=== PATIENT | female | born 1955 | race Caucasian/White ===

== ENCOUNTER 2023-03-11 07:20 | Outpatient (OUT) | payer MEDICARE, OTHER, SELFPAY ==
--- NOTE | 2023-03-11 | ECG_ITS ---
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
[2023-03-11 07:48] LABS: Estimated Average Glucose 123 mg/dL; Glycohemoglobin A1C 5.9 % (4.5-6.2)
--- NOTE | 2023-03-11 08:06 | CA_ITS ---
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1955 Requested By: DARREN ALDANA Order Number: [id number] Reading MD: DARREN ALDANA Interpretive Statements Predominant rhythm is sinus with average rate of 86 bpm Tachydardia - max rate of 192 bpm - 5,203 episodes of PSVT w/ longest duration of 8 beats - longest episode of 8min 51sec w/ rates of 115-133 bpm Bradycardia - min rate of 45 bpm - longest episode of 25min w/ rates 48-58 bpm Ventricular ectopy - 389 total (<1%) - 335 PVC - 54 couplets Patient triggered events: 5 - associated with rates of 132, 127, 125, 101 and 120 bpm - 2 associated with atrial bigeminy Impression: Predominant rhythm is sinus with average rate of 86 bpm Fastest rate of 192 and slowest rate of 45 bpm 335 PVC, 54 couplets Frequent episodes of PSVT w/ longest duration of 8 beats Electronically Signed On 04-02-2023 7:31:42 EDT by DARREN ALDANA
[2023-03-11 08:07] LABS: Chol HDL Ratio 2.5; Cholesterol 231 mg/dL (<=200); HDL Cholesterol 92 mg/dL (40-60); Triglycerides 119 mg/dL (<=150); VLDL CHOLESTEROL 23.8 mg/dL
--- NOTE | 2023-03-11 08:12 | XR_ITS ---
[address] [address] Patient Name: XAVIER NEGRON MRN: [id number] date: 1955 Sex: F Assigned Patient Location: CARD Current Patient Location: CARD Accession/Order Number: [id number] Exam Date: 03/11/2023 08:08 Report Date: 03/11/2023 08:48 At the request of: DARREN ALDANA Procedure: XR chest 2V EXAMINATION: XR chest 2V HISTORY: DYSPNEA ON EXERTION R06.09 COMPARISON: 08/13/22. TECHNIQUE: pa/lat FINDINGS: LUNGS: No significant pulmonary parenchymal abnormalities. VASCULATURE: No increased pulmonary vasculature. PLEURA: No pneumothorax, effusion, or pleural thickening. CARDIAC: No cardiomegaly or cardiac silhouette abnormality. MEDIASTINUM: No visible mass or adenopathy. Aortic atherosclerosis BONES: No fracture or visible bone lesion. OTHER: Negative. IMPRESSION: No acute cardiopulmonary process Electronically authenticated by: TENZIN GENTILE Date: 03/11/2023 08:48
[2023-03-11 11:11] LABS: Total Protein Urine Random 49.3 mg/dL (<=11.9)
[2023-03-11 11:12] LABS: Creatinine Urine Random 240.58 mg/dL (20.00-300.00)
== END 2023-03-11 07:21 | disposition home or self-care (01) ==
LOC: CARD 07:21
PROVIDERS: PCP Internal Medicine; Visit Provider Internal Medicine
DX: R06.09 Other forms of dyspnea (principal); R00.2 Palpitations; I10 Essential (primary) hypertension; R73.01 Impaired fasting glucose; E78.2 Mixed hyperlipidemia; I49.8 Other specified cardiac arrhythmias
CPT/HCPCS: 36415; 71046; 80061; 82570; 83036; 84156; 84443; 93005; 93242

== ENCOUNTER 2023-03-22 12:56 | Outpatient (OUT) | payer MEDICARE, OTHER, SELFPAY ==
--- NOTE | 2023-03-22 13:35 | CA_ITS ---
Patient Name Site Name XAVIER NEGRON [facility] Account No Medical Record Number Age Sex Date Time [id number] [facility]:[id number] F 03/22/2023 13:06 At the Request Of DARREN ALDANA ECHOCARDIOGRAM REPORT PROCEDURE: CA ECHO DOPPLER COMPLETE INDICATIONS: Palpitations, hypertension COMPARISON: None. DESCRIPTION: COMPLETE ECHOCARDIOGRAM Real-time transthoracic echocardiography with 2D, M-mode, spectral and color flow Doppler performed. QUALITY: Technical quality was good. LEFT VENTRICLE: Normal chamber size. Moderate concentric left ventricular hypertrophy. Normal systolic function. LV EF: Normal left ventricular ejection fraction, (>55%). DIASTOLIC: ATRIAL SEPTUM: Visually appears intact. LEFT ATRIUM: Normal chamber size. RIGHT ATRIUM: Normal chamber size. RIGHT VENTRICLE: Normal chamber size. Normal systolic function. TRICUSPID VALVE: Normal mobility and thickness. No stenosis with no regurgitation. MITRAL VALVE: Moderately thickened with decreased mobility. Mild mitral valve stenosis. Moderate mitral annular calcification. Mild mitral regurgitation. Mean gradient 4 mmHg. AORTIC VALVE: Normal trileaflet appearance. Mildly calcified aortic valve. Mildly diminished mobility. Doppler velocity suggests mild aortic valve stenosis. DVI 0.5, DEENA 1.6 cm2. Normal systolic function. No aortic regurgitation. AORTIC ROOT: Normal diameter and appearance. PULMONIC VALVE: Normal thickness and mobility. No stenosis. Trivial regurgitation. PERICARDIUM: No evidence of pericardial effusion. IVC: Collapses with inspirations. PLEURA: CONCLUSION: 1. Moderate concentric left ventricular hypertrophy. Normal left ventricular systolic function. LVEF is 55 to 60%. 2. Normal right ventricular size and systolic function. 3. Mild mitral valve stenosis and regurgitation. 4. Mild aortic valve stenosis. 5. No pericardial effusion. Adult Echocardiography Procedure Report Left Ventricle LVEDD (3.7 - 5.6 cm): 4.40 cm LVESD (2.2 - 4.0 cm): 2.70 cm LVIVS thickness (0.6 - 1.2 cm): 1.27 cm LVPW thickness (0.5 - 1.0 cm): 1.36 cm e': 0.05 m/s E - e': 26.89 LVOT Max Gradient: 3.78 mm[Hg] LVOT Area (cm2): 0.97 m/s Peak Velocity (LVOT): 0.97 m/s Mean Velocity (LVOT): 0.65 m/s LVOT Diameter 1.85 cm Left Atrium LA Volume Index (2D A2C): 32.17 ml/m2 Left Atrium Systolic Dimension: 4.26 cm Mitral Valve Right Ventricle Aorta AO Root Diam: 3.43 cm Aortic Valve AoV Area ([place]): 1.42 cm2, 1.42 cm2 AoV Area (VTI): 1.55 cm2, 1.55 cm2 Peak Velocity(Antegrade Flow): 1.85 m/s Peak Gradient(Antegrade Flow): 13.65 mm[Hg] Mean Velocity(Antegrade Flow): 1.29 m/s Mean Gradient(Antegrade Flow): 7.25 mm[Hg] Velocity Time Integral: 39.68 cm Tricuspid Valve Pulmonic Valve Peak Velocity: 1.06 m/s Peak Gradient: 5.11 mm[Hg], 3.96 mm[Hg] Right Atrium Right Atrium Systolic Pressure: 36.29 ml, 36.29 ml Dictated by: William Gaytan M.D. on 03/22/2023 at 17:59 Approved by: William Gaytan M.D. on 03/22/2023 at 18:05
== END 2023-03-22 12:57 | disposition home or self-care (01) ==
LOC: CARD 12:56
PROVIDERS: PCP Internal Medicine; Visit Provider Internal Medicine
DX: R00.2 Palpitations (principal); I10 Essential (primary) hypertension; R06.09 Other forms of dyspnea; I08.0 Rheumatic disorders of both mitral and aortic valves
CPT/HCPCS: 93306

== ENCOUNTER 2023-03-31 11:08 | Outpatient (OUT) | payer MEDICARE, OTHER, SELFPAY ==
[2023-03-31 12:06] LABS: Basophils Absolute Auto 0.1 10^3/uL (0.0-0.1); Basophils Percent Auto 0.6 % (0.2-2.0); Eosinophils Absolute Auto 0.2 10^3/uL (0.0-0.7); Eosinophils Percent Auto 2.3 % (0.9-7.0); Hematocrit 40.3 % (36.0-48.0); Hemoglobin 13.2 g/dL (12.0-16.0); Immature Granulocytes Abs Auto 0.02 10^3/uL (0.00-0.03); Immature Granulocytes Pct Auto 0.3 % (0.0-0.5); Lymphocytes Absolute Auto 1.8 10^3/uL (1.2-3.8); Lymphocytes Percent Auto 22.7 % (20.5-60.0); Mean Corpuscular HGB Conc 32.8 g/dL (29.9-35.2); Mean Corpuscular Hemoglobin 29.8 pg (26.7-34.0); Mean Platelet Volume 12.3 fL (9.5-13.5); Monocytes Absolute Auto 0.7 10^3/uL (0.3-0.8); Monocytes Percent Auto 9.3 % (1.7-12.0); Neutrophils Percent Auto 64.8 % (43.0-75.0); Platelet Count 250 10^3/uL (150-450); Red Blood Count 4.43 10^6/uL (4.20-5.40); Red Cell Distribution Width 12.9 % (11.0-15.0); White Blood Count 7.7 10^3/uL (4.0-11.0)
[2023-03-31 12:47] LABS: Erythrocyte Sedimentation Rate 23 mm/hr (<=30)
[2023-03-31 14:35] LABS: Alanine Aminotransferase 31 U/L (14-59); Albumin Globulin Ratio 0.9; Albumin Level 3.4 g/dL (3.4-5.0); Alkaline Phosphatase 72 U/L (46-116); Aspartate Amino Transferase 21 U/L (15-37); Bilirubin Direct 0.1 mg/dL (0.0-0.2); Bilirubin Total 0.4 mg/dL (0.2-1.0); Estimated GFR (African America 54 (>=60); Estimated GFR (Non-African Ame 45 (>=60); Globulin 3.8 g/dL; Total Protein 7.2 g/dL (6.4-8.2)
== END 2023-03-31 11:09 | disposition home or self-care (01) ==
LOC: LAB 11:08
PROVIDERS: PCP Internal Medicine; Visit Provider Internal Medicine Rheumatology
DX: M05.79 Rheumatoid arthritis with rheumatoid factor of multiple sites without organ or systems involvement (principal); Z79.899 Other long term (current) drug therapy
CPT/HCPCS: 36415; 80076; 82565; 85025; 85652

== ENCOUNTER 2023-04-02 14:56 | Outpatient (OUT) | payer MEDICARE, OTHER, SELFPAY ==
[2023-04-02 15:39] LABS: Thyroid Stimulating Hormone 3.396 uIU/mL (0.358-3.740)
== END 2023-04-02 14:57 | disposition home or self-care (01) ==
LOC: LAB 14:56
PROVIDERS: PCP Internal Medicine; Visit Provider Internal Medicine
DX: R00.0 Tachycardia, unspecified (principal); M05.79 Rheumatoid arthritis with rheumatoid factor of multiple sites without organ or systems involvement; Z79.899 Other long term (current) drug therapy
CPT/HCPCS: 36415; 84443

== ENCOUNTER 2023-06-01 06:34 | Outpatient (OUT) | payer MEDICARE, OTHER, SELFPAY ==
[2023-06-01 07:30] LABS: Basophils Percent Auto 0.6 % (0.2-2.0); Eosinophils Absolute Auto 0.2 10^3/uL (0.0-0.7); Eosinophils Percent Auto 3.6 % (0.9-7.0); Hematocrit 41.9 % (36.0-48.0); Hemoglobin 13.6 g/dL (12.0-16.0); Immature Granulocytes Abs Auto 0.02 10^3/uL (0.00-0.03); Immature Granulocytes Pct Auto 0.3 % (0.0-0.5); Lymphocytes Absolute Auto 1.7 10^3/uL (1.2-3.8); Lymphocytes Percent Auto 25.8 % (20.5-60.0); Mean Corpuscular HGB Conc 32.5 g/dL (29.9-35.2); Mean Corpuscular Hemoglobin 30.5 pg (26.7-34.0); Mean Corpuscular Volume 93.9 fL (81.0-99.0); Mean Platelet Volume 12.9 fL (9.5-13.5); Monocytes Absolute Auto 0.8 10^3/uL (0.3-0.8); Monocytes Percent Auto 11.2 % (1.7-12.0); Neutrophils Absolute Auto 3.9 10^3/uL (1.4-6.5); Neutrophils Percent Auto 58.5 % (43.0-75.0); Platelet Count 200 10^3/uL (150-450); Red Blood Count 4.46 10^6/uL (4.20-5.40); Red Cell Distribution Width 13.2 % (11.0-15.0); White Blood Count 6.7 10^3/uL (4.0-11.0)
[2023-06-01 07:40] LABS: Erythrocyte Sedimentation Rate 17 mm/hr (<=30)
[2023-06-01 08:33] LABS: Alanine Aminotransferase 26 U/L (14-59); Albumin Globulin Ratio 1.1; Albumin Level 3.6 g/dL (3.4-5.0); Alkaline Phosphatase 53 U/L (46-116); Aspartate Amino Transferase 18 U/L (15-37); Bilirubin Direct 0.1 mg/dL (0.0-0.2); Bilirubin Total 0.4 mg/dL (0.2-1.0); Estimated GFR (African America 52 (>=60); Estimated GFR (Non-African Ame 43 (>=60); Globulin 3.2 g/dL; Total Protein 6.8 g/dL (6.4-8.2)
== END 2023-06-01 06:35 | disposition home or self-care (01) ==
PROVIDERS: PCP Internal Medicine; Visit Provider Internal Medicine Rheumatology
DX: M05.79 Rheumatoid arthritis with rheumatoid factor of multiple sites without organ or systems involvement (principal); Z79.899 Other long term (current) drug therapy
CPT/HCPCS: 36415; 80076; 82565; 85025; 85652

== ENCOUNTER 2023-07-01 07:54 | Outpatient (OUT) | payer MEDICARE, OTHER, SELFPAY ==
--- NOTE | 2023-07-01 07:56 | CA_ITS ---
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1955 Requested By: DARREN ALDANA Order Number: [id number] Reading MD: DARREN ALDANA Interpretive Statements Predominant rhythm is sinus with average rate of 70 bpm Tachycardia - max rate of 157 bpm - 1166 episodes of PSVT with longest duration of 8 beats - longest episode of 5sec w/ rates between 108-118 bpm Bradycardia - min rate of 46 bpm - longest episode of 17min 8sec with rates between 46-54 bpm Ventricular ectopy - 465 PVC Patient triggered events: none Impression: Predominant rhythm is sinus with average rate of 70 bpm Fastest rate of 157 and slowest rate of 46 bpm 465 PVC Frequent PSVT w/ longest duration of 8 beats Electronically Signed On 07-14-2023 7:11:47 EDT by DARREN ALDANA
[2023-07-01 08:44] LABS: Thyroid Stimulating Hormone 2.321 uIU/mL (0.358-3.740)
== END 2023-07-01 07:55 | disposition home or self-care (01) ==
LOC: CARD 07:55
PROVIDERS: PCP Internal Medicine; Visit Provider Internal Medicine
DX: I47.10 Supraventricular tachycardia, unspecified (principal)
CPT/HCPCS: 36415; 84443; 93242

== ENCOUNTER 2023-07-26 15:16 | Outpatient (OUT) | payer MEDICARE, OTHER, SELFPAY ==
[2023-07-26 15:42] LABS: Basophils Percent Auto 0.5 % (0.2-2.0); Eosinophils Absolute Auto 0.4 10^3/uL (0.0-0.7); Eosinophils Percent Auto 4.5 % (0.9-7.0); Hematocrit 39.8 % (36.0-48.0); Immature Granulocytes Abs Auto 0.02 10^3/uL (0.00-0.03); Immature Granulocytes Pct Auto 0.3 % (0.0-0.5); Lymphocytes Percent Auto 25.1 % (20.5-60.0); Mean Corpuscular HGB Conc 32.7 g/dL (29.9-35.2); Mean Corpuscular Hemoglobin 30.1 pg (26.7-34.0); Mean Corpuscular Volume 92.1 fL (81.0-99.0); Mean Platelet Volume 12.2 fL (9.5-13.5); Neutrophils Absolute Auto 4.6 10^3/uL (1.4-6.5); Neutrophils Percent Auto 57.6 % (43.0-75.0); Platelet Count 223 10^3/uL (150-450); Red Blood Count 4.32 10^6/uL (4.20-5.40); Red Cell Distribution Width 12.8 % (11.0-15.0); White Blood Count 7.9 10^3/uL (4.0-11.0)
[2023-07-26 15:46] LABS: Erythrocyte Sedimentation Rate 19 mm/hr (<=30)
[2023-07-26 16:01] LABS: Alanine Aminotransferase 22 U/L (14-59); Albumin Globulin Ratio 0.9; Albumin Level 3.4 g/dL (3.4-5.0); Alkaline Phosphatase 58 U/L (46-116); Aspartate Amino Transferase 12 U/L (15-37); Bilirubin Direct <0.1 mg/dL (0.0-0.2); Bilirubin Total 0.2 mg/dL (0.2-1.0); Estimated GFR (African America 56 (>=60); Estimated GFR (Non-African Ame 46 (>=60); Globulin 3.6 g/dL
== END 2023-07-26 15:17 | disposition home or self-care (01) ==
LOC: LAB 15:20
PROVIDERS: PCP Internal Medicine; Visit Provider Internal Medicine Rheumatology
DX: M05.79 Rheumatoid arthritis with rheumatoid factor of multiple sites without organ or systems involvement (principal); Z79.899 Other long term (current) drug therapy
CPT/HCPCS: 36415; 80076; 82565; 85025; 85652

== ENCOUNTER 2023-08-17 11:36 | Outpatient (OUT) | payer MEDICARE, OTHER, SELFPAY ==
--- NOTE | 2023-08-17 11:59 | XR_ITS ---
[address] [address] Patient Name: XAVIER NEGRON MRN: [id number] date: 1955 Sex: F Assigned Patient Location: [facility] Current Patient Location: Accession/Order Number: [id number] Exam Date: 08/17/2023 11:54 Report Date: 08/18/2023 01:34 At the request of: DARREN ALDANA Procedure: XR foot RT min 3V PROCEDURE: XR foot RT min 3V HISTORY: Contusion Right Foot S90.31XA ; second and third toe injury COMPARISON: XR foot bilateral 06/18/2021 FINDINGS: BONES:Nondisplaced fractures involving the base of the second proximal phalanx and third proximal phalanx with intra-articular extension. Stable chronic changes and angulation/flexion of the toes. Moderate degenerative changes of the first tarsal-metatarsal joint. Large calcaneal plantar spur. SOFT TISSUES:No visible soft tissue swelling. EFFUSION:None visible. OTHER: Negative. XR/XR foot RT min 3V IMPRESSION: 1. Acute nondisplaced fractures of the second third proximal phalanges with extension into the proximal articular surfaces. 2. Grossly stable chronic degenerative changes. Electronically authenticated by: JERROD DICKSON Date: 08/18/2023 01:34
== END 2023-08-17 11:37 | disposition home or self-care (01) ==
LOC: RAD 11:38
PROVIDERS: PCP Internal Medicine; Visit Provider Internal Medicine
DX: S90.31XA Contusion of right foot, initial encounter (principal); S92.511A Displaced fracture of proximal phalanx of right lesser toe(s), initial encounter for closed fracture
CPT/HCPCS: 73630

== ENCOUNTER 2023-09-21 12:43 | Outpatient (OUT) | payer MEDICARE, OTHER, SELFPAY ==
--- OUTSIDE RECORDS SUMMARY | 2023-09-21 12:48 | XMS_ITS | CCD ---
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 [Hypo-osmolality and hyponatremia] Onset: 2 Episodic Fracture of lower limb (1 source) Nondisplaced fracture of proximal phalanx of right lesser toe(s), initial encounter for closed fracture Episodic Genitourinary symptoms and ill-defined conditions (3 sources) Genuine stress incontinence; Translations: [Stress incontinence (female) (male)] Chronic Hypertension with complications and secondary hypertension (11 sources) Hypertensive chronic kidney disease with stage 1 through stage 4 chronic kidney disease, or unspecified chronic kidney disease; Translations: [Benign hypertensive renal disease] Onset: 8 Chronic Immunizations and screening for infectious disease (7 sources) Raised antibody titer; Translations: [Contact with and (suspected) exposure to other viral communicable diseases] Onset: 3 Resolved: 1 Episodic Intestinal infection (6 sources) Enterocolitis due to Clostridium difficile, not specified as recurrent; Translations: [Clostridial gastroenteritis] Onset: 2 Episodic Joint disorders and dislocations; trauma-related (3 sources) 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; Translations: [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] Onset: 8 Chronic Menopausal disorders (3 sources) Primary ovarian failure; Translations: [Other primary ovarian failure] Onset: 7 Chronic Miscellaneous mental health disorders (3 sources) Primary insomnia; Translations: [Primary insomnia] Chronic Osteoarthritis (20 sources) Arthritis of left knee; Translations: [Unilateral primary osteoarthritis, left knee] Onset: 9 Resolved: 2 Chronic Osteoporosis (20 sources) Osteoporosis; Translations: [Other osteoporosis without current pathological fracture] Onset: 2 Resolved: 2 Chronic Other aftercare (20 sources) Patient encounter status; Translations: [Aftercare following joint replacement surgery] Chronic Other aftercare (10 sources) Aftercare following joint replacement surgery; Translations: [AFTERCARE FOLLOW JNT REPLACE SURG] Onset: 2 Resolved: 2 Chronic Other aftercare (20 sources) Long-term current use of drug therapy; Translations: [Other exterminator termite (current) drug therapy] Episodic Other aftercare (3 sources) Other fpc (current) drug therapy; Translations: [OTH GASTROENTEROLOGY MANAGER CURRENT DRUG THERAPY] Onset: 2 Resolved: 2 Episodic Other aftercare (3 sources) High risk drug monitoring status; Translations: [halfway (current) use of opiate analgesic] Episodic Other and ill-defined heart disease (1 source) Intracardiac thrombosis, not elsewhere classified; Translations: [Intracardiac thrombosis, not elsewhere classified] Onset: 3 Chronic Other bone disease and musculoskeletal deformities (3 sources) Other specified disorders of bone density and structure, left thigh; Translations: [Other specified disorders of bone density and structure, left thigh] Episodic Other circulatory disease (3 sources) Raynaud's disease; Translations: [Raynaud's syndrome without gangrene] Chronic Other circulatory disease (5 sources) Other disorder of circulatory system Episodic Other connective tissue disease (20 sources) Artificial knee joint present; Translations: [Presence of left artificial knee joint] Chronic Other connective tissue disease (20 sources) History of total knee arthroplasty; Translations: [Presence of left artificial knee joint] 03-02-2022 Chronic Other connective tissue disease (14 sources) Presence of left artificial knee joint; Translations: [Knee joint replacement] Onset: 2 Resolved: 2 Chronic Other connective tissue disease (1 source) Presence of unspecified artificial knee joint; Translations: [PRESENCE UNS ARTIFICIAL KNEE JOINT] Onset: 2 Chronic Other connective tissue disease (2 sources) Other specified soft tissue disorders Episodic Other connective tissue disease (1 source) Pain in left arm Episodic Other connective tissue disease (1 source) Personal history of other diseases of the musculoskeletal system and connective tissue Episodic Other connective tissue disease (3 sources) Enthesopathy; Translations: [Other enthesopathies, not elsewhere classified] Episodic Other connective tissue disease (3 sources) Tibialis tendinitis; Translations: [Posterior tibial tendinitis, left leg] Episodic Other connective tissue disease (3 sources) Ganglion cyst of left wrist; Translations: [Ganglion, left wrist] Episodic Other gastrointestinal disorders (3 sources) Irritable bowel syndrome with diarrhea; Translations: [Irritable bowel syndrome with diarrhea] Chronic Other gastrointestinal disorders (20 sources) Dysphagia; Translations: [Dysphagia, unspecified] Episodic Other gastrointestinal disorders (3 sources) Diarrhea; Translations: [Diarrhea, unspecified] Episodic Other hematologic conditions (1 source) Elevated erythrocyte sedimentation rate; Translations: [ELEVATED ERYTHROCYTE SED RATE] Onset: 3 Episodic Other hematologic conditions (3 sources) ESR raised; Translations: [Elevated erythrocyte sedimentation rate] Episodic Other injuries and conditions due to external causes (3 sources) History of fall; Translations: [History of falling] Episodic Other liver diseases (20 sources) Steatosis of liver; Translations: [Fatty (change of) liver, not elsewhere classified] Chronic Other liver diseases (5 sources) Fatty (change of) liver, not elsewhere classified; Translations: [Fatty (change of) liver, not elsewhere classified] Onset: 3 Chronic Other lower respiratory disease (20 sources) Dyspnea on exertion; Translations: [Other forms of dyspnea] Episodic Other lower respiratory disease (2 sources) Other forms of dyspnea Episodic Other nervous system disorders (20 sources) Carpal tunnel syndrome of left wrist; Translations: [Carpal tunnel syndrome, left upper limb] Chronic Other nervous system disorders (1 source) Carpal tunnel syndrome, left upper limb Chronic Other nervous system disorders (3 sources) Carpal tunnel syndrome; Translations: [Carpal tunnel syndrome, bilateral upper limbs] Chronic Other non-epithelial cancer of skin (3 sources) Basal cell carcinoma of nose; Translations: [Basal cell carcinoma of skin of nose] Episodic Other non-traumatic joint disorders (1 source) Pain in left shoulder Episodic Other non-traumatic joint disorders (1 source) Pain in left wrist Episodic Other non-traumatic joint disorders (3 sources) Other specified joint disorders, right ankle and foot; Translations: [Other specified joint disorders, right ankle and foot] Episodic Other nutritional; endocrine; and metabolic disorders (20 sources) Body mass index 30+ - obesity; Translations: [Obesity, unspecified] Onset: 7 Chronic Other nutritional; endocrine; and metabolic disorders (7 sources) Obesity, unspecified; Translations: [Obesity, unspecified classification, unspecified obesity type, unspecified whether serious comorbidity present] Chronic Other nutritional; endocrine; and metabolic disorders (20 sources) Obesity; Translations: [Obesity, unspecified] Chronic Other nutritional; endocrine; and metabolic disorders (20 sources) Obese class II; Translations: [Body mass index 37.0-37.9, adult] Onset: 7 Chronic Other nutritional; endocrine; and metabolic disorders (20 sources) Body mass index 40+ - severely obese; Translations: [Body Mass Index 40.0-44.9, adult] Onset: 6 Chronic Other nutritional; endocrine; and metabolic disorders (20 sources) Morbid obesity; Translations: [Morbid (severe) obesity due to excess calories] Chronic Other nutritional; endocrine; and metabolic disorders (7 sources) Morbid (severe) obesity due to excess calories; Translations: [Obesity, Class II, BMI 35-39.9] Chronic Other nutritional; endocrine; and metabolic disorders (2 sources) Body mass index (BMI) 37.0-37.9, adult Chronic Other nutritional; endocrine; and metabolic disorders (14 sources) Severe obesity; Translations: [Morbid (severe) obesity due to excess calories] Chronic Other nutritional; endocrine; and metabolic disorders (4 sources) Body mass index (BMI) 35.0-35.9, adult Chronic Other nutritional; endocrine; and metabolic disorders (8 sources) Obese class I; Translations: [Body mass index (BMI) 33.0-33.9, adult] Chronic Other nutritional; endocrine; and metabolic disorders (1 source) Body mass index (BMI) 33.0-33.9, adult Chronic Other screening for suspected conditions (not mental disorders or infectious disease) (11 sources) Patient encounter status; Translations: [Encounter for screening for malignant neoplasm of colon] 06-15-2019 Episodic Other skin disorders (4 sources) Disorder of the skin and subcutaneous tissue, unspecified Episodic Other skin disorders (2 sources) Localized swelling, mass and lump, right upper limb Episodic Other skin disorders (3 sources) Generalized hyperhidrosis; Translations: [Generalized hyperhidrosis] Episodic Other skin disorders (3 sources) Vesicular eczema of hands and/or feet; Translations: [Dyshidrosis [pompholyx]] Episodic Other upper respiratory disease (3 sources) Allergic rhinitis due to pollen; Translations: [Allergic rhinitis due to pollen] Chronic Residual codes; unclassified (11 sources) Sleep apnea; Translations: [Sleep apnea, unspecified] 03-02-2022 Chronic Residual codes; unclassified (3 sources) Sleep apnea, unspecified; Translations: [Obstructive sleep apnea (adult)(pediatric)] 03-03-2022 Chronic Residual codes; unclassified (20 sources) Obstructive sleep apnea syndrome; Translations: [Obstructive sleep apnea (adult) (pediatric)] Onset: 8 Chronic Residual codes; unclassified (10 sources) Obstructive sleep apnea (adult) (pediatric); Translations: [Obstructive sleep apnea (adult) (pediatric)] Chronic Residual codes; unclassified (2 sources) Continuous positive airway pressure ventilation treatment; Translations: [Dependence on other enabling machines and devices] Chronic Rheumatoid arthritis and related disease (20 sources) Rheumatoid arthritis of right wrist; Translations: [Rheumatoid arthritis with rheumatoid factor of right wrist without organ or systems involvement] Onset: 0 Chronic Spondylosis; intervertebral disc disorders; other back problems (20 sources) Cervical spondylosis without myelopathy; Translations: [Spondylosis without myelopathy or radiculopathy, cervical region] Chronic Substance-related disorders (6 sources) Tobacco user; Translations: [Nicotine dependence, cigarettes, in remission] Onset: 6 Resolved: 1 Chronic Superficial injury; contusion (2 sources) Contusion of right foot, initial encounter; Translations: [Abrasion, right lesser toe(s), initial encounter] Episodic Unclassified (1 source) CONTACT W/AND (SUSP) EXPOS COVID-19; Translations: [CONTACT W/AND (SUSP) EXPOS COVID-19] Onset: 2 Unclassified (1 source) Morbid (severe) obesity due to excess calories; Translations: [Morbid (severe) obesity due to excess calories] Onset: 4 Unclassified (1 source) Aftercare following joint replacement surgery; Translations: [Aftercare following joint replacement surgery] Onset: 3 Unclassified (1 source) Rheumatoid arthritis with rheumatoid factor of multiple sites without organ or systems involvement; Translations: [Rheumatoid arthritis with rheumatoid factor of multiple sites without organ or systems involvement] Onset: 3 Unclassified (1 source) Contusion of left upper arm, initial encounter; Translations: [Contusion of left upper arm, initial encounter] Onset: 3 Unclassified (1 source) Disorder of the skin and subcutaneous tissue, unspecified; Translations: [Disorder of the skin and subcutaneous tissue, unspecified] Onset: 3 Unclassified (1 source) Occlusion and stenosis of bilateral carotid arteries; Translations: [Occlusion and stenosis of bilateral carotid arteries] Onset: 3 Past or Other Problems Problem Classification Problem Date Documented Da te Episodic/Chronic Abdominal pain (4 sources) Unspecified abdominal pain; Translations: [Right lower quadrant pain] Onset: 05-14-2016 Episodic Acute bronchitis (3 sources) Acute bronchitis; Translations: [Acute bronchitis, unspecified] Onset: 08-20-2014 Episodic Allergic reactions (3 sources) Allergic contact dermatitis due to plants, except food; Translations: [Allergic contact dermatitis due to plants, except food] Onset: 03-25-2018 Episodic Bacterial infection; unspecified site (3 sources) Bacterial infectious disease; Translations: [Bacterial infection, unspecified, in conditions classified elsewhere and of unspecified site] Onset: 07-09-2017 Episodic Chronic kidney disease (8 sources) Chronic kidney disease; Translations: [CHRONIC KIDNEY DISEASE STAGE 3A] Onset: 08-20-2022 Complications of surgical procedures or medical care (9 sources) Infection following a procedure, other surgical site, initial encounter; Translations: [Postoperative infection] Onset: 03-15-2018 Resolved: 09-08-2022 Episodic Esophageal disorders (2 sources) Esophageal disorders Genitourinary symptoms and ill-defined conditions (1 source) Proteinuria, unspecified; Translations: [Proteinuria, unspecified] Onset: 02-03-2023 Episodic Joint disorders and dislocations; trauma-related (6 sources) Current tear of medial cartilage AND/OR meniscus of knee; Translations: [Peripheral tear of medial meniscus, current injury, left knee, initial encounter] Onset: 07-08-2018 Episodic Malaise and fatigue (4 sources) Other fatigue; Translations: [Fatigue] Onset: 08-20-2022 Resolved: 09-08-2022 Episodic Nausea and vomiting (3 sources) Nausea and vomiting; Translations: [Nausea with vomiting, unspecified] Resolved: 09-08-2022 Episodic Nonspecific chest pain (3 sources) Chest pain; Translations: [Other chest pain] Resolved: 11-30-2021 Episodic Other aftercare (3 sources) Encounter for other orthopedic aftercare; Translations: [Encounter for other orthopedic aftercare] Resolved: 11-30-2021 Episodic Other connective tissue disease (3 sources) Bicipital tenosynovitis; Translations: [Bicipital tenosynovitis] Onset: 05-22-2013 Episodic Other connective tissue disease (3 sources) Pain in right foot; Translations: [Pain in right foot] Resolved: 09-08-2022 Episodic Other connective tissue disease (3 sources) Impingement syndrome of left shoulder region; Translations: [Impingement syndrome of left shoulder] Resolved: 11-30-2021 Episodic Other connective tissue disease (3 sources) Nontraumatic rupture of rotator cuff of left shoulder; Translations: [Unspecified rotator cuff tear or rupture of left shoulder, not specified as traumatic] Onset: 05-22-2013 Episodic Other connective tissue disease (3 sources) Synovitis and tenosynovitis; Translations: [Synovitis and tenosynovitis, unspecified] Onset: 05-08-2015 Episodic Other gastrointestinal disorders (1 source) Diarrhea, unspecified; Translations: [DIARRHEA UNSPECIFIED] Onset: 08-20-2022 Episodic Other injuries and conditions due to external causes (3 sources) Other injury of unspecified body region, subsequent encounter; Translations: [Other injury of unspecified body region, subsequent encounter] Onset: 07-09-2017 Episodic Other non-traumatic joint disorders (1 source) Pain in left knee Onset: 11-20-2021 Resolved: 11-20-2021 Episodic Other non-traumatic joint disorders (9 sources) Shoulder joint pain; Translations: [Pain in joint, shoulder region] Onset: 05-22-2013 Resolved: 11-30-2021 Episodic Other non-traumatic joint disorders (3 sources) Arthralgia of the lower leg; Translations: [Pain in joint, lower leg] Onset: 08-12-2018 Episodic Other non-traumatic joint disorders (3 sources) Pain in wrist; Translations: [Pain in left wrist] Resolved: 11-30-2021 Episodic Other non-traumatic joint disorders (3 sources) Arthralgia of the ankle and/or foot; Translations: [Pain in unspecified ankle and joints of unspecified foot] Onset: 01-21-2015 Episodic Other skin disorders (3 sources) Localized swelling, mass and lump, left upper limb; Translations: [Localized swelling, mass and lump, left upper limb] Onset: 06-21-2023 Episodic Other skin disorders (1 source) Generalized hyperhidrosis; Translations: [GENERALIZED HYPERHIDROSIS] Onset: 08-20-2022 Episodic Other upper respiratory infections (3 sources) Acute sinusitis; Translations: [Acute sinusitis, unspecified] Onset: 08-29-2013 Episodic Otitis media and related conditions (3 sources) Otitis media; Translations: [Otitis media, unspecified, right ear] Onset: 08-29-2013 Episodic Residual codes; unclassified (1 source) Acquired absence of both cervix and uterus; Translations: [ACQUIRED ABSENCE BOTH CERVIX AND UTERUS] Onset: 05-26-2022 Episodic Screening and history of mental health and substance abuse codes (4 sources) Personal history of nicotine dependence; Translations: [History of tobacco use] Onset: 06-30-2017 Episodic Skin and subcutaneous tissue infections (6 sources) Cellulitis and abscess of trunk; Translations: [Cellulitis and abscess of trunk] Onset: 07-09-2017 Episodic Spondylosis; intervertebral disc disorders; other back problems (3 sources) Low back pain; Translations: [Low back pain, unspecified] Resolved: 05-21-2020 Episodic Sprains and strains (4 sources) Strain of muscle, fascia and tendon of other parts of biceps, left arm, initial encounter; Translations: [Strain of muscle of right shoulder] Onset: 03-01-2019 Episodic Unclassified (1 source) Paroxysmal sinus tachycardia I47.19 Results Test Name Value Interpretation Reference Range Facility XR wrist LT min 3V*on 2022 XR wrist LT min 3V* [facility] [employer] Other XR wrist LT min 3V* [facility] [employer] Other XR wrist LT min 3V* [address] [place] [address] [employer] Other XR wrist LT min 3V* [place] [address] [facility] [employer] Other XR wrist LT min 3V* XRay Report [facility] [employer] Other XR wrist LT min 3V* Signed [facility] Other XR wrist LT min 3V* Patient: Reba Gregory MR#: [id number] [facility] Other XR wrist LT min 3V* : 1955 Acct:[id number] [facility] Other XR wrist LT min 3V* Age/Sex: 67 / F ADM Date: 03/03/23 [facility] Other XR wrist LT min 3V* Loc: [facility] Room: [facility] Other XR wrist LT min 3V* Attending Dr: Kiana Munson MD [facility] Other XR wrist LT min 3V* Copies to: Kiana Munson MD [facility] Other XR wrist LT min 3V* Ordering Provider: Kiana Munson MD [facility] Other XR wrist LT min 3V* Date of Service: 03/03/23 [facility] Other XR wrist LT min 3V* XR/XR wrist LT min 3V*: Wrist arthritis;Mass of left hand [facility] Other XR wrist LT min 3V* LEFT WRIST - 4 views [facility] Other XR wrist LT min 3V* CLINICAL HISTORY: Left wrist pain for months. Possible cyst ulnar aspect of left hand. [facility] Other XR wrist LT min 3V* COMPARISON: None [facility] Other XR wrist LT min 3V* FINDINGS: [facility] Other XR wrist LT min 3V* No focal soft tissue abnormality is seen. No acute bony process is noted. There is widening of the [facility] Other XR wrist LT min 3V* scapholunate space with SLAC wrist deformity. Cystic changes are noted involving the capitate and [facility] Other XR wrist LT min 3V* hamate bones. No bony erosions. Moderate degenerative changes are noted involving the CMC joint of [facility] Other XR wrist LT min 3V* the thumb. [facility] Other XR wrist LT min 3V* XR/XR wrist LT min 3V* [facility] Other XR wrist LT min 3V* IMPRESSION: [employer] Other XR wrist LT min 3V* WIDENING OF THE SCAPHOLUNATE SPACE WITH SLAC WRIST DEFORMITY. NO ACUTE BONY PROCESS. [facility] Other XR wrist LT min 3V* DEGENERATIVE CHANGES, WORST AT THE CMC JOINT OF THE THUMB. [facility] Other XR wrist LT min 3V* Impression dictated by: Dave Espana Jr., D.OShannon03/03/2023 11:50 AM [facility] Other XR wrist LT min 3V* Dictation Location: [facility]--12 [facility] Other XR wrist LT min 3V* Transcribed By: PWS 03/03/23 1150 [facility] Other XR wrist LT min 3V* Dictated By: Dave Espana Jr, DO 03/03/23 1147 [facility] Other XR wrist LT min 3V* Signed By: [facility] Other XR wrist LT min 3V* 03/03/23 1150 No rt [employer] Other XR wrist LT min 3V* [facility] [place] [address] [place] [address] XRay Report Signed Patient: Reba Gregory MR#: [id number] : 1955 Acct:[id number] Age/Sex: 67 / F ADM Date: 03/03/23 [place] [facility] [place] [facility] Attending Dr: Kiana Munson MD Copies to: Kiana Munson MD Ordering Provider: Kiana Munson MD Date of Service: 03/03/23 XR/XR wrist LT min 3V*: Wrist arthritis;Mass of left hand LEFT WRIST - 4 views CLINICAL HISTORY: Left wrist pain for months. Possible cyst ulnar aspect of left hand. COMPARISON: None FINDINGS: No focal soft tissue abnormality is seen. No acute bony process is noted. There is widening of the scapholunate space with SLAC wrist deformity. Cystic changes are noted involving the capitate and hamate bones. No bony erosions. Moderate degenerative changes are noted involving the CMC joint of the thumb. XR/XR wrist LT min 3V* IMPRESSION: WIDENING OF THE SCAPHOLUNATE SPACE WITH SLAC WRIST DEFORMITY. NO ACUTE BONY PROCESS. DEGENERATIVE CHANGES, WORST AT THE CMC JOINT OF THE THUMB. Impression dictated by: Dave Espana Jr., D.OShannon03/03/2023 11:50 AM Dictation Location: [place] [address] Transcribed By: [facility] 03/03/23 1150 Dictated By: Dave Espana Jr, DO 03/03/23 1147 Signed By: 03/03/23 1150 Normal [facility] XR knee LT 2Von 02-17-2023 XR knee LT 2V [facility] [place] [address] [place] [address] XRay Report Signed Patient: Reba Gregory MR#: [id number] : 1955 Acct:[id number] Age/Sex: 67 / F ADM Date: 02/17/23 [place] [facility] [place]: [facility] Attending Dr: Nabor Nelson II, MD Copies to: Nabor Nelson MD Ordering Provider: Nabor Nelson MD Date of Service: 02/17/23 XR/XR knee LT 2V: Aftercare following joint replacement surgery;Presence of le 2 views left knee plain film COMPARISON: 05/28/2022 HISTORY: Status post left total knee arthroplasty ACUTE FINDINGS: None DEGENERATIVE CHANGE: Unremarkable SOFT TISSUE FINDINGS: Unremarkable JOINT EFFUSION: None POSTOP CHANGES: No hardware failure or loosening. BONE MINERALIZATION: Adequate XR/XR knee LT 2V IMPRESSION: Stable left knee arthroplasty Impression dictated by: Rome Guerra M.D.02/17/2023 1:58 PM Dictation Location: [facility]--03 Transcribed By: [facility] 02/17/23 1358 Dictated By: Rome Guerra DO 02/17/23 1357 Signed By: 02/17/23 1358 [facility] XR knee LT 2V [facility] [employer] Other XR knee LT 2V [facility] [employer] Other XR knee LT 2V [address] [place] [address] [employer] Other XR knee LT 2V [address] [employer] Other XR knee LT 2V XRay Report [facility] [employer] Other XR knee LT 2V Signed [facility] Other XR knee LT 2V Patient: Reba Gregory MR#: [id number] [place] [employer] Other XR knee LT 2V : 1955 Acct:[id number] [facility] Other XR knee LT 2V Age/Sex: 67 / F ADM Date: 02/17/23 [facility] Other XR knee LT 2V [place] [facility] [place]: [facility] Other XR knee LT 2V Attending Dr: Nabor Nelson II, MD [facility] Other XR knee LT 2V Copies to: Nabor Nelson MD [facility] Other XR knee LT 2V Ordering Provider: Nabor Nelson MD [facility] Other XR knee LT 2V Date of Service: 02/17/23 [facility] Other XR knee LT 2V XR/XR knee LT 2V: Aftercare following joint replacement surgery;Presence [facility] Other XR knee LT 2V of le [facility] Other XR knee LT 2V 2 views left knee plain film [facility] Other XR knee LT 2V COMPARISON: 05/28/2022 [facility] Other XR knee LT 2V HISTORY: Status post left total knee arthroplasty [facility] Other XR knee LT 2V ACUTE FINDINGS: None [facility] [employer] Other XR knee LT 2V DEGENERATIVE CHANGE: Unremarkable [facility] Other XR knee LT 2V SOFT TISSUE FINDINGS: Unremarkable [facility] Other XR knee LT 2V JOINT EFFUSION: None N [employer] Other XR knee LT 2V POSTOP CHANGES: No hardware failure or loosening. [facility] Other XR knee LT 2V BONE MINERALIZATION: Adequate [facility] Other XR knee LT 2V XR/XR knee LT 2V [facility] Other XR knee LT 2V IMPRESSION: Stable left knee arthroplasty [facility] Other XR knee LT 2V Impression dictated by: Rome Guerra M.D.02/17/2023 1:58 PM [employer] [facility] Other XR knee LT 2V Dictation Location: [facility] [employer] [facility] Other XR knee LT 2V Transcribed By: PWS 02/17/23 [facility] Other XR knee LT 2V Dictated By: Rome Guerra DO 02/17/23 [facility] Other XR knee LT 2V Signed By: [facility] Other XR knee LT 2V 02/17/23 [facility] [employer] Other Automated epithelial cells c ount in urine sediment (number/area)Ordered By: Nabor Wilson on 02-03-2023 Epithelial cells Auto (Urine sed) [#/Area] 0-1 [HPF] 0-2 [facility] Automated erythrocytes count in urine sediment (number/area)Ordered By: Nabor Wilson on 02-03-2023 RBC Auto (Urine sed) [#/Area] 0-1 [HPF] 0-4 [facility] Automated leukocytes count i n urine sediment (number/area)Ordered By: Nabor Wilson on 02-03-2023 WBC Auto (Urine sed) [#/Area] 0-1 [HPF] 0-4 [facility] Automated urine hyaline cast s count (number/volume)Ordered By: Nabor Wilson on 02-03-2023 Hyaline casts Auto (U) [#/Vol] None seen [LPF] 0-1 [facility] Bilirubin Test strip Ql (U)O rdered By: Nabor Wilson on 02-03-2023 Bilirubin Ql (U) Negative Negative [facility] Calcium [Mass/volume] in 24 hour UrineOrdered By: Nabor Wilson on 02-03-2023 Calcium (24H U) [Mass/Vol] 1.1 mg/dL Not Estab. [facility] Calcium/Creatinine [Mass Rat io] in UrineOrdered By: Nabor Wilson on 02-03-2023 Calcium/Creatinine (U) [Mass ratio] 24 mg/g creat [address] Comment on above: Performed at: [address] Director: Matty Diaz PhD, Phone: [phone] Color Auto (U)Ordered By: Anne Wilson on 02-03-2023 Color (U) Yellow Yellow [facility] Creatinine [Mass/volume] in UrineOrdered By: Nabor Wilson on 02-03-2023 Creatinine (U) [Mass/Vol] 46.2 mg/dL Not Estab. [facility] Dipstick and Microscopicon 0 02-03-2023 Appearance (U) Clear Normal Clear [facility] Comment on above: Order Comment: Name Collection Type:: Clean-Voided Midstream Performed By: #### A DDONUAPLUS ####[place] [id number] [facility]#### UR CA CREAT RAT ####[facility] , Bacteria,Urine None Seen Normal None Seen [facility] Comment on above: Order Comment: Name Collection Type:: Clean-Voided Midstream Performed By: #### A DDONUAPLUS ####[place] [id number] [facility]#### UR CA CREAT RAT ####[facility] , Bilirubin,Urine Negative Normal Negative [facility] Comment on above: Order Comment: Name Collection Type:: Clean-Voided Midstream Performed By: #### A DDONUAPLUS ####[address]#### UR CA CREAT RAT ####[facility] , Color (U) Yellow Normal Yellow [facility] Comment on above: Order Comment: Name Collection Type:: Clean-Voided Midstream Performed By: #### A DDONUAPLUS ####[place] [id number] [facility]#### UR CA CREAT RAT ####[facility] , Glucose Ql (U) Normal Normal Normal [facility] Comment on above: Order Comment: Name Collection Type:: Clean-Voided Midstream Performed By: #### A DDONUAPLUS ####[place] [id number] [facility]#### UR CA CREAT RAT ####[facility] , Hyaline Casts,Urine None Seen Normal 0-1 [facility] Comment on above: Order Comment: Name Collection Type:: Clean-Voided Midstream Result Comment: PERF ORMED BY: [facility] [address] [place] [address] PATHOLOGIST SPORTS MEDICINE COORDINATOR ADAIR MARK M.D. Performed By: #### A DDONUAPLUS ####[address]#### UR CA CREAT RAT ####[facility] , Ketones Ql (U) Negative Normal Negative [facility] Comment on above: Order Comment: Name Collection Type:: Clean-Voided Midstream Performed By: #### A DDONUAPLUS ####[address]#### UR CA CREAT RAT ####[facility] , Leukocyte esterase Test strip Ql (U) Negative Normal Negative [facility] Comment on above: Order Comment: Name Collection Type:: Clean-Voided Midstream Performed By: #### A DDONUAPLUS ####[address]#### UR CA CREAT RAT ####[facility] , Nitrite,Urine Negative Normal Negative [facility] Comment on above: Order Comment: Name Collection Type:: Clean-Voided Midstream Performed By: #### A DDONUAPLUS ####[address]#### UR CA CREAT RAT ####[facility] , Occult Blood,Urine Negative Normal Negative [facility] Comment on above: Order Comment: Name Collection Type:: Clean-Voided Midstream Performed By: #### A DDONUAPLUS ####[address]#### UR CA CREAT RAT ####[facility] , pH (U) 5.5 [pH] Normal 5.0-9.0 [facility] Comment on above: Order Comment: Name Collection Type:: Clean-Voided Midstream Performed By: #### A DDONUAPLUS ####[address]#### UR CA CREAT RAT ####[facility] , Protein,Urine Negative Normal Negative [facility] Comment on above: Order Comment: Name Collection Type:: Clean-Voided Midstream Performed By: #### A DDONUAPLUS ####[address]#### UR CA CREAT RAT ####[facility] , RBC LM.HPF (Urine sed) [#/Area] 0 /[HPF] Normal 0-4 [facility] Comment on above: Order Comment: Name Collection Type:: Clean-Voided Midstream Performed By: #### A DDONUAPLUS ####[address]#### UR CA CREAT RAT ####[facility] , Specificy [place],Urine 1.010 Normal 1.001-1.030 [facility] Comment on above: Order Comment: Name Collection Type:: Clean-Voided Midstream Performed By: #### A DDONUAPLUS ####[address]#### UR CA CREAT RAT ####[facility] , Squamous Epithelial Cell,Urine 0-1 Normal 0-2 [facility] Comment on above: Order Comment: Name Collection Type:: Clean-Voided Midstream Performed By: #### A DDONUAPLUS ####[address]#### UR CA CREAT RAT ####[facility] , Urobilinogen,Urine Normal Normal Normal [facility] Comment on above: Order Comment: Name Collection Type:: Clean-Voided Midstream Performed By: #### A DDONUAPLUS ####[address]#### UR CA CREAT RAT ####[facility] , WBC LM.HPF (Urine sed) [#/Area] 0 /[HPF] Normal 0-4 [facility] Comment on above: Order Comment: Name Collection Type:: Clean-Voided Midstream Performed By: #### A DDONUAPLUS ####[place] [id number] [address]#### UR CA CREAT RAT ####[facility] , Ketones Auto test strip (U) [Mass/Vol]Ordered By: Nabor Wilson on 02-03-2023 Ketones (U) [Mass/Vol] Negative Negative [facility] Nitrite Test strip Ql (U)Ord ered By: Nabor Wilson on 02-03-2023 Nitrite Ql (U) Negative Negative [facility] Protein Auto test strip (U) [Mass/Vol]Ordered By: Nabor Wilson on 02-03-2023 Protein (U) [Mass/Vol] Negative Negative [facility] Specific gravity Auto test s trip (U) [Rel density]Ordered By: Nabor Wilson on 02-03-2023 Specific gravity (U) [Rel density] 1.010 1.001-1.030 [facility] Ur Calcium/Creatinine Ratioo n 02-03-2023 Calcium, Urine 1.1 mg/dL Normal Not Estab. [facility] Comment on above: Performed By: #### A DDONUAPLUS ####[address]#### UR CA CREAT RAT ####[facility] , Creatinine, Urine 46.2 mg/dL Normal Not Estab. [facility] Comment on above: Performed By: #### A DDONUAPLUS ####[place] [address] [place]#### UR CA CREAT RAT ####[facility] , Ur Calcium/Creatinine Ratio 24 Low 29-2 [facility] Comment on above: Result Comment: Perf ormed at: CB - [facility] [address] [id number] Director Social Service: Matty Diaz PhD, Phone: [phone] PERFORMED BY: [facility] [address] [place] [address] PATHOLOGIST SPORTS MEDICINE COORDINATOR ADAIR MARK M.D. Performed By: #### A DDONUAPLUS ####[facility] [id number] [place] [id number] [facility]#### UR CA CREAT RAT ####[facility] , Urine bacteria detection by automated methodOrdered By: Nabor Wilson on 02-03-2023 Bacteria Auto Ql (U) None seen None Seen [facility] Urine clarity by refractomet ry automatedOrdered By: Nabor Wilson on 02-03-2023 Clarity Refractometry automated (U) Clear Clear [facility] Urine glucose measurement by automated test strip (mass/volume)Ordered By: Nabor Wilson on 02-03-2023 Glucose Auto test strip (U) [Mass/Vol] Normal mg/dL Normal [facility] Urine hemoglobin detection b y automated test stripOrdered By: Nabor Wilson on 02-03-2023 Hemoglobin Auto test strip Ql (U) Negative Negative [facility] Urine leukocyte esterase det ection by automated test stripOrdered By: Nabor Wilson on 02-03-2023 Leukocyte esterase Auto test strip Ql (U) Negative Negative [facility] Urobilinogen Auto test strip (U) [Mass/Vol]Ordered By: Nabor Wilson on 02-03-2023 Urobilinogen (U) [Mass/Vol] Normal mg/dL Normal [facility] pH Auto test strip (U)Ordere d By: Nabor Wilson on 02-03-2023 pH (U) 5.5 [pH] 5.0-9.0 [facility] C3 and C4 COMPLEMENTon 01-22 Complement C3, Serum 147 mg/dL Normal 82-167 [facility] Comment on above: Performed By: #### C SUITE #### [facility] [address] [place] [address] [address] Agueda Wiley Complement C4, Serum 29 mg/dL Normal 12-38 [facility] Comment on above: Performed By: #### C SUITE #### [facility] [address] [place] [address] [address] Agueda Wiley CBC AUTO DIFFon 01-21-2023 BASO # 0.1 103/ul Normal 0.0-0.1 [facility] Comment on above: Performed By: #### C MIKKI, LIVER #### [facility] [address] [place] [address] Dr. Agueda Wiley Basophils/100 WBC (Bld) 0.6 % Normal 0.2-2.0 [facility] Comment on above: Performed By: #### C MIKKI, LIVER #### [facility] [address] [place] [address] Dr. Agueda Wiley EO # 0.2 103/ul Normal 0.0-0.7 [facility] Comment on above: Performed By: #### C MIKKI, LIVER #### [facility] [address] [place] [address] Dr. Agueda Wiley Eosinophils/100 WBC (Bld) 1.7 % Normal 0.9-7.0 [facility] Comment on above: Performed By: #### Gila KAYE, LIVER #### [facility] [address] [place] [address] Dr. Agueda Wiley Erythrocyte distribution width (RBC) [Ratio] 12.4 % Normal 11.0-15.0 [facility] Comment on above: Performed By: #### Gila KAYE, LIVER #### [facility] [address] [place] [address] Dr. Agueda Wiley Hematocrit (Bld) [Volume fraction] 44.0 % Normal 36.0-48.0 [facility] Comment on above: Performed By: #### C MIKKI, LIVER #### [facility] [address] [place] [address] Dr. Agueda Wiley Hemoglobin (Bld) [Mass/Vol] 14.2 g/dL Normal 12.0-16.0 [facility] Comment on above: Performed By: #### C MIKKI, LIVER #### [facility] [address] [place] [address] Dr. Agueda Wiley IG # 0.03 10e3/ul Normal 0.00-0.03 [facility] Comment on above: Performed By: #### C MIKKI, LIVER #### [facility] [address] [address] [address] Agueda Wiley IG % 0.3 % Normal 0.0-0.5 [facility] Comment on above: Performed By: #### C MIKKI, LIVER #### [facility] [address] [place] [address] [address] Agueda Wiley LYMPH # 2.2 103/ul Normal 1.2-3.8 [facility] Comment on above: Performed By: #### C MIKKI, LIVER #### [facility] [address] [place] [address] Dr. Agueda Wiley Lymphocytes/100 WBC (Bld) 21.1 % Normal 20.5-60.0 [facility] Comment on above: Performed By: #### C MIKKI, LIVER #### [facility] [address] [place] [address] Dr. Agueda Wiley MANUAL DIFF REQ NO Normal [facility] Comment on above: Performed By: #### C MIKKI, LIVER #### [facility] [address] [place] [address] Dr. Agueda Wiley MCH (RBC) [Entitic mass] 29.8 pg Normal 26.7-34.0 [facility] Comment on above: Performed By: #### C MIKKI, LIVER #### [facility] [address] [place] [address] Dr. Agueda Wiley MCHC (RBC) [Mass/Vol] 32.3 g/dL Normal 29.9-35.2 [facility] Comment on above: Performed By: #### C MIKKI, LIVER #### [facility] [address] [place] [address] Dr. Agueda Wiley MCV (RBC) [Entitic vol] 92.2 fL Normal 81.0-99.0 [facility] Comment on above: Performed By: #### C MIKKI, LIVER #### [facility] [address] [place] [address] Dr. Agueda Wiley MONO # 1.0 103/ul Critically high 0.3-0.8 [facility] Comment on above: Performed By: #### C MIKKI, LIVER #### [facility] [address] [address] [address] Agueda Wiley Monocytes/100 WBC (Bld) 9.2 % Normal 1.7-12.0 [facility] Comment on above: Performed By: #### C MIKKI, LIVER #### [facility] [address] [place] [address] Dr. Agueda Wiley NEUT # 7.0 103/ul Critically high 1.4-6.5 [facility] Comment on above: Performed By: #### C MIKKI, LIVER #### [facility] [address] [place] [address] Dr. Agueda Wiley Neutrophils/100 WBC (Bld) 67.1 % Normal 43.0-75.0 [facility] Comment on above: Performed By: #### C MIKKI, LIVER #### [facility] [address] [place] [address] Dr. Agueda Wiley Platelet mean volume (Bld) [Entitic vol] 11.6 fL Normal 9.5-13.5 [facility] Comment on above: Performed By: #### C MIKKI, LIVER #### [facility] [address] [place] [address] Dr. Agueda Wiley PLT 289 103/ul Normal 150-450 [facility] Comment on above: Performed By: #### C MIKKI, LIVER #### [facility] [address] [place] [address] Dr. Agueda Wiley RBC 4.77 106/ul Normal 4.20-5.40 [facility] Comment on above: Performed By: #### C MIKKI, LIVER #### [facility] [address] [place] [address] Dr. Agueda Wiley WBC 10.5 103/ul Normal 4.0-11.0 [facility] Comment on above: Performed By: #### C MIKKI, LIVER #### [facility] [address] [place] [address] Dr. Agueda Wiley CREATININEon 01-21-2023 Creatinine [Mass/Vol] 1.19 mg/dL Critically high 0.55-1.02 [facility] Comment on above: Performed By: #### C MIKKI, LIVER, CRP #### [facility] [address] [place] [address] Dr. Agueda Wiley EGFR-AF GUAMANIAN 55 mL/min/1.73m2 Critically low >=60 [facility] Comment on above: Performed By: #### C MIKKI, LIVER, CRP #### [facility] [address] [place] [address] Dr. Agueda Wiley EGFR-NON AF GUAMANIAN 45 mL/min/1.73m2 Critically low >=60 [facility] Comment on above: Performed By: #### C MIKKI, LIVER, CRP #### [facility] [address] [place] [address] Dr. Agueda Wiley CRPon 01-21-2023 CRP [Mass/Vol] mg/L Normal <=1.0 [facility] Comment on above: Performed By: #### C MIKKI, LIVER, CRP #### [facility] [address] [place] [address] Dr. Agueda Wiley LIVER PROFILEon 01-21-2023 Albumin [Mass/Vol] 3.5 g/dL Normal 3.4-5.0 [facility] Comment on above: Performed By: #### C MIKKI, LIVER, CRP #### [facility] [address] [place] [address] Dr. Agueda Wiley Albumin/Globulin [Mass ratio] 0.8 {ratio} Normal [facility] Comment on above: Performed By: #### C MIKKI, LIVER, CRP #### [facility] [address] [place] [address] Dr. Agueda Wiley ALP [Catalytic activity/Vol] 87 U/L Normal 46-116 [facility] Comment on above: Performed By: #### C MIKKI, LIVER, CRP #### [facility] [address] [place] [address] Dr. Agueda Wiley ALT [Catalytic activity/Vol] 33 U/L Normal 14-59 [facility] Comment on above: Performed By: #### C MIKKI, LIVER, CRP #### [facility] [address] [address] [address] Agueda Wiley AST [Catalytic activity/Vol] 22 U/L Normal 15-37 [facility] Comment on above: Performed By: #### C MIKKI, LIVER, CRP #### [facility] [address] [address] [address] Agueda Wiley BILI, CONJUGATED 0.1 mg/dL Normal 0.0-0.[address] [facility] Comment on above: Performed By: #### C MIKKI, LIVER, CRP #### [facility] [address] [address] [address] Agueda Wiley Bilirubin [Mass/Vol] 0.4 mg/dL Normal 0.2-1.0 [facility] Comment on above: Performed By: #### C MIKKI, LIVER, CRP #### [facility] [address] [place] [address] Dr. Agueda Wiley Globulin (S) [Mass/Vol] 4.2 g/dL Normal [facility] Comment on above: Performed By: #### C MIKKI, LIVER, CRP #### [facility] [address] [address] [address] Agueda Wiley Protein [Mass/Vol] 7.7 g/dL Normal 6.4-8.2 [facility] Comment on above: Performed By: #### C MIKKI, LIVER, CRP #### [facility] [address] [address] [address] Agueda Wiley [facility] 26 mm/hr Normal <=30 [facility] Comment on above: Performed By: #### A NAIFA #### [facility] [address] [address] [address] Agueda Wiley UA RANDOM W/MICROSCOPICon BACTERIA TRACE Abnormal NONE SEEN [facility] Comment on above: Performed By: #### C MIKKI, LIVER #### [facility] [address] [address] [address] Agueda Wiley Bilirubin Ql (U) Negative Normal NEGATIVE [facility] Comment on above: Performed By: #### C MIKKI, LIVER #### [facility] [address] [address] [address] Agueda Wiley CAST NONE SEEN Normal NONE SEEN [facility] Comment on above: Performed By: #### C MIKKI, LIVER #### [facility] [address] [address] [address] Agueda Wiley Clarity (U) CLEAR Normal CLEAR [facility] Comment on above: Performed By: #### C MIKKI, LIVER #### [facility] [address] [place] [address] Dr. Agueda Wiley Color (U) YELLOW Normal YELLOW [facility] Comment on above: Performed By: #### C MIKKI, LIVER #### [facility] [address] [place] [address] Dr. Agueda Wiley Crystals LM Nom (Urine sed) NONE SEEN Normal NONE SEEN [facility] Comment on above: Performed By: #### C MIKKI, LIVER #### [facility] [address] [place] [address] Dr. Agueda Wiley Epithelial cells LM Ql (Urine sed) FEW Abnormal NONE SEEN /RARE [facility] Comment on above: Performed By: #### C MIKKI, LIVER #### [facility] [address] [place] [address] Dr. Agueda Wiley Glucose Ql (U) Negative Normal NEGATIVE [facility] Comment on above: Performed By: #### C MIKKI, LIVER #### [facility] [address] [place] [address] Dr. Agueda Wiley Hemoglobin Ql (U) Negative Normal NEGATIVE [facility] Comment on above: Performed By: #### C MIKKI, LIVER #### [facility] [address] [place] [address] Dr. Agueda Wiley Ketones Ql (U) Negative Normal NEGATIVE [facility] Comment on above: Performed By: #### C MIKKI, LIVER #### [facility] [address] [place] [address] Dr. Agueda Wiley LEUKOCYTES Negative Normal NEGATIVE [facility] Comment on above: Performed By: #### C MIKKI, LIVER #### [facility] [address] [place] [address] Dr. Agueda Wiley MUCOUS MODERATE Abnormal NONE SEEN [facility] Comment on above: Performed By: #### C MIKKI, LIVER #### [facility] [address] [place] [address] Dr. Agueda Wiley Nitrite Ql (U) Negative Normal NEGATIVE [facility] Comment on above: Performed By: #### C MIKKI, LIVER #### [facility] [address] [place] [address] Dr. Agueda Wiley pH (U) 5.0 [pH] Normal 5-9 [facility] Comment on above: Performed By: #### C MIKKI, LIVER #### [facility] [address] [place] [address] Dr. Agueda Wiley RBC 2-5 Abnormal 0-2 [facility] Comment on above: Performed By: #### Gila KAYE, LIVER #### [facility] [address] [place] [address] Dr. Agueda Wiley SPEC GRAVITY >=1.030 Abnormal 1.005-<=1.025 [facility] Comment on above: Performed By: #### C MIKKI, LIVER #### [facility] [address] [place] [address] Dr. Agueda Wiley UA PROTEIN 100 mg/dl Abnormal NEGATIVE/ TRACE [facility] Comment on above: Performed By: #### C MIKKI, LIVER #### [facility] [address] [place] [address] Dr. Agueda Wiley Urobilinogen Qn (U) 1.0 {[place]'U}/dL Normal 0.2 - 1. 0 [facility] Comment on above: Performed By: #### C MIKKI, LIVER #### [facility] [address] [place] [address] Dr. Agueda Wiley WBC 0-2 Abnormal NONE SEEN [facility] Comment on above: Performed By: #### C MIKKI, LIVER #### [facility] [address] [place] [address] Dr. Agueda Wiley CBC AUTO DIFFon 11-27-2022 BASO # 0.0 103/ul Normal 0.0-0.1 [facility] Comment on above: Performed By: #### Gila KAYE, LIVER #### [facility] [address] [place] [address] Dr. Agueda Wiley Basophils/100 WBC (Bld) 0.3 % Normal 0.2-2.0 [facility] Comment on above: Performed By: #### C MIKKI, LIVER #### [facility] [address] [place] [address] Dr. Agueda Wiley EO # 0.1 103/ul Normal 0.0-0.7 [facility] Comment on above: Performed By: #### Gila KAYE, LIVER #### [facility] [address] [place] [address] Dr. Agueda Wiley Eosinophils/100 WBC (Bld) 0.9 % Normal 0.9-7.0 [facility] Comment on above: Performed By: #### Gila KAYE, LIVER #### [facility] [address] [place] [address] Dr. Agueda Wiley Erythrocyte distribution width (RBC) [Ratio] 15.8 % Critically high 11.0-15.0 [facility] Comment on above: Performed By: #### Gila KAYE, LIVER #### [facility] [address] [place] [address] Dr. Agueda Wiley Hematocrit (Bld) [Volume fraction] 39.6 % Normal 36.0-48.0 [facility] Comment on above: Performed By: #### Gila KAYE, LIVER #### [facility] [address] [place] [address] Dr. Agueda Wiley Hemoglobin (Bld) [Mass/Vol] 12.7 g/dL Normal 12.0-16.0 [facility] Comment on above: Performed By: #### Gila KAYE, LIVER #### [facility] [address] [place] [address] Dr. Agueda Wiley IG # 0.08 10e3/ul Critically high 0.00-0.03 [facility] Comment on above: Performed By: #### Gila KAYE, LIVER #### [facility] [address] [address] [address] Agueda Wiley IG % 0.6 % Critically high 0.0-0.5 [facility] Comment on above: Performed By: #### C MIKKI, LIVER #### [facility] [address] [address] [address] Agueda Wiley LYMPH # 1.2 103/ul Normal 1.2-3.8 [facility] Comment on above: Performed By: #### C MIKKI, LIVER #### [facility] [address] [place] [address] Dr. Agueda Wiley Lymphocytes/100 WBC (Bld) 8.6 % Critically low 20.5-60.0 [facility] Comment on above: Performed By: #### C MIKKI, LIVER #### [facility] [address] [place] [address] Dr. Agueda Wiley MANUAL DIFF REQ NO Normal [facility] Comment on above: Performed By: #### C MIKKI, LIVER #### [facility] [address] [place] [address] Dr. Agueda Wiley MCH (RBC) [Entitic mass] 29.5 pg Normal 26.7-34.0 [facility] Comment on above: Performed By: #### C MIKKI, LIVER #### [facility] [address] [place] [address] Dr. Agueda Wiley MCHC (RBC) [Mass/Vol] 32.1 g/dL Normal 29.9-35.2 [facility] Comment on above: Performed By: #### C MIKKI, LIVER #### [facility] [address] [place] [address] Dr. Agueda Wiley MCV (RBC) [Entitic vol] 92.1 fL Normal 81.0-99.0 [facility] Comment on above: Performed By: #### C MIKKI, LIVER #### [facility] [address] [place] [address] Dr. Agueda Wiley MONO # 0.9 103/ul Critically high 0.3-0.8 [facility] Comment on above: Performed By: #### C MIKKI, LIVER #### [facility] [address] [address] [address] Agueda Wiley Monocytes/100 WBC (Bld) 7.0 % Normal 1.7-12.0 [facility] Comment on above: Performed By: #### C MIKKI, LIVER #### [facility] [address] [place] [address] Dr. Agueda Wiley NEUT # 11.1 103/ul Critically high 1.4-6.[address] [facility] Comment on above: Performed By: #### C MIKKI, LIVER #### [facility] [address] [place] [address] Dr. Agueda Wiley Neutrophils/100 WBC (Bld) 82.6 % Critically high 43.0-75.0 [facility] Comment on above: Performed By: #### C MIKKI, LIVER #### [facility] [address] [place] [address] Dr. Agueda Wiley Platelet mean volume (Bld) [Entitic vol] 11.3 fL Normal 9.5-13.5 [facility] Comment on above: Performed By: #### C MIKKI, LIVER #### [facility] [address] [place] [address] Dr. Agueda Wiley PLT 245 103/ul Normal 150-450 [facility] Comment on above: Performed By: #### C MIKKI, LIVER #### [facility] [address] [place] [address] Dr. Agueda Wiley RBC 4.30 106/ul Normal 4.20-5.40 [facility] Comment on above: Performed By: #### C MIKKI, LIVER #### [facility] [address] [place] [address] Dr. Agueda Wiley WBC 13.5 103/ul Critically high 4.0-11.[address] [facility] Comment on above: Performed By: #### C MIKKI, LIVER #### [facility] [address] [place] [address] Dr. Agueda Wiley CREATININEon 11-27-2022 Creatinine [Mass/Vol] 1.13 mg/dL Critically high 0.55-1.02 [facility] Comment on above: Performed By: #### C MIKKI, LIVER #### [facility] [address] [place] [address] Dr. Agueda Wiley EGFR-AF GUAMANIAN 58 mL/min/1.73m2 Critically low >=60 [facility] Comment on above: Performed By: #### C MIKKI, LIVER #### [facility] [address] [place] [address] Dr. Agueda Wiley EGFR-NON AF GUAMANIAN 48 mL/min/1.73m2 Critically low >=60 [facility] Comment on above: Performed By: #### C MIKKI, LIVER #### [facility] [address] [place] [address] Dr. Agueda Wiley LIVER PROFILEon 11-27-2022 Albumin [Mass/Vol] 3.4 g/dL Normal 3.4-5.0 [facility] Comment on above: Performed By: #### C MIKKI, LIVER #### [facility] [address] [place] [address] Dr. Agueda Wiley Albumin/Globulin [Mass ratio] 1.0 {ratio} Normal [facility] Comment on above: Performed By: #### C MIKKI, LIVER #### [facility] [address] [place] [address] Dr. Agueda Wiley ALP [Catalytic activity/Vol] 67 U/L Normal 46-116 [facility] Comment on above: Performed By: #### Gila KAYE, LIVER #### [facility] [address] [place] [address] Dr. Agueda Wiley ALT [Catalytic activity/Vol] 37 U/L Normal 14-59 [facility] Comment on above: Performed By: #### C MIKKI, LIVER #### [facility] [address] [place] [address] Dr. Agueda Wiley AST [Catalytic activity/Vol] 20 U/L Normal 15-37 [facility] Comment on above: Performed By: #### C MIKKI, LIVER #### [facility] [address] [place] [address] Dr. Agueda Wiley BILI, CONJUGATED 0.1 mg/dL Normal 0.0-0.2 [facility] Comment on above: Performed By: #### C MIKKI, LIVER #### [facility] [address] [place] [address] Dr. Agueda Wiley Bilirubin [Mass/Vol] 0.4 mg/dL Normal 0.2-1.0 [facility] Comment on above: Performed By: #### C MIKKI, LIVER #### [facility] [address] [place] [address] Dr. Agueda Wiley Globulin (S) [Mass/Vol] 3.4 g/dL Normal [facility] Comment on above: Performed By: #### C MIKKI, LIVER #### [facility] [address] [place] [address] Dr. Agueda Wiley Protein [Mass/Vol] 6.8 g/dL Normal 6.4-8.2 [facility] Comment on above: Performed By: #### C MIKKI, LIVER #### [facility] [address] [place] [address] Dr. Agueda Wiley [facility] 17 mm/hr Normal <=30 [facility] Comment on above: Performed By: #### C MIKKI, LIVER #### [facility] [address] [place] [address] Dr. Agueda Wiley Complement C3on 10-08-2022 Complement C3 140 mg/dL Normal 82-167 [facility] Comment on above: Result Comment: Perf ormed at: CB - [facility] [place] [address] [place], [place] [id number] Director Social Service: Matty Diaz PhD, Phone: [phone] Performed By: #### C RYOGLOB, CH50, C3, IGE, C4, CRYOFIBRIN, IMM ROLO #### [facility] , Complement C4on 10-08-2022 Complement C4 31 mg/dL Normal 12-38 [facility] Comment on above: Performed By: #### C RYOGLOB, CH50, C3, IGE, C4, CRYOFIBRIN, IMM ROLO #### [facility] , Complement Total (CH50)on Complement Total (CH50) >60 Normal >41 [facility] Comment on above: Result Comment: Age Male Female 1 - 30 days Not Estab. Not Estab. 31 days - 6 months >32 >20 7 months - 17 years >39 >39 >17 years >41 >41 NOTE: The adult ( >17 years ) reference interval range is used to flag abnormals on this report. If the patient is 17 years old or younger, use the table above to determine out of range values. Performed at: [address] [id number] Director Social Service: Matty Diaz PhD, Phone: [phone] PERFORMED BY: [address] [place] [address] PATHOLOGIST SPORTS MEDICINE COORDINATOR ADAIR MARK M.D. Performed By: #### C RYOGLOB, CH50, C3, IGE, C4, CRYOFIBRIN, IMM ROLO #### [facility] , Cryofibrinogen, Qualitativeo n 10-08-2022 Cryofibrinogen, Qualitative Normal . [facility] Comment on above: Result Comment: None Detected at 72 hours Normal: None Detected This test was developed and its performance characteristics determined by [employer]. It has not been cleared or approved by the Food and Drug Administration. Performed at: [facility] [employer] [id number] Director Social Service: Matty Diaz PhD, Phone: [phone] Performed By: #### C RYOGLOB, CH50, C3, IGE, C4, CRYOFIBRIN, IMM ROLO #### [facility] , Cryoglobulin with Quant Refl exon 10-08-2022 Cryoglobulin, Ql, Serum Normal None detected [facility] Comment on above: Result Comment: None Detected at 72 hours This test was developed and its performance characteristics determined by [employer]. It has not been cleared or approved by the Food and Drug Administration. PERFORMED BY: [place] [address] PATHOLOGIST SPORTS MEDICINE COORDINATOR ADAIR MARK M.D. Performed By: #### C RYOGLOB, CH50, C3, IGE, C4, CRYOFIBRIN, IMM ROLO ####[facility] , Immunoglobulin Guido 3 Immunoglobulin E 12 Normal 6-[address] [facility] Comment on above: Result Comment: Perf ormed at: - [facility] [address] [id number] Director Social Service: Blane Park MD, Phone: [phone] Performed By: #### C RYOGLOB, CH50, C3, IGE, C4, CRYOFIBRIN, IMM ROLO #### [facility] , Immunoglobulins A/G/M, Qn, S priscilla 10-08-2022 Immunoglobulin A, Serum 157 mg/dL Normal 87-352 [facility] Comment on above: Performed By: #### C RYOGLOB, CH50, C3, IGE, C4, CRYOFIBRIN, IMM ROLO #### [facility] , Immunoglobulin G 835 mg/dL Normal 586-[address] [facility] Comment on above: Performed By: #### C RYOGLOB, CH50, C3, IGE, C4, CRYOFIBRIN, IMM ROLO #### [facility] , Immunoglobulin M, Serum 69 mg/dL Normal 26-217 [facility] Comment on above: Performed By: #### C RYOGLOB, CH50, C3, IGE, C4, CRYOFIBRIN, IMM ROLO #### [facility] , CBC AUTO DIFFon 10-05-2022 BASO # 0.0 103/ul Normal 0.0-0.1 [facility] Comment on above: Performed By: #### Gila KAYE LIVER #### [facility] [address] [address] [address] Agueda Wiley Basophils/100 WBC (Bld) 0.3 % Normal 0.2-2.0 [facility] Comment on above: Performed By: #### C MIKKI, LIVER #### [facility] [address] [place] [address] Dr. Agueda Wiley EO # 0.1 103/ul Normal 0.0-0.7 [facility] Comment on above: Performed By: #### C MIKKI, LIVER #### [facility] [address] [place] [address] Dr. Agueda Wiley Eosinophils/100 WBC (Bld) 0.6 % Critically low 0.9-7.0 [facility] Comment on above: Performed By: #### C MIKKI, LIVER #### [facility] [address] [place] [address] Dr. Agueda Wiley Erythrocyte distribution width (RBC) [Ratio] 14.0 % Normal 11.0-15.0 [facility] Comment on above: Performed By: #### C MIKKI, LIVER #### [facility] [address] [place] [address] Dr. Agueda Wiley Hematocrit (Bld) [Volume fraction] 38.5 % Normal 36.0-48.0 [facility] Comment on above: Performed By: #### C MIKKI, LIVER #### [facility] [address] [place] [address] Dr. Agueda Wiley Hemoglobin (Bld) [Mass/Vol] 13.3 g/dL Normal 12.0-16.0 [facility] Comment on above: Performed By: #### C MIKKI, LIVER #### [facility] [address] [place] [address] Dr. Agueda Wiley IG # 0.03 10e3/ul Normal 0.00-0.03 [facility] Comment on above: Performed By: #### C MIKKI, LIVER #### [facility] [address] [place] [address] Dr. Agueda Wiley IG % 0.3 % Normal 0.0-0.5 [facility] Comment on above: Performed By: #### C MIKKI, LIVER #### [facility] [address] [place] [address] Dr. Agueda Wiley LYMPH # 1.2 103/ul Normal 1.2-3.8 [facility] Comment on above: Performed By: #### C MIKKI, LIVER #### [facility] [address] [place] [address] Dr. Agueda Wiley Lymphocytes/100 WBC (Bld) 10.3 % Critically low 20.5-60.0 [facility] Comment on above: Performed By: #### C MIKKI, LIVER #### [facility] [address] [place] [address] Dr. Agueda Wiley MANUAL DIFF REQ NO Normal [facility] Comment on above: Performed By: #### C MIKKI, LIVER #### [facility] [address] [place] [address] Dr. Agueda Wiley MCH (RBC) [Entitic mass] 29.1 pg Normal 26.7-34.0 [facility] Comment on above: Performed By: #### C MIKKI, LIVER #### [facility] [address] [place] [address] Dr. Agueda Wiley MCHC (RBC) [Mass/Vol] 34.5 g/dL Normal 29.9-35.2 [facility] Comment on above: Performed By: #### C MIKKI, LIVER #### [facility] [address] [place] [address] Dr. Agueda Wiley MCV (RBC) [Entitic vol] 84.2 fL Normal 81.0-99.0 [facility] Comment on above: Performed By: #### C MIKKI, LIVER #### [facility] [address] [place] [address] Dr. Agueda Wiley MONO # 0.6 103/ul Normal 0.3-0.8 [facility] Comment on above: Performed By: #### C MIKKI, LIVER #### [facility] [address] [place] [address] Dr. Agueda Wiley Monocytes/100 WBC (Bld) 5.0 % Normal 1.7-12.0 [facility] Comment on above: Performed By: #### C MIKKI, LIVER #### [facility] [address] [place] [address] Dr. Agueda Wiley NEUT # 9.9 103/ul Critically high 1.4-6.5 [facility] Comment on above: Performed By: #### C MIKKI, LIVER #### [facility] [address] [place] [address] Dr. Agueda Wiley Neutrophils/100 WBC (Bld) 83.5 % Critically high 43.0-75.0 [facility] Comment on above: Performed By: #### Gila KAYE, LIVER #### [facility] [address] [place] [address] Dr. Agueda Wiley Platelet mean volume (Bld) [Entitic vol] 10.8 fL Normal 9.5-13.5 [facility] Comment on above: Performed By: #### Gila KAYE, LIVER #### [facility] [address] [place] [address] Dr. Agueda Wiley PLT 265 103/ul Normal 150-450 [facility] Comment on above: Performed By: #### Gila KAYE, LIVER #### [facility] [address] [place] [address] Dr. Agueda Wiley RBC 4.57 106/ul Normal 4.20-5.40 [facility] Comment on above: Performed By: #### Gila KAYE, LIVER #### [facility] [address] [place] [address] Dr. Agueda Wiley WBC 11.9 103/ul Critically high 4.0-11.0 [facility] Comment on above: Performed By: #### Gila KAYE, LIVER #### [facility] [address] [place] [address] Dr. Agueda Wiley CREATININEon 10-05-2022 Creatinine [Mass/Vol] 0.92 mg/dL Normal 0.55-1.02 [facility] Comment on above: Performed By: #### Gila KAYE, LIVER #### [facility] [address] [place] [address] Dr. Agueda Wiley EGFR-AF GUAMANIAN >60 Normal >=[address] [facility] Comment on above: Performed By: #### Gila KAYE, LIVER #### [facility] [address] [place] [address] Dr. Agueda Wiley EGFR-NON AF GUAMANIAN >60 Normal >=60 [facility] Comment on above: Performed By: #### C MIKKI, LIVER #### [facility] [address] [address] [address] chest wo conon 10-05-2022 CT chest wo con [facility] [place] [address] [place] [address] CT Scan Report Signed Patient: Reba Gregory MR#: [id number] : 1955 Acct:[id number] Age/Sex: 66 / F ADM Date: 10/05/22 Loc: CT Room: Type: [facility] CLI Attending Dr: George Ryan MD Copies to: George Ryan MD Ordering Provider: George Ryan MD Date of Service: 10/05/22 CT/CT chest wo con: L ARM HEMATOMA SWELLING CT chest withoutcontrast TECHNIQUE: Axial imaging with 2-D reconstruction. The CT exam was performed using one or more the following dose reduction techniques: Automated exposure control, adjustment of the MA and/or Kv according to patient size, or use of the iterative reconstruction technique. History: LEFT arm bicep swelling and bruising. No injury. COMPARISON: 09/08/22 No thyroid abnormality Central airway is patent. No esophageal abnormality identified. Heart is not enlarged. No pericardial effusion is seen. Atherosclerosis of the thoracic aorta. Nonenlarged mediastinal lymph nodes identified. No hilar mass or adenopathy is seen. No thoracic aortic aneurysm is seen. No lung nodules identified. No infiltrate or congestion identified. No pleural effusion identified. No pneumothorax seen. No chest wall abnormality seen. RIGHT shoulder joint effusion identified. Extensive RIGHT glenohumeral degenerative changes present. Hepatic steatosis identified. CT/CT chest wo con IMPRESSION: RIGHT shoulder degenerative changes. No acute cardiopulmonary disease. Impression dictated by: Rome Guerra M.D.10/05/2022 2:47 PM Dictation Location: [place] [address] Transcribed By: [facility] 10/05/22 1447 Dictated By: Rome Guerra DO 10/05/22 1432 Signed By: 10/05/22 [address] [facility] [address] shoulder LT wo conon 09-14 CT shoulder LT wo con [facility] [place] [address] CT Scan Report Signed Patient: Reba Gregory MR#: [id number] : 1955 Acct:[id number] Age/Sex: 66 / F ADM Date: 10/05/22 Loc: CT Room: Type: [facility] Attending Dr: George Ryan MD Copies to: George Ryan MD Ordering Provider: George Ryan MD Date of Service: 10/05/22 CT/CT shoulder LT wo con: LEFT ARM SWELLING HEMATOMA CT LEFT shoulder without contrast TECHNIQUE: The CT exam was performed using one or more the following dose reduction techniques: Automated exposure control, adjustment of the MA and/or Kv according to patient size, or use of the iterative reconstruction technique. COMPARISON:None HISTORY:Question hematoma. Swelling of the LEFT biceps with bruising. Visualized LEFT humerus intact. The LEFT scapula intact. LEFT clavicle intact. Mild glenohumeral and acromioclavicular degenerative changes of the LEFT present. No fluid collection identified in the LEFT shoulder. No subcutaneous edema or air. CT/CT shoulder LT wo con IMPRESSION: Mild LEFT shoulder degeneration. Impression dictated by: Rome Guerra M.D.10/05/2022 2:49 PM Dictation Location: [place] [address] Transcribed By: [facility] 10/05/22 1449 Dictated By: Rome Guerra DO 10/05/22 1447 Signed By: 10/05/22 1449 Normal [facility] LIVER PROFILEon 10-05-2022 Albumin [Mass/Vol] 3.4 g/dL Normal 3.4-5.0 [facility] Comment on above: Performed By: #### C MIKKI LIVER #### [facility] [address] [place] [address] Dr. Agueda Wiley Albumin/Globulin [Mass ratio] 1.0 {ratio} Normal [facility] Comment on above: Performed By: #### C MIKKI LIVER #### [facility] [address] [address] [address] Agueda Wiley ALP [Catalytic activity/Vol] 90 U/L Normal 46-116 [facility] Comment on above: Performed By: #### C MIKKI, LIVER #### [facility] [address] [place] [address] Dr. Agueda Wiley ALT [Catalytic activity/Vol] 35 U/L Normal 14-59 [facility] Comment on above: Performed By: #### C MIKKI, LIVER #### [facility] [address] [address] [address] Agueda Wiley AST [Catalytic activity/Vol] 21 U/L Normal 15-37 [facility] Comment on above: Performed By: #### C MIKKI, LIVER #### [facility] [address] [place] [address] Dr. Agueda Wiley BILI, CONJUGATED 0.1 mg/dL Normal 0.0-0.2 [facility] Comment on above: Performed By: #### Gila KAYE, LIVER #### [facility] [address] [place] [address] Dr. Agueda Wiley Bilirubin [Mass/Vol] 0.6 mg/dL Normal 0.2-1.0 [facility] Comment on above: Performed By: #### C MIKKI, LIVER #### [facility] [address] [place] [address] Dr. Agueda Wiley Globulin (S) [Mass/Vol] 3.5 g/dL Normal [facility] Comment on above: Performed By: #### Gila KAYE, LIVER #### [facility] [address] [place] [address] Dr. Agueda Wiley Protein [Mass/Vol] 6.9 g/dL Normal 6.4-8.2 [facility] Comment on above: Performed By: #### C MIKKI, LIVER #### [facility] [address] [place] [address] Dr. Agueda Wiley SED RATE [facility] 2022 SED RATE 27 mm/hr Normal <=30 [facility] Comment on above: Performed By: #### C MIKKI, LIVER #### [facility] [address] [address] [address] Agueda Wiley [facility] echo transthoracicon [facility] echo transthoracic [facility] [place] [address] [place] [address] Echocardiogram Signed Patient: Reba Gregory MR#: [id number] : 1955 Acct:[id number] Age/Sex: 66 / F ADM Date: 09/24/22 Loc: Room: Type: [facility] Attending Dr: George Ryan MD Ordering Provider: George Rayn MD Date of Service: 09/24/22[facility] tran[facility]acic: Cardiac Thrombus. Copies to: Danielle De Luna MD, [facility] George Ryan MD Weight: 180 lb Performed By: Trini Kamara CYRIL BSA: 1.8 m2 BP: 145/85 mmHg HR: 67 Reason For Study: Cardiac Thrombus. Cyanosis in fingers. History: HTN. HLD. Former Smoker. COPD. Family history of CAD. COVID-19. Mastectomy. Interpretation Summary Mild concentric left ventricular hypertrophy. Ejection Fraction = 60-65%. A variety of Doppler measurements indicate impaired left ventricular relaxation, which is associated with grade I/IV or mild diastolic dysfunction. Mitral valve annulus tissue Doppler imaging is consistent with elevated left atrial pressure. There is severe mitral annular calcification. There is trace mitral regurgitation. No thrombus, vegetation or mass is seen. There is no prior echocardiogram noted for this patient. Procedure/Quality: A two-dimensional transthoracic echocardiogram with color flow and Doppler was performed. The study was technically good in quality. There is no prior echocardiogram noted for this patient. Left Ventricle: Mild concentric left ventricular hypertrophy. Left ventricular systolic function is normal. Ejection Fraction = 60-65%. A variety of Doppler measurements indicate impaired left ventricular relaxation, which is associated with grade I/IV or mild diastolic dysfunction. Mitral valve annulus tissue Doppler imaging is consistent with elevated left atrial pressure. Left Atrium: The left atrium appears normal in size. Right Atrium: The right atrium appears normal in size. Right Ventricle: The right ventricular size, thickness and function are normal. Aortic Valve: The aortic valve is mildly sclerotic. The aortic valve is trileaflet. No hemodynamically significant valvular aortic stenosis. Mitral Valve: There is severe mitral annular calcification. The mitral valve is moderately sclerotic. There is trace mitral regurgitation. Tricuspid Valve: The tricuspid valve is normal. Pulmonic Valve: The pulmonic valve is not well seen, but is grossly normal. Arteries: The aortic root is normal size. Pericardium/Pleura: No pericardial effusion seen. There is no pleural effusion. IVC/Hepatic Viens: The IVC is normal in size with an inspiratory collapse of greater then 50%, suggesting normal right atrial pressure. Miscellaneous: No thrombus, vegetation or mass is seen. Measurements with Normals IVSd: 1.4 cm (0.7-1.1 cm)LVIDd: 4.6 cm (3.7-5.4 cm) LVPWd: 1.2 cm (0.7-1.1 cm)LVIDs: 3.3 cm (2.3-3.6 cm) LA dimension: 3.4 cm (2.3-4.0 cm)Ao root diam: 3.1 cm(2.0-3.6 cm) asc Aorta Diam: 3.7 cm(2.1-3.4cm) Doppler with Normals LV V1 max: 129.2 cm/sec (0.7-1.7m/s)MV E max addison: 135.0 cm/sec(0.8-1.3m/s) MV A max addison: 187.1 cm/sec(0.0-0.0m/s) MV E/A: 0.72 (<1.5) MMode/2D Measurements Calculations TAPSE: 2.7 cm FS: 28.6 % Ao root area: LVOT diam: 2.0 cm RV S Addison: EDV(Teich): 7.7 cm2 LVOT area: 3.2 cm2 18.4 cm/sec 99.6 ml ESV(Teich): 44.7 ml EF(Teich): 55.1 % __ LVLd ap4: 7.2 cm SV(MOD-sp4): LAV(MOD-sp4): LA A2 area: 19.8 cm2 EDV(MOD-sp4): 51.9 ml 41.2 ml 88.5 ml LAV(MOD-sp2): LA A4 area: 16.4 cm2 LVLs ap4: 6.2 cm 51.5 ml LA length (vol): ESV(MOD-sp4): 5.1 cm 36.6 ml LA vol: 54.4 ml EF(MOD-sp4): 58.6 % LA vol index: 31.0 ml/m2 Doppler Measurements Calculations MV dec time: MV V2 max: E/E' lat: 22.2 MV P1/2t max addison: 0.21 sec 216.9 cm/sec E/E' med: 25.3 152.8 cm/sec MV max PG: MV P1/2t: 65.0 msec 135.0 mmHg MV V2 mean: MVA(P1/2t): 3.4 cm2 126.7 cm/sec MV dec slope: MV mean P.9 cm/sec2 7.4 mmHg MV V2 VTI: 47.4 cm MVA(VTI): 1.9 cm2 __ Ao V2 max: LV V1 max PG: MR max addison: RAP systole: 3.0 mmHg 200.3 cm/sec 6.7 mmHg 582.6 cm/sec Ao max PG: LV V1 mean PG: MR max P.0 mmHg 3.5 mmHg 136.3 mmHg Ao mean PG: LV V1 mean: 8.5 mmHg 90.4 cm/sec Ao V2 mean: LV V1 VTI: 28.4 cm 135.1 cm/sec Ao V2 VTI: 37.8 cm DEENA(I,D): 2.4 cm2 DEENA(V,D): 2.1 cm2 Transcribed By: MIRELLA Performed At: 09/24/22 0747 Signed By: Danielle De Luna MD, FACC 09/24/22 1605 Normal [facility] XR hand RT min 3V*on 023 XR hand RT min 3V* [address] [address] XRay Report Signed Patient: Reba Gregory MR#: [id number] : 1955 Acct:[id number] Age/Sex: 66 / F ADM Date: 09/23/22 [place] [facility] [place] [facility] Attending Dr: Kiana Munson MD Copies to: Kiana Munson MD Ordering Provider: Kiana Munson MD Date of Service: 09/23/22 XR/XR hand RT min 3V*: Lesion of finger RIGHT HAND - 4 views REASON FOR EXAM: Right fourth digit ischemia for one month. Mass on top of right fourth digit. COMPARISON: None FINDINGS: No focal soft tissue abnormality is seen. No radiopaque foreign body. No acute bony process is noted. Mild degenerative changes involving the CMC joint of the thumb. No bony erosions are noted. XR/XR hand RT min 3V* IMPRESSION: MILD DEGENERATIVE CHANGES WITHOUT ACUTE BONY PROCESS. Impression dictated by: Dave Espana Jr., D.O.09/23/2022 4:30 PM Dictation Location: [place] [address] Transcribed By: [facility] 09/23/22 1630 Dictated By: Dave Espana Jr, DO 09/23/22 1629 Signed By: 09/23/22 1630 Normal [facility] XR hand RT min 3V* [facility] [employer] Other XR hand RT min 3V* [facility] [employer] Other XR hand RT min 3V* [address] [place] [address] [employer] Other XR hand RT min 3V* [place] [address] [facility] [employer] Other XR hand RT min 3V* XRay Report [facility] [employer] Other XR hand RT min 3V* Signed [employer] [facility] [employer] Other XR hand RT min 3V* Patient: Reba Gregory MR#: [id number] [facility] [employer] Other XR hand RT min 3V* : 1955 Acct:[id number] [employer] Other XR hand RT min 3V* Age/Sex: 66 / F ADM Date: 09/23/22 [employer] Other XR hand RT min 3V* Loc: [facility] Room: [facility] [employer] Other XR hand RT min 3V* Attending Dr: Kiana Munson MD [employer] Other XR hand RT min 3V* Copies to: Kiana Munson MD [employer] [facility] Other XR hand RT min 3V* Ordering Provider: Kiana Munson MD [employer] Other XR hand RT min 3V* Date of Service: 09/23/22 [employer] Other XR hand RT min 3V* XR/XR hand RT min 3V*: Lesion of finger [employer] Other XR hand RT min 3V* RIGHT HAND - 4 views [employer] Other XR hand RT min 3V* REASON FOR EXAM: Right fourth digit ischemia for one month. Mass on top of right fourth digit. [employer] Other XR hand RT min 3V* COMPARISON: None [employer] Other XR hand RT min 3V* FINDINGS: [employer] Other XR hand RT min 3V* No focal soft tissue abnormality is seen. No radiopaque foreign body. No acute bony process is [employer] Other XR hand RT min 3V* noted. Mild degenerative changes involving the CMC joint of the thumb. No bony erosions are noted. [employer] Other XR hand RT min 3V* XR/XR hand RT min 3V* [employer] Other XR hand RT min 3V* IMPRESSION: [employer] Other XR hand RT min 3V* MILD DEGENERATIVE CHANGES WITHOUT ACUTE BONY PROCESS. [employer] Other XR hand RT min 3V* Impression dictated by: Dave Espnaa Jr., D.OShannon09/23/2022 4:30 PM [employer] Other XR hand RT min 3V* Dictation Location: [place] [address] [employer] Other XR hand RT min 3V* Transcribed By: PWS 09/23/22 1630 [employer] Other XR hand RT min 3V* Dictated By: Dave Espana Jr, DO 09/23/22 1629 [employer] Other XR hand RT min 3V* Signed By: [employer] Other XR hand RT min 3V* 09/23/22 1630 [facility] [employer] Other US carotid doppler BIon -0 US carotid doppler BI [facility] Main [place] [address] [place] [address] Ultrasound Report Signed Patient: Reba Gregory MR#: [id number] : 1955 Acct:[id number] Age/Sex: 66 / F ADM Date: 09/17/22 Loc: [facility] Room: [facility] Attending Dr: George Ryan MD Ordering Provider: George Ryan MD Date of Service: 09/17/22 US/US carotid doppler BI: I65.23 Copies to: George Ryan MD CAROTID DUPLEX INDICATION: Vertigo, dizziness, carotid bruit PROCEDURE: Color-flow duplex scanning is used to interrogate the extracranial carotid arterial system, as well as both vertebral arteries. The proximal right internal carotid artery shows a highest peak systolic velocity of 86.2 cm/s with an end-diastolic velocity of 23.6 cm/s . The mid internal carotid artery measures 143 cm/s peak systolic with an end-diastolic velocity of 37.3 cm/s . The distal segment measures 132 cm/s peak systolic with an end diastolic velocity of 32.1 cm/s . The velocities of the right common carotid artery are 132 cm/s peak systolic and 17.5 cm/s end- diastolic proximally and 84 cm/s peak systolic and 16.2 cm/s end-diastolic distally. The peak systolic velocity ratio of the internal to the common carotid artery is 1.08 . The right external carotid artery measures 145 cm/s peak systolic. The right vertebral artery is patent at 32 cm/s peak systolic and with antegrade flow. The proximal left internal carotid artery shows a highest peak systolic velocity of 101 cm/s with an end-diastolic velocity of 27.3 cm/s . The mid internal carotid artery measures 106 cm/s peak systolic with an end-diastolic velocity of 31.7 cm/s . The distal segment measures 115 cm/s peak systolic with an end diastolic velocity of 36.8 cm/s . The velocities of the left common carotid artery are 125 cm/s peak systolic and 25.1 cm/s end-diastolic proximally and 97.5 cm/s peak systolic and 21.7 cm/s end-diastolic distally. The peak systolic velocity ratio of the internal to the common carotid artery is 0.92 . The left external carotid artery measures 98.2 cm/s peak systolic. The left vertebral artery is patent at 64.3 cm/s peak systolic with antegrade flow. US/US carotid doppler BI IMPRESSION: NO HEMODYNAMICALLY SIGNIFICANT STENOSIS OF EITHER EXTRACRANIAL INTERNAL CAROTID ARTERY. BOTH VERTEBRAL ARTERIES ARE PATENT WITH ANTEGRADE FLOW. Impression dictated by: George Ryan MD09/17/2022 3:40 PM Dictation Location: CT-PACS-01 Tech: Linsey Ascencio Transcribed By: TANYA 09/17/22 1540 Dictated By: George Ryan MD 09/17/22 1539 Signed By: 09/17/22 1540 [facility] Creatinine (Bld) [Mass/Vol]O rdered By: George Ryan on 09-08-2022 Creatinine [Mass/Vol] 0.9 mg/dL 0.6-1.3 [facility] Comment on above: ER/ESD physician is notified/shown all ISTAT results.Critical values may be confirmed by laboratory testing ifdeemed necessary by ER attending doctor. No Panel InformationOrdered By: George Ryan on 09-08-2022 POC Estimated GFR > 60 [facility] Comment on above: GFR estimated refere nce range: According to KDOQI guidelines, <60 ml/min/1.73m2 is sufficient to diagnose a patient with chronic kidney disease. POC Estimated GFR Non- Amer > 60 [facility] LUPUS ANTICOAGULANT PROFILEo n 09-04-2022 Anticardiolipin Ab, IgG <10 Normal [facility] Comment on above: Result Comment: Refe rence Range: Negative: <15 Indeterminate: 15 - 20 Low to medium positive: >20 - 80 High positive: >80 Performed By: #### C MIKKI, LIVER #### [facility] [address] [place] [address] Dr. Agueda Wiley Anticardiolipin Ab, IgM 34 MPL Critically high [facility] Comment on above: Result Comment: Refe rence Range: Negative: <13 Indeterminate: 13 - 20 Low to medium positive: >20 - 80 High positive: >80 Performed By: #### C MIKKI, LIVER #### [facility] [address] [place] [address] [address] Agueda Wiley APTT 1:1 [place] MINER NIY Normal [facility] Comment on above: Result Comment: Test ing Not Indicated This test was developed and its performance characteristics determined by [facility]. It has not been cleared or approved by the [place] Food and Drug Administration. Performed By: #### C MIKKI, LIVER #### [facility] [address] [place] [address] [address] Agueda Wiley APTT 1:1 [place] NIY Normal [facility] Comment on above: Result Comment: Test ing Not Indicated This test was developed and its performance characteristics determined by [facility]. It has not been cleared or approved by the [place] Food and Drug Administration. Performed By: #### C MIKKI, LIVER #### [facility] [address] [place] [address] Dr. Agueda Wiley aPTT Coag (Bld) [Time] 23.9 s Normal [facility] Comment on above: Result Comment: This test has not been validated for monitoring unfractionated heparin therapy. aPTT-based therapeutic ranges for unfractionated heparin therapy have not been established. Consider ordering Heparin anti-Xa (unfractionated). Reference Range: 18 years and older: 22.9 - 30.2 Performed By: #### C MIKKI, LIVER #### [facility] [address] [place] [address] [address] Agueda Wiley Beta-2 Glycoprotein I, IgA <10 Normal [facility] Comment on above: Result Comment: The reference interval reflects a 3SD or 99th percentile interval. Reference Range: Negative: <26 Performed By: #### C MIKKI, LIVER #### [facility] [address] [place] [address] [address] Agueda Wiley Beta-2 Glycoprotein I, IgG <10 Normal [facility] Comment on above: Result Comment: The reference interval reflects a 3SD or 99th percentile interval. Reference Range: Negative: <21 Performed By: #### C MIKKI, LIVER #### [facility] [address] [place] [address] Dr. Agueda Wilye Beta-2 Glycoprotein I, IgM <10 Normal [facility] Comment on above: Result Comment: The reference interval reflects a 3SD or 99th percentile interval. Reference Range: Negative: <33 Performed By: #### C MIKKI, LIVER #### [facility] [address] [place] [address] Dr. Agueda Wiley DRVVT Confirm Seconds NIY Normal [facility] Comment on above: Result Comment: Test ing Not Indicated Performed By: #### C MIKKI, LIVER #### [facility] [address] [place] [address] Dr. Agueda Wiley DRVVT Ratio NIY Normal [facility] Comment on above: Result Comment: Test ing Not Indicated Performed By: #### C MIKKI, LIVER #### [facility] [address] [place] [address] Dr. Agueda Wiley DRVVT Screen Seconds 39.3 sec Normal [facility] Comment on above: Result Comment: Refe rence Range: <= 47.0 Performed By: #### C MIKKI, LIVER #### [facility] [address] [place] [address] Dr. Agueda Wiley Hexagonal Phospholipid Neutral 1 sec Normal [facility] Comment on above: Result Comment: This value is NEGATIVE. This is a qualitative assay and is therefore reported as positive for lupus anticoagulant or negative. The quantitative value is provided as an aid in diagnosis. Reference Range: 0 - 11 Performed By: #### C MIKKI, LIVER #### [facility] [address] [place] [address] [address] Agueda Wiley INR Coag (PPP) [Relative time] 1.0 {INR} Normal [facility] Comment on above: Result Comment: Refe rence Range: >1 month: 0.9 - 1.2 Performed By: #### C MIKKI, LIVER #### [facility] [address] [place] [address] [address] Agueda Wiley LAC Interpretation Comment Normal [facility] Comment on above: Result Comment: A zamzam pus anticoagulant is not detected. Although aCL IgM is elevated, it does not fall into a range that meets laboratory diagnostic criteria for antiphospholipid syndrome. Levels may elevate transiently with certain infections and may increase spuriously in the presence of rheumatoid factor. All other CAMERON-based phospholipid antibodies evaluated are normal. As antibody titers may fluctuate over time, repeat testing may be indicated. Please contact [facility] if further clarification is needed. Performed By: #### C MIKKI LIVER #### [facility] [address] [address] [address] Agueda Wiley Platelet Neutralization 0.0 sec Normal [facility] Comment on above: Result Comment: Refe rence Range: 0.0 - 3.0 This test was developed and its performance characteristics determined by [facility]. It has not been cleared or approved by the Food and Drug Administration. Performed By: #### C MIKKI, LIVER #### [facility] [address] [address] [address] Agueda Wiley PT Coag (PPP) [Time] 10.6 s Normal [facility] Comment on above: Result Comment: Refe rence Range: 18 years and older: 9.1 - 12.0 Performed By: #### C MIKKI LIVER #### [facility] [address] [address] [address] Aguead Wiley Thrombin Time 17.2 sec Normal [facility] Comment on above: Result Comment: Refe rence Range: 0.0 - 23.0 Performed By: #### C MIKKI, LIVER #### [facility] [address] [address] [address] Agueda Wiley VAL by IFAon 09-03-2022 Antinuclear Antibodies, IFA Positive Abnormal [facility] Comment on above: Result Comment: Nega tive <1:80 Borderline 1:80 Positive >1:80 Performed By: #### A NAIFA #### [facility] [address] [place] [address] [address] Agueda Wiley Centriole Pattern Normal [facility] Comment on above: Performed By: #### A NAIFA #### [facility] [address] [place] [address] Dr. Agueda Wiley Centromere Pattern Normal [facility] Comment on above: Performed By: #### A NAIFA #### [facility] [address] [address] [address] Agueda Wiley Homogeneous Pattern 1:320 Critically high [facility] Comment on above: Result Comment: ICAP nomenclature: AC-1 Performed By: #### A NAIFA #### [facility] [address] [place] [address] Dr. Agueda Wiley Midbody Pattern Normal [facility] Comment on above: Performed By: #### A NAIFA #### [facility] [address] [address] [address] Agueda Wiley Note: Comment Normal [facility] Comment on above: Result Comment: For more information about Hep-2 cell patterns use ANApatterns.org, the official website for the International Consensus on Antinuclear Antibody (VAL) Patterns (ICAP). A positive VAL result may occur in healthy individuals (low titer) or be associated with a variety of diseases. See interpretation chart which is not all inclusive: . Pattern Antigen Detected Suggested Disease Association Homogeneous DNA(ds,ss), SLE - High titers Nucleosomes, Histones Drug-induced SLE Speckled Sm, VENEER PRESS OPERATOR, SCL-70, SLE,MCTD,PSS (diffuse form), SS-A/SS-B Sjogrens Nucleolar SCL-70, PM-1/SCL High titers Scleroderma, PM/DM Centromere Centromere PSS (limited form) w/Crest syndrome variable Nuclear Dot [id number] Primary Biliary Cirrhosis Nuclear GP210, Primary Biliary Cirrhosis Membrane hank A,B,C Performed By: #### A NAIFA #### [facility] [address] [place] [address] [address] Agueda Wiley Nuclear Dot Pattern Normal [facility] Comment on above: Performed By: #### A NAIFA #### [facility] [address] [place] [address] [address] Agueda Wiley Nuclear Membrane Pattern Normal [facility] Comment on above: Performed By: #### A NAIFA #### [facility] [address] [place] [address] Dr. Agueda Wiley Nucleolar Pattern Normal [facility] Comment on above: Performed By: #### A NAIFA #### [facility] [address] [place] [address] Dr. Agueda Wiley PCNA Pattern Normal [facility] Comment on above: Performed By: #### A NAIFA #### [facility] [address] [place] [address] Dr. Agueda Wiley Speckled Pattern Normal [facility] Comment on above: Performed By: #### A NAIFA #### [facility] [address] [place] [address] Dr. Agueda Wiley Spindle Apparatus Pattern Normal [facility] Comment on above: Performed By: #### A NAIFA #### [facility] [address] [place] [address] Dr. Agueda Wiley ANTI-DNA DS ABon 09-01-2022 Anti-DNA (DS) Ab Qn 1 IU/mL Normal 0-9 [facility] Comment on above: Result Comment: Nega tive <5 Equivocal 5 - 9 Positive >9 Performed By: #### C MIKKI LIVER #### [facility] [address] [place] [address] Dr. Agueda Wiley ANTICHROMATIN ANTIBODIESon 1 11-02-2021 Antichromatin Antibodies <0.2 Normal 0.0-0.9 [facility] Comment on above: Performed By: #### C MIKKI LIVER #### [facility] [address] [address] [address] Agueda Wiley C3 and C4 COMPLEMENTon 09-01 Complement C3, Serum 79 mg/dL Critically low 82-167 [facility] Comment on above: Performed By: #### C MIKKI, LIVER #### [facility] [address] [address] [address] Agueda Wiley Complement C4, Serum 18 mg/dL Normal 12-38 [facility] Comment on above: Performed By: #### C MIKKI, LIVER #### [facility] [address] [place] [address] [address] Agueda Wiley COMPLEMENT TOTAL (CH50)on Complement, Total (CH50) >60 Normal >41 [facility] Comment on above: Result Comment: Age Male Female 1 - 30 days Not Estab. Not Estab. 31 days - 6 months >32 >20 7 months - 17 years >39 >39 >17 years >41 >41 NOTE: The adult ( >17 years ) reference interval range is used to flag abnormals on this report. If the patient is 17 years old or younger, use the table above to determine out of range values. Performed By: #### C SUITE #### [facility] [address] [place] [address] Dr. Agueda Wiley VENEER PRESS OPERATOR ANTIBODIESon 09-01-2022 VENEER PRESS OPERATOR Antibodies 0.2 AI Normal 0.0-0.9 [facility] Comment on above: Performed By: #### R NPAB #### [facility] [address] [place] [address] Dr. Agueda Wiley SJOGRENS ANTIBODIES (Anti SS A/B)on 09-01-2022 Sjogren's Anti-SS-A <0.2 Normal 0.0-0.9 [facility] Comment on above: Performed By: #### C SUITE #### [facility] [address] [place] [address] Dr. Agueda Wiley Sjogren's Anti-SS-B <0.2 Normal 0.0-0.9 [facility] Comment on above: Performed By: #### C SUITE #### [facility] [address] [address] [address] Agueda Wiley RAMOS ANTIBODIESon Ramos Antibodies 1.0 AI Critically high 0.0-0.9 [facility] Comment on above: Performed By: #### R NPAB #### [facility] [address] [place] [address] Dr. Agueda Wiley CBC AUTO DIFFon 08-31-2022 BASO # 0.1 103/ul Normal 0.0-0.1 [facility] Comment on above: Performed By: #### R NPAB #### [facility] [address] [place] [address] Dr. Agueda Wiley Basophils/100 WBC (Bld) 0.7 % Normal 0.2-2.0 [facility] Comment on above: Performed By: #### R NPAB #### [facility] [address] [place] [address] Dr. Agueda Wiley EO # 0.4 103/ul Normal 0.0-0.7 [facility] Comment on above: Performed By: #### R NPAB #### [facility] [address] [place] [address] Dr. Agueda Wiley Eosinophils/100 WBC (Bld) 6.1 % Normal 0.9-7.0 [facility] Comment on above: Performed By: #### R NPAB #### [facility] [address] [place] [address] Dr. Agueda Wiley Erythrocyte distribution width (RBC) [Ratio] 13.6 % Normal 11.0-15.0 [facility] Comment on above: Performed By: #### R NPAB #### [facility] [address] [place] [address] Dr. Agueda Wiley Hematocrit (Bld) [Volume fraction] 40.4 % Normal 36.0-48.0 [facility] Comment on above: Performed By: #### R NPAB #### [facility] [address] [place] [address] Dr. Agueda Wiley Hemoglobin (Bld) [Mass/Vol] 12.9 g/dL Normal 12.0-16.0 [facility] Comment on above: Performed By: #### R NPAB #### [facility] [address] [address] [address] Agueda Wiley IG # 0.04 10e3/ul Critically high 0.00-0.03 [facility] Comment on above: Performed By: #### R NPAB #### [facility] [address] [address] [address] Agueda Wiley IG % 0.6 % Critically high 0.0-0.5 [facility] Comment on above: Performed By: #### R NPAB #### [facility] [address] [address] [address] Agueda Wiley LYMPH # 1.4 103/ul Normal 1.2-3.8 [facility] Comment on above: Performed By: #### R NPAB #### [facility] [address] [place] [address] Dr. Agueda Wiley Lymphocytes/100 WBC (Bld) 20.6 % Normal 20.5-60.0 [facility] Comment on above: Performed By: #### R NPAB #### [facility] [address] [place] [address] Dr. Agueda Wiley MANUAL DIFF REQ NO Normal [facility] Comment on above: Performed By: #### R NPAB #### [facility] [address] [place] [address] Dr. Agueda Wiley MCH (RBC) [Entitic mass] 29.0 pg Normal 26.7-34.0 [facility] Comment on above: Performed By: #### R NPAB #### [facility] [address] [place] [address] Dr. Agueda Wiley MCHC (RBC) [Mass/Vol] 31.9 g/dL Normal 29.9-35.2 [facility] Comment on above: Performed By: #### R NPAB #### [facility] [address] [place] [address] Dr. Agueda Wiley MCV (RBC) [Entitic vol] 90.8 fL Normal 81.0-99.0 [facility] Comment on above: Performed By: #### R NPAB #### [facility] [address] [address] [address] Agueda iWley MONO # 0.8 103/ul Normal 0.3-0.8 [facility] [facility] Comment on above: Performed By: #### R NPAB #### [facility] [address] [address] [address] Agueda Wiley Monocytes/100 WBC (Bld) 10.9 % Normal 1.7-12.0 [facility] Comment on above: Performed By: #### R NPAB #### [facility] [address] [place] [address] Dr. Agueda Wiley NEUT # 4.2 103/ul Normal 1.4-6.5 [facility] Comment on above: Performed By: #### R NPAB #### [facility] [address] [place] [address] Dr. Agueda Wiley Neutrophils/100 WBC (Bld) 61.1 % Normal 43.0-75.0 [facility] Comment on above: Performed By: #### R NPAB #### [facility] [address] [place] [address] Dr. Agueda Wiley Platelet mean volume (Bld) [Entitic vol] 10.9 fL Normal 9.5-13.5 [facility] Comment on above: Performed By: #### R NPAB #### [facility] [address] [place] [address] Dr. Agueda Wiley PLT 324 103/ul Normal 150-450 [facility] Comment on above: Performed By: #### R NPAB #### [facility] [address] [place] [address] Dr. Agueda Wiley RBC 4.45 106/ul Normal 4.20-5.40 [facility] Comment on above: Performed By: #### R NPAB #### [facility] [address] [place] [address] Dr. Agueda Wiley WBC 6.9 103/ul Normal 4.0-11.0 [facility] Comment on above: Performed By: #### R NPAB #### [facility] [address] [address] [address] Agueda Wiley CREATININEon 08-31-2022 Creatinine [Mass/Vol] 1.00 mg/dL Normal 0.55-1.02 [facility] Comment on above: Performed By: #### A NAIFA #### [facility] [address] [address] [address] Agueda Wiley EGFR-AF GUAMANIAN >60 Normal >=60 [facility] Comment on above: Performed By: #### A NAIFA #### [facility] [address] [address] [address] Agueda Wiley EGFR-NON AF GUAMANIAN 55 mL/min/1.73m2 Critically low >=60 [facility] Comment on above: Performed By: #### A NAIFA #### [facility] [address] [place] [address] Dr. Agueda Wiley CRPon 08-31-2022 CRP 0.8 mg/dL Normal <=1.0 [facility] Comment on above: Performed By: #### C MIKKI, LIVER #### [facility] [address] [place] [address] Dr. Agueda Wiley SED RATE [facility] 2021 SED RATE 85 mm/hr Critically high <=30 [facility] Comment on above: Performed By: #### C MIKKI, LIVER #### [facility] [address] [place] [address] Dr. Agueda Wiley STOOL CULTUREon 08-18-2022 Campylobacter Culture Final report Normal [facility] Comment on above: Performed By: #### C MIKKI, LIVER #### [facility] [address] [place] [address] Dr. Agueda Wiley E coli Shiga Toxin EIA Negative Normal Negative [facility] Comment on above: Performed By: #### C MIKKI, LIVER #### [facility] [address] [place] [address] Dr. Agueda Wiley Result 1 Comment Normal [facility] Comment on above: Result Comment: No S almonella or Shigella recovered. Performed By: #### C MIKKI, LIVER #### [facility] [address] [place] [address] Dr. Agueda Wiley Result Comment: No C ampylobacter species isolated. Salmonella/Shigella Screen Final report Normal [facility] Comment on above: Performed By: #### C MIKKI, LIVER #### [facility] [address] [place] [address] Dr. Agueda Wiley C. DIFF PCRon 08-14-2022 C. DIFFICILE PCR Positive Critically abnormal NEGATIVE [facility] Comment on above: Performed By: #### R NPAB #### [facility] [address] [place] [address] Dr. Agueda Wiley IMMUNOFIXATION(ERIN),PROTEIN ELEC(PE),FREon 08-14-2022 Albumin [Mass/Vol] 3.8 g/dL Normal 2.9-4.4 [facility] Comment on above: Performed By: #### A NAIFA #### [facility] [address] [place] [address] Dr. Agueda Wiley Albumin/Globulin [Mass ratio] 1.3 {ratio} Normal 0.7-1.7 [facility] Comment on above: Performed By: #### A NAIFA #### [facility] [address] [place] [address] Dr. Agueda Wiley Mtimt-9-Vgdflmtm 0.3 g/dL Normal 0.0-0.[address] [facility] Comment on above: Performed By: #### A NAIFA #### [facility] [address] [place] [address] Dr. Agueda Wiley Tjqfy-7-Yehweued 0.9 g/dL Normal 0.4-1.[address] [facility] Comment on above: Performed By: #### A NAIFA #### [facility] [address] [place] [address] Dr. Agueda Wiley Beta Globulin 1.0 g/dL Normal 0.7-1.3 [facility] Comment on above: Performed By: #### A NAIFA #### [facility] [address] [place] [address] Dr. Agueda Wiley Free [place] Lt Chains,S 28.5 mg/L Critically high 3.3-19.4 [facility] Comment on above: Performed By: #### A NAIFA #### [facility] [address] [address] [address] Agueda Wiley Free [place]ambda Lt Chains,S 16.7 mg/L Normal 5.7-26.3 [facility] Comment on above: Performed By: #### A NAIFA #### [facility] [address] [place] [address] Dr. Agueda Wiley Gamma Globulin 0.8 g/dL Normal 0.4-1.8 [facility] Comment on above: Performed By: #### A NAIFA #### [facility] [address] [place] [address] Dr. Agueda Wiley Globulin (S) [Mass/Vol] 3.0 g/dL Normal 2.2-3.9 [facility] Comment on above: Performed By: #### A NAIFA #### [facility] [address] [place] [address] Dr. Agueda Wiley Immunofixation Result, Serum Comment Normal [facility] Comment on above: Result Comment: No m onoclonality detected. Performed By: #### A NAIFA #### [facility] [address] [place] [address] Dr. Agueda Wiley Immunoglobulin A, Qn, Serum 179 mg/dL Normal 87-352 [facility] Comment on above: Performed By: #### A NAIFA #### [facility] [address] [place] [address] Dr. Agueda Wiley Immunoglobulin G, Qn, Serum 902 mg/dL Normal 586-1602 [facility] Comment on above: Performed By: #### A NAIFA #### [facility] [address] [place] [address] Dr. Agueda Wiley Immunoglobulin M, Qn, Serum 81 mg/dL Normal 26-217 [facility] Comment on above: Performed By: #### A NAIFA #### [facility] [address] [address] [address] Agueda Wiley [place]/Lambda Ratio, S 1.71 Critically high 0.26-1.65 [facility] Comment on above: Performed By: #### A NAIFA #### [facility] [address] [place] [address] Dr. Agueda Wiley M-Richard Not Observed Normal Not Observed [facility] Comment on above: Performed By: #### A NAIFA #### [facility] [address] [address] [address] Agueda Wiley PDF . Normal [facility] Comment on above: Performed By: #### A NAIFA #### [facility] [address] [place] [address] Dr. Agueda Wiley Please note: Comment Normal [facility] Comment on above: Result Comment: Prot ein electrophoresis scan will follow via computer, mail, or dynamic etching processor delivery. Performed By: #### A NAIFA #### [facility] [address] [place] [address] Dr. Agueda Wiley Protein [Mass/Vol] 6.8 g/dL Normal 6.0-8.5 [facility] Comment on above: Performed By: #### A NAIFA #### [facility] [address] [place] [address] Dr. Agueda Wiley IMMUNOGLOBULINS IGA/IGM/IGG QUANTITATIVEon 08-14-2022 Immunoglobulin A, Qn, Serum 182 mg/dL Normal 87-352 [facility] Comment on above: Performed By: #### C MIKKI LIVER #### [facility] [address] [place] [address] Dr. Agueda Wiley Immunoglobulin G, Qn, Serum 923 mg/dL Normal 586-1602 [facility] Comment on above: Performed By: #### C MIKKI LIVER #### [facility] [address] [place] [address] Dr. Agueda Wiley Immunoglobulin M, Qn, Serum 82 mg/dL Normal 26-217 [facility] Comment on above: Performed By: #### C MIKKI LIVER #### [facility] [address] [place] [address] Dr. Agueda Wiley CBC AUTO DIFFon 08-13-2022 BASO # 0.0 103/ul Normal 0.0-0.1 [facility] Comment on above: Performed By: #### R NPAB #### [facility] [address] [place] [address] Dr. Agueda Wiley Basophils/100 WBC (Bld) 0.4 % Normal 0.2-2.0 [facility] Comment on above: Performed By: #### R NPAB #### [facility] [address] [place] [address] Dr. Agueda Wiley EO # 0.2 103/ul Normal 0.0-0.7 [facility] Comment on above: Performed By: #### R NPAB #### [facility] [address] [place] [address] Dr. Agueda Wiley Eosinophils/100 WBC (Bld) 1.9 % Normal 0.9-7.0 [facility] Comment on above: Performed By: #### R NPAB #### [facility] [address] [place] [address] Dr. Agueda Wiley Erythrocyte distribution width (RBC) [Ratio] 13.8 % Normal 11.0-15.0 [facility] Comment on above: Performed By: #### R NPAB #### [facility] [address] [place] [address] Dr. Agueda Wiley Hematocrit (Bld) [Volume fraction] 41.4 % Normal 36.0-48.0 [facility] Comment on above: Performed By: #### R NPAB #### [facility] [address] [place] [address] Dr. Agueda Wiley Hemoglobin (Bld) [Mass/Vol] 13.5 g/dL Normal 12.0-16.0 [facility] Comment on above: Performed By: #### R NPAB #### [facility] [address] [place] [address] Dr. Agueda Wiley IG # 0.02 10e3/ul Normal 0.00-0.03 [facility] Comment on above: Performed By: #### R NPAB #### [facility] [address] [place] [address] Dr. Agueda Wiley IG % 0.2 % Normal 0.0-0.5 [facility] Comment on above: Performed By: #### R NPAB #### [facility] [address] [place] [address] Dr. Agueda Wiley LYMPH # 2.0 103/ul Normal 1.2-3.8 [facility] Comment on above: Performed By: #### R NPAB #### [facility] [address] [place] [address] Dr. Agueda Wiley Lymphocytes/100 WBC (Bld) 20.5 % Normal 20.5-60.0 [facility] Comment on above: Performed By: #### R NPAB #### [facility] [address] [place] [address] Dr. Agueda Wiley MANUAL DIFF REQ NO Normal [facility] Comment on above: Performed By: #### R NPAB #### [facility] [address] [place] [address] Dr. Agueda Wiley MCH (RBC) [Entitic mass] 29.1 pg Normal 26.7-34.0 [facility] Comment on above: Performed By: #### R NPAB #### [facility] [address] [place] [address] Dr. Agueda Wiley MCHC (RBC) [Mass/Vol] 32.6 g/dL Normal 29.9-35.2 [facility] Comment on above: Performed By: #### R NPAB #### [facility] [address] [place] [address] Dr. Agueda Wiley MCV (RBC) [Entitic vol] 89.2 fL Normal 81.0-99.0 [facility] Comment on above: Performed By: #### R NPAB #### [facility] [address] [place] [address] Dr. Agueda Wiley MONO # 0.8 103/ul Normal 0.3-0.8 [facility] Comment on above: Performed By: #### R NPAB #### [facility] [address] [address] [address] Agueda Wiley Monocytes/100 WBC (Bld) 8.6 % Normal 1.7-12.0 [facility] Comment on above: Performed By: #### R NPAB #### [facility] [address] [address] [address] Agueda Wiley NEUT # 6.6 103/ul Critically high 1.4-6.5 [facility] Comment on above: Performed By: #### R NPAB #### [facility] [address] [place] [address] Dr. Agueda Wiley Neutrophils/100 WBC (Bld) 68.4 % Normal 43.0-75.0 [facility] Comment on above: Performed By: #### R NPAB #### [facility] [address] [place] [address] Dr. Agueda Wiley Platelet mean volume (Bld) [Entitic vol] 10.0 fL Normal 9.5-13.5 [facility] Comment on above: Performed By: #### R NPAB #### [facility] [address] [place] [address] Dr. Agueda Wiley PLT 379 103/ul Normal 150-450 [facility] Comment on above: Performed By: #### R NPAB #### [facility] [address] [place] [address] Dr. Agueda Wiley RBC 4.64 106/ul Normal 4.20-5.40 [facility] Comment on above: Performed By: #### R NPAB #### [facility] [address] [place] [address] Dr. Agueda Wiley WBC 9.7 103/ul Normal 4.0-11.0 [facility] Comment on above: Performed By: #### R NPAB #### [facility] [address] [place] [address] Dr. Agueda Wiley CRPon 08-13-2022 CRP 0.2 mg/dL Normal <=1.0 [facility] Comment on above: Performed By: #### A NAIFA #### [facility] [address] [address] [address] Agueda Wiley PROF 14(COMP METB)on 022 Albumin [Mass/Vol] 3.4 g/dL Normal 3.4-5.0 [facility] Comment on above: Performed By: #### A NAIFA #### [facility] [address] [address] [address] Agueda Wiley Albumin/Globulin [Mass ratio] 0.8 {ratio} Normal [facility] Comment on above: Performed By: #### A NAIFA #### [facility] [address] [place] [address] Dr. Agueda Wiley ALP [Catalytic activity/Vol] 94 U/L Normal 46-116 [facility] Comment on above: Performed By: #### A NAIFA #### [facility] [address] [place] [address] Dr. Agueda Wiley ALT [Catalytic activity/Vol] 16 U/L Normal 14-59 [facility] Comment on above: Performed By: #### A NAIFA #### [facility] [address] [place] [address] Dr. Agueda Wiley Anion gap [Moles/Vol] 13.0 mmol/L Normal [facility] Comment on above: Performed By: #### A NAIFA #### [facility] [address] [place] [address] Dr. Agueda Wiley AST [Catalytic activity/Vol] 13 U/L Critically low 15-37 [facility] Comment on above: Performed By: #### A NAIFA #### [facility] [address] [place] [address] Dr. Agueda Wiley Bilirubin [Mass/Vol] 0.3 mg/dL Normal 0.2-1.0 [facility] Comment on above: Performed By: #### A NAIFA #### [facility] [address] [place] [address] Dr. Agueda Wiley Calcium [Mass/Vol] 9.1 mg/dL Normal 8.5-10.1 [facility] Comment on above: Performed By: #### A NAIFA #### [facility] [address] [address] [address] Agueda Wiley Chloride [Moles/Vol] 103 mmol/L Normal 98-107 [facility] Comment on above: Performed By: #### A NAIFA #### [facility] [address] [address] [address] Agueda Wiley CO2 [Moles/Vol] 25.8 mmol/L Normal 21.0-32.0 [facility] Comment on above: Performed By: #### A NAIFA #### [facility] [address] [address] [address] Agueda Wiley Creatinine [Mass/Vol] 0.94 mg/dL Normal 0.55-1.02 [facility] Comment on above: Performed By: #### A NAIFA #### [facility] [address] [place] [address] Dr. Agueda Wiley EGFR-AF GUAMANIAN >60 Normal >=60 [facility] Comment on above: Performed By: #### A NAIFA #### [facility] [address] [place] [address] Dr. Agueda Wiley EGFR-NON AF GUAMANIAN 59 mL/min/1.73m2 Critically low >=60 [facility] Comment on above: Performed By: #### A NAIFA #### [facility] [address] [address] [address] Agueda Wiley Globulin (S) [Mass/Vol] 4.1 g/dL Normal [facility] Comment on above: Performed By: #### A NAIFA #### [facility] [address] [address] [address] Agueda Wiley Glucose [Mass/Vol] 110 mg/dL Critically high 74-106 [facility] Comment on above: Performed By: #### A NAIFA #### [facility] [address] [address] [address] Agueda Wiley Potassium [Moles/Vol] 3.8 mmol/L Normal 3.5-5.1 [facility] Comment on above: Performed By: #### A NAIFA #### [facility] [address] [place] [address] Dr. Agueda Wiley Sodium [Moles/Vol] 138 mmol/L Normal 136-145 [facility] Comment on above: Performed By: #### A NAIFA #### [facility] [address] [place] [address] Dr. Agueda Wiley Urea nitrogen [Mass/Vol] 20.0 mg/dL Critically high 7.0-18.0 [facility] Comment on above: Performed By: #### A NAIFA #### [facility] [address] [place] [address] Dr. Agueda Wiley Urea nitrogen/Creatinine [Mass ratio] 21.3 mg/mg Normal [facility] Comment on above: Performed By: #### A NAIFA #### [facility] [address] [place] [address] Dr. Agueda Wiley SED RATE WESTERGRENon 2021 SED RATE 82 mm/hr Critically high <=30 [facility] Comment on above: Performed By: #### R NPAB #### [facility] [address] [place] [address] Dr. Agueda Wiley TOTAL PROTEIN SERUMon 2021 Protein [Mass/Vol] 7.5 g/dL Normal 6.4-8.2 [facility] Comment on above: Performed By: #### A NAIFA #### [facility] [address] [place] [address] Dr. Agueda Wiley XR CHEST 2 Von 08-13-2022 XR CHEST 2 V EXAMINATION: XR CHEST 2 V HISTORY: Mucopurulent chronic bronchitis COMPARISON: 01/16/2020 TECHNIQUE: PA and lateral FINDINGS: LUNGS: Peribronchial thickening. No focal infiltrates VASCULATURE: No increased pulmonary vasculature. PLEURA: No pneumothorax, effusion, or pleural thickening. CARDIAC: No cardiomegaly or cardiac silhouette abnormality. MEDIASTINUM: No visible mass or adenopathy. Aortic atherosclerosis BONES: No fracture or visible bone lesion. OTHER: Negative. IMPRESSION: Peribronchial thickening Electronically authenticated by: TENZIN GENTILE Date: 2022-08-13 18:41 Normal [facility] CBC AUTO DIFFon 08-04-2022 BASO # 0.1 103/ul Normal 0.0-0.1 [facility] Comment on above: Performed By: #### A NAIFA #### [facility] [address] [place] [address] Dr. Agueda Wiley Basophils/100 WBC (Bld) 0.5 % Normal 0.2-2.0 [facility] Comment on above: Performed By: #### A NAIFA #### [facility] [address] [place] [address] Dr. Agueda Wiley EO # 0.1 103/ul Normal 0.0-0.7 [facility] Comment on above: Performed By: #### A NAIFA #### [facility] [address] [place] [address] Dr. Agueda Wiley Eosinophils/100 WBC (Bld) 0.7 % Critically low 0.9-7.0 [facility] Comment on above: Performed By: #### A NAIFA #### [facility] [address] [place] [address] Dr. Agueda Wiley Erythrocyte distribution width (RBC) [Ratio] 14.3 % Normal 11.0-15.0 [facility] Comment on above: Performed By: #### A NAIFA #### [facility] [address] [place] [address] Dr. Agueda Wiley Hematocrit (Bld) [Volume fraction] 37.3 % Normal 36.0-48.0 [facility] Comment on above: Performed By: #### A NAIFA #### [facility] [address] [place] [address] Dr. Agueda Wiley Hemoglobin (Bld) [Mass/Vol] 12.1 g/dL Normal 12.0-16.0 [facility] Comment on above: Performed By: #### A NAIFA #### [facility] [address] [place] [address] Dr. Agueda Wiley IG # 0.03 10e3/ul Normal 0.00-0.03 [facility] Comment on above: Performed By: #### A NAIFA #### [facility] [address] [place] [address] Dr. Agueda Wiley IG % 0.3 % Normal 0.0-0.5 [facility] Comment on above: Performed By: #### A NAIFA #### [facility] [address] [address] [address] Agueda Wiley LYMPH # 1.5 103/ul Normal 1.2-3.8 [facility] Comment on above: Performed By: #### A NAIFA #### [facility] [address] [place] [address] Dr. Agueda Wiley Lymphocytes/100 WBC (Bld) 15.8 % Critically low 20.5-60.0 [facility] Comment on above: Performed By: #### A NAIFA #### [facility] [address] [place] [address] Dr. Agueda Wiley MANUAL DIFF REQ NO Normal [facility] Comment on above: Performed By: #### A NAIFA #### [facility] [address] [place] [address] Dr. Agueda Wiley MCH (RBC) [Entitic mass] 29.6 pg Normal 26.7-34.0 [facility] Comment on above: Performed By: #### A NAIFA #### [facility] [address] [place] [address] Dr. Agueda Wiley MCHC (RBC) [Mass/Vol] 32.4 g/dL Normal 29.9-35.2 [facility] Comment on above: Performed By: #### A NAIFA #### [facility] [address] [place] [address] Dr. Agueda Wiley MCV (RBC) [Entitic vol] 91.2 fL Normal 81.0-99.0 [facility] Comment on above: Performed By: #### A NAIFA #### [facility] [address] [place] [address] Dr. Agueda Wiley MONO # 0.6 103/ul Normal 0.3-0.8 [facility] Comment on above: Performed By: #### A NAIFA #### [facility] [address] [address] [address] Agueda Wiley Monocytes/100 WBC (Bld) 6.2 % Normal 1.7-12.0 [facility] Comment on above: Performed By: #### A NAIFA #### [facility] [address] [place] [address] Dr. Agueda Wiley NEUT # 7.2 103/ul Critically high 1.4-6.5 [facility] Comment on above: Performed By: #### A NAIFA #### [facility] [address] [place] [address] Dr. Agueda Wiley Neutrophils/100 WBC (Bld) 76.5 % Critically high 43.0-75.0 [facility] Comment on above: Performed By: #### A NAIFA #### [facility] [address] [place] [address] Dr. Agueda Wiley Platelet mean volume (Bld) [Entitic vol] 11.0 fL Normal 9.5-13.5 [facility] Comment on above: Performed By: #### A NAIFA #### [facility] [address] [place] [address] Dr. Agueda Wiley PLT 298 103/ul Normal 150-450 [facility] Comment on above: Performed By: #### A NAIFA #### [facility] [address] [place] [address] Dr. Agueda Wiley RBC 4.09 106/ul Critically low 4.20-5.40 [facility] Comment on above: Performed By: #### A NAIFA #### [facility] [address] [place] [address] Dr. Agueda Wiley WBC 9.5 103/ul Normal 4.0-11.0 [facility] Comment on above: Performed By: #### A NAIFA #### [facility] [address] [place] [address] Dr. Agueda Wiley CREATININEon 08-04-2022 Creatinine [Mass/Vol] 0.93 mg/dL Normal 0.55-1.02 [facility] Comment on above: Performed By: #### C MIKKI, LIVER #### [facility] [address] [place] [address] Dr. Agueda Wiley EGFR-AF GUAMANIAN >60 Normal >=60 [facility] Comment on above: Performed By: #### C MIKKI, LIVER #### [facility] [address] [place] [address] Dr. Agueda Wiley EGFR-NON AF GUAMANIAN =60 Normal >=60 [facility] Comment on above: Performed By: #### C MIKKI, LIVER #### [facility] [address] [place] [address] Dr. Agueda Wiley LIVER PROFILEon 08-04-2022 Albumin [Mass/Vol] 3.0 g/dL Critically low 3.4-5.0 [facility] Comment on above: Performed By: #### C MIKKI, LIVER #### [facility] [address] [place] [address] Dr. Agueda Wiley Albumin/Globulin [Mass ratio] 0.7 {ratio} Normal [facility] Comment on above: Performed By: #### C MIKKI, LIVER #### [facility] [address] [place] [address] Dr. Agueda Wiley ALP [Catalytic activity/Vol] 94 U/L Normal 46-116 [facility] Comment on above: Performed By: #### C MIKKI, LIVER #### [facility] [address] [place] [address] Dr. Agueda Wiley ALT [Catalytic activity/Vol] 20 U/L Normal 14-59 [facility] Comment on above: Performed By: #### C MIKKI, LIVER #### [facility] [address] [place] [address] Dr. Agueda Wiley AST [Catalytic activity/Vol] 15 U/L Normal 15-37 [facility] Comment on above: Performed By: #### C MIKKI, LIVER #### [facility] [address] [place] [address] Dr. Agueda Wiley BILI, CONJUGATED 0.1 mg/dL Normal 0.0-0.2 [facility] Comment on above: Performed By: #### C MIKKI, LIVER #### [facility] [address] [place] [address] Dr. Agueda Wiley Bilirubin [Mass/Vol] 0.4 mg/dL Normal 0.2-1.0 [facility] Comment on above: Performed By: #### C MIKKI, LIVER #### [facility] [address] [place] [address] Dr. Agueda Wiley Globulin (S) [Mass/Vol] 4.3 g/dL Normal [facility] Comment on above: Performed By: #### C MIKKI, LIVER #### [facility] [address] [place] [address] Dr. Agueda Wiley Protein [Mass/Vol] 7.3 g/dL Normal 6.4-8.2 [facility] Comment on above: Performed By: #### C MIKKI, LIVER #### [facility] [address] [place] [address] Dr. Agueda Wiley [facility] SED RATE 105 mm/hr Critically high <=30 [facility] Comment on above: Performed By: #### R NPAB #### [facility] [address] [place] [address] Dr. Agueda Wiley CBC AUTO DIFFon 06-09-2022 BASO # 0.1 103/ul Normal 0.0-0.1 [facility] Comment on above: Performed By: #### A NAIFA #### [facility] [address] [place] [address] Dr. Agueda Wiley Basophils/100 WBC (Bld) 0.7 % Normal 0.2-2.0 [facility] Comment on above: Performed By: #### A NAIFA #### [facility] [address] [place] [address] Dr. Agueda Wiley EO # 0.4 103/ul Normal 0.0-0.7 [facility] Comment on above: Performed By: #### A NAIFA #### [facility] [address] [place] [address] Dr. Agueda Wiley Eosinophils/100 WBC (Bld) 3.6 % Normal 0.9-7.0 [facility] Comment on above: Performed By: #### A NAIFA #### [facility] [address] [place] [address] Dr. Agueda Wiley Erythrocyte distribution width (RBC) [Ratio] 13.6 % Normal 11.0-15.0 [facility] Comment on above: Performed By: #### A NAIFA #### [facility] [address] [place] [address] Dr. Agueda Wiley Hematocrit (Bld) [Volume fraction] 38.5 % Normal 36.0-48.0 [facility] Comment on above: Performed By: #### A NAIFA #### [facility] [address] [place] [address] Dr. Agueda Wiley Hemoglobin (Bld) [Mass/Vol] 12.4 g/dL Normal 12.0-16.0 [facility] Comment on above: Performed By: #### A NAIFA #### [facility] [address] [place] [address] Dr. Agueda Wiley IG # 0.07 10e3/ul Critically high 0.00-0.03 [facility] Comment on above: Performed By: #### A NAIFA #### [facility] [address] [place] [address] Dr. Agueda Wiley IG % 0.6 % Critically high 0.0-0.5 [facility] Comment on above: Performed By: #### A NAIFA #### [facility] [address] [place] [address] Dr. Agueda Wiley LYMPH # 2.1 103/ul Normal 1.2-3.8 [facility] Comment on above: Performed By: #### A NAIFA #### [facility] [address] [place] [address] Dr. Agudea Wiley Lymphocytes/100 WBC (Bld) 17.7 % Critically low 20.5-60.0 [facility] Comment on above: Performed By: #### A NAIFA #### [facility] [address] [place] [address] Dr. Agueda Wiley MANUAL DIFF REQ NO Normal [facility] Comment on above: Performed By: #### A NAIFA #### [facility] [address] [place] [address] Dr. Agueda Wiley MCH (RBC) [Entitic mass] 29.4 pg Normal 26.7-34.0 [facility] Comment on above: Performed By: #### A NAIFA #### [facility] [address] [place] [address] Dr. Agueda Wiley MCHC (RBC) [Mass/Vol] 32.2 g/dL Normal 29.9-35.2 [facility] Comment on above: Performed By: #### A NAIFA #### [facility] [address] [place] [address] Dr. Agueda Wiley MCV (RBC) [Entitic vol] 91.2 fL Normal 81.0-99.0 [facility] Comment on above: Performed By: #### A NAIFA #### [facility] [address] [place] [address] Dr. Agueda Wiley MONO # 1.1 103/ul Critically high 0.3-0.8 [facility] Comment on above: Performed By: #### A NAIFA #### [facility] [address] [place] [address] Dr. Agueda Wiley Monocytes/100 WBC (Bld) 9.4 % Normal 1.7-12.0 [facility] Comment on above: Performed By: #### A NAIFA #### [facility] [address] [place] [address] Dr. Agueda Wiley NEUT # 8.0 103/ul Critically high 1.4-6.5 [facility] Comment on above: Performed By: #### A NAIFA #### [facility] [address] [place] [address] Dr. Agueda Wiley Neutrophils/100 WBC (Bld) 68.0 % Normal 43.0-75.0 [facility] Comment on above: Performed By: #### A NAIFA #### [facility] [address] [address] [address] Agueda Wiley Platelet mean volume (Bld) [Entitic vol] 10.7 fL Normal 9.5-13.5 [facility] Comment on above: Performed By: #### A NAIFA #### [facility] [address] [place] [address] Dr. Agueda Wiley PLT 417 103/ul Normal 150-450 [facility] Comment on above: Performed By: #### A NAIFA #### [facility] [address] [address] [address] Agueda Wiley RBC 4.22 106/ul Normal 4.20-5.40 [facility] Comment on above: Performed By: #### A NAIFA #### [facility] [address] [place] [address] Dr. Agueda Wiley WBC 11.8 103/ul Critically high 4.0-11.0 [facility] Comment on above: Performed By: #### A NAIFA #### [facility] [address] [place] [address] Dr. Agueda Wiley PROF CHEM 8 (BAS METB)on Anion gap [Moles/Vol] 15.3 mmol/L Normal [facility] Comment on above: Performed By: #### C MIKKI, LIVER #### [facility] [address] [place] [address] Dr. Agueda Wiley Calcium [Mass/Vol] 8.8 mg/dL Normal 8.5-10.1 [facility] Comment on above: Performed By: #### C MIKKI, LIVER #### [facility] [address] [place] [address] Dr. Agueda Wiley Chloride [Moles/Vol] 106 mmol/L Normal 98-107 [facility] Comment on above: Performed By: #### C MIKKI, LIVER #### [facility] [address] [place] [address] Dr. Agueda Wiley CO2 [Moles/Vol] 23.7 mmol/L Normal 21.0-32.0 [facility] Comment on above: Performed By: #### C MIKKI, LIVER #### [facility] [address] [address] [address] Agueda Wiley Creatinine [Mass/Vol] 1.10 mg/dL Critically high 0.55-1.02 [facility] Comment on above: Performed By: #### C MIKKI, LIVER #### [facility] [address] [place] [address] Dr. Agueda Wiley EGFR-AF GUAMANIAN 60 mL/min/1.73m2 Normal >=60 [facility] Comment on above: Performed By: #### C MIKKI, LIVER #### [facility] [address] [place] [address] Dr. Agueda Wiley EGFR-NON AF GUAMANIAN 50 mL/min/1.73m2 Critically low >=60 [facility] Comment on above: Performed By: #### C MIKKI, LIVER #### [facility] [address] [place] [address] Dr. Agueda Wiley Glucose [Mass/Vol] 126 mg/dL Critically high 74-106 [facility] Comment on above: Performed By: #### C MIKKI, LIVER #### [facility] [address] [place] [address] Dr. Agueda Wiley Potassium [Moles/Vol] 4.0 mmol/L Normal 3.5-5.1 [facility] Comment on above: Performed By: #### C MIKKI, LIVER #### [facility] [address] [place] [address] Dr. Agueda Wiley Sodium [Moles/Vol] 141 mmol/L Normal 136-145 [facility] Comment on above: Performed By: #### C MIKKI, LIVER #### [facility] [address] [place] [address] Dr. Agueda Wiley Urea nitrogen [Mass/Vol] 14.0 mg/dL Normal 7.0-18.0 [facility] Comment on above: Performed By: #### C MIKKI, LIVER #### [facility] [address] [place] [address] Dr. Agueda Wiley Urea nitrogen/Creatinine [Mass ratio] 12.7 mg/mg Normal [facility] Comment on above: Performed By: #### C MIKKI, LIVER #### [facility] [address] [address] [address] Agueda Wiley XR femur LT 2V*on 05-28-2022 XR femur LT 2V* [facility] [employer] Other XR femur LT 2V* [facility] Main [facility] [employer] Other XR femur LT 2V* [address] [place] [address] [employer] Other XR femur LT 2V* [place] [id number] [facility] [employer] Other XR femur LT 2V* XRay Report [facility] [employer] Other XR femur LT 2V* Signed [facility] [employer] Other XR femur LT 2V* Patient: Reba Gregory MR#: [id number] [employer] Other XR femur LT 2V* : 1955 Acct:[id number] [employer] Other XR femur LT 2V* Age/Sex: 66 / F ADM Date: 05/28/22 [employer] Other XR femur LT 2V* [place] [facility] [place] [facility] [employer] Other XR femur LT 2V* Attending Dr: Nabor Nelson II, MD [employer] Other XR femur LT 2V* Copies to: Nabor Nelson MD [employer] Other XR femur LT 2V* Ordering Provider: Nabor Nelson MD [employer] Other XR femur LT 2V* Date of Service: 05/28/22 [employer] Other XR femur LT 2V* XR/XR femur LT 2V*: Aftercare following joint replacement surgery [facility] [employer] Other XR femur LT 2V* ([id number]) XR/XR tibia fibula LT 2V*: Aftercare following joint replacement surgery [facility] [employer] Other XR femur LT 2V* ([id number]) XR/XR knee LT 2V: Aftercare following joint replacement surgery [employer] Other XR femur LT 2V* XR tibia fibula LT 2V*, XR knee LT 2V, XR femur LT 2V* 05/28/2022 8:18 AM [employer] Other XR femur LT 2V* SIGNS AND SYMPTOMS: Aftercare following joint replacement surgery [employer] Other XR femur LT 2V* PROTOCOL: Frontal radiographs of the left femur, left knee, and left tibia and fibula [employer] Other XR femur LT 2V* COMPARISON: 04/16/2022 [employer] Other XR femur LT 2V* FINDINGS: [employer] [facility] [employer] Other XR femur LT 2V* The bones are in anatomic alignment. There is total left knee arthroplasty hardware without [employer] Other XR femur LT 2V* hardware complication or malalignment. No fracture or dislocation. The visualized bony ring of the [employer] Other XR femur LT 2V* pelvis is grossly intact. [employer] Other XR femur LT 2V* XR/XR tibia fibula LT 2V* [employer] Other XR femur LT 2V* IMPRESSION: [employer] [facility] [employer] Other XR femur LT 2V* Status post total left knee arthroplasty hardware placement without hardware complication or [employer] Other XR femur LT 2V* malalignment. [employer] Other XR femur LT 2V* Impression dictated by: Michael Benítez M.D.05/28/2022 11:51 AM [employer] Other XR femur LT 2V* Dictation Location: [place] [address] [employer] Other XR femur LT 2V* Transcribed By: PWS 05/28/22 1151 [employer] Other XR femur LT 2V* Dictated By: Michael Benítez II, MD 05/28/22 1149 [employer] Other XR femur LT 2V* Signed By: [employer] [facility] [employer] Other XR femur LT 2V* 05/28/22 115 [employer] Other CBC W MANUAL DIFFon 05-20-20 ATYPICAL LYMPH # Normal [facility] Comment on above: Performed By: #### A NAIFA #### [facility] [address] [place] [address] Dr. Agueda Wiley ATYPICAL LYMPH % Normal [facility] Comment on above: Performed By: #### A NAIFA #### [facility] [address] [place] [address] Dr. Agueda COOK # Normal 0.0-0.3 [facility] Comment on above: Performed By: #### A NAIFA #### [facility] [address] [place] [address] Dr. Agueda COOK % Normal 0-5 [facility] Comment on above: Performed By: #### A NAIFA #### [facility] [address] [place] [address] Dr. Agueda Wiley BASOM # 0.15 103/ul Critically high 0.00-0.[address] [facility] Comment on above: Performed By: #### A NAIFA #### [facility] [address] [place] [address] Dr. Agueda ORTEGAOM % 1.0 % Normal 0.2-2.0 [facility] Comment on above: Performed By: #### A NAIFA #### [facility] [address] [place] [address] Dr. Agueda Wiley BLAST # Normal [facility] Comment on above: Performed By: #### A NAIFA #### [facility] [address] [place] [address] Dr. Agueda Wiley BLAST % Normal [facility] Comment on above: Performed By: #### A NAIFA #### [facility] [address] [place] [address] Dr. Agueda Wiley CORRECTED WBC Normal 4.0-11.0 [facility] Comment on above: Performed By: #### A NAIFA #### [facility] [address] [place] [address] Dr. Agueda Wiley EOS # 0.00 103/ul Normal 0.00-0.70 [facility] Comment on above: Performed By: #### A NAIFA #### [facility] [address] [place] [address] Dr. Agueda Wiley EOS% 0.0 % Critically low 0.9-7.0 [facility] Comment on above: Performed By: #### A NAIFA #### [facility] [address] [place] [address] Dr. Agueda Wiley HCT 34.4 % Critically low 36.0-48.0 [facility] Comment on above: Performed By: #### A NAIFA #### [facility] [address] [place] [address] Dr. Agueda Wiley HGB 11.1 g/dl Critically low 12.0-16.0 [facility] Comment on above: Performed By: #### A NAIFA #### [facility] [address] [place] [address] Dr. Agueda Wiley LYMPHM # 2.31 103/ul Normal 1.20-3.80 [facility] Comment on above: Performed By: #### A NAIFA #### [facility] [address] [place] [address] Dr. Agueda Wiley LYMPHM% 15.0 % Critically low 20.5-60.0 [facility] Comment on above: Performed By: #### A NAIFA #### [facility] [address] [address] [address] Agueda Wiley MCH 29.1 pg Normal 26.7-34.0 [facility] Comment on above: Performed By: #### A NAIFA #### [facility] [address] [address] [address] Agueda Wiley MCHC 32.3 g/dl Normal 29.9-35.2 [facility] Comment on above: Performed By: #### A NAIFA #### [facility] [address] [place] [address] Dr. Agueda Wiley MCV 90.3 fL Normal 81.0-99.0 [facility] Comment on above: Performed By: #### A NAIFA #### [facility] [address] [place] [address] Dr. Agueda Wiley METAMYELOCYTE # Normal [facility] Comment on above: Performed By: #### A NAIFA #### [facility] [address] [place] [address] Dr. Agueda Wiley METAMYELOCYTE % Normal [facility] Comment on above: Performed By: #### A NAIFA #### [facility] [address] [place] [address] Dr. Agueda Wiley MONOM# 1.39 103/ul Critically high 0.30-0.[address] [facility] Comment on above: Performed By: #### A NAIFA #### [facility] [address] [place] [address] Dr. Agueda Wiley MONOM% 9.0 % Normal 1.7-12.0 [facility] Comment on above: Performed By: #### A NAIFA #### [facility] [address] [place] [address] Dr. Agueda Wiley MPV 11.0 fL Normal 9.5-13.5 [facility] Comment on above: Performed By: #### A NAIFA #### [facility] [address] [place] [address] Dr. Agueda Wiley MYELOCYTE # Normal [facility] Comment on above: Performed By: #### A NAIFA #### [facility] [address] [place] [address] Dr. Agueda Wiley MYELOCYTE % Normal [facility] Comment on above: Performed By: #### A NAIFA #### [facility] [address] [address] [address] Agueda Wiley NRBC Normal [facility] Comment on above: Performed By: #### A NAIFA #### [facility] [address] [place] [address] Dr. Agueda Wiley PLT 333 103/ul Normal 150-450 [facility] Comment on above: Performed By: #### A NAIFA #### [facility] [address] [place] [address] Dr. Agueda Wiley RBC 3.81 106/ul Critically low 4.20-5.40 [facility] Comment on above: Performed By: #### A NAIFA #### [facility] [address] [place] [address] Dr. Agueda Wiley RDW 12.8 % Normal 11.0-15.0 [facility] Comment on above: Performed By: #### A NAIFA #### [facility] [address] [place] [address] Dr. Agueda Wiley SEG # 11.55 103/ul Critically high 1.40-6.50 [facility] Comment on above: Performed By: #### A NAIFA #### [facility] [address] [place] [address] Dr. Agueda Wiley SEG % 75.0 % Normal 43.0-75.0 [facility] Comment on above: Performed By: #### A NAIFA #### [facility] [address] [place] [address] Dr. Agueda Wiley WBC 15.4 103/ul Critically high 4.0-11.0 [facility] Comment on above: Performed By: #### A NAIFA #### [facility] [address] [address] [address] Agueda Wiley PROF 14(COMP METB)on 022 Albumin [Mass/Vol] 1.9 g/dL Critically low 3.4-5.0 [facility] Comment on above: Performed By: #### R NPAB #### [facility] [address] [place] [address] Dr. Agueda Wiley Albumin/Globulin [Mass ratio] 0.7 {ratio} Normal [facility] Comment on above: Performed By: #### R NPAB #### [facility] [address] [place] [address] Dr. Agueda Wiley ALP [Catalytic activity/Vol] 75 U/L Normal 46-116 [facility] Comment on above: Performed By: #### R NPAB #### [facility] [address] [place] [address] Dr. Agueda Wiley ALT [Catalytic activity/Vol] 18 U/L Normal 14-59 [facility] Comment on above: Performed By: #### R NPAB #### [facility] [address] [place] [address] Dr. Agueda Wiley Anion gap [Moles/Vol] 12.4 mmol/L Normal [facility] Comment on above: Performed By: #### R NPAB #### [facility] [address] [place] [address] Dr. Agueda Wiley AST [Catalytic activity/Vol] 20 U/L Normal 15-37 [facility] Comment on above: Performed By: #### R NPAB #### [facility] [address] [place] [address] Dr. Agueda Wiley Bilirubin [Mass/Vol] 0.2 mg/dL Normal 0.2-1.0 [facility] Comment on above: Performed By: #### R NPAB #### [facility] [address] [place] [address] Dr. Agueda Wiley Calcium [Mass/Vol] 7.7 mg/dL Critically low 8.5-10.1 [facility] Comment on above: Performed By: #### R NPAB #### [facility] [address] [address] [address] Agueda Wiley Chloride [Moles/Vol] 108 mmol/L Critically high 98-107 [facility] Comment on above: Performed By: #### R NPAB #### [facility] [address] [place] [address] Dr. Agueda Wiley CO2 [Moles/Vol] 21.9 mmol/L Normal 21.0-32.0 [facility] Comment on above: Performed By: #### R NPAB #### [facility] [address] [address] [address] Agueda Wiley Creatinine [Mass/Vol] 0.81 mg/dL Normal 0.55-1.02 [facility] Comment on above: Performed By: #### R NPAB #### [facility] [address] [place] [address] Dr. Agueda Wiley EGFR-AF GUAMANIAN >60 Normal >=60 [facility] Comment on above: Performed By: #### R NPAB #### [facility] [address] [place] [place] [address] Dr. Agueda Wiley EGFR-NON AF GUAMANIAN >60 Normal >=60 [facility] Comment on above: Performed By: #### R NPAB #### [facility] [address] [address] [address] Agueda Wiley Globulin (S) [Mass/Vol] 2.6 g/dL Normal [facility] Comment on above: Performed By: #### R NPAB #### [facility] [address] [address] [address] Agueda Wiley Glucose [Mass/Vol] 102 mg/dL Normal 74-106 [facility] Comment on above: Performed By: #### R NPAB #### [facility] [address] [address] [address] Agueda Wiley Potassium [Moles/Vol] 3.3 mmol/L Critically low 3.5-5.1 [facility] Comment on above: Performed By: #### R NPAB #### [facility] [address] [place] [address] Dr. Agueda Wiley Protein [Mass/Vol] 4.5 g/dL Critically low 6.4-8.2 [facility] Comment on above: Performed By: #### R NPAB #### [facility] [address] [place] [address] Dr. Agueda Wiley Sodium [Moles/Vol] 139 mmol/L Normal 136-145 [facility] Comment on above: Performed By: #### R NPAB #### [facility] [address] [place] [address] Dr. Agueda Wiley Urea nitrogen [Mass/Vol] 7.0 mg/dL Normal 7.0-18.0 [facility] Comment on above: Performed By: #### R NPAB #### [facility] [address] [place] [address] Dr. Agueda Wiley Urea nitrogen/Creatinine [Mass ratio] 8.6 mg/mg Normal [facility] Comment on above: Performed By: #### R NPAB #### [facility] [address] [place] [address] Dr. Agueda Wiley CBC AUTO DIFFon 05-19-2022 BASO # 0.1 103/ul Normal 0.0-0.1 [facility] Comment on above: Performed By: #### C MIKKI, LIVER #### [facility] [address] [place] [address] Dr. Agueda Wiley Basophils/100 WBC (Bld) 0.4 % Normal 0.2-2.0 [facility] Comment on above: Performed By: #### C MIKKI, LIVER #### [facility] [address] [place] [address] Dr. Agueda Wiley EO # 0.3 103/ul Normal 0.0-0.7 [facility] Comment on above: Performed By: #### C MIKKI, LIVER #### [facility] [address] [place] [address] Dr. Agueda Wiley Eosinophils/100 WBC (Bld) 1.5 % Normal 0.9-7.0 [facility] Comment on above: Performed By: #### C MIKKI, LIVER #### [facility] [address] [place] [address] Dr. Agueda Wiley Erythrocyte distribution width (RBC) [Ratio] 12.5 % Normal 11.0-15.0 [facility] Comment on above: Performed By: #### C MIKKI, LIVER #### [facility] [address] [place] [address] Dr. Agueda Wiley Hematocrit (Bld) [Volume fraction] 37.3 % Normal 36.0-48.0 [facility] Comment on above: Performed By: #### C MIKKI, LIVER #### [facility] [address] [place] [address] Dr. Agueda Wiley Hemoglobin (Bld) [Mass/Vol] 12.0 g/dL Normal 12.0-16.0 [facility] Comment on above: Performed By: #### C MIKKI, LIVER #### [facility] [address] [place] [address] Dr. Agueda Wiley IG # 0.59 10e3/ul Critically high 0.00-0.03 [facility] Comment on above: Performed By: #### C MIKKI, LIVER #### [facility] [address] [place] [address] Dr. Agueda Wiley IG % 3.1 % Critically high 0.0-0.5 [facility] Comment on above: Performed By: #### C MIKKI, LIVER #### [facility] [address] [place] [address] Dr. Agueda Wiley LYMPH # 1.7 103/ul Normal 1.2-3.8 [facility] Comment on above: Performed By: #### C MIKKI, LIVER #### [facility] [address] [place] [address] Dr. Agueda Wiley Lymphocytes/100 WBC (Bld) 8.7 % Critically low 20.5-60.0 [facility] Comment on above: Performed By: #### C MIKKI, LIVER #### [facility] [address] [place] [address] Dr. Agueda Wiley MANUAL DIFF REQ NO Normal [facility] Comment on above: Performed By: #### C MIKKI, LIVER #### [facility] [address] [place] [address] Dr. Agueda Wiley MCH (RBC) [Entitic mass] 28.9 pg Normal 26.7-34.0 [facility] Comment on above: Performed By: #### C MIKKI, LIVER #### [facility] [address] [place] [address] Dr. Agueda Wiley MCHC (RBC) [Mass/Vol] 32.2 g/dL Normal 29.9-35.2 [facility] Comment on above: Performed By: #### C MIKKI, LIVER #### [facility] [address] [place] [address] Dr. Agueda Wiley MCV (RBC) [Entitic vol] 89.9 fL Normal 81.0-99.0 [facility] Comment on above: Performed By: #### C MIKKI, LIVER #### [facility] [address] [place] [address] Dr. Agueda Wiley MONO # 1.3 103/ul Critically high 0.3-0.8 [facility] Comment on above: Performed By: #### C MIKKI, LIVER #### [facility] [address] [place] [address] Dr. Agueda Wiley Monocytes/100 WBC (Bld) 6.8 % Normal 1.7-12.0 [facility] Comment on above: Performed By: #### C MIKKI, LIVER #### [facility] [address] [place] [address] Dr. Agueda Wiley NEUT # 15.2 103/ul Critically high 1.4-6.5 [facility] Comment on above: Performed By: #### C MIKKI, LIVER #### [facility] [address] [place] [address] Dr. Agueda Wiley Neutrophils/100 WBC (Bld) 79.5 % Critically high 43.0-75.0 [facility] Comment on above: Performed By: #### C MIKKI, LIVER #### [facility] [address] [place] [address] Dr. Agueda Wiley Platelet mean volume (Bld) [Entitic vol] 10.3 fL Normal 9.5-13.5 [facility] Comment on above: Performed By: #### C MIKKI, LIVER #### [facility] [address] [place] [address] Dr. Agueda Wiley PLT 328 103/ul Normal 150-450 [facility] Comment on above: Performed By: #### C MIKKI, LIVER #### [facility] [address] [place] [address] Dr. Agueda Wiley RBC 4.15 106/ul Critically low 4.20-5.40 [facility] Comment on above: Performed By: #### C MIKKI, LIVER #### [facility] [address] [place] [address] Dr. Agueda Wiley WBC 19.1 103/ul Critically high 4.0-11.0 [facility] Comment on above: Performed By: #### C MIKKI, LIVER #### [facility] [address] [place] [address] Dr. Agueda Wiley PROF 14(COMP METB)on 022 Albumin [Mass/Vol] 2.0 g/dL Critically low 3.4-5.0 [facility] Comment on above: Performed By: #### R NPAB #### [facility] [address] [place] [address] Dr. Agueda Wiley Albumin/Globulin [Mass ratio] 0.7 {ratio} Normal [facility] Comment on above: Performed By: #### R NPAB #### [facility] [address] [place] [address] Dr. Agueda Wiley ALP [Catalytic activity/Vol] 94 U/L Normal 46-116 [facility] Comment on above: Performed By: #### R NPAB #### [facility] [address] [place] [address] Dr. Agueda Wiley ALT [Catalytic activity/Vol] 16 U/L Normal 14-59 [facility] Comment on above: Performed By: #### R NPAB #### [facility] [address] [place] [address] Dr. Agueda Wiley Anion gap [Moles/Vol] 13.3 mmol/L Normal [facility] Comment on above: Performed By: #### R NPAB #### [facility] [address] [place] [address] Dr. Agueda Wiley AST [Catalytic activity/Vol] 11 U/L Critically low 15-37 [facility] Comment on above: Performed By: #### R NPAB #### [facility] [address] [place] [address] Dr. Agueda Wiley Bilirubin [Mass/Vol] 0.3 mg/dL Normal 0.2-1.0 [facility] Comment on above: Performed By: #### R NPAB #### [facility] [address] [place] [address] Dr. Agueda Wiley Calcium [Mass/Vol] 7.8 mg/dL Critically low 8.5-10.1 [facility] Comment on above: Performed By: #### R NPAB #### [facility] [address] [place] [address] Dr. Agueda Wiley Chloride [Moles/Vol] 107 mmol/L Normal 98-107 [facility] Comment on above: Performed By: #### R NPAB #### [facility] [address] [place] [address] Dr. Agueda Wiley CO2 [Moles/Vol] 20.0 mmol/L Critically low 21.0-32.0 [facility] Comment on above: Performed By: #### R NPAB #### [facility] [address] [place] [address] Dr. Agueda Wiley Creatinine [Mass/Vol] 0.81 mg/dL Normal 0.55-1.02 [facility] Comment on above: Performed By: #### R NPAB #### [facility] [address] [place] [address] Dr. Agueda Wiley EGFR-AF GUAMANIAN >60 Normal >=60 [facility] Comment on above: Performed By: #### R NPAB #### [facility] [address] [place] [address] Dr. Agueda Wiley EGFR-NON AF GUAMANIAN >60 Normal >=60 [facility] Comment on above: Performed By: #### R NPAB #### [facility] [address] [address] [address] Agueda Wiley Globulin (S) [Mass/Vol] 3.0 g/dL Normal [facility] Comment on above: Performed By: #### R NPAB #### [facility] [address] [address] [address] Agueda Wiley Glucose [Mass/Vol] 113 mg/dL Critically high 74-106 [facility] Comment on above: Performed By: #### R NPAB #### [facility] [address] [address] [address] Agueda Wiley Potassium [Moles/Vol] 3.3 mmol/L Critically low 3.5-5.1 [facility] Comment on above: Performed By: #### R NPAB #### [facility] [address] [address] [address] Agueda Wiley Protein [Mass/Vol] 5.0 g/dL Critically low 6.4-8.2 [facility] Comment on above: Performed By: #### R NPAB #### [facility] [address] [place] [address] Dr. Agueda Wiley Sodium [Moles/Vol] 137 mmol/L Normal 136-145 [facility] Comment on above: Performed By: #### R NPAB #### [facility] [address] [address] [address] Agueda Wiley Urea nitrogen [Mass/Vol] 11.0 mg/dL Normal 7.0-18.0 [facility] Comment on above: Performed By: #### R NPAB #### [facility] [address] [address] [address] Agueda Wiley Urea nitrogen/Creatinine [Mass ratio] 13.6 mg/mg Normal [facility] Comment on above: Performed By: #### R NPAB #### [facility] [address] [place] [address] Dr. Agueda Wiley CBC W MANUAL DIFFon 05-18-20 22 ATYPICAL LYMPH # 0.23 103/ul Normal [facility] Comment on above: Performed By: #### C MIKKI, LIVER #### [facility] [address] [place] [address] Dr. Agueda Wiley ATYPICAL LYMPH % 1 % Normal [facility] Comment on above: Performed By: #### C MIKKI, LIVER #### [facility] [address] [place] [address] Dr. Agueda Wiley BAND # 0.0 103/ul Normal 0.0-0.3 [facility] Comment on above: Performed By: #### C MIKKI, LIVER #### [facility] [address] [place] [address] Dr. Agueda Wiley BAND % 0 % Normal 0-5 [facility] Comment on above: Performed By: #### C MIKKI, LIVER #### [facility] [address] [place] [address] Dr. Agueda Wiley BASOM # 0.00 103/ul Normal 0.00-0.10 [facility] Comment on above: Performed By: #### C MIKKI, LIVER #### [facility] [address] [place] [address] Dr. Agueda Wiley BASOM % 0.0 % Critically low 0.2-2.0 [facility] Comment on above: Performed By: #### C MIKKI, LIVER #### [facility] [address] [place] [address] Dr. Agueda Wiley BLAST # Normal [facility] Comment on above: Performed By: #### C MIKKI, LIVER #### [facility] [address] [place] [address] Dr. Agueda Wiley BLAST % Normal [facility] Comment on above: Performed By: #### C MIKKI, LIVER #### [facility] [address] [place] [address] Dr. Agueda Wiley CORRECTED WBC Normal 4.0-11.0 [facility] Comment on above: Performed By: #### C MIKKI, LIVER #### [facility] [address] [place] [address] Dr. Agueda Wiley EOS # 0.23 103/ul Normal 0.00-0.70 [facility] Comment on above: Performed By: #### C MIKKI, LIVER #### [facility] [address] [place] [address] Dr. Agueda Wiley EOS% 1.0 % Normal 0.9-7.0 [facility] Comment on above: Performed By: #### C MIKKI, LIVER #### [facility] [address] [place] [address] Dr. Agueda Wiley HCT 35.7 % Critically low 36.0-48.0 [facility] Comment on above: Performed By: #### C MIKKI, LIVER #### [facility] [address] [place] [address] Dr. Agueda Wiley HGB 11.6 g/dl Critically low 12.0-16.0 [facility] Comment on above: Performed By: #### C MIKKI, LIVER #### [facility] [address] [place] [address] Dr. Agueda Wiley LYMPHM # 1.41 103/ul Normal 1.20-3.80 [facility] Comment on above: Performed By: #### C MIKKI, LIVER #### [facility] [address] [place] [address] Dr. Agueda Wiley LYMPHM% 6.0 % Critically low 20.5-60.0 [facility] Comment on above: Performed By: #### C MIKKI, LIVER #### [facility] [address] [place] [address] Dr. Agueda Wiley MCH 29.4 pg Normal 26.7-34.0 [facility] Comment on above: Performed By: #### C MIKKI, LIVER #### [facility] [address] [place] [address] Dr. Agueda Wiley MCHC 32.5 g/dl Normal 29.9-35.2 [facility] Comment on above: Performed By: #### C MIKKI, LIVER #### [facility] [address] [place] [address] Dr. Agueda Wiley MCV 90.4 fL Normal 81.0-99.0 [facility] Comment on above: Performed By: #### C MIKKI, LIVER #### [facility] [address] [place] [address] Dr. Agueda Wiley METAMYELOCYTE # Normal [facility] Comment on above: Performed By: #### C MIKKI, LIVER #### [facility] [address] [place] [address] Dr. Agueda Wiley METAMYELOCYTE % Normal [facility] Comment on above: Performed By: #### C MIKKI, LIVER #### [facility] [address] [place] [address] Dr. Agueda Wiley MONOM# 0.94 103/ul Critically high 0.30-0.80 [facility] Comment on above: Performed By: #### C MIKKI, LIVER #### [facility] [address] [place] [address] Dr. Agueda Wiley MONOM% 4.0 % Normal 1.7-12.0 [facility] Comment on above: Performed By: #### C MIKKI, LIVER #### [facility] [address] [place] [address] Dr. Agueda Wiley MPV 10.5 fL Normal 9.5-13.5 [facility] Comment on above: Performed By: #### C MIKKI, LIVER #### [facility] [address] [place] [address] Dr. Agueda Wiley MYELOCYTE # Normal [facility] Comment on above: Performed By: #### C MIKKI, LIVER #### [facility] [address] [place] [address] Dr. Agueda Wiley MYELOCYTE % Normal [facility] Comment on above: Performed By: #### C MIKKI, LIVER #### [facility] [address] [place] [address] Dr. Agueda Wiley NRBC Normal [facility] Comment on above: Performed By: #### C MIKKI, LIVER #### [facility] [address] [place] [address] Dr. Agueda Wiley PLT 306 103/ul Normal 150-450 [facility] Comment on above: Performed By: #### C MIKKI, LIVER #### [facility] [address] [address] [address] Agueda Wiley RBC 3.95 106/ul Critically low 4.20-5.40 [facility] Comment on above: Performed By: #### C MIKKI, LIVER #### [facility] [address] [address] [address] Agueda Wiley RDW 12.6 % Normal 11.0-15.0 [facility] Comment on above: Performed By: #### C MIKKI, LIVER #### [facility] [address] [address] [address] Agueda Wiley SEG # 20.68 103/ul Critically high 1.40-6.50 [facility] Comment on above: Performed By: #### C MIKKI, LIVER #### [facility] [address] [address] [address] Agueda Wiley SEG % 88.0 % Critically high 43.0-75.0 [facility] Comment on above: Performed By: #### C MIKKI, LIVER #### [facility] [address] [address] [address] Agueda Wiley WBC 23.5 103/ul Critically high 4.0-11.0 [facility] Comment on above: Performed By: #### C MIKKI, LIVER #### [facility] [address] [address] [address] Agueda Wiley PROF 14(COMP METB)on 022 Albumin [Mass/Vol] 1.8 g/dL Critically low 3.4-5.0 [facility] Comment on above: Performed By: #### C MIKKI, LIVER #### [facility] [address] [address] [address] Agueda Wiley Albumin/Globulin [Mass ratio] 0.6 {ratio} Normal [facility] Comment on above: Performed By: #### C MIKKI, LIVER #### [facility] [address] [address] [address] Agueda Wiley ALP [Catalytic activity/Vol] 107 U/L Normal 46-116 [facility] Comment on above: Performed By: #### C MIKKI, LIVER #### [facility] [address] [place] [address] Dr. Agueda Wiley ALT [Catalytic activity/Vol] 20 U/L Normal 14-59 [facility] Comment on above: Performed By: #### C MIKKI, LIVER #### [facility] [address] [place] [address] Dr. Agueda Wiley Anion gap [Moles/Vol] 14.6 mmol/L Normal [facility] Comment on above: Performed By: #### C MIKKI, LIVER #### [facility] [address] [place] [address] Dr. Agueda Wiley AST [Catalytic activity/Vol] 12 U/L Critically low 15-37 [facility] Comment on above: Performed By: #### C MIKKI, LIVER #### [facility] [address] [place] [address] Dr. Agueda Wiley Bilirubin [Mass/Vol] 0.3 mg/dL Normal 0.2-1.0 [facility] Comment on above: Performed By: #### C MIKKI, LIVER #### [facility] [address] [place] [address] Dr. Agueda Wiley Calcium [Mass/Vol] 7.5 mg/dL Critically low 8.5-10.1 [facility] Comment on above: Performed By: #### C MIKKI, LIVER #### [facility] [address] [place] [address] Dr. Agueda Wiley Chloride [Moles/Vol] 107 mmol/L Normal 98-107 [facility] Comment on above: Performed By: #### C MIKKI, LIVER #### [facility] [address] [place] [address] Dr. Agueda Wiley CO2 [Moles/Vol] 20.4 mmol/L Critically low 21.0-32.0 [facility] Comment on above: Performed By: #### C MIKKI, LIVER #### [facility] [address] [place] [address] Dr. Agueda Wiley Creatinine [Mass/Vol] 0.96 mg/dL Normal 0.55-1.02 [facility] Comment on above: Performed By: #### C MIKKI, LIVER #### [facility] [address] [address] [address] Agueda Wiley EGFR-AF GUAMANIAN >60 Normal >=60 [facility] Comment on above: Performed By: #### C MIKKI, LIVER #### [facility] [address] [address] [address] Agueda Wiley EGFR-NON AF GUAMANIAN 58 mL/min/1.73m2 Critically low >=60 [facility] Comment on above: Performed By: #### C MIKKI, LIVER #### [facility] [address] [address] [address] Agueda Wiley Globulin (S) [Mass/Vol] 2.9 g/dL Normal [facility] Comment on above: Performed By: #### C MIKKI, LIVER #### [facility] [address] [address] [address] Agueda Wiley Glucose [Mass/Vol] 93 mg/dL Normal 74-106 [facility] Comment on above: Performed By: #### C MIKKI, LIVER #### [facility] [address] [address] [address] Agueda Wiley Potassium [Moles/Vol] 3.0 mmol/L Critically low 3.5-5.1 [facility] Comment on above: Performed By: #### C MIKKI, LIVER #### [facility] [address] [place] [address] Dr. Agueda Wiley Protein [Mass/Vol] 4.7 g/dL Critically low 6.4-8.2 [facility] Comment on above: Performed By: #### C MIKKI, LIVER #### [facility] [address] [place] [address] Dr. Agueda Wiley Sodium [Moles/Vol] 138 mmol/L Normal 136-145 [facility] Comment on above: Performed By: #### C MIKKI, LIVER #### [facility] [address] [place] [address] Dr. Agueda Wiley Urea nitrogen [Mass/Vol] 18.0 mg/dL Normal 7.0-18.0 [facility] Comment on above: Performed By: #### C MIKKI, LIVER #### [facility] [address] [place] [address] Dr. Agueda Wiley Urea nitrogen/Creatinine [Mass ratio] 18.8 mg/mg Normal [facility] Comment on above: Performed By: #### C MIKKI, LIVER #### [facility] [address] [place] [address] Dr. Agueda Wiely AMYLASEon 05-17-2022 Amylase [Catalytic activity/Vol] 79 U/L Normal 25-115 [facility] Comment on above: Performed By: #### C SUITE #### [facility] [address] [place] [address] Dr. Agueda Wiley CBC W MANUAL DIFFon 05-17-20 22 ATYPICAL LYMPH # Normal [facility] Comment on above: Performed By: #### C MIKKI, LIVER #### [facility] [address] [place] [address] Dr. Agueda Wiley ATYPICAL LYMPH % Normal [facility] Comment on above: Performed By: #### C MIKKI, LIVER #### [facility] [address] [place] [address] Dr. Agueda Wiley BAND # Normal 0.0-0.3 [facility] Comment on above: Performed By: #### C MIKKI, LIVER #### [facility] [address] [place] [address] Dr. Agueda Wiley BAND % Normal 0-5 [facility] Comment on above: Performed By: #### C MIKKI, LIVER #### [facility] [address] [place] [address] Dr. Agueda Wiley BASOM # 0.00 103/ul Normal 0.00-0.10 [facility] Comment on above: Performed By: #### C MIKKI, LIVER #### [facility] [address] [place] [address] Dr. Agueda Wiley BASOM % 0.0 % Critically low 0.2-2.0 [facility] Comment on above: Performed By: #### C MIKKI, LIVER #### [facility] [address] [place] [address] Dr. Agueda Wiley BLAST # Normal [facility] Comment on above: Performed By: #### C MIKKI, LIVER #### [facility] [address] [place] [address] Dr. Agueda Wiley BLAST % Normal [facility] Comment on above: Performed By: #### C MIKKI, LIVER #### [facility] [address] [place] [address] Dr. Agueda Wiley CORRECTED WBC Normal 4.0-11.0 [facility] Comment on above: Performed By: #### C MIKKI, LIVER #### [facility] [address] [place] [address] Dr. Agueda Wiley EOS # 0.00 103/ul Normal 0.00-0.70 [facility] Comment on above: Performed By: #### C MIKKI, LIVER #### [facility] [address] [place] [address] Dr. Agueda Wiley EOS% 0.0 % Critically low 0.9-7.0 [facility] Comment on above: Performed By: #### C MIKKI, LIVER #### [facility] [address] [place] [address] Dr. Agueda Wiley HCT 43.3 % Normal 36.0-48.0 [facility] Comment on above: Performed By: #### C MIKKI, LIVER #### [facility] [address] [place] [address] Dr. Agueda Wiley HGB 14.4 g/dl Normal 12.0-16.0 [facility] Comment on above: Performed By: #### C MIKKI, LIVER #### [facility] [address] [place] [address] Dr. Agueda Wiley LYMPHM # 2.96 103/ul Normal 1.20-3.80 [facility] Comment on above: Performed By: #### C MIKKI, LIVER #### [facility] [address] [place] [address] Dr. Agueda Wiley LYMPHM% 10.0 % Critically low 20.5-60.0 [facility] Comment on above: Performed By: #### C MIKKI, LIVER #### [facility] [address] [place] [address] Dr. Agueda Wiley MCH 29.4 pg Normal 26.7-34.0 [facility] Comment on above: Performed By: #### C MIKKI, LIVER #### [facility] [address] [place] [address] Dr. Agueda Wiley MCHC 33.3 g/dl Normal 29.9-35.2 [facility] Comment on above: Performed By: #### C MIKKI, LIVER #### [facility] [address] [place] [address] Dr. Agueda Wiley MCV 88.5 fL Normal 81.0-99.0 [facility] Comment on above: Performed By: #### C MIKKI, LIVER #### [facility] [address] [place] [address] Dr. Agueda Wiley METAMYELOCYTE # Normal [facility] Comment on above: Performed By: #### C MIKKI, LIVER #### [facility] [address] [place] [address] Dr. Agueda Wiley METAMYELOCYTE % Normal [facility] Comment on above: Performed By: #### C MIKKI, LIVER #### [facility] [address] [place] [address] Dr. Agueda Wiley MONOM# 1.78 103/ul Critically high 0.30-0.[address] [facility] Comment on above: Performed By: #### C MIKKI, LIVER #### [facility] [address] [place] [address] Dr. Agueda Wiley MONOM% 6.0 % Normal 1.7-12.0 [facility] Comment on above: Performed By: #### C MIKKI, LIVER #### [facility] [address] [place] [address] Dr. Agueda Wiley MPV 10.6 fL Normal 9.5-13.5 [facility] Comment on above: Performed By: #### C MIKKI, LIVER #### [facility] [address] [address] [address] Agueda Wiley MYELOCYTE # Normal [facility] Comment on above: Performed By: #### C MIKKI, LIVER #### [facility] [address] [place] [address] Dr. Agueda Wiley MYELOCYTE % Normal [facility] Comment on above: Performed By: #### C MIKKI, LIVER #### [facility] [address] [place] [address] Dr. Agueda Wiley NRBC Normal [facility] Comment on above: Performed By: #### C MIKKI, LIVER #### [facility] [address] [place] [address] Dr. Agueda Wiley PLT 383 103/ul Normal 150-450 [facility] Comment on above: Performed By: #### C MIKKI, LIVER #### [facility] [address] [place] [address] Dr. Agueda Wiley RBC 4.89 106/ul Normal 4.20-5.40 [facility] Comment on above: Performed By: #### C MIKKI, LIVER #### [facility] [address] [place] [address] Dr. Agueda Wiley RDW 12.7 % Normal 11.0-15.0 [facility] Comment on above: Performed By: #### C MIKKI, LIVER #### [facility] [address] [place] [address] Dr. Agueda Wiley SEG # 24.86 103/ul Critically high 1.40-6.50 [facility] Comment on above: Performed By: #### C MIKKI, LIVER #### [facility] [address] [place] [address] Dr. Agueda Wiley SEG % 84.0 % Critically high 43.0-75.0 [facility] Comment on above: Performed By: #### C MIKKI, LIVER #### [facility] [address] [place] [address] Dr. Agueda Wiley WBC 29.6 103/ul Critically high 4.0-11.0 [facility] Comment on above: Performed By: #### C MIKKI LIVER #### [facility] [address] [address] [address] ABD/PELVIS WO CONon 05-17 CT ABD/PELVIS WO CON EXAM: CT ABD/PELVIS WO CON INDICATION: UNSPECIFIED ABDOMINAL PAIN. COMPARISON: CT abdomen and pelvis 04/12/2018. TECHNIQUE: Multiple contiguous axial CT images of the abdomen and pelvis were obtained without the use of intravenous contrast. Sagittal and coronal reconstructions were performed. Dose reduction techniques were achieved by using: automated exposure control and/or adjustment of mA and /or kV according to patient size and/or use of iterative reconstruction technique. FINDINGS: Evaluation of visceral organs limited by noncontrast technique. LOWER CHEST: Clear lung bases. Extensive mitral annulus calcifications. Small pericardial effusion. ABDOMEN: Diffuse circumferential wall thickening of the colon and rectum with moderate severe pericolonic inflammatory stranding. No evidence of bowel obstruction. No pneumatosis or portal venous gas. No free intra-abdominal air or fluid collection. Trace ascites. Unremarkable liver, gallbladder, pancreas, spleen, adrenal glands, and kidneys. Nonaneurysmal abdominal aorta with moderate to severe atherosclerotic calcifications. No abdominal adenopathy. PELVIS: Hysterectomy. Normal bladder. Small volume free pelvic fluid. No pelvic adenopathy. Bilateral inguinal surgical clips noted. MUSCULOSKELETAL: No acute osseous abnormality or suspicious osseous lesion. Minimal anterolisthesis of L3 on L4 and L4 on L5. Moderate to advanced degenerative changes of the lower number spine. IMPRESSION: Moderate to severe changes of pancolitis, likely infectious/inflammat ory. Electronically authenticated by: FAY BERGERON Date: 2022-05-17 10:55 Normal [facility] CULTURE BLOODon 05-17-2022 Microscopic examination of blood, culture Culture Observations: NO GROWTH AT 5 DAYS. Normal [facility] Comment on above: Performed By: #### C MIKKI LIVER #### [facility] [address] [place], [place] [address] Dr. Agueda Wiley Microscopic examination of blood, culture Culture Observations: NO GROWTH AT 5 DAYS. Normal [facility] Comment on above: Performed By: #### C MIKKI LIVER #### [facility] [address] [place] [address] Dr. Agueda Wiley [facility]on SARS-CoV-2 (COVID-19) RNA JEREMIAH+probe Ql (Unsp spec) Not detected Normal NOT DETECTED [facility] Comment on above: Result Comment: When diagnostic testing is negative, the possibility of a false negative should be considered in the context of a patient's recent exposures and the presence of clinical signs and symptoms consistent with SARS-CoV-2. This test is not yet approved or cleared by the [place] FDA. When there are no FDA-approved or cleared tests available, and other criteria are met, FDA can make tests available under an emergency access mechanism called an Emergency Use Authorization (EUA). The EUA for this test is supported by the [place] of Health and Human Service's declaration that circumstances exist to justify the emergency use of in vitro diagnostics for the detection and/or diagnosis of the virus that causes COVID-19. This EUA will remain in effect for the duration of the COVID-19 declaration justifying emergency of IVDs, unless it is terminated or revoked by the FDA (after which the test may no longer be used). Performed By: #### R NPAB #### [facility] [address] [place] [address] Dr. Agueda Wiley ER URINE PROFILEon 2 Bilirubin Ql (U) Negative Normal NEGATIVE [facility] Comment on above: Performed By: #### R NPAB #### [facility] [address] [place] [address] Dr. Agueda Wiley Clarity (U) CLEAR Normal CLEAR [facility] Comment on above: Performed By: #### R NPAB #### [facility] [address] [place] [address] Dr. Agueda Wiley Color (U) YELLOW Normal YELLOW [facility] Comment on above: Performed By: #### R NPAB #### [facility] [address] [place] [address] Dr. Agueda Wiley ERUAHD A micrscopic examination will be performed if indicated. Normal [facility] Comment on above: Performed By: #### R NPAB #### [facility] [address] [address] [address] Agueda Wiley Glucose Ql (U) Negative Normal NEGATIVE [facility] Comment on above: Performed By: #### R NPAB #### [facility] [address] [place] [address] Dr. Agueda Wiley Hemoglobin Ql (U) Negative Normal NEGATIVE [facility] Comment on above: Performed By: #### R NPAB #### [facility] [address] [address] [address] Agueda Wiley Ketones Ql (U) 15 mg/dl Abnormal NEGATIVE [facility] Comment on above: Performed By: #### R NPAB #### [facility] [address] [place] [address] Dr. Agueda Wiley LEUKOCYTES Negative Normal NEGATIVE [facility] Comment on above: Performed By: #### R NPAB #### [facility] [address] [place] [address] Dr. Agueda Wiley Nitrite Ql (U) Negative Normal NEGATIVE [facility] Comment on above: Performed By: #### R NPAB #### [facility] [address] [place] [address] Dr. Agueda Wiley pH (U) 6.0 [pH] Normal 5-9 [facility] Comment on above: Performed By: #### R NPAB #### [facility] [address] [place] [address] Dr. Agueda Wiley SPEC GRAVITY 1.015 Normal 1.005-<=1.025 [facility] Comment on above: Performed By: #### R NPAB #### [facility] [address] [place] [address] Dr. Agueda Wiley UA PROTEIN Negative Normal NEGATIVE/ TRACE [facility] Comment on above: Performed By: #### R NPAB #### [facility] [address] [place] [address] Dr. Agueda Wiley UR MICRO IND NOT INDICATED Normal [facility] Comment on above: Performed By: #### R NPAB #### [facility] [address] [place] [address] Dr. Agueda Wiley Urobilinogen Qn (U) 0.2 {[place]'U}/dL Normal 0.2 - 1. 0 [facility] Comment on above: Performed By: #### R NPAB #### [facility] [address] [place] [address] Dr. Agueda Wiley GI PANEL (PCR)on 05-17-2022 Adenovirus F 40/41 Not detected Normal NOT DETECTED [facility] Comment on above: Performed By: #### C MIKKI, LIVER #### [facility] [address] [place] [address] Dr. Agueda Wiley Astrovirus Not detected Normal NOT DETECTED [facility] Comment on above: Performed By: #### C MIKKI, LIVER #### [facility] [address] [place] [address] Dr. Agueda Uriostegui. Diff toxin A/B Detected Critically abnormal NOT DETECTED [facility] Comment on above: Performed By: #### C MIKKI, LIVER #### [facility] [address] [place] [address] Dr. Agueda Wiley Campylobacter Not detected Normal NOT DETECTED [facility] Comment on above: Performed By: #### C MIKKI, LIVER #### [facility] [address] [place] [address] Dr. Agueda Wiley Cryptosporidium Not detected Normal NOT DETECTED [facility] Comment on above: Performed By: #### C MIKKI, LIVER #### [facility] [address] [place] [address] Dr. Agueda Wiley Cyclos. Cayetanensis Not detected Normal NOT DETECTED [facility] Comment on above: Performed By: #### C MIKKI, LIVER #### [facility] [address] [place] [address] Dr. Agueda Wiley E. Coli O157 Not Applicable Normal Not Applicable [facility] Comment on above: Performed By: #### C MIKKI, LIVER #### [facility] [address] [place] [address] Dr. Agueda Wiley E. histolytica Not detected Normal NOT DETECTED [facility] Comment on above: Performed By: #### C MIKKI, LIVER #### [facility] [address] [place] [address] Dr. Agueda Wiley EAEC Not detected Normal NOT DETECTED [facility] Comment on above: Performed By: #### C MIKKI, LIVER #### [facility] [address] [address] [address] Agueda Wiley EIEC Not detected Normal NOT DETECTED [facility] Comment on above: Performed By: #### C MIKKI, LIVER #### [facility] [address] [place] [address] Dr. Agueda Wiley EPEC Not detected Normal NOT DETECTED [facility] Comment on above: Performed By: #### C MIKKI, LIVER #### [facility] [address] [place] [address] Dr. Agueda Wiley ETEC Not detected Normal NOT DETECTED [facility] Comment on above: Performed By: #### C MIKKI, LIVER #### [facility] [address] [place] [address] Dr. Agueda Holguin Lamblia Not detected Normal NOT DETECTED [facility] Comment on above: Performed By: #### C MIKKI, LIVER #### [facility] [address] [place] [address] Dr. Agueda LERNER CONTROLS PASSED Normal [facility] Comment on above: Performed By: #### C MIKKI, LIVER #### [facility] [address] [place] [address] Dr. Agueda [facility] GI PANEL BACTERIA Normal [facility] Comment on above: Performed By: #### C MIKKI, LIVER #### [facility] [address] [place] [address] Dr. Agueda ALMEIDA ECOLI GI PANEL DIARRHEAGENIC E.COLI / SHIGELLA Normal [facility] Comment on above: Performed By: #### C MIKKI, LIVER #### [facility] [address] [place] [address] Dr. Agueda ALMEIDA INFO SEE BELOW Normal [facility] Comment on above: Result Comment: EAEC - Enteroaggregative E. Coli EPEC- Enteropathogenic E. Coli ETEC- Enterotoxigenic E. Coli lt/st STEC- Shigella-like toxin-producing E. Coli stx1/stx2 EIEC- Shigella/Enteroinvasive E. Coli Performed By: #### C MIKKI, LIVER #### [facility] [address] [place] [address] Dr. Agueda ALMEIDA PARASITES GI PANEL PARASITES Normal [facility] Comment on above: Performed By: #### C MIKKI, LIVER #### [facility] [address] [place] [address] Dr. Agueda ALMEIDA VIRUS GI PANEL VIRUSES Normal [facility] Comment on above: Performed By: #### C MIKKI, LIVER #### [facility] [address] [place] [address] Dr. Agueda Wiley Norovirus GI/GII Not detected Normal NOT DETECTED [facility] Comment on above: Performed By: #### C MIKKI, LIVER #### [facility] [address] [place] [address] Dr. Agueda Wiley P. Shigelloides Not detected Normal NOT DETECTED [facility] Comment on above: Performed By: #### C MIKKI, LIVER #### [facility] [address] [place] [address] Dr. Agueda Wiley Rotavirus A Not detected Normal NOT DETECTED [facility] Comment on above: Performed By: #### C MIKKI, LIVER #### [facility] [address] [place] [address] Dr. Agueda Wiley Salmonella Not detected Normal NOT DETECTED [facility] Comment on above: Performed By: #### C MIKKI, LIVER #### [facility] [address] [place] [address] Dr. Agueda Wiley Sapovirus Not detected Normal NOT DETECTED [facility] Comment on above: Performed By: #### C MIKKI, LIVER #### [facility] [address] [place] [address] Dr. Agueda Wiley STEC Not detected Normal NOT DETECTED [facility] Comment on above: Performed By: #### C MIKKI, LIVER #### [facility] [address] [place] [address] Dr. Agueda Wiley Vibrio Not detected Normal NOT DETECTED [facility] Comment on above: Performed By: #### C MIKKI, LIVER #### [facility] [address] [place] [address] Dr. Agueda Wiley Vibrio Cholera Not detected Normal NOT DETECTED [facility] Comment on above: Performed By: #### C MIKKI, LIVER #### [facility] [address] [place] [address] Dr. Agueda Wiley Y. Enterocolitica Not detected Normal NOT DETECTED [facility] Comment on above: Performed By: #### C MIKKI, LIVER #### [facility] [address] [place] [address] Dr. Agueda Wiley LACTATE/LACTIC ACIDon 2021 Lactate [Moles/Vol] 1.3 mmol/L Normal 0.4-1.9 [facility] Comment on above: Performed By: #### A NAIFA #### [facility] [address] [place] [address] Dr. Agueda Wiley LIPASEon 05-17-2022 Lipase [Catalytic activity/Vol] 200.0 U/L Normal 73.0-393.0 [facility] Comment on above: Performed By: #### C SUITE #### [facility] [address] [place] [address] Dr. Agueda Wiley PROF 14(COMP METB)on 022 Albumin [Mass/Vol] 2.3 g/dL Critically low 3.4-5.0 [facility] Comment on above: Performed By: #### C SUITE #### [facility] [address] [place] [address] Dr. Agueda Wiley Albumin/Globulin [Mass ratio] 0.6 {ratio} Normal [facility] Comment on above: Performed By: #### C SUITE #### [facility] [address] [place] [address] Dr. Agueda Wiley ALP [Catalytic activity/Vol] 140 U/L Critically high 46-116 [facility] Comment on above: Performed By: #### C SUITE #### [facility] [address] [address] [address] Agueda Wiley ALT [Catalytic activity/Vol] 26 U/L Normal 14-59 [facility] Comment on above: Performed By: #### C SUITE #### [facility] [address] [place] [address] Dr. Agueda Wiley Anion gap [Moles/Vol] 17.5 mmol/L Normal [facility] Comment on above: Performed By: #### C SUITE #### [facility] [address] [address] [address] Agueda Wiley AST [Catalytic activity/Vol] 15 U/L Normal 15-37 [facility] Comment on above: Performed By: #### C SUITE #### [facility] [address] [place] [address] Dr. Agueda Wiley Bilirubin [Mass/Vol] 0.3 mg/dL Normal 0.2-1.0 [facility] Comment on above: Performed By: #### C SUITE #### [facility] [address] [place] [address] Dr. Agueda Wiley Calcium [Mass/Vol] 8.1 mg/dL Critically low 8.5-10.1 [facility] Comment on above: Performed By: #### C SUITE #### [facility] [address] [place] [address] Dr. Agueda Wiley Chloride [Moles/Vol] 98 mmol/L Normal 98-107 [facility] Comment on above: Performed By: #### C SUITE #### [facility] [address] [place] [address] Dr. Agueda Wiley CO2 [Moles/Vol] 21.9 mmol/L Normal 21.0-32.0 [facility] Comment on above: Performed By: #### C SUITE #### [facility] [address] [place] [address] Dr. Agueda Wiley Creatinine [Mass/Vol] 1.00 mg/dL Normal 0.55-1.02 [facility] Comment on above: Performed By: #### C SUITE #### [facility] [address] [address] [address] Agueda Wiley EGFR-AF GUAMANIAN >60 Normal >=60 [facility] Comment on above: Performed By: #### C SUITE #### [facility] [address] [address] [address] Agueda Wiley EGFR-NON AF GUAMANIAN 55 mL/min/1.73m2 Critically low >=60 [facility] Comment on above: Performed By: #### C SUITE #### [facility] [address] [address] [address] Agueda Wiley Globulin (S) [Mass/Vol] 3.8 g/dL Normal [facility] Comment on above: Performed By: #### C SUITE #### [facility] [address] [place] [address] Dr. Agueda Wiley Glucose [Mass/Vol] 119 mg/dL Critically high 74-106 [facility] Comment on above: Performed By: #### C SUITE #### [facility] [address] [address] [address] Agueda Wiley Potassium [Moles/Vol] 3.4 mmol/L Critically low 3.5-5.1 [facility] Comment on above: Performed By: #### C SUITE #### [facility] [address] [place] [address] Dr. Agueda Wiley Protein [Mass/Vol] 6.1 g/dL Critically low 6.4-8.2 [facility] Comment on above: Performed By: #### C SUITE #### [facility] [address] [address] [address] Agueda Wiley Sodium [Moles/Vol] 134 mmol/L Critically low 136-145 [facility] Comment on above: Performed By: #### C SUITE #### [facility] [address] [address] [address] Agueda Wiley Urea nitrogen [Mass/Vol] 19.0 mg/dL Critically high 7.0-18.0 [facility] Comment on above: Performed By: #### C SUITE #### [facility] [address] [address] [address] Agueda Wiley Urea nitrogen/Creatinine [Mass ratio] 19.0 mg/mg Normal [facility] Comment on above: Performed By: #### C SUITE #### [facility] [address] [address] [address] Agueda Wiley PROTIMEon 05-17-2022 INR Coag (PPP) [Relative time] 1.12 {INR} Normal [facility] Comment on above: Performed By: #### C MIKKI, LIVER #### [facility] [address] [place] [address] Dr. Agueda Wiley INR GUIDELINES SEE BELOW Normal [facility] Comment on above: Result Comment: ROSA RED INR: 2.0 - 3.0 CONDITIONS NOT LISTED BELOW 2.5 - 3.5 FOR PROSTHETIC HEART VALVE REPLACEMENT 2.5 - 3.5 RECURRENT THROMBOSIS Performed By: #### C MIKKI, LIVER #### [facility] [address] [address] [address] Agueda Wiley PT Coag (PPP) [Time] 12.0 s Critically high 9.0-11.6 [facility] Comment on above: Performed By: #### C MIKKI, LIVER #### [facility] [id number] Agueda Wiley PTTon 05-17-2022 aPTT Coag (Bld) [Time] 24.8 s Normal 22.3-36.2 [facility] Comment on above: Performed By: #### C MIKKI, LIVER #### [facility] [id number] Agueda Wiley XR knee LT 3Von 04-16-2022 XR knee LT 3V [facility] [employer] Other XR knee LT 3V [facility] [employer] Other XR knee LT 3V [address] [place] [address] [employer] Other XR knee LT 3V [address] [employer] Other XR knee LT 3V XRay Report [employer] Other XR knee LT 3V Signed [facility] Other XR knee LT 3V Patient: Reba Gregory MR#: [id number] [facility] Other XR knee LT 3V : 1955 Acct:[id number] [facility] Other XR knee LT 3V Age/Sex: 66 / F ADM Date: 04/16/22 [facility] Other XR knee LT 3V Loc: [facility] Room: Type: REG CLI [facility] Other XR knee LT 3V Attending Dr: Nabor Nelson II, MD [facility] Other XR knee LT 3V Copies to: Nabor Nelson MD [facility] Other XR knee LT 3V Ordering Provider: Nabor Nelson MD [facility] Other XR knee LT 3V Date of Service: 04/16/22 [facility] Other XR knee LT 3V XR/XR knee LT 3V - NOT FOR ER USE: Aftercare following joint replacement [facility] Other XR knee LT 3V surgery [facility] Other XR knee LT 3V LEFT KNEE - 4 views No rt [employer] Other XR knee LT 3V CLINICAL HISTORY: Follow-up left knee surgery. [facility] Other XR knee LT 3V COMPARISON: Left knee 03/02/2022 [facility] Other XR knee LT 3V FINDINGS: [facility] Other XR knee LT 3V Left knee prosthesis without radiographic complication. No acute bony process. [facility] Other XR knee LT 3V XR/XR knee LT 3V - NOT FOR ER USE [facility] Other XR knee LT 3V IMPRESSION: [employer] Other XR knee LT 3V NO EVIDENCE OF HARDWARE COMPLICATION. [facility] Other XR knee LT 3V Impression dictated by: Dave Espana Jr., DShannonOShannon04/16/2022 10:02 AM [facility] Other XR knee LT 3V Dictation Location: [address] [place] [address] [facility] Other XR knee LT 3V Transcribed By: PWS 04/16/22 1002 [facility] Other XR knee LT 3V Dictated By: Dave Espana Jr, DO 04/16/22 1001 [facility] Other XR knee LT 3V Signed By: [facility] Other XR knee LT 3V 04/16/22 1002 [employer] Other Basophils Auto (Bld) [#/Vol] Ordered By: Nabor Nelson on 03-03-2022 Basophils (Bld) [#/Vol] 0.0 10*3/uL 0.0-0.2 [facility] Basophils/100 WBC Auto (Bld) Ordered By: Nabor Nelson on 03-03-2022 Basophils/100 WBC (Bld) 0.2 % . [facility] Blood hemoglobin measurement (mass/volume)Ordered By: Nabor Nelson on 03-03-2022 Hemoglobin (Bld) [Mass/Vol] 11.4 g/dL 11.8-15.4 [facility] Blood leukocytes automated c ount (number/volume)Ordered By: Nabor Nelson on 03-03-2022 WBC (Bld) [#/Vol] 8.3 10*3/uL 4.5-11.0 [facility] Creatinine and Glomerular fi ltration rate.predicted panel (S/P/Bld)Ordered By: Nabor Nelson on 03-03-2022 Creatinine [Mass/Vol] 0.95 mg/dL 0.44-1.03 [facility] Eosinophils Auto (Bld) [#/Vo l]Ordered By: Nabor Nelson on 03-03-2022 Eosinophils (Bld) [#/Vol] 0.0 10*3/uL 0.0-0.45 [facility] Eosinophils/100 WBC Auto (Bl d)Ordered By: Nabor Nelson on 03-03-2022 Eosinophils/100 WBC (Bld) 0.0 % . [facility] Erythrocyte distribution wid th Auto (RBC) [Ratio]Ordered By: Nabor Nelson on 03-03-2022 Erythrocyte distribution width (RBC) [Ratio] 15.0 % 11.9-15.3 [facility] Estimated glomerular filtrat ion rate (GFR) non- AmericanOrdered By: Nabor Nelson on 03-03-2022 GFR/1.73 sq M.predicted among non-blacks MDRD (S/P/Bld) [Vol rate/Area] 59 mL/Min [facility] Hematocrit Auto (Bld) [Volum e fraction]Ordered By: aNbor Nelson on 03-03-2022 Hematocrit (Bld) [Volume fraction] 33.7 % 34.0-46.4 [facility] - Hematology and Cell countsOrdered By: Nabor Nelson on 03-03-2022 Nucleated RBC/100 WBC (Bld) [Ratio] 0.0 % 0-0.5 [facility] Lymphocytes Auto (Bld) [#/Vo l]Ordered By: Nabor Nelson on 03-03-2022 Lymphocytes (Bld) [#/Vol] 0.8 10*3/uL 1.00-4.8 [facility] Lymphocytes/100 WBC Auto (Bl d)Ordered By: Nabor Nelson on 03-03-2022 Lymphocytes/100 WBC (Bld) 9.6 % . [facility] MCH Auto (RBC) [Entitic mass ]Ordered By: Nabor Nelson on 03-03-2022 MCH (RBC) [Entitic mass] 31.0 pg 24.7-34.3 [facility] MCHC Auto (RBC) [Mass/Vol]Or dered By: Nabor Nelson on 03-03-2022 MCHC (RBC) [Mass/Vol] 33.7 g/dL 32.0-35.0 [facility] MCV Auto (RBC) [Entitic vol] Ordered By: Nabor Nelson on 03-03-2022 MCV (RBC) [Entitic vol] 92.0 fL 80-100 [facility] Monocytes Auto (Bld) [#/Vol] Ordered By: Nabor Nelson on 03-03-2022 Monocytes (Bld) [#/Vol] 1.0 10*3/uL 0.0-0.8 [facility] Monocytes/100 WBC Auto (Bld) Ordered By: Nabor Nelson on 03-03-2022 Monocytes/100 WBC (Bld) 12.6 % . [facility] Neutrophils Auto (Bld) [#/Vo l]Ordered By: Nabor Nelson on 03-03-2022 Neutrophils (Bld) [#/Vol] 6.4 10*3/uL 1.8-7.7 [facility] Neutrophils/100 WBC Auto (Bl d)Ordered By: Nabor Nelson on 03-03-2022 Neutrophils/100 WBC (Bld) 77.6 % . [facility] No Panel InformationOrdered By: Nabor Nelson on 03-03-2022 Estimated GFR () > 60 mL/Min [facility] Comment on above: GFR estimated refere nce range: According to KDOQI guidelines, <60 ml/min/1.73m2 is sufficient to diagnose a patient with chronic kidney disease. Pharmacy Creatinine Clearance (Chem 55.10 [facility] Platelet mean volume Auto (B ld) [Entitic vol]Ordered By: Nabor Nelson on 03-03-2022 Platelet mean volume (Bld) [Entitic vol] 10.5 fL 6.3-10.7 [facility] Platelets Auto (Bld) [#/Vol] Ordered By: Nabor Nelson on 03-03-2022 Platelets (Bld) [#/Vol] 187 10*3/uL 150-450 [facility] RBC Auto (Bld) [#/Vol]Ordere d By: Nabor Nelson on 03-03-2022 RBC (Bld) [#/Vol] 3.66 10*6/uL 3.60-5.00 [facility] Serum or plasma calcium phan urement (mass/volume)Ordered By: Nabor Nelson on 03-03-2022 Calcium [Mass/Vol] 9.2 mg/dL 8.2-10.2 [facility] Serum or plasma chloride wilma surement (moles/volume)Ordered By: Nabor Nelson on 03-03-2022 Chloride [Moles/Vol] 107 mmol/L 95-114 [facility] Serum or plasma glucose phan urement (mass/volume)Ordered By: Nabor Nelson on 03-03-2022 Glucose [Mass/Vol] 157 mg/dL 70-100 [facility] Comment on above: ADA recommended refe rence range Random Glucose Reference Range is dependent on time and content of last meal. Glucose of more than 200 mg/dL in a nonstressed, ambulatory subject supports the diagnosis of Diabetes Mellitus. Serum or plasma potassium me asurement (moles/volume)Ordered By: Nabor Nelson on 03-03-2022 Potassium [Moles/Vol] 4.0 mmol/L 3.5-5.1 [facility] Serum or plasma sodium measu rement (moles/volume)Ordered By: Nabor Nelson on 03-03-2022 Sodium [Moles/Vol] 139 mmol/L 136-146 [facility] Serum or plasma total carbon dioxide measurement (moles/volume)Ordered By: Nabor Nelson on 03-03-2022 CO2 [Moles/Vol] 24.8 mmol/L 22.0-30.[address] [facility] Serum or plasma urea nitroge n measurement (mass/volume)Ordered By: Nabor Nelson on 03-03-2022 Urea nitrogen [Mass/Vol] 12 mg/dL 9-23 [facility] COVID-19 Positive/NegativeOr dered By: Nabor Nelson on 02-26-2022 SARS-CoV-2 (COVID-19) N gene JEREMIAH+probe Ql (Resp) Negative Negative [facility] Comment on above: Testing for SARS-CoV -2 by RT-PCR This test was developed and its performance characteristics determined by [employer] ([employer]) and validated at the [facility]. This test has not been FDA cleared or approved. This test has been authorized by FDA under an Emergency Use Authorization (EUA). This test has been validated in accordance with the FDA's Guidance Document (Policy for Diagnostics Testing in Laboratories Certified to Perform High Complexity Testing under CLIA prior to Emergency Use Authorization for Coronavirus Disease-2019 during the Public Health Emergency) issued on December 14, 2019. This test is only authorized for the duration of time the declaration that circumstances exist justifying the authorization of the emergency use of in vitro diagnostic tests for detection of SARS-CoV-2 virus and/or diagnosis of COVID-19 infection under section 564(b)(1) of the Act, 21 U.S.C. 360bbb-3(b)(1), unless the authorization is terminated or revoked sooner. CBC AUTO DIFFon 01-30-2022 BASO # 0.0 103/ul Normal 0.0-0.1 [facility] Comment on above: Performed By: #### Gila KAYE LIVER #### [facility] [address] [place] [address] Dr. Agueda Wiley Basophils/100 WBC (Bld) 0.6 % Normal 0.2-2.0 [facility] Comment on above: Performed By: #### Gila KAYE LIVER #### [facility] [address] [place] [address] Dr. Agueda Wiley EO # 0.2 103/ul Normal 0.0-0.7 [facility] Comment on above: Performed By: #### Gila KAYE LIVER #### [facility] [address] [place] [address] Dr. Agueda Wiley Eosinophils/100 WBC (Bld) 2.7 % Normal 0.9-7.0 [facility] Comment on above: Performed By: #### Gila KAYE LIVER #### [facility] [address] [place] [address] Dr. Agueda Wiley Erythrocyte distribution width (RBC) [Ratio] 14.0 % Normal 11.0-15.0 [facility] Comment on above: Performed By: #### Gila KAYE LIVER #### [facility] [address] [place] [address] Dr. Agueda Wiley Hematocrit (Bld) [Volume fraction] 42.1 % Normal 36.0-48.0 [facility] Comment on above: Performed By: #### C MIKKI, LIVER #### [facility] [address] [place] [address] Dr. Agueda Wiley Hemoglobin (Bld) [Mass/Vol] 13.8 g/dL Normal 12.0-16.0 [facility] Comment on above: Performed By: #### C MIKKI, LIVER #### [facility] [address] [place] [address] Dr. Agueda Wiley IG # 0.02 10e3/ul Normal 0.00-0.03 [facility] Comment on above: Performed By: #### C MIKKI, LIVER #### [facility] [address] [place] [address] Dr. Agueda Wiley IG % 0.3 % Normal 0.0-0.5 [facility] Comment on above: Performed By: #### C MIKKI, LIVER #### [facility] [address] [place] [address] Dr. Agueda Wiley LYMPH # 1.6 103/ul Normal 1.2-3.8 [facility] Comment on above: Performed By: #### C MIKKI, LIVER #### [facility] [address] [place] [address] Dr. Agueda Wiley Lymphocytes/100 WBC (Bld) 23.3 % Normal 20.5-60.0 [facility] Comment on above: Performed By: #### C MIKKI, LIVER #### [facility] [address] [place] [address] Dr. Agueda Wiley MCH (RBC) [Entitic mass] 29.7 pg Normal 26.7-34.0 [facility] Comment on above: Performed By: #### C MIKKI, LIVER #### [facility] [address] [place] [address] Dr. Agueda Wiley MCHC (RBC) [Mass/Vol] 32.8 g/dL Normal 29.9-35.2 [facility] Comment on above: Performed By: #### C MIKKI, LIVER #### [facility] [address] [place] [address] Dr. Agueda Wiley MCV (RBC) [Entitic vol] 90.7 fL Normal 81.0-99.0 [facility] Comment on above: Performed By: #### C MIKKI, LIVER #### [facility] [address] [place] [address] Dr. Agueda Wiley MONO # 0.8 103/ul Normal 0.3-0.8 [facility] Comment on above: Performed By: #### C MIKKI, LIVER #### [facility] [address] [place] [address] Dr. Agueda Wiley Monocytes/100 WBC (Bld) 10.7 % Normal 1.7-12.0 [facility] Comment on above: Performed By: #### C MIKKI, LIVER #### [facility] [address] [place] [address] Dr. Agueda Wiley NEUT # 4.4 103/ul Normal 1.4-6.5 [facility] Comment on above: Performed By: #### C MIKKI, LIVER #### [facility] [address] [place] [address] Dr. Agueda Wiley Neutrophils/100 WBC (Bld) 62.4 % Normal 43.0-75.0 [facility] Comment on above: Performed By: #### C MIKKI, LIVER #### [facility] [address] [place] [address] Dr. Agueda Wiley Platelet mean volume (Bld) [Entitic vol] 11.0 fL Normal 9.5-13.5 [facility] Comment on above: Performed By: #### C MIKKI, LIVER #### [facility] [address] [place] [address] Dr. Agueda Wiley PLT 270 103/ul Normal 150-450 [facility] Comment on above: Performed By: #### C MIKKI, LIVER #### [facility] [address] [place] [address] Dr. Agueda Wiley RBC 4.64 106/ul Normal 4.20-5.40 [facility] Comment on above: Performed By: #### C MIKKI, LIVER #### [facility] [address] [place] [address] Dr. Agueda Wiley WBC 7.0 103/ul Normal 4.0-11.0 [facility] Comment on above: Performed By: #### C MIKKI, LIVER #### [facility] [address] [place] [address] Dr. Agueda Wiley SAULO- BMP WITH LIPIDon 2021 Anion gap [Moles/Vol] 12.5 mmol/L Normal [facility] Comment on above: Performed By: #### C MIKKI, LIVER #### [facility] [address] [place] [address] Dr. Agueda Wiley Calcium [Mass/Vol] 9.0 mg/dL Normal 8.5-10.1 [facility] Comment on above: Performed By: #### Gila KAYE, LIVER #### [facility] [address] [place] [address] Dr. Agueda Wiley Chloride [Moles/Vol] 105 mmol/L Normal 98-107 [facility] Comment on above: Performed By: #### Gila KAYE, LIVER #### [facility] [address] [place] [address] Dr. Agueda Wiley Cholesterol [Mass/Vol] 246 mg/dL Critically high <=200 [facility] Comment on above: Performed By: #### Gila KAYE, LIVER #### [facility] [address] [place] [address] Dr. Agueda Wiley Cholesterol in HDL [Mass/Vol] 84 mg/dL Critically high 40-60 [facility] Comment on above: Performed By: #### C MIKKI, LIVER #### [facility] [address] [place] [address] Dr. Agueda Wiley Cholesterol in LDL [Mass/Vol] 130.6 mg/dL Normal [facility] Comment on above: Performed By: #### C MIKKI, LIVER #### [facility] [address] [place] [address] Dr. Agueda Wiley CO2 [Moles/Vol] 28.4 mmol/L Normal 21.0-32.0 [facility] Comment on above: Performed By: #### Gila KAYE, LIVER #### [facility] [address] [address] [address] Agueda Wiley Creatinine [Mass/Vol] 0.97 mg/dL Normal 0.55-1.02 [facility] Comment on above: Performed By: #### Gila KAYE, LIVER #### [facility] [address] [address] [address] Agueda Wiley EGFR-AF GUAMANIAN >60 Normal >=[address] [facility] Comment on above: Performed By: #### Gila KAYE LIVER #### [facility] [address] [place] [address] Dr. Agueda Wiley EGFR-NON AF GUAMANIAN 57 mL/min/1.73m2 Critically low >=60 [facility] Comment on above: Performed By: #### Gila KAYE, LIVER #### [facility] [address] [address] [address] Agueda Wiley Glucose [Mass/Vol] 96 mg/dL Normal 74-106 [facility] Comment on above: Performed By: #### Gila KAYE LIVER #### [facility] [address] [place] [address] Dr. Agueda Wiley HDL NORMAL > or = 60 mg/dl - LOW CARDIOVASCULAR RISK <40 mg/dl - HIGH CARDIOVASCULAR RISK Normal [facility] Comment on above: Performed By: #### Gila KAYE, LIVER #### [facility] [address] [place] [address] Dr. Agueda Wiley LDL CALC NORMAL SEE BELOW Normal [facility] Comment on above: Result Comment: <100 mg/dl OPTIMAL 100 - 129 mg/dl NEAR OR ABOVE OPTIMAL 130 - 159 mg/dl BORDERLINE HIGH 160 - 189 mg/dl HIGH >190 mg/dl VERY HIGH Performed By: #### Gila KAYE LIVER #### [facility] [address] [place] [address] Dr. Agueda Wiley Potassium [Moles/Vol] 3.9 mmol/L Normal 3.5-5.1 [facility] Comment on above: Performed By: #### C MIKKI, LIVER #### [facility] [address] [address] [address] Agueda Wiley Sodium [Moles/Vol] 142 mmol/L Normal 136-145 [facility] Comment on above: Performed By: #### C MIKKI, LIVER #### [facility] [address] [address] [address] Agueda Wiley Triglyceride [Mass/Vol] 157 mg/dL Critically high <=150 [facility] Comment on above: Performed By: #### C MIKKI, LIVER #### [facility] [address] [address] [address] Agueda Wiley Urea nitrogen [Mass/Vol] 19.0 mg/dL Critically high 7.0-18.0 [facility] Comment on above: Performed By: #### C MIKKI, LIVER #### [facility] [address] [address] [address] Agueda Wiley Urea nitrogen/Creatinine [Mass ratio] 19.6 mg/mg Normal [facility] Comment on above: Performed By: #### C MIKKI, LIVER #### [facility] [address] [address] [address] Agueda Wiley VLDL CALC 31.4 mg/dL Normal [facility] Comment on above: Performed By: #### C MIKKI, LIVER #### [facility] [address] [address] [address] Agueda Wiley Vital Signs Date Time Vital Sign Value Performing Clinician Facility 09-14-2023 11:15-0500 Body height 151.13 cm Massiel Pereira Other [facility] [employer] Other 09-09-2023 09:30-0500 Body height 151.13 cm Jonathan Smith Other [facility] Other 09-09-2023 09:30-0500 Body mass index (BMI) [Ratio] 33.8 kg/m2 Jonathan Smith Other [facility] Other 09-09-2023 09:30-0500 Body weight 77.2 kg Jonathan Ball Other [facility] Other 09-09-2023 09:30-0500 Diastolic blood pressure 80 mm[Hg] Jonathan Ball Other [facility] Other 09-09-2023 09:30-0500 Respiratory rate 12 /min Jonathan Ball Other [facility] Other 09-09-2023 09:30-0500 Systolic blood pressure 169 mm[Hg] Jonathan Ball Other [facility] Other 08-19-2023 08:30-0500 Body height 151.13 cm [employer] Other [facility] Other 08-19-2023 08:30-0500 Body mass index (BMI) [Ratio] 33.6 kg/m2 [employer] Other [facility] Other 08-19-2023 08:30-0500 Body weight 76.75 kg [employer] Other [facility] Other 08-19-2023 08:30-0500 Diastolic blood pressure 97 mm[Hg] [employer] Other [facility] Other 08-19-2023 08:30-0500 Respiratory rate 18 /min [employer] Other [facility] Other 08-19-2023 08:30-0500 SaO2% (BldA) [Mass fraction] 96 % [employer] Other [facility] Other 08-19-2023 08:30-0500 Systolic blood pressure 128 mm[Hg] [employer] Other [facility] Other 08-17-2023 10:45-0500 Body height 151.13 cm Jonathan Ball Other [facility] Other 08-17-2023 10:45-0500 Body mass index (BMI) [Ratio] 33.8 kg/m2 Jonathan Ball Other [facility] Other 08-17-2023 10:45-0500 Body weight 77.2 kg Jonathan Ball Other [facility] Other 08-17-2023 10:45-0500 Diastolic blood pressure 74 mm[Hg] Jonathan Ball Other [facility] Other 08-17-2023 10:45-0500 Respiratory rate 16 /min Jonathan Ball Other [facility] Other 08-17-2023 10:45-0500 Systolic blood pressure 168 mm[Hg] Jonathan Ball Other [facility] Other 08-03-2023 11:15-0500 Body height 151.13 cm Massiel Pereira Other [facility] Other 06-16-2023 08:45-0400 Body height 151.13 cm [employer] Other [facility] Other 06-16-2023 08:45-0400 Body mass index (BMI) [Ratio] 35.58 kg/m2 [employer] Other [facility] Other 06-16-2023 08:45-0400 Body weight 81.29 kg [employer] Other [facility] Other 06-16-2023 08:45-0400 Diastolic blood pressure 76 mm[Hg] [employer] Ramos Other [facility] Other 06-16-2023 08:45-0400 Respiratory rate 18 /min [employer] Ramos Other [facility] Other 06-16-2023 08:45-0400 SaO2% (BldA) [Mass fraction] 96 % [employer] Other [facility] Other 06-16-2023 08:45-0400 Systolic blood pressure 141 mm[Hg] [employer] Other [facility] Other 06-09-2023 10:00-0400 Body height 151.13 cm Jonathan [employer] Other [facility] Other 06-09-2023 10:00-0400 Body mass index (BMI) [Ratio] 35.78 kg/m2 Jonathan Ball Other [facility] Other 06-09-2023 10:00-0400 Body weight 81.74 kg Jonathan Ball Other [facility] Other 06-09-2023 10:00-0400 Diastolic blood pressure 84 mm[Hg] Jonathan Ball Other [facility] Other 06-09-2023 10:00-0400 Respiratory rate 16 /min Jonathan Ball Other [facility] Other 06-09-2023 10:00-0400 Systolic blood pressure 145 mm[Hg] Jonathan Ball Other [facility] Other 05-12-2023 11:15-0400 Body height 151.13 cm Massiel Pereira Other [facility] Other 05-05-2023 09:15-0400 Body height 151.13 cm [employer] Ramos Other [facility] Other 05-05-2023 09:15-0400 Body mass index (BMI) [Ratio] 37.51 kg/m2 [employer] Other [facility] Other 05-05-2023 09:15-0400 Body weight 85.69 kg [employer]a Ramos Other [facility] Other 05-05-2023 09:15-0400 Diastolic blood pressure 72 mm[Hg] [employer] Ramos Other [facility] Other 05-05-2023 09:15-0400 Respiratory rate 18 /min [employer] Other [facility] Other 05-05-2023 09:15-0400 SaO2% (BldA) [Mass fraction] 97 % [employer] Other [facility] Other 05-05-2023 09:15-0400 Systolic blood pressure 147 mm[Hg] [employer] Ramos Other [facility] Other 04-13-2023 14:00-0400 Body height 151.13 cm Jonathan Ball Other [facility] Other 04-13-2023 14:00-0400 Body mass index (BMI) [Ratio] 39.16 kg/m2 Jonathan Ball Other [facility] Other 04-13-2023 14:00-0400 Body weight 89.45 kg Jonathan Ball Other [facility] Other 04-13-2023 14:00-0400 Diastolic blood pressure 82 mm[Hg] Jonathan Ball Other [facility] Other 04-13-2023 14:00-0400 Respiratory rate 12 /min Jonathan Ball Other [facility] Other 04-13-2023 14:00-0400 Systolic blood pressure 166 mm[Hg] Jonathan Ball Other [facility] Other 04-07-2023 10:00-0400 Body height 151.13 cm [employer] Other [facility] Other 04-07-2023 10:00-0400 Body mass index (BMI) [Ratio] 39.89 kg/m2 [employer] Other [facility] Other 04-07-2023 10:00-0400 Body weight 91.13 kg [employer] Other [facility] Other 04-07-2023 10:00-0400 Diastolic blood pressure 81 mm[Hg] [employer] Other [facility] Other 04-07-2023 10:00-0400 Respiratory rate 18 /min [employer] Other [facility] Other 04-07-2023 10:00-0400 SaO2% (BldA) [Mass fraction] 95 % [employer] Other [facility] Other 04-07-2023 10:00-0400 Systolic blood pressure 171 mm[Hg] [employer] Other [facility] Other 03-04-2023 11:00-0400 Body height 151.13 cm Jonathan Ball Other [facility] Other 03-04-2023 11:00-0400 Body mass index (BMI) [Ratio] 39.48 kg/m2 Jonathan Ball Other [facility] Other 03-04-2023 11:00-0400 Body weight 90.18 kg Jonathan Ball Other [facility] Other 03-04-2023 11:00-0400 Diastolic blood pressure 83 mm[Hg] Jonathan Ball Other [facility] Other 03-04-2023 11:00-0400 Respiratory rate 12 /min Jonathan Ball Other [facility] Other 03-04-2023 11:00-0400 Systolic blood pressure 149 mm[Hg] Jonathan Ball Other [facility] Other 02-17-2023 08:45-0400 Body height 151.13 cm Nabor Millard II Other [facility] Other 02-17-2023 08:45-0400 Body mass index (BMI) [Ratio] 38.92 kg/m2 Nabor Millard II Other [facility] Other 02-17-2023 08:45-0400 Body weight 88.91 kg Nabor Omar II Other [facility] Other 11-25-2022 09:30-0400 Body height 151.13 cm Jonathan Ball Other [facility] Other 11-25-2022 09:30-0400 Body mass index (BMI) [Ratio] 39.04 kg/m2 Jonathan Ball Other [facility] Other 11-25-2022 09:30-0400 Body weight 89.18 kg Jonathan Ball Other [facility] Other 11-25-2022 09:30-0400 Diastolic blood pressure 82 mm[Hg] Jonathan Ball Other [facility] Other 11-25-2022 09:30-0400 Respiratory rate 16 /min Jonathan Ball Other [facility] Other 11-25-2022 09:30-0400 SaO2% (BldA) [Mass fraction] 97 % Jonathan Ball Other [facility] Other 11-25-2022 09:30-0400 Systolic blood pressure 144 mm[Hg] Jonathan Ball Other [facility] Other 10-15-2022 10:15-0500 Body height 151.13 cm George Ryan Other [facility] Other 10-15-2022 10:15-0500 Body mass index (BMI) [Ratio] 36.34 kg/m2 George Ryan Other [facility] Other 10-15-2022 10:15-0500 Body temperature 97.8 [degF] George Ryan Other [facility] Other 10-15-2022 10:15-0500 Body weight 83.01 kg George Ryan Other [facility] Other 10-15-2022 10:15-0500 Diastolic blood pressure 78 mm[Hg] George Ryan Other [facility] Other 10-15-2022 10:15-0500 SaO2% (BldA) [Mass fraction] 97 % George Ryan Other [facility] Other 10-15-2022 10:15-0500 Systolic blood pressure 132 mm[Hg] George Ryan Other [facility] Other 10-02-2022 14:45-0500 Body height 151.13 cm Jonathan Ball Other [facility] Other 10-02-2022 14:45-0500 Body mass index (BMI) [Ratio] 36.34 kg/m2 Jonathan Ball Other [facility] Other 10-02-2022 14:45-0500 Body weight 83.01 kg Jonathan Ball Other [facility] Other 10-02-2022 14:45-0500 Diastolic blood pressure 68 mm[Hg] Jonathan Ball Other [facility] Other 10-02-2022 14:45-0500 Respiratory rate 16 /min Jonathan Ball Other [facility] Other 10-02-2022 14:45-0500 Systolic blood pressure 130 mm[Hg] Jonathan Ball Other [facility] Other 10-01-2022 09:45-0500 Body height 151.13 cm George Ryan Other [facility] Other 10-01-2022 09:45-0500 Body mass index (BMI) [Ratio] 35.74 kg/m2 George Ryan Other [facility] Other 10-01-2022 09:45-0500 Body temperature 97.8 [degF] George Ryan Other [facility] Other 10-01-2022 09:45-0500 Body weight 81.65 kg George Ryan Other [facility] Other 10-01-2022 09:45-0500 Diastolic blood pressure 84 mm[Hg] George Ryan Other [facility] Other 10-01-2022 09:45-0500 SaO2% (BldA) [Mass fraction] 91 % George Ryan Other [facility] Other 10-01-2022 09:45-0500 Systolic blood pressure 148 mm[Hg] George Ryan Other [facility] Other 09-21-2022 10:15-0500 Body height 151.13 cm Jonathan Ball Other [facility] Other 09-21-2022 10:15-0500 Body mass index (BMI) [Ratio] 36.34 kg/m2 Jonathan Ball Other [facility] Other 09-21-2022 10:15-0500 Body weight 83.01 kg Jonathan Ball Other [facility] Other 09-21-2022 10:15-0500 Diastolic blood pressure 90 mm[Hg] Jonathan Ball Other [facility] Other 09-21-2022 10:15-0500 Respiratory rate 16 /min Jonathan Ball Other [facility] Other 09-21-2022 10:15-0500 Systolic blood pressure 148 mm[Hg] Jonathan Ball Other [facility] Other 09-17-2022 13:00-0500 Body height 151.13 cm George Del Realsj Other [facility] Other 09-17-2022 13:00-0500 Body mass index (BMI) [Ratio] 35.35 kg/m2 George Shelby Other [facility] Other 09-17-2022 13:00-0500 Body temperature 97.1 [degF] George Shelby Other [facility] Other 09-17-2022 13:00-0500 Body weight 80.74 kg George Del Realsj Other [facility] Other 09-17-2022 13:00-0500 Diastolic blood pressure 82 mm[Hg] George Shelby Other [facility] Other 09-17-2022 13:00-0500 SaO2% (BldA) [Mass fraction] 97 % George Del Realsj Other [facility] Other 09-17-2022 13:00-0500 Systolic blood pressure 160 mm[Hg] George Ryan Other [facility] Other 05-28-2022 09:15-0400 Body height 151.13 cm Nabor Nelson II Other [facility] Other 05-28-2022 09:15-0400 Body mass index (BMI) [Ratio] 35.35 kg/m2 Nabor Nelson II Other [facility] Other 05-28-2022 09:15-0400 Body weight 80.74 kg Nabor Millard II Other [facility] Other 04-16-2022 09:15-0400 Body height 151.13 cm Nabor Omar II Other [facility] Other 04-16-2022 09:15-0400 Body mass index (BMI) [Ratio] 35.35 kg/m2 Nabor Millard II Other [facility] Other 04-16-2022 09:15-0400 Body weight 80.74 kg Nabor Millard II Other [facility] Other 03-18-2022 11:45-0400 Body height 151.13 cm Nabor Millard II Other [facility] Other 03-18-2022 11:45-0400 Body mass index (BMI) [Ratio] 35.54 kg/m2 Nabor Millard II Other [facility] Other 03-18-2022 11:45-0400 Body weight 81.19 kg Nabor Omar II Other [facility] Other 03-03-2022 11:53-0400 Heart rate 95 /min DO Jonathan Ball Work Phone: [facility] 03-03-2022 11:53-0400 Respiratory rate 20 /min DO Jonathan Ball Work Phone: [facility] 03-03-2022 11:25-0400 Body temperature 99.2 [degF] DO Jonathan Ball Work Phone: [facility] 03-03-2022 11:25-0400 Diastolic blood pressure 81 mm[Hg] DO Jonathan Ball Work Phone: [facility] 03-03-2022 11:25-0400 Inhaled oxygen flow rate 2 L/min DO Jonathan Ball Work Phone: [facility] 03-03-2022 11:25-0400 SaO2% (BldA) [Mass fraction] 95 % DO Jonathan Ball Work Phone: [facility] 03-03-2022 11:25-0400 Systolic blood pressure 149 mm[Hg] DO Jonathan Ball Work Phone: [facility] 03-03-2022 06:00-0400 Body weight 83.8 kg DO Jonathan Ball Work Phone: [facility] 03-02-2022 10:15-0400 Body height 153.67 cm DO Jonathan Ball Work Phone: [facility] 03-02-2022 10:15-0400 Body mass index (BMI) [Ratio] 35.4 kg/m2 DO Jonathan Ball Work Phone: [facility] 02-11-2022 15:00-0400 Body height 151.13 cm Nabor Millard II Other [facility] Other 02-11-2022 15:00-0400 Body mass index (BMI) [Ratio] 35.74 kg/m2 Nabor Omar II Other [facility] Other 02-11-2022 15:00-0400 Body weight 81.65 kg Nabor Omar II Other [facility] Other 11-20-2021 14:00-0500 Body height 151.13 cm Nabor Millard II Other [facility] Other 11-20-2021 14:00-0500 Body mass index (BMI) [Ratio] 36.54 kg/m2 Nabor Millard II Other [facility] Other 11-20-2021 14:00-0500 Body weight 83.46 kg Nabor Millard II Other [facility] Other Encounters Encounter Date Encounter Type Care Provider Facility Start: 09-14-2023 IBT FOR OBESITY GROU P 2-10 30M Massiel Fitt [facility] Start: 09-14-2023 End: 09-14-2023 ambulatory Jonathan Ball Facility:[facility] Start: 09-10-2023 End: 09-10-2023 ambulatory Jonathan Smith Other [facility] Other Start: 09-10-2023 Telephone encounter Jonathan [facility] Start: 09-09-2023 End: 09-09-2023 ambulatory Jonathan Smith Other [facility] Other Start: 09-09-2023 Office outpatient vi sit 25 minutes Jonathan Ball [facility] Start: 08-19-2023 End: 08-19-2023 ambulatory Olayinka Ramos Other [facility] Other Start: 08-19-2023 Follow-up encounter Olayinka Ramos [facility] Start: 08-18-2023 End: 08-18-2023 ambulatory Jonathan Smith Other [facility] Other Start: 08-18-2023 Telephone encounter Jonathan Smith [facility] Start: 08-17-2023 End: 08-17-2023 ambulatory Jonathan Smith Other [facility] Other Start: 08-17-2023 Office outpatient vi sit 15 minutes Jonathan Ball [facility] Start: 08-03-2023 End: 08-03-2023 ambulatory Massiel Fitt Other [facility] Other Start: 08-03-2023 IBT FOR OBESITY GROU P 2-10 30M Massiel Fitt [facility] Start: 07-14-2023 End: 07-14-2023 ambulatory Jonathan Smith Other [facility] Other Start: 07-14-2023 Telephone encounter Jonathan Smith [facility] Start: 07-08-2023 End: 07-08-2023 ambulatory Olayinka Ramos Other [facility] Other Start: 07-08-2023 Telephone encounter Olayinka Keller [facility] Start: 07-06-2023 End: 07-06-2023 ambulatory Massiel Fitt Other [facility] Other Start: 07-06-2023 IBT FOR OBESITY GROU P 2-10 30M [facility] Start: 07-02-2023 End: 07-02-2023 ambulatory Jonathan Smith Other [facility] Other Start: 07-02-2023 Telephone encounter Jonathan [facility] Start: 06-16-2023 End: 06-16-2023 ambulatory Olayinka Ramos Other [facility] Other Start: 06-16-2023 Follow-up encounter Olayinka stewart [facility] Start: 06-09-2023 End: 06-09-2023 ambulatory Jonathan Smith Other [facility] Other Start: 06-09-2023 Office outpatient vi sit 25 minutes Jonathan Smith [facility] Start: 06-09-2023 Telephone encounter Jonathan [facility] Start: 06-01-2023 End: 06-01-2023 ambulatory Massiel Fitt Other [facility] Other Start: 06-01-2023 IBT FOR OBESITY GROU P 2-10 30M [facility] Start: 05-25-2023 End: 05-25-2023 ambulatory Jonathan Smith Other [facility] Other Start: 05-25-2023 Telephone encounter Jonathan Smith [facility] Start: 05-12-2023 End: 05-12-2023 ambulatory Massielcorwin Pereira Other [facility] Other Start: 05-12-2023 IBT FOR OBESITY GROU P 2-10 30M Massielcorwin Pereira [facility] Start: 05-05-2023 End: 05-05-2023 ambulatory Olayinka Ramos Other [facility] Other Start: 05-05-2023 Follow-up encounter Olayinka Richard Keller [facility] Start: 05-05-2023 Telephone encounter Olayinka Ramos Krishna [facility] Start: 04-24-2023 End: 04-24-2023 ambulatory Jonathan Smith Other [facility] Other Start: 04-24-2023 Telephone encounter Jonathan Smith [facility] Start: 04-21-2023 End: 04-21-2023 ambulatory Jonathan Smith Facility:[facility] Start: 04-13-2023 End: 04-13-2023 ambulatory Jonathan Smith Other [facility] Other Start: 04-13-2023 Office outpatient vi sit 25 minutes Jonathan Smith [facility] Start: 04-08-2023 End: 04-08-2023 ambulatory Jonathan Smith Other [facility] Other Start: 04-08-2023 Telephone encounter Jonathan Smith [facility] Start: 04-07-2023 End: 04-07-2023 ambulatory Olayinka Ramos Other [facility] Other Start: 04-07-2023 Nutrition therapy Olayinka [facility] Start: 03-12-2023 End: 03-12-2023 ambulatory Jonathan Smith Other [facility] Other Start: 03-12-2023 Telephone encounter Jonathan Smith [facility] Start: 03-04-2023 End: 03-04-2023 ambulatory Jonathan Smith Other [facility] Other Start: 03-04-2023 Patient encounter procedure Jonathan Smith [facility] Start: 03-03-2023 Office outpatient vi sit 15 minutes Kiana Munson [facility] Start: 03-03-2023 End: 03-03-2023 ambulatory Kiana Munson Facility:[facility] Start: 03-03-2023 End: 03-03-2023 ambulatory DO Jonathan Ball Work Phone: [facility] Work Phone: Start: 03-03-2023 End: 03-03-2023 Patient encounter procedure DO Jonathan Ball Work Phone: [facility] Start: 02-17-2023 End: 02-17-2023 Patient encounter procedure DO Jonathan Ball Work Phone: [facility] Start: 02-17-2023 End: 02-17-2023 ambulatory Jonathan Smith Facility:[facility] Start: 02-17-2023 End: 02-17-2023 ambulatory DO Jonathan Ball Work Phone: [facility] Work Phone: Start: 02-03-2023 End: 02-03-2023 ambulatory Jonathan Smith Facility:[facility] Start: 02-03-2023 End: 02-03-2023 Patient encounter procedure DO Jonathan Ball Work Phone: [facility]-Lab [address] Work Phone: Start: 01-21-2023 End: 01-22-[address] NABOR WILSON Facility: Start: 11-27-2022 Telephone encounter Jonathan Smith [facility] Start: 11-27-2022 End: 11-28-[address] NABOR WILSON [facility] [employer] Other Start: 11-25-2022 End: 11-25-2022 ambulatory Jonathan Smith Other [facility] Other Start: 11-25-2022 Office outpatient vi sit 25 minutes Jonathan Ball [facility] Start: 10-28-2022 End: 10-28-2022 ambulatory Kiana Cairosales Other [facility] Other Start: 10-28-2022 Office outpatient vi sit 15 minutes Kiana Jeimy [facility] Start: 10-15-2022 End: 10-15-2022 ambulatory George Ryan Other [employer] Other Start: 10-15-2022 Office outpatient vi sit 10 minutes George Shelby [facility] V[facility] Surgery Start: 10-08-2022 End: 10-08-2022 ambulatory Jonathan Smith Facility:[facility] Start: 10-08-2022 End: 10-08-2022 ambulatory DO Jonathan Ball Work Phone: [facility] Work Phone: Start: 10-08-2022 End: 10-08-2022 Patient encounter procedure DO Jonathan Ball Work Phone: [facility]-Lab [address] [place] Work Phone: Start: 10-07-2022 End: 10-07-2022 ambulatory Kiana Cairosales Other [facility] [employer] Other Start: 10-07-2022 Office outpatient vi sit 15 minutes Kiana Ayalarosales [facility] Start: 10-05-2022 End: 10-06-[address] NABOR WILSON Facility:[facility] Start: 10-05-2022 End: 10-05-2022 ambulatory DO Jonathan Ball Work Phone: [facility] Work Phone: Start: 10-05-2022 End: 10-05-2022 Patient encounter procedure DO Jonathan Ball Work Phone: [facility]-CT Scan [address] [place] Work Phone: Start: 10-02-2022 End: 10-02-2022 ambulatory Jonathan Smith Other [facility] Other Start: 10-02-2022 Office outpatient vi sit 15 minutes Jonathan Earl [facility] Start: 10-01-2022 End: 10-01-2022 ambulatory George Ryan Other [facility] Other Start: 10-01-2022 Office outpatient vi sit 25 minutes George Ryan [facility] Start: 09-29-[address] Jonathan Smith Facility:[facility] Start: 09-28-2022 End: 09-28-2022 ambulatory Jonathan Smith Other [facility] Other Start: 09-28-2022 Telephone encounter Jonathan Smith [facility] Start: 09-24-2022 End: 09-24-2022 ambulatory George Ryan Facility:[facility] Start: 09-24-2022 End: 09-24-2022 ambulatory DO Jontahan Smith Work Phone: [facility] Work Phone: Start: 09-24-2022 End: 09-24-2022 Patient encounter procedure DO Jonathan Smith Work Phone: [facility]-Electrodiagnostics Work Phone: Start: 09-24-[address] Jonathan Smith Facility:[id number] Start: 09-23-2022 End: 09-23-2022 ambulatory Kiana Munson Facility:[facility] Start: 09-23-2022 End: 09-23-2022 Patient encounter procedure DO Jonathan Earl Work Phone: [facility] Start: 09-23-2022 End: 09-23-2022 ambulatory DO Jonathan Earl Work Phone: [facility] Work Phone: Start: 09-23-2022 Office outpatient ne w 45 minutes Kiana Munson [facility] Start: 09-21-2022 End: 09-21-2022 ambulatory Jonathan Smith Other [facility] Other Start: 09-21-2022 Office outpatient vi sit 25 minutes Jonathan Smith [facility] Start: 09-17-2022 Office outpatient vi sit 25 minutes George Ryan [facility] Vascular Surgery Start: 09-17-2022 End: 09-17-2022 ambulatory George Ryan Facility:[facility] Start: 09-17-2022 End: 09-17-2022 ambulatory DO Jonathan Smith Work Phone: [facility] Work Phone: Start: 09-17-2022 End: 09-17-2022 Patient encounter procedure DO Jonathan Earl Work Phone: [facility]-Ultrasound [facility] Start: 09-08-2022 End: 09-08-2022 ambulatory DO Jonathan Smith Work Phone: [facility] Work Phone: Start: 09-08-2022 End: 09-08-2022 Patient encounter procedure DO Jonathan Smith Work Phone: [facility]-CT Scan [facility] [place] Work Phone: Start: 08-31-2022 End: 09-01-[address] NABOR WILSON Facility:[facility] Start: 08-24-2022 Adult health examination Olayinka Ramos Other [facility] Other Start: 08-24-2022 Pre-procedure evaluation check Olayinka Ramos Other [facility] Other Start: 08-14-2022 End: 08-14-[address] JONATHAN SMITH Facility:[facility] Start: 08-13-2022 End: 08-14-[address] JONATHAN SMITH Facility:[facility] Start: 08-04-2022 End: 08-05-[address] NABOR WILSON Facility:[facility] Start: 06-09-2022 End: 06-10-[address] JONATHAN SMITH Facility:[facility] Start: 05-28-2022 (Post-Op) Post-Op Nabor Omar II [facility] Start: 05-28-2022 End: 05-28-2022 ambulatory Nabor Millard II Other [facility] Other Start: 05-28-2022 End: 05-28-2022 Patient encounter procedure DO Jonathan Smith Work Phone: [facility] Start: 05-17-2022 End: 05-20-2022 Evaluation and management of inpatient DR YOVANA RG Facility:[facility] Start: 04-16-2022 (Post-Op) Post-Op Nabor Millard II [facility] Start: 04-16-2022 End: 04-16-2022 ambulatory Nabor Millard II Other [facility] Other Start: 04-16-2022 End: 04-16-2022 Patient encounter procedure DO Jonathan Smith Work Phone: [facility] Start: 03-26-2022 (Post-Op) Post-Op Nabor Millard II [facility] Start: 03-26-2022 End: 03-26-2022 ambulatory Nabor Millard II Other [facility] Other Start: 03-24-2022 End: 04-15-[address] JONATHAN SMITH Facility:[facility] Start: 03-18-2022 (Post-Op) Post-Op Nabor Millard II [facility] Start: 03-18-2022 End: 03-18-2022 ambulatory Nabor Millard II Other [facility] Other Start: 03-18-2022 Telephone encounter Nabor Millard II [facility] Start: 03-04-2022 End: 03-04-2022 ambulatory Nabor Omar II Other [facility] Other Start: 03-04-2022 Telephone encounter Nabor Millard II [facility] Start: 03-02-2022 End: 03-03-2022 Admission to same day surgery center DO Jonathan Ball Work Phone: [facility] Main [place] Start: 02-27-2022 End: 02-27-2022 ambulatory Nabor Millard II Other [facility] Other Start: 02-27-2022 Telephone encounter Nabor Millard II [facility] Start: 02-26-2022 End: 02-26-2022 Patient encounter procedure DO Jonathan Ball Work Phone: [facility]-Pre-Surgical Testing Start: 02-20-2022 (Prolonged) Prolonge d Services Nabor Millard II [facility] Start: 02-20-2022 End: 02-20-2022 ambulatory Nabor Millard II Other [facility] Other Start: 02-11-2022 End: 02-11-2022 ambulatory Nabor Millard II Other [facility] Other Start: 02-11-2022 Patient encounter procedure Nabor Omar II [facility] Start: 01-30-2022 End: 01-31-[address] NONE LISTED REQUEST Facility: Start: 01-15-2022 End: 01-15-2022 ambulatory Nabor Omar II Other [facility] Other Start: 01-15-2022 Telephone encounter Nabor Omar II [facility] Start: 11-20-2021 End: 11-20-2021 ambulatory Nabor Millard II Other [facility] Other Start: 11-20-2021 Office outpatient ne w 60 minutes Nabor Nelson II [facility] Orth[facility] Procedures Date Procedure Procedure Detail Performing Clinician Start: 03-03-2023 Plain X-ray of left wrist DO Jonathan Ball Work Phone: Start: 02-17-2023 X-ray of left knee DO B enjamin Ball Work Phone: Start: 10-05-2022 CT of left shoulder DO Jonathan Ball Work Phone: Start: 10-05-2022 CT of chest without contrast DO Jonathan Ball Work Phone: Start: 09-23-2022 Plain X-ray of right hand DO Jonathan Ball Work Phone: Start: 09-17-2022 Doppler ultrasonogra phy of bilateral carotid arteries DO Jonathan Ball Work Phone: Start: 09-08-2022 CT of chest DO Benjami n Ball Work Phone: Start: 05-28-2022 Plain X-ray of left femur DO Jonathan Ball Work Phone: Start: 05-28-2022 Plain X-ray of left tibia and left fibula DO Jonathan Ball Work Phone: Start: 05-28-2022 X-ray of left knee DO B enjamin Ball Work Phone: Start: 04-16-2022 X-ray of left knee DO B enjamin Ball Work Phone: Start: 03-02-2022 Total replacement of left knee joint DO Jonathan Ball Work Phone: Start: 03-02-2022 X-ray of left knee DO B enjamin Ball Work Phone: Start: 10-04-2018 Preoperative cardiov ascular examination [employer] Other Start: 10-04-2018 Preoperative pulmona ry examination [employer] Other Start: 06-29-2017 Screening for osteoporosis [employer] Other Start: 07-08-2015 General examination of patient Olayinka Ramos Other Depression screening Olayinka Ramso Other Plan of Treatment Date Care Activity Detail Author Start: 10-08-2022 Hemolytic complement CH50 level [facility] Start: 10-08-2022 [facility] Start: 03-03-2022 [facility] Work Phone: Start: 03-02-2022 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 [facility] Work Phone: Start: 03-02-2022 Hospital admission [facility] Work Phone: Complement C3 [Mass/ volume] in Serum or Plasma [facility] Complement C4 [Mass/ volume] in Serum or Plasma [facility] Cryofibrinogen [Pres ence] in Plasma [facility] Cryoglobulin [Presence] in Serum [facility] IgA [Mass/volume] in Serum or Plasma [facility] IgE [Units/volume] i n Serum or Plasma [facility] IgG [Mass/volume] in Serum or Plasma [facility] IgM [Mass/volume] in Serum or Plasma [facility] Patient referral [facility] Work Phone: Immunizations Immunization Date Immunization Notes Care Provider Rudolph de la o 07-23-2023 influenza, high dose seasonal, preservative-free Massiel Pereira Other [facility] Other 07-09-2021 COVID-19 mRNA-1273 (Moderna) DO [email or web address] Work Phone: [facility] 06-16-2021 influenza virus vaccine, split virus (incl. purified surface antigen) Olayinka Ramos Other [facility] Other 10-16-2020 COVID-19 mRNA-1273 (Moderna) DO [email or web address] Work Phone: [facility] 09-19-2020 COVID-19 mRNA-1273 (Moderna) DO [email or web address] Work Phone: [facility] 05-21-2020 pneumococcal conjuga te vaccine, 13 valent Olayinka Ramos Other [facility] Other 09-16-2015 pneumococcal polysaccharide vaccine, 23 valent Joanthan Earl Other [facility] Other 06-28-2013 tetanus and diphther ia toxoids, adsorbed, preservative free, for adult use (5 Lf of tetanus toxoid and 2 Lf of diphtheria toxoid) Olayinka Ramos Other [facility] Other 06-14-2012 zoster vaccine, live Hanyyovany olivia Earl Other [facility] Other 08-07-2009 pneumococcal conjuga te vaccine, 7 valent Jonathan Smith Other [facility] Other 07-17-2009 pneumococcal polysaccharide vaccine, 23 valent Olayinka Ramos Other [facility] Other Payers Date Payer Category Payer Self-pay [id number] 1960 Medicare [id number] [id number] [id number] 1960 Self-pay [id number] 1960 Unknown [id number]. [id number] 1955 Unknown [id number] 1955 Unknown [id number] 2.16.84 0.1.732305.3.579.2.593 1955 Unknown [id number] 2.16.84 0.1.643235.3.579.2.593 1955 Unknown [id number] 2.16.84 0.1.780025.3.579.2.593 1954 Unknown [id number] 2.16.84 0.1.497128.3.579.2.593 1954 Unknown [id number] 2.16.84 0.1.408330.3.579.2.593 1954 Unknown [id number] .16.84 0.1.134618.3.579.2.593 1954 Unknown [id number] 2.16.84 0.1.451113.3.579.2.593 1954 Unknown [id number] .16.84 0.1.202735.3.579.2.593 1954 Unknown [id number] .16.84 0.1.806136.3.579.2.593 1954 Unknown [id number] .16.84 0.1.904793.3.579.2.593 Unknown [facility] [id number] Unknown Unknown [id number] 2.16.84 0.1.937030.3.579.2.593 Unknown [id number] .16.8 40.1.599462.3.579.2.531 Unknown [id number] .16.8 40.1.591893.3.579.2.531 Unknown [id number] .16.8 40.1.545915.3.579.2.531 Unknown [id number] 2.16.8 40.1.504562.3.579.2.531 Unknown [id number] 2.16.8 40.1.790811.3.579.2.531 Unknown [id number] .16.8 40.1.880532.3.579.2.531 Unknown [id number] .16.8 40.1.593457.3.579.2.531 Unknown [id number] 2.16.8 40.1.107903.3.579.2.531 Unknown [id number] 2.16.8 40.1.898631.3.579.2.531 Unknown [id number] 2.16.8 40.1.048206.3.579.2.531 Social History Date Type Detail Facility Unknown if ever smoked [facility] Other Sex Assigned At Sex Assigned At Bir th [facility] Other Start: 03-02-2022 End: 03-02-2022 Tobacco smoking status IAIS Ex-smoker (finding) [facility] Start: 1955 Sex Assigned At Female F [facility] Medical Equipment Procedure Code Equipment Code Equipment Origin al Text Equipment Identifier Dates Arthroplasty, knee, total, minimally invasive Orthopaedic cement, non-medicated [id number] FDA Start: 03-02-2022 Arthroplasty, knee, total, minimally invasive Orthopaedic cement, non-medicated ()[id number] FDA Start: 03-02-2022 Arthroplasty, knee, total, minimally invasive Uncoated knee femur prosthesis ()[id number] FDA Start: 03-02-2022 Arthroplasty, knee, total, minimally invasive Tibial insert ()[id number] FDA Start: 03-02-2022 Arthroplasty, knee, total, minimally invasive Uncoated knee tibia prosthesis, metallic ()[id number] FDA Start: 03-02-2022 Arthroplasty, knee, total, minimally invasive Polyethylene patella prosthesis ()[id number] FDA Start: 03-02-2022 Arthroplasty, knee, total, minimally invasive Knee stem ()[id number] FDA Start: 03-02-2022 Goals Date Patient Goal Desired Activity /State Functional Status Date Assessment Result Facility 03-03-2022 Functional status Patient at Baseline [facility] Work Phone: Mental Status Date Assessment Result Facility 03-03-2022 Cognitive function Cognitive Sta tus Patient at Baseline [facility] Work Phone: Clinical Notes 11-20-2021 to 09-14-2023 Note Date & Type Note Facility 09-14-2023 Evaluation note Encounter Date Diagnosis Assessment Notes Sep, Obesity, unspecified classification , unspecified obesity type, unspecified whether serious comorbidity present (ICD-10 - E66.9) Sep, BMI 33.0-33.9,adul t (ICD-10 - Z68.33) Sep, Other Summary of Visit: (A) Acute vs Chronic Inflammation (B) Inflammation's connection to chronic disease (C) Food's relationship to inflammation (D) Anti Inflammatory foods [facility] Other 2023 Evaluation note* Encounter Date Diagnosis Assessment Notes Treatment Notes Treatment Clinical Notes Aug, Cervical spondylosis (ICD-10 - M47.812) [facility] Other 12-28-2023 Evaluation note* Encounter Date Diagnosis Assessment Notes Treatment Notes Treatment Clinical Notes Aug, Primary hypertension (ICD-10 - I10) This patient is instructed to consume a healthy, low-fat, low-salt diet. They are also encouraged to continue exercise to achieve/maintain a normal BMI. Patient is instructed on home BP measurements: - rest for 5 minutes w/o talking- positioned w/ feet on floor and arm supported- average best 2/3 readings w/ goal < 135/85 _update office w/ readings Aug, Chronic kidney disease, stage 3a (ICD-10 - N18.31) The patient is instructed on adequate control of hypertension and diabetes, if appropriate. They are also educated on the associated risks of NSAIDs and PPI use with kidney disease. They were instructed on adequate fluid balance and to avoid dehydration. Aug, Type 2 diabetes mellitus with hyperglycemia, without long-term current use of insulin (ICD-10 - E11.65) This patient is following a comprehensive diabetic treatment plan. They are checking their feet daily for calluses and nonhealing ulcers. They are being seen for yearly dilated eye examinations. Goals: SBP less than 130, LDL less than 100, FBS less than 140, A1C less than 7%. They are checking their BS daily, will which are reviewed at the office visit. Continue regular routine monitoring of A1C,] Microalbumin, Dilated eye exam and Foot exam Aug, Paroxysmal sinus tachycardia (ICD-10 - I47.19) Much improved w/ Metoprolol. Avoid stimulants, hydrate daily and exercise. Reviewed Echo and Holter results Aug, Mucopurulent chronic bronchitis (ICD-10 - J41.1) Mucolytics as needed for cough Reviewed PFT, CXR No ER visits for AE Aug, Obstructive sleep apnea (adult) (pediatric) (ICD-10 - G47.33) This patient is aware of the benefits associated with IVONE: With continued use, the patient reduces the risk for IA, CVA, HTN, cardiac dysrhythmias and sudden cardiac deaths.The patient is also aware of the association between IVONE and morning headaches, daytime somnolence, fatigue and obesity, which also has been improved with continued use.The patient is compliant with treatment, wearing the equipment every night for greater than 4 hours.The patient is instructed to continue use of the CPAP for IVONE treatment. Aug, Cervical spondylosis (ICD-10 - M47.812) ROM exercises, heat/ice and Lidocaine. PT or pain management w/ acute exacerbation Aug, Morbid (severe) obesity due to excess calories (ICD-10 - E66.01) This patient has been instructed on a low-fat, high-fiber diet. They are instructed to reduce calories, portion sizes and snacks. It is recommended that they exercise for 30 minutes, 3-5 times weekly. f/u weight loss clinic Holidays have resulted in weight gain Aug, Body mass index [BMI] 35.0-35.9, adult (ICD-10 - Z68.35) [facility] Other 12-07-2023 Evaluation note* Encounter Date Diagnosis Assessment Notes Treatment Notes Treatment Clinical Notes Aug, Obesity, Class II, BMI 35-39.9 (ICD-10 - E66.01) Consultation date 04-07-2023, weight (pounds): 200.9 Follow-up date 06-16-2023, weight (pounds): 179.2 Follow-up date 08-19-2023, weight (pounds): 169.2 Plan is to take a weight centric approach to patient care in the treatment of obesity and patient's weight related comorbidities.-Discussed the impact of obesity and excess adiposity on overall health and increased risk of associated health conditions-Discussed treatment options including lifestyle interventions and use of medications as an adjunct to amplify adherence to healthy behavior change-Discussed benefits, risks and side effects of medication. After informed discussion, patient would like to proceedOrders:-Continue Ozempic 2 mg once weekly. 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 Please excuse errors in buffet server. Aug, Dietary surveillance and counseling (ICD-10 - Z71.3) Discussed in detail high-protein, high-fiber, low-fat nutrition plan favoring calorie deficit and lean tissue mass preservation.-Lean protein sources at each meal supplemented with nutrient rich, low calorie density carbohydrates-Focus on consuming calories earlier in the day versus later; breakfast and lunch should be largest meals-Evening meal should be high in protein and low in carbohydrate to maximize lipolysis overnight-Aim for a minimum of 30 g of protein per meal with breakfast, lunch and dinner with total daily intake reaching at least 100 g-If needed, supplement with whey protein powder or premade protein drink low in carbohydrate and low in fat-If hungry between meals, consider protein snack low in carbohydrate and low in fat -Avoid alcohol and sugary sweetened beverages such as energy drinks -Discussed impact of alcohol and sugary beverage consumption on overall health, including liver function Aug, Exercise counseling (ICD-10 - Z71.89) Absolute HGS at time of consultation (pounds): 41.2 Absolute HGS at time of follow-up (pounds): 43.9 Discussed in detail exercise interventions to promote lean tissue mass preservation during calorie restriction.-In addition to regularly scheduled endurance and resistance exercise, perform bouts of resistance exercise prior to meals using body weight, resistance bands or dumbbells/weights-Follow ing meals, consider aerobic exercise, such as brisk walking, to improve blood sugars and to mitigate hyperinsulinemia Aug, IVONE (obstructive sleep apnea) (ICD-10 - G47.33) Stressed importance of CPAP Aug, Essential hypertension (ICD-10 - I10) Recommend to limit caffeine consumption in the form of energy drinks and soda Will also aid with mitigating palpitations Aug, Osteoarthritis (ICD-10 - M19.90) Aug, Hepatic steatosis (ICD-10 - K76.0) FibroScan performed April 2023-CAP score 203, S0-Fibrosis score 5.9, F0 to F1 Stressed importance of avoiding alcohol and adiposity reduction Aug, Dyslipidemia (ICD-10 - E78.5) Aug, Type 2 diabetes mellitus (ICD-10 - E11.9) Patient reports highest A1c of 6.7% subjectivelyContinue with Ozempic. Denies side effects [facility] Other 12-05-2023 Evaluation note* Encounter Date Diagnosis Assessment Notes Treatment Notes Treatment Clinical Notes Aug, Contusion of right foot, initial encounter (ICD-10 - S90.31XA) Ice, elevate and Tylenol XR to r/o fracture of MT Aug, Closed nondisplaced fracture of proximal phalanx of lesser toe of right foot, initial encounter (ICD-10 - S92.514A) Rest, elevate and ice. Wear compfortable, stiff soled shoes. Refer to Podiatry for evaluation and treatment suggestions. Aug, Abrasion of toe of right foot, initial encounter (ICD-10 - S90.414A) Cleanse w/ soap and water. Use Bacitracin as needed. Notify office w/ any s/s infection [facility] Other 11-21-2023 Evaluation note* Encounter Date Diagnosis Assessment Notes Treatment Notes Treatment Clinical Notes Jul, Obesity, unspecified classification, unspecified obesity type, unspecified whether serious comorbidity present (ICD-10 - E66.9) Jul, BMI 35.0-35.9,adult (ICD-10 - Z68.35) Jul, Other Summary of Visi t: (A) Why variety is important for health (B) Tips for increasing variety (swapping one ingredient at a time, trying new recipes, unitlizing leftovers, keeping frozen veggies on hand, trying different cultures' foods) (C) Discussion/sharing among group of what variety means for them and tip sharing [facility] Other 10-24-2023 Evaluation note* Encounter Date Diagnosis Assessment Notes Treatment Notes Treatment Clinical Notes Jun, Obesity, unspecified classification, unspecified obesity type, unspecified whether serious comorbidity present (ICD-10 - E66.9) Jun, BMI 35.0-35.9,adult (ICD-10 - Z68.35) Jun, Other Summary of Visi t: (A) Small habits and the impact they can have over time (B) Building a system for change vs setting goals (C) Identity based goals vs action based goals (D) Habit stacking/temptati on building Patient set the following goals: - patient set personal goal using given handout. [facility] Other 10-04-2023 Evaluation note* Encounter Date Diagnosis Assessment Notes Treatment Notes Treatment Clinical Notes Jun, Obesity, Class II, BMI 35-39.9 (ICD-10 - E66.01) Consultation date 04-07-2023, weight (pounds): 200.9 Follow-up date 06-16-2023, weight (pounds): 179.2 Plan is to take a weight centric approach to patient care in the treatment of obesity and patient's weight related comorbidities.-Discussed the impact of obesity and excess adiposity on overall health and increased risk of associated health conditions-Discussed treatment options including lifestyle interventions and use of medications as an adjunct to amplify adherence to healthy behavior change-Discussed benefits, risks and side effects of medication. After informed discussion, patient would like to proceedOrders:-Continue Ozempic, currently on 1 mg once weekly without side effect. 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 Please excuse errors in buffet server. Jun, Dietary surveillance and counseling (ICD-10 - Z71.3) Discussed in detail high-protein, high-fiber, low-fat nutrition plan favoring calorie deficit and lean tissue mass preservation.-Lean protein sources at each meal supplemented with nutrient rich, low calorie density carbohydrates-Focus on consuming calories earlier in the day versus later; breakfast and lunch should be largest meals-Evening meal should be high in protein and low in carbohydrate to maximize lipolysis overnight-Aim for a minimum of 30 g of protein per meal with breakfast, lunch and dinner with total daily intake reaching at least 100 g-If needed, supplement with whey protein powder or premade protein drink low in carbohydrate and low in fat-If hungry between meals, consider protein snack low in carbohydrate and low in fat -Avoid alcohol and sugary sweetened beverages such as energy drinks -Discussed impact of alcohol and sugary beverage consumption on overall health, including liver function Jun, Exercise counseling (ICD-10 - Z71.89) Absolute HGS at time of consultation (pounds): 41.2 Absolute HGS at time of follow-up (pounds): 48 Discussed in detail exercise interventions to promote lean tissue mass preservation during calorie restriction.-In addition to regularly scheduled endurance and resistance exercise, perform bouts of resistance exercise prior to meals using body weight, resistance bands or dumbbells/weights-Follow ing meals, consider aerobic exercise, such as brisk walking, to improve blood sugars and to mitigate hyperinsulinemia Jun, IVONE (obstructive sleep apnea) (ICD-10 - G47.33) Jun, Essential hypertension (ICD-10 - I10) Recommend to limit caffeine consumption in the form of energy drinks and soda Will also aid with mitigating palpitations Jun, Osteoarthritis (ICD-10 - M19.90) Jun, Hepatic steatosis (ICD-10 - K76.0) FibroScan performed April 2023-CAP score 203, S0-Fibrosis score 5.9, F0 to F1 Stressed importance of avoiding alcohol and adiposity reduction Jun, Dyslipidemia (ICD-10 - E78.5) Jun, Type 2 diabetes mellitus (ICD-10 - E11.9) Patient reports highest A1c of 6.7% subjectivelyContinue with Ozempic. Denies side effects [facility] Other 09-27-2023 Evaluation note* Encounter Date Diagnosis Assessment Notes Treatment Notes Treatment Clinical Notes May, Primary hypertension (ICD-10 - I10) This patient is instructed to consume a healthy, low-fat, low-salt diet. They are also encouraged to continue exercise to achieve/maintain a normal BMI. Patient is instructed on home BP measurements: - rest for 5 minutes w/o talking- positioned w/ feet on floor and arm supported- average best 2/3 readings w/ goal < 135/85 May, Chronic kidney disease, stage 3a (ICD-10 - N18.31) The patient is instructed on adequate control of hypertension and diabetes, if appropriate. They are also educated on the associated risks of NSAIDs and PPI use with kidney disease. They were instructed on adequate fluid balance and to avoid dehydration. May, Type 2 diabetes mellitus with hyperglycemia, without long-term current use of insulin (ICD-10 - E11.65) This patient is following a comprehensive diabetic treatment plan. They are checking their feet daily for calluses and nonhealing ulcers. They are being seen for yearly dilated eye examinations. Goals: SBP less than 130, LDL less than 100, FBS less than 140, A1C less than 7%. They are checking their BS daily, will which are reviewed at the office visit. Continue regular routine monitoring of A1C,] Microalbumin, Dilated eye exam and Foot exam May, PSVT (paroxysmal supraventricular tachycardia) (ICD-10 - I47.1) Avoid stimulants Increase Metoprolol to 100mg Recheck TSH and Holter in 2 wks May, Mucopurulent chronic bronchitis (ICD-10 - J41.1) No ER visits for AE Continue LABA/LAMA May, Obstructive sleep apnea (adult) (pediatric) (ICD-10 - G47.33) This patient is aware of the benefits associated with IVONE: With continued use, the patient reduces the risk for IA, CVA, HTN, cardiac dysrhythmias and sudden cardiac deaths.The patient is also aware of the association between IVONE and morning headaches, daytime somnolence, fatigue and obesity, which also has been improved with continued use.The patient is compliant with treatment, wearing the equipment every night for greater than 4 hours.The patient is instructed to continue use of the CPAP for IVONE treatment. May, Cervical spondylosis (ICD-10 - M47.812) ROM exercises, heat/ice and Tramadol May, Morbid (severe) obesity due to excess calories (ICD-10 - E66.01) This patient has been instructed on a low-fat, high-fiber diet. They are instructed to reduce calories, portion sizes and snacks. It is recommended that they exercise for 30 minutes, 3-5 times weekly. May, Body mass index [BMI ] 35.0-35.9, adult (ICD-10 - Z68.35) [facility] Other 09-19-2023 Evaluation note* Encounter Date Diagnosis Assessment Notes Treatment Notes Treatment Clinical Notes May, Obesity, unspecified classification, unspecified obesity type, unspecified whether serious comorbidity present (ICD-10 - E66.9) May, BMI 37.0-37.9, adult (ICD-10 - Z68.37) May, Other Summary of Visi t: (A) Difference between serving size and servings per container (B) % Daily Valie (C) Nutrient Content Claims (low sodium, reduced fat, etc.) (D) Identifying whole grain products [facility] Other 09-12-2023 Evaluation note* Encounter Date Diagnosis Assessment Notes Treatment Notes Treatment Clinical Notes May, Mucopurulent chronic bronchitis (ICD-10 - J41.1) [facility] Other 08-30-2023 Evaluation note* Encounter Date Diagnosis Assessment Notes Treatment Notes Treatment Clinical Notes Apr, Obesity, unspecified classification, unspecified obesity type, unspecified whether serious comorbidity present (ICD-10 - E66.9) Apr, BMI 37.0-37.9, adult (ICD-10 - Z68.37) Apr, Other Summary of Visi t: (A) group discussion about breakfast challenges and ideas (B) participants shared idea for breakfast and addressing common challenges Patient set the following goals: NOT REVIEWED [facility] Other 08-23-2023 Evaluation note* Encounter Date Diagnosis Assessment Notes Treatment Notes Treatment Clinical Notes Apr, Obesity, Class II, BMI 35-39.9 (ICD-10 - E66.01) Consultation date 04-07-2023, weight (pounds): 200.9Plan is to take a weight centric approach to patient care in the treatment of obesity and patient's weight related comorbidities.-Discussed the impact of obesity and excess adiposity on overall health and increased risk of associated health conditions-Discussed treatment options including lifestyle interventions and use of medications as an adjunct to amplify adherence to healthy behavior change-Discussed benefits, risks and side effects of medication. After informed discussion, patient would like to proceedOrders:-Continue Ozempic 0.25 mg once weekly and titrate up as tolerated-A1c 5.9% February 2023 -[employer] membership -Follow up in clinic in 6 weeks -Patient reports highest A1c of 6.7% subjectivelyThis note was created with voice recognition software. Please excuse errors in buffet server. Apr, Dietary surveillance and counseling (ICD-10 - Z71.3) Discussed in detail high-protein, high-fiber, low-fat nutrition plan favoring calorie deficit and lean tissue mass preservation.-Lean protein sources at each meal supplemented with nutrient rich, low calorie density carbohydrates-Focus on consuming calories earlier in the day versus later; breakfast and lunch should be largest meals-Evening meal should be high in protein and low in carbohydrate to maximize lipolysis overnight-Aim for a minimum of 30 g of protein per meal with breakfast, lunch and dinner with total daily intake reaching at least 100 g-If needed, supplement with whey protein powder or premade protein drink low in carbohydrate and low in fat-If hungry between meals, consider protein snack low in carbohydrate and low in fat -Avoid alcohol and sugary sweetened beverages such as energy drinks -Discussed impact of alcohol and sugary beverage consumption on overall health, including liver function Apr, Exercise counseling (ICD-10 - Z71.89) Absolute HGS at time of consultation (pounds): 41.2 Absolute HGS at time of follow-up (pounds): 47.6 Discussed in detail exercise interventions to promote lean tissue mass preservation during calorie restriction.-In addition to regularly scheduled endurance and resistance exercise, perform bouts of resistance exercise prior to meals using body weight, resistance bands or dumbbells/weights-Follow ing meals, consider aerobic exercise, such as brisk walking, to improve blood sugars and to mitigate hyperinsulinemia Apr, IVONE (obstructive sleep apnea) (ICD-10 - G47.33) Apr, Essential hypertension (ICD-10 - I10) Recommend to limit caffeine consumption in the form of energy drinks and soda Will also aid with mitigating palpitations Apr, Osteoarthritis (ICD-10 - M19.90) Apr, Hepatic steatosis (ICD-10 - K76.0) FibroScan performed April 2023-CAP score 203, S0-Fibrosis score 5.9, F0 to F1 Stressed importance of avoiding alcohol and adiposity reduction Apr, Dyslipidemia (ICD-10 - E78.5) Apr, Type 2 diabetes mellitus (ICD-10 - E11.9) Patient reports highest A1c of 6.7% subjectivelyContinue with Ozempic. Denies side effects Apr, Other 42 minutes was spent reviewing patient specific healthcare information, interviewing, counseling, and communicating with the patient, and documenting clinical information. [facility] Other 08-12-2023 Evaluation note* Encounter Date Diagnosis Assessment Notes Treatment Notes Treatment Clinical Notes Apr, PSVT (paroxysmal supraventricular tachycardia) (ICD-10 - I47.1) [facility] Other 08-01-2023 Evaluation note* Encounter Date Diagnosis Assessment Notes Treatment Notes Treatment Clinical Notes Apr, Primary hypertension (ICD-10 - I10) This patient is instructed to consume a healthy, low-fat, low-salt diet. They are also encouraged to continue exercise to achieve/maintain a normal BMI. Patient is instructed on home BP measurements: - rest for 5 minutes w/o talking- positioned w/ feet on floor and arm supported- average best 2/3 readings w/ goal < 135-85 Apr, Dyspnea on exertion (ICD-10 - R06.09) Multifactorial Discussed possible etiology Reviewed testing to date: - Echo: normal LVEF w/ LVH, no valvular dis, no pulm HTN but significant for diastolic dysfunction - CXR normal - PFT normal - Holter w/ frequent episodes of PSVT - obesity - IVONE compliant w/ treatment Plan is to continue w/ exercise, weight loss Recently initiated beta becca therapy Discussed Stress Testing, CTA Apr, Chronic kidney disease, stage 3a (ICD-10 - N18.31) The patient is instructed on adequate control of hypertension and diabetes, if appropriate. They are also educated on the associated risks of NSAIDs and PPI use with kidney disease. They were instructed on adequate fluid balance and to avoid dehydration. Apr, Mucopurulent chronic bronchitis (ICD-10 - J41.1) Mucinex as needed. No findings to support MDI benefit Apr, Obstructive sleep apnea (adult) (pediatric) (ICD-10 - G47.33) This patient is aware of the benefits associated with IVONE: With continued use, the patient reduces the risk for IA, CVA, HTN, cardiac dysrhythmias and sudden cardiac deaths.The patient is also aware of the association between IVONE and morning headaches, daytime somnolence, fatigue and obesity, which also has been improved with continued use.The patient is compliant with treatment, wearing the equipment every night for greater than 4 hours.The patient is instructed to continue use of the CPAP for IVONE treatment. Apr, Type 2 diabetes mellitus with hyperglycemia, without long-term current use of insulin (ICD-10 - E11.65) This patient is following a comprehensive diabetic treatment plan. They are checking their feet daily for calluses and nonhealing ulcers. They are being seen for yearly dilated eye examinations. Goals: SBP less than 130, LDL less than 100, FBS less than 140, AC and A1C less than 7%. They are checking their BS daily, will which are reviewed at the office visit. Continue regular routine monitoring of A1C,] Microalbumin, Dilated eye exam and Foot exam Initially prescribed GLP-1 by weight loss clinid Apr, PSVT (paroxysmal supraventricular tachycardia) (ICD-10 - I47.1) [facility] Other 07-26-2023 Evaluation note* Encounter Date Diagnosis Assessment Notes Treatment Notes Treatment Clinical Notes Mar, Obesity, Class II, BMI 35-39.9 (ICD-10 - E66.01) Consultation date 04-07-2023, weight (pounds): 200.9Plan is to take a weight centric approach to patient care in the treatment of obesity and patient's weight related comorbidities.-Discus sed the impact of obesity and excess adiposity on overall health and increased risk of associated health conditions-Discussed treatment options including lifestyle interventions and use of medications as an adjunct to amplify adherence to healthy behavior change-Discussed benefits, risks and side effects of medication. After informed discussion, patient would like to proceedOrders:-Initia te Ozempic 0.25 mg once weekly-Recent A1c 5.9% February 2023 -Follow up in clinic in 4 weeks -Patient is unsure of highest A1c value recorded and there may be potential for type 2 diabetes mellitus diagnosis. She will reach out to PCP to acquire information.This note was created with voice recognition software. Please excuse errors in buffet server. Mar, Dietary surveillance and counseling (ICD-10 - Z71.3) Discussed in detail high-protein, high-fiber, low-fat nutrition plan favoring calorie deficit and lean tissue mass preservation.-Lean protein sources at each meal supplemented with nutrient rich, low calorie density carbohydrates-Focus on consuming calories earlier in the day versus later; breakfast and lunch should be largest meals-Evening meal should be high in protein and low in carbohydrate to maximize lipolysis overnight-Aim for a minimum of 30 g of protein per meal with breakfast, lunch and dinner with total daily intake reaching at least 100 g-If needed, supplement with whey protein powder or premade protein drink low in carbohydrate and low in fat-If hungry between meals, consider protein snack low in carbohydrate and low in fat -Avoid alcohol (patient drinking 2-4 beers daily) and sugary sweetened beverages such as energy drinks (1 energy drink weekly) -Discussed impact of alcohol and sugary beverage consumption on overall health, including liver function Mar, Exercise counseling (ICD-10 - Z71.89) Absolute HGS at time of consultation (pounds): 41.2Discussed in detail exercise interventions to promote lean tissue mass preservation during calorie restriction.-In addition to regularly scheduled endurance and resistance exercise, perform bouts of resistance exercise prior to meals using body weight, resistance bands or dumbbells/weights-Fol lowing meals, consider aerobic exercise, such as brisk walking, to improve blood sugars and to mitigate hyperinsulinemia Mar, Prediabetes (ICD-10 - R73.09) Mar, IVONE (obstructive sleep apnea) (ICD-10 - G47.33) Mar, Essential hypertension (ICD-10 - I10) Recommend to limit caffeine consumption in the form of energy drinks and soda Will also aid with mitigating palpitations Mar, Osteoarthritis (ICD-10 - M19.90) Mar, Hepatic steatosis (ICD-10 - K76.0) Incidental finding on CT Patient with daily beer consumption for many years Also consuming sugar sweetened beverages Further evaluate with FibroScan Mar, Dyslipidemia (ICD-10 - E78.5) Mar, Other 60 minutes was spent reviewing patient specific healthcare information, interviewing, counseling, and communicating with the patient, and documenting clinical information. [facility] Other 06-22-2023 Evaluation note* Encounter Date Diagnosis Assessment Notes Treatment Notes Treatment Clinical Notes Feb, Medicare annual wellness visit, initial (ICD-10 - Z00.00) Personalized health advice was given to the beneficiary including a written plan for screenings discussed and provided. Advanced care planning reviewed and/or information given as requested. Additional counseling was provided here today in regards to, [ ]. The above visit was performed by [ ] under direct supervision of [ ]. Document reviewed and amended by provider signed below. Feb, ESCUDERO (dyspnea on exertion) (ICD-10 - R06.09) Discussed possible etiologies. r/o CHF, pulmonary infiltrates, effusion or mass r/o HFrEF r/o arrhythmia Feb, Primary hypertension (ICD-10 - I10) This patient is instructed to consume a healthy, low-fat, low-salt diet. They are also encouraged to continue exercise to achieve/maintain a normal BMI. Feb, Chronic kidney disease, stage 3a (ICD-10 - N18.31) The patient is instructed on adequate control of hypertension and diabetes, if appropriate. They are also educated on the associated risks of NSAIDs and PPI use with kidney disease. They were instructed on adequate fluid balance and to avoid dehydration. Feb, Impaired fasting glucose (ICD-10 - R73.01) This patient is following a comprehensive diabetic treatment plan. They are checking their feet daily for calluses and nonhealing ulcers. They are being seen for yearly dilated eye examinations. Goals: SBP less than 130, LDL less than 100, FBS less than 140, AC and A1C less than 7%. They are checking their BS daily, will which are reviewed at the office visit. Continue regular routine monitoring of A1C,] Microalbumin, Dilated eye exam and Foot exam Feb, Mucopurulent chronic bronchitis (ICD-10 - J41.1) Continue smoking abstinence. No ER visits for AECOPD in past year. Increased dyspnea w/ minimal activity CXR Feb, Gastro-esophageal reflux disease with esophagitis, without bleeding (ICD-10 - K21.00) Diet instructions: Smaller portions, avoid eating and laying flat, avoid eating or drinking prior to bedtime. Weight loss. Feb, Obstructive sleep apnea (adult) (pediatric) (ICD-10 - G47.33) This patient is aware of the benefits associated with IVONE: With continued use, the patient reduces the risk for IA, CVA, HTN, cardiac dysrhythmias and sudden cardiac deaths.The patient is also aware of the association between IVONE and morning headaches, daytime somnolence, fatigue and obesity, which also has been improved with continued use.The patient is compliant with treatment, wearing the equipment every night for greater than 4 hours.The patient is instructed to continue use of the CPAP for IVONE treatment. Feb, Mixed hyperlipidemia (ICD-10 - E78.2) Instructed on diet and exercise with continued statin therapy.Discussed the beneficial effects of lowering cholesterol in reducing the risk for cerebrovascular and cardiovascular disease. Feb, Palpitation (ICD-10 - R00.2) Healthy diet, exercise, hydrate and avoid stimulants Feb, Hx of breast cancer (ICD-10 - Z85.3) B/L mastectomy. No s/s recurrence [facility] Other 06-21-2023 Evaluation note* Encounter Date Diagnosis Assessment Notes Treatment Notes Treatment Clinical Notes Feb, Lesion of finger (ICD-10 - L98.9) Feb, Mass of finger of right hand (ICD-10 - R22.31) Feb, Ischemia (ICD-10 - I99.8) Feb, Left wrist pain (ICD-10 - M25.532) Feb, Wrist arthritis (ICD-10 - M19.039) Feb, Mass of left hand (ICD-10 - R22.32) Feb, Left carpal tunnel syndrome (ICD-10 - G56.02) We performed a 1/1cc marcaine / kenalog cortisone injection into the left carpal tunnel under sterile technique. Patient tolerated the injection well without adverse reaction. [facility] Other 06-07-2023 Evaluation note* Encounter Date Diagnosis Assessment Notes Treatment Notes Treatment Clinical Notes Feb, Aftercare following joint replacement surgery (ICD-10 - Z47.1) Feb, Presence of left artificial knee joint (ICD-10 - Z96.652) Feb, Other [facility] at [facility] on 03/02/2022 Happy with surgical result Follow up as needed with standing AP and lateral xrays of the left knee Patient instructed to call with any questions or concerns. [facility] Other 03-17-2023 Evaluation note* Encounter Date Diagnosis Assessment Notes Treatment Notes Treatment Clinical Notes Nov, Stage 3a chronic kidney disease (ICD-10 - N18.31) [facility] Other 03-15-2023 Evaluation note* Encounter Date Diagnosis Assessment Notes Treatment Notes Treatment Clinical Notes Nov, Primary hypertension (ICD-10 - I10) This patient is instructed to consume a healthy, low-fat, low-salt diet. They are also encouraged to continue exercise to achieve/maintain a normal BMI. Nov, Chronic kidney disease, stage 3a (ICD-10 - N18.31) The patient is instructed on adequate control of hypertension and diabetes, if appropriate. They are also educated on the associated risks of NSAIDs and PPI use with kidney disease. They were instructed on adequate fluid balance and to avoid dehydration. Nov, Mucopurulent chronic bronchitis (ICD-10 - J41.1) Mucinex as needed, push fluids. Continue LAMA/LABA Restart KELVIN as needed to clear secretions and improve breathlessness. Increase activity and work on weight reduction Nov, Impaired fasting glucose (ICD-10 - R73.01) Healthy diet, increase activity and work on reduction of weight. A1C every 6mo Nov, Obstructive sleep apnea (adult) (pediatric) (ICD-10 - G47.33) This patient is aware of the benefits associated with IVONE: With continued use, the patient reduces the risk for IA, CVA, HTN, cardiac dysrhythmias and sudden cardiac deaths.The patient is also aware of the association between IVONE and morning headaches, daytime somnolence, fatigue and obesity, which also has been improved with continued use.The patient is compliant with treatment, wearing the equipment every night for greater than 4 hours.The patient is instructed to continue use of the PAP for IVONE treatment. Nov, GERD (gastroesophageal reflux disease) (ICD-10 - K21.9) Diet instructions: Smaller portions, avoid eating and laying flat, avoid eating or drinking prior to bedtime. Weight loss. Continue PPI Nov, Obesity (BMI 30-39.9) (ICD-10 - E66.9) This patient has been instructed on a low-fat, high-fiber diet. They are instructed to reduce calories, portion sizes and snacks. It is recommended that they exercise for 30 minutes, 3-5 times weekly. 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 [facility] Other 02-15-2023 Evaluation note* Encounter Date Diagnosis Assessment Notes Treatment Notes Treatment Clinical Notes Oct, Lesion of finger (ICD-10 - L98.9) Oct, Ischemia (ICD-10 - I99.8) Patient is progressing well. Continue plavix as prescribed by her PCP. If PCP opts to discontinue plavix, would have patient take daily asprin for at least 2 years post ischemic incident. Progress activity as tolerated. Call with questions/concerns. Oct, Mass of finger of right hand (ICD-10 - R22.31) We will monitor lump on the dorsal aspect of her right ring finger. [facility] Other 02-02-2023 Evaluation note* Encounter Date Diagnosis Assessment Notes Treatment Notes Treatment Clinical Notes Oct, Chronic thromboembolic disease (ICD-10 - I74.9) Patient is doing better. I did review the CT scan results with her. It just showed some mild arthritis of the left shoulder with no other concerning findings. I will see her as needed in the future. We will discharge her from the office today. She understands agrees the plan. All of her questions were addressed. [facility] Other 01-25-2023 Evaluation note* Encounter Date Diagnosis Assessment Notes Treatment Notes Treatment Clinical Notes Sep, Lesion of finger (ICD-10 - L98.9) Patient is progressing well. Continue local wound care as previously instructed with neosporin. Continue blood thinner as prescribed. Continue to follow up with vascular for blood flow tests and rheumatology. Call with questions/concerns. Sep, Ischemia (ICD-10 - I99.8) [facility] Other 01-20-2023 Evaluation note* Encounter Date Diagnosis Assessment Notes Treatment Notes Treatment Clinical Notes Sep, Rupture of left proximal biceps tendon, initial encounter (ICD-10 - S46.212A) Ice, heat and rest. Monitor for now, call w/ increase pain or swelling. 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 Small ulceration persists, otherwise completely resolved. Etiology remains a mystery [facility] Other 01-19-2023 Evaluation note* Encounter Date Diagnosis Assessment Notes Treatment Notes Treatment Clinical Notes Sep, Acute pain of left shoulder (ICD-10 - M25.512) Sep, Left upper extremity swelling (ICD-10 - M79.89) Sep, Localized swelling of left upper extremity (ICD-10 - R22.32) I did go over the echo results with the patient was particularly pertaining to cardiac thrombus. The report clearly said there was no cardiac thrombus. I am recommending she see a oil recovery unit operator for the severe calcification identified on her valve. We will order a cardiology consult for her to go over the official results of the cardiac echo as I do not read these in my practice. However it does not appear to be a source of thrombus from the heart to her upper extremity and the right hand. With regards to her new complaints of left shoulder swelling and pain I recommend we order a noncontrast CT of the chest and left upper arm. I do not have an explanation for this. However I do not believe it to be of a vascular etiology. I do believe I need to I will be calling Dr. Jonathan smith and Dr. Arpit Soto for further advice and work-up for this patient. I think she needs to follow-up with all these people to get a diagnosis of what is going on with her. I do not believe it to be of a vascular origin. I explained this to her and she understands agrees the plan I will certainly see her back to go over the results of the CAT scan. All of her questions were addressed she understands agrees the plan. I already did put out a call for Dr. Smith and left a message as his office did not answer the phone today. Sep, Pain in left arm (ICD-10 - M79.602) Sep, Other specified soft tissue disorders (ICD-10 - M79.89) [facility] Other 01-16-2023 Evaluation note* Encounter Date Diagnosis Assessment Notes Treatment Notes Treatment Clinical Notes Sep, Essential (primary) hypertension (ICD-10 - I10) [facility] Other 01-11-2023 Evaluation note* Encounter Date Diagnosis Assessment Notes Treatment Notes Treatment Clinical Notes Sep, Lesion of finger (ICD-10 - L98.9) Radiographs reviewed and discussed in detail with patient. There is discoloration present to the pads of the right ring and small fingers. This appears to be ischemia. Discussed condition and typical etiology such as a clot, Raynaud's, or microvascular disease. I believe patient may benefit from having an artirorgram of the hand. Patient may continue with prescribed pain medication and advised to keep the site moisturized. Patient advised to discontinue with Mupirocin topical and use Neosporin or Bacitracin ointment instead. Patient will follow up in 2 weeks after testing is complete. Patient voiced understanding and is agreeable to treatment plan. Sep, Ischemia (ICD-10 - I99.8) [facility] Other 01-09-2023 Evaluation note* Encounter Date Diagnosis Assessment Notes Treatment Notes Treatment Clinical Notes Sep, Ischemic ulcer of finger with fat layer exposed (ICD-10 - L98.492) Continue Plavix. Continued control of HTN, HLD and IFG. Keep hands warm. Cleanse ulceratons w/ warm, soapy water. 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 Keep hands warm and dry. Continue Prednisone and close f/u Rheumatology Sep, Essential (primary) hypertension (ICD-10 - I10) This patient is instructed to consume a healthy, low-fat, low-salt diet. They are also encouraged to continue exercise to achieve/maintain a normal BMI. Monitor BP at home w/ goal < 135/85. _update office w/ results Sep, Chronic kidney disease, stage 3a (ICD-10 - N18.31) The patient is instructed on adequate control of hypertension and diabetes, if appropriate. They are also educated on the associated risks of NSAIDs and PPI use with kidney disease. They were instructed on adequate fluid balance and to avoid dehydration. Sep, Mucopurulent chronic bronchitis (ICD-10 - J41.1) Continue LAMA/LABA therapy w/ KELVIN as needed. Mucinex as needed. Sep, Impaired fasting glucose (ICD-10 - R73.01) Healthy diet, keep active, reduce calories and weight loss. 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 f/u Rheumatology Sep, Gastro-esophageal reflux disease with esophagitis, without bleeding (ICD-10 - K21.00) Diet instructions: Smaller portions, avoid eating and laying flat, avoid eating or drinking prior to bedtime. Weight loss. Continue PPI [facility] Other 01-05-2023 Evaluation note* Encounter Date Diagnosis Assessment Notes Treatment Notes Treatment Clinical Notes Sep, Chronic thromboembolic disease (ICD-10 - I74.9) I reviewed the CT angiogram with the patient today. There is no large vessel disease. Therefore there is no indication for any vascular surgery at this time. I am considering sending this patient for referral to a hand surgeon for possible amputation of the fourth digit. There is a chance this could heal on its own with time. I did give the patient analgesic medications today as she was in some pain. I also recommended continue possible work-up of her systemic disease. I will see her as needed in the future all her questions were addressed. Sep, Ischemia of digits o f hand (ICD-10 - I99.8) [facility] Other 09-15-2022 Evaluation note* Encounter Date Diagnosis Assessment Notes Treatment Notes Treatment Clinical Notes May, Aftercare following joint replacement surgery (ICD-10 - Z47.1) May, Presence of left artificial knee joint (ICD-10 - Z96.652) May, Status post left knee replacement (ICD-10 - Z96.652) May, Other [facility] at [facility] on 03/02/2022 Doing well. As I explained to her I am comfortable with her restarting her rheumatological medications if her and her forensic investigator feel like she needs them. As we discussed today overall it sounds like she is feeling really well and not having any issues elsewhere in her body and she may be okay not taking the biologic considering she has not been on it now for several months even before surgery and after surgery. Discussed post-op dental prophylaxis. Shared decision made to continue prophylactic antibiotics indefinitely. Follow-up at 1 year post-op for repeat examination and 2 view x-rays of the left knee. Patient instructed to call with any questions or concerns. [facility] Other 08-04-2022 Evaluation note* Encounter Date Diagnosis Assessment Notes Treatment Notes Treatment Clinical Notes Apr, Aftercare following joint replacement surgery (ICD-10 - Z47.1) Apr, Presence of left artificial knee joint (ICD-10 - Z96.652) Apr, Status post left knee replacement (ICD-10 - Z96.652) Apr, Other [facility] at [facility] on 03/02/2022 Doing well. No concerns for incision at this time. I did inform the patient that I be comfortable with her restarting her rheumatoid medications at this point in the postoperative period. However, the patient would like to wait until she comes back from [place]. I think that is perfectly appropriate. Patient may continue activities as tolerated. She recently finished PT and is not planning to continue it at this time. Continue taking [id number] anti-inflammatories as needed for assistance with swelling and pain associated with the operative extremity. Follow-up in 6 weeks for repeat examination and long standing x-rays. [facility] Other 07-14-2022 Evaluation note* Encounter Date Diagnosis Assessment Notes Treatment Notes Treatment Clinical Notes Mar, Aftercare following joint replacement surgery (ICD-10 - Z47.1) Mar, Presence of left artificial knee joint (ICD-10 - Z96.652) Mar, Status post left knee replacement (ICD-10 - Z96.652) Mar, Other [facility] at [facility] on 03/02/2022 Doing really well. Zipline removed today. As we had discussed preoperatively and as her forensic investigator had recommended, we will plan for her to restart her Simpani and leflunamide in 1 week. Patient will continue working with outpatient physical therapy. She feels like she is making great progress. Patient instructed to continue weaning off narcotic pain medication. They will continue to take Celebrex and Tylenol as needed for assistance with swelling and pain associated with the operative extremity. Patient to continue their aspirin DVT prophylaxis as previously instructed. This includes wearing their HERNANDEZ hose on the operative extremity for another week. Follow-up in 3 weeks for repeat examination and 3 view x-rays of the left knee. [facility] Other 07-06-2022 Evaluation note* Encounter Date Diagnosis Assessment Notes Treatment Notes Treatment Clinical Notes Mar, Aftercare following joint replacement surgery (ICD-10 - Z47.1) [facility] Other 07-06-2022 Evaluation note* Encounter Date Diagnosis Assessment Notes Treatment Notes Treatment Clinical Notes Mar, Aftercare following joint replacement surgery (ICD-10 - Z47.1) Mar, Presence of left artificial knee joint (ICD-10 - Z96.652) Mar, Status post left knee replacement (ICD-10 - Z96.652) Mar, Other [facility] at [facility] on 03/02/2022 Doing well. Given her history of rheumatoid arthritis and her history of imaging of therapy for her rheumatoid, we will keep the Zipline in place even though the incision looks very good. Patient is in agreement with this because she has had a history of her incisions opening up. Patient may continue activities as tolerated. They are weightbearing as tolerated to the operative extremity and will begin outpatient PT. We refilled the oxycodone today. They will continue to take Celebrex and Tylenol as needed for assistance with swelling and pain associated with the operative extremity. Patient to continue their aspirin DVT prophylaxis as previously instructed. This includes wearing their HERNANDEZ hose on the operative extremity for another two weeks. Follow-up in 1 week for a recheck and likely removal of Zipline and if everything looks good then 3 weeks for repeat examination and 3 view x-rays of the left knee. [facility] Other 06-17-2022 Evaluation note* Encounter Date Diagnosis Assessment Notes Treatment Notes Treatment Clinical Notes Feb, Arthritis of left knee (ICD-10 - M17.12) [facility] Other 06-10-2022 Evaluation note* Encounter Date Diagnosis Assessment Notes Treatment Notes Treatment Clinical Notes Feb, Other Prolonged Servi irina 1. H and P date: 02/11/2022 2. Diagnosis: Left knee rheumatoid arthritis 3. Counseling: Patient received counseling at her history and physical 4. Coordination of care: The patient was discussed at today's total joints meeting with anesthesia, OR staff, and implant reps in an effort to coordinate the patient's care during the perioperative period. The anesthesiologist was involved in discussions regarding the patient's pain management such as regional blocks, anesthesia plans the day of surgery such as general versus spinal, as well as a final review of lab work to ensure the patient could proceed with surgery safely. The grocery manager was vital for surgery timing and scheduling purposes. The implant rep was also available for necessary discussions regarding preoperative templates that were created on preoperative x-rays to ensure the appropriate implants and sizes of implants would be available the day of surgery. The patient's discharge plan was also discussed and the final decision was confirmed. 5. Medication Changes: Due to low vitamin D and her screening labs she was started on 5000 her national units of vitamin D daily 6. Lab Tests: The patient's screening tests including albumin levels, vitamin D levels, hemoglobin, hemoglobin A1c, cotinine serum level, and MRSA nasal cultures were all reviewed to ensure appropriate perioperative care can be performed. This included selection of perioperative antibiotics, surgical dressing, and any contact precautions that may need to be enacted. The patient's presurgical testing lab work was also reviewed. This included a CBC, BMP, UA, fructosamine, and a blood type and screen. This lab work was discussed with anesthesia during today's total joints meeting to ensure the patient could proceed with surgery safely. 7. Review of reports/records: The surgical clearance information provided by the patient's PCP and if deemed necessary, other specialists, was reviewed. Any recommendations made by these care providers were taken into consideration for the patient's perioperative and postoperative treatment plans. Prolonged services time spent: 32 minutes [facility] Other 06-01-2022 Evaluation note* Encounter Date Diagnosis Assessment Notes Treatment Notes Treatment Clinical Notes Feb, Other osteoporosis without current pathological fracture (ICD-10 - M81.8) Feb, Arthritis of left knee (ICD-10 - M17.12) Feb, Other fpc (current) drug therapy (ICD-10 - Z79.899) Feb, Other 1. Left TKA Home Medications - DVT prophylaxis: Aspirin - NSAID: Celebrex versus prednisone 5 mg x 10-day postop. She tells me she has a history of CKD but we will await her creatinine level from [facility] before making a final decision on NSAID usage perioperatively. - Disposition: Inpatient Joints Meeting Checklist - Pharmacy: [facility] to bed - Approach/Technique: VANESSA - Implants: Persona; stem - Anesthesia: General - Blocks: Adductor, iPACK - Preop Antibiotics: Ancef and Vanco - TXA: yes-systemic - Positioning/OR Bed: supine on regular bed - Intraop X-ray: no - Lara: no - Tourniquet: yes - Antibiotic powder: yes-2 grams of vanc - Antibiotic cement: No - Dressing: Zipline and Prevena 14-day The patient has tried and failed all conservative treatment options to include: activity modification, physical therapy, oral anti-inflammatories, and intra-articular steroid injections. We will move forward with the definitive treatment option and schedule the patient for the above mentioned procedure. The risks involved with surgery and postoperative complications were discussed in relation to the patient's non-modifiable risk factors including but not limited to the following: History of rheumatoid arthritis on immunosuppressive medication-she will have been off of her Simpani for over 3 months at the time of surgery and she will not restart it until at least 4 weeks after surgery when her wound is completely healed. We did discuss that I am okay with her getting back on her leflunomide now and throughout surgery if she prefers, but it sounds she wants to stay off of it until she restarts her Simpani after surgery. History of COPD Hypertension History of soft tissue infections All questions were answered after discussing these increased risks. The patient voiced understanding of these increased risks and still wishes to proceed with surgery. The risks involved with surgery and postoperative complications were discussed in relation to the patient's modifiable risk factors including but not limited to the following: BMI 36.5 All questions were answered after discussing these increased risks. The patient voiced understanding of these increased risks and still wishes to proceed with surgery. The risks and benefits of the surgery were reviewed in depth with the patient, and all questions were answered. Informed consent was obtained. The risks and potential complications of the surgery include, but are not limited to: avascular necrosis, nonunion, nerve injury, blood vessel injury, excessive bleeding, blood transfusion, infection, persistent pain, loss of fixation, failure of the implant, deep vein thrombosis, pulmonary embolus, loss of limb, fracture, leg length discrepancy, and . Patient voiced understanding of these risks and has elected to proceed with the above surgery. As we had discussed at her prior appointments the timing of surgery would be important regarding her immunosuppressant medications. Srii has been recommended by [facility]/Rheumatology guidelines to schedule surgery during week 5 or week 9 after the last dose. In her case, she has been off of it for 3 months. Furthermore, these guidelines recommend continued leflunomide use perioperatively. I discussed these recommendations with the patient and we are going to proceed with surgery on 03/02. 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 We discussed the conservative treatment options which can be beneficial in relieving pain, including gentle non-impact motion exercise and non-steroidal anti-inflammatory medication. We discussed the use of occasional cortisone injections that can provide pain relief as well as hyaluronan lubricant injection. Nov, Other 1. Left TKA - DVT prophylaxis: Aspirin - Antibiotics: Ancef and Vanco - NSAID: Prednisone postop secondary to CKD - Implants: Persona - Disposition: Inpatient with possible rehab 2. Preop screening labs will be ordered including: - hemoglobin - serum albumin - 25-OH Vit D - HgbA1c - serum cotinine - MRSA nasal culture 3. Patient will obtain preop clearances including: -PCP 4. Once our office has reviewed the above labs and clearances, we will contact the patient to discuss surgery scheduling. Patient is in agreement with the above plan. 5. The risks involved with surgery and postoperative complications were discussed in relation to the patient's nonmodifiable risk factors including but not limited to the following: History of rheumatoid arthritis on immunosuppressive medication History of COPD Hypertension History of soft tissue infections All questions were answered after discussing these increased risks. The patient voiced understanding of these increased risks and still wishes to proceed with surgery. 6. The risks involved with surgery and postoperative complications were discussed in relation to the patient's modifiable risk factors including but not limited to the following: BMI 36.5 All questions were answered after discussing these increased risks. The patient voiced understanding of these increased risks and still wishes to proceed with surgery. The patient has tried and failed all conservative treatment options to include: oral anti-inflammatories, intra-articular steroid injections, physical therapy, and assistive devices. We will move forward with the definitive treatment option and schedule the patient for the above mentioned procedure after we have reviewed screening labs and clearances. Patient understands abnormal screening labs or absent clearances could delay their surgery. Ruffin points to her surgery will be the timing based on her immunosuppressive medications. This newer medication was not 1 I am asked familiar with benefits given on an 8-week interval that we would need to likely schedule surgery between 8 to 9 weeks after her last dose and then hold back for at least 4 weeks. We may also need to consider doing that with leflunomide as well. [facility] Other Evaluation noteNo [employer] Other Evaluation note* Diagnosis Onset Date Resolution Status COPD (chronic obstructive pulmonary disease) acute High cholesterol acute Hypertension acute Sleep apnea with use of cont inuous positive airway pressure (CPAP) acute Status post left knee replacement acute [facility] Work Phone: Evaluation noteNo assessment information available [facility] Work Phone: Hisjonj general Narrative - Reported* Type Description Date Medical History COPD Medical History RHEUMATOID ARTHRITIS Medical History CERVICAL STENOSIS Medical History HYPERTENSION Medical History HIGH CHOLESTEROL Medical History ACID REFLUX Medical History HX OF INFECTION Medical History high blood pressure Surgical History Tonsilectomy 1967 Surgical History Tubal Ligation 1980 Surgical History Bilateral breast Augmentation 1 981 Surgical History Complete hysterectomy 1995 Surgical History bilateral carpal tunnel Release 2002 Surgical History Bilateral Mastompexy 2005 Surgical History Bilateral Ligation 2006 Surgical History Bilateral TRAM Reconstruction 2 008 Surgical History Bilateral Nipple/Areola Revisio n 2007 Surgical History Abdominal Scar Revision 2009 Surgical History Arthroscopic Meniscus Repair Ri ght Knee 2011 Surgical History Bilateral Myringotomy and Tube Placement 2012 [facility] Other [facility] general Narrative - Reported* Type Description Date Medical History 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 Medical History Gastro-esophageal re flux disease with esophagitis, without bleeding Medical History Raynauds phenomenon Medical History Rheumatoid arthritis flare Medical History Clostridium difficile colitis Medical History Hyperlipidemia type II Medical History History of breast cancer Medical History Primary insomnia Medical History Cervical spondylosis Medical History Partial thickness bu rn of back of right hand, initial encounter Medical History Depression screening Medical History Arthritis of wrist, left Medical History 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 Medical History Ganglion cyst of wrist, left Medical History Osteoarthritis of left knee Medical History Other hammer toe(s) (acquired), right foot Medical History Other hammer toe(s) (acquired), left foot Medical History Encounter for annual wellness ex am in Medicare patient Medical History IFG (impaired fasting glucose) Medical History Obesity (BMI 30-39.9) Medical History Rheumatoid arthritis with rheumatoid factor of right wrist without organ or systems involvement Medical History Rheumatoid arthritis involving left wrist with positive rheumatoid factor Medical History IVONE (obstructive sleep apnea) Medical History Extensor tendinitis of foot Medical History Other specified joint disorders, right ankle and foot Medical History Posterior tibial tendinitis, lef t leg Medical History Diarrhea of presumed infectious origin Medical History Night sweats Medical History Elevated erythrocyte sedimentati on rate Medical History Hypokalemia Medical History 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/unsp chr kdny Medical History Eczema, dyshidrotic Medical History Chronic bronchitis, mucopurulent Medical History Osteopenia of left hip Medical History High risk medication use Medical History Non-seasonal allergic rhinitis d ue to pollen Medical History Hammer toe of left foot Medical History Nonhealing skin ulcer, limited t o breakdown of skin Medical History Leukocytosis, unspecified type Medical History Irritable bowel syndrome with di arrhea Medical History Carpal tunnel syndrome, bilatera l Medical History Stress incontinence, female Medical History Basal cell carcinoma of skin of nose Surgical History Tonsilectomy 1967 Surgical History Tubal Ligation 1980 Surgical History Bilateral breast Augmentation 1 981 Surgical History Complete hysterectomy 1995 Surgical History bilateral carpal tunnel Release 2002 Surgical History Bilateral Mastompexy 2005 Surgical History Bilateral Ligation 2006 Surgical History Bilateral TRAM Reconstruction 2 008 Surgical History Bilateral Nipple/Areola Revisio n 2007 Surgical History Abdominal Scar Revision 2009 Surgical History Arthroscopic Meniscus Repair Ri ght Knee 2010 Surgical History Bilateral Myringotomy and Tube Placement 2012 Surgical History Arthroscopic meniscus repair 20 19 Surgical History Ganglionectomy Left Wrist 2020 Surgical History Left Total Knee Arthroscopy 202 2 Hospitalization History See Above [facility] Other History general Narrative - Reported* Type Description Date Medical History 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 Medical History Gastro-esophageal re flux disease with esophagitis, without bleeding Medical History Raynauds phenomenon Medical History Rheumatoid arthritis flare Medical History Clostridium difficile colitis Medical History Hyperlipidemia type II Medical History History of breast cancer Medical History Primary insomnia Medical History Cervical spondylosis Medical History Partial thickness bu rn of back of right hand, initial encounter Medical History Depression screening Medical History Arthritis of wrist, left Medical History 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 Medical History Ganglion cyst of wrist, left Medical History Osteoarthritis of left knee Medical History Other hammer toe(s) (acquired), right foot Medical History Other hammer toe(s) (acquired), left foot Medical History Encounter for annual wellness ex am in Medicare patient Medical History IFG (impaired fasting glucose) Medical History Obesity (BMI 30-39.9) Medical History Rheumatoid arthritis with rheumatoid factor of right wrist without organ or systems involvement Medical History Rheumatoid arthritis involving left wrist with positive rheumatoid factor Medical History IVONE (obstructive sleep apnea) Medical History Extensor tendinitis of foot Medical History Other specified joint disorders, right ankle and foot Medical History Posterior tibial tendinitis, lef t leg Medical History Diarrhea of presumed infectious origin Medical History Night sweats Medical History Elevated erythrocyte sedimentati on rate Medical History Hypokalemia Medical History 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/unsp chr kdny Medical History Eczema, dyshidrotic Medical History Chronic bronchitis, mucopurulent Medical History Osteopenia of left hip Medical History High risk medication use Medical History Non-seasonal allergic rhinitis d ue to pollen Medical History Hammer toe of left foot Medical History Nonhealing skin ulcer, limited t o breakdown of skin Medical History Leukocytosis, unspecified type Medical History Irritable bowel syndrome with di arrhea Medical History Carpal tunnel syndrome, bilatera l Medical History Stress incontinence, female Medical History Basal cell carcinoma of skin of nose Surgical History Tonsilectomy 1967 Surgical History Tubal Ligation 1980 Surgical History Bilateral breast Augmentation 1 981 Surgical History Complete hysterectomy 1995 Surgical History bilateral carpal tunnel Release 2002 Surgical History Bilateral Mastompexy 2005 Surgical History Bilateral Ligation 2006 Surgical History Bilateral TRAM Reconstruction 2 008 Surgical History Bilateral Nipple/Areola Revisio n 2007 Surgical History Abdominal Scar Revision 2009 Surgical History Arthroscopic Meniscus Repair Ri ght Knee 2011 Surgical History Bilateral Myringotomy and Tube Placement 2012 Surgical History Arthroscopic meniscus repair 20 19 Surgical History Ganglionectomy Left Wrist 2020 Surgical History Left Total Knee Arthroplasty 20 Hospitalization History See Above [facility] Other History general Narrative - Reported* Type Description Date Medical History 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 Medical History Gastro-esophageal re flux disease with esophagitis, without bleeding Medical History Raynauds phenomenon Medical History Rheumatoid arthritis flare Medical History Clostridium difficile colitis Medical History Hyperlipidemia type II Medical History Primary insomnia Medical History Cervical spondylosis Medical History Partial thickness bu rn of back of right hand, initial encounter Medical History Depression screening Medical History Arthritis of wrist, left Medical History 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 Medical History Ganglion cyst of wrist, left Medical History Osteoarthritis of left knee Medical History Other hammer toe(s) (acquired), right foot Medical History Other hammer toe(s) (acquired), left foot Medical History Encounter for annual wellness ex am in Medicare patient Medical History IFG (impaired fasting glucose) Medical History Obesity (BMI 30-39.9) Medical History Rheumatoid arthritis with rheumatoid factor of right wrist without organ or systems involvement Medical History Rheumatoid arthritis involving left wrist with positive rheumatoid factor Medical History IVONE (obstructive sleep apnea) Medical History Extensor tendinitis of foot Medical History Other specified joint disorders, right ankle and foot Medical History Posterior tibial tendinitis, lef t leg Medical History Diarrhea of presumed infectious origin Medical History Night sweats Medical History Elevated erythrocyte sedimentati on rate Medical History Hypokalemia Medical History 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/unsp chr kdny Medical History Eczema, dyshidrotic Medical History Chronic bronchitis, mucopurulent Medical History Osteopenia of left hip Medical History High risk medication use Medical History Non-seasonal allergic rhinitis d ue to pollen Medical History Hammer toe of left foot Medical History Nonhealing skin ulcer, limited t o breakdown of skin Medical History Leukocytosis, unspecified type Medical History Irritable bowel syndrome with di arrhea Medical History Carpal tunnel syndrome, bilatera l Medical History Stress incontinence, female Medical History Basal cell carcinoma of skin of nose Surgical History Tonsilectomy 1967 Surgical History Tubal Ligation 1980 Surgical History Bilateral breast Augmentation 1 981 Surgical History Complete hysterectomy 1995 Surgical History bilateral carpal tunnel Release 2002 Surgical History Bilateral Mastompexy 2005 Surgical History Bilateral Ligation 2006 Surgical History Bilateral TRAM Reconstruction 2 008 Surgical History Bilateral Nipple/Areola Revisio n 2008 Surgical History Abdominal Scar Revision 2009 Surgical History Arthroscopic Meniscus Repair Ri ght Knee 2011 Surgical History Bilateral Myringotomy and Tube Placement 2012 Surgical History Arthroscopic meniscus repair 20 19 Surgical History Ganglionectomy Left Wrist 2020 Surgical History Left Total Knee Arthroplasty 20 22 Hospitalization History See Above [facility] Other Hospital Discharge [facility] Work Phone: Reason for referral (narrative)* Reason Referral for fractur e of proximal phalanx of 2nd and 3rd toe of the right foot. Diagnosis 1 Closed nondisplaced fracture of proximal phalanx of lesser toe of right foot, initial encounter (S92.514A) Referral Organization [facility] Earl granados Referring Provider First Name Jonathan Referring Provider Last Name Earl Referring Provider Specialty Internal Me dicpresley Referred Organization [facility] Referred Provider Donta Elias Referred Address [address], [place],[address] Referred Provider Specialty Podiatry - S urgical Chiropody Referral Priority Routine General Notes Patient being referr ed for evaluation and treatment of an acute nondisplaced fracture of the proximal phalanx of the 2nd and 3rd toe of the right foot. There is mention of extension into the joint space [facility] Other Chief Complaint and Reason for Visit Chief Complaint Knee Pain Knee Pain Z47.1 Reason for Visit COPD (chronic obstru ctive pulmonary disease) High cholesterol Hypertension Sleep apnea with use of continuous positive airway pressure (CPAP) Status post left knee replacement Chief Complaint Knee Pain Z47.1 Reason for Visit COPD (chronic obstru ctive pulmonary disease) High cholesterol Hypertension Sleep apnea with use of continuous positive airway pressure (CPAP) Status post left knee replacement Chief Complaint rt hand ischemia Chief Complaint rt hand ischemia bad order Chief Complaint rt hand ischemia bad order cardiac thrombus Chief Complaint rt hand ischemia bad order L98.9 cardiac thrombus left arm hematoma swelling Chief Complaint rt hand ischemia bad order L98.9 cardiac thrombus left arm hematoma swelling labs Chief Complaint proteinuria Chief Complaint proteinuria z47.1 z96.652 Family History Relationship Condition Age at Onset Recorded Date/T andie Not Specified Pneumonia due to COVID-19 virus Unknown Myocardial infarction Unknown Chronic obstructive pulmonary disease Unk nown Hypertension Unknown father Myocardial infarction Unknown brother End-stage renal disease Unknown Advance Directives Advance Directive Response Recorded Date/ Time Advance Directives No June 17, 2017 2:12pm Advance Directive Response Recorded Date/ Time Advance Directives No June 17, 2017 1:12pm Summary Purpose Additional Source Comments REASON FOR VISIT (unrecogniz ed section and content) informLeft Knee Painpreop ap ptsH & P LEFT TOTAL KNEE [id number] InformationPOST OP MEDSNo InformationPOST OP LTK FOLLOW UP1 WK WOUND CHECK3 WEEK RECHECK6 WK WX2 WK FOLLOW UP; [facility] 09/08/22, CAROTID DUPLEX 11:30Aopen sore on ring fingerRight Ring Finger IschemiaRefillTo go over Echocardiogrambumps on left armRecheck Right Hand2 WK FOLLOW UP; [facility] 10/05/22Reche Right Hand3 MONTH FOLLOW UPNo InformationRecheck LTKAWELLNESSLab/Test Results4 WEEK RECHECKInitial WMNRefillAMS Diabetes diagnosis and A1C informationdiscuss recent testing resultsNo InformationWMNWMN exerciseNo InformationrefillNo InformationNo Information6 week follow upWMNlab resultsAS OzempicNo InformationHolter ResultsNo InformationRight Foot BruisingXR resultsWMN f/u3 month Follow upRefillNo Information Care Teams (unrecognized sec tion and content) Team Status: Inactive Member Role Status Dates Jonathan Smith , DO Primary Care Provider Active Nabor Nelson II, MD Attending Provider Active Deidre Moore , RN Other Provider Active Vaishali Howell , MARKUS Other Provider Active Maria E Regalado , RN Other Provider Active Ebony Omalley , MARKUS Other Provider Active Radha Presley RN Other Provider Active Melvi Gonzalez , MARKUS Other Provider Active Susanne Best RN Other Provider Active Letty Hurtado MD Other Provider Active Javier Nolen MD Other Provider Active Avis Herndon APRN Other Provider Active Nohemy Louis , DO Other Provider Active Vitaly Siddiqi MD Other Provider Active Nicholas Monet , DO Other Provider Active Robert Hernandez MD Other Provider Active Shirley Arias MD Other Provider Active Shelli Miller , ANP-BC Other Provider Active Kumar Newman MD Other Provider Active Hesham Martin MD Other Provider Active Christopher Manjarrez MD Other Provider Active Geraldine Arroyo MD Other Provider Active Ti Wood , DO Other Provider Active Jose Maria Del Real MD Other Provider Active Asif Solis MD Other Provider Active Selina Guillen MD Other Provider Active Andrea Pablo MD Other Provider Active Teagan Fay , [employer] Other Provider Active Chung Mary MD Other Provider Active Garry Anglin MD Other Provider Active Soren Chaudhari MD Other Provider Active Lidya Toledo MD Other Provider Active Pawel Mendoza MD Other Provider Active Yoshi Bhatia MD Other Provider Active Sara Velazquez , DO Other Provider Active Miah Liu MD Other Provider Active Eliot Ortiz , DO Other Provider Active Tristen Anthony , DO Other Provider Active Annamaria Morrison APRN Other Provider Active Leyla Garcia , MARKUS Other Provider Active Team Status: Inactive Member Role Status Dates Jonathan Smith , DO Primary Care Provider Active Nabor Nelson II, MD Attending Provider Active Team Status: Active Member Role Status Dates Jonathan Smith , DO Primary Care Provider Active Team Status: Inactive Member Role Status Dates Jonathan Smith , DO Primary Care Provider Active George Ryan MD Attending Provider Active Team Status: Inactive Member Role Status Dates Jonathan Smith , DO Primary Care Provider Active Kiana Munson MD Attending Provider Active Team Status: Inactive Member Role Status Dates Jonathan Smith , DO Primary Care Provider Active Nabor Wilson MD Attending Provider Active Goals (unrecognized section and content) Goals may be documented in a n alternate section INFORMATION SOURCE (unrecogn ized section and content) DATE CREATED AUTHOR 11/14/2022 [facility] DATE CREATED AUTHOR AUTHOR'S ORGANIZ ATION 01/25/2023 [facility] DATE CREATED AUTHOR AUTHOR'S ORGANIZ ATION 09/14/2023 [facility] FOR RECORDS PERTAINING TO PATIENTS WHO ARE OR HAVE BEEN ENROLLED IN A CHEMICAL DEPENDENCY/SUBSTANCEABUSE PROGRAM, SOME INFORMATION MAY BE OMITTED. This clinical summary was aggregated from multiple sources. Caution should be exercised in using it in the provision of clinical care. This summary normalizes information from multiple sources, and as a consequence, information in this document may materially change the coding, format and clinical context of patient data. In addition, data may be omitted in some cases. CLINICAL DECISIONS SHOULD BE BASED ON THE PRIMARY CLINICAL RECORDS. [employer] provides no warranty or guarantee of the accuracy or completeness of information in this document.
[2023-09-21 13:11] LABS: Basophils Percent Auto 0.6 % (0.2-2.0); Eosinophils Absolute Auto 0.3 10^3/uL (0.0-0.7); Hematocrit 42.8 % (36.0-48.0); Hemoglobin 13.6 g/dL (12.0-16.0); Immature Granulocytes Abs Auto 0.02 10^3/uL (0.00-0.03); Immature Granulocytes Pct Auto 0.3 % (0.0-0.5); Lymphocytes Absolute Auto 1.8 10^3/uL (1.2-3.8); Lymphocytes Percent Auto 25.8 % (20.5-60.0); Mean Corpuscular HGB Conc 31.8 g/dL (29.9-35.2); Mean Corpuscular Hemoglobin 29.6 pg (26.7-34.0); Mean Corpuscular Volume 93.2 fL (81.0-99.0); Mean Platelet Volume 11.9 fL (9.5-13.5); Monocytes Absolute Auto 0.8 10^3/uL (0.3-0.8); Monocytes Percent Auto 11.4 % (1.7-12.0); Neutrophils Absolute Auto 4.1 10^3/uL (1.4-6.5); Neutrophils Percent Auto 57.9 % (43.0-75.0); Platelet Count 232 10^3/uL (150-450); Red Blood Count 4.59 10^6/uL (4.20-5.40); Red Cell Distribution Width 12.7 % (11.0-15.0)
[2023-09-21 13:30] LABS: Erythrocyte Sedimentation Rate 14 mm/hr (<=30)
[2023-09-21 14:22] LABS: Alanine Aminotransferase 25 U/L (14-59); Albumin Globulin Ratio 0.9; Albumin Level 3.4 g/dL (3.4-5.0); Alkaline Phosphatase 72 U/L (46-116); Aspartate Amino Transferase 16 U/L (15-37); Bilirubin Direct 0.1 mg/dL (0.0-0.2); Bilirubin Total 0.4 mg/dL (0.2-1.0); Estimated GFR (African America >60 (>=60); Estimated GFR (Non-African Ame 52 (>=60); Globulin 3.7 g/dL; Total Protein 7.1 g/dL (6.4-8.2)
== END 2023-09-21 12:44 | disposition home or self-care (01) ==
LOC: LAB 12:44
PROVIDERS: PCP Internal Medicine; Visit Provider Internal Medicine Rheumatology
DX: M05.79 Rheumatoid arthritis with rheumatoid factor of multiple sites without organ or systems involvement (principal); Z79.899 Other long term (current) drug therapy
CPT/HCPCS: 36415; 80076; 82565; 85025; 85652

== ENCOUNTER 2023-11-16 10:04 | Outpatient (OUT) | payer MEDICARE, OTHER, SELFPAY ==
--- OUTSIDE RECORDS SUMMARY | 2023-11-16 10:19 | XMS_ITS | CCD ---
Author Name Unknown Address [address] [place] [address] Organization [facility] Care Team Providers Care Pit Clerk Name Role Phone Nabor Nelson II Unavailable [...] Nolen Other Provider KESHAWN Herndon Other Provider [phone] DO Nohemy Louis Other Provider [phone] MD Vitaly Siddiqi Other Provider [phone] DO Nicholas Monet Other Provider MD Robert Hernandez Other Provider MD Shirley Arias Other Provider Paul ANP-BC Shelli Other Provider MD Kumar Newman Other Provider MD Hesham Martin Other Provider MD Christopher Manjarrez Other Provider MD Geraldine Arroyo Other Provider DO Ti Wood Other Provider Unavailable MD Jose Maria Del Real Other Provider MD Asif Solis Other Provider MD Selian Guillen Other Provider MD Andrea Pablo Other Provider Nya BALLISTICIAN-C Teagan Dahl Other Provider MD Chung Mary Other Provider MD Garry Anglin Other Provider MD Soren Chaudhari Other Provider Unavailable MD Lidya Toledo Other Provider MD Pawel Mendoza Other Provider Isra Bhatia MD Yoshi Other Provider DO Sara Velazquez Other Provider MD Miah Ashford Other Provider DO Eliot Ortiz Other Provider DO Tristen Anthony Other Provider KESHAWN Morrison Other Provider MARKUS Garcia Other Provider Unavailable DO Jonathan Smith Primary Care Provider MD Nabor Nelson II Attending Provider DO Jonathan Smith Primary Care Provider MD [...] DR TOMLIN Admitting Unavailable BALL, DR CASTILLO Primary Care Unavailable OMARNABOR ROWE Attending Unavailable OMARNABOR CELAYA Admitting Unavailable Earl, DO Castillo Primary Care Provider [phone] MD Nabor Wilson Attending Provider MD Nabor Nelson II Attending Provider MD Kiana Munson Attending Provider Olayinka Ramos Unavailable Massiel Pereira Unavailable Jonathan Smith Primary Care Unavailable Nabor Nelson II Admitting UnavailNabor Mackenzie II Attending UnavailOlayinka Díaz Admitting Unavailable Olayinka Ramos Attending Unavailable Jonathan Smith Primary Care Unavailable Earl, Jonathan Primary Care Unavailable Kiana Munson Admitting Unavailable Kiana Munson Attending Unavailable Olayinka Ramos Admitting Unavailable Olayinka Ramos Attending Unavailable Jonathan Smith Primary Care Unavailable Jonathan Smith Primary Care Unavailable Nabor Wilson Admitting Unavailable Nabor Wilson Attending Unavailable Allergies Allergy Classification Reported Allergen(s) Allergy Type Date of Onset Reaction(s) Facility (20 sources) Adhesive Tape Drug allergy Unknown [employer] [facility] [employer] Other (20 sources) Hydroxychloroquine Drug Allergy rash [facility] (20 sources) Morphine Drug Allergy Unknown, Unresponsive [facility] (12 sources) Adhesive Tape; Translations: [adhesive tape] Allergy to substance Redness of Skin, skin tears [facility] (1 source) Adhesive agent Drug allergy (disorder) [facility] (1 source) Hydroxychloroquine Drug Allergy [facility] Repository (1 source) Morphine Drug Allergy [facility] (20 sources) Morphine Sulfate (Concentrate) *ANALGESICS - OPIOI Propensity to adverse reactions Unknown [employer] [facility] [employer] Other (3 sources) Allergies Reconciled Propensity to adverse reactions Unknown [employer] [facility] [employer] Other (3 sources) patient allergy list reviewed by nurse or physicia Propensity to adverse reactions Comment:Done [employer] Other (1 source) Hydroxychloroquine Drug Allergy 023 [facility] Repository (1 source) Morphine Drug Allergy 023 [facility] Rep[facility] Medications Current Medications Medication Drug [...] 12:00am Start: 02-11-2022 take 2 tablets by [facility] every eight hours for pain Acetaminophen 500 MG 2 tablets for pain Orally every 8 hrs for 30 days MED TO BED UPON DISCHARGE DOS: 03/02/2022 Feb, Active [id number] 200 actuat albuterol 0.09 mg/actuat metered dose [...] 11:00pm Start: 03-03-2022 take 1 tablet by khurram twice daily Calcium Carbonate-Vitamin D3 (Oyster Shell Calcium-Vit D3) 500 mg-5 mcg (200 unit) Tablet Active 1 TAB PO Twice daily March 03, 2022 12:00am cefadroxil 500 mg oral capsule (15 sources) Cephalosporin Antibacterial Start: 03-03-2022 take 500 mg by mouth twice daily Cefadroxil Active 500 MG PO Twice daily March 03, 2022 12:00am Start: 02-11-2022 take 1 capsule by [facility] every twelve hours Cefadroxil 500 [...] Active docusate sodium 50 mg / sennosides, senior care 8.6 mg oral tablet (18 sources) Start: [...] 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 take 0.5 tablet by m outh every [...] a day for 14 days Sep, Active [place] 7-Fnc-Fom-Fish Oil (Fish Oil) 1,200 (144-216) mg Capsule (11 sources) Start: 02-12-2022 take 1 capsule by mouth once daily [place] 5-Mfj-Leh-Fish Oil (Fish Oil) 1,200 (144-216) mg Capsule Active 1200 CAP PO Daily February 11, 2022 11:00pm Start: 02-12-2022 take 1 capsule by mo [facility] once daily [place] 2-Dil-Ary-Fish Oil (Fish Oil) 1,200 (144-216) mg Capsule [...] Start: 02-11-2022 take 1 tablet by khurram three times daily as needed for nausea Ondansetron HCl 8 MG 1 tablet as needed for nausea Orally Three times a day for 10 days MED TO BED UPON DISCHARGE DOS: 03/02/2022 Feb, Active take 1 tablet by khurram every twenty-four hours Ondansetron 4 MG 1 tablet on the tongue and allow to dissolve Orally Once a day Not-Taking oxyCODONE hydrochloride 5 mg oral tablet (18 sources) Opioid Agonist Start: 02-11-2022 take 5 mg by mouth every four hours Oxycodone Active 5 MG PO Every 4 hours March 03, 2022 ozempic (2 mg/dose) 8 mg/3ml solution pen-injector (4 sources) Ozempic (2 MG/DO SE) 8 MG/3ML 2 mg subcutaneously once weekly Subcutaneous Once weekly Active pantoprazole 40 mg delayed release oral tablet (20 sources) Proton Pump Inhibitor Pantoprazole Sodium 40 MG TAKE 1 TABLET BY MOUTH DAILY ON AN EMPTY STOMACH FOLLOWED IN 30 MIN BY BREAKFAST for 90 Active polyethylene glycol 3350 31191 mg powder for oral solution (15 sources) [...] release oral tablet (15 sources) Blood Viscosity 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 take 1 tablet by mouth twice daily [...] current use of drug therapy; 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] Episodic Other aftercare (3 sources) Other snf (current) drug therapy; Translations: [OTH [facility] CURRENT DRUG THERAPY] Onset: 2 Resolved: 2 Episodic Other aftercare (3 sources) High risk drug monitoring status; Translations: [prison (current) use of opiate analgesic] Episodic Other bone disease and musculoskeletal deformities (3 [...] nutritional; endocrine; and metabolic disorders (8 sources) Obesity, unspecified; Translations: [Obesity, unspecified classification, [...] Chronic Other nutritional; endocrine; and metabolic disorders (15 sources) Severe obesity; Translations: [Morbid (severe) obesity due to excess calories] Chronic Other nutritional; endocrine; and metabolic disorders (4 sources) Body mass index (BMI) 35.0-35.9, adult Chronic Other nutritional; endocrine; and metabolic disorders (10 sources) Obese class I; Translations: [Body mass index (BMI) 33.0-33.9, adult] Chronic Other nutritional; endocrine; and metabolic disorders (2 sources) Body mass index (BMI) 33.0-33.9, adult Chronic [...] apnea (adult) (pediatric)] Chronic Residual codes; unclassified (3 sources) Continuous positive airway pressure ventilation treatment; [...] [Aftercare following joint replacement surgery] Onset: 3 Past or Other Problems Problem [...] mass and lump, left upper limb] Onset: 03-03-2023 Episodic Other skin disorders (1 source) Generalized [...] 3V*on 2022 XR wrist LT min 3V* [facility] [employer] Other XR wrist LT min 3V* [facility] [employer] Other XR wrist LT min 3V* [address] [facility] [employer] Other XR wrist LT min 3V* [place] [address] [place] [employer] Other XR wrist LT min 3V* XRay Report [place] [employer] Other XR wrist LT min 3V* Signed [employer] Other XR wrist LT min 3V* Patient: Reba Gregory MR#: [id number] [employer] Other XR wrist LT min 3V* : 1955 Acct:[id number] [employer] Other XR wrist LT min 3V* Age/Sex: 67 / F ADM Date: 03/03/23 [employer] Other XR wrist LT min 3V* [place] [facility] Room: Type: [facility] [employer] Other XR wrist LT min 3V* Attending Dr: Kiana Munson MD [employer] Other XR wrist LT min 3V* Copies to: Kiana Munson MD [employer] Other XR wrist LT min 3V* Ordering Provider: Kiana Munson MD [employer] Other XR wrist LT min 3V* Date of Service: 03/03/23 [employer] Other XR wrist LT min 3V* XR/XR wrist LT min 3V*: Wrist arthritis;Mass of left hand [employer] Other XR wrist LT min 3V* LEFT WRIST - 4 views [employer] Other XR wrist LT min 3V* CLINICAL HISTORY: Left wrist pain for months. Possible cyst ulnar aspect of left hand. [employer] Other XR wrist LT min 3V* COMPARISON: None [employer] Other XR wrist LT min 3V* FINDINGS: [employer] Other XR wrist LT min 3V* No focal soft tissue abnormality is seen. No acute bony process is noted. There is widening of the [employer] Other XR wrist LT min 3V* scapholunate space with SLAC wrist deformity. Cystic changes are noted involving the capitate and [employer] Other XR wrist LT min 3V* hamate bones. No bony erosions. Moderate degenerative changes are noted involving the CMC joint of [employer] Other XR wrist LT min 3V* the thumb. 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 NO ACUTE BONY PROCESS. [employer] Other XR wrist LT min 3V* DEGENERATIVE CHANGES, WORST AT THE [facility] JOINT OF THE THUMB. [employer] Other XR wrist LT min 3V* Impression dictated by: Dave Espana Jr., D.OShannon03/03/2023 11:50 AM [employer] Other XR wrist LT min 3V* Dictation Location: [facility] [employer] Other XR wrist LT min 3V* Transcribed By: TANYA 03/03/23 1150 [employer] Other XR wrist LT min 3V* Dictated By: Dave Espana Jr, DO 03/03/23 1147 [employer] Other XR wrist LT min 3V* Signed By: Located Within [facility] [employer] Other XR wrist LT min 3V* 03/03/23 1150 [facility] [employer] Other XR wrist LT min 3V* [facility] [address] [place] [address] XRay Report Signed Patient: Reba Gregory MR#: [id number] : 1955 Acct:[id number] Age/Sex: 67 / F ADM Date: 03/03/23 [place] [facility] Room: Type: [facility] Attending Dr: Kiana Munson MD Copies to: [...] Espana Jr., D.OShannon03/03/2023 11:50 AM Dictation Location: [place] [address] Transcribed By: [facility] 03/03/23 1150 Dictated By: Dave Espana Jr, DO 03/03/23 1147 Signed By: 03/03/23 1150 Normal [facility] XR knee LT 2Von 02-17-2023 XR knee LT 2V [facility] [address] [place] [address] XRay Report Signed Patient: Reba Gregory MR#: [id number] : 1955 Acct:[id number] Age/Sex: 67 / F ADM Date: 02/17/23 Loc: [facility] Room: Type: [facility] Attending Dr: Nabor Nelson II, MD Copies [...] Rome Guerra M.D.02/17/2023 1:58 PM Dictation Location: [place] [address] Transcribed By: [facility] 02/17/23 1358 Dictated By: Rome Guerra DO 02/17/23 1357 Signed By: 02/17/23 1358 Normal [facility] XR knee LT 2V [facility] [employer] Other XR knee LT 2V [facility] Main [facility] [employer] Other XR knee LT 2V [address] [place] [address] [employer] Other XR knee LT 2V [address] [employer] Other XR knee LT 2V XRay Report [place] [employer] Other XR knee LT 2V Signed [place] [employer] Other XR knee LT 2V Patient: Reba Gregory MR#: [id number] Located Within [facility] [employer] Other XR knee LT 2V : 1955 Acct:[id number] [place] [employer] Other XR knee LT 2V Age/Sex: 67 / F ADM Date: 02/17/23 Located Within [facility] [employer] Other XR knee LT 2V Loc: [facility] Room: Type: REG CLI [employer] Other XR knee LT 2V Attending Dr: Nabor Nelson II, MD [employer] Other XR knee LT 2V Copies to: Nabor Nelson MD [employer] Other XR knee LT 2V Ordering Provider: Nabor Nelson MD [employer] Other XR knee LT 2V Date of Service: 02/17/23 [employer] Other XR knee LT 2V XR/XR knee LT 2V: Aftercare following joint replacement surgery;Presence [employer] Other XR knee LT 2V of le [employer] Other XR knee LT 2V 2 views left knee plain film [employer] Other XR knee LT 2V COMPARISON: 05/28/2022 [employer] Other XR knee LT 2V HISTORY: Status post left total knee arthroplasty [employer] Other XR knee LT 2V ACUTE FINDINGS: None N [employer] Other XR knee LT 2V DEGENERATIVE CHANGE: Unremarkable [employer] Other XR knee LT 2V SOFT TISSUE FINDINGS: Unremarkable [employer] Other XR knee LT 2V JOINT EFFUSION: None N [employer] Other XR knee LT 2V POSTOP CHANGES: No hardware failure or loosening. [employer] Other XR knee LT 2V BONE MINERALIZATION: Adequate [employer] Other XR knee LT 2V XR/XR knee LT 2V [employer] Other XR knee LT 2V IMPRESSION: Stable left knee arthroplasty [employer] Other XR knee LT 2V Impression dictated by: Rome Guerra M.D.02/17/2023 1:58 PM [employer] Other XR knee LT 2V Dictation Location: [place] [address] [employer] Other XR knee LT 2V Transcribed By: PWS 02/17/23 135 [employer] Other XR knee LT 2V Dictated By: Rome Guerra DO 02/17/23 [facility] [employer] Other XR knee LT 2V Signed By: [employer] Other XR knee LT 2V 02/17/23 [facility] [employer] Other Automated epithelial cells c ount in urine sediment (number/area)Ordered By: Nabor Wilson on 02-03-2023 Epithelial cells Auto (Urine sed) [#/Area] 0-1 [HPF] 0-2 [facility] Automated erythrocytes count in urine sediment (number/area)Ordered By: Nabor Wilson on 02-03-2023 RBC Auto (Urine sed) [#/Area] 0-1 [HPF] 0-4 [facility] Automated leukocytes count i n urine sediment (number/area)Ordered By: Nabor Wilson on 02-03-2023 WBC Auto (Urine sed) [#/Area] 0-1 [HPF] 0-4 [facility] Automated urine hyaline cast s count (number/volume)Ordered By: Nabor Wilson on 02-03-2023 Hyaline casts Auto (U) [#/Vol] None seen [LPF] 0-1 [facility] Bilirubin Test strip Ql (U)O rdered By: Nabor Wilson on 02-03-2023 Bilirubin Ql (U) Negative Negative [facility] Calcium [Mass/volume] in 24 hour UrineOrdered By: Nabor Wilson on 02-03-2023 Calcium (24H U) [Mass/Vol] 1.1 mg/dL Not Estab. [facility] Calcium/Creatinine [Mass Rat io] in UrineOrdered By: Nabor Wilson on 02-03-2023 Calcium/Creatinine (U) [Mass ratio] 24 mg/g creat 29-442 [facility] Comment on above: Performed at: - [place] [id number] Director: Matty Diaz PhD, Phone: [phone] Color Auto (U)Ordered By: Anne Wilson on 02-03-2023 Color (U) Yellow Yellow [facility] Creatinine [Mass/volume] in UrineOrdered By: Nabor Wilson on 02-03-2023 Creatinine (U) [Mass/Vol] 46.2 mg/dL Not Estab. [facility] Dipstick and Microscopicon 0 02-03-2023 Appearance (U) Clear Normal Clear [facility] Comment on above: Order Comment: Name Collection Type:: Clean-Voided Midstream Performed By: #### A DDONUAPLUS #### [facility] [address] [place] [address] #### UR CA CREAT RAT #### [facility] , Bacteria,Urine None Seen Normal None Seen [facility] Comment on above: Order Comment: Name Collection Type:: Clean-Voided Midstream Performed By: #### A DDONUAPLUS #### [facility] [address] [place] [address] [place] #### UR CA CREAT RAT #### [facility] , Bilirubin,Urine Negative Normal Negative [facility] Comment on above: Order Comment: Name Collection Type:: Clean-Voided Midstream Performed By: #### A DDONUAPLUS #### [facility] [address] [place] [address] [place] #### UR CA CREAT RAT #### [facility] , Color (U) Yellow Normal Yellow [facility] Comment on above: Order Comment: Name Collection Type:: Clean-Voided Midstream Performed By: #### A DDONUAPLUS #### [facility] [address] [place] [address] [place] #### UR CA CREAT RAT #### [facility] , Glucose Ql (U) Normal Normal Normal [facility] Comment on above: Order Comment: Name Collection Type:: Clean-Voided Midstream Performed By: #### A DDONUAPLUS #### [facility] [address] [place] [address] #### UR CA CREAT RAT #### [facility] , Hyaline Casts,Urine None Seen Normal 0-1 [facility] Comment on above: Order Comment: Name Collection Type:: Clean-Voided Midstream Result Comment: PERF ORMED BY: [place] [address] PATHOLOGIST TOOL COORDINATOR ADAIR MARK M.D. Performed By: #### A DDONUAPLUS #### [address] #### UR CA CREAT RAT #### [facility] , Ketones Ql (U) Negative Normal Negative [facility] Comment on above: Order Comment: Name Collection Type:: Clean-Voided Midstream Performed By: #### A DDONUAPLUS #### [facility] [address] [place] [address] #### UR CA CREAT RAT #### [facility] , Leukocyte esterase Test strip Ql (U) Negative Normal Negative [facility] Comment on above: Order Comment: Name Collection Type:: Clean-Voided Midstream Performed By: #### A DDONUAPLUS #### [facility] [address] [place] [address] #### UR CA CREAT RAT #### [facility] , Nitrite,Urine Negative Normal Negative [facility] Comment on above: Order Comment: Name Collection Type:: Clean-Voided Midstream Performed By: #### A DDONUAPLUS #### [address] #### UR CA CREAT RAT #### [facility] , Occult Blood,Urine Negative Normal Negative [facility] Comment on above: Order Comment: Name Collection Type:: Clean-Voided Midstream Performed By: #### A DDONUAPLUS #### [address] #### UR CA CREAT RAT #### [facility] , pH (U) 5.5 [pH] Normal 5.0-9.0 [facility] Comment on above: Order Comment: Name Collection Type:: Clean-Voided Midstream Performed By: #### A DDONUAPLUS #### [address] #### UR CA CREAT RAT #### [facility] , Protein,Urine Negative Normal Negative [facility] Comment on above: Order Comment: Name Collection Type:: Clean-Voided Midstream Performed By: #### A DDONUAPLUS #### [address] #### UR CA CREAT RAT #### [facility] , RBC LM.HPF (Urine sed) [#/Area] 0 /[HPF] Normal 0-4 [facility] Comment on above: Order Comment: Name Collection Type:: Clean-Voided Midstream Performed By: #### A DDONUAPLUS #### [address] #### UR CA CREAT RAT #### [facility] , Specificy [place],Urine 1.010 Normal 1.001-1.030 [facility] Comment on above: Order Comment: Name Collection Type:: Clean-Voided Midstream Performed By: #### A DDONUAPLUS #### [address] #### UR CA CREAT RAT #### [facility] , Squamous Epithelial Cell,Urine 0-1 Normal 0-2 [facility] Comment on above: Order Comment: Name Collection Type:: Clean-Voided Midstream Performed By: #### A DDONUAPLUS #### [address] [place] [address] [place] #### UR CA CREAT RAT #### [facility] , Urobilinogen,Urine Normal Normal Normal [facility] Comment on above: Order Comment: Name Collection Type:: Clean-Voided Midstream Performed By: #### A DDONUAPLUS #### [facility] [address] [place] [address] #### UR CA CREAT RAT #### [facility] , WBC LM.HPF (Urine sed) [#/Area] 0 /[HPF] Normal 0-4 [facility] Comment on above: Order Comment: Name Collection Type:: Clean-Voided Midstream Performed By: #### A DDONUAPLUS #### [address] #### UR CA CREAT RAT #### [facility] , Ketones Auto test strip (U) [Mass/Vol]Ordered By: Nabor Wilson on 02-03-2023 Ketones (U) [Mass/Vol] Negative Negative [facility] Nitrite Test strip Ql (U)Ord ered By: Nabor Wilson on 02-03-2023 Nitrite Ql (U) Negative Negative [facility] Protein Auto test strip (U) [Mass/Vol]Ordered By: Nabor Wilson on 02-03-2023 Protein (U) [Mass/Vol] Negative Negative [facility] Specific gravity Auto test s trip (U) [Rel density]Ordered By: Nabor Wilson on 02-03-2023 Specific gravity (U) [Rel density] 1.010 1.001-1.030 [facility] Ur Calcium/Creatinine Ratioo n 02-03-2023 Calcium, Urine 1.1 mg/dL Normal Not Estab. [facility] Comment on above: Performed By: #### A DDONUAPLUS #### [place] [address] [place] #### UR CA CREAT RAT #### [facility] , Creatinine, Urine 46.2 mg/dL Normal Not Estab. [facility] Comment on above: Performed By: #### A DDONUAPLUS #### [facility] [address] [place] [address] [place] #### UR CA CREAT RAT #### [facility] , Ur Calcium/Creatinine Ratio 24 [facility] [address] Comment on above: Result Comment: Perf ormed at: CB - [facility] [place] [id number] Quality Control Supervisor: Matty Diaz PhD, Phone: [phone] PERFORMED BY: [place] [address] PATHOLOGIST TOOL COORDINATOR ADAIR MARK M.D. Performed By: #### A DDONUAPLUS #### [facility] [address] [place] [address] #### UR CA CREAT RAT #### [facility] , Urine bacteria detection by automated methodOrdered By: Nabor Wilson on 02-03-2023 Bacteria Auto Ql (U) None seen None Seen [facility] Urine clarity by refractomet ry automatedOrdered By: Nabor Wilson on 02-03-2023 Clarity Refractometry automated (U) Clear Clear [facility] Urine glucose measurement by automated test strip (mass/volume)Ordered By: Nabor Wilson on 02-03-2023 Glucose Auto test strip (U) [Mass/Vol] Normal mg/dL Normal [facility] Urine hemoglobin detection b y automated test stripOrdered By: Nabor Wilson on 02-03-2023 Hemoglobin Auto test strip Ql (U) Negative Negative [facility] Urine leukocyte esterase det ection by automated test stripOrdered By: Nabor Wilson on 02-03-2023 Leukocyte esterase Auto test strip Ql (U) Negative Negative [facility] Urobilinogen Auto test strip (U) [Mass/Vol]Ordered By: Nabor Wilson on 02-03-2023 Urobilinogen (U) [Mass/Vol] Normal mg/dL Normal [facility] pH Auto test strip (U)Ordere d By: Nabor Wilson on 02-03-2023 pH (U) 5.5 [pH] 5.0-9.0 [facility] C3 and C4 COMPLEMENTon 01-22 Complement C3, Serum 147 mg/dL Normal 82-167 [facility] Comment on above: Performed By: #### C SUITE #### [facility] [address] [place] [address] Dr. Agueda Wiley Complement C4, Serum 29 mg/dL Normal 12-38 [facility] Comment on above: Performed By: #### C SUITE #### [facility] [address] [place] [address] Dr. Agueda Wiley CBC AUTO DIFFon 01-21-2023 BASO # 0.1 103/ul Normal 0.0-0.1 [facility] Comment on above: Performed By: #### C MIKKI, LIVER #### [facility] [address] [place] [address] Dr. Agueda Wiley Basophils/100 WBC (Bld) 0.6 % Normal 0.2-2.0 [facility] Comment on above: Performed By: #### C MIKKI, LIVER #### [facility] [address] [place] [address] Dr. Agueda Wiley EO # 0.2 103/ul Normal 0.0-0.7 [facility] Comment on above: Performed By: #### C MIKKI, LIVER #### [facility] [address] [place] [address] Dr. Agueda Wiley Eosinophils/100 WBC (Bld) 1.7 % Normal 0.9-7.0 [facility] Comment on above: Performed By: #### C MIKKI, LIVER #### [facility] [address] [place] [address] Dr. Agueda Wiley Erythrocyte distribution width (RBC) [Ratio] 12.4 % Normal 11.0-15.0 [facility] Comment on above: Performed By: #### C MIKKI, LIVER #### [facility] [address] [place] [address] Dr. Agueda Wiley Hematocrit (Bld) [Volume fraction] 44.0 % Normal 36.0-48.0 [facility] Comment on above: Performed By: #### C MIKKI, LIVER #### [facility] [address] [place] [address] Dr. Agueda Wiley Hemoglobin (Bld) [Mass/Vol] 14.2 g/dL Normal 12.0-16.0 [facility] Comment on above: Performed By: #### C MIKKI, LIVER #### [facility] [address] [place] [address] Dr. Agueda Wiley IG # 0.03 10e3/ul Normal 0.00-0.03 [facility] Comment on above: Performed By: #### C MIKKI, LIVER #### [facility] [address] [place] [address] Dr. Agueda Wiley IG % 0.3 % Normal 0.0-0.5 [facility] Comment on above: Performed By: #### C MIKKI, LIVER #### [facility] [address] [place] [address] Dr. Agueda Wiley LYMPH # 2.2 103/ul Normal 1.2-3.8 [facility] Comment on above: Performed By: #### C MIKKI, LIVER #### [facility] [address] [place] [address] Dr. Agueda Wiley Lymphocytes/100 WBC (Bld) 21.1 % Normal 20.5-60.0 [facility] Comment on above: Performed By: #### C MIKKI, LIVER #### [facility] [address] [place] [address] Dr. Agueda Wiley MANUAL DIFF REQ NO Normal [facility] Comment on above: Performed By: #### C MIKKI, LIVER #### [facility] [address] [place] [address] Dr. Agueda Wiley MCH (RBC) [Entitic mass] 29.8 pg Normal 26.7-34.0 [facility] Comment on above: Performed By: #### C MIKKI, LIVER #### [facility] [address] [place] [address] Dr. Agueda Wiley MCHC (RBC) [Mass/Vol] 32.3 g/dL Normal 29.9-35.2 [facility] Comment on above: Performed By: #### C MIKKI, LIVER #### [facility] [address] [place] [address] Dr. Agueda Wiley MCV (RBC) [Entitic vol] 92.2 fL Normal 81.0-99.0 [facility] Comment on above: Performed By: #### C MIKKI, LIVER #### [facility] [address] [place] [address] Dr. Agueda Wiley MONO # 1.0 103/ul Critically high 0.3-0.[address] [facility] Comment on above: Performed By: #### C MIKKI, LIVER #### [facility] [address] [place] [address] Dr. Agueda Wiley Monocytes/100 WBC (Bld) 9.2 % Normal 1.7-12.0 [facility] Comment on above: Performed By: #### C MIKKI, LIVER #### [facility] [address] [place] [address] Dr. Agueda Wiley NEUT # 7.0 103/ul Critically high 1.4-6.[address] [facility] Comment on above: Performed By: #### C MIKKI, LIVER #### [facility] [address] [place] [address] Dr. Agueda Wiley Neutrophils/100 WBC (Bld) 67.1 % Normal 43.0-75.0 [facility] Comment on above: Performed By: #### C MIKKI, LIVER #### [facility] [address] [place] [address] Dr. Agueda Wiley Platelet mean volume (Bld) [Entitic vol] 11.6 fL Normal 9.5-13.5 [facility] Comment on above: Performed By: #### C MIKKI, LIVER #### [facility] [address] [place] [address] Dr. Agueda Wiley PLT 289 103/ul Normal 150-450 [facility] Comment on above: Performed By: #### C MIKKI, LIVER #### [facility] [address] [place] [address] Dr. Agueda Wiley RBC 4.77 106/ul Normal 4.20-5.40 [facility] Comment on above: Performed By: #### C MIKKI, LIVER #### [facility] [address] [address] [address] Agueda Wiley WBC 10.5 103/ul Normal 4.0-11.0 [facility] Comment on above: Performed By: #### C MIKKI, LIVER #### [facility] [address] [address] [address] Agueda Wiley CREATININEon 01-21-2023 Creatinine [Mass/Vol] 1.19 mg/dL Critically high 0.55-1.02 [facility] Comment on above: Performed By: #### C MIKKI, LIVER, CRP #### [facility] [address] [address] [address] Agueda Wiley EGFR-AF PANAMANIAN 55 mL/min/1.73m2 Critically low >=60 [facility] Comment on above: Performed By: #### C MIKKI, LIVER, CRP #### [facility] [address] [address] [address] Agueda Wiley EGFR-NON AF PANAMANIAN 45 mL/min/1.73m2 Critically low >=60 [facility] Comment on above: Performed By: #### C MIKKI, LIVER, CRP #### [facility] [address] [address] [address] Agueda Wiley CRPon 01-21-2023 CRP [Mass/Vol] mg/L Normal <=1.0 [facility] Comment on above: Performed By: #### C MIKKI, LIVER, CRP #### [facility] [address] [address] [address] Agueda Wiley LIVER PROFILEon 01-21-2023 Albumin [Mass/Vol] 3.5 g/dL Normal 3.4-5.0 [facility] Comment on above: Performed By: #### C MIKKI, LIVER, CRP #### [facility] [address] [address] [address] Agueda Wiley Albumin/Globulin [Mass ratio] 0.8 {ratio} Normal [facility] Comment on above: Performed By: #### C MIKKI, LIVER, CRP #### [facility] [address] [place] [address] Dr. Agueda Wiley ALP [Catalytic activity/Vol] 87 U/L Normal 46-116 [facility] Comment on above: Performed By: #### C MIKKI, LIVER, CRP #### [facility] [address] [place] [address] Dr. Agueda Wiley ALT [Catalytic activity/Vol] 33 U/L Normal 14-59 [facility] Comment on above: Performed By: #### C MIKKI, LIVER, CRP #### [facility] [address] [place] [address] Dr. Agueda Wiley AST [Catalytic activity/Vol] 22 U/L Normal 15-37 [facility] Comment on above: Performed By: #### C MIKKI, LIVER, CRP #### [facility] [address] [place] [address] Dr. Agueda Wiley BILI, CONJUGATED 0.1 mg/dL Normal 0.0-0.2 [facility] Comment on above: Performed By: #### C MIKKI, LIVER, CRP #### [facility] [address] [place] [address] Dr. Agueda Wiley Bilirubin [Mass/Vol] 0.4 mg/dL Normal 0.2-1.0 [facility] Comment on above: Performed By: #### C MIKKI, LIVER, CRP #### [facility] [address] [place] [address] Dr. Agueda Wiley Globulin (S) [Mass/Vol] 4.2 g/dL Normal [facility] Comment on above: Performed By: #### C MIKKI, LIVER, CRP #### [facility] [address] [place] [address] Dr. Agueda Wiley Protein [Mass/Vol] 7.7 g/dL Normal 6.4-8.2 [facility] Comment on above: Performed By: #### C MIKKI, LIVER, CRP #### [facility] [address] [place] [address] Dr. Agueda Wiley [facility] 26 mm/hr Normal <=30 [facility] Comment on above: Performed By: #### A NAIFA #### [facility] [address] [place] [address] Dr. Agueda Wiley UA RANDOM W/MICROSCOPICon BACTERIA TRACE Abnormal NONE SEEN [facility] Comment on above: Performed By: #### C MIKKI, LIVER #### [facility] [address] [place] [address] Dr. Agueda Wiley Bilirubin Ql (U) Negative Normal NEGATIVE [facility] Comment on above: Performed By: #### C MIKKI, LIVER #### [facility] [address] [place] [address] Dr. Agueda Wiley CAST NONE SEEN Normal NONE SEEN [facility] Comment on above: Performed By: #### C MIKKI, LIVER #### [facility] [address] [place] [address] Dr. Agueda Wiley Clarity (U) CLEAR Normal CLEAR [facility] Comment on above: Performed By: #### C MIKKI, LIVER #### [facility] [address] [place] [address] Dr. Agueda Wiley Color (U) YELLOW Normal YELLOW [facility] Comment on above: Performed By: #### C MIKKI, LIVER #### [facility] [address] [place] [address] Dr. Agueda Wiley Crystals LM Nom (Urine sed) NONE SEEN Normal NONE SEEN [facility] Comment on above: Performed By: #### C MIKKI, LIVER #### [facility] [address] [place] [address] Dr. Agueda Wiley Epithelial cells LM Ql (Urine sed) FEW Abnormal NONE SEEN /RARE [facility] Comment on above: Performed By: #### C MIKKI, LIVER #### [facility] [address] [place] [address] Dr. Agueda Wiley Glucose Ql (U) Negative Normal NEGATIVE [facility] Comment on above: Performed By: #### C MIKKI, LIVER #### [facility] [address] [address] [address] Agueda Wiley Hemoglobin Ql (U) Negative Normal NEGATIVE [facility] Comment on above: Performed By: #### C MIKKI, LIVER #### [facility] [address] [place] [address] Dr. Agueda Wiley Ketones Ql (U) Negative Normal NEGATIVE [facility] Comment on above: Performed By: #### C MIKKI, LIVER #### [facility] [address] [address] [address] Agueda Wiley LEUKOCYTES Negative Normal NEGATIVE [facility] Comment on above: Performed By: #### C MIKKI, LIVER #### [facility] [address] [place] [address] Dr. Agueda Wiley MUCOUS MODERATE Abnormal NONE SEEN [facility] Comment on above: Performed By: #### C MIKKI, LIVER #### [facility] [address] [place] [address] Dr. Agueda Wiley Nitrite Ql (U) Negative Normal NEGATIVE [facility] Comment on above: Performed By: #### C MIKKI, LIVER #### [facility] [address] [place] [address] Dr. Agueda Wiley pH (U) 5.0 [pH] Normal 5-9 [facility] Comment on above: Performed By: #### C MIKKI, LIVER #### [facility] [address] [place] [address] Dr. Agueda Wiley RBC 2-5 Abnormal 0-2 [facility] Comment on above: Performed By: #### C MIKKI, LIVER #### [facility] [address] [place] [address] Dr. Agueda Wiley SPEC GRAVITY >=1.030 Abnormal 1.005-<=1.[address] [facility] Comment on above: Performed By: #### C MIKKI, LIVER #### [facility] [address] [place] [address] Dr. Agueda Wiley UA PROTEIN 100 mg/dl Abnormal NEGATIVE/ TRACE [facility] Comment on above: Performed By: #### C MIKKI, LIVER #### [facility] [address] [place] [address] Dr. Agueda Wiley Urobilinogen Qn (U) 1.0 {Charlotte'U}/dL Normal 0.2 - 1. 0 [facility] Comment on above: Performed By: #### C MIKKI, LIVER #### [facility] [address] [place] [address] Dr. Agueda Wiley WBC 0-2 Abnormal NONE SEEN [facility] Comment on above: Performed By: #### C MIKKI, LIVER #### [facility] [address] [place] [address] Dr. Agueda Wiley CBC AUTO DIFFon 11-27-2022 BASO # 0.0 103/ul Normal 0.0-0.1 [facility] Comment on above: Performed By: #### C IMKKI, LIVER #### [facility] [address] [place] [address] Dr. Agueda Wiley Basophils/100 WBC (Bld) 0.3 % Normal 0.2-2.0 [facility] Comment on above: Performed By: #### C MIKKI, LIVER #### [facility] [address] [place] [address] Dr. Agueda Wiley EO # 0.1 103/ul Normal 0.0-0.7 [facility] Comment on above: Performed By: #### C MIKKI, LIVER #### [facility] [address] [place] [address] Dr. Agueda Wiley Eosinophils/100 WBC (Bld) 0.9 % Normal 0.9-7.0 [facility] Comment on above: Performed By: #### C MIKKI, LIVER #### [facility] [address] [place] [address] Dr. Agueda Wiley Erythrocyte distribution width (RBC) [Ratio] 15.8 % Critically high 11.0-15.0 [facility] Comment on above: Performed By: #### C MIKKI, LIVER #### [facility] [address] [place] [address] Dr. Agueda Wiley Hematocrit (Bld) [Volume fraction] 39.6 % Normal 36.0-48.0 [facility] Comment on above: Performed By: #### C MIKKI, LIVER #### [facility] [address] [place] [address] Dr. Agueda Wiley Hemoglobin (Bld) [Mass/Vol] 12.7 g/dL Normal 12.0-16.0 [facility] Comment on above: Performed By: #### C MIKKI, LIVER #### [facility] [address] [place] [address] Dr. Agueda Wiley IG # 0.08 10e3/ul Critically high 0.00-0.03 [facility] Comment on above: Performed By: #### C MIKKI, LIVER #### [facility] [address] [place] [address] Dr. Agueda Wiley IG % 0.6 % Critically high 0.0-0.[address] [facility] Comment on above: Performed By: #### C MIKKI, LIVER #### [facility] [address] [place] [address] Dr. Agueda Wiley LYMPH # 1.2 103/ul Normal 1.2-3.8 [facility] Comment on above: Performed By: #### C MIKKI, LIVER #### [facility] [address] [place] [address] Dr. Agueda Wiley Lymphocytes/100 WBC (Bld) 8.6 % Critically low 20.5-60.0 [facility] Comment on above: Performed By: #### C MIKKI, LIVER #### [facility] [address] [place] [address] Dr. Agueda Wiley MANUAL DIFF REQ NO Normal [facility] Comment on above: Performed By: #### C MIKKI, LIVER #### [facility] [address] [place] [address] Dr. Agueda Wiley MCH (RBC) [Entitic mass] 29.5 pg Normal 26.7-34.0 [facility] Comment on above: Performed By: #### C MIKKI, LIVER #### [facility] [address] [place] [address] Dr. Agueda Wiley MCHC (RBC) [Mass/Vol] 32.1 g/dL Normal 29.9-35.2 [facility] Comment on above: Performed By: #### C MIKKI, LIVER #### [facility] [address] [place] [address] Dr. Agueda Wiley MCV (RBC) [Entitic vol] 92.1 fL Normal 81.0-99.0 [facility] Comment on above: Performed By: #### C MIKKI, LIVER #### [facility] [address] [place] [address] Dr. Agueda Wiley MONO # 0.9 103/ul Critically high 0.3-0.[address] [facility] Comment on above: Performed By: #### C MIKKI, LIVER #### [facility] [address] [place] [address] Dr. Agueda Wiley Monocytes/100 WBC (Bld) 7.0 % Normal 1.7-12.0 [facility] Comment on above: Performed By: #### C MIKKI, LIVER #### [facility] [address] [place] [address] Dr. Agueda Wiley NEUT # 11.1 103/ul Critically high 1.4-6.5 [facility] Comment on above: Performed By: #### Gila KAYE, LIVER #### [facility] [address] [place] [address] Dr. Agueda Wiley Neutrophils/100 WBC (Bld) 82.6 % Critically high 43.0-75.0 [facility] Comment on above: Performed By: #### Gila KAYE, LIVER #### [facility] [address] [place] [address] Dr. Agueda Wiley Platelet mean volume (Bld) [Entitic vol] 11.3 fL Normal 9.5-13.5 [facility] Comment on above: Performed By: #### C MKIKI, LIVER #### [facility] [address] [place] [address] Dr. Agueda Wiley PLT 245 103/ul Normal 150-450 [facility] Comment on above: Performed By: #### Gila KAYE, LIVER #### [facility] [address] [address] [address] Agueda Wiley RBC 4.30 106/ul Normal 4.20-5.40 [facility] Comment on above: Performed By: #### C MIKKI, LIVER #### [facility] [address] [address] [address] Agueda Wiley WBC 13.5 103/ul Critically high 4.0-11.0 [facility] Comment on above: Performed By: #### C MIKKI, LIVER #### [facility] [address] [place] [address] Dr. Agueda Wiley CREATININEon 11-27-2022 Creatinine [Mass/Vol] 1.13 mg/dL Critically high 0.55-1.02 [facility] Comment on above: Performed By: #### C MIKKI, LIVER #### [facility] [address] [place] [address] Dr. Agueda Wiley EGFR-AF PANAMANIAN 58 mL/min/1.73m2 Critically low >=60 [facility] Comment on above: Performed By: #### C MIKKI, LIVER #### [facility] [address] [place] [address] Dr. Agueda Wiley EGFR-NON AF PANAMANIAN 48 mL/min/1.73m2 Critically low >=60 [facility] Comment on above: Performed By: #### C MIKKI, LIVER #### [facility] [address] [place] [address] Dr. Agueda Wiley LIVER PROFILEon 11-27-2022 Albumin [Mass/Vol] 3.4 g/dL Normal 3.4-5.0 [facility] Comment on above: Performed By: #### C MIKKI, LIVER #### [facility] [address] [place] [address] Dr. Agueda Wiley Albumin/Globulin [Mass ratio] 1.0 {ratio} Normal [facility] Comment on above: Performed By: #### C MIKKI, LIVER #### [facility] [address] [address] [address] Agueda Wiley ALP [Catalytic activity/Vol] 67 U/L Normal 46-116 [facility] Comment on above: Performed By: #### C MIKKI, LIVER #### [facility] [address] [address] [address] Agueda Wiley ALT [Catalytic activity/Vol] 37 U/L Normal 14-59 [facility] Comment on above: Performed By: #### C MIKKI, LIVER #### [facility] [address] [address] [address] Agueda Wiley AST [Catalytic activity/Vol] 20 U/L Normal 15-37 [facility] Comment on above: Performed By: #### C MIKKI, LIVER #### [facility] [address] [place] [address] Dr. Agueda Wiley BILI, CONJUGATED 0.1 mg/dL Normal 0.0-0.2 [facility] Comment on above: Performed By: #### C MIKKI, LIVER #### [facility] [address] [place] [address] Dr. Agueda Wiley Bilirubin [Mass/Vol] 0.4 mg/dL Normal 0.2-1.0 [facility] Comment on above: Performed By: #### C MIKKI, LIVER #### [facility] [address] [place] [address] Dr. Agueda Wiley Globulin (S) [Mass/Vol] 3.4 g/dL Normal [facility] Comment on above: Performed By: #### C MIKKI, LIVER #### [facility] [address] [place] [address] Dr. Agueda Wiley Protein [Mass/Vol] 6.8 g/dL Normal 6.4-8.2 [facility] Comment on above: Performed By: #### C MIKKI, LIVER #### [facility] [address] [place] [address] Dr. Agueda Wiley SED RATE WESTERGRENon 2022 SED RATE 17 mm/hr Normal <=30 [facility] Comment on above: Performed By: #### C MIKKI, LIVER #### [facility] [address] [place] [address] Dr. Agueda Wiley CBC AUTO DIFFon 10-05-2022 BASO # 0.0 103/ul Normal 0.0-0.1 [facility] Comment on above: Performed By: #### C MIKKI, LIVER #### [facility] [address] [place] [address] Dr. Agueda Wiley Basophils/100 WBC (Bld) 0.3 % Normal 0.2-2.0 [facility] Comment on above: Performed By: #### C MIKKI, LIVER #### [facility] [address] [place] [address] Dr. Agueda Wiley EO # 0.1 103/ul Normal 0.0-0.7 [facility] Comment on above: Performed By: #### Gila KAYE, LIVER #### [facility] [address] [place] [address] Dr. Agueda Wiley Eosinophils/100 WBC (Bld) 0.6 % Critically low 0.9-7.0 [facility] Comment on above: Performed By: #### Gila KAYE, LIVER #### [facility] [address] [place] [address] Dr. Agueda Wiley Erythrocyte distribution width (RBC) [Ratio] 14.0 % Normal 11.0-15.0 [facility] Comment on above: Performed By: #### Gila KAYE, LIVER #### [facility] [address] [place] [address] Dr. Agueda Wiley Hematocrit (Bld) [Volume fraction] 38.5 % Normal 36.0-48.0 [facility] Comment on above: Performed By: #### Gila KAYE, LIVER #### [facility] [address] [place] [address] Dr. Agueda Wiley Hemoglobin (Bld) [Mass/Vol] 13.3 g/dL Normal 12.0-16.0 [facility] Comment on above: Performed By: #### Gila KAYE, LIVER #### [facility] [address] [place] [address] Dr. Agueda Wiley IG # 0.03 10e3/ul Normal 0.00-0.03 [facility] Comment on above: Performed By: #### C MIKKI, LIVER #### [facility] [address] [address] [address] Agueda Wiley IG % 0.3 % Normal 0.0-0.5 [facility] Comment on above: Performed By: #### C MIKKI, LIVER #### [facility] [address] [address] [address] Agueda Wiley LYMPH # 1.2 103/ul Normal 1.2-3.8 [facility] Comment on above: Performed By: #### C MIKKI, LIVER #### [facility] [address] [place] [address] Dr. Agueda Wiley Lymphocytes/100 WBC (Bld) 10.3 % Critically low 20.5-60.0 [facility] Comment on above: Performed By: #### C MIKKI, LIVER #### [facility] [address] [place] [address] Dr. Agueda Wiley MANUAL DIFF REQ NO Normal [facility] Comment on above: Performed By: #### C MIKKI, LIVER #### [facility] [address] [place] [address] Dr. Agueda Wiley MCH (RBC) [Entitic mass] 29.1 pg Normal 26.7-34.0 [facility] Comment on above: Performed By: #### C MIKKI, LIVER #### [facility] [address] [place] [address] Dr. Agueda Wiley MCHC (RBC) [Mass/Vol] 34.5 g/dL Normal 29.9-35.2 [facility] Comment on above: Performed By: #### C MIKKI, LIVER #### [facility] [address] [place] [address] Dr. Agueda Wiley MCV (RBC) [Entitic vol] 84.2 fL Normal 81.0-99.0 [facility] Comment on above: Performed By: #### C MIKKI, LIVER #### [facility] [address] [place] [address] Dr. Agueda Wiley MONO # 0.6 103/ul Normal 0.3-0.8 [facility] Comment on above: Performed By: #### C MIKKI, LIVER #### [facility] [address] [address] [address] Agueda Wiley Monocytes/100 WBC (Bld) 5.0 % Normal 1.7-12.0 [facility] Comment on above: Performed By: #### C MIKKI, LIVER #### [facility] [address] [place] [address] Dr. Agueda Wiley NEUT # 9.9 103/ul Critically high 1.4-6.5 [facility] Comment on above: Performed By: #### C MIKKI, LIVER #### [facility] [address] [address] [address] Agueda Wiley Neutrophils/100 WBC (Bld) 83.5 % Critically high 43.0-75.0 [facility] Comment on above: Performed By: #### C MIKKI, LIVER #### [facility] [address] [place] [address] Dr. Agueda Wiley Platelet mean volume (Bld) [Entitic vol] 10.8 fL Normal 9.5-13.5 [facility] Comment on above: Performed By: #### C MIKKI, LIVER #### [facility] [address] [place] [address] Dr. Agueda Wiley PLT 265 103/ul Normal 150-450 [facility] Comment on above: Performed By: #### C MIKKI, LIVER #### [facility] [address] [place] [address] Dr. Agueda Wiley RBC 4.57 106/ul Normal 4.20-5.40 [facility] Comment on above: Performed By: #### C MIKKI, LIVER #### [facility] [address] [place] [address] Dr. Agueda Wiley WBC 11.9 103/ul Critically high 4.0-11.0 [facility] Comment on above: Performed By: #### C MIKKI, LIVER #### [facility] [address] [place] [address] Dr. Agueda Wiley CREATININEon 10-05-2022 Creatinine [Mass/Vol] 0.92 mg/dL Normal 0.55-1.02 [facility] Comment on above: Performed By: #### C MIKKI, LIVER #### [facility] [address] [place] [address] Dr. Agueda Wiley EGFR-AF PANAMANIAN >60 Normal >=60 [facility] Comment on above: Performed By: #### C MIKKI, LIVER #### [facility] [address] [place], [place] [id number] Dr. Agueda Wiley EGFR-NON AF PANAMANIAN >60 Normal >=60 [facility] Comment on above: Performed By: #### C MIKKI, LIVER #### [facility] [address] [place] [address] Dr. Agueda Wiley LIVER PROFILEon 10-05-2022 Albumin [Mass/Vol] 3.4 g/dL Normal 3.4-5.0 [facility] Comment on above: Performed By: #### C MIKKI, LIVER #### [facility] [address] [place] [address] Dr. Agueda Wiley Albumin/Globulin [Mass ratio] 1.0 {ratio} Normal [facility] Comment on above: Performed By: #### C MIKKI, LIVER #### [facility] [address] [place] [address] Dr. Agueda Wiley ALP [Catalytic activity/Vol] 90 U/L Normal 46-116 [facility] Comment on above: Performed By: #### C MIKKI, LIVER #### [facility] [address] [place] [address] Dr. Agueda Wiley ALT [Catalytic activity/Vol] 35 U/L Normal 14-59 [facility] Comment on above: Performed By: #### C MIKKI, LIVER #### [facility] [address] [place] [address] Dr. Agueda Wiley AST [Catalytic activity/Vol] 21 U/L Normal 15-37 [facility] Comment on above: Performed By: #### C MIKKI, LIVER #### [facility] [address] [place] [address] Dr. Agueda Wiley BILI, CONJUGATED 0.1 mg/dL Normal 0.0-0.2 [facility] Comment on above: Performed By: #### C MIKKI, LIVER #### [facility] [address] [address] [address] Agueda Wiley Bilirubin [Mass/Vol] 0.6 mg/dL Normal 0.2-1.0 [facility] Comment on above: Performed By: #### C MIKKI, LIVER #### [facility] [address] [place] [address] Dr. Agueda Wiley Globulin (S) [Mass/Vol] 3.5 g/dL Normal [facility] Comment on above: Performed By: #### C MIKKI, LIVER #### [facility] [address] [place] [address] Dr. Agueda Wiley Protein [Mass/Vol] 6.9 g/dL Normal 6.4-8.2 [facility] Comment on above: Performed By: #### C MIKKI, LIVER #### [facility] [address] [place] [address] Dr. Agueda Wiley SED RATE [facility] 2022 SED RATE 27 mm/hr Normal <=30 [facility] Comment on above: Performed By: #### C MIKKI, LIVER #### [facility] [address] [place] [address] Dr. Agueda Wiley XR hand RT min 3V*on 023 XR hand RT min 3V* [facility] [employer] Other XR hand RT min 3V* [facility] [employer] Other XR hand RT min 3V* [address] [place] [address] [employer] Other XR hand RT min 3V* [place] [address] [email or web address] [facility] [employer] Other XR hand RT min 3V* XRay Report [employer] [facility] [employer] Other XR hand RT min 3V* Signed [email or web address] [facility] [employer] Other XR hand RT min 3V* Patient: Reba Gregory MR#: [id number] [employer] Other XR hand RT min 3V* : 1955 Acct:[id number] [employer] Other XR hand RT min 3V* Age/Sex: 66 / F ADM Date: 09/23/22 [employer] Other XR hand RT min 3V* Loc: [facility] Room: Type: [facility] [employer] Other XR hand RT min 3V* Attending Dr: Kiana Munson MD [employer] Other XR hand RT min 3V* Copies to: Kiana Munson MD [employer] Other XR hand RT min 3V* Ordering Provider: Kiana Munson MD [employer] Other XR hand RT min 3V* Date of Service: 09/23/22 [employer] Other XR hand RT min 3V* XR/XR hand RT min 3V*: Lesion of finger [employer] Other XR hand RT min 3V* RIGHT HAND - 4 views [employer] Other XR hand RT min 3V* REASON FOR EXAM: Right fourth digit ischemia for one month. Mass on top of right fourth digit. [employer] Other XR hand RT min 3V* COMPARISON: None [employer] Other XR hand RT min 3V* FINDINGS: [employer] Other XR hand RT min 3V* No focal soft tissue abnormality is seen. No radiopaque foreign body. No acute bony process is [employer] Other XR hand RT min 3V* noted. Mild degenerative changes involving the CMC joint of the thumb. No bony erosions are noted. [employer] Other XR hand RT min 3V* XR/XR hand RT min 3V* [employer] Other XR hand RT min 3V* IMPRESSION: [employer] Other XR hand RT min 3V* MILD DEGENERATIVE CHANGES WITHOUT ACUTE BONY PROCESS. [employer] Other XR hand RT min 3V* Impression dictated by: Dave Espana Jr., D.O.09/23/2022 4:30 PM [facility] [employer] Other XR hand RT min 3V* Dictation Location: [place] [address] [employer] Other XR hand RT min 3V* Transcribed By: PWS 09/23/22 1630 [employer] Other XR hand RT min 3V* Dictated By: Dave Espana Jr DO 09/23/22 1629 [employer] Other XR hand RT min 3V* Signed By: [employer] Other XR hand RT min 3V* 09/23/[address] [facility] [employer] Other Creatinine (Bld) [Mass/Vol]O rdered By: George Ryan on 09-08-2022 Creatinine [Mass/Vol] 0.9 mg/dL 0.6-1.3 [facility] Comment on above: ER/ESD physician is notified/shown all ISTAT results.Critical values may be confirmed by laboratory testing ifdeemed necessary by ER attending doctor. No Panel InformationOrdered By: George Ryan on 09-08-2022 POC Estimated GFR > 60 [facility] Comment on above: GFR estimated refere nce range: According to KDOQI guidelines, <60 ml/min/1.73m2 is sufficient to diagnose a patient with chronic kidney disease. POC Estimated GFR Non- Amer > 60 [facility] LUPUS ANTICOAGULANT PROFILEo n 09-04-2022 Anticardiolipin Ab, IgG <10 Normal [facility] Comment on above: Result Comment: Refe rence Range: Negative: <15 Indeterminate: 15 - 20 Low to medium positive: >20 - 80 High positive: >80 Performed By: #### C MIKKI, LIVER #### [facility] [address] [address] [address] Agueda Wiley Anticardiolipin Ab, IgM 34 MPL Critically high [facility] Comment on above: Result Comment: Refe rence Range: Negative: <13 Indeterminate: 13 - 20 Low to medium positive: >20 - 80 High positive: >80 Performed By: #### C MIKKI, LIVER #### [facility] [address] [address] [address] Agueda Wiley APTT 1:1 BALLISTICIAN NIY [facility] Comment on above: Result Comment: Test ing Not Indicated This test was developed and its performance characteristics determined by [facility]. It has not been cleared or approved by the [place] Food and Drug Administration. Performed By: #### C MIKKI, LIVER #### [facility] [address] [place] [address] Dr. Agueda Wiley APTT 1:1 Saline NIY Normal [facility] Comment on above: Result Comment: Test ing Not Indicated This test was developed and its performance characteristics determined by [facility]. It has not been cleared or approved by the [place] Food and Drug Administration. Performed By: #### C MIKKI, LIVER #### [facility] [address] [place] [address] Dr. Agueda Wiley aPTT Coag (Bld) [Time] 23.9 s Normal [facility] Comment on above: Result Comment: This test has not been validated for monitoring unfractionated heparin therapy. aPTT-based therapeutic ranges for unfractionated heparin therapy have not been established. Consider ordering Heparin anti-Xa (unfractionated). Reference Range: 18 years and older: 22.9 - 30.2 Performed By: #### C MIKKI, LIVER #### [facility] [address] [place] [address] Dr. Agueda Wiley Beta-2 Glycoprotein I, IgA <10 Normal [facility] Comment on above: Result Comment: The reference interval reflects a 3SD or 99th percentile interval. Reference Range: Negative: <26 Performed By: #### C MIKKI, LIVER #### [facility] [address] [place] [address] Dr. Agueda Wiley Beta-2 Glycoprotein I, IgG <10 Normal [facility] Comment on above: Result Comment: The reference interval reflects a 3SD or 99th percentile interval. Reference Range: Negative: <21 Performed By: #### C MIKKI, LIVER #### [facility] [address] [place] [address] Dr. Agueda Wiley Beta-2 Glycoprotein I, IgM <10 Normal [facility] Comment on above: Result Comment: The reference interval reflects a 3SD or 99th percentile interval. Reference Range: Negative: <33 Performed By: #### C MIKKI, LIVER #### [facility] [address] [place] [address] Dr. Agueda Wiley DRVVT Confirm Seconds NIY Normal [facility] Comment on above: Result Comment: Test ing Not Indicated Performed By: #### C MIKKI, LIVER #### [facility] [address] [place] [address] Dr. Agueda Wiley DRVVT Ratio NIY Normal [facility] Comment on above: Result Comment: Test ing Not Indicated Performed By: #### C MIKKI, LIVER #### [facility] [address] [place] [address] Dr. Agueda Wiley DRVVT Screen Seconds 39.3 sec Normal [facility] Comment on above: Result Comment: Refe rence Range: <= 47.0 Performed By: #### C MIKKI, LIVER #### [facility] [address] [place] [address] Dr. Agueda Wiley Hexagonal Phospholipid Neutral 1 sec Normal [facility] Comment on above: Result Comment: This value is NEGATIVE. This is a qualitative assay and is therefore reported as positive for lupus anticoagulant or negative. The quantitative value is provided as an aid in diagnosis. Reference Range: 0 - 11 Performed By: #### C MIKKI, LIVER #### [facility] [address] [place] [address] Dr. Agueda Wiley INR Coag (PPP) [Relative time] 1.0 {INR} Normal [facility] Comment on above: Result Comment: Refe rence Range: >1 month: 0.9 - 1.2 Performed By: #### C MIKKI, LIVER #### [facility] [address] [address] [address] Agueda Wiley LAC Interpretation Comment Normal [facility] Comment on above: Result Comment: A [...] repeat testing may be indicated. Please contact [facility]CM[facility]GL if further clarification is needed. Performed By: #### C MIKKI LIVER #### [facility] [address] [place] [address] Dr. Agueda Wiley Platelet Neutralization 0.0 sec Normal [facility] Comment on above: Result Comment: Refe rence Range: 0.0 - 3.0 This test was developed and its performance characteristics determined by [employer]. It has not been cleared or approved by the Food and Drug Administration. Performed By: #### C MIKKI LIVER #### [facility] [address] [place] [address] Dr. Agueda Wiley PT Coag (PPP) [Time] 10.6 s Normal [facility] Comment on above: Result Comment: Refe rence Range: 18 years and older: 9.1 - 12.0 Performed By: #### C MIKKI LIVER #### [facility] [address] [place] [address] Dr. Agueda Wiley Thrombin Time 17.2 sec Normal [facility] Comment on above: Result Comment: Refe rence Range: 0.0 - 23.0 Performed By: #### C MIKKI LIVER #### [facility] [address] [place] [address] Dr. Agueda Wiley VAL by IFAon 09-03-2022 Antinuclear Antibodies, IFA Positive Abnormal [facility] Comment on above: Result Comment: Nega tive <1:80 Borderline 1:80 Positive >1:80 Performed By: #### A NAIFA #### [facility] [address] [address] [address] Agueda Wiley Centriole Pattern Normal [facility] Comment on above: Performed By: #### A NAIFA #### [facility] [address] [address] [address] Agueda Wiley Centromere Pattern Normal [facility] Comment on above: Performed By: #### A NAIFA #### [facility] [address] [address] [address] Agueda Wiley Homogeneous Pattern 1:320 Critically high [facility] Comment on above: Result Comment: ICAP nomenclature: AC-1 Performed By: #### A NAIFA #### [facility] [address] [address] [address] Agueda Wiley Midbody Pattern Normal The [facility] Comment on above: Performed By: #### A NAIFA #### [facility] [address] [place] [address] Dr. Agueda Wiley Note: Comment Normal [facility] Comment on above: Result Comment: For [...] titers Nucleosomes, Histones Drug-induced SLE Speckled Sm, ASSISTANT PROFESSOR OF EDUCATION, SCL-70, SLE,MCTD,PSS (diffuse form), SS-A/SS-B Sjogrens Nucleolar SCL-70, PM-1/SCL High titers Scleroderma, PM/DM Centromere Centromere PSS (limited form) w/Crest syndrome variable Nuclear Dot [id number] Primary Biliary Cirrhosis Nuclear GP210, Primary Biliary Cirrhosis Membrane hank A,B,C Performed By: #### A NAJOSEA #### [facility] [address] [address] [address] Agueda Wiley Nuclear Dot Pattern Normal [facility] Comment on above: Performed By: #### A NAIFA #### [facility] [address] [address] [address] Agueda Wiley Nuclear Membrane Pattern Normal [facility] Comment on above: Performed By: #### A NAIFA #### [facility] [address] [address] [address] Agueda Wiley Nucleolar Pattern Normal [facility] Comment on above: Performed By: #### A NAIFA #### [facility] [address] [place] [address] Dr. Agueda Wiley PCNA Pattern Normal [facility] Comment on above: Performed By: #### A NAIFA #### [facility] [address] [place] [address] Dr. Agueda Wiley Speckled Pattern Normal [facility] Comment on above: Performed By: #### A NAIFA #### [facility] [address] [place] [address] Dr. Agueda Wiley Spindle Apparatus Pattern Normal [facility] Comment on above: Performed By: #### A NAIFA #### [facility] [address] [place] [address] Dr. Agueda Wiley ANTI-DNA DS ABon 09-01-2022 Anti-DNA (DS) Ab Qn 1 IU/mL Normal 0-9 [facility] Comment on above: Result Comment: Nega tive <5 Equivocal 5 - 9 Positive >9 Performed By: #### C MIKKI, LIVER #### [facility] [address] [place] [address] Dr. Agueda Wiley ANTICHROMATIN ANTIBODIESon 1 11-02-2021 Antichromatin Antibodies <0.2 Normal 0.0-0.9 [facility] Comment on above: Performed By: #### C MIKKI, LIVER #### [facility] [address] [place] [address] Dr. Agueda Wiley C3 and C4 COMPLEMENTon 09-01 Complement C3, Serum 79 mg/dL Critically low 82-167 [facility] Comment on above: Performed By: #### C MIKKI, LIVER #### [facility] [address] [place] [address] Dr. Agueda Wiley Complement C4, Serum 18 mg/dL Normal 12-38 [facility] Comment on above: Performed By: #### C MIKKI, LIVER #### [facility] [address] [place] [address] Dr. Agueda Wiley COMPLEMENT TOTAL (CH50)on Complement, Total (CH50) >60 Normal >41 [facility] Comment on above: Result Comment: Age [...] values. Performed By: #### C SUITE #### [facility] [address] [place] [address] Dr. Agueda Wiley ASSISTANT PROFESSOR OF EDUCATION ANTIBODIESon 09-01-2022 ASSISTANT PROFESSOR OF EDUCATION Antibodies 0.2 AI Normal 0.0-0.9 [facility] Comment on above: Performed By: #### R NPAB #### [facility] [address] [place] [address] Dr. Agueda Wiley SJOGRENS ANTIBODIES (Anti SS A/B)on 09-01-2022 Sjogren's Anti-SS-A <0.2 Normal 0.0-0.9 [facility] Comment on above: Performed By: #### C SUITE #### [facility] [address] [address] [address] Agueda Wiley Sjogren's Anti-SS-B <0.2 Normal 0.0-0.9 [facility] Comment on above: Performed By: #### C SUITE #### [facility] [address] [address] [address] Agueda Wiley RAMOS ANTIBODIESon Ramos Antibodies 1.0 AI Critically high 0.0-0.9 [facility] Comment on above: Performed By: #### R NPAB #### [facility] [address] [place] [address] Dr. Agueda Wiley CBC AUTO DIFFon 08-31-2022 BASO # 0.1 103/ul Normal 0.0-0.1 [facility] Comment on above: Performed By: #### R NPAB #### [facility] [address] [address] [address] Agueda Wiley Basophils/100 WBC (Bld) 0.7 % Normal 0.2-2.0 [facility] Comment on above: Performed By: #### R NPAB #### [facility] [address] [address] [address] Agueda Wiley EO # 0.4 103/ul Normal 0.0-0.7 [facility] Comment on above: Performed By: #### R NPAB #### [facility] [address] [address] [address] Agueda Wiley Eosinophils/100 WBC (Bld) 6.1 % Normal 0.9-7.0 [facility] Comment on above: Performed By: #### R NPAB #### [facility] [address] [place] [address] Dr. Agueda Wiley Erythrocyte distribution width (RBC) [Ratio] 13.6 % Normal 11.0-15.0 [facility] Comment on above: Performed By: #### R NPAB #### [facility] [address] [address] [address] Agueda Wiley Hematocrit (Bld) [Volume fraction] 40.4 % Normal 36.0-48.0 [facility] Comment on above: Performed By: #### R NPAB #### [facility] [address] [place] [address] Dr. Agueda Wiley Hemoglobin (Bld) [Mass/Vol] 12.9 g/dL Normal 12.0-16.0 [facility] Comment on above: Performed By: #### R NPAB #### [facility] [address] [address] [address] Agueda Wiley IG # 0.04 10e3/ul Critically high 0.00-0.03 [facility] Comment on above: Performed By: #### R NPAB #### [facility] [address] [address] [address] Agueda Wiley IG % 0.6 % Critically high 0.0-0.[address] [facility] Comment on above: Performed By: #### R NPAB #### [facility] [address] [address] [address] Agueda Wiley LYMPH # 1.4 103/ul Normal 1.2-3.8 [facility] Comment on above: Performed By: #### R NPAB #### [facility] [address] [address] [address] Agueda Wiley Lymphocytes/100 WBC (Bld) 20.6 % Normal 20.5-60.0 [facility] Comment on above: Performed By: #### R NPAB #### [facility] [address] [address] [address] Agueda Wiley MANUAL DIFF REQ NO Normal [facility] Comment on above: Performed By: #### R NPAB #### [facility] [address] [place] [address] Dr. Agueda Wiley MCH (RBC) [Entitic mass] 29.0 pg Normal 26.7-34.0 [facility] Comment on above: Performed By: #### R NPAB #### [facility] [address] [place] [address] Dr. Agueda Wiley MCHC (RBC) [Mass/Vol] 31.9 g/dL Normal 29.9-35.2 [facility] Comment on above: Performed By: #### R NPAB #### [facility] [address] [place] [address] Dr. Agueda Wiley MCV (RBC) [Entitic vol] 90.8 fL Normal 81.0-99.0 [facility] Comment on above: Performed By: #### R NPAB #### [facility] [address] [place] [address] Dr. Agueda Wiley MONO # 0.8 103/ul Normal 0.3-0.8 [facility] Comment on above: Performed By: #### R NPAB #### [facility] [address] [place] [address] Dr. Agueda Wiley Monocytes/100 WBC (Bld) 10.9 % Normal 1.7-12.0 [facility] Comment on above: Performed By: #### R NPAB #### [facility] [address] [place] [address] Dr. Agueda Wiley NEUT # 4.2 103/ul Normal 1.4-6.5 [facility] Comment on above: Performed By: #### R NPAB #### [facility] [address] [place] [address] Dr. Agueda iWley Neutrophils/100 WBC (Bld) 61.1 % Normal 43.0-75.0 [facility] Comment on above: Performed By: #### R NPAB #### [facility] [address] [place] [address] Dr. Agueda iWley Platelet mean volume (Bld) [Entitic vol] 10.9 fL Normal 9.5-13.5 [facility] Comment on above: Performed By: #### R NPAB #### [facility] [address] [place] [address] Dr. Agueda Wiley PLT 324 103/ul Normal 150-450 [facility] Comment on above: Performed By: #### R NPAB #### [facility] [address] [place] [address] Dr. Agueda Wiley RBC 4.45 106/ul Normal 4.20-5.40 [facility] Comment on above: Performed By: #### R NPAB #### [facility] [address] [place] [address] Dr. Agueda Wiley WBC 6.9 103/ul Normal 4.0-11.0 [facility] Comment on above: Performed By: #### R NPAB #### [facility] [address] [place] [address] Dr. Agueda Wiley CREATININEon 08-31-2022 Creatinine [Mass/Vol] 1.00 mg/dL Normal 0.55-1.02 [facility] Comment on above: Performed By: #### A NAIFA #### [facility] [address] [place] [address] Dr. Agueda Wiley EGFR-AF PANAMANIAN >60 Normal >=60 [facility] Comment on above: Performed By: #### A NAIFA #### [facility] [address] [address] [address] Agueda Wiley EGFR-NON AF PANAMANIAN 55 mL/min/1.73m2 Critically low >=60 [facility] Comment on above: Performed By: #### A NAIFA #### [facility] [address] [place] [address] Dr. Agueda Wiley CRPon 08-31-2022 CRP 0.8 mg/dL Normal <=1.0 [facility] Comment on above: Performed By: #### C MIKKI, LIVER #### [facility] [facility] [address] [address] [address] Agueda Wiley [facility] SED RATE 85 mm/hr Critically high <=[address] [facility] Comment on above: Performed By: #### C MIKKI, LIVER #### [facility] [address] [place] [address] Dr. Agueda Wiley STOOL CULTUREon 08-18-2022 Campylobacter Culture Final report Normal [facility] Comment on above: Performed By: #### C MIKKI, LIVER #### [facility] [address] [place] [address] Dr. Agueda Wiley E coli Shiga Toxin EIA Negative Normal Negative [facility] Comment on above: Performed By: #### C MIKKI, LIVER #### [facility] [address] [place] [address] Dr. Agueda Wiley Result 1 Comment Normal [facility] Comment on above: Result Comment: No S almonella or Shigella recovered. Performed By: #### C MIKKI, LIVER #### [facility] [address] [place] [address] Dr. Agueda Wiley Result Comment: No C ampylobacter species isolated. Salmonella/Shigella Screen Final report Normal [facility] Comment on above: Performed By: #### C MIKKI, LIVER #### [facility] [address] [place] [address] Dr. Agueda Wiley C. DIFF PCRon 08-14-2022 C. DIFFICILE PCR Positive Critically abnormal NEGATIVE [facility] Comment on above: Performed By: #### R NPAB #### [facility] [address] [place] [address] Dr. Agueda Wiley IMMUNOFIXATION(ERIN),PROTEIN ELEC(PE),LONon 08-14-2022 Albumin [Mass/Vol] 3.8 g/dL Normal 2.9-4.4 [facility] Comment on above: Performed By: #### A NAIFA #### [facility] [address] [place] [address] Dr. Agueda Wiley Albumin/Globulin [Mass ratio] 1.3 {ratio} Normal 0.7-1.7 [facility] Comment on above: Performed By: #### A NAIFA #### [facility] [address] [place] [address] Dr. Agueda Wiley Ascfn-5-Ahytdoki 0.3 g/dL Normal 0.0-0.4 [facility] Comment on above: Performed By: #### A NAIFA #### [facility] [address] [place] [address] Dr. Agueda Wiley Qeqyu-8-Wotmqswo 0.9 g/dL Normal 0.4-1.0 [facility] Comment on above: Performed By: #### A NAIFA #### [facility] [address] [place] [address] Dr. Agueda Wiley Beta Globulin 1.0 g/dL Normal 0.7-1.3 [facility] Comment on above: Performed By: #### A NAIFA #### [facility] [address] [place] [address] Dr. Agueda Wiley Free Safford Lt Chains,S 28.5 mg/L Critically high 3.3-19.4 [facility] Comment on above: Performed By: #### A NAIFA #### [facility] [address] [place] [address] Dr. Agueda Wiley Free Lambda Lt Chains,S 16.7 mg/L Normal 5.7-26.3 [facility] Comment on above: Performed By: #### A NAIFA #### [facility] [address] [place] [address] Dr. Agueda Wiley Gamma Globulin 0.8 g/dL Normal 0.4-1.8 [facility] Comment on above: Performed By: #### A NAIFA #### [facility] [address] [place] [address] Dr. Agueda Wiley Globulin (S) [Mass/Vol] 3.0 g/dL Normal 2.2-3.9 [facility] Comment on above: Performed By: #### A NAIFA #### [facility] [address] [place] [address] Dr. Agueda Wiley Immunofixation Result, Serum Comment Normal [facility] Comment on above: Result Comment: No m onoclonality detected. Performed By: #### A NAIFA #### [facility] [address] [place] [address] Dr. Agueda Wiley Immunoglobulin A, Qn, Serum 179 mg/dL Normal 87-352 [facility] Comment on above: Performed By: #### A NAIFA #### [facility] [address] [place] [address] Dr. Agueda Wiley Immunoglobulin G, Qn, Serum 902 mg/dL Normal 586-1602 [facility] Comment on above: Performed By: #### A NAIFA #### [facility] [address] [place] [address] Dr. Agueda Wiley Immunoglobulin M, Qn, Serum 81 mg/dL Normal 26-217 [facility] Comment on above: Performed By: #### A NAIFA #### [facility] [address] [place] [address] Dr. Agueda Wiley Safford/Lambda Ratio, S 1.71 Critically high 0.26-1.65 [facility] Comment on above: Performed By: #### A NAIFA #### [facility] [address] [place] [address] Dr. Agueda Wiley M-Richard Not Observed Normal Not Observed [facility] Comment on above: Performed By: #### A NAIFA #### [facility] [address] [place] [address] Dr. Agueda Wiley PDF . Normal [facility] Comment on above: Performed By: #### A NAIFA #### [facility] [address] [place] [address] Dr. Agueda Wiley Please note: Comment Normal [facility] Comment on above: Result Comment: Prot ein electrophoresis scan will follow via computer, mail, or seed cleaner delivery. Performed By: #### A NAIFA #### [facility] [address] [place] [address] Dr. Agueda Wiley Protein [Mass/Vol] 6.8 g/dL Normal 6.0-8.5 [facility] Comment on above: Performed By: #### A NAIFA #### [facility] [address] [place] [address] Dr. Agueda Wiley IMMUNOGLOBULINS IGA/IGM/IGG QUANTITATIVEon 08-14-2022 Immunoglobulin A, Qn, Serum 182 mg/dL Normal 87-352 [facility] Comment on above: Performed By: #### C MIKKI, LIVER #### [facility] [address] [place] [address] Dr. Agueda Wiley Immunoglobulin G, Qn, Serum 923 mg/dL Normal 586-1602 [facility] Comment on above: Performed By: #### Gila KAYE, LIVER #### [facility] [address] [place] [address] Dr. Agueda Wiley Immunoglobulin M, Qn, Serum 82 mg/dL Normal 26-217 [facility] Comment on above: Performed By: #### Gila KAYE, LIVER #### [facility] [address] [place] [address] Dr. Agueda Wiley CBC AUTO DIFFon 08-13-2022 BASO # 0.0 103/ul Normal 0.0-0.1 [facility] Comment on above: Performed By: #### R NPAB #### [facility] [address] [place] [address] Dr. Agueda Wiley Basophils/100 WBC (Bld) 0.4 % Normal 0.2-2.0 [facility] Comment on above: Performed By: #### R NPAB #### [facility] [address] [place] [address] Dr. Agueda Wiley EO # 0.2 103/ul Normal 0.0-0.7 [facility] Comment on above: Performed By: #### R NPAB #### [facility] [address] [place] [address] Dr. Agueda Wiley Eosinophils/100 WBC (Bld) 1.9 % Normal 0.9-7.0 [facility] Comment on above: Performed By: #### R NPAB #### [facility] [address] [place] [address] Dr. Agueda Wiley Erythrocyte distribution width (RBC) [Ratio] 13.8 % Normal 11.0-15.0 [facility] Comment on above: Performed By: #### R NPAB #### [facility] [address] [place] [address] Dr. Agueda Wiley Hematocrit (Bld) [Volume fraction] 41.4 % Normal 36.0-48.0 [facility] Comment on above: Performed By: #### R NPAB #### [facility] [address] [place] [address] Dr. Agueda Wiley Hemoglobin (Bld) [Mass/Vol] 13.5 g/dL Normal 12.0-16.0 [facility] Comment on above: Performed By: #### R NPAB #### [facility] [address] [place] [address] Dr. Agueda Wiley IG # 0.02 10e3/ul Normal 0.00-0.03 [facility] Comment on above: Performed By: #### R NPAB #### [facility] [address] [place] [address] Dr. Agueda Wiley IG % 0.2 % Normal 0.0-0.5 [facility] Comment on above: Performed By: #### R NPAB #### [facility] [address] [place] [address] Dr. Agueda Wiley LYMPH # 2.0 103/ul Normal 1.2-3.8 [facility] Comment on above: Performed By: #### R NPAB #### [facility] [address] [place], [place] [id number] Dr. Agueda Wiley Lymphocytes/100 WBC (Bld) 20.5 % Normal 20.5-60.0 [facility] Comment on above: Performed By: #### R NPAB #### [facility] [address] [place] [address] Dr. Agueda Wiley MANUAL DIFF REQ NO Normal [facility] Comment on above: Performed By: #### R NPAB #### [facility] [address] [place] [address] Dr. Agueda Wiley MCH (RBC) [Entitic mass] 29.1 pg Normal 26.7-34.0 [facility] Comment on above: Performed By: #### R NPAB #### [facility] [address] [place] [address] Dr. Agueda Wiley MCHC (RBC) [Mass/Vol] 32.6 g/dL Normal 29.9-35.2 [facility] Comment on above: Performed By: #### R NPAB #### [facility] [address] [place] [address] Dr. Agueda Wiley MCV (RBC) [Entitic vol] 89.2 fL Normal 81.0-99.0 [facility] Comment on above: Performed By: #### R NPAB #### [facility] [address] [place] [address] Dr. Agueda Wiley MONO # 0.8 103/ul Normal 0.3-0.8 [facility] Comment on above: Performed By: #### R NPAB #### [facility] [address] [place] [address] Dr. Agueda Wiley Monocytes/100 WBC (Bld) 8.6 % Normal 1.7-12.0 [facility] Comment on above: Performed By: #### R NPAB #### [facility] [address] [place] [address] Dr. Agueda Wiley NEUT # 6.6 103/ul Critically high 1.4-6.[address] [facility] Comment on above: Performed By: #### R NPAB #### [facility] [address] [place] [address] Dr. Agueda Wiley Neutrophils/100 WBC (Bld) 68.4 % Normal 43.0-75.0 [facility] Comment on above: Performed By: #### R NPAB #### [facility] [address] [address] [address] Agueda Wiley Platelet mean volume (Bld) [Entitic vol] 10.0 fL Normal 9.5-13.5 [facility] Comment on above: Performed By: #### R NPAB #### [facility] [address] [address] [address] Agueda Wiley PLT 379 103/ul Normal 150-450 [facility] Comment on above: Performed By: #### R NPAB #### [facility] [address] [address] [address] Agueda Wiley RBC 4.64 106/ul Normal 4.20-5.40 [facility] Comment on above: Performed By: #### R NPAB #### [facility] [address] [address] [address] Agueda Wiley WBC 9.7 103/ul Normal 4.0-11.0 [facility] Comment on above: Performed By: #### R NPAB #### [facility] [address] [address] [address] Agueda Wiley CRPon 08-13-2022 CRP 0.2 mg/dL Normal <=1.0 [facility] Comment on above: Performed By: #### A NAIFA #### [facility] [address] [address] [address] Agueda Wiley PROF 14(COMP METB)on 022 Albumin [Mass/Vol] 3.4 g/dL Normal 3.4-5.0 [facility] Comment on above: Performed By: #### A NAIFA #### [facility] [address] [place] [address] Dr. Agueda Wiley Albumin/Globulin [Mass ratio] 0.8 {ratio} Normal [facility] Comment on above: Performed By: #### A NAIFA #### [facility] [address] [address] [address] Agueda Wiley ALP [Catalytic activity/Vol] 94 U/L Normal 46-116 [facility] Comment on above: Performed By: #### A NAIFA #### [facility] [address] [address] [address] Agueda Wiley ALT [Catalytic activity/Vol] 16 U/L Normal 14-59 [facility] Comment on above: Performed By: #### A NAIFA #### [facility] [address] [address] [address] Agueda Wiley Anion gap [Moles/Vol] 13.0 mmol/L Normal [facility] Comment on above: Performed By: #### A NAIFA #### [facility] [address] [place] [address] Dr. Agueda Wiley AST [Catalytic activity/Vol] 13 U/L Critically low 15-37 [facility] Comment on above: Performed By: #### A NAIFA #### [facility] [address] [place] [address] Dr. Agueda Wiley Bilirubin [Mass/Vol] 0.3 mg/dL Normal 0.2-1.0 [facility] Comment on above: Performed By: #### A NAIFA #### [facility] [address] [place] [address] Dr. Agueda Wiley Calcium [Mass/Vol] 9.1 mg/dL Normal 8.5-10.1 [facility] Comment on above: Performed By: #### A NAIFA #### [facility] [address] [place] [address] Dr. Agueda Wiley Chloride [Moles/Vol] 103 mmol/L Normal 98-107 [facility] Comment on above: Performed By: #### A NAIFA #### [facility] [address] [address] [address] Agueda Wiley CO2 [Moles/Vol] 25.8 mmol/L Normal 21.0-32.0 [facility] Comment on above: Performed By: #### A NAIFA #### [facility] [address] [address] [address] Agueda Wiley Creatinine [Mass/Vol] 0.94 mg/dL Normal 0.55-1.02 [facility] Comment on above: Performed By: #### A NAIFA #### [facility] [address] [address] [address] Agueda Wiley EGFR-AF PANAMANIAN >60 Normal >=60 [facility] Comment on above: Performed By: #### A NAIFA #### [facility] [address] [address] [address] Agueda Wiley EGFR-NON AF PANAMANIAN 59 mL/min/1.73m2 Critically low >=60 [facility] Comment on above: Performed By: #### A NAIFA #### [facility] [address] [address] [address] Agueda Wiley Globulin (S) [Mass/Vol] 4.1 g/dL Normal [facility] Comment on above: Performed By: #### A NAIFA #### [facility] [address] [address] [address] Agueda Wiley Glucose [Mass/Vol] 110 mg/dL Critically high 74-106 [facility] Comment on above: Performed By: #### A NAIFA #### [facility] [address] [address] [address] Agueda Wiley Potassium [Moles/Vol] 3.8 mmol/L Normal 3.5-5.1 [facility] Comment on above: Performed By: #### A NAIFA #### [facility] [address] [address] [address] Agueda Wiley Sodium [Moles/Vol] 138 mmol/L Normal 136-145 [facility] Comment on above: Performed By: #### A NAIFA #### [facility] [address] [address] [address] Agueda Wiley Urea nitrogen [Mass/Vol] 20.0 mg/dL Critically high 7.0-18.0 [facility] Comment on above: Performed By: #### A NAIFA #### [facility] [address] [place] [address] Dr. Agueda Wiley Urea nitrogen/Creatinine [Mass ratio] 21.3 mg/mg Normal [facility] Comment on above: Performed By: #### A NAIFA #### [facility] [address] [place] [address] Dr. Agueda Wiley SED RATE WESTERGRENon 2021 SED RATE 82 mm/hr Critically high <=30 [facility] Comment on above: Performed By: #### R NPAB #### [facility] [address] [place] [address] Dr. Agueda Wiley TOTAL PROTEIN SERUMon 2021 Protein [Mass/Vol] 7.5 g/dL Normal 6.4-8.2 [facility] Comment on above: Performed By: #### A NAIFA #### [facility] [address] [place] [address] Dr. Agueda Wiley XR CHEST 2 Von [...] by: TENZIN GENTILE Date: 2022-08-13 18:41 Normal [facility] CBC AUTO DIFFon 08-04-2022 BASO # 0.1 103/ul Normal 0.0-0.1 [facility] Comment on above: Performed By: #### A NAIFA #### [facility] [address] [place] [address] Dr. Agueda Wiley Basophils/100 WBC (Bld) 0.5 % Normal 0.2-2.0 [facility] Comment on above: Performed By: #### A NAIFA #### [facility] [address] [place] [address] Dr. Agueda Wiley EO # 0.1 103/ul Normal 0.0-0.7 [facility] Comment on above: Performed By: #### A NAIFA #### [facility] [address] [place] [address] Dr. Agueda Wiley Eosinophils/100 WBC (Bld) 0.7 % Critically low 0.9-7.0 [facility] Comment on above: Performed By: #### A NAIFA #### [facility] [address] [place] [address] Dr. Agueda Wiley Erythrocyte distribution width (RBC) [Ratio] 14.3 % Normal 11.0-15.0 [facility] Comment on above: Performed By: #### A NAIFA #### [facility] [address] [place] [address] Dr. Agueda Wiley Hematocrit (Bld) [Volume fraction] 37.3 % Normal 36.0-48.0 [facility] Comment on above: Performed By: #### A NAIFA #### [facility] [address] [place] [address] Dr. Agueda Wiley Hemoglobin (Bld) [Mass/Vol] 12.1 g/dL Normal 12.0-16.0 [facility] Comment on above: Performed By: #### A NAIFA #### [facility] [address] [place] [address] Dr. Agueda Wiley IG # 0.03 10e3/ul Normal 0.00-0.03 [facility] Comment on above: Performed By: #### A NAIFA #### [facility] [address] [place] [address] Dr. Agueda Wiley IG % 0.3 % Normal 0.0-0.5 [facility] Comment on above: Performed By: #### A NAIFA #### [facility] [address] [place] [address] Dr. Agueda Wiley LYMPH # 1.5 103/ul Normal 1.2-3.8 [facility] Comment on above: Performed By: #### A NAIFA #### [facility] [address] [place] [address] Dr. Agueda Wiley Lymphocytes/100 WBC (Bld) 15.8 % Critically low 20.5-60.0 [facility] Comment on above: Performed By: #### A NAIFA #### [facility] [address] [place] [address] Dr. Agueda Wiley MANUAL DIFF REQ NO Normal [facility] Comment on above: Performed By: #### A NAIFA #### [facility] [address] [place] [address] Dr. Agueda Wiley MCH (RBC) [Entitic mass] 29.6 pg Normal 26.7-34.0 [facility] Comment on above: Performed By: #### A NAIFA #### [facility] [address] [place] [address] Dr. Agueda Wiley MCHC (RBC) [Mass/Vol] 32.4 g/dL Normal 29.9-35.2 [facility] Comment on above: Performed By: #### A NAIFA #### [facility] [address] [place] [address] Dr. Agueda Wiley MCV (RBC) [Entitic vol] 91.2 fL Normal 81.0-99.0 [facility] Comment on above: Performed By: #### A NAIFA #### [facility] [address] [place] [address] Dr. Agueda Wiley MONO # 0.6 103/ul Normal 0.3-0.8 [facility] Comment on above: Performed By: #### A NAIFA #### [facility] [address] [place] [address] Dr. Agueda Wiley Monocytes/100 WBC (Bld) 6.2 % Normal 1.7-12.0 [facility] Comment on above: Performed By: #### A NAIFA #### [facility] [address] [place] [address] Dr. Agueda Wiley NEUT # 7.2 103/ul Critically high 1.4-6.[address] [facility] Comment on above: Performed By: #### A NAIFA #### [facility] [address] [address] [address] Agueda Wiley Neutrophils/100 WBC (Bld) 76.5 % Critically high 43.0-75.0 [facility] Comment on above: Performed By: #### A NAJOSEA #### [facility] [address] [address] [address] Agueda Wiley Platelet mean volume (Bld) [Entitic vol] 11.0 fL Normal 9.5-13.5 [facility] Comment on above: Performed By: #### A NAIFA #### [facility] [address] [address] [address] Agueda Wiley PLT 298 103/ul Normal 150-450 [facility] Comment on above: Performed By: #### A NAJOSEA #### [facility] [address] [place] [address] Dr. Agueda Wiley RBC 4.09 106/ul Critically low 4.20-5.[address] [facility] Comment on above: Performed By: #### A NAJOSEA #### [facility] [address] [place] [address] Dr. Agueda Wiley WBC 9.5 103/ul Normal 4.0-11.0 [facility] Comment on above: Performed By: #### A NAJOSEA #### [facility] [address] [place] [address] Dr. Agueda Wiley CREATININEon 08-04-2022 Creatinine [Mass/Vol] 0.93 mg/dL Normal 0.55-1.02 [facility] Comment on above: Performed By: #### C MIKKI, LIVER #### [facility] [address] [place] [address] Dr. Agueda Wiley EGFR-AF PANAMANIAN >60 Normal >=60 [facility] Comment on above: Performed By: #### C MIKKI, LIVER #### [facility] [address] [place] [address] Dr. Agueda Wiley EGFR-NON AF PANAMANIAN =60 Normal >=60 [facility] Comment on above: Performed By: #### C MIKKI, LIVER #### [facility] [address] [place] [address] Dr. Agueda Wiley LIVER PROFILEon 08-04-2022 Albumin [Mass/Vol] 3.0 g/dL Critically low 3.4-5.0 [facility] Comment on above: Performed By: #### C MIKKI, LIVER #### [facility] [address] [place] [address] Dr. Agueda Wiley Albumin/Globulin [Mass ratio] 0.7 {ratio} Normal [facility] Comment on above: Performed By: #### C MIKKI, LIVER #### [facility] [address] [place] [address] Dr. Agueda Wiley ALP [Catalytic activity/Vol] 94 U/L Normal 46-116 [facility] Comment on above: Performed By: #### C MIKKI, LIVER #### [facility] [address] [place] [address] Dr. Agueda Wiley ALT [Catalytic activity/Vol] 20 U/L Normal 14-59 [facility] Comment on above: Performed By: #### C MIKKI, LIVER #### [facility] [address] [place] [address] Dr. Agueda Wiley AST [Catalytic activity/Vol] 15 U/L Normal 15-37 [facility] Comment on above: Performed By: #### C MIKKI, LIVER #### [facility] [address] [place] [address] Dr. Agueda Wiley BILI, CONJUGATED 0.1 mg/dL Normal 0.0-0.2 [facility] Comment on above: Performed By: #### C MIKKI, LIVER #### [facility] [address] [place] [address] Dr. Agueda Wiley Bilirubin [Mass/Vol] 0.4 mg/dL Normal 0.2-1.0 [facility] Comment on above: Performed By: #### C MIKKI, LIVER #### [facility] [address] [place] [address] Dr. Agueda Wiley Globulin (S) [Mass/Vol] 4.3 g/dL Normal [facility] Comment on above: Performed By: #### C MIKKI, LIVER #### [facility] [address] [place] [address] Dr. Agueda Wiley Protein [Mass/Vol] 7.3 g/dL Normal 6.4-8.2 [facility] Comment on above: Performed By: #### C MIKKI, LIVER #### [facility] Laboratory [address] [place] [address] Dr. Agueda Wiley SED RATE WESTERGRENon 2021 SED RATE 105 mm/hr Critically high <=30 [facility] Comment on above: Performed By: #### R NPAB #### [facility] [address] [place] [address] Dr. Agueda Wiley CBC AUTO DIFFon 06-09-2022 BASO # 0.1 103/ul Normal 0.0-0.1 [facility] Comment on above: Performed By: #### A NAIFA #### [facility] [address] [place] [address] Dr. Agueda Wiley Basophils/100 WBC (Bld) 0.7 % Normal 0.2-2.0 [facility] Comment on above: Performed By: #### A NAIFA #### [facility] [address] [place] [address] Dr. Agueda Wiley EO # 0.4 103/ul Normal 0.0-0.7 [facility] Comment on above: Performed By: #### A NAIFA #### [facility] [address] [place] [address] Dr. Agueda Wiley Eosinophils/100 WBC (Bld) 3.6 % Normal 0.9-7.0 [facility] Comment on above: Performed By: #### A NAIFA #### [facility] [address] [place] [address] Dr. Agueda Wiley Erythrocyte distribution width (RBC) [Ratio] 13.6 % Normal 11.0-15.0 [facility] Comment on above: Performed By: #### A NAIFA #### [facility] [address] [place] [address] Dr. Agueda Wiley Hematocrit (Bld) [Volume fraction] 38.5 % Normal 36.0-48.0 [facility] Comment on above: Performed By: #### A NAIFA #### [facility] [address] [place] [address] Dr. Agueda Wiley Hemoglobin (Bld) [Mass/Vol] 12.4 g/dL Normal 12.0-16.0 [facility] Comment on above: Performed By: #### A NAIFA #### [facility] [address] [place] [address] Dr. Agueda Wiley IG # 0.07 10e3/ul Critically high 0.00-0.03 [facility] Comment on above: Performed By: #### A NAIFA #### [facility] [address] [place] [address] Dr. Agueda Wiley IG % 0.6 % Critically high 0.0-0.5 [facility] Comment on above: Performed By: #### A NAIFA #### [facility] [address] [place] [address] Dr. Agueda Wiley LYMPH # 2.1 103/ul Normal 1.2-3.8 [facility] Comment on above: Performed By: #### A NAIFA #### [facility] [address] [place] [address] Dr. Agueda Wiley Lymphocytes/100 WBC (Bld) 17.7 % Critically low 20.5-60.0 [facility] Comment on above: Performed By: #### A NAIFA #### [facility] [address] [place] [address] Dr. Agueda Wiley MANUAL DIFF REQ NO Normal [facility] Comment on above: Performed By: #### A NAIFA #### [facility] [address] [place] [address] Dr. Agueda Wiley MCH (RBC) [Entitic mass] 29.4 pg Normal 26.7-34.0 [facility] Comment on above: Performed By: #### A NAIFA #### [facility] [address] [place] [address] Dr. Agueda Wiley MCHC (RBC) [Mass/Vol] 32.2 g/dL Normal 29.9-35.2 [facility] Comment on above: Performed By: #### A NAIFA #### [facility] [address] [place] [address] Dr. Agueda Wiley MCV (RBC) [Entitic vol] 91.2 fL Normal 81.0-99.0 [facility] Comment on above: Performed By: #### A NAIFA #### [facility] [address] [place] [address] Dr. Agueda Wiley MONO # 1.1 103/ul Critically high 0.3-0.[address] [facility] Comment on above: Performed By: #### A NAIFA #### [facility] [address] [place] [address] Dr. Agueda Wiley Monocytes/100 WBC (Bld) 9.4 % Normal 1.7-12.0 [facility] Comment on above: Performed By: #### A NAIFA #### [facility] [address] [place] [address] Dr. Agueda Wiley NEUT # 8.0 103/ul Critically high 1.4-6.[address] [facility] Comment on above: Performed By: #### A NAIFA #### [facility] [address] [place] [address] Dr. Agueda Wiley Neutrophils/100 WBC (Bld) 68.0 % Normal 43.0-75.0 [facility] Comment on above: Performed By: #### A NAIFA #### [facility] [address] [place] [address] Dr. Agueda Wiley Platelet mean volume (Bld) [Entitic vol] 10.7 fL Normal 9.5-13.5 [facility] Comment on above: Performed By: #### A NAIFA #### [facility] [address] [place] [address] Dr. Agueda Wiley PLT 417 103/ul Normal 150-450 [facility] Comment on above: Performed By: #### A NAIFA #### [facility] [address] [place] [address] Dr. Agueda Wiley RBC 4.22 106/ul Normal 4.20-5.40 [facility] Comment on above: Performed By: #### A DUANE #### [facility] [address] [address] [address] Agueda Wiley WBC 11.8 103/ul Critically high 4.0-11.0 [facility] Comment on above: Performed By: #### A DUANE #### [facility] [address] [place] [address] Dr. Agueda Wiley PROF CHEM 8 (BAS METB)on Anion gap [Moles/Vol] 15.3 mmol/L Normal [facility] Comment on above: Performed By: #### C MIKKI, LIVER #### [facility] [address] [place] [address] Dr. Agueda Wiley Calcium [Mass/Vol] 8.8 mg/dL Normal 8.5-10.1 [facility] Comment on above: Performed By: #### C MIKKI, LIVER #### [facility] [address] [place] [address] Dr. Agueda Wiley Chloride [Moles/Vol] 106 mmol/L Normal 98-107 [facility] Comment on above: Performed By: #### C MIKKI, LIVER #### [facility] [address] [place] [address] Dr. Agueda Wiley CO2 [Moles/Vol] 23.7 mmol/L Normal 21.0-32.0 [facility] Comment on above: Performed By: #### C MIKKI, LIVER #### [facility] [address] [place] [address] Dr. Agueda Wiley Creatinine [Mass/Vol] 1.10 mg/dL Critically high 0.55-1.02 [facility] Comment on above: Performed By: #### C MIKKI, LIVER #### [facility] [address] [place] [address] Dr. Agueda Wiley EGFR-AF PANAMANIAN 60 mL/min/1.73m2 Normal >=60 [facility] Comment on above: Performed By: #### C MIKKI, LIVER #### [facility] [address] [address] [address] Agueda Wiley EGFR-NON AF PANAMANIAN 50 mL/min/1.73m2 Critically low >=60 [facility] Comment on above: Performed By: #### C MIKKI, LIVER #### [facility] [address] [address] [address] Agueda Wiley Glucose [Mass/Vol] 126 mg/dL Critically high 74-106 [facility] Comment on above: Performed By: #### C MIKKI, LIVER #### [facility] [address] [address] [address] Agueda Wiley Potassium [Moles/Vol] 4.0 mmol/L Normal 3.5-5.1 [facility] Comment on above: Performed By: #### C MIKKI, LIVER #### [facility] [address] [address] [address] Agueda Wiley Sodium [Moles/Vol] 141 mmol/L Normal 136-145 [facility] Comment on above: Performed By: #### C MIKKI, LIVER #### [facility] [address] [address] [address] Agueda Wiley Urea nitrogen [Mass/Vol] 14.0 mg/dL Normal 7.0-18.0 [facility] Comment on above: Performed By: #### C MIKKI, LIVER #### [facility] [address] [address] [address] Agueda Wiley Urea nitrogen/Creatinine [Mass ratio] 12.7 mg/mg Normal [facility] Comment on above: Performed By: #### C MIKKI, LIVER #### [facility] [address] [address] [address] Agueda Wiley XR femur LT 2V*on 05-28-2022 XR femur LT 2V* [facility] [employer] Other XR femur LT 2V* [facility] [employer] Other XR femur LT 2V* [address] [place] [address] [employer] Other XR femur LT 2V* [place] [address] [address] [facility] [employer] Other XR femur LT 2V* XRay Report [facility] [employer] Other XR femur LT 2V* Signed [facility] [employer] Other XR femur LT 2V* Patient: Reba Gregory MR#: [id number] Located Within [facility] [employer] Other XR femur LT 2V* : 1955 Acct:[id number] Wisner [employer] Other XR femur LT 2V* Age/Sex: 66 / F ADM Date: 05/28/22 [employer] Other XR femur LT 2V* [place]: [facility] [place]: Type: [facility] [employer] Other XR femur LT 2V* Attending Dr: Nabor Nelson II, MD [employer] Other XR femur LT 2V* Copies to: Nabor Nelson MD [employer] Other XR femur LT 2V* Ordering Provider: Nabor Nelson MD [employer] Other XR femur LT 2V* Date of Service: 05/28/22 [employer] Other XR femur LT 2V* XR/XR femur LT 2V*: Aftercare following joint replacement surgery [employer] Other XR femur LT 2V* ([id number]) XR/XR tibia fibula LT 2V*: Aftercare following joint replacement surgery [employer] Other XR femur LT 2V* ([id number]) XR/XR knee LT 2V: Aftercare following joint replacement surgery [employer] Other XR femur LT 2V* XR tibia fibula LT 2V*, XR knee LT 2V, XR femur LT 2V* 05/28/2022 8:18 AM [employer] Other XR femur LT 2V* SIGNS AND SYMPTOMS: Aftercare following joint replacement surgery [employer] Other XR femur LT 2V* PROTOCOL: Frontal radiographs of the left femur, left knee, and left tibia and fibula [employer] Other XR femur LT 2V* COMPARISON: 04/16/2022 [employer] Other XR femur LT 2V* FINDINGS: BTR Other XR femur LT 2V* The bones are in anatomic alignment. There is total left knee arthroplasty hardware without [employer] Other XR femur LT 2V* hardware complication or malalignment. No fracture or dislocation. The visualized bony ring of the [employer] Other XR femur LT 2V* pelvis is grossly intact. [employer] Other XR femur LT 2V* XR/XR tibia fibula LT 2V* [employer] Other XR femur LT 2V* IMPRESSION: [employer] Other XR femur LT 2V* Status post total left knee arthroplasty hardware placement without hardware complication or [employer] Other XR femur LT 2V* malalignment. [employer] Other XR femur LT 2V* Impression dictated by: Michael Benítez M.D.05/28/2022 11:51 AM [employer] Other XR femur LT 2V* Dictation Location: [place] [address] [employer] Other XR femur LT 2V* Transcribed By: TANYA 05/28/22 1151 [employer] Other XR femur LT 2V* Dictated By: Michael Benítez II, MD 05/28/22 1149 [employer] Other XR femur LT 2V* Signed By: [facility] [employer] Other XR femur LT 2V* 05/28/22 1151 [email or web address] [facility] [employer] Other CBC W MANUAL DIFFon 05-20-20 ATYPICAL LYMPH # Normal [facility] Comment on above: Performed By: #### A NAIFA #### [facility] [address] [place] [address] Dr. Agueda Wiley ATYPICAL LYMPH % Normal [facility] Comment on above: Performed By: #### A NAIFA #### [facility] [address] [place] [address] Dr. Agueda Wiley BAND # Normal 0.0-0.3 [facility] Comment on above: Performed By: #### A NAIFA #### [facility] [address] [place] [address] Dr. Agueda Wiley BAND % Normal 0-5 [facility] Comment on above: Performed By: #### A NAIFA #### [facility] [address] [place] [address] Dr. Agueda Wiley BASOM # 0.15 103/ul Critically high 0.00-0.10 [facility] Comment on above: Performed By: #### A NAIFA #### [facility] [address] [place] [address] Dr. Agueda Wiley BASOM % 1.0 % Normal 0.2-2.0 [facility] Comment on above: Performed By: #### A NAIFA #### [facility] [address] [place] [address] Dr. Agueda Wiley BLAST # Normal [facility] Comment on above: Performed By: #### A NAIFA #### [facility] [address] [place] [address] Dr. Agueda Wiley BLAST % Normal [facility] Comment on above: Performed By: #### A NAIFA #### [facility] [address] [place] [address] Dr. Agueda Wiley CORRECTED WBC Normal 4.0-11.0 [facility] Comment on above: Performed By: #### A NAIFA #### [facility] [address] [address] [address] Agueda Wiley EOS # 0.00 103/ul Normal 0.00-0.70 [facility] Comment on above: Performed By: #### A NAIFA #### [facility] [address] [address] [address] Agueda Wiley EOS% 0.0 % Critically low 0.9-7.0 [facility] Comment on above: Performed By: #### A NAIFA #### [facility] [address] [address] [address] Agueda Wiley HCT 34.4 % Critically low 36.0-48.0 [facility] Comment on above: Performed By: #### A NAIFA #### [facility] [address] [place] [address] Dr. Agueda Wiley HGB 11.1 g/dl Critically low 12.0-16.0 [facility] Comment on above: Performed By: #### A NAIFA #### [facility] [address] [place] [address] Dr. Agueda Wiley LYMPHM # 2.31 103/ul Normal 1.20-3.80 [facility] Comment on above: Performed By: #### A NAIFA #### [facility] [address] [place] [address] Dr. Agueda Wiley LYMPHM% 15.0 % Critically low 20.5-60.0 [facility] Comment on above: Performed By: #### A NAIFA #### [facility] [address] [place] [address] Dr. Agueda Wiley MCH 29.1 pg Normal 26.7-34.0 [facility] Comment on above: Performed By: #### A NAIFA #### [facility] [address] [place] [address] Dr. Agueda Wiley MCHC 32.3 g/dl Normal 29.9-35.2 [facility] Comment on above: Performed By: #### A NAIFA #### [facility] [address] [place] [address] Dr. Agueda Wiley MCV 90.3 fL Normal 81.0-99.0 [facility] Comment on above: Performed By: #### A NAIFA #### [facility] [address] [place] [address] Dr. Agueda Wiley METAMYELOCYTE # Normal [facility] Comment on above: Performed By: #### A NAIFA #### [facility] [address] [place] [address] Dr. Agueda Wiley METAMYELOCYTE % Normal [facility] Comment on above: Performed By: #### A NAIFA #### [facility] [address] [place] [address] Dr. Agueda Wiley MONOM# 1.39 103/ul Critically high 0.30-0.80 [facility] Comment on above: Performed By: #### A NAIFA #### [facility] [address] [place] [address] Dr. Agueda Wiley MONOM% 9.0 % Normal 1.7-12.0 [facility] Comment on above: Performed By: #### A NAIFA #### [facility] [address] [place] [address] Dr. Agueda Wiley MPV 11.0 fL Normal 9.5-13.5 [facility] Comment on above: Performed By: #### A NAIFA #### [facility] [address] [place] [address] Dr. Agueda Wiley MYELOCYTE # Normal [facility] Comment on above: Performed By: #### A NAIFA #### [facility] [address] [place] [address] Dr. Agueda Wiley MYELOCYTE % Normal [facility] Comment on above: Performed By: #### A NAIFA #### [facility] [address] [place] [address] Dr. Agueda Wiley NRBC Normal [facility] Comment on above: Performed By: #### A NAIFA #### [facility] [address] [place], [place] [id number] Dr. Agueda Wiley PLT 333 103/ul Normal 150-450 [facility] Comment on above: Performed By: #### A NAIFA #### [facility] [address] [place] [address] Dr. Agueda Wiley RBC 3.81 106/ul Critically low 4.20-5.40 [facility] Comment on above: Performed By: #### A NAIFA #### [facility] [address] [place] [address] Dr. Agueda Wiley RDW 12.8 % Normal 11.0-15.0 [facility] Comment on above: Performed By: #### A NAIFA #### [facility] [address] [place] [address] Dr. Agueda Wiley SEG # 11.55 103/ul Critically high 1.40-6.50 [facility] Comment on above: Performed By: #### A NAIFA #### [facility] [address] [place] [address] Dr. Agueda Wiley SEG % 75.0 % Normal 43.0-75.0 [facility] Comment on above: Performed By: #### A NAIFA #### [facility] [address] [place] [address] Dr. Agueda Wiley WBC 15.4 103/ul Critically high 4.0-11.0 [facility] Comment on above: Performed By: #### A NAIFA #### [facility] [address] [place] [address] Dr. Agueda Wiley PROF 14(COMP METB)on 022 Albumin [Mass/Vol] 1.9 g/dL Critically low 3.4-5.0 [facility] Comment on above: Performed By: #### R NPAB #### [facility] [address] [place] [address] Dr. Agueda Wiley Albumin/Globulin [Mass ratio] 0.7 {ratio} Normal [facility] Comment on above: Performed By: #### R NPAB #### [facility] [address] [place] [address] Dr. Augeda Wiley ALP [Catalytic activity/Vol] 75 U/L Normal 46-116 [facility] Comment on above: Performed By: #### R NPAB #### [facility] [address] [place] [address] Dr. Agueda Wiley ALT [Catalytic activity/Vol] 18 U/L Normal 14-59 [facility] Comment on above: Performed By: #### R NPAB #### [facility] [address] [place] [address] Dr. Agueda Wiley Anion gap [Moles/Vol] 12.4 mmol/L Normal [facility] Comment on above: Performed By: #### R NPAB #### [facility] [address] [place] [address] Dr. Agueda Wiley AST [Catalytic activity/Vol] 20 U/L Normal 15-37 [facility] Comment on above: Performed By: #### R NPAB #### [facility] [address] [place] [address] Dr. Agueda Wiley Bilirubin [Mass/Vol] 0.2 mg/dL Normal 0.2-1.0 [facility] Comment on above: Performed By: #### R NPAB #### [facility] [address] [place] [address] Dr. Agueda Wiley Calcium [Mass/Vol] 7.7 mg/dL Critically low 8.5-10.1 [facility] Comment on above: Performed By: #### R NPAB #### [facility] [address] [place] [address] Dr. Agueda Wiley Chloride [Moles/Vol] 108 mmol/L Critically high 98-107 [facility] Comment on above: Performed By: #### R NPAB #### [facility] [address] [place] [address] Dr. Agueda Wliey CO2 [Moles/Vol] 21.9 mmol/L Normal 21.0-32.0 [facility] Comment on above: Performed By: #### R NPAB #### [facility] [address] [place] [address] Dr. Agueda Wiley Creatinine [Mass/Vol] 0.81 mg/dL Normal 0.55-1.02 [facility] Comment on above: Performed By: #### R NPAB #### [facility] [address] [address] [address] Agueda Wiley EGFR-AF PANAMANIAN >60 Normal >=60 [facility] Comment on above: Performed By: #### R NPAB #### [facility] [address] [address] [address] Agueda Wiley EGFR-NON AF PANAMANIAN >60 Normal >=60 [facility] Comment on above: Performed By: #### R NPAB #### [facility] [address] [address] [address] Agueda Wiley Globulin (S) [Mass/Vol] 2.6 g/dL Normal [facility] Comment on above: Performed By: #### R NPAB #### [facility] [address] [place] [address] Dr. Agueda Wiley Glucose [Mass/Vol] 102 mg/dL Normal 74-106 [facility] Comment on above: Performed By: #### R NPAB #### [facility] [address] [address] [address] Agueda Wiley Potassium [Moles/Vol] 3.3 mmol/L Critically low 3.5-5.1 [facility] Comment on above: Performed By: #### R NPAB #### [facility] [address] [address] [address] Agueda Wiley Protein [Mass/Vol] 4.5 g/dL Critically low 6.4-8.2 [facility] Comment on above: Performed By: #### R NPAB #### [facility] [address] [address] [address] Agueda Wiley Sodium [Moles/Vol] 139 mmol/L Normal 136-145 [facility] Comment on above: Performed By: #### R NPAB #### [facility] [address] [address] [address] Agueda Wiley Urea nitrogen [Mass/Vol] 7.0 mg/dL Normal 7.0-18.0 [facility] Comment on above: Performed By: #### R NPAB #### [facility] [address] [place] [address] Dr. Agueda Wiley Urea nitrogen/Creatinine [Mass ratio] 8.6 mg/mg Normal [facility] Comment on above: Performed By: #### R NPAB #### [facility] [address] [place] [address] Dr. Agueda Wiley CBC AUTO DIFFon 05-19-2022 BASO # 0.1 103/ul Normal 0.0-0.1 [facility] Comment on above: Performed By: #### C MIKKI, LIVER #### [facility] [address] [place] [address] Dr. Agueda Wiley Basophils/100 WBC (Bld) 0.4 % Normal 0.2-2.0 [facility] Comment on above: Performed By: #### C MIKKI, LIVER #### [facility] [address] [place] [address] Dr. Agueda Wiley EO # 0.3 103/ul Normal 0.0-0.7 [facility] Comment on above: Performed By: #### C MIKKI, LIVER #### [facility] [address] [place] [address] Dr. Agueda Wiley Eosinophils/100 WBC (Bld) 1.5 % Normal 0.9-7.0 [facility] Comment on above: Performed By: #### C MIKKI, LIVER #### [facility] [address] [place] [address] Dr. Agueda Wiley Erythrocyte distribution width (RBC) [Ratio] 12.5 % Normal 11.0-15.0 [facility] Comment on above: Performed By: #### C MIKKI, LIVER #### [facility] [address] [place] [address] Dr. Agueda Wiley Hematocrit (Bld) [Volume fraction] 37.3 % Normal 36.0-48.0 [facility] Comment on above: Performed By: #### C MIKKI, LIVER #### [facility] [address] [place] [address] Dr. Agueda Wiley Hemoglobin (Bld) [Mass/Vol] 12.0 g/dL Normal 12.0-16.0 [facility] Comment on above: Performed By: #### C MIKKI, LIVER #### [facility] [address] [address] [address] Agueda Wiley IG # 0.59 10e3/ul Critically high 0.00-0.03 [facility] Comment on above: Performed By: #### C MIKKI, LIVER #### [facility] [address] [place] [address] Dr. Agueda Wiley IG % 3.1 % Critically high 0.0-0.[address] [facility] [address] [facility] Comment on above: Performed By: #### C MIKKI, LIVER #### [facility] [address] [place] [address] Dr. Agueda Wiley LYMPH # 1.7 103/ul Normal 1.2-3.8 [facility] Comment on above: Performed By: #### C MIKKI, LIVER #### [facility] [address] [place] [address] Dr. Agueda Wiley Lymphocytes/100 WBC (Bld) 8.7 % Critically low 20.5-60.0 [facility] Comment on above: Performed By: #### C MIKKI, LIVER #### [facility] [address] [place] [address] Dr. Agueda Wiley MANUAL DIFF REQ NO Normal [facility] Comment on above: Performed By: #### C MIKKI, LIVER #### [facility] [address] [place] [address] Dr. Agueda Wiley MCH (RBC) [Entitic mass] 28.9 pg Normal 26.7-34.0 [facility] Comment on above: Performed By: #### C MIKKI, LIVER #### [facility] [address] [place] [address] Dr. Agueda Wiley MCHC (RBC) [Mass/Vol] 32.2 g/dL Normal 29.9-35.2 [facility] Comment on above: Performed By: #### C MIKKI, LIVER #### [facility] [address] [address] [address] Agueda Wiley MCV (RBC) [Entitic vol] 89.9 fL Normal 81.0-99.0 [facility] Comment on above: Performed By: #### C MIKKI, LIVER #### [facility] [address] [address] [address] Agueda Wiley MONO # 1.3 103/ul Critically high 0.3-0.[address] [facility] Comment on above: Performed By: #### C MIKKI, LIVER #### [facility] [address] [place] [address] Dr. Agueda Wiley Monocytes/100 WBC (Bld) 6.8 % Normal 1.7-12.0 [facility] Comment on above: Performed By: #### C MIKKI, LIVER #### [facility] [address] [place] [address] Dr. Agueda Wiley NEUT # 15.2 103/ul Critically high 1.4-6.5 The [facility] Comment on above: Performed By: #### C MIKKI, LIVER #### [facility] [address] [place] [address] Dr. Agueda Wiley Neutrophils/100 WBC (Bld) 79.5 % Critically high 43.0-75.0 [facility] Comment on above: Performed By: #### C MIKKI, LIVER #### [facility] [address] [place] [address] Dr. Agueda Wiley Platelet mean volume (Bld) [Entitic vol] 10.3 fL Normal 9.5-13.5 [facility] Comment on above: Performed By: #### C MIKKI, LIVER #### [facility] [address] [place] [address] Dr. Agueda Wiley PLT 328 103/ul Normal 150-450 [facility] Comment on above: Performed By: #### C MIKKI, LIVER #### [facility] [address] [place] [address] Dr. Agueda Wiley RBC 4.15 106/ul Critically low 4.20-5.[address] [facility] Comment on above: Performed By: #### C MIKKI, LIVER #### [facility] [address] [address] [address] Agueda Wiley WBC 19.1 103/ul Critically high 4.0-11.0 [facility] Comment on above: Performed By: #### C MIKKI, LIVER #### [facility] [address] [place] [address] Dr. Agueda Wiley PROF 14(COMP METB)on 022 Albumin [Mass/Vol] 2.0 g/dL Critically low 3.4-5.0 [facility] Comment on above: Performed By: #### R NPAB #### [facility] [address] [place] [address] Dr. Agueda Wiley Albumin/Globulin [Mass ratio] 0.7 {ratio} Normal [facility] Comment on above: Performed By: #### R NPAB #### [facility] [address] [place] [address] Dr. Agueda Wiley ALP [Catalytic activity/Vol] 94 U/L Normal 46-116 [facility] Comment on above: Performed By: #### R NPAB #### [facility] [address] [place] [address] Dr. Agueda Wiley ALT [Catalytic activity/Vol] 16 U/L Normal 14-59 [facility] Comment on above: Performed By: #### R NPAB #### [facility] [address] [place] [address] Dr. Agueda Wiley Anion gap [Moles/Vol] 13.3 mmol/L Normal [facility] Comment on above: Performed By: #### R NPAB #### [facility] [address] [place] [address] Dr. Agueda Wiley AST [Catalytic activity/Vol] 11 U/L Critically low 15-37 [facility] Comment on above: Performed By: #### R NPAB #### [facility] [address] [place] [address] Dr. Agueda Wiley Bilirubin [Mass/Vol] 0.3 mg/dL Normal 0.2-1.0 [facility] Comment on above: Performed By: #### R NPAB #### [facility] [address] [address] [address] Agueda Wiley Calcium [Mass/Vol] 7.8 mg/dL Critically low 8.5-10.1 Th [facility] Comment on above: Performed By: #### R NPAB #### [facility] [address] [address] [address] Agueda Wiley Chloride [Moles/Vol] 107 mmol/L Normal 98-107 [facility] Comment on above: Performed By: #### R NPAB #### [facility] [address] [address] [address] Agueda Wiley CO2 [Moles/Vol] 20.0 mmol/L Critically low 21.0-32.0 [facility] Comment on above: Performed By: #### R NPAB #### [facility] [address] [address] [address] Agueda Wiley Creatinine [Mass/Vol] 0.81 mg/dL Normal 0.55-1.02 [facility] Comment on above: Performed By: #### R NPAB #### [facility] [address] [address] [address] Agueda Wiley EGFR-AF PANAMANIAN >60 Normal >=60 [facility] Comment on above: Performed By: #### R NPAB #### [facility] [address] [address] [address] Agueda Wiley EGFR-NON AF PANAMANIAN >60 Normal >=60 [facility] Comment on above: Performed By: #### R NPAB #### [facility] [address] [address] [address] Agueda Wiley Globulin (S) [Mass/Vol] 3.0 g/dL Normal [facility] Comment on above: Performed By: #### R NPAB #### [facility] [address] [address] [address] Agueda Wiley Glucose [Mass/Vol] 113 mg/dL Critically high 74-106 [facility] Comment on above: Performed By: #### R NPAB #### [facility] [address] [address] [address] Agueda Wiley Potassium [Moles/Vol] 3.3 mmol/L Critically low 3.5-5.1 [facility] Comment on above: Performed By: #### R NPAB #### [facility] [address] [address] [address] Agueda Wiley Protein [Mass/Vol] 5.0 g/dL Critically low 6.4-8.2 Th [facility] Comment on above: Performed By: #### R NPAB #### [facility] [address] [address] [address] Agueda Wiley Sodium [Moles/Vol] 137 mmol/L Normal 136-145 [facility] Comment on above: Performed By: #### R NPAB #### [facility] [address] [place] [address] Dr. Agueda Wiley Urea nitrogen [Mass/Vol] 11.0 mg/dL Normal 7.0-18.0 [facility] Comment on above: Performed By: #### R NPAB #### [facility] [address] [address] [address] Agueda Wiley Urea nitrogen/Creatinine [Mass ratio] 13.6 mg/mg Normal [facility] Comment on above: Performed By: #### R NPAB #### [facility] [address] [place] [address] Dr. Agueda Wiley CBC W MANUAL DIFFon 05-18-20 22 ATYPICAL LYMPH # 0.23 103/ul Normal [facility] Comment on above: Performed By: #### C MIKKI, LIVER #### [facility] [address] [place] [address] Dr. Agueda Wiley ATYPICAL LYMPH % 1 % Normal [facility] Comment on above: Performed By: #### C MIKKI, LIVER #### [facility] [address] [address] [address] Agueda Wiley BAND # 0.0 103/ul Normal 0.0-0.3 [facility] Comment on above: Performed By: #### C MIKKI, LIVER #### [facility] [address] [place] [address] Dr. Agueda Wiley BAND % 0 % Normal 0-5 [facility] Comment on above: Performed By: #### C MIKKI, LIVER #### [facility] [address] [place] [address] Dr. Agueda Wiley BASOM # 0.00 103/ul Normal 0.00-0.10 [facility] Comment on above: Performed By: #### C MIKKI, LIVER #### [facility] [address] [place] [address] Dr. Agueda Wiley BASOM % 0.0 % Critically low 0.2-2.0 [facility] Comment on above: Performed By: #### C MIKKI, LIVER #### [facility] [address] [place] [address] Dr. Agueda Wiley BLAST # Normal [facility] Comment on above: Performed By: #### C MIKKI, LIVER #### [facility] [address] [place] [address] Dr. Agueda Wiley BLAST % Normal [facility] Comment on above: Performed By: #### C MIKKI, LIVER #### [facility] [address] [place] [address] Dr. Agueda Wiley CORRECTED WBC Normal 4.0-11.0 [facility] Comment on above: Performed By: #### C MIKKI, LIVER #### [facility] [address] [place] [address] Dr. Agueda Wiley EOS # 0.23 103/ul Normal 0.00-0.70 [facility] Comment on above: Performed By: #### C MIKKI, LIVER #### [facility] [address] [place] [address] Dr. Agueda Wiley EOS% 1.0 % Normal 0.9-7.0 [facility] Comment on above: Performed By: #### C MIKKI, LIVER #### [facility] [address] [place] [address] Dr. Agueda Wiley HCT 35.7 % Critically low 36.0-48.0 [facility] Comment on above: Performed By: #### C MIKKI, LIVER #### [facility] [address] [address] [address] Agueda Wiley HGB 11.6 g/dl Critically low 12.0-16.0 [facility] Comment on above: Performed By: #### C MIKKI, LIVER #### [facility] [address] [address] [address] Agueda Wiley LYMPHM # 1.41 103/ul Normal 1.20-3.80 [facility] Comment on above: Performed By: #### C MIKKI, LIVER #### [facility] [address] [address] [address] Agueda Wiley LYMPHM% 6.0 % Critically low 20.5-60.0 [facility] Comment on above: Performed By: #### C MIKKI, LIVER #### [facility] [address] [address] [address] Agueda Wiley MCH 29.4 pg Normal 26.7-34.0 [facility] Comment on above: Performed By: #### C MIKKI, LIVER #### [facility] [address] [address] [address] Agueda Wiley MCHC 32.5 g/dl Normal 29.9-35.2 [facility] Comment on above: Performed By: #### C MIKKI, LIVER #### [facility] [address] [address] [address] Agueda Wiley MCV 90.4 fL Normal 81.0-99.0 [facility] Comment on above: Performed By: #### C MIKKI, LIVER #### [facility] [address] [address] [address] Agueda Wiley METAMYELOCYTE # Normal [facility] Comment on above: Performed By: #### C MIKKI, LIVER #### [facility] [address] [address] [address] Agueda Wiley METAMYELOCYTE % Normal [facility] Comment on above: Performed By: #### C MIKKI, LIVER #### [facility] [address] [address] [address] Agueda Wiley MONOM# 0.94 103/ul Critically high 0.30-0.80 [facility] Comment on above: Performed By: #### C MIKKI, LIVER #### [facility] [address] [place] [address] Dr. Agueda Wiley MONOM% 4.0 % Normal 1.7-12.0 [facility] Comment on above: Performed By: #### C MIKKI, LIVER #### [facility] [address] [place] [address] Dr. Agueda Wiley MPV 10.5 fL Normal 9.5-13.5 [facility] Comment on above: Performed By: #### C MIKKI, LIVER #### [facility] [address] [place] [address] Dr. Agueda Wiley MYELOCYTE # Normal [facility] Comment on above: Performed By: #### C MIKKI, LIVER #### [facility] [address] [place] [address] Dr. Agueda Wiley MYELOCYTE % Normal [facility] Comment on above: Performed By: #### C MIKKI, LIVER #### [facility] [address] [place] [address] Dr. Agueda Wiley NRBC Normal [facility] Comment on above: Performed By: #### C MIKKI, LIVER #### [facility] [address] [place] [address] Dr. Agueda Wiley PLT 306 103/ul Normal 150-450 [facility] Comment on above: Performed By: #### C MIKKI, LIVER #### [facility] [address] [place] [address] Dr. Agueda Wiley RBC 3.95 106/ul Critically low 4.20-5.[address] [facility] Comment on above: Performed By: #### C MIKKI, LIVER #### [facility] [address] [place] [address] Dr. Agueda Wiley RDW 12.6 % Normal 11.0-15.0 [facility] Comment on above: Performed By: #### C MIKKI, LIVER #### [facility] [address] [address] [address] Agueda Wiley SEG # 20.68 103/ul Critically high 1.40-6.50 [facility] Comment on above: Performed By: #### C MIKKI, LIVER #### [facility] [address] [address] [address] Agueda Wiley SEG % 88.0 % Critically high 43.0-75.0 [facility] Comment on above: Performed By: #### C MIKKI, LIVER #### [facility] [address] [address] [address] Agueda Wiley WBC 23.5 103/ul Critically high 4.0-11.0 [facility] Comment on above: Performed By: #### C MIKKI, LIVER #### [facility] [address] [place] [address] Dr. Agueda Wiley PROF 14(COMP METB)on 022 Albumin [Mass/Vol] 1.8 g/dL Critically low 3.4-5.0 [facility] Comment on above: Performed By: #### C MIKKI, LIVER #### [facility] [address] [address] [address] Agueda Wiley Albumin/Globulin [Mass ratio] 0.6 {ratio} Normal [facility] Comment on above: Performed By: #### C MIKKI, LIVER #### [facility] [address] [address] [address] Agueda Wiley ALP [Catalytic activity/Vol] 107 U/L Normal 46-116 [facility] Comment on above: Performed By: #### C MIKKI, LIVER #### [facility] [address] [address] [address] Agueda Wiley ALT [Catalytic activity/Vol] 20 U/L Normal 14-59 [facility] Comment on above: Performed By: #### C MIKKI, LIVER #### [facility] [address] [place] [address] Dr. Agueda Wiley Anion gap [Moles/Vol] 14.6 mmol/L Normal [facility] Comment on above: Performed By: #### C MIKKI, LIVER #### [facility] [address] [address] [address] Agueda Wiley AST [Catalytic activity/Vol] 12 U/L Critically low 15-37 [facility] Comment on above: Performed By: #### C MIKKI, LIVER #### [facility] [address] [place] [address] Dr. Agueda Wiley Bilirubin [Mass/Vol] 0.3 mg/dL Normal 0.2-1.0 [facility] Comment on above: Performed By: #### C MIKKI, LIVER #### [facility] [address] [place] [address] Dr. Agueda Wiley Calcium [Mass/Vol] 7.5 mg/dL Critically low 8.5-10.1 Th [facility] Comment on above: Performed By: #### C MIKKI, LIVER #### [facility] [address] [place] [address] Dr. Agueda Wiley Chloride [Moles/Vol] 107 mmol/L Normal 98-107 [facility] Comment on above: Performed By: #### C MIKKI, LIVER #### [facility] [address] [place] [address] Dr. Agueda Wiley CO2 [Moles/Vol] 20.4 mmol/L Critically low 21.0-32.0 [facility] Comment on above: Performed By: #### C MIKKI, LIVER #### [facility] [address] [place] [address] Dr. Agueda Wiley Creatinine [Mass/Vol] 0.96 mg/dL Normal 0.55-1.02 [facility] Comment on above: Performed By: #### C MIKKI, LIVER #### [facility] [address] [place] [address] Dr. Agueda Wiley EGFR-AF PANAMANIAN >60 Normal >=60 [facility] Comment on above: Performed By: #### C MIKKI, LIVER #### [facility] [address] [place] [address] Dr. Agueda Wiley EGFR-NON AF PANAMANIAN 58 mL/min/1.73m2 Critically low >=60 [facility] Comment on above: Performed By: #### C MIKKI, LIVER #### [facility] [address] [place] [address] Dr. Agueda Wiley Globulin (S) [Mass/Vol] 2.9 g/dL Normal [facility] Comment on above: Performed By: #### C MIKKI, LIVER #### [facility] [address] [place] [address] Dr. Agueda Wiley Glucose [Mass/Vol] 93 mg/dL Normal 74-106 [facility] Comment on above: Performed By: #### C MIKKI, LIVER #### [facility] [address] [place] [address] Dr. Agueda Wiley Potassium [Moles/Vol] 3.0 mmol/L Critically low 3.5-5.1 [facility] Comment on above: Performed By: #### C MIKKI, LIVER #### [facility] [address] [place] [address] Dr. Agueda Wiley Protein [Mass/Vol] 4.7 g/dL Critically low 6.4-8.2 Th [facility] Comment on above: Performed By: #### C MIKKI, LIVER #### [facility] [address] [place] [address] Dr. Agueda Wiley Sodium [Moles/Vol] 138 mmol/L Normal 136-145 [facility] Comment on above: Performed By: #### C MIKKI, LIVER #### [facility] [address] [place] [address] Dr. Agueda Wiley Urea nitrogen [Mass/Vol] 18.0 mg/dL Normal 7.0-18.0 [facility] Comment on above: Performed By: #### C MIKKI, LIVER #### [facility] [address] [place] [address] Dr. Agueda Wiley Urea nitrogen/Creatinine [Mass ratio] 18.8 mg/mg Normal [facility] Comment on above: Performed By: #### C MIKKI, LIVER #### [facility] [address] [place] [address] Dr. Agueda Wiley AMYLASEon 05-17-2022 Amylase [Catalytic activity/Vol] 79 U/L Normal 25-115 [facility] Comment on above: Performed By: #### C SUITE #### [facility] [address] [place] [address] Dr. Agueda Wiley CBC W MANUAL DIFFon 05-17-20 22 ATYPICAL LYMPH # Normal [facility] Comment on above: Performed By: #### C MIKKI, LIVER #### [facility] [address] [place] [address] Dr. Agueda Wiley ATYPICAL LYMPH % Normal [facility] Comment on above: Performed By: #### C MIKKI, LIVER #### [facility] [address] [place] [address] Dr. Agueda Wiley BAND # Normal 0.0-0.3 [facility] Comment on above: Performed By: #### C MIKKI, LIVER #### [facility] [address] [place] [address] Dr. Agueda Wiley BAND % Normal 0-5 [facility] Comment on above: Performed By: #### C MIKKI, LIVER #### [facility] [address] [place] [address] Dr. Agueda Wiley BASOM # 0.00 103/ul Normal 0.00-0.10 [facility] Comment on above: Performed By: #### C MIKKI, LIVER #### [facility] [address] [place] [address] Dr. Agueda Wiley BASOM % 0.0 % Critically low 0.2-2.0 [facility] Comment on above: Performed By: #### C MIKKI, LIVER #### [facility] [address] [place] [address] Dr. Agueda Wiley BLAST # Normal [facility] Comment on above: Performed By: #### C MIKKI, LIVER #### [facility] [address] [place] [address] Dr. Agueda Wiley BLAST % Normal [facility] Comment on above: Performed By: #### C MIKKI, LIVER #### [facility] [address] [place] [address] Dr. Agueda Wiley CORRECTED WBC Normal 4.0-11.0 [facility] Comment on above: Performed By: #### C MIKKI, LIVER #### [facility] [address] [address] [address] Agueda Wiley EOS # 0.00 103/ul Normal 0.00-0.70 [facility] Comment on above: Performed By: #### C MIKKI, LIVER #### [facility] [address] [address] [address] Agueda Wiley EOS% 0.0 % Critically low 0.9-7.0 [facility] Comment on above: Performed By: #### C MIKKI, LIVER #### [facility] [address] [address] [address] Agueda Wiley HCT 43.3 % Normal 36.0-48.0 [facility] Comment on above: Performed By: #### C MIKKI, LIVER #### [facility] [address] [address] [address] Agueda Wiley HGB 14.4 g/dl Normal 12.0-16.0 [facility] Comment on above: Performed By: #### C MIKKI, LIVER #### [facility] [address] [address] [address] Agueda Wiley LYMPHM # 2.96 103/ul Normal 1.20-3.80 [facility] Comment on above: Performed By: #### C MIKKI, LIVER #### [facility] [address] [address] [address] Agueda Wiley LYMPHM% 10.0 % Critically low 20.5-60.0 [facility] Comment on above: Performed By: #### C MIKKI, LIVER #### [facility] [address] [place] [address] Dr. Agueda Wiley MCH 29.4 pg Normal 26.7-34.0 [facility] Comment on above: Performed By: #### C MIKKI, LIVER #### [facility] [address] [address] [address] Agueda Wiley MCHC 33.3 g/dl Normal 29.9-35.2 [facility] Comment on above: Performed By: #### C MIKKI, LIVER #### [facility] [address] [place] [address] Dr. Agueda Wiley MCV 88.5 fL Normal 81.0-99.0 [facility] Comment on above: Performed By: #### C MIKKI, LIVER #### [facility] [address] [place] [address] Dr. Agueda Wiley METAMYELOCYTE # Normal [facility] Comment on above: Performed By: #### C MIKKI, LIVER #### [facility] [address] [place] [address] Dr. Agueda Wiley METAMYELOCYTE % Normal [facility] Comment on above: Performed By: #### C MIKKI, LIVER #### [facility] [address] [place] [address] Dr. Agueda Wiley MONOM# 1.78 103/ul Critically high 0.30-0.80 [facility] Comment on above: Performed By: #### C MIKKI, LIVER #### [facility] [address] [place] [address] Dr. Agueda Wiley MONOM% 6.0 % Normal 1.7-12.0 [facility] Comment on above: Performed By: #### C MIKKI, LIVER #### [facility] [address] [place] [address] Dr. Agueda Wiley MPV 10.6 fL Normal 9.5-13.5 [facility] Comment on above: Performed By: #### C MIKKI, LIVER #### [facility] [address] [place] [address] Dr. Agueda Wiley MYELOCYTE # Normal [facility] Comment on above: Performed By: #### C MIKKI, LIVER #### [facility] [address] [place] [address] Dr. Agueda Wiley MYELOCYTE % Normal [facility] Comment on above: Performed By: #### C MIKKI, LIVER #### [facility] [address] [place] [address] Dr. Agueda Wiley NRBC Normal [facility] Comment on above: Performed By: #### C MIKKI, LIVER #### [facility] [address] [address] [address] Agueda Wiley PLT 383 103/ul Normal 150-450 [facility] Comment on above: Performed By: #### C MIKKI, LIVER #### [facility] [address] [address] [address] Agueda Wiley RBC 4.89 106/ul Normal 4.20-5.40 [facility] Comment on above: Performed By: #### C MIKKI, LIVER #### [facility] [address] [address] [address] Agueda Wiley RDW 12.7 % Normal 11.0-15.0 [facility] Comment on above: Performed By: #### C MIKKI, LIVER #### [facility] [address] [address] [address] Agueda Wiley SEG # 24.86 103/ul Critically high 1.40-6.50 [facility] Comment on above: Performed By: #### C MIKKI, LIVER #### [facility] [address] [address] [address] Agueda Wiley SEG % 84.0 % Critically high 43.0-75.0 [facility] Comment on above: Performed By: #### C MIKKI, LIVER #### [facility] [address] [address] [address] Agueda Wiley WBC 29.6 103/ul Critically high 4.0-11.0 [facility] Comment on above: Performed By: #### C MIKKI, LIVER #### [facility] [address] ABD/PELVIS WO CONon [...] FAY BERGERON Date: 2022-05-17 10:55 Normal [facility] CULTURE BLOODon 05-17-2022 Microscopic examination of blood, culture Culture Observations: NO GROWTH AT 5 DAYS. Normal [facility] Comment on above: Performed By: #### KARINA VIVEROS #### [facility] [address] [address] [address] Agueda Wiley Microscopic examination of blood, culture Culture Observations: NO GROWTH AT 5 DAYS. Normal [facility] Comment on above: Performed By: #### Gila KAYE LIVER #### [facility] [address] [address] [address] Agueda Wiley [facility]on SARS-CoV-2 (COVID-19) RNA JEREMIAH+probe Ql (Unsp spec) Not detected Normal NOT DETECTED [facility] Comment on above: Result Comment: When [...] for this test is supported by the [place] of Health and Human Service's declaration that [...] used). Performed By: #### R NPAB #### [facility] [address] [place] [address] Dr. Agueda Wiley ER URINE PROFILEon 2 Bilirubin Ql (U) Negative Normal NEGATIVE [facility] Comment on above: Performed By: #### R NPAB #### [facility] [address] [place] [address] Dr. Agueda Wiley Clarity (U) CLEAR Normal CLEAR [facility] Comment on above: Performed By: #### R NPAB #### [facility] [address] [place] [address] Dr. Agueda Wiley Color (U) YELLOW Normal YELLOW [facility] Comment on above: Performed By: #### R NPAB #### [facility] [address] [place] [address] Dr. Agueda LINDO A micrscopic examination will be performed if indicated. Normal [facility] Comment on above: Performed By: #### R NPAB #### [facility] [address] [place] [address] Dr. Agueda Wiley Glucose Ql (U) Negative Normal NEGATIVE [facility] Comment on above: Performed By: #### R NPAB #### [facility] [address] [place] [address] Dr. Agueda Wiley Hemoglobin Ql (U) Negative Normal NEGATIVE [facility] Comment on above: Performed By: #### R NPAB #### [facility] [address] [place] [address] Dr. Agueda Wiley Ketones Ql (U) 15 mg/dl Abnormal NEGATIVE [facility] Comment on above: Performed By: #### R NPAB #### [facility] [address] [place] [address] Dr. Agueda Wiley LEUKOCYTES Negative Normal NEGATIVE [facility] Comment on above: Performed By: #### R NPAB #### [facility] [address] [place] [address] Dr. Agueda Wiley Nitrite Ql (U) Negative Normal NEGATIVE [facility] Comment on above: Performed By: #### R NPAB #### [facility] [address] [place] [address] Dr. Agueda Wiley pH (U) 6.0 [pH] Normal 5-9 [facility] Comment on above: Performed By: #### R NPAB #### [facility] [address] [place] [address] Dr. Agueda Wiley SPEC GRAVITY 1.015 Normal 1.005-<=1.025 [facility] Comment on above: Performed By: #### R NPAB #### [facility] [address] [place] [address] Dr. Agueda Wiley UA PROTEIN Negative Normal NEGATIVE/ TRACE [facility] Comment on above: Performed By: #### R NPAB #### [facility] [address] [place] [address] Dr. Agueda Wiley UR MICRO IND NOT INDICATED Normal [facility] Comment on above: Performed By: #### R NPAB #### [facility] [address] [place] [address] Dr. Agueda Wiley Urobilinogen Qn (U) 0.2 {Charlotte'U}/dL Normal 0.2 - 1. 0 [facility] Comment on above: Performed By: #### R NPAB #### [facility] [address] [place] [address] Dr. Agueda Wiley GI PANEL (PCR)on 05-17-2022 Adenovirus F 40/41 Not detected Normal NOT DETECTED [facility] Comment on above: Performed By: #### C MIKKI, LIVER #### [facility] [address] [place] [address] Dr. Agueda Wiley Astrovirus Not detected Normal NOT DETECTED [facility] Comment on above: Performed By: #### C MIKKI, LIVER #### [facility] [address] [place] [address] Dr. Agueda Uriostegui. Diff toxin A/B Detected Critically abnormal NOT DETECTED [facility] Comment on above: Performed By: #### C MIKKI, LIVER #### [facility] [address] [place] [address] Dr. Agueda Wiley Campylobacter Not detected Normal NOT DETECTED [facility] Comment on above: Performed By: #### C MIKKI, LIVER #### [facility] [address] [place] [address] Dr. Agueda Wiley Cryptosporidium Not detected Normal NOT DETECTED [facility] Comment on above: Performed By: #### C MIKKI, LIVER #### [facility] [address] [place] [address] Dr. Agueda Wiley Cyclos. Cayetanensis Not detected Normal NOT DETECTED [facility] Comment on above: Performed By: #### C MIKKI, LIVER #### [facility] [address] [place] [address] Dr. Agueda Wiley E. Coli O157 Not Applicable Normal Not Applicable [facility] Comment on above: Performed By: #### C MIKKI, LIVER #### [facility] [address] [place] [address] Dr. Agueda Wiley E. histolytica Not detected Normal NOT DETECTED [facility] Comment on above: Performed By: #### C MIKKI, LIVER #### [facility] [address] [place] [address] Dr. Agueda Wiley EAEC Not detected Normal NOT DETECTED [facility] Comment on above: Performed By: #### C MIKKI, LIVER #### [facility] [address] [place] [address] Dr. Agueda Wiley EIEC Not detected Normal NOT DETECTED [facility] Comment on above: Performed By: #### C MIKKI, LIVER #### [facility] [address] [place] [address] Dr. Agueda Wiley EPEC Not detected Normal NOT DETECTED [facility] Comment on above: Performed By: #### C MIKKI, LIVER #### [facility] [address] [address] [address] Agueda Wiley ETEC Not detected Normal NOT DETECTED [facility] Comment on above: Performed By: #### C MIKKI, LIVER #### [facility] [address] [address] [address] Agueda Holguin Lamblia Not detected Normal NOT DETECTED [facility] Comment on above: Performed By: #### C MIKKI, LIVER #### [facility] [address] [address] [address] Agueda LERNER CONTROLS PASSED Normal [facility] Comment on above: Performed By: #### C MIKKI, LIVER #### [facility] [address] [place] [address] Dr. Agueda BRITO HEADER GI PANEL BACTERIA Normal [facility] Comment on above: Performed By: #### C MIKKI, LIVER #### [facility] [address] [place] [address] Dr. Agueda ALMEIDA ECOLI GI PANEL DIARRHEAGENIC E.COLI / SHIGELLA Normal [facility] Comment on above: Performed By: #### C MIKKI, LIVER #### [facility] [address] [place] [address] Dr. Agueda ALMEIDA INFO SEE BELOW Normal [facility] Comment on above: Result Comment: EAEC - Enteroaggregative E. Coli EPEC- Enteropathogenic E. Coli ETEC- Enterotoxigenic E. Coli lt/st STEC- Shigella-like toxin-producing E. Coli stx1/stx2 EIEC- Shigella/Enteroinvasive E. Coli Performed By: #### C MIKKI, LIVER #### [facility] [address] [place] [address] Dr. Agueda ALMEIDA PARASITES GI PANEL PARASITES Normal [facility] Comment on above: Performed By: #### C MIKKI, LIVER #### [facility] [address] [place] [address] Dr. Agueda ALMEIDA VIRUS GI PANEL VIRUSES Normal [facility] Comment on above: Performed By: #### C MIKKI, LIVER #### [facility] [address] [place] [address] Dr. Agueda Wiley Norovirus GI/GII Not detected Normal NOT DETECTED [facility] Comment on above: Performed By: #### C MIKKI, LIVER #### [facility] [address] [address] [address] Agueda Wiley P. Shigelloides Not detected Normal NOT DETECTED [facility] Comment on above: Performed By: #### C MIKKI, LIVER #### [facility] [address] [address] [address] Agueda Wiley Rotavirus A Not detected Normal NOT DETECTED [facility] Comment on above: Performed By: #### C MIKKI, LIVER #### [facility] [address] [place] [address] Dr. Agueda Wiley Salmonella Not detected Normal NOT DETECTED [facility] Comment on above: Performed By: #### C MIKKI, LIVER #### [facility] [address] [place] [address] Dr. Agueda Wiley Sapovirus Not detected Normal NOT DETECTED [facility] Comment on above: Performed By: #### C MIKKI, LIVER #### [facility] [address] [address] [address] Agueda Wiley STEC Not detected Normal NOT DETECTED [facility] Comment on above: Performed By: #### C MIKKI, LIVER #### [facility] [address] [place] [address] Dr. Agueda Wiley Vibrio Not detected Normal NOT DETECTED [facility] Comment on above: Performed By: #### C MIKKI, LIVER #### [facility] [address] [place] [address] Dr. Agueda Wiley Vibrio Cholera Not detected Normal NOT DETECTED [facility] Comment on above: Performed By: #### C MIKKI, LIVER #### [facility] [address] [address] [address] Agueda Wiley Y. Enterocolitica Not detected Normal NOT DETECTED [facility] Comment on above: Performed By: #### C MIKKI, LIVER #### [facility] [address] [place] [address] Dr. Agueda Wiley LACTATE/LACTIC ACIDon 2021 Lactate [Moles/Vol] 1.3 mmol/L Normal 0.4-1.9 [facility] Comment on above: Performed By: #### A NAIFA #### [facility] [address] [place] [address] Dr. Agueda Wiley LIPASEon 05-17-2022 Lipase [Catalytic activity/Vol] 200.0 U/L Normal 73.0-393.0 [facility] Comment on above: Performed By: #### C SUITE #### [facility] [address] [place] [address] Dr. Agueda Wiley PROF 14(COMP METB)on 022 Albumin [Mass/Vol] 2.3 g/dL Critically low 3.4-5.0 [facility] Comment on above: Performed By: #### C SUITE #### [facility] [address] [place] [address] Dr. Agueda Wiley Albumin/Globulin [Mass ratio] 0.6 {ratio} Normal [facility] Comment on above: Performed By: #### C SUITE #### [facility] [address] [place] [address] Dr. Agueda Wiley ALP [Catalytic activity/Vol] 140 U/L Critically high 46-116 [facility] Comment on above: Performed By: #### C SUITE #### [facility] [address] [place] [address] Dr. Agueda Wiley ALT [Catalytic activity/Vol] 26 U/L Normal 14-59 [facility] Comment on above: Performed By: #### C SUITE #### [facility] [address] [place] [address] Dr. Agueda Wiley Anion gap [Moles/Vol] 17.5 mmol/L Normal [facility] Comment on above: Performed By: #### C SUITE #### [facility] [address] [place] [address] Dr. Agueda Wiley AST [Catalytic activity/Vol] 15 U/L Normal 15-37 [facility] Comment on above: Performed By: #### C SUITE #### [facility] [address] [address] [address] Agueda Wiley Bilirubin [Mass/Vol] 0.3 mg/dL Normal 0.2-1.0 [facility] Comment on above: Performed By: #### C SUITE #### [facility] [address] [place] [address] Dr. Agueda Wiley Calcium [Mass/Vol] 8.1 mg/dL Critically low 8.5-10.1 [facility] Comment on above: Performed By: #### C SUITE #### [facility] [address] [place] [address] Dr. Agueda Wiley Chloride [Moles/Vol] 98 mmol/L Normal 98-107 [facility] Comment on above: Performed By: #### C SUITE #### [facility] [address] [place] [address] Dr. Agueda Wiley CO2 [Moles/Vol] 21.9 mmol/L Normal 21.0-32.0 [facility] Comment on above: Performed By: #### C SUITE #### [facility] [address] [place] [address] Dr. Agueda Wiley Creatinine [Mass/Vol] 1.00 mg/dL Normal 0.55-1.02 [facility] Comment on above: Performed By: #### C SUITE #### [facility] [address] [place] [address] Dr. Agueda Wiley EGFR-AF PANAMANIAN >60 Normal >=60 [facility] Comment on above: Performed By: #### C SUITE #### [facility] [address] [place] [address] Dr. Agueda Wiley EGFR-NON AF PANAMANIAN 55 mL/min/1.73m2 Critically low >=60 [facility] Comment on above: Performed By: #### C SUITE #### [facility] [address] [place] [address] Dr. Agueda Wiley Globulin (S) [Mass/Vol] 3.8 g/dL Normal [facility] Comment on above: Performed By: #### C SUITE #### [facility] [address] [place] [address] Dr. Agueda Wiley Glucose [Mass/Vol] 119 mg/dL Critically high 74-106 [facility] Comment on above: Performed By: #### C SUITE #### [facility] [address] [place] [address] Dr. Agueda Wiley Potassium [Moles/Vol] 3.4 mmol/L Critically low 3.5-5.1 [facility] Comment on above: Performed By: #### C SUITE #### [facility] [address] [place] [address] Dr. Agueda Wiley Protein [Mass/Vol] 6.1 g/dL Critically low 6.4-8.2 Th [facility] Comment on above: Performed By: #### C SUITE #### [facility] [address] [place] [address] Dr. Agueda Wiley Sodium [Moles/Vol] 134 mmol/L Critically low 136-145 [facility] Comment on above: Performed By: #### C SUITE #### [facility] [address] [place] [address] Dr. Agueda Wiley Urea nitrogen [Mass/Vol] 19.0 mg/dL Critically high 7.0-18.0 [facility] Comment on above: Performed By: #### C SUITE #### [facility] [address] [place] [address] Dr. Agueda Wiley Urea nitrogen/Creatinine [Mass ratio] 19.0 mg/mg Normal [facility] Comment on above: Performed By: #### C SUITE #### [facility] [address] [place] [address] Dr. Agueda Wiley PROTIMEon 05-17-2022 INR Coag (PPP) [Relative time] 1.12 {INR} Normal [facility] Comment on above: Performed By: #### C MIKKI, LIVER #### [facility] [address] [place] [address] Dr. Agueda Wiley INR GUIDELINES SEE BELOW Normal [facility] Comment on above: Result Comment: ROSA RED INR: 2.0 - 3.0 CONDITIONS NOT LISTED BELOW 2.5 - 3.5 FOR PROSTHETIC HEART VALVE REPLACEMENT 2.5 - 3.5 RECURRENT THROMBOSIS Performed By: #### C MIKKI, LIVER #### [facility] [address] [place], [place] [address] Dr. Agueda Wiley PT Coag (PPP) [Time] 12.0 s Critically high 9.0-11.6 [facility] Comment on above: Performed By: #### C MIKKI, LIVER #### [facility] [address] [place], [place] [address] Dr. Augeda Wiley PTTon 05-17-2022 aPTT Coag (Bld) [Time] 24.8 s Normal 22.3-36.2 [facility] Comment on above: Performed By: #### C MIKKI, LIVER #### [facility] [address] [place], [place] [address] Dr. Agueda Wiley XR knee LT 3Von 04-16-2022 XR knee LT 3V [facility] [employer] Other XR knee LT 3V [facility] [employer] Other XR knee LT 3V [address] [place] [address] [employer] Other XR knee LT 3V [address] [employer] Other XR knee LT 3V XRay Report [facility] [employer] Other XR knee LT 3V Signed [employer] Other XR knee LT 3V Patient: Reba Gregory MR#: [id number] Located [facility] [employer] Other XR knee LT 3V : 1955 Acct:[id number] Located [facility] [employer] Other XR knee LT 3V Age/Sex: 66 / F ADM Date: 04/16/22 Located [facility] [employer] Other XR knee LT 3V Loc: [facility] Room: Type: REG CLI [employer] Other XR knee LT 3V Attending Dr: Nabor Nelson II, MD [employer] Other XR knee LT 3V Copies to: Nabor Nelson MD [employer] Other XR knee LT 3V Ordering Provider: Nabor Nelson MD [employer] Other XR knee LT 3V Date of Service: 04/16/22 [employer] Other XR knee LT 3V XR/XR knee LT 3V - NOT FOR ER USE: Aftercare following joint replacement [employer] Other XR knee LT 3V surgery [employer] Other XR knee LT 3V LEFT KNEE - 4 views No rt [employer] Other XR knee LT 3V CLINICAL HISTORY: Follow-up left knee surgery. [employer] Other XR knee LT 3V COMPARISON: Left knee 03/02/2022 [employer] Other XR knee LT 3V FINDINGS: [employer] Other XR knee LT 3V Left knee prosthesis without radiographic complication. No acute bony process. [employer] Other XR knee LT 3V XR/XR knee LT 3V - NOT FOR ER USE [employer] Other XR knee LT 3V IMPRESSION: [employer] Other XR knee LT 3V NO EVIDENCE OF HARDWARE COMPLICATION. [employer] Other XR knee LT 3V Impression dictated by: Dave Espana Jr., D.O.04/16/2022 10:02 AM [employer] Other XR knee LT 3V Dictation Location: [place] [address] [employer] Other XR knee LT 3V Transcribed By: PWS 04/16/22 1002 [employer] Other XR knee LT 3V Dictated By: Dave Espana Jr, DO 04/16/22 1001 [employer] Other XR knee LT 3V Signed By: [employer] Other XR knee LT 3V 04/16/22 1002 [facility] [employer] Other Basophils Auto (Bld) [#/Vol] Ordered By: Nabor Nelson on 03-03-2022 Basophils (Bld) [#/Vol] 0.0 10*3/uL 0.0-0.2 [facility] Basophils/100 WBC Auto (Bld) Ordered By: Nabor Nelson on 03-03-2022 Basophils/100 WBC (Bld) 0.2 % . [facility] Blood hemoglobin measurement (mass/volume)Ordered By: Nabor Nelson on 03-03-2022 Hemoglobin (Bld) [Mass/Vol] 11.4 g/dL 11.8-15.4 [facility] Blood leukocytes automated c ount (number/volume)Ordered By: Nabor Nelson on 03-03-2022 WBC (Bld) [#/Vol] 8.3 10*3/uL 4.5-11.0 [facility] Creatinine and Glomerular fi ltration rate.predicted panel (S/P/Bld)Ordered By: Nabor Nelson on 03-03-2022 Creatinine [Mass/Vol] 0.95 mg/dL 0.44-1.03 [facility] Eosinophils Auto (Bld) [#/Vo l]Ordered By: Nabor Nelson on 03-03-2022 Eosinophils (Bld) [#/Vol] 0.0 10*3/uL 0.0-0.45 [facility] Eosinophils/100 WBC Auto (Bl d)Ordered By: Nabor Nelson on 03-03-2022 Eosinophils/100 WBC (Bld) 0.0 % . [facility] Erythrocyte distribution wid th Auto (RBC) [Ratio]Ordered By: Nabor Nelson on 03-03-2022 Erythrocyte distribution width (RBC) [Ratio] 15.0 % 11.9-15.3 [facility] Estimated glomerular filtrat ion rate (GFR) non- AmericanOrdered By: Nabor Nelson on 03-03-2022 GFR/1.73 sq M.predicted among non-blacks MDRD (S/P/Bld) [Vol rate/Area] 59 mL/Min [facility] Hematocrit Auto (Bld) [Volum e fraction]Ordered By: Nabor Nelson on 03-03-2022 Hematocrit (Bld) [Volume fraction] 33.7 % 34.0-46.4 [facility] - Hematology and Cell countsOrdered By: Nabor Nelson on 03-03-2022 Nucleated RBC/100 WBC (Bld) [Ratio] 0.0 % 0-0.5 [facility] Lymphocytes Auto (Bld) [#/Vo l]Ordered By: Nabor Nelson on 03-03-2022 Lymphocytes (Bld) [#/Vol] 0.8 10*3/uL 1.00-4.8 [facility] Lymphocytes/100 WBC Auto (Bl d)Ordered By: Nabor Nelson on 03-03-2022 Lymphocytes/100 WBC (Bld) 9.6 % . [facility] MCH Auto (RBC) [Entitic mass ]Ordered By: Nabor Nelson on 03-03-2022 MCH (RBC) [Entitic mass] 31.0 pg 24.7-34.3 [facility] MCHC Auto (RBC) [Mass/Vol]Or dered By: Nabor Nelson on 03-03-2022 MCHC (RBC) [Mass/Vol] 33.7 g/dL 32.0-35.0 [facility] MCV Auto (RBC) [Entitic vol] Ordered By: Nabor Nelson on 03-03-2022 MCV (RBC) [Entitic vol] 92.0 fL 80-100 [facility] Monocytes Auto (Bld) [#/Vol] Ordered By: Nabor Nelson on 03-03-2022 Monocytes (Bld) [#/Vol] 1.0 10*3/uL 0.0-0.8 [facility] Monocytes/100 WBC Auto (Bld) Ordered By: Nabor Nelson on 03-03-2022 Monocytes/100 WBC (Bld) 12.6 % . [facility] Neutrophils Auto (Bld) [#/Vo l]Ordered By: Nabor Nelson on 03-03-2022 Neutrophils (Bld) [#/Vol] 6.4 10*3/uL 1.8-7.7 [facility] Neutrophils/100 WBC Auto (Bl d)Ordered By: Nabor Nelson on 03-03-2022 Neutrophils/100 WBC (Bld) 77.6 % . [facility] No Panel InformationOrdered By: Nabor Nelson on 03-03-2022 Estimated GFR () > 60 mL/Min [facility] Comment on above: GFR estimated refere nce range: According to KDOQI guidelines, <60 ml/min/1.73m2 is sufficient to diagnose a patient with chronic kidney disease. Pharmacy Creatinine Clearance (Chem 55.10 [facility] Platelet mean volume Auto (B ld) [Entitic vol]Ordered By: Nabor Nelson on 03-03-2022 Platelet mean volume (Bld) [Entitic vol] 10.5 fL 6.3-10.7 [facility] Platelets Auto (Bld) [#/Vol] Ordered By: Nabor Nelson on 03-03-2022 Platelets (Bld) [#/Vol] 187 10*3/uL 150-450 [facility] RBC Auto (Bld) [#/Vol]Ordere d By: Nabor Nelson on 03-03-2022 RBC (Bld) [#/Vol] 3.66 10*6/uL 3.60-5.00 [facility] Serum or plasma calcium phan urement (mass/volume)Ordered By: Nabor Nelson on 03-03-2022 Calcium [Mass/Vol] 9.2 mg/dL 8.2-10.2 [facility] Serum or plasma chloride wilma surement (moles/volume)Ordered By: Nabor Nelson on 03-03-2022 Chloride [Moles/Vol] 107 mmol/L 95-114 [facility] Serum or plasma glucose phan urement (mass/volume)Ordered By: Nabor Nelson on 03-03-2022 Glucose [Mass/Vol] 157 mg/dL 70-100 [facility] Comment on above: ADA recommended refe rence range Random Glucose Reference Range is dependent on time and content of last meal. Glucose of more than 200 mg/dL in a nonstressed, ambulatory subject supports the diagnosis of Diabetes Mellitus. Serum or plasma potassium me asurement (moles/volume)Ordered By: Nabor Nelson on 03-03-2022 Potassium [Moles/Vol] 4.0 mmol/L 3.5-5.1 [facility] Serum or plasma sodium measu rement (moles/volume)Ordered By: Nabor Nelson on 03-03-2022 Sodium [Moles/Vol] 139 mmol/L 136-146 [facility] Serum or plasma total carbon dioxide measurement (moles/volume)Ordered By: Nabor Nelson on 03-03-2022 CO2 [Moles/Vol] 24.8 mmol/L 22.0-30.0 [facility] Serum or plasma urea nitroge n measurement (mass/volume)Ordered By: Nabor Nelson on 03-03-2022 Urea nitrogen [Mass/Vol] 12 mg/dL 9-23 [facility] COVID-19 Positive/NegativeOr dered By: Nabor Nelson on 02-26-2022 SARS-CoV-2 (COVID-19) N gene JEREMIAH+probe Ql (Resp) Negative Negative [facility] Comment on above: Testing for SARS-CoV -2 by RT-PCR This test was developed and its performance characteristics determined by [employer] and validated at the [facility]. This test has not been FDA [...] 01-30-2022 BASO # 0.0 103/ul Normal 0.0-0.1 [facility] Comment on above: Performed By: #### C MIKKI, LIVER #### [facility] [address] [place] [address] Dr. Agueda Wiley Basophils/100 WBC (Bld) 0.6 % Normal 0.2-2.0 [facility] Comment on above: Performed By: #### C MIKKI, LIVER #### [facility] [address] [place] [address] Dr. Agueda Wiley EO # 0.2 103/ul Normal 0.0-0.7 [facility] Comment on above: Performed By: #### Gila KAYE, LIVER #### [facility] [address] [place] [address] Dr. Agueda Wiley Eosinophils/100 WBC (Bld) 2.7 % Normal 0.9-7.0 [facility] Comment on above: Performed By: #### Gila KAYE, LIVER #### [facility] [address] [place] [address] Dr. Agueda Wiley Erythrocyte distribution width (RBC) [Ratio] 14.0 % Normal 11.0-15.0 [facility] Comment on above: Performed By: #### Gila KAYE, LIVER #### [facility] [address] [place] [address] Dr. Agueda Wiley Hematocrit (Bld) [Volume fraction] 42.1 % Normal 36.0-48.0 [facility] Comment on above: Performed By: #### C MIKKI, LIVER #### [facility] [address] [place] [address] Dr. Agueda Wiley Hemoglobin (Bld) [Mass/Vol] 13.8 g/dL Normal 12.0-16.0 [facility] Comment on above: Performed By: #### C MIKKI, LIVER #### [facility] [address] [place] [address] Dr. Agueda Wiley IG # 0.02 10e3/ul Normal 0.00-0.03 [facility] Comment on above: Performed By: #### C MIKKI, LIVER #### [facility] [address] [place] [address] Dr. Agueda Wiley IG % 0.3 % Normal 0.0-0.5 [facility] Comment on above: Performed By: #### C MIKKI, LIVER #### [facility] [address] [place] [address] Dr. Agueda Wiley LYMPH # 1.6 103/ul Normal 1.2-3.8 [facility] Comment on above: Performed By: #### C MIKKI, LIVER #### [facility] [address] [place] [address] Dr. Agueda Wiley Lymphocytes/100 WBC (Bld) 23.3 % Normal 20.5-60.0 [facility] Comment on above: Performed By: #### C MIKKI, LIVER #### [facility] [address] [place] [address] Dr. Agueda Wiley MCH (RBC) [Entitic mass] 29.7 pg Normal 26.7-34.0 [facility] Comment on above: Performed By: #### C MIKKI, LIVER #### [facility] [address] [place] [address] Dr. Agueda Wiley MCHC (RBC) [Mass/Vol] 32.8 g/dL Normal 29.9-35.2 [facility] Comment on above: Performed By: #### C MIKKI, LIVER #### [facility] [address] [place] [address] Dr. Agueda Wiley MCV (RBC) [Entitic vol] 90.7 fL Normal 81.0-99.0 [facility] Comment on above: Performed By: #### C MIKKI, LIVER #### [facility] [address] [place] [address] Dr. Agueda Wiley MONO # 0.8 103/ul Normal 0.3-0.8 [facility] Comment on above: Performed By: #### C MIKKI, LIVER #### [facility] [address] [place] [address] Dr. Agueda Wiley Monocytes/100 WBC (Bld) 10.7 % Normal 1.7-12.0 [facility] Comment on above: Performed By: #### C MIKKI, LIVER #### [facility] [address] [place] [address] Dr. Agueda Wiley NEUT # 4.4 103/ul Normal 1.4-6.5 [facility] Comment on above: Performed By: #### C MIKKI, LIVER #### [facility] [address] [place] [address] Dr. Agueda Wiley Neutrophils/100 WBC (Bld) 62.4 % Normal 43.0-75.0 [facility] Comment on above: Performed By: #### C MIKKI, LIVER #### [facility] [address] [place] [address] Dr. Agueda Wiley Platelet mean volume (Bld) [Entitic vol] 11.0 fL Normal 9.5-13.5 [facility] Comment on above: Performed By: #### C MIKKI, LIVER #### [facility] [address] [place] [address] Dr. Agueda Wiley PLT 270 103/ul Normal 150-450 [facility] Comment on above: Performed By: #### C MIKKI, LIVER #### [facility] [address] [place] [address] Dr. Agueda Wiley RBC 4.64 106/ul Normal 4.20-5.40 [facility] Comment on above: Performed By: #### C MIKKI, LIVER #### [facility] [address] [place] [address] Dr. Agueda Wiley WBC 7.0 103/ul Normal 4.0-11.0 [facility] Comment on above: Performed By: #### C MIKKI, LIVER #### [facility] [address] [place] [address] Dr. Agueda Wiley SAULO- BMP WITH LIPIDon 2021 Anion gap [Moles/Vol] 12.5 mmol/L Normal [facility] Comment on above: Performed By: #### C MIKKI, LIVER #### [facility] [address] [address] [address] Agueda Wiley Calcium [Mass/Vol] 9.0 mg/dL Normal 8.5-10.1 [facility] Comment on above: Performed By: #### C MIKKI, LIVER #### [facility] [address] [address] [address] Agueda Wiley Chloride [Moles/Vol] 105 mmol/L Normal 98-107 [facility] Comment on above: Performed By: #### C MIKKI, LIVER #### [facility] [address] [address] [address] Agueda Wiley Cholesterol [Mass/Vol] 246 mg/dL Critically high <=200 [facility] Comment on above: Performed By: #### C MIKKI, LIVER #### [facility] [address] [address] [address] Agueda Wiley Cholesterol in HDL [Mass/Vol] 84 mg/dL Critically high 40-60 [facility] Comment on above: Performed By: #### C MIKKI, LIVER #### [facility] [address] [address] [address] Agueda Wiley Cholesterol in LDL [Mass/Vol] 130.6 mg/dL Normal [facility] Comment on above: Performed By: #### C MIKKI, LIVER #### [facility] [address] [address] [address] Agueda Wiley CO2 [Moles/Vol] 28.4 mmol/L Normal 21.0-32.0 [facility] Comment on above: Performed By: #### C MIKKI, LIVER #### [facility] [address] [address] [address] Agueda Wiley Creatinine [Mass/Vol] 0.97 mg/dL Normal 0.55-1.02 [facility] Comment on above: Performed By: #### C MIKKI, LIVER #### [facility] [address] [address] [address] Agueda Wiley EGFR-AF PANAMANIAN >60 Normal >=60 [facility] Comment on above: Performed By: #### C MIKKI, LIVER #### [facility] [address] [address] [address] Agueda Wiley EGFR-NON AF PANAMANIAN 57 mL/min/1.73m2 Critically low >=60 [facility] Comment on above: Performed By: #### C MIKKI, LIVER #### [facility] [address] [address] [address] Agueda Wiley Glucose [Mass/Vol] 96 mg/dL Normal 74-106 [facility] Comment on above: Performed By: #### C MIKKI, LIVER #### [facility] [address] [address] [address] Agueda Wiley HDL NORMAL > or = 60 mg/dl - LOW CARDIOVASCULAR RISK <40 mg/dl - HIGH CARDIOVASCULAR RISK Normal [facility] Comment on above: Performed By: #### C MIKKI, LIVER #### [facility] [address] [address] [address] Agueda Wiley LDL CALC NORMAL SEE BELOW Normal [facility] Comment on above: Result Comment: <100 mg/dl OPTIMAL 100 - 129 mg/dl NEAR OR ABOVE OPTIMAL 130 - 159 mg/dl BORDERLINE HIGH 160 - 189 mg/dl HIGH >190 mg/dl VERY HIGH Performed By: #### C MIKKI, LIVER #### [facility] [address] [address] [address] Agueda Wiley Potassium [Moles/Vol] 3.9 mmol/L Normal 3.5-5.1 [facility] Comment on above: Performed By: #### C MIKKI, LIVER #### [facility] [address] [address] [address] Agueda Wiley Sodium [Moles/Vol] 142 mmol/L Normal 136-145 [facility] Comment on above: Performed By: #### C MIKKI, LIVER #### [facility] [address] [address] [address] Agueda Wiley Triglyceride [Mass/Vol] 157 mg/dL Critically high <=150 [facility] Comment on above: Performed By: #### C MIKKI, LIVER #### [facility] [address] [place], [place] [address] Dr. Agueda Wiley Urea nitrogen [Mass/Vol] 19.0 mg/dL Critically high 7.0-18.0 [facility] Comment on above: Performed By: #### C MIKKI, LIVER #### [facility] [address] [place], [place] [address] Dr. Agueda Wiley Urea nitrogen/Creatinine [Mass ratio] 19.6 mg/mg Normal [facility] Comment on above: Performed By: #### C MIKKI, LIVER #### [facility] [address] [place], [place] [address] Dr. Agueda Wiley VLDL CALC 31.4 mg/dL Normal [facility] Comment on above: Performed By: #### C MIKKI, LIVER #### [facility] [address] [place], [place] [address] Dr. Agueda Wiley Vital Signs Date Time Vital Sign Value Performing Clinician Facility 09-21-2023 11:15-0500 Body height 151.13 cm Massiel Fitt Other [facility] Other 09-14-2023 11:15-0500 Body height 151.13 cm Massiel Fitt Other [facility] Other 09-09-2023 09:30-0500 Body height 151.13 cm Jonathan Ball Other [facility] Other 09-09-2023 09:30-0500 Body mass index (BMI) [Ratio] 33.8 kg/m2 Jonathan Ball Other [facility] Other 09-09-2023 09:30-0500 Body weight 77.2 kg Jonathan Ball Other [facility] Other 09-09-2023 09:30-0500 Diastolic blood pressure 80 mm[Hg] Jonathan Ball Other [facility] Other 09-09-2023 09:30-0500 Respiratory rate 12 /min Jonathan Ball Other [facility] Other 09-09-2023 09:30-0500 Systolic blood pressure 169 mm[Hg] Jonathan Ball Other [facility] Other 08-19-2023 08:30-0500 Body height 151.13 cm [employer] Other [facility] Other 08-19-2023 08:30-0500 Body mass index (BMI) [Ratio] 33.6 kg/m2 [facility] Other [facility] Other 08-19-2023 08:30-0500 Body weight 76.75 kg [employer] Other [facility] Other 08-19-2023 08:30-0500 Diastolic blood pressure 97 mm[Hg] [employer] Other [facility] Other 08-19-2023 08:30-0500 Respiratory rate 18 /min [employer] Other [facility] Other 08-19-2023 08:30-0500 SaO2% (BldA) [Mass fraction] 96 % [employer] Other [facility] Other 08-19-2023 08:30-0500 Systolic blood pressure 128 mm[Hg] [employer] Other [facility] Other 08-17-2023 10:45-0500 Body height 151.13 cm Jonathan Ball Other [facility] Other 08-17-2023 10:45-0500 Body mass index (BMI) [Ratio] 33.8 kg/m2 Jonathan Ball Other [facility] Other 08-17-2023 10:45-0500 Body weight 77.2 kg Jonathan Ball Other [facility] Other 08-17-2023 10:45-0500 Diastolic blood pressure 74 mm[Hg] Jonathan Ball Other [facility] Other 08-17-2023 10:45-0500 Respiratory rate 16 /min Jonathan Ball Other [facility] Other 08-17-2023 10:45-0500 Systolic blood pressure 168 mm[Hg] Jonathan Ball Other [facility] Other 08-03-2023 11:15-0500 Body height 151.13 cm Massiel Pereira Other [facility] Other 06-16-2023 08:45-0400 Body height 151.13 cm [employer] Other [facility] Other 06-16-2023 08:45-0400 Body mass index (BMI) [Ratio] 35.58 kg/m2 [facility] Other [facility] Other 06-16-2023 08:45-0400 Body weight 81.29 kg [facility] Other [facility] Other 06-16-2023 08:45-0400 Diastolic blood pressure 76 mm[Hg] [facility] Other [facility] Other 06-16-2023 08:45-0400 Respiratory rate 18 /min [employer] Other [facility] Other 06-16-2023 08:45-0400 SaO2% (BldA) [Mass fraction] 96 % Olayinka Ramos Other [facility] Other 06-16-2023 08:45-0400 Systolic blood pressure 141 mm[Hg] Olayinka Ramos Other [facility] Other 06-09-2023 10:00-0400 Body height 151.13 cm Jonathan Ball Other [facility] Other 06-09-2023 10:00-0400 Body mass index (BMI) [Ratio] 35.78 kg/m2 Jonathan Ball Other [facility] Other 06-09-2023 10:00-0400 Body weight 81.74 kg Jonathan Ball Other [facility] Other 06-09-2023 10:00-0400 Diastolic blood pressure 84 mm[Hg] Jonathan Ball Other [facility] Other 06-09-2023 10:00-0400 Respiratory rate 16 /min Jonathan Ball Other [facility] Other 06-09-2023 10:00-0400 Systolic blood pressure 145 mm[Hg] Jonathan Ball Other [facility] Other 05-12-2023 11:15-0400 Body height 151.13 cm Massiel Pereira Other [facility] Other 05-05-2023 09:15-0400 Body height 151.13 cm Olayinka Ramos Other [facility] Other 05-05-2023 09:15-0400 Body mass index (BMI) [Ratio] 37.51 kg/m2 [employer] [email or web address] Other [facility] Other 05-05-2023 09:15-0400 Body weight 85.69 kg [facility] [email or web address] Other [facility] Other 05-05-2023 09:15-0400 Diastolic blood pressure 72 mm[Hg] [email or web address] Other [facility] Other 05-05-2023 09:15-0400 Respiratory rate 18 /min [employer] Other [facility] Other 05-05-2023 09:15-0400 SaO2% (BldA) [Mass fraction] 97 % [facility] Other [facility] Other 05-05-2023 09:15-0400 Systolic blood pressure 147 mm[Hg] [email or web address] Other [facility] Other 04-13-2023 14:00-0400 Body height 151.13 cm Jonathan Ball Other [facility] Other 04-13-2023 14:00-0400 Body mass index (BMI) [Ratio] 39.16 kg/m2 Jonathan Ball Other [facility] Other 04-13-2023 14:00-0400 Body weight 89.45 kg Jonathan Ball Other [facility] Other 04-13-2023 14:00-0400 Diastolic blood pressure 82 mm[Hg] Jonathan Ball Other [facility] Other 04-13-2023 14:00-0400 Respiratory rate 12 /min Jonathan Ball Other [facility] Other 04-13-2023 14:00-0400 Systolic blood pressure 166 mm[Hg] Jonathan Pecabu Other [facility] Other 04-07-2023 10:00-0400 Body height 151.13 cm [employer] Other [facility] Other 04-07-2023 10:00-0400 Body mass index (BMI) [Ratio] 39.89 kg/m2 [employer] Other [facility] Other 04-07-2023 10:00-0400 Body weight 91.13 kg [employer] Other [facility] Other 04-07-2023 10:00-0400 Diastolic blood pressure 81 mm[Hg] [employer] Other [facility] Other 04-07-2023 10:00-0400 Respiratory rate 18 /min [employer] Other [facility] Other 04-07-2023 10:00-0400 SaO2% (BldA) [Mass fraction] 95 % [employer] Other [facility] Other 04-07-2023 10:00-0400 Systolic blood pressure 171 mm[Hg] [employer] Other [facility] Other 03-04-2023 11:00-0400 Body height 151.13 cm Jonathan Pecabu Other [facility] Other 03-04-2023 11:00-0400 Body mass index (BMI) [Ratio] 39.48 kg/m2 Jonathan Pecabu Other [facility] Other 03-04-2023 11:00-0400 Body weight 90.18 kg Jonathan Ball Other [facility] Other 03-04-2023 11:00-0400 Diastolic blood pressure 83 mm[Hg] Jonathan Ball Other [facility] Other 03-04-2023 11:00-0400 Respiratory rate 12 /min Jonathan Ball Other [facility] Other 03-04-2023 11:00-0400 Systolic blood pressure 149 mm[Hg] Jonathan Ball Other [facility] Other 02-17-2023 08:45-0400 Body height 151.13 cm Nabor Stollisle II Other [facility] Other 02-17-2023 08:45-0400 Body mass index (BMI) [Ratio] 38.92 kg/m2 Nabor Converse II Other [facility] Other 02-17-2023 08:45-0400 Body weight 88.91 kg Nabor Converse II Other [facility] Other 11-25-2022 09:30-0400 Body height 151.13 cm Jonathan Ball Other [facility] Other 11-25-2022 09:30-0400 Body mass index (BMI) [Ratio] 39.04 kg/m2 Jonathan Ball Other [facility] Other 11-25-2022 09:30-0400 Body weight 89.18 kg Jonathan Ball Other [facility] Other 11-25-2022 09:30-0400 Diastolic blood pressure 82 mm[Hg] Jonathan Ball Other [facility] Other 11-25-2022 09:30-0400 Respiratory rate 16 /min Jonathan Ball Other [facility] Other 11-25-2022 09:30-0400 SaO2% (BldA) [Mass fraction] 97 % Jonathan Ball Other [facility] Other 11-25-2022 09:30-0400 Systolic blood pressure 144 mm[Hg] Jonathan Ball Other [facility] Other 10-15-2022 10:15-0500 Body height 151.13 cm George Ryan Other [facility] Other 10-15-2022 10:15-0500 Body mass index (BMI) [Ratio] 36.34 kg/m2 George Ryan Other [facility] Other 10-15-2022 10:15-0500 Body temperature 97.8 [degF] George Ryan Other [facility] Other 10-15-2022 10:15-0500 Body weight 83.01 kg George Ryan Other [facility] Other 10-15-2022 10:15-0500 Diastolic blood pressure 78 mm[Hg] George Ryan Other [facility] Other 10-15-2022 10:15-0500 SaO2% (BldA) [Mass fraction] 97 % George Ryan Other [facility] Other 10-15-2022 10:15-0500 Systolic blood pressure 132 mm[Hg] George Ryan Other [facility] Other 10-02-2022 14:45-0500 Body height 151.13 cm Jonathan Ball Other [facility] Other 10-02-2022 14:45-0500 Body mass index (BMI) [Ratio] 36.34 kg/m2 Jonathan Ball Other [facility] Other 10-02-2022 14:45-0500 Body weight 83.01 kg Jonathan Ball Other [facility] Other 10-02-2022 14:45-0500 Diastolic blood pressure 68 mm[Hg] Jonathan Ball Other [facility] Other 10-02-2022 14:45-0500 Respiratory rate 16 /min Jonathan Ball Other [facility] Other 10-02-2022 14:45-0500 Systolic blood pressure 130 mm[Hg] Jonathan Ball Other [facility] Other 10-01-2022 09:45-0500 Body height 151.13 cm George Ryan Other [facility] Other 10-01-2022 09:45-0500 Body mass index (BMI) [Ratio] 35.74 kg/m2 George Ryan Other [facility] Other 10-01-2022 09:45-0500 Body temperature 97.8 [degF] George Ryan Other [facility] Other 10-01-2022 09:45-0500 Body weight 81.65 kg George Ryan Other [facility] Other 10-01-2022 09:45-0500 Diastolic blood pressure 84 mm[Hg] George Del Realsj Other [facility] Other 10-01-2022 09:45-0500 SaO2% (BldA) [Mass fraction] 91 % George Del Realsj Other [facility] Other 10-01-2022 09:45-0500 Systolic blood pressure 148 mm[Hg] George Del Realsj Other [facility] Other 09-21-2022 10:15-0500 Body height 151.13 cm Jonathan Ball Other [facility] Other 09-21-2022 10:15-0500 Body mass index (BMI) [Ratio] 36.34 kg/m2 Jonathan Ball Other [facility] Other 09-21-2022 10:15-0500 Body weight 83.01 kg Jonathan Ball Other [facility] Other 09-21-2022 10:15-0500 Diastolic blood pressure 90 mm[Hg] Jonathan Ball Other [facility] Other 09-21-2022 10:15-0500 Respiratory rate 16 /min Jonathan Ball Other [facility] Other 09-21-2022 10:15-0500 Systolic blood pressure 148 mm[Hg] Jonathan Ball Other [facility] Other 09-17-2022 13:00-0500 Body height 151.13 cm George Shelby Other [facility] Other 09-17-2022 13:00-0500 Body mass index (BMI) [Ratio] 35.35 kg/m2 George Ryan Other [facility] Other 09-17-2022 13:00-0500 Body temperature 97.1 [degF] George Ryan Other [facility] Other 09-17-2022 13:00-0500 Body weight 80.74 kg George Del Realsj Other [facility] Other 09-17-2022 13:00-0500 Diastolic blood pressure 82 mm[Hg] George Del Realsj Other [facility] Other 09-17-2022 13:00-0500 SaO2% (BldA) [Mass fraction] 97 % George Del Realsj Other [facility] Other 09-17-2022 13:00-0500 Systolic blood pressure 160 mm[Hg] George Ryan Other [facility] Other 05-28-2022 09:15-0400 Body height 151.13 cm Nabor Converse II Other [facility] Other 05-28-2022 09:15-0400 Body mass index (BMI) [Ratio] 35.35 kg/m2 Nabor Converse II Other [facility] Other 05-28-2022 09:15-0400 Body weight 80.74 kg Nabor Converse II Other [facility] Other 04-16-2022 09:15-0400 Body height 151.13 cm Nabor Converse II Other [facility] Other 04-16-2022 09:15-0400 Body mass index (BMI) [Ratio] 35.35 kg/m2 Nabor Stollisle II Other [facility] Other 04-16-2022 09:15-0400 Body weight 80.74 kg Nabor Stollisle II Other [facility] Other 03-18-2022 11:45-0400 Body height 151.13 cm Nabor Rodríguezle II Other [facility] Other 03-18-2022 11:45-0400 Body mass index (BMI) [Ratio] 35.54 kg/m2 Nabor Rodríguezle II Other [facility] Other 03-18-2022 11:45-0400 Body weight 81.19 kg Nabor Nelson II Other [facility] Other 03-03-2022 11:53-0400 Heart rate 95 /min DO Jonathan Ball Work Phone: [facility] 03-03-2022 11:53-0400 Respiratory rate 20 /min DO Jonathan Ball Work Phone: [facility] 03-03-2022 11:25-0400 Body temperature 99.2 [degF] DO Jonathan Ball Work Phone: [facility] 03-03-2022 11:25-0400 Diastolic blood pressure 81 mm[Hg] DO Jonathan Ball Work Phone: [facility] 03-03-2022 11:25-0400 Inhaled oxygen flow rate 2 L/min DO Jonathan Ball Work Phone: [facility] 03-03-2022 11:25-0400 SaO2% (BldA) [Mass fraction] 95 % DO Jonathan Ball Work Phone: [facility] 03-03-2022 11:25-0400 Systolic blood pressure 149 mm[Hg] DO Jonathan Ball Work Phone: [facility] 03-03-2022 06:00-0400 Body weight 83.8 kg DO Jonathan Ball Work Phone: [facility] 03-02-2022 10:15-0400 Body height 153.67 cm DO Jonathan Ball Work Phone: [facility] 03-02-2022 10:15-0400 Body mass index (BMI) [Ratio] 35.4 kg/m2 DO Jonathan Ball Work Phone: [facility] 02-11-2022 15:00-0400 Body height 151.13 cm Nabor Converse II Other [facility] Other 02-11-2022 15:00-0400 Body mass index (BMI) [Ratio] 35.74 kg/m2 Nabor Converse II Other [facility] Other 02-11-2022 15:00-0400 Body weight 81.65 kg Nabor Omar II Other [facility] Other 11-20-2021 14:00-0500 Body height 151.13 cm Nabor Converse II Other [facility] Other 11-20-2021 14:00-0500 Body mass index (BMI) [Ratio] 36.54 kg/m2 Nabor Omar II Other [facility] Other 11-20-2021 14:00-0500 Body weight 83.46 kg Nabor Converse II Other [facility] Other Encounters Encounter Date Encounter Type Care Provider Facility Start: 09-21-2023 IBT FOR OBESITY GROU P 2-10 30M Massiel Pereira [facility] Start: 09-21-2023 End: 09-21-2023 ambulatory Olayinka Ramos [employer] Other Start: 09-14-2023 End: 09-14-2023 ambulatory Massiel Fitt Other [employer] Other Start: 09-14-2023 IBT FOR OBESITY GROU P 2-10 30M Massiel Fitt [facility] Start: 09-10-2023 End: 09-10-2023 ambulatory Jonathan Smith Other [employer] Other Start: 09-10-2023 Telephone encounter Jonathan Smith FP [facility] Start: 09-09-2023 End: 09-09-2023 ambulatory Jonathan Earl Other [employer] Other Start: 09-09-2023 Office outpatient vi sit 25 minutes Jonathan Ball [facility] Start: 08-19-2023 End: 08-19-2023 ambulatory Olayinka Ramos Other [employer] Other Start: 08-19-2023 Follow-up encounter Olayinkawalt Ramos [facility] Start: 08-18-2023 End: 08-18-2023 ambulatory Jonathan Smith Other [employer] Other Start: 08-18-2023 Telephone encounter Jonathan Smith FP [facility] Start: 08-17-2023 End: 08-17-2023 ambulatory Jonathan Smith Other [employer] Other Start: 08-17-2023 Office outpatient vi sit 15 minutes Jonathan Ball [facility] Start: 08-03-2023 End: 08-03-2023 ambulatory Massiel Fitt Other [employer] Other Start: 08-03-2023 IBT FOR OBESITY GROU P 2-10 30M Massiel [facility] Start: 07-14-2023 End: 07-14-2023 ambulatory Jonathan Earl Other [employer] Other Start: 07-14-2023 Telephone encounter Jonathan [facility]LL [facility] Start: 07-08-2023 End: 07-08-2023 ambulatory Olayinka Ramos Other [employer] Other Start: 07-08-2023 Telephone encounter Olayinka Keller [facility] Start: 07-06-2023 End: 07-06-2023 ambulatory Massiel Fitt Other [employer] Other Start: 07-06-2023 IBT FOR OBESITY GROU P 2-10 30M [facility] Start: 07-02-2023 End: 07-02-2023 ambulatory Jonathan Smith Other [employer] Other Start: 07-02-2023 Telephone encounter Jonathan CONNELL G [facility] Start: 06-16-2023 End: 06-16-2023 ambulatory Olayinka Ramos Other [employer] Other Start: 06-16-2023 Follow-up encounter Olayinka Keller [facility] Start: 06-09-2023 End: 06-09-2023 ambulatory Jonathan Smith Other [employer] Other Start: 06-09-2023 Office outpatient vi sit 25 minutes Jonathan Smith [facility] Start: 06-09-2023 Telephone encounter Jonathan CONNELL [facility] Start: 06-01-2023 End: 06-01-2023 ambulatory Massiel Fitt Other [employer] Other Start: 06-01-2023 IBT FOR OBESITY GROU P 2-10 30M [facility] Start: 05-25-2023 End: 05-25-2023 ambulatory Jonathan Smith Other [employer] Other Start: 05-25-2023 Telephone encounter Jonathan Smith FP [facility] Start: 05-12-2023 End: 05-12-2023 ambulatory Massiel Pereira Other [employer] Other Start: 05-12-2023 IBT FOR OBESITY GROU P 2-10 30M Massiel [facility] Start: 05-05-2023 End: 05-05-2023 ambulatory Olayinka Ramos Other [employer] Other Start: 05-05-2023 Follow-up encounter Olayinka Keller [facility] Start: 05-05-2023 Telephone encounter Olayinka Keller [facility] Start: 04-24-2023 End: 04-24-2023 ambulatory Jonathan Smith Other [employer] Other Start: 04-24-2023 Telephone encounter Jonathan CONNELL [facility] Start: 04-21-2023 End: 04-21-2023 ambulatory Olayinka Lucille Ramos Facility:[facility] Start: 04-13-2023 End: 04-13-2023 ambulatory Jonathan Smith Other [employer] Other Start: 04-13-2023 Office outpatient vi sit 25 minutes Jonathan Smith [facility] Start: 04-08-2023 End: 04-08-2023 ambulatory Jonathan Earl Other [employer] Other Start: 04-08-2023 Telephone encounter Jonathan CONNELL [facility] Start: 04-07-2023 End: 04-07-2023 ambulatory Olayinka Ramos Other [employer] Other Start: 04-07-2023 Nutrition therapy Olayinka Ramos [facility] Start: 03-12-2023 End: 03-12-2023 ambulatory Jonathan Earl Other [employer] Other Start: 03-12-2023 Telephone encounter Jonathan Smith [facility] Start: 03-04-2023 End: 03-04-2023 ambulatory Jonathan Smith Other [employer] Other Start: 03-04-2023 Patient encounter procedure Jonathan Smith [facility] Start: 03-03-2023 Office outpatient vi sit 15 minutes [facility] Start: 03-03-2023 End: 03-03-2023 ambulatory Jonathan Smith Facility:[facility] Start: 03-03-2023 End: 03-03-2023 ambulatory DO Jonathan Ball Work Phone: [facility] Work Phone: Start: 03-03-2023 End: 03-03-2023 Patient encounter procedure DO Jonathan Ball Work Phone: [facility] Start: 02-17-2023 End: 02-17-2023 Patient encounter procedure DO Jonathan Ball Work Phone: [facility] Start: 02-17-2023 End: 02-17-2023 ambulatory Jonathan Smith Facility:[facility] Start: 02-17-2023 End: 02-17-2023 ambulatory DO Jonathan Ball Work Phone: [facility] Work Phone: Start: 02-03-2023 End: 02-03-2023 ambulatory Jonathan Smith Facility:[facility] Start: 02-03-2023 End: 02-03-2023 Patient encounter procedure DO Jonathan Ball Work Phone: [facility]-Lab [address] Work Phone: Start: 01-21-2023 End: 01-22-[address] NABOR WILSON Facility: Start: 11-27-2022 Telephone encounter Jonathan CONNELL [facility] Start: 11-27-2022 End: 11-28-[address] NABOR WILSON Located Within [facility] [employer] Other Start: 11-25-2022 End: 11-25-2022 ambulatory Jonathan Smith Other [employer] Other Start: 11-25-2022 Office outpatient vi sit 25 minutes Jonathan Ball [facility] Start: 10-28-2022 End: 10-28-2022 ambulatory Kiana Cairosales Other [employer] Other Start: 10-28-2022 Office outpatient vi sit 15 minutes Kiana Ayalaroslaes [facility] Start: 10-15-2022 End: 10-15-2022 ambulatory George Ryan Other [employer] Other Start: 10-15-2022 Office outpatient vi sit 10 minutes George Langsj [facility] V[facility] Surgery Start: 10-08-2022 End: 10-08-2022 ambulatory DO Jonathan Ball Work Phone: [facility] Work Phone: Start: 10-08-2022 End: 10-08-2022 Patient encounter procedure DO Jonathan Ball Work Phone: [facility]-Lab [address] Work Phone: Start: 10-07-2022 End: 10-07-2022 ambulatory Kiana Jeimy Other [employer] Other Start: 10-07-2022 Office outpatient vi sit 15 minutes Kiana Jeimy [facility] Start: 10-05-2022 End: 10-06-[address] NABOR WILSON Facility:[facility] Start: 10-05-2022 End: 10-05-2022 ambulatory DO Jonathan Ball Work Phone: [facility] Work Phone: Start: 10-05-2022 End: 10-05-2022 Patient encounter procedure DO Jonathan Ball Work Phone: [facility]-CT Scan [address] [place] Work Phone: Start: 10-02-2022 End: 10-02-2022 ambulatory Jonathan Smith Other [employer] Other Start: 10-02-2022 Office outpatient vi sit 15 minutes Jonathan Smith [facility] Start: 10-01-2022 End: 10-01-2022 ambulatory George Ryan Other [employer] Other Start: 10-01-2022 Office outpatient vi sit 25 minutes George Ryan [facility] Vascular Surgery Start: 09-29-[address] Jonathan Smith Facility:[facility] Start: 09-28-2022 End: 09-28-2022 ambulatory Jonathan Earl Other [employer] Other Start: 09-28-2022 Telephone encounter Jonathan Smith [facility] Start: 09-24-2022 End: 09-24-2022 ambulatory DO Jonathan Smith Work Phone: [facility] Work Phone: Start: 09-24-2022 End: 09-24-2022 Patient encounter procedure DO Jonathan Smith Work Phone: [facility]-Electrodiagnostics Work Phone: Start: 09-24-[address] Jonathan Smith Facility:[facility] Start: 09-23-2022 End: 09-23-2022 Patient encounter procedure DO Jonathan Smith Work Phone: [facility] Start: 09-23-2022 End: 09-23-2022 ambulatory DO Jonathan Smith Work Phone: [facility] Work Phone: Start: 09-23-2022 Office outpatient ne w 45 minutes Kiana Munson [facility] Start: 09-21-2022 End: 09-21-2022 ambulatory Jonathan Smith Other [employer] Other Start: 09-21-2022 Office outpatient vi sit 25 minutes Jonathan Smith [facility] Start: 09-17-2022 Office outpatient vi sit 25 minutes George Ryan [facility] Vascular Surgery Start: 09-17-2022 End: 09-17-2022 ambulatory DO Jonathan Smith Work Phone: [facility] Work Phone: Start: 09-17-2022 End: 09-17-2022 Patient encounter procedure DO Jonathan Smith Work Phone: [facility]-Ultrasound [facility] Start: 09-08-2022 End: 09-08-2022 ambulatory DO Jonathan Smith Work Phone: [facility] Work Phone: Start: 09-08-2022 End: 09-08-2022 Patient encounter procedure DO Jonathan Smith Work Phone: [facility]CT [facility] [place] Work Phone: Start: 08-31-2022 End: 09-01-[address] NABOR WILSON Facility:[facility] Start: 08-24-2022 Adult health examination Olayinka Ramos Other [employer] Other Start: 08-24-2022 Pre-procedure evaluation check Olayinka Ramos Other [employer] Other Start: 08-14-2022 End: 08-14-[address] JONATHAN SMITH Facility:[facility] Start: 08-13-2022 End: 08-14-[address] JONATHAN SMITH Facility:[facility] Start: 08-04-2022 End: 08-05-[address] NABOR WILSON Facility:[facility] Start: 06-09-2022 End: 06-10-[address] JONATHAN SMITH Facility:[facility] Start: 05-28-2022 (Post-Op) Post-Op Nabor Nelson II [facility] Start: 05-28-2022 End: 05-28-2022 ambulatory Nabor Nelson II Other [employer] Other Start: 05-28-2022 End: 05-28-2022 Patient encounter procedure DO Jonathan Earl Work Phone: [facility] Start: 05-17-2022 End: 05-20-2022 Evaluation and management of inpatient DR YOVANA RG Facility:[facility] Start: 04-16-2022 (Post-Op) Post-Op Nabor Converse II [facility] Start: 04-16-2022 End: 04-16-2022 ambulatory Nabor Rodríguezle II Other [employer] Other Start: 04-16-2022 End: 04-16-2022 Patient encounter procedure DO Jonathan Smith Work Phone: [facility] Start: 03-26-2022 (Post-Op) Post-Op Nabor Converse II [facility] Start: 03-26-2022 End: 03-26-2022 ambulatory Nabor Converse II Other [employer] Other Start: 03-24-2022 End: 04-15-[address] JONATHAN SMITH Facility:[facility] Start: 03-18-2022 (Post-Op) Post-Op Nabor Converse II [facility] Start: 03-18-2022 End: 03-18-2022 ambulatory Nabor Omar II Other [employer] Other Start: 03-18-2022 Telephone encounter Nabor Converse II [facility] Start: 03-04-2022 End: 03-04-2022 ambulatory Nabor Converse II Other [employer] Other Start: 03-04-2022 Telephone encounter Nabor Converse II [facility] Start: 03-02-2022 End: 03-03-2022 Admission to same day surgery center DO Jonathan Earl Work Phone: [facility] [address] [place] Start: 02-27-2022 End: 02-27-2022 ambulatory Nabor Converse II Other [employer] Other Start: 02-27-2022 Telephone encounter Nabor Converse II [facility] Start: 02-26-2022 End: 02-26-2022 Patient encounter procedure DO Jonathan Ball Work Phone: [facility]-Pre-Surgical Testing Start: 02-20-2022 (Prolonged) Prolonge d Services Nabor Converse II [facility] Start: 02-20-2022 End: 02-20-2022 ambulatory Nabor Converse II Other [employer] Other Start: 02-11-2022 End: 02-11-2022 ambulatory Nabor Omar II Other [employer] Other Start: 02-11-2022 Patient encounter procedure Nabor Rodríguezle II [facility] Start: 01-30-2022 End: 01-31-[address] NONE LISTED REQUEST Facility: Start: 01-15-2022 End: 01-15-2022 ambulatory Nabor Omar II Other [employer] Other Start: 01-15-2022 Telephone encounter Nabor Omar II [facility] Start: 11-20-2021 End: 11-20-2021 ambulatory Nabor Omar II Other [employer] Other Start: 11-20-2021 Office outpatient ne w 60 minutes Nabor Converse II [facility] Procedures Date Procedure Procedure Detail Performing [...] X-ray of left knee DO B enjamin Pecabu Work Phone: Start: 04-16-2022 X-ray of left knee DO B enjamin Pecabu Work Phone: Start: 03-02-2022 Total replacement of left knee joint DO Jonathan Pecabu Work Phone: Start: 03-02-2022 X-ray of left knee DO B enjamin Pecabu Work Phone: Start: 10-04-2018 Preoperative cardiov ascular examination [employer] Other Start: 10-04-2018 Preoperative pulmona ry examination [employer] Other Start: 06-29-2017 Screening for osteoporosis [employer] Other Start: 07-08-2015 General examination of patient [email or web address] Other Depression screening [facility] [email or web address] Other Plan of Treatment Date Care Activity Detail Author Start: 10-08-2022 Hemolytic complement CH50 level [facility] Start: 10-08-2022 [facility] Start: 03-03-[address] [facility] Work Phone: Start: 03-02-2022 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 [facility] Work Phone: Start: 03-02-2022 Hospital admission [facility] Work Phone: Complement C3 [Mass/ volume] in Serum or Plasma [facility] Complement C4 [Mass/ volume] in Serum or Plasma [facility] Cryofibrinogen [Pres ence] in Plasma [facility] Cryoglobulin [Presence] in Serum [facility] IgA [Mass/volume] in Serum or Plasma [facility] IgE [Units/volume] i n Serum or Plasma [facility] IgG [Mass/volume] in Serum or Plasma [facility] IgM [Mass/volume] in Serum or Plasma [facility] Patient referral [facility] Work Phone: Immunizations Immunization Date Immunization Notes Care Provider Rudolph de la o 07-23-2023 influenza, high dose seasonal, preservative-free Massiel Sunnyosiel Other Located Within [facility] [employer] Other 07-09-2021 COVID-19 mRNA-1273 (Moderna) DO [employer] Work Phone: [facility] 06-16-2021 influenza virus vaccine, split virus (incl. purified surface antigen) Olayinka Ramos Other [email or web address] [facility] [employer] Other 10-16-2020 COVID-19 mRNA-1273 (Moderna) DO [employer] Work Phone: [facility] 09-19-2020 COVID-19 mRNA-1273 (Moderna) DO [employer] Work Phone: [facility] 05-21-2020 pneumococcal conjuga te vaccine, 13 valent Olayinka Ramos Other [email or web address] [facility] [employer] Other 09-16-2015 pneumococcal polysaccharide vaccine, 23 valent Jonathan Smith Other [email or web address] [facility] [employer] Other 06-28-2013 tetanus and diphther ia toxoids, adsorbed, preservative free, for adult use (5 Lf of tetanus toxoid and 2 Lf of diphtheria toxoid) Olayinka Ramos Other [employer] Other 06-14-2012 zoster vaccine, live Benjami corwin Smith Other [employer] Other 08-07-2009 pneumococcal conjuga te vaccine, 7 valent Jonathan Smith Other [employer] Other 07-17-2009 pneumococcal polysaccharide vaccine, 23 valent Olayinka Ramos Other [employer] Other Payers Date Payer Category Payer Self-pay [id number] 1960 Medicare [id number] 2.1 [id number] 1960 Self-pay [id number] 1960 Unknown [id number] 2. [id number] 1954 Unknown [id number] 2.16. 840.1.805766.3.579.2.356 1954 Unknown [id number] 2.16.84 0.1.764846.3.579.2.593 1954 Unknown [id number] 2.16.84 0.1.765891.3.579.2.593 1954 Unknown [id number] 2.16.84 0.1.985871.3.579.2.593 1954 Unknown [id number] 2.16.84 0.1.819759.3.579.2.593 1954 Unknown [id number] 2.16.84 0.1.518657.3.579.2.593 1954 Unknown [id number] 2.16.84 0.1.189442.3.579.2.593 1954 Unknown [id number] 2.16.84 0.1.402960.3.579.2.593 1954 Unknown [id number] 2.16.84 0.1.626096.3.579.2.593 1954 Unknown [id number] 2.16.84 0.1.918357.3.579.2.593 1954 Unknown [id number] 2.16.84 0.1.912522.3.579.2.593 Unknown [facility] [id number] Unknown Unknown [id number] 2.16.84 0.1.496497.3.579.2.593 Unknown [id number] 2.16.8 40.1.766419.3.579.2.531 Unknown [id number] 2.16.8 40.1.851064.3.579.2.531 Unknown [id number] 2.16.8 40.1.394831.3.579.2.531 Unknown [id number] 2.16.8 40.1.176585.3.579.2.531 Unknown [id number] 2.16.8 40.1.250528.3.579.2.531 Social History Date Type Detail Facility Unknown if ever smoked [employer] Other Sex Assigned At Sex Assigned At Bir th [employer] Other Start: 03-02-2022 End: 03-02-2022 Tobacco smoking status OKIS Ex-smoker (finding) [facility] Start: 1955 Sex Assigned At Female F [facility] Medical Equipment Procedure Code Equipment Code Equipment Origin al Text Equipment Identifier Dates Arthroplasty, knee, total, minimally invasive Orthopaedic cement, non-medicated [id number] FDA Start: 03-02-2022 Arthroplasty, knee, total, minimally invasive Orthopaedic cement, non-medicated ()[id number] FDA Start: 03-02-2022 Arthroplasty, knee, total, minimally invasive Uncoated knee femur prosthesis ()[id number] FDA Start: 03-02-2022 Arthroplasty, knee, total, minimally invasive Tibial insert ()[id number] FDA Start: 03-02-2022 Arthroplasty, knee, total, minimally invasive Uncoated knee tibia prosthesis, metallic ()[id number] FDA Start: 03-02-2022 Arthroplasty, knee, total, minimally invasive Polyethylene patella prosthesis ()[id number] FDA Start: 03-02-2022 Arthroplasty, knee, total, minimally invasive Knee stem ()[id number] FDA Start: 03-02-2022 Goals Date Patient Goal Desired Activity /State Functional Status Date Assessment Result Facility 03-03-2022 Functional status Patient at Baseline [facility] Work Phone: Mental Status Date Assessment Result Facility 03-03-2022 Cognitive function Cognitive Sta tus Patient at Baseline [facility] Work Phone: Clinical Notes 11-20-2021 to 09-21-2023 Note Date & Type Note Facility 09-21-2023 Evaluation note Encounter Date Diagnosis Assessment Notes Sep, Obesity, unspecified classification, unspecified obesity type, unspecified whether serious comorbidity present (ICD-10 - E66.9) Sep, BMI 33.0-33.9,adult (ICD-10 - Z68.33) Sep, Other Summary of Visit: (A) Overview of what the gut consists of (stomach, intestines) (B) Gut microbiome (C) How nutrition, exercise, sleep, and stress impact gut health (D) Probiotics and Prebiotics [employer] Other 01-02-2024 Evaluation note* Encounter Date Diagnosis Assessment Notes Treatment Notes Treatment Clinical Notes Sep, Obesity, unspecified classification, unspecified obesity type, unspecified whether serious comorbidity present (ICD-10 - E66.9) Sep, BMI 33.0-33.9,adult (ICD-10 - Z68.33) Sep, Other Summary of Visi t: (A) Acute vs Chronic Inflammation (B) Inflammation's connection to chronic disease (C) Food's relationship to inflammation (D) Anti Inflammatory foods [employer] Other 2023 Evaluation note* Encounter Date Diagnosis Assessment Notes Treatment Notes Treatment Clinical Notes Aug, Cervical spondylosis (ICD-10 - M47.812) [employer] Other 12-28-2023 Evaluation note* Encounter Date Diagnosis [...] use, the patient reduces the risk for AL, CVA, HTN, cardiac dysrhythmias and sudden cardiac [...] index [BMI] 35.0-35.9, adult (ICD-10 - Z68.35) [employer] Other 12-07-2023 Evaluation note* Encounter Date Diagnosis [...] Patient without side effect-A1c 5.9% February 2023 -[employer] membership, working with physical fitness trainer -Follow up in clinic in 12 weeks -Patient reports highest A1c of 6.7% subjectivelyThis note was created with voice recognition software. Please excuse errors in border guard. Aug, Dietary surveillance and counseling (ICD-10 - [...] 6.7% subjectivelyContinue with Ozempic. Denies side effects [employer] Other 12-05-2023 Evaluation note* Encounter Date Diagnosis [...] needed. Notify office w/ any s/s infection [employer] Other 11-21-2023 Evaluation note* Encounter Date Diagnosis [...] variety means for them and tip sharing [employer] Other 10-24-2023 Evaluation note* Encounter Date Diagnosis [...] patient set personal goal using given handout. [employer] Other 10-04-2023 Evaluation note* Encounter Date Diagnosis [...] 2 mg once weekly.-A1c 5.9% February 2023 -[employer] membership, working with physical fitness trainer -Follow up in clinic in 8 weeks -Patient reports highest A1c of 6.7% subjectivelyThis note was created with voice recognition software. Please excuse errors in border guard. Jun, Dietary surveillance and counseling (ICD-10 - [...] 6.7% subjectivelyContinue with Ozempic. Denies side effects [employer] Other 09-27-2023 Evaluation note* Encounter Date Diagnosis [...] use, the patient reduces the risk for AL, CVA, HTN, cardiac dysrhythmias and sudden cardiac [...] [BMI ] 35.0-35.9, adult (ICD-10 - Z68.35) [employer] Other 09-19-2023 Evaluation note* Encounter Date Diagnosis [...] fat, etc.) (D) Identifying whole grain products [employer] Other 09-12-2023 Evaluation note* Encounter Date Diagnosis Assessment Notes Treatment Notes Treatment Clinical Notes May, Mucopurulent chronic bronchitis (ICD-10 - J41.1) [employer] Other 08-30-2023 Evaluation note* Encounter Date Diagnosis [...] Patient set the following goals: NOT REVIEWED [employer] Other 08-23-2023 Evaluation note* Encounter Date Diagnosis [...] titrate up as tolerated-A1c 5.9% February 2023 -[employer] membership -Follow up in clinic in 6 weeks -Patient reports highest A1c of 6.7% subjectivelyThis note was created with voice recognition software. Please excuse errors in border guard. Apr, Dietary surveillance and counseling (ICD-10 - [...] with the patient, and documenting clinical information. [employer] Other 08-12-2023 Evaluation note* Encounter Date Diagnosis Assessment Notes Treatment Notes Treatment Clinical Notes Apr, PSVT (paroxysmal supraventricular tachycardia) (ICD-10 - I47.1) [employer] Other 08-01-2023 Evaluation note* Encounter Date Diagnosis [...] use, the patient reduces the risk for AL, CVA, HTN, cardiac dysrhythmias and sudden cardiac [...] PSVT (paroxysmal supraventricular tachycardia) (ICD-10 - I47.1) [employer] Other 07-26-2023 Evaluation note* Encounter Date Diagnosis [...] voice recognition software. Please excuse errors in border guard. Mar, Dietary surveillance and counseling (ICD-10 - [...] with the patient, and documenting clinical information. [employer] Other 06-22-2023 Evaluation note* Encounter Date Diagnosis [...] use, the patient reduces the risk for AL, CVA, HTN, cardiac dysrhythmias and sudden cardiac [...] - Z85.3) B/L mastectomy. No s/s recurrence [employer] Other 06-21-2023 Evaluation note* Encounter Date Diagnosis [...] tolerated the injection well without adverse reaction. [employer] Other 06-07-2023 Evaluation note* Encounter Date Diagnosis Assessment Notes Treatment Notes Treatment Clinical Notes Feb, Aftercare following joint replacement surgery (ICD-10 - Z47.1) Feb, Presence of left artificial knee joint (ICD-10 - Z96.652) Feb, Other [facility] [facility] at [facility] on 03/02/2022 Happy with surgical result Follow up as needed with standing AP and lateral xrays of the left knee Patient instructed to call with any questions or concerns. [employer] Other 03-17-2023 Evaluation note* Encounter Date Diagnosis Assessment Notes Treatment Notes Treatment Clinical Notes Nov, Stage 3a chronic kidney disease (ICD-10 - N18.31) [employer] Other 03-15-2023 Evaluation note* Encounter Date Diagnosis [...] use, the patient reduces the risk for AL, CVA, HTN, cardiac dysrhythmias and sudden cardiac [...] appears to be in remission Restarting biologics. [employer] Other 02-15-2023 Evaluation note* Encounter Date Diagnosis [...] dorsal aspect of her right ring finger. [employer] Other 02-02-2023 Evaluation note* Encounter Date Diagnosis [...] plan. All of her questions were addressed. [employer] Other 01-25-2023 Evaluation note* Encounter Date Diagnosis Assessment Notes Treatment Notes Treatment Clinical Notes Sep, Lesion of finger (ICD-10 - L98.9) Patient is progressing well. Continue local wound care as previously instructed with neosporin. Continue blood thinner as prescribed. Continue to follow up with vascular for blood flow tests and rheumatology. Call with questions/concerns. Sep, Ischemia (ICD-10 - I99.8) [employer] Other 01-20-2023 Evaluation note* Encounter Date Diagnosis [...] otherwise completely resolved. Etiology remains a mystery [employer] Other 01-19-2023 Evaluation note* Encounter Date Diagnosis [...] thrombus. I am recommending she see a body joiner for the severe calcification identified on her [...] specified soft tissue disorders (ICD-10 - M79.89) [employer] Other 01-16-2023 Evaluation note* Encounter Date Diagnosis Assessment Notes Treatment Notes Treatment Clinical Notes Sep, Essential (primary) hypertension (ICD-10 - I10) [employer] Other 01-11-2023 Evaluation note* Encounter Date Diagnosis [...] treatment plan. Sep, Ischemia (ICD-10 - I99.8) [employer] Other 01-09-2023 Evaluation note* Encounter Date Diagnosis [...] prior to bedtime. Weight loss. Continue PPI [employer] Other 01-05-2023 Evaluation note* Encounter Date Diagnosis [...] digits o f hand (ICD-10 - I99.8) [employer] Other 09-15-2022 Evaluation note* Encounter Date Diagnosis Assessment Notes Treatment Notes Treatment Clinical Notes May, Aftercare following joint replacement surgery (ICD-10 - Z47.1) May, Presence of left artificial knee joint (ICD-10 - Z96.652) May, Status post left knee replacement (ICD-10 - Z96.652) May, Other [facility] at [facility] on 03/02/2022 Doing well. As I explained to her I am comfortable with her restarting her rheumatological medications if her and her dental claims processor feel like she needs them. As we [...] to call with any questions or concerns. [employer] Other 08-04-2022 Evaluation note* Encounter Date Diagnosis Assessment Notes Treatment Notes Treatment Clinical Notes Apr, Aftercare following joint replacement surgery (ICD-10 - Z47.1) Apr, Presence of left artificial knee joint (ICD-10 - Z96.652) Apr, Status post left knee replacement (ICD-10 - Z96.652) Apr, Other [facility] at [facility] on 03/02/2022 Doing well. No concerns for incision at this time. I did inform the patient that I be comfortable with her restarting her rheumatoid medications at this point in the postoperative period. However, the patient would like to wait until she comes back from [place]. I think that is perfectly appropriate. Patient may continue activities as tolerated. She recently finished PT and is not planning to continue it at this time. Continue taking [id number] anti-inflammatories as needed for assistance with swelling and pain associated with the operative extremity. Follow-up in 6 weeks for repeat examination and long standing x-rays. [employer] Other 07-14-2022 Evaluation note* Encounter Date Diagnosis Assessment Notes Treatment Notes Treatment Clinical Notes Mar, Aftercare following joint replacement surgery (ICD-10 - Z47.1) Mar, Presence of left artificial knee joint (ICD-10 - Z96.652) Mar, Status post left knee replacement (ICD-10 - Z96.652) Mar, Other [facility] at [facility] on 03/02/2022 Doing really well. Zipline removed today. As we had discussed preoperatively and as her dental claims processor had recommended, we will plan for her [...] 3 view x-rays of the left knee. [employer] Other 07-06-2022 Evaluation note* Encounter Date Diagnosis Assessment Notes Treatment Notes Treatment Clinical Notes Mar, Aftercare following joint replacement surgery (ICD-10 - Z47.1) [employer] Other 07-06-2022 Evaluation note* Encounter Date Diagnosis Assessment Notes Treatment Notes Treatment Clinical Notes Mar, Aftercare following joint replacement surgery (ICD-10 - Z47.1) Mar, Presence of left artificial knee joint (ICD-10 - Z96.652) Mar, Status post left knee replacement (ICD-10 - Z96.652) Mar, Other [facility] at [facility] on 03/02/2022 Doing well. Given her history [...] 3 view x-rays of the left knee. [employer] Other 06-17-2022 Evaluation note* Encounter Date Diagnosis Assessment Notes Treatment Notes Treatment Clinical Notes Feb, Arthritis of left knee (ICD-10 - M17.12) [employer] Other 06-10-2022 Evaluation note* Encounter Date Diagnosis [...] patient could proceed with surgery safely. The financial manager was vital for surgery timing and [...] plans. Prolonged services time spent: 32 minutes [employer] Other 06-01-2022 Evaluation note* Encounter Date Diagnosis Assessment Notes Treatment Notes Treatment Clinical Notes Feb, Other osteoporosis without current pathological fracture (ICD-10 - M81.8) Feb, Arthritis of left knee (ICD-10 - M17.12) Feb, Other snf (current) drug therapy (ICD-10 - Z79.899) Feb, Other 1. Left TKA Home Medications - DVT prophylaxis: Aspirin - NSAID: Celebrex versus prednisone 5 mg x 10-day postop. She tells me she has a history of CKD but we will await her creatinine level from [facility] before making a final decision on NSAID usage perioperatively. - Disposition: Inpatient Joints Meeting Checklist - Pharmacy: [facility] bed - Approach/Technique: VANESSA - Implants: [...] would be important regarding her immunosuppressant medications. Bonifaciokat has been recommended by [facility]/Rheumatology guidelines to schedule surgery during week 5 or week 9 after the last dose. In her case, she has been off of it for 3 months. Furthermore, these guidelines recommend continued leflunomide use perioperatively. I discussed these recommendations with the patient and we are going to proceed with surgery on 03/02. [employer] Other 03-10-2022 Evaluation note* Encounter Date Diagnosis Assessment Notes Treatment Notes Treatment Clinical Notes Nov, Acute pain of left knee (ICD-10 - M25.562) Nov, Other osteoporosis without current pathological fracture (ICD-10 - M81.8) Nov, Other snf (current) drug therapy (ICD-10 - Z79.899) Nov, [...] consider doing that with leflunomide as well. [facility] [employer] Other Evaluation noteNo InformationNort [employer] Other Evaluation note* Diagnosis Onset Date Resolution Status COPD (chronic obstructive pulmonary disease) acute High cholesterol acute Hypertension acute Sleep apnea with use of cont inuous positive airway pressure (CPAP) acute Status post left knee replacement acute [facility] [employer] Work Phone: Evaluation noteNo assessment information available [facility] Work Phone: History general Narrative - Reported* Type Description [...] tunnel Release 2002 Surgical History Bilateral Mastompexy 2006 Surgical History Bilateral Ligation 2007 Surgical History Bilateral TRAM Reconstruction 2 008 Surgical History Bilateral Nipple/Areola Revisio n 2007 Surgical History Abdominal Scar Revision 2009 Surgical History Arthroscopic Meniscus Repair Ri ght Knee 2010 Surgical History Bilateral Myringotomy and Tube Placement 2012 [employer] Other History general Narrative - Reported* Type [...] of skin of nose Surgical History Tonsilectomy 1968 Surgical History Tubal Ligation 1980 Surgical History [...] Arthroscopy 202 2 Hospitalization History See Above [employer] Other History general Narrative - Reported* Type [...] Placement 2012 Surgical History Arthroscopic meniscus repair Surgical History Ganglionectomy Left Wrist 2020 Surgical History Left Total Knee Arthroplasty Hospitalization History See Above [employer] Other History general Narrative - Reported* Type [...] of skin of nose Surgical History Tonsilectomy 1968 Surgical History Tubal Ligation 1980 Surgical History [...] Arthroplasty 20 22 Hospitalization History See Above [employer] Other Hospital Discharge [facility] Work Phone: Reason for referral (narrative)* Reason Referral for fractur e of proximal phalanx of 2nd and 3rd toe of the right foot. Diagnosis 1 Closed nondisplaced fracture of proximal phalanx of lesser toe of right foot, initial encounter (S92.514A) Referral Organization [facility] Referring Provider First Name Jonathan Referring Provider Last Name Earl Referring Provider Specialty Internal Dc jasen Referred Organization [facility] Referred Provider Donta Elias Referred Address [address], [place],[address] Referred Provider Specialty Podiatry - S urgical Chiropody Referral Priority Routine General Notes Patient being referr ed for evaluation and treatment of an acute nondisplaced fracture of the proximal phalanx of the 2nd and 3rd toe of the right foot. There is mention of extension into the joint space [employer] Other Chief Complaint and Reason for Visit [...] Chief Complaint proteinuria z47.1 z96.652 Family History No Family History Records Found Relationship Condition Age at Onset Recorded Date/T andie Not Specified Pneumonia due to COVID-19 virus Unknown Myocardial infarction Unknown Chronic obstructive pulmonary disease Unk nown Hypertension Unknown father Myocardial infarction Unknown brother End-stage renal disease Unknown Advance Directives No Advanced Directives Records Found Advance Directive Response Recorded Date/ Time Advance Directives No June 17, 2017 2:12pm Advance Directive Response Recorded Date/ Time Advance Directives No June 17, 2017 1:12pm Summary Purpose Additional Source Comments REASON FOR VISIT (unrecogniz ed section and content) informLeft Knee Painpreop ap ptsH & P LEFT TOTAL KNEE [id number] InformationPOST OP MEDSNo InformationPOST OP LTK FOLLOW UP1 WK WOUND CHECK3 WEEK RECHECK6 WK WX2 WK FOLLOW UP; [facility] 09/08/22, CAROTID DUPLEX 11:30Aopen sore on ring fingerRight Ring Finger IschemiaRefillTo go over Echocardiogrambumps on left armRecheck Right Hand2 WK FOLLOW UP; CT SCAN [facility] 10/05/22Recheck Right Hand3 MONTH FOLLOW UPNo InformationRecheck LTKAWELLNESSLab/Test Results4 WEEK RECHECKInitial WMNRefillAMS Diabetes diagnosis and A1C informationdiscuss recent testing resultsNo InformationWMNWMN exerciseNo InformationrefillNo InformationNo Information6 week follow upWMNlab resultsAS OzempicNo InformationHolter ResultsNo InformationRight Foot BruisingXR resultsWMN f/u3 month Follow upRefillNo InformationNo Information Care Teams (unrecognized sec tion and content) Team Status: Inactive Member Role Status Annetta Smith DO Primary Care Provider Active Nabor Nelson II, MD Attending Provider Active Deidre Moore RN Other Provider Active Vaishali Howell RN Other Provider Active Maria E Regalado RN Other Provider Active Ebony Omalley RN Other Provider Active Radha Presley RN Other Provider Active Melvi Gonzalez , MARKUS Other Provider Active Susanne Best , MARKUS Other Provider Active Letty Hurtado MD Other Provider Active Javier Nolen MD Other Provider Active Avis Herndon E COMMERCE STRATEGIST Other Provider Active Nohemy Louis , DO [...] MD Other Provider Active Teagan Fay , BALLISTICIAN-C Other Provider Active Chung Mary MD Other [...] Team Status: Inactive Member Role Status Dates Jontahan Smith , DO Primary Care Provider Active [...] section and content) DATE CREATED AUTHOR 11/14/2022 [facility] DATE CREATED AUTHOR AUTHOR'S ORGANIZ ATION 01/25/2023 [facility] DATE CREATED AUTHOR AUTHOR'S ORGANIZ ATION 10/22/2023 [facility] FOR RECORDS PERTAINING TO PATIENTS WHO ARE [...] BE BASED ON THE PRIMARY CLINICAL RECORDS. [employer] provides no warranty or guarantee of the accuracy or completeness of information in this document.
[2023-11-16 10:52] LABS: Basophils Absolute Auto 0.1 10^3/uL (0.0-0.1); Basophils Percent Auto 0.9 % (0.2-2.0); Eosinophils Absolute Auto 0.2 10^3/uL (0.0-0.7); Eosinophils Percent Auto 3.7 % (0.9-7.0); Hematocrit 39.1 % (36.0-48.0); Hemoglobin 12.7 g/dL (12.0-16.0); Lymphocytes Absolute Auto 1.7 10^3/uL (1.2-3.8); Lymphocytes Percent Auto 29.6 % (20.5-60.0); Mean Corpuscular HGB Conc 32.5 g/dL (29.9-35.2); Mean Corpuscular Hemoglobin 29.9 pg (26.7-34.0); Mean Platelet Volume 11.7 fL (9.5-13.5); Monocytes Absolute Auto 0.5 10^3/uL (0.3-0.8); Monocytes Percent Auto 8.5 % (1.7-12.0); Neutrophils Absolute Auto 3.3 10^3/uL (1.4-6.5); Neutrophils Percent Auto 57.3 % (43.0-75.0); Platelet Count 228 10^3/uL (150-450); Red Blood Count 4.25 10^6/uL (4.20-5.40); Red Cell Distribution Width 13.1 % (11.0-15.0); White Blood Count 5.7 10^3/uL (4.0-11.0)
[2023-11-16 11:15] LABS: Alanine Aminotransferase 27 U/L (14-59); Albumin Globulin Ratio 0.9; Albumin Level 3.2 g/dL (3.4-5.0); Alkaline Phosphatase 61 U/L (46-116); Aspartate Amino Transferase 22 U/L (15-37); Bilirubin Direct 0.1 mg/dL (0.0-0.2); Bilirubin Total 0.4 mg/dL (0.2-1.0); Erythrocyte Sedimentation Rate 6 mm/hr (<=30); Estimated GFR (African America 57 (>=60); Estimated GFR (Non-African Ame 47 (>=60); Globulin 3.4 g/dL; Total Protein 6.6 g/dL (6.4-8.2)
== END 2023-11-16 10:05 | disposition home or self-care (01) ==
LOC: LAB 10:05
PROVIDERS: PCP Internal Medicine; Visit Provider Internal Medicine Rheumatology
DX: M05.79 Rheumatoid arthritis with rheumatoid factor of multiple sites without organ or systems involvement (principal); Z79.899 Other long term (current) drug therapy
CPT/HCPCS: 36415; 80076; 82565; 85025; 85652

== ENCOUNTER 2024-01-11 09:01 | Outpatient (OUT) | payer MEDICARE, OTHER, SELFPAY ==
[2024-01-11 09:51] LABS: Basophils Percent Auto 0.5 % (0.2-2.0); Eosinophils Absolute Auto 0.4 10^3/uL (0.0-0.7); Eosinophils Percent Auto 4.6 % (0.9-7.0); Hematocrit 39.2 % (36.0-48.0); Hemoglobin 12.8 g/dL (12.0-16.0); Immature Granulocytes Abs Auto 0.04 10^3/uL (0.00-0.03); Immature Granulocytes Pct Auto 0.5 % (0.0-0.5); Lymphocytes Absolute Auto 3.2 10^3/uL (1.2-3.8); Mean Corpuscular HGB Conc 32.7 g/dL (29.9-35.2); Mean Corpuscular Hemoglobin 30.3 pg (26.7-34.0); Mean Corpuscular Volume 92.7 fL (81.0-99.0); Mean Platelet Volume 11.7 fL (9.5-13.5); Monocytes Percent Auto 12.3 % (1.7-12.0); Neutrophils Absolute Auto 3.7 10^3/uL (1.4-6.5); Neutrophils Percent Auto 44.1 % (43.0-75.0); Platelet Count 269 10^3/uL (150-450); Red Blood Count 4.23 10^6/uL (4.20-5.40); Red Cell Distribution Width 13.2 % (11.0-15.0); White Blood Count 8.3 10^3/uL (4.0-11.0)
[2024-01-11 10:07] LABS: Alanine Aminotransferase 26 U/L (14-59); Albumin Globulin Ratio 0.9; Alkaline Phosphatase 67 U/L (46-116); Aspartate Amino Transferase 18 U/L (15-37); Bilirubin Direct 0.1 mg/dL (0.0-0.2); Bilirubin Total 0.4 mg/dL (0.2-1.0); Estimated GFR (African America >60 (>=60); Estimated GFR (Non-African Ame 52 (>=60); Globulin 3.2 g/dL; Total Protein 6.2 g/dL (6.4-8.2)
[2024-01-11 10:09] LABS: C Reactive Protein <0.50 mg/dL (<=0.50)
[2024-01-11 10:27] LABS: Bilirubin Urine SMALL (NEGATIVE); Blood Urine NEGATIVE (NEGATIVE); Clarity Urine CLEAR (CLEAR); Color Urine DK. YELLOW (YELLOW); Glucose Urine UA NEGATIVE (NEGATIVE); Ketones Urine TRACE mg/dL (NEGATIVE); Leukocyte Esterase Urine NEGATIVE (NEGATIVE); Nitrite Urine NEGATIVE (NEGATIVE); Protein Urine TRACE mg/dL (NEG/TRACE); Specific Gravity Urine >=1.030 (1.005-1.025)
[2024-01-11 10:52] LABS: Erythrocyte Sedimentation Rate 6 mm/hr (<=30)
[2024-01-11 11:57] LABS: Bacteria Urine NONE SEEN #/HPF (NONE SEEN); Calcium Oxalate Crystals Urine FEW; Cast Seen? NONE SEEN #/LPF (NONE SEEN); Crystals Seen? Seen #/HPF (None Seen); Mucus Urine NONE SEEN (NONE SEEN); RBC Urine NONE SEEN #/HPF (0-2); Squamous Epithelial Cell Urine FEW #/LPF (NONE/RARE); WBC Urine 0-2 #/HPF (NONE SEEN)
[2024-01-12 05:09] LABS: Complement C3, Serum 99 mg/dL (82-167); Complement C4, Serum 19 mg/dL (12-38)
[2024-01-12 12:13] LABS: Anti-dsDNA Antibodies 1 IU/mL (0-9)
[2024-01-12 13:08] LABS: Anti-CCP Ab, IgG/IgA >250 units (0-19)
[2024-01-12 15:08] LABS: Complement, Total (CH50) >60 U/mL (>41)
[2024-01-13 17:12] LABS: Antinuclear Antibodies, IFA Positive (.)
[2024-01-14 19:07] LABS: APTT 22.4 sec (.); Prothrombin Time 10.9 sec (.); Thrombin Time 21.2 sec (.)
== END 2024-01-11 09:02 | disposition home or self-care (01) ==
LOC: LAB 09:02
PROVIDERS: PCP Internal Medicine; Visit Provider Internal Medicine Rheumatology
DX: M05.79 Rheumatoid arthritis with rheumatoid factor of multiple sites without organ or systems involvement (principal); Z79.899 Other long term (current) drug therapy; R76.0 Raised antibody titer; M06.4 Inflammatory polyarthropathy
CPT/HCPCS: 36415; 80076; 81001; 82565; 85025; 85597; 85598; 85610; 85613; 85652; 85670; 85730; 85732; 86038; 86140; 86146; 86147; 86160; 86162; 86200; 86225; 86235; 86431

== ENCOUNTER 2024-02-18 08:37 | Outpatient (OUT) | payer MEDICARE, OTHER, SELFPAY ==
--- NOTE | 2024-02-18 08:40 | XR_ITS ---
[address] [address] Patient Name: XAVIER NEGRON MRN: [id number] date: 1955 Sex: F Assigned Patient Location: [facility] Current Patient Location: RAD Accession/Order Number: [id number] Exam Date: 02/18/2024 08:55 Report Date: 02/18/2024 09:41 At the request of: NABOR PEOPLES Procedure: XR DEXA axial skeleton EXAMINATION: XR DEXA axial skeleton HISTORY: Age related osteoporosis M81.0 COMPARISON: DEXA bone densitometry 12/25/2020 TECHNIQUE: Dual-energy X-ray absorptiometry (DXA) was performed. FINDINGS: SPINE ANALYSIS: Average bone mineral density is 1.377 g/cm2. T-score (standard deviation relative to young adult mean): 1.6 . (Not previously evaluated) HIP ANALYSIS: Lowest bone mineral density is within the left femoral neck, 0.699 g/cm2. T-score (standard deviation relative to young adult mean): -2.4 . -3.5% change since prior study. XR/XR DEXA axial skeleton IMPRESSION: [employer] Classification: Osteopenia - Moderate Fracture Risk FRAX: Electronically authenticated by: JERROD DICKSON Date: 02/18/2024 09:41
== END 2024-02-18 08:38 | disposition home or self-care (01) ==
LOC: RAD 08:37
PROVIDERS: Visit Provider Internal Medicine Rheumatology
DX: M81.0 Age-related osteoporosis without current pathological fracture (principal); M85.80 Other specified disorders of bone density and structure, unspecified site
CPT/HCPCS: 77080

== ENCOUNTER 2024-03-09 09:54 | Outpatient (OUT) | payer MEDICARE, OTHER, SELFPAY ==
--- OUTSIDE RECORDS SUMMARY | 2024-03-09 10:14 | XMS_ITS | CCD ---
Author Organization 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 Name Role Phone Nabor Nelson II Unavailable [phone] DO Jonathan Smith Primary Care Provider MD [...] Other Provider MD Vitaly Siddiqi Other Provider [phone] DO Nicholas Monet Other Provider MD [...] Other Provider MD Andrea Pablo Other Provider PAM Fay Other Provider [phone] MD Chung Mary Other Provider MD Garry Anglin Other Provider MD Soren Chaudhari Other Provider Unavailable MD Lidya Toledo Other Provider MD Pawel Mendoza Other Provider Isra Bhatia MD Yoshi Other Provider DO Sara Velazquez Other Provider Al Sherry Liu MD Hanhayley Other Provider DO Eliot Ortiz Other Provider MiniDO Tristen wolfe Other Provider KESHAWN Morrison Other Provider MARKUS Garcia Other Provider Unavailable DO Jonathan Smith Primary Care Provider MD Nabor Nelson II Attending Provider DO Jonathan Smith Primary Care Provider MD George Ryan Attending Provider MD Kiaan Munson R Attending Provider [phone] MD Nabor Wilson Attending Provider George Ryan Unavailable Jonathan Smith Unavailable Kiana Munson Unavailable Dr. Jonathan Smith Primary Care Lam Smith, Dr. Jonathan Aponte Primary Care Lam CORONA, NONE LISTED Consulting Unavaila helen SMITH, DR CASTILLO Primary Care Silas CORONA, NONE LISTED Attending Unavaila ble CHLOE, NONE LISTED Admitting Unavaila ble NADERER, DR YOVANA [...] BALL, DR CASTILLO Primary Care Unavailable OMARNABOR CELAYA Attending Unavailable OMARNABOR ROWE Admitting Unavailable Ball, DO Castillo Primary Care Provider [phone] MD Nabor Wilson Attending Provider MD Nabor Nelson II Attending Provider MD Kiana Munson Attending Provider Olayinka Ramos Unavailable Massiel Pereira Unavailable DO Jonathan Smith Primary Care Provider [phone] DO Olayinka Ramos Attending Provider RAYMOND SAUCEDA Attending Unavailable Jonathan Smith Primary Care Unavailable Olayinka Ramos Attending Unavailable Olayinka Ramos Admitting Unavailable Jonathan Smith Primary Care Unavailable Kiana Munson Attending Unavailable Kiana Munson Admitting Unavailable Nabor Nelson II Attending UnavailNabor Mackenzie II Admitting UnavailJonathan Mccormick Primary Care Unavailable Jonathan Smith Primary Care Unavailable Olayinka Ramos Attending Unavailable Olayinka Ramos Admitting Unavailable Allergies Allergy Classification Reported Allergen(s) Allergy Type Date of Onset Reaction(s) Facility Adhesive Tape (1 source) Adhesive Tape Substance Allergy [facility] Repository Hydroxychloroquine (1 source) Hydroxychloroquine Drug Allergy [facility] Repository Opioid Agonists (1 source) Morphine Drug Allergy [facility] Repository (20 sources) Adhesive Tape Drug allergy Unknown [facility] Other (20 sources) Hydroxychloroquine Drug Allergy rash [facility] (20 sources) Morphine Drug Allergy Unknown, Unresponsive [facility] (18 sources) Adhesive Tape Allergy to substance Redness of Skin, skin tears [facility] (1 source) Adhesive agent Drug allergy (disorder) [facility] Repository (1 source) Hydroxychloroquine Drug Allergy [facility] (1 source) Morphine Drug Allergy [facility] Repository (20 sources) Morphine Sulfate (Concentrate) *ANALGESICS - OPIOI Propensity to adverse reactions Unknown [facility] Other (3 sources) Allergies Reconciled Propensity to adverse reactions Unknown [facility] Other (3 sources) patient allergy list reviewed by nurse or physicia Propensity to adverse reactions Comment:Done [facility] Other Medications Current Medications Medication Drug Class(es) Dates [...] Subcutaneous Once weekly for 28 days Active [id number] 200 actuat albuterol 0.09 mg/actuat metered dose inhaler (20 sources) beta2-Adrenergic Agonist Start: 12-21-2023 take 2 puff(s) by mouth every four hours as needed for cough Albuterol Sulfate Active 0 .ROUTE .COMPLEX 54 December 21, 2023 4:30pm INHALE 2 PUFFS BY MOUTH EVERY 4 HOURS NEEDED FOR COUGH/SHORTNESS OF BREATH Start: 12-21-2023 End: 12-21-2023 take 1 puff(s) by inhalation every four hours Albuterol Sulfate Discontinued 2 PUFF INHALATION Every 4 hours December 21, 2023 12:00am December 21, 2023 4:30pm Start: 11-25-2022 take 2 puff(s) by in halation every four hours as needed for cough Albuterol Sulfate HFA 108 (90 Base) MCG/ACT 2 puffs Inhalation every 4 hrs as needed for cough and SOB Nov, Active Start: 02-12-2022 End: 12-08-2023 Albuterol Sulfate Discontinu ed 1 - 2 PUFF INHALATION As Directed February 12, 2022 12:00am December 08, 2023 2:36pm Anoro Ellipta 62.5-25 MCG/INH (20 sources) take 1 puff(s) by in halation once daily Anoro Ellipta 62.5-25 MCG/INH 1 puff Inhalation Once a day for 30 days Active take 1 puff(s) by inhalation onc e daily Anoro Ellipta 62.5-25 MCG/INH 1 puff Inhalation Once a day Active Aspir-81 81 MG (20 sources) take 1 tablet by khurram th once daily Aspir-81 81 MG 1 tablet [...] tablet (20 sources) HMG-CoA Reductase Inhibitor Start: 01-31-2024 take 1 tablet by mouth once daily in the evening Atorvastatin Active 0 .ROUTE .COMPLEX 90 January 31, 2024 12:42pm TAKE 1 TABLET BY MOUTH EVERY DAY IN THE EVENING Start: 02-12-2022 End: 01-31-2024 take 40 mg by mouth once daily at bedtime Atorvastatin Discontinued 40 MG PO Daily at bedtime February 12, 2022 12:00am January 31, 2024 12:42pm Calcium Carbonate-Vitamin D3 (Oyster Shell Calcium-Vit D3) 500 mg-5 mcg (200 unit) Tablet (18 sources) Start: 03-03-2022 take 1 tablet by mouth twice daily Calcium Carbonate-Vitamin D3 (Oyster Shell Calcium-Vit D3) 500 mg-5 mcg (200 unit) Tablet Active 1 TAB PO Twice daily March 02, 2022 11:00pm Start: 03-03-2022 take 1 tablet by khurram th twice daily Calcium Carbonate-Vitamin D3 (Oyster Shell Calcium-Vit D3) 500 mg-5 mcg (200 unit) Tablet Active 1 TAB PO Twice daily March 03, 2022 12:00am clopidogrel 75 mg oral tablet (20 sources) P2Y12 Platelet Inhibitor Start: 11-19-2023 take 1 tablet by mouth once daily Clopidogrel Active 0 .ROUTE .COMPLEX 90 November 19, 2023 2:40pm TAKE 1 TABLET BY MOUTH EVERY DAY FOR 90 DAYS Start: 09-03-2022 End: 11-19-2023 take 75 mg by mouth once daily Clopidogrel Discontinue d 75 MG PO Daily November 16, 2023 1:00am November 19, 2023 2:40pm empagliflozin 10 mg oral tablet (1 source) Sodium-Glucose Cotransporter 2 Inhibitor Start: 03-09-2024 take 1 tablet by mouth once daily in the morning Empagliflozin (Jardiance) 10 mg tablet Active 10 MG PO Every morning March 09, 2024 12:00am Fish Oils (20 sources) take 1 [...] each nostril Nasally Once a day Active 0.5 ml golimumab 100 mg/ml prefilled syringe (20 sources) Tumor Necrosis Factor Becca Start: 12-08-2023 End: 02-29-2024 Golimumab (Simponi) 50 mg/0.5 mL syringe Active 50 MG SUBCUT .q 8wks February 29, 2024 9:22am 12.5 mg Start: 02-12-2022 End: 02-29-2024 take 12.5 mg intravenously every two months Golimumab (Simponi Aria) 12.5 mg/mL Solution Discontinued 166 MG IV EVERY 2 MONTHS February 12, 2022 12:00am February 29, 2024 9:24am Simponi 50 MG/0. 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 take 0.5 tablet by m outh every other day Leflunomide 10 MG 1/2 tablet Orally ever y other day Active take 1 tablet by mouth every oth er day Leflunomide 20 MG 1 tablet Orally every other day Active lisinopril 20 mg oral tablet (20 sources) Angiotensin Converting Enzyme Inhibitor Start: 12-09-2023 take 20 mg by mouth twice daily Lisinopril Active 20 MG PO Twice daily December 09, 2023 3:32pm Start: 06-15-2019 End: 12-09-2023 take 20 mg by mouth once daily Lisinopril Discontinued 20 MG PO Daily June 15, 2019 12:00am December 09, 2023 3:32pm metoprolol tartrate 100 mg oral tablet (20 sources) beta-Adrenergic Becca Start: 11-16-2023 take 100 mg by mouth once daily Metoprolol Succinate Active 100 MG PO Daily November 16, 2023 1:00am Start: 04-02-2023 take 1 capsule by mo uth once daily Metoprolol Succinate 50 MG 1 capsule Orally Once a day Mar, Active take 1 tablet by khurram th once daily Metoprolol Succinate ER 100 MG TAKE 1 TABLET BY MOUTH EVERY DAY FOR 30 DAYS Active Metoprolol Succi florencia ER 50 MG TAKE 1 TABLET BY MOUTH EVERY DAY FOR 30 DAYS for 30 Active mupirocin 0.02 mg/mg topical ointment (11 sources) RNA Synthetase Inhibitor Antibacterial Start: 09-21-2022 Mupirocin 2 % 1 application Externally Twice a day for 14 days Sep, Active [place] 3-Gxt-Upy-Fish Oil (Fish Oil) 1,200 (144-216) mg Capsule (18 sources) Start: 02-12-2022 take 1 capsule by mouth once daily [place] 9-Ubp-Liy-Fish Oil (Fish Oil) 1,200 (144-216) mg Capsule Active 1200 CAP PO Daily February 11, 2022 11:00pm Start: 02-12-2022 take 1 capsule by mo [facility] once daily [place] 7-Eqk-Dwo-Fish Oil (Fish Oil) 1,200 (144-216) mg Capsule Active 1200 CAP PO Daily February 12, 2022 12:00am omeprazole 40 mg delayed release oral capsule (20 sources) Proton Pump Inhibitor Start: 07-02-2020 take 1 capsule by mouth every twelve hours Omeprazole 40 MG 1 CAPSULE Orally TWICE A DAY for 30 days Jun, Active Start: 06-15-2019 End: 11-17-2023 take 40 mg by mouth once daily Omeprazole Discontinued 40 MG PO Daily June 15, 2019 12:00am November 17, 2023 9:39am ozempic (2 mg/dose) 8 mg/3ml solution pen-injector (5 sources) Ozempic (2 MG/DO SE) 8 MG/3ML 2 mg subcutaneously once weekly Subcutaneous Once weekly Active pantoprazole 40 mg delayed release oral tablet (20 sources) Proton Pump Inhibitor Start: 01-07-20 take 1 tablet by mouth once daily at breakfast Pantoprazole Active 0 .ROUTE .COMPLEX 90 January 07, 2024 4:55pm TAKE 1 TABLET BY MOUTH DAILY ON AN EMPTY STOMACH FOLLOWED IN 30 MIN BY BREAKFAST Start: 11-16-2023 End: 01-07-2024 take 40 mg by mouth once daily Pantoprazole Discontinu ed 40 MG PO Daily November 16, 2023 1:00am January 07, 2024 4:55pm predniSONE 5 mg oral tablet (20 sources) Start: 02-11-2022 take 1 tablet by mouth once daily Prednisone 5mg 1 Tablet orally once a day for 14 days MED TO BED UPON DISCHARGE DOS: 03/02/2022 Feb, Active predniSONE Activ e probiotic (20 sources) probiotic as dir ected Active Semaglutide (Ozempic) 2 mg/dose (8 mg/3 mL) pen injector (15 sources) Start: 02-29-2024 inject 2 mg by subcutaneous injection every week Semaglutide (Ozempic) 2 mg/dose (8 mg/3 mL) pen injector Active 2 MG SUBCUT every week February 29, 2024 10:08am Start: 11-17-2023 End: 02-29-2024 inject 2 mg by subcutaneous injection every week Semaglutide (Ozempic) 2 mg/dose (8 mg/3 mL) pen injector Discontinued 2 MG SUBCUT every week 9.75 November 17, 2023 10:19am February 29, 2024 10:09am Start: 11-17-2023 inject 2 mg by subcu taneous injection every week Semaglutide (Ozempic) 2 mg/dose (8 mg/3 mL) pen injector Active 2 MG SUBCUT every week 9.75 November 17, 2023 10:19am Start: 11-16-2023 End: 11-17-2023 Semaglutide (Ozempic) 2 mg/d ose (8 mg/3 mL) pen injector Discontinued MG SUBCUT November 16, 2023 1:00am November 17, 2023 10:20am traZODone hydrochloride 50 mg oral tablet (20 sources) Serotonin Reuptake Inhibitor Start: 01-03-2024 take 1 tablet by mouth once daily at bedtime Trazodone Active 0 .ROUTE .COMPLEX 90 January 03, 2024 1:30pm TAKE 1 TABLET BY MOUTH EVERYDAY AT BEDTIME Start: 06-15-2019 End: 01-03-2024 take 50 mg by mouth at bedtime Trazodone Discontinued 50 MG PO Bedtime June 15, 2019 12:00am January 03, 2024 1:31pm 7 actuat umeclidinium 0.0625 mg/actuat / vilanterol 0.025 mg/actuat dry powder inhaler (20 sources) Anticholinergic, beta2-Adrenergic Agonist Start: 12-08-2023 Umeclidinium-Vilanterol (Anoro Ellipta) 62.5-25 mcg/actuation blister with device Active 1 INH INHALATION Daily December 08, 2023 12:00am Start: 06-15-2019 End: 12-08-2023 Umeclidinium-Vilanterol (Ano ro Ellipta) 62.5-25 mcg/actuation Blister With Device Discontinued 1 INH INHALATION Q24H June 15, 2019 12:00am December 08, 2023 2:35pm take 1 puff(s) by inhalation once daily [...] Drug Class(es) Dates Sig (Normalized) Sig (Original) acetaminophen 500 mg oral tablet (20 sources) Start: 03-03-2022 End: 12-08-2023 take 1000 mg by mouth every eight hours Acetaminophen Discontinued 1000 MG PO Q8H March 03, 2022 12:00am December 08, 2023 2:36pm Start: 02-11-2022 take 2 tablets by mo uth every eight hours for pain Acetaminophen 500 MG 2 tablets for pain Orally every 8 hrs for 30 days MED TO BED UPON DISCHARGE DOS: 03/02/2022 Feb, Active 0.8 ml adalimumab 50 mg/ml prefilled syringe [...] as needed Inhalation every 4 hrs Active amLODIPine 5 mg oral tablet (20 sources) Dihydropyridine Calcium Channel Becca Start: 12-09-2023 End: 01-13-2024 take 5 mg by mouth twice daily Amlodipine Discontinued 5 MG PO Twice daily 180 90 December 09, 2023 3:50pm January 13, 2024 4:22pm Start: 06-15-2019 End: 12-09-2023 take 5 mg by mouth once daily Amlodipine Discontinued 5 MG PO Daily June 15, 2019 12:00am December 09, 2023 3:48pm ascorbic acid 500 mg oral tablet (18 sources) Vitamin C Start: 03-03-2022 End: 11-17-2023 take 1 tablet by mouth twice daily at mealtime Ascorbic Acid (Vitamin C) (Vitamin C) 500 mg Tablet Discontinued 500 MG PO Twice daily with meals March 03, 2022 12:00am November 17, 2023 9:35am calcium carbonate 1250 mg oral tablet (20 sources) Start: 02-12-2022 End: 11-17-2023 take 1000 mg by mouth once daily Calcium Carbonate Discontinued 1000 MG PO Daily February 12, 2022 12:00am November 17, 2023 9:36am take 1 tablet by mouth every twe lve hours Calcium 500 MG 1 tablet with meals Orally Twice a day Active take 1 tablet by mouth every twe lve hours Calcium 500 MG 1 tablet with meals Orally Twice a day Active cefadroxil 500 mg oral capsule (20 sources) Cephalosporin Antibacterial Start: 03-03-2022 End: 11-17-2023 take 500 mg by mouth twice daily Cefadroxil Discontinued 500 MG PO Twice daily March 03, 2022 12:00am November 17, 2023 9:37am Start: 02-11-2022 take 1 capsule by [facility] every twelve hours Cefadroxil 500 MG 1 tablet Orally every 12 hrs for 7 days MED TO BED UPON DISCHARGE DOS: 03/02/2022 Feb, Active celecoxib 200 mg oral capsule (20 sources) Nonsteroidal Anti-inflammatory Drug Start: 02-11-2022 End: 11-17-2023 take 200 mg by mouth twice daily Celecoxib Discontinued 200 MG PO Twice daily March 03, 2022 12:00am November 17, 2023 9:36am docusate sodium 50 mg / sennosides, [facility] 8.6 mg oral tablet (20 sources) Start: 02-11-2022 End: 11-17-2023 take 2 tablets by mouth once daily Sennosides-Docusate Sodium (Stool Softener-Stimulant Laxat) 8.6-50 mg Tablet Discontinued 2 TAB PO Daily March 03, 2022 12:00am November 17, 2023 9:39am famotidine 20 mg oral tablet (20 sources) [...] as needed Orally every 4 hrs Not-Taking methylPREDNISolone 4 mg oral tablet (6 sources) Corticosteroid Start: 01-05-2024 End: 02-29-2024 take 1 tablet by mouth once Methylprednisolone (Medrol (Abad)) 4 mg tablets,dose pack Discontinued 0 PO per package directions 03 03January 05, 2024 12:00am February 29, 2024 9:25am PO PER PKG DIR morphine sulfate 15 mg extended release oral tablet (18 sources) Opioid Agonist Start: 03-03-2022 End: 11-17-2023 take 15 mg by mouth every twelve hours Morphine Discontinued 15 MG PO Q12H March 03, 2022 November 17, 2023 9:38am ondansetron 4 mg disintegrating oral tablet (20 sources) Serotonin-3 Receptor Antagonist Start: 03-03-2022 End: 11-17-2023 take 8 mg by mouth three times daily Ondansetron Discontinued 8 MG PO Three times daily March 03, 2022 12:00am November 17, 2023 9:39am Start: 02-11-2022 take 1 tablet by khurram [...] Not-Taking oxyCODONE hydrochloride 5 mg oral tablet (20 sources) Opioid Agonist Start: 02-11-2022 End: 11-17-2023 take 5 mg by mouth every four hours Oxycodone Discontinued 5 MG PO Every 4 hours March 03, 2022 November 17, 2023 9:39am pentoxifylline 400 mg extended release oral tablet (15 sources) 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 take 1 tablet by mouth twice daily at mealtime Pentoxifylline 400 MG 1 tablet with meals Orally Twice a day Not-Taking polyethylene glycol 3350 59959 mg powder for oral solution (20 sources) Osmotic Laxative Start: 02-11-2022 End: 11-17-2023 Polyethylene Glycol 3350 (Miralax) 17 gram Powder In Packet Discontinued 17 GM PO Daily March 03, 2022 12:00am November 17, 2023 9:39am pravastatin sodium 80 mg oral tablet (18 sources) HMG-CoA Reductase Inhibitor Start: 06-15-2019 End: 02-12-2022 take 80 mg by mouth once daily Pravastatin Discontinued 80 MG PO Daily June 15, 2019 12:00am February 12, 2022 11:41am prochlorperazine 5 mg oral tablet (18 sources) Phenothiazine Start: 03-03-2022 End: 11-17-2023 take 10 mg by mouth every six hours Prochlorperazine Maleate Discontinued 10 MG PO Q6H March 03, 2022 12:00am November 17, 2023 9:39am spironolactone 25 mg oral tablet (1 source) Aldosterone Antagonist Start: 03-09-2024 End: 03-09-2024 take 25 mg by mouth once daily Spironolactone Discontinued 25 MG PO Daily March 09, 2024 12:00am March 09, 2024 9:31am tiZANidine 2 mg oral capsule (6 sources) Central alpha-2 Adrenergic Agonist Start: 01-05-2024 End: 02-29-2024 take 2 mg by mouth three times daily Tizanidine Discontinued 2 MG PO Three times daily 12 07January 05, 2024 12:00am February 29, 2024 9:26am traMADol hydrochloride 50 mg oral tablet (20 sources) Opioid Agonist Start: 11-17-2023 End: 06-03-2024 take 50 mg by mouth three times daily Tramadol Discontinued 50 MG PO Three times daily 70 30 January 10, 2024 10:12pm February 14, 2024 4:48pm start 01/09 Start: 06-09-2023 take 1 tablet by khurram th every eight hours as needed for pain traMADol HCl 50 MG 1 tablet as needed Orally every 8 hours PRN pain Aug, Active Start: 01-27-2023 take 1 tablet by khurram th every twelve hours traMADol HCl 50 MG 1 tablet as needed Orally Twice a day for 30 days Start 04/08May, Active Start: 03-03-2022 End: 11-17-2023 take 50 mg by mouth every four hours Tramadol Discontinued 50 MG PO Q4H March 03, 2022 12:00am November 17, 2023 9:40am Start: 02-11-2022 take 1 tablet by khurram [...] 15, 2019 12:00am March 03, 2022 1:51pm triamcinolone acetonide 40 mg/ml injectable suspension (20 [...] toe(s) (acquired), right foot] Chronic Administrative/social admission (20 sources) Dietary counseling and surveillance; Translations: [Other [...] [Chronic kidney disease, stage 3a] Onset: 8 11-16-2023 Chronic Chronic obstructive pulmonary disease and bronchiectasis [...] glucose] Episodic Diseases of white blood cells (5 sources) Elevated white blood cell count, unspecified; Translations: [Leukocytosis] Onset: 2 12-08-2023 Chronic Disorders of lipid metabolism (20 sources) Hypercholesterolemia; Translations: [Pure hypercholesterolemia, unspecified] 03-02-2022 Chronic Esophageal disorders (20 sources) Gastroesophageal reflux disease; Translations: [Gastro-esophageal reflux disease without esophagitis] Onset: 2 Chronic Essential hypertension (20 sources) Hypertensive disorder; Translations: [Essential (primary) hypertension] Onset: 4 03-02-2022 Chronic Fluid and electrolyte disorders (11 sources) Hypokalemia; Translations: [Hypo-osmolality and hyponatremia] Onset: 2 Episodic Fracture of lower limb (1 source) Nondisplaced fracture of proximal phalanx of right lesser toe(s), initial encounter for closed fracture Episodic Genitourinary symptoms and ill-defined conditions (10 sources) Genuine stress incontinence; Translations: [Stress incontinence (female) (male)] 12-08-2023 Chronic Hypertension with complications and secondary hypertension (12 sources) Hypertensive chronic kidney disease with stage 1 through stage 4 chronic kidney disease, or unspecified chronic kidney disease; Translations: [Benign hypertensive renal disease] Onset: 8 Chronic Immunizations and screening for infectious disease (7 sources) Raised antibody titer; Translations: [Contact with and (suspected) exposure to other viral communicable diseases] Onset: 3 Resolved: 1 Episodic Intestinal infection (13 sources) Enterocolitis due to Clostridium difficile, not specified as recurrent; Translations: [Clostridial gastroenteritis] Onset: 2 Episodic Joint disorders and dislocations; trauma-related (3 sources) 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; Translations: [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] Onset: 8 Chronic Menopausal disorders (3 sources) Primary ovarian failure; Translations: [Other primary ovarian failure] Onset: 7 Chronic Miscellaneous mental health disorders (10 sources) Primary insomnia; Translations: [Primary insomnia] 12-08-2023 Chronic Osteoarthritis (20 sources) Arthritis of left [...] current use of drug therapy; Translations: [Other residential (current) drug therapy] 12-08-2023 Episodic Other aftercare (3 sources) Other residential (current) drug therapy; Translations: [OTH CAN DRYER CURRENT DRUG THERAPY] Onset: 2 Resolved: 2 Episodic Other aftercare (3 sources) High risk drug monitoring status; Translations: [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] Episodic Other bone disease and musculoskeletal deformities (3 sources) Other specified disorders of bone density and structure, left thigh; Translations: [Other specified disorders of bone density and structure, left thigh] Episodic Other bone disease and musculoskeletal deformities (7 sources) Osteopenia; Translations: [Other specified disorders of bone density and structure, left thigh] 12-08-2023 Episodic Other circulatory disease (3 sources) Raynaud's disease; Translations: [Raynaud's syndrome without gangrene] Chronic Other circulatory disease (7 sources) Raynaud's phenomenon; Translations: [Raynaud's syndrome without gangrene] 12-08-2023 Chronic Other circulatory disease (5 sources) Other disorder of circulatory system Episodic Other connective tissue disease (20 sources) Artificial knee joint present; Translations: [Presence of left artificial knee joint] 12-08-2023 Chronic Other connective tissue disease (20 sources) [...] wrist; Translations: [Ganglion, left wrist] Episodic Other connective tissue disease (1 source) Tendinitis of foot; Translations: [Other enthesopathies, not elsewhere classified] 12-08-2023 Episodic Other connective tissue disease (1 source) Tendinitis of left posterior tibial tendon; Translations: [Posterior tibial tendinitis, left leg] 12-08-2023 Episodic Other connective tissue disease (6 sources) Muscle spasm of cervical muscle of neck; Translations: [Other muscle spasm] 01-05-2024 Episodic Other connective tissue disease (6 sources) Other muscle spasm; Translations: [Spasm of muscle] 01-05-2024 Episodic Other gastrointestinal disorders (10 sources) Irritable bowel syndrome with diarrhea; Translations: [Irritable bowel syndrome with diarrhea] 12-08-2023 Chronic Other gastrointestinal disorders (20 sources) Dysphagia; Translations: [Dysphagia, unspecified] 12-08-2023 Episodic Other gastrointestinal disorders (3 sources) Diarrhea; Translations: [Diarrhea, unspecified] Episodic Other hematologic conditions (1 source) Elevated erythrocyte sedimentation rate; Translations: [ELEVATED ERYTHROCYTE SED RATE] Onset: Episodic Other hematologic conditions (10 sources) ESR raised; Translations: [Elevated erythrocyte sedimentation rate] 12-08-2023 Episodic Other injuries and conditions due to external causes (3 sources) History of fall; Translations: [History of falling] Episodic Other liver diseases (20 sources) Steatosis of liver; Translations: [Fatty (change of) liver, not elsewhere classified] 11-16-2023 Chronic Other liver diseases (5 sources) Fatty (change of) liver, not elsewhere classified; Translations: [Fatty (change of) liver, not elsewhere classified] Onset: Chronic Other lower respiratory disease (20 sources) Dyspnea on exertion; Translations: [Other forms of dyspnea] 12-08-2023 Episodic Other lower respiratory disease (2 sources) Other forms of dyspnea Episodic Other nervous system disorders (20 sources) Carpal tunnel syndrome of left wrist; Translations: [Carpal tunnel syndrome, left upper limb] 12-08-2023 Chronic Other nervous system disorders (1 source) Carpal tunnel syndrome, left upper limb Chronic Other nervous system disorders (10 sources) Carpal tunnel syndrome; Translations: [Carpal tunnel syndrome, bilateral upper limbs] 12-08-2023 Chronic Other non-epithelial cancer of skin (10 sources) Basal cell carcinoma of nose; Translations: [Basal cell carcinoma of skin of nose] 12-08-2023 Episodic Other non-traumatic joint disorders (1 source) Pain in left shoulder Episodic Other non-traumatic joint disorders (1 source) Pain in left wrist Episodic Other non-traumatic joint disorders (3 sources) Other specified joint disorders, right ankle and foot; Translations: [Other specified joint disorders, right ankle and foot] Episodic Other non-traumatic joint disorders (1 source) Disorder of joint of ankle and/or foot; Translations: [Other specified joint disorders, right ankle and foot] 12-08-2023 Episodic Other nutritional; endocrine; and metabolic disorders (20 sources) Body mass index 30+ - obesity; Translations: [Obesity, unspecified] Onset: 7 Chronic Other nutritional; endocrine; and metabolic disorders (15 sources) Obesity, unspecified; Translations: [Obesity, unspecified] Chronic Other nutritional; endocrine; and metabolic disorders (20 sources) Obesity; Translations: [Obesity, unspecified] 12-09-2023 Chronic Other nutritional; endocrine; and metabolic disorders (20 sources) Obese class II; Translations: [Body mass index 37.0-37.9, adult] Onset: 7 11-16-2023 Chronic Other nutritional; endocrine; and metabolic disorders (20 sources) Body mass index 40+ - severely obese; Translations: [Body Mass Index 40.0-44.9, adult] Onset: 6 Chronic Other nutritional; endocrine; and metabolic disorders (20 sources) Morbid obesity; Translations: [Morbid (severe) obesity due to excess calories] Chronic Other nutritional; endocrine; and metabolic disorders (8 sources) Morbid (severe) obesity due to excess calories; Translations: [Obesity, Class II, BMI 35-39.9] Onset: 4 Chronic Other nutritional; endocrine; and metabolic disorders (2 sources) Body mass index (BMI) 37.0-37.9, adult Chronic Other nutritional; endocrine; and metabolic disorders (16 sources) Severe obesity; Translations: [Morbid (severe) obesity due to excess calories] Chronic Other nutritional; endocrine; and metabolic disorders (4 sources) Body mass index (BMI) 35.0-35.9, adult Chronic Other nutritional; endocrine; and metabolic disorders (12 sources) Obese class I; Translations: [Body mass index (BMI) 33.0-33.9, adult] Chronic Other nutritional; endocrine; and metabolic disorders (2 sources) Body mass index (BMI) 33.0-33.9, adult Chronic Other screening for suspected conditions (not mental disorders or infectious disease) (20 sources) Patient encounter status; Translations: [Encounter for [...] and/or feet; Translations: [Dyshidrosis [pompholyx]] Episodic Other skin disorders (7 sources) Night sweats; Translations: [Generalized hyperhidrosis] 12-08-2023 Episodic Other skin disorders (1 source) Vesicular eczema; Translations: [Dyshidrosis [pompholyx]] 12-08-2023 Episodic Other upper respiratory disease (10 sources) Allergic rhinitis due to pollen; Translations: [Allergic rhinitis due to pollen] 12-08-2023 Chronic Residual codes; unclassified (18 sources) Sleep apnea; Translations: [Sleep apnea, unspecified] 03-02-2022 Chronic Residual codes; unclassified (3 sources) Sleep apnea, unspecified; Translations: [Obstructive sleep apnea (adult)(pediatric)] 03-03-2022 Chronic Residual codes; unclassified (20 sources) Obstructive sleep apnea syndrome; Translations: [Obstructive sleep apnea (adult) (pediatric)] Onset: 11-16-2023 Chronic Residual codes; unclassified (10 sources) Obstructive sleep apnea (adult) (pediatric); Translations: [Obstructive sleep apnea (adult) (pediatric)] Chronic Residual codes; unclassified (4 sources) Continuous positive airway pressure ventilation treatment; Translations: [Dependence on other enabling machines and devices] Chronic Residual codes; unclassified (7 sources) Dependence on continuous positive airway pressure ventilation; Translations: [Dependence on other enabling machines and devices] 12-08-2023 Chronic Rheumatoid arthritis and related disease (20 sources) Rheumatoid arthritis of right wrist; Translations: [Rheumatoid arthritis with rheumatoid factor of right wrist without organ or systems involvement] Onset: 0 Chronic Spondylosis; intervertebral disc disorders; other back problems (20 sources) Cervical spondylosis without myelopathy; Translations: [Spondylosis without myelopathy or radiculopathy, cervical region] Chronic Spondylosis; intervertebral disc disorders; other back problems (15 sources) Low back pain; Translations: [Low back pain, unspecified] Resolved: 0 01-05-2024 Episodic Substance-related disorders (6 sources) Tobacco user; Translations: [Nicotine dependence, cigarettes, in remission] Onset: 6 Resolved: 1 Chronic Superficial injury; contusion (2 sources) Contusion of right foot, initial encounter; Translations: [Abrasion, right lesser toe(s), initial encounter] Episodic Unclassified (1 source) CONTACT W/AND (SUSP) EXPOS COVID-19; Translations: [CONTACT W/AND (SUSP) EXPOS COVID-19] Onset: 2 Unclassified (1 source) Aftercare following joint replacement [...] Episodic Esophageal disorders (2 sources) Esophageal disorders Joint disorders and dislocations; trauma-related (6 sources) [...] and abscess of trunk] Onset: 07-09-2017 Episodic Sprains and strains (4 sources) Strain of muscle, fascia and tendon of other parts of biceps, left arm, initial encounter; Translations: [Strain of muscle of right shoulder] Onset: 03-01-2019 Episodic Unclassified (1 source) Paroxysmal sinus tachycardia I47.19 Results Test Name Value Interpretation Reference Range Facility Activated partial thrombopla stin time (APTT).factor substitution in platelet poor plaon 01-11-2024 aPTT.factor substitution immediately after 1:4 addition of normal plasma Coag (PPP) [Time] TNP sec . [facility] Comment on above: Testing Not Indicate dThis test was developed and its performance characteristicsdetermined by [facility]. It has not been cleared or approvedby the [place] Food and Drug Administration. Activated partial thrombopla stin time (aPTT) in platelet poor plasma by coagulation aon 01-11-2024 aPTT Coag (PPP) [Time] 22.4 s Abnormal . [facility] Comment on above: This test has not be en validated for monitoringunfractionated heparin therapy. aPTT-based therapeuticranges for unfractionated heparin therapy have not beenestablished. Consider ordering Heparin anti-Xa(unfractionated).Reference Range:18 years and older: 22.9 - 30.2 Activated partial thrombopla stin time (aPTT) using hexagonal phase phospholipid in plon 01-11-2024 aPTT W excess hexagonal phase phospholipid Coag (PPP) [Time] 2 sec . [facility] Comment on above: This value is NEGATI VE.This is a qualitative assay and is therefore reported aspositive for lupus anticoagulant or negative. Thequantitative value is provided as an aid in diagnosis.Reference Range:0 - 11 Automated epithelial cells c ount in urine sediment (number/area)on 01-11-2024 Epithelial cells Auto (Urine sed) [#/Area] FEW #/LPF Abnormal NONE/RARE [facility] Automated urine sediment micki cium oxalate crystal count by microscopy (number/high powon 01-11-2024 Calcium oxalate crystals LM.HPF (Urine sed) [#/Area] FEW [facility] Automated urine specific gra vity by refractometryon 01-11-2024 Specific gravity Refractometry automated (U) [Rel density] >=1.030 Abnormal 1.005-1.025 [facility] Bacteria [Presence] in Urine by Automatedon 01-11-2024 Bacteria Auto Ql (U) NONE SEEN #/HPF NONE SEEN [facility] Basophils Auto (Bld) [#/Vol] on 01-11-2024 Basophils (Bld) [#/Vol] 0.0 10 3/uL 0.0-0.1 [facility] Basophils/100 WBC Auto (Bld) on 01-11-2024 Basophils/100 WBC (Bld) 0.5 % 0.2-2.0 [facility] Beta 2 glycoprotein 1 IgA Ab [Units/volume] in Serumon 01-11-2024 Beta 2 glycoprotein 1 IgA Qn (S) <10 MICHELA . [facility] Comment on above: The reference interv al reflects a 3SD or 99th percentileinterval.Reference Range:Negative: <26 Beta 2 glycoprotein 1 IgG Ab [Units/volume] in Serumon 01-11-2024 Beta 2 glycoprotein 1 IgG Qn (S) <10 SGU . [facility] Comment on above: The reference interv al reflects a 3SD or 99th percentileinterval.Reference Range:Negative: <21 Beta 2 glycoprotein 1 IgM Ab [Units/volume] in Serumon 01-11-2024 Beta 2 glycoprotein 1 IgM Qn (S) <10 [facility]U . [facility] Comment on above: The reference interv al reflects a 3SD or 99th percentileinterval.Reference Range:Negative: <33 Bilirubin Auto test strip (U ) [Mass/Vol]on 01-11-2024 Bilirubin (U) [Mass/Vol] SMALL Abnormal NEGATIVE [facility] Cardiolipin IgG Ab [Units/vo lume] in Serum by Immunoassayon 01-11-2024 Cardiolipin IgG IA Qn (S) <10 GPL . [facility] Comment on above: Reference Range:Nega tive: <15Indeterminate: 15 - 20Low to medium positive: >20 - 80High positive: >80 Cardiolipin IgM Ab [Units/vo lume] in Serum by Immunoassayon 01-11-2024 Cardiolipin IgM IA Qn (S) <10 MPL . [facility] Comment on above: Reference Range:Nega tive: <13Indeterminate: 13 - 20Low to medium positive: >20 - 80High positive: >80 Casts typing in urine sedime nt by light microscopyon 01-11-2024 Casts LM Nom (Urine sed) NONE SEEN #/LPF NONE SEEN [facility] Centriole Ab [Titer] in Seru m by Immunofluorescenceon 01-11-2024 Centriole Ab IF (S) [Titer] TNP . [facility] Centromere Ab [Titer] in Ser um by Immunofluorescenceon 01-11-2024 Centromere Ab IF (S) [Titer] TNP . [facility] Color Auto (U)on 01-11-2024 Color (U) DK. YELLOW YELLOW [facility] Dilute Naveen's viper venom time (DRVVT) confirmatory teston 01-11-2024 dRVVT actual/normal Coag (PPP) [Relative time] TNP sec . [facility] Comment on above: Testing Not Indicate d Eosinophils/100 WBC Auto (Bl d)on 01-11-2024 Eosinophils/100 WBC (Bld) 4.6 % 0.9-7.0 [facility] Erythrocyte distribution wid th Auto (RBC) [Ratio]on 01-11-2024 Erythrocyte distribution width (RBC) [Ratio] 13.2 % 11.0-15.0 [facility] Estimated glomerular filtrat ion rate (GFR) non- Americanon 01-11-2024 GFR/1.73 sq M.predicted among non-blacks MDRD (S/P/Bld) [Vol rate/Area] 52 mL/min/{1.73_m2} Low >=60 [facility] Globulin Calc (S) [Mass/Vol] on 01-11-2024 Globulin (S) [Mass/Vol] 3.2 g/dL [facility] Glucose [Mass/volume] in Uri ne by Test stripon 01-11-2024 Glucose Test strip (U) [Mass/Vol] Negative NEGATIVE [facility] Glucose mean value [Mass/vol ume] in Blood Estimated from glycated hemoglobinon 01-11-2024 Average glucose Estimated from glycated hemoglobin (Bld) [Mass/Vol] 117 mg/dL [facility] Hematocrit Auto (Bld) [Volum e fraction]on 01-11-2024 Hematocrit (Bld) [Volume fraction] 39.2 % 36.0-48.0 [facility] Hemoglobin [Mass/volume] in Bloodon 01-11-2024 Hemoglobin (Bld) [Mass/Vol] 12.8 g/dL 12.0-16.0 [facility] INR in Platelet poor plasma by Coagulation assayon 01-11-2024 INR Coag (PPP) [Relative time] 1.0 {INR} . [facility] Comment on above: Reference Range:>1 m onth: 0.9 - 1.2 Interpretation of screening lupus anticoagulant assayon 01-11-2024 Lupus anticoagulant three screening tests W Reflex Coag (PPP) [Interp] Comment . [facility] Comment on above: A lupus anticoagulan t is not detected. All antiphospholipidantibodies evaluated are normal. As antibody titers mayfluctuate with time, repeat testing may be indicated.Please contact [facility] if furtherclarification is needed.Performed at: [employer] [id number] [employer] [address] [id number] Director: Simon Izquierdo MD, Phone: [phone] Ketones Auto test strip (U) [Mass/Vol]on 01-11-2024 Ketones (U) [Mass/Vol] TRACE mg/dL Abnormal NEGATIVE [facility] - Chemistry and C hemistry - challengeon 01-11-2024 Albumin [Mass/Vol] 3.0 g/dL Low 3.4-5.0 [facility] ALP [Catalytic activity/Vol] 67 U/L 46-116 [facility] ALT [Catalytic activity/Vol] 26 U/L 14-59 [facility] AST [Catalytic activity/Vol] 18 U/L 15-37 [facility] Bilirubin [Mass/Vol] 0.4 mg/dL 0.2-1.0 [facility] Bilirubin.direct [Mass/Vol] 0.1 mg/dL 0.0-0.2 [facility] Creatinine [Mass/Vol] 1.05 mg/dL High 0.55-1.02 [facility] GFR/1.73 sq M.predicted MDRD (S/P/Bld) [Vol rate/Area] mL/min/{1.73_m2} >=60 [facility] Protein [Mass/Vol] 6.2 g/dL Low 6.4-8.2 [facility] - Hematology and Cell countson 01-11-2024 ESR (Bld) [Velocity] 6 mm/h <=30 [facility] HbA1c (Bld) [Mass fraction] 5.7 % 4.5-6.2 [facility] Comment on above: ADA RECOMMENDED LIMI T 4.0 - 6.0ADA THERAPEUTIC TARGET < 7.0ACTION SUGGESTED> 7.0 Immature granulocytes/100 WBC (Bld) 0.5 % 0.0-0.5 [facility] Leukocytes [#/area] in Urine sediment by Automated counton 01-11-2024 WBC Auto (Urine sed) [#/Area] NONE SEEN #/HPF 0-2 [facility] Leukocytes [#/area] in Urine sediment by Microscopy high power fieldon 01-11-2024 WBC LM.HPF (Urine sed) [#/Area] 0-2 #/HPF Abnormal NONE SEEN [facility] Leukocytes [#/volume] correc manju for nucleated erythrocytes in Blood by Automated counon 01-11-2024 WBC corrected for nucl RBC Auto (Bld) [#/Vol] 8.3 10 3/uL 4.0-11.0 [facility] Lymphocytes Auto (Bld) [#/Vo l]on 01-11-2024 Lymphocytes (Bld) [#/Vol] 3.2 10 3/uL 1.2-3.8 [facility] Lymphocytes/100 WBC Auto (Bl d)on 01-11-2024 Lymphocytes/100 WBC (Bld) 38.0 % 20.5-60.0 [facility] MCH Auto (RBC) [Entitic mass ]on 01-11-2024 MCH (RBC) [Entitic mass] 30.3 pg 26.7-34.0 [facility] MCHC Auto (RBC) [Mass/Vol]on 01-11-2024 MCHC (RBC) [Mass/Vol] 32.7 g/dL 29.9-35.2 [facility] MCV Auto (RBC) [Entitic vol] on 01-11-2024 MCV (RBC) [Entitic vol] 92.7 fL 81.0-99.0 [facility] Midbody Ab [Titer] in Serum by Immunofluorescenceon 01-11-2024 Midbody Ab IF (S) [Titer] TN . [facility] Mitotic spindle apparatus Ab [Titer] in Serum or Plasma by Immunofluorescenceon 01-11-2024 Mitotic spindle apparatus Ab IF [Titer] TNP . [facility] Monocytes Auto (Bld) [#/Vol] on 01-11-2024 Monocytes (Bld) [#/Vol] 1.0 10 3/uL High 0.3-0.8 [facility] Monocytes/100 WBC Auto (Bld) on 01-11-2024 Monocytes/100 WBC (Bld) 12.3 % High 1.7-12.0 [facility] Mucus LM Ql (Urine sed)on Mucus Ql (Urine sed) NONE SEEN NONE SEEN [facility] Neutrophils Auto (Bld) [#/Vo l]on 01-11-2024 Neutrophils (Bld) [#/Vol] 3.7 10 3/uL 1.4-6.5 [facility] Neutrophils/100 WBC Auto (Bl d)on 01-11-2024 Neutrophils/100 WBC (Bld) 44.1 % 43.0-75.0 [facility] No Panel Informationon 01-10 Anti-Double Strand DNA Antibody 1 [IU]/mL 0-9 [facility] Comment on above: Negative <5 Equivoca l 5 - 9 Positive >9Performed at: [employer] [id number] Director: Matty Diaz PhD, Phone: [phone] Anti-Nuclear Antibody Comment 2 Comment . [facility] Comment on above: Pattern Potential Di sease Association Homogeneous Systemic Lupus Erythematosus, Drug Induced Systemic Lupus Erythematosus, Chronic Autoimmune hepatitis, Juvenile Idiopathic Arthritis Speckled Sjogren Syndrome, Systemic Lupus Erythematosus, Subacute Cutaneous Lupus, Lupus, Congenital Heart Block, Mixed Connective Tissue Disease, Scleroderma-diffuse, Scleroderma-Autoimmune Myositis Overlap Syndrome, Systemic Lupus Svydjwgqmnwjx-Gpsjovnzmky-Iplgqnqjma Myositis Overlap Syndrome, Systemic Autoimmune Rheumatic Disease, Undifferentiated Connective Tissue Disease Nucleolar Systemic Sclerosis, Scleroderma-Autoimmune Myositis Overlap Syndrome, Sjogren Syndrome, Raynaud phenomenon, Pulmonary Arterial Hypertension, Systemic Autoimmune Rheumatic Disease, Cancer Centromere Scleroderma-CREST, Limited Cutaneous SSc, Raynaud's Phenomenon, Primary Biliary Cholangitis Nuclear Dot Primary Biliary Cholangitis Nuclear Primary Biliary Cholangitis, AutoimmuneMembrane Hepatitis/Liver disease, Systemic Autoimmune Rheumatic Disease, Autoimmune Cytopenias, Linear Scleroderma, Antiphospholipid Syndrome Performed at: [facility] [id number] [place], [place] [id number] Director: Matty Diaz PhD, Phone: [phone] C-Reactive Protein, Quantitative <0.50 mg/dL <=0.50 [facility] Dilute Naveen Viper Venom Screen 32.2 sec . [facility] Comment on above: Reference Range:<= 4 7.0 Eosinophils # (Auto) 0.4 10 3/uL 0.0-0.7 [facility] Immature Granulocyte # (Auto) 0.04 10 3/uL High 0.00-0.03 [facility] Lupus Anticoag DRVVT Screen Ratio TNP ratio . [facility] Comment on above: Testing Not Indicate d Miscellaneous Test COMMENT . [facility] Comment on above: Test Ordered: [id number] Ramos AntibodiesSmith Antibodies 1.5 [H ] AI Reference Range: 0.0-0.9Performed at: [address] [id number] Director: Matty Diaz PhD, Phone: [phone] Platelet Neutralization 0.5 sec . [facility] Comment on above: Reference Range:0.0 - 3.0This test was developed and its performance characteristicsdetermined by [employer]. It has not been cleared or approvedby the Food and Drug Administration. Total Complement (CH50) >60 U/mL >41 [facility] Comment on above: Age Male Female 1 - 30 days [...] table above to determine out of range values.Performed at: [facility] [employer] [id number] Director: Matty Diaz PhD, Phone: [phone] Nuclear dots nuclear Ab farzad maurice [Titer] in Serum by Immunofluorescenceon 01-11-2024 Nuclear dots nuclear Ab pattern IF (S) [Titer] TNP . [facility] Nuclear membrane pores nucle ar Ab pattern [Titer] in Serum by Immunofluorescenceon 01-11-2024 Nuclear membrane pores nuclear Ab pattern IF (S) [Titer] TNP . [facility] PCNA extractable nuclear Ab [Titer] in Serum by Immunofluorescenceon 01-11-2024 PCNA extractable nuclear Ab IF (S) [Titer] TNP . [facility] Platelet mean volume Auto (B ld) [Entitic vol]on 01-11-2024 Platelet mean volume (Bld) [Entitic vol] 11.7 fL 9.5-13.5 [facility] Platelet poor plasma factor substitution activated partial thromboplastin time (aPTT)on 01-11-2024 aPTT.factor substitution 1 Hr post incubation with normal plasma Coag (PPP) [Time] TNP sec . [facility] Comment on above: Testing Not Indicate dThis test was developed and its performance characteristicsdetermined by [facility]. It has not been cleared or approvedby the [place] Food and Drug Administration. Platelets Auto (Bld) [#/Vol] on 01-11-2024 Platelets (Bld) [#/Vol] 269 10 3/uL 150-450 [facility] Protein Auto test strip (U) [Mass/Vol]on 01-11-2024 Protein (U) [Mass/Vol] TRACE mg/dL NEG/TRACE [facility] Prothrombin time (PT)on 12-14 PT Coag (PPP) [Time] 10.9 s . [facility] Comment on above: Reference Range:18 y ears and older: 9.1 - 12.0 RBC Auto (Bld) [#/Vol]on RBC (Bld) [#/Vol] 4.23 10 6/uL 4.20-5.40 [facility] Serum homogeneous pattern an tinuclear antibody (VAL) titeron 01-11-2024 Homogenous nuclear Ab pattern (S) [Titer] 1:160 Abnormal . [facility] Comment on above: ICAP nomenclature: A C-1 Serum nuclear antibody titer on 01-11-2024 Nuclear Ab (S) [Titer] Positive Abnormal . [facility] Comment on above: Negative <1:80 Bernabe retana 1:80 Positive >1:80 Serum nucleolar pattern anti nuclear antibody (VAL) titeron 01-11-2024 Nucleolar nuclear Ab pattern (S) [Titer] TNP . [facility] Serum or plasma albumin/glob ulin mass ratioon 01-11-2024 Albumin/Globulin [Mass ratio] 0.9 {ratio} [facility] Serum or plasma complement C 3 measurement (mass/volume)on 01-11-2024 Complement C3 [Mass/Vol] 99 mg/dL 82-167 [facility] Serum or plasma complement C 4 measurement (mass/volume)on 01-11-2024 Complement C4 [Mass/Vol] 19 mg/dL 12-38 [facility] Comment on above: Performed at: [employer] [address] [place], [place] [id number] Director: Matty Diaz PhD, Phone: [phone] Serum or plasma cyclic adeno sine monophosphate measurement (moles/volume)on 01-11-2024 Adenosine monophosphate.cyclic [Moles/Vol] >250 units Abnormal 0-19 [facility] Comment on above: Negative <20 Weak po sitive 20 - 39 Moderate positive 40 - 59 Strong positive >59Performed at: [employer] [id number] [place], [place] [id number] Director: Matty Diaz PhD, Phone: [phone] Serum or plasma rheumatoid f actor measurement (units/volume)on 01-11-2024 Rheumatoid factor Qn 31.0 [IU]/mL Abnormal <14.0 [facility] Comment on above: Performed at: [employer] [place], [place] [id number] Director: Matty Diaz PhD, Phone: [phone] Serum speckled pattern antin uclear antibody (VAL) titeron 01-11-2024 Speckled nuclear Ab pattern (S) [Titer] TNP . [facility] Specific gravity Auto test s trip (U) [Rel density]on 01-11-2024 Specific gravity (U) [Rel density] CLEAR CLEAR [facility] TT plason 01-11-2024 Thrombin time Coag (PPP) [Time] 21.2 sec . [facility] Comment on above: Reference Range:0.0 - 23.0 Urine hemoglobin detection b y automated test stripon 01-11-2024 Hemoglobin Auto test strip Ql (U) Negative NEGATIVE [facility] Urine nitrite detection by a utomated test stripon 01-11-2024 Nitrite Auto test strip Ql (U) Negative NEGATIVE [facility] Urine sediment crystal ident ification by light microscopyon 01-11-2024 Crystals LM Nom (Urine sed) Seen #/HPF Abnormal None Seen [facility] Urobilinogen Auto test strip (U) [Mass/Vol]on 01-11-2024 Urobilinogen Qn (U) 1.0 {Charlotte'U}/dL 0.2-1.0 [facility] pH Auto test strip (U)on pH (U) 6.0 [pH] 5.0-9.0 [facility] Basophils Auto (Bld) [#/Vol] on 11-16-2023 Basophils (Bld) [#/Vol] 0.1 10 3/uL 0.0-0.1 [facility] Basophils/100 WBC Auto (Bld) on 11-16-2023 Basophils/100 WBC (Bld) 0.9 % 0.2-2.0 [facility] Eosinophils/100 WBC Auto (Bl d)on 11-16-2023 Eosinophils/100 WBC (Bld) 3.7 % 0.9-7.0 [facility] Erythrocyte distribution wid th Auto (RBC) [Ratio]on 11-16-2023 Erythrocyte distribution width (RBC) [Ratio] 13.1 % 11.0-15.0 [facility] Estimated glomerular filtrat ion rate (GFR) non- Americanon 11-16-2023 GFR/1.73 sq M.predicted among non-blacks MDRD (S/P/Bld) [Vol rate/Area] 47 mL/min/{1.73_m2} >=60 [facility] Globulin Calc (S) [Mass/Vol] on 11-16-2023 Globulin (S) [Mass/Vol] 3.4 g/dL [facility] Hematocrit Auto (Bld) [Volum e fraction]on 11-16-2023 Hematocrit (Bld) [Volume fraction] 39.1 % 36.0-48.0 [facility] Hemoglobin [Mass/volume] in Bloodon 11-16-2023 Hemoglobin (Bld) [Mass/Vol] 12.7 g/dL 12.0-16.0 [facility] - Chemistry and C hemistry - challengeon 11-16-2023 Albumin [Mass/Vol] 3.2 g/dL 3.4-5.0 [facility] ALP [Catalytic activity/Vol] 61 U/L 46-116 [facility] ALT [Catalytic activity/Vol] 27 U/L 14-59 [facility] AST [Catalytic activity/Vol] 22 U/L 15-37 [facility] Bilirubin [Mass/Vol] 0.4 mg/dL 0.2-1.0 [facility] Bilirubin.direct [Mass/Vol] 0.1 mg/dL 0.0-0.2 [facility] Creatinine [Mass/Vol] 1.14 mg/dL 0.55-1.02 [facility] GFR/1.73 sq M.predicted MDRD (S/P/Bld) [Vol rate/Area] 57 mL/min/{1.73_m2} >=60 [facility] Protein [Mass/Vol] 6.6 g/dL 6.4-8.2 [facility] - Hematology and Cell countson 11-16-2023 ESR (Bld) [Velocity] 6 mm/h <=30 [facility] Immature granulocytes/100 WBC (Bld) 0.0 % 0.0-0.5 [facility] Leukocytes [#/volume] correc manju for nucleated erythrocytes in Blood by Automated counon 11-16-2023 WBC corrected for nucl RBC Auto (Bld) [#/Vol] 5.7 10 3/uL 4.0-11.0 [facility] Lymphocytes Auto (Bld) [#/Vo l]on 11-16-2023 Lymphocytes (Bld) [#/Vol] 1.7 10 3/uL 1.2-3.8 [facility] Lymphocytes/100 WBC Auto (Bl d)on 11-16-2023 Lymphocytes/100 WBC (Bld) 29.6 % 20.5-60.0 [facility] MCH Auto (RBC) [Entitic mass ]on 11-16-2023 MCH (RBC) [Entitic mass] 29.9 pg 26.7-34.0 [facility] MCHC Auto (RBC) [Mass/Vol]on 11-16-2023 MCHC (RBC) [Mass/Vol] 32.5 g/dL 29.9-35.2 [facility] MCV Auto (RBC) [Entitic vol] on 11-16-2023 MCV (RBC) [Entitic vol] 92.0 fL 81.0-99.0 [facility] Monocytes Auto (Bld) [#/Vol] on 11-16-2023 Monocytes (Bld) [#/Vol] 0.5 10 3/uL 0.3-0.8 [facility] Monocytes/100 WBC Auto (Bld) on 11-16-2023 Monocytes/100 WBC (Bld) 8.5 % 1.7-12.0 [facility] Neutrophils Auto (Bld) [#/Vo l]on 11-16-2023 Neutrophils (Bld) [#/Vol] 3.3 10 3/uL 1.4-6.5 [facility] Neutrophils/100 WBC Auto (Bl d)on 11-16-2023 Neutrophils/100 WBC (Bld) 57.3 % 43.0-75.0 [facility] No Panel Informationon 11-15 Eosinophils # (Auto) 0.2 10 3/uL 0.0-0.7 [facility] Immature Granulocyte # (Auto) 0.00 10 3/uL 0.00-0.03 [facility] Platelet mean volume Auto (B ld) [Entitic vol]on 11-16-2023 Platelet mean volume (Bld) [Entitic vol] 11.7 fL 9.5-13.5 [facility] Platelets Auto (Bld) [#/Vol] on 11-16-2023 Platelets (Bld) [#/Vol] 228 10 3/uL 150-450 [facility] RBC Auto (Bld) [#/Vol]on RBC (Bld) [#/Vol] 4.25 10 6/uL 4.20-5.40 [facility] Serum or plasma albumin/glob ulin mass ratioon 11-16-2023 Albumin/Globulin [Mass ratio] 0.9 {ratio} [facility] XR wrist LT min 3V*on 2022 XR wrist LT min 3V* [facility] [employer] Other XR wrist LT min 3V* [facility] [employer] Other XR wrist LT min 3V* [address] [place] [address] [employer] Other XR wrist LT min 3V* [place] [address] [employer] Other XR wrist LT min 3V* XRay Report [facility] [employer] Other XR wrist LT min 3V* Signed [employer] Other XR wrist LT min 3V* Patient: Reba Gregory MR#: [id number] [employer] Other XR wrist LT min 3V* : 1955 Acct:[id number] [employer] Other XR wrist LT min 3V* Age/Sex: 67 / F ADM Date: 03/03/23 [employer] Other XR wrist LT min 3V* Loc: [facility] [place] [facility] Room: Type : [facility] [employer] Other XR wrist LT min 3V* Attending Dr: Kim Munson MD [employer] Other XR wrist LT min 3V* Copies to: Kiana Munson MD [employer] Other XR wrist LT min 3V* Ordering Provider: Kiana Munson MD [employer] Other XR wrist LT min 3V* Date of Service: 03/03/23 [employer] Other XR wrist LT min 3V* XR/XR wrist LT min 3V*: Wrist arthritis;Mass of left hand [employer] Other XR wrist LT min 3V* LEFT WRIST - 4 views [employer] Other XR wrist LT min 3V* CLINICAL HISTORY: Le ft wrist pain for months. Possible cyst ulnar aspect of left hand. [employer] Other XR wrist LT min 3V* COMPARISON: None [employer] Other XR wrist LT min 3V* FINDINGS: [employer] Other XR wrist LT min 3V* No focal soft tissue abnormality is seen. No acute bony process is noted. 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 Cystic changes are noted involving the capitate and [employer] Other XR wrist LT min 3V* hamate bones. No bon y erosions. Moderate degenerative changes are noted involving the CMC joint of [employer] Other XR wrist LT min 3V* the thumb. 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 NO ACUTE BONY PROCESS. [employer] Other XR wrist LT min 3V* DEGENERATIVE CHANGES , WORST AT THE CMC JOINT OF THE THUMB. [employer] Other XR wrist LT min 3V* Impression dictated by: Dave Espana Jr., D.O.03/03/2023 11:50 AM [employer] Other XR wrist LT min 3V* Dictation Location: [place] [address] [employer] Other XR wrist LT min 3V* Transcribed By: PWS 03/03/23 1150 [employer] Other XR wrist LT min 3V* Dictated By: Dave Espana Jr, DO 03/03/23 1147 [employer] Other XR wrist LT min 3V* Signed By: [employer] Other XR wrist LT min 3V* 03/03/23 1150 No rt [employer] Other XR wrist LT min 3V* [facility] [place] [address] [place] [id number] XRay Report Signed Patient: Reba Gregory MR#: [id number] : 1955 Acct:[id number] Age/Sex: 67 / F ADM Date: 03/03/23 Loc: [facility] Room: Type: [facility] Attending Dr: Kiana Munson MD Copies to: [...] Espana Jr., D.OShannon03/03/2023 11:50 AM Dictation Location: [place] [address] Transcribed By: [facility] 03/03/23 1150 Dictated By: Dave Espana Jr, DO 03/03/23 1147 Signed By: 03/03/23 1150 Normal [facility] XR knee LT 2Von 02-17-2023 XR knee LT 2V [facility] [employer] Other XR knee LT 2V [facility] [employer] Other XR knee LT 2V [address] [place] [address] [employer] Other XR knee LT 2[place] [address] [facility] [employer] Other XR knee LT 2V [facility] Other XR knee LT 2V Signed [place] [employer] Other XR knee LT 2V Patient: Reba Gregory MR#: [id number] [employer] Other XR knee LT 2V : 1955 Acct:[id number] [employer] Other XR knee LT 2V Age/Sex: 67 / F ADM Date: 02/17/23 [employer] Other XR knee LT 2V Loc: [facility] Room: Type : REG I [employer] Other XR knee LT 2V Attending Dr: Nabor Nelson II, MD [employer] Other XR knee LT 2V Copies to: Nabor Nelson MD [employer] Other XR knee LT 2V Ordering Provider: Ragini Nelson MD [employer] Other XR knee LT 2V Date of Service: 02/17/23 [employer] Other XR knee LT 2V XR/XR knee LT 2V: Aftercare following joint replacement surgery;Presence [employer] Other XR knee LT 2V of le [employer] Other XR knee LT 2V [address] ain film [employer] Other XR knee LT 2V COMPARISON: 05/28/2022 [employer] Other XR knee LT 2V HISTORY: Status post left total knee arthroplasty [employer] Other XR knee LT 2V ACUTE FINDINGS: None N [employer] Other XR knee LT 2V DEGENERATIVE CHANGE: Unremarkable [employer] Other XR knee LT 2V SOFT TISSUE FINDINGS : Unremarkable [employer] Other XR knee LT 2V JOINT EFFUSION: None N [employer] Other XR knee LT 2V POSTOP CHANGES: No hardware failure or loosening. [employer] Other XR knee LT 2V BONE MINERALIZATION: Adequate [employer] Other XR knee LT 2V X R/XR knee LT 2V [employer] Other XR knee LT 2V IMPRESSION: Stable l eft knee arthroplasty [employer] Other XR knee LT 2V Impression dictated by: Rome Guerra M.D.02/17/2023 1:58 PM [employer] Other XR knee LT 2V Dictation Location: [place] [address] [employer] Other XR knee LT 2V Transcribed By: PWS 02/17/23 [facility] [employer] Other XR knee LT 2V Dictated By: Phuc Guerra DO 02/17/23 [facility] [employer] Other XR knee LT 2V Signed By: [employer] Other XR knee LT 2V 02/17/23 [facility] [employer] Other XR knee LT 2V [facility] [place] [address] [place] [address] XRay Report Signed Patient: Reba Gregory MR#: [id number] : 1955 Acct:[id number] Age/Sex: 67 / F ADM Date: 02/17/23 Loc: [facility] [facility] Room: Type: [facility] Attending Dr: Nabor Nelson II, MD Copies [...] Rome Guerra M.D.02/17/2023 1:58 PM Dictation Location: [place] [address] Transcribed By: [facility] 02/17/23 135 Dictated By: Rome Guerra DO 02/17/23 4657 Signed By: 02/17/23 1358 Normal [facility] Automated epithelial cells c ount in urine [...] on 02-03-2023 Bilirubin Ql (U) Negative Negative [facility] Calcium [Mass/volume] in 24 hour UrineOrdered By: Nabor Wilson on 02-03-2023 Calcium (24H U) [Mass/Vol] 1.1 mg/dL Not Estab. [facility] Calcium/Creatinine [Mass Rat io] in UrineOrdered By: Nabor Wilson on 02-03-2023 Calcium/Creatinine (U) [Mass ratio] 24 mg/g creat 56-406 [facility] Comment on above: Performed at: [address] [id number] Director: Matty Diaz PhD, Phone: [phone] Color Auto (U)Ordered By: Anne Wilson on 02-03-2023 Color (U) Yellow Yellow [facility] Creatinine [Mass/volume] in UrineOrdered By: Nabor Wilson on 02-03-2023 Creatinine (U) [Mass/Vol] 46.2 mg/dL Not Estab. [facility] Ketones Auto test strip (U) [Mass/Vol]Ordered By: [...] (U) [Rel density] 1.010 1.001-1.030 [facility] Urine bacteria detection by automated methodOrdered By: Nabor Wilson on 02-03-2023 Bacteria Auto Ql (U) None seen None Seen [facility] Urine clarity by refractomet ry automatedOrdered By: [...] Complement C3, Serum 147 mg/dL Normal 82-167 [facility] Comment on above: Performed By: #### C SUITE #### [facility] [address] [place] [address] Dr. Agueda Wiley Complement C4, Serum 29 mg/dL Normal 12-38 [facility] Comment on above: Performed By: #### C SUITE #### [facility] [address] [place] [address] Dr. Agueda Wiley CBC AUTO DIFFon 01-21-2023 BASO # 0.1 103/ul Normal 0.0-0.1 [facility] Comment on above: Performed By: #### C [place]KK[place], LIVER #### [facility] [address] [place] [address] Dr. Agueda Wiley Basophils/100 WBC (Bld) 0.6 % Normal 0.2-2.0 [facility] Comment on above: Performed By: #### C [place]KK[place], LIVER #### [facility] [address] [place] [address] Dr. Agueda Wiley EO # 0.2 103/ul Normal 0.0-0.7 [facility] Comment on above: Performed By: #### C [place]KK[place], LIVER #### [facility] [address] [place] [address] Dr. Agueda Wiley Eosinophils/100 WBC (Bld) 1.7 % Normal 0.9-7.0 [facility] Comment on above: Performed By: #### C [place]KK[place], LIVER #### [facility] [address] [place] [address] Dr. Agueda Wiley Erythrocyte distribution width (RBC) [Ratio] 12.4 % Normal 11.0-15.0 [facility] Comment on above: Performed By: #### C [place]KK[place], LIVER #### [facility] [address] [place] [address] Dr. Agueda Wiley Hematocrit (Bld) [Volume fraction] 44.0 % Normal 36.0-48.0 [facility] Comment on above: Performed By: #### C [place]KK[place], LIVER #### [facility] [address] [place] [address] Dr. Agueda Wiley Hemoglobin (Bld) [Mass/Vol] 14.2 g/dL Normal 12.0-16.0 [facility] Comment on above: Performed By: #### C [place]KKI, LIVER #### [facility] [address] [place] [address] Dr. Agueda Wiley IG # 0.03 10e3/ul Normal 0.00-0.03 [facility] Comment on above: Performed By: #### C [place]KKI, LIVER #### [facility] [address] [place] [address] Dr. Agueda Wiley IG % 0.3 % Normal 0.0-0.5 [facility] Comment on above: Performed By: #### C [place], LIVER #### [facility] [address] [place] [address] Dr. Agueda Wiley LYMPH # 2.2 103/ul Normal 1.2-3.8 [facility] Comment on above: Performed By: #### C [place]KK[place], LIVER #### [facility] [address] [place] [address] Dr. Agueda Wiley Lymphocytes/100 WBC (Bld) 21.1 % Normal 20.5-60.0 [facility] Comment on above: Performed By: #### C [place], LIVER #### [facility] [address] [place] [address] Dr. Agueda Wiley MANUAL DIFF REQ NO Normal [facility] Comment on above: Performed By: #### C [place], LIVER #### [facility] [address] [place] [address] Dr. Agueda Wiley MCH (RBC) [Entitic mass] 29.8 pg Normal 26.7-34.0 [facility] Comment on above: Performed By: #### C [place]KK[place], LIVER #### [facility] [address] [place] [address] Dr. Agueda Wiley MCHC (RBC) [Mass/Vol] 32.3 g/dL Normal 29.9-35.2 [facility] Comment on above: Performed By: #### C [place], LIVER #### [facility] [address] [place] [address] Dr. Agueda Wiley MCV (RBC) [Entitic vol] 92.2 fL Normal 81.0-99.0 [facility] Comment on above: Performed By: #### C [place], LIVER #### [facility] [address] [place] [address] Dr. Agueda Wiley MONO # 1.0 103/ul Critically high 0.3-0.8 [facility] Comment on above: Performed By: #### C [place], LIVER #### [facility] [address] [place] [address] Dr. Agueda Wiley Monocytes/100 WBC (Bld) 9.2 % Normal 1.7-12.0 [facility] Comment on above: Performed By: #### C [place], LIVER #### [facility] [address] [place] [address] Dr. Agueda Wiley NEUT # 7.0 103/ul Critically high 1.4-6.5 [facility] Comment on above: Performed By: #### Gila KAYE, LIVER #### [facility] [address] [place] [address] Dr. Agueda Wiley Neutrophils/100 WBC (Bld) 67.1 % Normal 43.0-75.0 [facility] Comment on above: Performed By: #### Gila KAYE, LIVER #### [facility] [address] [place] [address] Dr. Agueda Wiley Platelet mean volume (Bld) [Entitic vol] 11.6 fL Normal 9.5-13.5 [facility] Comment on above: Performed By: #### C [place], LIVER #### [facility] [address] [place] [address] Dr. Agueda Wiley PLT 289 103/ul Normal 150-450 [facility] Comment on above: Performed By: #### Gila KAYE, LIVER #### [facility] [address] [place] [address] [address] Agueda Wiley RBC 4.77 106/ul Normal 4.20-5.40 [facility] Comment on above: Performed By: #### C [place], LIVER #### [facility] [address] [place] [address] [address] Agueda Wiley WBC 10.5 103/ul Normal 4.0-11.0 [facility] Comment on above: Performed By: #### C [place], LIVER #### [facility] [address] [place] [address] [address] Agueda Wiley CREATININEon 01-21-2023 Creatinine [Mass/Vol] 1.19 mg/dL Critically high 0.55-1.02 [facility] Comment on above: Performed By: #### C [place]KK[place], LIVER, CRP #### [facility] [address] [place] [address] Dr. Agueda Wiley EGFR-AF [place] 55 mL/min/1.73m2 Critically low >=60 [facility] Comment on above: Performed By: #### C [place]KK[place], LIVER, CRP #### [facility] [address] [place] [address] [address] Agueda Wiley EGFR-NON AF [place] 45 mL/min/1.73m2 Critically low >=60 [facility] Comment on above: Performed By: #### C [place]KK[place], LIVER, CRP #### [facility] [address] [place] [address] [address] Agueda Wiley CRPon 01-21-2023 CRP [Mass/Vol] mg/L Normal <=1.0 [facility] Comment on above: Performed By: #### C [place]KKI, LIVER, CRP #### [facility] [address] [place] [address] [address] Agueda Wiley LIVER PROFILEon 01-21-2023 Albumin [Mass/Vol] 3.5 g/dL Normal 3.4-5.0 [facility] Comment on above: Performed By: #### C [place]KK[place], LIVER, CRP #### [facility] [address] [place] [address] Dr. Agueda Wiley Albumin/Globulin [Mass ratio] 0.8 {ratio} Normal [facility] Comment on above: Performed By: #### C [place]KK[place], LIVER, CRP #### [facility] [address] [place] [address] [address] Agueda Wiley ALP [Catalytic activity/Vol] 87 U/L Normal 46-116 [facility] Comment on above: Performed By: #### C [place]KK[place], LIVER, CRP #### [facility] [address] [place] [address] [address] Agueda Wiley ALT [Catalytic activity/Vol] 33 U/L Normal 14-59 [facility] Comment on above: Performed By: #### C [place], LIVER, CRP #### [facility] [address] [place] [address] [address] Agueda Wiley AST [Catalytic activity/Vol] 22 U/L Normal 15-37 [facility] Comment on above: Performed By: #### C [place], LIVER, CRP #### [facility] [address] [place] [address] [address] Agueda Wiley BILI, CONJUGATED 0.1 mg/dL Normal 0.0-0.2 [facility] Comment on above: Performed By: #### C [place]KK[place], LIVER, CRP #### [facility] [address] [place] [address] Dr. Agueda Wiley Bilirubin [Mass/Vol] 0.4 mg/dL Normal 0.2-1.0 [facility] Comment on above: Performed By: #### C [place]KK[place], LIVER, CRP #### [facility] [address] [place] [address] Dr. Agueda Wiley Globulin (S) [Mass/Vol] 4.2 g/dL Normal [facility] Comment on above: Performed By: #### C [place]KK[place], LIVER, CRP #### [facility] [address] [place] [address] Dr. Agueda Wiley Protein [Mass/Vol] 7.7 g/dL Normal 6.4-8.2 [facility] Comment on above: Performed By: #### C [place]KK[place], LIVER, CRP #### [facility] [address] [place] [address] [address] Agueda Wiley SED RATE WESTERGRENon 2022 SED RATE 26 mm/hr Normal <=30 [facility] Comment on above: Performed By: #### A NAJOSEA #### [facility] [address] [place] [address] Dr. Agueda Wiley UA RANDOM W/MICROSCOPICon BACTERIA TRACE Abnormal NONE SEEN [facility] Comment on above: Performed By: #### C [place], LIVER #### [facility] [address] [place] [address] Dr. Agueda Wiley Bilirubin Ql (U) Negative Normal NEGATIVE [facility] Comment on above: Performed By: #### C [place], LIVER #### [facility] [address] [place] [address] Dr. Agueda Wiley CAST NONE SEEN Normal NONE SEEN [facility] Comment on above: Performed By: #### C [place], LIVER #### [facility] [address] [place] [address] Dr. Agueda Wiley Clarity (U) CLEAR Normal CLEAR [facility] Comment on above: Performed By: #### C [place], LIVER #### [facility] [address] [place] [address] Dr. Agueda Wiley Color (U) YELLOW Normal YELLOW [facility] Comment on above: Performed By: #### C [place], LIVER #### [facility] [address] [place] [address] Dr. Agueda Wiley Crystals LM Nom (Urine sed) NONE SEEN Normal NONE SEEN [facility] Comment on above: Performed By: #### C [place], LIVER #### [facility] [address] [place] [address] Dr. Agueda Wiley Epithelial cells LM Ql (Urine sed) FEW Abnormal NONE SEEN /RARE [facility] Comment on above: Performed By: #### C [place], LIVER #### [facility] [address] [place] [address] Dr. Agueda Wiley Glucose Ql (U) Negative Normal NEGATIVE [facility] Comment on above: Performed By: #### C [place], LIVER #### [facility] [address] [place] [address] Dr. Agueda Wiley Hemoglobin Ql (U) Negative Normal NEGATIVE [facility] Comment on above: Performed By: #### C [place], LIVER #### [facility] [address] [place] [address] [address] Agueda Wiley Ketones Ql (U) Negative Normal NEGATIVE [facility] Comment on above: Performed By: #### C [place], LIVER #### [facility] [address] [place] [address] Dr. Agueda Wiley LEUKOCYTES Negative Normal NEGATIVE [facility] Comment on above: Performed By: #### C [place], LIVER #### [facility] [address] [place] [address] Dr. Agueda Wiley MUCOUS MODERATE Abnormal NONE SEEN [facility] Comment on above: Performed By: #### C [place], LIVER #### [facility] [address] [place] [address] Dr. Agueda Wiley Nitrite Ql (U) Negative Normal NEGATIVE [facility] Comment on above: Performed By: #### C [place], LIVER #### [facility] [address] [place] [address] Dr. Agueda Wiley pH (U) 5.0 [pH] Normal 5-9 [facility] Comment on above: Performed By: #### C [place], LIVER #### [facility] [address] [place] [address] Dr. Agueda Wiley RBC 2-5 Abnormal 0-2 [facility] Comment on above: Performed By: #### C [place], LIVER #### [facility] [address] [place] [address] Dr. Agueda Wiley SPEC GRAVITY >=1.030 Abnormal 1.005-<=1.0 25 [facility] Comment on above: Performed By: #### C [place], LIVER #### [facility] [address] [place] [address] Dr. Agueda Wiley UA PROTEIN 100 mg/dl Abnormal NEGATIVE/ TRACE [facility] Comment on above: Performed By: #### C [place], LIVER #### [facility] [address] [place] [address] Dr. Agueda Wiley Urobilinogen Qn (U) 1.0 {[place]'U}/dL Normal 0.2 - 1. 0 [facility] Comment on above: Performed By: #### C [place], LIVER #### [facility] [address] [place] [address] Dr. Agueda Wiley WBC 0-2 Abnormal NONE SEEN [facility] Comment on above: Performed By: #### C [place], LIVER #### [facility] [address] [place] [address] Dr. Agueda Wiley CBC AUTO DIFFon 11-27-2022 BASO # 0.0 103/ul Normal 0.0-0.1 [facility] Comment on above: Performed By: #### C [place], LIVER #### [facility] [address] [place] [address] Dr. Agueda Wiley Basophils/100 WBC (Bld) 0.3 % Normal 0.2-2.0 [facility] Comment on above: Performed By: #### C [place], LIVER #### [facility] [address] [place] [address] Dr. Agueda Wiley EO # 0.1 103/ul Normal 0.0-0.7 [facility] Comment on above: Performed By: #### C [place], LIVER #### [facility] [address] [place] [address] Dr. Agueda Wiley Eosinophils/100 WBC (Bld) 0.9 % Normal 0.9-7.0 [facility] Comment on above: Performed By: #### C [place], LIVER #### [facility] [address] [place] [address] Dr. Agueda Wiley Erythrocyte distribution width (RBC) [Ratio] 15.8 % Critically high 11.0-15.0 [facility] Comment on above: Performed By: #### C [place], LIVER #### [facility] [address] [place] [address] Dr. Agueda Wiley Hematocrit (Bld) [Volume fraction] 39.6 % Normal 36.0-48.0 [facility] Comment on above: Performed By: #### C [place], LIVER #### [facility] [address] [place] [address] Dr. Agueda Wiley Hemoglobin (Bld) [Mass/Vol] 12.7 g/dL Normal 12.0-16.0 [facility] Comment on above: Performed By: #### C [place], LIVER #### [facility] [address] [place] [address] Dr. Agueda Wiley IG # 0.08 10e3/ul Critically high 0.00-0.03 [facility] Comment on above: Performed By: #### C MIKKI, LIVER #### [facility] [address] [place] [address] Dr. Agueda Wiley IG % 0.6 % Critically high 0.0-0.5 [facility] Comment on above: Performed By: #### C MIKKI, LIVER #### [facility] [address] [place] [address] Dr. Agueda Wiley LYMPH # 1.2 103/ul Normal 1.2-3.8 [facility] Comment on above: Performed By: #### C MIKKI, LIVER #### [facility] [address] [place] [address] Dr. Agueda iWley Lymphocytes/100 WBC (Bld) 8.6 % Critically low 20.5-60.0 [facility] Comment on above: Performed By: #### C MIKKI, LIVER #### [facility] [address] [place] [address] Dr. Agueda Wiley MANUAL DIFF REQ NO Normal [facility] Comment on above: Performed By: #### C MIKKI, LIVER #### [facility] [address] [place] [address] Dr. Agueda Wiley MCH (RBC) [Entitic mass] 29.5 pg Normal 26.7-34.0 [facility] Comment on above: Performed By: #### C MIKKI, LIVER #### [facility] [address] [place] [address] Dr. Agueda Wiley MCHC (RBC) [Mass/Vol] 32.1 g/dL Normal 29.9-35.2 [facility] Comment on above: Performed By: #### C MIKKI, LIVER #### [facility] [address] [place] [address] Dr. Agueda Wiley MCV (RBC) [Entitic vol] 92.1 fL Normal 81.0-99.0 [facility] Comment on above: Performed By: #### C MIKKI, LIVER #### [facility] [address] [place] [address] Dr. Agueda Wiley MONO # 0.9 103/ul Critically high 0.3-0.8 [facility] Comment on above: Performed By: #### C MIKKI, LIVER #### [facility] [address] [place] [address] Dr. Agueda Wiley Monocytes/100 WBC (Bld) 7.0 % Normal 1.7-12.0 [facility] Comment on above: Performed By: #### C MIKKI, LIVER #### [facility] [address] [place] [address] Dr. Agueda Wiley NEUT # 11.1 103/ul Critically high 1.4-6.5 [facility] Comment on above: Performed By: #### C MIKKI, LIVER #### [facility] [address] [place] [address] Dr. Agueda Wiley Neutrophils/100 WBC (Bld) 82.6 % Critically high 43.0-75.0 [facility] Comment on above: Performed By: #### C MIKKI, LIVER #### [facility] [address] [place] [address] Dr. Agueda Wiley Platelet mean volume (Bld) [Entitic vol] 11.3 fL Normal 9.5-13.5 [facility] Comment on above: Performed By: #### C MIKKI, LIVER #### [facility] [address] [place] [address] Dr. Agueda Wiley PLT 245 103/ul Normal 150-450 [facility] Comment on above: Performed By: #### C MIKKI, LIVER #### [facility] [address] [place] [address] Dr. Agueda Wiley RBC 4.30 106/ul Normal 4.20-5.40 [facility] Comment on above: Performed By: #### C MIKKI, LIVER #### [facility] [address] [place] [address] Dr. Agueda Wiley WBC 13.5 103/ul Critically high 4.0-11.0 [facility] Comment on above: Performed By: #### C MIKKI, LIVER #### [facility] [address] [place] [address] Dr. Agueda Wiley CREATININEon 11-27-2022 Creatinine [Mass/Vol] 1.13 mg/dL Critically high 0.55-1.02 [facility] Comment on above: Performed By: #### C MIKKI, LIVER #### [facility] [address] [place] [address] Dr. Agueda Wiley EGFR-AF [place] 58 mL/min/1.73m2 Critically low >=60 [facility] Comment on above: Performed By: #### C MIKKI, LIVER #### [facility] [address] [place] [address] Dr. Agueda Wiley EGFR-NON AF [place] 48 mL/min/1.73m2 Critically low >=60 [facility] Comment on above: Performed By: #### C MIKKI, LIVER #### [facility] [address] [place] [address] Dr. Agueda Wiley LIVER PROFILEon 11-27-2022 Albumin [Mass/Vol] 3.4 g/dL Normal 3.4-5.0 [facility] Comment on above: Performed By: #### C MIKKI, LIVER #### [facility] [address] [place] [address] Dr. Agueda Wiley Albumin/Globulin [Mass ratio] 1.0 {ratio} Normal [facility] Comment on above: Performed By: #### C MIKKI, LIVER #### [facility] [address] [place] [address] Dr. Agueda Wiley ALP [Catalytic activity/Vol] 67 U/L Normal 46-116 [facility] Comment on above: Performed By: #### C MIKKI, LIVER #### [facility] [address] [place] [address] Dr. gAueda Wiley ALT [Catalytic activity/Vol] 37 U/L Normal 14-59 [facility] Comment on above: Performed By: #### C MIKKI, LIVER #### [facility] [address] [place] [address] Dr. Agueda Wiley AST [Catalytic activity/Vol] 20 U/L Normal 15-37 [facility] Comment on above: Performed By: #### C MIKKI, LIVER #### [facility] [address] [place] [address] Dr. Agueda Wiley BILI, CONJUGATED 0.1 mg/dL Normal 0.0-0.2 [facility] Comment on above: Performed By: #### C MIKKI, LIVER #### [facility] [address] [place] [address] Dr. Agueda Wiley Bilirubin [Mass/Vol] 0.4 mg/dL Normal 0.2-1.0 [facility] Comment on above: Performed By: #### C MIKKI, LIVER #### [facility] [address] [place] [address] Dr. Agueda Wiley Globulin (S) [Mass/Vol] 3.4 g/dL Normal [facility] Comment on above: Performed By: #### C MIKKI, LIVER #### [facility] [address] [place] [address] Dr. Agueda Wiley Protein [Mass/Vol] 6.8 g/dL Normal 6.4-8.2 [facility] Comment on above: Performed By: #### C MIKKI, LIVER #### [facility] [address] [place] [address] Dr. Agueda Wiley SED RATE Merged with [facility] 2022 SED RATE 17 mm/hr Normal <=30 [facility] Comment on above: Performed By: #### C MIKKI, LIVER #### [facility] [address] [place] [address] Dr. Agueda Wiley CBC AUTO DIFFon 10-05-2022 BASO # 0.0 103/ul Normal 0.0-0.1 [facility] Comment on above: Performed By: #### C MIKKI, LIVER #### [facility] [address] [place] [address] Dr. Agueda Wiley Basophils/100 WBC (Bld) 0.3 % Normal 0.2-2.0 [facility] Comment on above: Performed By: #### C MIKKI, LIVER #### [facility] [address] [place] [address] Dr. Agueda Wiley EO # 0.1 103/ul Normal 0.0-0.7 [facility] Comment on above: Performed By: #### C MIKKI, LIVER #### [facility] [address] [place] [address] Dr. Agueda Wiley Eosinophils/100 WBC (Bld) 0.6 % Critically low 0.9-7.0 [facility] Comment on above: Performed By: #### C MIKKI, LIVER #### [facility] [address] [place] [address] Dr. Agueda Wiley Erythrocyte distribution width (RBC) [Ratio] 14.0 % Normal 11.0-15.0 [facility] Comment on above: Performed By: #### C MIKKI, LIVER #### [facility] [address] [place] [address] Dr. Agueda Wiley Hematocrit (Bld) [Volume fraction] 38.5 % Normal 36.0-48.0 [facility] Comment on above: Performed By: #### C MIKKI, LIVER #### [facility] [address] [place] [address] Dr. Agueda Wiley Hemoglobin (Bld) [Mass/Vol] 13.3 g/dL Normal 12.0-16.0 [facility] Comment on above: Performed By: #### C MIKKI, LIVER #### [facility] [address] [place] [address] Dr. Agueda Wiley IG # 0.03 10e3/ul Normal 0.00-0.03 [facility] Comment on above: Performed By: #### C MIKKI, LIVER #### [facility] [address] [address] [address] Agueda Wiley IG % 0.3 % Normal 0.0-0.5 [facility] Comment on above: Performed By: #### C MIKKI, LIVER #### [facility] [address] [address] [address] Agueda Wiley LYMPH # 1.2 103/ul Normal 1.2-3.8 [facility] Comment on above: Performed By: #### C MIKKI, LIVER #### [facility] [address] [address] [address] Agueda Wiley Lymphocytes/100 WBC (Bld) 10.3 % Critically low 20.5-60.0 [facility] Comment on above: Performed By: #### C MIKKI, LIVER #### [facility] [address] [address] [address] Agueda Wiley MANUAL DIFF REQ NO Normal [facility] Comment on above: Performed By: #### C MIKKI, LIVER #### [facility] [address] [address] [address] Agueda Wiley MCH (RBC) [Entitic mass] 29.1 pg Normal 26.7-34.0 [facility] Comment on above: Performed By: #### C MIKKI, LIVER #### [facility] [address] [address] [address] Agueda Wiley MCHC (RBC) [Mass/Vol] 34.5 g/dL Normal 29.9-35.2 [facility] Comment on above: Performed By: #### C MIKKI, LIVER #### [facility] [address] [address] [address] Agueda Wiley MCV (RBC) [Entitic vol] 84.2 fL Normal 81.0-99.0 [facility] Comment on above: Performed By: #### C MIKKI, LIVER #### [facility] [address] [address] [address] Agueda Wiley MONO # 0.6 103/ul Normal 0.3-0.8 [facility] Comment on above: Performed By: #### C MIKKI, LIVER #### [facility] [address] [place] [address] Dr. Agueda Wiley Monocytes/100 WBC (Bld) 5.0 % Normal 1.7-12.0 [facility] Comment on above: Performed By: #### C MIKKI, LIVER #### [facility] [address] [place] [address] Dr. Agueda Wiley NEUT # 9.9 103/ul Critically high 1.4-6.5 [facility] Comment on above: Performed By: #### C MIKKI, LIVER #### [facility] [address] [place] [address] Dr. Agueda Wiley Neutrophils/100 WBC (Bld) 83.5 % Critically high 43.0-75.0 [facility] Comment on above: Performed By: #### C MIKKI, LIVER #### [facility] [address] [place] [address] Dr. Agueda Wiley Platelet mean volume (Bld) [Entitic vol] 10.8 fL Normal 9.5-13.5 [facility] Comment on above: Performed By: #### C MIKKI, LIVER #### [facility] [address] [place] [address] Dr. Agueda Wiley PLT 265 103/ul Normal 150-450 [facility] Comment on above: Performed By: #### C MIKKI, LIVER #### [facility] [address] [place] [address] Dr. Agueda Wiley RBC 4.57 106/ul Normal 4.20-5.40 [facility] Comment on above: Performed By: #### C MIKKI, LIVER #### [facility] [address] [place] [address] Dr. Agueda Wiley WBC 11.9 103/ul Critically high 4.0-11.0 [facility] Comment on above: Performed By: #### C MIKKI, LIVER #### [facility] [address] [place] [address] Dr. Agueda Wilye CREATININEon 10-05-2022 Creatinine [Mass/Vol] 0.92 mg/dL Normal 0.55-1.02 [facility] Comment on above: Performed By: #### C MIKKI, LIVER #### [facility] [address] [place] [address] Dr. Agueda Wiley EGFR-AF [place] >60 Normal >=60 [facility] Comment on above: Performed By: #### C MIKKI, LIVER #### [facility] [address] [place], [place] [address] Dr. Agueda Wiley EGFR-NON AF [place] >60 Normal >=60 [facility] Comment on above: Performed By: #### C MIKKI, LIVER #### [facility] [address] [place] [address] Dr. Agueda Wiley LIVER PROFILEon 10-05-2022 Albumin [Mass/Vol] 3.4 g/dL Normal 3.4-5.0 [facility] Comment on above: Performed By: #### Gila KAYE, LIVER #### [facility] [address] [place] [address] Dr. Agueda Wiley Albumin/Globulin [Mass ratio] 1.0 {ratio} Normal [facility] Comment on above: Performed By: #### Gila KAYE, LIVER #### [facility] [address] [place] [address] Dr. Agueda Wiley ALP [Catalytic activity/Vol] 90 U/L Normal 46-116 [facility] Comment on above: Performed By: #### C MIKKI, LIVER #### [facility] [address] [place] [address] Dr. Agueda Wiley ALT [Catalytic activity/Vol] 35 U/L Normal 14-59 [facility] Comment on above: Performed By: #### C MIKKI, LIVER #### [facility] [address] [place] [address] Dr. Agueda Wiley AST [Catalytic activity/Vol] 21 U/L Normal 15-37 [facility] Comment on above: Performed By: #### C MIKKI, LIVER #### [facility] [address] [place] [address] Dr. Agueda Wiley BILI, CONJUGATED 0.1 mg/dL Normal 0.0-0.2 [facility] Comment on above: Performed By: #### C MIKKI, LIVER #### [facility] [address] [place] [address] Dr. Agueda Wiley Bilirubin [Mass/Vol] 0.6 mg/dL Normal 0.2-1.0 [facility] Comment on above: Performed By: #### C MIKKI, LIVER #### [facility] [address] [address] [address] Agueda Wiley Globulin (S) [Mass/Vol] 3.5 g/dL Normal [facility] Comment on above: Performed By: #### C MIKKI, LIVER #### [facility] [address] [place] [address] Dr. Agueda Wiley Protein [Mass/Vol] 6.9 g/dL Normal 6.4-8.2 [facility] Comment on above: Performed By: #### C MIKKI, LIVER #### [facility] [address] [place] [address] Dr. Agueda Wiley SED RATE Merged with [facility] 2022 SED RATE 27 mm/hr Normal <=30 [facility] Comment on above: Performed By: #### C MIKKI, LIVER #### [facility] [address] [place] [address] Dr. Agueda Wiley XR hand RT min 3V*on 023 XR hand RT min 3V* [facility] [employer] Other XR hand RT min 3V* [facility] [employer] Other XR hand RT min 3V* [address] [place] [address] [employer] Other XR hand RT min 3V* [facility] [employer] [facility] [employer] Other XR hand RT min 3V* XRay Report [employer] [facility] [employer] Other XR hand RT min 3V* Signed [employer] [facility] [employer] Other XR hand RT min 3V* Patient: Reba Gregory MR#: [id number] [employer] Other XR hand RT min 3V* : 1955 Acct:[id number] [employer] Other XR hand RT min 3V* Age/Sex: 66 / F ADM Date: 09/23/22 [employer] Other XR hand RT min 3V* Loc: [facility] Room: Type : [facility] [employer] Other XR hand RT min 3V* Attending Dr: Kim Munson MD [employer] Other XR hand RT min 3V* Copies to: Kiana Munson MD [employer] Other XR hand RT min 3V* Ordering Provider: Kiana Munson MD [employer] Other XR hand RT min 3V* Date of Service: 09/23/22 [employer] Other XR hand RT min 3V* XR/XR hand RT min 3V*: Lesion of finger [employer] Other XR hand RT min 3V* RIGHT HAND - 4 views [employer] Other XR hand RT min 3V* REASON FOR EXAM: Rig ht fourth digit ischemia for one month. Mass on top of right fourth digit. [employer] Other XR hand RT min 3V* COMPARISON: None [facility] Other XR hand RT min 3V* FINDINGS: [employer] Other XR hand RT min 3V* No focal soft tissue abnormality is seen. No radiopaque foreign body. No acute bony process is [employer] Other XR hand RT min 3V* noted. Mild degenera tive changes involving the CMC joint of the thumb. No bony erosions are noted. [employer] Other XR hand RT min 3V* X R/XR hand RT min 3V* [employer] Other XR hand RT min 3V* IMPRESSION: [employer] Other XR hand RT min 3V* MILD DEGENERATIVE CH ANGES WITHOUT ACUTE BONY PROCESS. [employer] Other XR hand RT min 3V* Impression dictated by: Dave Espana Jr., D.O.09/23/2022 4:30 PM [facility] Other XR hand RT min 3V* Dictation Location: [place] [address] [employer] Other XR hand RT min 3V* Transcribed By: PWS 09/23/22 1630 [facility] Other XR hand RT min 3V* Dictated By: Dave Espana Jr DO 09/23/22 1629 [facility] Other XR hand RT min 3V* Signed By: [employer] Other XR hand RT min 3V* 09/23/22 1630 [facility] Other Creatinine (Bld) [Mass/Vol]O rdered By: George Ryan on 09-08-2022 Creatinine [Mass/Vol] 0.9 mg/dL 0.6-1.3 [facility] Comment on above: ER/ESD physician [...] n 09-04-2022 Anticardiolipin Ab, IgG <10 Normal [facility] Comment on above: Result Comment: Refe rence Range: Negative: <15 Indeterminate: 15 - 20 Low to medium positive: >20 - 80 High positive: >80 Performed By: #### C MIKKI, LIVER #### [facility] [address] [place] [address] Dr. Agueda Wiley Anticardiolipin Ab, IgM 34 MPL Critically high [facility] Comment on above: Result Comment: Refe rence Range: Negative: <13 Indeterminate: 13 - 20 Low to medium positive: >20 - 80 High positive: >80 Performed By: #### C MIKKI, LIVER #### [facility] [address] [address] [address] Agueda Wiley APTT 1:1 911 OPERATOR NIY [facility] Comment on above: Result Comment: Test ing Not Indicated This test was developed and its performance characteristics determined by [facility]. It has not been cleared or approved by the [place] Food and Drug Administration. Performed By: #### C MIKKI, LIVER #### [facility] [address] [place] [address] Dr. Agueda Wiley APTT 1:1 Saline NIY Normal [facility] Comment on above: Result Comment: Test ing Not Indicated This test was developed and its performance characteristics determined by [facility]. It has not been cleared or approved by the [place] Food and Drug Administration. Performed By: #### C MIKKI, LIVER #### [facility] [address] [place] [address] Dr. Agueda Wiley aPTT Coag (Bld) [Time] 23.9 s [facility] Comment on above: Result Comment: This test has not been validated for monitoring unfractionated heparin therapy. aPTT-based therapeutic ranges for unfractionated heparin therapy have not been established. Consider ordering Heparin anti-Xa (unfractionated). Reference Range: 18 years and older: 22.9 - 30.2 Performed By: #### C MIKKI, LIVER #### [facility] [address] [place] [address] Dr. Agueda Wiley Beta-2 Glycoprotein I, IgA <10 Normal [facility] Comment on above: Result Comment: The reference interval reflects a 3SD or 99th percentile interval. Reference Range: Negative: <26 Performed By: #### C MIKKI, LIVER #### [facility] [address] [address] [address] Agueda Wiley Beta-2 Glycoprotein I, IgG <10 Normal [facility] Comment on above: Result Comment: The reference interval reflects a 3SD or 99th percentile interval. Reference Range: Negative: <21 Performed By: #### C MIKKI, LIVER #### [facility] [address] [address] [address] Agueda Wiley Beta-2 Glycoprotein I, IgM <10 Normal [facility] Comment on above: Result Comment: The reference interval reflects a 3SD or 99th percentile interval. Reference Range: Negative: <33 Performed By: #### C MIKKI, LIVER #### [facility] [address] [place] [address] Dr. Agueda Wiley DRVVT Confirm Seconds NIY Normal [facility] Comment on above: Result Comment: Test ing Not Indicated Performed By: #### C MIKKI, LIVER #### [facility] [address] [place] [address] Dr. Agueda Wiley DRVVT Ratio NIY Normal [facility] Comment on above: Result Comment: Test ing Not Indicated Performed By: #### C [place]KKI, LIVER #### [facility] [address] [place] [address] Dr. Agueda Wiley DRVVT Screen Seconds 39.3 sec Normal [facility] Comment on above: Result Comment: Refe rence Range: <= 47.0 Performed By: #### C MIKKI, LIVER #### [facility] [address] [place] [address] Dr. Agueda Wiley Hexagonal Phospholipid Neutral 1 sec Normal [facility] Comment on above: Result Comment: This value is NEGATIVE. This is a qualitative assay and is therefore reported as positive for lupus anticoagulant or negative. The quantitative value is provided as an aid in diagnosis. Reference Range: 0 - 11 Performed By: #### C [place]KKI, LIVER #### [facility] [address] [place] [address] Dr. Agueda Wiley INR Coag (PPP) [Relative time] 1.0 {INR} Normal [facility] Comment on above: Result Comment: Refe rence Range: >1 month: 0.9 - 1.2 Performed By: #### C MIKKI LIVER #### [facility] [address] [address] [address] Agueda Wiley LAC Interpretation Comment Normal [facility] Comment on above: Result Comment: A [...] repeat testing may be indicated. Please contact [facility] if further clarification is needed. Performed By: #### C [place]KKI LIVER #### [facility] [address] [place] [address] Dr. Agueda Wiley Platelet Neutralization 0.0 sec Normal [facility] Comment on above: Result Comment: Refe rence Range: 0.0 - 3.0 This test was developed and its performance characteristics determined by [employer]. It has not been cleared or approved by the Food and Drug Administration. Performed By: #### C [place]KKI LIVER #### [facility] [address] [place] [address] Dr. Agueda Wiley PT Coag (PPP) [Time] 10.6 s Normal [facility] Comment on above: Result Comment: Refe rence Range: 18 years and older: 9.1 - 12.0 Performed By: #### C [place]KKI LIVER #### [facility] [address] [place] [address] Dr. Agueda Wiley Thrombin Time 17.2 sec Normal [facility] Comment on above: Result Comment: Refe rence Range: 0.0 - 23.0 Performed By: #### C [place]KKI LIVER #### [facility] [address] [place] [address] Dr. Agueda Wiley VAL by IFAon 09-03-2022 Antinuclear Antibodies, IFA Positive Abnormal [facility] Comment on above: Result Comment: Nega tive <1:80 Borderline 1:80 Positive >1:80 Performed By: #### A NAIFA #### [facility] [facility] [address] [address] [address] Agueda Wiley Centriole Pattern Normal The [facility] Comment on above: Performed By: #### A NAIFA #### [facility] [address] [address] [address] Agueda Wiley Centromere Pattern Normal The [facility] Comment on above: Performed By: #### A NAIFA #### [facility] [address] [address] [address] Agueda Wiley Homogeneous Pattern 1:320 Critically high [facility] Comment on above: Result Comment: ICAP nomenclature: AC-1 Performed By: #### A NAIFA #### [facility] [address] [address] [address] Agueda Wiley Midbody Pattern Normal [facility] Comment on above: Performed By: #### A NAIFA #### [facility] [address] [address] [address] Agueda Wiley Note: Comment Normal [facility] Comment on above: Result Comment: For [...] titers Nucleosomes, Histones Drug-induced SLE Speckled Sm, AUTO HEADLIGHT MECHANIC, SCL-70, SLE,MCTD,PSS (diffuse form), SS-A/SS-B Sjogrens Nucleolar SCL-70, PM-1/SCL High titers Scleroderma, PM/DM Centromere Centromere PSS (limited form) w/Crest syndrome variable Nuclear Dot [id number] Primary Biliary Cirrhosis Nuclear GP210, Primary Biliary Cirrhosis Membrane hank A,B,C Performed By: #### A DUANE #### [facility] [address] [place] [address] Dr. Agueda Wiley Nuclear Dot Pattern Normal The [facility] Comment on above: Performed By: #### A DUANE #### [facility] [address] [address] [address] Agueda Wiley Nuclear Membrane Pattern Normal [facility] Comment on above: Performed By: #### A UDAYIFA #### [facility] [address] [address] [address] Agueda Wiley Nucleolar Pattern Normal [facility] Comment on above: Performed By: #### A NAIFA #### [facility] [address] [address] [address] Agueda Wiley PCNA Pattern Normal [facility] Comment on above: Performed By: #### A NAIFA #### [facility] [address] [address] [address] Agueda Wiley Speckled Pattern Normal [facility] Comment on above: Performed By: #### A NAIFA #### [facility] [address] [address] [address] Agueda Wiley Spindle Apparatus Pattern Normal [facility] Comment on above: Performed By: #### A NAIFA #### [facility] [address] [address] [address] Agueda Wilye ANTI-DNA DS ABon 09-01-2022 Anti-DNA (DS) Ab Qn 1 IU/mL Normal 0-9 [facility] Comment on above: Result Comment: Nega tive <5 Equivocal 5 - 9 Positive >9 Performed By: #### C MIKKI LIVER #### [facility] [address] [place] [address] Dr. Agueda Wiley ANTICHROMATIN ANTIBODIESon 1 11-02-2021 Antichromatin Antibodies <0.2 Normal 0.0-0.9 [facility] Comment on above: Performed By: #### C MIKKI LIVER #### [facility] [address] [address] [address] Agueda Wiley C3 and C4 COMPLEMENTon 09-01 Complement C3, Serum 79 mg/dL Critically low 82-167 [facility] Comment on above: Performed By: #### C MIKKI LIVER #### [facility] [address] [address] [address] Agueda Wiley Complement C4, Serum 18 mg/dL Normal 12-38 [facility] Comment on above: Performed By: #### C MIKKI, LIVER #### [facility] [address] [address] [address] Agueda Wiley COMPLEMENT TOTAL (CH50)on Complement, Total (CH50) >60 Normal >41 [facility] Comment on above: Result Comment: Age [...] values. Performed By: #### C SUITE #### [facility] [address] [place] [address] Dr. Agueda Wiley AUTO HEADLIGHT MECHANIC ANTIBODIESon 09-01-2022 AUTO HEADLIGHT MECHANIC Antibodies 0.2 AI Normal 0.0-0.9 [facility] Comment on above: Performed By: #### R NPAB #### [facility] [address] [address] [address] Agueda Wiley SJOGRENS ANTIBODIES (Anti SS A/B)on 09-01-2022 Sjogren's Anti-SS-A <0.2 Normal 0.0-0.9 [facility] Comment on above: Performed By: #### C SUITE #### [facility] [address] [place] [address] Dr. Agueda Wiley Sjogren's Anti-SS-B <0.2 Normal 0.0-0.9 The [facility] Comment on above: Performed By: #### C SUITE #### [facility] [address] [place] [address] Dr. Agueda Wiley RAMOS ANTIBODIESon Ramos Antibodies 1.0 AI Critically high 0.0-0.9 [facility] Comment on above: Performed By: #### R NPAB #### [facility] [address] [place] [address] Dr. Agueda Wiley CBC AUTO DIFFon 08-31-2022 BASO # 0.1 103/ul Normal 0.0-0.1 [facility] Comment on above: Performed By: #### R NPAB #### [facility] [address] [address] [address] Agueda Wiley Basophils/100 WBC (Bld) 0.7 % Normal 0.2-2.0 [facility] Comment on above: Performed By: #### R NPAB #### [facility] [address] [address] [address] Agueda Wiley EO # 0.4 103/ul Normal 0.0-0.7 [facility] Comment on above: Performed By: #### R NPAB #### [facility] [address] [address] [address] Agueda Wiley Eosinophils/100 WBC (Bld) 6.1 % Normal 0.9-7.0 [facility] Comment on above: Performed By: #### R NPAB #### [facility] [address] [place] [address] Dr. Agueda Wiley Erythrocyte distribution width (RBC) [Ratio] 13.6 % Normal 11.0-15.0 [facility] Comment on above: Performed By: #### R NPAB #### [facility] [address] [address] [address] Agueda Wiley Hematocrit (Bld) [Volume fraction] 40.4 % Normal 36.0-48.0 [facility] Comment on above: Performed By: #### R NPAB #### [facility] [address] [address] [address] Agueda Wiley Hemoglobin (Bld) [Mass/Vol] 12.9 g/dL Normal 12.0-16.0 [facility] Comment on above: Performed By: #### R NPAB #### [facility] [address] [address] [address] Agueda Wiley IG # 0.04 10e3/ul Critically high 0.00-0.03 [facility] Comment on above: Performed By: #### R NPAB #### [facility] [address] [address] [address] Agueda Wiley IG % 0.6 % Critically high 0.0-0.5 [facility] Comment on above: Performed By: #### R NPAB #### [facility] [address] [address] [address] Agueda Wiley LYMPH # 1.4 103/ul Normal 1.2-3.8 [facility] Comment on above: Performed By: #### R NPAB #### [facility] [address] [address] [address] Agueda Wiley Lymphocytes/100 WBC (Bld) 20.6 % Normal 20.5-60.0 [facility] Comment on above: Performed By: #### R NPAB #### [facility] [address] [address] [address] Agueda Wiley MANUAL DIFF REQ NO Normal [facility] Comment on above: Performed By: #### R NPAB #### [facility] [address] [place] [address] Dr. Agueda Wiley MCH (RBC) [Entitic mass] 29.0 pg Normal 26.7-34.0 [facility] Comment on above: Performed By: #### R NPAB #### [facility] [address] [place] [address] Dr. Agueda Wiley MCHC (RBC) [Mass/Vol] 31.9 g/dL Normal 29.9-35.2 [facility] Comment on above: Performed By: #### R NPAB #### [facility] [address] [place] [address] Dr. Agueda Wiley MCV (RBC) [Entitic vol] 90.8 fL Normal 81.0-99.0 [facility] Comment on above: Performed By: #### R NPAB #### [facility] [address] [address] [address] Agueda Wiley MONO # 0.8 103/ul Normal 0.3-0.8 [facility] Comment on above: Performed By: #### R NPAB #### [facility] [address] [place] [address] Dr. Agueda Wiley Monocytes/100 WBC (Bld) 10.9 % Normal 1.7-12.0 [facility] Comment on above: Performed By: #### R NPAB #### [facility] [address] [address] [address] Agueda Wiley NEUT # 4.2 103/ul Normal 1.4-6.5 [facility] Comment on above: Performed By: #### R NPAB #### [facility] [address] [place] [address] Dr. Agueda Wiley Neutrophils/100 WBC (Bld) 61.1 % Normal 43.0-75.0 [facility] Comment on above: Performed By: #### R NPAB #### [facility] [address] [place] [address] Dr. Agueda Wiley Platelet mean volume (Bld) [Entitic vol] 10.9 fL Normal 9.5-13.5 [facility] Comment on above: Performed By: #### R NPAB #### [facility] [address] [place] [address] Dr. Agueda Wiley PLT 324 103/ul Normal 150-450 [facility] Comment on above: Performed By: #### R NPAB #### [facility] [address] [place] [address] Dr. Agueda Wiley RBC 4.45 106/ul Normal 4.20-5.40 [facility] Comment on above: Performed By: #### R NPAB #### [facility] [address] [place] [address] Dr. Agueda Wiley WBC 6.9 103/ul Normal 4.0-11.0 [facility] Comment on above: Performed By: #### R NPAB #### [facility] [address] [place] [address] Dr. Agueda Wiley CREATININEon 08-31-2022 Creatinine [Mass/Vol] 1.00 mg/dL Normal 0.55-1.02 [facility] Comment on above: Performed By: #### A NAIFA #### [facility] [address] [place] [address] Dr. Agueda Wiley EGFR-AF [place] >60 Normal >=60 [facility] Comment on above: Performed By: #### A NAIFA #### [facility] [address] [address] [address] Agueda Wiley EGFR-NON AF [place] 55 mL/min/1.73m2 Critically low >=60 [facility] Comment on above: Performed By: #### A NAIFA #### [facility] [address] [address] [address] Agueda Wiley CRPon 08-31-2022 CRP 0.8 mg/dL Normal <=1.0 [facility] Comment on above: Performed By: #### C MIKKI, LIVER #### [facility] [address] [address] [address] Agueda Wiley [facility] SED [facility]ATE 85 mm/hr Critically high <=30 [facility] Comment on above: Performed By: #### C MIKKI, LIVER #### [facility] [address] [address] [address] Agueda Wiley STOOL CULTUREon 08-18-2022 Campylobacter Culture Final report Normal [facility] Comment on above: Performed By: #### C MIKKI, LIVER #### [facility] [address] [address] [address] Agueda Wiley E coli Shiga Toxin EIA Negative Normal Negative [facility] Comment on above: Performed By: #### C MIKKI, LIVER #### [facility] [address] [address] [address] Agueda Wiley Result 1 Comment Normal [facility] Comment on above: Result Comment: No S almonella or Shigella recovered. Performed By: #### C MIKKI, LIVER #### [facility] [address] [address] [address] Agueda Wiley Result Comment: No C ampylobacter species isolated. Salmonella/Shigella Screen Final report Normal [facility] Comment on above: Performed By: #### C MIKKI, LIVER #### [facility] [address] [address] [address] Agueda Wiley C. DIFF PCRon 08-14-2022 C. DIFFICILE PCR Positive Critically abnormal NEGATIVE [facility] Comment on above: Performed By: #### R NPAB #### [facility] [address] [place] [address] Dr. Agueda Wiley IMMUNOFIXATION(ERIN),PROTEIN ELEC(PE),[facility] Albumin [Mass/Vol] 3.8 g/dL Normal 2.9-4.4 [facility] Comment on above: Performed By: #### A NAIFA #### [facility] [address] [place] [address] Dr. Agueda Wiley Albumin/Globulin [Mass ratio] 1.3 {ratio} Normal 0.7-1.7 [facility] Comment on above: Performed By: #### A NAIFA #### [facility] [address] [place] [address] Dr. Agueda Wiley Tphei-6-Ugbtcjql 0.3 g/dL Normal 0.0-0.4 [facility] Comment on above: Performed By: #### A NAIFA #### [facility] [address] [place] [address] Dr. Agueda Wiley Uwvbo-7-Ieyvhhxt 0.9 g/dL Normal 0.4-1.0 [facility] Comment on above: Performed By: #### A NAIFA #### [facility] [address] [place] [address] Dr. Agueda Wiley Beta Globulin 1.0 g/dL Normal 0.7-1.3 [facility] Comment on above: Performed By: #### A NAIFA #### [facility] [address] [place] [address] Dr. Agueda Wiley Free Trenton Lt Chains,S 28.5 mg/L Critically high 3.3-19.4 [facility] Comment on above: Performed By: #### A NAIFA #### [facility] [address] [place] [address] Dr. Agueda Wiley Free Lambda Lt Chains,S 16.7 mg/L Normal 5.7-26.3 [facility] Comment on above: Performed By: #### A NAIFA #### [facility] [address] [address] [address] Agueda Wiley Gamma Globulin 0.8 g/dL Normal 0.4-1.8 [facility] Comment on above: Performed By: #### A NAIFA #### [facility] [address] [place] [address] Dr. Agueda Wiley Globulin (S) [Mass/Vol] 3.0 g/dL Normal 2.2-3.9 [facility] Comment on above: Performed By: #### A NAIFA #### [facility] [address] [place] [address] Dr. Agueda Wiley Immunofixation Result, Serum Comment Normal [facility] Comment on above: Result Comment: No m onoclonality detected. Performed By: #### A NAIFA #### [facility] [address] [place] [address] Dr. Agueda Wiley Immunoglobulin A, Qn, Serum 179 mg/dL Normal 87-352 [facility] Comment on above: Performed By: #### A NAIFA #### [facility] [address] [place] [address] Dr. Agueda Wiley Immunoglobulin G, Qn, Serum 902 mg/dL Normal 586-1602 [facility] Comment on above: Performed By: #### A NAIFA #### [facility] [address] [place] [address] Dr. Agueda Wiley Immunoglobulin M, Qn, Serum 81 mg/dL Normal 26-217 [facility] Comment on above: Performed By: #### A NAIFA #### [facility] [address] [place] [address] Dr. Agueda Wiley Trenton/Lambda Ratio, S 1.71 Critically high 0.26-1.65 [facility] Comment on above: Performed By: #### A NAIFA #### [facility] [address] [place] [address] Dr. Agueda Wiley M-Richard Not Observed Normal Not Observed [facility] Comment on above: Performed By: #### A NAIFA #### [facility] [address] [place] [address] Dr. Agueda Wiley PDF . Normal [facility] Comment on above: Performed By: #### A NAIFA #### [facility] [address] [place] [address] Dr. Agueda Wiley Please note: Comment Normal [facility] Comment on above: Result Comment: Prot ein electrophoresis scan will follow via computer, mail, or trustee of estate delivery. Performed By: #### A NAIFA #### [facility] [address] [place] [address] Dr. Agueda Wiley Protein [Mass/Vol] 6.8 g/dL Normal 6.0-8.5 [facility] Comment on above: Performed By: #### A NAIFA #### [facility] [address] [place] [address] Dr. Agueda Wiley IMMUNOGLOBULINS IGA/IGM/IGG QUANTITATIVEon 08-14-2022 Immunoglobulin A, Qn, Serum 182 mg/dL Normal 87-352 [facility] Comment on above: Performed By: #### C MIKKI, LIVER #### [facility] [address] [place] [address] Dr. Agueda Wiley Immunoglobulin G, Qn, Serum 923 mg/dL Normal 586-1602 [facility] Comment on above: Performed By: #### Gila KAYE, LIVER #### [facility] [address] [place] [address] Dr. Agueda Wiley Immunoglobulin M, Qn, Serum 82 mg/dL Normal 26-217 [facility] Comment on above: Performed By: #### C MIKKI, LIVER #### [facility] [address] [place] [address] Dr. Agueda Wiley CBC AUTO DIFFon 08-13-2022 BASO # 0.0 103/ul Normal 0.0-0.1 [facility] Comment on above: Performed By: #### R NPAB #### [facility] [address] [place] [address] Dr. Agueda Wiley Basophils/100 WBC (Bld) 0.4 % Normal 0.2-2.0 [facility] Comment on above: Performed By: #### R NPAB #### [facility] [address] [place] [address] Dr. Agueda Wiley EO # 0.2 103/ul Normal 0.0-0.7 [facility] Comment on above: Performed By: #### R NPAB #### [facility] [address] [place] [address] Dr. Agueda Wiley Eosinophils/100 WBC (Bld) 1.9 % Normal 0.9-7.0 [facility] Comment on above: Performed By: #### R NPAB #### [facility] [address] [place] [address] Dr. Agueda Wiley Erythrocyte distribution width (RBC) [Ratio] 13.8 % Normal 11.0-15.0 [facility] Comment on above: Performed By: #### R NPAB #### [facility] [address] [place] [address] Dr. Agueda Wiley Hematocrit (Bld) [Volume fraction] 41.4 % Normal 36.0-48.0 [facility] Comment on above: Performed By: #### R NPAB #### [facility] [address] [place] [address] Dr. Agueda Wiley Hemoglobin (Bld) [Mass/Vol] 13.5 g/dL Normal 12.0-16.0 [facility] Comment on above: Performed By: #### R NPAB #### [facility] [address] [place] [address] Dr. Agueda Wiley IG # 0.02 10e3/ul Normal 0.00-0.03 [facility] Comment on above: Performed By: #### R NPAB #### [facility] [address] [place] [address] Dr. Agueda Wiley IG % 0.2 % Normal 0.0-0.5 [facility] Comment on above: Performed By: #### R NPAB #### [facility] [address] [place] [address] Dr. Agueda Wiley LYMPH # 2.0 103/ul Normal 1.2-3.8 [facility] Comment on above: Performed By: #### R NPAB #### [facility] [address] [address] [address] Agueda Wiley Lymphocytes/100 WBC (Bld) 20.5 % Normal 20.5-60.0 [facility] Comment on above: Performed By: #### R NPAB #### [facility] [address] [place] [address] Dr. Agueda Wiley MANUAL DIFF REQ NO Normal [facility] Comment on above: Performed By: #### R NPAB #### [facility] [address] [place] [address] Dr. Agueda Wiley MCH (RBC) [Entitic mass] 29.1 pg Normal 26.7-34.0 [facility] Comment on above: Performed By: #### R NPAB #### [facility] [address] [place] [address] Dr. Agueda Wiley MCHC (RBC) [Mass/Vol] 32.6 g/dL Normal 29.9-35.2 [facility] Comment on above: Performed By: #### R NPAB #### [facility] [address] [place] [address] Dr. Agueda Wiley MCV (RBC) [Entitic vol] 89.2 fL Normal 81.0-99.0 [facility] Comment on above: Performed By: #### R NPAB #### [facility] [address] [place] [address] Dr. Agueda Wiley MONO # 0.8 103/ul Normal 0.3-0.8 [facility] Comment on above: Performed By: #### R NPAB #### [facility] [address] [place] [address] Dr. Agueda Wiley Monocytes/100 WBC (Bld) 8.6 % Normal 1.7-12.0 [facility] Comment on above: Performed By: #### R NPAB #### [facility] [address] [place] [address] Dr. Agueda Wiley NEUT # 6.6 103/ul Critically high 1.4-6.5 [facility] Comment on above: Performed By: #### R NPAB #### [facility] [address] [address] [address] Agueda Wiley Neutrophils/100 WBC (Bld) 68.4 % Normal 43.0-75.0 [facility] Comment on above: Performed By: #### R NPAB #### [facility] [address] [address] [address] Agueda Wiley Platelet mean volume (Bld) [Entitic vol] 10.0 fL Normal 9.5-13.5 [facility] Comment on above: Performed By: #### R NPAB #### [facility] [address] [place] [address] Dr. Agueda Wiley PLT 379 103/ul Normal 150-450 [facility] Comment on above: Performed By: #### R NPAB #### [facility] [address] [place] [address] Dr. Agueda Wiley RBC 4.64 106/ul Normal 4.20-5.40 [facility] Comment on above: Performed By: #### R NPAB #### [facility] [address] [place] [address] Dr. Agueda Wiley WBC 9.7 103/ul Normal 4.0-11.0 [facility] Comment on above: Performed By: #### R NPAB #### [facility] [address] [place] [address] Dr. Agueda Wiley CRPon 08-13-2022 CRP 0.2 mg/dL Normal <=1.0 [facility] Comment on above: Performed By: #### A NAIFA #### [facility] [address] [place] [address] Dr. Agueda Wiley PROF 14(COMP METB)on 022 Albumin [Mass/Vol] 3.4 g/dL Normal 3.4-5.0 [facility] Comment on above: Performed By: #### A NAIFA #### [facility] [address] [place] [address] Dr. Agueda Wiley Albumin/Globulin [Mass ratio] 0.8 {ratio} Normal [facility] Comment on above: Performed By: #### A NAIFA #### [facility] [address] [address] [address] Agueda Wiley ALP [Catalytic activity/Vol] 94 U/L Normal 46-116 [facility] Comment on above: Performed By: #### A NAIFA #### [facility] [address] [place] [address] Dr. Agueda Wiley ALT [Catalytic activity/Vol] 16 U/L Normal 14-59 [facility] Comment on above: Performed By: #### A NAIFA #### [facility] [address] [address] [address] Agueda Wiley Anion gap [Moles/Vol] 13.0 mmol/L Normal [facility] Comment on above: Performed By: #### A NAIFA #### [facility] [address] [place] [address] Dr. Agueda Wiley AST [Catalytic activity/Vol] 13 U/L Critically low 15-37 [facility] Comment on above: Performed By: #### A NAIFA #### [facility] [address] [place] [address] Dr. Agueda Wiley Bilirubin [Mass/Vol] 0.3 mg/dL Normal 0.2-1.0 [facility] Comment on above: Performed By: #### A NAIFA #### [facility] [address] [place] [address] Dr. Agueda Wiley Calcium [Mass/Vol] 9.1 mg/dL Normal 8.5-10.1 [facility] Comment on above: Performed By: #### A NAIFA #### [facility] [address] [place] [address] Dr. Agueda Wiley Chloride [Moles/Vol] 103 mmol/L Normal 98-107 [facility] Comment on above: Performed By: #### A NAIFA #### [facility] [address] [place] [address] Dr. Agueda Wiley CO2 [Moles/Vol] 25.8 mmol/L Normal 21.0-32.0 [facility] Comment on above: Performed By: #### A NAIFA #### [facility] [address] [address] [address] Agueda Wiley Creatinine [Mass/Vol] 0.94 mg/dL Normal 0.55-1.02 [facility] Comment on above: Performed By: #### A NAIFA #### [facility] [address] [address] [address] Agueda Wiley EGFR-AF [place] >60 Normal >=60 [facility] Comment on above: Performed By: #### A NAIFA #### [facility] [address] [address] [address] Agueda Wiley EGFR-NON AF [place] 59 mL/min/1.73m2 Critically low >=60 [facility] Comment on above: Performed By: #### A NAIFA #### [facility] [address] [place] [address] Dr. Agueda Wiley Globulin (S) [Mass/Vol] 4.1 g/dL Normal [facility] Comment on above: Performed By: #### A NAIFA #### [facility] [address] [address] [address] Agueda Wiley Glucose [Mass/Vol] 110 mg/dL Critically high 74-106 [facility] Comment on above: Performed By: #### A NAIFA #### [facility] [address] [address] [address] Agueda Wiley Potassium [Moles/Vol] 3.8 mmol/L Normal 3.5-5.1 [facility] Comment on above: Performed By: #### A NAIFA #### [facility] [address] [address] [address] Agudea Wiley Sodium [Moles/Vol] 138 mmol/L Normal 136-145 [facility] Comment on above: Performed By: #### A NAIFA #### [facility] [address] [address] [address] Agueda Wiley Urea nitrogen [Mass/Vol] 20.0 mg/dL Critically high 7.0-18.0 [facility] Comment on above: Performed By: #### A NAIFA #### [facility] [address] [place] [address] Dr. Agueda Wiley Urea nitrogen/Creatinine [Mass ratio] 21.3 mg/mg Normal [facility] Comment on above: Performed By: #### A NAIFA #### [facility] [address] [place] [address] Dr. Agueda Wiley SED RATE WESTERGRENon 2021 SED RATE 82 mm/hr Critically high <=30 [facility] Comment on above: Performed By: #### R NPAB #### [facility] [address] [place] [address] Dr. Agueda Wiley TOTAL PROTEIN SERUMon 2021 Protein [Mass/Vol] 7.5 g/dL Normal 6.4-8.2 [facility] Comment on above: Performed By: #### A NAIFA #### [facility] [address] [place] [address] Dr. Agueda Wiley XR CHEST 2 Von 08-13-2022 XR CHEST 2 V EXAMINATION: XR CHES T 2 V HISTORY: Mucopurulent chronic bronchitis COMPARISON: [...] TENZIN GENTILE Date: 2022-08-13 18:41 Normal [facility] CBC AUTO DIFFon 08-04-2022 BASO # 0.1 103/ul Normal 0.0-0.1 [facility] Comment on above: Performed By: #### A NAIFA #### [facility] [address] [place] [address] Dr. Agueda Wiley Basophils/100 WBC (Bld) 0.5 % Normal 0.2-2.0 [facility] Comment on above: Performed By: #### A NAIFA #### [facility] [address] [place] [address] Dr. Agueda Wiley EO # 0.1 103/ul Normal 0.0-0.7 [facility] Comment on above: Performed By: #### A NAIFA #### [facility] [address] [place] [address] Dr. Agueda Wiley Eosinophils/100 WBC (Bld) 0.7 % Critically low 0.9-7.0 [facility] Comment on above: Performed By: #### A NAIFA #### [facility] [address] [place] [address] Dr. Agueda Wiley Erythrocyte distribution width (RBC) [Ratio] 14.3 % Normal 11.0-15.0 [facility] Comment on above: Performed By: #### A NAIFA #### [facility] [address] [place] [address] Dr. Agueda Wiley Hematocrit (Bld) [Volume fraction] 37.3 % Normal 36.0-48.0 [facility] Comment on above: Performed By: #### A NAIFA #### [facility] [address] [place] [address] Dr. Agueda Wiley Hemoglobin (Bld) [Mass/Vol] 12.1 g/dL Normal 12.0-16.0 [facility] Comment on above: Performed By: #### A NAIFA #### [facility] [address] [place] [address] Dr. Agueda Wiley IG # 0.03 10e3/ul Normal 0.00-0.03 [facility] Comment on above: Performed By: #### A NAIFA #### [facility] [address] [place] [address] Dr. Agueda Wiley IG % 0.3 % Normal 0.0-0.5 [facility] Comment on above: Performed By: #### A NAIFA #### [facility] [address] [place] [address] Dr. Agueda Wiley LYMPH # 1.5 103/ul Normal 1.2-3.8 [facility] Comment on above: Performed By: #### A NAIFA #### [facility] [address] [place] [address] Dr. Agueda Wiley Lymphocytes/100 WBC (Bld) 15.8 % Critically low 20.5-60.0 [facility] Comment on above: Performed By: #### A NAIFA #### [facility] [address] [place] [address] Dr. Agueda Wiley MANUAL DIFF REQ NO Normal [facility] Comment on above: Performed By: #### A NAIFA #### [facility] [address] [place] [address] Dr. Agueda Wiley MCH (RBC) [Entitic mass] 29.6 pg Normal 26.7-34.0 [facility] Comment on above: Performed By: #### A NAIFA #### [facility] [address] [place] [address] Dr. Agueda Wiley MCHC (RBC) [Mass/Vol] 32.4 g/dL Normal 29.9-35.2 [facility] Comment on above: Performed By: #### A NAIFA #### [facility] [address] [place] [address] Dr. Agueda Wiley MCV (RBC) [Entitic vol] 91.2 fL Normal 81.0-99.0 [facility] Comment on above: Performed By: #### A NAIFA #### [facility] [address] [place] [address] Dr. Agueda Wiley MONO # 0.6 103/ul Normal 0.3-0.8 [facility] Comment on above: Performed By: #### A NAIFA #### [facility] [address] [place] [address] Dr. Agueda Wiley Monocytes/100 WBC (Bld) 6.2 % Normal 1.7-12.0 [facility] Comment on above: Performed By: #### A NAIFA #### [facility] [address] [place] [address] Dr. Agueda Wiley NEUT # 7.2 103/ul Critically high 1.4-6.5 [facility] Comment on above: Performed By: #### A NAIFA #### [facility] [address] [address] [address] Agueda Wiley Neutrophils/100 WBC (Bld) 76.5 % Critically high 43.0-75.0 [facility] Comment on above: Performed By: #### A NAIFA #### [facility] [address] [address] [address] Agueda Wiley Platelet mean volume (Bld) [Entitic vol] 11.0 fL Normal 9.5-13.5 [facility] Comment on above: Performed By: #### A NAIFA #### [facility] [address] [address] [address] Agueda Wiley PLT 298 103/ul Normal 150-450 [facility] Comment on above: Performed By: #### A NAIFA #### [facility] [address] [place] [address] Dr. Agueda Wiley RBC 4.09 106/ul Critically low 4.20-5.40 [facility] Comment on above: Performed By: #### A NAIFA #### [facility] [address] [address] [address] Agueda Wiley WBC 9.5 103/ul Normal 4.0-11.0 [facility] Comment on above: Performed By: #### A NAIFA #### [facility] [address] [address] [address] Agueda Wiley CREATININEon 08-04-2022 Creatinine [Mass/Vol] 0.93 mg/dL Normal 0.55-1.02 [facility] Comment on above: Performed By: #### C MIKKI, LIVER #### [facility] [address] [address] [address] Agueda Wiley EGFR-AF [place] >60 Normal >=60 [facility] Comment on above: Performed By: #### C [place]KKI, LIVER #### [facility] [address] [address] [address] Agueda Wiley EGFR-NON AF [place]IZ[place] =60 Normal >=60 [facility] Comment on above: Performed By: #### C [place]KKI, LIVER #### [facility] [address] [address] [address] Agueda Wiley LIVER PROFILEon 08-04-2022 Albumin [Mass/Vol] 3.0 g/dL Critically low 3.4-5.0 [facility] Comment on above: Performed By: #### C [place]KKI, LIVER #### [facility] [address] [address] [address] Agueda Wiley Albumin/Globulin [Mass ratio] 0.7 {ratio} Normal [facility] Comment on above: Performed By: #### C [place]KKI, LIVER #### [facility] [address] [place] [address] Dr. Agueda Wiley ALP [Catalytic activity/Vol] 94 U/L Normal 46-116 [facility] Comment on above: Performed By: #### C [place]KKI, LIVER #### [facility] [address] [place] [address] Dr. Agueda Wiley ALT [Catalytic activity/Vol] 20 U/L Normal 14-59 [facility] Comment on above: Performed By: #### C [place]KKI, LIVER #### [facility] [address] [place] [address] Dr. Agueda Wiley AST [Catalytic activity/Vol] 15 U/L Normal 15-37 [facility] Comment on above: Performed By: #### C [place]KKI, LIVER #### [facility] [address] [address] [address] Agueda Wiley BILI, CONJUGATED 0.1 mg/dL Normal 0.0-0.2 [facility] Comment on above: Performed By: #### C [place]KKI, LIVER #### [facility] [address] [place] [address] Dr. Agueda Wiley Bilirubin [Mass/Vol] 0.4 mg/dL Normal 0.2-1.0 [facility] Comment on above: Performed By: #### C [place]KKI, LIVER #### [facility] [address] [place] [address] Dr. Agueda Wiley Globulin (S) [Mass/Vol] 4.3 g/dL Normal [facility] Comment on above: Performed By: #### C [place]KKI, LIVER #### [facility] [address] [place] [address] Dr. Agueda Wiley Protein [Mass/Vol] 7.3 g/dL Normal 6.4-8.2 [facility] Comment on above: Performed By: #### C [place]KKI, LIVER #### [facility] [address] [place] [address] Dr. Agueda Wiley SED RATE WESTERGRENon 2021 SED RATE 105 mm/hr Critically high <=30 [facility] Comment on above: Performed By: #### R NPAB #### [facility] [address] [place] [address] Dr. Agueda Wiley CBC AUTO DIFFon 06-09-2022 BASO # 0.1 103/ul Normal 0.0-0.1 [facility] Comment on above: Performed By: #### A NAIFA #### [facility] [address] [place] [address] Dr. Agueda Wiley Basophils/100 WBC (Bld) 0.7 % Normal 0.2-2.0 [facility] Comment on above: Performed By: #### A NAIFA #### [facility] [address] [place] [address] Dr. Agueda Wiley EO # 0.4 103/ul Normal 0.0-0.7 [facility] Comment on above: Performed By: #### A NAIFA #### [facility] [address] [place] [address] Dr. Agueda Wiley Eosinophils/100 WBC (Bld) 3.6 % Normal 0.9-7.0 [facility] Comment on above: Performed By: #### A NAIFA #### [facility] [address] [place] [address] Dr. Agueda Wiley Erythrocyte distribution width (RBC) [Ratio] 13.6 % Normal 11.0-15.0 [facility] Comment on above: Performed By: #### A NAIFA #### [facility] [address] [place] [address] Dr. Agueda Wiley Hematocrit (Bld) [Volume fraction] 38.5 % Normal 36.0-48.0 [facility] Comment on above: Performed By: #### A NAIFA #### [facility] [address] [place] [address] Dr. Agueda Wiley Hemoglobin (Bld) [Mass/Vol] 12.4 g/dL Normal 12.0-16.0 [facility] Comment on above: Performed By: #### A NAIFA #### [facility] [address] [address] [address] Agueda Wiley IG # 0.07 10e3/ul Critically high 0.00-0.03 [facility] Comment on above: Performed By: #### A NAIFA #### [facility] [address] [place] [address] Dr. Agueda Wiley IG % 0.6 % Critically high 0.0-0.5 [facility] Comment on above: Performed By: #### A NAIFA #### [facility] [address] [place] [address] Dr. Agueda iWley LYMPH # 2.1 103/ul Normal 1.2-3.8 [facility] Comment on above: Performed By: #### A NAIFA #### [facility] [address] [place] [address] Dr. Agueda Wiley Lymphocytes/100 WBC (Bld) 17.7 % Critically low 20.5-60.0 [facility] Comment on above: Performed By: #### A NAIFA #### [facility] [address] [place] [address] Dr. Agueda Wiley MANUAL DIFF REQ NO Normal [facility] Comment on above: Performed By: #### A NAIFA #### [facility] [address] [place] [address] Dr. Agueda Wiley MCH (RBC) [Entitic mass] 29.4 pg Normal 26.7-34.0 [facility] Comment on above: Performed By: #### A NAIFA #### [facility] [address] [place] [address] Dr. Agueda Wiley MCHC (RBC) [Mass/Vol] 32.2 g/dL Normal 29.9-35.2 [facility] Comment on above: Performed By: #### A NAIFA #### [facility] [address] [place] [address] Dr. Agueda Wiley MCV (RBC) [Entitic vol] 91.2 fL Normal 81.0-99.0 [facility] Comment on above: Performed By: #### A NAIFA #### [facility] [address] [place] [address] Dr. Agueda Wiley MONO # 1.1 103/ul Critically high 0.3-0.8 [facility] Comment on above: Performed By: #### A NAIFA #### [facility] [address] [place] [address] Dr. Agueda Wiley Monocytes/100 WBC (Bld) 9.4 % Normal 1.7-12.0 [facility] Comment on above: Performed By: #### A NAIFA #### [facility] [address] [place] [address] Dr. Agueda Wiley NEUT # 8.0 103/ul Critically high 1.4-6.5 [facility] Comment on above: Performed By: #### A NAIFA #### [facility] [address] [place] [address] Dr. Agueda Wiley Neutrophils/100 WBC (Bld) 68.0 % Normal 43.0-75.0 [facility] Comment on above: Performed By: #### A NAIFA #### [facility] [address] [place] [address] Dr. Agueda Wiley Platelet mean volume (Bld) [Entitic vol] 10.7 fL Normal 9.5-13.5 [facility] Comment on above: Performed By: #### A NAIFA #### [facility] [address] [place] [address] Dr. Agueda Wiley PLT 417 103/ul Normal 150-450 [facility] Comment on above: Performed By: #### A NAIFA #### [facility] [address] [address] [address] Agueda Wiley RBC 4.22 106/ul Normal 4.20-5.40 [facility] Comment on above: Performed By: #### A NAIFA #### [facility] [address] [address] [address] Agueda Wiley WBC 11.8 103/ul Critically high 4.0-11.0 [facility] Comment on above: Performed By: #### A NAIFA #### [facility] [address] [address] [address] Agueda Wiley PROF CHEM 8 (BAS METB)on Anion gap [Moles/Vol] 15.3 mmol/L Normal [facility] Comment on above: Performed By: #### C [place]KKI, LIVER #### [facility] [address] [place] [address] Dr. Agueda Wiley Calcium [Mass/Vol] 8.8 mg/dL Normal 8.5-10.1 [facility] Comment on above: Performed By: #### C [place]KKI, LIVER #### [facility] [address] [address] [address] Agueda Wiley Chloride [Moles/Vol] 106 mmol/L Normal 98-107 [facility] Comment on above: Performed By: #### C [place]KKI, LIVER #### [facility] [address] [address] [address] Agueda Wiley CO2 [Moles/Vol] 23.7 mmol/L Normal 21.0-32.0 [facility] Comment on above: Performed By: #### C [place]KKI, LIVER #### [facility] [address] [address] [address] Agueda Wiley Creatinine [Mass/Vol] 1.10 mg/dL Critically high 0.55-1.02 [facility] Comment on above: Performed By: #### C [place]KKI, LIVER #### [facility] [address] [address] [address] Agueda Wiley EGFR-AF [place] 60 mL/min/1.73m2 Normal >=60 [facility] Comment on above: Performed By: #### C [place]KKI, LIVER #### [facility] [address] [address] [address] Agueda Wiley EGFR-NON AF [place] 50 mL/min/1.73m2 Critically low >=60 [facility] Comment on above: Performed By: #### C [place]KKI, LIVER #### [facility] [address] [place] [address] Dr. Agueda Wiley Glucose [Mass/Vol] 126 mg/dL Critically high 74-106 [facility] Comment on above: Performed By: #### C [place]KKI, LIVER #### [facility] [address] [place] [address] Dr. Agueda Wiley Potassium [Moles/Vol] 4.0 mmol/L Normal 3.5-5.1 [facility] Comment on above: Performed By: #### C [place]KKI, LIVER #### [facility] [address] [place] [address] Dr. Agueda Wiley Sodium [Moles/Vol] 141 mmol/L Normal 136-145 [facility] Comment on above: Performed By: #### C [place]KKI, LIVER #### [facility] [address] [place] [address] Dr. Agueda Wiley Urea nitrogen [Mass/Vol] 14.0 mg/dL Normal 7.0-18.0 [facility] Comment on above: Performed By: #### C [place]KKI, LIVER #### [facility] [address] [place] [address] Dr. Agueda Wiley Urea nitrogen/Creatinine [Mass ratio] 12.7 mg/mg Normal [facility] Comment on above: Performed By: #### C [place]KKI, LIVER #### [facility] [address] [place] [address] Dr. Agueda Wiley XR femur LT 2V*on 05-28-2022 XR femur LT 2V* [facility] [employer] Other XR femur LT 2V* [facility] [employer] Other XR femur LT 2V* [facility] Other XR femur LT 2V* [place] [address] [facility] Other XR femur LT 2V* XRay Report [facility] [employer] Other XR femur LT 2V* Signed [facility] [employer] Other XR femur LT 2V* Patient: Reba Gregory MR#: [id number] [facility] [employer] Other XR femur LT 2V* : 1955 Acct:[id number] [facility] [employer] Other XR femur LT 2V* Age/Sex: 66 / F ADM Date: 05/28/22 [facility] [employer] Other XR femur LT 2V* Loc: [facility] Room: Type : [facility] [employer] Other XR femur LT 2V* Attending Dr: Nabor Nelson II, MD [employer] Other XR femur LT 2V* Copies to: Nabor Nelson MD [facility] Other XR femur LT 2V* Ordering Provider: Ragini Nelson MD [facility] Other XR femur LT 2V* Date of Service: 05/28/22 [facility] [employer] Other XR femur LT 2V* XR/XR femur LT 2V*: Aftercare following joint replacement surgery [facility] [employer] Other XR femur LT 2V* ([id number]) XR/XR tibia fibula LT 2V*: Aftercare following joint replacement surgery [facility] [employer] Other XR femur LT 2V* ([id number]) XR/XR knee LT 2V: Aftercare following joint replacement surgery [facility] [employer] Other XR femur LT 2V* XR tibia fibula LT 2 V*, XR knee LT 2V, XR femur LT 2V* 05/28/2022 8:18 AM [employer] Other XR femur LT 2V* SIGNS AND SYMPTOMS: Aftercare following joint replacement surgery [facility] Other XR femur LT 2V* PROTOCOL: Frontal radiographs of the left femur, left knee, and left tibia and fibula [employer] Other XR femur LT 2V* COMPARISON: 04/16/2022 [employer] Other XR femur LT 2V* FINDINGS: [employer] [facility] [employer] Other XR femur LT 2V* The bones are in val tomic alignment. There is total left knee arthroplasty hardware without [employer] Other XR femur LT 2V* hardware complicatio n or malalignment. No fracture or dislocation. The visualized bony ring of the [employer] Other XR femur LT 2V* pelvis is grossly intact. [employer] Other XR femur LT 2V* X R/XR tibia fibula LT 2V* [employer] Other XR femur LT 2V* IMPRESSION: [employer] Other XR femur LT 2V* Status post total le ft knee arthroplasty hardware placement without hardware complication or [employer] Other XR femur LT 2V* malalignment. [employer] Other XR femur LT 2V* Impression dictated by: Michael Benítez M.D.05/28/2022 11:51 AM [employer] Other XR femur LT 2V* Dictation Location: [place] [address] [employer] Other XR femur LT 2V* Transcribed By: TANYA 05/28/22 1151 [employer] Other XR femur LT 2V* Dictated By: Michael Benítez II, MD 05/28/22 1149 [employer] [facility] [employer] Other XR femur LT 2V* Signed By: [facility] [employer] Other XR femur LT 2V* 05/28/22 1151 [employer] Other CBC W MANUAL DIFFon 05-20-20 ATYPICAL LYMPH # Normal [facility] Comment on above: Performed By: #### A NAIFA #### [facility] [address] [place] [address] Dr. Agueda Wiley ATYPICAL LYMPH % Normal [facility] Comment on above: Performed By: #### A NAIFA #### [facility] [address] [place] [address] Dr. Agueda Wiley BAND # Normal 0.0-0.3 [facility] [facility] Comment on above: Performed By: #### A NAIFA #### [facility] [address] [place] [address] Dr. Agueda Wiley BAND % Normal 0-5 [facility] Comment on above: Performed By: #### A NAIFA #### [facility] [address] [place] [address] Dr. Agueda Wiley BASOM # 0.15 103/ul Critically high 0.00-0.10 [facility] Comment on above: Performed By: #### A NAIFA #### [facility] [address] [place] [address] Dr. Agueda Wiley BASOM % 1.0 % Normal 0.2-2.0 [facility] Comment on above: Performed By: #### A NAIFA #### [facility] [address] [place] [address] Dr. Agueda Wiley BLAST # Normal [facility] Comment on above: Performed By: #### A NAIFA #### [facility] [address] [place] [address] Dr. Agueda Wiley BLAST % Normal [facility] Comment on above: Performed By: #### A NAIFA #### [facility] [address] [place] [address] Dr. Agueda Wiley CORRECTED WBC Normal 4.0-11.0 [facility] Comment on above: Performed By: #### A NAIFA #### [facility] [address] [address] [address] Agueda Wiley EOS # 0.00 103/ul Normal 0.00-0.70 [facility] Comment on above: Performed By: #### A NAIFA #### [facility] [address] [address] [address] Agueda Wiley EOS% 0.0 % Critically low 0.9-7.0 [facility] Comment on above: Performed By: #### A NAIFA #### [facility] [address] [address] [address] Agueda Wiley HCT 34.4 % Critically low 36.0-48.0 [facility] Comment on above: Performed By: #### A NAIFA #### [facility] [address] [address] [address] Agueda Wiley HGB 11.1 g/dl Critically low 12.0-16.0 [facility] Comment on above: Performed By: #### A NAIFA #### [facility] [address] [address] [address] Agueda Wiley LYMPHM # 2.31 103/ul Normal 1.20-3.80 [facility] Comment on above: Performed By: #### A NAIFA #### [facility] [address] [address] [address] Agueda Wiley LYMPHM% 15.0 % Critically low 20.5-60.0 [facility] Comment on above: Performed By: #### A NAIFA #### [facility] [address] [address] [address] Agueda Wiley MCH 29.1 pg Normal 26.7-34.0 [facility] Comment on above: Performed By: #### A NAIFA #### [facility] [address] [address] [address] Agueda Wiley MCHC 32.3 g/dl Normal 29.9-35.2 [facility] Comment on above: Performed By: #### A NAIFA #### [facility] [address] [place] [address] Dr. Agueda Wiley MCV 90.3 fL Normal 81.0-99.0 [facility] Comment on above: Performed By: #### A NAIFA #### [facility] [address] [place] [address] Dr. Agueda Wiley METAMYELOCYTE # Normal [facility] Comment on above: Performed By: #### A NAIFA #### [facility] [address] [place] [address] Dr. Agueda Wiley METAMYELOCYTE % Normal [facility] Comment on above: Performed By: #### A NAIFA #### [facility] [address] [place] [address] Dr. Agueda Wiley MONOM# 1.39 103/ul Critically high 0.30-0.80 [facility] Comment on above: Performed By: #### A NAIFA #### [facility] [address] [place] [address] Dr. Agueda Wiley MONOM% 9.0 % Normal 1.7-12.0 [facility] Comment on above: Performed By: #### A NAIFA #### [facility] [address] [place] [address] Dr. Agueda Wiley MPV 11.0 fL Normal 9.5-13.5 [facility] Comment on above: Performed By: #### A NAIFA #### [facility] [address] [place] [address] Dr. Agueda Wiley MYELOCYTE # Normal [facility] Comment on above: Performed By: #### A NAIFA #### [facility] [address] [place] [address] Dr. Agueda Wiley MYELOCYTE % Normal [facility] Comment on above: Performed By: #### A NAIFA #### [facility] [address] [place] [address] Dr. Agueda Wiley NRBC Normal [facility] Comment on above: Performed By: #### A NAIFA #### [facility] [id number] Agueda Wiley PLT 333 103/ul Normal 150-450 [facility] Comment on above: Performed By: #### A NAIFA #### [facility] [address] [address] [address] Agueda Wiley RBC 3.81 106/ul Critically low 4.20-5.40 [facility] Comment on above: Performed By: #### A NAIFA #### [facility] [address] [address] [address] Agueda Wiley RDW 12.8 % Normal 11.0-15.0 [facility] Comment on above: Performed By: #### A NAIFA #### [facility] [address] [address] [address] Agueda Wiley SEG # 11.55 103/ul Critically high 1.40-6.50 [facility] Comment on above: Performed By: #### A NAIFA #### [facility] [address] [address] [address] Agueda Wiley SEG % 75.0 % Normal 43.0-75.0 [facility] Comment on above: Performed By: #### A NAIFA #### [facility] [address] [address] [address] Agueda Wiley WBC 15.4 103/ul Critically high 4.0-11.0 [facility] Comment on above: Performed By: #### A NAIFA #### [facility] [address] [address] [address] Agueda Wiley PROF 14(COMP METB)on 022 Albumin [Mass/Vol] 1.9 g/dL Critically low 3.4-5.0 [facility] Comment on above: Performed By: #### R NPAB #### [facility] [address] [place] [address] Dr. Agueda Wiley Albumin/Globulin [Mass ratio] 0.7 {ratio} Normal [facility] Comment on above: Performed By: #### R NPAB #### [facility] [address] [address] [address] Agueda Wiley ALP [Catalytic activity/Vol] 75 U/L Normal 46-116 [facility] Comment on above: Performed By: #### R NPAB #### [facility] [address] [address] [address] Agueda Wiley ALT [Catalytic activity/Vol] 18 U/L Normal 14-59 [facility] Comment on above: Performed By: #### R NPAB #### [facility] [address] [address] [address] Agueda Wiley Anion gap [Moles/Vol] 12.4 mmol/L Normal [facility] Comment on above: Performed By: #### R NPAB #### [facility] [address] [place] [address] Dr. Agueda Wiley AST [Catalytic activity/Vol] 20 U/L Normal 15-37 [facility] Comment on above: Performed By: #### R NPAB #### [facility] [address] [place] [address] Dr. Agueda Wiley Bilirubin [Mass/Vol] 0.2 mg/dL Normal 0.2-1.0 [facility] Comment on above: Performed By: #### R NPAB #### [facility] [address] [place] [address] Dr. Agueda Wiley Calcium [Mass/Vol] 7.7 mg/dL Critically low 8.5-10.1 [facility] Comment on above: Performed By: #### R NPAB #### [facility] [address] [place] [address] Dr. Agueda Wiley Chloride [Moles/Vol] 108 mmol/L Critically high 98-107 [facility] Comment on above: Performed By: #### R NPAB #### [facility] [address] [place] [address] Dr. Agueda Wiley CO2 [Moles/Vol] 21.9 mmol/L Normal 21.0-32.0 [facility] Comment on above: Performed By: #### R NPAB #### [facility] [address] [address] [address] Agueda Wiley Creatinine [Mass/Vol] 0.81 mg/dL Normal 0.55-1.02 [facility] Comment on above: Performed By: #### R NPAB #### [facility] [address] [address] [address] Agueda Wiley EGFR-AF [place] >60 Normal >=60 [facility] Comment on above: Performed By: #### R NPAB #### [facility] [address] [address] [address] Agueda Wiley EGFR-NON AF [place] >60 Normal >=60 [facility] Comment on above: Performed By: #### R NPAB #### [facility] [address] [place] [address] Dr. Agueda Wiley Globulin (S) [Mass/Vol] 2.6 g/dL Normal [facility] Comment on above: Performed By: #### R NPAB #### [facility] [address] [place] [address] Dr. Agueda Wiley Glucose [Mass/Vol] 102 mg/dL Normal 74-106 [facility] Comment on above: Performed By: #### R NPAB #### [facility] [address] [place] [address] Dr. Agueda Wiley Potassium [Moles/Vol] 3.3 mmol/L Critically low 3.5-5.1 [facility] Comment on above: Performed By: #### R NPAB #### [facility] [address] [place] [address] Dr. Agueda Wiley Protein [Mass/Vol] 4.5 g/dL Critically low 6.4-8.2 [facility] Comment on above: Performed By: #### R NPAB #### [facility] [address] [place] [address] Dr. Agueda Wiley Sodium [Moles/Vol] 139 mmol/L Normal 136-145 [facility] Comment on above: Performed By: #### R NPAB #### [facility] [address] [address] [address] Agueda Wiley Urea nitrogen [Mass/Vol] 7.0 mg/dL Normal 7.0-18.0 [facility] Comment on above: Performed By: #### R NPAB #### [facility] [address] [place] [address] Dr. Agueda Wiley Urea nitrogen/Creatinine [Mass ratio] 8.6 mg/mg Normal [facility] Comment on above: Performed By: #### R NPAB #### [facility] [address] [place] [address] Dr. Agueda Wiley CBC AUTO DIFFon 05-19-2022 BASO # 0.1 103/ul Normal 0.0-0.1 [facility] Comment on above: Performed By: #### C MIKKI, LIVER #### [facility] [address] [place] [address] Dr. Agueda Wiley Basophils/100 WBC (Bld) 0.4 % Normal 0.2-2.0 [facility] Comment on above: Performed By: #### C [place]KKI, LIVER #### [facility] [address] [place] [address] Dr. Agueda Wiley EO # 0.3 103/ul Normal 0.0-0.7 [facility] Comment on above: Performed By: #### C [place]KKI, LIVER #### [facility] [address] [place] [address] Dr. Agueda Wiley Eosinophils/100 WBC (Bld) 1.5 % Normal 0.9-7.0 [facility] Comment on above: Performed By: #### C [place]KKI, LIVER #### [facility] [address] [place] [address] Dr. Agueda Wiley Erythrocyte distribution width (RBC) [Ratio] 12.5 % Normal 11.0-15.0 [facility] Comment on above: Performed By: #### C [place]KKI, LIVER #### [facility] [address] [place] [address] Dr. Agueda Wiley Hematocrit (Bld) [Volume fraction] 37.3 % Normal 36.0-48.0 [facility] Comment on above: Performed By: #### C [place]KKI, LIVER #### [facility] [address] [address] [address] Agueda Wiley Hemoglobin (Bld) [Mass/Vol] 12.0 g/dL Normal 12.0-16.0 [facility] Comment on above: Performed By: #### C [place]KKI, LIVER #### [facility] [address] [address] [address] Agueda Wiley IG # 0.59 10e3/ul Critically high 0.00-0.03 [facility] Comment on above: Performed By: #### C [place]KKI, LIVER #### [facility] [address] [place] [address] Dr. Agueda Wiley IG % 3.1 % Critically high 0.0-0.5 [facility] Comment on above: Performed By: #### C [place]KKI, LIVER #### [facility] [address] [place] [address] Dr. Agueda Wiley LYMPH # 1.7 103/ul Normal 1.2-3.8 [facility] Comment on above: Performed By: #### C [place]KKI, LIVER #### [facility] [address] [place] [address] Dr. Agueda Wiley Lymphocytes/100 WBC (Bld) 8.7 % Critically low 20.5-60.0 [facility] Comment on above: Performed By: #### C [place]KKI, LIVER #### [facility] [address] [place] [address] Dr. Agueda Wiley MANUAL DIFF REQ NO Normal [facility] Comment on above: Performed By: #### C [place]KKI, LIVER #### [facility] [address] [place] [address] Dr. Agueda Wiley MCH (RBC) [Entitic mass] 28.9 pg Normal 26.7-34.0 [facility] Comment on above: Performed By: #### C [place]KKI, LIVER #### [facility] [address] [place] [address] Dr. Agueda Wiley MCHC (RBC) [Mass/Vol] 32.2 g/dL Normal 29.9-35.2 [facility] Comment on above: Performed By: #### C [place]KKI, LIVER #### [facility] [address] [place] [address] Dr. Agueda Wiley MCV (RBC) [Entitic vol] 89.9 fL Normal 81.0-99.0 [facility] Comment on above: Performed By: #### C [place]KKI, LIVER #### [facility] [address] [place] [address] Dr. Agueda Wiley MONO # 1.3 103/ul Critically high 0.3-0.8 [facility] Comment on above: Performed By: #### C [place]KKI, LIVER #### [facility] [address] [place] [address] Dr. Agueda Wiley Monocytes/100 WBC (Bld) 6.8 % Normal 1.7-12.0 [facility] Comment on above: Performed By: #### C [place]KKI, LIVER #### [facility] [address] [place] [address] Dr. Agueda Wiley NEUT # 15.2 103/ul Critically high 1.4-6.5 [facility] Comment on above: Performed By: #### C [place]KKI, LIVER #### [facility] [address] [place] [address] Dr. Agueda Wiley Neutrophils/100 WBC (Bld) 79.5 % Critically high 43.0-75.0 [facility] Comment on above: Performed By: #### C [place]KKI, LIVER #### [facility] [address] [place] [address] Dr. Agueda Wiley Platelet mean volume (Bld) [Entitic vol] 10.3 fL Normal 9.5-13.5 [facility] Comment on above: Performed By: #### C [place]KKI, LIVER #### [facility] [address] [place] [address] Dr. Agueda Wiley PLT 328 103/ul Normal 150-450 [facility] Comment on above: Performed By: #### C [place]KKI, LIVER #### [facility] [address] [place] [address] Dr. Agueda Wiley RBC 4.15 106/ul Critically low 4.20-5.40 [facility] Comment on above: Performed By: #### C [place]KKI, LIVER #### [facility] [address] [place] [address] Dr. Agueda Wiley WBC 19.1 103/ul Critically high 4.0-11.0 [facility] Comment on above: Performed By: #### C [place]KKI, LIVER #### [facility] [address] [place] [address] Dr. Agueda Wiley PROF 14(COMP METB)on 022 Albumin [Mass/Vol] 2.0 g/dL Critically low 3.4-5.0 [facility] Comment on above: Performed By: #### R NPAB #### [facility] [address] [place] [address] Dr. Agueda Wiley Albumin/Globulin [Mass ratio] 0.7 {ratio} Normal [facility] Comment on above: Performed By: #### R NPAB #### [facility] [address] [place] [address] Dr. Agueda Wiley ALP [Catalytic activity/Vol] 94 U/L Normal 46-116 [facility] Comment on above: Performed By: #### R NPAB #### [facility] [address] [place] [address] Dr. Agueda Wiley ALT [Catalytic activity/Vol] 16 U/L Normal 14-59 [facility] Comment on above: Performed By: #### R NPAB #### [facility] [address] [place] [address] Dr. Agueda Wiley Anion gap [Moles/Vol] 13.3 mmol/L Normal [facility] Comment on above: Performed By: #### R NPAB #### [facility] [address] [place] [address] Dr. Agueda Wiley AST [Catalytic activity/Vol] 11 U/L Critically low 15-37 [facility] Comment on above: Performed By: #### R NPAB #### [facility] [address] [place] [address] Dr. Agueda Wiley Bilirubin [Mass/Vol] 0.3 mg/dL Normal 0.2-1.0 [facility] Comment on above: Performed By: #### R NPAB #### [facility] [address] [place] [address] Dr. Agueda Wiley Calcium [Mass/Vol] 7.8 mg/dL Critically low 8.5-10.1 Th [facility] Comment on above: Performed By: #### R NPAB #### [facility] [address] [address] [address] Agueda Wiley Chloride [Moles/Vol] 107 mmol/L Normal 98-107 [facility] Comment on above: Performed By: #### R NPAB #### [facility] [address] [place] [address] Dr. Agueda Wiley CO2 [Moles/Vol] 20.0 mmol/L Critically low 21.0-32.0 [facility] Comment on above: Performed By: #### R NPAB #### [facility] [address] [place] [address] Dr. Agueda Wiley Creatinine [Mass/Vol] 0.81 mg/dL Normal 0.55-1.02 [facility] Comment on above: Performed By: #### R NPAB #### [facility] [address] [place] [address] Dr. Agueda Wiley EGFR-AF [place] >60 Normal >=60 [facility] Comment on above: Performed By: #### R NPAB #### [facility] [address] [place] [address] Dr. Agueda Wiley EGFR-NON AF [place] >60 Normal >=60 [facility] Comment on above: Performed By: #### R NPAB #### [facility] [address] [place] [address] Dr. Agueda Wiley Globulin (S) [Mass/Vol] 3.0 g/dL Normal [facility] Comment on above: Performed By: #### R NPAB #### [facility] [address] [place] [address] Dr. Agueda Wiley Glucose [Mass/Vol] 113 mg/dL Critically high 74-106 [facility] Comment on above: Performed By: #### R NPAB #### [facility] [address] [address] [address] Agueda Wiley Potassium [Moles/Vol] 3.3 mmol/L Critically low 3.5-5.1 [facility] Comment on above: Performed By: #### R NPAB #### [facility] [address] [place] [address] Dr. Agueda Wiley Protein [Mass/Vol] 5.0 g/dL Critically low 6.4-8.2 [facility] Comment on above: Performed By: #### R NPAB #### [facility] [address] [place] [address] Dr. Agueda Wiley Sodium [Moles/Vol] 137 mmol/L Normal 136-145 [facility] Comment on above: Performed By: #### R NPAB #### [facility] [address] [place] [address] Dr. Agueda Wiley Urea nitrogen [Mass/Vol] 11.0 mg/dL Normal 7.0-18.0 [facility] Comment on above: Performed By: #### R NPAB #### [facility] [address] [place] [address] Dr. Agueda Wiley Urea nitrogen/Creatinine [Mass ratio] 13.6 mg/mg Normal [facility] Comment on above: Performed By: #### R NPAB #### [facility] [address] [place] [address] Dr. Agueda Wiley CBC W MANUAL DIFFon 05-18-20 22 ATYPICAL LYMPH # 0.23 103/ul Normal [facility] Comment on above: Performed By: #### C [place]KKI LIVER #### [facility] [address] [place] [address] Dr. Agueda Wiley ATYPICAL LYMPH % 1 % Normal [facility] Comment on above: Performed By: #### C [place]KKI LIVER #### [facility] [address] [place] [address] Dr. Agueda Wiley BAND # 0.0 103/ul Normal 0.0-0.3 [facility] Comment on above: Performed By: #### C [place]KKI, LIVER #### [facility] [address] [place] [address] Dr. Agueda Wiley BAND % 0 % Normal 0-5 [facility] Comment on above: Performed By: #### C [place]KKI, LIVER #### [facility] [address] [place] [address] Dr. Agueda Wiley BASOM # 0.00 103/ul Normal 0.00-0.10 [facility] Comment on above: Performed By: #### C [place]KKI, LIVER #### [facility] [address] [place] [address] Dr. Agueda Wiley BASOM % 0.0 % Critically low 0.2-2.0 [facility] Comment on above: Performed By: #### C [place]KKI, LIVER #### [facility] [address] [place] [address] Dr. Agueda Wiley BLAST # Normal [facility] Comment on above: Performed By: #### C [place]KKI, LIVER #### [facility] [address] [place] [address] Dr. Agueda Wiley BLAST % Normal [facility] Comment on above: Performed By: #### C [place]KKI, LIVER #### [facility] [address] [place] [address] Dr. Agueda Wiley CORRECTED WBC Normal 4.0-11.0 [facility] Comment on above: Performed By: #### C [place]KKI, LIVER #### [facility] [address] [place] [address] Dr. Agueda Wiley EOS # 0.23 103/ul Normal 0.00-0.70 [facility] Comment on above: Performed By: #### C [place]KKI, LIVER #### [facility] [address] [place] [address] Dr. Agueda Wiley EOS% 1.0 % Normal 0.9-7.0 [facility] Comment on above: Performed By: #### C [place]KKI, LIVER #### [facility] [address] [place] [address] Dr. Agueda Wiley HCT 35.7 % Critically low 36.0-48.0 [facility] Comment on above: Performed By: #### C [place]KKI, LIVER #### [facility] [address] [place] [address] Dr. Agueda Wiley HGB 11.6 g/dl Critically low 12.0-16.0 [facility] Comment on above: Performed By: #### C [place]KKI, LIVER #### [facility] [address] [address] [address] Agueda Wiley LYMPHM # 1.41 103/ul Normal 1.20-3.80 [facility] Comment on above: Performed By: #### C [place]KKI, LIVER #### [facility] [address] [place] [address] Dr. Agueda Wiley LYMPHM% 6.0 % Critically low 20.5-60.0 [facility] Comment on above: Performed By: #### C [place]KK[place], LIVER #### [facility] [facility] [address] [place] [address] Dr. Agueda Wiley MCH 29.4 pg Normal 26.7-34.0 [facility] Comment on above: Performed By: #### C MIKKI, LIVER #### [facility] [address] [place] [address] Dr. Agueda Wiley MCHC 32.5 g/dl Normal 29.9-35.2 [facility] Comment on above: Performed By: #### C MIKKI, LIVER #### [facility] [address] [place] [address] Dr. Agueda Wiley MCV 90.4 fL Normal 81.0-99.0 [facility] Comment on above: Performed By: #### C MIKKI, LIVER #### [facility] [address] [place] [address] Dr. Agueda Wiley METAMYELOCYTE # Normal [facility] Comment on above: Performed By: #### C MIKKI, LIVER #### [facility] [address] [place] [address] Dr. Agueda Wiley METAMYELOCYTE % Normal [facility] Comment on above: Performed By: #### C MIKKI, LIVER #### [facility] [address] [address] [address] Agueda Wiley MONOM# 0.94 103/ul Critically high 0.30-0.80 [facility] Comment on above: Performed By: #### C MIKKI, LIVER #### [facility] [address] [address] [address] Agueda Wiley MONOM% 4.0 % Normal 1.7-12.0 [facility] Comment on above: Performed By: #### C MIKKI, LIVER #### [facility] [address] [address] [address] Agueda Wiley MPV 10.5 fL Normal 9.5-13.5 [facility] Comment on above: Performed By: #### C MIKKI, LIVER #### [facility] [address] [address] [address] Agueda Wiley MYELOCYTE # Normal [facility] Comment on above: Performed By: #### C MIKKI, LIVER #### [facility] [address] [address] [address] Agueda Wiley MYELOCYTE % Normal [facility] Comment on above: Performed By: #### C MIKKI, LIVER #### [facility] [address] [address] [address] Agueda Wiley NRBC Normal [facility] Comment on above: Performed By: #### C MIKKI, LIVER #### [facility] [address] [address] [address] Agueda Wiley PLT 306 103/ul Normal 150-450 [facility] Comment on above: Performed By: #### C MIKKI, LIVER #### [facility] [address] [address] [address] Agueda Wiley RBC 3.95 106/ul Critically low 4.20-5.40 [facility] Comment on above: Performed By: #### C MIKKI, LIVER #### [facility] [address] [address] [address] Agueda Wiley RDW 12.6 % Normal 11.0-15.0 [facility] Comment on above: Performed By: #### C MIKKI, LIVER #### [facility] [address] [place] [address] Dr. Agueda Wiley SEG # 20.68 103/ul Critically high 1.40-6.50 [facility] Comment on above: Performed By: #### C MIKKI, LIVER #### [facility] [address] [place], [place] [address] Dr. Agueda Wiley SEG % 88.0 % Critically high 43.0-75.0 [facility] Comment on above: Performed By: #### C MIKKI, LIVER #### [facility] [address] [place] [address] Dr. Agueda Wiley WBC 23.5 103/ul Critically high 4.0-11.0 [facility] Comment on above: Performed By: #### C MIKKI, LIVER #### [facility] [address] [place] [address] Dr. Agueda Wiley PROF 14(COMP METB)on 022 Albumin [Mass/Vol] 1.8 g/dL Critically low 3.4-5.0 [facility] Comment on above: Performed By: #### C MIKKI, LIVER #### [facility] [address] [place] [address] Dr. Agueda Wiley Albumin/Globulin [Mass ratio] 0.6 {ratio} Normal [facility] Comment on above: Performed By: #### C MIKKI, LIVER #### [facility] [address] [place] [address] Dr. Agueda Wiley ALP [Catalytic activity/Vol] 107 U/L Normal 46-116 [facility] Comment on above: Performed By: #### C MIKKI, LIVER #### [facility] [address] [place] [address] Dr. Agueda Wiley ALT [Catalytic activity/Vol] 20 U/L Normal 14-59 [facility] Comment on above: Performed By: #### C MIKKI, LIVER #### [facility] [address] [place] [address] Dr. Agueda Wiley Anion gap [Moles/Vol] 14.6 mmol/L Normal [facility] Comment on above: Performed By: #### C MIKKI, LIVER #### [facility] [address] [place] [address] Dr. Agueda Wiley AST [Catalytic activity/Vol] 12 U/L Critically low 15-37 [facility] Comment on above: Performed By: #### C MIKKI, LIVER #### [facility] [address] [place] [address] Dr. Agueda Wiley Bilirubin [Mass/Vol] 0.3 mg/dL Normal 0.2-1.0 [facility] Comment on above: Performed By: #### C MIKKI, LIVER #### [facility] [address] [place] [address] Dr. Agueda Wiley Calcium [Mass/Vol] 7.5 mg/dL Critically low 8.5-10.1 [facility] Comment on above: Performed By: #### C MIKKI, LIVER #### [facility] [address] [place] [address] Dr. Agueda Wiley Chloride [Moles/Vol] 107 mmol/L Normal 98-107 [facility] Comment on above: Performed By: #### C MIKKI, LIVER #### [facility] [address] [place] [address] Dr. Agueda Wiley CO2 [Moles/Vol] 20.4 mmol/L Critically low 21.0-32.0 [facility] Comment on above: Performed By: #### C MIKKI, LIVER #### [facility] [address] [place] [address] Dr. Agueda Wiley Creatinine [Mass/Vol] 0.96 mg/dL Normal 0.55-1.02 [facility] Comment on above: Performed By: #### C MIKKI, LIVER #### [facility] [address] [place] [address] Dr. Agueda Wiley EGFR-AF [place] >60 Normal >=60 [facility] Comment on above: Performed By: #### C MIKKI, LIVER #### [facility] [address] [place] [address] Dr. Agueda Wiley EGFR-NON AF [place] 58 mL/min/1.73m2 Critically low >=60 [facility] Comment on above: Performed By: #### C MIKKI, LIVER #### [facility] [address] [place] [address] Dr. Agueda Wiley Globulin (S) [Mass/Vol] 2.9 g/dL Normal [facility] Comment on above: Performed By: #### C MIKKI, LIVER #### [facility] [address] [place] [address] Dr. Agueda Wiley Glucose [Mass/Vol] 93 mg/dL Normal 74-106 [facility] Comment on above: Performed By: #### C MIKKI, LIVER #### [facility] [address] [place] [address] Dr. Agueda Wiley Potassium [Moles/Vol] 3.0 mmol/L Critically low 3.5-5.1 [facility] Comment on above: Performed By: #### C MIKKI, LIVER #### [facility] [address] [place] [address] Dr. Agueda Wiley Protein [Mass/Vol] 4.7 g/dL Critically low 6.4-8.2 [facility] Comment on above: Performed By: #### C MIKKI, LIVER #### [facility] [address] [place] [address] Dr. Agueda Wiley Sodium [Moles/Vol] 138 mmol/L Normal 136-145 [facility] Comment on above: Performed By: #### C MIKKI, LIVER #### [facility] [address] [place] [address] Dr. Agueda Wiley Urea nitrogen [Mass/Vol] 18.0 mg/dL Normal 7.0-18.0 [facility] Comment on above: Performed By: #### C MIKKI, LIVER #### [facility] [address] [place] [address] Dr. Agueda Wiley Urea nitrogen/Creatinine [Mass ratio] 18.8 mg/mg Normal [facility] Comment on above: Performed By: #### C MIKKI, LIVER #### [facility] [address] [place] [address] Dr. Agueda Wiley AMYLASEon 05-17-2022 Amylase [Catalytic activity/Vol] 79 U/L Normal 25-115 [facility] Comment on above: Performed By: #### C SUITE #### [facility] [address] [place] [address] Dr. Agueda Wiley CBC W MANUAL DIFFon 05-17-20 22 ATYPICAL LYMPH # Normal [facility] Comment on above: Performed By: #### C MIKKI, LIVER #### [facility] [address] [place] [address] Dr. Agueda Wiley ATYPICAL LYMPH % Normal [facility] Comment on above: Performed By: #### C MIKKI, LIVER #### [facility] [address] [place] [address] Dr. Agueda Wiley BAND # Normal 0.0-0.3 [facility] Comment on above: Performed By: #### C MIKKI, LIVER #### [facility] [address] [place] [address] Dr. Agueda Wiley BAND % Normal 0-5 [facility] Comment on above: Performed By: #### C MIKKI, LIVER #### [facility] [address] [place] [address] Dr. Agueda Wiley BASOM # 0.00 103/ul Normal 0.00-0.10 [facility] Comment on above: Performed By: #### C MIKKI, LIVER #### [facility] [address] [place] [address] Dr. Agueda Wiley BASOM % 0.0 % Critically low 0.2-2.0 [facility] Comment on above: Performed By: #### C MIKKI, LIVER #### [facility] [address] [place] [address] Dr. Agueda Wiley BLAST # Normal [facility] Comment on above: Performed By: #### C MIKKI, LIVER #### [facility] [address] [place] [address] Dr. Agueda Wiley BLAST % Normal [facility] Comment on above: Performed By: #### C MIKKI, LIVER #### [facility] [address] [address] [address] Agueda Wiley CORRECTED WBC Normal 4.0-11.0 [facility] Comment on above: Performed By: #### C MIKKI, LIVER #### [facility] [address] [address] [address] Agueda Wiley EOS # 0.00 103/ul Normal 0.00-0.70 [facility] Comment on above: Performed By: #### C MIKKI, LIVER #### [facility] [address] [address] [address] Agueda Wiley EOS% 0.0 % Critically low 0.9-7.0 [facility] Comment on above: Performed By: #### C MIKKI, LIVER #### [facility] [address] [place] [address] Dr. Agueda Wiley HCT 43.3 % Normal 36.0-48.0 [facility] Comment on above: Performed By: #### C MIKKI, LIVER #### [facility] [address] [place] [address] Dr. Agueda Wiley HGB 14.4 g/dl Normal 12.0-16.0 [facility] Comment on above: Performed By: #### C MIKKI, LIVER #### [facility] [address] [place] [address] Dr. Agueda Wiley LYMPHM # 2.96 103/ul Normal 1.20-3.80 [facility] Comment on above: Performed By: #### C MIKKI, LIVER #### [facility] [address] [place] [address] Dr. Agueda Wiley LYMPHM% 10.0 % Critically low 20.5-60.0 [facility] Comment on above: Performed By: #### C MIKKI, LIVER #### [facility] [address] [place] [address] Dr. Agueda Wiley MCH 29.4 pg Normal 26.7-34.0 [facility] Comment on above: Performed By: #### C MIKKI, LIVER #### [facility] [address] [place] [address] Dr. Agueda Wiley MCHC 33.3 g/dl Normal 29.9-35.2 [facility] Comment on above: Performed By: #### C MIKKI, LIVER #### [facility] [address] [place] [address] Dr. Agueda Wiley MCV 88.5 fL Normal 81.0-99.0 [facility] Comment on above: Performed By: #### C MIKKI, LIVER #### [facility] [address] [place] [address] Dr. Agueda Wiley METAMYELOCYTE # Normal [facility] Comment on above: Performed By: #### C MIKKI, LIVER #### [facility] [address] [place] [address] Dr. Agueda Wiley METAMYELOCYTE % Normal [facility] Comment on above: Performed By: #### C MIKKI, LIVER #### [facility] [address] [place] [address] Dr. Agueda Wiley MONOM# 1.78 103/ul Critically high 0.30-0.80 [facility] Comment on above: Performed By: #### C MIKKI, LIVER #### [facility] [address] [place] [address] Dr. Agueda Wiley MONOM% 6.0 % Normal 1.7-12.0 [facility] Comment on above: Performed By: #### C MIKKI, LIVER #### [facility] [address] [place] [address] Dr. Agueda Wiley MPV 10.6 fL Normal 9.5-13.5 [facility] Comment on above: Performed By: #### C MIKKI, LIVER #### [facility] [address] [place] [address] Dr. Agueda Wiley MYELOCYTE # Normal [facility] Comment on above: Performed By: #### C MIKKI, LIVER #### [facility] [address] [place] [address] Dr. Agueda Wiley MYELOCYTE % Normal [facility] Comment on above: Performed By: #### C MIKKI, LIVER #### [facility] [address] [address] [address] Agueda Wiley NRBC Normal [facility] Comment on above: Performed By: #### C MIKKI, LIVER #### [facility] [address] [address] [address] Agueda Wiley PLT 383 103/ul Normal 150-450 [facility] Comment on above: Performed By: #### C MIKKI, LIVER #### [facility] [address] [address] [address] Agueda Wiley RBC 4.89 106/ul Normal 4.20-5.40 [facility] Comment on above: Performed By: #### C MIKKI, LIVER #### [facility] [address] [place] [address] Dr. Agueda Wiley RDW 12.7 % Normal 11.0-15.0 [facility] Comment on above: Performed By: #### C MIKKI, LIVER #### [facility] [address] [address] [address] Agueda Wiley SEG # 24.86 103/ul Critically high 1.40-6.50 [facility] Comment on above: Performed By: #### C MIKKI, LIVER #### [facility] [address] [place] [address] Dr. Agueda Wiley SEG % 84.0 % Critically high 43.0-75.0 [facility] Comment on above: Performed By: #### C MIKKI, LIVER #### [facility] [address] [place] [address] Dr. Agueda Wiley WBC 29.6 103/ul Critically high 4.0-11.0 [facility] Comment on above: Performed By: #### C MIKKI, LIVER #### [facility] [address] [place] [address] ABD/PELVIS WO CONon [...] Moderate to severe changes of pancolitis, likely infectious/inflammatory. Electronically authenticated by: FAY BERGERON Date: 2022-05-17 10:55 Normal [facility] CULTURE BLOODon 05-17-2022 Microscopic examination of blood, culture Culture Observations: NO GROWTH AT 5 DAYS. Normal [facility] Comment on above: Performed By: #### Gila KAYE LIVER #### [facility] [address], [place] [address] Dr. Agueda Wiley Microscopic examination of blood, culture Culture Observations: NO GROWTH AT 5 DAYS. Normal [facility] Comment on above: Performed By: #### Gila KAYE LIVER #### [facility] [address], [place] [address] Dr. Agueda Wiley Covid-19 PCR ([facility])on SARS-CoV-2 (COVID-19) RNA JEREMIAH+probe Ql (Unsp spec) Not detected Normal NOT DETECTED [facility] Comment on above: Result Comment: When [...] for this test is supported by the [place] of [employer] and Human Service's declaration that [...] used). Performed By: #### R NPAB #### [facility] [address] [place] [address] Dr. Agueda Wiley ER URINE PROFILEon 2 Bilirubin Ql (U) Negative Normal NEGATIVE [facility] Comment on above: Performed By: #### R NPAB #### [facility] [address] [place] [address] Dr. Agueda Wiley Clarity (U) CLEAR Normal CLEAR [facility] Comment on above: Performed By: #### R NPAB #### [facility] [address] [place] [address] Dr. Agueda Wiley Color (U) YELLOW Normal YELLOW [facility] Comment on above: Performed By: #### R NPAB #### [facility] [address] [place] [address] Dr. Agueda Wiley ERUAHD A micrscopic examina tion will be performed if indicated. Normal [facility] Comment on above: Performed By: #### R NPAB #### [facility] [address] [place] [address] Dr. Agueda Wiley Glucose Ql (U) Negative Normal NEGATIVE [facility] Comment on above: Performed By: #### R NPAB #### [facility] [address] [place] [address] Dr. Agueda Wiley Hemoglobin Ql (U) Negative Normal NEGATIVE [facility] Comment on above: Performed By: #### R NPAB #### [facility] [address] [address] [address] Agueda Wiley Ketones Ql (U) 15 mg/dl Abnormal NEGATIVE [facility] Comment on above: Performed By: #### R NPAB #### [facility] [address] [place] [address] Dr. Agueda Wiley LEUKOCYTES Negative Normal NEGATIVE [facility] Comment on above: Performed By: #### R NPAB #### [facility] [address] [place] [address] Dr. Agueda Wiley Nitrite Ql (U) Negative Normal NEGATIVE [facility] Comment on above: Performed By: #### R NPAB #### [facility] [address] [place] [address] Dr. Agueda Wiley pH (U) 6.0 [pH] Normal 5-9 [facility] Comment on above: Performed By: #### R NPAB #### [facility] [address] [place] [address] Dr. Agueda Wiley SPEC GRAVITY 1.015 Normal 1.005-<=1.[address] [place] [address] Comment on above: Performed By: #### R NPAB #### [facility] [address] [place] [address] Dr. Agueda Wiley UA PROTEIN Negative Normal NEGATIVE/ TRACE [facility] Comment on above: Performed By: #### R NPAB #### [facility] [address] [place] [address] Dr. Agueda Wiley UR MICRO IND NOT INDICATED Normal [facility] Comment on above: Performed By: #### R NPAB #### [facility] [address] [place] [address] Dr. Agueda Wiley Urobilinogen Qn (U) 0.2 {[place]'U}/dL Normal 0.2 - 1. 0 [facility] Comment on above: Performed By: #### R NPAB #### [facility] [address] [place] [address] Dr. Agueda Wiley GI PANEL (PCR)on 05-17-2022 Adenovirus F 40/41 Not detected Normal NOT DETECTED [facility] Comment on above: Performed By: #### C MIKKI, LIVER #### [facility] [address] [place] [address] Dr. Agueda Wiley Astrovirus Not detected Normal NOT DETECTED [facility] Comment on above: Performed By: #### C MIKKI, LIVER #### [facility] [address] [place] [address] Dr. Agueda Uriostegui. Diff toxin A/B Detected Critically abnormal NOT DETECTED [facility] Comment on above: Performed By: #### C MIKKI, LIVER #### [facility] [address] [place] [address] Dr. Agueda Wiley Campylobacter Not detected Normal NOT DETECTED [facility] Comment on above: Performed By: #### C MIKKI, LIVER #### [facility] [address] [place] [address] Dr. Agueda Wiley Cryptosporidium Not detected Normal NOT DETECTED [facility] Comment on above: Performed By: #### C [place]KKI, LIVER #### [facility] [address] [place] [address] Dr. Agueda Wiley Cyclos. Cayetanensis Not detected Normal NOT DETECTED [facility] Comment on above: Performed By: #### C [place]KKI, LIVER #### [facility] [address] [place] [address] Dr. Agueda Wiley E. Coli O157 Not Applicable Normal Not Applicable [facility] Comment on above: Performed By: #### C [place]KKI, LIVER #### [facility] [address] [place] [address] Dr. Agueda Wiley E. histolytica Not detected Normal NOT DETECTED [facility] Comment on above: Performed By: #### C [place]KKI, LIVER #### [facility] [address] [place] [address] Dr. Agueda Wiley EAEC Not detected Normal NOT DETECTED [facility] Comment on above: Performed By: #### C [place]KKI, LIVER #### [facility] [address] [place] [address] Dr. Agueda Wiley EIEC Not detected Normal NOT DETECTED [facility] Comment on above: Performed By: #### C [place]KKI, LIVER #### [facility] [address] [address] [address] Agueda Wiley EPEC Not detected Normal NOT DETECTED [facility] Comment on above: Performed By: #### C [place]KKI, LIVER #### [facility] [address] [address] [address] Agueda Wiley ETEC Not detected Normal NOT DETECTED [facility] Comment on above: Performed By: #### C [place]KKI, LIVER #### [facility] [address] [address] [address] Agueda Holguin Lamblibassem Not detected Normal NOT DETECTED [facility] Comment on above: Performed By: #### C MIKKI, LIVER #### [facility] [address] [address] [address] Agueda LERNER CONTROLS PASSED Normal [facility] Comment on above: Performed By: #### C MIKKI, LIVER #### [facility] [address] [place] [address] Dr. Agueda BRITO HEADER GI PANEL BACTERIA Normal [facility] Comment on above: Performed By: #### C MIKKI, LIVER #### [facility] [address] [address] [address] Agueda ALMEIDA ECOLI GI PANEL DIARRHEAGEN IC E.COLI / SHIGELLA Normal [facility] Comment on above: Performed By: #### C MIKKI, LIVER #### [facility] [address] [place] [address] Dr. Agueda ALMEIDA INFO SEE BELOW Normal [facility] Comment on above: Result Comment: EAEC - Enteroaggregative E. Coli EPEC- Enteropathogenic E. Coli ETEC- Enterotoxigenic E. Coli lt/st STEC- Shigella-like toxin-producing E. Coli stx1/stx2 EIEC- Shigella/Enteroinvasive E. Coli Performed By: #### C MIKKI, LIVER #### [facility] [address] [address] [address] Agueda ALMEIDA PARASITES GI PANEL PARASITES Normal [facility] Comment on above: Performed By: #### C MIKKI, LIVER #### [facility] [address] [place] [address] Dr. Agueda Wiley [facility] VIRUS GI PANEL VIRUSES Normal The [facility] Comment on above: Performed By: #### C MIKKI, LIVER #### [facility] [address] [place] [address] Dr. Agueda Wiley Norovirus GI/GII Not detected Normal NOT DETECTED [facility] Comment on above: Performed By: #### C MIKKI, LIVER #### [facility] [address] [place] [address] Dr. Agueda Wiley P. Shigelloides Not detected Normal NOT DETECTED [facility] Comment on above: Performed By: #### C MIKKI, LIVER #### [facility] [address] [place] [address] Dr. Agueda Wiley Rotavirus A Not detected Normal NOT DETECTED [facility] Comment on above: Performed By: #### C MIKKI, LIVER #### [facility] [address] [place] [address] Dr. Agueda Wiley Salmonella Not detected Normal NOT DETECTED [facility] Comment on above: Performed By: #### C MIKKI, LIVER #### [facility] [address] [place] [address] Dr. Agueda Wiley Sapovirus Not detected Normal NOT DETECTED [facility] Comment on above: Performed By: #### C MIKKI, LIVER #### [facility] [address] [place] [address] Dr. Agueda Wiley STEC Not detected Normal NOT DETECTED [facility] Comment on above: Performed By: #### C MIKKI, LIVER #### [facility] [address] [place] [address] Dr. Agueda Wiley Vibrio Not detected Normal NOT DETECTED [facility] Comment on above: Performed By: #### C MIKKI, LIVER #### [facility] [address] [place] [address] Dr. Agueda Wiley Vibrio Cholera Not detected Normal NOT DETECTED [facility] Comment on above: Performed By: #### C MIKKI, LIVER #### [facility] [address] [place] [address] Dr. Yilan Wiley Y. Enterocolitica Not detected Normal NOT DETECTED [facility] Comment on above: Performed By: #### C MIKKI, LIVER #### [facility] [address] [place] [address] Dr. Agueda Wiley LACTATE/LACTIC ACIDon 2021 Lactate [Moles/Vol] 1.3 mmol/L Normal 0.4-1.9 [facility] Comment on above: Performed By: #### A NAIFA #### [facility] [address] [place] [address] Dr. Agueda Wiley LIPASEon 05-17-2022 Lipase [Catalytic activity/Vol] 200.0 U/L Normal 73.0-393.0 [facility] Comment on above: Performed By: #### C SUITE #### [facility] [address] [place] [address] Dr. Agueda Wiley PROF 14(COMP METB)on 022 Albumin [Mass/Vol] 2.3 g/dL Critically low 3.4-5.0 [facility] Comment on above: Performed By: #### C SUITE #### [facility] [address] [place] [address] Dr. Agueda Wiley Albumin/Globulin [Mass ratio] 0.6 {ratio} Normal [facility] Comment on above: Performed By: #### C SUITE #### [facility] [address] [place] [address] Dr. Agueda Wiley ALP [Catalytic activity/Vol] 140 U/L Critically high 46-116 [facility] Comment on above: Performed By: #### C SUITE #### [facility] [address] [place] [address] Dr. Agueda Wiley ALT [Catalytic activity/Vol] 26 U/L Normal 14-59 [facility] Comment on above: Performed By: #### C SUITE #### [facility] [address] [place] [address] Dr. Agueda Wiley Anion gap [Moles/Vol] 17.5 mmol/L Normal [facility] Comment on above: Performed By: #### C SUITE #### [facility] [address] [address] [address] Agueda Wiley AST [Catalytic activity/Vol] 15 U/L Normal 15-37 [facility] Comment on above: Performed By: #### C SUITE #### [facility] [address] [address] [address] Agueda Wiley Bilirubin [Mass/Vol] 0.3 mg/dL Normal 0.2-1.0 [facility] Comment on above: Performed By: #### C SUITE #### [facility] [address] [address] [address] Agueda Wiley Calcium [Mass/Vol] 8.1 mg/dL Critically low 8.5-10.1 [facility] Comment on above: Performed By: #### C SUITE #### [facility] [address] [place] [address] Dr. Agueda Wiley Chloride [Moles/Vol] 98 mmol/L Normal 98-107 [facility] Comment on above: Performed By: #### C SUITE #### [facility] [address] [address] [address] Agueda Wiley CO2 [Moles/Vol] 21.9 mmol/L Normal 21.0-32.0 [facility] Comment on above: Performed By: #### C SUITE #### [facility] [address] [place] [address] Dr. Agueda Wiley Creatinine [Mass/Vol] 1.00 mg/dL Normal 0.55-1.02 [facility] Comment on above: Performed By: #### C SUITE #### [facility] [address] [place] [address] Dr. Agueda Wiley EGFR-AF [place] >60 Normal >=60 [facility] Comment on above: Performed By: #### C SUITE #### [facility] [address] [place] [address] Dr. Agueda Wiley EGFR-NON AF [place] 55 mL/min/1.73m2 Critically low >=60 [facility] Comment on above: Performed By: #### C SUITE #### [facility] [address] [place] [address] Dr. Agueda Wiley Globulin (S) [Mass/Vol] 3.8 g/dL Normal [facility] Comment on above: Performed By: #### C SUITE #### [facility] [address] [place] [address] Dr. Agueda Wiley Glucose [Mass/Vol] 119 mg/dL Critically high 74-106 [facility] Comment on above: Performed By: #### C SUITE #### [facility] [address] [place] [address] Dr. Agueda Wiley Potassium [Moles/Vol] 3.4 mmol/L Critically low 3.5-5.1 [facility] Comment on above: Performed By: #### C SUITE #### [facility] [address] [place] [address] Dr. Agueda Wiley Protein [Mass/Vol] 6.1 g/dL Critically low 6.4-8.2 [facility] Comment on above: Performed By: #### C SUITE #### [facility] [address] [place] [address] Dr. Agueda Wiley Sodium [Moles/Vol] 134 mmol/L Critically low 136-145 [facility] Comment on above: Performed By: #### C SUITE #### [facility] [address] [place] [address] Dr. Agueda Wiley Urea nitrogen [Mass/Vol] 19.0 mg/dL Critically high 7.0-18.0 [facility] Comment on above: Performed By: #### C SUITE #### [facility] [address] [place] [address] Dr. Agueda Wiley Urea nitrogen/Creatinine [Mass ratio] 19.0 mg/mg Normal [facility] Comment on above: Performed By: #### C SUITE #### [facility] [address] [place] [address] Dr. Agueda Wiley PROTIMEon 05-17-2022 INR Coag (PPP) [Relative time] 1.12 {INR} Normal [facility] Comment on above: Performed By: #### C MIKKI, LIVER #### [facility] [address] [address] [address] Agueda Wiley INR GUIDELINES SEE BELOW Normal [facility] Comment on above: Result Comment: ROSA RED INR: 2.0 - 3.0 CONDITIONS NOT LISTED BELOW 2.5 - 3.5 FOR PROSTHETIC HEART VALVE REPLACEMENT 2.5 - 3.5 RECURRENT THROMBOSIS Performed By: #### C MIKKI, LIVER #### [facility] [address], [place] [address] Dr. Agueda Wiley PT Coag (PPP) [Time] 12.0 s Critically high 9.0-11.6 [facility] Comment on above: Performed By: #### C MIKKI, LIVER #### [facility] [address], [place] [address] Dr. Agueda Wiley PTTon 05-17-2022 aPTT Coag (Bld) [Time] 24.8 s Normal 22.3-36.2 [facility] Comment on above: Performed By: #### C MIKKI, LIVER #### [facility] [address] [address] [address] Agueda Wiley XR knee LT 3Von 04-16-2022 XR knee LT 3V [facility] [employer] Other XR knee LT 3V [facility] [employer] Other XR knee LT 3V [address] [place] [address] [employer] Other XR knee LT 3V [address] [employer] Other XR knee LT 3V XRay Report [employer] Other XR knee LT 3V Signed [employer] Other XR knee LT 3V Patient: Reba Gregory MR#: [id number] [place] [employer] Other XR knee LT 3V : 1955 Acct:[id number] [employer] Other XR knee LT 3V Age/Sex: 66 / F ADM Date: 04/16/22 [employer] Other XR knee LT 3V Loc: [facility]XD Room: Type : REG CLI [employer] Other XR knee LT 3V Attending Dr: Nabor Nelson II, MD [employer] Other XR knee LT 3V Copies to: Nabor Nelson MD [employer] Other XR knee LT 3V Ordering Provider: Ragini Nelson MD [employer] Other XR knee LT 3V Date of Service: 04/16/22 [employer] Other XR knee LT 3V XR/XR knee LT 3V - NOT FOR ER USE: Aftercare following joint replacement [employer] Other XR knee LT 3V surgery [employer] Other XR knee LT 3V LEFT KNEE - 4 views No rt [employer] Other XR knee LT 3V CLINICAL HISTORY: Follow-up left knee surgery. [employer] Other XR knee LT 3V COMPARISON: Left kne e 03/02/2022 [employer] Other XR knee LT 3V FINDINGS: [employer] Other XR knee LT 3V Left knee prosthesis without radiographic complication. No acute bony process. [employer] Other XR knee LT 3V X R/XR knee LT 3V - NOT FOR ER USE [employer] Other XR knee LT 3V IMPRESSION: [employer] Other XR knee LT 3V NO EVIDENCE OF HARDW ARE COMPLICATION. [employer] Other XR knee LT 3V Impression dictated by: Dave Espana Jr., D.O.04/16/2022 10:02 AM [employer] Other XR knee LT 3V Dictation Location: RADIO--11 [employer] Other XR knee LT 3V Transcribed By: PWS 04/16/22 1002 [employer] Other XR knee LT 3V Dictated By: Dave Espana Jr, DO 04/16/22 1001 [employer] Other XR knee LT 3V Signed By: [employer] Other XR knee LT 3V 04/16/22 1002 [employer] Other Basophils Auto (Bld) [#/Vol] Ordered By: [...] 03-03-2022 WBC (Bld) [#/Vol] 8.3 10*3/uL 4.5-11.0 [facility] Creatinine and Glomerular fi ltration rate.predicted panel (S/P/Bld)Ordered By: Nabor Nelson on 03-03-2022 Creatinine [Mass/Vol] 0.95 mg/dL 0.44-1.03 [facility] Eosinophils Auto (Bld) [#/Vo l]Ordered [...] 03-03-2022 MCHC (RBC) [Mass/Vol] 33.7 g/dL 32.0-35.0 [facility] MCV Auto (RBC) [Entitic vol] [...] 03-03-2022 RBC (Bld) [#/Vol] 3.66 10*6/uL 3.60-5.00 [facility] Serum or plasma calcium phan urement (mass/volume)Ordered By: Nabor Nelson on 03-03-2022 Calcium [Mass/Vol] 9.2 mg/dL 8.2-10.2 [facility] Serum or plasma chloride wilma surement (moles/volume)Ordered By: Nabor Nelson on 03-03-2022 Chloride [Moles/Vol] 107 mmol/L 95-114 [facility] Serum or plasma glucose phan urement (mass/volume)Ordered By: Nabor Nelson on 03-03-2022 Glucose [Mass/Vol] 157 mg/dL 70-100 [facility] Comment on above: ADA recommended refe rence range Random Glucose Reference Range is dependent on time and content of last meal. Glucose of more than 200 mg/dL in a nonstressed, ambulatory subject supports the diagnosis of Diabetes Mellitus. Serum or plasma potassium me asurement (moles/volume)Ordered By: Nabor Nelson on 03-03-2022 Potassium [Moles/Vol] 4.0 mmol/L 3.5-5.1 [facility] Serum or plasma sodium measu rement (moles/volume)Ordered By: Nabor Nelson on 03-03-2022 Sodium [Moles/Vol] 139 mmol/L 136-146 [facility] Serum or plasma total carbon dioxide measurement (moles/volume)Ordered By: Nabor Nelson on 03-03-2022 CO2 [Moles/Vol] 24.8 mmol/L 22.0-30.0 [facility] Serum or plasma urea nitroge n measurement (mass/volume)Ordered By: Nabor Nelson on 03-03-2022 Urea nitrogen [Mass/Vol] 12 mg/dL 9-23 [facility] COVID-19 Positive/NegativeOr dered By: Nabor Nelson on 02-26-2022 SARS-CoV-2 (COVID-19) N gene JEREMIAH+probe Ql (Resp) Negative Negative [facility] Comment on above: Testing for SARS-CoV -2 by RT-PCR This test was developed and its performance characteristics determined by [employer] ([employer]) and validated at the [facility]. This [...] 01-30-2022 BASO # 0.0 103/ul Normal 0.0-0.1 [facility] Comment on above: Performed By: #### Gial KAYE, LIVER #### [facility] [address] [place] [address] Dr. Agueda Wiley Basophils/100 WBC (Bld) 0.6 % Normal 0.2-2.0 [facility] Comment on above: Performed By: #### Gila KAYE, LIVER #### [facility] [address] [place] [address] Dr. Agueda Wiley EO # 0.2 103/ul Normal 0.0-0.7 [facility] Comment on above: Performed By: #### Gila KAYE, LIVER #### [facility] [address] [place] [address] Dr. Agueda Wiley Eosinophils/100 WBC (Bld) 2.7 % Normal 0.9-7.0 [facility] Comment on above: Performed By: #### Gila KAYE, LIVER #### [facility] [address] [place] [address] Dr. Agueda Wiley Erythrocyte distribution width (RBC) [Ratio] 14.0 % Normal 11.0-15.0 [facility] Comment on above: Performed By: #### Gila KAYE, LIVER #### [facility] [address] [place] [address] Dr. Agueda Wiley Hematocrit (Bld) [Volume fraction] 42.1 % Normal 36.0-48.0 [facility] Comment on above: Performed By: #### Gila KAYE, LIVER #### [facility] [address] [place] [address] Dr. Agueda Wiley Hemoglobin (Bld) [Mass/Vol] 13.8 g/dL Normal 12.0-16.0 [facility] Comment on above: Performed By: #### Gila KAYE, LIVER #### [facility] [address] [place] [address] Dr. Agueda Wiley IG # 0.02 10e3/ul Normal 0.00-0.03 [facility] Comment on above: Performed By: #### C MIKKI, LIVER #### [facility] [address] [place] [address] Dr. Agueda Wiley IG % 0.3 % Normal 0.0-0.5 [facility] Comment on above: Performed By: #### C MIKKI, LIVER #### [facility] [address] [place] [address] Dr. Agueda Wiley LYMPH # 1.6 103/ul Normal 1.2-3.8 [facility] Comment on above: Performed By: #### C MIKKI, LIVER #### [facility] [address] [place] [address] Dr. Agueda Wiley Lymphocytes/100 WBC (Bld) 23.3 % Normal 20.5-60.0 [facility] Comment on above: Performed By: #### C MIKKI, LIVER #### [facility] [address] [place] [address] Dr. Agueda Wiley MCH (RBC) [Entitic mass] 29.7 pg Normal 26.7-34.0 [facility] Comment on above: Performed By: #### C MIKKI, LIVER #### [facility] [address] [place] [address] Dr. Agueda Wiley MCHC (RBC) [Mass/Vol] 32.8 g/dL Normal 29.9-35.2 [facility] Comment on above: Performed By: #### C MIKKI, LIVER #### [facility] [address] [place] [address] Dr. Agueda Wiley MCV (RBC) [Entitic vol] 90.7 fL Normal 81.0-99.0 [facility] Comment on above: Performed By: #### C MIKKI, LIVER #### [facility] [address] [place] [address] Dr. Agueda Wiley MONO # 0.8 103/ul Normal 0.3-0.8 [facility] Comment on above: Performed By: #### C MIKKI, LIVER #### [facility] [address] [place] [address] Dr. Agueda Wiley Monocytes/100 WBC (Bld) 10.7 % Normal 1.7-12.0 [facility] Comment on above: Performed By: #### C MIKKI, LIVER #### [facility] [address] [place] [address] Dr. Agueda Wiley NEUT # 4.4 103/ul Normal 1.4-6.5 [facility] Comment on above: Performed By: #### C MIKKI, LIVER #### [facility] [address] [place] [address] Dr. Agueda Wiley Neutrophils/100 WBC (Bld) 62.4 % Normal 43.0-75.0 [facility] Comment on above: Performed By: #### C MIKKI, LIVER #### [facility] [address] [place] [address] Dr. Agueda Wiley Platelet mean volume (Bld) [Entitic vol] 11.0 fL Normal 9.5-13.5 [facility] Comment on above: Performed By: #### C MIKKI, LIVER #### [facility] [address] [place] [address] Dr. Agueda Wiley PLT 270 103/ul Normal 150-450 [facility] Comment on above: Performed By: #### C MIKKI, LIVER #### [facility] [address] [place] [address] Dr. Agueda Wiley RBC 4.64 106/ul Normal 4.20-5.40 [facility] Comment on above: Performed By: #### C MIKKI, LIVER #### [facility] [address] [place] [address] Dr. Agueda Wiley WBC 7.0 103/ul Normal 4.0-11.0 [facility] Comment on above: Performed By: #### C MIKKI, LIVER #### [facility] [address] [place] [address] Dr. Agueda Wiley SAULO- BMP WITH LIPIDon 2021 Anion gap [Moles/Vol] 12.5 mmol/L Normal [facility] Comment on above: Performed By: #### C MIKKI, LIVER #### [facility] [address] [address] [address] Agueda Wiley Calcium [Mass/Vol] 9.0 mg/dL Normal 8.5-10.1 [facility] Comment on above: Performed By: #### C MIKKI, LIVER #### [facility] [address] [address] [address] Agueda Wiley Chloride [Moles/Vol] 105 mmol/L Normal 98-107 [facility] Comment on above: Performed By: #### C MIKKI, LIVER #### [facility] [address] [address] [address] Agueda Wiley Cholesterol [Mass/Vol] 246 mg/dL Critically high <=200 [facility] Comment on above: Performed By: #### Gila KAYE, LIVER #### [facility] [address] [address] [address] Agueda Wiley Cholesterol in HDL [Mass/Vol] 84 mg/dL Critically high 40-60 [facility] Comment on above: Performed By: #### Gila KAYE, LIVER #### [facility] [address] [address] [address] Agueda Wiley Cholesterol in LDL [Mass/Vol] 130.6 mg/dL Normal [facility] Comment on above: Performed By: #### Gila KAYE, LIVER #### [facility] [address] [address] [address] Agueda Wiley CO2 [Moles/Vol] 28.4 mmol/L Normal 21.0-32.0 [facility] Comment on above: Performed By: #### C MIKKI, LIVER #### [facility] [address] [address] [address] Agueda Wiley Creatinine [Mass/Vol] 0.97 mg/dL Normal 0.55-1.02 [facility] Comment on above: Performed By: #### Gila KAYE, LIVER #### [facility] [address] [address] [address] Agueda Wiley EGFR-AF [place] >60 Normal >=60 [facility] Comment on above: Performed By: #### C MIKKI, LIVER #### [facility] [address] [address] [address] Agueda Wiley EGFR-NON AF [place] 57 mL/min/1.73m2 Critically low >=60 [facility] Comment on above: Performed By: #### C MIKKI, LIVER #### [facility] [address] [address] [address] Agueda Wiley Glucose [Mass/Vol] 96 mg/dL Normal 74-106 [facility] Comment on above: Performed By: #### C MIKKI, LIVER #### [facility] [address] [address] [address] Agueda Wiley HDL NORMAL > or = 60 mg/dl - LO W CARDIOVASCULAR RISK <40 mg/dl - HIGH CARDIOVASCULAR RISK Normal [facility] Comment on above: Performed By: #### C MIKKI, LIVER #### [facility] [address] [address] [address] Agueda Wiley LDL CALC NORMAL SEE BELOW Normal [facility] Comment on above: Result Comment: <100 mg/dl OPTIMAL 100 - 129 mg/dl NEAR OR ABOVE OPTIMAL 130 - 159 mg/dl BORDERLINE HIGH 160 - 189 mg/dl HIGH >190 mg/dl VERY HIGH Performed By: #### Gila KAYE, LIVER #### [facility] [address] [address] [address] Agueda Wiley Potassium [Moles/Vol] 3.9 mmol/L Normal 3.5-5.1 [facility] Comment on above: Performed By: #### C MIKKI, LIVER #### [facility] [address] [address] [address] Agueda Wiley Sodium [Moles/Vol] 142 mmol/L Normal 136-145 [facility] Comment on above: Performed By: #### C MIKKI, LIVER #### [facility] [address] [address] [address] Agueda Wiley Triglyceride [Mass/Vol] 157 mg/dL Critically high <=150 [facility] Comment on above: Performed By: #### C MIKKI, LIVER #### [facility] [address] [address] [address] Agueda Wiley Urea nitrogen [Mass/Vol] 19.0 mg/dL Critically high 7.0-18.0 [facility] Comment on above: Performed By: #### C MIKKI, LIVER #### [facility] [address] [address] [address] Agueda Wiley Urea nitrogen/Creatinine [Mass ratio] 19.6 mg/mg Normal [facility] Comment on above: Performed By: #### C MIKKI, LIVER #### [facility] [address] [address] [address] Agueda Wiley VLDL CALC 31.4 mg/dL Normal [facility] Comment on above: Performed By: #### C MIKKI, LIVER #### [facility] [address] [address] [address] Agueda Wiley Vital Signs Date Time Vital Sign Value Performing Clinician Facility 03-09-2024 09:[id number] Body height 143.51 cm [facility] 03-09-2024 09:05-0400 Body mass index (BMI) [Ratio] 36.1 kg/m2 [facility] 03-09-2024 [id number] Body weight 74.44 kg [facility] 03-09-2024 09:05-0400 Diastolic blood pressure 77 mm[Hg] [facility] 03-09-2024 09:05-0400 Heart rate 66 /min [facility] 03-09-2024 09:05-0400 Respiratory rate 12 /min [facility] 03-09-2024 09:05-0400 Systolic blood pressure 184 mm[Hg] [facility] 02-29-2024 09:270400 Body height 151.13 cm [facility] 02-29-2024 09:270400 Body mass index (BMI) [Ratio] 32.2 kg/m2 [facility] 02-29-2024 09:270400 Body weight 73.68 kg [facility] 02-29-2024 09:27-0400 Diastolic blood pressure 87 mm[Hg] [facility] 02-29-2024 09:27-0400 Heart rate 64 /min [facility] 02-29-2024 09:27-0400 Respiratory rate 18 /min [facility] 02-29-2024 09:27-0400 SaO2% (BldA) [Mass fraction] 97 % [facility] 02-29-2024 09:27-0400 Systolic blood pressure 151 mm[Hg] [facility] 01-05-2024 10:32-0400 Body height 151.13 cm [facility] 01-05-2024 10:32-0400 Body mass index (BMI) [Ratio] 32.1 kg/m2 [facility] 01-05-2024 10:32-0400 Body weight 73.48 kg [facility] 01-05-2024 10:32-0400 Diastolic blood pressure 80 mm[Hg] [facility] 01-05-2024 10:32-0400 Heart rate 64 /min [facility] 01-05-2024 10:32-0400 SaO2% (BldA) [Mass fraction] 97 % [facility] 01-05-2024 10:32-0400 Systolic blood pressure 150 mm[Hg] [facility] 12-09-2023 15:06-0400 Body height 151.13 cm DO Jonathan Ball Work Phone: [facility] 12-09-2023 15:06-0400 Body mass index (BMI) [Ratio] 32.3 kg/m2 DO Jonathan Ball Work Phone: [facility] 12-09-2023 15:06-0400 Body weight 73.99 kg DO Jonathan Ball Work Phone: [facility] 12-09-2023 15:06-0400 Diastolic blood pressure 95 mm[Hg] DO Jonathan Ball Work Phone: [facility] 12-09-2023 15:06-0400 Diastolic blood pressure 85 mm[Hg] [facility] 12-09-2023 15:06-0400 Heart rate 65 /min DO Jonathan Ball Work Phone: [facility] 12-09-2023 15:06-0400 Respiratory rate 12 /min DO Jonathan Ball Work Phone: [facility] 12-09-2023 15:06-0400 Systolic blood pressure 171 mm[Hg] DO Jonathan Ball Work Phone: [facility] 12-09-2023 15:06-0400 Systolic blood pressure 155 mm[Hg] [facility] 11-17-2023 08:43-0500 Body height 151.13 cm DO Jonathan Ball Work Phone: [facility] 11-17-2023 08:43-0500 Body mass index (BMI) [Ratio] 32.4 kg/m2 DO Jonathan Ball Work Phone: [facility] 11-17-2023 08:43-0500 Body weight 74.07 kg DO Jonathan Ball Work Phone: [facility] 11-17-2023 08:43-0500 Diastolic blood pressure 78 mm[Hg] DO Jonathan Ball Work Phone: [facility] 11-17-2023 08:43-0500 Heart rate 58 /min DO Jonathan Ball Work Phone: [facility] 11-17-2023 08:43-0500 Respiratory rate 20 /min DO Jonathan Ball Work Phone: [facility] 11-17-2023 08:43-0500 SaO2% (BldA) [Mass fraction] 96 % DO Jonathan Ball Work Phone: [facility] 11-17-2023 08:43-0500 Systolic blood pressure 158 mm[Hg] DO Jonathan Ball Work Phone: [facility] 09-21-2023 11:15-0500 Body height 151.13 cm Massiel Fitt Other [facility] 09-14-2023 11:15-0500 Body height 151.13 cm Massiel Fitt Other [facility] 09-09-2023 09:30-0500 Body height 151.13 cm Jonathan Ball Other [facility] Other 09-09-2023 09:30-0500 Body mass index (BMI) [Ratio] 33.8 kg/m2 Jonathan Ball Other [facility] Other 09-09-2023 09:30-0500 Body weight 77.2 kg Jonathan Ball Other [facility] Other 09-09-2023 09:30-0500 Diastolic blood pressure 80 mm[Hg] Jonathan Ball Other [facility] Other 09-09-2023 09:30-0500 Respiratory rate 12 /min Jonathan Ball Other [facility] Other 09-09-2023 09:30-0500 Systolic blood pressure 169 mm[Hg] Jonathan Ball Other [facility] Other 08-19-2023 08:30-0500 Body height 151.13 cm [facility] Other [facility] Other 08-19-2023 08:30-0500 Body mass index (BMI) [Ratio] 33.6 kg/m2 [facility] Other [facility] Other 08-19-2023 08:30-0500 Body weight 76.75 kg [facility] Other [facility] Other 08-19-2023 08:30-0500 Diastolic blood pressure 97 mm[Hg] [facility] Other [facility] Other 08-19-2023 08:30-0500 Respiratory rate 18 /min Olayinka Ramos Other [facility] Other 08-19-2023 08:30-0500 SaO2% (BldA) [Mass fraction] 96 % Olayinka Ramos Other [facility] Other 08-19-2023 08:30-0500 Systolic blood pressure 128 mm[Hg] Olayinka Ramos Other [facility] Other 08-17-2023 10:45-0500 Body height 151.13 cm Jonathan Ball Other [facility] Other 08-17-2023 10:45-0500 Body mass index (BMI) [Ratio] 33.8 kg/m2 Jonathan Ball Other [facility] Other 08-17-2023 10:45-0500 Body weight 77.2 kg Jonathan Ball Other [facility] Other 08-17-2023 10:45-0500 Diastolic blood pressure 74 mm[Hg] Jonathan Ball Other [facility] Other 08-17-2023 10:45-0500 Respiratory rate 16 /min Jonathan Ball Other [facility] Other 08-17-2023 10:45-0500 Systolic blood pressure 168 mm[Hg] Jonathan Ball Other [facility] Other 08-03-2023 11:15-0500 Body height 151.13 cm Massiel Pereira Other [facility] Other 06-16-2023 08:45-0400 Body height 151.13 cm Olayinka Ramos Other [facility] Other 06-16-2023 08:45-0400 Body mass index (BMI) [Ratio] 35.58 kg/m2 Olayinka Ramos Other [facility] Other 06-16-2023 08:45-0400 Body weight 81.29 kg Olayinka [employer] Other [facility] Other 06-16-2023 08:45-0400 Diastolic blood pressure 76 mm[Hg] Olayinka [employer] Other [facility] Other 06-16-2023 08:45-0400 Respiratory rate 18 /min Olayinka [employer] Other [facility] Other 06-16-2023 08:45-0400 SaO2% (BldA) [Mass fraction] 96 % Olayinka [employer] Other [facility] Other 06-16-2023 08:45-0400 Systolic blood pressure 141 mm[Hg] Olayinka [employer] Other [facility] Other 06-09-2023 10:00-0400 Body height 151.13 cm Jonathan Ball Other [facility] Other 06-09-2023 10:00-0400 Body mass index (BMI) [Ratio] 35.78 kg/m2 Jonathan Ball Other [facility] Other 06-09-2023 10:00-0400 Body weight 81.74 kg Jonathan Ball Other [facility] Other 06-09-2023 10:00-0400 Diastolic blood pressure 84 mm[Hg] Jonathan Ball Other [facility] Other 06-09-2023 10:00-0400 Respiratory rate 16 /min Jonathan Ball Other [facility] Other 06-09-2023 10:00-0400 Systolic blood pressure 145 mm[Hg] Jonathan Ball Other [facility] Other 05-12-2023 11:15-0400 Body height 151.13 cm Massiel Sunnyosiel Other [facility] Other 05-05-2023 09:15-0400 Body height 151.13 cm [email or web address] Other [facility] Other 05-05-2023 09:15-0400 Body mass index (BMI) [Ratio] 37.51 kg/m2 [email or web address] Other [facility] Other 05-05-2023 09:15-0400 Body weight 85.69 kg [email or web address] Other [facility] Other 05-05-2023 09:15-0400 Diastolic blood pressure 72 mm[Hg] [email or web address] Other [facility] Other 05-05-2023 09:15-0400 Respiratory rate 18 /min [email or web address] Other [facility] Other 05-05-2023 09:15-0400 SaO2% (BldA) [Mass fraction] 97 % [email or web address] Other [facility] Other 05-05-2023 09:15-0400 Systolic blood pressure 147 mm[Hg] [email or web address] Other [facility] Other 04-13-2023 14:00-0400 Body height 151.13 cm Jonathan Ball Other [facility] Other 04-13-2023 14:00-0400 Body mass index (BMI) [Ratio] 39.16 kg/m2 Jonathan Ball Other [facility] Other 04-13-2023 14:00-0400 Body weight 89.45 kg Jonathan Ball Other [facility] Other 04-13-2023 14:00-0400 Diastolic blood pressure 82 mm[Hg] Jonathan Ball Other [facility] Other 04-13-2023 14:00-0400 Respiratory rate 12 /min Jonathan Ball Other [facility] Other 04-13-2023 14:00-0400 Systolic blood pressure 166 mm[Hg] Jonathan Ball Other [facility] Other 04-07-2023 10:00-0400 Body height 151.13 cm [email or web address] Other [facility] Other 04-07-2023 10:00-0400 Body mass index (BMI) [Ratio] 39.89 kg/m2 [email or web address] Other [facility] Other 04-07-2023 10:00-0400 Body weight 91.13 kg [email or web address] Other [facility] Other 04-07-2023 10:00-0400 Diastolic blood pressure 81 mm[Hg] [email or web address] Other [facility] Other 04-07-2023 10:00-0400 Respiratory rate 18 /min [email or web address] Other [facility] Other 04-07-2023 10:00-0400 SaO2% (BldA) [Mass fraction] 95 % Olayinka Ramos Other [facility] Other 04-07-2023 10:00-0400 Systolic blood pressure 171 mm[Hg] Olayinka Ramos Other [facility] Other 03-04-2023 11:00-0400 Body height 151.13 cm Jonathan Ball Other [facility] Other 03-04-2023 11:00-0400 Body mass index (BMI) [Ratio] 39.48 kg/m2 Jonathan Ball Other [facility] Other 03-04-2023 11:00-0400 Body weight 90.18 kg Jonathan Ball Other [facility] Other 03-04-2023 11:00-0400 Diastolic blood pressure 83 mm[Hg] Jonathan Ball Other [facility] Other 03-04-2023 11:00-0400 Respiratory rate 12 /min Jonathan Ball Other [facility] Other 03-04-2023 11:00-0400 Systolic blood pressure 149 mm[Hg] Jonathan Ball Other [facility] Other 02-17-2023 08:45-0400 Body height 151.13 cm Nabor Rodríguezle II Other [facility] Other 02-17-2023 08:45-0400 Body mass index (BMI) [Ratio] 38.92 kg/m2 Nabor Oscoda II Other [facility] Other 02-17-2023 08:45-0400 Body weight 88.91 kg Nabor Nelson II Other [facility] Other 11-25-2022 09:30-0400 Body height 151.13 cm Jonathan Ball Other [facility] Other 11-25-2022 09:30-0400 Body mass index (BMI) [Ratio] 39.04 kg/m2 Jonathan Ball Other [facility] Other 11-25-2022 09:30-0400 Body weight 89.18 kg Jonathan Ball Other [facility] Other 11-25-2022 09:30-0400 Diastolic blood pressure 82 mm[Hg] Jonathan Ball Other [facility] Other 11-25-2022 09:30-0400 Respiratory rate 16 /min Jonathan Ball Other [facility] Other 11-25-2022 09:30-0400 SaO2% (BldA) [Mass fraction] 97 % Jonathan Ball Other [facility] Other 11-25-2022 09:30-0400 Systolic blood pressure 144 mm[Hg] Jontahan Ball Other [facility] Other 10-15-2022 10:15-0500 Body height 151.13 cm George Ryan Other [facility] Other 10-15-2022 10:15-0500 Body mass index (BMI) [Ratio] 36.34 kg/m2 George Ryan Other [facility] Other 10-15-2022 10:15-0500 Body temperature 97.8 [degF] George Ryan Other [facility] Other 10-15-2022 10:15-0500 Body weight 83.01 kg George Ryan Other [facility] Other 10-15-2022 10:15-0500 Diastolic blood pressure 78 mm[Hg] George Ryan Other [facility] Other 10-15-2022 10:15-0500 SaO2% (BldA) [Mass fraction] 97 % George Ryan Other [facility] Other 10-15-2022 10:15-0500 Systolic blood pressure 132 mm[Hg] George Ryan Other [facility] Other 10-02-2022 14:45-0500 Body height 151.13 cm Jonathan Ball Other [facility] Other 10-02-2022 14:45-0500 Body mass index (BMI) [Ratio] 36.34 kg/m2 Jonathan Ball Other [facility] Other 10-02-2022 14:45-0500 Body weight 83.01 kg Jonathan Ball Other [facility] Other 10-02-2022 14:45-0500 Diastolic blood pressure 68 mm[Hg] Jonathan Ball Other [facility] Other 10-02-2022 14:45-0500 Respiratory rate 16 /min Jonathan Ball Other [facility] Other 10-02-2022 14:45-0500 Systolic blood pressure 130 mm[Hg] Jonathan Ball Other [facility] Other 10-01-2022 09:45-0500 Body height 151.13 cm George Del Realsj Other [facility] Other 10-01-2022 09:45-0500 Body mass index (BMI) [Ratio] 35.74 kg/m2 George Del Realsj Other [facility] Other 10-01-2022 09:45-0500 Body temperature 97.8 [degF] George Del Realsj Other [facility] Other 10-01-2022 09:45-0500 Body weight 81.65 kg George Del Realsj Other [facility] Other 10-01-2022 09:45-0500 Diastolic blood pressure 84 mm[Hg] George Shelby Other [facility] Other 10-01-2022 09:45-0500 SaO2% (BldA) [Mass fraction] 91 % George Del Realsj Other [facility] Other 10-01-2022 09:45-0500 Systolic blood pressure 148 mm[Hg] George Del Realsj Other [facility] Other 09-21-2022 10:15-0500 Body height 151.13 cm Jonathan Ball Other [facility] Other 09-21-2022 10:15-0500 Body mass index (BMI) [Ratio] 36.34 kg/m2 Jonathan Ball Other [facility] Other 09-21-2022 10:15-0500 Body weight 83.01 kg Jonathan Ball Other [facility] Other 09-21-2022 10:15-0500 Diastolic blood pressure 90 mm[Hg] Jonathan Ball Other [facility] Other 09-21-2022 10:15-0500 Respiratory rate 16 /min Jonathan Ball Other [facility] Other 09-21-2022 10:15-0500 Systolic blood pressure 148 mm[Hg] Jonathan Smith Other [facility] Other 09-17-2022 13:00-0500 Body height 151.13 cm George Ryan Other [facility] Other 09-17-2022 13:00-0500 Body mass index (BMI) [Ratio] 35.35 kg/m2 George Ryan Other [facility] Other 09-17-2022 13:00-0500 Body temperature 97.1 [degF] George Ryan Other [facility] Other 09-17-2022 13:00-0500 Body weight 80.74 kg George Ryan Other [facility] Other 09-17-2022 13:00-0500 Diastolic blood pressure 82 mm[Hg] George Ryan Other [facility] Other 09-17-2022 13:00-0500 SaO2% (BldA) [Mass fraction] 97 % George Ryan Other [facility] Other 09-17-2022 13:00-0500 Systolic blood pressure 160 mm[Hg] George Ryan Other [facility] Other 05-28-2022 09:15-0400 Body height 151.13 cm Nabor Oscoda II Other [facility] Other 05-28-2022 09:15-0400 Body mass index (BMI) [Ratio] 35.35 kg/m2 Nabor Oscoda II Other [facility] Other 05-28-2022 09:15-0400 Body weight 80.74 kg Nabor Oscoda II Other [facility] Other 04-16-2022 09:15-0400 Body height 151.13 cm Nabor Omar II Other [facility] Other 04-16-2022 09:15-0400 Body mass index (BMI) [Ratio] 35.35 kg/m2 Nabor Oscoda II Other [facility] Other 04-16-2022 09:15-0400 Body weight 80.74 kg Nabor Oscoda II Other [facility] Other 03-18-2022 11:45-0400 Body height 151.13 cm Nabor Oscoda II Other [facility] Other 03-18-2022 11:45-0400 Body mass index (BMI) [Ratio] 35.54 kg/m2 Nabor Oscoda II Other [facility] Other 03-18-2022 11:45-0400 Body weight 81.19 kg Nabor Oscoda II Other [facility] Other 03-03-2022 11:53-0400 Heart rate 95 /min [...] 02-11-2022 15:00-0400 Body height 151.13 cm Nabor Nelson II Other [facility] Other 02-11-2022 15:00-0400 Body mass index (BMI) [Ratio] 35.74 kg/m2 Nabor Oscoda II Other [facility] Other 02-11-2022 15:00-0400 Body weight 81.65 kg Nabor Oscoda II Other [facility] Other 11-20-2021 14:00-0500 Body height 151.13 cm Nabor Nelson II Other [facility] Other 11-20-2021 14:00-0500 Body mass index (BMI) [Ratio] 36.54 kg/m2 Nabor eNlson II Other [facility] Other 11-20-2021 14:00-0500 Body weight 83.46 kg Nabor Nelson II Other [facility] Other Encounters Encounter Date Encounter Type Care Provider Facility Start: 03-09-2024 End: 03-09-2024 ambulatory [facility] Work Phone: Start: 03-09-2024 End: 03-09-2024 Patient encounter procedure [facility]ician [facility] Work Phone: Start: 02-29-2024 End: 02-29-2024 ambulatory [facility] Work Phone: Start: 02-29-2024 End: 02-29-2024 Patient encounter procedure [facility]ician [facility] Work Phone: Start: 02-16-2024 End: 02-16-2024 ambulatory [facility] Work Phone: Start: 02-16-2024 End: 02-16-2024 Patient encounter procedure [facility] Work Phone: Start: 01-26-2024 End: 01-26-2024 ambulatory RAYMOND SAUCEDA Not Available Start: 01-11-2024 Non-patient / Non-visit [facility] Physician [facility] Work Phone: Start: 01-06-2024 End: 01-06-2024 ambulatory [facility] Work Phone: Start: 01-06-2024 End: 01-06-2024 Patient encounter procedure [facility] Work Phone: Start: 01-05-2024 End: 01-05-2024 ambulatory [facility] Work Phone: Start: 01-05-2024 End: 01-05-2024 Patient encounter procedure [facility] Work Phone: Start: 12-21-2023 Non-patient / Non-visit [facility] Work Phone: Start: 12-09-2023 End: 12-09-2023 ambulatory DO Jonathan Smith Work Phone: [facility] Work Phone: Start: 12-09-2023 End: 12-09-2023 Patient encounter procedure DO Jonathan Smith Work Phone: [facility] Work Phone: Start: 12-06-2023 End: 12-06-2023 ambulatory Jonathan Smith Other [facility] Other Start: 12-06-2023 Telephone encounter Jonathan Smith [facility] Start: 11-23-2023 End: 11-23-2023 Patient encounter procedure DO Jonathan Smith Work Phone: [facility] Work Phone: Start: 11-17-2023 End: 11-17-2023 Patient encounter procedure DO Jonathan Smith Work Phone: [facility] Work Phone: Start: 11-16-2023 Non-patient / Non-visit DO Colton Smith Work Phone: [facility] Work Phone: Start: 09-21-2023 IBT FOR OBESITY GROU P 2-10 30M Massiel Pereira [facility] Start: 09-21-2023 End: 09-21-2023 ambulatory Jonathan Smith [facility] Other Start: 09-21-2023 Registered Recurring DO Olu in Ball Work Phone: [facility] Work Phone: Start: 09-21-2023 End: 09-21-2023 Patient encounter procedure DO Jonathan Smith Work Phone: [facility] Work Phone: Start: 09-14-2023 End: 09-14-2023 ambulatory Massiel Pereira Other [facility] Other Start: 09-14-2023 IBT FOR OBESITY GROU P 2-10 30M Massiel Pereira [facility] Start: 09-14-2023 End: 09-14-2023 Patient encounter procedure DO Jonathan Smith Work Phone: [facility] Work Phone: Start: 09-10-2023 End: 09-10-2023 ambulatory Jonathan Smith Other [facility] Other Start: 09-10-2023 Telephone encounter [facility] Smith [facility] Start: 09-09-2023 End: 09-09-2023 ambulatory Jonathan Smith Other [facility] Other Start: 09-09-2023 Office outpatient vi sit 25 minutes Jonathan Smith [facility] Start: 08-19-2023 End: 08-19-2023 ambulatory Olayinka Ramos Other [facility] Other Start: 08-19-2023 Follow-up encounter Olayinka Keller [facility] Start: 08-18-2023 End: 08-18-2023 ambulatory Jonathan Smith Other [facility] Other Start: 08-18-2023 Telephone encounter Jonathan Smith [facility] Start: 08-17-2023 End: 08-17-2023 ambulatory Jonathan Smith Other [facility] Other Start: 08-17-2023 Office outpatient vi sit 15 minutes Jonathan Smith [facility] Start: 08-03-2023 End: 08-03-2023 ambulatory Massiel Fitt Other [facility] Other Start: 08-03-2023 IBT FOR OBESITY GROU P 2-10 30M [facility] Start: 07-14-2023 End: 07-14-2023 ambulatory Jonathan Smith Other [facility] Other Start: 07-14-2023 Telephone encounter Jonathan CONNELL [facility] Start: 07-08-2023 End: 07-08-2023 ambulatory Olayinka Ramos Other [facility] Other Start: 07-08-2023 Telephone encounter Olayinka Ramos [facility] Start: 07-06-2023 End: 07-06-2023 ambulatory Massiel Fitt Other [facility] Other Start: 07-06-2023 IBT FOR OBESITY GROU P 2-10 30M [facility] Start: 07-02-2023 End: 07-02-2023 ambulatory Jonathan Smith Other [facility] Other Start: 07-02-2023 Telephone encounter Jonathan CONNELL [facility] Start: 06-16-2023 End: 06-16-2023 ambulatory Olayinka Richard Other [facility] Other Start: 06-16-2023 Follow-up encounter Olayinka Keller [facility] Start: 06-09-2023 End: 06-09-2023 ambulatory Jonathan Smith Other [facility] Other Start: 06-09-2023 Office outpatient vi sit 25 minutes Jonathan Smith [facility] Start: 06-09-2023 Telephone encounter Jonathan Ball [facility] Start: 06-01-2023 End: 06-01-2023 ambulatory Massiel Fitt Other [facility] Other Start: 06-01-2023 IBT FOR OBESITY GROU P 2-10 30M [facility] Start: 05-25-2023 End: 05-25-2023 ambulatory Jonathan Smith Other [facility] Other Start: 05-25-2023 Telephone encounter Jonathan Smith [facility] Start: 05-12-2023 End: 05-12-2023 ambulatory Massiel Fitt Other [facility] Other Start: 05-12-2023 IBT FOR OBESITY GROU P 2-10 30M [facility] Start: 05-05-2023 End: 05-05-2023 ambulatory Olayinka Ramos Other [facility] Other Start: 05-05-2023 Follow-up encounter Olayinka Keller [facility] Start: 05-05-2023 Telephone encounter Olayinka Keller [facility] Start: 04-24-2023 End: 04-24-2023 ambulatory Jonathan Smith Other [facility] Other Start: 04-24-2023 Telephone encounter Jonathan Smith [facility] Start: 04-21-2023 End: 04-21-2023 ambulatory Jonathan Smith Facility:[facility] Start: 04-13-2023 End: 04-13-2023 ambulatory Jonathan Smith Other [facility] Other Start: 04-13-2023 Office outpatient vi sit 25 minutes Jonathan Smith [facility] Start: 04-08-2023 End: 04-08-2023 ambulatory Jonathan Ball Other [facility] Other Start: 04-08-2023 Telephone encounter [facility] Start: 04-07-2023 End: 04-07-2023 ambulatory Olayinka Ramos Other [facility] Other Start: 04-07-2023 Nutrition therapy Olayinka Ramos [facility] Start: 03-12-2023 End: 03-12-2023 ambulatory Jonathan Smith Other [facility] Other Start: 03-12-2023 Telephone encounter [facility] Start: 03-04-2023 End: 03-04-2023 ambulatory Jonathan Smith Other [facility] Other Start: 03-04-2023 Patient encounter procedure Jonathan Smith [facility] Start: 03-03-2023 Office outpatient vi sit 15 minutes [facility] Start: 03-03-2023 End: 03-03-2023 Patient encounter procedure DO Jonathan Smith Work Phone: [facility] Start: 03-03-2023 End: 03-03-2023 ambulatory DO Jonathan Smith Work Phone: [facility] Work Phone: Start: 02-17-2023 End: 02-17-2023 Patient encounter procedure DO Jonathan Smith Work Phone: [facility] [facility] Start: 02-17-2023 End: 02-17-2023 ambulatory DO Jonathan Smith Work Phone: [facility] Work Phone: Start: 02-03-2023 End: 02-03-2023 Patient encounter procedure DO Jonathan Smith Work Phone: [facility] [address] Work Phone: Start: 01-21-2023 End: 01-22-[address] NABOR WILSON Facility: Start: 11-27-2022 Telephone encounter Jonathan [facility] Start: 11-27-2022 End: 11-28-[address] NABOR WILSON [facility] Other Start: 11-25-2022 End: 11-25-2022 ambulatory Jonathan Smith Other [employer] Other Start: 11-25-2022 Office outpatient vi sit 25 minutes Jonathan Smith [facility] Start: 10-28-2022 End: 10-28-2022 ambulatory Kiana Munson Other [facility] Other Start: 10-28-2022 Office outpatient vi sit 15 minutes Kianavaibhav Munson [facility] Start: 10-15-2022 End: 10-15-2022 ambulatory George Ryan Other [employer] Other Start: 10-15-2022 Office outpatient vi sit 10 minutes George Ryan [facility] Start: 10-08-2022 End: 10-08-2022 ambulatory DO Jonathan Smith Work Phone: [facility] Work Phone: Start: 10-08-2022 End: 10-08-2022 Patient encounter procedure DO Jonathan Smith Work Phone: [facility] [address] [place] Work Phone: Start: 10-07-2022 End: 10-07-2022 ambulatory Kiana Munson Other [facility] Other Start: 10-07-2022 Office outpatient vi sit 15 minutes Kianavaibhav Munson [facility] Start: 10-05-2022 End: 10-06-[address] NABOR WILSON Facility: Start: 10-05-2022 End: 10-05-2022 ambulatory DO Jonathan Smith Work Phone: [facility] Work Phone: Start: 10-05-2022 End: 10-05-2022 Patient encounter procedure DO Jonathan Smith Work Phone: [facility] [address] [place] Work Phone: Start: 10-02-2022 End: 10-02-2022 ambulatory Jonathan Smith Other [facility] Other Start: 10-02-2022 Office outpatient vi sit 15 minutes Jonathan Smith [facility] Start: 10-01-2022 End: 10-01-2022 ambulatory George Shelby Other [facility] Other Start: 10-01-2022 Office outpatient vi sit 25 minutes George Ryan [facility] Start: 09-29-[address] Jonathan Smith Facility:[facility] Start: 09-28-2022 End: 09-28-2022 ambulatory Jonathan Smith Other [facility] Other Start: 09-28-2022 Telephone encounter Jonathan Smith [facility] Start: 09-24-2022 End: 09-24-2022 ambulatory DO Jonathan Smith Work Phone: [facility] Work Phone: Start: 09-24-2022 End: 09-24-2022 Patient encounter procedure DO Jonathan Smith Work Phone: [facility]Electro[facility] Work Phone: Start: 09-24-[address] Jonathan Smith Facility:[id number] Start: 09-23-2022 End: 09-23-2022 Patient encounter procedure DO Jonathan Smith Work Phone: [facility] Start: 09-23-2022 End: 09-23-2022 ambulatory DO Jonathan Smith Work Phone: [facility] Work Phone: Start: 09-23-2022 Office outpatient ne w 45 minutes Kiana Munson [facility] Start: 09-21-2022 End: 09-21-2022 ambulatory Jonathan Smith Other [facility] Other Start: 09-21-2022 Office outpatient vi sit 25 minutes Jonathan Smith [facility] Start: 09-17-2022 Office outpatient vi sit 25 minutes George Ryan [facility] Start: 09-17-2022 End: 09-17-2022 ambulatory DO Jonathan Smith Work Phone: [facility] Work Phone: Start: 09-17-2022 End: 09-17-2022 Patient encounter procedure DO Jonathan Smith Work Phone: [facility] Start: 09-08-2022 End: 09-08-2022 ambulatory DO Jonathan Smith Work Phone: [facility] Work Phone: Start: 09-08-2022 End: 09-08-2022 Patient encounter procedure DO Jonathan Smith Work Phone: [facility] [place] Work Phone: Start: 08-31-2022 End: 09-01-[address] NABOR WILSON Facility:[facility]1 Start: 08-24-2022 Adult health examination Olayinka Ramos Other [facility] Other Start: 08-24-2022 Pre-procedure evaluation check Olayinka Richard Other [facility] Other Start: 08-14-2022 End: 08-14-[address] JONATHAN SMITH Facility:[facility]1 Start: 08-13-2022 End: 08-14-[address] JONATHAN SMITH Facility:[facility] Start: 08-04-2022 End: 08-05-[address] NABOR WILSON Facility:[facility] Start: 06-09-2022 End: 06-10-[address] JONATHAN SMITH Facility:[facility] Start: 05-28-2022 (Post-Op) Post-Op Nabor Nelson II [facility] Start: 05-28-2022 End: 05-28-2022 ambulatory Nabor Omar II Other [facility] Other Start: 05-28-2022 End: 05-28-2022 Patient encounter procedure DO Jonathan Smith Work Phone: [facility] Start: 05-17-2022 End: 05-20-2022 Evaluation and management of inpatient DR YOVANA RG Facility:[facility]1 Start: 04-16-2022 (Post-Op) Post-Op Nabor Oscoda II [facility] Start: 04-16-2022 End: 04-16-2022 ambulatory Nabor Oscoda II Other [facility] Other Start: 04-16-2022 End: 04-16-2022 Patient encounter procedure DO Jonathan Ordr.in Work Phone: [facility] Start: 03-26-2022 (Post-Op) Post-Op Nabor Omar II [facility] Start: 03-26-2022 End: 03-26-2022 ambulatory Nabor Omar II Other [facility] Other Start: 03-24-2022 End: 04-15-[address] JONATHAN SMITH Facility:[facility]1 Start: 03-18-2022 (Post-Op) Post-Op Nabor Oscoda II [facility] Start: 03-18-2022 End: 03-18-2022 ambulatory Nabor Omar II Other [facility] Other Start: 03-18-2022 Telephone encounter Nabor Oscoda II [facility] Start: 03-04-2022 End: 03-04-2022 ambulatory Nabor Oscoda II Other [facility] Other Start: 03-04-2022 Telephone encounter Nabor Oscoda II [facility] Start: 03-02-2022 End: 03-03-2022 Admission to same day surgery center DO Jonathan Ball Work Phone: [facility] [place] Start: 02-27-2022 End: 02-27-2022 ambulatory Nabor Omar II Other [facility] Other Start: 02-27-2022 Telephone encounter Nabor Oscoda II [facility] Start: 02-26-2022 End: 02-26-2022 Patient encounter procedure DO Jonathan Ball Work Phone: [facility]Pre-Surgical Testing Start: 02-20-2022 (Prolonged) Prolonge d Services Nabor Omar II [facility] Start: 02-20-2022 End: 02-20-2022 ambulatory Nabor Omar II Other [facility] Other Start: 02-11-2022 End: 02-11-2022 ambulatory Nabor Oscoda II Other [facility] Other Start: 02-11-2022 Patient encounter procedure Nabor Oscoda II [facility] Start: 01-30-2022 End: 01-31-[address] NONE LISTED REQUEST Facility: Start: 01-15-2022 End: 01-15-2022 ambulatory Nabor Oscoda II Other [facility] Other Start: 01-15-2022 Telephone encounter Nabor Oscoda II [facility] Start: 11-20-2021 End: 11-20-2021 ambulatory Nabor Oscoda II Other [facility] Other Start: 11-20-2021 Office outpatient ne w 60 minutes Nabor Omar II [facility] Procedures Date Procedure Procedure Detail Performing [...] Phone: Start: 10-04-2018 Preoperative cardiov ascular examination [email or web address] Other Start: 10-04-2018 Preoperative pulmona ry examination [email or web address] Other Start: 06-29-2017 Screening for osteoporosis [facility] Start: 07-08-2015 General examination of patient [email or web address] Other Depression screening [facility] Plan of Treatment Date Care Activity Detail Author Start: 10-08-2022 Hemolytic complement CH50 level [facility] Start: 10-08-2022 [facility] Start: 03-03-2022 [facility] Work Phone: Start: 03-02-2022 Referral to clinical research archaeologist [facility] Work Phone: Start: 03-02-2022 Hospital admission [facility] Work Phone: Complement C3 [Mass/ volume] [...] Serum or Plasma [facility] Patient referral [facility] Work Phone: [facility] Immunizations Immunization Date Immunization Notes Care Provider Rudolph de la o 07-23-2023 influenza virus vaccine, unspecified formulation DO Jonathan Smith Work Phone: [facility] 07-23-2023 influenza, high dose seasonal, preservative-free Massiel Pereira Other [employer] [facility] Other 07-09-2021 COVID-19 mRNA-1273 (Moderna) DO Jonathan Smith Work Phone: [facility] 06-16-2021 influenza virus vaccine, split virus (incl. purified surface antigen) Olayinka Raoms Other [facility] Other 06-16-2021 influenza virus vaccine, unspecified formulation DO Jonathan Smith Work Phone: [facility] 10-16-2020 COVID-19 mRNA-1273 (Moderna) DO Jonathan Ball Work Phone: [facility] 09-19-2020 COVID-19 mRNA-1273 (Moderna) DO Jonathan Ball Work Phone: [facility] 05-21-2020 pneumococcal conjuga te vaccine, 13 valent Olayinka Ramos Other [facility] 06-26-2019 influenza, seasonal, injectable [facility] 06-06-2018 influenza, injectabl e, quadrivalent, preservative free [facility] 09-16-2015 pneumococcal polysaccharide vaccine, 23 valent Jonathan Smith Other [facility] 06-28-2013 tetanus and diphther ia toxoids, adsorbed, preservative free, for adult use (5 Lf of tetanus toxoid and 2 Lf of diphtheria toxoid) Olayinka Ramos Other [facility] 06-14-2012 zoster vaccine, live Whitney corwin Earl Other [facility] 08-07-2009 pneumococcal conjuga te vaccine, 7 valent Jonathan Earl Other [facility] 08-07-2009 pneumococcal Conjuga te, unspecified formulation DO Jonathan Smith Work Phone: [facility] 08-02-2009 novel [id number], preservative-free, injectable [facility] 07-17-2009 pneumococcal polysaccharide vaccine, 23 valent Olayinka Ramos Other [facility] Payers Date Payer Category Payer Self-pay [id number] 1960 Medicare [id number] 2.1 [id number] 1960 Self-pay [id number] 1960 Unknown [id number] 2. [id number] 1954 Unknown [id number] 2.16. [id number] 1954 Unknown [id number] 2.16.84 0.1.935643.3.579.2.593 1954 Unknown [id number] 2.16.84 0.1.115612.3.579.2.593 1954 Unknown [id number] 2.16.84 0.1.293928.3.579.2.593 1954 Unknown [id number] 2.16.84 0.1.606466.3.579.2.593 1954 Unknown [id number] 2.16.84 0.1.650340.3.579.2.593 1954 Unknown [id number] 2.16.84 0.1.597529.3.579.2.593 1954 Unknown [id number] 2.16.84 0.1.869744.3.579.2.593 1954 Unknown [id number] 2.16.84 0.1.970551.3.579.2.593 1954 Unknown [id number] 2.16.84 0.1.133016.3.579.2.593 1954 Unknown [id number] 2.16.84 0.1.207899.3.579.2.593 1954 Unknown [id number] 2.16.84 0.1.687844.3.579.2.1259 Unknown [facility] [id number] Unknown Unknown [id number] 2.16.84 0.1.106899.3.579.2.593 Unknown [id number] 2.16.8 40.1.382415.3.579.2.531 Unknown [id number] 2.16.8 40.1.162500.3.579.2.531 Unknown [id number] 2.16.8 40.1.990281.3.579.2.531 Unknown [id number] 2.16.8 40.1.799071.3.579.2.531 Social History Date Type Detail Facility Unknown if ever smoked [facility] Other Sex Assigned At Sex Assigned At Bir th [facility] Other Start: 03-02-2022 End: 03-02-2022 Tobacco smoking status NHIS Ex-smoker (finding) [facility] Start: 1955 Sex Assigned At Female F [facility] Start: 11-17-2023 Tobacco smoking status PAIS Never smoked tobacco (finding) [facility] Medical Equipment Procedure Code Equipment Code Equipment Origin al Text Equipment Identifier Dates Arthroplasty, knee, total, minimally invasive Orthopaedic cement, non-medicated [id number] FDA Start: 03-02-2022 Arthroplasty, knee, total, minimally invasive Orthopaedic cement, non-medicated ()[id number] FDA Start: 03-02-2022 Arthroplasty, knee, total, minimally invasive Uncoated knee femur prosthesis ()[id number] FDA Start: 03-02-2022 Arthroplasty, knee, total, minimally invasive Tibial insert ()[id number] FDA Start: 03-02-2022 Arthroplasty, knee, total, minimally invasive Uncoated knee tibia prosthesis, metallic ()[id number] FDA Start: 03-02-2022 Arthroplasty, knee, total, minimally invasive Polyethylene patella prosthesis ()[id number] FDA Start: 03-02-2022 Arthroplasty, knee, total, minimally invasive Knee stem ()[id number] FDA Start: 03-02-2022 Goals Date Patient Goal Desired Activity /State Functional Status Date Assessment Result Facility 03-03-2022 Functional status Patient at Baseline [facility] Work Phone: Mental Status Date Assessment Result Facility 03-03-2022 Cognitive function Cognitive Sta tus Patient at Baseline [facility] Work Phone: Clinical Notes 11-20-2021 to [...] impact gut health (D) Probiotics and Prebiotics [facility] Other 01-02-2024 Evaluation note* Encounter Date Diagnosis Assessment Notes Treatment Notes Treatment Clinical Notes Sep, Obesity, unspecified classification, unspecified obesity type, unspecified whether serious comorbidity present (ICD-10 - E66.9) Sep, BMI 33.0-33.9,adult (ICD-10 - Z68.33) Sep, Other Summary of Visi t: (A) Acute vs Chronic Inflammation (B) Inflammation's connection to chronic disease (C) Food's relationship to inflammation (D) Anti Inflammatory foods [facility] Other 2023 Evaluation note* Encounter Date Diagnosis Assessment Notes Treatment Notes Treatment Clinical Notes Aug, Cervical spondylosis (ICD-10 - M47.812) [facility] Other 12-28-2023 Evaluation note* Encounter Date Diagnosis [...] use, the patient reduces the risk for NM, CVA, HTN, cardiac dysrhythmias and sudden cardiac [...] index [BMI] 35.0-35.9, adult (ICD-10 - Z68.35) [facility] Other 12-07-2023 Evaluation note* Encounter Date Diagnosis [...] Patient without side effect-A1c 5.9% February 2023 -[employer] membership, 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 Please excuse errors in desolderer. Aug, Dietary surveillance and counseling (ICD-10 - [...] 6.7% subjectivelyContinue with Ozempic. Denies side effects [facility] Other 12-05-2023 Evaluation note* Encounter Date Diagnosis [...] needed. Notify office w/ any s/s infection [facility] Other 11-21-2023 Evaluation note* Encounter Date Diagnosis [...] variety means for them and tip sharing [facility] Other 10-24-2023 Evaluation note* Encounter Date Diagnosis [...] patient set personal goal using given handout. 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 Please excuse errors in desolderer. Jun, Dietary surveillance and counseling (ICD-10 - [...] 6.7% subjectivelyContinue with Ozempic. Denies side effects [facility] Other 09-27-2023 Evaluation note* Encounter Date Diagnosis [...] use, the patient reduces the risk for NM, CVA, HTN, cardiac dysrhythmias and sudden cardiac [...] [BMI ] 35.0-35.9, adult (ICD-10 - Z68.35) [facility] Other 09-19-2023 Evaluation note* Encounter Date Diagnosis [...] fat, etc.) (D) Identifying whole grain products [facility] Other 09-12-2023 Evaluation note* Encounter Date Diagnosis Assessment Notes Treatment Notes Treatment Clinical Notes May, Mucopurulent chronic bronchitis (ICD-10 - J41.1) [facility] Other 08-30-2023 Evaluation note* Encounter Date Diagnosis [...] Patient set the following goals: NOT REVIEWED [facility] Other 08-23-2023 Evaluation note* Encounter Date Diagnosis [...] titrate up as tolerated-A1c 5.9% February 2023 -[employer] membership -Follow up in clinic in 6 weeks -Patient reports highest A1c of 6.7% subjectivelyThis note was created with voice recognition software. Please excuse errors in desolderer. Apr, Dietary surveillance and counseling (ICD-10 - [...] with the patient, and documenting clinical information. [facility] Other 08-12-2023 Evaluation note* Encounter Date Diagnosis Assessment Notes Treatment Notes Treatment Clinical Notes Apr, PSVT (paroxysmal supraventricular tachycardia) (ICD-10 - I47.1) [facility] Other 08-01-2023 Evaluation note* Encounter Date Diagnosis [...] use, the patient reduces the risk for NM, CVA, HTN, cardiac dysrhythmias and sudden cardiac [...] PSVT (paroxysmal supraventricular tachycardia) (ICD-10 - I47.1) [facility] Other 07-26-2023 Evaluation note* Encounter Date Diagnosis [...] voice recognition software. Please excuse errors in desolderer. Mar, Dietary surveillance and counseling (ICD-10 - [...] with the patient, and documenting clinical information. [facility] Other 06-22-2023 Evaluation note* Encounter Date Diagnosis [...] use, the patient reduces the risk for NM, CVA, HTN, cardiac dysrhythmias and sudden cardiac [...] - Z85.3) B/L mastectomy. No s/s recurrence [facility] Other 06-21-2023 Evaluation note* Encounter Date Diagnosis [...] tolerated the injection well without adverse reaction. [facility] Other 06-07-2023 Evaluation note* Encounter Date Diagnosis Assessment Notes Treatment Notes Treatment Clinical Notes Feb, Aftercare following joint replacement surgery (ICD-10 - Z47.1) Feb, Presence of left artificial knee joint (ICD-10 - Z96.652) Feb, Other [facility] on 03/02/2022 Happy with surgical result Follow up as needed with standing AP and lateral xrays of the left knee Patient instructed to call with any questions or concerns. [facility] Other 03-17-2023 Evaluation note* Encounter Date Diagnosis Assessment Notes Treatment Notes Treatment Clinical Notes Nov, Stage 3a chronic kidney disease (ICD-10 - N18.31) [facility] Other 03-15-2023 Evaluation note* Encounter Date Diagnosis [...] on reduction of weight. A1C every 6mo 15 Mar, 2023 Obstructive sleep apnea (adult) (pediatric) (ICD-10 - G47.33) This patient is aware of the benefits associated with IVONE: With continued use, the patient reduces the risk for NM, CVA, HTN, cardiac dysrhythmias and sudden cardiac [...] appears to be in remission Restarting biologics. [facility] Other 02-15-2023 Evaluation note* Encounter Date Diagnosis [...] dorsal aspect of her right ring finger. [facility] Other 02-02-2023 Evaluation note* Encounter Date Diagnosis [...] plan. All of her questions were addressed. [facility] Other 01-25-2023 Evaluation note* Encounter Date Diagnosis Assessment Notes Treatment Notes Treatment Clinical Notes Sep, Lesion of finger (ICD-10 - L98.9) Patient is progressing well. Continue local wound care as previously instructed with neosporin. Continue blood thinner as prescribed. Continue to follow up with vascular for blood flow tests and rheumatology. Call with questions/concerns. Sep, Ischemia (ICD-10 - I99.8) [facility] Other 01-20-2023 Evaluation note* Encounter Date Diagnosis [...] otherwise completely resolved. Etiology remains a mystery [facility] Other 01-19-2023 Evaluation note* Encounter Date Diagnosis [...] thrombus. I am recommending she see a box toe cutter for the severe calcification identified on her [...] be calling Dr. Jonathan smith and Dr. Micki oSto for further advice and work-up for this [...] specified soft tissue disorders (ICD-10 - M79.89) [facility] Other 01-16-2023 Evaluation note* Encounter Date Diagnosis Assessment Notes Treatment Notes Treatment Clinical Notes Sep, Essential (primary) hypertension (ICD-10 - I10) [facility] Other 01-11-2023 Evaluation note* Encounter Date Diagnosis [...] treatment plan. Sep, Ischemia (ICD-10 - I99.8) [facility] Other 01-09-2023 Evaluation note* Encounter Date Diagnosis [...] prior to bedtime. Weight loss. Continue PPI [facility] Other 01-05-2023 Evaluation note* Encounter Date Diagnosis [...] digits o f hand (ICD-10 - I99.8) [facility] Other 09-15-2022 Evaluation note* Encounter Date Diagnosis Assessment Notes Treatment Notes Treatment Clinical Notes May, Aftercare following joint replacement surgery (ICD-10 - Z47.1) May, Presence of left artificial knee joint (ICD-10 - Z96.652) May, Status post left knee replacement (ICD-10 - Z96.652) May, Other [facility] at [facility] on 03/02/2022 Doing well. As I explained to her I am comfortable with her restarting her rheumatological medications if her and her barrel loader and cleaner feel like she needs them. As we [...] to call with any questions or concerns. [facility] Other 08-04-2022 Evaluation note* Encounter Date Diagnosis Assessment Notes Treatment Notes Treatment Clinical Notes Apr, Aftercare following joint replacement surgery (ICD-10 - Z47.1) Apr, Presence of left artificial knee joint (ICD-10 - Z96.652) Apr, Status post left knee replacement (ICD-10 - Z96.652) Apr, Other [facility] at [facility] on 03/02/2022 Doing well. No concerns for incision at this time. I did inform the patient that I be comfortable with her restarting her rheumatoid medications at this point in the postoperative period. However, the patient would like to wait until she comes back from [place]. I think that is perfectly appropriate. Patient may continue activities as tolerated. She recently finished PT and is not planning to continue it at this time. Continue taking omnt-tug-ybuyihp anti-inflammatories as needed for assistance with swelling and pain associated with the operative extremity. Follow-up in 6 weeks for repeat examination and long standing x-rays. [facility] Other 07-14-2022 Evaluation note* Encounter Date Diagnosis Assessment Notes Treatment Notes Treatment Clinical Notes Mar, Aftercare following joint replacement surgery (ICD-10 - Z47.1) Mar, Presence of left artificial knee joint (ICD-10 - Z96.652) Mar, Status post left knee replacement (ICD-10 - Z96.652) Mar, Other [facility] on 03/02/2022 Doing really well. Zipline removed today. As we had discussed preoperatively and as her barrel loader and cleaner had recommended, we will plan for her [...] as previously instructed. This includes wearing their MANJU hose on the operative extremity for another week. Follow-up in 3 weeks for repeat examination and 3 view x-rays of the left knee. [facility] Other 07-06-2022 Evaluation note* Encounter Date Diagnosis Assessment Notes Treatment Notes Treatment Clinical Notes Mar, Aftercare following joint replacement surgery (ICD-10 - Z47.1) [facility] Other 07-06-2022 Evaluation note* Encounter Date Diagnosis Assessment Notes Treatment Notes Treatment Clinical Notes Mar, Aftercare following joint replacement surgery (ICD-10 - Z47.1) Mar, Presence of left artificial knee joint (ICD-10 - Z96.652) Mar, Status post left knee replacement (ICD-10 - Z96.652) Mar, Other [facility] at [facility] on 03/02/2022 Doing well. Given her history [...] as previously instructed. This includes wearing their MANJU hose on the operative extremity for another two weeks. Follow-up in 1 week for a recheck and likely removal of Zipline and if everything looks good then 3 weeks for repeat examination and 3 view x-rays of the left knee. [facility] Other 06-17-2022 Evaluation note* Encounter Date Diagnosis Assessment Notes Treatment Notes Treatment Clinical Notes Feb, Arthritis of left knee (ICD-10 - M17.12) [facility] Other 06-10-2022 Evaluation note* Encounter Date Diagnosis [...] patient could proceed with surgery safely. The merchandise presentation manager was vital for surgery timing and [...] plans. Prolonged services time spent: 32 minutes [facility] Other 06-01-2022 Evaluation note* Encounter Date Diagnosis Assessment Notes Treatment Notes Treatment Clinical Notes Feb, Other osteoporosis without current pathological fracture (ICD-10 - M81.8) Feb, Arthritis of left knee (ICD-10 - M17.12) Feb, Other supervisor press room (current) drug therapy (ICD-10 - Z79.899) Feb, Other 1. Left TKA Home Medications - DVT prophylaxis: Aspirin - NSAID: Celebrex versus prednisone 5 mg x 10-day postop. She tells me she has a history of CKD but we will await her creatinine level from [facility] before making a final decision on NSAID usage perioperatively. - Disposition: Inpatient Joints Meeting Checklist - Pharmacy: [facility] to bed - Approach/Technique: VANESSA - [...] would be important regarding her immunosuppressant medications. Simpani has been recommended by [facility]/Rheumatology guidelines to schedule surgery during week 5 or week 9 after the last dose. In her case, she has been off of it for 3 months. Furthermore, these guidelines recommend continued leflunomide use perioperatively. I discussed these recommendations with the patient and we are going to proceed with surgery on 03/02. [facility] Other 03-10-2022 Evaluation note* Encounter Date Diagnosis Assessment Notes Treatment Notes Treatment Clinical Notes Nov, Acute pain of left knee (ICD-10 - M25.562) Nov, Other osteoporosis without current pathological fracture (ICD-10 - M81.8) Nov, Other residential (current) drug therapy (ICD-10 - Z79.899) Nov, [...] consider doing that with leflunomide as well. [facility] Other [facility] Other Evaluation note* Diagnosis Onset Date Resolution Status COPD (chronic obstructive pulmonary disease) acute High cholesterol acute Hypertension acute Sleep apnea with use of cont inuous positive airway pressure (CPAP) acute Status post left knee replacement acute [facility] Work Phone: Evaluation noteNo assessment information available [facility] Work Phone: evaluation note* Diagnosis Onset Date Resolution Status Dietary surveillance and counseling acute Exercise counseling acute Obesity, Class II, BMI 35-39.9 acute Type 2 diabetes mellitus acu te [facility] Work Phone: evaluation note* Diagnosis Onset Date Resolution Status Dietary surveillance and counseling acute Exercise counseling acute Chronic bronchitis, mucopurulent acute Lumbar spondylosis acute Mixed hyperlipidemia acute Obesity acute Primary hypertension acute PSVT (paroxysmal supraventricular tachycardia) acute Type 2 diabetes mellitus with hyperglycemia acute Neck muscle spasm acute Neck pain acute [facility] Work Phone: evaluation note* Diagnosis Onset Date Resolution Status Chronic bronchitis, mucopurulent acute Lumbar spondylosis acute Mixed hyperlipidemia acute Obesity acute Primary hypertension acute PSVT (paroxysmal supraventricular tachycardia) acute Type 2 diabetes mellitus with hyperglycemia acute Neck muscle spasm acute Neck pain acute [facility] Work Phone: Evaluation note* Diagnosis Onset Date Resolution Status Chronic bronchitis, mucopurulent acute Lumbar spondylosis acute Mixed hyperlipidemia acute Obesity acute Primary hypertension acute PSVT (paroxysmal supraventricular tachycardia) acute Type 2 diabetes mellitus with hyperglycemia acute Neck muscle spasm acute Neck pain acute Dietary surveillance and counseling acute Exercise counseling acute [facility] Work Phone: evaluation note* Diagnosis Onset Date Resolution Status Neck muscle spasm acute Neck pain acute Dietary surveillance and counseling acute Exercise counseling acute Chronic bronchitis, mucopurulent acute Lumbar spondylosis acute Mixed hyperlipidemia acute Obesity acute Primary hypertension acute PSVT (paroxysmal supraventricular tachycardia) acute Type 2 diabetes mellitus with hyperglycemia acute [facility] Work Phone: History general Narrative - Reported* Type Description Date Medical History COPD Medical History RHEUMATOID ARTHRITIS Medical History CERVICAL STENOSIS Medical History HYPERTENSION Medical History HIGH CHOLESTEROL Medical History ACID REFLUX Medical History HX OF INFECTION Medical History high blood pressure Surgical History Tonsilectomy 1968 Surgical History Tubal [...] History Bilateral Myringotomy and Tube Placement 2012 [facility] Other History general Narrative - Reported* Type [...] History Tonsilectomy 1968 Surgical History Tubal Ligation 1981 Surgical History Bilateral breast Augmentation 1 981 [...] Arthroscopy 202 2 Hospitalization History See Above [facility] Other History general Narrative - Reported* Type [...] Total Knee Arthroplasty Hospitalization History See Above [facility] Other History general Narrative - Reported* Type [...] Arthroplasty 20 22 Hospitalization History See Above [facility] Other Hospital Discharge [facility] Work Phone: Reason for referral (narrative)* Reason Referral for fractur e of proximal phalanx of 2nd and 3rd toe of the right foot. Diagnosis 1 Closed nondisplaced fracture of proximal phalanx of lesser toe of right foot, initial encounter (S92.514A) Referral Organization [facility] Dali granados Referring Provider First Name Jonathan Referring Provider Last Name Earl Referring Provider Specialty Internal Me dicine Referred Organization [facility] Referred Provider Donta Elias Referred Address [address], [place],[address] Referred Provider Specialty Podiatry - S urgical Chiropody Referral Priority Routine General Notes Patient being referr ed for evaluation and treatment of an acute nondisplaced fracture of the proximal phalanx of the 2nd and 3rd toe of the right foot. There is mention of extension into the joint space [facility] Other Chief Complaint and Reason for Visit [...] Complaint proteinuria Chief Complaint proteinuria z47.1 z96.652 Chief Complaint Obesity Healthy Fats 3 month follow up Reason for Visit Dietary surveillance and counseling Exercise counseling Obesity, Class II, BMI 35-39.9 Type 2 diabetes mellitus Chief Complaint Healthy Fats 3 month follow up Amb Documentation neck pain Reason for Visit Dietary surveillance and counseling Exercise counseling Chronic bronchitis, mucopurulent Lumbar spondylosis Mixed hyperlipidemia Obesity Primary hypertension PSVT (paroxysmal supraventricular tachycardia) Type 2 diabetes mellitus with hyperglycemia Neck muscle spasm Neck pain Chief Complaint Healthy Fats 3 month follow up Amb Documentation neck pain breakfast Reason for Visit Dietary surveillance and counseling Exercise counseling Chronic bronchitis, mucopurulent Lumbar spondylosis Mixed hyperlipidemia Obesity Primary hypertension PSVT (paroxysmal supraventricular tachycardia) Type 2 diabetes mellitus with hyperglycemia Neck muscle spasm Neck pain Chief Complaint Healthy Fats 3 month follow up Amb Documentation neck pain breakfast anti inflammatory eating Reason for Visit Chronic bronchitis, mucopurulent Lumbar spondylosis Mixed hyperlipidemia Obesity Primary hypertension PSVT (paroxysmal supraventricular tachycardia) Type 2 diabetes mellitus with hyperglycemia Neck muscle spasm Neck pain Chief Complaint 3 month follow up Amb Documentation neck pain breakfast anti inflammatory eating Reason for Visit Chronic bronchitis, mucopurulent Lumbar spondylosis Mixed hyperlipidemia Obesity Primary hypertension PSVT (paroxysmal supraventricular tachycardia) Type 2 diabetes mellitus with hyperglycemia Neck muscle spasm Neck pain Dietary surveillance and counseling Exercise counseling Chief Complaint Amb Documentation neck pain breakfast anti inflammatory eating 3 month follow up Reason for Visit Neck muscle spasm Neck pain Dietary surveillance and counseling Exercise counseling Chronic bronchitis, mucopurulent Lumbar spondylosis Mixed hyperlipidemia Obesity Primary hypertension PSVT (paroxysmal supraventricular tachycardia) Type 2 diabetes mellitus with hyperglycemia Family History Relationship Condition Age at Onset Recorded Date/T andie Not Specified Pneumonia due to COVID-19 virus Unknown Myocardial infarction Unknown Chronic obstructive pulmonary disease Unk nown Hypertension Unknown father Myocardial infarction Unknown brother End-stage renal disease Unknown Relationship Condition Age at Onset Recorded Date/T andie Not Specified Pneumonia due to COVID-19 virus Unknown Myocardial infarction Unknown Chronic obstructive pulmonary disease Unk nown Hypertension Unknown Unknown father Myocardial infarction Unknown brother End-stage renal disease Unknown daughter Obesity Unknown Relationship Condition Age at Onset Recorded Date/T andie mother Pneumonia due to COVID-19 virus Unknown Myocardial infarction Unknown Chronic obstructive pulmonary disease Unk nown Hypertension Unknown Unknown father Myocardial infarction Unknown brother End-stage renal disease Unknown daughter Obesity Unknown Advance Directives Advance Directive Response Recorded Date/ Time Advance Directives No June 17, 2017 2:12pm Advance Directive Response Recorded Date/ Time Advance Directives No June 17, 2017 1:12pm Summary Purpose Additional Source Comments REASON FOR VISIT (unrecogniz ed section and content) informLeft Knee Painpreop ap ptsH & P LEFT TOTAL KNEE [id number] InformationPOST OP MEDSNo InformationPOST OP LTK FOLLOW UP1 WK WOUND CHECK3 WEEK RECHECK6 WK WX2 WK FOLLOW UP; CTA [facility] 09/08/22, CAROTID DUPLEX 11:30Aopen sore on ring fingerRight Ring Finger IschemiaRefillTo go over Echocardiogrambumps on left armRecheck Right Hand2 WK FOLLOW UP; CT SCAN [facility] 10/05/22Reche Right Hand3 MONTH FOLLOW UPNo InformationRecheck LTKAWELLNESSLab/Test Results4 WEEK RECHECKInitial WMNRefillAMS Diabetes diagnosis and A1C informationdiscuss recent testing resultsNo InformationWMNWMN exerciseNo InformationrefillNo InformationNo Information6 week follow upWMNlab resultsAS OzempicNo InformationHolter ResultsNo InformationRight Foot BruisingXR resultsWMN f/u3 month Follow upRefillNo InformationNo InformationNo Information Care Teams (unrecognized sec tion and content) Team Status: Active Member Role Status Dates Jonathan Smith DO Primary Care Provider Active Team Status: Active Member Role Status Dates Jonathan Smith DO Primary Care Provider Active Start: December 21, 2023 JOANNE Da Silva Attending Provider Active Start : December 21, 2023 Team Status: Inactive Member Role Status Dates Jonathan Smith DO Primary Care Provider Active Start: January 05, 2024 End: January 05, 2024 Carolyn Lees APRN [employer] Attending Provider Act toñito Start: January 05, 2024 End: January 05, 2024 Team Status: Inactive Member Role Status Dates Jonathan Smith DO Primary Care Provider Active Start: January 06, 2024 End: January 06, 2024 CAROL ANN Hayes Attending Provider Active Start: January 06, 2024 End: January 06, 2024 Team Status: Active Member Role Status Dates Jonathan Smith DO Primary Care Provider Active Start: January 11, 2024 Nabor Wilson MD Attending Provider Active St art: January 11, 2024 Team Status: Inactive Member Role Status Dates Jonathan Smith DO Primary Care Provider Active Start: February 16, 2024 End: February 16, 2024 CAROL ANN Hayes Attending Provider Active Start: February 16, 2024 End: February 16, 2024 Team Status: Inactive Member Role Status Dates Jonathan Smith DO Primary Care Provider Active Start: February 29, 2024 End: February 29, 2024 Olayinka Ramos DO Attending Provider Active St art: February 29, 2024 End: February 29, 2024 Team Status: Inactive Member Role Status Annetta Smith DO Primary Care Provide r, Attending Provider Active Start: March 09, 2024 End: March 09, 2024 Team Status: Active Member Role Status Annetta Smith DO Primary Care Provider Active Team Status: Inactive Member Role Status Annetta Smith DO Primary Care Provider Active Start: November 23, 2023 End: November 23, 2023 CAROL ANN Carmona Attending Provider Active Start: November 23, 2023 End: November 23, 2023 Team Status: Inactive Member Role Status Annetta Smith DO Primary Care Provide r, Attending Provider Active Start: December 09, 2023 End: December 09, 2023 Team Status: Active Member Role Status Dates Jonathan Smith DO Primary Care Provider Active Start: December 21, 2023 JOANNE Da Silva Attending Provider Active Start : December 21, 2023 Team Status: Inactive Member Role Status Dates Jonathan Smith DO Primary Care Provider Active Start: January 05, 2024 End: January 05, 2024 Carolyn eLes APRN [employer]C Attending Provider Act toñito Start: January 05, 2024 End: January 05, 2024 Team Status: Inactive Member Role Status Dates Jonathan Smith DO Primary Care Provider Active Start: January 06, 2024 End: January 06, 2024 Flavia Annetta , RD LD Attending Provider Active Start: January 06, 2024 End: January 06, 2024 Team Status: Active Member Role Status Dates Jonathan Smith DO Primary Care Provider Active Start: January 11, 2024 Nabor Wilson MD Attending Provider Active St art: January 11, 2024 Team Status: Inactive Member Role Status Dates Jonathan Smith DO Primary Care Provider Active Start: February 16, 2024 End: February 16, 2024 CAROL ANN Hayes Attending Provider Active Start: February 16, 2024 End: February 16, 2024 Team Status: Active Member Role Status Dates Jonathan Smith DO Primary Care Provide r, Attending Provider Active Start: November 16, 2023 Team Status: Inactive Member Role Status Dates Jonathan Smith DO Primary Care Provider Active Start: November 17, 2023 End: November 17, 2023 Olayinka Ramos DO Attending Provider Active St art: November 17, 2023 End: November 17, 2023 Team Status: Inactive Member Role Status Dates Jonathan Smith DO Primary Care Provider Active Nabor Nelson II, MD Attending Provider Active Deidre Moore , MARKUS Other Provider Active Vaishali Howell , MARKUS Other Provider Active Maria E Regalado , RN Other Provider Active Ebony Omalley , RN Other Provider Active Radha Presley , MARKUS Other Provider Active Melvi Gonzalez , RN Other Provider Active Susanne Best , RN Other Provider Active Letty Hurtado MD [...] MD Other Provider Active Teagan Fay , [employer]C Other Provider Active Chung Mary MD Other [...] Morrison APRN Other Provider Active Leyla Garcia RN Other Provider Active Team Status: Inactive Member Role Status Dates Jonathan Smith , DO Primary Care Provider Active Nabor Nelson II, MD Attending Provider Active Team Status: Inactive [...] Active Nabor Wilson MD Attending Provider Active Team Status: Inactive Member Role Status Dates Massiel Fitt - Refer , [facility] Attending Provider Active Start: September 14, 2023 End: September 14, 2023 Team Status: Inactive Member Role Status Dates Massiel Fitt - Refer , [facility] Attending Provider Active Start: September 21, 2023 End: September 21, 2023 Team Status: Active Member Role Status Dates Jonathan Smith , Primary Care Provider Active Start: September 21, 2023 Olayinka Ramos DO Attending Provider Active St art: September 21, 2023 Team Status: Inactive Member Role Status Dates Jonathan Smith , Primary Care Provider Active Start: February 29, 2024 End: February 29, 2024 Olayinka Ramos DO Attending Provider Active St art: February 29, 2024 End: February 29, 2024 Team Status: Inactive Member Role Status Dates Jonathan Smith , DO Primary Care Provide r, Attending Provider Active Start: March 09, 2024 End: March 09, 2024 Goals (unrecognized section and content) Goals may be documented in a n alternate section INFORMATION SOURCE (unrecogn ized section and content) DATE CREATED AUTHOR 11/14/2022 [facility] DATE CREATED AUTHOR AUTHOR'S ORGANIZ ATION 01/25/2023 [facility] DATE CREATED AUTHOR AUTHOR'S ORGANIZ ATION 01/28/2024 [facility] EPIC DATE CREATED AUTHOR AUTHOR'S ORGANJIMMY ATION 02/14/[address] [facility] FOR RECORDS PERTAINING TO PATIENTS WHO ARE [...] BE BASED ON THE PRIMARY CLINICAL RECORDS. [facility]. provides no warranty or guarantee of the accuracy or completeness of information in this document.
[2024-03-09 10:27] LABS: Basophils Absolute Auto 0.1 10^3/uL (0.0-0.1); Basophils Percent Auto 0.7 % (0.2-2.0); Eosinophils Absolute Auto 0.2 10^3/uL (0.0-0.7); Eosinophils Percent Auto 3.6 % (0.9-7.0); Hematocrit 38.6 % (36.0-48.0); Hemoglobin 12.8 g/dL (12.0-16.0); Immature Granulocytes Abs Auto 0.02 10^3/uL (0.00-0.03); Immature Granulocytes Pct Auto 0.3 % (0.0-0.5); Lymphocytes Absolute Auto 1.7 10^3/uL (1.2-3.8); Lymphocytes Percent Auto 24.9 % (20.5-60.0); Mean Corpuscular HGB Conc 33.2 g/dL (29.9-35.2); Mean Corpuscular Hemoglobin 30.4 pg (26.7-34.0); Mean Corpuscular Volume 91.7 fL (81.0-99.0); Mean Platelet Volume 11.8 fL (9.5-13.5); Monocytes Absolute Auto 0.8 10^3/uL (0.3-0.8); Monocytes Percent Auto 11.5 % (1.7-12.0); Neutrophils Absolute Auto 3.9 10^3/uL (1.4-6.5); Platelet Count 241 10^3/uL (150-450); Red Blood Count 4.21 10^6/uL (4.20-5.40); Red Cell Distribution Width 12.7 % (11.0-15.0); White Blood Count 6.7 10^3/uL (4.0-11.0)
[2024-03-09 10:47] LABS: Erythrocyte Sedimentation Rate 48 mm/hr (<=30)
[2024-03-09 11:22] LABS: Alanine Aminotransferase 27 U/L (14-59); Albumin Globulin Ratio 1.1; Albumin Level 3.7 g/dL (3.4-5.0); Alkaline Phosphatase 63 U/L (46-116); Aspartate Amino Transferase 22 U/L (15-37); Bilirubin Direct 0.2 mg/dL (0.0-0.2); Bilirubin Total 0.6 mg/dL (0.2-1.0); Estimated GFR (African America 59 (>=60); Estimated GFR (Non-African Ame 49 (>=60); Globulin 3.3 g/dL
== END 2024-03-09 09:55 | disposition home or self-care (01) ==
LOC: LAB 09:56
PROVIDERS: PCP Internal Medicine; Visit Provider Internal Medicine Rheumatology
DX: M05.79 Rheumatoid arthritis with rheumatoid factor of multiple sites without organ or systems involvement (principal); Z79.899 Other long term (current) drug therapy
CPT/HCPCS: 36415; 80076; 82565; 85025; 85652

== ENCOUNTER 2024-05-10 10:35 | Outpatient (OUT) | payer MEDICARE, OTHER, SELFPAY ==
[2024-05-10 10:51] LABS: Basophils Absolute Auto 0.1 10^3/uL (0.0-0.1); Basophils Percent Auto 0.7 % (0.2-2.0); Eosinophils Absolute Auto 0.3 10^3/uL (0.0-0.7); Eosinophils Percent Auto 3.8 % (0.9-7.0); Hematocrit 40.7 % (36.0-48.0); Hemoglobin 13.5 g/dL (12.0-16.0); Immature Granulocytes Abs Auto 0.01 10^3/uL (0.00-0.03); Immature Granulocytes Pct Auto 0.1 % (0.0-0.5); Lymphocytes Absolute Auto 1.9 10^3/uL (1.2-3.8); Lymphocytes Percent Auto 26.9 % (20.5-60.0); Mean Corpuscular HGB Conc 33.2 g/dL (29.9-35.2); Mean Corpuscular Hemoglobin 30.6 pg (26.7-34.0); Mean Corpuscular Volume 92.3 fL (81.0-99.0); Mean Platelet Volume 11.4 fL (9.5-13.5); Monocytes Absolute Auto 0.8 10^3/uL (0.3-0.8); Monocytes Percent Auto 11.3 % (1.7-12.0); Neutrophils Percent Auto 57.2 % (43.0-75.0); Platelet Count 252 10^3/uL (150-450); Red Blood Count 4.41 10^6/uL (4.20-5.40); Red Cell Distribution Width 12.6 % (11.0-15.0); White Blood Count 6.9 10^3/uL (4.0-11.0)
--- OUTSIDE RECORDS SUMMARY | 2024-05-10 10:59 | XMS_ITS | CCD ---
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 Name Role Phone Nabor Nelson II Unavailable DO Jonathan Smith Primary Care Provider [phone] MD Nabor Nelson II Attending Provider [phone] MARKUS Moore Other Provider Unavailable MARKUS Howell [...] Pablo Other Provider PAM Fay Other Provider MD Chung Mary Other Provider MD Garry Anglin Other Provider MD Soren Chaudhari Other Provider Unavailable MD Lidya Toledo Other Provider MD Pawel Mendoza Other Provider Isra Bhatia MD Yoshi Other Provider DO Sara Velazquez Other Provider Al Sherry Liu MD Hanhayley Other Provider DO Eliot Ortiz Other Provider [phone] MiniDO Tristen wolfe Other Provider KESHAWN Morrison Other Provider MARKUS Garcia Other Provider Unavailable DO Jonathan Smith Primary Care Provider MD Nabor Nelson II Attending Provider [phone] DO Jonathan Smith Primary Care Provider MD [...] Primary Care Unavailable OMARNABOR CELAYA Attending Unavailable MOARNABOR ROWE Admitting Unavailable Ball, DO Castillo Primary Care Provider MD Nabor Wilson Attending Provider [phone] MD Nabor Nelson II Attending Provider MD Kiana Munson Attending Provider Olayinka Ramos Unavailable Massiel Pereira Unavailable DO Jonathan Smith Primary Care Provider [phone] DO Olayinka Ramos Attending Provider RAYMOND SAUCEDA [...] Tape (1 source) Adhesive Tape Substance Allergy [facility] Repository Hydroxychloroquine (1 source) Hydroxychloroquine Drug Allergy [facility] Repository Opioid Agonists (1 source) Morphine Drug Allergy [facility] Repository (20 sources) Adhesive Tape Drug allergy Unknown [facility] Other (20 sources) Hydroxychloroquine Drug Allergy rash [facility] (20 sources) Morphine Drug Allergy Unknown, Unresponsive [facility] (19 sources) Adhesive Tape Allergy to substance Redness of Skin, skin tears [facility] (1 source) Adhesive agent Drug allergy (disorder) [facility] Repository (1 source) Hydroxychloroquine Drug Allergy [facility] Repository (1 source) Morphine Drug Allergy [facility] Repository (20 sources) Morphine Sulfate (Concentrate) *ANALGESICS - OPIOI Propensity to adverse reactions Unknown [facility] Other (3 sources) Allergies Reconciled Propensity to adverse reactions Unknown 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 take 0.5 tablet by m outh every other day Leflunomide 10 MG 1/2 tablet Orally ever y other day Active take 1 tablet by mouth every oth er day Leflunomide 20 MG 1 tablet Orally every other day Active lisinopril 20 mg oral tablet (20 sources) Angiotensin Converting Enzyme Inhibitor Start: 04-17-2024 take 1 tablet by mouth twice daily Lisinopril Active 0 .ROUTE .COMPLEX 180 April 17, 2024 11:05am TAKE 1 TABLET BY MOUTH TWICE A DAY FOR 90 DAYS Start: 12-09-2023 End: 04-17-2024 take 20 mg by mouth twice daily Lisinopril Discontinued 20 MG PO Twice daily December 09, 2023 3:32pm April 17, 2024 11:05am Start: 06-15-2019 End: 12-09-2023 take 20 mg by mouth once daily Lisinopril Discontinued 20 MG PO Daily June 15, 2019 12:00am December 09, 2023 3:32pm metoprolol tartrate 100 mg oral tablet (20 sources) beta-Adrenergic Becca Start: 11-16-2023 take 100 mg by mouth once daily Metoprolol Succinate Active 100 MG PO Daily November 16, 2023 1:00am Start: 04-02-2023 take 1 capsule by mo nch once daily Metoprolol Succinate 50 MG 1 capsule Orally Once a day Mar, Active take 1 tablet by khurram once daily Metoprolol Succinate ER 100 MG [...] a day for 14 days Sep, Active [place] 2-Vts-Lhf-Fish Oil (Fish Oil) 1,200 (144-216) mg Capsule (19 sources) Start: 02-12-2022 take 1 capsule by mouth once daily [place] 2-Cgx-Xbl-Fish Oil (Fish Oil) 1,200 (144-216) mg Capsule Active 1200 CAP PO Daily February 11, 2022 11:00pm Start: 02-12-2022 take 1 capsule by mo [facility] once daily [place] 4-Dag-Vfy-Fish Oil (Fish Oil) 1,200 (144-216) mg Capsule [...] 2 mg/dose (8 mg/3 mL) pen injector (18 sources) Start: 02-29-2024 inject 2 mg by subcutaneous injection every week Semaglutide (Ozempic) 2 mg/dose (8 mg/3 mL) pen injector Active 2 MG SUBCUT every week 9 February 29, 2024 10:08am Start: 11-17-2023 End: 02-29-2024 inject 2 mg by subcutaneous injection every week Semaglutide (Ozempic) 2 mg/dose (8 mg/3 mL) pen injector Discontinued 2 MG SUBCUT every week 9.75 90 November 17, 2023 10:19am February 29, 2024 10:09am Start: 11-17-2023 inject 2 mg by subcu taneous injection every week Semaglutide (Ozempic) 2 mg/dose (8 mg/3 mL) pen injector Active 2 MG SUBCUT every week 9.75 90 November 17, 2023 10:19am Start: 11-16-2023 End: 11-17-2023 Semaglutide (Ozempic) 2 mg/d ose (8 mg/3 mL) pen injector Discontinued MG SUBCUT November 16, 2023 1:00am November 17, 2023 10:20am traMADol hydrochloride 50 mg oral tablet (20 sources) Opioid Agonist Start: 11-17-2023 End: 04-14-2024 take 50 mg by mouth three times daily Tramadol Active 50 MG PO Three times daily 70 April 14, 2024 1:55pm start 04/14 Start: 06-09-2023 take 1 tablet by khurram [...] of vitamin d daily x 6 months. 18 Nov, 2021 Active take 1 tablet by mouth once [...] 3:48pm ascorbic acid 500 mg oral tablet (19 sources) Vitamin C Start: 03-03-2022 End: 11-17-2023 [...] 9:37am Start: 02-11-2022 take 1 capsule by [facility] every twelve hours Cefadroxil 500 MG [...] 9:36am docusate sodium 50 mg / sennosides, group home 8.6 mg oral tablet (20 sources) Start: [...] hrs Not-Taking methylPREDNISolone 4 mg oral tablet (7 sources) Corticosteroid Start: 01-05-2024 End: 02-29-2024 take 1 tablet by mouth once Methylprednisolone (Medrol (Abad)) 4 mg tablets,dose pack Discontinued 0 PO per package directions 03 03January 05, 2024 12:00am February 29, 2024 9:25am PO PER PKG DIR morphine sulfate 15 mg extended release oral tablet (19 sources) Opioid Agonist Start: 03-03-2022 End: 11-17-2023 [...] release oral tablet (15 sources) 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 take 1 tablet by mouth twice daily at mealtime Pentoxifylline 400 MG 1 tablet with meals Orally Twice a day Not-Taking polyethylene glycol 3350 25678 mg powder for oral solution (20 sources) Osmotic Laxative Start: 02-11-2022 End: 11-17-2023 Polyethylene Glycol 3350 (Miralax) 17 gram Powder In Packet Discontinued 17 GM PO Daily March 03, 2022 12:00am November 17, 2023 9:39am pravastatin sodium 80 mg oral tablet (19 sources) HMG-CoA Reductase Inhibitor Start: 06-15-2019 End: 02-12-2022 take 80 mg by mouth once daily Pravastatin Discontinued 80 MG PO Daily June 15, 2019 12:00am February 12, 2022 11:41am prochlorperazine 5 mg oral tablet (19 sources) Phenothiazine Start: 03-03-2022 End: 11-17-2023 take 10 mg by mouth every six hours Prochlorperazine Maleate Discontinued 10 MG PO Q6H March 03, 2022 12:00am November 17, 2023 9:39am spironolactone 25 mg oral tablet (2 sources) Aldosterone Antagonist Start: 03-09-2024 End: 03-09-2024 take 25 mg by mouth once daily Spironolactone Discontinued 25 MG PO Daily March 09, 2024 12:00am March 09, 2024 9:31am tiZANidine 2 mg oral capsule (7 sources) Central alpha-2 Adrenergic Agonist Start: 01-05-2024 End: 02-29-2024 take 2 mg by mouth three times daily Tizanidine Discontinued 2 MG PO Three times daily 12 07January 05, 2024 12:00am February 29, 2024 9:26am triamcinolone acetonide 40 mg/ml injectable suspension (20 [...] fracture Episodic Genitourinary symptoms and ill-defined conditions (11 sources) Genuine stress incontinence; Translations: [Stress incontinence [...] Onset: 3 Resolved: 1 Episodic Intestinal infection (14 sources) Enterocolitis due to Clostridium difficile, not specified as recurrent; Translations: [Clostridial gastroenteritis] Onset: 2 Episodic Joint disorders and dislocations; trauma-related (3 sources) 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; Translations: [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] Onset: 8 Chronic Menopausal disorders (3 sources) Primary ovarian failure; Translations: [Other primary ovarian failure] Onset: 7 Chronic Miscellaneous mental health disorders (11 sources) Primary insomnia; Translations: [Primary insomnia] 12-08-2023 [...] current use of drug therapy; Translations: [Other assisted (current) drug therapy] 12-08-2023 Episodic Other aftercare (3 sources) 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; Translations: [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] Onset: 2 Resolved: 2 Episodic Other aftercare (3 sources) High risk drug monitoring status; Translations: [buttermaker (current) use of opiate analgesic] Episodic Other aftercare (1 source) Drug therapy finding; Translations: [penitentiary (current) use of opiate analgesic] 03-09-2024 Episodic Other aftercare (1 source) penitentiary (current) use of opiate analgesic; Translations: [Long-term (current) use of other medications] 03-09-2024 Episodic Other bone disease and musculoskeletal deformities (3 sources) Other specified disorders of bone density and structure, left thigh; Translations: [Other specified disorders of bone density and structure, left thigh] Episodic Other bone disease and musculoskeletal deformities (8 sources) Osteopenia; Translations: [Other specified disorders of bone density and structure, left thigh] 12-08-2023 Episodic Other circulatory disease (3 sources) Raynaud's disease; Translations: [Raynaud's syndrome without gangrene] Chronic Other circulatory disease (8 sources) Raynaud's phenomenon; Translations: [Raynaud's syndrome without [...] leg] 12-08-2023 Episodic Other connective tissue disease (7 sources) Muscle spasm of cervical muscle of neck; Translations: [Other muscle spasm] 01-05-2024 Episodic Other connective tissue disease (6 sources) Other muscle spasm; Translations: [Spasm of muscle] 01-05-2024 Episodic Other gastrointestinal disorders (11 sources) Irritable bowel syndrome with diarrhea; Translations: [Irritable bowel syndrome with diarrhea] 12-08-2023 Chronic Other gastrointestinal disorders (20 sources) Dysphagia; Translations: [Dysphagia, unspecified] 12-08-2023 Episodic Other gastrointestinal disorders (3 sources) Diarrhea; Translations: [Diarrhea, unspecified] Episodic Other hematologic conditions (1 source) Elevated erythrocyte sedimentation rate; Translations: [ELEVATED ERYTHROCYTE SED RATE] Onset: Episodic Other hematologic conditions (11 sources) ESR raised; Translations: [Elevated erythrocyte sedimentation [...] upper limb Chronic Other nervous system disorders (11 sources) Carpal tunnel syndrome; Translations: [Carpal tunnel syndrome, bilateral upper limbs] 12-08-2023 Chronic Other non-epithelial cancer of skin (11 sources) Basal cell carcinoma of nose; Translations: [...] nutritional; endocrine; and metabolic disorders (16 sources) Obesity, unspecified; Translations: [Obesity, unspecified] Chronic [...] Translations: [Obesity, Class II, BMI 35-39.9] Onset: 01-09-202 4 Chronic Other nutritional; endocrine; and metabolic [...] Translations: [Dyshidrosis [pompholyx]] Episodic Other skin disorders (8 sources) Night sweats; Translations: [Generalized hyperhidrosis] 12-08-2023 Episodic Other skin disorders (1 source) Vesicular eczema; Translations: [Dyshidrosis [pompholyx]] 12-08-2023 Episodic Other upper respiratory disease (11 sources) Allergic rhinitis due to pollen; Translations: [Allergic rhinitis due to pollen] 12-08-2023 Chronic Residual codes; unclassified (19 sources) Sleep apnea; Translations: [Sleep apnea, unspecified] [...] machines and devices] Chronic Residual codes; unclassified (8 sources) Dependence on continuous positive airway pressure [...] Spondylosis; intervertebral disc disorders; other back problems (16 sources) Low back pain; Translations: [Low back [...] Test Name Value Interpretation Reference Range Facility Glucose mean value [Mass/vol ume] in Blood Estimated from glycated hemoglobinon 03-15-2024 Average glucose Estimated from glycated hemoglobin (Bld) [Mass/Vol] 103 mg/dL [facility] - Hematology and Cell countson 03-15-2024 HbA1c (Bld) [Mass fraction] 5.2 % 4.5-6.2 [facility] Comment on above: ADA RECOMMENDED LIMI T 4.0 - 6.0ADA THERAPEUTIC TARGET < 7.0ACTION SUGGESTED> 7.0 Basophils Auto (Bld) [#/Vol] on 03-09-2024 Basophils (Bld) [#/Vol] 0.1 10 3/uL 0.0-0.1 [facility] Basophils/100 WBC Auto (Bld) on 03-09-2024 Basophils/100 WBC (Bld) 0.7 % 0.2-2.0 [facility] Eosinophils/100 WBC Auto (Bl d)on 03-09-2024 Eosinophils/100 WBC (Bld) 3.6 % 0.9-7.0 [facility] Erythrocyte distribution wid th Auto (RBC) [Ratio]on 03-09-2024 Erythrocyte distribution width (RBC) [Ratio] 12.7 % 11.0-15.0 [facility] Estimated glomerular filtrat ion rate (GFR) non- Americanon 03-09-2024 GFR/1.73 sq M.predicted among non-blacks MDRD (S/P/Bld) [Vol rate/Area] 49 mL/min/{1.73_m2} Low >=60 [facility] Globulin Calc (S) [Mass/Vol] on 03-09-2024 Globulin (S) [Mass/Vol] 3.3 g/dL [facility] Hematocrit Auto (Bld) [Volum e fraction]on 03-09-2024 Hematocrit (Bld) [Volume fraction] 38.6 % 36.0-48.0 [facility] Hemoglobin [Mass/volume] in Bloodon 03-09-2024 Hemoglobin (Bld) [Mass/Vol] 12.8 g/dL 12.0-16.0 [facility] Laboratory - Chemistry and C hemistry - challengeon 03-09-2024 Albumin [Mass/Vol] 3.7 g/dL 3.4-5.0 [facility] ALP [Catalytic activity/Vol] 63 U/L 46-116 [facility] ALT [Catalytic activity/Vol] 27 U/L 14-59 [facility] AST [Catalytic activity/Vol] 22 U/L 15-37 [facility] Bilirubin [Mass/Vol] 0.6 mg/dL 0.2-1.0 [facility] Bilirubin.direct [Mass/Vol] 0.2 mg/dL 0.0-0.2 [facility] Creatinine [Mass/Vol] 1.11 mg/dL High 0.55-1.02 [facility] GFR/1.73 sq M.predicted MDRD (S/P/Bld) [Vol rate/Area] 59 mL/min/{1.73_m2} Low >=60 [facility] Protein [Mass/Vol] 7.0 g/dL 6.4-8.2 [facility] - Hematology and Cell countson 03-09-2024 ESR (Bld) [Velocity] 48 mm/h High <=30 [facility] Immature granulocytes/100 WBC (Bld) 0.3 % 0.0-0.5 [facility] Leukocytes [#/volume] correc manju for nucleated erythrocytes in Blood by Automated counon 03-09-2024 WBC corrected for nucl RBC Auto (Bld) [#/Vol] 6.7 10 3/uL 4.0-11.0 [facility] Lymphocytes Auto (Bld) [#/Vo l]on 03-09-2024 Lymphocytes (Bld) [#/Vol] 1.7 10 3/uL 1.2-3.8 [facility] Lymphocytes/100 WBC Auto (Bl d)on 03-09-2024 Lymphocytes/100 WBC (Bld) 24.9 % 20.5-60.0 [facility] MCH Auto (RBC) [Entitic mass ]on 03-09-2024 MCH (RBC) [Entitic mass] 30.4 pg 26.7-34.0 [facility] MCHC Auto (RBC) [Mass/Vol]on 03-09-2024 MCHC (RBC) [Mass/Vol] 33.2 g/dL 29.9-35.2 [facility] MCV Auto (RBC) [Entitic vol] on 03-09-2024 MCV (RBC) [Entitic vol] 91.7 fL 81.0-99.0 [facility] Monocytes Auto (Bld) [#/Vol] on 03-09-2024 Monocytes (Bld) [#/Vol] 0.8 10 3/uL 0.3-0.8 [facility] Monocytes/100 WBC Auto (Bld) on 03-09-2024 Monocytes/100 WBC (Bld) 11.5 % 1.7-12.0 [facility] Neutrophils Auto (Bld) [#/Vo l]on 03-09-2024 Neutrophils (Bld) [#/Vol] 3.9 10 3/uL 1.4-6.5 [facility] Neutrophils/100 WBC Auto (Bl d)on 03-09-2024 Neutrophils/100 WBC (Bld) 59.0 % 43.0-75.0 [facility] No Panel Informationon 03-09 Eosinophils # (Auto) 0.2 10 3/uL 0.0-0.7 [facility] Immature Granulocyte # (Auto) 0.02 10 3/uL 0.00-0.03 [facility] Platelet mean volume Auto (B ld) [Entitic vol]on 03-09-2024 Platelet mean volume (Bld) [Entitic vol] 11.8 fL 9.5-13.5 [facility] Platelets Auto (Bld) [#/Vol] on 03-09-2024 Platelets (Bld) [#/Vol] 241 10 3/uL 150-450 [facility] RBC Auto (Bld) [#/Vol]on RBC (Bld) [#/Vol] 4.21 10 6/uL 4.20-5.40 [facility] Serum or plasma albumin/glob ulin mass ratioon 03-09-2024 Albumin/Globulin [Mass ratio] 1.1 {ratio} [facility] Activated partial thrombopla stin time (APTT).factor substitution in platelet poor plaon 01-11-2024 aPTT.factor substitution immediately after 1:4 addition of normal plasma Coag (PPP) [Time] TNP sec . [facility] Comment on above: Testing Not Indicate dThis test was developed and its performance characteristicsdetermined by [facility]. It has not been cleared or approvedby the [place] Food and Drug Administration. Activated partial thrombopla stin time (aPTT) in platelet poor plasma by coagulation aon 01-11-2024 aPTT Coag (PPP) [Time] 22.4 s Abnormal . [facility] Comment on above: This test has not be en validated for monitoringunfractionated heparin therapy. aPTT-based therapeuticranges for unfractionated heparin therapy have not beenestablished. Consider ordering Heparin anti-Xa(unfractionated).Reference Range:18 years and older: 22.9 - 30.2 Activated partial thrombopla stin time (aPTT) using hexagonal phase phospholipid in plon 01-11-2024 aPTT W excess hexagonal phase phospholipid Coag (PPP) [Time] 2 sec . [facility] Comment on above: This value is NEGATI VE.This is a qualitative assay and is therefore reported aspositive for lupus anticoagulant or negative. Thequantitative value is provided as an aid in diagnosis.Reference Range:0 - 11 Automated epithelial cells c ount in urine sediment (number/area)on 01-11-2024 Epithelial cells Auto (Urine sed) [#/Area] FEW #/LPF Abnormal NONE/RARE [facility] Automated urine sediment micki cium oxalate crystal count by microscopy (number/high powon 01-11-2024 Calcium oxalate crystals LM.HPF (Urine sed) [#/Area] FEW [facility] Automated urine specific gra vity by refractometryon 01-11-2024 Specific gravity Refractometry automated (U) [Rel density] >=1.030 Abnormal 1.005-1.025 [facility] Bacteria [Presence] in Urine by Automatedon 01-11-2024 Bacteria Auto Ql (U) NONE SEEN #/HPF NONE SEEN [facility] Basophils Auto (Bld) [#/Vol] on 01-11-2024 Basophils (Bld) [#/Vol] 0.0 10 3/uL 0.0-0.1 [facility] Basophils/100 WBC Auto (Bld) on 01-11-2024 Basophils/100 WBC (Bld) 0.5 % 0.2-2.0 [facility] Beta 2 glycoprotein 1 IgA Ab [Units/volume] in Serumon 01-11-2024 Beta 2 glycoprotein 1 IgA Qn (S) <10 MICHEAL . [facility] Comment on above: The reference interv al reflects a 3SD or 99th percentileinterval.Reference Range:Negative: <26 Beta 2 glycoprotein 1 IgG Ab [Units/volume] in Serumon 01-11-2024 Beta 2 glycoprotein 1 IgG Qn (S) <10 SGU . [facility] Comment on above: The reference interv al reflects a 3SD or 99th percentileinterval.Reference Range:Negative: <21 Beta 2 glycoprotein 1 IgM Ab [Units/volume] in Serumon 01-11-2024 Beta 2 glycoprotein 1 IgM Qn (S) <10 SMU . [facility] Comment on above: The reference interv al reflects a 3SD or 99th percentileinterval.Reference Range:Negative: <33 Bilirubin Auto test strip (U ) [Mass/Vol]on 01-11-2024 Bilirubin (U) [Mass/Vol] SMALL Abnormal NEGATIVE [facility] Cardiolipin IgG Ab [Units/vo lume] in Serum by Immunoassayon 01-11-2024 Cardiolipin IgG IA Qn (S) <10 GPL . [facility] Comment on above: Reference Range:Nega tive: <15Indeterminate: 15 - 20Low to medium positive: >20 - 80High positive: >80 Cardiolipin IgM Ab [Units/vo lume] in Serum by Immunoassayon 01-11-2024 Cardiolipin IgM IA Qn (S) <10 MPL . [facility] Comment on above: Reference Range:Nega tive: <13Indeterminate: 13 - 20Low to medium positive: >20 - 80High positive: >80 Casts typing in urine sedime nt by light microscopyon 01-11-2024 Casts LM Nom (Urine sed) NONE SEEN #/LPF NONE SEEN [facility] Centriole Ab [Titer] in Seru m by Immunofluorescenceon 01-11-2024 Centriole Ab IF (S) [Titer] TNP . [facility] Centromere Ab [Titer] in Ser um by Immunofluorescenceon 01-11-2024 Centromere Ab IF (S) [Titer] TNP . [facility] Color Auto (U)on 01-11-2024 Color (U) DK. YELLOW YELLOW [facility] Dilute Naveen's viper venom time (DRVVT) confirmatory teston 01-11-2024 dRVVT actual/normal Coag (PPP) [Relative time] TNP sec . [facility] Comment on above: Testing Not Indicate d Eosinophils/100 WBC Auto (Bl d)on 01-11-2024 Eosinophils/100 WBC (Bld) 4.6 % 0.9-7.0 [facility] Erythrocyte distribution wid th Auto (RBC) [Ratio]on 01-11-2024 Erythrocyte distribution width (RBC) [Ratio] 13.2 % 11.0-15.0 [facility] Estimated glomerular filtrat ion rate (GFR) non- Americanon 01-11-2024 GFR/1.73 sq M.predicted among non-blacks MDRD (S/P/Bld) [Vol rate/Area] 52 mL/min/{1.73_m2} Low >=60 [facility] Globulin Calc (S) [Mass/Vol] on 01-11-2024 Globulin (S) [Mass/Vol] 3.2 g/dL [facility] Glucose [Mass/volume] in Uri ne by Test stripon 01-11-2024 Glucose Test strip (U) [Mass/Vol] Negative NEGATIVE [facility] Glucose mean value [Mass/vol ume] in Blood Estimated from glycated hemoglobinon 01-11-2024 Average glucose Estimated from glycated hemoglobin (Bld) [Mass/Vol] 117 mg/dL [facility] Hematocrit Auto (Bld) [Volum e fraction]on 01-11-2024 Hematocrit (Bld) [Volume fraction] 39.2 % 36.0-48.0 [facility] Hemoglobin [Mass/volume] in Bloodon 01-11-2024 Hemoglobin (Bld) [Mass/Vol] 12.8 g/dL 12.0-16.0 [facility] INR in Platelet poor plasma by Coagulation assayon 01-11-2024 INR Coag (PPP) [Relative time] 1.0 {INR} . [facility] Comment on above: Reference Range:>1 m onth: 0.9 - 1.2 Interpretation of screening lupus anticoagulant assayon 01-11-2024 Lupus anticoagulant three screening tests W Reflex Coag (PPP) [Interp] Comment . [facility] Comment on above: A lupus anticoagulan t is not detected. All antiphospholipidantibodies evaluated are normal. As antibody titers mayfluctuate with time, repeat testing may be indicated.Please contact [facility] if furtherclarification is needed.Performed at: [facility] [place] [address] [id number] Director: Simon Izquierdo MD, Phone: [phone] Ketones Auto test strip (U) [Mass/Vol]on 01-11-2024 Ketones (U) [Mass/Vol] TRACE mg/dL Abnormal NEGATIVE [facility] Laboratory - Chemistry and C hemistry - challengeon 01-11-2024 Albumin [Mass/Vol] 3.0 g/dL Low 3.4-5.0 [facility] ALP [Catalytic activity/Vol] 67 U/L 46-116 [facility] ALT [Catalytic activity/Vol] 26 U/L 14-59 [facility] AST [Catalytic activity/Vol] 18 U/L 15-37 [facility] Bilirubin [Mass/Vol] 0.4 mg/dL 0.2-1.0 [facility] Bilirubin.direct [Mass/Vol] 0.1 mg/dL 0.0-0.2 [facility] Creatinine [Mass/Vol] 1.05 mg/dL High 0.55-1.02 [facility] GFR/1.73 sq M.predicted MDRD (S/P/Bld) [Vol rate/Area] mL/min/{1.73_m2} >=60 [facility] Protein [Mass/Vol] 6.2 g/dL Low 6.4-8.2 [facility] [facility] - Hematology and Cell countson 01-11-2024 ESR (Bld) [Velocity] 6 mm/h <=30 [facility] HbA1c (Bld) [Mass fraction] 5.7 % 4.5-6.2 [facility] Comment on above: ADA RECOMMENDED LIMI T 4.0 - 6.0ADA THERAPEUTIC TARGET < 7.0ACTION SUGGESTED> 7.0 Immature granulocytes/100 WBC (Bld) 0.5 % 0.0-0.5 [facility] Leukocytes [#/area] in Urine sediment by Automated counton 01-11-2024 WBC Auto (Urine sed) [#/Area] NONE SEEN #/HPF 0-2 [facility] Leukocytes [#/area] in Urine sediment by Microscopy high power fieldon 01-11-2024 WBC LM.HPF (Urine sed) [#/Area] 0-2 #/HPF Abnormal NONE SEEN [facility] Leukocytes [#/volume] correc manju for nucleated erythrocytes in Blood by Automated counon 01-11-2024 WBC corrected for nucl RBC Auto (Bld) [#/Vol] 8.3 10 3/uL 4.0-11.0 [facility] Lymphocytes Auto (Bld) [#/Vo l]on 01-11-2024 Lymphocytes (Bld) [#/Vol] 3.2 10 3/uL 1.2-3.8 [facility] Lymphocytes/100 WBC Auto (Bl d)on 01-11-2024 Lymphocytes/100 WBC (Bld) 38.0 % 20.5-60.0 [facility] MCH Auto (RBC) [Entitic mass ]on 01-11-2024 MCH (RBC) [Entitic mass] 30.3 pg 26.7-34.0 [facility] MCHC Auto (RBC) [Mass/Vol]on 01-11-2024 MCHC (RBC) [Mass/Vol] 32.7 g/dL 29.9-35.2 [facility] MCV Auto (RBC) [Entitic vol] on 01-11-2024 MCV (RBC) [Entitic vol] 92.7 fL 81.0-99.0 [facility] Midbody Ab [Titer] in Serum by Immunofluorescenceon 01-11-2024 Midbody Ab IF (S) [Titer] TNP . [facility] Mitotic spindle apparatus Ab [Titer] in Serum or Plasma by Immunofluorescenceon 01-11-2024 Mitotic spindle apparatus Ab IF [Titer] TNP . [facility] Monocytes Auto (Bld) [#/Vol] on 01-11-2024 Monocytes (Bld) [#/Vol] 1.0 10 3/uL High 0.3-0.8 [facility] Monocytes/100 WBC Auto (Bld) on 01-11-2024 Monocytes/100 WBC (Bld) 12.3 % High 1.7-12.0 [facility] Mucus LM Ql (Urine sed)on Mucus Ql (Urine sed) NONE SEEN NONE SEEN [facility] Neutrophils Auto (Bld) [#/Vo l]on 01-11-2024 Neutrophils (Bld) [#/Vol] 3.7 10 3/uL 1.4-6.5 [facility] Neutrophils/100 WBC Auto (Bl d)on 01-11-2024 Neutrophils/100 WBC (Bld) 44.1 % 43.0-75.0 [facility] No Panel Informationon 01-10 Anti-Double Strand DNA Antibody 1 [IU]/mL 0-9 [facility] Comment on above: Negative <5 Equivoca l 5 - 9 Positive >9Performed at: - Lab[address] [id number] Director: Matty Diaz PhD, Phone: [phone] Anti-Nuclear Antibody Comment 2 Comment . [facility] Comment on above: Pattern Potential Di sease Association Homogeneous Systemic Lupus Erythematosus, Drug Induced Systemic Lupus Erythematosus, Chronic Autoimmune hepatitis, Juvenile Idiopathic Arthritis Speckled Sjogren Syndrome, Systemic Lupus Erythematosus, Subacute Cutaneous Lupus, Lupus, Congenital Heart Block, Mixed Connective Tissue Disease, Scleroderma-diffuse, Scleroderma-Autoimmune Myositis Overlap Syndrome, Systemic Lupus Zcqnbnefplvwa-Uyhtvbdrucu-Zusulpbifu Myositis Overlap Syndrome, Systemic Autoimmune Rheumatic Disease, [...] Cytopenias, Linear Scleroderma, Antiphospholipid Syndrome Performed at: [email or web address] [place], [place] [id number] Director: Matty Diaz PhD, Phone: [phone] C-Reactive Protein, Quantitative <0.50 mg/dL <=0.50 [facility] Dilute Naveen Viper Venom Screen 32.2 sec . [facility] Comment on above: Reference Range:<= 4 7.0 Eosinophils # (Auto) 0.4 10 3/uL 0.0-0.7 [facility] Immature Granulocyte # (Auto) 0.04 10 3/uL High 0.00-0.03 [facility] Lupus Anticoag DRVVT Screen Ratio TNP ratio . [facility] Comment on above: Testing Not Indicate d Miscellaneous Test COMMENT . [facility] Comment on above: Test Ordered: [id number] Ramos AntibodiesSmith Antibodies 1.5 [H ] AI CB Reference Range: 0.0-0.9Performed at: [facility] [employer] [id number] Director: Matty Diaz PhD, Phone: [phone] Platelet Neutralization 0.5 sec . [facility] Comment on above: Reference Range:0.0 - 3.0This test was developed and its performance characteristicsdetermined by [employer]. It has not been cleared or approvedby the Food and Drug Administration. Total Complement (CH50) >60 U/mL >41 [facility] Comment on above: Age Male Female [...] to determine out of range values.Performed at: [facility] [employer] [id number] Director: Matty Diaz PhD, Phone: [phone] Nuclear dots nuclear Ab farzad maurice [Titer] in Serum by Immunofluorescenceon 01-11-2024 Nuclear dots nuclear Ab pattern IF (S) [Titer] TN . [facility] Nuclear membrane pores nucle ar Ab pattern [Titer] in Serum by Immunofluorescenceon 01-11-2024 Nuclear membrane pores nuclear Ab pattern IF (S) [Titer] TN . [facility] PCNA extractable nuclear Ab [Titer] in Serum by Immunofluorescenceon 01-11-2024 PCNA extractable nuclear Ab IF (S) [Titer] TNP . [facility] Platelet mean volume Auto (B ld) [Entitic vol]on 01-11-2024 Platelet mean volume (Bld) [Entitic vol] 11.7 fL 9.5-13.5 [facility] Platelet poor plasma factor substitution activated partial thromboplastin time (aPTT)on 01-11-2024 aPTT.factor substitution 1 Hr post incubation with normal plasma Coag (PPP) [Time] TNP sec . [facility] Comment on above: Testing Not Indicate dThis test was developed and its performance characteristicsdetermined by [employer]. It has not been cleared or approvedby the [place] Food and Drug Administration. Platelets Auto (Bld) [#/Vol] on 01-11-2024 Platelets (Bld) [#/Vol] 269 10 3/uL 150-450 [facility] Protein Auto test strip (U) [Mass/Vol]on 01-11-2024 Protein (U) [Mass/Vol] TRACE mg/dL NEG/TRACE [facility] Prothrombin time (PT)on 12-14 PT Coag (PPP) [Time] 10.9 s . [facility] Comment on above: Reference Range:18 y ears and older: 9.1 - 12.0 RBC Auto (Bld) [#/Vol]on RBC (Bld) [#/Vol] 4.23 10 6/uL 4.20-5.40 [facility] Serum homogeneous pattern an tinuclear antibody (VAL) titeron 01-11-2024 Homogenous nuclear Ab pattern (S) [Titer] 1:160 Abnormal . [facility] Comment on above: ICAP nomenclature: A C-1 Serum nuclear antibody titer on 01-11-2024 Nuclear Ab (S) [Titer] Positive Abnormal . [facility] Comment on above: Negative <1:80 Borde rline 1:80 Positive >1:80 Serum nucleolar pattern anti nuclear antibody (VAL) titeron 01-11-2024 Nucleolar nuclear Ab pattern (S) [Titer] TNP . [facility] Serum or plasma albumin/glob ulin mass ratioon 01-11-2024 Albumin/Globulin [Mass ratio] 0.9 {ratio} [facility] Serum or plasma complement C 3 measurement (mass/volume)on 01-11-2024 Complement C3 [Mass/Vol] 99 mg/dL 82-167 [facility] Serum or plasma complement C 4 measurement (mass/volume)on 01-11-2024 Complement C4 [Mass/Vol] 19 mg/dL 12-38 [facility] Comment on above: Performed at: [facility] [place], [place] [id number] Director: Matty Diaz PhD, Phone: [phone] Serum or plasma cyclic adeno sine monophosphate measurement (moles/volume)on 01-11-2024 Adenosine monophosphate.cyclic [Moles/Vol] >250 units Abnormal 0-19 [facility] Comment on above: Negative <20 Weak po sitive 20 - 39 Moderate positive 40 - 59 Strong positive >59Performed at: [employer] [id number] [place] [id number] Director: Matty Diaz PhD, Phone: [phone] Serum or plasma rheumatoid f actor measurement (units/volume)on 01-11-2024 Rheumatoid factor Qn 31.0 [IU]/mL Abnormal <14.0 [facility] Comment on above: Performed at: [facility] [place], [place] [id number] Director: Matty Diaz PhD, Phone: [phone] Serum speckled pattern antin uclear antibody (VAL) titeron 01-11-2024 Speckled nuclear Ab pattern (S) [Titer] TNP . [facility] Specific gravity Auto test s trip (U) [Rel density]on 01-11-2024 Specific gravity (U) [Rel density] CLEAR CLEAR [facility] TT plason 01-11-2024 Thrombin time Coag (PPP) [Time] 21.2 sec . [facility] Comment on above: Reference Range:0.0 - 23.0 Urine hemoglobin detection b y automated test stripon 01-11-2024 Hemoglobin Auto test strip Ql (U) Negative NEGATIVE [facility] Urine nitrite detection by a utomated test stripon 01-11-2024 Nitrite Auto test strip Ql (U) Negative NEGATIVE [facility] Urine sediment crystal ident ification by light microscopyon 01-11-2024 Crystals LM Nom (Urine sed) Seen #/HPF Abnormal None Seen [facility] Urobilinogen Auto test strip (U) [Mass/Vol]on 01-11-2024 Urobilinogen Qn (U) 1.0 {Charlotte'U}/dL 0.2-1.0 [facility] pH Auto test strip (U)on pH (U) 6.0 [pH] 5.0-9.0 [facility] Basophils Auto (Bld) [#/Vol] on 11-16-2023 Basophils (Bld) [#/Vol] 0.1 10 3/uL 0.0-0.1 [facility] Basophils/100 WBC Auto (Bld) on 11-16-2023 Basophils/100 WBC (Bld) 0.9 % 0.2-2.0 [facility] Eosinophils/100 WBC Auto (Bl d)on 11-16-2023 Eosinophils/100 WBC (Bld) 3.7 % 0.9-7.0 [facility] Erythrocyte distribution wid th Auto (RBC) [Ratio]on 11-16-2023 Erythrocyte distribution width (RBC) [Ratio] 13.1 % 11.0-15.0 [facility] Estimated glomerular filtrat ion rate (GFR) non- Americanon 11-16-2023 GFR/1.73 sq M.predicted among non-blacks MDRD (S/P/Bld) [Vol rate/Area] 47 mL/min/{1.73_m2} >=60 [facility] Globulin Calc (S) [Mass/Vol] on 11-16-2023 Globulin (S) [Mass/Vol] 3.4 g/dL [facility] Hematocrit Auto (Bld) [Volum e fraction]on 11-16-2023 Hematocrit (Bld) [Volume fraction] 39.1 % 36.0-48.0 [facility] Hemoglobin [Mass/volume] in Bloodon 11-16-2023 Hemoglobin (Bld) [Mass/Vol] 12.7 g/dL 12.0-16.0 [facility] Laboratory - Chemistry and C hemistry - challengeon 11-16-2023 Albumin [Mass/Vol] 3.2 g/dL 3.4-5.0 [facility] ALP [Catalytic activity/Vol] 61 U/L 46-116 [facility] ALT [Catalytic activity/Vol] 27 U/L 14-59 [facility] AST [Catalytic activity/Vol] 22 U/L 15-37 [facility] Bilirubin [Mass/Vol] 0.4 mg/dL 0.2-1.0 [facility] Bilirubin.direct [Mass/Vol] 0.1 mg/dL 0.0-0.2 [facility] Creatinine [Mass/Vol] 1.14 mg/dL 0.55-1.02 [facility] GFR/1.73 sq M.predicted MDRD (S/P/Bld) [Vol rate/Area] 57 mL/min/{1.73_m2} >=60 [facility] Protein [Mass/Vol] 6.6 g/dL 6.4-8.2 [facility] Laboratory - Hematology and Cell countson 11-16-2023 ESR (Bld) [Velocity] 6 mm/h <=30 [facility] Immature granulocytes/100 WBC (Bld) 0.0 % 0.0-0.5 [facility] Leukocytes [#/volume] correc manju for nucleated erythrocytes in Blood by Automated counon 11-16-2023 WBC corrected for nucl RBC Auto (Bld) [#/Vol] 5.7 10 3/uL 4.0-11.0 [facility] Lymphocytes Auto (Bld) [#/Vo l]on 11-16-2023 Lymphocytes (Bld) [#/Vol] 1.7 10 3/uL 1.2-3.8 [facility] Lymphocytes/100 WBC Auto (Bl d)on 11-16-2023 Lymphocytes/100 WBC (Bld) 29.6 % 20.5-60.0 [facility] MCH Auto (RBC) [Entitic mass ]on 11-16-2023 MCH (RBC) [Entitic mass] 29.9 pg 26.7-34.0 [facility] MCHC Auto (RBC) [Mass/Vol]on 11-16-2023 MCHC (RBC) [Mass/Vol] 32.5 g/dL 29.9-35.2 [facility] MCV Auto (RBC) [Entitic vol] on 11-16-2023 MCV (RBC) [Entitic vol] 92.0 fL 81.0-99.0 [facility] Monocytes Auto (Bld) [#/Vol] on 11-16-2023 Monocytes (Bld) [#/Vol] 0.5 10 3/uL 0.3-0.8 [facility] Monocytes/100 WBC Auto (Bld) on 11-16-2023 Monocytes/100 WBC (Bld) 8.5 % 1.7-12.0 [facility] Neutrophils Auto (Bld) [#/Vo l]on 11-16-2023 Neutrophils (Bld) [#/Vol] 3.3 10 3/uL 1.4-6.5 [facility] Neutrophils/100 WBC Auto (Bl d)on 11-16-2023 Neutrophils/100 WBC (Bld) 57.3 % 43.0-75.0 [facility] No Panel Informationon 11-15 Eosinophils # (Auto) 0.2 10 3/uL 0.0-0.7 [facility] Immature Granulocyte # (Auto) 0.00 10 3/uL 0.00-0.03 [facility] Platelet mean volume Auto (B ld) [Entitic vol]on 11-16-2023 Platelet mean volume (Bld) [Entitic vol] 11.7 fL 9.5-13.5 [facility] Platelets Auto (Bld) [#/Vol] on 11-16-2023 Platelets (Bld) [#/Vol] 228 10 3/uL 150-450 [facility] RBC Auto (Bld) [#/Vol]on RBC (Bld) [#/Vol] 4.25 10 6/uL 4.20-5.40 [facility] Serum or plasma albumin/glob ulin mass ratioon 11-16-2023 Albumin/Globulin [Mass ratio] 0.9 {ratio} [facility] XR wrist LT min 3V*on 2022 XR wrist LT min 3V* [facility] [employer] Other XR wrist LT min 3V* [facility] [employer] Other XR wrist LT min 3V* [address] [employer] Other XR wrist LT min 3V* [place] [address] [employer] Other XR wrist LT min 3V* XRay Report [place] [employer] Other XR wrist LT min 3V* Signed [employer] Other XR wrist LT min 3V* Patient: Reba Gregory MR#: [id number] [employer] Other XR wrist LT min 3V* : 1955 Acct:[id number] [employer] Other XR wrist LT min 3V* Age/Sex: 67 / F ADM Date: 03/03/23 [employer] Other XR wrist LT min 3V* Loc: [facility] Room: Type : [facility] [employer] Other XR wrist LT min 3V* Attending Dr: Kim Munson MD [employer] Other XR wrist LT min 3V* Copies to: Kiana Munson MD [employer] Other XR wrist LT min 3V* Ordering Provider: Kiana Munson MD [employer] Other XR wrist LT min 3V* Date of Service: 03/03/23 [employer] Other XR wrist LT min 3V* XR/XR wrist LT min 3V*: Wrist arthritis;Mass of left hand [employer] Other XR wrist LT min 3V* LEFT WRIST - 4 views [employer] Other XR wrist LT min 3V* CLINICAL HISTORY: Le ft wrist pain for months. Possible cyst ulnar aspect of left hand. [employer] Other XR wrist LT min 3V* COMPARISON: None [employer] Other XR wrist LT min 3V* FINDINGS: [employer] Other XR wrist LT min 3V* No focal soft tissue abnormality is seen. No acute bony process is noted. There is widening of the [employer] Other XR wrist LT min 3V* scapholunate space w ith SLAC wrist deformity. Cystic changes are noted involving the capitate and [employer] Other XR wrist LT min 3V* hamate bones. No bon y erosions. Moderate degenerative changes are noted involving the CMC joint of [employer] Other XR wrist LT min 3V* the thumb. [employer] Other XR wrist LT min 3V* X R/XR wrist LT min 3V* [employer] Other XR wrist LT min 3V* IMPRESSION: [employer] 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 NO ACUTE BONY PROCESS. [employer] Other XR wrist LT min 3V* DEGENERATIVE CHANGES , WORST AT THE CMC JOINT OF THE THUMB. [employer] Other XR wrist LT min 3V* Impression dictated by: Dave Espana Jr., D.OShannon03/03/2023 11:50 AM [employer] Other XR wrist LT min 3V* Dictation Location: [place] [address] [employer] Other XR wrist LT min 3V* Transcribed By: TANYA 03/03/23 1150 [employer] Other XR wrist LT min 3V* Dictated By: Dave Espana Jr, DO 03/03/23 1147 [facility] [employer] Other XR wrist LT min 3V* Signed By: [facility] [employer] Other XR wrist LT min 3V* 03/03/23 1150 [facility] [employer] Other XR wrist LT min 3V* [place] [address] XRay Report Signed Patient: Reba Gregory MR#: [id number] : 1955 Acct:[id number] Age/Sex: 67 / F ADM Date: 03/03/23 Loc: [facility] Room: Type: [facility] Attending Dr: Kiana Munson MD Copies to: [...] THUMB. Impression dictated by: Dave Espana Jr., D.O.03/03/2023 11:50 AM Dictation Location: [facility]12 Transcribed By: [facility] 03/03/23 1150 Dictated By: Dave Espana Jr, 03/03/23 1147 Signed By: 03/03/23 1150 Normal [facility] XR knee LT 2Von 02-17-2023 XR knee LT 2V [facility] [employer] Other XR knee LT 2V [facility] [employer] Other XR knee LT 2V 1111 [facility] [employer] Other XR knee LT 2V [address] [employer] Other XR knee LT 2V XRay Report [facility] [employer] Other XR knee LT 2V Signed [employer] Other XR knee LT 2V Patient: Reba Gregory MR#: [id number] [employer] Other XR knee LT 2V : 1955 Acct:[id number] [employer] Other XR knee LT 2V Age/Sex: 67 / F ADM Date: 02/17/23 [employer] Other XR knee LT 2V Loc: [facility] Room: Type : [facility] [employer] Other XR knee LT 2V Attending Dr: Nabor Nelson II, MD [employer] Other XR knee LT 2V Copies to: Nabor Nelson MD [employer] Other XR knee LT 2V Ordering Provider: Ragini Nelson MD [employer] Other XR knee LT 2V Date of Service: 02/17/23 [employer] Other XR knee LT 2V XR/XR knee LT 2V: Aftercare following joint replacement surgery;[facility] [employer] Other XR knee LT 2V of le [employer] Other XR knee LT 2V [address] ain film [employer] Other XR knee LT 2V COMPARISON: 05/28/2022 [employer] Other XR knee LT 2V HISTORY: Status post left total knee arthroplasty [employer] Other XR knee LT 2V ACUTE FINDINGS: None [employer] Other XR knee LT 2V DEGENERATIVE CHANGE: Unremarkable [employer] Other XR knee LT 2V SOFT TISSUE FINDINGS : Unremarkable [employer] Other XR knee LT 2V JOINT EFFUSION: None [employer] Other XR knee LT 2V POSTOP CHANGES: No hardware failure or loosening. [employer] Other XR knee LT 2V BONE MINERALIZATION: Adequate [employer] Other XR knee LT 2V X R/XR knee LT 2V [employer] Other XR knee LT 2V IMPRESSION: Stable l eft knee arthroplasty [employer] Other XR knee LT 2V Impression dictated by: Rome Guerra M.D.02/17/2023 1:58 PM [employer] Other XR knee LT 2V Dictation Location: [place] [address] [employer] Other XR knee LT 2V Transcribed By: PWS 02/17/23 [facility] [employer] Other XR knee LT 2V Dictated By: Phuc Guerra DO 02/17/23 [facility] [employer] Other XR knee LT 2V Signed By: [employer] Other XR knee LT 2V 02/17/23 [facility] [employer] Other XR knee LT 2V [facility] [place] [address] [place] [address] XRay Report Signed Patient: Reba Gregory MR#: [id number] : 1955 Acct:[id number] Age/Sex: 67 / F ADM Date: 02/17/23 Loc: [facility] Room: Type: [facility] Attending Dr: Nabor Nelson II, MD Copies [...] Rome Guerra M.D.02/17/2023 1:58 PM Dictation Location: [place] [address] Transcribed By: [facility] 02/17/23 1358 Dictated By: Rome Guerra DO 02/17/23 1357 Signed By: 02/17/23 1358 Normal [facility] Automated epithelial cells c ount in urine sediment (number/area)Ordered By: Nabor Wilson on 02-03-2023 Epithelial cells Auto (Urine sed) [#/Area] 0-1 [HPF] 0-2 [facility] Automated erythrocytes count in urine sediment (number/area)Ordered By: Nabor Wlison on 02-03-2023 RBC Auto (Urine sed) [#/Area] 0-1 [HPF] 0-4 [facility] Automated leukocytes count i n urine sediment (number/area)Ordered By: Nabor Wilson on 02-03-2023 WBC Auto (Urine sed) [#/Area] 0-1 [HPF] 0-4 [facility] Automated urine hyaline cast s count (number/volume)Ordered By: Nabor Wilson on 02-03-2023 Hyaline casts Auto (U) [#/Vol] None seen [LPF] 0-1 [facility] Bilirubin Test strip Ql (U)O rdered By: Nabor Wilson on 02-03-2023 Bilirubin Ql (U) Negative Negative [facility] Calcium [Mass/volume] in 24 hour UrineOrdered By: Nabor Wilson on 02-03-2023 Calcium (24H U) [Mass/Vol] 1.1 mg/dL Not Estab. [facility] Calcium/Creatinine [Mass Rat io] in UrineOrdered By: Nabor Wilson on 02-03-2023 Calcium/Creatinine (U) [Mass ratio] 24 mg/g creat [address] [place] [address] Comment on above: Performed at: [facility] [employer] [id number] Director: Matty Diaz PhD, Phone: [phone] Color Auto (U)Ordered By: Anne Wilson on 02-03-2023 Color (U) Yellow Yellow [facility] Creatinine [Mass/volume] in UrineOrdered By: Nabor Wilson on 02-03-2023 Creatinine (U) [Mass/Vol] 46.2 mg/dL Not Estab. [facility] Ketones Auto test strip (U) [Mass/Vol]Ordered By: Nabor Wilson on 02-03-2023 Ketones (U) [Mass/Vol] Negative Negative [facility] Nitrite Test strip Ql (U)Ord ered By: Nabor Wilson on 02-03-2023 Nitrite Ql (U) Negative Negative [facility] Protein Auto test strip (U) [Mass/Vol]Ordered By: Nabor Wilson on 02-03-2023 Protein (U) [Mass/Vol] Negative Negative [facility] Specific gravity Auto test s trip (U) [Rel density]Ordered By: Nabor Wilson on 02-03-2023 Specific gravity (U) [Rel density] 1.010 1.001-1.030 [facility] Urine bacteria detection by automated methodOrdered By: Nabor Wilson on 02-03-2023 Bacteria Auto Ql (U) None seen None Seen [facility] Urine clarity by refractomet ry automatedOrdered By: Nabor Wilson on 02-03-2023 Clarity Refractometry automated (U) Clear Clear [facility] Urine glucose measurement by automated test strip (mass/volume)Ordered By: Nabor Wilson on 02-03-2023 Glucose Auto test strip (U) [Mass/Vol] Normal mg/dL Normal [facility] Urine hemoglobin detection b y automated test stripOrdered By: Nabor Wilson on 02-03-2023 Hemoglobin Auto test strip Ql (U) Negative Negative [facility] Urine leukocyte esterase det ection by automated test stripOrdered By: Nabor Wilson on 02-03-2023 Leukocyte esterase Auto test strip Ql (U) Negative Negative [facility] Urobilinogen Auto test strip (U) [Mass/Vol]Ordered By: Nabor Wilson on 02-03-2023 Urobilinogen (U) [Mass/Vol] Normal mg/dL Normal [facility] pH Auto test strip (U)Ordere d By: Nabor Wilson on 02-03-2023 pH (U) 5.5 [pH] 5.0-9.0 [facility] C3 and C4 COMPLEMENTon 01-22 Complement C3, Serum 147 mg/dL Normal 82-167 [facility] Comment on above: Performed By: #### C SUITE #### [facility] [address] [place] [address] Dr. Agueda Wiley Complement C4, Serum 29 mg/dL Normal 12-38 [facility] Comment on above: Performed By: #### C SUITE #### [facility] [address] [place] [address] Dr. Agueda Wiley CBC AUTO DIFFon 01-21-2023 BASO # 0.1 103/ul Normal 0.0-0.1 [facility] Comment on above: Performed By: #### C MIKKI LIVER #### [facility] [address] [place] [address] Dr. Agueda Wiley Basophils/100 WBC (Bld) 0.6 % Normal 0.2-2.0 [facility] Comment on above: Performed By: #### C MIKKI, LIVER #### [facility] [address] [place] [address] Dr. Agueda Wiley EO # 0.2 103/ul Normal 0.0-0.7 [facility] Comment on above: Performed By: #### C MIKKI, LIVER #### [facility] [address] [place] [address] Dr. Agueda Wiley Eosinophils/100 WBC (Bld) 1.7 % Normal 0.9-7.0 [facility] Comment on above: Performed By: #### C MIKKI, LIVER #### [facility] Laboratory [address] [place] [address] Dr. Agueda Wiley Erythrocyte distribution width (RBC) [Ratio] 12.4 % Normal 11.0-15.0 [facility] Comment on above: Performed By: #### C MIKKI, LIVER #### [facility] Laboratory [address] [place] [address] Dr. Agueda Wiley Hematocrit (Bld) [Volume fraction] 44.0 % Normal 36.0-48.0 [facility] Comment on above: Performed By: #### C MIKKI, LIVER #### [facility] [address] [place] [address] Dr. Agueda Wiley Hemoglobin (Bld) [Mass/Vol] 14.2 g/dL Normal 12.0-16.0 [facility] Comment on above: Performed By: #### C MIKKI, LIVER #### [facility] [address] [place] [address] Dr. Agueda Wiley IG # 0.03 10e3/ul Normal 0.00-0.03 [facility] Comment on above: Performed By: #### C MIKKI, LIVER #### [facility] [address] [place] [address] Dr. Agueda Wiley IG % 0.3 % Normal 0.0-0.5 [facility] Comment on above: Performed By: #### C MIKKI, LIVER #### [facility] [address] [place] [address] Dr. Agueda Wiley LYMPH # 2.2 103/ul Normal 1.2-3.8 [facility] Comment on above: Performed By: #### C MIKKI, LIVER #### [facility] [address] [place] [address] Dr. Agueda Wiley Lymphocytes/100 WBC (Bld) 21.1 % Normal 20.5-60.0 [facility] Comment on above: Performed By: #### C MIKKI, LIVER #### [facility] [address] [place] [address] Dr. Agueda Wiley MANUAL DIFF REQ NO Normal [facility] Comment on above: Performed By: #### C MIKKI, LIVER #### [facility] [address] [address] [address] Agueda Wiley MCH (RBC) [Entitic mass] 29.8 pg Normal 26.7-34.0 [facility] Comment on above: Performed By: #### C MIKKI, LIVER #### [facility] [address] [place] [address] Dr. Agueda Wiley MCHC (RBC) [Mass/Vol] 32.3 g/dL Normal 29.9-35.2 [facility] Comment on above: Performed By: #### C MIKKI, LIVER #### [facility] [address] [place] [address] Dr. Agueda Wiley MCV (RBC) [Entitic vol] 92.2 fL Normal 81.0-99.0 [facility] Comment on above: Performed By: #### C MIKKI, LIVER #### [facility] [address] [place] [address] Dr. Agueda Wiley MONO # 1.0 103/ul Critically high 0.3-0.8 [facility] Comment on above: Performed By: #### C MIKKI, LIVER #### [facility] [address] [place] [address] Dr. Agueda Wiley Monocytes/100 WBC (Bld) 9.2 % Normal 1.7-12.0 [facility] Comment on above: Performed By: #### C MIKKI, LIVER #### [facility] [address] [place] [address] Dr. Agueda Wiley NEUT # 7.0 103/ul Critically high 1.4-6.5 [facility] Comment on above: Performed By: #### C MIKKI, LIVER #### [facility] [address] [place] [address] Dr. Agueda Wiley Neutrophils/100 WBC (Bld) 67.1 % Normal 43.0-75.0 [facility] Comment on above: Performed By: #### C MIKKI, LIVER #### [facility] [address] [place] [address] Dr. Agueda Wiley Platelet mean volume (Bld) [Entitic vol] 11.6 fL Normal 9.5-13.5 [facility] Comment on above: Performed By: #### C MIKKI, LIVER #### [facility] [address] [place] [address] Dr. Agueda Wiley PLT 289 103/ul Normal 150-450 [facility] Comment on above: Performed By: #### C MIKKI, LIVER #### [facility] [address] [place] [address] Dr. Agueda Wiley RBC 4.77 106/ul Normal 4.20-5.40 [facility] Comment on above: Performed By: #### C MIKKI, LIVER #### [facility] [address] [place] [address] Dr. Agueda Wiley WBC 10.5 103/ul Normal 4.0-11.0 [facility] Comment on above: Performed By: #### C MIKKI, LIVER #### [facility] [address] [place] [address] Dr. Agueda Wiley CREATININEon 01-21-2023 Creatinine [Mass/Vol] 1.19 mg/dL Critically high 0.55-1.02 [facility] Comment on above: Performed By: #### C MIKKI, LIVER, CRP #### [facility] [address] [place] [address] Dr. Agueda Wiley EGFR-AF SOMALI 55 mL/min/1.73m2 Critically low >=60 [facility] Comment on above: Performed By: #### C MIKKI, LIVER, CRP #### [facility] [address] [place] [address] Dr. Agueda Wiley EGFR-NON AF SOMALI 45 mL/min/1.73m2 Critically low >=60 [facility] Comment on above: Performed By: #### C MIKKI, LIVER, CRP #### [facility] [address] [place] [address] Dr. Agueda Wiley CRPon 01-21-2023 CRP [Mass/Vol] mg/L Normal <=1.0 [facility] Comment on above: Performed By: #### C MIKKI, LIVER, CRP #### [facility] [address] [address] [address] Agueda Wiley LIVER PROFILEon 01-21-2023 Albumin [Mass/Vol] 3.5 g/dL Normal 3.4-5.0 [facility] Comment on above: Performed By: #### C MIKKI, LIVER, CRP #### [facility] [address] [address] [address] Agueda Wiley Albumin/Globulin [Mass ratio] 0.8 {ratio} Normal [facility] Comment on above: Performed By: #### C MIKKI, LIVER, CRP #### [facility] [address] [address] [address] Agueda Wiley ALP [Catalytic activity/Vol] 87 U/L Normal 46-116 [facility] Comment on above: Performed By: #### C MIKKI, LIVER, CRP #### [facility] [address] [address] [address] Agueda Wiley ALT [Catalytic activity/Vol] 33 U/L Normal 14-59 [facility] Comment on above: Performed By: #### C MIKKI, LIVER, CRP #### [facility] [address] [address] [address] Agueda Wiley AST [Catalytic activity/Vol] 22 U/L Normal 15-37 [facility] Comment on above: Performed By: #### C MIKKI, LIVER, CRP #### [facility] [address] [address] [address] Agueda Wiley BILI, CONJUGATED 0.1 mg/dL Normal 0.0-0.2 [facility] Comment on above: Performed By: #### C MIKKI, LIVER, CRP #### [facility] [address] [address] [address] Agueda Wiley Bilirubin [Mass/Vol] 0.4 mg/dL Normal 0.2-1.0 [facility] Comment on above: Performed By: #### C MIKKI, LIVER, CRP #### [facility] [address] [address] [address] Agueda Wiley Globulin (S) [Mass/Vol] 4.2 g/dL Normal [facility] Comment on above: Performed By: #### C MIKKI, LIVER, CRP #### [facility] [address] [place] [address] Dr. Agueda Wiley Protein [Mass/Vol] 7.7 g/dL Normal 6.4-8.2 [facility] Comment on above: Performed By: #### C MIKKI, LIVER, CRP #### [facility] [address] [place] [address] Dr. Agueda Wiley SED RATE WESTERGRENon 2022 SED RATE 26 mm/hr Normal <=30 [facility] Comment on above: Performed By: #### A NAIFA #### [facility] [address] [place] [address] Dr. Agueda Wiley UA RANDOM W/MICROSCOPICon BACTERIA TRACE Abnormal NONE SEEN [facility] Comment on above: Performed By: #### C MIKKI, LIVER #### [facility] [address] [place] [address] Dr. Agueda Wiley Bilirubin Ql (U) Negative Normal NEGATIVE [facility] Comment on above: Performed By: #### C MIKKI, LIVER #### [facility] [address] [place] [address] Dr. Agueda Wiley CAST NONE SEEN Normal NONE SEEN [facility] Comment on above: Performed By: #### C MIKKI, LIVER #### [facility] [address] [place] [address] Dr. Agueda Wiley Clarity (U) CLEAR Normal CLEAR [facility] Comment on above: Performed By: #### C MIKKI, LIVER #### [facility] [address] [place] [address] Dr. Agueda Wiley Color (U) YELLOW Normal YELLOW [facility] Comment on above: Performed By: #### C MIKKI, LIVER #### [facility] [address] [place] [address] Dr. Agueda iWley Crystals LM Nom (Urine sed) NONE SEEN Normal NONE SEEN [facility] Comment on above: Performed By: #### C MIKKI, LIVER #### [facility] [address] [address] [address] Agueda Wiley Epithelial cells LM Ql (Urine sed) FEW Abnormal NONE SEEN /RARE [facility] Comment on above: Performed By: #### C MIKKI, LIVER #### [facility] [address] [place] [address] Dr. Agueda Wiley Glucose Ql (U) Negative Normal NEGATIVE [facility] Comment on above: Performed By: #### C MIKKI, LIVER #### [facility] [address] [place] [address] Dr. Agueda Wiley Hemoglobin Ql (U) Negative Normal NEGATIVE [facility] Comment on above: Performed By: #### C MKIKI, LIVER #### [facility] [address] [place] [address] Dr. Agueda Wiley Ketones Ql (U) Negative Normal NEGATIVE [facility] Comment on above: Performed By: #### C MIKKI, LIVER #### [facility] [address] [place] [address] Dr. Agueda Wiley LEUKOCYTES Negative Normal NEGATIVE [facility] Comment on above: Performed By: #### C MIKKI, LIVER #### [facility] [address] [place] [address] Dr. Agueda Wiley MUCOUS MODERATE Abnormal NONE SEEN [facility] Comment on above: Performed By: #### C MIKKI, LIVER #### [facility] [address] [place] [address] Dr. Agueda Wiley Nitrite Ql (U) Negative Normal NEGATIVE [facility] Comment on above: Performed By: #### C MIKKI, LIVER #### [facility] [address] [place] [address] Dr. Agueda Wiley pH (U) 5.0 [pH] Normal 5-9 [facility] Comment on above: Performed By: #### C MIKKI, LIVER #### [facility] [address] [place] [address] Dr. Agueda Wiley RBC 2-5 Abnormal 0-2 [facility] Comment on above: Performed By: #### C MIKKI, LIVER #### [facility] [address] [place] [address] Dr. Agueda Wiley SPEC GRAVITY >=1.030 Abnormal 1.005-<=1.0 25 [facility] Comment on above: Performed By: #### C MIKKI, LIVER #### [facility] [address] [place] [address] Dr. Agueda Wiley UA PROTEIN 100 mg/dl Abnormal NEGATIVE/ TRACE [facility] Comment on above: Performed By: #### C MIKKI, LIVER #### [facility] [address] [place] [address] Dr. Agueda Wiley Urobilinogen Qn (U) 1.0 {[place]'U}/dL Normal 0.2 - 1. 0 [facility] Comment on above: Performed By: #### C MIKKI, LIVER #### [facility] [address] [place] [address] Dr. Agueda Wiley WBC 0-2 Abnormal NONE SEEN [facility] Comment on above: Performed By: #### C MIKKI, LIVER #### [facility] [address] [place] [address] Dr. Agueda Wiley CBC AUTO DIFFon 11-27-2022 BASO # 0.0 103/ul Normal 0.0-0.1 [facility] Comment on above: Performed By: #### Gila KAYE, LIVER #### [facility] [address] [place] [address] Dr. Agueda Wiley Basophils/100 WBC (Bld) 0.3 % Normal 0.2-2.0 [facility] Comment on above: Performed By: #### C MIKKI, LIVER #### [facility] [address] [place] [address] Dr. Agueda Wiley EO # 0.1 103/ul Normal 0.0-0.7 [facility] Comment on above: Performed By: #### Gila KAYE, LIVER #### [facility] [address] [place] [address] Dr. Agueda Wiley Eosinophils/100 WBC (Bld) 0.9 % Normal 0.9-7.0 [facility] Comment on above: Performed By: #### C MIKKI, LIVER #### [facility] [address] [address] [address] Agueda Wiley Erythrocyte distribution width (RBC) [Ratio] 15.8 % Critically high 11.0-15.0 [facility] Comment on above: Performed By: #### C MIKKI, LIVER #### [facility] [address] [place] [address] Dr. Agueda Wiley Hematocrit (Bld) [Volume fraction] 39.6 % Normal 36.0-48.0 [facility] Comment on above: Performed By: #### C MIKKI, LIVER #### [facility] [address] [place] [address] Dr. Agueda Wiley Hemoglobin (Bld) [Mass/Vol] 12.7 g/dL Normal 12.0-16.0 [facility] Comment on above: Performed By: #### C MIKKI, LIVER #### [facility] [address] [place] [address] Dr. Agueda Wiley IG # 0.08 10e3/ul Critically high 0.00-0.03 [facility] Comment on above: Performed By: #### C MIKKI, LIVER #### [facility] [address] [place] [address] Dr. Agueda Wiley IG % 0.6 % Critically high 0.0-0.5 [facility] Comment on above: Performed By: #### C MIKKI, LIVER #### [facility] [address] [place] [address] Dr. Agueda Wiley LYMPH # 1.2 103/ul Normal 1.2-3.8 [facility] Comment on above: Performed By: #### C MIKKI, LIVER #### [facility] [address] [place] [address] Dr. Agueda Wiley Lymphocytes/100 WBC (Bld) 8.6 % Critically low 20.5-60.0 [facility] Comment on above: Performed By: #### C MIKKI, LIVER #### [facility] [address] [place] [address] Dr. Agueda Wiley MANUAL DIFF REQ NO Normal [facility] Comment on above: Performed By: #### C MIKKI, LIVER #### [facility] [address] [place] [address] Dr. Agueda Wiley MCH (RBC) [Entitic mass] 29.5 pg Normal 26.7-34.0 [facility] Comment on above: Performed By: #### C MIKKI, LIVER #### [facility] [address] [place] [address] Dr. Agueda Wiley MCHC (RBC) [Mass/Vol] 32.1 g/dL Normal 29.9-35.2 [facility] Comment on above: Performed By: #### C MIKKI, LIVER #### [facility] [address] [place] [address] Dr. Agueda Wiley MCV (RBC) [Entitic vol] 92.1 fL Normal 81.0-99.0 [facility] Comment on above: Performed By: #### C MIKKI, LIVER #### [facility] [address] [place] [address] Dr. Agueda Wiley MONO # 0.9 103/ul Critically high 0.3-0.8 [facility] Comment on above: Performed By: #### C MIKKI, LIVER #### [facility] [address] [place] [address] Dr. Agueda Wiley Monocytes/100 WBC (Bld) 7.0 % Normal 1.7-12.0 [facility] Comment on above: Performed By: #### C MIKKI, LIVER #### [facility] [address] [place] [address] Dr. Agueda Wiley NEUT # 11.1 103/ul Critically high 1.4-6.5 [facility] Comment on above: Performed By: #### C MIKKI, LIVER #### [facility] [address] [place] [address] Dr. Agueda Wiley Neutrophils/100 WBC (Bld) 82.6 % Critically high 43.0-75.0 [facility] Comment on above: Performed By: #### C MIKKI, LIVER #### [facility] [address] [place] [address] Dr. Agueda Wiley Platelet mean volume (Bld) [Entitic vol] 11.3 fL Normal 9.5-13.5 [facility] Comment on above: Performed By: #### C MIKKI, LIVER #### [facility] [address] [place] [address] Dr. Agueda Wiley PLT 245 103/ul Normal 150-450 [facility] Comment on above: Performed By: #### C MIKKI, LIVER #### [facility] [address] [place] [address] Dr. Agueda Wiley RBC 4.30 106/ul Normal 4.20-5.40 [facility] Comment on above: Performed By: #### C MIKKI, LIVER #### [facility] [address] [place] [address] Dr. Agueda Wiley WBC 13.5 103/ul Critically high 4.0-11.0 [facility] Comment on above: Performed By: #### Gila KAYE, LIVER #### [facility] [address] [place] [address] Dr. Agueda Wiley CREATININEon 11-27-2022 Creatinine [Mass/Vol] 1.13 mg/dL Critically high 0.55-1.02 [facility] Comment on above: Performed By: #### Gila KAYE, LIVER #### [facility] [address] [place] [address] Dr. Agueda Wiley EGFR-AF SOMALI 58 mL/min/1.73m2 Critically low >=60 [facility] Comment on above: Performed By: #### Gila KAYE, LIVER #### [facility] [address] [place] [address] Dr. Agueda Wiley EGFR-NON AF SOMALI 48 mL/min/1.73m2 Critically low >=60 [facility] Comment on above: Performed By: #### C MIKKI, LIVER #### [facility] [address] [place] [address] Dr. Agueda Wiley LIVER PROFILEon 11-27-2022 Albumin [Mass/Vol] 3.4 g/dL Normal 3.4-5.0 [facility] Comment on above: Performed By: #### C MIKKI, LIVER #### [facility] [address] [address] [address] Agueda Wiley Albumin/Globulin [Mass ratio] 1.0 {ratio} Normal [facility] Comment on above: Performed By: #### C MIKKI, LIVER #### [facility] [address] [address] [address] Agueda Wiley ALP [Catalytic activity/Vol] 67 U/L Normal 46-116 [facility] Comment on above: Performed By: #### C MIKKI, LIVER #### [facility] [address] [address] [address] Agueda Wiley ALT [Catalytic activity/Vol] 37 U/L Normal 14-59 [facility] Comment on above: Performed By: #### C MIKKI, LIVER #### [facility] [address] [address] [address] Agueda Wiley AST [Catalytic activity/Vol] 20 U/L Normal 15-37 [facility] Comment on above: Performed By: #### C MIKKI, LIVER #### [facility] [address] [address] [address] Agueda Wiley BILI, CONJUGATED 0.1 mg/dL Normal 0.0-0.2 [facility] Comment on above: Performed By: #### C MIKKI, LIVER #### [facility] [address] [address] [address] Agueda Wiley Bilirubin [Mass/Vol] 0.4 mg/dL Normal 0.2-1.0 [facility] Comment on above: Performed By: #### C MIKKI, LIVER #### [facility] [address] [address] [address] Agueda Wiley Globulin (S) [Mass/Vol] 3.4 g/dL Normal [facility] Comment on above: Performed By: #### C MIKKI, LIVER #### [facility] [address] [address] [address] Agueda Wiley Protein [Mass/Vol] 6.8 g/dL Normal 6.4-8.2 [facility] Comment on above: Performed By: #### C MIKKI, LIVER #### [facility] [address] [place] [address] Dr. Agueda Wiley [facility] SED RATE 17 mm/hr Normal <=30 [facility] Comment on above: Performed By: #### C MIKKI, LIVER #### [facility] [address] [place] [address] Dr. Agueda Wiley CBC AUTO DIFFon 10-05-2022 BASO # 0.0 103/ul Normal 0.0-0.1 [facility] Comment on above: Performed By: #### C MIKKI, LIVER #### [facility] [address] [place] [address] Dr. Agueda Wiley Basophils/100 WBC (Bld) 0.3 % Normal 0.2-2.0 [facility] Comment on above: Performed By: #### C MIKKI, LIVER #### [facility] [address] [place] [address] Dr. Agueda Wiley EO # 0.1 103/ul Normal 0.0-0.7 [facility] Comment on above: Performed By: #### C MIKKI, LIVER #### [facility] [address] [place] [address] Dr. Agueda Wiley Eosinophils/100 WBC (Bld) 0.6 % Critically low 0.9-7.0 [facility] Comment on above: Performed By: #### C MIKKI, LIVER #### [facility] [address] [place] [address] Dr. Agueda Wiley Erythrocyte distribution width (RBC) [Ratio] 14.0 % Normal 11.0-15.0 [facility] Comment on above: Performed By: #### C MIKKI, LIVER #### [facility] [address] [place] [address] Dr. Agueda Wiley Hematocrit (Bld) [Volume fraction] 38.5 % Normal 36.0-48.0 [facility] Comment on above: Performed By: #### C MIKKI, LIVER #### [facility] [address] [place] [address] Dr. Agueda Wiley Hemoglobin (Bld) [Mass/Vol] 13.3 g/dL Normal 12.0-16.0 [facility] Comment on above: Performed By: #### C MIKKI, LIVER #### [facility] [address] [place] [address] Dr. Agueda Wiley IG # 0.03 10e3/ul Normal 0.00-0.03 [facility] Comment on above: Performed By: #### C MIKKI, LIVER #### [facility] [address] [place] [address] Dr. Agueda Wiley IG % 0.3 % Normal 0.0-0.5 [facility] Comment on above: Performed By: #### C MIKKI, LIVER #### [facility] [address] [place] [address] Dr. Agueda Wiley LYMPH # 1.2 103/ul Normal 1.2-3.8 [facility] Comment on above: Performed By: #### Gila KAYE, LIVER #### [facility] [address] [place] [address] Dr. Agueda Wiley Lymphocytes/100 WBC (Bld) 10.3 % Critically low 20.5-60.0 [facility] Comment on above: Performed By: #### C MIKKI, LIVER #### [facility] [address] [place] [address] Dr. Agueda Wiley MANUAL DIFF REQ NO Normal [facility] Comment on above: Performed By: #### C MIKKI, LIVER #### [facility] [address] [place] [address] Dr. Agueda Wiley MCH (RBC) [Entitic mass] 29.1 pg Normal 26.7-34.0 [facility] Comment on above: Performed By: #### C MIKKI, LIVER #### [facility] [address] [place] [address] Dr. Agueda Wiley MCHC (RBC) [Mass/Vol] 34.5 g/dL Normal 29.9-35.2 [facility] Comment on above: Performed By: #### C MIKKI, LIVER #### [facility] [address] [place] [address] Dr. Agueda Wiley MCV (RBC) [Entitic vol] 84.2 fL Normal 81.0-99.0 [facility] Comment on above: Performed By: #### C MIKKI, LIVER #### [facility] [address] [place] [address] Dr. Agueda Wiley MONO # 0.6 103/ul Normal 0.3-0.8 [facility] Comment on above: Performed By: #### C MIKKI, LIVER #### [facility] [address] [place] [address] Dr. Agueda Wiley Monocytes/100 WBC (Bld) 5.0 % Normal 1.7-12.0 [facility] Comment on above: Performed By: #### C MIKKI, LIVER #### [facility] [address] [place] [address] Dr. Agueda Wiley NEUT # 9.9 103/ul Critically high 1.4-6.5 [facility] Comment on above: Performed By: #### C MIKKI, LIVER #### [facility] [address] [place] [address] Dr. Agueda Wiley Neutrophils/100 WBC (Bld) 83.5 % Critically high 43.0-75.0 [facility] Comment on above: Performed By: #### Gila KAYE, LIVER #### [facility] [address] [place] [address] Dr. Agueda Wiley Platelet mean volume (Bld) [Entitic vol] 10.8 fL Normal 9.5-13.5 [facility] Comment on above: Performed By: #### C MIKKI, LIVER #### [facility] [address] [place] [address] Dr. Agueda Wiley PLT 265 103/ul Normal 150-450 [facility] Comment on above: Performed By: #### C MIKKI, LIVER #### [facility] [address] [place] [address] Dr. Agueda Wiley RBC 4.57 106/ul Normal 4.20-5.40 [facility] Comment on above: Performed By: #### C MIKKI, LIVER #### [facility] [address] [place] [address] Dr. Agueda Wiley WBC 11.9 103/ul Critically high 4.0-11.0 [facility] Comment on above: Performed By: #### C MIKKI, LIVER #### [facility] [address] [place] [address] Dr. Agueda Wiley CREATININEon 10-05-2022 Creatinine [Mass/Vol] 0.92 mg/dL Normal 0.55-1.02 [facility] Comment on above: Performed By: #### C MIKKI, LIVER #### [facility] [address] [place] [address] Dr. Agueda Wiley EGFR-AF SOMALI >60 Normal >=60 [facility] Comment on above: Performed By: #### C MIKKI, LIVER #### [facility] [address] [place] [address] Dr. Agueda Wiley EGFR-NON AF SOMALI >60 Normal >=60 [facility] Comment on above: Performed By: #### C MIKKI, LIVER #### [facility] [address] [place] [address] Dr. Agueda Wiley LIVER PROFILEon 10-05-2022 Albumin [Mass/Vol] 3.4 g/dL Normal 3.4-5.0 [facility] Comment on above: Performed By: #### C MIKKI, LIVER #### [facility] [address] [place] [address] Dr. Agueda Wiley Albumin/Globulin [Mass ratio] 1.0 {ratio} Normal [facility] Comment on above: Performed By: #### C MIKKI, LIVER #### [facility] [address] [place] [address] Dr. Agueda Wiley ALP [Catalytic activity/Vol] 90 U/L Normal 46-116 [facility] Comment on above: Performed By: #### C MIKKI, LIVER #### [facility] [address] [place] [address] Dr. Agueda Wiley ALT [Catalytic activity/Vol] 35 U/L Normal 14-59 [facility] Comment on above: Performed By: #### C MIKIK, LIVER #### [facility] [address] [address] [address] Agueda Wiley AST [Catalytic activity/Vol] 21 U/L Normal 15-37 [facility] Comment on above: Performed By: #### C MIKKI, LIVER #### [facility] [address] [address] [address] Agueda Wiley BILI, CONJUGATED 0.1 mg/dL Normal 0.0-0.2 [facility] Comment on above: Performed By: #### C MIKKI, LIVER #### [facility] [address] [address] [address] Aguead Wiley Bilirubin [Mass/Vol] 0.6 mg/dL Normal 0.2-1.0 [facility] Comment on above: Performed By: #### C MIKKI, LIVER #### [facility] [address] [place] [address] Dr. Agueda Wiley Globulin (S) [Mass/Vol] 3.5 g/dL Normal [facility] Comment on above: Performed By: #### C MIKKI, LIVER #### [facility] [address] [place] [address] Dr. Agueda Wiley Protein [Mass/Vol] 6.9 g/dL Normal 6.4-8.2 [facility] Comment on above: Performed By: #### C MIKKI, LIVER #### [facility] [address] [place] [address] Dr. Agueda Wiley SED RATE [facility] 2022 SED RATE 27 mm/hr Normal <=30 [facility] Comment on above: Performed By: #### C MIKKI, LIVER #### [facility] [address] [place] [address] Dr. Agueda Wiley XR hand RT min 3V*on 023 XR hand RT min 3V* [facility] [employer] Other XR hand RT min 3V* [facility] [employer] Other XR hand RT min 3V* [address] [employer] Other XR hand RT min 3V* [place] [address] [employer] Other XR hand RT min 3V* XRay Report [employer] Other XR hand RT min 3V* Signed [employer] Other XR hand RT min 3V* Patient: Reba Gregory MR#: [id number] [employer] Other XR hand RT min 3V* : 1955 Acct:[id number] [employer] Other XR hand RT min 3V* Age/Sex: 66 / F ADM Date: 09/23/22 [employer] Other XR hand RT min 3V* Loc: [facility] Room: Type : [facility] Other XR hand RT min 3V* Attending Dr: Kim Munson MD [employer] Other XR hand RT min 3V* Copies to: Kiana Munson MD [employer] Other XR hand RT min 3V* Ordering Provider: Kiana Munson MD [employer] Other XR hand RT min 3V* Date of Service: 09/23/22 [employer] Other XR hand RT min 3V* XR/XR hand RT min 3V*: Lesion of finger [employer] Other XR hand RT min 3V* RIGHT HAND - 4 views [employer] Other XR hand RT min 3V* REASON FOR EXAM: Rig ht fourth digit ischemia for one month. Mass on top of right fourth digit. [employer] Other XR hand RT min 3V* COMPARISON: None [employer] Other XR hand RT min 3V* FINDINGS: [employer] Other XR hand RT min 3V* No focal soft tissue abnormality is seen. No radiopaque foreign body. No acute bony process is [employer] Other XR hand RT min 3V* noted. Mild degenera tive changes involving the CMC joint of the thumb. No bony erosions are noted. [employer] Other XR hand RT min 3V* X R/XR hand RT min 3V* [employer] Other XR hand RT min 3V* IMPRESSION: [employer] Other XR hand RT min 3V* MILD DEGENERATIVE CH ANGES WITHOUT ACUTE BONY PROCESS. [employer] Other XR hand RT min 3V* Impression dictated by: Dave Espana Jr., D.O.09/23/2022 4:30 PM [place] [employer] Other XR hand RT min 3V* Dictation Location: [place] [address] [employer] Other XR hand RT min 3V* Transcribed By: PWS 09/23/22 1630 [employer] Other XR hand RT min 3V* Dictated By: Dave Espana Jr, DO 09/23/22 1629 [employer] Other XR hand RT min 3V* Signed By: [employer] Other XR hand RT min 3V* 09/23/22 1630 [facility] [employer] Other Creatinine (Bld) [Mass/Vol]O rdered By: George Ryan on 09-08-2022 Creatinine [Mass/Vol] 0.9 mg/dL 0.6-1.3 [facility] Comment on above: ER/ESD physician is notified/shown all ISTAT results.Critical values may be confirmed by laboratory testing ifdeemed necessary by ER attending doctor. No Panel InformationOrdered By: George Ryan on 09-08-2022 POC Estimated GFR > 60 [facility] Comment on above: GFR estimated refere nce range: According to KDOQI guidelines, <60 ml/min/1.73m2 is sufficient to diagnose a patient with chronic kidney disease. POC Estimated GFR Non- Amer > 60 [facility] LUPUS ANTICOAGULANT PROFILEo n 09-04-2022 Anticardiolipin Ab, IgG <10 Normal [facility] Comment on above: Result Comment: Refe rence Range: Negative: <15 Indeterminate: 15 - 20 Low to medium positive: >20 - 80 High positive: >80 Performed By: #### C MIKKI, LIVER #### [facility] [address] [address] [address] Agueda Wiley Anticardiolipin Ab, IgM 34 MPL Critically high [facility] Comment on above: Result Comment: Refe rence Range: Negative: <13 Indeterminate: 13 - 20 Low to medium positive: >20 - 80 High positive: >80 Performed By: #### C MIKKI, LIVER #### [facility] [address] [address] [address] Agueda Wiley APTT 1:1 ORTHOPEDICS PEDIATRIC PHYSICIAN NIY Normal [facility] Comment on above: Result Comment: Test ing Not Indicated This test was developed and its performance characteristics determined by [facility]. It has not been cleared or approved by the [place] Food and Drug Administration. Performed By: #### C MIKKI, LIVER #### [facility] [address] [address] [address] Agueda Wiley APTT 1:1 Saline NIY Normal [facility] Comment on above: Result Comment: Test ing Not Indicated This test was developed and its performance characteristics determined by [facility]. It has not been cleared or approved by the [place] Food and Drug Administration. Performed By: #### C MIKKI, LIVER #### [facility] [address] [address] [address] Agueda Wiley aPTT Coag (Bld) [Time] 23.9 s Normal [facility] Comment on above: Result Comment: This test has not been validated for monitoring unfractionated heparin therapy. aPTT-based therapeutic ranges for unfractionated heparin therapy have not been established. Consider ordering Heparin anti-Xa (unfractionated). Reference Range: 18 years and older: 22.9 - 30.2 Performed By: #### C MIKKI, LIVER #### [facility] [address] [address] [address] Agueda Wiley Beta-2 Glycoprotein I, IgA <10 Normal [facility] Comment on above: Result Comment: The reference interval reflects a 3SD or 99th percentile interval. Reference Range: Negative: <26 Performed By: #### C MIKKI, LIVER #### [facility] [address] [address] [address] Agueda Wiley Beta-2 Glycoprotein I, IgG <10 Normal [facility] Comment on above: Result Comment: The reference interval reflects a 3SD or 99th percentile interval. Reference Range: Negative: <21 Performed By: #### C MIKKI, LIVER #### [facility] [address] [place] [address] Dr. Agueda Wiley Beta-2 Glycoprotein I, IgM <10 Normal [facility] Comment on above: Result Comment: The reference interval reflects a 3SD or 99th percentile interval. Reference Range: Negative: <33 Performed By: #### C MIKKI, LIVER #### [facility] [address] [address] [address] Agueda BARRVT Confirm Seconds NIY Normal [facility] Comment on above: Result Comment: Test ing Not Indicated Performed By: #### C MIKKI, LIVER #### [facility] [address] [address] [address] Agueda BARRVT Ratio NIY Normal [facility] Comment on above: Result Comment: Test ing Not Indicated Performed By: #### C MIKKI, LIVER #### [facility] [address] [address] [address] Agueda BARRVT Screen Seconds 39.3 sec [facility] Comment on above: Result Comment: Refe rence Range: <= 47.0 Performed By: #### C MIKKI, LIVER #### [facility] [address] [address] [address] Agueda Wiley Hexagonal Phospholipid Neutral 1 sec Normal [facility] Comment on above: Result Comment: This value is NEGATIVE. This is a qualitative assay and is therefore reported as positive for lupus anticoagulant or negative. The quantitative value is provided as an aid in diagnosis. Reference Range: 0 - 11 Performed By: #### C MIKKI, LIVER #### [facility] [address] [place] [address] Dr. Agueda Wiley INR Coag (PPP) [Relative time] 1.0 {INR} Normal [facility] Comment on above: Result Comment: Refe rence Range: >1 month: 0.9 - 1.2 Performed By: #### C MIKKI, LIVER #### [facility] [address] [place] [address] Dr. Agueda Wiley LAC Interpretation Comment Normal [facility] Comment on above: Result Comment: A [...] repeat testing may be indicated. Please contact [facility] if further clarification is needed. Performed By: #### C MIKKI LIVER #### [facility] [address] [place] [address] Dr. Agueda Wiley Platelet Neutralization 0.0 sec Normal [facility] Comment on above: Result Comment: Refe rence Range: 0.0 - 3.0 This test was developed and its performance characteristics determined by [employer]. It has not been cleared or approved by the Food and Drug Administration. Performed By: #### C MIKKI, LIVER #### [facility] [address] [place] [address] Dr. Agueda Wiley PT Coag (PPP) [Time] 10.6 s Normal [facility] Comment on above: Result Comment: Refe rence Range: 18 years and older: 9.1 - 12.0 Performed By: #### C MIKKI LIVER #### [facility] [address] [place] [address] Dr. Agueda Wiley Thrombin Time 17.2 sec Normal [facility] Comment on above: Result Comment: Refe rence Range: 0.0 - 23.0 Performed By: #### C MIKKI, LIVER #### [facility] [address] [address] [address] Agueda Wiley VAL by IFAon 09-03-2022 Antinuclear Antibodies, IFA Positive Abnormal [facility] Comment on above: Result Comment: Nega tive <1:80 Borderline 1:80 Positive >1:80 Performed By: #### A NAIFA #### [facility] [address] [address] [address] Agueda Wiley Centriole Pattern Normal [facility] Comment on above: Performed By: #### A NAIFA #### [facility] [address] [address] [address] Agueda Wiley Centromere Pattern Normal [facility] Comment on above: Performed By: #### A NAIFA #### [facility] [address] [address] [address] Agueda Wiley Homogeneous Pattern 1:320 Critically high [facility] Comment on above: Result Comment: ICAP nomenclature: AC-1 Performed By: #### A NAIFA #### [facility] [address] [address] [address] Agueda Wiley Midbody Pattern Normal [facility] Comment on above: Performed By: #### A NAIFA #### [facility] [address] [place] [address] Dr. Agueda Wiley Note: Comment Normal [facility] Comment on above: Result Comment: For [...] titers Nucleosomes, Histones Drug-induced SLE Speckled Sm, TECHNICAL ILLUSTRATOR, SCL-70, SLE,MCTD,PSS (diffuse form), SS-A/SS-B Sjogrens Nucleolar SCL-70, PM-1/SCL High titers Scleroderma, PM/DM Centromere Centromere PSS (limited form) w/Crest syndrome variable Nuclear Dot [id number] Primary Biliary Cirrhosis Nuclear GP210, Primary Biliary Cirrhosis Membrane hank A,B,C Performed By: #### A DUANE #### [facility] [address] [address] [address] Agueda Wiley Nuclear Dot Pattern Normal [facility] Comment on above: Performed By: #### A NAIFA #### [facility] [address] [address] [address] Agueda Wiley Nuclear Membrane Pattern Normal [facility] Comment on above: Performed By: #### A NAIFA #### [facility] [address] [address] [address] Agueda Wiley Nucleolar Pattern Normal [facility] Comment on above: Performed By: #### A NAIFA #### [facility] [address] [address] [address] Agueda Wiley PCNA Pattern Normal [facility] Comment on above: Performed By: #### A NAIFA #### [facility] [address] [place] [address] Dr. Agueda Wiley Speckled Pattern Normal [facility] Comment on above: Performed By: #### A NAIFA #### [facility] [address] [address] [address] Agueda Wiley Spindle Apparatus Pattern Normal [facility] Comment on above: Performed By: #### A NAIFA #### [facility] [address] [address] [address] Agueda Wiley ANTI-DNA DS ABon 09-01-2022 Anti-DNA (DS) Ab Qn 1 IU/mL Normal 0-9 [facility] Comment on above: Result Comment: Nega tive <5 Equivocal 5 - 9 Positive >9 Performed By: #### C MIKKI LIVER #### [facility] [address] [address] [address] Agueda Wiley ANTICHROMATIN ANTIBODIESon 1 11-02-2021 Antichromatin Antibodies <0.2 Normal 0.0-0.9 [facility] Comment on above: Performed By: #### C MIKKI LIVER #### [facility] [address] [address] [address] Agueda Wiley C3 and C4 COMPLEMENTon 09-01 Complement C3, Serum 79 mg/dL Critically low 82-167 [facility] Comment on above: Performed By: #### C MIKKI LIVER #### [facility] [address] [address] [address] Agueda Wiley Complement C4, Serum 18 mg/dL Normal 12-38 [facility] Comment on above: Performed By: #### C MIKKI LIVER #### [facility] [address] [address] [address] Agueda Wiley COMPLEMENT TOTAL (CH50)on Complement, Total (CH50) >60 Normal >41 [facility] Comment on above: Result Comment: Age Male [...] values. Performed By: #### C SUITE #### [facility] [address] [place] [address] Dr. Agueda Wiley TECHNICAL ILLUSTRATOR ANTIBODIESon 09-01-2022 TECHNICAL ILLUSTRATOR Antibodies 0.2 AI Normal 0.0-0.9 [facility] Comment on above: Performed By: #### R NPAB #### [facility] [address] [place] [address] Dr. Agueda Wiley SJOGRENS ANTIBODIES (Anti SS A/B)on 09-01-2022 Sjogren's Anti-SS-A <0.2 Normal 0.0-0.9 [facility] Comment on above: Performed By: #### C SUITE #### [facility] [address] [address] [address] Agueda Wiley Sjogren's Anti-SS-B <0.2 Normal 0.0-0.9 [facility] Comment on above: Performed By: #### C SUITE #### [facility] [address] [place] [address] Dr. Agueda Wiley RAMOS ANTIBODIESon Ramos Antibodies 1.0 AI Critically high 0.0-0.9 [facility] Comment on above: Performed By: #### R NPAB #### [facility] [address] [place] [address] Dr. Agueda Wiley CBC AUTO DIFFon 08-31-2022 BASO # 0.1 103/ul Normal 0.0-0.1 [facility] Comment on above: Performed By: #### R NPAB #### [facility] [address] [place] [address] Dr. Agueda Wiley Basophils/100 WBC (Bld) 0.7 % Normal 0.2-2.0 [facility] Comment on above: Performed By: #### R NPAB #### [facility] [address] [place] [address] Dr. Agueda Wiley EO # 0.4 103/ul Normal 0.0-0.7 [facility] Comment on above: Performed By: #### R NPAB #### [facility] [address] [place] [address] Dr. Agueda Wiley Eosinophils/100 WBC (Bld) 6.1 % Normal 0.9-7.0 [facility] Comment on above: Performed By: #### R NPAB #### [facility] Laboratory [address] [place] [address] Dr. Agueda Wiley Erythrocyte distribution width (RBC) [Ratio] 13.6 % Normal 11.0-15.0 [facility] Comment on above: Performed By: #### R NPAB #### [facility] Laboratory [address] [place] [address] Dr. Agueda Wiley Hematocrit (Bld) [Volume fraction] 40.4 % Normal 36.0-48.0 [facility] Comment on above: Performed By: #### R NPAB #### [facility] [address] [place] [address] Dr. Agueda Wiley Hemoglobin (Bld) [Mass/Vol] 12.9 g/dL Normal 12.0-16.0 [facility] Comment on above: Performed By: #### R NPAB #### [facility] [address] [place] [address] Dr. Agueda Wiley IG # 0.04 10e3/ul Critically high 0.00-0.03 The [facility] Comment on above: Performed By: #### R NPAB #### [facility] [address] [place] [address] Dr. Agueda Wiley IG % 0.6 % Critically high 0.0-0.5 The [facility] Comment on above: Performed By: #### R NPAB #### [facility] [address] [place] [address] Dr. Agueda Wiley LYMPH # 1.4 103/ul Normal 1.2-3.8 [facility] Comment on above: Performed By: #### R NPAB #### [facility] [address] [place] [address] Dr. Agueda Wiley Lymphocytes/100 WBC (Bld) 20.6 % Normal 20.5-60.0 [facility] Comment on above: Performed By: #### R NPAB #### [facility] [address] [place] [address] Dr. Agueda Wiley MANUAL DIFF REQ NO Normal [facility] Comment on above: Performed By: #### R NPAB #### [facility] [address] [place] [address] Dr. Agueda Wiley MCH (RBC) [Entitic mass] 29.0 pg Normal 26.7-34.0 [facility] Comment on above: Performed By: #### R NPAB #### [facility] [address] [place] [address] Dr. Agueda Wiley MCHC (RBC) [Mass/Vol] 31.9 g/dL Normal 29.9-35.2 [facility] Comment on above: Performed By: #### R NPAB #### [facility] Laboratory [address] [place] [address] Dr. Agueda Wiley MCV (RBC) [Entitic vol] 90.8 fL Normal 81.0-99.0 [facility] Comment on above: Performed By: #### R NPAB #### [facility] Laboratory [address] [place], [place] [id number] Dr. Agueda Wiley MONO # 0.8 103/ul Normal 0.3-0.8 [facility] Comment on above: Performed By: #### R NPAB #### [facility] [address] [place] [address] Dr. Agueda Wiley Monocytes/100 WBC (Bld) 10.9 % Normal 1.7-12.0 [facility] Comment on above: Performed By: #### R NPAB #### [facility] [address] [place] [address] Dr. Agueda Wiley NEUT # 4.2 103/ul Normal 1.4-6.5 [facility] Comment on above: Performed By: #### R NPAB #### [facility] [address] [place] [address] Dr. Agueda Wiley Neutrophils/100 WBC (Bld) 61.1 % Normal 43.0-75.0 [facility] Comment on above: Performed By: #### R NPAB #### [facility] [address] [place] [address] Dr. Agueda Wiley Platelet mean volume (Bld) [Entitic vol] 10.9 fL Normal 9.5-13.5 [facility] Comment on above: Performed By: #### R NPAB #### [facility] [address] [place] [address] Dr. Agueda Wiley PLT 324 103/ul Normal 150-450 [facility] Comment on above: Performed By: #### R NPAB #### [facility] [address] [place] [address] Dr. Agueda Wiley RBC 4.45 106/ul Normal 4.20-5.40 [facility] Comment on above: Performed By: #### R NPAB #### [facility] [address] [place] [address] Dr. Agueda Wiley WBC 6.9 103/ul Normal 4.0-11.0 [facility] Comment on above: Performed By: #### R NPAB #### [facility] [address] [place] [address] Dr. Agueda Wiley CREATININEon 08-31-2022 Creatinine [Mass/Vol] 1.00 mg/dL Normal 0.55-1.02 [facility] Comment on above: Performed By: #### A NAMILO #### [facility] [address] [address] [address] Agueda Wiley EGFR-AF SOMALI >60 Normal >=60 [facility] Comment on above: Performed By: #### A NAIFTania #### [facility] [address] [address] [address] Agueda Wiley EGFR-NON AF SOMALI 55 mL/min/1.73m2 Critically low >=60 [facility] Comment on above: Performed By: #### A NAIFTania #### [facility] [address] [place] [address] Dr. Agueda Wiley CRPon 08-31-2022 CRP 0.8 mg/dL Normal <=1.0 [facility] Comment on above: Performed By: #### Gila KAYE, LIVER #### [facility] [address] [place] [address] Dr. Agueda Wiley [facility] 85 mm/hr Critically high <=30 [facility] Comment on above: Performed By: #### Gila KAYE LIVER #### [facility] [address] [place] [address] Dr. Agueda Wiley STOOL CULTUREon 08-18-2022 Campylobacter Culture Final report Normal T [facility] Comment on above: Performed By: #### Gila KAYE, LIVER #### [facility] [address] [place] [address] Dr. Agueda Wiley E coli Shiga Toxin EIA Negative Normal Negative [facility] Comment on above: Performed By: #### Gila KAYE, LIVER #### [facility] [address] [place] [address] Dr. Agueda Wiley Result 1 Comment Normal [facility] Comment on above: Result Comment: No S almonella or Shigella recovered. Performed By: #### Gila KAYE, LIVER #### [facility] [address] [place] [address] Dr. Agueda Wiley Result Comment: No C ampylobacter species isolated. Salmonella/Shigella Screen Final report Normal [facility] Comment on above: Performed By: #### C MIKKI, LIVER #### [facility] [address] [address] [address] Agueda Wiley C. DIFF PCRon 08-14-2022 C. DIFFICILE PCR Positive Critically abnormal NEGATIVE [facility] Comment on above: Performed By: #### R NPAB #### [facility] [address] [address] [address] Agueda Wiley IMMUNOFIXATION(ERIN),PROTEIN ELEC(PE),FREon 08-14-2022 Albumin [Mass/Vol] 3.8 g/dL Normal 2.9-4.4 [facility] Comment on above: Performed By: #### A NAIFA #### [facility] [address] [address] [address] Agueda Wiley Albumin/Globulin [Mass ratio] 1.3 {ratio} Normal 0.7-1.7 [facility] Comment on above: Performed By: #### A NAIFA #### [facility] [address] [address] [address] Agueda Wiley Aqysa-6-Ebhvexda 0.3 g/dL Normal 0.0-0.4 [facility] Comment on above: Performed By: #### A NAIFA #### [facility] [address] [address] [address] Agueda Wiley Rgnwn-2-Kqrknkow 0.9 g/dL Normal 0.4-1.0 [facility] Comment on above: Performed By: #### A NAIFA #### [facility] [address] [address] [address] Agueda Wiley Beta Globulin 1.0 g/dL Normal 0.7-1.3 The [facility] Comment on above: Performed By: #### A NAIFA #### [facility] [address] [address] [address] Agueda Wiley Free [place] Lt Chains,S 28.5 mg/L Critically high 3.3-19.4 [facility] Comment on above: Performed By: #### A NAIFA #### [facility] [address] [address] [address] Agueda Wiley Free [place] Lt Chains,S 16.7 mg/L Normal 5.7-26.3 [facility] Comment on above: Performed By: #### A NAIFA #### [facility] [address] [place] [address] Dr. Agueda Wiley Gamma Globulin 0.8 g/dL Normal 0.4-1.8 [facility] Comment on above: Performed By: #### A NAIFA #### [facility] [address] [place] [address] Dr. Agueda Wiley Globulin (S) [Mass/Vol] 3.0 g/dL Normal 2.2-3.9 [facility] Comment on above: Performed By: #### A NAIFA #### [facility] [address] [place] [address] Dr. Agueda Wiley Immunofixation Result, Serum Comment Normal [facility] Comment on above: Result Comment: No m onoclonality detected. Performed By: #### A NAIFA #### [facility] [address] [place] [address] Dr. Agueda Wiley Immunoglobulin A, Qn, Serum 179 mg/dL Normal 87-352 [facility] Comment on above: Performed By: #### A NAIFA #### [facility] [address] [place] [address] Dr. Agueda Wiley Immunoglobulin G, Qn, Serum 902 mg/dL Normal 586-1602 [facility] Comment on above: Performed By: #### A NAIFA #### [facility] [address] [place] [address] Dr. Agueda Wiley Immunoglobulin M, Qn, Serum 81 mg/dL Normal 26-217 [facility] Comment on above: Performed By: #### A NAIFA #### [facility] [address] [place] [address] Dr. Agueda Wiley [place]/Lambda Ratio, S 1.71 Critically high 0.26-1.65 [facility] Comment on above: Performed By: #### A NAIFA #### [facility] [address] [place] [address] Dr. Agueda Wiley M-Richard Not Observed Normal Not Observed [facility] Comment on above: Performed By: #### A NAIFA #### [facility] [address] [place] [address] Dr. Agueda Wiley PDF . Normal [facility] Comment on above: Performed By: #### A NAIFA #### [facility] [address] [place] [address] Dr. Agueda Wiley Please note: Comment Normal [facility] Comment on above: Result Comment: Prot ein electrophoresis scan will follow via computer, mail, or conservation of resources commissioner delivery. Performed By: #### A NAIFA #### [facility] [address] [place] [address] Dr. Agueda Wiely Protein [Mass/Vol] 6.8 g/dL Normal 6.0-8.5 [facility] Comment on above: Performed By: #### A NAIFA #### [facility] [address] [place] [address] Dr. Agueda Wiley IMMUNOGLOBULINS IGA/IGM/IGG QUANTITATIVEon 08-14-2022 Immunoglobulin A, Qn, Serum 182 mg/dL Normal 87-352 [facility] Comment on above: Performed By: #### C MIKKI, LIVER #### [facility] [address] [place] [address] Dr. Agueda Wiley Immunoglobulin G, Qn, Serum 923 mg/dL Normal 586-1602 [facility] Comment on above: Performed By: #### C MIKKI, LIVER #### [facility] [address] [place] [address] Dr. Agueda Wiley Immunoglobulin M, Qn, Serum 82 mg/dL Normal 26-217 [facility] Comment on above: Performed By: #### C MIKKI, LIVER #### [facility] [address] [place] [address] Dr. Agueda Wiley CBC AUTO DIFFon 08-13-2022 BASO # 0.0 103/ul Normal 0.0-0.1 [facility] Comment on above: Performed By: #### R NPAB #### [facility] [address] [place] [address] Dr. Agueda Wiley Basophils/100 WBC (Bld) 0.4 % Normal 0.2-2.0 [facility] Comment on above: Performed By: #### R NPAB #### [facility] [address] [place] [address] Dr. Agueda Wiley EO # 0.2 103/ul Normal 0.0-0.7 [facility] Comment on above: Performed By: #### R NPAB #### [facility] [address] [place] [address] Dr. Agueda Wiley Eosinophils/100 WBC (Bld) 1.9 % Normal 0.9-7.0 [facility] Comment on above: Performed By: #### R NPAB #### [facility] [address] [place] [address] Dr. Agueda Wiley Erythrocyte distribution width (RBC) [Ratio] 13.8 % Normal 11.0-15.0 [facility] Comment on above: Performed By: #### R NPAB #### [facility] [address] [place] [address] Dr. Agueda Wiley Hematocrit (Bld) [Volume fraction] 41.4 % Normal 36.0-48.0 [facility] Comment on above: Performed By: #### R NPAB #### [facility] [address] [place] [address] Dr. Agueda Wiley Hemoglobin (Bld) [Mass/Vol] 13.5 g/dL Normal 12.0-16.0 [facility] Comment on above: Performed By: #### R NPAB #### [facility] [address] [place] [address] Dr. Agueda Wiley IG # 0.02 10e3/ul Normal 0.00-0.03 [facility] Comment on above: Performed By: #### R NPAB #### [facility] [address] [place] [address] Dr. Agueda Wiley IG % 0.2 % Normal 0.0-0.5 [facility] Comment on above: Performed By: #### R NPAB #### [facility] [address] [place] [address] Dr. Agueda Wiley LYMPH # 2.0 103/ul Normal 1.2-3.8 [facility] Comment on above: Performed By: #### R NPAB #### [facility] [address] [place] [address] Dr. Agueda Wiley Lymphocytes/100 WBC (Bld) 20.5 % Normal 20.5-60.0 [facility] Comment on above: Performed By: #### R NPAB #### [facility] [address] [place] [address] Dr. Agueda Wiley MANUAL DIFF REQ NO Normal [facility] Comment on above: Performed By: #### R NPAB #### [facility] [address] [place] [address] Dr. Agueda Wiley MCH (RBC) [Entitic mass] 29.1 pg Normal 26.7-34.0 [facility] Comment on above: Performed By: #### R NPAB #### [facility] [address] [place] [address] Dr. Agueda Wiley MCHC (RBC) [Mass/Vol] 32.6 g/dL Normal 29.9-35.2 [facility] Comment on above: Performed By: #### R NPAB #### [facility] [address] [place] [address] Dr. Agueda Wiley MCV (RBC) [Entitic vol] 89.2 fL Normal 81.0-99.0 [facility] Comment on above: Performed By: #### R NPAB #### [facility] [address] [place] [address] Dr. Agueda Wiley MONO # 0.8 103/ul Normal 0.3-0.8 [facility] Comment on above: Performed By: #### R NPAB #### [facility] [address] [place] [address] Dr. Agueda Wiley Monocytes/100 WBC (Bld) 8.6 % Normal 1.7-12.0 [facility] Comment on above: Performed By: #### R NPAB #### [facility] [address] [place] [address] Dr. Agueda Wiley NEUT # 6.6 103/ul Critically high 1.4-6.5 [facility] Comment on above: Performed By: #### R NPAB #### [facility] [address] [place] [address] Dr. Agueda Wiley Neutrophils/100 WBC (Bld) 68.4 % Normal 43.0-75.0 [facility] Comment on above: Performed By: #### R NPAB #### [facility] [address] [place] [address] Dr. Agueda Wiley Platelet mean volume (Bld) [Entitic vol] 10.0 fL Normal 9.5-13.5 [facility] Comment on above: Performed By: #### R NPAB #### [facility] [address] [place] [address] Dr. Agueda Wiley PLT 379 103/ul Normal 150-450 [facility] Comment on above: Performed By: #### R NPAB #### [facility] [address] [place] [address] Dr. Agueda Wiley RBC 4.64 106/ul Normal 4.20-5.40 [facility] Comment on above: Performed By: #### R NPAB #### [facility] [address] [place] [address] Dr. Agueda Wiley WBC 9.7 103/ul Normal 4.0-11.0 [facility] Comment on above: Performed By: #### R NPAB #### [facility] [address] [place] [address] Dr. Agueda Wiley CRPon 08-13-2022 CRP 0.2 mg/dL Normal <=1.0 [facility] Comment on above: Performed By: #### A NAIFA #### [facility] [address] [place] [address] Dr. Agueda Wiley PROF 14(COMP METB)on 022 Albumin [Mass/Vol] 3.4 g/dL Normal 3.4-5.0 [facility] Comment on above: Performed By: #### A NAJOSEA #### [facility] [address] [place] [address] Dr. Agueda Wiley Albumin/Globulin [Mass ratio] 0.8 {ratio} Normal [facility] Comment on above: Performed By: #### A NAIFA #### [facility] [address] [address] [address] Agueda Wiley ALP [Catalytic activity/Vol] 94 U/L Normal 46-116 [facility] Comment on above: Performed By: #### A NAIFA #### [facility] [address] [place] [address] Dr. Agueda Wiley ALT [Catalytic activity/Vol] 16 U/L Normal 14-59 [facility] Comment on above: Performed By: #### A NAIFA #### [facility] [address] [address] [address] Agueda Wiley Anion gap [Moles/Vol] 13.0 mmol/L Normal [facility] Comment on above: Performed By: #### A NAIFA #### [facility] [address] [place] [address] Dr. Agueda Wiley AST [Catalytic activity/Vol] 13 U/L Critically low 15-37 [facility] Comment on above: Performed By: #### A NAIFA #### [facility] [address] [address] [address] Agueda Wiley Bilirubin [Mass/Vol] 0.3 mg/dL Normal 0.2-1.0 [facility] Comment on above: Performed By: #### A NAIFA #### [facility] [address] [place] [address] Dr. Agueda Wiley Calcium [Mass/Vol] 9.1 mg/dL Normal 8.5-10.1 [facility] Comment on above: Performed By: #### A NAIFA #### [facility] [address] [place] [address] Dr. Agueda Wiley Chloride [Moles/Vol] 103 mmol/L Normal 98-107 [facility] Comment on above: Performed By: #### A NAIFA #### [facility] [address] [place] [address] Dr. Agueda Wiley CO2 [Moles/Vol] 25.8 mmol/L Normal 21.0-32.0 [facility] Comment on above: Performed By: #### A NAIFA #### [facility] [address] [address] [address] Agueda Wiley Creatinine [Mass/Vol] 0.94 mg/dL Normal 0.55-1.02 [facility] Comment on above: Performed By: #### A NAIFA #### [facility] [address] [place] [address] Dr. Agueda Wiley EGFR-AF SOMALI >60 Normal >=60 [facility] Comment on above: Performed By: #### A NAIFA #### [facility] [address] [place] [address] Dr. Agueda Wiley EGFR-NON AF SOMALI 59 mL/min/1.73m2 Critically low >=60 [facility] Comment on above: Performed By: #### A NAIFA #### [facility] [address] [place] [address] Dr. Agueda Wiley Globulin (S) [Mass/Vol] 4.1 g/dL Normal [facility] Comment on above: Performed By: #### A NAIFA #### [facility] [address] [place] [address] Dr. Agueda Wiley Glucose [Mass/Vol] 110 mg/dL Critically high 74-106 T [facility] Comment on above: Performed By: #### A NAIFA #### [facility] [address] [place] [address] Dr. Agueda Wiley Potassium [Moles/Vol] 3.8 mmol/L Normal 3.5-5.1 [facility] Comment on above: Performed By: #### A NAIFA #### [facility] [address] [place] [address] Dr. Agueda Wiley Sodium [Moles/Vol] 138 mmol/L Normal 136-145 [facility] Comment on above: Performed By: #### A NAIFA #### [facility] [address] [place] [address] Dr. Agueda Wiley Urea nitrogen [Mass/Vol] 20.0 mg/dL Critically high 7.0-18.0 [facility] Comment on above: Performed By: #### A NAIFA #### [facility] [address] [place] [address] Dr. Agueda Wiley Urea nitrogen/Creatinine [Mass ratio] 21.3 mg/mg Normal [facility] Comment on above: Performed By: #### A NAIFA #### [facility] [address] [place] [address] Dr. Agueda Wiley SED RATE WESTERGRENon 2021 SED RATE 82 mm/hr Critically high <=30 [facility] Comment on above: Performed By: #### R NPAB #### [facility] [address] [place] [address] Dr. Agueda Wiley TOTAL PROTEIN SERUMon 2021 Protein [Mass/Vol] 7.5 g/dL Normal 6.4-8.2 [facility] Comment on above: Performed By: #### A NAIFA #### [facility] [address] [place] [address] Dr. Agueda Wiley XR CHEST 2 Von [...] TENZIN GENTILE Date: 2022-08-13 18:41 Normal [facility] CBC AUTO DIFFon 08-04-2022 BASO # 0.1 103/ul Normal 0.0-0.1 [facility] Comment on above: Performed By: #### A NAIFA #### [facility] [address] [place] [address] Dr. Agueda Wiley Basophils/100 WBC (Bld) 0.5 % Normal 0.2-2.0 [facility] Comment on above: Performed By: #### A NAIFA #### [facility] [address] [place] [address] Dr. Agueda Wiley EO # 0.1 103/ul Normal 0.0-0.7 [facility] Comment on above: Performed By: #### A NAIFA #### [facility] [address] [place] [address] Dr. Agueda Wiley Eosinophils/100 WBC (Bld) 0.7 % Critically low 0.9-7.0 [facility] Comment on above: Performed By: #### A NAIFA #### [facility] [address] [place] [address] Dr. Agueda Wiley Erythrocyte distribution width (RBC) [Ratio] 14.3 % Normal 11.0-15.0 [facility] Comment on above: Performed By: #### A NAIFA #### [facility] [address] [place] [address] Dr. Agueda Wiley Hematocrit (Bld) [Volume fraction] 37.3 % Normal 36.0-48.0 [facility] Comment on above: Performed By: #### A NAIFA #### [facility] [address] [place] [address] Dr. Agueda Wilye Hemoglobin (Bld) [Mass/Vol] 12.1 g/dL Normal 12.0-16.0 [facility] Comment on above: Performed By: #### A NAIFA #### [facility] [address] [place] [address] Dr. Agueda Wiley IG # 0.03 10e3/ul Normal 0.00-0.03 [facility] Comment on above: Performed By: #### A NAIFA #### [facility] [address] [place] [address] Dr. Agueda Wiley IG % 0.3 % Normal 0.0-0.5 [facility] Comment on above: Performed By: #### A NAIFA #### [facility] [address] [place] [address] Dr. Agueda Wiley LYMPH # 1.5 103/ul Normal 1.2-3.8 [facility] Comment on above: Performed By: #### A NAIFA #### [facility] [address] [place] [address] Dr. Agueda Wiley Lymphocytes/100 WBC (Bld) 15.8 % Critically low 20.5-60.0 [facility] Comment on above: Performed By: #### A NAIFA #### [facility] [address] [place] [address] Dr. Agueda Wiley MANUAL DIFF REQ NO Normal [facility] Comment on above: Performed By: #### A NAIFA #### [facility] [address] [place] [address] Dr. Agueda Wiley MCH (RBC) [Entitic mass] 29.6 pg Normal 26.7-34.0 [facility] Comment on above: Performed By: #### A NAIFA #### [facility] [address] [place] [address] Dr. Agueda Wiley MCHC (RBC) [Mass/Vol] 32.4 g/dL Normal 29.9-35.2 [facility] Comment on above: Performed By: #### A NAIFA #### [facility] [address] [place] [address] Dr. Agueda Wiley MCV (RBC) [Entitic vol] 91.2 fL Normal 81.0-99.0 [facility] Comment on above: Performed By: #### A NAIFA #### [facility] [address] [place] [address] Dr. Agueda Wiley MONO # 0.6 103/ul Normal 0.3-0.8 [facility] Comment on above: Performed By: #### A NAIFA #### [facility] [address] [place] [address] Dr. Agueda Wiley Monocytes/100 WBC (Bld) 6.2 % Normal 1.7-12.0 [facility] Comment on above: Performed By: #### A NAIFA #### [facility] [address] [place] [address] Dr. Agueda Wiley NEUT # 7.2 103/ul Critically high 1.4-6.5 [facility] Comment on above: Performed By: #### A NAIFA #### [facility] [address] [place] [address] Dr. Agueda Wiley Neutrophils/100 WBC (Bld) 76.5 % Critically high 43.0-75.0 [facility] Comment on above: Performed By: #### A NAIFA #### [facility] [address] [place] [address] Dr. Agueda Wiley Platelet mean volume (Bld) [Entitic vol] 11.0 fL Normal 9.5-13.5 [facility] Comment on above: Performed By: #### A NAIFA #### [facility] [address] [place] [address] Dr. Agueda Wiley PLT 298 103/ul Normal 150-450 [facility] Comment on above: Performed By: #### A NAIFA #### [facility] [address] [place] [address] Dr. Agueda Wiley RBC 4.09 106/ul Critically low 4.20-5.40 [facility] Comment on above: Performed By: #### A NAIFA #### [facility] [address] [place] [address] Dr. Agueda Wiley WBC 9.5 103/ul Normal 4.0-11.0 [facility] Comment on above: Performed By: #### A NAIFA #### [facility] [address] [place] [address] Dr. Agueda Wiley CREATININEon 08-04-2022 Creatinine [Mass/Vol] 0.93 mg/dL Normal 0.55-1.02 [facility] Comment on above: Performed By: #### C MIKKI, LIVER #### [facility] [address] [place] [address] Dr. Agueda Wiley EGFR-AF SOMALI >60 Normal >=60 [facility] Comment on above: Performed By: #### C MIKKI, LIVER #### [facility] [address] [place] [address] Dr. Agueda Wiley EGFR-NON AF SOMALI =60 Normal >=60 [facility] Comment on above: Performed By: #### C MIKKI, LIVER #### [facility] [address] [address] [address] Agueda Wiley LIVER PROFILEon 08-04-2022 Albumin [Mass/Vol] 3.0 g/dL Critically low 3.4-5.0 [facility] Comment on above: Performed By: #### C MIKKI, LIVER #### [facility] [address] [place] [address] Dr. Agueda Wiley Albumin/Globulin [Mass ratio] 0.7 {ratio} Normal [facility] Comment on above: Performed By: #### C MIKKI, LIVER #### [facility] [address] [place] [address] Dr. Agueda Wiley ALP [Catalytic activity/Vol] 94 U/L Normal 46-116 [facility] Comment on above: Performed By: #### C MIKKI, LIVER #### [facility] [address] [place] [address] Dr. Agueda Wiley ALT [Catalytic activity/Vol] 20 U/L Normal 14-59 [facility] Comment on above: Performed By: #### C MIKKI, LIVER #### [facility] [address] [place] [address] Dr. Agueda Wiley AST [Catalytic activity/Vol] 15 U/L Normal 15-37 [facility] Comment on above: Performed By: #### C MIKKI, LIVER #### [facility] [address] [place] [address] Dr. Agueda Wiley BILI, CONJUGATED 0.1 mg/dL Normal 0.0-0.2 [facility] Comment on above: Performed By: #### C MIKKI, LIVER #### [facility] [address] [place] [address] Dr. Agueda Wiley Bilirubin [Mass/Vol] 0.4 mg/dL Normal 0.2-1.0 [facility] Comment on above: Performed By: #### C MIKKI, LIVER #### [facility] [address] [place] [address] Dr. Agueda Wiley Globulin (S) [Mass/Vol] 4.3 g/dL Normal [facility] Comment on above: Performed By: #### C MIKKI, LIVER #### [facility] [address] [place] [address] Dr. Agueda Wiley Protein [Mass/Vol] 7.3 g/dL Normal 6.4-8.2 [facility] Comment on above: Performed By: #### C MIKKI, LIVER #### [facility] [address] [place] [address] Dr. Agueda Wiley [facility] SED RATE 105 mm/hr Critically high <=30 [facility] Comment on above: Performed By: #### R NPAB #### [facility] [address] [place] [address] Dr. Agueda Wiley CBC AUTO DIFFon 06-09-2022 BASO # 0.1 103/ul Normal 0.0-0.1 [facility] Comment on above: Performed By: #### A NAIFA #### [facility] [address] [place] [address] Dr. Agueda Wiley Basophils/100 WBC (Bld) 0.7 % Normal 0.2-2.0 [facility] Comment on above: Performed By: #### A NAIFA #### [facility] [address] [place] [address] Dr. Agueda Wiley EO # 0.4 103/ul Normal 0.0-0.7 [facility] Comment on above: Performed By: #### A NAIFA #### [facility] [address] [place] [address] Dr. Agueda Wiley Eosinophils/100 WBC (Bld) 3.6 % Normal 0.9-7.0 [facility] Comment on above: Performed By: #### A NAIFA #### [facility] [address] [place] [address] Dr. Agueda Wiley Erythrocyte distribution width (RBC) [Ratio] 13.6 % Normal 11.0-15.0 [facility] Comment on above: Performed By: #### A NAIFA #### [facility] [address] [place] [address] Dr. Agueda Wiley Hematocrit (Bld) [Volume fraction] 38.5 % Normal 36.0-48.0 [facility] Comment on above: Performed By: #### A NAIFA #### [facility] [address] [place] [address] Dr. Agueda Wiley Hemoglobin (Bld) [Mass/Vol] 12.4 g/dL Normal 12.0-16.0 [facility] Comment on above: Performed By: #### A NAIFA #### [facility] [address] [place] [address] Dr. Agueda Wiley IG # 0.07 10e3/ul Critically high 0.00-0.03 [facility] Comment on above: Performed By: #### A NAIFA #### [facility] [address] [place] [address] Dr. Agueda Wiley IG % 0.6 % Critically high 0.0-0.5 [facility] Comment on above: Performed By: #### A NAIFA #### [facility] [address] [place] [address] Dr. Agueda Wiley LYMPH # 2.1 103/ul Normal 1.2-3.8 [facility] Comment on above: Performed By: #### A NAIFA #### [facility] [address] [place] [address] Dr. Agueda Wiley Lymphocytes/100 WBC (Bld) 17.7 % Critically low 20.5-60.0 [facility] Comment on above: Performed By: #### A NAIFA #### [facility] [address] [place] [address] Dr. Agueda Wiley MANUAL DIFF REQ NO Normal [facility] Comment on above: Performed By: #### A NAIFA #### [facility] [address] [place] [address] Dr. Agueda Wiley MCH (RBC) [Entitic mass] 29.4 pg Normal 26.7-34.0 [facility] Comment on above: Performed By: #### A NAIFA #### [facility] [address] [place] [address] Dr. Agueda Wiley MCHC (RBC) [Mass/Vol] 32.2 g/dL Normal 29.9-35.2 [facility] Comment on above: Performed By: #### A NAIFA #### [facility] [address] [place] [address] Dr. Agueda Wiley MCV (RBC) [Entitic vol] 91.2 fL Normal 81.0-99.0 [facility] Comment on above: Performed By: #### A NAIFA #### [facility] [address] [place] [address] Dr. Agueda Wiley MONO # 1.1 103/ul Critically high 0.3-0.8 [facility] Comment on above: Performed By: #### A NAIFA #### [facility] [address] [place] [address] Dr. Agueda Wiley Monocytes/100 WBC (Bld) 9.4 % Normal 1.7-12.0 [facility] Comment on above: Performed By: #### A NAIFA #### [facility] [address] [place] [address] Dr. Agueda Wiley NEUT # 8.0 103/ul Critically high 1.4-6.5 [facility] Comment on above: Performed By: #### A NAIFA #### [facility] [address] [place] [address] Dr. Agueda Wiley Neutrophils/100 WBC (Bld) 68.0 % Normal 43.0-75.0 [facility] Comment on above: Performed By: #### A NAIFA #### [facility] [address] [place] [address] Dr. Agueda Wiley Platelet mean volume (Bld) [Entitic vol] 10.7 fL Normal 9.5-13.5 [facility] Comment on above: Performed By: #### A DUANE #### [facility] [address] [place] [address] Dr. Agueda Wiley PLT 417 103/ul Normal 150-450 [facility] Comment on above: Performed By: #### A DUANE #### [facility] [address] [place] [address] Dr. Agueda Wiley RBC 4.22 106/ul Normal 4.20-5.40 [facility] Comment on above: Performed By: #### A DUANE #### [facility] [address] [place] [address] Dr. Agueda Wiley WBC 11.8 103/ul Critically high 4.0-11.0 [facility] Comment on above: Performed By: #### A DUANE #### [facility] [address] [place] [address] Dr. Agueda Wiley PROF CHEM 8 (BAS METB)on Anion gap [Moles/Vol] 15.3 mmol/L Normal [facility] Comment on above: Performed By: #### Gila KAYE LIVER #### [facility] [address] [place] [address] Dr. Agueda Wiley Calcium [Mass/Vol] 8.8 mg/dL Normal 8.5-10.1 [facility] Comment on above: Performed By: #### Gila KAYE, LIVER #### [facility] [address] [place] [address] Dr. Agueda Wiley Chloride [Moles/Vol] 106 mmol/L Normal 98-107 [facility] Comment on above: Performed By: #### C MIKKI, LIVER #### [facility] [address] [place] [address] Dr. Agueda Wiley CO2 [Moles/Vol] 23.7 mmol/L Normal 21.0-32.0 [facility] Comment on above: Performed By: #### Gila KAYE, LIVER #### [facility] [address] [address] [address] Agueda Wiley Creatinine [Mass/Vol] 1.10 mg/dL Critically high 0.55-1.02 [facility] Comment on above: Performed By: #### C MIKKI, LIVER #### [facility] [address] [address] [address] Agueda Wiley EGFR-AF SOMALI 60 mL/min/1.73m2 Normal >=60 [facility] Comment on above: Performed By: #### C MIKKI, LIVER #### [facility] [address] [place] [address] Dr. Agueda Wiley EGFR-NON AF SOMALI 50 mL/min/1.73m2 Critically low >=60 [facility] Comment on above: Performed By: #### C MIKKI, LIVER #### [facility] [address] [place] [address] Dr. Agueda Wiley Glucose [Mass/Vol] 126 mg/dL Critically high 74-106 T [facility] Comment on above: Performed By: #### C MIKKI, LIVER #### [facility] [address] [place] [address] Dr. Agueda Wiley Potassium [Moles/Vol] 4.0 mmol/L Normal 3.5-5.1 [facility] Comment on above: Performed By: #### C MIKKI, LIVER #### [facility] [address] [place] [address] Dr. Agueda Wiley Sodium [Moles/Vol] 141 mmol/L Normal 136-145 [facility] Comment on above: Performed By: #### C MIKKI, LIVER #### [facility] [address] [place] [address] Dr. Agueda Wiley Urea nitrogen [Mass/Vol] 14.0 mg/dL Normal 7.0-18.0 [facility] Comment on above: Performed By: #### C MIKKI, LIVER #### [facility] [address] [place] [address] Dr. Agueda Wiley Urea nitrogen/Creatinine [Mass ratio] 12.7 mg/mg Normal [facility] Comment on above: Performed By: #### C MIKKI, LIVER #### [facility] [address] [address] [address] Agueda Wiley XR femur LT 2V*on 05-28-2022 XR femur LT 2V* [facility] [employer] Other XR femur LT 2V* [facility] [employer] Other XR femur LT 2V* [address] [facility] No [facility] [employer] Other XR femur LT 2V* [place] [address] [address] [facility] [employer] Other XR femur LT 2V* XRay Report [facility] [employer] Other XR femur LT 2V* Signed [facility] [employer] Other XR femur LT 2V* Patient: Reba Gregory MR#: [id number] [facility] [employer] Other XR femur LT 2V* : 1955 Acct:[id number] [employer] Other XR femur LT 2V* Age/Sex: 66 / F ADM Date: 05/28/22 [employer] [employer] Other XR femur LT 2V* Loc: SOXD Room: Type : [facility] [employer] Other XR femur LT 2V* Attending Dr: Nabor Nelson II, MD [employer] Other XR femur LT 2V* Copies to: Nabor Nelson MD [employer] Other XR femur LT 2V* Ordering Provider: Ragini Nelson MD [employer] Other XR femur LT 2V* Date of Service: 05/28/22 [employer] Other XR femur LT 2V* XR/XR femur LT 2V*: Aftercare following joint replacement surgery [employer] Other XR femur LT 2V* ([id number]) XR/XR tibia fibula LT 2V*: Aftercare following joint replacement surgery [employer] Other XR femur LT 2V* ([id number]) XR/XR knee LT 2V: Aftercare following joint replacement surgery [employer] Other XR femur LT 2V* XR tibia fibula LT 2 V*, XR knee LT 2V, XR femur LT 2V* 05/28/2022 8:18 AM [employer] Other XR femur LT 2V* SIGNS AND SYMPTOMS: Aftercare following joint replacement surgery [employer] Other XR femur LT 2V* PROTOCOL: Frontal radiographs of the left femur, left knee, and left tibia and fibula [employer] Other XR femur LT 2V* COMPARISON: 04/16/2022 [employer] Other XR femur LT 2V* FINDINGS: [employer] [facility] [employer] Other XR femur LT 2V* The bones are in val tomic alignment. There is total left knee arthroplasty hardware without [employer] Other XR femur LT 2V* hardware complicatio n or malalignment. No fracture or dislocation. The visualized bony ring of the [employer] Other XR femur LT 2V* pelvis is grossly intact. [employer] Other XR femur LT 2V* X R/XR tibia fibula LT 2V* [employer] Other XR femur LT 2V* IMPRESSION: [employer] Other XR femur LT 2V* Status post total le ft knee arthroplasty hardware placement without hardware complication or [employer] Other XR femur LT 2V* malalignment. [employer] Other XR femur LT 2V* Impression dictated by: Michael Benítez M.D.05/28/2022 11:51 AM [employer] Other XR femur LT 2V* Dictation Location: [id number] [employer] Other XR femur LT 2V* Transcribed By: PWS 05/28/22 1151 [employer] Other XR femur LT 2V* Dictated By: Michael Benítez II, MD 05/28/22 1149 [employer] Other XR femur LT 2V* Signed By: [employer] [facility] [employer] Other XR femur LT 2V* 05/28/22 1154 [employer] Other CBC W MANUAL DIFFon 05-20-20 ATYPICAL LYMPH # Normal [facility] Comment on above: Performed By: #### A NAIFA #### [facility] [address] [place] [address] Dr. Agueda Wiley ATYPICAL LYMPH % Normal [facility] Comment on above: Performed By: #### A NAIFA #### [facility] [address] [place] [address] Dr. Agueda Wiley BAND # Normal 0.0-0.3 [facility] Comment on above: Performed By: #### A NAIFA #### [facility] [address] [place] [address] Dr. Agueda Wiley BAND % Normal 0-5 [facility] Comment on above: Performed By: #### A NAIFA #### [facility] [address] [place] [address] Dr. Agueda Wiley BASOM # 0.15 103/ul Critically high 0.00-0.10 [facility] Comment on above: Performed By: #### A NAIFA #### [facility] [address] [place] [address] Dr. Agueda ORTEGAOM % 1.0 % Normal 0.2-2.0 [facility] Comment on above: Performed By: #### A NAIFA #### [facility] [address] [place] [address] Dr. Agueda Wiley BLAST # Normal [facility] Comment on above: Performed By: #### A NAIFA #### [facility] [address] [place] [address] Dr. Agueda Wiley BLAST % Normal [facility] Comment on above: Performed By: #### A NAIFA #### [facility] [address] [place] [address] Dr. Agueda Wiley CORRECTED WBC Normal 4.0-11.0 [facility] Comment on above: Performed By: #### A NAIFA #### [facility] [address] [place] [address] Dr. Aguead Wiley EOS # 0.00 103/ul Normal 0.00-0.70 [facility] Comment on above: Performed By: #### A NAIFA #### [facility] [address] [place] [address] Dr. Agueda Wiley EOS% 0.0 % Critically low 0.9-7.0 [facility] Comment on above: Performed By: #### A NAIFA #### [facility] [facility] [address] [place] [address] Dr. Agueda Wiley HCT 34.4 % Critically low 36.0-48.0 [facility] Comment on above: Performed By: #### A NAIFA #### [facility] [address] [place] [address] Dr. Agueda Wiley HGB 11.1 g/dl Critically low 12.0-16.0 [facility] Comment on above: Performed By: #### A NAIFA #### [facility] [address] [place] [address] Dr. Agueda Wiley LYMPHM # 2.31 103/ul Normal 1.20-3.80 [facility] Comment on above: Performed By: #### A NAIFA #### [facility] [address] [place] [address] Dr. Agueda Wiley LYMPHM% 15.0 % Critically low 20.5-60.0 [facility] Comment on above: Performed By: #### A NAIFA #### [facility] [address] [place] [address] Dr. Agueda Wiley MCH 29.1 pg Normal 26.7-34.0 [facility] Comment on above: Performed By: #### A NAIFA #### [facility] [address] [place] [address] Dr. Agueda Wiley MCHC 32.3 g/dl Normal 29.9-35.2 [facility] Comment on above: Performed By: #### A NAIFA #### [facility] [address] [place] [address] Dr. Agueda Wiley MCV 90.3 fL Normal 81.0-99.0 [facility] Comment on above: Performed By: #### A NAIFA #### [facility] [address] [place] [address] Dr. Agueda Wiley METAMYELOCYTE # Normal [facility] Comment on above: Performed By: #### A NAIFA #### [facility] [address] [place] [address] Dr. Agueda Wiley METAMYELOCYTE % Normal [facility] Comment on above: Performed By: #### A NAIFA #### [facility] [address] [place] [address] Dr. Agueda Wiley MONOM# 1.39 103/ul Critically high 0.30-0.80 [facility] Comment on above: Performed By: #### A NAIFA #### [facility] [address] [place] [address] Dr. Agueda Wiley MONOM% 9.0 % Normal 1.7-12.0 [facility] Comment on above: Performed By: #### A NAIFA #### [facility] [address] [place] [address] Dr. Agueda Wiley MPV 11.0 fL Normal 9.5-13.5 [facility] Comment on above: Performed By: #### A NAIFA #### [facility] [address] [place] [address] Dr. Agueda Wiley MYELOCYTE # Normal [facility] Comment on above: Performed By: #### A NAIFA #### [facility] [address] [address] [address] Agueda Wiley MYELOCYTE % Normal [facility] Comment on above: Performed By: #### A NAIFA #### [facility] [address] [address] [address] Agueda Wiley NRBC Normal [facility] Comment on above: Performed By: #### A NAIFA #### [facility] [address] [address] [address] Agueda Wiley PLT 333 103/ul Normal 150-450 [facility] Comment on above: Performed By: #### A NAIFA #### [facility] [address] [place] [address] Dr. Agueda Wiley RBC 3.81 106/ul Critically low 4.20-5.40 [facility] Comment on above: Performed By: #### A NAIFA #### [facility] [address] [place] [address] Dr. Agueda Wiley RDW 12.8 % Normal 11.0-15.0 [facility] Comment on above: Performed By: #### A NAIFA #### [facility] [address] [place] [address] Dr. Agueda Wiley SEG # 11.55 103/ul Critically high 1.40-6.50 [facility] Comment on above: Performed By: #### A NAIFA #### [facility] [address] [place] [address] Dr. Agueda Wiley SEG % 75.0 % Normal 43.0-75.0 [facility] Comment on above: Performed By: #### A NAIFA #### [facility] [address] [place] [address] Dr. Agueda Wiley WBC 15.4 103/ul Critically high 4.0-11.0 [facility] Comment on above: Performed By: #### A NAIFA #### [facility] [address] [place] [address] Dr. Agueda Wiley PROF 14(COMP METB)on 022 Albumin [Mass/Vol] 1.9 g/dL Critically low 3.4-5.0 [facility] Comment on above: Performed By: #### R NPAB #### [facility] [address] [place] [address] Dr. Agueda Wiley Albumin/Globulin [Mass ratio] 0.7 {ratio} Normal [facility] Comment on above: Performed By: #### R NPAB #### [facility] [address] [place] [address] Dr. Agueda Wiley ALP [Catalytic activity/Vol] 75 U/L Normal 46-116 [facility] Comment on above: Performed By: #### R NPAB #### [facility] [address] [place] [address] Dr. Agueda Wiley ALT [Catalytic activity/Vol] 18 U/L Normal 14-59 [facility] Comment on above: Performed By: #### R NPAB #### [facility] [address] [place] [address] Dr. Agueda Wiley Anion gap [Moles/Vol] 12.4 mmol/L Normal [facility] Comment on above: Performed By: #### R NPAB #### [facility] [address] [place] [address] Dr. Agueda Wiley AST [Catalytic activity/Vol] 20 U/L Normal 15-37 [facility] Comment on above: Performed By: #### R NPAB #### [facility] [address] [place] [address] Dr. Agueda Wiley Bilirubin [Mass/Vol] 0.2 mg/dL Normal 0.2-1.0 [facility] Comment on above: Performed By: #### R NPAB #### [facility] [address] [place] [address] Dr. Agueda Wiley Calcium [Mass/Vol] 7.7 mg/dL Critically low 8.5-10.1 [facility] Comment on above: Performed By: #### R NPAB #### [facility] [address] [place] [address] Dr. Agueda Wiley Chloride [Moles/Vol] 108 mmol/L Critically high 98-107 [facility] Comment on above: Performed By: #### R NPAB #### [facility] [address] [address] [address] Agueda Wiley CO2 [Moles/Vol] 21.9 mmol/L Normal 21.0-32.0 [facility] Comment on above: Performed By: #### R NPAB #### [facility] [address] [address] [address] Agueda Wiley Creatinine [Mass/Vol] 0.81 mg/dL Normal 0.55-1.02 [facility] Comment on above: Performed By: #### R NPAB #### [facility] [address] [place] [address] Dr. Agueda Wiley EGFR-AF SOMALI >60 Normal >=60 [facility] Comment on above: Performed By: #### R NPAB #### [facility] [address] [place] [address] Dr. Agueda Wiley EGFR-NON AF SOMALI >60 Normal >=60 [facility] Comment on above: Performed By: #### R NPAB #### [facility] [address] [address] [address] Agueda Wiley Globulin (S) [Mass/Vol] 2.6 g/dL Normal [facility] Comment on above: Performed By: #### R NPAB #### [facility] [address] [address] [address] Agueda Wiley Glucose [Mass/Vol] 102 mg/dL Normal 74-106 [facility] Comment on above: Performed By: #### R NPAB #### [facility] [address] [address] [address] Agueda Wiley Potassium [Moles/Vol] 3.3 mmol/L Critically low 3.5-5.1 [facility] Comment on above: Performed By: #### R NPAB #### [facility] [address] [place] [address] Dr. Agueda Wiley Protein [Mass/Vol] 4.5 g/dL Critically low 6.4-8.2 [facility] Comment on above: Performed By: #### R NPAB #### [facility] [address] [place] [address] Dr. Agueda Wiley Sodium [Moles/Vol] 139 mmol/L Normal 136-145 [facility] Comment on above: Performed By: #### R NPAB #### [facility] [address] [place] [address] Dr. Agueda Wiley Urea nitrogen [Mass/Vol] 7.0 mg/dL Normal 7.0-18.0 [facility] Comment on above: Performed By: #### R NPAB #### [facility] [address] [place] [address] Dr. Agueda Wiley Urea nitrogen/Creatinine [Mass ratio] 8.6 mg/mg Normal [facility] Comment on above: Performed By: #### R NPAB #### [facility] [address] [place] [address] Dr. Agueda Wiley CBC AUTO DIFFon 05-19-2022 BASO # 0.1 103/ul Normal 0.0-0.1 [facility] Comment on above: Performed By: #### C MIKKI, LIVER #### [facility] [address] [place] [address] Dr. Agueda Wiley Basophils/100 WBC (Bld) 0.4 % Normal 0.2-2.0 [facility] Comment on above: Performed By: #### C MIKKI, LIVER #### [facility] [address] [place] [address] Dr. Agueda Wiley EO # 0.3 103/ul Normal 0.0-0.7 [facility] Comment on above: Performed By: #### C MIKKI, LIVER #### [facility] [address] [place] [address] Dr. Agueda Wiley Eosinophils/100 WBC (Bld) 1.5 % Normal 0.9-7.0 [facility] Comment on above: Performed By: #### C MIKKI, LIVER #### [facility] [address] [place] [address] Dr. Agueda Wiley Erythrocyte distribution width (RBC) [Ratio] 12.5 % Normal 11.0-15.0 [facility] Comment on above: Performed By: #### C MIKKI, LIVER #### [facility] [address] [place] [address] Dr. Agueda Wiley Hematocrit (Bld) [Volume fraction] 37.3 % Normal 36.0-48.0 [facility] Comment on above: Performed By: #### C MIKKI, LIVER #### [facility] [address] [place] [address] Dr. Agueda Wiley Hemoglobin (Bld) [Mass/Vol] 12.0 g/dL Normal 12.0-16.0 [facility] Comment on above: Performed By: #### C MIKKI, LIVER #### [facility] [address] [place] [address] Dr. Agueda Wiley IG # 0.59 10e3/ul Critically high 0.00-0.03 [facility] Comment on above: Performed By: #### C MIKKI, LIVER #### [facility] [address] [place] [address] Dr. Agueda Wiley IG % 3.1 % Critically high 0.0-0.5 [facility] Comment on above: Performed By: #### C MIKKI, LIVER #### [facility] [address] [place] [address] Dr. Agueda Wiley LYMPH # 1.7 103/ul Normal 1.2-3.8 [facility] Comment on above: Performed By: #### C MIKKI, LIVER #### [facility] [address] [place] [address] Dr. Agueda Wiley Lymphocytes/100 WBC (Bld) 8.7 % Critically low 20.5-60.0 [facility] Comment on above: Performed By: #### C MIKKI, LIVER #### [facility] [address] [place] [address] Dr. Agueda Wiley MANUAL DIFF REQ NO Normal [facility] Comment on above: Performed By: #### C MIKKI, LIVER #### [facility] [address] [place] [address] Dr. Agueda Wiley MCH (RBC) [Entitic mass] 28.9 pg Normal 26.7-34.0 [facility] Comment on above: Performed By: #### C MIKKI, LIVER #### [facility] [address] [place] [address] Dr. Agueda Wiley MCHC (RBC) [Mass/Vol] 32.2 g/dL Normal 29.9-35.2 [facility] Comment on above: Performed By: #### C MIKKI, LIVER #### [facility] [address] [place] [address] Dr. Agueda Wiley MCV (RBC) [Entitic vol] 89.9 fL Normal 81.0-99.0 [facility] Comment on above: Performed By: #### C MIKKI, LIVER #### [facility] [address] [place] [address] Dr. Agueda Wiley MONO # 1.3 103/ul Critically high 0.3-0.8 [facility] Comment on above: Performed By: #### C MIKKI, LIVER #### [facility] [address] [place] [address] Dr. Agueda Wiley Monocytes/100 WBC (Bld) 6.8 % Normal 1.7-12.0 [facility] Comment on above: Performed By: #### C MIKKI, LIVER #### [facility] [address] [place] [address] Dr. Agueda Wiley NEUT # 15.2 103/ul Critically high 1.4-6.5 [facility] Comment on above: Performed By: #### C MIKKI, LIVER #### [facility] [address] [place] [address] Dr. Agueda Wiley Neutrophils/100 WBC (Bld) 79.5 % Critically high 43.0-75.0 [facility] Comment on above: Performed By: #### C MIKKI, LIVER #### [facility] [address] [place] [address] Dr. Agueda Wiley Platelet mean volume (Bld) [Entitic vol] 10.3 fL Normal 9.5-13.5 [facility] Comment on above: Performed By: #### C MIKKI, LIVER #### [facility] [address] [address] [address] Agueda Wiley PLT 328 103/ul Normal 150-450 [facility] Comment on above: Performed By: #### C MIKKI, LIVER #### [facility] [address] [address] [address] Agueda Wiley RBC 4.15 106/ul Critically low 4.20-5.40 [facility] Comment on above: Performed By: #### C MIKKI, LIVER #### [facility] [address] [address] [address] Agueda Wiley WBC 19.1 103/ul Critically high 4.0-11.0 [facility] Comment on above: Performed By: #### C MIKKI, LIVER #### [facility] [address] [place] [address] Dr. Agueda Wiley PROF 14(COMP METB)on 022 Albumin [Mass/Vol] 2.0 g/dL Critically low 3.4-5.0 [facility] Comment on above: Performed By: #### R NPAB #### [facility] [address] [place] [address] Dr. Agueda Wiley Albumin/Globulin [Mass ratio] 0.7 {ratio} Normal [facility] Comment on above: Performed By: #### R NPAB #### [facility] [address] [place] [address] Dr. Agueda Wiley ALP [Catalytic activity/Vol] 94 U/L Normal 46-116 [facility] Comment on above: Performed By: #### R NPAB #### [facility] [address] [address] [address] Agueda Wiley ALT [Catalytic activity/Vol] 16 U/L Normal 14-59 [facility] Comment on above: Performed By: #### R NPAB #### [facility] [address] [place] [address] Dr. Agueda Wiley Anion gap [Moles/Vol] 13.3 mmol/L Normal [facility] Comment on above: Performed By: #### R NPAB #### [facility] [address] [address] [address] Agueda Wiley AST [Catalytic activity/Vol] 11 U/L Critically low 15-37 [facility] Comment on above: Performed By: #### R NPAB #### [facility] [address] [address] [address] Agueda Wiley Bilirubin [Mass/Vol] 0.3 mg/dL Normal 0.2-1.0 [facility] Comment on above: Performed By: #### R NPAB #### [facility] [address] [address] [address] Agueda Wiley Calcium [Mass/Vol] 7.8 mg/dL Critically low 8.5-10.1 [facility] Comment on above: Performed By: #### R NPAB #### [facility] [address] [address] [address] Agueda Wiley Chloride [Moles/Vol] 107 mmol/L Normal 98-107 [facility] Comment on above: Performed By: #### R NPAB #### [facility] [address] [address] [address] Agueda Wiley CO2 [Moles/Vol] 20.0 mmol/L Critically low 21.0-32.0 [facility] Comment on above: Performed By: #### R NPAB #### [facility] [address] [address] [address] Agueda Wiley Creatinine [Mass/Vol] 0.81 mg/dL Normal 0.55-1.02 [facility] Comment on above: Performed By: #### R NPAB #### [facility] [address] [address] [address] Agueda Wiley EGFR-AF SOMALI >60 Normal >=60 [facility] Comment on above: Performed By: #### R NPAB #### [facility] [address] [address] [address] Agueda Wiley EGFR-NON AF SOMALI >60 Normal >=60 [facility] Comment on above: Performed By: #### R NPAB #### [facility] [address] [address] [address] Agueda Wiley Globulin (S) [Mass/Vol] 3.0 g/dL Normal [facility] Comment on above: Performed By: #### R NPAB #### [facility] [address] [address] [address] Agueda Wiley Glucose [Mass/Vol] 113 mg/dL Critically high 74-106 [facility] Comment on above: Performed By: #### R NPAB #### [facility] [address] [address] [address] Agueda Wiley Potassium [Moles/Vol] 3.3 mmol/L Critically low 3.5-5.1 [facility] Comment on above: Performed By: #### R NPAB #### [facility] [address] [address] [address] Agueda Wiley Protein [Mass/Vol] 5.0 g/dL Critically low 6.4-8.2 [facility] Comment on above: Performed By: #### R NPAB #### [facility] [address] [address] [address] Agueda Wiley Sodium [Moles/Vol] 137 mmol/L Normal 136-145 [facility] Comment on above: Performed By: #### R NPAB #### [facility] [address] [place] [address] Dr. Agueda Wiley Urea nitrogen [Mass/Vol] 11.0 mg/dL Normal 7.0-18.0 [facility] Comment on above: Performed By: #### R NPAB #### [facility] [address] [address] [address] Agueda Wiley Urea nitrogen/Creatinine [Mass ratio] 13.6 mg/mg Normal [facility] Comment on above: Performed By: #### R NPAB #### [facility] [address] [address] [address] Agueda Wiley CBC W MANUAL DIFFon 05-18-20 22 ATYPICAL LYMPH # 0.23 103/ul Normal [facility] Comment on above: Performed By: #### C MIKKI, LIVER #### [facility] [address] [place] [address] Dr. Agueda Wiley ATYPICAL LYMPH % 1 % Normal [facility] Comment on above: Performed By: #### C MIKKI, LIVER #### [facility] [address] [place] [address] Dr. Agueda Wiley BAND # 0.0 103/ul Normal 0.0-0.3 [facility] Comment on above: Performed By: #### C MIKKI, LIVER #### [facility] [address] [place] [address] Dr. Agueda Wiley BAND % 0 % Normal 0-5 [facility] Comment on above: Performed By: #### C MIKKI, LIVER #### [facility] [address] [place] [address] Dr. Agueda Wiley BASOM # 0.00 103/ul Normal 0.00-0.10 [facility] Comment on above: Performed By: #### C MIKKI, LIVER #### [facility] [address] [place] [address] Dr. Agueda Wiley BASOM % 0.0 % Critically low 0.2-2.0 [facility] Comment on above: Performed By: #### C MIKKI, LIVER #### [facility] [address] [place] [address] Dr. Agueda Wiley BLAST # Normal [facility] Comment on above: Performed By: #### C MIKKI, LIVER #### [facility] [address] [place] [address] Dr. Agueda Wiley BLAST % Normal [facility] Comment on above: Performed By: #### C MIKKI, LIVER #### [facility] [address] [place] [address] Dr. Agueda Wiley CORRECTED WBC Normal 4.0-11.0 [facility] Comment on above: Performed By: #### C MIKKI, LIVER #### [facility] [address] [place] [address] Dr. Agueda Wiley EOS # 0.23 103/ul Normal 0.00-0.70 [facility] Comment on above: Performed By: #### C MIKKI, LIVER #### [facility] [address] [address] [address] Agueda Wiley EOS% 1.0 % Normal 0.9-7.0 [facility] Comment on above: Performed By: #### C MIKKI, LIVER #### [facility] [address] [address] [address] Agueda Wiley HCT 35.7 % Critically low 36.0-48.0 [facility] Comment on above: Performed By: #### C MIKKI, LIVER #### [facility] [address] [address] [address] Agueda Wiley HGB 11.6 g/dl Critically low 12.0-16.0 [facility] Comment on above: Performed By: #### C MIKKI, LIVER #### [facility] [address] [address] [address] Agueda Wiley LYMPHM # 1.41 103/ul Normal 1.20-3.80 [facility] Comment on above: Performed By: #### C MIKKI, LIVER #### [facility] [address] [address] [address] Agueda Wiley LYMPHM% 6.0 % Critically low 20.5-60.0 [facility] Comment on above: Performed By: #### C MIKKI, LIVER #### [facility] [address] [address] [address] Agueda Wiley MCH 29.4 pg Normal 26.7-34.0 [facility] Comment on above: Performed By: #### C MIKKI, LIVER #### [facility] [address] [address] [address] Agueda Wiley MCHC 32.5 g/dl Normal 29.9-35.2 [facility] Comment on above: Performed By: #### C MIKKI, LIVER #### [facility] [address] [address] [address] Agueda Wiley MCV 90.4 fL Normal 81.0-99.0 [facility] Comment on above: Performed By: #### C MIKKI, LIVER #### [facility] [address] [address] [address] Agueda Wiley METAMYELOCYTE # Normal [facility] Comment on above: Performed By: #### C MIKKI, LIVER #### [facility] [address] [address] [address] Agueda Wiley METAMYELOCYTE % Normal [facility] Comment on above: Performed By: #### C MIKKI, LIVER #### [facility] [address] [address] [address] Agueda Wiley MONOM# 0.94 103/ul Critically high 0.30-0.80 [facility] Comment on above: Performed By: #### C MIKKI, LIVER #### [facility] [address] [place] [address] Dr. Agueda Wiley MONOM% 4.0 % Normal 1.7-12.0 [facility] Comment on above: Performed By: #### C MIKKI, LIVER #### [facility] [address] [place] [address] Dr. Agueda Wiley MPV 10.5 fL Normal 9.5-13.5 [facility] Comment on above: Performed By: #### C MIKKI, LIVER #### [facility] [address] [place] [address] Dr. Agueda Wiley MYELOCYTE # Normal [facility] Comment on above: Performed By: #### C MIKKI, LIVER #### [facility] [address] [place] [address] Dr. Agueda Wiley MYELOCYTE % Normal [facility] Comment on above: Performed By: #### C MIKKI, LIVER #### [facility] [address] [place] [address] Dr. Agueda Wiley NRBC Normal [facility] Comment on above: Performed By: #### C MIKKI, LIVER #### [facility] [address] [place] [address] Dr. Agueda Wiley PLT 306 103/ul Normal 150-450 [facility] Comment on above: Performed By: #### C MIKKI, LIVER #### [facility] [address] [address] [address] Agueda Wiley RBC 3.95 106/ul Critically low 4.20-5.40 [facility] Comment on above: Performed By: #### C MIKKI, LIVER #### [facility] [address] [address] [address] Agueda Wiley RDW 12.6 % Normal 11.0-15.0 [facility] Comment on above: Performed By: #### C MIKKI, LIVER #### [facility] [address] [address] [address] Agueda Wiley SEG # 20.68 103/ul Critically high 1.40-6.50 [facility] Comment on above: Performed By: #### C MIKKI, LIVER #### [facility] [address] [address] [address] Agueda Wiley SEG % 88.0 % Critically high 43.0-75.0 [facility] Comment on above: Performed By: #### C MIKKI, LIVER #### [facility] [address] [address] [address] Agueda Wiley WBC 23.5 103/ul Critically high 4.0-11.0 [facility] Comment on above: Performed By: #### C MIKKI, LIVER #### [facility] [address] [address] [address] Agueda Wiley PROF 14(COMP METB)on 022 Albumin [Mass/Vol] 1.8 g/dL Critically low 3.4-5.0 [facility] Comment on above: Performed By: #### C MIKKI, LIVER #### [facility] [address] [address] [address] Agueda Wiley Albumin/Globulin [Mass ratio] 0.6 {ratio} Normal [facility] Comment on above: Performed By: #### C MIKKI, LIVER #### [facility] [address] [address] [address] Agueda Wiley ALP [Catalytic activity/Vol] 107 U/L Normal 46-116 [facility] Comment on above: Performed By: #### C MIKKI, LIVER #### [facility] [address] [address] [address] Agueda Wiley ALT [Catalytic activity/Vol] 20 U/L Normal 14-59 [facility] Comment on above: Performed By: #### C MIKKI, LIVER #### [facility] [address] [address] [address] Agueda Wiley Anion gap [Moles/Vol] 14.6 mmol/L Normal [facility] Comment on above: Performed By: #### C MIKKI, LIVER #### [facility] [address] [address] [address] Agueda Wiley AST [Catalytic activity/Vol] 12 U/L Critically low 15-37 [facility] Comment on above: Performed By: #### C MIKKI, LIVER #### [facility] [address] [address] [address] Agueda Wiley Bilirubin [Mass/Vol] 0.3 mg/dL Normal 0.2-1.0 [facility] Comment on above: Performed By: #### C MIKKI, LIVER #### [facility] [address] [address] [address] Agueda Wiley Calcium [Mass/Vol] 7.5 mg/dL Critically low 8.5-10.1 [facility] Comment on above: Performed By: #### C MIKKI, LIVER #### [facility] [address] [address] [address] Agueda Wiley Chloride [Moles/Vol] 107 mmol/L Normal 98-107 [facility] Comment on above: Performed By: #### C MIKKI, LIVER #### [facility] [address] [address] [address] Agueda Wiley CO2 [Moles/Vol] 20.4 mmol/L Critically low 21.0-32.0 [facility] Comment on above: Performed By: #### C MIKKI, LIVER #### [facility] [address] [address] [address] Agueda Wiley Creatinine [Mass/Vol] 0.96 mg/dL Normal 0.55-1.02 [facility] Comment on above: Performed By: #### C MIKKI, LIVER #### [facility] [address] [address] [address] Agueda Wiley EGFR-AF SOMALI >60 Normal >=60 [facility] Comment on above: Performed By: #### C MIKKI, LIVER #### [facility] [address] [address] [address] Agueda Wiley EGFR-NON AF SOMALI 58 mL/min/1.73m2 Critically low >=60 [facility] Comment on above: Performed By: #### C MIKKI, LIVER #### [facility] [address] [address] [address] Agueda Wiley Globulin (S) [Mass/Vol] 2.9 g/dL Normal [facility] Comment on above: Performed By: #### C MIKKI, LIVER #### [facility] [address] [place] [address] Dr. Agueda Wiley Glucose [Mass/Vol] 93 mg/dL Normal 74-106 [facility] Comment on above: Performed By: #### C MIKKI, LIVER #### [facility] [address] [address] [address] Agueda Wiley Potassium [Moles/Vol] 3.0 mmol/L Critically low 3.5-5.1 [facility] Comment on above: Performed By: #### C MIKKI, LIVER #### [facility] [address] [place] [address] Dr. Agueda Wiley Protein [Mass/Vol] 4.7 g/dL Critically low 6.4-8.2 [facility] Comment on above: Performed By: #### C MIKKI, LIVER #### [facility] [address] [place] [address] Dr. Agueda Wiley Sodium [Moles/Vol] 138 mmol/L Normal 136-145 [facility] Comment on above: Performed By: #### C MIKKI, LIVER #### [facility] [address] [place] [address] Dr. Agueda Wiley Urea nitrogen [Mass/Vol] 18.0 mg/dL Normal 7.0-18.0 [facility] Comment on above: Performed By: #### C MIKKI, LIVER #### [facility] [address] [place] [address] Dr. Agueda Wiley Urea nitrogen/Creatinine [Mass ratio] 18.8 mg/mg Normal [facility] Comment on above: Performed By: #### C MIKKI, LIVER #### [facility] [address] [place] [address] Dr. Agueda Wiley AMYLASEon 05-17-2022 Amylase [Catalytic activity/Vol] 79 U/L Normal 25-115 [facility] Comment on above: Performed By: #### C SUITE #### [facility] [address] [place] [address] Dr. Agueda Wiley CBC W MANUAL DIFFon 05-17-20 ATYPICAL LYMPH # Normal [facility] Comment on above: Performed By: #### C MIKKI, LIVER #### [facility] [address] [place] [address] Dr. Agueda Wiley ATYPICAL LYMPH % Normal [facility] Comment on above: Performed By: #### C MIKKI, LIVER #### [facility] [address] [place] [address] Dr. Agueda Wiley BAND # Normal 0.0-0.3 [facility] Comment on above: Performed By: #### C MIKKI, LIVER #### [facility] [address] [place] [address] Dr. Agueda Wiley BAND % Normal 0-5 [facility] Comment on above: Performed By: #### C MIKKI, LIVER #### [facility] [address] [place] [address] Dr. Agueda Wiley BASOM # 0.00 103/ul Normal 0.00-0.10 [facility] Comment on above: Performed By: #### C MIKKI, LIVER #### [facility] [address] [place] [address] Dr. Agueda Wiley BASOM % 0.0 % Critically low 0.2-2.0 [facility] Comment on above: Performed By: #### C MIKKI, LIVER #### [facility] [address] [place] [address] Dr. Agueda Wiley BLAST # Normal [facility] Comment on above: Performed By: #### C MIKKI, LIVER #### [facility] [address] [place] [address] Dr. Agueda Wiley BLAST % Normal [facility] Comment on above: Performed By: #### C MIKKI, LIVER #### [facility] [address] [place] [address] Dr. Agueda Wiley CORRECTED WBC Normal 4.0-11.0 [facility] Comment on above: Performed By: #### C MIKKI, LIVER #### [facility] [address] [place] [address] Dr. Agueda Wiley EOS # 0.00 103/ul Normal 0.00-0.70 [facility] Comment on above: Performed By: #### C MIKKI, LIVER #### [facility] [address] [place] [address] Dr. Agueda Wiley EOS% 0.0 % Critically low 0.9-7.0 [facility] Comment on above: Performed By: #### C MIKKI, LIVER #### [facility] [address] [place] [address] Dr. Agueda Wiley HCT 43.3 % Normal 36.0-48.0 [facility] Comment on above: Performed By: #### C MIKKI, LIVER #### [facility] [address] [place] [address] Dr. Agueda Wiley HGB 14.4 g/dl Normal 12.0-16.0 [facility] Comment on above: Performed By: #### C MIKKI, LIVER #### [facility] [address] [place] [address] Dr. Agueda Wiley LYMPHM # 2.96 103/ul Normal 1.20-3.80 [facility] Comment on above: Performed By: #### C MIKKI, LIVER #### [facility] [address] [place] [address] Dr. Agueda Wiley LYMPHM% 10.0 % Critically low 20.5-60.0 [facility] Comment on above: Performed By: #### C MIKKI, LIVER #### [facility] [address] [place] [address] Dr. gAueda Wiley MCH 29.4 pg Normal 26.7-34.0 [facility] Comment on above: Performed By: #### C MIKKI, LIVER #### [facility] [address] [place] [address] Dr. Agueda Wiley MCHC 33.3 g/dl Normal 29.9-35.2 [facility] Comment on above: Performed By: #### C MIKKI, LIVER #### [facility] [address] [place] [address] Dr. Agueda Wiley MCV 88.5 fL Normal 81.0-99.0 [facility] Comment on above: Performed By: #### C MIKKI, LIVER #### [facility] [address] [place] [address] Dr. Agueda Wiley METAMYELOCYTE # Normal [facility] Comment on above: Performed By: #### C MIKKI, LIVER #### [facility] [address] [place] [address] Dr. Agueda Wiley METAMYELOCYTE % Normal [facility] Comment on above: Performed By: #### C MIKKI, LIVER #### [facility] [address] [place] [address] Dr. Agueda Wiley MONOM# 1.78 103/ul Critically high 0.30-0.80 [facility] Comment on above: Performed By: #### C MIKKI, LIVER #### [facility] [address] [place] [address] Dr. Agueda Wiley MONOM% 6.0 % Normal 1.7-12.0 [facility] Comment on above: Performed By: #### C MIKKI, LIVER #### [facility] [address] [place] [address] Dr. Agueda Wiley MPV 10.6 fL Normal 9.5-13.5 [facility] Comment on above: Performed By: #### C MIKKI, LIVER #### [facility] [address] [address] [address] Agueda Wiley MYELOCYTE # Normal [facility] Comment on above: Performed By: #### C MIKKI, LIVER #### [facility] [address] [address] [address] Agueda Wiley MYELOCYTE % Normal [facility] Comment on above: Performed By: #### C MIKKI, LIVER #### [facility] [address] [address] [address] Agueda Wiley NRBC Normal [facility] Comment on above: Performed By: #### C MIKKI, LIVER #### [facility] [address] [address] [address] Agueda Wiley PLT 383 103/ul Normal 150-450 [facility] Comment on above: Performed By: #### C MIKKI, LIVER #### [facility] [address] [address] [address] Agueda Wiley RBC 4.89 106/ul Normal 4.20-5.40 [facility] Comment on above: Performed By: #### C MIKKI, LIVER #### [facility] [address] [address] [address] Agueda Wiley RDW 12.7 % Normal 11.0-15.0 [facility] Comment on above: Performed By: #### C MIKKI, LIVER #### [facility] [address] [address] [address] Agueda Wiley SEG # 24.86 103/ul Critically high 1.40-6.50 [facility] Comment on above: Performed By: #### C MIKKI, LIVER #### [facility] [address] [address] [address] Agueda Wiley SEG % 84.0 % Critically high 43.0-75.0 [facility] Comment on above: Performed By: #### C MIKKI, LIVER #### [facility] [address] [address] [address] Agueda Wiley WBC 29.6 103/ul Critically high 4.0-11.0 [facility] Comment on above: Performed By: #### C MIKKI, LIVER #### [facility] [address] [place], [place] [address] ABD/PELVIS WO CONon [...] FAY BERGERON Date: 2022-05-17 10:55 Normal [facility] CULTURE BLOODon 05-17-2022 Microscopic examination of blood, culture Culture Observations: NO GROWTH AT 5 DAYS. Normal [facility] Comment on above: Performed By: #### C MIKKI LIVER #### [facility] [address] [place], [place] [address] Dr. Agueda Wiley Microscopic examination of blood, culture Culture Observations: NO GROWTH AT 5 DAYS. Normal [facility] Comment on above: Performed By: #### C MIKKI LIVER #### [facility] [address] [place], [place] [address] Dr. Agueda Wiley Covid-19 PCR (CVDTB)on SARS-CoV-2 (COVID-19) RNA JEREMIAH+probe Ql (Unsp spec) Not detected Normal NOT DETECTED [facility] Comment on above: Result Comment: When [...] for this test is supported by the Revenue Collector of Health and Human Service's declaration that [...] used). Performed By: #### R NPAB #### [facility] [address] [place] [address] Dr. Agueda Wiley ER URINE PROFILEon 2 Bilirubin Ql (U) Negative Normal NEGATIVE [facility] Comment on above: Performed By: #### R NPAB #### [facility] [address] [place] [address] Dr. Agueda Wiley Clarity (U) CLEAR Normal CLEAR [facility] Comment on above: Performed By: #### R NPAB #### [facility] [address] [place] [address] Dr. Agueda Wiley Color (U) YELLOW Normal YELLOW [facility] Comment on above: Performed By: #### R NPAB #### [facility] [address] [place] [address] Dr. Agueda Wiley ERUAHD A micrscopic examina tion will be performed if indicated. Normal [facility] Comment on above: Performed By: #### R NPAB #### [facility] [address] [place] [address] Dr. Agueda Wiley Glucose Ql (U) Negative Normal NEGATIVE [facility] Comment on above: Performed By: #### R NPAB #### [facility] [address] [place] [address] Dr. Agueda Wiley Hemoglobin Ql (U) Negative Normal NEGATIVE [facility] Comment on above: Performed By: #### R NPAB #### [facility] [address] [address] [address] Agueda Wiley Ketones Ql (U) 15 mg/dl Abnormal NEGATIVE [facility] Comment on above: Performed By: #### R NPAB #### [facility] [address] [place] [address] Dr. Agueda Wiley LEUKOCYTES Negative Normal NEGATIVE [facility] Comment on above: Performed By: #### R NPAB #### [facility] [address] [place] [address] Dr. Agueda Wiley Nitrite Ql (U) Negative Normal NEGATIVE [facility] Comment on above: Performed By: #### R NPAB #### [facility] [address] [place] [address] Dr. Agueda Wiley pH (U) 6.0 [pH] Normal 5-9 [facility] Comment on above: Performed By: #### R NPAB #### [facility] [address] [place] [address] Dr. Agueda Wiley SPEC GRAVITY 1.015 Normal 1.005-<=1.0 25 [facility] Comment on above: Performed By: #### R NPAB #### [facility] [address] [place] [address] Dr. Agueda Wiley UA PROTEIN Negative Normal NEGATIVE/ TRACE [facility] Comment on above: Performed By: #### R NPAB #### [facility] [address] [place] [address] Dr. Agueda Wiley UR MICRO IND NOT INDICATED Normal [facility] Comment on above: Performed By: #### R NPAB #### [facility] [address] [place] [address] Dr. Agueda Wiley Urobilinogen Qn (U) 0.2 {[place]'U}/dL Normal 0.2 - 1. 0 [facility] Comment on above: Performed By: #### R NPAB #### [facility] [address] [place] [address] Dr. Agueda Wiley GI PANEL (PCR)on 05-17-2022 Adenovirus F 40/41 Not detected Normal NOT DETECTED [facility] Comment on above: Performed By: #### C MIKKI, LIVER #### [facility] [address] [place] [address] Dr. Agueda Wiley Astrovirus Not detected Normal NOT DETECTED [facility] Comment on above: Performed By: #### C MIKKI, LIVER #### [facility] [address] [place] [address] Dr. Agueda Uriostegui. Diff toxin A/B Detected Critically abnormal NOT DETECTED [facility] Comment on above: Performed By: #### C MIKKI, LIVER #### [facility] [address] [place] [address] Dr. Agueda Wiley Campylobacter Not detected Normal NOT DETECTED [facility] Comment on above: Performed By: #### C MIKKI, LIVER #### [facility] [address] [place] [address] Dr. Agueda Wiley Cryptosporidium Not detected Normal NOT DETECTED [facility] Comment on above: Performed By: #### C MIKKI, LIVER #### [facility] [address] [place] [address] Dr. Agueda Wiley Cyclos. Cayetanensis Not detected Normal NOT DETECTED [facility] Comment on above: Performed By: #### C MIKKI, LIVER #### [facility] [address] [place] [address] Dr. Agueda Wiley E. Coli O157 Not Applicable Normal Not Applicable [facility] Comment on above: Performed By: #### C MIKKI, LIVER #### [facility] [address] [place] [address] Dr. Agueda Wiley E. histolytica Not detected Normal NOT DETECTED [facility] [facility] Comment on above: Performed By: #### C MIKKI, LIVER #### [facility] [address] [place] [address] Dr. Agueda Wiley EAEC Not detected Normal NOT DETECTED The [facility] Comment on above: Performed By: #### C MIKKI, LIVER #### [facility] [address] [place] [address] Dr. Agueda Wiley EIEC Not detected Normal NOT DETECTED The [facility] Comment on above: Performed By: #### C MIKKI, LIVER #### [facility] [address] [place] [address] Dr. Agueda Wiley EPEC Not detected Normal NOT DETECTED The [facility] Comment on above: Performed By: #### C MIKKI, LIVER #### [facility] [address] [place] [address] Dr. Agueda Wiley ETEC Not detected Normal NOT DETECTED The [facility] Comment on above: Performed By: #### C MIKKI, LIVER #### [facility] [address] [place] [address] Dr. Agueda Holguin Lamblia Not detected Normal NOT DETECTED The [facility] Comment on above: Performed By: #### C MIKKI, LIVER #### [facility] [address] [place] [address] Dr. Agueda LERNER CONTROLS PASSED Normal The [facility] Comment on above: Performed By: #### C MIKKI, LIVER #### [facility] [address] [place] [address] Dr. Agueda [facility] GI PANEL BACTERIA Normal T [facility] Comment on above: Performed By: #### C MIKKI, LIVER #### [facility] [address] [place] [address] Dr. Agueda ALMEIDA ECOLI GI PANEL DIARRHEAGEN IC E.COLI / SHIGELLA Normal The [facility] Comment on above: Performed By: #### C MIKKI, LIVER #### [facility] [address] [place] [address] Dr. Agueda ALMEIDA INFO SEE BELOW Normal [facility] Comment on above: Result Comment: EAEC - Enteroaggregative E. Coli EPEC- Enteropathogenic E. Coli ETEC- Enterotoxigenic E. Coli lt/st STEC- Shigella-like toxin-producing E. Coli stx1/stx2 EIEC- Shigella/Enteroinvasive E. Coli Performed By: #### C MIKKI, LIVER #### [facility] [address] [place] [address] Dr. Agueda ALMEIDA PARASITES GI PANEL PARASITES Normal The [facility] Comment on above: Performed By: #### C MIKKI, LIVER #### [facility] [address] [place] [address] Dr. Agueda ALMEIDA VIRUS GI PANEL VIRUSES Normal The [facility] Comment on above: Performed By: #### C MIKKI, LIVER #### [facility] [address] [place] [address] Dr. Agueda Wiley Norovirus GI/GII Not detected Normal NOT DETECTED The [facility] Comment on above: Performed By: #### C MIKKI, LIVER #### [facility] [address] [place] [address] Dr. Agueda Wiley P. Shigelloides Not detected Normal NOT DETECTED The [facility] Comment on above: Performed By: #### C MIKKI, LIVER #### [facility] [address] [place] [address] Dr. Agueda Wiley Rotavirus A Not detected Normal NOT DETECTED The [facility] Comment on above: Performed By: #### C MIKKI, LIVER #### [facility] [address] [place] [address] Dr. Agueda Wiley Salmonella Not detected Normal NOT DETECTED The [facility] Comment on above: Performed By: #### C MIKKI, LIVER #### [facility] [address] [place] [address] Dr. Agueda Wiley Sapovirus Not detected Normal NOT DETECTED The [facility] Comment on above: Performed By: #### C MIKKI, LIVER #### [facility] [address] [place] [address] Dr. Agueda Wiley STEC Not detected Normal NOT DETECTED The [facility] Comment on above: Performed By: #### C MIKKI, LIVER #### [facility] [address] [place] [address] Dr. Agueda Wiley Vibrio Not detected Normal NOT DETECTED The [facility] Comment on above: Performed By: #### C MIKKI, LIVER #### [facility] [address] [place] [address] Dr. Agueda Wiley Vibrio Cholera Not detected Normal NOT DETECTED [facility] Comment on above: Performed By: #### C MIKKI, LIVER #### [facility] [address] [place] [address] Dr. Agueda Wiley Y. Enterocolitica Not detected Normal NOT DETECTED [facility] Comment on above: Performed By: #### C MIKKI, LIVER #### [facility] [address] [place] [address] Dr. Agueda Wiley LACTATE/LACTIC ACIDon 2021 Lactate [Moles/Vol] 1.3 mmol/L Normal 0.4-1.9 [facility] Comment on above: Performed By: #### A NAIFA #### [facility] [address] [place] [address] Dr. Agueda Wiley LIPASEon 05-17-2022 Lipase [Catalytic activity/Vol] 200.0 U/L Normal 73.0-393.0 [facility] Comment on above: Performed By: #### C SUITE #### [facility] [address] [place] [address] Dr. Agueda Wiley PROF 14(COMP METB)on 022 Albumin [Mass/Vol] 2.3 g/dL Critically low 3.4-5.0 [facility] Comment on above: Performed By: #### C SUITE #### [facility] [address] [place] [address] Dr. Agueda Wiley Albumin/Globulin [Mass ratio] 0.6 {ratio} Normal [facility] Comment on above: Performed By: #### C SUITE #### [facility] [address] [place] [address] Dr. Agueda Wiley ALP [Catalytic activity/Vol] 140 U/L Critically high 46-116 [facility] Comment on above: Performed By: #### C SUITE #### [facility] [address] [place] [address] Dr. Agueda Wiley ALT [Catalytic activity/Vol] 26 U/L Normal 14-59 [facility] Comment on above: Performed By: #### C SUITE #### [facility] [address] [place] [address] Dr. Agueda Wiley Anion gap [Moles/Vol] 17.5 mmol/L Normal [facility] Comment on above: Performed By: #### C SUITE #### [facility] [address] [place] [address] Dr. Agueda Wiley AST [Catalytic activity/Vol] 15 U/L Normal 15-37 [facility] Comment on above: Performed By: #### C SUITE #### [facility] [address] [place] [address] Dr. Agueda Wiley Bilirubin [Mass/Vol] 0.3 mg/dL Normal 0.2-1.0 [facility] Comment on above: Performed By: #### C SUITE #### [facility] [address] [place] [address] Dr. Agueda Wiley Calcium [Mass/Vol] 8.1 mg/dL Critically low 8.5-10.1 [facility] Comment on above: Performed By: #### C SUITE #### [facility] [address] [place] [address] Dr. Agueda Wiley Chloride [Moles/Vol] 98 mmol/L Normal 98-107 [facility] Comment on above: Performed By: #### C SUITE #### [facility] [address] [place] [address] Dr. Agueda Wiley CO2 [Moles/Vol] 21.9 mmol/L Normal 21.0-32.0 [facility] Comment on above: Performed By: #### C SUITE #### [facility] [address] [place] [address] Dr. Agueda Wiley Creatinine [Mass/Vol] 1.00 mg/dL Normal 0.55-1.02 [facility] Comment on above: Performed By: #### C SUITE #### [facility] [address] [place] [address] Dr. Agueda Wiley EGFR-AF SOMALI >60 Normal >=60 [facility] Comment on above: Performed By: #### C SUITE #### [facility] [address] [address] [address] Agueda Wiley EGFR-NON AF SOMALI 55 mL/min/1.73m2 Critically low >=60 [facility] Comment on above: Performed By: #### C SUITE #### [facility] [address] [address] [address] Agueda Wiley Globulin (S) [Mass/Vol] 3.8 g/dL Normal [facility] Comment on above: Performed By: #### C SUITE #### [facility] [address] [address] [address] Agueda Wiley Glucose [Mass/Vol] 119 mg/dL Critically high 74-106 T [facility] Comment on above: Performed By: #### C SUITE #### [facility] [address] [address] [address] Agueda Wiley Potassium [Moles/Vol] 3.4 mmol/L Critically low 3.5-5.1 [facility] Comment on above: Performed By: #### C SUITE #### [facility] [address] [address] [address] Agueda Wiley Protein [Mass/Vol] 6.1 g/dL Critically low 6.4-8.2 Th [facility] Comment on above: Performed By: #### C SUITE #### [facility] [address] [address] [address] Agueda Wiley Sodium [Moles/Vol] 134 mmol/L Critically low 136-145 Th [facility] Comment on above: Performed By: #### C SUITE #### [facility] [address] [address] [address] Agueda Wiley Urea nitrogen [Mass/Vol] 19.0 mg/dL Critically high 7.0-18.0 [facility] Comment on above: Performed By: #### C SUITE #### [facility] [address] [address] [address] Agueda Wiley Urea nitrogen/Creatinine [Mass ratio] 19.0 mg/mg [facility] Comment on above: Performed By: #### C SUITE #### [facility] [address] [place], [place] [address] Dr. Agueda Wiley PROTIMEon 05-17-2022 INR Coag (PPP) [Relative time] 1.12 {INR} Normal [facility] Comment on above: Performed By: #### C MIKKI, LIVER #### [facility] [address] [place], [place] [address] Dr. Agueda Wiley INR GUIDELINES SEE BELOW Normal [facility] Comment on above: Result Comment: ROSA RED INR: 2.0 - 3.0 CONDITIONS NOT LISTED BELOW 2.5 - 3.5 FOR PROSTHETIC HEART VALVE REPLACEMENT 2.5 - 3.5 RECURRENT THROMBOSIS Performed By: #### C MIKKI, LIVER #### [facility] [address] [place], [place] [address] Dr. Agueda Wiley PT Coag (PPP) [Time] 12.0 s Critically high 9.0-11.6 [facility] Comment on above: Performed By: #### C MIKKI, LIVER #### [facility] [address] [place], [place] [address] Dr. Agueda Wiley PTTon 05-17-2022 aPTT Coag (Bld) [Time] 24.8 s Normal 22.3-36.2 [facility] Comment on above: Performed By: #### C MIKKI, LIVER #### [facility] [address] [place], [place] [address] Dr. Agueda Wiley XR knee LT 3Von 04-16-2022 XR knee LT 3V [facility] [employer] Other XR knee LT 3V [facility] [employer] Other XR knee LT 3V [address] [place] [address] [employer] Other XR knee LT 3V [address] [employer] Other XR knee LT 3V XRay Report [employer] Other XR knee LT 3V Signed [place] [employer] Other XR knee LT 3V Patient: Reba Gregory MR#: [id number] [employer] Other XR knee LT 3V : 1955 Acct:[id number] [employer] Other XR knee LT 3V Age/Sex: 66 / F ADM Date: 04/16/22 [employer] Other XR knee LT 3V Loc: [facility] Room: Type : REG CLI [employer] Other XR knee LT 3V Attending Dr: Nabor Nelson II, MD [employer] Other XR knee LT 3V Copies to: Nabor Nelson MD [employer] Other XR knee LT 3V Ordering Provider: Ragini Nelson MD [employer] Other XR knee LT 3V Date of Service: 04/16/22 [employer] Other XR knee LT 3V XR/XR knee LT 3V - NOT FOR ER USE: Aftercare following joint replacement [employer] Other XR knee LT 3V surgery [employer] Other XR knee LT 3V LEFT KNEE - 4 views No rt [employer] Other XR knee LT 3V CLINICAL HISTORY: Follow-up left knee surgery. [employer] Other XR knee LT 3V COMPARISON: Left kne e 03/02/2022 [employer] Other XR knee LT 3V FINDINGS: [employer] Other XR knee LT 3V Left knee prosthesis without radiographic complication. No acute bony process. [employer] Other XR knee LT 3V X R/XR knee LT 3V - NOT FOR ER USE [employer] Other XR knee LT 3V IMPRESSION: [employer] Other XR knee LT 3V NO EVIDENCE OF HARDW ARE COMPLICATION. [employer] Other XR knee LT 3V Impression dictated by: Dave Espana Jr., D.OShannon04/16/2022 10:02 AM [employer] Other XR knee LT 3V Dictation Location: [facility]--11 [employer] Other XR knee LT 3V Transcribed By: PWS 04/16/22 1002 [employer] Other XR knee LT 3V Dictated By: Dave Espana Jr DO 04/16/22 1001 [employer] Other XR knee LT 3V Signed By: [employer] Other XR knee LT 3V 04/16/22 1002 [employer] Other Basophils Auto (Bld) [#/Vol] Ordered By: Nabor Nelson on 03-03-2022 Basophils (Bld) [#/Vol] 0.0 10*3/uL 0.0-0.2 [facility] Basophils/100 WBC Auto (Bld) Ordered By: Nabor Nelson on 03-03-2022 Basophils/100 WBC (Bld) 0.2 % . [facility] Blood hemoglobin measurement (mass/volume)Ordered By: Nabor Nelson on 03-03-2022 Hemoglobin (Bld) [Mass/Vol] 11.4 g/dL 11.8-15.4 [facility] Blood leukocytes automated c ount (number/volume)Ordered By: Nabor Nelson on 03-03-2022 WBC (Bld) [#/Vol] 8.3 10*3/uL 4.5-11.0 [facility] Creatinine and Glomerular fi ltration rate.predicted panel (S/P/Bld)Ordered By: Nabor Nelson on 03-03-2022 Creatinine [Mass/Vol] 0.95 mg/dL 0.44-1.03 [facility] Eosinophils Auto (Bld) [#/Vo l]Ordered By: Nabor Nelson on 03-03-2022 Eosinophils (Bld) [#/Vol] 0.0 10*3/uL 0.0-0.45 [facility] Eosinophils/100 WBC Auto (Bl d)Ordered By: Nabor Nelson on 03-03-2022 Eosinophils/100 WBC (Bld) 0.0 % . [facility] Erythrocyte distribution wid th Auto (RBC) [Ratio]Ordered By: Nabor Nelson on 03-03-2022 Erythrocyte distribution width (RBC) [Ratio] 15.0 % 11.9-15.3 [facility] Estimated glomerular filtrat ion rate (GFR) non- AmericanOrdered By: Nabor Nelson on 03-03-2022 GFR/1.73 sq M.predicted among non-blacks MDRD (S/P/Bld) [Vol rate/Area] 59 mL/Min [facility] Hematocrit Auto (Bld) [Volum e fraction]Ordered By: Nabor Nelson on 03-03-2022 Hematocrit (Bld) [Volume fraction] 33.7 % 34.0-46.4 [facility] - Hematology and Cell countsOrdered By: Nabor Nelson on 03-03-2022 Nucleated RBC/100 WBC (Bld) [Ratio] 0.0 % 0-0.5 [facility] Lymphocytes Auto (Bld) [#/Vo l]Ordered By: Nabor Nelson on 03-03-2022 Lymphocytes (Bld) [#/Vol] 0.8 10*3/uL 1.00-4.8 [facility] Lymphocytes/100 WBC Auto (Bl d)Ordered By: Nabor Nelson on 03-03-2022 Lymphocytes/100 WBC (Bld) 9.6 % . [facility] MCH Auto (RBC) [Entitic mass ]Ordered By: Nabor Nelson on 03-03-2022 MCH (RBC) [Entitic mass] 31.0 pg 24.7-34.3 [facility] MCHC Auto (RBC) [Mass/Vol]Or dered By: Nabor Nelson on 03-03-2022 MCHC (RBC) [Mass/Vol] 33.7 g/dL 32.0-35.0 [facility] MCV Auto (RBC) [Entitic vol] Ordered By: Nabor Nelson on 03-03-2022 MCV (RBC) [Entitic vol] 92.0 fL 80-100 [facility] Monocytes Auto (Bld) [#/Vol] Ordered By: Nabor Nelson on 03-03-2022 Monocytes (Bld) [#/Vol] 1.0 10*3/uL 0.0-0.8 [facility] Monocytes/100 WBC Auto (Bld) Ordered By: Nabor Nelson on 03-03-2022 Monocytes/100 WBC (Bld) 12.6 % . [facility] Neutrophils Auto (Bld) [#/Vo l]Ordered By: Nabor Nelson on 03-03-2022 Neutrophils (Bld) [#/Vol] 6.4 10*3/uL 1.8-7.7 [facility] Neutrophils/100 WBC Auto (Bl d)Ordered By: Nabor Nelson on 03-03-2022 Neutrophils/100 WBC (Bld) 77.6 % . [facility] No Panel InformationOrdered By: Nabor Nelson on 03-03-2022 Estimated GFR () > 60 mL/Min [facility] Comment on above: GFR estimated refere nce range: According to KDOQI guidelines, <60 ml/min/1.73m2 is sufficient to diagnose a patient with chronic kidney disease. Pharmacy Creatinine Clearance (Chem 55.10 [facility] Platelet mean volume Auto (B ld) [Entitic vol]Ordered By: Nabor Nelson on 03-03-2022 Platelet mean volume (Bld) [Entitic vol] 10.5 fL 6.3-10.7 [facility] Platelets Auto (Bld) [#/Vol] Ordered By: Nbaor Nelson on 03-03-2022 Platelets (Bld) [#/Vol] 187 10*3/uL 150-450 [facility] RBC Auto (Bld) [#/Vol]Ordere d By: Nabor Nelson on 03-03-2022 RBC (Bld) [#/Vol] 3.66 10*6/uL 3.60-5.00 [facility] Serum or plasma calcium phan urement (mass/volume)Ordered By: Nabor Nelson on 03-03-2022 Calcium [Mass/Vol] 9.2 mg/dL 8.2-10.2 [facility] Serum or plasma chloride wilma surement (moles/volume)Ordered By: Nabor Nelson on 03-03-2022 Chloride [Moles/Vol] 107 mmol/L 95-114 [facility] Serum or plasma glucose phan urement (mass/volume)Ordered By: Nabor Nelson on 03-03-2022 Glucose [Mass/Vol] 157 mg/dL 70-100 [facility] Comment on above: ADA recommended refe rence range Random Glucose Reference Range is dependent on time and content of last meal. Glucose of more than 200 mg/dL in a nonstressed, ambulatory subject supports the diagnosis of Diabetes Mellitus. Serum or plasma potassium me asurement (moles/volume)Ordered By: Nabor Nelson on 03-03-2022 Potassium [Moles/Vol] 4.0 mmol/L 3.5-5.1 [facility] Serum or plasma sodium measu rement (moles/volume)Ordered By: Nabor Nelson on 03-03-2022 Sodium [Moles/Vol] 139 mmol/L 136-146 [facility] Serum or plasma total carbon dioxide measurement (moles/volume)Ordered By: Nabor Nelson on 03-03-2022 CO2 [Moles/Vol] 24.8 mmol/L 22.0-30.0 [facility] Serum or plasma urea nitroge n measurement (mass/volume)Ordered By: Nabor Nelson on 03-03-2022 Urea nitrogen [Mass/Vol] 12 mg/dL 9-23 [facility] COVID-19 Positive/NegativeOr dered By: Nabor Nelson on 02-26-2022 SARS-CoV-2 (COVID-19) N gene JEREMIAH+probe Ql (Resp) Negative Negative [facility] Comment on above: Testing for SARS-CoV -2 by RT-PCR This test was developed and its performance characteristics determined by [employer] and validated at the [facility]. This test has not been FDA [...] 01-30-2022 BASO # 0.0 103/ul Normal 0.0-0.1 [facility] Comment on above: Performed By: #### C MIKKI, LIVER #### [facility] [address] [place] [address] Dr. Agueda Wiley Basophils/100 WBC (Bld) 0.6 % Normal 0.2-2.0 [facility] Comment on above: Performed By: #### C MIKKI, LIVER #### [facility] [address] [address] [address] Agueda Wiley EO # 0.2 103/ul Normal 0.0-0.7 [facility] Comment on above: Performed By: #### C MIKKI, LIVER #### [facility] [address] [place] [address] Dr. Agueda Wiley Eosinophils/100 WBC (Bld) 2.7 % Normal 0.9-7.0 [facility] Comment on above: Performed By: #### C MIKKI, LIVER #### [facility] [address] [address] [address] Agueda Wiley Erythrocyte distribution width (RBC) [Ratio] 14.0 % Normal 11.0-15.0 [facility] Comment on above: Performed By: #### C MIKKI, LIVER #### [facility] [address] [place] [address] Dr. Agueda Wiley Hematocrit (Bld) [Volume fraction] 42.1 % Normal 36.0-48.0 [facility] Comment on above: Performed By: #### C MIKKI, LIVER #### [facility] [address] [place] [address] Dr. Agueda Wiley Hemoglobin (Bld) [Mass/Vol] 13.8 g/dL Normal 12.0-16.0 [facility] Comment on above: Performed By: #### C MIKKI, LIVER #### [facility] [address] [place] [address] Dr. Agueda Wiley IG # 0.02 10e3/ul Normal 0.00-0.03 [facility] Comment on above: Performed By: #### C MIKKI, LIVER #### [facility] [address] [place] [address] Dr. Agueda Wiley IG % 0.3 % Normal 0.0-0.5 [facility] Comment on above: Performed By: #### Gila KAYE, LIVER #### [facility] [address] [place] [address] Dr. Agueda Wiley LYMPH # 1.6 103/ul Normal 1.2-3.8 [facility] Comment on above: Performed By: #### Gila KAYE, LIVER #### [facility] [address] [place] [address] Dr. Agueda Wiley Lymphocytes/100 WBC (Bld) 23.3 % Normal 20.5-60.0 [facility] Comment on above: Performed By: #### Gila KAYE, LIVER #### [facility] [address] [place] [address] Dr. Agueda Wiley MCH (RBC) [Entitic mass] 29.7 pg Normal 26.7-34.0 [facility] Comment on above: Performed By: #### C MIKKI, LIVER #### [facility] [address] [place] [address] Dr. Agueda Wiley MCHC (RBC) [Mass/Vol] 32.8 g/dL Normal 29.9-35.2 [facility] Comment on above: Performed By: #### Gila KAYE, LIVER #### [facility] [address] [place] [address] Dr. Agueda Wiley MCV (RBC) [Entitic vol] 90.7 fL Normal 81.0-99.0 [facility] Comment on above: Performed By: #### C MIKKI, LIVER #### [facility] [address] [place] [address] Dr. Agueda Wiley MONO # 0.8 103/ul Normal 0.3-0.8 [facility] Comment on above: Performed By: #### C MIKKI, LIVER #### [facility] [address] [place] [address] Dr. Agueda Wiley Monocytes/100 WBC (Bld) 10.7 % Normal 1.7-12.0 [facility] Comment on above: Performed By: #### C MIKKI, LIVER #### [facility] [address] [place] [address] Dr. Agueda Wiley NEUT # 4.4 103/ul Normal 1.4-6.5 [facility] Comment on above: Performed By: #### C MIKKI, LIVER #### [facility] [address] [place] [address] Dr. Agueda Wiley Neutrophils/100 WBC (Bld) 62.4 % Normal 43.0-75.0 [facility] Comment on above: Performed By: #### C MIKKI, LIVER #### [facility] [address] [place] [address] Dr. Agueda Wiley Platelet mean volume (Bld) [Entitic vol] 11.0 fL Normal 9.5-13.5 [facility] Comment on above: Performed By: #### C MIKKI, LIVER #### [facility] [address] [place] [address] Dr. Agueda Wiley PLT 270 103/ul Normal 150-450 [facility] Comment on above: Performed By: #### C MIKKI, LIVER #### [facility] [address] [place] [address] Dr. Agueda Wiley RBC 4.64 106/ul Normal 4.20-5.40 [facility] Comment on above: Performed By: #### C MIKKI, LIVER #### [facility] [address] [address] [address] Agueda Wiley WBC 7.0 103/ul Normal 4.0-11.0 [facility] Comment on above: Performed By: #### C MIKKI, LIVER #### [facility] [address] [address] [address] Agueda Wiley SAULO- BMP WITH LIPIDon 2021 Anion gap [Moles/Vol] 12.5 mmol/L Normal [facility] Comment on above: Performed By: #### C MIKKI, LIVER #### [facility] [address] [address] [address] Agueda Wiley Calcium [Mass/Vol] 9.0 mg/dL Normal 8.5-10.1 [facility] Comment on above: Performed By: #### C MIKKI, LIVER #### [facility] [address] [address] [address] Agueda Wiley Chloride [Moles/Vol] 105 mmol/L Normal 98-107 [facility] Comment on above: Performed By: #### C MIKKI, LIVER #### [facility] [address] [address] [address] Agueda Wiley Cholesterol [Mass/Vol] 246 mg/dL Critically high <=200 [facility] Comment on above: Performed By: #### C MIKKI, LIVER #### [facility] [address] [address] [address] Agueda Wiley Cholesterol in HDL [Mass/Vol] 84 mg/dL Critically high 40-60 [facility] Comment on above: Performed By: #### C MIKKI, LIVER #### [facility] [address] [address] [address] Agueda Wiley Cholesterol in LDL [Mass/Vol] 130.6 mg/dL Normal [facility] Comment on above: Performed By: #### C MIKKI, LIVER #### [facility] [address] [address] [address] Agueda Wiley CO2 [Moles/Vol] 28.4 mmol/L Normal 21.0-32.0 [facility] Comment on above: Performed By: #### C MIKKI, LIVER #### [facility] [address] [address] [address] Agueda Wiley Creatinine [Mass/Vol] 0.97 mg/dL Normal 0.55-1.02 [facility] Comment on above: Performed By: #### C MIKKI, LIVER #### [facility] [address] [address] [address] Agueda Wiley EGFR-AF SOMALI >60 Normal >=60 [facility] Comment on above: Performed By: #### C MIKKI, LIVER #### [facility] [address] [address] [address] Agueda Wiley EGFR-NON AF SOMALI 57 mL/min/1.73m2 Critically low >=60 [facility] Comment on above: Performed By: #### C MIKKI, LIVER #### [facility] [address] [address] [address] Agueda Wiley Glucose [Mass/Vol] 96 mg/dL Normal 74-106 [facility] Comment on above: Performed By: #### C MIKKI, LIVER #### [facility] [address] [address] [address] Agueda Wiley HDL NORMAL > or = 60 mg/dl - LO W CARDIOVASCULAR RISK <40 mg/dl - HIGH CARDIOVASCULAR RISK Normal [facility] Comment on above: Performed By: #### C MIKKI, LIVER #### [facility] [address] [address] [address] Agueda Wiley LDL CALC NORMAL SEE BELOW Normal [facility] Comment on above: Result Comment: <100 mg/dl OPTIMAL 100 - 129 mg/dl NEAR OR ABOVE OPTIMAL 130 - 159 mg/dl BORDERLINE HIGH 160 - 189 mg/dl HIGH >190 mg/dl VERY HIGH Performed By: #### C MIKKI, LIVER #### [facility] [address] [address] [address] Agueda Wiley Potassium [Moles/Vol] 3.9 mmol/L Normal 3.5-5.1 [facility] Comment on above: Performed By: #### C MIKKI, LIVER #### [facility] [address] [address] [address] Agueda Wiley Sodium [Moles/Vol] 142 mmol/L Normal 136-145 [facility] Comment on above: Performed By: #### C MIKKI, LIVER #### [facility] [address] [address] [address] Agueda Wiley Triglyceride [Mass/Vol] 157 mg/dL Critically high <=150 [facility] Comment on above: Performed By: #### C MIKKI, LIVER #### [facility] [address] [address] [address] Agueda Wiley Urea nitrogen [Mass/Vol] 19.0 mg/dL Critically high 7.0-18.0 [facility] Comment on above: Performed By: #### C MIKKI, LIVER #### [facility] [address] [address] [address] Agueda Wiley Urea nitrogen/Creatinine [Mass ratio] 19.6 mg/mg Normal [facility] Comment on above: Performed By: #### C MIKKI, LIVER #### [facility] [address] [address] [address] Agueda Wiley VLDL CALC 31.4 mg/dL Normal [facility] Comment on above: Performed By: #### C MIKKI, LIVER #### [facility] [address] [address] [address] Agueda Wiley Vital Signs Date Time Vital Sign Value Performing Clinician Facility 04-28-2024 [id number] Body height 143.51 cm [facility] 04-28-2024 08:20-0400 Body mass index (BMI) [Ratio] 36.2 kg/m2 [facility] 04-28-2024 08:20-0400 Body weight 74.58 kg [facility] 04-28-2024 08:20-0400 Diastolic blood pressure 78 mm[Hg] [facility] 04-28-2024 08:20-0400 Heart rate 63 /min [facility] 04-28-2024 08:20-0400 Respiratory rate 18 /min [facility] 04-28-2024 08:20-0400 SaO2% (BldA) [Mass fraction] 95 % [facility] 04-28-2024 08:20-0400 Systolic blood pressure 160 mm[Hg] [facility] 03-09-2024 09:05-0400 Body height 143.51 cm [facility] 03-09-2024 09:05-0400 Body mass index (BMI) [Ratio] 36.1 kg/m2 [facility] 03-09-2024 09:05-0400 Body weight 74.44 kg [facility] 03-09-2024 09:05-0400 Diastolic blood pressure 77 mm[Hg] [facility] 03-09-2024 09:05-0400 Heart rate 66 /min [facility] 03-09-2024 09:05-0400 Respiratory rate 12 /min [facility] 03-09-2024 09:05-0400 Systolic blood pressure 184 mm[Hg] [facility] 02-29-2024 09:27-0400 Body height 151.13 cm [facility] 02-29-2024 09:27-0400 Body mass index (BMI) [Ratio] 32.2 kg/m2 [facility] 02-29-2024 09:27-0400 Body weight 73.68 kg [facility] 02-29-2024 09:27-0400 Diastolic blood pressure 87 mm[Hg] [facility] 02-29-2024 09:27-0400 Heart rate 64 /min [facility] 02-29-2024 09:27-0400 Respiratory rate 18 /min [facility] 02-29-2024 09:27-0400 SaO2% (BldA) [Mass fraction] 97 % [facility] 02-29-2024 09:27-0400 Systolic blood pressure 151 mm[Hg] [facility] 01-05-2024 10:32-0400 Body height 151.13 cm [facility] 01-05-2024 10:32-0400 Body mass index (BMI) [Ratio] 32.1 kg/m2 [facility] 01-05-2024 10:32-0400 Body weight 73.48 kg [facility] 01-05-2024 10:32-0400 Diastolic blood pressure 80 mm[Hg] [facility] 01-05-2024 10:32-0400 Heart rate 64 /min [facility] 01-05-2024 10:32-0400 SaO2% (BldA) [Mass fraction] 97 % [facility] 01-05-2024 10:32-0400 Systolic blood pressure 150 mm[Hg] [facility] 12-09-2023 15:06-0400 Body height 151.13 cm DO Jonathan Ball Work Phone: [facility] 12-09-2023 15:06-0400 Body mass index (BMI) [Ratio] 32.3 kg/m2 DO Jonathan Ball Work Phone: [facility] 12-09-2023 15:06-0400 Body weight 73.99 kg DO Jonathan Ball Work Phone: [facility] 12-09-2023 15:06-0400 Diastolic blood pressure 95 mm[Hg] DO Jonathan Ball Work Phone: [facility] 12-09-2023 15:06-0400 Diastolic blood pressure 85 mm[Hg] [facility] 12-09-2023 15:06-0400 Heart rate 65 /min DO Jonathan Ball Work Phone: [facility] 12-09-2023 15:06-0400 Respiratory rate 12 /min DO Jonathan Ball Work Phone: [facility] 12-09-2023 15:06-0400 Systolic blood pressure 171 mm[Hg] DO Jonathan Ball Work Phone: [facility] 12-09-2023 15:06-0400 Systolic blood pressure 155 mm[Hg] [facility] 11-17-2023 08:43-0500 Body height 151.13 cm DO Jonathan Ball Work Phone: [facility] 11-17-2023 08:43-0500 Body mass index (BMI) [Ratio] 32.4 kg/m2 DO Jonathan Ball Work Phone: [facility] 11-17-2023 08:43-0500 Body weight 74.07 kg DO Jonathan Ball Work Phone: [facility] 11-17-2023 08:43-0500 Diastolic blood pressure 78 mm[Hg] DO Jonathan Ball Work Phone: [facility] 11-17-2023 08:43-0500 Heart rate 58 /min DO Jonathan Ball Work Phone: [facility] 11-17-2023 08:43-0500 Respiratory rate 20 /min DO Jonathan Ball Work Phone: [facility] 11-17-2023 08:43-0500 SaO2% (BldA) [Mass fraction] 96 % DO Jonathan Ball Work Phone: [facility] 11-17-2023 08:43-0500 Systolic blood pressure 158 mm[Hg] DO Jonathan Ball Work Phone: [facility] 09-21-2023 11:15-0500 Body height 151.13 cm Massiel Fitt Other [facility] 09-14-2023 11:15-0500 Body height 151.13 cm Massiel Fitt Other [facility] 09-09-2023 09:30-0500 Body height 151.13 cm Jonathan Ball Other [facility] Other 09-09-2023 09:30-0500 Body mass index (BMI) [Ratio] 33.8 kg/m2 Jonathan Ball Other [facility] Other 09-09-2023 09:30-0500 Body weight 77.2 kg Jonathan Ball Other [facility] Other 09-09-2023 09:30-0500 Diastolic blood pressure 80 mm[Hg] Jonathan Ball Other [facility] Other 09-09-2023 09:30-0500 Respiratory rate 12 /min Jonathan Ball Other [facility] Other 09-09-2023 09:30-0500 Systolic blood pressure 169 mm[Hg] Jonathan Ball Other [facility] Other 08-19-2023 08:30-0500 Body height 151.13 cm [employer] Other [facility] Other 08-19-2023 08:30-0500 Body mass index (BMI) [Ratio] 33.6 kg/m2 [employer] Other [facility] Other 08-19-2023 08:30-0500 Body weight 76.75 kg [employer] Other [facility] Other 08-19-2023 08:30-0500 Diastolic blood pressure 97 mm[Hg] [employer] Other [facility] Other 08-19-2023 08:30-0500 Respiratory rate 18 /min [employer] Other [facility] Other 08-19-2023 08:30-0500 SaO2% (BldA) [Mass fraction] 96 % [employer] Other [facility] Other 08-19-2023 08:30-0500 Systolic blood pressure 128 mm[Hg] [employer] Other [facility] Other 08-17-2023 10:45-0500 Body height 151.13 cm Jonathan Ball Other [facility] Other 08-17-2023 10:45-0500 Body mass index (BMI) [Ratio] 33.8 kg/m2 Jonathan Ball Other [facility] Other 08-17-2023 10:45-0500 Body weight 77.2 kg Jonathan Ball Other [facility] Other 08-17-2023 10:45-0500 Diastolic blood pressure 74 mm[Hg] Jonathan Ball Other [facility] Other 08-17-2023 10:45-0500 Respiratory rate 16 /min Jonathan Ball Other [facility] Other 08-17-2023 10:45-0500 Systolic blood pressure 168 mm[Hg] Jonathan Ball Other [facility] Other 08-03-2023 11:15-0500 Body height 151.13 cm Massiel Pereira Other [facility] Other 06-16-2023 08:45-0400 Body height 151.13 cm [employer] Other [facility] Other 06-16-2023 08:45-0400 Body mass index (BMI) [Ratio] 35.58 kg/m2 [employer] Other [facility] Other 06-16-2023 08:45-0400 Body weight 81.29 kg [employer] Other [facility] Other 06-16-2023 08:45-0400 Diastolic blood pressure 76 mm[Hg] [employer] Other [facility] Other 06-16-2023 08:45-0400 Respiratory rate 18 /min [employer] Other [facility] Other 06-16-2023 08:45-0400 SaO2% (BldA) [Mass fraction] 96 % Olay[employer]a Ramos Other [facility] Other 06-16-2023 08:45-0400 Systolic blood pressure 141 mm[Hg] Olay[employer]a Ramos Other [facility] Other 06-09-2023 10:00-0400 Body height 151.13 cm Jonathan Ball Other [facility] Other 06-09-2023 10:00-0400 Body mass index (BMI) [Ratio] 35.78 kg/m2 Jonathan Ball Other [facility] Other 06-09-2023 10:00-0400 Body weight 81.74 kg Jonathan Ball Other [facility] Other 06-09-2023 10:00-0400 Diastolic blood pressure 84 mm[Hg] Joanthan Ball Other [facility] Other 06-09-2023 10:00-0400 Respiratory rate 16 /min Jonathan Ball Other [facility] Other 06-09-2023 10:00-0400 Systolic blood pressure 145 mm[Hg] Jonathan Ball Other [facility] Other 05-12-2023 11:15-0400 Body height 151.13 cm Massiel Pereira Other [facility] Other 05-05-2023 09:15-0400 Body height 151.13 cm Olayinka Ramos Other [facility] Other 05-05-2023 09:15-0400 Body mass index (BMI) [Ratio] 37.51 kg/m2 [employer] Other [facility] Other 05-05-2023 09:15-0400 Body weight 85.69 kg [employer] Other [facility] Other 05-05-2023 09:15-0400 Diastolic blood pressure 72 mm[Hg] [employer] Other [facility] Other 05-05-2023 09:15-0400 Respiratory rate 18 /min [employer] Other [facility] Other 05-05-2023 09:15-0400 SaO2% (BldA) [Mass fraction] 97 % [employer] Other [facility] Other 05-05-2023 09:15-0400 Systolic blood pressure 147 mm[Hg] [employer] Other [facility] Other 04-13-2023 14:00-0400 Body height 151.13 cm Jonathan Ball Other [facility] Other 04-13-2023 14:00-0400 Body mass index (BMI) [Ratio] 39.16 kg/m2 Jonathan Ball Other [facility] Other 04-13-2023 14:00-0400 Body weight 89.45 kg Jonathan Ball Other [facility] Other 04-13-2023 14:00-0400 Diastolic blood pressure 82 mm[Hg] Jonathan Ball Other [facility] Other 04-13-2023 14:00-0400 Respiratory rate 12 /min Jonathan Ball Other [facility] Other 04-13-2023 14:00-0400 Systolic blood pressure 166 mm[Hg] Jonathan Rabixo Other [facility] Other 04-07-2023 10:00-0400 Body height 151.13 cm [employer] Other [facility] Other 04-07-2023 10:00-0400 Body mass index (BMI) [Ratio] 39.89 kg/m2 [employer] Other [facility] Other 04-07-2023 10:00-0400 Body weight 91.13 kg [employer] Other [facility] Other 04-07-2023 10:00-0400 Diastolic blood pressure 81 mm[Hg] [employer] Other [facility] Other 04-07-2023 10:00-0400 Respiratory rate 18 /min [employer] Other [facility] Other 04-07-2023 10:00-0400 SaO2% (BldA) [Mass fraction] 95 % [employer] Other [facility] Other 04-07-2023 10:00-0400 Systolic blood pressure 171 mm[Hg] [employer] Other [facility] Other 03-04-2023 11:00-0400 Body height 151.13 cm Jonathan Rabixo Other [facility] Other 03-04-2023 11:00-0400 Body mass index (BMI) [Ratio] 39.48 kg/m2 Jonathna Rabixo Other [facility] Other 03-04-2023 11:00-0400 Body weight 90.18 kg Jonathan Ball Other [facility] Other 03-04-2023 11:00-0400 Diastolic blood pressure 83 mm[Hg] Jonathan Ball Other [facility] Other 03-04-2023 11:00-0400 Respiratory rate 12 /min Jonathan Ball Other [facility] Other 03-04-2023 11:00-0400 Systolic blood pressure 149 mm[Hg] Jonathan Ball Other [facility] Other 02-17-2023 08:45-0400 Body height 151.13 cm Nabor Mendocino II Other [facility] Other 02-17-2023 08:45-0400 Body mass index (BMI) [Ratio] 38.92 kg/m2 Nabor Mend[employer]ino [employer] Other [facility] Other 02-17-2023 08:45-0400 Body weight 88.91 kg Nabor Mendocino II Other [facility] Other 11-25-2022 09:30-0400 Body height 151.13 cm Jonathan Ball Other [facility] Other 11-25-2022 09:30-0400 Body mass index (BMI) [Ratio] 39.04 kg/m2 Jonathan Ball Other [facility] Other 11-25-2022 09:30-0400 Body weight 89.18 kg Jonathan Ball Other [facility] Other 11-25-2022 09:30-0400 Diastolic blood pressure 82 mm[Hg] Jonathan Ball Other [facility] Other 11-25-2022 09:30-0400 Respiratory rate 16 /min Jonathan Ball Other [facility] Other 11-25-2022 09:30-0400 SaO2% (BldA) [Mass fraction] 97 % Jonathan Ball Other [facility] Other 11-25-2022 09:30-0400 Systolic blood pressure 144 mm[Hg] Jonathan Ball Other [facility] Other 10-15-2022 10:15-0500 Body height 151.13 cm George Ryan Other [facility] Other 10-15-2022 10:15-0500 Body mass index (BMI) [Ratio] 36.34 kg/m2 George Ryan Other [facility] Other 10-15-2022 10:15-0500 Body temperature 97.8 [degF] George Rayn Other [facility] Other 10-15-2022 10:15-0500 Body weight 83.01 kg George Ryan Other [facility] Other 10-15-2022 10:15-0500 Diastolic blood pressure 78 mm[Hg] George Ryan Other [facility] Other 10-15-2022 10:15-0500 SaO2% (BldA) [Mass fraction] 97 % George Ryan Other [facility] Other 10-15-2022 10:15-0500 Systolic blood pressure 132 mm[Hg] George Ryan Other [facility] Other 10-02-2022 14:45-0500 Body height 151.13 cm Jonathan Ball Other [facility] Other 10-02-2022 14:45-0500 Body mass index (BMI) [Ratio] 36.34 kg/m2 Jonathan Ball Other [facility] Other 10-02-2022 14:45-0500 Body weight 83.01 kg Jonathan Ball Other [facility] Other 10-02-2022 14:45-0500 Diastolic blood pressure 68 mm[Hg] Jonathan Ball Other [facility] Other 10-02-2022 14:45-0500 Respiratory rate 16 /min Jonathan Ball Other [facility] Other 10-02-2022 14:45-0500 Systolic blood pressure 130 mm[Hg] Jonathan Ball Other [facility] Other 10-01-2022 09:45-0500 Body height 151.13 cm George Ryan Other [facility] Other 10-01-2022 09:45-0500 Body mass index (BMI) [Ratio] 35.74 kg/m2 George Ryan Other [facility] Other 10-01-2022 09:45-0500 Body temperature 97.8 [degF] George Ryan Other [facility] Other 10-01-2022 09:45-0500 Body weight 81.65 kg George Ryan Other [facility] Other 10-01-2022 09:45-0500 Diastolic blood pressure 84 mm[Hg] George Langsj Other [facility] Other 10-01-2022 09:45-0500 SaO2% (BldA) [Mass fraction] 91 % George Del Realsj Other [facility] Other 10-01-2022 09:45-0500 Systolic blood pressure 148 mm[Hg] George Shelby Other [facility] Other 09-21-2022 10:15-0500 Body height 151.13 cm Jonathan Ball Other [facility] Other 09-21-2022 10:15-0500 Body mass index (BMI) [Ratio] 36.34 kg/m2 Jonathan Ball Other [facility] Other 09-21-2022 10:15-0500 Body weight 83.01 kg Jonathan Ball Other [facility] Other 09-21-2022 10:15-0500 Diastolic blood pressure 90 mm[Hg] Jonathan Ball Other [facility] Other 09-21-2022 10:15-0500 Respiratory rate 16 /min Jonathan Ball Other [facility] Other 09-21-2022 10:15-0500 Systolic blood pressure 148 mm[Hg] Jonathan Ball Other [facility] Other 09-17-2022 13:00-0500 Body height 151.13 cm George Shelby Other [facility] Other 09-17-2022 13:00-0500 Body mass index (BMI) [Ratio] 35.35 kg/m2 Goerge Ryan Other [facility] Other 09-17-2022 13:00-0500 Body temperature 97.1 [degF] George Ryan Other [facility] Other 09-17-2022 13:00-0500 Body weight 80.74 kg George Del Realsj Other [facility] Other 09-17-2022 13:00-0500 Diastolic blood pressure 82 mm[Hg] George Del Realsj Other [facility] Other 09-17-2022 13:00-0500 SaO2% (BldA) [Mass fraction] 97 % George Del Realsj Other [facility] Other 09-17-2022 13:00-0500 Systolic blood pressure 160 mm[Hg] George Ryan Other [facility] Other 05-28-2022 09:15-0400 Body height 151.13 cm Nabor Mendocino II Other [facility] Other 05-28-2022 09:15-0400 Body mass index (BMI) [Ratio] 35.35 kg/m2 Nabor Omar II Other [facility] Other 05-28-2022 09:15-0400 Body weight 80.74 kg Nabor Mendocino II Other [facility] Other 04-16-2022 09:15-0400 Body height 151.13 cm Nabor Mendocino II Other [facility] Other 04-16-2022 09:15-0400 Body mass index (BMI) [Ratio] 35.35 kg/m2 Nabor Rodríguezle II Other [facility] Other 04-16-2022 09:15-0400 Body weight 80.74 kg Nabor Stollisle II Other [facility] Other 03-18-2022 11:45-0400 Body height 151.13 cm Nabor Rodríguezle II Other [facility] Other 03-18-2022 11:45-0400 Body mass index (BMI) [Ratio] 35.54 kg/m2 Nabor Rodríguezle II Other [facility] Other 03-18-2022 11:45-0400 Body weight 81.19 kg Nabor Nelson II Other [facility] Other 03-03-2022 11:53-0400 Heart rate 95 /min DO Jonathan Ball Work Phone: [facility] 03-03-2022 11:53-0400 Respiratory rate 20 /min DO Jonathan Ball Work Phone: [facility] 03-03-2022 11:25-0400 Body temperature 99.2 [degF] DO Jonathan Ball Work Phone: [facility] 03-03-2022 11:25-0400 Diastolic blood pressure 81 mm[Hg] DO Jonathan Ball Work Phone: [facility] 03-03-2022 11:25-0400 Inhaled oxygen flow rate 2 L/min DO Jonathan Ball Work Phone: [facility] 03-03-2022 11:25-0400 SaO2% (BldA) [Mass fraction] 95 % DO Jonathan Ball Work Phone: [facility] 03-03-2022 11:25-0400 Systolic blood pressure 149 mm[Hg] DO Jonathan Ball Work Phone: [facility] 03-03-2022 06:00-0400 Body weight 83.8 kg DO Jonathan Ball Work Phone: [facility] 03-02-2022 10:15-0400 Body height 153.67 cm DO Jonathan Ball Work Phone: [facility] 03-02-2022 10:15-0400 Body mass index (BMI) [Ratio] 35.4 kg/m2 DO Jonathan Ball Work Phone: [facility] 02-11-2022 15:00-0400 Body height 151.13 cm Nabor Mendocino II Other [facility] Other 02-11-2022 15:00-0400 Body mass index (BMI) [Ratio] 35.74 kg/m2 Nabor Mendocino II Other [facility] Other 02-11-2022 15:00-0400 Body weight 81.65 kg Nabor Mendocino II Other [facility] Other 11-20-2021 14:00-0500 Body height 151.13 cm Nabor Omar II Other [facility] Other 11-20-2021 14:00-0500 Body mass index (BMI) [Ratio] 36.54 kg/m2 Nabor Mendocino II Other [facility] Other 11-20-2021 14:00-0500 Body weight 83.46 kg Nabor Omar II Other [facility] Other Encounters Encounter Date Encounter Type Care Provider Facility Start: 04-28-2024 End: 04-28-2024 ambulatory [facility] Work Phone: Start: 04-28-2024 End: 04-28-2024 Patient encounter procedure [facility] Work Phone: Start: 03-15-2024 Non-patient / Non-visit [facility] Work Phone: Start: 03-09-2024 End: 03-09-2024 ambulatory [facility] Work Phone: Start: 03-09-2024 End: 03-09-2024 Patient encounter procedure [facility] Work Phone: Start: 02-29-2024 End: 02-29-2024 ambulatory [facility] Work Phone: Start: 02-29-2024 End: 02-29-2024 Patient encounter procedure [facility] Work Phone: Start: 02-16-2024 End: 02-16-2024 ambulatory [facility] Work Phone: Start: 02-16-2024 End: 02-16-2024 Patient encounter procedure [facility] Work Phone: Start: 01-26-2024 End: 01-26-2024 ambulatory RAYMOND SAUCEDA Not Available Start: 01-11-2024 Non-patient / Non-visit [facility] Work Phone: Start: 01-06-2024 End: 01-06-2024 ambulatory [facility] Work Phone: Start: 01-06-2024 End: 01-06-2024 Patient encounter procedure [facility] Work Phone: Start: 01-05-2024 End: 01-05-2024 ambulatory [facility] Work Phone: Start: 01-05-2024 End: 01-05-2024 Patient encounter procedure [facility] Work Phone: Start: 12-21-2023 Non-patient / Non-visit [facility] [facility] Work Phone: Start: 12-09-2023 End: 12-09-2023 ambulatory DO Jonathan Smith Work Phone: [facility] Work Phone: Start: 12-09-2023 End: 12-09-2023 Patient encounter procedure DO Jonathan Smith Work Phone: [facility] Work Phone: Start: 12-06-2023 End: 12-06-2023 ambulatory Jonathan Smith Other [facility] [employer] Other Start: 12-06-2023 Telephone encounter Jonathan Smith [facility] Start: 11-23-2023 End: 11-23-2023 Patient encounter procedure DO Jonathan Smith Work Phone: [facility] Work Phone: Start: 11-17-2023 End: 11-17-2023 Patient encounter procedure DO Jonathan Smith Work Phone: [facility] Work Phone: Start: 11-16-2023 Non-patient / Non-visit DO Colton Smith Work Phone: [facility] Work Phone: Start: 09-21-2023 IBT FOR OBESITY GROU P 2-10 30M Massiel Pereira [facility] Start: 09-21-2023 End: 09-21-2023 ambulatory Jonathan Smith [facility] [employer] Other Start: 09-21-2023 Registered Recurring DO Olu in Earl Work Phone: [facility] Work Phone: Start: 09-21-2023 End: 09-21-2023 Patient encounter procedure DO Jonathan Smith Work Phone: [facility] Work Phone: Start: 09-14-2023 End: 09-14-2023 ambulatory Massiel Fitt Other [facility] Other Start: 09-14-2023 IBT FOR OBESITY GROU P 2-10 30M Massiel Fitt [facility] Start: 09-14-2023 End: 09-14-2023 Patient encounter procedure DO Jonathan Smith Work Phone: [facility] Work Phone: Start: 09-10-2023 End: 09-10-2023 ambulatory Jonathan Smith Other [facility] Other Start: 09-10-2023 Telephone encounter Jonathan Smith B[facility]KI [facility] Start: 09-09-2023 End: 09-09-2023 ambulatory Jonathan Smith Other [employer] Other Start: 09-09-2023 Office outpatient vi sit 25 minutes Jonathan Ball [facility] Start: 08-19-2023 End: 08-19-2023 ambulatory Olayinka Ramos Other [facility] Other Start: 08-19-2023 Follow-up encounter Olayinka Ramos [facility] Start: 08-18-2023 End: 08-18-2023 ambulatory Jonathan Smith Other [employer] Other Start: 08-18-2023 Telephone encounter Jonathan Smith [facility] Start: 08-17-2023 End: 08-17-2023 ambulatory Jonathan Smith Other [employer] Other Start: 08-17-2023 Office outpatient vi sit 15 minutes Jonathan Ball [facility] Start: 08-03-2023 End: 08-03-2023 ambulatory Massiel Fitt Other [employer] Other Start: 08-03-2023 IBT FOR OBESITY GROU P 2-10 30M Massiel Fitt [facility] Start: 07-14-2023 End: 07-14-2023 ambulatory Jonathan Smith Other [employer] Other Start: 07-14-2023 Telephone encounter Jonathan Smith BECKI [facility] Start: 07-08-2023 End: 07-08-2023 ambulatory Olayinka Ramos Other [employer] Other Start: 07-08-2023 Telephone encounter Olayinka Keller [facility] Start: 07-06-2023 End: 07-06-2023 ambulatory Massiel Fitt Other [employer] Other Start: 07-06-2023 IBT FOR OBESITY GROU P 2-10 30M [facility] Start: 07-02-2023 End: 07-02-2023 ambulatory oJnathan Smith Other [employer] Other Start: 07-02-2023 Telephone encounter Jonathan Smith FP [facility] Start: 06-16-2023 End: 06-16-2023 ambulatory Olayinka Ramos Other [employer] Other Start: 06-16-2023 Follow-up encounter Olayinka Ramos [facility] Start: 06-09-2023 End: 06-09-2023 ambulatory Jonathan Smith Other [employer] Other Start: 06-09-2023 Office outpatient vi sit 25 minutes Jonathan Earl [facility] Start: 06-09-2023 Telephone encounter Jonathan Smith FP [facility] Start: 06-01-2023 End: 06-01-2023 ambulatory Massiel Fitt Other [employer] Other Start: 06-01-2023 IBT FOR OBESITY GROU P 2-10 30M [facility] Start: 05-25-2023 End: 05-25-2023 ambulatory Jonathan Smith Other [employer] Other Start: 05-25-2023 Telephone encounter Jonathan CONNELL [facility] Start: 05-12-2023 End: 05-12-2023 ambulatory Massiel Pereira Other [facility] Other Start: 05-12-2023 IBT FOR OBESITY GROU P 2-10 30M Massiel Randall [facility] Start: 05-05-2023 End: 05-05-2023 ambulatory Olayinka Richard Other [employer] Other Start: 05-05-2023 [facility] Start: 05-05-2023 Telephone encounter Olayinka [facility] Start: 04-24-2023 End: 04-24-2023 ambulatory Jonathan Smith Other [employer] Other Start: 04-24-2023 Telephone encounter Jonathan CONNELL [facility] Start: 04-21-2023 End: 04-21-2023 ambulatory Jonathan Smith Facility:[facility] Start: 04-13-2023 End: 04-13-2023 ambulatory Jonathan Smith Other [employer] Other Start: 04-13-2023 Office outpatient vi sit 25 minutes Jonathan Smith [facility] Start: 04-08-2023 End: 04-08-2023 ambulatory Jonathan Smith Other [employer] Other Start: 04-08-2023 Telephone encounter Jonathan CONNELL [facility] Start: 04-07-2023 End: 04-07-2023 ambulatory Olayinka Ramos Other [employer] Other Start: 04-07-2023 Nutrition therapy Olayinka [facility] Start: 03-12-2023 End: 03-12-2023 ambulatory Jonathan Smith Other [employer] Other Start: 03-12-2023 Telephone encounter Jonathan CONNELL [facility] Start: 03-04-2023 End: 03-04-2023 ambulatory Jonathan Smith Other [employer] Other Start: 03-04-2023 Patient encounter procedure Jonathan Smith [facility] Start: 03-03-2023 Office outpatient vi sit 15 minutes Kiana Munson [facility] Start: 03-03-2023 End: 03-03-2023 Patient encounter procedure DO Jonathan Ball Work Phone: [facility] Start: 03-03-2023 End: 03-03-2023 ambulatory DO Jonathan Ball Work Phone: [facility] Work Phone: Start: 02-17-2023 End: 02-17-2023 Patient encounter procedure DO Jonathan Ball Work Phone: [facility] Start: 02-17-2023 End: 02-17-2023 ambulatory DO Jonathan Ball Work Phone: [facility] Work Phone: Start: 02-03-2023 End: 02-03-2023 Patient encounter procedure DO Jonathan Ball Work Phone: [facility] [address] Work Phone: Start: 01-21-2023 End: 01-22-[address] NABOR WILSON Facility:[facility] Start: 11-27-2022 Telephone encounter Jonathan Smith [facility] Start: 11-27-2022 End: 11-28-[address] NABOR WILSON [facility] Other Start: 11-25-2022 End: 11-25-2022 ambulatory Jonathan Earl Other [facility] Other Start: 11-25-2022 Office outpatient vi sit 25 minutes Jonathan Ball [facility] Start: 10-28-2022 End: 10-28-2022 ambulatory Kiana Munson Other [employer] Other Start: 10-28-2022 Office outpatient vi sit 15 minutes Kiana Calvrosales [facility] Start: 10-15-2022 End: 10-15-2022 ambulatory George Ryan Other [employer] Other Start: 10-15-2022 Office outpatient vi sit 10 minutes George Ryan [facility] Start: 10-08-2022 End: 10-08-2022 ambulatory DO Jonathan Ball Work Phone: [facility] Work Phone: Start: 10-08-2022 End: 10-08-2022 Patient encounter procedure DO Jonathan Ball Work Phone: [facility] [address] [place] Work Phone: Start: 10-07-2022 End: 10-07-2022 ambulatory Kiana Munson Other [employer] Other Start: 10-07-2022 Office outpatient vi sit 15 minutes Kiana Ayalarosales [facility] Start: 10-05-2022 End: 10-06-[address] NABOR WILSON Facility: Start: 10-05-2022 End: 10-05-2022 ambulatory DO Jonathan Ball Work Phone: [facility] Work Phone: Start: 10-05-2022 End: 10-05-2022 Patient encounter procedure DO Jonathan Ball Work Phone: [facility] [place] Work Phone: Start: 10-02-2022 End: 10-02-2022 ambulatory Jonathan Ball Other [facility] Other Start: 10-02-2022 Office outpatient vi sit 15 minutes Jonathan Smith [facility] Start: 10-01-2022 End: 10-01-2022 ambulatory George Ryan Other [employer] Other Start: 10-01-2022 Office outpatient vi sit 25 minutes George Ryan [facility] Vascular Surgery Start: 09-29-[address] Jonathan Smith Facility:[facility] Start: 09-28-2022 End: 09-28-2022 ambulatory Jonathan Smith Other [employer] Other Start: 09-28-2022 Telephone encounter Jonathan Smith [facility] Start: 09-24-2022 End: 09-24-2022 ambulatory DO Jonathan Smith Work Phone: [facility] Work Phone: Start: 09-24-2022 End: 09-24-2022 Patient encounter procedure DO Jonathan Smith Work Phone: [facility]Electro[facility] Work Phone: Start: 09-24-[address] Jonathan Smith Facility:[facility] Start: 09-23-2022 End: 09-23-2022 Patient encounter procedure DO Jonathan Smith Work Phone: [facility] Start: 09-23-2022 End: 09-23-2022 ambulatory DO Jonathan Smith Work Phone: [facility] Work Phone: Start: 09-23-2022 Office outpatient ne w 45 minutes Kiana Munson [facility] Start: 09-21-2022 End: 09-21-2022 ambulatory Jonathan Smith Other [employer] Other Start: 09-21-2022 Office outpatient vi sit 25 minutes Jonathan Smith [facility] Start: 09-17-2022 Office outpatient vi sit 25 minutes George Ryan [facility] Vascular Surgery Start: 09-17-2022 End: 09-17-2022 ambulatory DO Jonathan Smtih Work Phone: [facility] Work Phone: Start: 09-17-2022 End: 09-17-2022 Patient encounter procedure DO Jonathan Smith Work Phone: [facility] [place] [facility] Start: 09-08-2022 End: 09-08-2022 ambulatory DO Jonathan Smith Work Phone: [facility] Work Phone: Start: 09-08-2022 End: 09-08-2022 Patient encounter procedure DO Jonathan Smith Work Phone: [facility] [place] Work Phone: Start: 08-31-2022 End: 09-01-[address] NABOR WILSON Facility:[facility] Start: 08-24-2022 Adult health examination Olayinka Ramos Other [facility] Other Start: 08-24-2022 Pre-procedure evaluation check Olayinka Ramos Other [facility] Other Start: 08-14-2022 End: 08-14-[address] JONATHAN SMITH Facility:[facility] Start: 08-13-2022 End: 08-14-[address] JONATHAN SMITH Facility:[facility] Start: 08-04-2022 End: 08-05-[address] NABOR WILSON Facility:[facility] Start: 06-09-2022 End: 06-10-[address] JONATHAN SMITH Facility:[facility] Start: 05-28-2022 (Post-Op) Post-Op Nabor Nelson II [facility] Start: 05-28-2022 End: 05-28-2022 ambulatory Nabor Nelson II Other [facility] Other Start: 05-28-2022 End: 05-28-2022 Patient encounter procedure DO Jonathan Earl Work Phone: [facility] Start: 05-17-2022 End: 05-20-2022 Evaluation and management of inpatient DR YOVANA RG Facility:[facility] Start: 04-16-2022 (Post-Op) Post-Op Nabor Mendocino II [facility] Start: 04-16-2022 End: 04-16-2022 ambulatory Nabor Mendocino II Other [facility] Other Start: 04-16-2022 End: 04-16-2022 Patient encounter procedure DO Jonathan Earl Work Phone: [facility] Start: 03-26-2022 (Post-Op) Post-Op Nabor Omar II [facility] Start: 03-26-2022 End: 03-26-2022 ambulatory Nabor Omar II Other [facility] Other Start: 03-24-2022 End: 04-15-[address] JONATHAN SMITH Facility:[facility] Start: 03-18-2022 (Post-Op) Post-Op Nabor Mendocino II [facility] Start: 03-18-2022 End: 03-18-2022 ambulatory Nabor Mendocino II Other [facility] Other Start: 03-18-2022 Telephone encounter Nabor Mendocino II [facility] Start: 03-04-2022 End: 03-04-2022 ambulatory Nabor Omar II Other [employer] Other Start: 03-04-2022 Telephone encounter Nabor Omar II [facility] Start: 03-02-2022 End: 03-03-2022 Admission to same day surgery center DO Jonathan Earl Work Phone: [facility] [place] Start: 02-27-2022 End: 02-27-2022 ambulatory Nabor Mendocino II Other [facility] Other Start: 02-27-2022 Telephone encounter Nabor Mendocino II [facility] Start: 02-26-2022 End: 02-26-2022 Patient encounter procedure DO Jonathan Ball Work Phone: [facility]Pre-Surgical [facility] Start: 02-20-2022 (Prolonged) Prolonge d Services Nabor Stollisle II [facility] Start: 02-20-2022 End: 02-20-2022 ambulatory Nabor Omar II Other [facility] Other Start: 02-11-2022 End: 02-11-2022 ambulatory Nabor Mendocino II Other [employer] Other Start: 02-11-2022 Patient encounter procedure Nabor Rodríguezle II [facility] Start: 01-30-2022 End: 01-31-[address] NONE LISTED REQUEST Facility: Start: 01-15-2022 End: 01-15-2022 ambulatory Nabor Mendocino II Other [facility] Other Start: 01-15-2022 Telephone encounter Nabor Omar II [facility] Start: 11-20-2021 End: 11-20-2021 ambulatory Nabor Mendocino II Other [employer] Other Start: 11-20-2021 Office outpatient ne w 60 minutes Nabor Mendocino II [facility] Procedures Date Procedure Procedure Detail [...] replacement of left knee joint DO Jonathan Rabixo Work Phone: Start: 03-02-2022 X-ray of left knee DO B enjamin Ball Work Phone: Start: 10-04-2018 Preoperative cardiov ascular examination [employer] Other Start: 10-04-2018 Preoperative pulmona ry examination [employer] Other Start: 06-29-2017 Screening for osteoporosis [employer] Start: 07-08-2015 General examination of patient [employer] Other Depression screening [employer] Other Plan of Treatment Date Care Activity Detail Author Start: 10-08-2022 Hemolytic complement CH50 level [facility] Start: 10-08-2022 [facility] Start: 03-03-2022 [facility] Work Phone: Start: 03-02-2022 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 [facility] Work Phone: Start: 03-02-2022 Hospital admission [facility] Work Phone: Complement C3 [Mass/ volume] in Serum or Plasma [facility] Complement C4 [Mass/ volume] in Serum or Plasma [facility] Cryofibrinogen [Pres ence] in Plasma [facility] Cryoglobulin [Presence] in Serum [facility] IgA [Mass/volume] in Serum or Plasma [facility] IgE [Units/volume] i n Serum or Plasma [facility] IgG [Mass/volume] in Serum or Plasma [facility] IgM [Mass/volume] in Serum or Plasma [facility] Patient referral [facility] Work Phone: [facility] Immunizations Immunization Date Immunization Notes Care Provider Fa jaylyn 07-23-2023 influenza virus vaccine, unspecified formulation DO [employer] Work Phone: [facility] 07-23-2023 influenza, high dose seasonal, preservative-free Massielcrowin Pereira Other [employer] Other 07-09-2021 COVID-19 mRNA-1273 (Moderna) DO [employer] Work Phone: [facility] 06-16-2021 influenza virus vaccine, split virus (incl. purified surface antigen) Olayinka Ramos Other [employer] Other 06-16-2021 influenza virus vaccine, unspecified formulation DO [employer] Work Phone: [facility] 10-16-2020 COVID-19 mRNA-1273 (Moderna) DO [employer] Work Phone: [facility] 09-19-2020 COVID-19 mRNA-1273 (Moderna) DO [employer] Work Phone: [facility] 05-21-2020 pneumococcal conjuga te vaccine, 13 valent Olayinka Ramos Other [facility] 06-26-2019 influenza, seasonal, injectable [facility] 06-06-2018 influenza, injectabl e, quadrivalent, preservative free [facility] 09-16-2015 pneumococcal polysaccharide vaccine, 23 valent Jonathan Smith Other [facility] 06-28-2013 tetanus and diphther ia toxoids, adsorbed, preservative free, for adult use (5 Lf of tetanus toxoid and 2 Lf of diphtheria toxoid) Olayinka Ramos Other [facility] 06-14-2012 zoster vaccine, live Whitney Smith Other [facility] 08-07-2009 pneumococcal conjuga te vaccine, 7 valent Jonathan Smith Other [facility] 08-07-2009 pneumococcal Conjuga te, unspecified formulation DO Jonathan Smith Work Phone: [facility] 08-02-2009 novel [id number], preservative-free, injectable [facility] 07-17-2009 pneumococcal polysaccharide vaccine, 23 valent Olayinka Ramos Other [facility] Payers Date Payer Category Payer Self-pay [id number] 1960 Medicare [id number] 2.1 [id number] 1960 Self-pay [id number] 1960 Unknown [id number] . [id number] 1954 Unknown [id number] .16. [id number] 1954 Unknown [id number] 2.16.84 0.1.881259.3.579.2.593 1954 Unknown [id number] 2.16.84 0.1.657295.3.579.2.593 1954 Unknown [id number] 2.16.84 0.1.293609.3.579.2.593 1954 Unknown [id number] 2.16.84 0.1.134275.3.579.2.593 1954 Unknown [id number] 2.16.84 0.1.203765.3.579.2.593 1954 Unknown [id number] 2.16.84 0.1.341572.3.579.2.593 1954 Unknown [id number] 2.16.84 0.1.284693.3.579.2.593 1954 Unknown [id number] 2.16.84 0.1.913059.3.579.2.593 1954 Unknown [id number] 2.16.84 0.1.193444.3.579.2.593 1954 Unknown [id number] 2.16.84 0.1.369279.3.579.2.593 1954 Unknown [id number] 2.16.84 0.1.920617.3.579.2.1259 Unknown [facility] [id number] Unknown Unknown [id number] 2.16.84 0.1.160825.3.579.2.593 Unknown [id number] 2.16.8 40.1.129338.3.579.2.531 Unknown [id number] 2.16.8 40.1.855796.3.579.2.531 Unknown [id number] 2.16.8 40.1.926678.3.579.2.531 Unknown [id number] 2.16.8 40.1.220496.3.579.2.531 Social History Date Type Detail Facility Unknown if ever smoked [employer] Other Sex Assigned At Sex Assigned At Bir [facility] Other Start: 03-02-2022 End: 03-02-2022 Tobacco smoking status IDIS Ex-smoker (finding) [facility] Start: 1955 Sex Assigned At Female [facility] Start: 03-06-2024 Tobacco smoking status NHIS Never smoked tobacco (finding) [facility] Medical Equipment Procedure Code Equipment Code Equipment Origin al Text Equipment Identifier Dates Arthroplasty, knee, total, minimally invasive Orthopaedic cement, non-medicated [id number] FDA Start: 03-02-2022 Arthroplasty, knee, total, minimally invasive Orthopaedic cement, non-medicated ()[id number] FDA Start: 03-02-2022 Arthroplasty, knee, total, minimally invasive Uncoated knee femur prosthesis ()[id number] FDA Start: 03-02-2022 Arthroplasty, knee, total, minimally invasive Tibial insert ()[id number] FDA Start: 03-02-2022 Arthroplasty, knee, total, minimally invasive Uncoated knee tibia prosthesis, metallic ()[id number] FDA Start: 03-02-2022 Arthroplasty, knee, total, minimally invasive Polyethylene patella prosthesis ()[id number] FDA Start: 03-02-2022 Arthroplasty, knee, total, minimally invasive Knee stem ()[id number] FDA Start: 03-02-2022 Goals Date Patient Goal Desired Activity /State Functional Status Date Assessment Result Facility 03-03-2022 Functional status Patient at Baseline [facility] Work Phone: Mental Status Date Assessment Result Facility 03-03-2022 Cognitive function Cognitive Sta tus Patient at Baseline [facility] Work Phone: Clinical Notes 11-20-2021 to 02-29-2024 Note Date & Type Note Facility 02-29-2024 Evaluation note Authored April 28, 2024 8:38am Assessment: Start weight: 200.9 lbs. She is down 36.2 lbs. today with a weight of 164.7 lbs. She is up 2.0 lbs.since last visit with on 02/29/2024. Starting Date: 04-07-2023. 1. Abnormal weight gain 2. Obesity-the patient will treat with long-term lifestyle changes of improved nutrition, increased exercise and activity, stress reduction, adequate sleep and behavioral modification versus short-term dieting. [ ] 3. [ ] 4. [ ] 5. [ ] 6. [ ] 7. [ ] 8. [ ] 9. [ ] 10. [ ] 11. [ ] Follow up with me in 6 weeks. New labs needed: [TSH, cholesterol profile, and CMP] The patient was instructed to consider logging all foods and caloric beverages. I highly recommended minimizing or stopping caloric beverages including alcohol. The importance of preplanning, shopping at the edge of the store, decreasing unhealthy food cues and environmental control stressed. I recommend packing snacks and meals when out of the home. Remove trigger/unhealthy foods if possible from the home. No macronutrient is completely restricted. We discussed the addictive nature and unhealthy biological changes that occur with ultra processed food. We discussed the brain and peripheral biological changes with obesity that make it a chronic disease. Importance of cooking most food items from scratch discussed. No skipping any meals. Avoid added sugar, refined starches, and added fats. I highly recommended preference for whole foods/real foods. Foods from the farm, not from the factory. The plate method discussed and handout given. Lean unprocessed protein with each meal and each snack to help control appetite, decrease cravings and lessen muscle loss with weight loss advised. Consider use of a protein shake or protein bar instead of missing a meal. The patient will try to get at least 5 or more servings of low carbohydrate veggies/salads daily. Recommend regular follow-up with our registered dietitian. Benefits of regular exercise including cardio and resistance training discussed and recommended as appropriate for the patient. Slowly increase activity. Our exercise program was recommended with our conditioner tender/obesity exercise group. Handout given. Our free weekly group support/food triggers program was highly recommended to help with long-term behavioral change and support. Handout given. The patient must start healthy behavioral changes. The patient was instructed on good sleep hygiene and on the importance of adequate sleep. Circadian rhythm and the importance of mealtime discussed. I recommended stress reduction. Medication addition and subtraction options discussed. Risks and benefits of prescribed meds discussed. Initial [id number] interview/evaluation. The patient was counseled in detail on the options for weight loss in an individual setting. [ ] minutes was spent caring for the patient, counseling/educating patient on the options for the treatment of obesity and related healthcare issues. The program's treatment goals were reviewed with the patient. Each aspect of the program was discussed with the patient. [facility] Work Phone: [phone]) 906-953501-09-2024 Evaluation note* Encounter Date Diagnosis Assessment Notes Treatment Notes Treatment Clinical Notes Sep, Obesity, unspecified classification, unspecified obesity type, unspecified whether serious comorbidity present (ICD-10 - E66.9) Sep, BMI 33.0-33.9,adult (ICD-10 - Z68.33) Sep, Other Summary of Visi t: (A) Overview of what the gut consists of (stomach, intestines) (B) Gut microbiome (C) How nutrition, exercise, sleep, and stress impact gut health (D) Probiotics and Prebiotics [employer] Other 01-02-2024 Evaluation note* Encounter Date Diagnosis Assessment Notes Treatment Notes Treatment Clinical Notes Sep, Obesity, unspecified classification, unspecified obesity type, unspecified whether serious comorbidity present (ICD-10 - E66.9) Sep, BMI 33.0-33.9,adult (ICD-10 - Z68.33) Sep, Other Summary of Visi t: (A) Acute vs Chronic Inflammation (B) Inflammation's connection to chronic disease (C) Food's relationship to inflammation (D) Anti Inflammatory foods [facility] Other 2023 Evaluation note* Encounter Date Diagnosis Assessment Notes Treatment Notes Treatment Clinical Notes Aug, Cervical spondylosis (ICD-10 - M47.812) [facility] Other 12-28-2023 Evaluation note* Encounter Date Diagnosis [...] use, the patient reduces the risk for CO, CVA, HTN, cardiac dysrhythmias and sudden cardiac [...] index [BMI] 35.0-35.9, adult (ICD-10 - Z68.35) [facility] Other 12-07-2023 Evaluation note* Encounter Date Diagnosis [...] Patient without side effect-A1c 5.9% February 2023 -[employer] membership, working with staff trainer -Follow up in clinic in 12 weeks -Patient reports highest A1c of 6.7% subjectivelyThis note was created with voice recognition software. Please excuse errors in compound filler. Aug, Dietary surveillance and counseling (ICD-10 - [...] 6.7% subjectivelyContinue with Ozempic. Denies side effects [facility] Other 12-05-2023 Evaluation note* Encounter Date Diagnosis [...] needed. Notify office w/ any s/s infection [facility] Other 11-21-2023 Evaluation note* Encounter Date Diagnosis [...] variety means for them and tip sharing [facility] Other 10-24-2023 Evaluation note* Encounter Date Diagnosis [...] patient set personal goal using given handout. [facility] Other 10-04-2023 Evaluation note* Encounter Date Diagnosis [...] 2 mg once weekly.-A1c 5.9% February 2023 -[employer] membership, working with staff trainer -Follow up in clinic in 8 weeks -Patient reports highest A1c of 6.7% subjectivelyThis note was created with voice recognition software. Please excuse errors in compound filler. Jun, Dietary surveillance and counseling (ICD-10 - [...] 6.7% subjectivelyContinue with Ozempic. Denies side effects [facility] Other 09-27-2023 Evaluation note* Encounter Date Diagnosis [...] use, the patient reduces the risk for CO, CVA, HTN, cardiac dysrhythmias and sudden cardiac [...] [BMI ] 35.0-35.9, adult (ICD-10 - Z68.35) [facility] Other 09-19-2023 Evaluation note* Encounter Date Diagnosis [...] fat, etc.) (D) Identifying whole grain products [facility] Other 09-12-2023 Evaluation note* Encounter Date Diagnosis Assessment Notes Treatment Notes Treatment Clinical Notes May, Mucopurulent chronic bronchitis (ICD-10 - J41.1) [facility] Other 08-30-2023 Evaluation note* Encounter Date Diagnosis [...] Patient set the following goals: NOT REVIEWED [facility] Other 08-23-2023 Evaluation note* Encounter Date Diagnosis [...] titrate up as tolerated-A1c 5.9% February 2023 -[employer] membership -Follow up in clinic in 6 weeks -Patient reports highest A1c of 6.7% subjectivelyThis note was created with voice recognition software. Please excuse errors in compound filler. Apr, Dietary surveillance and counseling (ICD-10 - [...] with the patient, and documenting clinical information. [facility] Other 08-12-2023 Evaluation note* Encounter Date Diagnosis Assessment Notes Treatment Notes Treatment Clinical Notes Apr, PSVT (paroxysmal supraventricular tachycardia) (ICD-10 - I47.1) [facility] Other 08-01-2023 Evaluation note* Encounter Date Diagnosis [...] use, the patient reduces the risk for CO, CVA, HTN, cardiac dysrhythmias and sudden cardiac [...] PSVT (paroxysmal supraventricular tachycardia) (ICD-10 - I47.1) [facility] Other 07-26-2023 Evaluation note* Encounter Date Diagnosis [...] voice recognition software. Please excuse errors in compound filler. Mar, Dietary surveillance and counseling (ICD-10 - [...] with the patient, and documenting clinical information. [facility] Other 06-22-2023 Evaluation note* Encounter Date Diagnosis [...] use, the patient reduces the risk for CO, CVA, HTN, cardiac dysrhythmias and sudden cardiac [...] - Z85.3) B/L mastectomy. No s/s recurrence [facility] Other 06-21-2023 Evaluation note* Encounter Date Diagnosis [...] tolerated the injection well without adverse reaction. [facility] Other 06-07-2023 Evaluation note* Encounter Date Diagnosis Assessment Notes Treatment Notes Treatment Clinical Notes Feb, Aftercare following joint replacement surgery (ICD-10 - Z47.1) Feb, Presence of left artificial knee joint (ICD-10 - Z96.652) Feb, [place] [facility] [place] [facility] on 03/02/2022 Happy with surgical result Follow up as needed with standing AP and lateral xrays of the left knee Patient instructed to call with any questions or concerns. [facility] Other 03-17-2023 Evaluation note* Encounter Date Diagnosis Assessment Notes Treatment Notes Treatment Clinical Notes Nov, Stage 3a chronic kidney disease (ICD-10 - N18.31) [facility] Other 03-15-2023 Evaluation note* Encounter Date Diagnosis [...] use, the patient reduces the risk for CO, CVA, HTN, cardiac dysrhythmias and sudden cardiac [...] appears to be in remission Restarting biologics. [facility] Other 02-15-2023 Evaluation note* Encounter Date Diagnosis [...] dorsal aspect of her right ring finger. [facility] Other 02-02-2023 Evaluation note* Encounter Date Diagnosis [...] plan. All of her questions were addressed. [facility] Other 01-25-2023 Evaluation note* Encounter Date Diagnosis Assessment Notes Treatment Notes Treatment Clinical Notes Sep, Lesion of finger (ICD-10 - L98.9) Patient is progressing well. Continue local wound care as previously instructed with neosporin. Continue blood thinner as prescribed. Continue to follow up with vascular for blood flow tests and rheumatology. Call with questions/concerns. Sep, Ischemia (ICD-10 - I99.8) [facility] Other 01-20-2023 Evaluation note* Encounter Date Diagnosis [...] otherwise completely resolved. Etiology remains a mystery [facility] Other 01-19-2023 Evaluation note* Encounter Date Diagnosis [...] thrombus. I am recommending she see a heat regulator for the severe calcification identified on her [...] calling Dr. Jonathan smith and Dr. Micki Soto for further advice and work-up for [...] specified soft tissue disorders (ICD-10 - M79.89) [facility] Other 01-16-2023 Evaluation note* Encounter Date Diagnosis Assessment Notes Treatment Notes Treatment Clinical Notes Sep, Essential (primary) hypertension (ICD-10 - I10) [facility] Other 01-11-2023 Evaluation note* Encounter Date Diagnosis [...] treatment plan. Sep, Ischemia (ICD-10 - I99.8) [facility] Other 01-09-2023 Evaluation note* Encounter Date Diagnosis [...] prior to bedtime. Weight loss. Continue PPI [facility] Other 01-05-2023 Evaluation note* Encounter Date Diagnosis [...] digits o f hand (ICD-10 - I99.8) [facility] Other 09-15-2022 Evaluation note* Encounter Date Diagnosis Assessment Notes Treatment Notes Treatment Clinical Notes May, Aftercare following joint replacement surgery (ICD-10 - Z47.1) May, Presence of left artificial knee joint (ICD-10 - Z96.652) May, Status post left knee replacement (ICD-10 - Z96.652) May, [place] [facility] [place] [facility] on 03/02/2022 Doing well. As I explained to her I am comfortable with her restarting her rheumatological medications if her and her registered sales assistant feel like she needs them. As we [...] to call with any questions or concerns. [facility] Other 08-04-2022 Evaluation note* Encounter Date Diagnosis Assessment Notes Treatment Notes Treatment Clinical Notes Apr, Aftercare following joint replacement surgery (ICD-10 - Z47.1) Apr, Presence of left artificial knee joint (ICD-10 - Z96.652) Apr, Status post left knee replacement (ICD-10 - Z96.652) Apr, Other [facility]KA at [facility] on 03/02/2022 Doing well. No concerns for incision at this time. I did inform the patient that I be comfortable with her restarting her rheumatoid medications at this point in the postoperative period. However, the patient would like to wait until she comes back from [place]. I think that is perfectly appropriate. Patient may continue activities as tolerated. She recently finished PT and is not planning to continue it at this time. Continue taking [id number] anti-inflammatories as needed for assistance with swelling and pain associated with the operative extremity. Follow-up in 6 weeks for repeat examination and long standing x-rays. [facility] Other 07-14-2022 Evaluation note* Encounter Date Diagnosis Assessment Notes Treatment Notes Treatment Clinical Notes Mar, Aftercare following joint replacement surgery (ICD-10 - Z47.1) Mar, Presence of left artificial knee joint (ICD-10 - Z96.652) Mar, Status post left knee replacement (ICD-10 - Z96.652) Mar, Other [facility] at [facility] on 03/02/2022 Doing really well. Zipline removed today. As we had discussed preoperatively and as her registered sales assistant had recommended, we will plan for her [...] 3 view x-rays of the left knee. [facility] Other 07-06-2022 Evaluation note* Encounter Date Diagnosis Assessment Notes Treatment Notes Treatment Clinical Notes Mar, Aftercare following joint replacement surgery (ICD-10 - Z47.1) [facility] Other 07-06-2022 Evaluation note* Encounter Date Diagnosis Assessment Notes Treatment Notes Treatment Clinical Notes Mar, Aftercare following joint replacement surgery (ICD-10 - Z47.1) Mar, Presence of left artificial knee joint (ICD-10 - Z96.652) Mar, Status post left knee replacement (ICD-10 - Z96.652) Mar, Other [facility] at [facility] on 03/02/2022 Doing well. Given her [...] 3 view x-rays of the left knee. [facility] Other 06-17-2022 Evaluation note* Encounter Date Diagnosis Assessment Notes Treatment Notes Treatment Clinical Notes Feb, Arthritis of left knee (ICD-10 - M17.12) [facility] Other 06-10-2022 Evaluation note* Encounter Date Diagnosis [...] patient could proceed with surgery safely. The postal service sectional center manager was vital for surgery timing and [...] plans. Prolonged services time spent: 32 minutes [facility] Other 06-01-2022 Evaluation note* Encounter Date Diagnosis Assessment Notes Treatment Notes Treatment Clinical Notes Feb, Other osteoporosis without current pathological fracture (ICD-10 - M81.8) Feb, Arthritis of left knee (ICD-10 - M17.12) Feb, Other assisted (current) drug therapy (ICD-10 - Z79.899) Feb, Other 1. Left TKA Home Medications - DVT prophylaxis: Aspirin - NSAID: Celebrex versus prednisone 5 mg x 10-day postop. She tells me she has a history of CKD but we will await her creatinine level from [facility] before making a final decision on NSAID usage perioperatively. - Disposition: Inpatient Joints Meeting Checklist - Pharmacy: [facility] to bed - Approach/Technique: VANESSA - [...] going to proceed with surgery on 03/02. [facility] Other 03-10-2022 Evaluation note* Encounter Date Diagnosis Assessment Notes Treatment Notes Treatment Clinical Notes Nov, Acute pain of left knee (ICD-10 - M25.562) Nov, Other osteoporosis without current pathological fracture (ICD-10 - M81.8) Nov, 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 (ICD-10 - Z79.899) Nov, [...] consider doing that with leflunomide as well. [facility] Other Evaluation noteNo InformationNortHaven [facility] Other evaluation note* Diagnosis Onset Date Resolution Status COPD (chronic obstructive pulmonary disease) acute High cholesterol acute Hypertension acute Sleep apnea with use of cont inuous positive airway pressure (CPAP) acute Status post left knee replacement acute [facility] Work Phone: Evaluation noteNo assessment information available [facility] Work Phone: Evaluation note* Diagnosis Onset Date Resolution Status Dietary surveillance and counseling acute Exercise counseling acute Obesity, Class II, BMI 35-39.9 acute Type 2 diabetes mellitus acu te [facility] Work Phone: Evaluation note* Diagnosis Onset Date Resolution Status Dietary surveillance and counseling acute Exercise counseling acute Chronic bronchitis, mucopurulent acute Lumbar spondylosis acute Mixed hyperlipidemia acute Obesity acute Primary hypertension acute PSVT (paroxysmal supraventricular tachycardia) acute Type 2 diabetes mellitus with hyperglycemia acute Neck muscle spasm acute Neck pain acute [facility] Work Phone: Evaluation note* Diagnosis Onset Date Resolution Status Chronic bronchitis, mucopurulent acute Lumbar spondylosis acute Mixed hyperlipidemia acute Obesity acute Primary hypertension acute PSVT (paroxysmal supraventricular tachycardia) acute Type 2 diabetes mellitus with hyperglycemia acute Neck muscle spasm acute Neck pain acute [facility] Work Phone: Evaluation note* Diagnosis Onset Date Resolution Status Chronic bronchitis, mucopurulent acute Lumbar spondylosis acute Mixed hyperlipidemia acute Obesity acute Primary hypertension acute PSVT (paroxysmal supraventricular tachycardia) acute Type 2 diabetes mellitus with hyperglycemia acute Neck muscle spasm acute Neck pain acute Dietary surveillance and counseling acute Exercise counseling acute [facility] Work Phone: Evaluation note* Diagnosis Onset Date Resolution Status Neck muscle spasm acute Neck pain acute Dietary surveillance and counseling acute Exercise counseling acute Chronic bronchitis, mucopurulent acute Lumbar spondylosis acute Mixed hyperlipidemia acute Obesity acute Primary hypertension acute PSVT (paroxysmal supraventricular tachycardia) acute Type 2 diabetes mellitus with hyperglycemia acute [facility] Work Phone: History general Narrative - Reported* [...] History Bilateral Myringotomy and Tube Placement 2012 [facility] Other History general Narrative - Reported* Type [...] Arthroscopy 202 2 Hospitalization History See Above [facility] Other History general Narrative - Reported* Type [...] Arthroplasty 20 22 Hospitalization History See Above [facility] Other History general Narrative - Reported* Type [...] Bilateral Mastompexy 2006 Surgical History Bilateral Ligation 2006 Surgical History [...] Arthroplasty 20 22 Hospitalization History See Above [facility] Other Hospital Discharge [facility] Work Phone: Reason for referral (narrative)* Reason Referral for fractur e of proximal phalanx of 2nd and 3rd toe of the right foot. Diagnosis 1 Closed nondisplaced fracture of proximal phalanx of lesser toe of right foot, initial encounter (S92.514A) Referral Organization [facility] Referring Provider First Name Jonathan Referring Provider Last Name Earl Referring Provider Specialty Internal Me dicine Referred Organization [facility] Referred Provider Donta Elias Referred Address [address], [place],[address] Referred Provider Specialty Podiatry - S urgical Chiropody Referral Priority Routine General Notes Patient being referr ed for evaluation and treatment of an acute nondisplaced fracture of the proximal phalanx of the 2nd and 3rd toe of the right foot. There is mention of extension into the joint space [facility]dit Other Chief Complaint and Reason for Visit [...] tachycardia) Type 2 diabetes mellitus with hyperglycemia Chief Complaint anti inflammatory ea ting 3 month follow up pt. Reason for Visit Dietary surveillance and counseling Exercise counseling Chronic bronchitis, mucopurulent Chronic kidney disease Lumbar spondylosis Obesity Opiate analgesic use agreement exists Primary hypertension PSVT (paroxysmal supraventricular tachycardia) Type [...] ap ptsH & P LEFT TOTAL KNEE [id number] InformationPOST OP MEDSNo InformationPOST OP LTK FOLLOW UP1 WK WOUND CHECK3 WEEK RECHECK6 WK WX2 WK FOLLOW UP; CTA [facility] 09/08/22, CAROTID DUPLEX 11:30Aopen sore on ring fingerRight Ring Finger IschemiaRefillTo go over Echocardiogrambumps on left armRecheck Right Hand2 WK FOLLOW UP; CT SCAN [facility] 10/05/22[facility] Right Hand3 MONTH FOLLOW UPNo InformationRecnorthridge hospital medical center LTKAWELLNESSLab/Test Results4 WEEK RECHECKInitial WMNRefillAMS Diabetes diagnosis [...] Provide r, Attending Provider Active Start: March 15, 2024 Team Status: Inactive Member Role Status Dates Jonathan Smith DO Primary Care Provider Active Start: April 28, 2024 End: April 28, 2024 Aaron Diana MD Attending Provider Active Start: April 28, 2024 End: April 28, 2024 Team Status: Active Member Role Status [...] End: January 05, 2024 Carolyn Lees APRN ORTHOPEDICS PEDIATRIC PHYSICIAN-C Attending Provider Act toñito Start: January 05, [...] 2024 End: March 09, 2024 Team Status: Inactive Member Role Status [...] Moore RN Other Provider Active Vaishali Howell , MARKUS Other Provider Active Maria E Regalado , RN Other Provider Active Ebony Omalley , RN Other Provider Active Radha Prelsey , RN Other Provider Active Melvi Gonzalez , RN Other Provider Active Susanne Best , RN Other Provider Active Letty Hurtado MD Other Provider Active Javier Nolen MD Other Provider Active Avis Herndon APRN Other Provider Active Nohemy Louis , Other Provider Active Vitaly Siddiqi MD Other Provider Active Nicholas Monet , DO Other Provider Active Robert Hernandez MD Other Provider Active Shirley Arias MD Other Provider Active Shelli Miller , ANP- Other Provider Active Kumar Newman MD Other Provider Active Hesham Martin MD Other Provider Active Christopher Manjarrez MD Other Provider Active Geraldine Arroyo MD Other Provider Active Ti Wood , DO Other Provider Active Jose Maria Del Real MD Other Provider Active Asif Solis MD Other Provider Active Selina Guillen MD Other Provider Active Andrea Pablo MD Other Provider Active Teagan Fay , ORTHOPEDICS PEDIATRIC PHYSICIAN-C Other Provider Active Chung Mary MD Other [...] Status: Inactive Member Role Status Annetta Smith , DO Primary Care Provider Active Nabor Nelson II, MD Attending Provider Active Team Status: Inactive Member Role Status Annetta Smith , DO Primary Care Provider Active George Ryan MD Attending Provider Active Team Status: Inactive Member Role Status Annetta Smith DO Primary Care Provider Active Kiana Munson MD Attending Provider Active Team Status: Inactive Member Role Status Annetta Smith DO Primary Care Provider Active Nabor Wilson MD Attending Provider Active Team Status: Inactive Member Role Status Dates Massiel Correat - Refer , [facility] Attending Provider Active Start: September 14, 2023 End: September 14, 2023 Team Status: Inactive Member Role Status Dates Massiel Correat - Refer , [facility] Attending Provider Active Start: September 21, 2023 End: September 21, 2023 Team Status: Active Member Role Status Annetta Smith DO Primary Care Provider Active Start: September 21, 2023 Olayinka Ramos , DO Attending Provider Active St art: September 21, 2023 Team Status: Active Member Role Status Annetta Smith DO Primary Care Provide r, Attending Provider Active Start: March 15, 2024 Team Status: Inactive Member Role Status Annetta Smith DO Primary Care Provider Active Start: April 28, 2024 End: April 28, 2024 Aaron Diana MD Attending Provider Active Start: April 28, 2024 End: April 28, 2024 Goals (unrecognized section and content) Goals may be documented in a n alternate section INFORMATION SOURCE (unrecogn ized section and content) DATE CREATED AUTHOR 11/14/2022 [facility] DATE CREATED AUTHOR AUTHOR'S ORGANIZ ATION 01/25/2023 [facility] DATE CREATED AUTHOR AUTHOR'S ORGANIZ ATION 01/28/2024 [facility] EPIC DATE CREATED AUTHOR AUTHOR'S ORGANIZ ATION 02/14/2024 [facility] FOR RECORDS PERTAINING TO PATIENTS [...] BE BASED ON THE PRIMARY CLINICAL RECORDS. [facility]. provides no warranty or guarantee of the accuracy or completeness of information in this document.
[2024-05-10 11:09] LABS: Erythrocyte Sedimentation Rate 21 mm/hr (<=30)
[2024-05-10 11:41] LABS: Alanine Aminotransferase 26 U/L (14-59); Albumin Globulin Ratio 1.1; Albumin Level 3.5 g/dL (3.4-5.0); Alkaline Phosphatase 69 U/L (46-116); Aspartate Amino Transferase 18 U/L (15-37); Bilirubin Direct 0.1 mg/dL (0.0-0.2); Bilirubin Total 0.4 mg/dL (0.2-1.0); Estimated GFR (African America >60 (>=60); Estimated GFR (Non-African Ame 51 (>=60); Globulin 3.2 g/dL; Total Protein 6.7 g/dL (6.4-8.2)
== END 2024-05-10 10:36 | disposition home or self-care (01) ==
LOC: LAB 10:37
PROVIDERS: PCP Internal Medicine; Visit Provider Internal Medicine Rheumatology
DX: M05.79 Rheumatoid arthritis with rheumatoid factor of multiple sites without organ or systems involvement (principal); Z79.899 Other long term (current) drug therapy
CPT/HCPCS: 36415; 80076; 82565; 85025; 85652

== ENCOUNTER 2024-06-07 18:27 | Emergency (ER) | payer MEDICARE, OTHER, SELFPAY ==
[2024-06-07] VITALS (8 sets, daily range): BP systolic 128–158; BP diastolic 82–93; PULSE 61–78; TEMP 36.4; O2SAT 93–98
--- NOTE | 2024-06-07 18:38 | ED_ITS ---
HPI HPI - General Adult General Chief complaint: Head Injury Stated complaint: Head, Facial Laceration from fall Time Seen by Provider: 06/07/24 18:29 Source: patient History of Present Illness HPI narrative: Patient is a 68-year-old female who presents to the emergency department after a fall with head injury and large scalp laceration. Patient was at her brother's , family states that she was drinking heavily and is intoxicated. She tripped and fell into a doorway and caught her head on the corner of the open doorway. Unknown loss of consciousness. Patient denies any focal medical complaints at this time. She has no neck pain, back pain or extremity pain. Patient states she does take blood thinners but she does not know which one. Unknown last tetanus. Bleeding is fairly controlled at this time. Related Data Home Medications ?Medication ?Instructions ?Recorded ?Confirmed albuterol sulfate 90 mcg/actuation 2 puff inhalation Q4H PRN 06/07/24 06/07/24 aerosol inhaler shortness of breath or wheezing amlodipine 5 mg tablet 5 mg PO BID 06/07/24 06/07/24 atorvastatin 40 mg tablet 40 mg PO QPM 06/07/24 06/07/24 clopidogrel 75 mg tablet 75 mg PO DAILY 06/07/24 06/07/24 empagliflozin 10 mg tablet 10 mg PO QAM 06/07/24 06/07/24 (Jardiance) fluticasone propionate 50 2 spray intranasal DAILY 06/07/24 06/07/24 mcg/actuation nasal spray,suspension leflunomide 20 mg tablet 20 mg PO .every other day 06/07/24 06/07/24 lisinopril 20 mg tablet 20 mg PO BID 06/07/24 06/07/24 metoprolol succinate 100 mg 100 mg PO DAILY 06/07/24 06/07/24 tablet,extended release 24 hr pantoprazole 40 mg tablet,delayed 40 mg PO DAILY 06/07/24 06/07/24 release semaglutide 2 mg/dose (8 mg/3 mL) 2 mg subcut QWEEK 06/07/24 06/07/24 subcutaneous pen injector (Ozempic) tramadol 50 mg tablet 50 mg PO TID PRN pain 06/07/24 06/07/24 trazodone 50 mg tablet 50 mg PO QPM 06/07/24 06/07/24 umeclidinium 62.5 mcg-vilanterol 1 inh inhalation DAILY 06/07/24 06/07/24 25 mcg/actuation powdr for inhalation (Anoro Ellipta) Allergies Allergy/AdvReac Type Severity Reaction Status Date / Time hydroxychloroquine Allergy Severe Unknown Verified 06/07/24 18:40 [From Plaquenil] Opioid HPI Opioid Management Most Recent Opioid Data: No Data to Display Review of Systems ROS Constitutional Denies: fever or chills Ears, nose, mouth, and throat Denies: throat pain, nasal congestion or nose bleeds Cardiovascular Denies: chest pain Respiratory Denies: shortness of breath Gastrointestinal Denies: nausea or vomiting Musculoskeletal Denies: back pain, neck pain or extremity pain Neurological Denies: headache, numbness in extremities, weakness in extremities, dizziness or vertigo Hematologic/Lymphatic Reports: easy bruising and easy bleeding [facility] Medical History (Updated 06/07/24 @ 20:15 by AKIL Simmons) Head injury ?S09.90XA - Unspecified injury of head, initial encounter (ICD-10) Pain ?R52 - Pain, unspecified (ICD-10) High cholesterol ?E78.00 - Pure hypercholesterolemia, unspecified (ICD-10) HTN (hypertension) ?I10 - Essential (primary) hypertension (ICD-10) Exam Narrative Exam Narrative: Gen.: Awake, alert, in no distress Head: Large 12.7cm laceration of the scalp with surrounding hematoma and venous oozing. Laceration gaps approximately 3 cm with hematoma noted in the center of the laceration. no arterial bleeding noted. No Giron sign or raccoon eyes ENT: Moist mucous membranes, no dental injury noted Respiratory: No respiratory distress, lungs clear bilaterally Cardio: Regular rate and rhythm Gastrointestinal: Abdomen is soft, nondistended and nontender to palpation Extremities: Moves extremities equally, no injuries noted Psych: Normal mood and affect Neuro: No focal neuro deficit Skin: Warm, dry, intact Constitutional Vital Signs, click to edit/add: Last Vital Signs Temp 97.6 F 06/07/24 18:31 Pulse 78 06/07/24 18:31 Resp 18 06/07/24 18:31 BP 158/82 H 06/07/24 18:31 Pulse Ox 95 06/07/24 18:31 O2 Del Method Room Air 06/07/24 18:31 Course Vital Signs Vital signs: Vital Signs Temperature 97.6 F 06/07/24 18:31 Pulse Rate 78 06/07/24 18:31 Respiratory Rate 18 06/07/24 18:31 Blood Pressure 158/82 H 06/07/24 18:31 Pulse Oximetry 95 06/07/24 18:31 Oxygen Delivery Method Room Air 06/07/24 18:31 Temperature 97.6 F 06/07/24 18:31 Pulse Rate 78 06/07/24 18:31 Respiratory Rate 18 06/07/24 18:31 Blood Pressure 158/82 H 06/07/24 18:31 Pulse Oximetry 95 06/07/24 18:31 Oxygen Delivery Method Room Air 06/07/24 18:31 Medical Decision Making MDM Narrative Medical decision making narrative: On arrival to the emergency department, patient was immediately sent for CTs of the head, facial bones and cervical spine. Pressure was applied to the large laceration on her scalp. She is anticoagulated with Plavix although she is hemodynamically stable at this time. She was given IV fluids and labs were drawn showing a stable hemoglobin at this time of 13.7 with ethanol 263. Patient was evaluated by myself and Dr. Hess, patient's and daughter at bedside. It was explained to them that as the patient is on Plavix and she has a very large scalp laceration that is continuing to bleed in addition to her alcohol intoxication, she should be transferred to a trauma center and observed for her head injury and for bleeding. They are in agreement with this. They prefer that the patient go to [place] and request trauma transfer to [facility]. Patient was accepted by Dr. Contreras. I did attempt to bring the wound together for hemostasis in the wound, 3-0 ethilon- 2 [id number] sutures were placed with 4 single interrupted sutures with some cessation of bleeding, the area is continuing to ooze and a large dressing was applied. Only 4 cc of lidocaine with epinephrine 1% were applied in the wound, patient had no discomfort with suture approximation. There is a large scalp hematoma that is continuing to bleed and the skin is not able to be fully brought together. Patient was treated with Ancef in the ER, IV fluids and a tetanus update. She is placed in a c-collar for transport with cardiac monitoring. CTs of the head, facial bones and cervical spine are unremarkable at this time. Critical care time 35 minutes. Medical Records Medical records reviewed: Yes I reviewed the patient's medical records Lab Data Lab results reviewed: Yes I reviewed the patient's lab results Labs: Lab Results 06/07/24 Range/Units 18:39 WBC 9.8 (4.0-11.0) 10^3/uL RBC 4.56 (4.20-5.40) 10^6/uL Hgb 13.7 (12.0-16.0) g/dL Hct 41.3 (36.0-48.0) % MCV 90.6 (81.0-99.0) fL MCH 30.0 (26.7-34.0) pg MCHC 33.2 (29.9-35.2) g/dL RDW 12.7 (11.0-15.0) % Plt Count 227 (150-450) 10^3/uL MPV 12.0 (9.5-13.5) fL Neut % (Auto) 50.5 (43.0-75.0) % Lymph % (Auto) 34.6 (20.5-60.0) % [place] % (Auto) 11.4 (1.7-12.0) % Eos % (Auto) 2.7 (0.9-7.0) % Baso % (Auto) 0.6 (0.2-2.0) % Neut # (Auto) 5.0 (1.4-6.5) 10^3/uL Lymph # (Auto) 3.4 (1.2-3.8) 10^3/uL [place] # (Auto) 1.1 H (0.3-0.8) 10^3/uL Eos # (Auto) 0.3 (0.0-0.7) 10^3/uL Baso # (Auto) 0.1 (0.0-0.1) 10^3/uL Abs Immat Gran (auto) 0.02 (0.00-0.03) 10^3/uL Imm/Tot Granulo (auto) 0.2 (0.0-0.5) % PT 10.7 (9.0-11.6) sec INR 1.01 Sodium 136 (136-145) mmol/L Potassium 4.0 (3.5-5.1) mmol/L Chloride 101 (98-107) mmol/L Carbon Dioxide 23.3 (21.0-32.0) mmol/L Anion Gap 15.7 BUN 33.0 H (7.0-18.0) mg/dL Creatinine 1.44 H (0.55-1.02) mg/dL Est GFR ( Amer) 44 L (>=60) Est GFR (Non-Af Amer) 36 L (>=60) BUN/Creatinine Ratio 22.9 Glucose 95 (74-106) mg/dL Calcium 10.7 H (8.5-10.1) mg/dL Total Bilirubin 0.2 (0.2-1.0) mg/dL AST 23 (15-37) U/L ALT 24 (14-59) U/L Alkaline Phosphatase 73 (46-116) U/L Total Protein 7.4 (6.4-8.2) g/dL Albumin 3.9 (3.4-5.0) g/dL Globulin 3.5 g/dL Albumin/Globulin Ratio 1.1 Ethanol Quant 263 mg/dL Imaging Data CT scan - head: Attestation: I have reviewed the pertinent imaging results. Radiologist's impression: ITS Impressions Cervical Spine CT 06/07/24 18:53 IMPRESSION: No acute fracture or posttraumatic malalignment. Reversal of cervical lordosis, likely due to positioning or muscle spasm. Discovertebral degenerative changes in from C4 C7 without central spinal stenosis. Moderate to severe stenosis of the right C4-C5 and C5-C6 neural foramina and moderate stenosis of the left C5-C6 and right C6-C7 neural foramina. 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 Electronically authenticated by: MARTÍNEZ PACHECO Date: 06/07/2024 20:[address] 06/07/24 18:53 IMPRESSION: No acute intracranial process. A very large left frontal scalp hematoma. -- MAXILLOFACIAL CT FINDINGS: No acute maxillofacial fracture is present. Paranasal sinuses are clear. The intraorbital contents appear normal. Visualized subassembly supervisor spaces appear normal. Parapharyngeal spaces appear clear. The visualized neck shows no adenopathy. The craniovertebral junction appears normal. Middle ear cavities are clear. Poor pneumatization of the right mastoid. The left mastoid is clear. IMPRESSION: No acute maxillofacial fracture. Electronically authenticated by: MARTÍNEZ PACHECO Date: 06/07/2024 19:58 ADDENDUM: 06/07/242008 IMPRESSION: No acute intracranial process. A very large left frontal scalp hematoma. -- MAXILLOFACIAL CT FINDINGS: No acute maxillofacial fracture is present. Paranasal sinuses are clear. The intraorbital contents appear normal. Visualized subassembly supervisor spaces appear normal. Parapharyngeal spaces appear clear. The visualized neck shows no adenopathy. The craniovertebral junction appears normal. Middle ear cavities are clear. Poor pneumatization of the right mastoid. The left mastoid is clear. IMPRESSION: No acute maxillofacial fracture. Electronically authenticated by: [employer] PACHECO Date: 06/07/2024 20:[address] 06/07/24 18:53 IMPRESSION: No acute intracranial process. A very large left frontal scalp hematoma. -- MAXILLOFACIAL CT FINDINGS: No acute maxillofacial fracture is present. Paranasal sinuses are clear. The intraorbital contents appear normal. Visualized subassembly supervisor spaces appear normal. Parapharyngeal spaces appear clear. The visualized neck shows no adenopathy. The craniovertebral junction appears normal. Middle ear cavities are clear. Poor pneumatization of the right mastoid. The left mastoid is clear. IMPRESSION: No acute maxillofacial fracture. Electronically authenticated by: [employer] PACHECO Date: 06/07/2024 19:58 ADDENDUM: 06/07/242008 IMPRESSION: No acute intracranial process. A very large left frontal scalp hematoma. -- MAXILLOFACIAL CT FINDINGS: No acute maxillofacial fracture is present. Paranasal sinuses are clear. The intraorbital contents appear normal. Visualized subassembly supervisor spaces appear normal. Parapharyngeal spaces appear clear. The visualized neck shows no adenopathy. The craniovertebral junction appears normal. Middle ear cavities are clear. Poor pneumatization of the right mastoid. The left mastoid is clear. IMPRESSION: No acute maxillofacial fracture. Electronically authenticated by: [email or web address] Date: 06/07/2024 20:07 Critical Care Time Critical Care Time Critical Care Time: Yes Total Critical Care Time: 35 Attestation: 35 minutes of critical care time for limited trauma assessment, transfer to tertiary care facility and closure of a large wound Discharge Plan Discharge Chief Complaint: Head Injury Clinical Impression: Closed head injury, Scalp hematoma, Laceration of scalp, Alcohol intoxication Patient Disposition: Xfer Acute Care Hospital Time of Disposition Decision: 20:13 Discharge Location: [facility] Mode of Transportation: EMS Prescriptions / Home Meds: No Action albuterol sulfate 90 mcg/actuation HFA aerosol inhaler 2 puff INHALATION Q4H PRN (Reason: shortness of breath or wheezing) amlodipine 5 mg tablet 5 mg PO BID atorvastatin 40 mg tablet 40 mg PO QPM clopidogrel 75 mg tablet 75 mg PO DAILY Jardiance 10 mg tablet 10 mg PO QAM fluticasone propionate 50 mcg/actuation spray,suspension 2 spray INTRANASAL DAILY leflunomide 20 mg tablet 20 mg PO .every other day Patient Comments: Must get standing labs!!! lisinopril 20 mg tablet 20 mg PO BID metoprolol succinate 100 mg tablet extended release 24 hr 100 mg PO DAILY pantoprazole 40 mg tablet,delayed release (DR/EC) 40 mg PO DAILY Ozempic 2 mg/dose (8 mg/3 mL) pen injector 2 mg SUBCUT QWEEK tramadol 50 mg tablet 50 mg PO TID PRN (Reason: pain) trazodone 50 mg tablet 50 mg PO QPM Anoro Ellipta 62.5-25 mcg/actuation blister with device 1 inh INHALATION DAILY Print Language: Italian Referrals: Jonathan Elliott DO [Primary Care Provider] - 1 week
--- OUTSIDE RECORDS SUMMARY | 2024-06-07 18:39 | XMS_ITS | CCD ---
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 Name Role Phone Nabor Nelson II Unavailable DO Jonathan Smith Primary Care Provider [phone] MD Nabor Nelson II Attending Provider MARKUS [...] Other Provider DO Nicholas Monet Other Provider [phone] MD Robert Hernandez Other Provider MD Shirley [...] MD Nabor Nelson II Attending Provider [phone] DO Jonathan Smith Primary Care Provider MD [...] Care Provider MD Nabor Wilson Attending Provider MD Nabor Nelson II Attending Provider [phone] MD Kiana Munson Attending Provider Olayinka Ramos Unavailable Massiel Pereira Unavailable DO Jonathan Smith Primary Care Provider DO Olayinka Ramos Attending Provider RAYMOND SAUCEDA [...] Tape (1 source) Adhesive Tape Substance Allergy [facility] Repository Hydroxychloroquine (1 source) Hydroxychloroquine Drug Allergy [facility] Repository Opioid Agonists (1 source) Morphine Drug Allergy [facility] Repository (20 sources) Adhesive Tape Drug allergy Unknown [facility] [employer] Other (20 sources) Hydroxychloroquine Drug Allergy rash [facility] (20 sources) Morphine Drug Allergy Unknown, Unresponsive [facility] (19 sources) Adhesive Tape Allergy to substance Redness of Skin, skin tears [facility] (1 source) Adhesive agent Drug allergy (disorder) [facility] Repository (1 source) Hydroxychloroquine Drug Allergy [facility] Repository (1 source) Morphine Drug Allergy [facility] Repository (20 sources) Morphine Sulfate (Concentrate) *ANALGESICS - OPIOI Propensity to adverse reactions Unknown [employer] Other (3 sources) Allergies Reconciled Propensity to adverse reactions Unknown [facility] [employer] Other (3 sources) patient allergy list reviewed by nurse or physicia Propensity to adverse reactions Comment:Done [employer] Other Medications Current Medications Medication Drug Class(es) [...] Subcutaneous Once weekly for 28 days Active [id number] 200 actuat albuterol 0.09 mg/actuat metered dose [...] 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 take 0.5 tablet by m outh every [...] Start: 04-02-2023 take 1 capsule by mo [facility] once daily Metoprolol Succinate 50 MG 1 [...] a day for 14 days Sep, Active Mancos 8-Ych-Iiq-Fish Oil (Fish Oil) 1,200 (144-216) mg Capsule (19 sources) Start: 02-12-2022 take 1 capsule by mouth once daily Mancos 8-Tyg-Eei-Fish Oil (Fish Oil) 1,200 (144-216) mg Capsule Active 1200 CAP PO Daily February 11, 2022 11:00pm Start: 02-12-2022 take 1 capsule by mo [facility] once daily Mancos 4-Rjy-Tbo-Fish Oil (Fish Oil) 1,200 (144-216) mg Capsule [...] Start: 02-11-2022 take 1 capsule by [facility] every twelve hours Cefadroxil 500 MG [...] 9:36am docusate sodium 50 mg / sennosides, snf 8.6 mg oral tablet (20 sources) Start: [...] release oral tablet (15 sources) 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 1 tablet by mouth twice daily at mealtime Pentoxifylline 400 MG 1 tablet with meals Orally Twice a day Not-Taking polyethylene glycol 3350 54915 mg powder for oral solution (20 sources) [...] current use of drug therapy; Translations: [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] 12-08-2023 Episodic Other aftercare (3 sources) 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; Translations: [OTH [facility] CURRENT DRUG THERAPY] Onset: 2 Resolved: 2 Episodic Other aftercare (3 sources) High risk drug monitoring status; Translations: [[facility] (current) use of opiate analgesic] Episodic Other aftercare (1 source) Drug therapy finding; Translations: [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] 03-09-2024 Episodic Other aftercare (1 source) FPC (current) use of opiate analgesic; Translations: [Long-term [...] from glycated hemoglobin (Bld) [Mass/Vol] 103 mg/dL [facility] Laboratory - Hematology and Cell countson 03-15-2024 HbA1c (Bld) [Mass fraction] 5.2 % 4.5-6.2 [facility] Comment on above: ADA RECOMMENDED LIMI T 4.0 - 6.0ADA THERAPEUTIC TARGET < 7.0ACTION SUGGESTED> 7.0 Basophils Auto (Bld) [#/Vol] on 03-09-2024 Basophils (Bld) [#/Vol] 0.1 10 3/uL 0.0-0.1 [facility] Basophils/100 WBC Auto (Bld) on 03-09-2024 Basophils/100 WBC (Bld) 0.7 % 0.2-2.0 [facility] Eosinophils/100 WBC Auto (Bl d)on 03-09-2024 Eosinophils/100 WBC (Bld) 3.6 % 0.9-7.0 [facility] Erythrocyte distribution wid th Auto (RBC) [Ratio]on 03-09-2024 Erythrocyte distribution width (RBC) [Ratio] 12.7 % 11.0-15.0 [facility] Estimated glomerular filtrat ion rate (GFR) non- Americanon 03-09-2024 GFR/1.73 sq M.predicted among non-blacks MDRD (S/P/Bld) [Vol rate/Area] 49 mL/min/{1.73_m2} Low >=60 [facility] Globulin Calc (S) [Mass/Vol] on 03-09-2024 Globulin (S) [Mass/Vol] 3.3 g/dL [facility] Hematocrit Auto (Bld) [Volum e fraction]on 03-09-2024 Hematocrit (Bld) [Volume fraction] 38.6 % 36.0-48.0 [facility] Hemoglobin [Mass/volume] in Bloodon 03-09-2024 Hemoglobin (Bld) [Mass/Vol] 12.8 g/dL 12.0-16.0 [facility] Laboratory - Chemistry and C hemistry - challengeon 03-09-2024 Albumin [Mass/Vol] 3.7 g/dL 3.4-5.0 [facility] ALP [Catalytic activity/Vol] 63 U/L 46-116 [facility] ALT [Catalytic activity/Vol] 27 U/L 14-59 [facility] AST [Catalytic activity/Vol] 22 U/L 15-37 [facility] Bilirubin [Mass/Vol] 0.6 mg/dL 0.2-1.0 [facility] Bilirubin.direct [Mass/Vol] 0.2 mg/dL 0.0-0.2 [facility] Creatinine [Mass/Vol] 1.11 mg/dL High 0.55-1.02 [facility] GFR/1.73 sq M.predicted MDRD (S/P/Bld) [Vol rate/Area] 59 mL/min/{1.73_m2} Low >=60 [facility] Protein [Mass/Vol] 7.0 g/dL 6.4-8.2 [facility] Laboratory - Hematology and Cell countson 03-09-2024 ESR (Bld) [Velocity] 48 mm/h High <=30 [facility] Immature granulocytes/100 WBC (Bld) 0.3 % 0.0-0.5 [facility] Leukocytes [#/volume] correc manju for nucleated erythrocytes in Blood by Automated counon 03-09-2024 WBC corrected for nucl RBC Auto (Bld) [#/Vol] 6.7 10 3/uL 4.0-11.0 [facility] Lymphocytes Auto (Bld) [#/Vo l]on 03-09-2024 Lymphocytes (Bld) [#/Vol] 1.7 10 3/uL 1.2-3.8 [facility] Lymphocytes/100 WBC Auto (Bl d)on 03-09-2024 Lymphocytes/100 WBC (Bld) 24.9 % 20.5-60.0 [facility] MCH Auto (RBC) [Entitic mass ]on 03-09-2024 MCH (RBC) [Entitic mass] 30.4 pg 26.7-34.0 [facility] MCHC Auto (RBC) [Mass/Vol]on 03-09-2024 MCHC (RBC) [Mass/Vol] 33.2 g/dL 29.9-35.2 [facility] MCV Auto (RBC) [Entitic vol] on 03-09-2024 MCV (RBC) [Entitic vol] 91.7 fL 81.0-99.0 [facility] Monocytes Auto (Bld) [#/Vol] on 03-09-2024 Monocytes (Bld) [#/Vol] 0.8 10 3/uL 0.3-0.8 [facility] Monocytes/100 WBC Auto (Bld) on 03-09-2024 Monocytes/100 WBC (Bld) 11.5 % 1.7-12.0 [facility] Neutrophils Auto (Bld) [#/Vo l]on 03-09-2024 Neutrophils (Bld) [#/Vol] 3.9 10 3/uL 1.4-6.5 [facility] Neutrophils/100 WBC Auto (Bl d)on 03-09-2024 Neutrophils/100 WBC (Bld) 59.0 % 43.0-75.0 [facility] No Panel Informationon 03-09 Eosinophils # (Auto) 0.2 10 3/uL 0.0-0.7 [facility] Immature Granulocyte # (Auto) 0.02 10 3/uL 0.00-0.03 [facility] Platelet mean volume Auto (B ld) [Entitic vol]on 03-09-2024 Platelet mean volume (Bld) [Entitic vol] 11.8 fL 9.5-13.5 [facility] Platelets Auto (Bld) [#/Vol] on 03-09-2024 Platelets (Bld) [#/Vol] 241 10 3/uL 150-450 [facility] RBC Auto (Bld) [#/Vol]on RBC (Bld) [#/Vol] 4.21 10 6/uL 4.20-5.40 [facility] Serum or plasma albumin/glob ulin mass ratioon 03-09-2024 Albumin/Globulin [Mass ratio] 1.1 {ratio} [facility] Activated partial thrombopla stin time (APTT).factor substitution in platelet poor plaon 01-11-2024 aPTT.factor substitution immediately after 1:4 addition of normal plasma Coag (PPP) [Time] TNP sec . [facility] Comment on above: Testing Not Indicate dThis test was developed and its performance characteristicsdetermined by [facility]. It has not been cleared or approvedby the US Food and Drug Administration. Activated partial thrombopla stin time (aPTT) in platelet poor plasma by coagulation aon 01-11-2024 aPTT Coag (PPP) [Time] 22.4 s Abnormal . [facility] Comment on above: This test has not be en validated for monitoringunfractionated heparin therapy. aPTT-based therapeuticranges for unfractionated heparin therapy have not beenestablished. Consider ordering Heparin anti-Xa(unfractionated).Reference Range:18 years and older: 22.9 - 30.2 Activated partial thrombopla stin time (aPTT) using hexagonal phase phospholipid in plon 01-11-2024 aPTT W excess hexagonal phase phospholipid Coag (PPP) [Time] 2 sec . [facility] Comment on above: This value is NEGATI VE.This is a qualitative assay and is therefore reported aspositive for lupus anticoagulant or negative. Thequantitative value is provided as an aid in diagnosis.Reference Range:0 - 11 Automated epithelial cells c ount in urine sediment (number/area)on 01-11-2024 Epithelial cells Auto (Urine sed) [#/Area] FEW #/LPF Abnormal NONE/RARE [facility] Automated urine sediment micki cium oxalate crystal count by microscopy (number/high powon 01-11-2024 Calcium oxalate crystals LM.HPF (Urine sed) [#/Area] FEW [facility] Automated urine specific gra vity by refractometryon 01-11-2024 Specific gravity Refractometry automated (U) [Rel density] >=1.030 Abnormal 1.005-1.025 [facility] Bacteria [Presence] in Urine by Automatedon 01-11-2024 Bacteria Auto Ql (U) NONE SEEN #/HPF NONE SEEN [facility] Basophils Auto (Bld) [#/Vol] on 01-11-2024 Basophils (Bld) [#/Vol] 0.0 10 3/uL 0.0-0.1 [facility] Basophils/100 WBC Auto (Bld) on 01-11-2024 Basophils/100 WBC (Bld) 0.5 % 0.2-2.0 [facility] Beta 2 glycoprotein 1 IgA Ab [Units/volume] in Serumon 01-11-2024 Beta 2 glycoprotein 1 IgA Qn (S) <10 MICHELA . [facility] Comment on above: The reference interv al reflects a 3SD or 99th percentileinterval.Reference Range:Negative: <26 Beta 2 glycoprotein 1 IgG Ab [Units/volume] in Serumon 01-11-2024 Beta 2 glycoprotein 1 IgG Qn (S) <10 SGU . [facility] Comment on above: The reference interv al reflects a 3SD or 99th percentileinterval.Reference Range:Negative: <21 Beta 2 glycoprotein 1 IgM Ab [Units/volume] in Serumon 01-11-2024 Beta 2 glycoprotein 1 IgM Qn (S) <10 SMU . [facility] Comment on above: The reference interv al reflects a 3SD or 99th percentileinterval.Reference Range:Negative: <33 Bilirubin Auto test strip (U ) [Mass/Vol]on 01-11-2024 Bilirubin (U) [Mass/Vol] SMALL Abnormal NEGATIVE [facility] Cardiolipin IgG Ab [Units/vo lume] in Serum by Immunoassayon 01-11-2024 Cardiolipin IgG IA Qn (S) <10 GPL . [facility] Comment on above: Reference Range:Nega tive: <15Indeterminate: 15 - 20Low to medium positive: >20 - 80High positive: >80 Cardiolipin IgM Ab [Units/vo lume] in Serum by Immunoassayon 01-11-2024 Cardiolipin IgM IA Qn (S) <10 MPL . [facility] Comment on above: Reference Range:Nega tive: <13Indeterminate: 13 - 20Low to medium positive: >20 - 80High positive: >80 Casts typing in urine sedime nt by light microscopyon 01-11-2024 Casts LM Nom (Urine sed) NONE SEEN #/LPF NONE SEEN [facility] Centriole Ab [Titer] in Seru m by Immunofluorescenceon 01-11-2024 Centriole Ab IF (S) [Titer] TNP . [facility] Centromere Ab [Titer] in Ser um by Immunofluorescenceon 01-11-2024 Centromere Ab IF (S) [Titer] TNP . [facility] Color Auto (U)on 01-11-2024 Color (U) DK. YELLOW YELLOW [facility] Dilute Naveen's viper venom time (DRVVT) confirmatory teston 01-11-2024 dRVVT actual/normal Coag (PPP) [Relative time] TNP sec . [facility] Comment on above: Testing Not Indicate d Eosinophils/100 WBC Auto (Bl d)on 01-11-2024 Eosinophils/100 WBC (Bld) 4.6 % 0.9-7.0 [facility] Erythrocyte distribution wid th Auto (RBC) [Ratio]on 01-11-2024 Erythrocyte distribution width (RBC) [Ratio] 13.2 % 11.0-15.0 [facility] Estimated glomerular filtrat ion rate (GFR) non- Americanon 01-11-2024 GFR/1.73 sq M.predicted among non-blacks MDRD (S/P/Bld) [Vol rate/Area] 52 mL/min/{1.73_m2} Low >=60 [facility] Globulin Calc (S) [Mass/Vol] on 01-11-2024 Globulin (S) [Mass/Vol] 3.2 g/dL [facility] Glucose [Mass/volume] in Uri ne by Test stripon 01-11-2024 Glucose Test strip (U) [Mass/Vol] Negative NEGATIVE [facility] Glucose mean value [Mass/vol ume] in Blood Estimated from glycated hemoglobinon 01-11-2024 Average glucose Estimated from glycated hemoglobin (Bld) [Mass/Vol] 117 mg/dL [facility] Hematocrit Auto (Bld) [Volum e fraction]on 01-11-2024 Hematocrit (Bld) [Volume fraction] 39.2 % 36.0-48.0 [facility] Hemoglobin [Mass/volume] in Bloodon 01-11-2024 Hemoglobin (Bld) [Mass/Vol] 12.8 g/dL 12.0-16.0 [facility] INR in Platelet poor plasma by Coagulation assayon 01-11-2024 INR Coag (PPP) [Relative time] 1.0 {INR} . [facility] Comment on above: Reference Range:>1 m onth: 0.9 - 1.2 Interpretation of screening lupus anticoagulant assayon 01-11-2024 Lupus anticoagulant three screening tests W Reflex Coag (PPP) [Interp] Comment . [facility] Comment on above: A lupus anticoagulan t is not detected. All antiphospholipidantibodies evaluated are normal. As antibody titers mayfluctuate with time, repeat testing may be indicated.Please contact Magnetic if furtherclarification is needed.Performed at: [facility] [place] [address] [id number] Director: Simon Izquierdo MD, Phone: [phone] Ketones Auto test strip (U) [Mass/Vol]on 01-11-2024 Ketones (U) [Mass/Vol] TRACE mg/dL Abnormal NEGATIVE [facility] Laboratory - Chemistry and C hemistry - challengeon 01-11-2024 Albumin [Mass/Vol] 3.0 g/dL Low 3.4-5.0 [facility] ALP [Catalytic activity/Vol] 67 U/L 46-116 [facility] ALT [Catalytic activity/Vol] 26 U/L 14-59 [facility] AST [Catalytic activity/Vol] 18 U/L 15-37 [facility] Bilirubin [Mass/Vol] 0.4 mg/dL 0.2-1.0 [facility] Bilirubin.direct [Mass/Vol] 0.1 mg/dL 0.0-0.2 [facility] Creatinine [Mass/Vol] 1.05 mg/dL High 0.55-1.02 [facility] GFR/1.73 sq M.predicted MDRD (S/P/Bld) [Vol rate/Area] mL/min/{1.73_m2} >=60 [facility] Protein [Mass/Vol] 6.2 g/dL Low 6.4-8.2 [facility] - Hematology and Cell countson 01-11-2024 ESR (Bld) [Velocity] 6 mm/h <=30 [facility] HbA1c (Bld) [Mass fraction] 5.7 % 4.5-6.2 [facility] Comment on above: ADA RECOMMENDED LIMI T 4.0 - 6.0ADA THERAPEUTIC TARGET < 7.0ACTION SUGGESTED> 7.0 Immature granulocytes/100 WBC (Bld) 0.5 % 0.0-0.5 [facility] Leukocytes [#/area] in Urine sediment by Automated counton 01-11-2024 WBC Auto (Urine sed) [#/Area] NONE SEEN #/HPF 0-2 [facility] Leukocytes [#/area] in Urine sediment by Microscopy high power fieldon 01-11-2024 WBC LM.HPF (Urine sed) [#/Area] 0-2 #/HPF Abnormal NONE SEEN [facility] Leukocytes [#/volume] correc manju for nucleated erythrocytes in Blood by Automated counon 01-11-2024 WBC corrected for nucl RBC Auto (Bld) [#/Vol] 8.3 10 3/uL 4.0-11.0 [facility] Lymphocytes Auto (Bld) [#/Vo l]on 01-11-2024 Lymphocytes (Bld) [#/Vol] 3.2 10 3/uL 1.2-3.8 [facility] Lymphocytes/100 WBC Auto (Bl d)on 01-11-2024 Lymphocytes/100 WBC (Bld) 38.0 % 20.5-60.0 [facility] MCH Auto (RBC) [Entitic mass ]on 01-11-2024 MCH (RBC) [Entitic mass] 30.3 pg 26.7-34.0 [facility] MCHC Auto (RBC) [Mass/Vol]on 01-11-2024 MCHC (RBC) [Mass/Vol] 32.7 g/dL 29.9-35.2 [facility] MCV Auto (RBC) [Entitic vol] on 01-11-2024 MCV (RBC) [Entitic vol] 92.7 fL 81.0-99.0 [facility] Midbody Ab [Titer] in Serum by Immunofluorescenceon 01-11-2024 Midbody Ab IF (S) [Titer] TNP . [facility] Mitotic spindle apparatus Ab [Titer] in Serum or Plasma by Immunofluorescenceon 01-11-2024 Mitotic spindle apparatus Ab IF [Titer] TNP . [facility] Monocytes Auto (Bld) [#/Vol] on 01-11-2024 Monocytes (Bld) [#/Vol] 1.0 10 3/uL High 0.3-0.8 [facility] Monocytes/100 WBC Auto (Bld) on 01-11-2024 Monocytes/100 WBC (Bld) 12.3 % High 1.7-12.0 [facility] Mucus LM Ql (Urine sed)on Mucus Ql (Urine sed) NONE SEEN NONE SEEN [facility] Neutrophils Auto (Bld) [#/Vo l]on 01-11-2024 Neutrophils (Bld) [#/Vol] 3.7 10 3/uL 1.4-6.5 [facility] Neutrophils/100 WBC Auto (Bl d)on 01-11-2024 Neutrophils/100 WBC (Bld) 44.1 % 43.0-75.0 [facility] No Panel Informationon 01-10 Anti-Double Strand DNA Antibody 1 [IU]/mL 0-9 [facility] Comment on above: Negative <5 Equivoca l 5 - 9 Positive >9Performed at: - [facility] [id number] Director: Matty Diaz PhD, Phone: [phone] Anti-Nuclear Antibody Comment 2 Comment . [facility] Comment on above: Pattern Potential Di sease Association Homogeneous Systemic Lupus Erythematosus, Drug Induced Systemic Lupus Erythematosus, Chronic Autoimmune hepatitis, Juvenile Idiopathic Arthritis Speckled Sjogren Syndrome, Systemic Lupus Erythematosus, Subacute Cutaneous Lupus, Lupus, Congenital Heart Block, Mixed Connective Tissue Disease, Scleroderma-diffuse, Scleroderma-Autoimmune Myositis Overlap Syndrome, Systemic Lupus Gvsmabvpyuply-Hqeazlvkyib-Qyxoyjawll Myositis Overlap Syndrome, Systemic Autoimmune Rheumatic Disease, [...] Cytopenias, Linear Scleroderma, Antiphospholipid Syndrome Performed at: [facility] [place], [place] [id number] Director: Matty Diaz PhD, Phone: [phone] C-Reactive Protein, Quantitative <0.50 mg/dL <=0.50 [facility] Dilute Naveen Viper Venom Screen 32.2 sec . [facility] Comment on above: Reference Range:<= 4 7.0 Eosinophils # (Auto) 0.4 10 3/uL 0.0-0.7 [facility] Immature Granulocyte # (Auto) 0.04 10 3/uL High 0.00-0.03 [facility] Lupus Anticoag DRVVT Screen Ratio TNP ratio . [facility] Comment on above: Testing Not Indicate d Miscellaneous Test COMMENT . [facility] Comment on above: Test Ordered: [id number] Ramos AntibodiesSmith Antibodies 1.5 [H ] AI CB Reference Range: 0.0-0.9Performed at: [facility] [id number] Director: Matty Diaz PhD, Phone: [phone] Platelet Neutralization 0.5 sec . [facility] Comment on above: Reference Range:0.0 - 3.0This test was developed and its performance characteristicsdetermined by [employer]. It has not been cleared or approvedby the Food and Drug Administration. Total Complement (CH50) >60 U/mL >41 [facility] Comment on above: Age Male Female 1 [...] to determine out of range values.Performed at: [facility] [address] [id number] Director: Matty Diaz PhD, Phone: [phone] Nuclear dots nuclear Ab farzad maurice [Titer] in Serum by Immunofluorescenceon 01-11-2024 Nuclear dots nuclear Ab pattern IF (S) [Titer] TN . [facility] Nuclear membrane pores nucle ar Ab pattern [Titer] in Serum by Immunofluorescenceon 01-11-2024 Nuclear membrane pores nuclear Ab pattern IF (S) [Titer] TN . [facility] PCNA extractable nuclear Ab [Titer] in Serum by Immunofluorescenceon 01-11-2024 PCNA extractable nuclear Ab IF (S) [Titer] TNP . [facility] Platelet mean volume Auto (B ld) [Entitic vol]on 01-11-2024 Platelet mean volume (Bld) [Entitic vol] 11.7 fL 9.5-13.5 [facility] Platelet poor plasma factor substitution activated partial thromboplastin time (aPTT)on 01-11-2024 aPTT.factor substitution 1 Hr post incubation with normal plasma Coag (PPP) [Time] TNP sec . [facility] Comment on above: Testing Not Indicate dThis test was developed and its performance characteristicsdetermined by [employer]. It has not been cleared or approvedby the [place] Food and Drug Administration. Platelets Auto (Bld) [#/Vol] on 01-11-2024 Platelets (Bld) [#/Vol] 269 10 3/uL 150-450 [facility] Protein Auto test strip (U) [Mass/Vol]on 01-11-2024 Protein (U) [Mass/Vol] TRACE mg/dL NEG/TRACE [facility] Prothrombin time (PT)on 12-14 PT Coag (PPP) [Time] 10.9 s . [facility] Comment on above: Reference Range:18 y ears and older: 9.1 - 12.0 RBC Auto (Bld) [#/Vol]on RBC (Bld) [#/Vol] 4.23 10 6/uL 4.20-5.40 [facility] Serum homogeneous pattern an tinuclear antibody (VAL) titeron 01-11-2024 Homogenous nuclear Ab pattern (S) [Titer] 1:160 Abnormal . [facility] Comment on above: ICAP nomenclature: A C-1 Serum nuclear antibody titer on 01-11-2024 Nuclear Ab (S) [Titer] Positive Abnormal . [facility] Comment on above: Negative <1:80 Borde rline 1:80 Positive >1:80 Serum nucleolar pattern anti nuclear antibody (VAL) titeron 01-11-2024 Nucleolar nuclear Ab pattern (S) [Titer] TNP . [facility] Serum or plasma albumin/glob ulin mass ratioon 01-11-2024 Albumin/Globulin [Mass ratio] 0.9 {ratio} [facility] Serum or plasma complement C 3 measurement (mass/volume)on 01-11-2024 Complement C3 [Mass/Vol] 99 mg/dL 82-167 [facility] Serum or plasma complement C 4 measurement (mass/volume)on 01-11-2024 Complement C4 [Mass/Vol] 19 mg/dL 12-38 [facility] Comment on above: Performed at: [facility] [place], [place] [id number] Director: Matty Diaz PhD, Phone: [phone] Serum or plasma cyclic adeno sine monophosphate measurement (moles/volume)on 01-11-2024 Adenosine monophosphate.cyclic [Moles/Vol] >250 units Abnormal 0-19 [facility] Comment on above: Negative <20 Weak po sitive 20 - 39 Moderate positive 40 - 59 Strong positive >59Performed at: [facility] [place] [id number] Director: Matty Diaz PhD, Phone: [phone] Serum or plasma rheumatoid f actor measurement (units/volume)on 01-11-2024 Rheumatoid factor Qn 31.0 [IU]/mL Abnormal <14.0 [facility] Comment on above: Performed at: [facility] [place], [place] [id number] Director: Matty Diaz PhD, Phone: [phone] Serum speckled pattern antin uclear antibody (VAL) titeron 01-11-2024 Speckled nuclear Ab pattern (S) [Titer] TNP . [facility] Specific gravity Auto test s trip (U) [Rel density]on 01-11-2024 Specific gravity (U) [Rel density] CLEAR CLEAR [facility] TT plason 01-11-2024 Thrombin time Coag (PPP) [Time] 21.2 sec . [facility] Comment on above: Reference Range:0.0 - 23.0 Urine hemoglobin detection b y automated test stripon 01-11-2024 Hemoglobin Auto test strip Ql (U) Negative NEGATIVE [facility] Urine nitrite detection by a utomated test stripon 01-11-2024 Nitrite Auto test strip Ql (U) Negative NEGATIVE [facility] Urine sediment crystal ident ification by light microscopyon 01-11-2024 Crystals LM Nom (Urine sed) Seen #/HPF Abnormal None Seen [facility] Urobilinogen Auto test strip (U) [Mass/Vol]on 01-11-2024 Urobilinogen Qn (U) 1.0 {Charlotte'U}/dL 0.2-1.0 [facility] pH Auto test strip (U)on pH (U) 6.0 [pH] 5.0-9.0 [facility] Basophils Auto (Bld) [#/Vol] on 11-16-2023 Basophils (Bld) [#/Vol] 0.1 10 3/uL 0.0-0.1 [facility] Basophils/100 WBC Auto (Bld) on 11-16-2023 Basophils/100 WBC (Bld) 0.9 % 0.2-2.0 [facility] Eosinophils/100 WBC Auto (Bl d)on 11-16-2023 Eosinophils/100 WBC (Bld) 3.7 % 0.9-7.0 [facility] Erythrocyte distribution wid th Auto (RBC) [Ratio]on 11-16-2023 Erythrocyte distribution width (RBC) [Ratio] 13.1 % 11.0-15.0 [facility] Estimated glomerular filtrat ion rate (GFR) non- Americanon 11-16-2023 GFR/1.73 sq M.predicted among non-blacks MDRD (S/P/Bld) [Vol rate/Area] 47 mL/min/{1.73_m2} >=60 [facility] Globulin Calc (S) [Mass/Vol] on 11-16-2023 Globulin (S) [Mass/Vol] 3.4 g/dL [facility] Hematocrit Auto (Bld) [Volum e fraction]on 11-16-2023 Hematocrit (Bld) [Volume fraction] 39.1 % 36.0-48.0 [facility] Hemoglobin [Mass/volume] in Bloodon 11-16-2023 Hemoglobin (Bld) [Mass/Vol] 12.7 g/dL 12.0-16.0 [facility] Laboratory - Chemistry and C hemistry - challengeon 11-16-2023 Albumin [Mass/Vol] 3.2 g/dL 3.4-5.0 [facility] ALP [Catalytic activity/Vol] 61 U/L 46-116 [facility] ALT [Catalytic activity/Vol] 27 U/L 14-59 [facility] AST [Catalytic activity/Vol] 22 U/L 15-37 [facility] Bilirubin [Mass/Vol] 0.4 mg/dL 0.2-1.0 [facility] Bilirubin.direct [Mass/Vol] 0.1 mg/dL 0.0-0.2 [facility] Creatinine [Mass/Vol] 1.14 mg/dL 0.55-1.02 [facility] GFR/1.73 sq M.predicted MDRD (S/P/Bld) [Vol rate/Area] 57 mL/min/{1.73_m2} >=60 [facility] Protein [Mass/Vol] 6.6 g/dL 6.4-8.2 [facility] Laboratory - Hematology and Cell countson 11-16-2023 ESR (Bld) [Velocity] 6 mm/h <=30 [facility] Immature granulocytes/100 WBC (Bld) 0.0 % 0.0-0.5 [facility] Leukocytes [#/volume] correc manju for nucleated erythrocytes in Blood by Automated counon 11-16-2023 WBC corrected for nucl RBC Auto (Bld) [#/Vol] 5.7 10 3/uL 4.0-11.0 [facility] Lymphocytes Auto (Bld) [#/Vo l]on 11-16-2023 Lymphocytes (Bld) [#/Vol] 1.7 10 3/uL 1.2-3.8 [facility] Lymphocytes/100 WBC Auto (Bl d)on 11-16-2023 Lymphocytes/100 WBC (Bld) 29.6 % 20.5-60.0 [facility] MCH Auto (RBC) [Entitic mass ]on 11-16-2023 MCH (RBC) [Entitic mass] 29.9 pg 26.7-34.0 [facility] MCHC Auto (RBC) [Mass/Vol]on 11-16-2023 MCHC (RBC) [Mass/Vol] 32.5 g/dL 29.9-35.2 [facility] MCV Auto (RBC) [Entitic vol] on 11-16-2023 MCV (RBC) [Entitic vol] 92.0 fL 81.0-99.0 [facility] Monocytes Auto (Bld) [#/Vol] on 11-16-2023 Monocytes (Bld) [#/Vol] 0.5 10 3/uL 0.3-0.8 [facility] Monocytes/100 WBC Auto (Bld) on 11-16-2023 Monocytes/100 WBC (Bld) 8.5 % 1.7-12.0 [facility] Neutrophils Auto (Bld) [#/Vo l]on 11-16-2023 Neutrophils (Bld) [#/Vol] 3.3 10 3/uL 1.4-6.5 [facility] Neutrophils/100 WBC Auto (Bl d)on 11-16-2023 Neutrophils/100 WBC (Bld) 57.3 % 43.0-75.0 [facility] No Panel Informationon 11-15 Eosinophils # (Auto) 0.2 10 3/uL 0.0-0.7 [facility] Immature Granulocyte # (Auto) 0.00 10 3/uL 0.00-0.03 [facility] Platelet mean volume Auto (B ld) [Entitic vol]on 11-16-2023 Platelet mean volume (Bld) [Entitic vol] 11.7 fL 9.5-13.5 [facility] Platelets Auto (Bld) [#/Vol] on 11-16-2023 Platelets (Bld) [#/Vol] 228 10 3/uL 150-450 [facility] RBC Auto (Bld) [#/Vol]on RBC (Bld) [#/Vol] 4.25 10 6/uL 4.20-5.40 [facility] Serum or plasma albumin/glob ulin mass ratioon 11-16-2023 Albumin/Globulin [Mass ratio] 0.9 {ratio} [facility] XR wrist LT min 3V*on 2022 XR wrist LT min 3V* [facility] [employer] Other XR wrist LT min 3V* [facility] [employer] Other XR wrist LT min 3V* [facility] [employer] Other XR wrist LT min 3V* [place] [address] [employer] Other XR wrist LT min 3V* XRay Report [place] [employer] Other XR wrist LT min 3V* Signed [employer] Other XR wrist LT min 3V* Patient: Reba Gregory MR#: [id number] [employer] Other XR wrist LT min 3V* : 1955 Acct:[id number] [employer] Other XR wrist LT min 3V* Age/Sex: 67 / F ADM Date: 03/03/23 [employer] Other XR wrist LT min 3V* Loc: [facility] [place] Room: Type : [facility] [employer] Other XR wrist LT min 3V* Attending Dr: Kim Munson MD [employer] Other XR wrist LT min 3V* Copies to: Kiana Munson MD [employer] Other XR wrist LT min 3V* Ordering Provider: Kiana Munson MD [employer] Other XR wrist LT min 3V* Date of Service: 03/03/23 [employer] Other XR wrist LT min 3V* XR/XR wrist LT min 3V*: Wrist arthritis;Mass of left hand [employer] Other XR wrist LT min 3V* LEFT WRIST - 4 views [employer] Other XR wrist LT min 3V* CLINICAL HISTORY: Le ft wrist pain for months. Possible cyst ulnar aspect of left hand. [employer] Other XR wrist LT min 3V* COMPARISON: None [employer] Other XR wrist LT min 3V* FINDINGS: [employer] Other XR wrist LT min 3V* No focal soft tissue abnormality is seen. No acute bony process is noted. There is widening of the [employer] Other XR wrist LT min 3V* scapholunate space w ith SLAC wrist deformity. Cystic changes are noted involving the capitate and [employer] Other XR wrist LT min 3V* hamate bones. No bon y erosions. Moderate degenerative changes are noted involving the CMC joint of [employer] Other XR wrist LT min 3V* the thumb. 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 NO ACUTE BONY PROCESS. [employer] Other XR wrist LT min 3V* DEGENERATIVE CHANGES , WORST AT THE CMC JOINT OF THE THUMB. [employer] Other XR wrist LT min 3V* Impression dictated by: Dave Espana Jr., D.OShannon03/03/2023 11:50 AM [employer] Other XR wrist LT min 3V* Dictation Location: [place] [address] [employer] Other XR wrist LT min 3V* Transcribed By: TANYA 03/03/23 1150 [employer] Other XR wrist LT min 3V* Dictated By: Dave Espana Jr, DO 03/03/23 1147 [facility] [employer] Other XR wrist LT min 3V* Signed By: [facility] [employer] Other XR wrist LT min 3V* 03/03/23 1150 [facility] [employer] Other XR wrist LT min 3V* [place] [address] XRay Report Signed Patient: Reba Gregory MR#: [id number] : 1955 Acct:[id number] Age/Sex: 67 / F ADM Date: 03/03/23 Loc: [facility] – [place] Room: Type: [facility] Attending Dr: Kiana Munson MD Copies to: [...] Espana Jr., D.O.03/03/2023 11:50 AM Dictation Location: [facility]12 Transcribed By: [facility] 03/03/23 1150 Dictated By: Dave Espana Jr, 03/03/23 1147 Signed By: 03/03/23 1150 Normal [facility] XR knee LT 2Von 02-17-2023 XR knee LT 2V [facility] [employer] Other XR knee LT 2V [facility] [employer] Other XR knee LT 2V 1111 [facility] [employer] Other XR knee LT 2V [address] [employer] Other XR knee LT 2V XRay Report [facility] [employer] Other XR knee LT 2V Signed [employer] Other XR knee LT 2V Patient: Reba Gregory MR#: [id number] [employer] Other XR knee LT 2V : 1955 Acct:[id number] [employer] Other XR knee LT 2V Age/Sex: 67 / F ADM Date: 02/17/23 [employer] Other XR knee LT 2V Loc: [facility] – [place] Room: Type : [facility] [employer] Other XR knee LT 2V Attending Dr: Nabor Nelson II, MD [employer] Other XR knee LT 2V Copies to: Nabor Nelson MD [employer] Other XR knee LT 2V Ordering Provider: Ragini Nelson MD [employer] Other XR knee LT 2V Date of Service: 02/17/23 [employer] Other XR knee LT 2V XR/XR knee LT 2V: Aftercare following joint replacement surgery;[facility] [employer] Other XR knee LT 2V of le [employer] Other XR knee LT 2V [address] ain film [employer] Other XR knee LT 2V COMPARISON: 05/28/2022 [employer] Other XR knee LT 2V HISTORY: Status post left total knee arthroplasty [employer] Other XR knee LT 2V ACUTE FINDINGS: None [employer] Other XR knee LT 2V DEGENERATIVE CHANGE: Unremarkable [employer] Other XR knee LT 2V SOFT TISSUE FINDINGS : Unremarkable [employer] Other XR knee LT 2V JOINT EFFUSION: None [employer] Other XR knee LT 2V POSTOP CHANGES: No hardware failure or loosening. [employer] Other XR knee LT 2V BONE MINERALIZATION: Adequate [employer] Other XR knee LT 2V X R/XR knee LT 2V [employer] Other XR knee LT 2V IMPRESSION: Stable l eft knee arthroplasty [employer] Other XR knee LT 2V Impression dictated by: Rome Guerra M.D.02/17/2023 1:58 PM [employer] Other XR knee LT 2V Dictation Location: [place] [address] [employer] Other XR knee LT 2V Transcribed By: PWS 02/17/23 [facility] [employer] Other XR knee LT 2V Dictated By: Phuc Guerra DO 02/17/23 [facility] [employer] Other XR knee LT 2V Signed By: [employer] Other XR knee LT 2V 02/17/23 [facility] [employer] Other XR knee LT 2V [facility] [employer] [address] [place] [address] XRay Report Signed Patient: Reba Gregory MR#: [id number] : 1955 Acct:[id number] Age/Sex: 67 / F ADM Date: 02/17/23 Loc: [facility] – [place] Room: Type: [facility] Attending Dr: Nabor Nelson II, MD Copies [...] Rome Guerra M.D.02/17/2023 1:58 PM Dictation Location: [place] [address] Transcribed By: [facility] 02/17/23 1358 Dictated By: Rome Guerra DO 02/17/23 1357 Signed By: 02/17/23 1358 Normal [facility] Automated epithelial cells c ount in urine sediment (number/area)Ordered By: Nabor Wilson on 02-03-2023 Epithelial cells Auto (Urine sed) [#/Area] 0-1 [HPF] 0-2 [facility] Automated erythrocytes count in urine sediment (number/area)Ordered By: Nabor Wilson on 02-03-2023 RBC Auto (Urine sed) [#/Area] 0-1 [HPF] 0-4 [facility] Automated leukocytes count i n urine sediment (number/area)Ordered By: Nabor Wilson on 02-03-2023 WBC Auto (Urine sed) [#/Area] 0-1 [HPF] 0-4 [facility] Automated urine hyaline cast s count (number/volume)Ordered By: Nabor Wilson on 02-03-2023 Hyaline casts Auto (U) [#/Vol] None seen [LPF] 0-1 [facility] Bilirubin Test strip Ql (U)O rdered By: Nabor Wilson on 02-03-2023 Bilirubin Ql (U) Negative Negative [facility] Calcium [Mass/volume] in 24 hour UrineOrdered By: Nabor Wilson on 02-03-2023 Calcium (24H U) [Mass/Vol] 1.1 mg/dL Not Estab. [facility] Calcium/Creatinine [Mass Rat io] in UrineOrdered By: Nabor Wilson on 02-03-2023 Calcium/Creatinine (U) [Mass ratio] 24 mg/g creat [address] [place] [address] Comment on above: Performed at: [facility] [address] [id number] Director: Matty Diaz PhD, Phone: [phone] Color Auto (U)Ordered By: Anne Wilson on 02-03-2023 Color (U) Yellow Yellow [facility] Creatinine [Mass/volume] in UrineOrdered By: Nabor Wilson on 02-03-2023 Creatinine (U) [Mass/Vol] 46.2 mg/dL Not Estab. [facility] Ketones Auto test strip (U) [Mass/Vol]Ordered By: Nabor Wilson on 02-03-2023 Ketones (U) [Mass/Vol] Negative Negative [facility] Nitrite Test strip Ql (U)Ord ered By: Nabor Wilson on 02-03-2023 Nitrite Ql (U) Negative Negative [facility] Protein Auto test strip (U) [Mass/Vol]Ordered By: Nabor Wilson on 02-03-2023 Protein (U) [Mass/Vol] Negative Negative [facility] Specific gravity Auto test s trip (U) [Rel density]Ordered By: Nabor Wilson on 02-03-2023 Specific gravity (U) [Rel density] 1.010 1.001-1.030 [facility] Urine bacteria detection by automated methodOrdered By: Nabor Wilson on 02-03-2023 Bacteria Auto Ql (U) None seen None Seen [facility] Urine clarity by refractomet ry automatedOrdered By: Nabor Wilson on 02-03-2023 Clarity Refractometry automated (U) Clear Clear [facility] Urine glucose measurement by automated test strip (mass/volume)Ordered By: Nabor Wilson on 02-03-2023 Glucose Auto test strip (U) [Mass/Vol] Normal mg/dL Normal [facility] Urine hemoglobin detection b y automated test stripOrdered By: Nabor Wilson on 02-03-2023 Hemoglobin Auto test strip Ql (U) Negative Negative [facility] Urine leukocyte esterase det ection by automated test stripOrdered By: Nabor Wilson on 02-03-2023 Leukocyte esterase Auto test strip Ql (U) Negative Negative [facility] Urobilinogen Auto test strip (U) [Mass/Vol]Ordered By: Nabor Wilson on 02-03-2023 Urobilinogen (U) [Mass/Vol] Normal mg/dL Normal [facility] pH Auto test strip (U)Ordere d By: Nabor Wilson on 02-03-2023 pH (U) 5.5 [pH] 5.0-9.0 [facility] C3 and C4 COMPLEMENTon 01-22 Complement C3, Serum 147 mg/dL Normal 82-167 [facility] Comment on above: Performed By: #### C SUITE #### [facility] [address] [place] [address] Dr. Agueda Wiley Complement C4, Serum 29 mg/dL Normal 12-38 [facility] Comment on above: Performed By: #### C SUITE #### [facility] [address] [place] [address] Dr. Agueda Wiley CBC AUTO DIFFon 01-21-2023 BASO # 0.1 103/ul Normal 0.0-0.1 [facility] Comment on above: Performed By: #### C MIKKI LIVER #### [facility] [address] [place] [address] Dr. Agueda Wiley Basophils/100 WBC (Bld) 0.6 % Normal 0.2-2.0 [facility] Comment on above: Performed By: #### C MIKKI, LIVER #### [facility] [address] [place] [address] Dr. Agueda Wiley EO # 0.2 103/ul Normal 0.0-0.7 [facility] Comment on above: Performed By: #### C MIKKI, LIVER #### [facility] [address] [place] [address] Dr. Agueda Wiley Eosinophils/100 WBC (Bld) 1.7 % Normal 0.9-7.0 [facility] Comment on above: Performed By: #### C MIKKI, LIVER #### [facility] [address] [place] [address] Dr. Agueda Wiley Erythrocyte distribution width (RBC) [Ratio] 12.4 % Normal 11.0-15.0 [facility] Comment on above: Performed By: #### C MIKKI, LIVER #### [facility] [address] [place] [address] Dr. Agueda Wiley Hematocrit (Bld) [Volume fraction] 44.0 % Normal 36.0-48.0 [facility] Comment on above: Performed By: #### C MIKKI, LIVER #### [facility] [address] [place] [address] Dr. Agueda Wiley Hemoglobin (Bld) [Mass/Vol] 14.2 g/dL Normal 12.0-16.0 [facility] Comment on above: Performed By: #### C MIKKI, LIVER #### [facility] [address] [place] [address] Dr. Agueda Wiley IG # 0.03 10e3/ul Normal 0.00-0.03 [facility] Comment on above: Performed By: #### C MIKKI, LIVER #### [facility] [address] [place] [address] Dr. Agueda Wiley IG % 0.3 % Normal 0.0-0.5 [facility] Comment on above: Performed By: #### C MIKKI, LIVER #### [facility] [address] [place] [address] Dr. Agueda Wiley LYMPH # 2.2 103/ul Normal 1.2-3.8 [facility] Comment on above: Performed By: #### C MIKKI, LIVER #### [facility] [address] [place] [address] Dr. Agueda Wiley Lymphocytes/100 WBC (Bld) 21.1 % Normal 20.5-60.0 [facility] Comment on above: Performed By: #### C MIKKI, LIVER #### [facility] [address] [place] [address] Dr. Agueda Wiley MANUAL DIFF REQ NO Normal [facility] Comment on above: Performed By: #### C MIKKI, LIVER #### [facility] [address] [place] [address] [address] Agueda Wiley MCH (RBC) [Entitic mass] 29.8 pg Normal 26.7-34.0 [facility] Comment on above: Performed By: #### C MIKKI, LIVER #### [facility] [address] [place] [address] Dr. Agueda Wiley MCHC (RBC) [Mass/Vol] 32.3 g/dL Normal 29.9-35.2 [facility] Comment on above: Performed By: #### C MIKKI, LIVER #### [facility] [address] [place] [address] Dr. Agueda Wiley MCV (RBC) [Entitic vol] 92.2 fL Normal 81.0-99.0 [facility] Comment on above: Performed By: #### C MIKKI, LIVER #### [facility] [address] [place] [address] Dr. Agueda Wiley MONO # 1.0 103/ul Critically high 0.3-0.8 [facility] Comment on above: Performed By: #### C MIKKI, LIVER #### [facility] [address] [place] [address] Dr. Agueda Wiley Monocytes/100 WBC (Bld) 9.2 % Normal 1.7-12.0 [facility] Comment on above: Performed By: #### C MIKKI, LIVER #### [facility] [address] [place] [address] Dr. Agueda Wiley NEUT # 7.0 103/ul Critically high 1.4-6.5 [facility] Comment on above: Performed By: #### C MIKKI, LIVER #### [facility] [address] [place] [address] Dr. Agueda Wiley Neutrophils/100 WBC (Bld) 67.1 % Normal 43.0-75.0 [facility] Comment on above: Performed By: #### C MIKKI, LIVER #### [facility] [address] [place] [address] Dr. Agueda Wiley Platelet mean volume (Bld) [Entitic vol] 11.6 fL Normal 9.5-13.5 [facility] Comment on above: Performed By: #### C MIKKI, LIVER #### [facility] [address] [place] [address] Dr. Agueda Wiley PLT 289 103/ul Normal 150-450 [facility] Comment on above: Performed By: #### C MIKKI, LIVER #### [facility] [address] [place] [address] Dr. Agueda Wiley RBC 4.77 106/ul Normal 4.20-5.40 [facility] Comment on above: Performed By: #### C MIKKI, LIVER #### [facility] [address] [place] [address] Dr. Agueda Wiley WBC 10.5 103/ul Normal 4.0-11.0 [facility] Comment on above: Performed By: #### C MIKKI, LIVER #### [facility] [address] [place] [address] Dr. Agueda Wiley CREATININEon 01-21-2023 Creatinine [Mass/Vol] 1.19 mg/dL Critically high 0.55-1.02 [facility] Comment on above: Performed By: #### C MIKKI, LIVER, CRP #### [facility] [address] [place] [address] Dr. Agueda Wiley EGFR-AF TANZANIAN 55 mL/min/1.73m2 Critically low >=60 [facility] Comment on above: Performed By: #### C MIKKI, LIVER, CRP #### [facility] [address] [place] [address] Dr. Agueda Wiley EGFR-NON AF TANZANIAN 45 mL/min/1.73m2 Critically low >=60 [facility] Comment on above: Performed By: #### C MIKKI, LIVER, CRP #### [facility] [address] [place] [address] Dr. Agueda Wiley CRPon 01-21-2023 CRP [Mass/Vol] mg/L Normal <=1.0 [facility] Comment on above: Performed By: #### C MIKKI, LIVER, CRP #### [facility] [address] [place] [address] [address] Agueda Wiley LIVER PROFILEon 01-21-2023 Albumin [Mass/Vol] 3.5 g/dL Normal 3.4-5.0 [facility] Comment on above: Performed By: #### C MIKKI, LIVER, CRP #### [facility] [address] [place] [address] [address] Agueda Wiley Albumin/Globulin [Mass ratio] 0.8 {ratio} Normal [facility] Comment on above: Performed By: #### C MIKKI, LIVER, CRP #### [facility] [address] [place] [address] [address] Agueda Wiley ALP [Catalytic activity/Vol] 87 U/L Normal 46-116 [facility] Comment on above: Performed By: #### C MIKKI, LIVER, CRP #### [facility] [address] [place] [address] [address] Agueda Wiley ALT [Catalytic activity/Vol] 33 U/L Normal 14-59 [facility] Comment on above: Performed By: #### C MIKKI, LIVER, CRP #### [facility] [address] [place] [address] [address] Agueda Wiley AST [Catalytic activity/Vol] 22 U/L Normal 15-37 [facility] Comment on above: Performed By: #### C MIKKI, LIVER, CRP #### [facility] [address] [place] [address] [address] Agueda Wiley BILI, CONJUGATED 0.1 mg/dL Normal 0.0-0.2 [facility] Comment on above: Performed By: #### C MIKKI, LIVER, CRP #### [facility] [address] [place] [address] [address] Agueda Wiley Bilirubin [Mass/Vol] 0.4 mg/dL Normal 0.2-1.0 [facility] Comment on above: Performed By: #### C MIKKI, LIVER, CRP #### [facility] [address] [place] [address] [address] Agueda Wiley Globulin (S) [Mass/Vol] 4.2 g/dL Normal [facility] Comment on above: Performed By: #### C MIKKI, LIVER, CRP #### [facility] [address] [place] [address] Dr. Agueda Wiley Protein [Mass/Vol] 7.7 g/dL Normal 6.4-8.2 [facility] Comment on above: Performed By: #### C MIKKI, LIVER, CRP #### [facility] [address] [place] [address] Dr. Agueda Wiley SED RATE WESTERGRENon 2022 SED RATE 26 mm/hr Normal <=30 [facility] Comment on above: Performed By: #### A NAIFA #### [facility] [address] [place] [address] Dr. Agueda Wiley UA RANDOM W/MICROSCOPICon BACTERIA TRACE Abnormal NONE SEEN [facility] Comment on above: Performed By: #### C MIKKI, LIVER #### [facility] [address] [place] [address] Dr. Agueda Wiley Bilirubin Ql (U) Negative Normal NEGATIVE The [facility] Comment on above: Performed By: #### C MIKKI, LIVER #### [facility] [address] [place] [address] Dr. Agueda Wiley CAST NONE SEEN Normal NONE SEEN [facility] Comment on above: Performed By: #### C MIKKI, LIVER #### [facility] [address] [place] [address] Dr. Agueda Wiley Clarity (U) CLEAR Normal CLEAR [facility] Comment on above: Performed By: #### C MIKKI, LIVER #### [facility] [address] [place] [address] Dr. Agueda Wiley Color (U) YELLOW Normal YELLOW [facility] Comment on above: Performed By: #### C MIKKI, LIVER #### [facility] [address] [place] [address] Dr. Agueda Wiley Crystals LM Nom (Urine sed) NONE SEEN Normal NONE SEEN [facility] Comment on above: Performed By: #### C MIKKI, LIVER #### [facility] [address] [address] [address] Agueda Wiley Epithelial cells LM Ql (Urine sed) FEW Abnormal NONE SEEN /RARE [facility] Comment on above: Performed By: #### C MIKKI, LIVER #### [facility] [address] [place] [address] Dr. Agueda Wiley Glucose Ql (U) Negative Normal NEGATIVE [facility] Comment on above: Performed By: #### C MIKKI, LIVER #### [facility] [address] [place] [address] Dr. Agueda Wiley Hemoglobin Ql (U) Negative Normal NEGATIVE The [facility] Comment on above: Performed By: #### C MIKKI, LIVER #### [facility] [address] [place] [address] Dr. Agueda Wiley Ketones Ql (U) Negative Normal NEGATIVE [facility] Comment on above: Performed By: #### C MIKKI, LIVER #### [facility] [address] [place] [address] Dr. Agueda Wiley LEUKOCYTES Negative Normal NEGATIVE [facility] Comment on above: Performed By: #### C MIKKI, LIVER #### [facility] [address] [place] [address] Dr. Agueda Wiley MUCOUS MODERATE Abnormal NONE SEEN [facility] Comment on above: Performed By: #### C MIKKI, LIVER #### [facility] [address] [place] [address] Dr. Agueda Wiley Nitrite Ql (U) Negative Normal NEGATIVE [facility] Comment on above: Performed By: #### C MIKKI, LIVER #### [facility] [address] [place] [address] Dr. Agueda Wiley pH (U) 5.0 [pH] Normal 5-9 [facility] Comment on above: Performed By: #### C MIKKI, LIVER #### [facility] [address] [place] [address] Dr. Agueda Wiley RBC 2-5 Abnormal 0-2 [facility] Comment on above: Performed By: #### C MIKKI, LIVER #### [facility] [address] [place] [address] Dr. Agueda Wiley SPEC GRAVITY >=1.030 Abnormal 1.005-<=1.0 25 [facility] Comment on above: Performed By: #### C MIKKI, LIVER #### [facility] [address] [place] [address] Dr. Agueda Wiley UA PROTEIN 100 mg/dl Abnormal NEGATIVE/ TRACE [facility] Comment on above: Performed By: #### C MIKKI, LIVER #### [facility] [address] [place] [address] Dr. Agueda Wiley Urobilinogen Qn (U) 1.0 {Charl[place]'U}/dL Normal 0.2 - 1. 0 [facility] Comment on above: Performed By: #### C MIKKI, LIVER #### [facility] [address] [place] [address] Dr. Agueda Wiley WBC 0-2 Abnormal NONE SEEN [facility] Comment on above: Performed By: #### C MIKKI, LIVER #### [facility] [address] [place] [address] Dr. Agueda Wiley CBC AUTO DIFFon 11-27-2022 BASO # 0.0 103/ul Normal 0.0-0.1 [facility] Comment on above: Performed By: #### Gila KAYE, LIVER #### [facility] [address] [place] [address] Dr. Agueda Wiley Basophils/100 WBC (Bld) 0.3 % Normal 0.2-2.0 [facility] Comment on above: Performed By: #### C MIKKI, LIVER #### [facility] [address] [place] [address] Dr. Agueda Wiley EO # 0.1 103/ul Normal 0.0-0.7 [facility] Comment on above: Performed By: #### Gila KAYE, LIVER #### [facility] [address] [place] [address] Dr. Agueda Wiley Eosinophils/100 WBC (Bld) 0.9 % Normal 0.9-7.0 [facility] Comment on above: Performed By: #### C MIKKI, LIVER #### [facility] [address] [address] [address] Agueda Wiley Erythrocyte distribution width (RBC) [Ratio] 15.8 % Critically high 11.0-15.0 [facility] Comment on above: Performed By: #### C MIKKI, LIVER #### [facility] [address] [place] [address] Dr. Agueda Wiley Hematocrit (Bld) [Volume fraction] 39.6 % Normal 36.0-48.0 [facility] Comment on above: Performed By: #### C MIKKI, LIVER #### [facility] [address] [place] [address] Dr. Agueda Wiley Hemoglobin (Bld) [Mass/Vol] 12.7 g/dL Normal 12.0-16.0 [facility] Comment on above: Performed By: #### C MIKKI, LIVER #### [facility] [address] [place] [address] Dr. Agueda Wiley IG # 0.08 10e3/ul Critically high 0.00-0.03 [facility] Comment on above: Performed By: #### C MIKKI, LIVER #### [facility] [address] [place] [address] Dr. Agueda Wiley IG % 0.6 % Critically high 0.0-0.5 [facility] Comment on above: Performed By: #### C MIKKI, LIVER #### [facility] [address] [place] [address] Dr. Agueda Wiley LYMPH # 1.2 103/ul Normal 1.2-3.8 [facility] Comment on above: Performed By: #### C MIKKI, LIVER #### [facility] [address] [place] [address] Dr. Agueda Wiley Lymphocytes/100 WBC (Bld) 8.6 % Critically low 20.5-60.0 [facility] Comment on above: Performed By: #### C MIKKI, LIVER #### [facility] [address] [place] [address] Dr. Agueda Wiley MANUAL DIFF REQ NO Normal [facility] Comment on above: Performed By: #### C MIKKI, LIVER #### [facility] [address] [place] [address] Dr. Agueda Wiley MCH (RBC) [Entitic mass] 29.5 pg Normal 26.7-34.0 [facility] Comment on above: Performed By: #### C MIKKI, LIVER #### [facility] [address] [place] [address] Dr. Agueda Wiley MCHC (RBC) [Mass/Vol] 32.1 g/dL Normal 29.9-35.2 [facility] Comment on above: Performed By: #### C MIKKI, LIVER #### [facility] [address] [place] [address] Dr. Agueda Wiley MCV (RBC) [Entitic vol] 92.1 fL Normal 81.0-99.0 [facility] Comment on above: Performed By: #### C MIKKI, LIVER #### [facility] [address] [place] [address] Dr. Agueda Wiley MONO # 0.9 103/ul Critically high 0.3-0.8 [facility] Comment on above: Performed By: #### C MIKKI, LIVER #### [facility] [address] [place] [address] Dr. Agueda Wiley Monocytes/100 WBC (Bld) 7.0 % Normal 1.7-12.0 [facility] Comment on above: Performed By: #### C MIKKI, LIVER #### [facility] [address] [place] [address] Dr. Agueda Wiley NEUT # 11.1 103/ul Critically high 1.4-6.5 The [facility] Comment on above: Performed By: #### C MIKKI, LIVER #### [facility] [address] [place] [address] Dr. Agueda Wiley Neutrophils/100 WBC (Bld) 82.6 % Critically high 43.0-75.0 [facility] Comment on above: Performed By: #### C MIKKI, LIVER #### [facility] [address] [place] [address] Dr. Agueda Wiley Platelet mean volume (Bld) [Entitic vol] 11.3 fL Normal 9.5-13.5 [facility] Comment on above: Performed By: #### C MIKKI, LIVER #### [facility] [address] [place] [address] Dr. Agueda Wiley PLT 245 103/ul Normal 150-450 [facility] Comment on above: Performed By: #### C MIKKI, LIVER #### [facility] [address] [place] [address] Dr. Agueda Wiley RBC 4.30 106/ul Normal 4.20-5.40 [facility] Comment on above: Performed By: #### C MIKKI, LIVER #### [facility] [address] [place] [address] Dr. Agueda Wiley WBC 13.5 103/ul Critically high 4.0-11.0 [facility] Comment on above: Performed By: #### Gila KAYE, LIVER #### [facility] [address] [place] [address] Dr. Agueda Wiley CREATININEon 11-27-2022 Creatinine [Mass/Vol] 1.13 mg/dL Critically high 0.55-1.02 [facility] Comment on above: Performed By: #### Gila KAYE, LIVER #### [facility] [address] [place] [address] Dr. Agueda Wiley EGFR-AF TANZANIAN 58 mL/min/1.73m2 Critically low >=60 [facility] Comment on above: Performed By: #### Gila KAYE, LIVER #### [facility] [address] [place] [address] Dr. Agueda Wiley EGFR-NON AF TANZANIAN 48 mL/min/1.73m2 Critically low >=60 [facility] Comment on above: Performed By: #### C MIKKI, LIVER #### [facility] [address] [place] [address] Dr. Agueda Wiley LIVER PROFILEon 11-27-2022 Albumin [Mass/Vol] 3.4 g/dL Normal 3.4-5.0 [facility] Comment on above: Performed By: #### C MIKKI, LIVER #### [facility] [address] [address] [address] Agueda Wiley Albumin/Globulin [Mass ratio] 1.0 {ratio} Normal [facility] Comment on above: Performed By: #### C MIKKI, LIVER #### [facility] [address] [address] [address] Agueda Wiley ALP [Catalytic activity/Vol] 67 U/L Normal 46-116 [facility] Comment on above: Performed By: #### C MIKKI, LIVER #### [facility] [address] [address] [address] Agueda Wiley ALT [Catalytic activity/Vol] 37 U/L Normal 14-59 [facility] Comment on above: Performed By: #### C MIKKI, LIVER #### [facility] [address] [address] [address] Agueda Wiley AST [Catalytic activity/Vol] 20 U/L Normal 15-37 [facility] Comment on above: Performed By: #### C MIKKI, LIVER #### [facility] [address] [address] [address] Agueda Wiley BILI, CONJUGATED 0.1 mg/dL Normal 0.0-0.2 [facility] Comment on above: Performed By: #### C MIKKI, LIVER #### [facility] [address] [address] [address] Agueda Wiley Bilirubin [Mass/Vol] 0.4 mg/dL Normal 0.2-1.0 [facility] Comment on above: Performed By: #### C MIKKI, LIVER #### [facility] [address] [address] [address] Agueda Wiley Globulin (S) [Mass/Vol] 3.4 g/dL Normal [facility] Comment on above: Performed By: #### C MIKKI, LIVER #### [facility] [address] [address] [address] Agueda Wiley Protein [Mass/Vol] 6.8 g/dL Normal 6.4-8.2 [facility] Comment on above: Performed By: #### C MIKKI, LIVER #### [facility] [address] [place] [address] Dr. Agueda Wiley [facility] mm/hr Normal <=30 [facility] Comment on above: Performed By: #### C MIKKI, LIVER #### [facility] [address] [place] [address] Dr. Agueda Wiley CBC AUTO DIFFon 10-05-2022 BASO # 0.0 103/ul Normal 0.0-0.1 [facility] Comment on above: Performed By: #### C MIKKI, LIVER #### [facility] [address] [place] [address] Dr. Agueda Wiley Basophils/100 WBC (Bld) 0.3 % Normal 0.2-2.0 [facility] Comment on above: Performed By: #### C MIKKI, LIVER #### [facility] [address] [place] [address] Dr. Agueda Wiley EO # 0.1 103/ul Normal 0.0-0.7 [facility] Comment on above: Performed By: #### C MIKKI, LIVER #### [facility] [address] [place] [address] Dr. Agueda Wiley Eosinophils/100 WBC (Bld) 0.6 % Critically low 0.9-7.0 [facility] Comment on above: Performed By: #### C MIKKI, LIVER #### [facility] [address] [place] [address] Dr. Agueda Wiley Erythrocyte distribution width (RBC) [Ratio] 14.0 % Normal 11.0-15.0 [facility] Comment on above: Performed By: #### C MIKKI, LIVER #### [facility] [address] [place] [address] Dr. Agueda Wiley Hematocrit (Bld) [Volume fraction] 38.5 % Normal 36.0-48.0 [facility] Comment on above: Performed By: #### C MIKKI, LIVER #### [facility] [address] [place] [address] Dr. Agueda Wiley Hemoglobin (Bld) [Mass/Vol] 13.3 g/dL Normal 12.0-16.0 [facility] Comment on above: Performed By: #### C MIKKI, LIVER #### [facility] [address] [place] [address] Dr. Agueda Wiley IG # 0.03 10e3/ul Normal 0.00-0.03 [facility] Comment on above: Performed By: #### C MIKKI, LIVER #### [facility] [address] [place] [address] Dr. Agueda Wiley IG % 0.3 % Normal 0.0-0.5 [facility] Comment on above: Performed By: #### C MIKKI, LIVER #### [facility] [address] [place] [address] Dr. Agueda Wiley LYMPH # 1.2 103/ul Normal 1.2-3.8 [facility] Comment on above: Performed By: #### Gila KAYE, LIVER #### [facility] [address] [place] [address] Dr. Agueda Wiley Lymphocytes/100 WBC (Bld) 10.3 % Critically low 20.5-60.0 [facility] Comment on above: Performed By: #### C MIKKI, LIVER #### [facility] [address] [place] [address] Dr. Agueda Wiley MANUAL DIFF REQ NO Normal [facility] Comment on above: Performed By: #### C MIKKI, LIVER #### [facility] [address] [place] [address] Dr. Agueda Wiley MCH (RBC) [Entitic mass] 29.1 pg Normal 26.7-34.0 [facility] Comment on above: Performed By: #### C MIKKI, LIVER #### [facility] [address] [place] [address] Dr. Agueda Wiley MCHC (RBC) [Mass/Vol] 34.5 g/dL Normal 29.9-35.2 [facility] Comment on above: Performed By: #### C MIKKI, LIVER #### [facility] [address] [place] [address] Dr. Agueda Wiley MCV (RBC) [Entitic vol] 84.2 fL Normal 81.0-99.0 [facility] Comment on above: Performed By: #### C MIKKI, LIVER #### [facility] [address] [place] [address] Dr. Agueda Wiley MONO # 0.6 103/ul Normal 0.3-0.8 [facility] Comment on above: Performed By: #### C MIKKI, LIVER #### [facility] [address] [place] [address] Dr. Agueda Wiley Monocytes/100 WBC (Bld) 5.0 % Normal 1.7-12.0 [facility] Comment on above: Performed By: #### C MIKKI, LIVER #### [facility] [address] [place] [address] Dr. Agueda Wiley NEUT # 9.9 103/ul Critically high 1.4-6.5 [facility] Comment on above: Performed By: #### C MIKKI, LIVER #### [facility] [address] [place] [address] Dr. Agueda Wiley Neutrophils/100 WBC (Bld) 83.5 % Critically high 43.0-75.0 [facility] Comment on above: Performed By: #### Gila KAYE, LIVER #### [facility] [address] [place] [address] Dr. Agueda Wiley Platelet mean volume (Bld) [Entitic vol] 10.8 fL Normal 9.5-13.5 [facility] Comment on above: Performed By: #### C MIKKI, LIVER #### [facility] [address] [place] [address] Dr. Agueda Wiley PLT 265 103/ul Normal 150-450 [facility] Comment on above: Performed By: #### C MIKKI, LIVER #### [facility] [address] [place] [address] Dr. Agueda Wiley RBC 4.57 106/ul Normal 4.20-5.40 [facility] Comment on above: Performed By: #### C MIKKI, LIVER #### [facility] [address] [place] [address] Dr. Agueda Wiley WBC 11.9 103/ul Critically high 4.0-11.0 [facility] Comment on above: Performed By: #### C MIKKI, LIVER #### [facility] [address] [place] [address] Dr. Agueda Wiley CREATININEon 10-05-2022 Creatinine [Mass/Vol] 0.92 mg/dL Normal 0.55-1.02 [facility] Comment on above: Performed By: #### C MIKKI, LIVER #### [facility] [address] [place] [address] Dr. Agueda Wiley EGFR-AF TANZANIAN >60 Normal >=60 [facility] Comment on above: Performed By: #### C MIKKI, LIVER #### [facility] [address] [place] [address] Dr. Agueda Wiley EGFR-NON AF TANZANIAN >60 Normal >=60 [facility] Comment on above: Performed By: #### C MIKKI, LIVER #### [facility] [address] [place] [address] Dr. Agueda Wiley LIVER PROFILEon 10-05-2022 Albumin [Mass/Vol] 3.4 g/dL Normal 3.4-5.0 [facility] Comment on above: Performed By: #### C MIKKI, LIVER #### [facility] [address] [place] [address] Dr. Agueda Wiley Albumin/Globulin [Mass ratio] 1.0 {ratio} Normal [facility] Comment on above: Performed By: #### C MIKKI, LIVER #### [facility] [address] [place] [address] Dr. Agueda Wiley ALP [Catalytic activity/Vol] 90 U/L Normal 46-116 [facility] Comment on above: Performed By: #### C MIKKI, LIVER #### [facility] [address] [place] [address] Dr. Agueda Wiley ALT [Catalytic activity/Vol] 35 U/L Normal 14-59 [facility] Comment on above: Performed By: #### C MIKKI, LIVER #### [facility] [address] [address] [address] Agueda Wiley AST [Catalytic activity/Vol] 21 U/L Normal 15-37 [facility] Comment on above: Performed By: #### C MIKKI, LIVER #### [facility] [address] [address] [address] Agueda Wiley BILI, CONJUGATED 0.1 mg/dL Normal 0.0-0.2 [facility] Comment on above: Performed By: #### C MIKKI, LIVER #### [facility] [address] [address] [address] Agueda Wiley Bilirubin [Mass/Vol] 0.6 mg/dL Normal 0.2-1.0 [facility] Comment on above: Performed By: #### C MIKKI, LIVER #### [facility] [address] [place] [address] Dr. Agueda Wiley Globulin (S) [Mass/Vol] 3.5 g/dL Normal [facility] Comment on above: Performed By: #### C MIKKI, LIVER #### [facility] [address] [place] [address] Dr. Agueda Wiley Protein [Mass/Vol] 6.9 g/dL Normal 6.4-8.2 [facility] Comment on above: Performed By: #### C MIKKI, LIVER #### [facility] [address] [place] [address] Dr. Agueda Wiley SED RATE [facility] 2022 SED RATE 27 mm/hr Normal <=30 [facility] Comment on above: Performed By: #### C MIKKI, LIVER #### [facility] [address] [place] [address] Dr. Agueda Wiley XR hand RT min 3V*on 023 XR hand RT min 3V* [facility] [employer] Other XR hand RT min 3V* [facility] [employer] Other XR hand RT min 3V* [address] [employer] Other XR hand RT min 3V* [place] [address] [employer] Other XR hand RT min 3V* XRay Report [employer] Other XR hand RT min 3V* Signed [employer] Other XR hand RT min 3V* Patient: Reba Gregory MR#: [id number] [employer] Other XR hand RT min 3V* : 1955 Acct:[id number] [employer] Other XR hand RT min 3V* Age/Sex: 66 / F ADM Date: 09/23/22 [employer] Other XR hand RT min 3V* Loc: [facility] – [place] Room: Type : [facility] [employer] Other XR hand RT min 3V* Attending Dr: Kim Munson MD [employer] Other XR hand RT min 3V* Copies to: Kiana Munson MD [employer] Other XR hand RT min 3V* Ordering Provider: Kiana Munson MD [employer] Other XR hand RT min 3V* Date of Service: 09/23/22 [employer] Other XR hand RT min 3V* XR/XR hand RT min 3V*: Lesion of finger [employer] Other XR hand RT min 3V* RIGHT HAND - 4 views [employer] Other XR hand RT min 3V* REASON FOR EXAM: Rig ht fourth digit ischemia for one month. Mass on top of right fourth digit. [employer] Other XR hand RT min 3V* COMPARISON: None [employer] Other XR hand RT min 3V* FINDINGS: [employer] Other XR hand RT min 3V* No focal soft tissue abnormality is seen. No radiopaque foreign body. No acute bony process is [employer] Other XR hand RT min 3V* noted. Mild degenera tive changes involving the CMC joint of the thumb. No bony erosions are noted. [employer] Other XR hand RT min 3V* X R/XR hand RT min 3V* [employer] Other XR hand RT min 3V* IMPRESSION: [employer] Other XR hand RT min 3V* MILD DEGENERATIVE CH ANGES WITHOUT ACUTE BONY PROCESS. [employer] Other XR hand RT min 3V* Impression dictated by: Dave Espana Jr., D.O.09/23/2022 4:30 PM [employer] Other XR hand RT min 3V* Dictation Location: [place] [address] [employer] Other XR hand RT min 3V* Transcribed By: PWS 09/23/22 1630 [employer] Other XR hand RT min 3V* Dictated By: Dave Espana Jr, DO 09/23/22 1629 [employer] Other XR hand RT min 3V* Signed By: [employer] Other XR hand RT min 3V* 09/23/22 1630 [facility] [employer] Other Creatinine (Bld) [Mass/Vol]O rdered By: George Ryan on 09-08-2022 Creatinine [Mass/Vol] 0.9 mg/dL 0.6-1.3 [facility] Comment on above: ER/ESD physician is notified/shown all ISTAT results.Critical values may be confirmed by laboratory testing ifdeemed necessary by ER attending doctor. No Panel InformationOrdered By: George Ryan on 09-08-2022 POC Estimated GFR > 60 [facility] Comment on above: GFR estimated refere nce range: According to KDOQI guidelines, <60 ml/min/1.73m2 is sufficient to diagnose a patient with chronic kidney disease. POC Estimated GFR Non- Amer > 60 [facility] LUPUS ANTICOAGULANT PROFILEo n 09-04-2022 Anticardiolipin Ab, IgG <10 Normal [facility] Comment on above: Result Comment: Refe rence Range: Negative: <15 Indeterminate: 15 - 20 Low to medium positive: >20 - 80 High positive: >80 Performed By: #### C MIKKI, LIVER #### [facility] [address] [address] [address] Agueda Wiley Anticardiolipin Ab, IgM 34 MPL Critically high [facility] Comment on above: Result Comment: Refe rence Range: Negative: <13 Indeterminate: 13 - 20 Low to medium positive: >20 - 80 High positive: >80 Performed By: #### C MIKKI, LIVER #### [facility] [address] [address] [address] Agueda Wiley APTT 1:1 SHRIMP HEADER NIY Normal [facility] Comment on above: Result Comment: Test ing Not Indicated This test was developed and its performance characteristics determined by [facility]. It has not been cleared or approved by the [place] Food and Drug Administration. Performed By: #### C MIKKI, LIVER #### [facility] [address] [address] [address] Agueda Wiley APTT 1:1 Saline NIY Normal [facility] Comment on above: Result Comment: Test ing Not Indicated This test was developed and its performance characteristics determined by [facility]. It has not been cleared or approved by the [place] Food and Drug Administration. Performed By: #### C MIKKI, LIVER #### [facility] [address] [address] [address] Agueda Wiley aPTT Coag (Bld) [Time] 23.9 s Normal [facility] Comment on above: Result Comment: This test has not been validated for monitoring unfractionated heparin therapy. aPTT-based therapeutic ranges for unfractionated heparin therapy have not been established. Consider ordering Heparin anti-Xa (unfractionated). Reference Range: 18 years and older: 22.9 - 30.2 Performed By: #### C MIKKI, LIVER #### [facility] [address] [address] [address] Agueda Wiley Beta-2 Glycoprotein I, IgA <10 Normal [facility] Comment on above: Result Comment: The reference interval reflects a 3SD or 99th percentile interval. Reference Range: Negative: <26 Performed By: #### C MIKKI, LIVER #### [facility] [address] [address] [address] Agueda Wiley Beta-2 Glycoprotein I, IgG <10 Normal [facility] Comment on above: Result Comment: The reference interval reflects a 3SD or 99th percentile interval. Reference Range: Negative: <21 Performed By: #### C MIKKI, LIVER #### [facility] [address] [place] [address] Dr. Agueda Wiley Beta-2 Glycoprotein I, IgM <10 Normal [facility] Comment on above: Result Comment: The reference interval reflects a 3SD or 99th percentile interval. Reference Range: Negative: <33 Performed By: #### C MIKKI, LIVER #### [facility] [address] [address] [address] Agueda BARRVT Confirm Seconds NIY Normal [facility] Comment on above: Result Comment: Test ing Not Indicated Performed By: #### C MIKKI, LIVER #### [facility] [address] [address] [address] Agueda BARRVT Ratio NIY Normal [facility] Comment on above: Result Comment: Test ing Not Indicated Performed By: #### C MIKKI, LIVER #### [facility] [address] [address] [address] Agueda BARRVT Screen Seconds 39.3 sec [facility] Comment on above: Result Comment: Refe rence Range: <= 47.0 Performed By: #### C MIKKI, LIVER #### [facility] [address] [address] [address] Agueda Wiley Hexagonal Phospholipid Neutral 1 sec Normal [facility] Comment on above: Result Comment: This value is NEGATIVE. This is a qualitative assay and is therefore reported as positive for lupus anticoagulant or negative. The quantitative value is provided as an aid in diagnosis. Reference Range: 0 - 11 Performed By: #### C MIKKI, LIVER #### [facility] [address] [place] [address] Dr. Agueda Wiley INR Coag (PPP) [Relative time] 1.0 {INR} Normal [facility] Comment on above: Result Comment: Refe rence Range: >1 month: 0.9 - 1.2 Performed By: #### C MIKKI, LIVER #### [facility] [address] [place] [address] Dr. Agueda Wiley LAC Interpretation Comment Normal [facility] Comment on above: Result Comment: A [...] repeat testing may be indicated. Please contact [facility] if further clarification is needed. Performed By: #### C MIKKI LIVER #### [facility] [address] [place] [address] Dr. Agueda Wiley Platelet Neutralization 0.0 sec Normal [facility] Comment on above: Result Comment: Refe rence Range: 0.0 - 3.0 This test was developed and its performance characteristics determined by [employer]. It has not been cleared or approved by the Food and Drug Administration. Performed By: #### C MIKKI, LIVER #### [facility] [address] [place] [address] Dr. Agueda Wiley PT Coag (PPP) [Time] 10.6 s Normal [facility] Comment on above: Result Comment: Refe rence Range: 18 years and older: 9.1 - 12.0 Performed By: #### C MIKKI LIVER #### [facility] [address] [place] [address] Dr. Agueda Wiley Thrombin Time 17.2 sec Normal [facility] Comment on above: Result Comment: Refe rence Range: 0.0 - 23.0 Performed By: #### C MIKKI, LIVER #### [facility] [address] [address] [address] Agueda Wiley VAL by IFAon 09-03-2022 Antinuclear Antibodies, IFA Positive Abnormal [facility] Comment on above: Result Comment: Nega tive <1:80 Borderline 1:80 Positive >1:80 Performed By: #### A NAIFA #### [facility] [address] [address] [address] Agueda Wiley Centriole Pattern Normal [facility] Comment on above: Performed By: #### A NAIFA #### [facility] [address] [address] [address] Agudea Wiley Centromere Pattern Normal [facility] Comment on above: Performed By: #### A NAIFA #### [facility] [address] [address] [address] Agueda Wiley Homogeneous Pattern 1:320 Critically high [facility] Comment on above: Result Comment: ICAP nomenclature: AC-1 Performed By: #### A NAIFA #### [facility] [address] [address] [address] Agueda Wiley Midbody Pattern Normal [facility] Comment on above: Performed By: #### A NAIFA #### [facility] [address] [place] [address] Dr. Agueda Wiley Note: Comment Normal [facility] Comment on above: Result Comment: [...] titers Nucleosomes, Histones Drug-induced SLE Speckled Sm, MANUFACTURING ENGINEER AUTOMOTIVE, SCL-70, SLE,MCTD,PSS (diffuse form), SS-A/SS-B Sjogrens Nucleolar SCL-70, PM-1/SCL High titers Scleroderma, PM/DM Centromere Centromere PSS (limited form) w/Crest syndrome variable Nuclear Dot Sp100,[id number] Primary Biliary Cirrhosis Nuclear GP210, Primary Biliary Cirrhosis Membrane hank A,B,C Performed By: #### A DUANE #### [facility] [address] [address] [address] Agueda Wiley Nuclear Dot Pattern Normal [facility] Comment on above: Performed By: #### A NAIFA #### [facility] [address] [address] [address] Agueda Wiley Nuclear Membrane Pattern Normal [facility] Comment on above: Performed By: #### A NAIFA #### [facility] [address] [address] [address] Agueda Wiley Nucleolar Pattern Normal [facility] Comment on above: Performed By: #### A NAIFA #### [facility] [address] [address] [address] Agueda Wiley PCNA Pattern Normal [facility] Comment on above: Performed By: #### A NAIFA #### [facility] [address] [place] [address] Dr. Agueda Wiley Speckled Pattern Normal The [facility] Comment on above: Performed By: #### A NAIFA #### [facility] [address] [address] [address] Agueda Wiley Spindle Apparatus Pattern Normal [facility] Comment on above: Performed By: #### A NAIFA #### [facility] [address] [address] [address] Agueda Wiley ANTI-DNA DS ABon 09-01-2022 Anti-DNA (DS) Ab Qn 1 IU/mL Normal 0-9 [facility] Comment on above: Result Comment: Nega tive <5 Equivocal 5 - 9 Positive >9 Performed By: #### C MIKKI LIVER #### [facility] [address] [address] [address] Agueda Wiley ANTICHROMATIN ANTIBODIESon 1 11-02-2021 Antichromatin Antibodies <0.2 Normal 0.0-0.9 [facility] Comment on above: Performed By: #### C MIKKI LIVER #### [facility] [address] [address] [address] Agueda Wiley C3 and C4 COMPLEMENTon 09-01 Complement C3, Serum 79 mg/dL Critically low 82-167 [facility] Comment on above: Performed By: #### C MIKKI LIVER #### [facility] [address] [address] [address] Agueda Wiley Complement C4, Serum 18 mg/dL Normal 12-38 [facility] Comment on above: Performed By: #### C MIKKI LIVER #### [facility] [address] [address] [address] Agueda Wiley COMPLEMENT TOTAL (CH50)on Complement, Total (CH50) >60 Normal >41 [facility] Comment on above: Result Comment: [...] values. Performed By: #### C SUITE #### [facility] [address] [place] [address] Dr. Agueda Wiley [employer]URING ENGINE[employer] ANTIBODIESon 09-01-2022 MANUFACTURING ENGINEER [employer]OMOTIVE Antibodies 0.2 AI Normal 0.0-0.9 [facility] Comment on above: Performed By: #### R NPAB #### [facility] [address] [place] [address] Dr. Agueda Wiley SJOGRENS ANTIBODIES (Anti SS A/B)on 09-01-2022 Sjogren's Anti-SS-A <0.2 Normal 0.0-0.9 [facility] Comment on above: Performed By: #### C SUITE #### [facility] [address] [address] [address] Agueda Wiley Sjogren's Anti-SS-B <0.2 Normal 0.0-0.9 [facility] Comment on above: Performed By: #### C SUITE #### [facility] [address] [place] [address] Dr. Agueda Wiley RAMOS ANTIBODIESon Ramos Antibodies 1.0 AI Critically high 0.0-0.9 [facility] Comment on above: Performed By: #### R NPAB #### [facility] [address] [place] [address] Dr. Agueda Wiley CBC AUTO DIFFon 08-31-2022 BASO # 0.1 103/ul Normal 0.0-0.1 [facility] Comment on above: Performed By: #### R NPAB #### [facility] [address] [place] [address] Dr. Agueda Wiley Basophils/100 WBC (Bld) 0.7 % Normal 0.2-2.0 [facility] Comment on above: Performed By: #### R NPAB #### [facility] [address] [place] [address] Dr. Agueda Wiley EO # 0.4 103/ul Normal 0.0-0.7 [facility] Comment on above: Performed By: #### R NPAB #### [facility] [address] [place] [address] Dr. Agueda Wiley Eosinophils/100 WBC (Bld) 6.1 % Normal 0.9-7.0 [facility] Comment on above: Performed By: #### R NPAB #### [facility] [address] [place] [address] Dr. Agueda Wiley Erythrocyte distribution width (RBC) [Ratio] 13.6 % Normal 11.0-15.0 [facility] Comment on above: Performed By: #### R NPAB #### [facility] [address] [place] [address] Dr. Agueda Wiley Hematocrit (Bld) [Volume fraction] 40.4 % Normal 36.0-48.0 [facility] Comment on above: Performed By: #### R NPAB #### [facility] [address] [place] [address] Dr. Agueda Wiley Hemoglobin (Bld) [Mass/Vol] 12.9 g/dL Normal 12.0-16.0 [facility] Comment on above: Performed By: #### R NPAB #### [facility] [address] [place] [address] Dr. Agueda Wiley IG # 0.04 10e3/ul Critically high 0.00-0.03 [facility] Comment on above: Performed By: #### R NPAB #### [facility] [address] [place] [address] Dr. Agueda Wiley IG % 0.6 % Critically high 0.0-0.5 [facility] Comment on above: Performed By: #### R NPAB #### [facility] [address] [place] [address] Dr. Agueda Wiley LYMPH # 1.4 103/ul Normal 1.2-3.8 [facility] Comment on above: Performed By: #### R NPAB #### [facility] [address] [place] [address] Dr. Agueda Wiley Lymphocytes/100 WBC (Bld) 20.6 % Normal 20.5-60.0 [facility] Comment on above: Performed By: #### R NPAB #### [facility] [address] [place] [address] Dr. Agueda Wiley MANUAL DIFF REQ NO Normal [facility] Comment on above: Performed By: #### R NPAB #### [facility] [address] [place] [address] Dr. Agueda Wiley MCH (RBC) [Entitic mass] 29.0 pg Normal 26.7-34.0 [facility] Comment on above: Performed By: #### R NPAB #### [facility] [address] [place] [address] Dr. Agueda Wiley MCHC (RBC) [Mass/Vol] 31.9 g/dL Normal 29.9-35.2 [facility] Comment on above: Performed By: #### R NPAB #### [facility] [address] [place] [address] Dr. Agueda Wiley MCV (RBC) [Entitic vol] 90.8 fL Normal 81.0-99.0 [facility] Comment on above: Performed By: #### R NPAB #### [facility] [address] [place], [place] [id number] Dr. Agueda Wiley MONO # 0.8 103/ul Normal 0.3-0.8 [facility] Comment on above: Performed By: #### R NPAB #### [facility] [address] [place] [address] Dr. Agueda Wiley Monocytes/100 WBC (Bld) 10.9 % Normal 1.7-12.0 [facility] Comment on above: Performed By: #### R NPAB #### [facility] [address] [place] [address] Dr. Agueda Wiley NEUT # 4.2 103/ul Normal 1.4-6.5 [facility] Comment on above: Performed By: #### R NPAB #### [facility] [address] [place] [address] Dr. Agueda Wiley Neutrophils/100 WBC (Bld) 61.1 % Normal 43.0-75.0 [facility] Comment on above: Performed By: #### R NPAB #### [facility] [address] [place] [address] Dr. Agueda Wiley Platelet mean volume (Bld) [Entitic vol] 10.9 fL Normal 9.5-13.5 [facility] Comment on above: Performed By: #### R NPAB #### [facility] [address] [place] [address] Dr. Agueda Wiley PLT 324 103/ul Normal 150-450 [facility] Comment on above: Performed By: #### R NPAB #### [facility] [address] [place] [address] Dr. Agueda Wiley RBC 4.45 106/ul Normal 4.20-5.40 [facility] Comment on above: Performed By: #### R NPAB #### [facility] [address] [place] [address] Dr. Agueda Wiley WBC 6.9 103/ul Normal 4.0-11.0 [facility] Comment on above: Performed By: #### R NPAB #### [facility] [address] [place] [address] Dr. Agueda Wiley CREATININEon 08-31-2022 Creatinine [Mass/Vol] 1.00 mg/dL Normal 0.55-1.02 [facility] Comment on above: Performed By: #### A NAMILO #### [facility] [address] [address] [address] Agueda Wiley EGFR-AF TANZANIAN >60 Normal >=60 The [facility] Comment on above: Performed By: #### A NAIFTania #### [facility] [address] [address] [address] Agueda Wiley EGFR-NON AF TANZANIAN 55 mL/min/1.73m2 Critically low >=60 [facility] Comment on above: Performed By: #### A NAIFTania #### [facility] [address] [place] [address] Dr. Agueda Wiley CRPon 08-31-2022 CRP 0.8 mg/dL Normal <=1.0 [facility] Comment on above: Performed By: #### Gila KAYE, LIVER #### [facility] [address] [place] [address] Dr. Agueda Wiley [facility] 85 mm/hr Critically high <=30 [facility] Comment on above: Performed By: #### Gila KAYE LIVER #### [facility] [address] [place] [address] Dr. Agueda Wiley STOOL CULTUREon 08-18-2022 Campylobacter Culture Final report Normal [facility] Comment on above: Performed By: #### Gila KAYE, LIVER #### [facility] [address] [place] [address] Dr. Agueda Wiley E coli Shiga Toxin EIA Negative Normal Negative [facility] Comment on above: Performed By: #### Gila KAYE, LIVER #### [facility] [address] [place] [address] Dr. Agueda Wiley Result 1 Comment Normal [facility] Comment on above: Result Comment: No S almonella or Shigella recovered. Performed By: #### Gila KAYE, LIVER #### [facility] [address] [place] [address] Dr. Agueda Wiley Result Comment: No C ampylobacter species isolated. Salmonella/Shigella Screen Final report Normal [facility] Comment on above: Performed By: #### C MIKKI, LIVER #### [facility] [address] [address] [address] Agueda Wiley C. DIFF PCRon 08-14-2022 C. DIFFICILE PCR Positive Critically abnormal NEGATIVE [facility] Comment on above: Performed By: #### R NPAB #### [facility] [address] [address] [address] Agueda Wiley IMMUNOFIXATION(ERIN),PROTEIN ELEC(PE),FREon 08-14-2022 Albumin [Mass/Vol] 3.8 g/dL Normal 2.9-4.4 [facility] Comment on above: Performed By: #### A NAIFA #### [facility] [address] [address] [address] Agueda Wiley Albumin/Globulin [Mass ratio] 1.3 {ratio} Normal 0.7-1.7 [facility] Comment on above: Performed By: #### A NAIFA #### [facility] [address] [address] [address] Agueda Wiley Mdwmw-5-Qhtelbju 0.3 g/dL Normal 0.0-0.4 [facility] Comment on above: Performed By: #### A NAIFA #### [facility] [address] [address] [address] Agueda Wiley Lwsge-6-Jtyacynz 0.9 g/dL Normal 0.4-1.0 [facility] Comment on above: Performed By: #### A NAIFA #### [facility] [address] [address] [address] Agueda Wiley Beta Globulin 1.0 g/dL Normal 0.7-1.3 [facility] Comment on above: Performed By: #### A NAIFA #### [facility] [address] [address] [address] Agueda Wiley Free Marengo Lt Chains,S 28.5 mg/L Critically high 3.3-19.4 [facility] Comment on above: Performed By: #### A NAIFA #### [facility] [address] [address] [address] Agueda Wiley Free Lambda Lt Chains,S 16.7 mg/L Normal 5.7-26.3 [facility] Comment on above: Performed By: #### A NAIFA #### [facility] [address] [place] [address] Dr. Agueda Wiley Gamma Globulin 0.8 g/dL Normal 0.4-1.8 [facility] Comment on above: Performed By: #### A NAIFA #### [facility] [address] [place] [address] Dr. Agueda Wiley Globulin (S) [Mass/Vol] 3.0 g/dL Normal 2.2-3.9 [facility] Comment on above: Performed By: #### A NAIFA #### [facility] [address] [place] [address] Dr. Agueda Wiley Immunofixation Result, Serum Comment Normal [facility] Comment on above: Result Comment: No m onoclonality detected. Performed By: #### A NAIFA #### [facility] [address] [place] [address] Dr. Agueda Wiley Immunoglobulin A, Qn, Serum 179 mg/dL Normal 87-352 [facility] Comment on above: Performed By: #### A NAIFA #### [facility] [address] [place] [address] Dr. Agueda Wiley Immunoglobulin G, Qn, Serum 902 mg/dL Normal 586-1602 [facility] Comment on above: Performed By: #### A NAIFA #### [facility] [address] [place] [address] Dr. Agueda Wiley Immunoglobulin M, Qn, Serum 81 mg/dL Normal 26-217 [facility] Comment on above: Performed By: #### A NAIFA #### [facility] [address] [place] [address] Dr. Agueda Wiley Marengo/Lambda Ratio, S 1.71 Critically high 0.26-1.65 [facility] Comment on above: Performed By: #### A NAIFA #### [facility] [address] [place] [address] Dr. Agueda Wiley M-Richard Not Observed Normal Not Observed [facility] Comment on above: Performed By: #### A NAIFA #### [facility] [address] [place] [address] Dr. Agueda Wiley PDF . Normal [facility] Comment on above: Performed By: #### A NAIFA #### [facility] [address] [place] [address] Dr. Agueda Wiley Please note: Comment Normal [facility] Comment on above: Result Comment: Prot ein electrophoresis scan will follow via computer, mail, or belt line feeder delivery. Performed By: #### A NAIFA #### [facility] [address] [place] [address] Dr. Agueda Wiley Protein [Mass/Vol] 6.8 g/dL Normal 6.0-8.5 [facility] Comment on above: Performed By: #### A NAIFA #### [facility] [address] [place] [address] Dr. Agueda Wiley IMMUNOGLOBULINS IGA/IGM/IGG QUANTITATIVEon 08-14-2022 Immunoglobulin A, Qn, Serum 182 mg/dL Normal 87-352 [facility] Comment on above: Performed By: #### C MIKKI, LIVER #### [facility] [address] [place] [address] Dr. Agueda Wiley Immunoglobulin G, Qn, Serum 923 mg/dL Normal 586-1602 [facility] Comment on above: Performed By: #### C MIKKI, LIVER #### [facility] [address] [place] [address] Dr. Agueda Wiley Immunoglobulin M, Qn, Serum 82 mg/dL Normal 26-217 [facility] Comment on above: Performed By: #### C MIKKI, LIVER #### [facility] [address] [place] [address] Dr. Agueda Wiley CBC AUTO DIFFon 08-13-2022 BASO # 0.0 103/ul Normal 0.0-0.1 [facility] Comment on above: Performed By: #### R NPAB #### [facility] [address] [place] [address] Dr. Agueda Wiley Basophils/100 WBC (Bld) 0.4 % Normal 0.2-2.0 [facility] Comment on above: Performed By: #### R NPAB #### [facility] [address] [place] [address] Dr. Agueda Wiley EO # 0.2 103/ul Normal 0.0-0.7 [facility] Comment on above: Performed By: #### R NPAB #### [facility] [address] [place] [address] Dr. Agueda Wiley Eosinophils/100 WBC (Bld) 1.9 % Normal 0.9-7.0 [facility] Comment on above: Performed By: #### R NPAB #### [facility] [address] [place] [address] Dr. Agueda Wiley Erythrocyte distribution width (RBC) [Ratio] 13.8 % Normal 11.0-15.0 [facility] [facility] Comment on above: Performed By: #### R NPAB #### [facility] [address] [place] [address] Dr. Agueda Wiley Hematocrit (Bld) [Volume fraction] 41.4 % Normal 36.0-48.0 [facility] Comment on above: Performed By: #### R NPAB #### [facility] [address] [place] [address] Dr. Agueda Wiley Hemoglobin (Bld) [Mass/Vol] 13.5 g/dL Normal 12.0-16.0 [facility] Comment on above: Performed By: #### R NPAB #### [facility] [address] [place] [address] Dr. Agueda Wiley IG # 0.02 10e3/ul Normal 0.00-0.03 [facility] Comment on above: Performed By: #### R NPAB #### [facility] [address] [place] [address] Dr. Agueda Wiley IG % 0.2 % Normal 0.0-0.5 [facility] Comment on above: Performed By: #### R NPAB #### [facility] [address] [place] [address] Dr. Agueda Wiley LYMPH # 2.0 103/ul Normal 1.2-3.8 [facility] Comment on above: Performed By: #### R NPAB #### [facility] [address] [place] [address] Dr. Agueda Wiely Lymphocytes/100 WBC (Bld) 20.5 % Normal 20.5-60.0 [facility] Comment on above: Performed By: #### R NPAB #### [facility] [address] [place] [address] Dr. Agueda Wiley MANUAL DIFF REQ NO Normal [facility] Comment on above: Performed By: #### R NPAB #### [facility] [address] [place] [address] Dr. gAueda Wiley MCH (RBC) [Entitic mass] 29.1 pg Normal 26.7-34.0 [facility] Comment on above: Performed By: #### R NPAB #### [facility] [address] [place] [address] Dr. Agueda Wiley MCHC (RBC) [Mass/Vol] 32.6 g/dL Normal 29.9-35.2 [facility] Comment on above: Performed By: #### R NPAB #### [facility] [address] [place] [address] Dr. Agueda Wiley MCV (RBC) [Entitic vol] 89.2 fL Normal 81.0-99.0 [facility] Comment on above: Performed By: #### R NPAB #### [facility] [address] [place] [address] Dr. Agueda Wiley MONO # 0.8 103/ul Normal 0.3-0.8 [facility] Comment on above: Performed By: #### R NPAB #### [facility] [address] [place] [address] Dr. Agueda Wiley Monocytes/100 WBC (Bld) 8.6 % Normal 1.7-12.0 [facility] Comment on above: Performed By: #### R NPAB #### [facility] [address] [place] [address] Dr. Agueda Wiley NEUT # 6.6 103/ul Critically high 1.4-6.5 [facility] Comment on above: Performed By: #### R NPAB #### [facility] [address] [place] [address] Dr. Agueda Wiley Neutrophils/100 WBC (Bld) 68.4 % Normal 43.0-75.0 [facility] Comment on above: Performed By: #### R NPAB #### [facility] [address] [place] [address] Dr. Agueda Wiley Platelet mean volume (Bld) [Entitic vol] 10.0 fL Normal 9.5-13.5 [facility] Comment on above: Performed By: #### R NPAB #### [facility] [address] [place] [address] Dr. Agueda Wiley PLT 379 103/ul Normal 150-450 [facility] Comment on above: Performed By: #### R NPAB #### [facility] [address] [place] [address] Dr. Agueda Wiley RBC 4.64 106/ul Normal 4.20-5.40 [facility] Comment on above: Performed By: #### R NPAB #### [facility] [address] [place] [address] Dr. Agueda Wiley WBC 9.7 103/ul Normal 4.0-11.0 [facility] Comment on above: Performed By: #### R NPAB #### [facility] [address] [place] [address] Dr. Agueda Wiley CRPon 08-13-2022 CRP 0.2 mg/dL Normal <=1.0 [facility] Comment on above: Performed By: #### A NAIFA #### [facility] [address] [place] [address] Dr. Agueda Wiley PROF 14(COMP METB)on 022 Albumin [Mass/Vol] 3.4 g/dL Normal 3.4-5.0 [facility] Comment on above: Performed By: #### A NAJOSEA #### [facility] [address] [place] [address] Dr. Agueda Wiley Albumin/Globulin [Mass ratio] 0.8 {ratio} Normal [facility] Comment on above: Performed By: #### A NAIFA #### [facility] [address] [address] [address] Agueda Wiley ALP [Catalytic activity/Vol] 94 U/L Normal 46-116 [facility] Comment on above: Performed By: #### A NAIFA #### [facility] [address] [place] [address] Dr. Agueda Wiley ALT [Catalytic activity/Vol] 16 U/L Normal 14-59 [facility] Comment on above: Performed By: #### A NAIFA #### [facility] [address] [address] [address] Agueda Wiley Anion gap [Moles/Vol] 13.0 mmol/L Normal [facility] Comment on above: Performed By: #### A NAIFA #### [facility] [address] [place] [address] Dr. Agueda Wiley AST [Catalytic activity/Vol] 13 U/L Critically low 15-37 [facility] Comment on above: Performed By: #### A NAIFA #### [facility] [address] [address] [address] Agueda Wiley Bilirubin [Mass/Vol] 0.3 mg/dL Normal 0.2-1.0 [facility] Comment on above: Performed By: #### A NAIFA #### [facility] [address] [place] [address] Dr. Agueda Wiley Calcium [Mass/Vol] 9.1 mg/dL Normal 8.5-10.1 [facility] Comment on above: Performed By: #### A NAIFA #### [facility] [address] [place] [address] Dr. Agueda Wiley Chloride [Moles/Vol] 103 mmol/L Normal 98-107 [facility] Comment on above: Performed By: #### A NAIFA #### [facility] [address] [place] [address] Dr. Agueda Wiley CO2 [Moles/Vol] 25.8 mmol/L Normal 21.0-32.0 [facility] Comment on above: Performed By: #### A NAIFA #### [facility] [address] [address] [address] Agueda Wiley Creatinine [Mass/Vol] 0.94 mg/dL Normal 0.55-1.02 [facility] Comment on above: Performed By: #### A NAIFA #### [facility] [address] [place] [address] Dr. Agueda Wiley EGFR-AF TANZANIAN >60 Normal >=60 [facility] Comment on above: Performed By: #### A NAIFA #### [facility] [address] [place] [address] Dr. Agueda Wiley EGFR-NON AF TANZANIAN 59 mL/min/1.73m2 Critically low >=60 [facility] Comment on above: Performed By: #### A NAIFA #### [facility] [address] [place] [address] Dr. Agueda Wiley Globulin (S) [Mass/Vol] 4.1 g/dL Normal [facility] Comment on above: Performed By: #### A NAIFA #### [facility] [address] [place] [address] Dr. Agueda Wiley Glucose [Mass/Vol] 110 mg/dL Critically high 74-106 [facility] Comment on above: Performed By: #### A NAIFA #### [facility] [address] [place] [address] Dr. Agueda Wiley Potassium [Moles/Vol] 3.8 mmol/L Normal 3.5-5.1 [facility] Comment on above: Performed By: #### A NAIFA #### [facility] [address] [place] [address] Dr. Agueda Wiley Sodium [Moles/Vol] 138 mmol/L Normal 136-145 [facility] Comment on above: Performed By: #### A NAIFA #### [facility] [address] [place] [address] Dr. Agueda Wiley Urea nitrogen [Mass/Vol] 20.0 mg/dL Critically high 7.0-18.0 [facility] Comment on above: Performed By: #### A NAIFA #### [facility] [address] [place] [address] Dr. Agueda Wiley Urea nitrogen/Creatinine [Mass ratio] 21.3 mg/mg Normal [facility] Comment on above: Performed By: #### A NAIFA #### [facility] [address] [place] [address] Dr. Agueda Wiley SED RATE WESTERGRENon 2021 SED RATE 82 mm/hr Critically high <=30 [facility] Comment on above: Performed By: #### R NPAB #### [facility] [address] [place] [address] Dr. Agueda Wiley TOTAL PROTEIN SERUMon 2021 Protein [Mass/Vol] 7.5 g/dL Normal 6.4-8.2 [facility] Comment on above: Performed By: #### A NAIFA #### [facility] [address] [place] [address] Dr. Agueda Wiley XR CHEST 2 Von [...] TENZIN GENTILE Date: 2022-08-13 18:41 Normal [facility] CBC AUTO DIFFon 08-04-2022 BASO # 0.1 103/ul Normal 0.0-0.1 [facility] Comment on above: Performed By: #### A NAIFA #### [facility] [address] [place] [address] Dr. Agueda Wiley Basophils/100 WBC (Bld) 0.5 % Normal 0.2-2.0 [facility] Comment on above: Performed By: #### A NAIFA #### [facility] [address] [place] [address] Dr. Agueda Wiley EO # 0.1 103/ul Normal 0.0-0.7 [facility] Comment on above: Performed By: #### A NAIFA #### [facility] [address] [place] [address] Dr. Agueda Wiley Eosinophils/100 WBC (Bld) 0.7 % Critically low 0.9-7.0 [facility] Comment on above: Performed By: #### A NAIFA #### [facility] [address] [place] [address] Dr. Agueda Wiley Erythrocyte distribution width (RBC) [Ratio] 14.3 % Normal 11.0-15.0 [facility] Comment on above: Performed By: #### A NAIFA #### [facility] [address] [place] [address] Dr. Agueda Wiley Hematocrit (Bld) [Volume fraction] 37.3 % Normal 36.0-48.0 [facility] Comment on above: Performed By: #### A NAIFA #### [facility] [address] [place] [address] Dr. Agueda Wiley Hemoglobin (Bld) [Mass/Vol] 12.1 g/dL Normal 12.0-16.0 [facility] Comment on above: Performed By: #### A NAIFA #### [facility] [address] [place] [address] Dr. gAueda Wiley IG # 0.03 10e3/ul Normal 0.00-0.03 [facility] Comment on above: Performed By: #### A NAIFA #### [facility] [address] [place] [address] Dr. Agueda Wiley IG % 0.3 % Normal 0.0-0.5 [facility] Comment on above: Performed By: #### A NAIFA #### [facility] [address] [place] [address] Dr. Agueda Wiley LYMPH # 1.5 103/ul Normal 1.2-3.8 [facility] Comment on above: Performed By: #### A NAIFA #### [facility] [address] [place] [address] Dr. Agueda Wiley Lymphocytes/100 WBC (Bld) 15.8 % Critically low 20.5-60.0 [facility] Comment on above: Performed By: #### A NAIFA #### [facility] [address] [place] [address] Dr. Agueda Wiley MANUAL DIFF REQ NO Normal [facility] Comment on above: Performed By: #### A NAIFA #### [facility] [address] [place] [address] Dr. Agueda Wiley MCH (RBC) [Entitic mass] 29.6 pg Normal 26.7-34.0 [facility] Comment on above: Performed By: #### A NAIFA #### [facility] [address] [place] [address] Dr. Agueda Wiely MCHC (RBC) [Mass/Vol] 32.4 g/dL Normal 29.9-35.2 [facility] Comment on above: Performed By: #### A NAIFA #### [facility] [address] [place] [address] Dr. Agueda Wiley MCV (RBC) [Entitic vol] 91.2 fL Normal 81.0-99.0 [facility] Comment on above: Performed By: #### A NAIFA #### [facility] [address] [place] [address] Dr. Agueda Wiley MONO # 0.6 103/ul Normal 0.3-0.8 [facility] Comment on above: Performed By: #### A NAIFA #### [facility] [address] [place] [address] Dr. Agueda Wiley Monocytes/100 WBC (Bld) 6.2 % Normal 1.7-12.0 [facility] Comment on above: Performed By: #### A NAIFA #### [facility] [address] [place] [address] Dr. Agueda Wiley NEUT # 7.2 103/ul Critically high 1.4-6.5 [facility] Comment on above: Performed By: #### A NAIFA #### [facility] [address] [place] [address] Dr. Agueda Wiley Neutrophils/100 WBC (Bld) 76.5 % Critically high 43.0-75.0 [facility] Comment on above: Performed By: #### A NAIFA #### [facility] [address] [place] [address] Dr. Agueda Wiley Platelet mean volume (Bld) [Entitic vol] 11.0 fL Normal 9.5-13.5 [facility] Comment on above: Performed By: #### A NAIFA #### [facility] [address] [place] [address] Dr. Agueda Wiley PLT 298 103/ul Normal 150-450 [facility] Comment on above: Performed By: #### A NAIFA #### [facility] [address] [place] [address] Dr. Agueda Wiley RBC 4.09 106/ul Critically low 4.20-5.40 [facility] Comment on above: Performed By: #### A NAIFA #### [facility] [address] [place] [address] Dr. Agueda Wiley WBC 9.5 103/ul Normal 4.0-11.0 [facility] Comment on above: Performed By: #### A NAIFA #### [facility] [address] [place] [address] Dr. Agueda Wiley CREATININEon 08-04-2022 Creatinine [Mass/Vol] 0.93 mg/dL Normal 0.55-1.02 [facility] Comment on above: Performed By: #### C MIKKI, LIVER #### [facility] [address] [place] [address] Dr. Agueda Wiley EGFR-AF TANZANIAN >60 Normal >=60 [facility] Comment on above: Performed By: #### C MIKKI, LIVER #### [facility] [address] [place] [address] Dr. Agueda Wiley EGFR-NON AF TANZANIAN =60 Normal >=60 [facility] Comment on above: Performed By: #### C MIKKI, LIVER #### [facility] [address] [address] [address] Agueda Wiley LIVER PROFILEon 08-04-2022 Albumin [Mass/Vol] 3.0 g/dL Critically low 3.4-5.0 [facility] Comment on above: Performed By: #### C MIKKI, LIVER #### [facility] [address] [place] [address] Dr. Agueda Wiley Albumin/Globulin [Mass ratio] 0.7 {ratio} Normal [facility] Comment on above: Performed By: #### C MIKKI, LIVER #### [facility] [address] [place] [address] Dr. Agueda Wiley ALP [Catalytic activity/Vol] 94 U/L Normal 46-116 [facility] Comment on above: Performed By: #### C MIKKI, LIVER #### [facility] [address] [place] [address] Dr. Agueda Wiley ALT [Catalytic activity/Vol] 20 U/L Normal 14-59 [facility] Comment on above: Performed By: #### C MIKKI, LIVER #### [facility] [address] [place] [address] Dr. Agueda Wiley AST [Catalytic activity/Vol] 15 U/L Normal 15-37 [facility] Comment on above: Performed By: #### C MIKKI, LIVER #### [facility] [address] [place] [address] Dr. Agueda Wiley BILI, CONJUGATED 0.1 mg/dL Normal 0.0-0.2 [facility] Comment on above: Performed By: #### C MIKKI, LIVER #### [facility] [address] [place] [address] Dr. Agueda Wiley Bilirubin [Mass/Vol] 0.4 mg/dL Normal 0.2-1.0 [facility] Comment on above: Performed By: #### C MIKKI, LIVER #### [facility] [address] [place] [address] Dr. Agueda Wiley Globulin (S) [Mass/Vol] 4.3 g/dL Normal [facility] Comment on above: Performed By: #### C MIKKI, LIVER #### [facility] [address] [place] [address] Dr. Agueda Wiley Protein [Mass/Vol] 7.3 g/dL Normal 6.4-8.2 [facility] Comment on above: Performed By: #### C MIKKI, LIVER #### [facility] [address] [place] [address] Dr. Agued[facility] Wiley [facility] 105 mm/hr Critically high <=30 [facility] Comment on above: Performed By: #### R NPAB #### [facility] [address] [place] [address] Dr. Agueda Wiley CBC AUTO DIFFon 06-09-2022 BASO # 0.1 103/ul Normal 0.0-0.1 [facility] Comment on above: Performed By: #### A NAIFA #### [facility] [address] [place] [address] Dr. Agueda Wiley Basophils/100 WBC (Bld) 0.7 % Normal 0.2-2.0 [facility] Comment on above: Performed By: #### A NAIFA #### [facility] [address] [place] [address] Dr. Agueda Wiley EO # 0.4 103/ul Normal 0.0-0.7 [facility] Comment on above: Performed By: #### A NAIFA #### [facility] [address] [place] [address] Dr. Agueda Wiley Eosinophils/100 WBC (Bld) 3.6 % Normal 0.9-7.0 [facility] Comment on above: Performed By: #### A NAIFA #### [facility] [address] [place] [address] Dr. Agueda Wiley Erythrocyte distribution width (RBC) [Ratio] 13.6 % Normal 11.0-15.0 [facility] Comment on above: Performed By: #### A NAIFA #### [facility] [address] [place] [address] Dr. Agueda Wiley Hematocrit (Bld) [Volume fraction] 38.5 % Normal 36.0-48.0 [facility] Comment on above: Performed By: #### A NAIFA #### [facility] [address] [place] [address] Dr. Agueda Wiley Hemoglobin (Bld) [Mass/Vol] 12.4 g/dL Normal 12.0-16.0 [facility] Comment on above: Performed By: #### A NAIFA #### [facility] [address] [place] [address] Dr. Agueda Wiley IG # 0.07 10e3/ul Critically high 0.00-0.03 [facility] Comment on above: Performed By: #### A NAIFA #### [facility] [address] [place] [address] Dr. Agueda Wiley IG % 0.6 % Critically high 0.0-0.5 [facility] Comment on above: Performed By: #### A NAIFA #### [facility] [address] [place] [address] Dr. Agueda Wiley LYMPH # 2.1 103/ul Normal 1.2-3.8 [facility] Comment on above: Performed By: #### A NAIFA #### [facility] [address] [place] [address] Dr. Agueda Wiley Lymphocytes/100 WBC (Bld) 17.7 % Critically low 20.5-60.0 [facility] Comment on above: Performed By: #### A NAIFA #### [facility] [address] [place] [address] Dr. Agueda Wiley MANUAL DIFF REQ NO Normal [facility] Comment on above: Performed By: #### A NAIFA #### [facility] [address] [place] [address] Dr. Agueda Wiley MCH (RBC) [Entitic mass] 29.4 pg Normal 26.7-34.0 [facility] Comment on above: Performed By: #### A NAIFA #### [facility] [address] [place] [address] Dr. Agueda Wiley MCHC (RBC) [Mass/Vol] 32.2 g/dL Normal 29.9-35.2 [facility] Comment on above: Performed By: #### A NAIFA #### [facility] [address] [place] [address] Dr. Agueda Wiley MCV (RBC) [Entitic vol] 91.2 fL Normal 81.0-99.0 [facility] Comment on above: Performed By: #### A NAIFA #### [facility] [address] [place] [address] Dr. Agueda Wiley MONO # 1.1 103/ul Critically high 0.3-0.8 [facility] Comment on above: Performed By: #### A NAIFA #### [facility] [address] [place] [address] Dr. Agueda Wiley Monocytes/100 WBC (Bld) 9.4 % Normal 1.7-12.0 [facility] Comment on above: Performed By: #### A NAIFA #### [facility] [address] [place] [address] Dr. Agueda Wiley NEUT # 8.0 103/ul Critically high 1.4-6.5 [facility] Comment on above: Performed By: #### A NAIFA #### [facility] [address] [place] [address] Dr. Agueda Wiley Neutrophils/100 WBC (Bld) 68.0 % Normal 43.0-75.0 [facility] Comment on above: Performed By: #### A NAIFA #### [facility] [address] [place] [address] Dr. Agueda Wiley Platelet mean volume (Bld) [Entitic vol] 10.7 fL Normal 9.5-13.5 [facility] Comment on above: Performed By: #### A DUANE #### [facility] [address] [place] [address] Dr. Agueda Wiley PLT 417 103/ul Normal 150-450 [facility] Comment on above: Performed By: #### A DUANE #### [facility] [address] [place] [address] Dr. Agueda Wiley RBC 4.22 106/ul Normal 4.20-5.40 [facility] Comment on above: Performed By: #### A DUANE #### [facility] [address] [place] [address] Dr. Agueda Wiley WBC 11.8 103/ul Critically high 4.0-11.0 [facility] Comment on above: Performed By: #### A DUANE #### [facility] [address] [place] [address] Dr. Agueda Wiley PROF CHEM 8 (BAS METB)on Anion gap [Moles/Vol] 15.3 mmol/L Normal [facility] Comment on above: Performed By: #### Gila KAYE LIVER #### [facility] [address] [place] [address] Dr. Agueda Wiley Calcium [Mass/Vol] 8.8 mg/dL Normal 8.5-10.1 [facility] Comment on above: Performed By: #### Gila KAYE, LIVER #### [facility] [address] [place] [address] Dr. Agueda Wiley Chloride [Moles/Vol] 106 mmol/L Normal 98-107 [facility] Comment on above: Performed By: #### C MIKKI, LIVER #### [facility] [address] [place] [address] Dr. Agueda Wiley CO2 [Moles/Vol] 23.7 mmol/L Normal 21.0-32.0 [facility] Comment on above: Performed By: #### Gila KAYE, LIVER #### [facility] [address] [address] [address] Agueda Wiley Creatinine [Mass/Vol] 1.10 mg/dL Critically high 0.55-1.02 [facility] Comment on above: Performed By: #### C MIKKI, LIVER #### [facility] [address] [address] [address] Agueda Wiley EGFR-AF TANZANIAN 60 mL/min/1.73m2 Normal >=60 [facility] Comment on above: Performed By: #### C MIKKI, LIVER #### [facility] [address] [place] [address] Dr. Agueda Wiley EGFR-NON AF TANZANIAN 50 mL/min/1.73m2 Critically low >=60 [facility] Comment on above: Performed By: #### C MIKKI, LIVER #### [facility] [address] [place] [address] Dr. Agueda Wiley Glucose [Mass/Vol] 126 mg/dL Critically high 74-106 [facility] Comment on above: Performed By: #### C MIKKI, LIVER #### [facility] [address] [place] [address] Dr. Agueda Wiley Potassium [Moles/Vol] 4.0 mmol/L Normal 3.5-5.1 [facility] Comment on above: Performed By: #### C MIKKI, LIVER #### [facility] [address] [place] [address] Dr. Agueda Wiley Sodium [Moles/Vol] 141 mmol/L Normal 136-145 [facility] Comment on above: Performed By: #### C MIKKI, LIVER #### [facility] [address] [place] [address] Dr. Agueda Wiley Urea nitrogen [Mass/Vol] 14.0 mg/dL Normal 7.0-18.0 [facility] Comment on above: Performed By: #### C MIKKI, LIVER #### [facility] [address] [place] [address] Dr. Agueda Wiley Urea nitrogen/Creatinine [Mass ratio] 12.7 mg/mg Normal [facility] Comment on above: Performed By: #### C MIKKI, LIVER #### [facility] [address] [address] [address] Agueda Wiley XR femur LT 2V*on 05-28-2022 XR femur LT 2V* [facility] [employer] Other XR femur LT 2V* [facility] [place] [facility] [employer] Other XR femur LT 2V* [address] [facility] No [facility] [employer] Other XR femur LT 2V* [place] [address] [facility] [employer] Other XR femur LT 2V* XRay Report [facility] [employer] Other XR femur LT 2V* Signed [facility] [employer] Other XR femur LT 2V* Patient: Reba Gregory MR#: [id number] [facility] [employer] Other XR femur LT 2V* : 1955 Acct:[id number] [employer] Other XR femur LT 2V* Age/Sex: 66 / F ADM Date: 05/28/22 [employer] Other XR femur LT 2V* Loc: SOXD Room: Type : [facility] [employer] Other XR femur LT 2V* Attending Dr: Nabor Nelson II, MD [employer] Other XR femur LT 2V* Copies to: Nabor Nelson MD [employer] Other XR femur LT 2V* Ordering Provider: aRgini Nelson MD [employer] Other XR femur LT 2V* Date of Service: 05/28/22 [employer] Other XR femur LT 2V* XR/XR femur LT 2V*: Aftercare following joint replacement surgery [employer] Other XR femur LT 2V* ([id number]) XR/XR tibia fibula LT 2V*: Aftercare following joint replacement surgery [employer] Other XR femur LT 2V* ([id number]) XR/XR knee LT 2V: Aftercare following joint replacement surgery [employer] Other XR femur LT 2V* XR tibia fibula LT 2 V*, XR knee LT 2V, XR femur LT 2V* 05/28/2022 8:18 AM [employer] Other XR femur LT 2V* SIGNS AND SYMPTOMS: Aftercare following joint replacement surgery [employer] Other XR femur LT 2V* PROTOCOL: Frontal radiographs of the left femur, left knee, and left tibia and fibula [employer] Other XR femur LT 2V* COMPARISON: 04/16/2022 [employer] Other XR femur LT 2V* FINDINGS: Perfect [facility] [employer] Other XR femur LT 2V* The bones are in val tomic alignment. There is total left knee arthroplasty hardware without [employer] Other XR femur LT 2V* hardware complicatio n or malalignment. No fracture or dislocation. The visualized bony ring of the [employer] Other XR femur LT 2V* pelvis is grossly intact. [employer] Other XR femur LT 2V* X R/XR tibia fibula LT 2V* [employer] Other XR femur LT 2V* IMPRESSION: Perfect [employer] Other XR femur LT 2V* Status post total le ft knee arthroplasty hardware placement without hardware complication or [employer] Other XR femur LT 2V* malalignment. [employer] Other XR femur LT 2V* Impression dictated by: Michael Benítez M.D.05/28/2022 11:51 AM [employer] Other XR femur LT 2V* Dictation Location: [id number]-07 [employer] Other XR femur LT 2V* Transcribed By: PWS 05/28/22 1151 [employer] Other XR femur LT 2V* Dictated By: Michael Benítez II, MD 05/28/22 1149 [employer] Other XR femur LT 2V* Signed By: Perfect [facility] [employer] Other XR femur LT 2V* 05/28/22 1152 [employer] Other CBC W MANUAL DIFFon 05-20-20 ATYPICAL LYMPH # Normal The [facility] Comment on above: Performed By: #### A NAIFA #### [facility] [address] [place] [address] Dr. Agueda Wiley ATYPICAL LYMPH % Normal The [facility] Comment on above: Performed By: #### A NAIFA #### [facility] [address] [place] [address] Dr. Agueda Wiley BAND # Normal 0.0-0.3 [facility] Comment on above: Performed By: #### A NAIFA #### [facility] [address] [place] [address] Dr. Agueda Wiley BAND % Normal 0-5 [facility] Comment on above: Performed By: #### A NAIFA #### [facility] [address] [place] [address] Dr. Agueda Wiley BASOM # 0.15 103/ul Critically high 0.00-0.10 The [facility] Comment on above: Performed By: #### A NAIFA #### [facility] [address] [place] [address] Dr. Agueda ORTEGAOM % 1.0 % Normal 0.2-2.0 [facility] Comment on above: Performed By: #### A NAIFA #### [facility] [address] [place] [address] Dr. Agueda Wiley BLAST # Normal [facility] Comment on above: Performed By: #### A NAIFA #### [facility] [address] [place] [address] Dr. Agueda Wiley BLAST % Normal [facility] Comment on above: Performed By: #### A NAIFA #### [facility] [address] [place] [address] Dr. Agueda Wiley CORRECTED WBC Normal 4.0-11.0 [facility] Comment on above: Performed By: #### A NAIFA #### [facility] [address] [place] [address] Dr. Agueda Wiley EOS # 0.00 103/ul Normal 0.00-0.70 [facility] Comment on above: Performed By: #### A NAIFA #### [facility] [address] [place] [address] Dr. Agueda Wiley EOS% 0.0 % Critically low 0.9-7.0 [facility] Comment on above: Performed By: #### A NAIFA #### [facility] [address] [place] [address] Dr. Agueda Wiley HCT 34.4 % Critically low 36.0-48.0 [facility] Comment on above: Performed By: #### A NAIFA #### [facility] [address] [place] [address] Dr. Agueda Wiley HGB 11.1 g/dl Critically low 12.0-16.0 [facility] Comment on above: Performed By: #### A NAIFA #### [facility] [address] [place] [address] Dr. Agueda Wiley LYMPHM # 2.31 103/ul Normal 1.20-3.80 [facility] Comment on above: Performed By: #### A NAIFA #### [facility] [address] [place] [address] Dr. Agueda Wiley LYMPHM% 15.0 % Critically low 20.5-60.0 [facility] Comment on above: Performed By: #### A NAIFA #### [facility] [address] [place] [address] Dr. Agueda Wiley MCH 29.1 pg Normal 26.7-34.0 [facility] Comment on above: Performed By: #### A NAIFA #### [facility] [address] [place] [address] Dr. Agueda Wiley MCHC 32.3 g/dl Normal 29.9-35.2 [facility] Comment on above: Performed By: #### A NAIFA #### [facility] [address] [place] [address] Dr. Agueda Wiley MCV 90.3 fL Normal 81.0-99.0 [facility] Comment on above: Performed By: #### A NAIFA #### [facility] [address] [place] [address] Dr. Agueda Wiley METAMYELOCYTE # Normal [facility] Comment on above: Performed By: #### A NAIFA #### [facility] [address] [place] [address] Dr. Agueda Wiley METAMYELOCYTE % Normal [facility] Comment on above: Performed By: #### A NAIFA #### [facility] [address] [place] [address] Dr. Agueda Wiley MONOM# 1.39 103/ul Critically high 0.30-0.80 [facility] Comment on above: Performed By: #### A NAIFA #### [facility] [address] [place] [address] Dr. Agueda Wiley MONOM% 9.0 % Normal 1.7-12.0 [facility] Comment on above: Performed By: #### A NAIFA #### [facility] [address] [place] [address] Dr. Agueda Wiley MPV 11.0 fL Normal 9.5-13.5 [facility] Comment on above: Performed By: #### A NAIFA #### [facility] [address] [place] [address] Dr. Agueda Wiley MYELOCYTE # Normal [facility] Comment on above: Performed By: #### A NAIFA #### [facility] [address] [address] [address] Agueda Wiley MYELOCYTE % Normal [facility] Comment on above: Performed By: #### A NAIFA #### [facility] [address] [address] [address] Agueda Wiley NRBC Normal [facility] Comment on above: Performed By: #### A NAIFA #### [facility] [address] [address] [address] Agueda Wiley PLT 333 103/ul Normal 150-450 [facility] Comment on above: Performed By: #### A NAIFA #### [facility] [address] [place] [address] Dr. Agueda Wiley RBC 3.81 106/ul Critically low 4.20-5.40 [facility] Comment on above: Performed By: #### A NAIFA #### [facility] [address] [place] [address] Dr. Agueda Wiley RDW 12.8 % Normal 11.0-15.0 [facility] Comment on above: Performed By: #### A NAIFA #### [facility] [address] [place] [address] Dr. Agueda Wiley SEG # 11.55 103/ul Critically high 1.40-6.50 [facility] Comment on above: Performed By: #### A NAIFA #### [facility] [address] [place] [address] Dr. Agueda Wiley SEG % 75.0 % Normal 43.0-75.0 [facility] Comment on above: Performed By: #### A NAIFA #### [facility] [address] [place] [address] Dr. Agueda Wiley WBC 15.4 103/ul Critically high 4.0-11.0 [facility] Comment on above: Performed By: #### A NAIFA #### [facility] [address] [place] [address] Dr. Agueda Wiley PROF 14(COMP METB)on 022 Albumin [Mass/Vol] 1.9 g/dL Critically low 3.4-5.0 [facility] Comment on above: Performed By: #### R NPAB #### [facility] [address] [place] [address] Dr. Agueda Wiley Albumin/Globulin [Mass ratio] 0.7 {ratio} Normal [facility] Comment on above: Performed By: #### R NPAB #### [facility] [address] [place] [address] Dr. Agueda Wiley ALP [Catalytic activity/Vol] 75 U/L Normal 46-116 [facility] Comment on above: Performed By: #### R NPAB #### [facility] [address] [place] [address] Dr. Agueda Wiley ALT [Catalytic activity/Vol] 18 U/L Normal 14-59 [facility] Comment on above: Performed By: #### R NPAB #### [facility] [address] [place] [address] Dr. Agueda Wiley Anion gap [Moles/Vol] 12.4 mmol/L Normal [facility] Comment on above: Performed By: #### R NPAB #### [facility] [address] [place] [address] Dr. Agueda Wiley AST [Catalytic activity/Vol] 20 U/L Normal 15-37 [facility] Comment on above: Performed By: #### R NPAB #### [facility] [address] [place] [address] Dr. Agueda Wiley Bilirubin [Mass/Vol] 0.2 mg/dL Normal 0.2-1.0 [facility] Comment on above: Performed By: #### R NPAB #### [facility] [address] [place] [address] Dr. Agueda Wiley Calcium [Mass/Vol] 7.7 mg/dL Critically low 8.5-10.1 [facility] Comment on above: Performed By: #### R NPAB #### [facility] [address] [place] [address] Dr. Agueda Wiley Chloride [Moles/Vol] 108 mmol/L Critically high 98-107 [facility] Comment on above: Performed By: #### R NPAB #### [facility] [address] [address] [address] Agueda Wiley CO2 [Moles/Vol] 21.9 mmol/L Normal 21.0-32.0 [facility] Comment on above: Performed By: #### R NPAB #### [facility] [address] [address] [address] Agueda Wiley Creatinine [Mass/Vol] 0.81 mg/dL Normal 0.55-1.02 [facility] Comment on above: Performed By: #### R NPAB #### [facility] [address] [place] [address] Dr. Agueda Wiley EGFR-AF TANZANIAN >60 Normal >=60 [facility] Comment on above: Performed By: #### R NPAB #### [facility] [address] [place] [address] Dr. Agueda Wiley EGFR-NON AF TANZANIAN >60 Normal >=60 [facility] Comment on above: Performed By: #### R NPAB #### [facility] [address] [address] [address] Agueda Wiley Globulin (S) [Mass/Vol] 2.6 g/dL Normal [facility] Comment on above: Performed By: #### R NPAB #### [facility] [address] [address] [address] Agueda Wiley Glucose [Mass/Vol] 102 mg/dL Normal 74-106 [facility] Comment on above: Performed By: #### R NPAB #### [facility] [address] [address] [address] Agueda Wiley Potassium [Moles/Vol] 3.3 mmol/L Critically low 3.5-5.1 [facility] Comment on above: Performed By: #### R NPAB #### [facility] [address] [place] [address] Dr. Agueda Wiley Protein [Mass/Vol] 4.5 g/dL Critically low 6.4-8.2 [facility] Comment on above: Performed By: #### R NPAB #### [facility] [address] [place] [address] Dr. Agueda Wiley Sodium [Moles/Vol] 139 mmol/L Normal 136-145 [facility] Comment on above: Performed By: #### R NPAB #### [facility] [address] [place] [address] Dr. Agueda Wiley Urea nitrogen [Mass/Vol] 7.0 mg/dL Normal 7.0-18.0 [facility] Comment on above: Performed By: #### R NPAB #### [facility] [address] [place] [address] Dr. Agueda Wiley Urea nitrogen/Creatinine [Mass ratio] 8.6 mg/mg Normal [facility] Comment on above: Performed By: #### R NPAB #### [facility] [address] [place] [address] Dr. Agueda Wiley CBC AUTO DIFFon 05-19-2022 BASO # 0.1 103/ul Normal 0.0-0.1 [facility] Comment on above: Performed By: #### C MIKKI, LIVER #### [facility] [address] [place] [address] Dr. Agueda Wiley Basophils/100 WBC (Bld) 0.4 % Normal 0.2-2.0 [facility] Comment on above: Performed By: #### C MIKKI, LIVER #### [facility] [address] [place] [address] Dr. Agueda Wiley EO # 0.3 103/ul Normal 0.0-0.7 [facility] Comment on above: Performed By: #### C MIKKI, LIVER #### [facility] [address] [place] [address] Dr. Agueda Wiley Eosinophils/100 WBC (Bld) 1.5 % Normal 0.9-7.0 [facility] Comment on above: Performed By: #### C MIKKI, LIVER #### [facility] [address] [place] [address] Dr. Agueda Wiley Erythrocyte distribution width (RBC) [Ratio] 12.5 % Normal 11.0-15.0 [facility] Comment on above: Performed By: #### C MIKKI, LIVER #### [facility] [address] [place] [address] Dr. Agueda Wiley Hematocrit (Bld) [Volume fraction] 37.3 % Normal 36.0-48.0 [facility] Comment on above: Performed By: #### C MIKKI, LIVER #### [facility] [address] [place] [address] Dr. Agueda Wiley Hemoglobin (Bld) [Mass/Vol] 12.0 g/dL Normal 12.0-16.0 [facility] Comment on above: Performed By: #### C MIKKI, LIVER #### [facility] [address] [place] [address] Dr. Agueda Wiley IG # 0.59 10e3/ul Critically high 0.00-0.03 [facility] Comment on above: Performed By: #### C MIKKI, LIVER #### [facility] [address] [place] [address] Dr. Agueda Wiley IG % 3.1 % Critically high 0.0-0.5 [facility] Comment on above: Performed By: #### C MIKKI, LIVER #### [facility] [address] [place] [address] Dr. Agueda Wiley LYMPH # 1.7 103/ul Normal 1.2-3.8 [facility] Comment on above: Performed By: #### C MIKKI, LIVER #### [facility] [address] [place] [address] Dr. Agueda Wiley Lymphocytes/100 WBC (Bld) 8.7 % Critically low 20.5-60.0 [facility] Comment on above: Performed By: #### C MIKKI, LIVER #### [facility] [address] [place] [address] Dr. Agueda Wiley MANUAL DIFF REQ NO Normal [facility] Comment on above: Performed By: #### C MIKKI, LIVER #### [facility] [address] [place] [address] Dr. Agueda Wiley MCH (RBC) [Entitic mass] 28.9 pg Normal 26.7-34.0 [facility] Comment on above: Performed By: #### C MIKKI, LIVER #### [facility] [address] [place] [address] Dr. Agueda Wiley MCHC (RBC) [Mass/Vol] 32.2 g/dL Normal 29.9-35.2 [facility] Comment on above: Performed By: #### C MIKKI, LIVER #### [facility] [address] [place] [address] Dr. Agueda Wiley MCV (RBC) [Entitic vol] 89.9 fL Normal 81.0-99.0 [facility] Comment on above: Performed By: #### C MIKKI, LIVER #### [facility] [address] [place] [address] Dr. Agueda Wiley MONO # 1.3 103/ul Critically high 0.3-0.8 [facility] Comment on above: Performed By: #### C MIKKI, LIVER #### [facility] [address] [place] [address] Dr. Agueda Wiley Monocytes/100 WBC (Bld) 6.8 % Normal 1.7-12.0 [facility] Comment on above: Performed By: #### C MIKKI, LIVER #### [facility] [address] [place] [address] Dr. Agueda Wiley NEUT # 15.2 103/ul Critically high 1.4-6.5 The [facility] Comment on above: Performed By: #### C MIKKI, LIVER #### [facility] [address] [place] [address] Dr. Agueda Wiley Neutrophils/100 WBC (Bld) 79.5 % Critically high 43.0-75.0 [facility] Comment on above: Performed By: #### C MIKKI, LIVER #### [facility] [address] [place] [address] Dr. Agueda Wiley Platelet mean volume (Bld) [Entitic vol] 10.3 fL Normal 9.5-13.5 [facility] Comment on above: Performed By: #### C MIKKI, LIVER #### [facility] [address] [address] [address] Agueda Wiley PLT 328 103/ul Normal 150-450 [facility] Comment on above: Performed By: #### C MIKKI, LIVER #### [facility] [address] [address] [address] Agueda Wiley RBC 4.15 106/ul Critically low 4.20-5.40 [facility] Comment on above: Performed By: #### C MIKKI, LIVER #### [facility] [address] [address] [address] Agueda Wiley WBC 19.1 103/ul Critically high 4.0-11.0 [facility] Comment on above: Performed By: #### C MIKKI, LIVER #### [facility] [address] [place] [address] Dr. Agueda Wiley PROF 14(COMP METB)on 022 Albumin [Mass/Vol] 2.0 g/dL Critically low 3.4-5.0 [facility] Comment on above: Performed By: #### R NPAB #### [facility] [address] [place] [address] Dr. Agueda Wiley Albumin/Globulin [Mass ratio] 0.7 {ratio} Normal [facility] Comment on above: Performed By: #### R NPAB #### [facility] [address] [place] [address] Dr. Agueda Wiley ALP [Catalytic activity/Vol] 94 U/L Normal 46-116 [facility] Comment on above: Performed By: #### R NPAB #### [facility] [address] [address] [address] Agueda Wiley ALT [Catalytic activity/Vol] 16 U/L Normal 14-59 [facility] Comment on above: Performed By: #### R NPAB #### [facility] [address] [place] [address] Dr. Agueda Wiley Anion gap [Moles/Vol] 13.3 mmol/L Normal [facility] Comment on above: Performed By: #### R NPAB #### [facility] [address] [address] [address] Agueda Wiley AST [Catalytic activity/Vol] 11 U/L Critically low 15-37 [facility] Comment on above: Performed By: #### R NPAB #### [facility] [address] [address] [address] Agueda Wiley Bilirubin [Mass/Vol] 0.3 mg/dL Normal 0.2-1.0 [facility] Comment on above: Performed By: #### R NPAB #### [facility] [address] [address] [address] Agueda Wiley Calcium [Mass/Vol] 7.8 mg/dL Critically low 8.5-10.1 [facility] Comment on above: Performed By: #### R NPAB #### [facility] [address] [address] [address] Agueda Wiley Chloride [Moles/Vol] 107 mmol/L Normal 98-107 [facility] Comment on above: Performed By: #### R NPAB #### [facility] [address] [address] [address] Agueda Wiley CO2 [Moles/Vol] 20.0 mmol/L Critically low 21.0-32.0 [facility] Comment on above: Performed By: #### R NPAB #### [facility] [address] [address] [address] Agueda Wiley Creatinine [Mass/Vol] 0.81 mg/dL Normal 0.55-1.02 [facility] Comment on above: Performed By: #### R NPAB #### [facility] [address] [address] [address] Agueda Wiley EGFR-AF TANZANIAN >60 Normal >=60 [facility] Comment on above: Performed By: #### R NPAB #### [facility] [address] [address] [address] Agueda Wiley EGFR-NON AF TANZANIAN >60 Normal >=60 [facility] Comment on above: Performed By: #### R NPAB #### [facility] [address] [address] [address] Agueda Wiley Globulin (S) [Mass/Vol] 3.0 g/dL Normal [facility] Comment on above: Performed By: #### R NPAB #### [facility] [address] [address] [address] Agueda Wiley Glucose [Mass/Vol] 113 mg/dL Critically high 74-106 [facility] Comment on above: Performed By: #### R NPAB #### [facility] [address] [address] [address] Agueda Wiley Potassium [Moles/Vol] 3.3 mmol/L Critically low 3.5-5.1 [facility] Comment on above: Performed By: #### R NPAB #### [facility] [address] [address] [address] Agueda Wiley Protein [Mass/Vol] 5.0 g/dL Critically low 6.4-8.2 [facility] Comment on above: Performed By: #### R NPAB #### [facility] [address] [address] [address] Agueda Wiley Sodium [Moles/Vol] 137 mmol/L Normal 136-145 [facility] Comment on above: Performed By: #### R NPAB #### [facility] [address] [place] [address] Dr. Agueda Wiley Urea nitrogen [Mass/Vol] 11.0 mg/dL Normal 7.0-18.0 [facility] Comment on above: Performed By: #### R NPAB #### [facility] [address] [address] [address] Agueda Wiley Urea nitrogen/Creatinine [Mass ratio] 13.6 mg/mg Normal [facility] Comment on above: Performed By: #### R NPAB #### [facility] [address] [address] [address] Agueda Wiley CBC W MANUAL DIFFon 05-18-20 22 ATYPICAL LYMPH # 0.23 103/ul Normal [facility] Comment on above: Performed By: #### C MIKKI, LIVER #### [facility] [address] [place] [address] Dr. Agueda Wiley ATYPICAL LYMPH % 1 % Normal The [facility] Comment on above: Performed By: #### C MIKKI, LIVER #### [facility] [address] [place] [address] Dr. Agueda Wiley BAND # 0.0 103/ul Normal 0.0-0.3 [facility] Comment on above: Performed By: #### C MIKKI, LIVER #### [facility] [address] [place] [address] Dr. Agueda Wiley BAND % 0 % Normal 0-5 [facility] Comment on above: Performed By: #### C MIKKI, LIVER #### [facility] [address] [place] [address] Dr. Agueda Wiley BASOM # 0.00 103/ul Normal 0.00-0.10 [facility] Comment on above: Performed By: #### C MIKKI, LIVER #### [facility] [address] [place] [address] Dr. Agueda Wiley BASOM % 0.0 % Critically low 0.2-2.0 [facility] Comment on above: Performed By: #### C MIKKI, LIVER #### [facility] [address] [place] [address] Dr. Agueda Wiley BLAST # Normal [facility] Comment on above: Performed By: #### C MIKKI, LIVER #### [facility] [address] [place] [address] Dr. Agueda Wiley BLAST % Normal [facility] Comment on above: Performed By: #### C MIKKI, LIVER #### [facility] [address] [place] [address] Dr. Agueda Wiley CORRECTED WBC Normal 4.0-11.0 [facility] Comment on above: Performed By: #### C MIKKI, LIVER #### [facility] [address] [place] [address] Dr. Agueda Wiley EOS # 0.23 103/ul Normal 0.00-0.70 [facility] Comment on above: Performed By: #### C MIKKI, LIVER #### [facility] [address] [address] [address] Agueda Wiley EOS% 1.0 % Normal 0.9-7.0 [facility] Comment on above: Performed By: #### C MIKKI, LIVER #### [facility] [address] [address] [address] Agueda Wiley HCT 35.7 % Critically low 36.0-48.0 [facility] Comment on above: Performed By: #### C MIKKI, LIVER #### [facility] [address] [address] [address] Agueda Wiley HGB 11.6 g/dl Critically low 12.0-16.0 [facility] Comment on above: Performed By: #### C MIKKI, LIVER #### [facility] [address] [address] [address] Agueda Wiley LYMPHM # 1.41 103/ul Normal 1.20-3.80 [facility] Comment on above: Performed By: #### C MIKKI, LIVER #### [facility] [address] [address] [address] Agueda Wiley LYMPHM% 6.0 % Critically low 20.5-60.0 [facility] Comment on above: Performed By: #### C MIKKI, LIVER #### [facility] [address] [address] [address] Agueda Wiley MCH 29.4 pg Normal 26.7-34.0 [facility] Comment on above: Performed By: #### C MIKKI, LIVER #### [facility] [address] [address] [address] Agueda Wiley MCHC 32.5 g/dl Normal 29.9-35.2 [facility] Comment on above: Performed By: #### C MIKKI, LIVER #### [facility] [address] [address] [address] Agueda Wiley MCV 90.4 fL Normal 81.0-99.0 [facility] Comment on above: Performed By: #### C MIKKI, LIVER #### [facility] [address] [address] [address] Agueda Wiley METAMYELOCYTE # Normal [facility] Comment on above: Performed By: #### C MIKKI, LIVER #### [facility] [address] [address] [address] Agueda Wiley METAMYELOCYTE % Normal [facility] Comment on above: Performed By: #### C MIKKI, LIVER #### [facility] [address] [address] [address] Agueda Wiley MONOM# 0.94 103/ul Critically high 0.30-0.80 [facility] Comment on above: Performed By: #### C MIKKI, LIVER #### [facility] [address] [place] [address] Dr. Agueda Wiley MONOM% 4.0 % Normal 1.7-12.0 [facility] Comment on above: Performed By: #### C MIKKI, LIVER #### [facility] [address] [place] [address] Dr. Agueda Wiley MPV 10.5 fL Normal 9.5-13.5 [facility] Comment on above: Performed By: #### C MIKKI, LIVER #### [facility] [address] [place] [address] Dr. Agueda Wiley MYELOCYTE # Normal [facility] Comment on above: Performed By: #### C MIKKI, LIVER #### [facility] [address] [place] [address] Dr. Agueda Wiley MYELOCYTE % Normal [facility] Comment on above: Performed By: #### C MIKKI, LIVER #### [facility] [address] [place] [address] Dr. Agueda Wiley NRBC Normal [facility] Comment on above: Performed By: #### C MIKKI, LIVER #### [facility] [address] [place] [address] Dr. Agueda Wiley PLT 306 103/ul Normal 150-450 [facility] Comment on above: Performed By: #### C MIKKI, LIVER #### [facility] [address] [address] [address] Agueda Wiley RBC 3.95 106/ul Critically low 4.20-5.40 [facility] Comment on above: Performed By: #### C MIKKI, LIVER #### [facility] [address] [address] [address] Agueda Wiley RDW 12.6 % Normal 11.0-15.0 [facility] Comment on above: Performed By: #### C MIKKI, LIVER #### [facility] [address] [address] [address] Agueda Wiley SEG # 20.68 103/ul Critically high 1.40-6.50 [facility] Comment on above: Performed By: #### C MIKKI, LIVER #### [facility] [address] [address] [address] Agueda Wiley SEG % 88.0 % Critically high 43.0-75.0 [facility] Comment on above: Performed By: #### C MIKKI, LIVER #### [facility] [address] [address] [address] Agueda Wiley WBC 23.5 103/ul Critically high 4.0-11.0 [facility] Comment on above: Performed By: #### C MIKKI, LIVER #### [facility] [address] [address] [address] Agueda Wiley PROF 14(COMP METB)on 022 Albumin [Mass/Vol] 1.8 g/dL Critically low 3.4-5.0 [facility] Comment on above: Performed By: #### C MIKKI, LIVER #### [facility] [address] [address] [address] Agueda Wiley Albumin/Globulin [Mass ratio] 0.6 {ratio} Normal [facility] Comment on above: Performed By: #### C MIKKI, LIVER #### [facility] [address] [address] [address] Agueda Wiley ALP [Catalytic activity/Vol] 107 U/L Normal 46-116 [facility] Comment on above: Performed By: #### C MIKKI, LIVER #### [facility] [address] [address] [address] Agueda Wiley ALT [Catalytic activity/Vol] 20 U/L Normal 14-59 [facility] Comment on above: Performed By: #### C MIKKI, LIVER #### [facility] [address] [address] [address] Aguead Wiley Anion gap [Moles/Vol] 14.6 mmol/L Normal [facility] Comment on above: Performed By: #### C MIKKI, LIVER #### [facility] [address] [address] [address] Agueda Wiley AST [Catalytic activity/Vol] 12 U/L Critically low 15-37 [facility] Comment on above: Performed By: #### C MIKKI, LIVER #### [facility] [address] [address] [address] Agueda Wiley Bilirubin [Mass/Vol] 0.3 mg/dL Normal 0.2-1.0 [facility] Comment on above: Performed By: #### C MIKKI, LIVER #### [facility] [address] [address] [address] Agueda Wiley Calcium [Mass/Vol] 7.5 mg/dL Critically low 8.5-10.1 [facility] Comment on above: Performed By: #### C MIKKI, LIVER #### [facility] [address] [address] [address] Agueda Wiley Chloride [Moles/Vol] 107 mmol/L Normal 98-107 [facility] Comment on above: Performed By: #### C MIKKI, LIVER #### [facility] [address] [address] [address] Agueda Wiley CO2 [Moles/Vol] 20.4 mmol/L Critically low 21.0-32.0 [facility] Comment on above: Performed By: #### C MIKKI, LIVER #### [facility] [address] [address] [address] Agueda Wiley Creatinine [Mass/Vol] 0.96 mg/dL Normal 0.55-1.02 [facility] Comment on above: Performed By: #### C MIKKI, LIVER #### [facility] [address] [address] [address] Agueda Wiley EGFR-AF TANZANIAN >60 Normal >=60 [facility] Comment on above: Performed By: #### C MIKKI, LIVER #### [facility] [address] [address] [address] Agueda Wiley EGFR-NON AF TANZANIAN 58 mL/min/1.73m2 Critically low >=60 [facility] Comment on above: Performed By: #### C MIKKI, LIVER #### [facility] [address] [address] [address] Agueda Wiley Globulin (S) [Mass/Vol] 2.9 g/dL Normal [facility] Comment on above: Performed By: #### C MIKKI, LIVER #### [facility] [address] [place] [address] Dr. Agueda Wiley Glucose [Mass/Vol] 93 mg/dL Normal 74-106 [facility] Comment on above: Performed By: #### C MIKKI, LIVER #### [facility] [address] [address] [address] Agueda iWley Potassium [Moles/Vol] 3.0 mmol/L Critically low 3.5-5.1 [facility] Comment on above: Performed By: #### C MIKKI, LIVER #### [facility] [address] [place] [address] Dr. Agueda Wiley Protein [Mass/Vol] 4.7 g/dL Critically low 6.4-8.2 [facility] Comment on above: Performed By: #### C MIKKI, LIVER #### [facility] [address] [place] [address] Dr. Agueda Wiley Sodium [Moles/Vol] 138 mmol/L Normal 136-145 [facility] Comment on above: Performed By: #### C MIKKI, LIVER #### [facility] [address] [place] [address] Dr. Agueda Wiley Urea nitrogen [Mass/Vol] 18.0 mg/dL Normal 7.0-18.0 [facility] Comment on above: Performed By: #### C MIKKI, LIVER #### [facility] [address] [place] [address] Dr. Agueda Wiley Urea nitrogen/Creatinine [Mass ratio] 18.8 mg/mg Normal [facility] Comment on above: Performed By: #### C MIKKI, LIVER #### [facility] [address] [place] [address] Dr. Agueda Wiley AMYLASEon 05-17-2022 Amylase [Catalytic activity/Vol] 79 U/L Normal 25-115 [facility] Comment on above: Performed By: #### C SUITE #### [facility] [address] [place] [address] Dr. Agueda Wiley CBC W MANUAL DIFFon 05-17-20 ATYPICAL LYMPH # Normal [facility] Comment on above: Performed By: #### C MIKKI, LIVER #### [facility] [address] [place] [address] Dr. Agueda Wiley ATYPICAL LYMPH % Normal [facility] Comment on above: Performed By: #### C MIKKI, LIVER #### [facility] [address] [place] [address] Dr. Agueda Wiley BAND # Normal 0.0-0.3 [facility] Comment on above: Performed By: #### C MIKKI, LIVER #### [facility] [address] [place] [address] Dr. Agueda Wiley BAND % Normal 0-5 [facility] Comment on above: Performed By: #### C MIKKI, LIVER #### [facility] [address] [place] [address] Dr. Agueda Wiley BASOM # 0.00 103/ul Normal 0.00-0.10 [facility] Comment on above: Performed By: #### C MIKKI, LIVER #### [facility] [address] [place] [address] Dr. Agueda Wiley BASOM % 0.0 % Critically low 0.2-2.0 [facility] Comment on above: Performed By: #### C MIKKI, LIVER #### [facility] [address] [place] [address] Dr. Agueda Wiley BLAST # Normal [facility] Comment on above: Performed By: #### C MIKKI, LIVER #### [facility] [address] [place] [address] Dr. Agueda Wiley BLAST % Normal [facility] Comment on above: Performed By: #### C MIKKI, LIVER #### [facility] [address] [place] [address] Dr. Agueda Wiley CORRECTED WBC Normal 4.0-11.0 [facility] Comment on above: Performed By: #### C MIKKI, LIVER #### [facility] [address] [place] [address] Dr. Agueda Wiley EOS # 0.00 103/ul Normal 0.00-0.70 [facility] Comment on above: Performed By: #### C MIKKI, LIVER #### [facility] [address] [place] [address] Dr. Agueda Wiley EOS% 0.0 % Critically low 0.9-7.0 [facility] Comment on above: Performed By: #### C MIKKI, LIVER #### [facility] [address] [place] [address] Dr. Agueda Wiley HCT 43.3 % Normal 36.0-48.0 [facility] Comment on above: Performed By: #### C MIKKI, LIVER #### [facility] [address] [place] [address] Dr. Agueda Wiley HGB 14.4 g/dl Normal 12.0-16.0 [facility] Comment on above: Performed By: #### C MIKKI, LIVER #### [facility] [address] [place] [address] Dr. Agueda Wiley LYMPHM # 2.96 103/ul Normal 1.20-3.80 [facility] Comment on above: Performed By: #### C MIKKI, LIVER #### [facility] [address] [place] [address] Dr. Agueda Wiley LYMPHM% 10.0 % Critically low 20.5-60.0 [facility] Comment on above: Performed By: #### C MIKKI, LIVER #### [facility] [address] [place] [address] Dr. Agueda Wiley MCH 29.4 pg Normal 26.7-34.0 [facility] Comment on above: Performed By: #### C MIKKI, LIVER #### [facility] [address] [place] [address] Dr. Agueda Wiley MCHC 33.3 g/dl Normal 29.9-35.2 [facility] Comment on above: Performed By: #### C MIKKI, LIVER #### [facility] [address] [place] [address] Dr. Agueda Wiley MCV 88.5 fL Normal 81.0-99.0 [facility] Comment on above: Performed By: #### C MIKKI, LIVER #### [facility] [address] [place] [address] Dr. Agueda Wiley METAMYELOCYTE # Normal [facility] Comment on above: Performed By: #### C MIKKI, LIVER #### [facility] [address] [place] [address] Dr. Agueda Wiley METAMYELOCYTE % Normal [facility] Comment on above: Performed By: #### C MIKKI, LIVER #### [facility] [address] [place] [address] Dr. Agueda Wiley MONOM# 1.78 103/ul Critically high 0.30-0.80 [facility] Comment on above: Performed By: #### C MIKKI, LIVER #### [facility] [address] [place] [address] Dr. Agueda Wiley MONOM% 6.0 % Normal 1.7-12.0 [facility] Comment on above: Performed By: #### C MIKKI, LIVER #### [facility] [address] [place] [address] Dr. Agueda Wiley MPV 10.6 fL Normal 9.5-13.5 [facility] Comment on above: Performed By: #### C MIKKI, LIVER #### [facility] [address] [address] [address] Agueda Wiley MYELOCYTE # Normal [facility] Comment on above: Performed By: #### C MIKKI, LIVER #### [facility] [address] [address] [address] Agueda Wiley MYELOCYTE % Normal [facility] Comment on above: Performed By: #### C MIKKI, LIVER #### [facility] [address] [address] [address] Agueda Wiley NRBC Normal [facility] Comment on above: Performed By: #### C MIKKI, LIVER #### [facility] [address] [address] [address] Agueda Wiley PLT 383 103/ul Normal 150-450 [facility] Comment on above: Performed By: #### C MIKKI, LIVER #### [facility] [address] [address] [address] Agueda Wiley RBC 4.89 106/ul Normal 4.20-5.40 [facility] Comment on above: Performed By: #### C MIKKI, LIVER #### [facility] [address] [address] [address] Agueda Wiley RDW 12.7 % Normal 11.0-15.0 [facility] Comment on above: Performed By: #### C MIKKI, LIVER #### [facility] [address] [address] [address] Agueda Wiley SEG # 24.86 103/ul Critically high 1.40-6.50 [facility] Comment on above: Performed By: #### C MIKKI, LIVER #### [facility] [address] [address] [address] Agueda Wiley SEG % 84.0 % Critically high 43.0-75.0 [facility] Comment on above: Performed By: #### C MIKKI, LIVER #### [facility] [address] [address] [address] Agueda Wiley WBC 29.6 103/ul Critically high 4.0-11.0 [facility] Comment on above: Performed By: #### C MIKKI, LIVER #### [facility] [address], [place] [address] ABD/PELVIS WO CONon [...] FAY BERGERON Date: 2022-05-17 10:55 Normal [facility] CULTURE BLOODon 05-17-2022 Microscopic examination of blood, culture Culture Observations: NO GROWTH AT 5 DAYS. Normal [facility] Comment on above: Performed By: #### C MIKKI LIVER #### [facility] [address], [place] [address] Dr. Agueda Wiley Microscopic examination of blood, culture Culture Observations: NO GROWTH AT 5 DAYS. Normal [facility] Comment on above: Performed By: #### C MIKKI LIVER #### [facility] [address], [place] [address] Dr. Agueda Wiley Covid-19 PCR (CVDTB)on SARS-CoV-2 (COVID-19) RNA JEREMIAH+probe Ql (Unsp spec) Not detected Normal NOT DETECTED [facility] Comment on above: Result Comment: [...] for this test is supported by the [employer] Supervisor of Health and Human Service's declaration that [...] used). Performed By: #### R NPAB #### [facility] [address] [place] [address] Dr. Agueda Wiley ER URINE PROFILEon 2 Bilirubin Ql (U) Negative Normal NEGATIVE [facility] Comment on above: Performed By: #### R NPAB #### [facility] [address] [place] [address] Dr. Agueda Wiley Clarity (U) CLEAR Normal CLEAR [facility] Comment on above: Performed By: #### R NPAB #### [facility] [address] [place] [address] Dr. Agueda Wiley Color (U) YELLOW Normal YELLOW [facility] Comment on above: Performed By: #### R NPAB #### [facility] [address] [place] [address] Dr. Agueda Wiley ERUAHD A micrscopic examina tion will be performed if indicated. Normal [facility] Comment on above: Performed By: #### R NPAB #### [facility] [address] [place] [address] Dr. Agueda Wiley Glucose Ql (U) Negative Normal NEGATIVE [facility] Comment on above: Performed By: #### R NPAB #### [facility] [address] [place] [address] Dr. Agueda Wiley Hemoglobin Ql (U) Negative Normal NEGATIVE [facility] Comment on above: Performed By: #### R NPAB #### [facility] [address] [address] [address] Agueda Wiley Ketones Ql (U) 15 mg/dl Abnormal NEGATIVE [facility] Comment on above: Performed By: #### R NPAB #### [facility] [address] [place] [address] Dr. Agueda Wiley LEUKOCYTES Negative Normal NEGATIVE [facility] Comment on above: Performed By: #### R NPAB #### [facility] [address] [place] [address] Dr. Agueda Wiley Nitrite Ql (U) Negative Normal NEGATIVE [facility] Comment on above: Performed By: #### R NPAB #### [facility] [address] [place] [address] Dr. Agueda Wiley pH (U) 6.0 [pH] Normal 5-9 [facility] Comment on above: Performed By: #### R NPAB #### [facility] [address] [place] [address] Dr. Agueda Wiley SPEC GRAVITY 1.015 Normal 1.005-<=1.0 25 [facility] Comment on above: Performed By: #### R NPAB #### [facility] [address] [place] [address] Dr. Agueda Wiley UA PROTEIN Negative Normal NEGATIVE/ TRACE [facility] Comment on above: Performed By: #### R NPAB #### [facility] [address] [place] [address] Dr. Agueda Wiley UR MICRO IND NOT INDICATED Normal [facility] Comment on above: Performed By: #### R NPAB #### [facility] [address] [place] [address] Dr. Agueda Wiley Urobilinogen Qn (U) 0.2 {[place]'U}/dL Normal 0.2 - 1. 0 [facility] Comment on above: Performed By: #### R NPAB #### [facility] [address] [place] [address] Dr. Agueda Wiley GI PANEL (PCR)on 05-17-2022 Adenovirus F 40/41 Not detected Normal NOT DETECTED [facility] Comment on above: Performed By: #### C MIKKI, LIVER #### [facility] [address] [place] [address] Dr. Agueda Wiley Astrovirus Not detected Normal NOT DETECTED [facility] Comment on above: Performed By: #### C MIKKI, LIVER #### [facility] [address] [place] [address] Dr. Agueda Uriostegui. Diff toxin A/B Detected Critically abnormal NOT DETECTED [facility] Comment on above: Performed By: #### C MIKKI, LIVER #### [facility] [address] [place] [address] Dr. Agueda Wiley Campylobacter Not detected Normal NOT DETECTED [facility] Comment on above: Performed By: #### C MIKKI, LIVER #### [facility] [address] [place] [address] Dr. Agueda Wiley Cryptosporidium Not detected Normal NOT DETECTED [facility] Comment on above: Performed By: #### C MIKKI, LIVER #### [facility] [address] [place] [address] Dr. Agueda Wiley Cyclos. Cayetanensis Not detected Normal NOT DETECTED [facility] Comment on above: Performed By: #### C MIKKI, LIVER #### [facility] [address] [place] [address] Dr. Agueda Wiley E. Coli O157 Not Applicable Normal Not Applicable [facility] Comment on above: Performed By: #### C MIKKI, LIVER #### [facility] [address] [place] [address] Dr. Agueda Wiley E. histolytica Not detected Normal NOT DETECTED [facility] Comment on above: Performed By: #### C MIKKI, LIVER #### [facility] [address] [place] [address] Dr. Agueda Wiley EAEC Not detected Normal NOT DETECTED [facility] Comment on above: Performed By: #### C MIKKI, LIVER #### [facility] [address] [place] [address] Dr. Agueda Wiley EIEC Not detected Normal NOT DETECTED [facility] Comment on above: Performed By: #### C MIKKI, LIVER #### [facility] [address] [place] [address] Dr. Agueda Wiley EPEC Not detected Normal NOT DETECTED [facility] Comment on above: Performed By: #### C MIKKI, LIVER #### [facility] [address] [place] [address] Dr. Agueda Wiley ETEC Not detected Normal NOT DETECTED [facility] Comment on above: Performed By: #### C MIKKI, LIVER #### [facility] [address] [place] [address] Dr. Agueda Holguin Lamblia Not detected Normal NOT DETECTED [facility] Comment on above: Performed By: #### C MIKKI, LIVER #### [facility] [address] [place] [address] Dr. Agueda LERNER CONTROLS PASSED Normal The [facility] Comment on above: Performed By: #### C MIKKI, LIVER #### [facility] [address] [place] [address] Dr. Agueda [facility] HEADER GI PANEL BACTERIA Normal [facility] Comment on above: Performed By: #### C MIKKI, LIVER #### [facility] [address] [place] [address] Dr. Agueda ALMEIDA ECOLI GI PANEL DIARRHEAGEN IC E.COLI / SHIGELLA Normal [facility] Comment on above: Performed By: #### C MIKKI, LIVER #### [facility] [address] [place] [address] Dr. Agueda ALMEIDA INFO SEE BELOW Normal [facility] Comment on above: Result Comment: EAEC - Enteroaggregative E. Coli EPEC- Enteropathogenic E. Coli ETEC- Enterotoxigenic E. Coli lt/st STEC- Shigella-like toxin-producing E. Coli stx1/stx2 EIEC- Shigella/Enteroinvasive E. Coli Performed By: #### C MIKKI, LIVER #### [facility] [address] [place] [address] Dr. Agueda ALMEIDA PARASITES GI PANEL PARASITES Normal [facility] Comment on above: Performed By: #### C MIKKI, LIVER #### [facility] [address] [place] [address] Dr. Agueda ALMEIDA VIRUS GI PANEL VIRUSES Normal The [facility] Comment on above: Performed By: #### C MIKKI, LIVER #### [facility] [address] [place] [address] Dr. Agueda Wiley Norovirus GI/GII Not detected Normal NOT DETECTED [facility] Comment on above: Performed By: #### C MIKKI, LIVER #### [facility] [address] [place] [address] Dr. Agueda Wiley P. Shigelloides Not detected Normal NOT DETECTED [facility] Comment on above: Performed By: #### C MIKKI, LIVER #### [facility] [address] [place] [address] Dr. Agueda Wiley Rotavirus A Not detected Normal NOT DETECTED [facility] Comment on above: Performed By: #### C MIKKI, LIVER #### [facility] [address] [place] [address] Dr. Agueda Wiley Salmonella Not detected Normal NOT DETECTED [facility] Comment on above: Performed By: #### C MIKKI, LIVER #### [facility] [address] [place] [address] Dr. Agueda Wiley Sapovirus Not detected Normal NOT DETECTED [facility] Comment on above: Performed By: #### C MIKKI, LIVER #### [facility] [address] [place] [address] Dr. Agueda Wiley STEC Not detected Normal NOT DETECTED [facility] Comment on above: Performed By: #### C MIKKI, LIVER #### [facility] [address] [place] [address] Dr. Agueda Wiley Vibrio Not detected Normal NOT DETECTED [facility] Comment on above: Performed By: #### C MIKKI, LIVER #### [facility] [address] [place] [address] Dr. Agueda Wiley Vibrio Cholera Not detected Normal NOT DETECTED [facility] Comment on above: Performed By: #### C MIKKI, LIVER #### [facility] [address] [place] [address] Dr. Agueda Wiley Y. Enterocolitica Not detected Normal NOT DETECTED [facility] Comment on above: Performed By: #### C MIKKI, LIVER #### [facility] [address] [place] [address] Dr. Agueda Wiley LACTATE/LACTIC ACIDon 2021 Lactate [Moles/Vol] 1.3 mmol/L Normal 0.4-1.9 [facility] Comment on above: Performed By: #### A NAIFA #### [facility] [address] [place] [address] Dr. Agueda Wiley LIPASEon 05-17-2022 Lipase [Catalytic activity/Vol] 200.0 U/L Normal 73.0-393.0 [facility] Comment on above: Performed By: #### C SUITE #### [facility] [address] [place] [address] Dr. Agueda Wiley PROF 14(COMP METB)on 022 Albumin [Mass/Vol] 2.3 g/dL Critically low 3.4-5.0 [facility] Comment on above: Performed By: #### C SUITE #### [facility] [address] [place] [address] Dr. Agueda Wiley Albumin/Globulin [Mass ratio] 0.6 {ratio} Normal [facility] Comment on above: Performed By: #### C SUITE #### [facility] [address] [place] [address] Dr. Agueda Wiley ALP [Catalytic activity/Vol] 140 U/L Critically high 46-116 [facility] Comment on above: Performed By: #### C SUITE #### [facility] [address] [place] [address] Dr. Ageuda Wiley ALT [Catalytic activity/Vol] 26 U/L Normal 14-59 [facility] Comment on above: Performed By: #### C SUITE #### [facility] [address] [place] [address] Dr. Agueda Wiley Anion gap [Moles/Vol] 17.5 mmol/L Normal [facility] Comment on above: Performed By: #### C SUITE #### [facility] [address] [place] [address] Dr. Agueda Wiley AST [Catalytic activity/Vol] 15 U/L Normal 15-37 [facility] Comment on above: Performed By: #### C SUITE #### [facility] [address] [place] [address] Dr. Agueda Wiley Bilirubin [Mass/Vol] 0.3 mg/dL Normal 0.2-1.0 [facility] Comment on above: Performed By: #### C SUITE #### [facility] [address] [place] [address] Dr. Agueda Wiley Calcium [Mass/Vol] 8.1 mg/dL Critically low 8.5-10.1 [facility] Comment on above: Performed By: #### C SUITE #### [facility] [address] [place] [address] Dr. Agueda Wiley Chloride [Moles/Vol] 98 mmol/L Normal 98-107 [facility] Comment on above: Performed By: #### C SUITE #### [facility] [address] [place] [address] Dr. Agueda Wiley CO2 [Moles/Vol] 21.9 mmol/L Normal 21.0-32.0 [facility] Comment on above: Performed By: #### C SUITE #### [facility] [address] [place] [address] Dr. Agueda Wiley Creatinine [Mass/Vol] 1.00 mg/dL Normal 0.55-1.02 [facility] Comment on above: Performed By: #### C SUITE #### [facility] [address] [place] [address] Dr. Agueda Wiley EGFR-AF TANZANIAN >60 Normal >=60 [facility] Comment on above: Performed By: #### C SUITE #### [facility] [address] [address] [address] Agueda Wiley EGFR-NON AF TANZANIAN 55 mL/min/1.73m2 Critically low >=60 [facility] Comment on above: Performed By: #### C SUITE #### [facility] [address] [address] [address] Agueda Wiley Globulin (S) [Mass/Vol] 3.8 g/dL Normal [facility] Comment on above: Performed By: #### C SUITE #### [facility] [address] [address] [address] Agueda Wiley Glucose [Mass/Vol] 119 mg/dL Critically high 74-106 [facility] Comment on above: Performed By: #### C SUITE #### [facility] [address] [address] [address] Agueda Wiley Potassium [Moles/Vol] 3.4 mmol/L Critically low 3.5-5.1 [facility] Comment on above: Performed By: #### C SUITE #### [facility] [address] [address] [address] Agueda Wiley Protein [Mass/Vol] 6.1 g/dL Critically low 6.4-8.2 [facility] Comment on above: Performed By: #### C SUITE #### [facility] [address] [address] [address] Agueda Wiley Sodium [Moles/Vol] 134 mmol/L Critically low 136-145 [facility] Comment on above: Performed By: #### C SUITE #### [facility] [address] [address] [address] Agueda Wiley Urea nitrogen [Mass/Vol] 19.0 mg/dL Critically high 7.0-18.0 [facility] Comment on above: Performed By: #### C SUITE #### [facility] [address] [address] [address] Agueda Wiley Urea nitrogen/Creatinine [Mass ratio] 19.0 mg/mg [facility] Comment on above: Performed By: #### C SUITE #### [facility] [address] [place], [place] [address] Dr. Agueda Wiley PROTIMEon 05-17-2022 INR Coag (PPP) [Relative time] 1.12 {INR} Normal [facility] Comment on above: Performed By: #### C MIKKI, LIVER #### [facility] [address] [place], [place] [address] Dr. Agueda Wiley INR GUIDELINES SEE BELOW Normal [facility] Comment on above: Result Comment: ROSA RED INR: 2.0 - 3.0 CONDITIONS NOT LISTED BELOW 2.5 - 3.5 FOR PROSTHETIC HEART VALVE REPLACEMENT 2.5 - 3.5 RECURRENT THROMBOSIS Performed By: #### C MIKKI, LIVER #### [facility] [address] [place], [place] [address] Dr. Agueda Wiley PT Coag (PPP) [Time] 12.0 s Critically high 9.0-11.6 [facility] Comment on above: Performed By: #### C MIKKI, LIVER #### [facility] [address] [place], [place] [address] Dr. Agueda Wiley PTTon 05-17-2022 aPTT Coag (Bld) [Time] 24.8 s Normal 22.3-36.2 [facility] Comment on above: Performed By: #### C MIKKI, LIVER #### [facility] [address] [place], [place] [address] Dr. Agueda Wiley XR knee LT 3Von 04-16-2022 XR knee LT 3V [facility] [employer] Other XR knee LT 3V [facility] [employer] Other XR knee LT 3V [address] [place] [address] [employer] Other XR knee LT 3V [address] [employer] Other XR knee LT 3V XRay Report [employer] Other XR knee LT 3V Signed [place] [employer] Other XR knee LT 3V Patient: Reba Gregory MR#: [id number] [employer] Other XR knee LT 3V : 1955 Acct:[id number] [employer] Other XR knee LT 3V Age/Sex: 66 / F ADM Date: 04/16/22 [employer] Other XR knee LT 3V Loc: [facility] Room: Type : REG CLI [employer] Other XR knee LT 3V Attending Dr: Nabor Nelson II, MD [employer] Other XR knee LT 3V Copies to: Nabor Nelson MD [employer] Other XR knee LT 3V Ordering Provider: Ragini Nelson MD [employer] Other XR knee LT 3V Date of Service: 04/16/22 [employer] Other XR knee LT 3V XR/XR knee LT 3V - NOT FOR ER USE: Aftercare following joint replacement [employer] Other XR knee LT 3V surgery [employer] Other XR knee LT 3V LEFT KNEE - 4 views No rt [employer] Other XR knee LT 3V CLINICAL HISTORY: Follow-up left knee surgery. [employer] Other XR knee LT 3V COMPARISON: Left kne e 03/02/2022 [employer] Other XR knee LT 3V FINDINGS: [employer] Other XR knee LT 3V Left knee prosthesis without radiographic complication. No acute bony process. [employer] Other XR knee LT 3V X R/XR knee LT 3V - NOT FOR ER USE [employer] Other XR knee LT 3V IMPRESSION: [employer] Other XR knee LT 3V NO EVIDENCE OF HARDW ARE COMPLICATION. [employer] Other XR knee LT 3V Impression dictated by: Dave Espana Jr., D.OShannon04/16/2022 10:02 AM [employer] Other XR knee LT 3V Dictation Location: [facility]--[facility] [employer] Other XR knee LT 3V Transcribed By: PWS 04/16/22 1002 [employer] Other XR knee LT 3V Dictated By: Dave Espana Jr DO 04/16/22 1001 [employer] Other XR knee LT 3V Signed By: [employer] Other XR knee LT 3V 04/16/22 1002 [employer] Other Basophils Auto (Bld) [#/Vol] Ordered By: Nabor Nelson on 03-03-2022 Basophils (Bld) [#/Vol] 0.0 10*3/uL 0.0-0.2 [facility] Basophils/100 WBC Auto (Bld) Ordered By: Nabor Nelson on 03-03-2022 Basophils/100 WBC (Bld) 0.2 % . [facility] Blood hemoglobin measurement (mass/volume)Ordered By: Nabor Nelson on 03-03-2022 Hemoglobin (Bld) [Mass/Vol] 11.4 g/dL 11.8-15.4 [facility] Blood leukocytes automated c ount (number/volume)Ordered By: Nabor Nelson on 03-03-2022 WBC (Bld) [#/Vol] 8.3 10*3/uL 4.5-11.0 [facility] Creatinine and Glomerular fi ltration rate.predicted panel (S/P/Bld)Ordered By: Nabor Nelson on 03-03-2022 Creatinine [Mass/Vol] 0.95 mg/dL 0.44-1.03 [facility] Eosinophils Auto (Bld) [#/Vo l]Ordered By: Nabor Nelson on 03-03-2022 Eosinophils (Bld) [#/Vol] 0.0 10*3/uL 0.0-0.45 [facility] Eosinophils/100 WBC Auto (Bl d)Ordered By: Nabor Nelson on 03-03-2022 Eosinophils/100 WBC (Bld) 0.0 % . [facility] Erythrocyte distribution wid th Auto (RBC) [Ratio]Ordered By: Nabor Nelson on 03-03-2022 Erythrocyte distribution width (RBC) [Ratio] 15.0 % 11.9-15.3 [facility] Estimated glomerular filtrat ion rate (GFR) non- AmericanOrdered By: Nabor Nelson on 03-03-2022 GFR/1.73 sq M.predicted among non-blacks MDRD (S/P/Bld) [Vol rate/Area] 59 mL/Min [facility] Hematocrit Auto (Bld) [Volum e fraction]Ordered By: Nabor Nelson on 03-03-2022 Hematocrit (Bld) [Volume fraction] 33.7 % 34.0-46.4 [facility] - Hematology and Cell countsOrdered By: Nabor Nelson on 03-03-2022 Nucleated RBC/100 WBC (Bld) [Ratio] 0.0 % 0-0.5 [facility] Lymphocytes Auto (Bld) [#/Vo l]Ordered By: Nabor Nelson on 03-03-2022 Lymphocytes (Bld) [#/Vol] 0.8 10*3/uL 1.00-4.8 [facility] Lymphocytes/100 WBC Auto (Bl d)Ordered By: Nabor Nelson on 03-03-2022 Lymphocytes/100 WBC (Bld) 9.6 % . [facility] MCH Auto (RBC) [Entitic mass ]Ordered By: Nabor Nelson on 03-03-2022 MCH (RBC) [Entitic mass] 31.0 pg 24.7-34.3 [facility] MCHC Auto (RBC) [Mass/Vol]Or dered By: Nabor Nelson on 03-03-2022 MCHC (RBC) [Mass/Vol] 33.7 g/dL 32.0-35.0 [facility] MCV Auto (RBC) [Entitic vol] Ordered By: Nabor Nelson on 03-03-2022 MCV (RBC) [Entitic vol] 92.0 fL 80-100 [facility] Monocytes Auto (Bld) [#/Vol] Ordered By: Nabor Nelson on 03-03-2022 Monocytes (Bld) [#/Vol] 1.0 10*3/uL 0.0-0.8 [facility] Monocytes/100 WBC Auto (Bld) Ordered By: Nabor Nelson on 03-03-2022 Monocytes/100 WBC (Bld) 12.6 % . [facility] Neutrophils Auto (Bld) [#/Vo l]Ordered By: Nabor Nelson on 03-03-2022 Neutrophils (Bld) [#/Vol] 6.4 10*3/uL 1.8-7.7 [facility] Neutrophils/100 WBC Auto (Bl d)Ordered By: Nabor Nelson on 03-03-2022 Neutrophils/100 WBC (Bld) 77.6 % . [facility] No Panel InformationOrdered By: Nabor Nelson on 03-03-2022 Estimated GFR () > 60 mL/Min [facility] Comment on above: GFR estimated refere nce range: According to KDOQI guidelines, <60 ml/min/1.73m2 is sufficient to diagnose a patient with chronic kidney disease. Pharmacy Creatinine Clearance (Chem 55.10 [facility] Platelet mean volume Auto (B ld) [Entitic vol]Ordered By: Nabor Nelson on 03-03-2022 Platelet mean volume (Bld) [Entitic vol] 10.5 fL 6.3-10.7 [facility] Platelets Auto (Bld) [#/Vol] Ordered By: Nabor Nelson on 03-03-2022 Platelets (Bld) [#/Vol] 187 10*3/uL 150-450 [facility] RBC Auto (Bld) [#/Vol]Ordere d By: Nabor Nelson on 03-03-2022 RBC (Bld) [#/Vol] 3.66 10*6/uL 3.60-5.00 [facility] [place] [facility] Serum or plasma calcium phan urement (mass/volume)Ordered By: Nabor Nelson on 03-03-2022 Calcium [Mass/Vol] 9.2 mg/dL 8.2-10.2 [facility] Serum or plasma chloride wilma surement (moles/volume)Ordered By: Nabor Nelson on 03-03-2022 Chloride [Moles/Vol] 107 mmol/L 95-114 [facility] Serum or plasma glucose phan urement (mass/volume)Ordered By: Nabor Nelson on 03-03-2022 Glucose [Mass/Vol] 157 mg/dL 70-100 [facility] Comment on above: ADA recommended refe rence range Random Glucose Reference Range is dependent on time and content of last meal. Glucose of more than 200 mg/dL in a nonstressed, ambulatory subject supports the diagnosis of Diabetes Mellitus. Serum or plasma potassium me asurement (moles/volume)Ordered By: Nabor Nelson on 03-03-2022 Potassium [Moles/Vol] 4.0 mmol/L 3.5-5.1 [facility] Serum or plasma sodium measu rement (moles/volume)Ordered By: Nabor Nelson on 03-03-2022 Sodium [Moles/Vol] 139 mmol/L 136-146 [facility] Serum or plasma total carbon dioxide measurement (moles/volume)Ordered By: Nabor Nelson on 03-03-2022 CO2 [Moles/Vol] 24.8 mmol/L 22.0-30.0 [facility] Serum or plasma urea nitroge n measurement (mass/volume)Ordered By: Nabor Nelson on 03-03-2022 Urea nitrogen [Mass/Vol] 12 mg/dL 9-23 [facility] COVID-19 Positive/NegativeOr dered By: Nabor Nelson on 02-26-2022 SARS-CoV-2 (COVID-19) N gene JEREMIAH+probe Ql (Resp) Negative Negative [facility] Comment on above: Testing for SARS-CoV -2 by RT-PCR This test was developed and its performance characteristics determined by [employer] and validated at the [facility]. This test has not been FDA cleared [...] 01-30-2022 BASO # 0.0 103/ul Normal 0.0-0.1 [facility] Comment on above: Performed By: #### C MIKKI, LIVER #### [facility] [address] [place] [address] Dr. Agueda Wiley Basophils/100 WBC (Bld) 0.6 % Normal 0.2-2.0 [facility] Comment on above: Performed By: #### C MIKKI, LIVER #### [facility] [address] [address] [address] Agueda Wiley EO # 0.2 103/ul Normal 0.0-0.7 [facility] Comment on above: Performed By: #### C MIKKI, LIVER #### [facility] [address] [place] [address] Dr. Agueda Wiley Eosinophils/100 WBC (Bld) 2.7 % Normal 0.9-7.0 [facility] Comment on above: Performed By: #### C MIKKI, LIVER #### [facility] [address] [address] [address] Agueda Wiley Erythrocyte distribution width (RBC) [Ratio] 14.0 % Normal 11.0-15.0 [facility] Comment on above: Performed By: #### C MIKKI, LIVER #### [facility] [address] [place] [address] Dr. Agueda Wiley Hematocrit (Bld) [Volume fraction] 42.1 % Normal 36.0-48.0 [facility] Comment on above: Performed By: #### C MIKKI, LIVER #### [facility] [address] [place] [address] Dr. Agueda Wiley Hemoglobin (Bld) [Mass/Vol] 13.8 g/dL Normal 12.0-16.0 [facility] Comment on above: Performed By: #### C MIKKI, LIVER #### [facility] [address] [place] [address] Dr. Agueda Wiley IG # 0.02 10e3/ul Normal 0.00-0.03 [facility] Comment on above: Performed By: #### C MIKKI, LIVER #### [facility] [address] [place] [address] Dr. Agueda Wiley IG % 0.3 % Normal 0.0-0.5 [facility] Comment on above: Performed By: #### Gila KAYE, LIVER #### [facility] [address] [place] [address] Dr. Agueda Wiley LYMPH # 1.6 103/ul Normal 1.2-3.8 [facility] Comment on above: Performed By: #### Gila KAYE, LIVER #### [facility] [address] [place] [address] Dr. Agueda Wiley Lymphocytes/100 WBC (Bld) 23.3 % Normal 20.5-60.0 [facility] Comment on above: Performed By: #### Gila KAYE, LIVER #### [facility] [address] [place] [address] Dr. Agueda Wiley MCH (RBC) [Entitic mass] 29.7 pg Normal 26.7-34.0 [facility] Comment on above: Performed By: #### C MIKKI, LIVER #### [facility] [address] [place] [address] Dr. Agueda Wiley MCHC (RBC) [Mass/Vol] 32.8 g/dL Normal 29.9-35.2 [facility] Comment on above: Performed By: #### Gila KAYE, LIVER #### [facility] [address] [place] [address] Dr. Agueda Wiley MCV (RBC) [Entitic vol] 90.7 fL Normal 81.0-99.0 [facility] Comment on above: Performed By: #### C MIKKI, LIVER #### [facility] [address] [place] [address] Dr. Agueda Wiley MONO # 0.8 103/ul Normal 0.3-0.8 [facility] Comment on above: Performed By: #### C MIKKI, LIVER #### [facility] [address] [place] [address] Dr. Agueda Wiley Monocytes/100 WBC (Bld) 10.7 % Normal 1.7-12.0 [facility] Comment on above: Performed By: #### C MIKKI, LIVER #### [facility] [address] [place] [address] Dr. Agueda Wiley NEUT # 4.4 103/ul Normal 1.4-6.5 [facility] Comment on above: Performed By: #### C MIKKI, LIVER #### [facility] [address] [place] [address] Dr. Agueda Wiley Neutrophils/100 WBC (Bld) 62.4 % Normal 43.0-75.0 [facility] Comment on above: Performed By: #### C MIKKI, LIVER #### [facility] [address] [place] [address] Dr. Agueda Wiley Platelet mean volume (Bld) [Entitic vol] 11.0 fL Normal 9.5-13.5 [facility] Comment on above: Performed By: #### C MIKKI, LIVER #### [facility] [address] [place] [address] Dr. Agueda Wiley PLT 270 103/ul Normal 150-450 [facility] Comment on above: Performed By: #### C MIKKI, LIVER #### [facility] [address] [place] [address] Dr. Agueda Wiley RBC 4.64 106/ul Normal 4.20-5.40 [facility] Comment on above: Performed By: #### C MIKKI, LIVER #### [facility] [address] [address] [address] Agueda Wiley WBC 7.0 103/ul Normal 4.0-11.0 [facility] Comment on above: Performed By: #### C MIKKI, LIVER #### [facility] [address] [address] [address] Agueda Wiley SAULO- BMP WITH LIPIDon 2021 Anion gap [Moles/Vol] 12.5 mmol/L Normal [facility] Comment on above: Performed By: #### C MIKKI, LIVER #### [facility] [address] [address] [address] Agueda Wiley Calcium [Mass/Vol] 9.0 mg/dL Normal 8.5-10.1 [facility] Comment on above: Performed By: #### C MIKKI, LIVER #### [facility] [address] [address] [address] Agueda Wiley Chloride [Moles/Vol] 105 mmol/L Normal 98-107 [facility] Comment on above: Performed By: #### C MIKKI, LIVER #### [facility] [address] [address] [address] Agueda Wiley Cholesterol [Mass/Vol] 246 mg/dL Critically high <=200 [facility] Comment on above: Performed By: #### C MIKKI, LIVER #### [facility] [address] [address] [address] Agueda Wiley Cholesterol in HDL [Mass/Vol] 84 mg/dL Critically high 40-60 [facility] Comment on above: Performed By: #### C MIKKI, LIVER #### [facility] [address] [address] [address] Agueda Wiley Cholesterol in LDL [Mass/Vol] 130.6 mg/dL Normal [facility] Comment on above: Performed By: #### C MIKKI, LIVER #### [facility] [address] [address] [address] Agueda Wiley CO2 [Moles/Vol] 28.4 mmol/L Normal 21.0-32.0 [facility] Comment on above: Performed By: #### C MIKKI, LIVER #### [facility] [address] [address] [address] Agueda Wiley Creatinine [Mass/Vol] 0.97 mg/dL Normal 0.55-1.02 [facility] Comment on above: Performed By: #### C MIKKI, LIVER #### [facility] [address] [address] [address] Agueda Wiley EGFR-AF TANZANIAN >60 Normal >=60 [facility] Comment on above: Performed By: #### C MIKKI, LIVER #### [facility] [address] [address] [address] Agueda Wiley EGFR-NON AF TANZANIAN 57 mL/min/1.73m2 Critically low >=60 [facility] Comment on above: Performed By: #### C MIKKI, LIVER #### [facility] [address] [address] [address] Agueda Wiley Glucose [Mass/Vol] 96 mg/dL Normal 74-106 [facility] Comment on above: Performed By: #### C MIKKI, LIVER #### [facility] [address] [address] [address] Agueda Wiley HDL NORMAL > or = 60 mg/dl - LO W CARDIOVASCULAR RISK <40 mg/dl - HIGH CARDIOVASCULAR RISK Normal [facility] Comment on above: Performed By: #### C MIKKI, LIVER #### [facility] [address] [address] [address] Agueda Wiley LDL CALC NORMAL SEE BELOW Normal [facility] Comment on above: Result Comment: <100 mg/dl OPTIMAL 100 - 129 mg/dl NEAR OR ABOVE OPTIMAL 130 - 159 mg/dl BORDERLINE HIGH 160 - 189 mg/dl HIGH >190 mg/dl VERY HIGH Performed By: #### C MIKKI, LIVER #### [facility] [address] [address] [address] Agueda Wiley Potassium [Moles/Vol] 3.9 mmol/L Normal 3.5-5.1 [facility] Comment on above: Performed By: #### C MIKKI, LIVER #### [facility] [address] [address] [address] Agueda Wiley Sodium [Moles/Vol] 142 mmol/L Normal 136-145 [facility] Comment on above: Performed By: #### C MIKKI, LIVER #### [facility] [address] [address] [address] Agueda Wiley Triglyceride [Mass/Vol] 157 mg/dL Critically high <=150 [facility] Comment on above: Performed By: #### C MIKKI, LIVER #### [facility] [address] [address] [address] Agueda Wiley Urea nitrogen [Mass/Vol] 19.0 mg/dL Critically high 7.0-18.0 [facility] Comment on above: Performed By: #### C MIKKI, LIVER #### [facility] [address] [address] [address] Agueda Wiley Urea nitrogen/Creatinine [Mass ratio] 19.6 mg/mg Normal [facility] Comment on above: Performed By: #### C MIKKI, LIVER #### [facility] [address] [address] [address] Agueda Wiley VLDL CALC 31.4 mg/dL Normal [facility] Comment on above: Performed By: #### C MIKKI, LIVER #### [facility] [address] [address] [address] Agueda Wiley Vital Signs Date Time Vital Sign Value Performing Clinician Facility 04-28-2024 [id number] Body height 143.51 cm [facility] 04-28-2024 08:20-0400 Body mass index (BMI) [Ratio] 36.2 kg/m2 [facility] 04-28-2024 08:20-0400 Body weight 74.58 kg [facility] 04-28-2024 08:20-0400 Diastolic blood pressure 78 mm[Hg] [facility] 04-28-2024 08:20-0400 Heart rate 63 /min [facility] 04-28-2024 08:20-0400 Respiratory rate 18 /min [facility] 04-28-2024 08:20-0400 SaO2% (BldA) [Mass fraction] 95 % [facility] 04-28-2024 08:20-0400 Systolic blood pressure 160 mm[Hg] [facility] 03-09-2024 09:05-0400 Body height 143.51 cm [facility] 03-09-2024 09:05-0400 Body mass index (BMI) [Ratio] 36.1 kg/m2 [facility] 03-09-2024 09:05-0400 Body weight 74.44 kg [facility] 03-09-2024 09:05-0400 Diastolic blood pressure 77 mm[Hg] [facility] 03-09-2024 09:05-0400 Heart rate 66 /min [facility] 03-09-2024 09:05-0400 Respiratory rate 12 /min [facility] 03-09-2024 09:05-0400 Systolic blood pressure 184 mm[Hg] [facility] 02-29-2024 09:27-0400 Body height 151.13 cm [facility] 02-29-2024 09:27-0400 Body mass index (BMI) [Ratio] 32.2 kg/m2 [facility] 02-29-2024 09:27-0400 Body weight 73.68 kg [facility] 02-29-2024 09:27-0400 Diastolic blood pressure 87 mm[Hg] [facility] 02-29-2024 09:27-0400 Heart rate 64 /min [facility] 02-29-2024 09:27-0400 Respiratory rate 18 /min [facility] 02-29-2024 09:27-0400 SaO2% (BldA) [Mass fraction] 97 % [facility] 02-29-2024 09:27-0400 Systolic blood pressure 151 mm[Hg] [facility] 01-05-2024 10:32-0400 Body height 151.13 cm [facility] 01-05-2024 10:32-0400 Body mass index (BMI) [Ratio] 32.1 kg/m2 [facility] 01-05-2024 10:32-0400 Body weight 73.48 kg [facility] 01-05-2024 10:32-0400 Diastolic blood pressure 80 mm[Hg] [facility] 01-05-2024 10:32-0400 Heart rate 64 /min [facility] 01-05-2024 10:32-0400 SaO2% (BldA) [Mass fraction] 97 % [facility] 01-05-2024 10:32-0400 Systolic blood pressure 150 mm[Hg] [facility] 12-09-2023 15:06-0400 Body height 151.13 cm DO Jonathan Ball Work Phone: [facility] 12-09-2023 15:06-0400 Body mass index (BMI) [Ratio] 32.3 kg/m2 DO Jonathan Ball Work Phone: [facility] 12-09-2023 15:06-0400 Body weight 73.99 kg DO Jonathan Ball Work Phone: [facility] 12-09-2023 15:06-0400 Diastolic blood pressure 95 mm[Hg] DO Jonathan Ball Work Phone: [facility] 12-09-2023 15:06-0400 Diastolic blood pressure 85 mm[Hg] [facility] 12-09-2023 15:06-0400 Heart rate 65 /min DO Jonathan Ball Work Phone: [facility] 12-09-2023 15:06-0400 Respiratory rate 12 /min DO Jonathan Ball Work Phone: [facility] 12-09-2023 15:06-0400 Systolic blood pressure 171 mm[Hg] DO Jonathan Ball Work Phone: [facility] 12-09-2023 15:06-0400 Systolic blood pressure 155 mm[Hg] [facility] 11-17-2023 08:43-0500 Body height 151.13 cm DO Jonathan Ball Work Phone: [facility] 11-17-2023 08:43-0500 Body mass index (BMI) [Ratio] 32.4 kg/m2 DO Jonathan Ball Work Phone: [facility] 11-17-2023 08:43-0500 Body weight 74.07 kg DO Jonathan Ball Work Phone: [facility] 11-17-2023 08:43-0500 Diastolic blood pressure 78 mm[Hg] DO Jonathan Ball Work Phone: [facility] 11-17-2023 08:43-0500 Heart rate 58 /min DO Jonathan Ball Work Phone: [facility] 11-17-2023 08:43-0500 Respiratory rate 20 /min DO Jonathan Ball Work Phone: [facility] 11-17-2023 08:43-0500 SaO2% (BldA) [Mass fraction] 96 % DO Jonathan Ball Work Phone: [facility] 11-17-2023 08:43-0500 Systolic blood pressure 158 mm[Hg] DO Jonathan Ball Work Phone: [facility] 09-21-2023 11:15-0500 Body height 151.13 cm Massiel Fitt Other [facility] 09-14-2023 11:15-0500 Body height 151.13 cm Massiel Fitt Other [facility] 09-09-2023 09:30-0500 Body height 151.13 cm Jonathan Ball Other [employer] Other 09-09-2023 09:30-0500 Body mass index (BMI) [Ratio] 33.8 kg/m2 Jonathan Ball Other [employer] Other 09-09-2023 09:30-0500 Body weight 77.2 kg Jonathan Ball Other [employer] Other 09-09-2023 09:30-0500 Diastolic blood pressure 80 mm[Hg] Jonathan Ball Other [employer] Other 09-09-2023 09:30-0500 Respiratory rate 12 /min Jonathan Ball Other [employer] Other 09-09-2023 09:30-0500 Systolic blood pressure 169 mm[Hg] Jonathan Ball Other [employer] Other 08-19-2023 08:30-0500 Body height 151.13 cm [facility] Other [employer] Other 08-19-2023 08:30-0500 Body mass index (BMI) [Ratio] 33.6 kg/m2 [facility] Other [employer] Other 08-19-2023 08:30-0500 Body weight 76.75 kg [facility] Other [employer] Other 08-19-2023 08:30-0500 Diastolic blood pressure 97 mm[Hg] [facility] Other [employer] Other 08-19-2023 08:30-0500 Respiratory rate 18 /min [facility] Other [employer] Other 08-19-2023 08:30-0500 SaO2% (BldA) [Mass fraction] 96 % [facility] Other [employer] Other 08-19-2023 08:30-0500 Systolic blood pressure 128 mm[Hg] [facility] Other [employer] Other 08-17-2023 10:45-0500 Body height 151.13 cm Jonathan Ball Other [employer] Other 08-17-2023 10:45-0500 Body mass index (BMI) [Ratio] 33.8 kg/m2 Jonathan Ball Other [employer] Other 08-17-2023 10:45-0500 Body weight 77.2 kg Jonathan Ball Other [employer] Other 08-17-2023 10:45-0500 Diastolic blood pressure 74 mm[Hg] Jonathan Ball Other [employer] Other 08-17-2023 10:45-0500 Respiratory rate 16 /min Jonathan Ball Other [employer] Other 08-17-2023 10:45-0500 Systolic blood pressure 168 mm[Hg] Jonathan Ball Other [employer] Other 08-03-2023 11:15-0500 Body height 151.13 cm Massiel Pereira Other [employer] Other 06-16-2023 08:45-0400 Body height 151.13 cm Olayinka [employer] Other [employer] Other 06-16-2023 08:45-0400 Body mass index (BMI) [Ratio] 35.58 kg/m2 [employer] Other [employer] Other 06-16-2023 08:45-0400 Body weight 81.29 kg [employer] Other [employer] Other 06-16-2023 08:45-0400 Diastolic blood pressure 76 mm[Hg] Olayinka [employer] Other [employer] Other 06-16-2023 08:45-0400 Respiratory rate 18 /min [employer] Other [employer] Other 06-16-2023 08:45-0400 SaO2% (BldA) [Mass fraction] 96 % Olayinka Ramos Other [employer] Other 06-16-2023 08:45-0400 Systolic blood pressure 141 mm[Hg] Olayinka Ramos Other [employer] Other 06-09-2023 10:00-0400 Body height 151.13 cm Jonathan Ball Other [employer] Other 06-09-2023 10:00-0400 Body mass index (BMI) [Ratio] 35.78 kg/m2 Jonathan Ball Other [employer] Other 06-09-2023 10:00-0400 Body weight 81.74 kg Jonathan Ball Other [employer] Other 06-09-2023 10:00-0400 Diastolic blood pressure 84 mm[Hg] Jonathan Ball Other [employer] Other 06-09-2023 10:00-0400 Respiratory rate 16 /min Jonathan Ball Other [employer] Other 06-09-2023 10:00-0400 Systolic blood pressure 145 mm[Hg] Jonathan Ball Other [employer] Other 05-12-2023 11:15-0400 Body height 151.13 cm Massiel Pereira Other [employer] Other 05-05-2023 09:15-0400 Body height 151.13 cm Olayinka Ramos Other [employer] Other 05-05-2023 09:15-0400 Body mass index (BMI) [Ratio] 37.51 kg/m2 Olayinka [employer] Other [employer] Other 05-05-2023 09:15-0400 Body weight 85.69 kg Olayinka [employer] Other [employer] Other 05-05-2023 09:15-0400 Diastolic blood pressure 72 mm[Hg] Olayinka [employer] Other [employer] Other 05-05-2023 09:15-0400 Respiratory rate 18 /min Olayinka [employer] Other [employer] Other 05-05-2023 09:15-0400 SaO2% (BldA) [Mass fraction] 97 % [employer] Other [employer] Other 05-05-2023 09:15-0400 Systolic blood pressure 147 mm[Hg] Olayinka [employer] Other [employer] Other 04-13-2023 14:00-0400 Body height 151.13 cm Jonathan Ball Other [employer] Other 04-13-2023 14:00-0400 Body mass index (BMI) [Ratio] 39.16 kg/m2 Jonathan Ball Other [employer] Other 04-13-2023 14:00-0400 Body weight 89.45 kg Jonathan Ball Other [employer] Other 04-13-2023 14:00-0400 Diastolic blood pressure 82 mm[Hg] Jonathan Ball Other [employer] Other 04-13-2023 14:00-0400 Respiratory rate 12 /min Jonathan Ball Other [employer] Other 04-13-2023 14:00-0400 Systolic blood pressure 166 mm[Hg] Jonathan [employer] Other [employer] Other 04-07-2023 10:00-0400 Body height 151.13 cm [facility] Other [employer] Other 04-07-2023 10:00-0400 Body mass index (BMI) [Ratio] 39.89 kg/m2 [facility] Other [employer] Other 04-07-2023 10:00-0400 Body weight 91.13 kg [facility] Other [employer] Other 04-07-2023 10:00-0400 Diastolic blood pressure 81 mm[Hg] [facility] Other [employer] Other 04-07-2023 10:00-0400 Respiratory rate 18 /min [facility] Other [employer] Other 04-07-2023 10:00-0400 SaO2% (BldA) [Mass fraction] 95 % [facility] Other [employer] Other 04-07-2023 10:00-0400 Systolic blood pressure 171 mm[Hg] [facility] Other [employer] Other 03-04-2023 11:00-0400 Body height 151.13 cm Jonathan [employer] Other [employer] Other 03-04-2023 11:00-0400 Body mass index (BMI) [Ratio] 39.48 kg/m2 Jonathan [employer] Other [employer] Other 03-04-2023 11:00-0400 Body weight 90.18 kg Jonathan Ball Other [employer] Other 03-04-2023 11:00-0400 Diastolic blood pressure 83 mm[Hg] Jonahtan Ball Other [employer] Other 03-04-2023 11:00-0400 Respiratory rate 12 /min Jonathan Ball Other [employer] Other 03-04-2023 11:00-0400 Systolic blood pressure 149 mm[Hg] Jonathan Ball Other [employer] Other 02-17-2023 08:45-0400 Body height 151.13 cm Nabor Omar II Other [employer] Other 02-17-2023 08:45-0400 Body mass index (BMI) [Ratio] 38.92 kg/m2 Nabor [place] Other [employer] Other 02-17-2023 08:45-0400 Body weight 88.91 kg Nabor [place] Other [employer] Other 11-25-2022 09:30-0400 Body height 151.13 cm Jonathan Ball Other [employer] Other 11-25-2022 09:30-0400 Body mass index (BMI) [Ratio] 39.04 kg/m2 Jonathan Ball Other [employer] Other 11-25-2022 09:30-0400 Body weight 89.18 kg Jonathan Ball Other [employer] Other 11-25-2022 09:30-0400 Diastolic blood pressure 82 mm[Hg] Jonathan Ball Other [employer] Other 11-25-2022 09:30-0400 Respiratory rate 16 /min Jonathan Ball Other [employer] Other 11-25-2022 09:30-0400 SaO2% (BldA) [Mass fraction] 97 % Jonathan Ball Other [employer] Other 11-25-2022 09:30-0400 Systolic blood pressure 144 mm[Hg] Jonathan Ball Other [employer] Other 10-15-2022 10:15-0500 Body height 151.13 cm George Ryan Other [employer] Other 10-15-2022 10:15-0500 Body mass index (BMI) [Ratio] 36.34 kg/m2 George Ryan Other [employer] Other 10-15-2022 10:15-0500 Body temperature 97.8 [degF] George Ryan Other [employer] Other 10-15-2022 10:15-0500 Body weight 83.01 kg George Ryan Other [employer] Other 10-15-2022 10:15-0500 Diastolic blood pressure 78 mm[Hg] George Ryan Other [employer] Other 10-15-2022 10:15-0500 SaO2% (BldA) [Mass fraction] 97 % George Ryan Other [employer] Other 10-15-2022 10:15-0500 Systolic blood pressure 132 mm[Hg] George Ryan Other [employer] Other 10-02-2022 14:45-0500 Body height 151.13 cm Jonathan Ball Other [employer] Other 10-02-2022 14:45-0500 Body mass index (BMI) [Ratio] 36.34 kg/m2 Jonathan Ball Other [employer] Other 10-02-2022 14:45-0500 Body weight 83.01 kg Jonathan Ball Other [employer] Other 10-02-2022 14:45-0500 Diastolic blood pressure 68 mm[Hg] Jonathan Ball Other [employer] Other 10-02-2022 14:45-0500 Respiratory rate 16 /min Jonathan Ball Other [employer] Other 10-02-2022 14:45-0500 Systolic blood pressure 130 mm[Hg] Jonathan Ball Other [employer] Other 10-01-2022 09:45-0500 Body height 151.13 cm George Ryan Other [employer] Other 10-01-2022 09:45-0500 Body mass index (BMI) [Ratio] 35.74 kg/m2 George Ryan Other [employer] Other 10-01-2022 09:45-0500 Body temperature 97.8 [degF] George Ryan Other [employer] Other 10-01-2022 09:45-0500 Body weight 81.65 kg George Ryan Other [employer] Other 10-01-2022 09:45-0500 Diastolic blood pressure 84 mm[Hg] George Langsj Other [employer] Other 10-01-2022 09:45-0500 SaO2% (BldA) [Mass fraction] 91 % George Del Realsj Other [employer] Other 10-01-2022 09:45-0500 Systolic blood pressure 148 mm[Hg] George Shelby Other [employer] Other 09-21-2022 10:15-0500 Body height 151.13 cm Jonathan Ball Other [employer] Other 09-21-2022 10:15-0500 Body mass index (BMI) [Ratio] 36.34 kg/m2 Jonathan Ball Other [employer] Other 09-21-2022 10:15-0500 Body weight 83.01 kg Jonathan Ball Other [employer] Other 09-21-2022 10:15-0500 Diastolic blood pressure 90 mm[Hg] Jonathan Ball Other [employer] Other 09-21-2022 10:15-0500 Respiratory rate 16 /min Jonathan Ball Other [employer] Other 09-21-2022 10:15-0500 Systolic blood pressure 148 mm[Hg] Jonathan Ball Other [employer] Other 09-17-2022 13:00-0500 Body height 151.13 cm George Shelby Other [employer] Other 09-17-2022 13:00-0500 Body mass index (BMI) [Ratio] 35.35 kg/m2 George Ryan Other [employer] Other 09-17-2022 13:00-0500 Body temperature 97.1 [degF] George Ryan Other [employer] Other 09-17-2022 13:00-0500 Body weight 80.74 kg George Del Realsj Other [employer] Other 09-17-2022 13:00-0500 Diastolic blood pressure 82 mm[Hg] George Del Realsj Other [employer] Other 09-17-2022 13:00-0500 SaO2% (BldA) [Mass fraction] 97 % George Del Realsj Other [employer] Other 09-17-2022 13:00-0500 Systolic blood pressure 160 mm[Hg] George Ryan Other [employer] Other 05-28-2022 09:15-0400 Body height 151.13 cm Nabor [place] Other [employer] Other 05-28-2022 09:15-0400 Body mass index (BMI) [Ratio] 35.35 kg/m2 Nabor Omar II Other [employer] Other 05-28-2022 09:15-0400 Body weight 80.74 kg Nabor Omar II Other [employer] Other 04-16-2022 09:15-0400 Body height 151.13 cm Nabor Omar II Other [employer] Other 04-16-2022 09:15-0400 Body mass index (BMI) [Ratio] 35.35 kg/m2 Nabor Rodríguezle II Other [employer] Other 04-16-2022 09:15-0400 Body weight 80.74 kg Nabor [place] II Other [employer] Other 03-18-2022 11:45-0400 Body height 151.13 cm Nabor Rodríguezle II Other [employer] Other 03-18-2022 11:45-0400 Body mass index (BMI) [Ratio] 35.54 kg/m2 Nabor Rodríguezle II Other [employer] Other 03-18-2022 11:45-0400 Body weight 81.19 kg Nabor Nelson II Other [employer] Other 03-03-2022 11:53-0400 Heart rate 95 /min DO Jonathan Ball Work Phone: [facility] 03-03-2022 11:53-0400 Respiratory rate 20 /min DO Jonathan Ball Work Phone: [facility] 03-03-2022 11:25-0400 Body temperature 99.2 [degF] DO Jonathan Ball Work Phone: [facility] 03-03-2022 11:25-0400 Diastolic blood pressure 81 mm[Hg] DO Jonathan Ball Work Phone: [facility] 03-03-2022 11:25-0400 Inhaled oxygen flow rate 2 L/min DO Jonathan Ball Work Phone: [facility] 03-03-2022 11:25-0400 SaO2% (BldA) [Mass fraction] 95 % DO Jonathan Ball Work Phone: [facility] 03-03-2022 11:25-0400 Systolic blood pressure 149 mm[Hg] DO Jonathan Ball Work Phone: [facility] 03-03-2022 06:00-0400 Body weight 83.8 kg DO Jonathan Ball Work Phone: [facility] 03-02-2022 10:15-0400 Body height 153.67 cm DO Jonathan Ball Work Phone: [facility] 03-02-2022 10:15-0400 Body mass index (BMI) [Ratio] 35.4 kg/m2 DO Jonathan Ball Work Phone: [facility] 02-11-2022 15:00-0400 Body height 151.13 cm Nabor [place] Other [employer] Other 02-11-2022 15:00-0400 Body mass index (BMI) [Ratio] 35.74 kg/m2 Nabor [place] Other [employer] Other 02-11-2022 15:00-0400 Body weight 81.65 kg Nabor [place] Other [employer] Other 11-20-2021 14:00-0500 Body height 151.13 cm Nabor [place] Other [employer] Other 11-20-2021 14:00-0500 Body mass index (BMI) [Ratio] 36.54 kg/m2 Nabor [place] Other [employer] Other 11-20-2021 14:00-0500 Body weight 83.46 kg Nabor [place] Other [employer] Other Encounters Encounter Date Encounter Type Care Provider Facility Start: 04-28-2024 End: 04-28-2024 ambulatory [facility] Work Phone: Start: 04-28-2024 End: 04-28-2024 Patient encounter procedure [facility] Work Phone: Start: 03-15-2024 Non-patient / Non-visit [facility] Work Phone: Start: 03-09-2024 End: 03-09-2024 ambulatory [facility] Work Phone: Start: 03-09-2024 End: 03-09-2024 Patient encounter procedure [facility] Work Phone: Start: 02-29-2024 End: 02-29-2024 ambulatory [facility] Work Phone: Start: 02-29-2024 End: 02-29-2024 Patient encounter procedure [facility] Work Phone: Start: 02-16-2024 End: 02-16-2024 ambulatory [facility] Work Phone: Start: 02-16-2024 End: 02-16-2024 Patient encounter procedure [facility] Work Phone: Start: 01-26-2024 End: 01-26-2024 ambulatory RAYMOND SAUCEDA Not Available Start: 01-11-2024 Non-patient / Non-visit [facility] Work Phone: Start: 01-06-2024 End: 01-06-2024 ambulatory [facility] Work Phone: Start: 01-06-2024 End: 01-06-2024 Patient encounter procedure [facility] Work Phone: Start: 01-05-2024 End: 01-05-2024 ambulatory [facility] Work Phone: Start: 01-05-2024 End: 01-05-2024 Patient encounter procedure [facility] Work Phone: Start: 12-21-2023 Non-patient / Non-visit [facility] Work Phone: Start: 12-09-2023 End: 12-09-2023 ambulatory DO Jonathan Smith Work Phone: [facility] Work Phone: Start: 12-09-2023 End: 12-09-2023 Patient encounter procedure DO Jonathan Smith Work Phone: [facility] Work Phone: Start: 12-06-2023 End: 12-06-2023 ambulatory Jonathan Smith Other [facility] [employer] Other Start: 12-06-2023 Telephone encounter Jonathan Smith [facility] Start: 11-23-2023 End: 11-23-2023 Patient encounter procedure DO Jonathan Smith Work Phone: [facility] Work Phone: Start: 11-17-2023 End: 11-17-2023 Patient encounter procedure DO Jonathan Smith Work Phone: [facility] Work Phone: Start: 11-16-2023 Non-patient / Non-visit DO Colton Smith Work Phone: [facility] Work Phone: Start: 09-21-2023 IBT FOR OBESITY GROU P 2-10 30M Massiel ePreira [facility] Start: 09-21-2023 End: 09-21-2023 ambulatory Jonathan Smith [facility] [employer] Other Start: 09-21-2023 Registered Recurring DO Olu in [place] Work Phone: [facility] Work Phone: Start: 09-21-2023 End: 09-21-2023 Patient encounter procedure DO Jonathan Smith Work Phone: [facility] Work Phone: Start: 09-14-2023 End: 09-14-2023 ambulatory Massiel Fitt Other [employer] Other Start: 09-14-2023 IBT FOR OBESITY GROU P 2-10 30M Massiel Fitt [facility] Start: 09-14-2023 End: 09-14-2023 Patient encounter procedure DO Jonathan Smith Work Phone: [facility] Work Phone: Start: 09-10-2023 End: 09-10-2023 ambulatory Jonathan Smith Other [employer] Other Start: 09-10-2023 Telephone encounter Jonathan Smith [facility] Start: 09-09-2023 End: 09-09-2023 ambulatory Jonathan Smith Other [employer] Other Start: 09-09-2023 Office outpatient vi sit 25 minutes Jonathan Ball [facility] Start: 08-19-2023 End: 08-19-2023 ambulatory Olayinka Ramos Other [employer] Other Start: 08-19-2023 Follow-up encounter Olayinka Ramos [facility] Start: 08-18-2023 End: 08-18-2023 ambulatory Jonathan Smith Other [employer] Other Start: 08-18-2023 Telephone encounter Jonathan Smith [facility] Start: 08-17-2023 End: 08-17-2023 ambulatory Jonathan Smith Other [employer] Other Start: 08-17-2023 Office outpatient vi sit 15 minutes Jonathan Ball [facility] Start: 08-03-2023 End: 08-03-2023 ambulatory Massiel Fitt Other [employer] Other Start: 08-03-2023 IBT FOR OBESITY GROU P 2-10 30M Massiel Fitt [facility] Start: 07-14-2023 End: 07-14-2023 ambulatory Jonathan Smith Other [employer] Other Start: 07-14-2023 Telephone encounter Jonathan Smith BECKI [facility] Start: 07-08-2023 End: 07-08-2023 ambulatory Olayinka Ramos Other [employer] Other Start: 07-08-2023 Telephone encounter Olayinka Keller [facility] Start: 07-06-2023 End: 07-06-2023 ambulatory Massiel Fitt Other [employer] Other Start: 07-06-2023 IBT FOR OBESITY GROU P 2-10 30M [facility] Start: 07-02-2023 End: 07-02-2023 ambulatory Jonathan Smith Other [employer] Other Start: 07-02-2023 Telephone encounter Jonathan Smith FP [facility] Start: 06-16-2023 End: 06-16-2023 ambulatory Olayinka Ramos Other [employer] Other Start: 06-16-2023 Follow-up encounter Olayinka Ramos [facility] Start: 06-09-2023 End: 06-09-2023 ambulatory Jonathan Smith Other [employer] Other Start: 06-09-2023 Office outpatient vi sit 25 minutes Jonathan Earl [facility] Start: 06-09-2023 Telephone encounter Jonathan Smith FP [facility] Start: 06-01-2023 End: 06-01-2023 ambulatory Massiel Fitt Other [employer] Other Start: 06-01-2023 IBT FOR OBESITY GROU P 2-10 30M [facility] Start: 05-25-2023 End: 05-25-2023 ambulatory Jonathan Smith Other [employer] Other Start: 05-25-2023 Telephone encounter Jonathan CONNELL [facility] Start: 05-12-2023 End: 05-12-2023 ambulatory Massiel Pereira Other [employer] Other Start: 05-12-2023 IBT FOR OBESITY GROU P 2-10 30M Massiel Randall [facility] Start: 05-05-2023 End: 05-05-2023 ambulatory Olayinka Richard Other [employer] Other Start: 05-05-2023 [facility] Start: 05-05-2023 Telephone encounter [facility]inka [facility] Start: 04-24-2023 End: 04-24-2023 ambulatory Jonathan Smith Other [employer] Other Start: 04-24-2023 Telephone encounter Jonathan CONNELL [facility] Start: 04-21-2023 End: 04-21-2023 ambulatory Jonathan Smith Facility:[facility] Start: 04-13-2023 End: 04-13-2023 ambulatory Jonathan Smith Other [employer] Other Start: 04-13-2023 Office outpatient vi sit 25 minutes Jonathan Smith [facility] Start: 04-08-2023 End: 04-08-2023 ambulatory Jonathan Smith Other [employer] Other Start: 04-08-2023 Telephone encounter Jonathan CONNELL [facility] Start: 04-07-2023 End: 04-07-2023 ambulatory Olayinka Ramos Other [employer] Other Start: 04-07-2023 Nutrition therapy Olayinka [facility] Start: 03-12-2023 End: 03-12-2023 ambulatory Jonathan Smith Other [employer] Other Start: 03-12-2023 Telephone encounter Jonathan CONNELL [facility] Start: 03-04-2023 End: 03-04-2023 ambulatory Jonathan Smith Other [employer] Other Start: 03-04-2023 Patient encounter procedure Jonathan Smith [facility] Start: 03-03-2023 Office outpatient vi sit 15 minutes Kiana Munson [facility] Start: 03-03-2023 End: 03-03-2023 Patient encounter procedure DO Jonathan Ball Work Phone: [facility] Start: 03-03-2023 End: 03-03-2023 ambulatory DO Jonathan Ball Work Phone: [facility] Work Phone: Start: 02-17-2023 End: 02-17-2023 Patient encounter procedure DO Jonathan Ball Work Phone: [facility] Start: 02-17-2023 End: 02-17-2023 ambulatory DO Jonathan Ball Work Phone: [facility] Work Phone: Start: 02-03-2023 End: 02-03-2023 Patient encounter procedure DO Jonathan Ball Work Phone: [facility]-Lab [address] Work Phone: Start: 01-21-2023 End: 01-22-[address] NABOR WILSON Facility:[facility] Start: 11-27-2022 Telephone encounter Jonathan Smith [facility] Start: 11-27-2022 End: 11-28-[address] NABOR WILSON [employer] Other Start: 11-25-2022 End: 11-25-2022 ambulatory Jonathan Earl Other [employer] Other Start: 11-25-2022 Office outpatient vi sit 25 minutes Jonahtan Ball [facility] Start: 10-28-2022 End: 10-28-2022 ambulatory Kiana Munson Other [employer] Other Start: 10-28-2022 Office outpatient vi sit 15 minutes Kiana Calvrosales [facility] Start: 10-15-2022 End: 10-15-2022 ambulatory George Ryan Other [employer] Other Start: 10-15-2022 Office outpatient vi sit 10 [address] [facility] Start: 10-08-2022 End: 10-08-2022 ambulatory DO Jonathan Ball Work Phone: [facility] Work Phone: Start: 10-08-2022 End: 10-08-2022 Patient encounter procedure DO Jonathan Ball Work Phone: [facility]-Lab [address] Work Phone: Start: 10-07-2022 End: 10-07-2022 ambulatory Kiana Munson Other [employer] Other Start: 10-07-2022 Office outpatient vi sit 15 minutes Kiana Ayalarosales [facility] Start: 10-05-2022 End: 10-06-[address] NABOR WILSON Facility: Start: 10-05-2022 End: 10-05-2022 ambulatory DO Jonathan Ball Work Phone: [facility] Work Phone: Start: 10-05-2022 End: 10-05-2022 Patient encounter procedure DO Jonathan Ball Work Phone: [facility]-CT Scan [address] [place] Work Phone: Start: 10-02-2022 End: 10-02-2022 ambulatory Jonathan Ball Other [employer] Other Start: 10-02-2022 Office outpatient vi sit [address] [facility] Start: 10-01-2022 End: 10-01-2022 ambulatory George Ryan Other [employer] Other Start: 10-01-2022 Office outpatient vi sit [address] [facility] Vascular Surgery Start: 09-29-[address] Jonathan Smith Facility:[facility] Start: 09-28-2022 End: 09-28-2022 ambulatory Jonathan Smith Other [employer] Other Start: 09-28-2022 Telephone encounter Jonathan Smith [facility] Start: 09-24-2022 End: 09-24-2022 ambulatory DO Jonathan Smith Work Phone: [facility] Work Phone: Start: 09-24-2022 End: 09-24-2022 Patient encounter procedure DO Jonathan Smith Work Phone: [facility]-Electrodiagnostics Work Phone: Start: 09-24-[address] Jonathan Smith Facility:[facility] Start: 09-23-2022 End: 09-23-2022 Patient encounter procedure DO Jonathan Smith Work Phone: [facility] Start: 09-23-2022 End: 09-23-2022 ambulatory DO Jonathan Smith Work Phone: [facility] Work Phone: Start: 09-23-2022 Office outpatient ne w 45 minutes Kiana Munson [facility] Start: 09-21-2022 End: 09-21-2022 ambulatory Jonathan Smith Other [employer] Other Start: 09-21-2022 Office outpatient vi sit 25 minutes Jonathan Smith [facility] Start: 09-17-2022 Office outpatient vi sit [address] [facility] V[facility] Surgery Start: 09-17-2022 End: 09-17-2022 ambulatory DO Jonathan Smith Work Phone: [facility] Work Phone: Start: 09-17-2022 End: 09-17-2022 Patient encounter procedure DO Jonathan Smith Work Phone: [facility]Ultrasound [place] [facility] Start: 09-08-2022 End: 09-08-2022 ambulatory DO Jonathan Smith Work Phone: [facility] Work Phone: Start: 09-08-2022 End: 09-08-2022 Patient encounter procedure DO Jonathan Smith Work Phone: [facility]-CT Scan [address] [place] Work Phone: Start: 08-31-2022 End: 09-01-[address] NABOR WILSON Facility:[facility] Start: 08-24-2022 Adult health examination Olayinka Ramos Other [employer] Other Start: 08-24-2022 Pre-procedure evaluation check Olayinka Ramos Other [employer] Other Start: 08-14-2022 End: 08-14-[address] JONATHAN SMITH Facility:[facility] Start: 08-13-2022 End: 08-14-[address] JONATHAN SMITH Facility:[facility] Start: 08-04-2022 End: 08-05-[address] NABOR WILSON Facility:[facility] Start: 06-09-2022 End: 06-10-[address] JONATHAN SMITH Facility:[facility] Start: 05-28-2022 (Post-Op) Post-Op Nabor Nelson II [facility] Start: 05-28-2022 End: 05-28-2022 ambulatory Nabor Nelson II Other [employer] Other Start: 05-28-2022 End: 05-28-2022 Patient encounter procedure DO Jonathan Earl Work Phone: [facility] Start: 05-17-2022 End: 05-20-2022 Evaluation and management of inpatient DR YOVANA RG Facility:[facility] Start: 04-16-2022 (Post-Op) Post-Op Nabor Omar II [facility] Start: 04-16-2022 End: 04-16-2022 ambulatory Nabor [place] II Other [employer] Other Start: 04-16-2022 End: 04-16-2022 Patient encounter procedure DO Jonathan Earl Work Phone: [facility] Start: 03-26-2022 (Post-Op) Post-Op Nabor [place] II [facility] Start: 03-26-2022 End: 03-26-2022 ambulatory Nabor Omar II Other [employer] Other Start: 03-24-2022 End: 04-15-[address] JONATHAN SMITH Facility:[facility] Start: 03-18-2022 (Post-Op) Post-Op Nabor [place] II [facility] Start: 03-18-2022 End: 03-18-2022 ambulatory Nabor [place] II Other [employer] Other Start: 03-18-2022 Telephone encounter Nabor Omar II [facility] Start: 03-04-2022 End: 03-04-2022 ambulatory Nabor Omar II Other [employer] Other Start: 03-04-2022 Telephone encounter Nabor [place] II [facility] Start: 03-02-2022 End: 03-03-2022 Admission to same day surgery center DO Jonathan Earl Work Phone: [facility]-Surgery Center [address] [place] Start: 02-27-2022 End: 02-27-2022 ambulatory Nabor [place] II Other [employer] Other Start: 02-27-2022 Telephone encounter Nabor [place] II [facility] Start: 02-26-2022 End: 02-26-2022 Patient encounter procedure DO Jonathan Ball Work Phone: [facility]-Pre-Surgical Testing Start: 02-20-2022 (Prolonged) Prolonge d Services Nabor Stollisle II [facility] Start: 02-20-2022 End: 02-20-2022 ambulatory Nabor [place] II Other [employer] Other Start: 02-11-2022 End: 02-11-2022 ambulatory Nabor Omar II Other [employer] Other Start: 02-11-2022 Patient encounter procedure Nabor Rodríguezle II [facility] Start: 01-30-2022 End: 01-31-[address] NONE LISTED REQUEST Facility: Start: 01-15-2022 End: 01-15-2022 ambulatory Nabor [place] II Other [employer] Other Start: 01-15-2022 Telephone encounter Nabor [place] II [facility] Start: 11-20-2021 End: 11-20-2021 ambulatory Nabor [place] II Other [employer] Other Start: 11-20-2021 Office outpatient ne w 60 minutes Nabor [place] II [facility] Procedures Date Procedure Procedure Detail Performing [...] replacement of left knee joint DO Jonathan [employer] Work Phone: Start: 03-02-2022 X-ray of left knee DO B enjamin Ball Work Phone: Start: 10-04-2018 Preoperative cardiov ascular examination [facility] Other Start: 10-04-2018 Preoperative pulmona ry examination [facility] Other Start: 06-29-2017 Screening for osteoporosis [employer] Start: 07-08-2015 General examination of patient [facility] Other Depression screening [facility] Other Plan of Treatment Date Care Activity Detail Author Start: 10-08-2022 Hemolytic complement CH50 level [facility] Start: 10-08-2022 [facility] Start: 03-03-[address] [facility] Work Phone: Start: 03-02-2022 Referral to clinical director fraud [facility] Work Phone: Start: 03-02-2022 Hospital admission [facility] Work Phone: Complement C3 [Mass/ volume] in Serum or Plasma [facility] Complement C4 [Mass/ volume] in Serum or Plasma [facility] Cryofibrinogen [Pres ence] in Plasma [facility] Cryoglobulin [Presence] in Serum [facility] IgA [Mass/volume] in Serum or Plasma [facility] IgE [Units/volume] i n Serum or Plasma [facility] IgG [Mass/volume] in Serum or Plasma [facility] IgM [Mass/volume] in Serum or Plasma [facility] Patient referral [facility] Work Phone: [facility] Immunizations Immunization Date Immunization Notes Care Provider Fa jaylyn 07-23-2023 influenza virus vaccine, unspecified formulation DO Josey Ellis [employer] Work Phone: [facility] 07-23-2023 influenza, high dose seasonal, preservative-free Massielcorwin Pereira Other [employer] Other 07-09-2021 COVID-19 mRNA-1273 (Moderna) DO Josey Ellis [employer] Work Phone: [facility] 06-16-2021 influenza virus vaccine, split virus (incl. purified surface antigen) Olayinka Ramos Other [employer] Other 06-16-2021 influenza virus vaccine, unspecified formulation DO Josey Ellis [employer] Work Phone: [facility] 10-16-2020 COVID-19 mRNA-1273 (Moderna) DO Josey Ellis [employer] Work Phone: [facility] 09-19-2020 COVID-19 mRNA-1273 (Moderna) DO Josey Ellis [employer] Work Phone: [facility] 05-21-2020 pneumococcal conjuga te vaccine, 13 valent Olayinka Ramos Other [facility] 06-26-2019 influenza, seasonal, injectable [facility] 06-06-2018 influenza, injectabl e, quadrivalent, preservative free [facility] 09-16-2015 pneumococcal polysaccharide vaccine, 23 valent Jonathan Smith Other [facility] 06-28-2013 tetanus and diphther ia toxoids, adsorbed, preservative free, for adult use (5 Lf of tetanus toxoid and 2 Lf of diphtheria toxoid) Olayinka Ramos Other [facility] 06-14-2012 zoster vaccine, live Whitney Smith Other [facility] 08-07-2009 pneumococcal conjuga te vaccine, 7 valent Jonathan Smith Other [facility] 08-07-2009 pneumococcal Conjuga te, unspecified formulation DO Jonathan Smith Work Phone: [facility] 08-02-2009 novel [id number], preservative-free, injectable [facility] 07-17-2009 pneumococcal polysaccharide vaccine, 23 valent Olayinka Ramos Other [facility] Payers Date Payer Category Payer Self-pay [id number] 1960 Medicare [id number] 2.1 [id number] 1960 Self-pay [id number] 1960 Unknown [id number] . [id number] 1954 Unknown [id number] .16. [id number] 1954 Unknown [id number] 2.16.84 0.1.604271.3.579.2.593 1954 Unknown [id number] 2.16.84 0.1.912830.3.579.2.593 1954 Unknown [id number] 2.16.84 0.1.921639.3.579.2.593 1954 Unknown [id number] 2.16.84 0.1.798674.3.579.2.593 1954 Unknown [id number] 2.16.84 0.1.231514.3.579.2.593 1954 Unknown [id number] 2.16.84 0.1.807637.3.579.2.593 1954 Unknown [id number] 2.16.84 0.1.521253.3.579.2.593 1954 Unknown [id number] 2.16.84 0.1.890134.3.579.2.593 1954 Unknown [id number] 2.16.84 0.1.335707.3.579.2.593 1954 Unknown [id number] 2.16.84 0.1.999299.3.579.2.593 1954 Unknown [id number] 2.16.84 0.1.283444.3.579.2.1259 Unknown [facility] [id number] Unknown Unknown [id number] 2.16.84 0.1.887437.3.579.2.593 Unknown [id number] 2.16.8 40.1.924707.3.579.2.531 Unknown [id number] 2.16.8 40.1.603906.3.579.2.531 Unknown [id number] 2.16.8 40.1.613641.3.579.2.531 Unknown [id number] 2.16.8 40.1.445680.3.579.2.531 Social History Date Type Detail Facility Unknown if ever smoked [employer] Other Sex Assigned At Sex Assigned At Bir [employer] Other Start: 03-02-2022 End: 03-02-2022 Tobacco smoking status WYIS Ex-smoker (finding) [facility] Start: 1955 Sex Assigned At Female [facility] Start: 03-06-2024 Tobacco smoking status NHIS Never smoked tobacco (finding) [facility] Medical Equipment Procedure Code Equipment Code Equipment Origin al Text Equipment Identifier Dates Arthroplasty, knee, total, minimally invasive Orthopaedic cement, non-medicated [id number] FDA Start: 03-02-2022 Arthroplasty, knee, total, minimally invasive Orthopaedic cement, non-medicated ()[id number] FDA Start: 03-02-2022 Arthroplasty, knee, total, minimally invasive Uncoated knee femur prosthesis ()[id number] FDA Start: 03-02-2022 Arthroplasty, knee, total, minimally invasive Tibial insert ()[id number] FDA Start: 03-02-2022 Arthroplasty, knee, total, minimally invasive Uncoated knee tibia prosthesis, metallic ()[id number] FDA Start: 03-02-2022 Arthroplasty, knee, total, minimally invasive Polyethylene patella prosthesis ()[id number] FDA Start: 03-02-2022 Arthroplasty, knee, total, minimally invasive Knee stem ()[id number] FDA Start: 03-02-2022 Goals Date Patient Goal Desired Activity /State Functional Status Date Assessment Result Facility 03-03-2022 Functional status Patient at Baseline [facility] Work Phone: Mental Status Date Assessment Result Facility 03-03-2022 Cognitive function Cognitive Sta tus Patient at Baseline [facility] Work Phone: Clinical Notes 11-20-2021 to [...] Our exercise program was recommended with our director of convention services/obesity exercise group. Handout given. Our free weekly [...] and benefits of prescribed meds discussed. Initial prqo-[id number] interview/evaluation. The patient was counseled in detail on the options for weight loss in an individual setting. [ ] minutes was spent caring for the patient, counseling/educating patient on the options for the treatment of obesity and related healthcare issues. The program's treatment goals were reviewed with the patient. Each aspect of the program was discussed with the patient. [facility] Work Phone: [phone] 396-755901-09-2024 Evaluation note* Encounter Date Diagnosis Assessment Notes [...] impact gut health (D) Probiotics and Prebiotics [employer] Other 01-02-2024 Evaluation note* Encounter Date Diagnosis Assessment Notes Treatment Notes Treatment Clinical Notes Sep, Obesity, unspecified classification, unspecified obesity type, unspecified whether serious comorbidity present (ICD-10 - E66.9) Sep, BMI 33.0-33.9,adult (ICD-10 - Z68.33) Sep, Other Summary of Visi t: (A) Acute vs Chronic Inflammation (B) Inflammation's connection to chronic disease (C) Food's relationship to inflammation (D) Anti Inflammatory foods [employer] Other 2023 Evaluation note* Encounter Date Diagnosis Assessment Notes Treatment Notes Treatment Clinical Notes Aug, Cervical spondylosis (ICD-10 - M47.812) [employer] Other 12-28-2023 Evaluation note* Encounter Date Diagnosis [...] use, the patient reduces the risk for PR, CVA, HTN, cardiac dysrhythmias and sudden cardiac [...] index [BMI] 35.0-35.9, adult (ICD-10 - Z68.35) [employer] Other 12-07-2023 Evaluation note* Encounter Date Diagnosis [...] Patient without side effect-A1c 5.9% February 2023 -[place] [employer] membership, working with physical fitness trainer -Follow up in clinic in 12 weeks -Patient reports highest A1c of 6.7% subjectivelyThis note was created with voice recognition software. Please excuse errors in hearing consultant. Aug, Dietary surveillance and counseling (ICD-10 - [...] 6.7% subjectivelyContinue with Ozempic. Denies side effects [employer] Other 12-05-2023 Evaluation note* Encounter Date Diagnosis [...] needed. Notify office w/ any s/s infection [employer] Other 11-21-2023 Evaluation note* Encounter Date Diagnosis [...] variety means for them and tip sharing [employer] Other 10-24-2023 Evaluation note* Encounter Date Diagnosis [...] patient set personal goal using given handout. [employer] Other 10-04-2023 Evaluation note* Encounter Date Diagnosis [...] 2 mg once weekly.-A1c 5.9% February 2023 -[place] [employer] membership, working with physical fitness trainer -Follow up in clinic in 8 weeks -Patient reports highest A1c of 6.7% subjectivelyThis note was created with voice recognition software. Please excuse errors in hearing consultant. Jun, Dietary surveillance and counseling (ICD-10 - [...] 6.7% subjectivelyContinue with Ozempic. Denies side effects [employer] Other 09-27-2023 Evaluation note* Encounter Date Diagnosis [...] use, the patient reduces the risk for PR, CVA, HTN, cardiac dysrhythmias and sudden cardiac [...] [BMI ] 35.0-35.9, adult (ICD-10 - Z68.35) [employer] Other 09-19-2023 Evaluation note* Encounter Date Diagnosis [...] fat, etc.) (D) Identifying whole grain products [employer] Other 09-12-2023 Evaluation note* Encounter Date Diagnosis Assessment Notes Treatment Notes Treatment Clinical Notes May, Mucopurulent chronic bronchitis (ICD-10 - J41.1) [employer] Other 08-30-2023 Evaluation note* Encounter Date Diagnosis [...] Patient set the following goals: NOT REVIEWED [employer] Other 08-23-2023 Evaluation note* Encounter Date Diagnosis [...] titrate up as tolerated-A1c 5.9% February 2023 -[employer] membership -Follow up in clinic in 6 weeks -Patient reports highest A1c of 6.7% subjectivelyThis note was created with voice recognition software. Please excuse errors in hearing consultant. Apr, Dietary surveillance and counseling (ICD-10 - [...] with the patient, and documenting clinical information. [employer] Other 08-12-2023 Evaluation note* Encounter Date Diagnosis Assessment Notes Treatment Notes Treatment Clinical Notes Apr, PSVT (paroxysmal supraventricular tachycardia) (ICD-10 - I47.1) [employer] Other 08-01-2023 Evaluation note* Encounter Date Diagnosis [...] use, the patient reduces the risk for PR, CVA, HTN, cardiac dysrhythmias and sudden cardiac [...] PSVT (paroxysmal supraventricular tachycardia) (ICD-10 - I47.1) [employer] Other 07-26-2023 Evaluation note* Encounter Date Diagnosis [...] voice recognition software. Please excuse errors in hearing consultant. Mar, Dietary surveillance and counseling (ICD-10 - [...] with the patient, and documenting clinical information. [employer] Other 06-22-2023 Evaluation note* Encounter Date Diagnosis [...] use, the patient reduces the risk for PR, CVA, HTN, cardiac dysrhythmias and sudden cardiac [...] - Z85.3) B/L mastectomy. No s/s recurrence [employer] Other 06-21-2023 Evaluation note* Encounter Date Diagnosis [...] tolerated the injection well without adverse reaction. [employer] Other 06-07-2023 Evaluation note* Encounter Date Diagnosis Assessment Notes Treatment Notes Treatment Clinical Notes Feb, Aftercare following joint replacement surgery (ICD-10 - Z47.1) Feb, Presence of left artificial knee joint (ICD-10 - Z96.652) Feb, Other [facility] L TKA at [facility] on 03/02/2022 Happy with surgical result Follow up as needed with standing AP and lateral xrays of the left knee Patient instructed to call with any questions or concerns. [employer] Other 03-17-2023 Evaluation note* Encounter Date Diagnosis Assessment Notes Treatment Notes Treatment Clinical Notes Nov, Stage 3a chronic kidney disease (ICD-10 - N18.31) [employer] Other 03-15-2023 Evaluation note* Encounter Date Diagnosis [...] as needed, push fluids. Continue LAMA/LABA Restart KELIVN as needed to clear secretions and improve breathlessness. Increase activity and work on weight reduction Nov, Impaired fasting glucose (ICD-10 - R73.01) Healthy diet, increase activity and work on reduction of weight. A1C every 6mo Nov, Obstructive sleep apnea (adult) (pediatric) (ICD-10 - G47.33) This patient is aware of the benefits associated with IVONE: With continued use, the patient reduces the risk for PR, CVA, HTN, cardiac dysrhythmias and sudden cardiac [...] appears to be in remission Restarting biologics. [employer] Other 02-15-2023 Evaluation note* Encounter Date Diagnosis [...] dorsal aspect of her right ring finger. [employer] Other 02-02-2023 Evaluation note* Encounter Date Diagnosis [...] plan. All of her questions were addressed. [employer] Other 01-25-2023 Evaluation note* Encounter Date Diagnosis Assessment Notes Treatment Notes Treatment Clinical Notes Sep, Lesion of finger (ICD-10 - L98.9) Patient is progressing well. Continue local wound care as previously instructed with neosporin. Continue blood thinner as prescribed. Continue to follow up with vascular for blood flow tests and rheumatology. Call with questions/concerns. Sep, Ischemia (ICD-10 - I99.8) [employer] Other 01-20-2023 Evaluation note* Encounter Date Diagnosis [...] otherwise completely resolved. Etiology remains a mystery [employer] Other 01-19-2023 Evaluation note* Encounter Date Diagnosis [...] thrombus. I am recommending she see a predictive maintenance specialist for the severe calcification identified on her [...] specified soft tissue disorders (ICD-10 - M79.89) [employer] Other 01-16-2023 Evaluation note* Encounter Date Diagnosis Assessment Notes Treatment Notes Treatment Clinical Notes Sep, Essential (primary) hypertension (ICD-10 - I10) [employer] Other 01-11-2023 Evaluation note* Encounter Date Diagnosis [...] treatment plan. Sep, Ischemia (ICD-10 - I99.8) [employer] Other 01-09-2023 Evaluation note* Encounter Date Diagnosis [...] prior to bedtime. Weight loss. Continue PPI [employer] Other 01-05-2023 Evaluation note* Encounter Date Diagnosis [...] digits o f hand (ICD-10 - I99.8) [employer] Other 09-15-2022 Evaluation note* Encounter Date Diagnosis Assessment Notes Treatment Notes Treatment Clinical Notes May, Aftercare following joint replacement surgery (ICD-10 - Z47.1) May, Presence of left artificial knee joint (ICD-10 - Z96.652) May, Status post left knee replacement (ICD-10 - Z96.652) May, Other [facility] L TKA at [facility] on 03/02/2022 Doing well. As I explained to her I am comfortable with her restarting her rheumatological medications if her and her cake puller feel like she needs them. As we [...] to call with any questions or concerns. [employer] Other 08-04-2022 Evaluation note* Encounter Date Diagnosis Assessment Notes Treatment Notes Treatment Clinical Notes Apr, Aftercare following joint replacement surgery (ICD-10 - Z47.1) Apr, Presence of left artificial knee joint (ICD-10 - Z96.652) Apr, Status post left knee replacement (ICD-10 - Z96.652) Apr, Other [facility] L TKA at [facility] on 03/02/2022 Doing well. No concerns for [...] continue it at this time. Continue taking [id number] anti-inflammatories as needed for assistance with swelling and pain associated with the operative extremity. Follow-up in 6 weeks for repeat examination and long standing x-rays. [employer] Other 07-14-2022 Evaluation note* Encounter Date Diagnosis Assessment Notes Treatment Notes Treatment Clinical Notes Mar, Aftercare following joint replacement surgery (ICD-10 - Z47.1) Mar, Presence of left artificial knee joint (ICD-10 - Z96.652) Mar, Status post left knee replacement (ICD-10 - Z96.652) Mar, Other [facility] TKA at [facility] on 03/02/2022 Doing really well. Zipline removed today. As we had discussed preoperatively and as her cake puller had recommended, we will plan for her [...] 3 view x-rays of the left knee. [employer] Other 07-06-2022 Evaluation note* Encounter Date Diagnosis Assessment Notes Treatment Notes Treatment Clinical Notes Mar, Aftercare following joint replacement surgery (ICD-10 - Z47.1) [employer] Other 07-06-2022 Evaluation note* Encounter Date Diagnosis Assessment Notes Treatment Notes Treatment Clinical Notes Mar, Aftercare following joint replacement surgery (ICD-10 - Z47.1) Mar, Presence of left artificial knee joint (ICD-10 - Z96.652) Mar, Status post left knee replacement (ICD-10 - Z96.652) Mar, Other [facility] TKA at [facility] on 03/02/2022 Doing well. Given her history [...] 3 view x-rays of the left knee. [employer] Other 06-17-2022 Evaluation note* Encounter Date Diagnosis Assessment Notes Treatment Notes Treatment Clinical Notes Feb, Arthritis of left knee (ICD-10 - M17.12) [employer] Other 06-10-2022 Evaluation note* Encounter Date Diagnosis [...] patient could proceed with surgery safely. The patient manager was vital for surgery timing and [...] plans. Prolonged services time spent: 32 minutes [employer] Other 06-01-2022 Evaluation note* Encounter Date Diagnosis Assessment Notes Treatment Notes Treatment Clinical Notes Feb, Other osteoporosis without current pathological fracture (ICD-10 - M81.8) Feb, Arthritis of left knee (ICD-10 - M17.12) Feb, Other correction (current) drug therapy (ICD-10 - Z79.899) Feb, Other 1. Left TKA Home Medications - DVT prophylaxis: Aspirin - NSAID: Celebrex versus prednisone 5 mg x 10-day postop. She tells me she has a history of CKD but we will await her creatinine level from [facility] before making a final decision on NSAID usage perioperatively. - Disposition: Inpatient Joints Meeting Checklist - Pharmacy: [facility] to bed - Approach/Technique: VANESSA - [...] going to proceed with surgery on 03/02. [employer] Other 03-10-2022 Evaluation note* Encounter Date Diagnosis Assessment Notes Treatment Notes Treatment Clinical Notes Nov, Acute pain of left knee (ICD-10 - M25.562) Nov, Other osteoporosis without current pathological fracture (ICD-10 - M81.8) Nov, Other correction (current) drug therapy (ICD-10 - Z79.899) Nov, [...] consider doing that with leflunomide as well. [employer] Other Evaluation noteNo InformationNortShriners Hospit[facility] [employer] Other evaluation note* Diagnosis Onset Date Resolution Status COPD (chronic obstructive pulmonary disease) acute High cholesterol acute Hypertension acute Sleep apnea with use of cont inuous positive airway pressure (CPAP) acute Status post left knee replacement acute [facility] Work Phone: Evaluation noteNo assessment information available [facility] Work Phone: Evaluation note* Diagnosis Onset Date Resolution Status Dietary surveillance and counseling acute Exercise counseling acute Obesity, Class II, BMI 35-39.9 acute Type 2 diabetes mellitus acu te [facility] Work Phone: Evaluation note* Diagnosis Onset Date Resolution Status Dietary surveillance and counseling acute Exercise counseling acute Chronic bronchitis, mucopurulent acute Lumbar spondylosis acute Mixed hyperlipidemia acute Obesity acute Primary hypertension acute PSVT (paroxysmal supraventricular tachycardia) acute Type 2 diabetes mellitus with hyperglycemia acute Neck muscle spasm acute Neck pain acute [facility] Work Phone: Evaluation note* Diagnosis Onset Date Resolution Status Chronic bronchitis, mucopurulent acute Lumbar spondylosis acute Mixed hyperlipidemia acute Obesity acute Primary hypertension acute PSVT (paroxysmal supraventricular tachycardia) acute Type 2 diabetes mellitus with hyperglycemia acute Neck muscle spasm acute Neck pain acute [facility] Work Phone: Evaluation note* Diagnosis Onset Date Resolution Status Chronic bronchitis, mucopurulent acute Lumbar spondylosis acute Mixed hyperlipidemia acute Obesity acute Primary hypertension acute PSVT (paroxysmal supraventricular tachycardia) acute Type 2 diabetes mellitus with hyperglycemia acute Neck muscle spasm acute Neck pain acute Dietary surveillance and counseling acute Exercise counseling acute [facility] Work Phone: Evaluation note* Diagnosis Onset Date Resolution Status Neck muscle spasm acute Neck pain acute Dietary surveillance and counseling acute Exercise counseling acute Chronic bronchitis, mucopurulent acute Lumbar spondylosis acute Mixed hyperlipidemia acute Obesity acute Primary hypertension acute PSVT (paroxysmal supraventricular tachycardia) acute Type 2 diabetes mellitus with hyperglycemia acute [facility] Work Phone: History general Narrative - Reported* [...] History Bilateral Myringotomy and Tube Placement 2012 [employer] Other History general Narrative - Reported* Type [...] Arthroscopy 202 2 Hospitalization History See Above [employer] Other History general Narrative - Reported* Type [...] Arthroplasty 20 22 Hospitalization History See Above [employer] Other History general Narrative - Reported* Type [...] Arthroplasty 20 22 Hospitalization History See Above [employer] Other Hospital Discharge [facility] Work Phone: Reason for referral (narrative)* Reason Referral for fractur e of proximal phalanx of 2nd and 3rd toe of the right foot. Diagnosis 1 Closed nondisplaced fracture of proximal phalanx of lesser toe of right foot, initial encounter (S92.514A) Referral Organization [facility] Dali granados Referring Provider First Name Jonathan Referring Provider Last Name Earl Referring Provider Specialty Internal Me dicine Referred Organization [facility] Referred Provider Donta Elias Referred Address [address], [place],[address] Referred Provider Specialty Podiatry - S urgical Chiropody Referral Priority Routine General Notes Patient being referr ed for evaluation and treatment of an acute nondisplaced fracture of the proximal phalanx of the 2nd and 3rd toe of the right foot. There is mention of extension into the joint space [employer] Other Chief Complaint and Reason for Visit [...] ap ptsH & P LEFT TOTAL KNEE [id number] InformationPOST OP MEDSNo InformationPOST OP LTK FOLLOW UP1 WK WOUND CHECK3 WEEK RECHECK6 WK WX2 WK FOLLOW UP; CTA [facility] 09/08/22, CAROTID DUPLEX 11:30Aopen sore on ring fingerRight Ring Finger IschemiaRefillTo go over Echocardiogrambumps on left armRecheck Right Hand2 WK FOLLOW UP; CT SCAN [facility] 10/05/22[facility] Right Hand3 MONTH FOLLOW UPNo InformationRecgood sam[facility] hospital LTKAWELLNESSLab/Test Results4 WEEK RECHECKInitial WMNRefillAMS Diabetes diagnosis [...] End: January 05, 2024 Carolyn Lees APRN [employer]-C Attending Provider Act toñito Start: January 05, [...] RN Other Provider Active Radha Presley , RN Other Provider Active Melvi Gonzalez [...] MD Other Provider Active Teagan Fay , [employer]-C Other Provider Active Chung Mary MD Other [...] Status Dates Massiel Correat - Refer , [facility] Attending Provider Active Start: September 14, 2023 End: September 14, 2023 Team Status: Inactive Member Role Status Dates Massiel Correat - Refer , [facility] Attending Provider Active Start: September 21, 2023 [...] section and content) DATE CREATED AUTHOR 11/14/2022 [facility] DATE CREATED AUTHOR AUTHOR'S ORGANIZ ATION 01/25/2023 [facility] DATE CREATED AUTHOR AUTHOR'S ORGANIZ ATION 01/28/2024 [facility] EPIC DATE CREATED AUTHOR AUTHOR'S ORGANIZ ATION 02/14/2024 [facility] FOR RECORDS PERTAINING TO PATIENTS [...] BE BASED ON THE PRIMARY CLINICAL RECORDS. [employer] [facility]. provides no warranty or guarantee of the accuracy or completeness of information in this document.
[2024-06-07 18:47] LABS: Basophils Absolute Auto 0.1 10^3/uL (0.0-0.1); Basophils Percent Auto 0.6 % (0.2-2.0); Eosinophils Absolute Auto 0.3 10^3/uL (0.0-0.7); Eosinophils Percent Auto 2.7 % (0.9-7.0); Hematocrit 41.3 % (36.0-48.0); Hemoglobin 13.7 g/dL (12.0-16.0); Immature Granulocytes Abs Auto 0.02 10^3/uL (0.00-0.03); Immature Granulocytes Pct Auto 0.2 % (0.0-0.5); Lymphocytes Absolute Auto 3.4 10^3/uL (1.2-3.8); Lymphocytes Percent Auto 34.6 % (20.5-60.0); Mean Corpuscular HGB Conc 33.2 g/dL (29.9-35.2); Mean Corpuscular Volume 90.6 fL (81.0-99.0); Monocytes Absolute Auto 1.1 10^3/uL (0.3-0.8); Monocytes Percent Auto 11.4 % (1.7-12.0); Neutrophils Percent Auto 50.5 % (43.0-75.0); Platelet Count 227 10^3/uL (150-450); Red Blood Count 4.56 10^6/uL (4.20-5.40); Red Cell Distribution Width 12.7 % (11.0-15.0); White Blood Count 9.8 10^3/uL (4.0-11.0)
--- NOTE | 2024-06-07 18:53 | CT_ITS ---
[address] [address] Patient Name: XAVIER NEGRON MRN: [id number] date: 1955 Sex: F Assigned Patient Location: ER Current Patient Location: ER Accession/Order Number: [id number] Exam Date: 06/07/2024 18:42 Report Date: 06/07/2024 20:06 At the request of: ERIS HART Procedure: CT cervical spine wo con EXAM: CT cervical spine wo con HISTORY: Fall with head injury. TECHNIQUE: Axial CT scans through the cervical spine were obtained without contrast administration. Sagittal and coronal reconstruction images were obtained. Dose reduction techniques were achieved by using: automated exposure control and/or adjustment of mA and /or kV according to patient size and/or the use of an iterative reconstruction technique. COMPARISON: None. FINDINGS: No acute fracture or posttraumatic malalignment is shown. Reversal of cervical lordosis is present. Decreased disc height and discovertebral complexes is from C4 to C7 without central spinal stenosis. Moderate left C2-C3 facet arthropathy. Mild bilateral C3-C4 facet arthropathy with slight degenerative spondylolisthesis of C3 on C4. Moderate to severe stenosis of the right C4-C5 and C5-C6 neural foramina and moderate stenosis of the left C5-C6 and right C6-C7 neural foramina secondary to decreased disc height and uncovertebral hypertrophy. The prevertebral soft tissue space appears normal. Visualized intracranial contents show an old lacunar infarct in the right cerebellar hemisphere. The visualized neck shows no adenopathy. Visualized lung apices are clear. CT/CT cervical spine wo con IMPRESSION: No acute fracture or posttraumatic malalignment. Reversal of cervical lordosis, likely due to positioning or muscle spasm. Discovertebral degenerative changes in from C4 C7 without central spinal stenosis. Moderate to severe stenosis of the right C4-C5 and C5-C6 neural foramina and moderate stenosis of the left C5-C6 and right C6-C7 neural foramina. 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 Electronically authenticated by: MARTÍNEZ PACHECO Date: 06/07/2024 20:06
--- NOTE | 2024-06-07 18:53 | CT_ITS ---
[address] [address] Patient Name: XAVIER NEGRON MRN: [id number] date: 1955 Sex: F Assigned Patient Location: ER Current Patient Location: [facility] Accession/Order Number: [id number] Exam Date: 06/07/2024 18:42 Report Date: 06/07/2024 19:58 At the request of: ERIS HART Procedure: CT facial bones wo con EXAM: CT head/brain wo con, CT facial bones wo con HISTORY: Fall striking the left side of the head. TECHNIQUE: Axial CT scans through the head and maxillofacial structures were obtained without IV contrast administration. Coronal and sagittal reformations were performed. Dose reduction techniques were achieved by using: automated exposure control and/or adjustment of mA and /or kV according to patient size and/or the use of an iterative reconstruction technique. HEAD CT COMPARISON: None. FINDINGS: The cerebral hemispheres have normal white and adams matter and corticomedullary differentiation. To the limit of CT, the posterior fossa appears unremarkable. The ventricular system and cortical sulci are normal for the patient's age. No area of abnormal mass-effect or edema or intracranial hemorrhage. A very large left frontal scalp hematoma. CT/CT facial bones wo con IMPRESSION: No acute intracranial process. A very large left frontal scalp hematoma. -- MAXILLOFACIAL CT FINDINGS: No acute maxillofacial fracture is present. Paranasal sinuses are clear. The intraorbital contents appear normal. Visualized opinion polls survey worker spaces appear normal. Parapharyngeal spaces appear clear. The visualized neck shows no adenopathy. The craniovertebral junction appears normal. Middle ear cavities are clear. Poor pneumatization of the right mastoid. The left mastoid is clear. IMPRESSION: No acute maxillofacial fracture. Electronically authenticated by: MARTÍNEZ PACHECO Date: 06/07/2024 19:58
--- NOTE | 2024-06-07 18:53 | CT_ITS ---
[address] [address] Patient Name: XAVIER NEGRON MRN: [id number] date: 1955 Sex: F Assigned Patient Location: ER Current Patient Location: [facility] Accession/Order Number: [id number] Exam Date: 06/07/2024 18:42 Report Date: 06/07/2024 19:58 At the request of: ERIS HART Procedure: CT head/brain wo con EXAM: CT head/brain wo con, CT facial bones wo con HISTORY: Fall striking the left side of the head. TECHNIQUE: Axial CT scans through the head and maxillofacial structures were obtained without IV contrast administration. Coronal and sagittal reformations were performed. Dose reduction techniques were achieved by using: automated exposure control and/or adjustment of mA and /or kV according to patient size and/or the use of an iterative reconstruction technique. HEAD CT COMPARISON: None. FINDINGS: The cerebral hemispheres have normal white and adams matter and corticomedullary differentiation. To the limit of CT, the posterior fossa appears unremarkable. The ventricular system and cortical sulci are normal for the patient's age. No area of abnormal mass-effect or edema or intracranial hemorrhage. A very large left frontal scalp hematoma. CT/CT head/brain wo con IMPRESSION: No acute intracranial process. A very large left frontal scalp hematoma. -- MAXILLOFACIAL CT FINDINGS: No acute maxillofacial fracture is present. Paranasal sinuses are clear. The intraorbital contents appear normal. Visualized home health travel pt spaces appear normal. Parapharyngeal spaces appear clear. The visualized neck shows no adenopathy. The craniovertebral junction appears normal. Middle ear cavities are clear. Poor pneumatization of the right mastoid. The left mastoid is clear. IMPRESSION: No acute maxillofacial fracture. Electronically authenticated by: MARTÍNEZ PACHECO Date: 06/07/2024 19:58
[2024-06-07 19:04] LABS: INR 1.01; Prothrombin Time 10.7 sec (9.0-11.6)
[2024-06-07 19:08] LABS: Alanine Aminotransferase 24 U/L (14-59); Albumin Globulin Ratio 1.1; Albumin Level 3.9 g/dL (3.4-5.0); Alkaline Phosphatase 73 U/L (46-116); Anion Gap 15.7; Aspartate Amino Transferase 23 U/L (15-37); BUN Creatinine Ratio 22.9; Bilirubin Total 0.2 mg/dL (0.2-1.0); Calcium 10.7 mg/dL (8.5-10.1); Carbon Dioxide 23.3 mmol/L (21.0-32.0); Chloride 101 mmol/L (98-107); Estimated GFR (African America 44 (>=60); Estimated GFR (Non-African Ame 36 (>=60); Ethanol 263 mg/dL; Globulin 3.5 g/dL; Glucose 95 mg/dL (74-106); Sodium 136 mmol/L (136-145); Total Protein 7.4 g/dL (6.4-8.2)
[2024-06-07] MEDS: SODIUM CHLORIDE 0.9% IRRIG SOLUTION 1,000 ML BOTTLE 1000 ML IRR (19:15)
[2024-06-07] MEDS: ADACEL DIPH,PERTUSS(ACELL),TET VAC/PF 0.5 ML ADULT SYRINGE IM (19:16)
[2024-06-07] MEDS: CEFAZOLIN SODIUM/DEXTROSE,ISO 1 GM/50 ML PREMIX IV (19:20)
[2024-06-07] MEDS: 0.9 % SODIUM CHLORIDE 1,000 ML 1000 ML IV (19:20)
[2024-06-07] MEDS: LIDOCAINE HCL 1%-EPINEPHRINE 1:100,000 20 ML MDV 10 ML INJ (19:58)
--- NOTE | 2024-06-07 20:15 | XR_ITS ---
The [address] [address] Patient Name: XAVIER NEGRON MRN: [id number] date: 1955 Sex: F Assigned Patient Location: ER Current Patient Location: Accession/Order Number: [id number] Exam Date: 06/07/2024 20:22 Report Date: 06/07/2024 21:44 At the request of: ERIS HART Procedure: XR finger LT min 2V XR finger LT min 2V, 06/07/2024 7:22 PM CDT: History: fall. . Comparison: None. Technique: 3 views of the left fifth finger Findings/Impression: There is an acute nondisplaced fracture through the base of the middle phalanx. There is soft tissue swelling throughout the fifth finger. There is degenerative change of the interphalangeal joints. Electronically authenticated by: NABOR SOLANO Date: 06/07/2024 21:44
--- NOTE | 2024-06-07 20:39 | ECG_ITS ---
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
== END 2024-06-07 21:18 | disposition short-term general hospital (02) ==
PROVIDERS: Physician Assistant; Emergency Provider Emergency Medicine; PCP Internal Medicine
DX: S09.8XXA Other specified injuries of head, initial encounter (principal); S01.01XA Laceration without foreign body of scalp, initial encounter; F10.129 Alcohol abuse with intoxication, unspecified; Y90.8 Blood alcohol level of 240 mg/100 ml or more; S00.03XA Contusion of scalp, initial encounter; Z79.02 Long term (current) use of antithrombotics/antiplatelets; W01.198A Fall on same level from slipping, tripping and stumbling with subsequent striking against other object, initial encounter; Z23 Encounter for immunization
CPT/HCPCS: 12005; 36415; 70450; 70486; 72125; 73140; 80053; 80320; 85025; 85610; 86850; 86900; 86901; 90471; 90715; 93005; 96365; 99285; J0690

== ENCOUNTER 2024-06-08 17:00 | Emergency (ER) | payer MEDICARE, OTHER, SELFPAY ==
[2024-06-08 17:08] VITALS: BP 165/95; PULSE 115; TEMP 36.9; O2SAT 95; BMI 31.3
--- OUTSIDE RECORDS SUMMARY | 2024-06-08 17:14 | XMS_ITS | CCD ---
Author Organization [facility] Inform ion Partnership JAVA GOLDEN [employer]EL[employer] [facility] Care Team Providers Care Fitness Director Name Role Phone Nabor Nelson II Unavailable DO Jonathan Smith Primary Care Provider MD Nabor Nelson II Attending Provider [phone] MARKUS Moore Other Provider Unavailable MARKUS Howell Other Provider Unavailable MARKUS Regalado Other Provider Unavailable MARKUS Omalley Other Provider Unavailable MARKUS Presley Other Provider Unavailable Lisa RN Melvi Other Provider Unavailable MARKUS Best Other Provider Unavailable MD Letty Hurtado Other Provider MD Javier Nolen Other Provider KESHAWN Herndon Other Provider DO Nohemy Louis Other Provider [phone] MD Vitaly Siddiqi Other Provider DO Nicholas Monet Other Provider MD Robert Hernandez Other Provider [phone] MD Shirley Arias Other Provider Paul ANP-BC Shelli Other Provider MD Kumar Newman Other Provider MD Hesham Martin Other Provider MD Christopher Manjarrez Other Provider MD Geraldine Arroyo Other Provider DO Ti Wood Other Provider Unavailable MD Jose Maria Del Real Other Provider MD Asif Solis Other Provider MD Selina Guillen Other Provider MD Andrea Pablo Other Provider PAM Fay Other Provider [phone] MD Chung Mary Other Provider MD Garry Anglin Other Provider MD Soren Chaudhari Other Provider Unavailable MD Lidya Toledo Other Provider MD Pawel Mendoza Other Provider Isra Bhatia MD Yoshi Other Provider DO Sara Velazquez Other Provider Al Sherry Liu MD Hanhayley Other Provider DO Eliot Ortiz Other Provider MiniDO Tristen wolfe Other Provider KESHAWN Morrison Other Provider Radha, MARKUS Mayer Other Provider Unavailable DO Jonathan Smith Primary Care Provider MD Nabor Nelson II Attending Provider DO Jonathan Smith Primary Care Provider MD George Ryan Attending Provider MD Kiana Munson Attending Provider MD Nabor Wilson Attending Provider George Ryan Unavailable Jonathan Smith Unavailable Kiana Munson Unavailable Dr. Jonathan Smith Primary Care Lam Smith, Dr. Jonathan Aponte Primary Care Lam CORONA, NONE LISTED Consulting Unavaila helen SMITH, DR BANKS Primary Care Unavailable DR CHLOE NONE LISTED Attending Unavaila helen CORONA, NONE LISTED Admitting Unavaila ble TRISTAERERagini, DR YOVANA Marin Consulting Unavailable NADERER, DR YOVANA Marin Attending Unavailable NADERERagini, DR YOVANA Marin Admitting Unavailable BALL, DR BANKS Primary Care Unavailable LANDRY ., GIAN Consulting Unavailable RUBIO, FAY Consulting Unavailable BALL, DR BANKS Consulting Unavailable BALL, DR BANKS Primary Care Unavailable BALL, DR BANKS Attending Unavailable BALL, DR BANKS Admitting Unavailable HALADAY, DR TOMLIN Consulting Unavailable BALL, DR BANKS Primary Care Unavailable HALADAY, DR TOMLIN Attending Unavailable HALADAY, DR TOMLIN Admitting Unavailable BALL, DR BANKS Consulting Unavailable BALL, DR BANKS Primary Care Unavailable BALL, DR BANKS Attending Unavailable BALL, DR BANKS Admitting Unavailable WEST, DR TENZIN Glez Consulting Unavailable BALL, DR BANKS Consulting Unavailable BALL, DR BANKS Primary Care Unavailable BALL, DR BANKS Attending Unavailable BALL, DR BANKS Admitting Unavailable HALADAY, DR TOMLIN Consulting Unavailable BALL, DR BANKS Primary Care Unavailable HALADAY, DR TOMLIN Attending Unavailable HALADAY, DR TOMLIN Admitting Unavailable HALADAY, DR TOMLIN Consulting Unavailable BALL, DR BANKS Primary Care Unavailable HALADAY, DR TOMLIN Attending Unavailable HALADAY, DR TOMLIN Admitting Unavailable HALADAY, DR TOMLIN Consulting Unavailable BALL, DR BANKS Primary Care Unavailable HALADAY, DR TOMLIN Attending Unavailable HALADAY, DR TOMLIN Admitting Unavailable HALADAY, DR TOMLIN Consulting Unavailable BALL, DR BANKS Primary Care Unavailable HALADAY, DR TOMLIN Attending Unavailable HALADAY, DR TOMLIN Admitting Unavailable BALL, DR BANKS Primary Care Unavailable NABOR NELSON Attending Unavailable NABOR NELSON Admitting Unavailable DO Jonathan Smith Primary Care Provider [phone] MD Nabor Wilson Attending Provider MD Nabor Nelson II Attending Provider MD Kiana Munson Attending Provider Olayinka Ramos Unavailable Massiel Pereira Unavailable DO Jonathan Smith Primary Care Provider DO Olayinka Ramos Attending Provider RAYMOND SAUCEDA Attending Unavailable Earl, Jonathan Primary Care Unavailable Olayinka Ramos Attending Unavailable Olayinka Ramos Admitting Unavailable Earl, Jonathan Primary Care Unavailable Kiana Munson Attending Unavailable Kiana Munson Admitting Unavailable Nabor Nelson II Attending Unavailabl Nabor Luu II Admitting UnavailJonathan Mccormick Primary Care Unavailable Jonathan Smith Primary Care Unavailable Olayinka Ramos Attending Unavailable Olayinka Ramos Admitting Unavailable Unavailable Primary Care Provider Unavailroz zimmer Allergies Allergy Classification Reported Allergen(s) Allergy Type Date of Onset Reaction(s) Facility Adhesive Tape (1 source) Adhesive Tape Substance Allergy [facility] Repository Hydroxychloroquine (1 source) Hydroxychloroquine Drug Allergy [facility] Repository Opioid Agonists (1 source) Morphine Drug Allergy [facility] Repository (20 sources) Adhesive Tape Drug allergy Unknown [facility] [employer] Other (20 sources) Hydroxychloroquine Drug Allergy rash [facility] (20 sources) Morphine Drug Allergy Unknown, Unresponsive [facility] (19 sources) Adhesive Tape Allergy to substance Redness of Skin, skin tears [facility] (1 source) Adhesive agent Drug allergy (disorder) [facility] Repository (1 source) Hydroxychloroquine Drug Allergy [facility] Repository (1 source) Morphine Drug Allergy [facility] Repository (20 sources) Morphine Sulfate (Concentrate) *ANALGESICS - OPIOI Propensity to adverse reactions Unknown [employer] Other (3 sources) Allergies Reconciled Propensity to adverse reactions Unknown [employer] Other (3 sources) patient allergy list reviewed by nurse or physicia Propensity to adverse reactions Comment:Done [employer] Other Medications Current Medications Medication Drug Class(es) [...] Subcutaneous Once weekly for 28 days Active [id number] 200 actuat albuterol 0.09 mg/actuat metered dose [...] hold 2 weeks 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 and 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 take 0.5 tablet by m outh every [...] a day for 14 days Sep, Active [place] 2-Xxk-Fkh-Fish Oil (Fish Oil) 1,200 (144-216) mg Capsule (19 sources) Start: 02-12-2022 take 1 capsule by mouth once daily [place] 5-Qfu-Ncj-Fish Oil (Fish Oil) 1,200 (144-216) mg Capsule Active 1200 CAP PO Daily February 11, 2022 11:00pm Start: 02-12-2022 take 1 capsule by mo [facility] once daily [place] 5-Gik-Tau-Fish Oil (Fish Oil) 1,200 (144-216) mg Capsule [...] Active take 1 tablet by mouth once loerna y Vitamin D 25 MCG (1000 UT) [...] 9:37am Start: 02-11-2022 take 1 capsule by [facility] every twelve hours Cefadroxil 500 MG [...] 03, 2022 12:00am November 17, 2023 9:39am EPINEPHrine / Lidocaine (1 source) Antiarrhythmic, alpha-Adrenergic Agonist, beta-Adrenergic Agonist, Catecholamine, Amide Local Anesthetic Start: 06-08-2024 End: 06-08-2024 20 mL, Injection, ONCE, 1 dose, On Linda 06/08/24 at 0013 famotidine 20 mg oral tablet (20 sources) [...] release oral tablet (15 sources) Blood Viscosity Commutator Operator take 1 tablet by mouth twice daily at mealtime Pentoxifylline 400 MG 1 tablet with meals Orally Twice a day Not-Taking polyethylene glycol 3350 [id number] mg powder for oral solution (20 sources) [...] 03, 2022 12:00am November 17, 2023 9:39am 50 ml sodium chloride 9 mg/ml injection (1 source) Start: 06-07-2024 End: 06-07-2024 Intravenous, PRN CONTINUOUS, Starting on Wed06/07/24 at 2219, Until Wed06/07/24 at 221 spironolactone 25 mg oral tablet (2 sources) [...] Primary insomnia; Translations: [Primary insomnia] 12-08-2023 Chronic Open wounds of head; neck; and trunk (1 source) Scalp laceration; Translations: [Laceration without foreign body of scalp, initial encounter] 06-08-2024 Episodic Osteoarthritis (20 sources) Arthritis of left knee; [...] current use of drug therapy; Translations: [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] 12-08-2023 Episodic Other aftercare (3 sources) 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; Translations: [OTH RESIDENTIAL CURRENT DRUG THERAPY] Onset: 2 Resolved: 2 Episodic Other aftercare (3 sources) High risk drug monitoring status; Translations: [equipment operator intermodal yard (current) use of opiate analgesic] Episodic Other aftercare (1 source) Drug therapy finding; Translations: [equipment operator intermodal yard (current) use of opiate analgesic] 03-09-2024 Episodic Other aftercare (1 source) equipment operator intermodal yard (current) use of opiate analgesic; Translations: [Long-term [...] RATE] Onset: 3 Episodic Other hematologic conditions (11 sources) ESR [...] 30+ - obesity; Translations: [Obesity, unspecified] Onset: Chronic Other nutritional; endocrine; and metabolic disorders [...] [Obstructive sleep apnea (adult) (pediatric)] Onset: 8 11-16-2023 Chronic Residual codes; unclassified (10 sources) [...] Test Name Value Interpretation Reference Range Facility HIV 1 and 2 Ab and HIV 1 p24 Ag panel IAOrdered By: Arnoldo Alvarado on 06-08-2024 HIV 1+2 Ab+HIV1 p24 Ag IA Ql Non-Reactive Non-Reactiv e [facility] Comment on above: No laboratory eviden ce for HIV Infection. Negative result does not rule out acute HIV infection. If acute HIV infection is suspected, recommend ordering an HIV-1 RNA quanitification test. Interpretation and review of laboratory results Normal [facility] HIV Information: [place] Rev. code 3701.243(E): This information has been disclosed to you from confidential records protected from disclosure by state law. You shall make no further disclosure of this information without the specific, written, and informed release of the individual to whom it pertains, or as otherwise permitted by state law. A general authorization for the release of medical or other information is not sufficient for the purpose of the release of HIV test results or diagnoses. [facility] Basic metabolic 2000 panelon 06-07-2024 Anion gap [Moles/Vol] 17 mmol/L 10 - 20 [facility] Calcium [Mass/Vol] 9.6 mg/dL 8.6 - 10. 3 mg/dL [facility] Chloride [Moles/Vol] 105 mmol/L 98 - 10 7 mmol/L [facility] CO2 [Moles/Vol] 22 mmol/L 21 - 31 mmol/L [facility] Creatinine [Mass/Vol] 1.33 mg/dL High 0.60 - 1.20 mg/dL [facility] GFR/1.73 sq M.predicted CKD-EPI (S/P/Bld) [Vol rate/Area] 43 Low - PINF [facility] Comment on above: 2020 CKD EPI Equatio n using Creatinine without Race Comment: Estimated glomerular filtration rate (eGFR) is calculated without a race coefficient. Values should be interpreted in the context of the patient's full clinical presentation. Reference: 1. Robin C, Dima M, Adenike BALL, et al.. A Unifying Approach for GFR Estimation: Recommendations of the NKF-ASN Task Force on Reassessing the Inclusion of Race in Diagnosing Kidney Disease. [place] Journal of Kidney Diseases 2021;79(2):268-88.e1. 2. N Engl J Med 2020 Vol. 385 Issue 19 Pages 7328-8363 Glucose [Mass/Vol] 92 mg/dL 74 - 109 mg/dL [facility] Interpretation and review of laboratory results Abnormal [facility] Potassium [Moles/Vol] 4.1 mmol/L 3.5 - 5.0 mmol/L [facility] Sodium [Moles/Vol] 140 mmol/L 136 - 145 mmol/L [facility] Urea nitrogen [Mass/Vol] 30 mg/dL High 7 - 25 mg/dL [facility] CBC WITH DIFFERENTIALOrdered By: Ronda Ruvalcaba on 06-07-2024 Basophils (Bld) [#/Vol] 0.03 10*3/uL 0.00 - 0.20 K/uL [facility] Basophils/100 WBC (Bld) 0.3 % NINF - 1.9 % [facility] Eosinophils (Bld) [#/Vol] 0.17 10*3/uL 0.00 - 0.70 K/uL [facility] Eosinophils/100 WBC (Bld) 1.5 % 0.1 - 4.0 % [facility] Erythrocyte distribution width (RBC) [Ratio] 13.7 % 11.5 - 14.5 % [facility] Hematocrit (Bld) [Volume fraction] 37.7 % 36.0 - 46.0 % [facility] Hemoglobin (Bld) [Mass/Vol] 12.1 g/dL 12.0 - 15.0 g/dL [facility] Interpretation and review of laboratory results Abnormal [facility] Lymphocytes (Bld) [#/Vol] 2.17 10*3/uL 1.00 - 4.80 K/uL [facility] Lymphocytes/100 WBC (Bld) 19.6 % Low 24.0 - 44.0 % [facility] MCH (RBC) [Entitic mass] 29.8 pg 26.0 - 34.0 pg [facility] MCHC (RBC) [Mass/Vol] 32.2 g/dL 32.0 - 35.9 g/dL [facility] MCV (RBC) [Entitic vol] 93 fL 80 - 100 fL [facility] Monocyte distribution width Auto (Bld) [Entitic vol] 16 NINF - 20 [facility] Monocytes (Bld) [#/Vol] 1.11 10*3/uL High 0.20 - 1.00 K/uL [facility] Monocytes/100 WBC (Bld) 10.0 % 2.0 - 11.0 % [facility] Neutrophils (Bld) [#/Vol] 7.63 10*3/uL 1.50 - 8.00 K/uL [facility] Neutrophils/100 WBC (Bld) 68.7 % 31.0 - 76.0 % [facility] Platelet mean volume (Bld) [Entitic vol] 10.9 fL 7.5 - 11.2 fL [facility] Platelets (Bld) [#/Vol] 191 10*3/uL 150 - 400 K/uL [facility] RBC (Bld) [#/Vol] 4.08 10*6/uL [facility] WBC (Bld) [#/Vol] 11.1 10*3/uL 4.5 - 11.5 K/uL [facility] CT Thoracic spine WO contras ton 06-07-2024 CT DLP 979.94 (mGycm) [facility] CT Series Neck,Neck,Neck,Neck [facility] CTDI VOL 35.5 (mGy) [facility] PHANTOM TYPE IEC Body Dosimetry Phantom [facility] EXAMINATION: CT T-SP INE W/O CONTRAST 06/07/2024 11:04 PM CLINICAL HISTORY: Trauma; unwitnessed fall, thoracic spine tenderness ASSOCIATED DIAGNOSIS: Trauma unwitnessed fall, thoracic spine tenderness ORDERING PROVIDER: LUIS FERNANDO MARIN TECHNOLOGISTS NOTE: COMPARISON: None TECHNIQUE: Thin axial images were obtained through the thoracic region without intravenous contrast. 2D sagittal and coronal reconstructions were obtained from the axial data. FINDINGS: Alignment: Normal. Vertebrae: No evidence of an acute fracture. No aggressive osseous lesions. Trace volume of air within the ventral epidural space at T5-T6 is favored degenerative. Thoracic soft tissue: The paraspinal soft tissues planes are maintained. Canal and foramina: Mild multilevel spondylosis, without critical spinal canal or neural foraminal stenosis. IMPRESSION: No acute fracture or malalignment of the thoracic spine. MACRO: None RADIOLOGY Daniel Mott MD - 06/07/2024 EXAMINATION: CT T-SPINE W/O CONTRAST 06/07/2024 11:04 PM CLINICAL HISTORY: Trauma; unwitnessed fall, thoracic spine tenderness ASSOCIATED DIAGNOSIS: Trauma unwitnessed fall, thoracic spine tenderness ORDERING PROVIDER: LUIS FERNANDO MARIN TECHNOLOGISTS NOTE: COMPARISON: None TECHNIQUE: Thin axial images were obtained through the thoracic region without intravenous contrast. 2D sagittal and coronal reconstructions were obtained from the axial data. FINDINGS: Alignment: Normal. Vertebrae: No evidence of an acute fracture. No aggressive osseous lesions. Trace volume of air within the ventral epidural space at T5-T6 is favored degenerative. Thoracic soft tissue: The paraspinal soft tissues planes are maintained. Canal and foramina: Mild multilevel spondylosis, without critical spinal canal or neural foraminal stenosis. IMPRESSION: No acute fracture or malalignment of the thoracic spine. MACRO: None [facility] Radiology Study observation (narrative) [facility] ETHANOL, SERUMOrdered By: Tyron Duran on 06-07-2024 Ethanol [Mass/Vol] 194 mg/dL High None Detected [facility] Interpretation and review of laboratory results Abnormal [facility] LACTIC ACIDOrdered By: Britt Montes on 06-07-2024 Interpretation and review of laboratory results Abnormal [facility] Lactate [Moles/Vol] 3.3 mmol/L Critically high 0.5 - 1.6 mmol/L [facility] No Panel Informationon 06-07 Interpretation and review of laboratory results Normal [facility] No Panel InformationOrdered By: Rubio Duran on 06-07-2024 [facility]o n 09-25-2024 aPTT Coag (Bld) [Time] 25 s [facility] PROTHROMBIN TIME AND INRon 0 06-07-2024 INR Coag (PPP) [Relative time] 1.04 {INR} 0.90 - 1.10 [facility] PT Coag (PPP) [Time] 11.6 s [facility] TYPE AND SCREENon 06-07-2024 ABO and Rh group Nom (Bld) Blood group A Rh(D) positive [facility] ABO and Rh group Nom (Bld) No Previous Results [facility] Blood group antibody screen Ql Negative [facility] XR Hand - left 3 Viewson EXAMINATION: XR HAND LEFT 3 VIEWSPRO/LT 06/07/2024 10:54 PM CLINICAL HISTORY: LT 5TH finger injury ASSOCIATED DIAGNOSIS: ORDERING PROVIDER: MILVIA MELGAR NOTE: COMPARISON: None IMPRESSION: No left hand fracture or dislocation is identified. There are no abnormal soft tissue calcifications. Scattered mild to moderate degenerative changes, greatest at the first CMC. Radiopaque ring overlying the proximal fourth digit. Pulse oximeter overlying the distal second digit. 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 Probable ghost tracks from remote surgical hardware in the distal carpal bones. Left hand MACRO: None RADIOLOGY Daniel Mott MD - 06/07/2024 EXAMINATION: XR HAND LEFT 3 VIEWSPRO/LT 06/07/2024 10:54 PM CLINICAL HISTORY: LT 5TH finger injury ASSOCIATED DIAGNOSIS: ORDERING PROVIDER: MILVIA MELGAR NOTE: COMPARISON: None IMPRESSION: No left hand fracture or dislocation is identified. There are no abnormal soft tissue calcifications. Scattered mild to moderate degenerative changes, greatest at the first CMC. Radiopaque ring overlying the proximal fourth digit. Pulse oximeter overlying the distal second digit. 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 Probable ghost tracks from remote surgical hardware in the distal carpal bones. Left hand MACRO: None [facility] Radiology Study observation (narrative) [facility] XR Hand - left 3 ViewsOrdere d By: Daniel Mott on 06-07-2024 [facility] Work Phone: Glucose mean value [Mass/vol ume] in Blood Estimated from glycated hemoglobinon 03-15-2024 Average glucose Estimated from glycated hemoglobin (Bld) [Mass/Vol] 103 mg/dL [facility] - Hematology and Cell countson 03-15-2024 HbA1c (Bld) [Mass fraction] 5.2 % 4.5-6.2 [facility] Comment on above: ADA RECOMMENDED LIMI T 4.0 - 6.0ADA THERAPEUTIC TARGET < 7.0ACTION SUGGESTED> 7.0 Basophils Auto (Bld) [#/Vol] on 03-09-2024 Basophils (Bld) [#/Vol] 0.1 10 3/uL 0.0-0.1 [facility] Basophils/100 WBC Auto (Bld) on 03-09-2024 Basophils/100 WBC (Bld) 0.7 % 0.2-2.0 [facility] Eosinophils/100 WBC Auto (Bl d)on 03-09-2024 Eosinophils/100 WBC (Bld) 3.6 % 0.9-7.0 [facility] Erythrocyte distribution wid th Auto (RBC) [Ratio]on 03-09-2024 Erythrocyte distribution width (RBC) [Ratio] 12.7 % 11.0-15.0 [facility] Estimated glomerular filtrat ion rate (GFR) non- Americanon 03-09-2024 GFR/1.73 sq M.predicted among non-blacks MDRD (S/P/Bld) [Vol rate/Area] 49 mL/min/{1.73_m2} Low >=60 [facility] Globulin Calc (S) [Mass/Vol] on 03-09-2024 Globulin (S) [Mass/Vol] 3.3 g/dL [facility] Hematocrit Auto (Bld) [Volum e fraction]on 03-09-2024 Hematocrit (Bld) [Volume fraction] 38.6 % 36.0-48.0 [facility] Hemoglobin [Mass/volume] in Bloodon 03-09-2024 Hemoglobin (Bld) [Mass/Vol] 12.8 g/dL 12.0-16.0 [facility] - Chemistry and C hemistry - challengeon 03-09-2024 Albumin [Mass/Vol] 3.7 g/dL 3.4-5.0 [facility] ALP [Catalytic activity/Vol] 63 U/L 46-116 [facility] ALT [Catalytic activity/Vol] 27 U/L 14-59 [facility] AST [Catalytic activity/Vol] 22 U/L 15-37 [facility] Bilirubin [Mass/Vol] 0.6 mg/dL 0.2-1.0 [facility] Bilirubin.direct [Mass/Vol] 0.2 mg/dL 0.0-0.2 [facility] Creatinine [Mass/Vol] 1.11 mg/dL High 0.55-1.02 [facility] GFR/1.73 sq M.predicted MDRD (S/P/Bld) [Vol rate/Area] 59 mL/min/{1.73_m2} Low >=60 [facility] Protein [Mass/Vol] 7.0 g/dL 6.4-8.2 [facility] - Hematology and Cell countson 03-09-2024 ESR (Bld) [Velocity] 48 mm/h High <=30 [facility] Immature granulocytes/100 WBC (Bld) 0.3 % 0.0-0.5 [facility] Leukocytes [#/volume] correc manju for nucleated erythrocytes in Blood by Automated counon 03-09-2024 WBC corrected for nucl RBC Auto (Bld) [#/Vol] 6.7 10 3/uL 4.0-11.0 [facility] Lymphocytes Auto (Bld) [#/Vo l]on 03-09-2024 Lymphocytes (Bld) [#/Vol] 1.7 10 3/uL 1.2-3.8 [facility] Lymphocytes/100 WBC Auto (Bl d)on 03-09-2024 Lymphocytes/100 WBC (Bld) 24.9 % 20.5-60.0 [facility] MCH Auto (RBC) [Entitic mass ]on 03-09-2024 MCH (RBC) [Entitic mass] 30.4 pg 26.7-34.0 [facility] MCHC Auto (RBC) [Mass/Vol]on 03-09-2024 MCHC (RBC) [Mass/Vol] 33.2 g/dL 29.9-35.2 [facility] MCV Auto (RBC) [Entitic vol] on 03-09-2024 MCV (RBC) [Entitic vol] 91.7 fL 81.0-99.0 [facility] Monocytes Auto (Bld) [#/Vol] on 03-09-2024 Monocytes (Bld) [#/Vol] 0.8 10 3/uL 0.3-0.8 [facility] Monocytes/100 WBC Auto (Bld) on 03-09-2024 Monocytes/100 WBC (Bld) 11.5 % 1.7-12.0 [facility] Neutrophils Auto (Bld) [#/Vo l]on 03-09-2024 Neutrophils (Bld) [#/Vol] 3.9 10 3/uL 1.4-6.5 [facility] Neutrophils/100 WBC Auto (Bl d)on 03-09-2024 Neutrophils/100 WBC (Bld) 59.0 % 43.0-75.0 [facility] No Panel Informationon 03-09 Eosinophils # (Auto) 0.2 10 3/uL 0.0-0.7 [facility] Immature Granulocyte # (Auto) 0.02 10 3/uL 0.00-0.03 [facility] Platelet mean volume Auto (B ld) [Entitic vol]on 03-09-2024 Platelet mean volume (Bld) [Entitic vol] 11.8 fL 9.5-13.5 [facility] Platelets Auto (Bld) [#/Vol] on 03-09-2024 Platelets (Bld) [#/Vol] 241 10 3/uL 150-450 [facility] RBC Auto (Bld) [#/Vol]on RBC (Bld) [#/Vol] 4.21 10 6/uL 4.20-5.40 [facility] Serum or plasma albumin/glob ulin mass ratioon 03-09-2024 Albumin/Globulin [Mass ratio] 1.1 {ratio} [facility] Activated partial thrombopla stin time (APTT).factor substitution in platelet poor plaon 01-11-2024 aPTT.factor substitution immediately after 1:4 addition of normal plasma Coag (PPP) [Time] TNP sec . [facility] Comment on above: Testing Not Indicate dThis test was developed and its performance characteristicsdetermined by [facility]. It has not been cleared or approvedby the [place] Food and Drug Administration. Activated partial thrombopla stin time (aPTT) in platelet poor plasma by coagulation aon 01-11-2024 aPTT Coag (PPP) [Time] 22.4 s Abnormal . [facility] Comment on above: This test has not be en validated for monitoringunfractionated heparin therapy. aPTT-based therapeuticranges for unfractionated heparin therapy have not beenestablished. Consider ordering Heparin anti-Xa(unfractionated).Reference Range:18 years and older: 22.9 - 30.2 Activated partial thrombopla stin time (aPTT) using hexagonal phase phospholipid in plon 01-11-2024 aPTT W excess hexagonal phase phospholipid Coag (PPP) [Time] 2 sec . [facility] Comment on above: This value is NEGATI VE.This is a qualitative assay and is therefore reported aspositive for lupus anticoagulant or negative. Thequantitative value is provided as an aid in diagnosis.Reference Range:0 - 11 Automated epithelial cells c ount in urine sediment (number/area)on 01-11-2024 Epithelial cells Auto (Urine sed) [#/Area] FEW #/LPF Abnormal NONE/RARE [facility] Automated urine sediment micki cium oxalate crystal count by microscopy (number/high powon 01-11-2024 Calcium oxalate crystals LM.HPF (Urine sed) [#/Area] FEW [facility] [facility] Autom[facility] urine specific gra vity by refractometryon 01-11-2024 Specific gravity Refractometry automated (U) [Rel density] >=1.030 Abnormal 1.005-1.025 [facility] Bacteria [Presence] in Urine by Automatedon 01-11-2024 Bacteria Auto Ql (U) NONE SEEN #/HPF NONE SEEN [facility] Basophils Auto (Bld) [#/Vol] on 01-11-2024 Basophils (Bld) [#/Vol] 0.0 10 3/uL 0.0-0.1 [facility] Basophils/100 WBC Auto (Bld) on 01-11-2024 Basophils/100 WBC (Bld) 0.5 % 0.2-2.0 [facility] Beta 2 glycoprotein 1 IgA Ab [Units/volume] in Serumon 01-11-2024 Beta 2 glycoprotein 1 IgA Qn (S) <10 MICHELA . [facility] Comment on above: The reference interv al reflects a 3SD or 99th percentileinterval.Reference Range:Negative: <26 Beta 2 glycoprotein 1 IgG Ab [Units/volume] in Serumon 01-11-2024 Beta 2 glycoprotein 1 IgG Qn (S) <10 SGU . [facility] Comment on above: The reference interv al reflects a 3SD or 99th percentileinterval.Reference Range:Negative: <21 Beta 2 glycoprotein 1 IgM Ab [Units/volume] in Serumon 01-11-2024 Beta 2 glycoprotein 1 IgM Qn (S) <10 SMU . [facility] Comment on above: The reference interv al reflects a 3SD or 99th percentileinterval.Reference Range:Negative: <33 Bilirubin Auto test strip (U ) [Mass/Vol]on 01-11-2024 Bilirubin (U) [Mass/Vol] SMALL Abnormal NEGATIVE [facility] Cardiolipin IgG Ab [Units/vo lume] in Serum by Immunoassayon 01-11-2024 Cardiolipin IgG IA Qn (S) <10 GPL . [facility] Comment on above: Reference Range:Nega tive: <15Indeterminate: 15 - 20Low to medium positive: >20 - 80High positive: >80 Cardiolipin IgM Ab [Units/vo lume] in Serum by Immunoassayon 01-11-2024 Cardiolipin IgM IA Qn (S) <10 MPL . [facility] Comment on above: Reference Range:Nega tive: <13Indeterminate: 13 - 20Low to medium positive: >20 - 80High positive: >80 Casts typing in urine sedime nt by light microscopyon 01-11-2024 Casts LM Nom (Urine sed) NONE SEEN #/LPF NONE SEEN [facility] Centriole Ab [Titer] in Seru m by Immunofluorescenceon 01-11-2024 Centriole Ab IF (S) [Titer] TNP . [facility] Centromere Ab [Titer] in Ser um by Immunofluorescenceon 01-11-2024 Centromere Ab IF (S) [Titer] TNP . [facility] Color Auto (U)on 01-11-2024 Color (U) DK. YELLOW YELLOW [facility] Dilute Naveen's viper venom time (DRVVT) confirmatory teston 01-11-2024 dRVVT actual/normal Coag (PPP) [Relative time] TNP sec . [facility] Comment on above: Testing Not Indicate d Eosinophils/100 WBC Auto (Bl d)on 01-11-2024 Eosinophils/100 WBC (Bld) 4.6 % 0.9-7.0 [facility] Erythrocyte distribution wid th Auto (RBC) [Ratio]on 01-11-2024 Erythrocyte distribution width (RBC) [Ratio] 13.2 % 11.0-15.0 [facility] Estimated glomerular filtrat ion rate (GFR) non- Americanon 01-11-2024 GFR/1.73 sq M.predicted among non-blacks MDRD (S/P/Bld) [Vol rate/Area] 52 mL/min/{1.73_m2} Low >=60 [facility] Globulin Calc (S) [Mass/Vol] on 01-11-2024 Globulin (S) [Mass/Vol] 3.2 g/dL [facility] Glucose [Mass/volume] in Uri ne by Test stripon 01-11-2024 Glucose Test strip (U) [Mass/Vol] Negative NEGATIVE [facility] Glucose mean value [Mass/vol ume] in Blood Estimated from glycated hemoglobinon 01-11-2024 Average glucose Estimated from glycated hemoglobin (Bld) [Mass/Vol] 117 mg/dL [facility] Hematocrit Auto (Bld) [Volum e fraction]on 01-11-2024 Hematocrit (Bld) [Volume fraction] 39.2 % 36.0-48.0 [facility] Hemoglobin [Mass/volume] in Bloodon 01-11-2024 Hemoglobin (Bld) [Mass/Vol] 12.8 g/dL 12.0-16.0 [facility] INR in Platelet poor plasma by Coagulation assayon 01-11-2024 INR Coag (PPP) [Relative time] 1.0 {INR} . [facility] Comment on above: Reference Range:>1 m onth: 0.9 - 1.2 Interpretation of screening lupus anticoagulant assayon 01-11-2024 Lupus anticoagulant three screening tests W Reflex Coag (PPP) [Interp] Comment . [facility] Comment on above: A lupus anticoagulan t is not detected. All antiphospholipidantibodies evaluated are normal. As antibody titers mayfluctuate with time, repeat testing may be indicated.Please contact [employer] if furtherclarification is needed.Performed at: [id number] [address] [id number] Director: Simon Izquierdo MD, Phone: [phone] Ketones Auto test strip (U) [Mass/Vol]on 01-11-2024 Ketones (U) [Mass/Vol] TRACE mg/dL Abnormal NEGATIVE [facility] Laboratory - Chemistry and C hemistry - challengeon 01-11-2024 Albumin [Mass/Vol] 3.0 g/dL Low 3.4-5.0 [facility] ALP [Catalytic activity/Vol] 67 U/L 46-116 [facility] ALT [Catalytic activity/Vol] 26 U/L 14-59 [facility] AST [Catalytic activity/Vol] 18 U/L 15-37 [facility] Bilirubin [Mass/Vol] 0.4 mg/dL 0.2-1.0 [facility] Bilirubin.direct [Mass/Vol] 0.1 mg/dL 0.0-0.2 [facility] Creatinine [Mass/Vol] 1.05 mg/dL High 0.55-1.02 [facility] GFR/1.73 sq M.predicted MDRD (S/P/Bld) [Vol rate/Area] mL/min/{1.73_m2} >=60 [facility] Protein [Mass/Vol] 6.2 g/dL Low 6.4-8.2 [facility] Laboratory - Hematology and Cell countson 01-11-2024 ESR (Bld) [Velocity] 6 mm/h <=30 [facility] HbA1c (Bld) [Mass fraction] 5.7 % 4.5-6.2 [facility] Comment on above: ADA RECOMMENDED LIMI T 4.0 - 6.0ADA THERAPEUTIC TARGET < 7.0ACTION SUGGESTED> 7.0 Immature granulocytes/100 WBC (Bld) 0.5 % 0.0-0.5 [facility] Leukocytes [#/area] in Urine sediment by Automated counton 01-11-2024 WBC Auto (Urine sed) [#/Area] NONE SEEN #/HPF 0-2 [facility] Leukocytes [#/area] in Urine sediment by Microscopy high power fieldon 01-11-2024 WBC LM.HPF (Urine sed) [#/Area] 0-2 #/HPF Abnormal NONE SEEN [facility] Leukocytes [#/volume] correc manju for nucleated erythrocytes in Blood by Automated counon 01-11-2024 WBC corrected for nucl RBC Auto (Bld) [#/Vol] 8.3 10 3/uL 4.0-11.0 [facility] Lymphocytes Auto (Bld) [#/Vo l]on 01-11-2024 Lymphocytes (Bld) [#/Vol] 3.2 10 3/uL 1.2-3.8 [facility] Lymphocytes/100 WBC Auto (Bl d)on 01-11-2024 Lymphocytes/100 WBC (Bld) 38.0 % 20.5-60.0 [facility] MCH Auto (RBC) [Entitic mass ]on 01-11-2024 MCH (RBC) [Entitic mass] 30.3 pg 26.7-34.0 [facility] MCHC Auto (RBC) [Mass/Vol]on 01-11-2024 MCHC (RBC) [Mass/Vol] 32.7 g/dL 29.9-35.2 [facility] MCV Auto (RBC) [Entitic vol] on 01-11-2024 MCV (RBC) [Entitic vol] 92.7 fL 81.0-99.0 [facility] Midbody Ab [Titer] in Serum by Immunofluorescenceon 01-11-2024 Midbody Ab IF (S) [Titer] TNP . [facility] Mitotic spindle apparatus Ab [Titer] in Serum or Plasma by Immunofluorescenceon 01-11-2024 Mitotic spindle apparatus Ab IF [Titer] TNP . [facility] Monocytes Auto (Bld) [#/Vol] on 01-11-2024 Monocytes (Bld) [#/Vol] 1.0 10 3/uL High 0.3-0.8 [facility] Monocytes/100 WBC Auto (Bld) on 01-11-2024 Monocytes/100 WBC (Bld) 12.3 % High 1.7-12.0 [facility] Mucus LM Ql (Urine sed)on Mucus Ql (Urine sed) NONE SEEN NONE SEEN [facility] Neutrophils Auto (Bld) [#/Vo l]on 01-11-2024 Neutrophils (Bld) [#/Vol] 3.7 10 3/uL 1.4-6.5 [facility] Neutrophils/100 WBC Auto (Bl d)on 01-11-2024 Neutrophils/100 WBC (Bld) 44.1 % 43.0-75.0 [facility] No Panel Informationon 01-10 Anti-Double Strand DNA Antibody 1 [IU]/mL 0-9 [facility] Comment on above: Negative <5 Equivoca l 5 - 9 Positive >9Performed at: [facility] [place] [id number] Director: Matty Diaz PhD, Phone: [phone] Anti-Nuclear Antibody Comment 2 Comment . [facility] Comment on above: Pattern Potential Di sease Association Homogeneous Systemic Lupus Erythematosus, Drug Induced Systemic Lupus Erythematosus, Chronic Autoimmune hepatitis, Juvenile Idiopathic Arthritis Speckled Sjogren Syndrome, Systemic Lupus Erythematosus, Subacute Cutaneous Lupus, Lupus, Congenital Heart Block, Mixed Connective Tissue Disease, Scleroderma-diffuse, Scleroderma-Autoimmune Myositis Overlap Syndrome, Systemic Lupus Apkxlsmmvtate-Sflrqtmhomi-Hlheablheg Myositis Overlap Syndrome, Systemic Autoimmune Rheumatic Disease, [...] Cytopenias, Linear Scleroderma, Antiphospholipid Syndrome Performed at: [facility] [id number] Director: Matty Diaz PhD, Phone: [phone] C-Reactive Protein, Quantitative <0.50 mg/dL <=0.50 [facility] Dilute Naveen Viper Venom Screen 32.2 sec . [facility] Comment on above: Reference Range:<= 4 7.0 Eosinophils # (Auto) 0.4 10 3/uL 0.0-0.7 [facility] Immature Granulocyte # (Auto) 0.04 10 3/uL High 0.00-0.03 [facility] Lupus Anticoag DRVVT Screen Ratio TNP ratio . [facility] Comment on above: Testing Not Indicate d Miscellaneous Test COMMENT . [facility] Comment on above: Test Ordered: [id number] Ramos AntibodiesSmith Antibodies 1.5 [H ] AI Reference Range: 0.0-0.9Performed at: [address] [id number] Director: Matty Diaz PhD, Phone: [phone] Platelet Neutralization 0.5 sec . [facility] Comment on above: Reference Range:0.0 - 3.0This test was developed and its performance characteristicsdetermined by [employer]im. It has not been cleared or approvedby the Food and Drug Administration. Total Complement (CH50) >60 U/mL >41 [facility] Comment on above: Age Male Female [...] to determine out of range values.Performed at: [address] [id number] Director: Matty Diaz PhD, Phone: [phone] Nuclear dots nuclear Ab farzad maurice [Titer] in Serum by Immunofluorescenceon 01-11-2024 Nuclear dots nuclear Ab pattern IF (S) [Titer] TN . [facility] Nuclear membrane pores nucle ar Ab pattern [Titer] in Serum by Immunofluorescenceon 01-11-2024 Nuclear membrane pores nuclear Ab pattern IF (S) [Titer] TN . [facility] PCNA extractable nuclear Ab [Titer] in Serum by Immunofluorescenceon 01-11-2024 PCNA extractable nuclear Ab IF (S) [Titer] TN . [facility] Platelet mean volume Auto (B ld) [Entitic vol]on 01-11-2024 Platelet mean volume (Bld) [Entitic vol] 11.7 fL 9.5-13.5 [facility] Platelet poor plasma factor substitution activated partial thromboplastin time (aPTT)on 01-11-2024 aPTT.factor substitution 1 Hr post incubation with normal plasma Coag (PPP) [Time] TNP sec . [facility] Comment on above: Testing Not Indicate dThis test was developed and its performance characteristicsdetermined by [employer]im. It has not been cleared or approvedby the [place] Food and Drug Administration. Platelets Auto (Bld) [#/Vol] on 01-11-2024 Platelets (Bld) [#/Vol] 269 10 3/uL 150-450 [facility] Protein Auto test strip (U) [Mass/Vol]on 01-11-2024 Protein (U) [Mass/Vol] TRACE mg/dL NEG/TRACE [facility] Prothrombin time (PT)on 12-14 PT Coag (PPP) [Time] 10.9 s . [facility] Comment on above: Reference Range:18 y ears and older: 9.1 - 12.0 RBC Auto (Bld) [#/Vol]on RBC (Bld) [#/Vol] 4.23 10 6/uL 4.20-5.40 [facility] Serum homogeneous pattern an tinuclear antibody (VAL) titeron 01-11-2024 Homogenous nuclear Ab pattern (S) [Titer] 1:160 Abnormal . [facility] Comment on above: ICAP nomenclature: A C-1 Serum nuclear antibody titer on 01-11-2024 Nuclear Ab (S) [Titer] Positive Abnormal . [facility] Comment on above: Negative <1:80 Borde rline 1:80 Positive >1:80 Serum nucleolar pattern anti nuclear antibody (VAL) titeron 01-11-2024 Nucleolar nuclear Ab pattern (S) [Titer] TNP . [facility] Serum or plasma albumin/glob ulin mass ratioon 01-11-2024 Albumin/Globulin [Mass ratio] 0.9 {ratio} [facility] Serum or plasma complement C 3 measurement (mass/volume)on 01-11-2024 Complement C3 [Mass/Vol] 99 mg/dL 82-167 [facility] Serum or plasma complement C 4 measurement (mass/volume)on 01-11-2024 Complement C4 [Mass/Vol] 19 mg/dL 12-38 [facility] Comment on above: Performed at: [employer] [address] [id number] Director: Matty Diaz PhD, Phone: [phone] Serum or plasma cyclic adeno sine monophosphate measurement (moles/volume)on 01-11-2024 Adenosine monophosphate.cyclic [Moles/Vol] >250 units Abnormal 0-19 [facility] Comment on above: Negative <20 Weak po sitive 20 - 39 Moderate positive 40 - 59 Strong positive >59Performed at: [employer] [facility] [id number] Director: Matty Diaz PhD, Phone: [phone] Serum or plasma rheumatoid f actor measurement (units/volume)on 01-11-2024 Rheumatoid factor Qn 31.0 [IU]/mL Abnormal <14.0 [facility] Comment on above: Performed at: [facility] [address] [id number] Director: Matty Diaz PhD, Phone: [phone] Serum speckled pattern antin uclear antibody (VAL) titeron 01-11-2024 Speckled nuclear Ab pattern (S) [Titer] TNP . [facility] Specific gravity Auto test s trip (U) [Rel density]on 01-11-2024 Specific gravity (U) [Rel density] CLEAR CLEAR [facility] TT plason 01-11-2024 Thrombin time Coag (PPP) [Time] 21.2 sec . [facility] Comment on above: Reference Range:0.0 - 23.0 Urine hemoglobin detection b y automated test stripon 01-11-2024 Hemoglobin Auto test strip Ql (U) Negative NEGATIVE [facility] Urine nitrite detection by a utomated test stripon 01-11-2024 Nitrite Auto test strip Ql (U) Negative NEGATIVE [facility] Urine sediment crystal ident ification by light microscopyon 01-11-2024 Crystals LM Nom (Urine sed) Seen #/HPF Abnormal None Seen [facility] Urobilinogen Auto test strip (U) [Mass/Vol]on 01-11-2024 Urobilinogen Qn (U) 1.0 {Charlotte'U}/dL 0.2-1.0 [facility] pH Auto test strip (U)on pH (U) 6.0 [pH] 5.0-9.0 [facility] Basophils Auto (Bld) [#/Vol] on 11-16-2023 Basophils (Bld) [#/Vol] 0.1 10 3/uL 0.0-0.1 [facility] Basophils/100 WBC Auto (Bld) on 11-16-2023 Basophils/100 WBC (Bld) 0.9 % 0.2-2.0 [facility] Eosinophils/100 WBC Auto (Bl d)on 11-16-2023 Eosinophils/100 WBC (Bld) 3.7 % 0.9-7.0 [facility] Erythrocyte distribution wid th Auto (RBC) [Ratio]on 11-16-2023 Erythrocyte distribution width (RBC) [Ratio] 13.1 % 11.0-15.0 [facility] Estimated glomerular filtrat ion rate (GFR) non- Americanon 11-16-2023 GFR/1.73 sq M.predicted among non-blacks MDRD (S/P/Bld) [Vol rate/Area] 47 mL/min/{1.73_m2} >=60 [facility] Globulin Calc (S) [Mass/Vol] on 11-16-2023 Globulin (S) [Mass/Vol] 3.4 g/dL [facility] Hematocrit Auto (Bld) [Volum e fraction]on 11-16-2023 Hematocrit (Bld) [Volume fraction] 39.1 % 36.0-48.0 [facility] Hemoglobin [Mass/volume] in Bloodon 11-16-2023 Hemoglobin (Bld) [Mass/Vol] 12.7 g/dL 12.0-16.0 [facility] Laboratory - Chemistry and C hemistry - challengeon 11-16-2023 Albumin [Mass/Vol] 3.2 g/dL 3.4-5.0 [facility] ALP [Catalytic activity/Vol] 61 U/L 46-116 [facility] ALT [Catalytic activity/Vol] 27 U/L 14-59 [facility] AST [Catalytic activity/Vol] 22 U/L 15-37 [facility] Bilirubin [Mass/Vol] 0.4 mg/dL 0.2-1.0 [facility] Bilirubin.direct [Mass/Vol] 0.1 mg/dL 0.0-0.2 [facility] Creatinine [Mass/Vol] 1.14 mg/dL 0.55-1.02 [facility] GFR/1.73 sq M.predicted MDRD (S/P/Bld) [Vol rate/Area] 57 mL/min/{1.73_m2} >=60 [facility] Protein [Mass/Vol] 6.6 g/dL 6.4-8.2 [facility] Laboratory - Hematology and Cell countson 11-16-2023 ESR (Bld) [Velocity] 6 mm/h <=30 [facility] Immature granulocytes/100 WBC (Bld) 0.0 % 0.0-0.5 [facility] Leukocytes [#/volume] correc manju for nucleated erythrocytes in Blood by Automated counon 11-16-2023 WBC corrected for nucl RBC Auto (Bld) [#/Vol] 5.7 10 3/uL 4.0-11.0 [facility] Lymphocytes Auto (Bld) [#/Vo l]on 11-16-2023 Lymphocytes (Bld) [#/Vol] 1.7 10 3/uL 1.2-3.8 [facility] Lymphocytes/100 WBC Auto (Bl d)on 11-16-2023 Lymphocytes/100 WBC (Bld) 29.6 % 20.5-60.0 [facility] MCH Auto (RBC) [Entitic mass ]on 11-16-2023 MCH (RBC) [Entitic mass] 29.9 pg 26.7-34.0 [facility] MCHC Auto (RBC) [Mass/Vol]on 11-16-2023 MCHC (RBC) [Mass/Vol] 32.5 g/dL 29.9-35.2 [facility] MCV Auto (RBC) [Entitic vol] on 11-16-2023 MCV (RBC) [Entitic vol] 92.0 fL 81.0-99.0 [facility] Monocytes Auto (Bld) [#/Vol] on 11-16-2023 Monocytes (Bld) [#/Vol] 0.5 10 3/uL 0.3-0.8 [facility] Monocytes/100 WBC Auto (Bld) on 11-16-2023 Monocytes/100 WBC (Bld) 8.5 % 1.7-12.0 [facility] Neutrophils Auto (Bld) [#/Vo l]on 11-16-2023 Neutrophils (Bld) [#/Vol] 3.3 10 3/uL 1.4-6.5 [facility] Neutrophils/100 WBC Auto (Bl d)on 11-16-2023 Neutrophils/100 WBC (Bld) 57.3 % 43.0-75.0 [facility] No Panel Informationon 11-15 Eosinophils # (Auto) 0.2 10 3/uL 0.0-0.7 [facility] Immature Granulocyte # (Auto) 0.00 10 3/uL 0.00-0.03 [facility] Platelet mean volume Auto (B ld) [Entitic vol]on 11-16-2023 Platelet mean volume (Bld) [Entitic vol] 11.7 fL 9.5-13.5 [facility] Platelets Auto (Bld) [#/Vol] on 11-16-2023 Platelets (Bld) [#/Vol] 228 10 3/uL 150-450 [facility] RBC Auto (Bld) [#/Vol]on RBC (Bld) [#/Vol] 4.25 10 6/uL 4.20-5.40 [facility] Serum or plasma albumin/glob ulin mass ratioon 11-16-2023 Albumin/Globulin [Mass ratio] 0.9 {ratio} [facility] XR wrist LT min 3V*on 2022 XR wrist LT min 3V* [facility] [employer] Other XR wrist LT min 3V* [facility] [place] [employer] Other XR wrist LT min 3V* [address] [facility] [employer] Other XR wrist LT min 3V* [place] [address] [employer] Other XR wrist LT min 3V* XRay Report [employer] Other XR wrist LT min 3V* Signed [employer] Other XR wrist LT min 3V* Patient: Reba Gregory MR#: [id number] [employer] Other XR wrist LT min 3V* : 1955 Acct:[id number] [employer] Other XR wrist LT min 3V* Age/Sex: 67 / F ADM Date: 03/03/23 [employer] Other XR wrist LT min 3V* Loc: [facility] Room: Type : [facility] [employer] Other XR wrist LT min 3V* Attending Dr: Kim Munson MD [employer] Other XR wrist LT min 3V* Copies to: Kiana Munson MD [employer] Other XR wrist LT min 3V* Ordering Provider: Kiana Munson MD [employer] Other XR wrist LT min 3V* Date of Service: 03/03/23 [employer] Other XR wrist LT min 3V* XR/XR wrist LT min 3V*: Wrist arthritis;Mass of left hand [employer] Other XR wrist LT min 3V* LEFT WRIST - 4 views [employer] Other XR wrist LT min 3V* CLINICAL HISTORY: Le ft wrist pain for months. Possible cyst ulnar aspect of left hand. [employer] Other XR wrist LT min 3V* COMPARISON: None [employer] Other XR wrist LT min 3V* FINDINGS: [employer] Other XR wrist LT min 3V* No focal soft tissue abnormality is seen. No acute bony process is noted. There is widening of the [employer] Other XR wrist LT min 3V* scapholunate space w ith SLAC wrist deformity. Cystic changes are noted involving the capitate and [employer] Other XR wrist LT min 3V* hamate bones. No bon y erosions. Moderate degenerative changes are noted involving the CMC joint of [employer] Other XR wrist LT min 3V* the thumb. 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 NO ACUTE BONY PROCESS. [employer] Other XR wrist LT min 3V* DEGENERATIVE CHANGES , WORST AT THE CMC JOINT OF THE THUMB. [employer] Other XR wrist LT min 3V* Impression dictated by: Dave Espana Jr., D.OShannon03/03/2023 11:50 AM [employer] Other XR wrist LT min 3V* Dictation Location: [facility]-- [employer] Other XR wrist LT min 3V* Transcribed By: TANYA 03/03/23 1150 [employer] Other XR wrist LT min 3V* Dictated By: Dave Espana Jr, DO 03/03/23 1147 [employer] Other XR wrist LT min 3V* Signed By: [employer] Other XR wrist LT min 3V* 03/03/23 1150 No rth [facility] [employer] Other XR wrist LT min 3V* [address] [address] XRay Report Signed Patient: Reba Gregory MR#: [id number] : 1955 Acct:[id number] Age/Sex: 67 / F ADM Date: 03/03/23 [place]: [facility] [place]: Type: [facility] Attending Dr: Kiana Munson MD Copies to: [...] Espana Jr., D.O.03/03/2023 11:50 AM Dict[employer] Location: [place] [address] Transcribed By: [facility] 03/03/23 1150 Dictated By: Dave Espana Jr, DO 03/03/23 1147 Signed By: 03/03/23 1150 Normal [facility] XR knee LT 2Von 02-17-2023 XR knee LT 2V [facility] [employer] Other XR knee LT 2V [facility] [employer] Other XR knee LT 2V [address] [place] [address] [employer] Other XR knee [place] 2[place] [address] [employer] Other XR knee LT 2V XRay Report [facility] [employer] Other XR knee LT 2V Signed [employer] Other XR knee LT 2V Patient: Reba Gregory MR#: [id number] [employer] Other XR knee LT 2V : 1955 Acct:[id number] [employer] Other XR knee LT 2V Age/Sex: 67 / F ADM Date: 02/17/23 [employer] Other XR knee LT 2V Loc: [facility] Room: Type : [facility] [employer] Other XR knee LT 2V Attending Dr: Nabor Nelson II, MD [employer] Other XR knee LT 2V Copies to: Nabor Nelson MD [employer] Other XR knee LT 2V Ordering Provider: Ragini Nelson MD [employer] Other XR knee LT 2V Date of Service: 02/17/23 [employer] Other XR knee LT 2V XR/XR knee LT 2V: Aftercare following joint replacement surgery;Presence [employer] Other XR knee LT 2V of le [employer] Other XR knee LT 2V [address] ain film [employer] Other XR knee LT 2V COMPARISON: 05/28/2022 [employer] Other XR knee LT 2V HISTORY: Status post left total knee arthroplasty [employer] Other XR knee LT 2V ACUTE FINDINGS: None N [employer] Other XR knee LT 2V DEGENERATIVE CHANGE: Unremarkable [employer] Other XR knee LT 2V SOFT TISSUE FINDINGS : Unremarkable [employer] Other XR knee LT 2V JOINT EFFUSION: None N [employer] Other XR knee LT 2V POSTOP CHANGES: No hardware failure or loosening. [employer] Other XR knee LT 2V BONE MINERALIZATION: Adequate [employer] Other XR knee LT 2V X R/XR knee LT 2V [employer] Other XR knee LT 2V IMPRESSION: Stable l eft knee arthroplasty [employer] Other XR knee LT 2V Impression dictated by: Rome Guerra M.D.02/17/2023 1:58 PM [employer] Other XR knee LT 2V Dictation Location: [place] [address] [employer] Other XR knee LT 2V Transcribed By: PWS 02/17/23 [facility] [employer] Other XR knee LT 2V Dictated By: Phuc Guerra DO 02/17/23 [facility] [employer] Other XR knee LT 2V Signed By: [employer] Other XR knee LT 2V 02/17/23 [facility] [employer] Other XR knee LT 2V [facility] Main [place] [address] [place] [address] XRay Report Signed Patient: Reba Gregory MR#: [id number] : 1955 Acct:[id number] Age/Sex: 67 / F ADM Date: 02/17/23 [facility]: [facility]: [facility]: Nabor Nelson II, MD Copies [...] Rome Guerra M.D.02/17/2023 1:58 PM [employer]ict[employer] Location: [place] [address] Transcribed By: [facility] 02/17/23 1358 Dictated By: Rome Guerra DO 02/17/23 1357 Signed By: 02/17/23 1358 Normal [facility] Automated epithelial cells c ount in urine sediment (number/area)Ordered By: Nabor Wilson on 02-03-2023 Epithelial cells Auto (Urine sed) [#/Area] 0-1 [HPF] 0-2 [facility] Automated erythrocytes count in urine sediment (number/area)Ordered By: Nabor Wilson on 02-03-2023 RBC Auto (Urine sed) [#/Area] 0-1 [HPF] 0-4 [facility] Automated leukocytes count i n urine sediment (number/area)Ordered By: Nabor Wilson on 02-03-2023 WBC Auto (Urine sed) [#/Area] 0-1 [HPF] 0-4 [facility] Automated urine hyaline cast s count (number/volume)Ordered By: Nabor Wilson on 02-03-2023 Hyaline casts Auto (U) [#/Vol] None seen [LPF] 0-1 [facility] Bilirubin Test strip Ql (U)O rdered By: Nabor Wilson on 02-03-2023 Bilirubin Ql (U) Negative Negative [facility] [place] Calcium [Mass/volume] in 24 hour UrineOrdered By: Nabor Wilson on 02-03-2023 Calcium (24H U) [Mass/Vol] 1.1 mg/dL Not Estab. [facility] Calcium/Creatinine [Mass Rat io] in UrineOrdered By: Nabor Wilson on 02-03-2023 Calcium/Creatinine (U) [Mass ratio] 24 mg/g creat [address] [place] [address] Comment on above: Performed at: - L [address] [id number] Director: Matty Diaz PhD, Phone: [phone] Color Auto (U)Ordered By: Anne Wilson on 02-03-2023 Color (U) Yellow Yellow [facility] Creatinine [Mass/volume] in UrineOrdered By: Nabor Wilson on 02-03-2023 Creatinine (U) [Mass/Vol] 46.2 mg/dL Not Estab. [facility] Ketones Auto test strip (U) [Mass/Vol]Ordered By: Nabor Wilson on 02-03-2023 Ketones (U) [Mass/Vol] Negative Negative [facility] Nitrite Test strip Ql (U)Ord ered By: Nabor Wilson on 02-03-2023 Nitrite Ql (U) Negative Negative [facility] Protein Auto test strip (U) [Mass/Vol]Ordered By: Nabor Wilson on 02-03-2023 Protein (U) [Mass/Vol] Negative Negative [facility] Specific gravity Auto test s trip (U) [Rel density]Ordered By: Nabor Wilson on 02-03-2023 Specific gravity (U) [Rel density] 1.010 1.001-1.030 [facility] Urine bacteria detection by automated methodOrdered By: Nabor Wilson on 02-03-2023 Bacteria Auto Ql (U) None seen None Seen [facility] Urine clarity by refractomet ry automatedOrdered By: Nabor Wilson on 02-03-2023 Clarity Refractometry automated (U) Clear Clear [facility] Urine glucose measurement by automated test strip (mass/volume)Ordered By: Nabor Wilson on 02-03-2023 Glucose Auto test strip (U) [Mass/Vol] Normal mg/dL Normal [facility] Urine hemoglobin detection b y automated test stripOrdered By: Nabor Wilson on 02-03-2023 Hemoglobin Auto test strip Ql (U) Negative Negative [facility] Urine leukocyte esterase det ection by automated test stripOrdered By: Nabor Wilson on 02-03-2023 Leukocyte esterase Auto test strip Ql (U) Negative Negative [facility] Urobilinogen Auto test strip (U) [Mass/Vol]Ordered By: Nabor Wilson on 02-03-2023 Urobilinogen (U) [Mass/Vol] Normal mg/dL Normal [facility] pH Auto test strip (U)Ordere d By: Nabor Wilson on 02-03-2023 pH (U) 5.5 [pH] 5.0-9.0 [facility] C3 and C4 COMPLEMENTon 01-22 Complement C3, Serum 147 mg/dL Normal 82-167 [facility] Comment on above: Performed By: #### C SUITE #### [facility] [address] [place] [address] Dr. Agueda Wiley Complement C4, Serum 29 mg/dL Normal 12-38 [facility] Comment on above: Performed By: #### C SUITE #### [facility] [address] [place] [address] Dr. Agueda Wiley CBC AUTO DIFFon 01-21-2023 BASO # 0.1 103/ul Normal 0.0-0.1 [facility] Comment on above: Performed By: #### C MKIKI, LIVER #### [facility] [address] [address] [address] Agueda Wiley Basophils/100 WBC (Bld) 0.6 % Normal 0.2-2.0 [facility] Comment on above: Performed By: #### C MIKKI, LIVER #### [facility] [address] [address] [address] Agueda Wiley EO # 0.2 103/ul Normal 0.0-0.7 [facility] Comment on above: Performed By: #### C MIKKI, LIVER #### [facility] [address] [address] [address] Agueda Wiley Eosinophils/100 WBC (Bld) 1.7 % Normal 0.9-7.0 [facility] Comment on above: Performed By: #### C MIKKI, LIVER #### [facility] [address] [place] [address] Dr. Agueda Wiley Erythrocyte distribution width (RBC) [Ratio] 12.4 % Normal 11.0-15.0 [facility] Comment on above: Performed By: #### C MIKKI, LIVER #### [facility] [address] [place] [address] Dr. Agueda Wiley Hematocrit (Bld) [Volume fraction] 44.0 % Normal 36.0-48.0 [facility] Comment on above: Performed By: #### C MIKKI, LIVER #### [facility] [address] [place] [address] Dr. Agueda Wiley Hemoglobin (Bld) [Mass/Vol] 14.2 g/dL Normal 12.0-16.0 [facility] Comment on above: Performed By: #### C MIKKI, LIVER #### [facility] [address] [place] [address] Dr. Agueda Wiley IG # 0.03 10e3/ul Normal 0.00-0.03 [facility] Comment on above: Performed By: #### C MIKKI, LIVER #### [facility] [address] [place] [address] Dr. Agueda Wiley IG % 0.3 % Normal 0.0-0.5 [facility] Comment on above: Performed By: #### C MIKKI, LIVER #### [facility] [address] [place] [address] Dr. Agueda Wiley LYMPH # 2.2 103/ul Normal 1.2-3.8 [facility] Comment on above: Performed By: #### C MIKKI, LIVER #### [facility] [address] [place] [address] Dr. Agueda Wiley Lymphocytes/100 WBC (Bld) 21.1 % Normal 20.5-60.0 [facility] Comment on above: Performed By: #### C MIKKI, LIVER #### [facility] [address] [place] [address] Dr. Agueda Wiley MANUAL DIFF REQ NO Normal [facility] Comment on above: Performed By: #### C MIKKI, LIVER #### [facility] [address] [place] [address] Dr. Agueda Wiley MCH (RBC) [Entitic mass] 29.8 pg Normal 26.7-34.0 [facility] Comment on above: Performed By: #### C MIKKI, LIVER #### [facility] [address] [place] [address] Dr. Agueda Wiley MCHC (RBC) [Mass/Vol] 32.3 g/dL Normal 29.9-35.2 [facility] Comment on above: Performed By: #### C MIKKI, LIVER #### [facility] [address] [place] [address] Dr. Agueda Wiley MCV (RBC) [Entitic vol] 92.2 fL Normal 81.0-99.0 [facility] Comment on above: Performed By: #### C MIKKI, LIVER #### [facility] [address] [place] [address] Dr. Agueda Wiley MONO # 1.0 103/ul Critically high 0.3-0.8 [facility] Comment on above: Performed By: #### C MIKKI, LIVER #### [facility] [address] [place] [address] Dr. Agueda Wiley Monocytes/100 WBC (Bld) 9.2 % Normal 1.7-12.0 [facility] Comment on above: Performed By: #### C MIKKI, LIVER #### [facility] [address] [place] [address] Dr. Agueda Wiley NEUT # 7.0 103/ul Critically high 1.4-6.5 [facility] Comment on above: Performed By: #### C MIKKI, LIVER #### [facility] [address] [place] [address] Dr. Agueda Wiley Neutrophils/100 WBC (Bld) 67.1 % Normal 43.0-75.0 [facility] Comment on above: Performed By: #### C MIKKI, LIVER #### [facility] [address] [place] [address] Dr. Agueda Wiley Platelet mean volume (Bld) [Entitic vol] 11.6 fL Normal 9.5-13.5 [facility] Comment on above: Performed By: #### C MIKKI, LIVER #### [facility] [address] [address] [address] Agueda Wiley PLT 289 103/ul Normal 150-450 [facility] Comment on above: Performed By: #### C MIKKI, LIVER #### [facility] [address] [address] [address] Agueda Wiley RBC 4.77 106/ul Normal 4.20-5.40 [facility] Comment on above: Performed By: #### C MIKKI, LIVER #### [facility] [address] [address] [address] Agueda Wiley WBC 10.5 103/ul Normal 4.0-11.0 [facility] Comment on above: Performed By: #### C MIKKI, LIVER #### [facility] [address] [place] [address] Dr. Agueda Wiley CREATININEon 01-21-2023 Creatinine [Mass/Vol] 1.19 mg/dL Critically high 0.55-1.02 [facility] Comment on above: Performed By: #### C MIKKI, LIVER, CRP #### [facility] [address] [place] [address] Dr. Agueda Wiley EGFR-AF PALAUAN 55 mL/min/1.73m2 Critically low >=60 [facility] Comment on above: Performed By: #### C MIKKI, LIVER, CRP #### [facility] [address] [place] [address] Dr. Agueda Wiley EGFR-NON AF PALAUAN 45 mL/min/1.73m2 Critically low >=60 [facility] Comment on above: Performed By: #### C MIKKI, LIVER, CRP #### [facility] [address] [place] [address] Dr. Agueda Wiley CRPon 01-21-2023 CRP [Mass/Vol] mg/L Normal <=1.0 [facility] Comment on above: Performed By: #### C MIKKI, LIVER, CRP #### [facility] [address] [address] [address] Agueda Wiley LIVER PROFILEon 01-21-2023 Albumin [Mass/Vol] 3.5 g/dL Normal 3.4-5.0 [facility] Comment on above: Performed By: #### C MIKKI, LIVER, CRP #### [facility] [address] [place] [address] Dr. Agueda Wiley Albumin/Globulin [Mass ratio] 0.8 {ratio} Normal [facility] Comment on above: Performed By: #### C MIKKI, LIVER, CRP #### [facility] [address] [address] [address] Agueda Wiley ALP [Catalytic activity/Vol] 87 U/L Normal 46-116 [facility] Comment on above: Performed By: #### C MIKKI, LIVER, CRP #### [facility] [address] [place] [address] Dr. Agueda Wiley ALT [Catalytic activity/Vol] 33 U/L Normal 14-59 [facility] Comment on above: Performed By: #### C MIKKI, LIVER, CRP #### [facility] [address] [place] [address] Dr. Agueda Wiley AST [Catalytic activity/Vol] 22 U/L Normal 15-37 [facility] Comment on above: Performed By: #### C MIKKI, LIVER, CRP #### [facility] [address] [place] [address] Dr. Agueda Wiley BILI, CONJUGATED 0.1 mg/dL Normal 0.0-0.2 [facility] Comment on above: Performed By: #### C MIKKI, LIVER, CRP #### [facility] [address] [place] [address] Dr. Agueda Wiley Bilirubin [Mass/Vol] 0.4 mg/dL Normal 0.2-1.0 [facility] Comment on above: Performed By: #### C MIKKI, LIVER, CRP #### [facility] [address] [place] [address] Dr. Agueda Wiley Globulin (S) [Mass/Vol] 4.2 g/dL Normal [facility] Comment on above: Performed By: #### C MIKKI, LIVER, CRP #### [facility] [address] [place] [address] Dr. Agueda Wiley Protein [Mass/Vol] 7.7 g/dL Normal 6.4-8.2 [facility] Comment on above: Performed By: #### C MIKKI, LIVER, CRP #### [facility] [address] [place] [address] Dr. Agueda Wiley SED RATE WESTERGRENon 2022 SED RATE 26 mm/hr Normal <=30 [facility] Comment on above: Performed By: #### A NAIFA #### [facility] [address] [place] [address] Dr. Agueda Wiley UA RANDOM W/MICROSCOPICon BACTERIA TRACE Abnormal NONE SEEN [facility] Comment on above: Performed By: #### C MIKKI, LIVER #### [facility] [address] [place] [address] Dr. Agueda Wiley Bilirubin Ql (U) Negative Normal NEGATIVE [facility] Comment on above: Performed By: #### C MIKKI, LIVER #### [facility] [address] [place] [address] Dr. Agueda Wiley CAST NONE SEEN Normal NONE SEEN [facility] Comment on above: Performed By: #### C MIKKI, LIVER #### [facility] [address] [place] [address] Dr. Agueda Wiley Clarity (U) CLEAR Normal CLEAR [facility] Comment on above: Performed By: #### C MIKKI, LIVER #### [facility] [address] [place] [address] Dr. Agueda Wiley Color (U) YELLOW Normal YELLOW [facility] Comment on above: Performed By: #### C MIKKI, LIVER #### [facility] [address] [place] [address] Dr. Agueda Wiley Crystals LM Nom (Urine sed) NONE SEEN Normal NONE SEEN [facility] Comment on above: Performed By: #### C MIKKI, LIVER #### [facility] [address] [place] [address] Dr. Agueda Wiley Epithelial cells LM Ql (Urine sed) FEW Abnormal NONE SEEN /RARE [facility] Comment on above: Performed By: #### C MIKKI, LIVER #### [facility] [address] [address] [address] Agueda Wiley Glucose Ql (U) Negative Normal NEGATIVE [facility] Comment on above: Performed By: #### C MIKKI, LIVER #### [facility] [address] [address] [address] Agueda Wiley Hemoglobin Ql (U) Negative Normal NEGATIVE [facility] Comment on above: Performed By: #### C MIKKI, LIVER #### [facility] [address] [address] [address] Agueda Wiley Ketones Ql (U) Negative Normal NEGATIVE [facility] Comment on above: Performed By: #### C MIKKI, LIVER #### [facility] [address] [place] [address] Dr. Agueda Wiley LEUKOCYTES Negative Normal NEGATIVE [facility] Comment on above: Performed By: #### C MIKKI, LIVER #### [facility] [address] [address] [address] Agueda Wiley MUCOUS MODERATE Abnormal NONE SEEN [facility] Comment on above: Performed By: #### C MIKKI, LIVER #### [facility] [address] [place] [address] Dr. Agudea Wiley Nitrite Ql (U) Negative Normal NEGATIVE [facility] Comment on above: Performed By: #### C MIKKI, LIVER #### [facility] [address] [place] [address] Dr. Agueda Wiley pH (U) 5.0 [pH] Normal 5-9 [facility] Comment on above: Performed By: #### C MIKKI, LIVER #### [facility] [address] [address] [address] Agueda Wiley RBC 2-5 Abnormal 0-2 [facility] Comment on above: Performed By: #### C MIKKI, LIVER #### [facility] [address] [place] [address] Dr. Agueda Wiley SPEC GRAVITY >=1.030 Abnormal 1.005-<=1.0 25 [facility] Comment on above: Performed By: #### C MIKKI, LIVER #### [facility] [address] [address] [address] Agueda Wiley UA PROTEIN 100 mg/dl Abnormal NEGATIVE/ TRACE [facility] Comment on above: Performed By: #### C MIKKI, LIVER #### [facility] [address] [place] [address] Dr. Agueda Wiley Urobilinogen Qn (U) 1.0 {[place]'U}/dL Normal 0.2 - 1. 0 [facility] Comment on above: Performed By: #### C MIKKI, LIVER #### [facility] [address] [place] [address] Dr. Agueda Wiley WBC 0-2 Abnormal NONE SEEN [facility] Comment on above: Performed By: #### C MIKKI, LIVER #### [facility] [address] [place] [address] Dr. Agueda Wiley CBC AUTO DIFFon 11-27-2022 BASO # 0.0 103/ul Normal 0.0-0.1 [facility] Comment on above: Performed By: #### C MIKKI, LIVER #### [facility] [address] [place] [address] Dr. Agueda Wiley Basophils/100 WBC (Bld) 0.3 % Normal 0.2-2.0 [facility] Comment on above: Performed By: #### C MIKKI, LIVER #### [facility] [address] [place] [address] Dr. Agueda Wiley EO # 0.1 103/ul Normal 0.0-0.7 [facility] Comment on above: Performed By: #### C MIKKI, LIVER #### [facility] [address] [place] [address] Dr. Agueda Wiley Eosinophils/100 WBC (Bld) 0.9 % Normal 0.9-7.0 [facility] Comment on above: Performed By: #### C MIKKI, LIVER #### [facility] [address] [place] [address] Dr. Agueda Wiley Erythrocyte distribution width (RBC) [Ratio] 15.8 % Critically high 11.0-15.0 [facility] Comment on above: Performed By: #### C MIKKI, LIVER #### [facility] [address] [place] [address] Dr. Agueda Wiley Hematocrit (Bld) [Volume fraction] 39.6 % Normal 36.0-48.0 [facility] Comment on above: Performed By: #### C MIKKI, LIVER #### [facility] [address] [place] [address] Dr. Agueda Wiley Hemoglobin (Bld) [Mass/Vol] 12.7 g/dL Normal 12.0-16.0 [facility] Comment on above: Performed By: #### C MIKKI, LIVER #### [facility] [address] [place] [address] Dr. Agueda Wiley IG # 0.08 10e3/ul Critically high 0.00-0.03 [facility] Comment on above: Performed By: #### C MIKKI, LIVER #### [facility] [address] [place] [address] Dr. Agueda Wiley IG % 0.6 % Critically high 0.0-0.5 [facility] Comment on above: Performed By: #### C MIKKI, LIVER #### [facility] [address] [place] [address] Dr. Agueda Wiley LYMPH # 1.2 103/ul Normal 1.2-3.8 [facility] Comment on above: Performed By: #### C MIKKI, LIVER #### [facility] [address] [place] [address] Dr. Agueda Wiley Lymphocytes/100 WBC (Bld) 8.6 % Critically low 20.5-60.0 [facility] Comment on above: Performed By: #### C MIKKI, LIVER #### [facility] [address] [place] [address] Dr. Agueda Wiley MANUAL DIFF REQ NO Normal [facility] Comment on above: Performed By: #### C MIKKI, LIVER #### [facility] [address] [place] [address] Dr. Agueda Wiley MCH (RBC) [Entitic mass] 29.5 pg Normal 26.7-34.0 [facility] Comment on above: Performed By: #### C MIKKI, LIVER #### [facility] [address] [place] [address] Dr. Agueda Wiley MCHC (RBC) [Mass/Vol] 32.1 g/dL Normal 29.9-35.2 [facility] Comment on above: Performed By: #### C MIKKI, LIVER #### [facility] [address] [place] [address] Dr. Agueda Wiley MCV (RBC) [Entitic vol] 92.1 fL Normal 81.0-99.0 [facility] Comment on above: Performed By: #### C MIKKI, LIVER #### [facility] [address] [place] [address] Dr. Agueda Wiley MONO # 0.9 103/ul Critically high 0.3-0.8 [facility] Comment on above: Performed By: #### C MIKKI, LIVER #### [facility] [address] [place] [address] Dr. Agueda Wiley Monocytes/100 WBC (Bld) 7.0 % Normal 1.7-12.0 [facility] Comment on above: Performed By: #### C MIKKI, LIVER #### [facility] [address] [place] [address] Dr. Agueda Wiley NEUT # 11.1 103/ul Critically high 1.4-6.5 [facility] Comment on above: Performed By: #### Gila KAYE, LIVER #### [facility] [address] [place] [address] Dr. Aguead Wiley Neutrophils/100 WBC (Bld) 82.6 % Critically high 43.0-75.0 [facility] Comment on above: Performed By: #### C MIKKI, LIVER #### [facility] [address] [place] [address] Dr. Agueda Wiley Platelet mean volume (Bld) [Entitic vol] 11.3 fL Normal 9.5-13.5 [facility] Comment on above: Performed By: #### C MIKKI, LIVER #### [facility] [address] [address] [address] Agueda Wiley PLT 245 103/ul Normal 150-450 [facility] Comment on above: Performed By: #### C MIKKI, LIVER #### [facility] [address] [address] [address] Agueda Wiley RBC 4.30 106/ul Normal 4.20-5.40 [facility] Comment on above: Performed By: #### C MIKKI, LIVER #### [facility] [address] [address] [address] Agueda Wiley WBC 13.5 103/ul Critically high 4.0-11.0 [facility] Comment on above: Performed By: #### C MIKKI, LIVER #### [facility] [address] [place] [address] Dr. Agueda Wiley CREATININEon 11-27-2022 Creatinine [Mass/Vol] 1.13 mg/dL Critically high 0.55-1.02 [facility] Comment on above: Performed By: #### C MIKKI, LIVER #### [facility] [address] [address] [address] Agueda Wiley EGFR-AF PALAUAN 58 mL/min/1.73m2 Critically low >=60 [facility] Comment on above: Performed By: #### C MIKKI, LIVER #### [facility] [address] [address] [address] Agueda Wiley EGFR-NON AF PALAUAN 48 mL/min/1.73m2 Critically low >=60 [facility] Comment on above: Performed By: #### C MIKKI, LIVER #### [facility] [address] [address] [address] Agueda Wiley LIVER PROFILEon 11-27-2022 Albumin [Mass/Vol] 3.4 g/dL Normal 3.4-5.0 [facility] Comment on above: Performed By: #### C MIKKI, LIVER #### [facility] [address] [address] [address] Agueda Wiley Albumin/Globulin [Mass ratio] 1.0 {ratio} Normal [facility] Comment on above: Performed By: #### C MIKKI, LIVER #### [facility] [address] [place] [address] Dr. Agueda Wiley ALP [Catalytic activity/Vol] 67 U/L Normal 46-116 [facility] Comment on above: Performed By: #### C MIKKI, LIVER #### [facility] [address] [place] [address] Dr. Agueda Wiley ALT [Catalytic activity/Vol] 37 U/L Normal 14-59 [facility] Comment on above: Performed By: #### C MIKKI, LIVER #### [facility] [address] [place] [address] Dr. Agueda Wiley AST [Catalytic activity/Vol] 20 U/L Normal 15-37 [facility] Comment on above: Performed By: #### C MIKKI, LIVER #### [facility] [address] [place] [address] Dr. Agueda Wiley BILI, CONJUGATED 0.1 mg/dL Normal 0.0-0.2 [facility] Comment on above: Performed By: #### C MIKKI, LIVER #### [facility] [address] [place] [address] Dr. Agueda Wiley Bilirubin [Mass/Vol] 0.4 mg/dL Normal 0.2-1.0 [facility] Comment on above: Performed By: #### C MIKKI, LIVER #### [facility] [address] [place] [address] Dr. Agueda Wiley Globulin (S) [Mass/Vol] 3.4 g/dL Normal [facility] Comment on above: Performed By: #### C MIKKI, LIVER #### [facility] [address] [place] [address] Dr. Agueda Wiley Protein [Mass/Vol] 6.8 g/dL Normal 6.4-8.2 [facility] Comment on above: Performed By: #### C MIKKI, LIVER #### [facility] [address] [place] [address] Dr. Agueda Wiley [facility] mm/hr Normal <=30 [facility] Comment on above: Performed By: #### C MIKKI, LIVER #### [facility] [address] [place] [address] Dr. Agueda Wiley CBC AUTO DIFFon 10-05-2022 BASO # 0.0 103/ul Normal 0.0-0.1 [facility] Comment on above: Performed By: #### C MIKKI, LIVER #### [facility] [address] [place] [address] Dr. Agueda Wiley Basophils/100 WBC (Bld) 0.3 % Normal 0.2-2.0 [facility] Comment on above: Performed By: #### Gila KAYE, LIVER #### [facility] [address] [place] [address] Dr. Agueda Wliey EO # 0.1 103/ul Normal 0.0-0.7 [facility] Comment on above: Performed By: #### Gila KAYE, LIVER #### [facility] [address] [place] [address] Dr. Agueda Wiley Eosinophils/100 WBC (Bld) 0.6 % Critically low 0.9-7.0 [facility] Comment on above: Performed By: #### Gila KAYE, LIVER #### [facility] [address] [place] [address] Dr. Agueda Wiley Erythrocyte distribution width (RBC) [Ratio] 14.0 % Normal 11.0-15.0 [facility] Comment on above: Performed By: #### Gila KAYE, LIVER #### [facility] [address] [place] [address] Dr. Agueda Wiley Hematocrit (Bld) [Volume fraction] 38.5 % Normal 36.0-48.0 [facility] Comment on above: Performed By: #### Gila KAYE, LIVER #### [facility] [address] [place] [address] Dr. Agueda Wiley Hemoglobin (Bld) [Mass/Vol] 13.3 g/dL Normal 12.0-16.0 [facility] Comment on above: Performed By: #### C MIKKI, LIVER #### [facility] [address] [address] [address] Agueda Wiley IG # 0.03 10e3/ul Normal 0.00-0.03 [facility] Comment on above: Performed By: #### C MIKKI, LIVER #### [facility] [address] [address] [address] Agueda Wiley IG % 0.3 % Normal 0.0-0.5 [facility] Comment on above: Performed By: #### C MIKKI, LIVER #### [facility] [address] [place] [address] Dr. Agueda Wiley LYMPH # 1.2 103/ul Normal 1.2-3.8 [facility] Comment on above: Performed By: #### C MIKKI, LIVER #### [facility] [address] [place] [address] Dr. Agueda Wiley Lymphocytes/100 WBC (Bld) 10.3 % Critically low 20.5-60.0 [facility] Comment on above: Performed By: #### C MIKKI, LIVER #### [facility] [address] [address] [address] Agueda Wiley MANUAL DIFF REQ NO Normal [facility] Comment on above: Performed By: #### C MIKKI, LIVER #### [facility] [address] [place] [address] Dr. Agueda Wiley MCH (RBC) [Entitic mass] 29.1 pg Normal 26.7-34.0 [facility] Comment on above: Performed By: #### C MIKKI, LIVER #### [facility] [address] [place] [address] Dr. Agueda Wiley MCHC (RBC) [Mass/Vol] 34.5 g/dL Normal 29.9-35.2 [facility] Comment on above: Performed By: #### C MIKKI, LIVER #### [facility] [address] [place] [address] Dr. Agueda Wiley MCV (RBC) [Entitic vol] 84.2 fL Normal 81.0-99.0 [facility] Comment on above: Performed By: #### C MIKKI, LIVER #### [facility] [address] [address] [address] Agueda Wiley MONO # 0.6 103/ul Normal 0.3-0.8 [facility] Comment on above: Performed By: #### C MIKKI, LIVER #### [facility] [address] [place] [address] Dr. Agueda Wiley Monocytes/100 WBC (Bld) 5.0 % Normal 1.7-12.0 [facility] Comment on above: Performed By: #### C MIKKI, LIVER #### [facility] [address] [place] [address] Dr. Agueda Wiley NEUT # 9.9 103/ul Critically high 1.4-6.5 [facility] Comment on above: Performed By: #### C MIKKI, LIVER #### [facility] [address] [place] [address] Dr. Agueda Wiley Neutrophils/100 WBC (Bld) 83.5 % Critically high 43.0-75.0 [facility] Comment on above: Performed By: #### C MIKKI, LIVER #### [facility] [address] [place] [address] Dr. Agueda Wiley Platelet mean volume (Bld) [Entitic vol] 10.8 fL Normal 9.5-13.5 [facility] Comment on above: Performed By: #### C MIKKI, LIVER #### [facility] [address] [place] [address] Dr. Agueda Wiley PLT 265 103/ul Normal 150-450 [facility] Comment on above: Performed By: #### C MIKKI, LIVER #### [facility] [address] [place] [address] Dr. Agueda Wiley RBC 4.57 106/ul Normal 4.20-5.40 [facility] Comment on above: Performed By: #### C MIKKI, LIVER #### [facility] [address] [place] [address] Dr. Agueda Wiley WBC 11.9 103/ul Critically high 4.0-11.0 [facility] Comment on above: Performed By: #### C MIKKI, LIVER #### [facility] [address] [place] [address] Dr. Agueda Wiley CREATININEon 10-05-2022 Creatinine [Mass/Vol] 0.92 mg/dL Normal 0.55-1.02 [facility] Comment on above: Performed By: #### C MIKKI, LIVER #### [facility] [address] [place] [address] Dr. Agueda Wiley EGFR-AF PALAUAN >60 Normal >=60 [facility] Comment on above: Performed By: #### C MIKKI, LIVER #### [facility] [address] [place] [address] Dr. Agueda Wiley EGFR-NON AF PALAUAN >60 Normal >=60 [facility] Comment on above: Performed By: #### C MIKKI, LIVER #### [facility] [address] [place] [address] Dr. Agueda Wiley LIVER PROFILEon 10-05-2022 Albumin [Mass/Vol] 3.4 g/dL Normal 3.4-5.0 [facility] Comment on above: Performed By: #### C MIKKI, LIVER #### [facility] [address] [place] [address] Dr. Agueda Wiley Albumin/Globulin [Mass ratio] 1.0 {ratio} Normal [facility] Comment on above: Performed By: #### C MIKKI, LIVER #### [facility] [address] [place] [address] Dr. Agueda Wiley ALP [Catalytic activity/Vol] 90 U/L Normal 46-116 [facility] Comment on above: Performed By: #### C MIKKI, LIVER #### [facility] [address] [place] [address] Dr. Agueda Wiley ALT [Catalytic activity/Vol] 35 U/L Normal 14-59 [facility] Comment on above: Performed By: #### C MIKKI, LIVER #### [facility] [address] [place] [address] Dr. Agueda Wiley AST [Catalytic activity/Vol] 21 U/L Normal 15-37 [facility] Comment on above: Performed By: #### C MIKKI, LIVER #### [facility] [address] [place] [address] Dr. Agueda Wiley BILI, CONJUGATED 0.1 mg/dL Normal 0.0-0.2 [facility] Comment on above: Performed By: #### C MIKKI, LIVER #### [facility] [address] [place], [place] [id number] Dr. Agueda Wiley Bilirubin [Mass/Vol] 0.6 mg/dL Normal 0.2-1.0 [facility] Comment on above: Performed By: #### C MIKKI, LIVER #### [facility] [address] [place] [address] Dr. Agueda Wiley Globulin (S) [Mass/Vol] 3.5 g/dL Normal [facility] Comment on above: Performed By: #### C MIKKI, LIVER #### [facility] [address] [place] [address] Dr. Agueda Wiley Protein [Mass/Vol] 6.9 g/dL Normal 6.4-8.2 [facility] Comment on above: Performed By: #### C MIKKI, LIVER #### [facility] [address] [place] [address] Dr. Agueda Wiley SED RATE [facility] 2022 SED RATE 27 mm/hr Normal <=30 [facility] Comment on above: Performed By: #### C MIKKI, LIVER #### [facility] [address] [place] [address] Dr. Agueda Wiley XR hand RT min 3V*on 023 XR hand RT min 3V* [facility] [employer] Other XR hand RT min 3V* [facility] [employer] Other XR hand RT min 3V* [address] [place] [address] [employer] Other XR hand RT min 3V* [address] [employer] Other XR hand RT min 3V* XRay Report [employer] Other XR hand RT min 3V* Signed [employer] Other XR hand RT min 3V* Patient: Reba Gregory MR#: [id number] [employer] Other XR hand RT min 3V* : 1955 Acct:[id number] [employer] Other XR hand RT min 3V* Age/Sex: 66 / F ADM Date: 09/23/22 [employer] Other XR hand RT min 3V* [place] [facility] [place] Type : [facility] [employer] Other XR hand RT min 3V* Attending Dr: Kim Munson MD [employer] Other XR hand RT min 3V* Copies to: Kiana Munson MD [employer] Other XR hand RT min 3V* Ordering Provider: Kiana Munson MD [employer] Other XR hand RT min 3V* Date of Service: 09/23/22 [employer] Other XR hand RT min 3V* XR/XR hand RT min 3V*: Lesion of finger [employer] Other XR hand RT min 3V* RIGHT HAND - 4 views [employer] Other XR hand RT min 3V* REASON FOR EXAM: Rig ht fourth digit ischemia for one month. Mass on top of right fourth digit. [employer] Other XR hand RT min 3V* COMPARISON: None [employer] Other XR hand RT min 3V* FINDINGS: [employer] Other XR hand RT min 3V* No focal soft tissue abnormality is seen. No radiopaque foreign body. No acute bony process is [employer] Other XR hand RT min 3V* noted. Mild degenera tive changes involving the CMC joint of the thumb. No bony erosions are noted. [employer] Other XR hand RT min 3V* X R/XR hand RT min 3V* [employer] Other XR hand RT min 3V* IMPRESSION: [employer] Other XR hand RT min 3V* MILD DEGENERATIVE CH ANGES WITHOUT ACUTE BONY PROCESS. [employer] Other XR hand RT min 3V* Impression dictated by: Dave Espana Jr., D.O.09/23/2022 4:30 PM [employer] Other XR hand RT min 3V* Dictation Location: [place] [address] [employer] Other XR hand RT min 3V* Transcribed By: PWS 09/23/22 1630 [employer] Other XR hand RT min 3V* Dictated By: Dave Espana Jr, DO 09/23/22 1629 [employer] Other XR hand RT min 3V* Signed By: [employer] Other XR hand RT min 3V* 09/23/22 1630 [facility] [employer] Other Creatinine (Bld) [Mass/Vol]O rdered By: George Ryan on 09-08-2022 Creatinine [Mass/Vol] 0.9 mg/dL 0.6-1.3 [facility] Comment on above: ER/ESD physician is notified/shown all ISTAT results.Critical values may be confirmed by laboratory testing ifdeemed necessary by ER attending doctor. No Panel InformationOrdered By: George Ryan on 09-08-2022 POC Estimated GFR > 60 [facility] Comment on above: GFR estimated refere nce range: According to KDOQI guidelines, <60 ml/min/1.73m2 is sufficient to diagnose a patient with chronic kidney disease. POC Estimated GFR Non- Amer > 60 [facility] LUPUS ANTICOAGULANT PROFILEo n 09-04-2022 Anticardiolipin Ab, IgG <10 Normal [facility] Comment on above: Result Comment: Refe rence Range: Negative: <15 Indeterminate: 15 - 20 Low to medium positive: >20 - 80 High positive: >80 Performed By: #### C MIKKI, LIVER #### [facility] [address] [address] [address] Agueda Wiley Anticardiolipin Ab, IgM 34 MPL Critically high [facility] Comment on above: Result Comment: Refe rence Range: Negative: <13 Indeterminate: 13 - 20 Low to medium positive: >20 - 80 High positive: >80 Performed By: #### Gila KAYE, LIVER #### [facility] [address] [address] [address] Agueda Wiley APTT 1:1 SHRUB GROWER NIY Normal [facility] Comment on above: Result Comment: Test ing Not Indicated This test was developed and its performance characteristics determined by [facility]. It has not been cleared or approved by the [place] Food and Drug Administration. Performed By: #### Gila KAYE, LIVER #### [facility] [address] [address] [address] Agueda Wiley APTT 1:1 Saline NIY Normal [facility] Comment on above: Result Comment: Test ing Not Indicated This test was developed and its performance characteristics determined by [facility]. It has not been cleared or approved by the [place] Food and Drug Administration. Performed By: #### Gila KAYE, LIVER #### [facility] [address] [address] [address] Agueda Wiley aPTT Coag (Bld) [Time] 23.9 s Normal [facility] Comment on above: Result Comment: This test has not been validated for monitoring unfractionated heparin therapy. aPTT-based therapeutic ranges for unfractionated heparin therapy have not been established. Consider ordering Heparin anti-Xa (unfractionated). Reference Range: 18 years and older: 22.9 - 30.2 Performed By: #### Gila KAYE, LIVER #### [facility] [address] [address] [address] Agueda Wiley Beta-2 Glycoprotein I, IgA <10 Normal [facility] Comment on above: Result Comment: The reference interval reflects a 3SD or 99th percentile interval. Reference Range: Negative: <26 Performed By: #### C MIKKI, LIVER #### [facility] [address] [place] [address] Dr. Agueda Wiley Beta-2 Glycoprotein I, IgG <10 Normal [facility] Comment on above: Result Comment: The reference interval reflects a 3SD or 99th percentile interval. Reference Range: Negative: <21 Performed By: #### C MIKKI, LIVER #### [facility] [address] [place] [address] Dr. Agueda Wiley Beta-2 Glycoprotein I, IgM <10 Normal [facility] Comment on above: Result Comment: The reference interval reflects a 3SD or 99th percentile interval. Reference Range: Negative: <33 Performed By: #### C MIKKI, LIVER #### [facility] [address] [place] [address] Dr. Agueda BARRVT Confirm Seconds NIY Normal [facility] Comment on above: Result Comment: Test ing Not Indicated Performed By: #### C MIKKI, LIVER #### [facility] [address] [place] [address] Dr. Agueda Wiley DRVVT Ratio NIY Normal [facility] Comment on above: Result Comment: Test ing Not Indicated Performed By: #### C MIKKI, LIVER #### [facility] [address] [place] [address] Dr. Agueda Wiley DRVVT Screen Seconds 39.3 sec Normal [facility] Comment on above: Result Comment: Refe rence Range: <= 47.0 Performed By: #### C MIKKI, LIVER #### [facility] [address] [place] [address] Dr. Agueda Wiley Hexagonal Phospholipid Neutral 1 sec Normal [facility] Comment on above: Result Comment: This value is NEGATIVE. This is a qualitative assay and is therefore reported as positive for lupus anticoagulant or negative. The quantitative value is provided as an aid in diagnosis. Reference Range: 0 - 11 Performed By: #### C MIKKI LIVER #### [facility] [address] [place] [address] Dr. Agueda Wiley INR Coag (PPP) [Relative time] 1.0 {INR} Normal [facility] Comment on above: Result Comment: Refe rence Range: >1 month: 0.9 - 1.2 Performed By: #### C MIKKI LIVER #### [facility] [address] [address] [address] Agueda Wiley LAC Interpretation Comment Normal [facility] Comment on above: Result Comment: A [...] repeat testing may be indicated. Please contact [facility] [facility] if further clarification is needed. Performed By: #### C MIKKI LIVER #### [facility] [address] [place] [address] Dr. Agueda Wiley Platelet Neutralization 0.0 sec Normal [facility] Comment on above: Result Comment: Refe rence Range: 0.0 - 3.0 This test was developed and its performance characteristics determined by [employer]. It has not been cleared or approved by the Food and Drug Administration. Performed By: #### C MIKKI LIVER #### [facility] [address] [place] [address] Dr. Agueda Wiley PT Coag (PPP) [Time] 10.6 s Normal [facility] Comment on above: Result Comment: Refe rence Range: 18 years and older: 9.1 - 12.0 Performed By: #### C MIKKI LIVER #### [facility] [address] [place] [address] Dr. Agueda Wiley Thrombin Time 17.2 sec Normal [facility] Comment on above: Result Comment: Refe rence Range: 0.0 - 23.0 Performed By: #### C MIKKI LIVER #### [facility] [address] [address] [address] Agueda Wiley VAL by IFAon 09-03-2022 Antinuclear Antibodies, IFA Positive Abnormal [facility] Comment on above: Result Comment: Nega tive <1:80 Borderline 1:80 Positive >1:80 Performed By: #### A NAIFA #### [facility] [address] [address] [address] Agueda Wiley Centriole Pattern Normal [facility] Comment on above: Performed By: #### A NAIFA #### [facility] [address] [address] [address] Agueda Wiley Centromere Pattern Normal [facility] Comment on above: Performed By: #### A NAIFA #### [facility] [address] [address] [address] Agueda Wiley Homogeneous Pattern 1:320 Critically high [facility] Comment on above: Result Comment: ICAP nomenclature: AC-1 Performed By: #### A NAIFA #### [facility] [address] [address] [address] Agueda Wiley Midbody Pattern Normal [facility] Comment on above: Performed By: #### A NAIFA #### [facility] [address] [address] [address] Agueda Wiley Note: Comment Normal [facility] Comment on above: Result Comment: For more [...] titers Nucleosomes, Histones Drug-induced SLE Speckled Sm, CONTINUITY WRITER, SCL-70, SLE,MCTD,PSS (diffuse form), SS-A/SS-B Sjogrens Nucleolar SCL-70, PM-1/SCL High titers Scleroderma, PM/DM Centromere Centromere PSS (limited form) w/Crest syndrome variable Nuclear Dot [id number] Primary Biliary Cirrhosis Nuclear GP210, Primary Biliary Cirrhosis Membrane hank A,B,C Performed By: #### A DUANE #### [facility] [address] [place] [address] Dr. Agueda Wiley Nuclear Dot Pattern Normal [facility] Comment on above: Performed By: #### A NAIFA #### [facility] [address] [address] [address] gAueda Wiley Nuclear Membrane Pattern Normal [facility] Comment on above: Performed By: #### A NAIFA #### [facility] [address] [address] [address] Agueda Wiley Nucleolar Pattern Normal [facility] Comment on above: Performed By: #### A NAIFA #### [facility] [address] [address] [address] Agueda Wiley PCNA Pattern Normal [facility] Comment on above: Performed By: #### A NAIFA #### [facility] [address] [address] [address] Agueda Wiley Speckled Pattern Normal [facility] Comment on above: Performed By: #### A NAIFA #### [facility] [address] [place] [address] Dr. Agueda Wiley Spindle Apparatus Pattern Normal [facility] Comment on above: Performed By: #### A NAIFA #### [facility] [address] [place] [address] Dr. Agueda Wiley ANTI-DNA DS ABon 09-01-2022 Anti-DNA (DS) Ab Qn 1 IU/mL Normal 0-9 [facility] Comment on above: Result Comment: Nega tive <5 Equivocal 5 - 9 Positive >9 Performed By: #### C MIKKI LIVER #### [facility] [address] [place] [address] Dr. Agueda Wiley ANTICHROMATIN ANTIBODIESon 1 11-02-2021 Antichromatin Antibodies <0.2 Normal 0.0-0.9 [facility] Comment on above: Performed By: #### C MIKKI LIVER #### [facility] [address] [place] [address] Dr. Agueda Wiley C3 and C4 COMPLEMENTon 09-01 Complement C3, Serum 79 mg/dL Critically low 82-167 [facility] Comment on above: Performed By: #### C MIKKI, LIVER #### [facility] [address] [address] [address] Agueda Wiley Complement C4, Serum 18 mg/dL Normal 12-38 [facility] Comment on above: Performed By: #### C MIKKI, LIVER #### [facility] [address] [address] [address] Agueda Wiley COMPLEMENT TOTAL (CH50)on Complement, Total (CH50) >60 Normal >41 [facility] Comment on above: Result Comment: Age Male [...] values. Performed By: #### C SUITE #### [facility] [address] [place] [address] Dr. Agueda Wiley CONTINUITY WRITER ANTIBODIESon 09-01-2022 CONTINUITY WRITER Antibodies 0.2 AI Normal 0.0-0.9 [facility] Comment on above: Performed By: #### R NPAB #### [facility] [address] [place] [address] Dr. Agueda Wiley SJOGRENS ANTIBODIES (Anti SS A/B)on 09-01-2022 Sjogren's Anti-SS-A <0.2 Normal 0.0-0.9 [facility] Comment on above: Performed By: #### C SUITE #### [facility] [address] [place] [address] Dr. Agueda Wiley Sjogren's Anti-SS-B <0.2 Normal 0.0-0.9 [facility] Comment on above: Performed By: #### C SUITE #### [facility] [address] [place] [address] Dr. Agueda Wiley RAMOS ANTIBODIESon Ramos Antibodies 1.0 AI Critically high 0.0-0.9 [facility] Comment on above: Performed By: #### R NPAB #### [facility] [address] [address] [address] Agueda Wiley CBC AUTO DIFFon 08-31-2022 BASO # 0.1 103/ul Normal 0.0-0.1 [facility] Comment on above: Performed By: #### R NPAB #### [facility] [address] [address] [address] Agueda Wiley Basophils/100 WBC (Bld) 0.7 % Normal 0.2-2.0 [facility] Comment on above: Performed By: #### R NPAB #### [facility] [address] [place] [address] Dr. Agueda Wiley EO # 0.4 103/ul Normal 0.0-0.7 [facility] Comment on above: Performed By: #### R NPAB #### [facility] [address] [place] [address] Dr. Agueda Wiley Eosinophils/100 WBC (Bld) 6.1 % Normal 0.9-7.0 [facility] Comment on above: Performed By: #### R NPAB #### [facility] [address] [place] [address] Dr. Agueda Wiley Erythrocyte distribution width (RBC) [Ratio] 13.6 % Normal 11.0-15.0 [facility] Comment on above: Performed By: #### R NPAB #### [facility] [address] [place] [address] Dr. Agueda Wiley Hematocrit (Bld) [Volume fraction] 40.4 % Normal 36.0-48.0 [facility] Comment on above: Performed By: #### R NPAB #### [facility] [address] [place] [address] Dr. Agueda Wiley Hemoglobin (Bld) [Mass/Vol] 12.9 g/dL Normal 12.0-16.0 [facility] Comment on above: Performed By: #### R NPAB #### [facility] [address] [place] [address] Dr. Agueda Wiley IG # 0.04 10e3/ul Critically high 0.00-0.03 [facility] Comment on above: Performed By: #### R NPAB #### [facility] [address] [address] [address] Agueda Wiley IG % 0.6 % Critically high 0.0-0.5 [facility] Comment on above: Performed By: #### R NPAB #### [facility] [address] [place] [address] Dr. Agueda Wiley LYMPH # 1.4 103/ul Normal 1.2-3.8 [facility] Comment on above: Performed By: #### R NPAB #### [facility] [address] [place] [address] Dr. Agueda Wiley Lymphocytes/100 WBC (Bld) 20.6 % Normal 20.5-60.0 [facility] Comment on above: Performed By: #### R NPAB #### [facility] [address] [place] [address] Dr. Agueda Wiley MANUAL DIFF REQ NO Normal [facility] Comment on above: Performed By: #### R NPAB #### [facility] [address] [place] [address] Dr. Agueda Wiley MCH (RBC) [Entitic mass] 29.0 pg Normal 26.7-34.0 [facility] Comment on above: Performed By: #### R NPAB #### [facility] [address] [place] [address] Dr. Agueda Wiley MCHC (RBC) [Mass/Vol] 31.9 g/dL Normal 29.9-35.2 [facility] Comment on above: Performed By: #### R NPAB #### [facility] [address] [place] [address] Dr. Agueda Wiley MCV (RBC) [Entitic vol] 90.8 fL Normal 81.0-99.0 [facility] Comment on above: Performed By: #### R NPAB #### [facility] [address] [place] [address] Dr. Agueda Wiley MONO # 0.8 103/ul Normal 0.3-0.8 [facility] Comment on above: Performed By: #### R NPAB #### [facility] [address] [place] [address] Dr. Agueda Wiley Monocytes/100 WBC (Bld) 10.9 % Normal 1.7-12.0 [facility] Comment on above: Performed By: #### R NPAB #### [facility] [address] [place] [address] Dr. Agueda Wiley NEUT # 4.2 103/ul Normal 1.4-6.5 [facility] Comment on above: Performed By: #### R NPAB #### [facility] [address] [place] [address] Dr. Agueda Wiley Neutrophils/100 WBC (Bld) 61.1 % Normal 43.0-75.0 [facility] Comment on above: Performed By: #### R NPAB #### [facility] [address] [place] [address] Dr. Agueda Wiley Platelet mean volume (Bld) [Entitic vol] 10.9 fL Normal 9.5-13.5 [facility] Comment on above: Performed By: #### R NPAB #### [facility] [address] [place] [address] Dr. Agueda Wiley PLT 324 103/ul Normal 150-450 [facility] Comment on above: Performed By: #### R NPAB #### [facility] [address] [place] [address] Dr. Agueda Wiley RBC 4.45 106/ul Normal 4.20-5.40 [facility] Comment on above: Performed By: #### R NPAB #### [facility] [address] [place] [address] Dr. Agueda Wiley WBC 6.9 103/ul Normal 4.0-11.0 [facility] Comment on above: Performed By: #### R NPAB #### [facility] [address] [place] [address] Dr. Agueda Wiley CREATININEon 08-31-2022 Creatinine [Mass/Vol] 1.00 mg/dL Normal 0.55-1.02 [facility] Comment on above: Performed By: #### A NAIFA #### [facility] [address] [address] [address] Agueda Wiley EGFR-AF PALAUAN >60 Normal >=60 [facility] Comment on above: Performed By: #### A NAIFA #### [facility] [address] [address] [address] Agueda Wiley EGFR-NON AF PALAUAN 55 mL/min/1.73m2 Critically low >=60 [facility] Comment on above: Performed By: #### A NAIFA #### [facility] [address] [address] [address] Agueda Wiley CRPon 08-31-2022 CRP 0.8 mg/dL Normal <=1.0 [facility] Comment on above: Performed By: #### C MIKKI, LIVER #### [facility] [address] [place] [address] Dr. Agueda Wiley SED RATE [facility] 2021 SED RATE 85 mm/hr Critically high <=30 [facility] Comment on above: Performed By: #### C MIKKI, LIVER #### [facility] [address] [place] [address] Dr. Agueda Wiley STOOL CULTUREon 08-18-2022 Campylobacter Culture Final report Normal [facility] Comment on above: Performed By: #### C MIKKI, LIVER #### [facility] [address] [place] [address] Dr. Agueda Wiley E coli Shiga Toxin EIA Negative Normal Negative [facility] Comment on above: Performed By: #### C MIKKI, LIVER #### [facility] [address] [address] [address] Agueda Wiley Result 1 Comment Normal [facility] Comment on above: Result Comment: No S almonella or Shigella recovered. Performed By: #### C MIKKI, LIVER #### [facility] [address] [place] [address] Dr. Agueda Wiley Result Comment: No C ampylobacter species isolated. Salmonella/Shigella Screen Final report Normal [facility] Comment on above: Performed By: #### C MIKKI, LIVER #### [facility] [address] [place] [address] Dr. Agueda Wiley C. DIFF PCRon 08-14-2022 C. DIFFICILE PCR Positive Critically abnormal NEGATIVE [facility] Comment on above: Performed By: #### R NPAB #### [facility] [address] [place] [address] Dr. Agueda Wiley IMMUNOFIXATION(ERIN),PROTEIN ELEC(PE),FREon 08-14-2022 Albumin [Mass/Vol] 3.8 g/dL Normal 2.9-4.4 [facility] Comment on above: Performed By: #### A NAIFA #### [facility] [address] [place] [address] Dr. Agueda Wiley Albumin/Globulin [Mass ratio] 1.3 {ratio} Normal 0.7-1.7 [facility] Comment on above: Performed By: #### A NAIFA #### [facility] [address] [place] [address] Dr. Agueda Wiley Ytgrw-2-Pynvlgex 0.3 g/dL Normal 0.0-0.4 [facility] Comment on above: Performed By: #### A NAIFA #### [facility] [address] [place] [address] Dr. Agueda Wiley Uwyul-7-Asrjgreo 0.9 g/dL Normal 0.4-1.0 [facility] Comment on above: Performed By: #### A NAIFA #### [facility] [address] [place] [address] Dr. Agueda Wiley Beta Globulin 1.0 g/dL Normal 0.7-1.3 [facility] Comment on above: Performed By: #### A NAIFA #### [facility] [address] [place] [address] Dr. Agueda Wiley Free Defiance Lt Chains,S 28.5 mg/L Critically high 3.3-19.4 [facility] Comment on above: Performed By: #### A NAIFA #### [facility] [address] [place] [address] Dr. Agueda Wiley Free Lambda Lt Chains,S 16.7 mg/L Normal 5.7-26.3 [facility] Comment on above: Performed By: #### A NAIFA #### [facility] [address] [address] [address] Agueda Wiley Gamma Globulin 0.8 g/dL Normal 0.4-1.8 [facility] Comment on above: Performed By: #### A NAIFA #### [facility] [address] [address] [address] Agueda Wiley Globulin (S) [Mass/Vol] 3.0 g/dL Normal 2.2-3.9 [facility] Comment on above: Performed By: #### A NAIFA #### [facility] [address] [place] [address] Dr. Agueda Wiley Immunofixation Result, Serum Comment Normal [facility] Comment on above: Result Comment: No m onoclonality detected. Performed By: #### A NAIFA #### [facility] [address] [place] [address] Dr. Agueda Wiley Immunoglobulin A, Qn, Serum 179 mg/dL Normal 87-352 [facility] Comment on above: Performed By: #### A NAIFA #### [facility] [address] [place] [address] Dr. Agueda Wiley Immunoglobulin G, Qn, Serum 902 mg/dL Normal 586-1602 [facility] Comment on above: Performed By: #### A NAIFA #### [facility] [address] [place] [address] Dr. Agueda Wiley Immunoglobulin M, Qn, Serum 81 mg/dL Normal 26-217 [facility] Comment on above: Performed By: #### A NAIFA #### [facility] [address] [address] [address] Agueda Wiley Defiance/Lambda Ratio, S 1.71 Critically high 0.26-1.65 [facility] Comment on above: Performed By: #### A NAIFA #### [facility] [address] [place] [address] Dr. Agueda Wiley M-Richard Not Observed Normal Not Observed [facility] Comment on above: Performed By: #### A NAIFA #### [facility] [address] [place] [address] Dr. Agueda Wiley PDF . Normal [facility] Comment on above: Performed By: #### A NAIFA #### [facility] [address] [place] [address] Dr. Agueda Wiley Please note: Comment Normal [facility] Comment on above: Result Comment: Prot ein electrophoresis scan will follow via computer, mail, or hair salon manager delivery. Performed By: #### A NAIFA #### [facility] [address] [place] [address] Dr. Agueda Wiley Protein [Mass/Vol] 6.8 g/dL Normal 6.0-8.5 [facility] Comment on above: Performed By: #### A NAIFA #### [facility] [address] [place] [address] Dr. Agueda Wiley IMMUNOGLOBULINS IGA/IGM/IGG QUANTITATIVEon 08-14-2022 Immunoglobulin A, Qn, Serum 182 mg/dL Normal 87-352 [facility] Comment on above: Performed By: #### C MIKKI LIVER #### [facility] [address] [place] [address] Dr. Agueda Wiley Immunoglobulin G, Qn, Serum 923 mg/dL Normal 586-1602 [facility] Comment on above: Performed By: #### Gila KAYE, LIVER #### [facility] [address] [place] [address] Dr. Agueda Wiley Immunoglobulin M, Qn, Serum 82 mg/dL Normal 26-217 [facility] Comment on above: Performed By: #### C MIKKI, LIVER #### [facility] [address] [place] [address] Dr. Agueda Wiley CBC AUTO DIFFon 08-13-2022 BASO # 0.0 103/ul Normal 0.0-0.1 [facility] Comment on above: Performed By: #### R NPAB #### [facility] [address] [address] [address] Agueda Wiley Basophils/100 WBC (Bld) 0.4 % Normal 0.2-2.0 [facility] Comment on above: Performed By: #### R NPAB #### [facility] [address] [place] [address] Dr. Agueda Wiley EO # 0.2 103/ul Normal 0.0-0.7 [facility] Comment on above: Performed By: #### R NPAB #### [facility] [address] [place] [address] Dr. Agueda Wiley Eosinophils/100 WBC (Bld) 1.9 % Normal 0.9-7.0 [facility] Comment on above: Performed By: #### R NPAB #### [facility] [address] [place] [address] Dr. Agueda Wiley Erythrocyte distribution width (RBC) [Ratio] 13.8 % Normal 11.0-15.0 [facility] Comment on above: Performed By: #### R NPAB #### [facility] [address] [place] [address] Dr. Agueda Wiley Hematocrit (Bld) [Volume fraction] 41.4 % Normal 36.0-48.0 [facility] Comment on above: Performed By: #### R NPAB #### [facility] [address] [place] [address] Dr. Agueda Wiley Hemoglobin (Bld) [Mass/Vol] 13.5 g/dL Normal 12.0-16.0 [facility] Comment on above: Performed By: #### R NPAB #### [facility] [address] [place] [address] Dr. Agueda Wiley IG # 0.02 10e3/ul Normal 0.00-0.03 [facility] Comment on above: Performed By: #### R NPAB #### [facility] [address] [place] [address] Dr. Agueda Wiley IG % 0.2 % Normal 0.0-0.5 [facility] Comment on above: Performed By: #### R NPAB #### [facility] [address] [address] [address] Agueda Wiley LYMPH # 2.0 103/ul Normal 1.2-3.8 [facility] Comment on above: Performed By: #### R NPAB #### [facility] [address] [address] [address] Agueda Wiley Lymphocytes/100 WBC (Bld) 20.5 % Normal 20.5-60.0 [facility] Comment on above: Performed By: #### R NPAB #### [facility] [address] [address] [address] Agueda Wiley MANUAL DIFF REQ NO Normal [facility] Comment on above: Performed By: #### R NPAB #### [facility] [address] [place] [address] Dr. Agueda Wiley MCH (RBC) [Entitic mass] 29.1 pg Normal 26.7-34.0 [facility] Comment on above: Performed By: #### R NPAB #### [facility] [address] [address] [address] Agueda Wiley MCHC (RBC) [Mass/Vol] 32.6 g/dL Normal 29.9-35.2 [facility] Comment on above: Performed By: #### R NPAB #### [facility] [address] [place] [address] Dr. Agueda Wiley MCV (RBC) [Entitic vol] 89.2 fL Normal 81.0-99.0 [facility] Comment on above: Performed By: #### R NPAB #### [facility] [address] [address] [address] Agueda Wiley MONO # 0.8 103/ul Normal 0.3-0.8 [facility] Comment on above: Performed By: #### R NPAB #### [facility] [address] [address] [address] Agueda Wiley Monocytes/100 WBC (Bld) 8.6 % Normal 1.7-12.0 [facility] Comment on above: Performed By: #### R NPAB #### [facility] [address] [place] [address] Dr. Agueda Wiley NEUT # 6.6 103/ul Critically high 1.4-6.5 [facility] Comment on above: Performed By: #### R NPAB #### [facility] [address] [place] [address] Dr. Agueda Wiley Neutrophils/100 WBC (Bld) 68.4 % Normal 43.0-75.0 [facility] Comment on above: Performed By: #### R NPAB #### [facility] [address] [place] [address] Dr. Agueda Wiley Platelet mean volume (Bld) [Entitic vol] 10.0 fL Normal 9.5-13.5 [facility] Comment on above: Performed By: #### R NPAB #### [facility] [address] [place] [address] Dr. Agueda Wiley PLT 379 103/ul Normal 150-450 [facility] Comment on above: Performed By: #### R NPAB #### [facility] [address] [place] [address] Dr. Agueda Wiley RBC 4.64 106/ul Normal 4.20-5.40 [facility] Comment on above: Performed By: #### R NPAB #### [facility] [address] [place] [address] Dr. Agueda Wiley WBC 9.7 103/ul Normal 4.0-11.0 [facility] Comment on above: Performed By: #### R NPAB #### [facility] [address] [place] [address] Dr. Agueda Wliey CRPon 08-13-2022 CRP 0.2 mg/dL Normal <=1.0 [facility] Comment on above: Performed By: #### A NAIFA #### [facility] [address] [place] [address] Dr. Agueda Wiley PROF 14(COMP METB)on 022 Albumin [Mass/Vol] 3.4 g/dL Normal 3.4-5.0 [facility] Comment on above: Performed By: #### A NAIFA #### [facility] [address] [address] [address] Agueda Wiley Albumin/Globulin [Mass ratio] 0.8 {ratio} Normal [facility] Comment on above: Performed By: #### A NAIFA #### [facility] [address] [address] [address] Agueda Wiley ALP [Catalytic activity/Vol] 94 U/L Normal 46-116 [facility] Comment on above: Performed By: #### A NAIFA #### [facility] [address] [address] [address] Agueda Wiley ALT [Catalytic activity/Vol] 16 U/L Normal 14-59 [facility] Comment on above: Performed By: #### A NAIFA #### [facility] [address] [place] [address] Dr. Agueda Wiley Anion gap [Moles/Vol] 13.0 mmol/L Normal [facility] Comment on above: Performed By: #### A NAIFA #### [facility] [address] [address] [address] Agueda Wiley AST [Catalytic activity/Vol] 13 U/L Critically low 15-37 [facility] Comment on above: Performed By: #### A NAIFA #### [facility] [address] [place] [address] Dr. Agueda Wiley Bilirubin [Mass/Vol] 0.3 mg/dL Normal 0.2-1.0 [facility] Comment on above: Performed By: #### A NAIFA #### [facility] [address] [address] [address] Agueda Wiley Calcium [Mass/Vol] 9.1 mg/dL Normal 8.5-10.1 [facility] Comment on above: Performed By: #### A NAIFA #### [facility] [address] [address] [address] Agueda Wiley Chloride [Moles/Vol] 103 mmol/L Normal 98-107 [facility] Comment on above: Performed By: #### A NAIFA #### [facility] [address] [address] [address] Agueda Wiley CO2 [Moles/Vol] 25.8 mmol/L Normal 21.0-32.0 [facility] Comment on above: Performed By: #### A NAIFA #### [facility] [address] [address] [address] Agueda Wiley Creatinine [Mass/Vol] 0.94 mg/dL Normal 0.55-1.02 [facility] Comment on above: Performed By: #### A NAIFA #### [facility] [address] [address] [address] Agueda Wiley EGFR-AF PALAUAN >60 Normal >=60 [facility] Comment on above: Performed By: #### A NAIFA #### [facility] [address] [address] [address] Agueda Wiley EGFR-NON AF PALAUAN 59 mL/min/1.73m2 Critically low >=60 [facility] Comment on above: Performed By: #### A NAIFA #### [facility] [address] [address] [address] Agueda Wiley Globulin (S) [Mass/Vol] 4.1 g/dL Normal [facility] Comment on above: Performed By: #### A NAIFA #### [facility] [address] [address] [address] Agueda Wiley Glucose [Mass/Vol] 110 mg/dL Critically high 74-106 [facility] Comment on above: Performed By: #### A NAIFA #### [facility] [address] [address] [address] Agueda Wiley Potassium [Moles/Vol] 3.8 mmol/L Normal 3.5-5.1 [facility] Comment on above: Performed By: #### A NAIFA #### [facility] [address] [address] [address] Agueda Wiley Sodium [Moles/Vol] 138 mmol/L Normal 136-145 [facility] Comment on above: Performed By: #### A NAIFA #### [facility] [address] [place] [address] Dr. Agueda Wiley Urea nitrogen [Mass/Vol] 20.0 mg/dL Critically high 7.0-18.0 [facility] Comment on above: Performed By: #### A NAIFA #### [facility] [address] [place] [address] Dr. Agueda Wiley Urea nitrogen/Creatinine [Mass ratio] 21.3 mg/mg Normal [facility] Comment on above: Performed By: #### A NAIFA #### [facility] [address] [place] [address] Dr. Agueda Wiley SED RATE WESTERGRENon 2021 SED RATE 82 mm/hr Critically high <=30 [facility] Comment on above: Performed By: #### R NPAB #### [facility] [address] [place] [address] Dr. Agueda Wiley TOTAL PROTEIN SERUMon 2021 Protein [Mass/Vol] 7.5 g/dL Normal 6.4-8.2 [facility] Comment on above: Performed By: #### A NAIFA #### [facility] [address] [place] [address] Dr. Agueda Wiley XR CHEST 2 Von [...] by: TENZIN GENTILE Date: 2022-08-13 18:41 Normal [facility] CBC AUTO DIFFon 08-04-2022 BASO # 0.1 103/ul Normal 0.0-0.1 [facility] Comment on above: Performed By: #### A NAIFA #### [facility] [address] [place], [place] [id number] Dr. Agueda Wiley Basophils/100 WBC (Bld) 0.5 % Normal 0.2-2.0 [facility] Comment on above: Performed By: #### A NAIFA #### [facility] [address] [place] [address] Dr. Agueda Wiley EO # 0.1 103/ul Normal 0.0-0.7 [facility] Comment on above: Performed By: #### A NAIFA #### [facility] [address] [place] [address] Dr. Agueda Wiley Eosinophils/100 WBC (Bld) 0.7 % Critically low 0.9-7.0 [facility] Comment on above: Performed By: #### A NAIFA #### [facility] [address] [place] [address] Dr. Agueda Wiley Erythrocyte distribution width (RBC) [Ratio] 14.3 % Normal 11.0-15.0 [facility] Comment on above: Performed By: #### A NAIFA #### [facility] [address] [place] [address] Dr. Agueda Wiley Hematocrit (Bld) [Volume fraction] 37.3 % Normal 36.0-48.0 [facility] Comment on above: Performed By: #### A NAIFA #### [facility] [address] [place] [address] Dr. Agueda Wiley Hemoglobin (Bld) [Mass/Vol] 12.1 g/dL Normal 12.0-16.0 [facility] Comment on above: Performed By: #### A NAIFA #### [facility] [address] [place] [address] Dr. Agueda Wiley IG # 0.03 10e3/ul Normal 0.00-0.03 [facility] Comment on above: Performed By: #### A NAIFA #### [facility] [address] [place] [address] Dr. Agueda Wiley IG % 0.3 % Normal 0.0-0.5 [facility] Comment on above: Performed By: #### A NAIFA #### [facility] [address] [address] [address] Agueda Wiley LYMPH # 1.5 103/ul Normal 1.2-3.8 [facility] Comment on above: Performed By: #### A NAIFA #### [facility] [address] [address] [address] Agueda Wiley Lymphocytes/100 WBC (Bld) 15.8 % Critically low 20.5-60.0 [facility] Comment on above: Performed By: #### A NAIFA #### [facility] [address] [address] [address] Agueda Wiley MANUAL DIFF REQ NO Normal [facility] Comment on above: Performed By: #### A NAIFA #### [facility] [address] [place] [address] Dr. Agueda Wiley MCH (RBC) [Entitic mass] 29.6 pg Normal 26.7-34.0 [facility] Comment on above: Performed By: #### A NAIFA #### [facility] [address] [place] [address] Dr. Agueda Wiley MCHC (RBC) [Mass/Vol] 32.4 g/dL Normal 29.9-35.2 [facility] Comment on above: Performed By: #### A NAIFA #### [facility] [address] [place] [address] Dr. Agueda Wiley MCV (RBC) [Entitic vol] 91.2 fL Normal 81.0-99.0 [facility] Comment on above: Performed By: #### A NAIFA #### [facility] [address] [place] [address] Dr. Agueda Wiley MONO # 0.6 103/ul Normal 0.3-0.8 [facility] Comment on above: Performed By: #### A NAIFA #### [facility] [address] [place] [address] Dr. Agueda Wiley Monocytes/100 WBC (Bld) 6.2 % Normal 1.7-12.0 [facility] Comment on above: Performed By: #### A NAIFA #### [facility] [address] [address] [address] Agueda Wiley NEUT # 7.2 103/ul Critically high 1.4-6.5 [facility] Comment on above: Performed By: #### A NAIFA #### [facility] [address] [address] [address] Agueda Wiley Neutrophils/100 WBC (Bld) 76.5 % Critically high 43.0-75.0 [facility] Comment on above: Performed By: #### A NAIFA #### [facility] [address] [address] [address] Agueda Wiley Platelet mean volume (Bld) [Entitic vol] 11.0 fL Normal 9.5-13.5 [facility] Comment on above: Performed By: #### A NAIFA #### [facility] [address] [place] [address] Dr. Agueda Wiley PLT 298 103/ul Normal 150-450 [facility] Comment on above: Performed By: #### A NAIFA #### [facility] [address] [place] [address] Dr. Agueda Wiley RBC 4.09 106/ul Critically low 4.20-5.40 [facility] Comment on above: Performed By: #### A NAIFA #### [facility] [address] [place] [address] Dr. Agueda Wiley WBC 9.5 103/ul Normal 4.0-11.0 [facility] Comment on above: Performed By: #### A NAIFA #### [facility] [address] [place] [address] Dr. Agueda Wiley CREATININEon 08-04-2022 Creatinine [Mass/Vol] 0.93 mg/dL Normal 0.55-1.02 [facility] Comment on above: Performed By: #### C MIKKI, LIVER #### [facility] [address] [place] [address] Dr. Agueda Wiley EGFR-AF PALAUAN >60 Normal >=60 [facility] Comment on above: Performed By: #### C MIKKI, LIVER #### [facility] [address] [address] [address] Agueda Wiley EGFR-NON AF PALAUAN =60 Normal >=60 [facility] Comment on above: Performed By: #### C MIKKI, LIVER #### [facility] [address] [place] [address] Dr. Agueda Wiley LIVER PROFILEon 08-04-2022 Albumin [Mass/Vol] 3.0 g/dL Critically low 3.4-5.0 Th [facility] Comment on above: Performed By: #### C MIKKI, LIVER #### [facility] [address] [place] [address] Dr. Agueda Wiley Albumin/Globulin [Mass ratio] 0.7 {ratio} Normal [facility] Comment on above: Performed By: #### C MIKKI, LIVER #### [facility] [address] [place] [address] Dr. Agueda Wiley ALP [Catalytic activity/Vol] 94 U/L Normal 46-116 [facility] Comment on above: Performed By: #### C MIKKI, LIVER #### [facility] [address] [place] [address] Dr. Agueda Wiley ALT [Catalytic activity/Vol] 20 U/L Normal 14-59 [facility] Comment on above: Performed By: #### C MIKKI, LIVER #### [facility] [address] [place] [address] Dr. Agueda Wiley AST [Catalytic activity/Vol] 15 U/L Normal 15-37 [facility] Comment on above: Performed By: #### C MIKKI, LIVER #### [facility] [address] [place] [address] Dr. Agueda Wiley BILI, CONJUGATED 0.1 mg/dL Normal 0.0-0.2 [facility] Comment on above: Performed By: #### C MIKKI, LIVER #### [facility] [address] [place] [address] Dr. Agueda Wiley Bilirubin [Mass/Vol] 0.4 mg/dL Normal 0.2-1.0 [facility] Comment on above: Performed By: #### C MIKKI, LIVER #### [facility] [address] [place] [address] Dr. Agueda Wiley Globulin (S) [Mass/Vol] 4.3 g/dL Normal [facility] Comment on above: Performed By: #### C MIKKI, LIVER #### [facility] [address] [place] [address] Dr. Agueda Wiley Protein [Mass/Vol] 7.3 g/dL Normal 6.4-8.2 [facility] Comment on above: Performed By: #### C MIKKI, LIVER #### [facility] [address] [place] [address] Dr. Agueda Wiley [facility] 105 mm/hr Critically high <=30 [facility] Comment on above: Performed By: #### R NPAB #### [facility] [address] [place] [address] Dr. Agueda Wiley CBC AUTO DIFFon 06-09-2022 BASO # 0.1 103/ul Normal 0.0-0.1 [facility] Comment on above: Performed By: #### A NAIFA #### [facility] [address] [place] [address] Dr. Agueda Wiley Basophils/100 WBC (Bld) 0.7 % Normal 0.2-2.0 [facility] Comment on above: Performed By: #### A NAIFA #### [facility] [address] [place] [address] Dr. Agueda Wiley EO # 0.4 103/ul Normal 0.0-0.7 [facility] Comment on above: Performed By: #### A NAIFA #### [facility] [address] [place] [address] Dr. Agueda Wiley Eosinophils/100 WBC (Bld) 3.6 % Normal 0.9-7.0 [facility] Comment on above: Performed By: #### A NAIFA #### [facility] [address] [place] [address] Dr. Agueda Wiley Erythrocyte distribution width (RBC) [Ratio] 13.6 % Normal 11.0-15.0 [facility] Comment on above: Performed By: #### A NAIFA #### [facility] [address] [place] [address] Dr. Agueda Wiley Hematocrit (Bld) [Volume fraction] 38.5 % Normal 36.0-48.0 [facility] Comment on above: Performed By: #### A NAIFA #### [facility] [address] [place] [address] Dr. Agueda Wiley Hemoglobin (Bld) [Mass/Vol] 12.4 g/dL Normal 12.0-16.0 [facility] Comment on above: Performed By: #### A NAIFA #### [facility] [address] [place] [address] Dr. Agueda Wiley IG # 0.07 10e3/ul Critically high 0.00-0.03 [facility] Comment on above: Performed By: #### A NAIFA #### [facility] [address] [place] [address] Dr. Agueda Wiley IG % 0.6 % Critically high 0.0-0.5 [facility] Comment on above: Performed By: #### A NAIFA #### [facility] [address] [place] [address] Dr. Agueda Wiley LYMPH # 2.1 103/ul Normal 1.2-3.8 [facility] Comment on above: Performed By: #### A NAIFA #### [facility] [address] [place] [address] Dr. Agueda Wiley Lymphocytes/100 WBC (Bld) 17.7 % Critically low 20.5-60.0 [facility] Comment on above: Performed By: #### A NAIFA #### [facility] [address] [place] [address] Dr. Agueda Wiley MANUAL DIFF REQ NO Normal [facility] Comment on above: Performed By: #### A NAIFA #### [facility] [address] [place] [address] Dr. Agueda Wiley MCH (RBC) [Entitic mass] 29.4 pg Normal 26.7-34.0 [facility] Comment on above: Performed By: #### A NAIFA #### [facility] [address] [place] [address] Dr. Agueda Wiley MCHC (RBC) [Mass/Vol] 32.2 g/dL Normal 29.9-35.2 [facility] Comment on above: Performed By: #### A NAIFA #### [facility] [address] [place] [address] Dr. Agueda Wiley MCV (RBC) [Entitic vol] 91.2 fL Normal 81.0-99.0 [facility] Comment on above: Performed By: #### A NAIFA #### [facility] [address] [place] [address] Dr. Agueda Wiley MONO # 1.1 103/ul Critically high 0.3-0.8 [facility] Comment on above: Performed By: #### A NAIFA #### [facility] [address] [place] [address] Dr. Agueda Wiley Monocytes/100 WBC (Bld) 9.4 % Normal 1.7-12.0 [facility] Comment on above: Performed By: #### A NAIFA #### [facility] [address] [place] [address] Dr. Agueda Wiley NEUT # 8.0 103/ul Critically high 1.4-6.5 [facility] Comment on above: Performed By: #### A NAIFA #### [facility] [address] [place] [address] Dr. Agueda Wiley Neutrophils/100 WBC (Bld) 68.0 % Normal 43.0-75.0 [facility] Comment on above: Performed By: #### A NAIFA #### [facility] [address] [place] [address] Dr. Agueda Wiley Platelet mean volume (Bld) [Entitic vol] 10.7 fL Normal 9.5-13.5 [facility] Comment on above: Performed By: #### A NAIFA #### [facility] [address] [address] [address] Agueda Wiley PLT 417 103/ul Normal 150-450 [facility] Comment on above: Performed By: #### A NAIFA #### [facility] [address] [address] [address] Agueda Wiley RBC 4.22 106/ul Normal 4.20-5.40 [facility] Comment on above: Performed By: #### A NAIFA #### [facility] [address] [address] [address] Agueda Wiley WBC 11.8 103/ul Critically high 4.0-11.0 [facility] Comment on above: Performed By: #### A NAIFA #### [facility] [address] [place] [address] Dr. Agueda Wiley PROF CHEM 8 (BAS METB)on Anion gap [Moles/Vol] 15.3 mmol/L Normal [facility] Comment on above: Performed By: #### C MIKKI, LIVER #### [facility] [address] [address] [address] Agueda Wiley Calcium [Mass/Vol] 8.8 mg/dL Normal 8.5-10.1 [facility] Comment on above: Performed By: #### C MIKKI, LIVER #### [facility] [address] [address] [address] Agueda Wiley Chloride [Moles/Vol] 106 mmol/L Normal 98-107 [facility] Comment on above: Performed By: #### C MIKKI, LIVER #### [facility] [address] [address] [address] Agueda Wiley CO2 [Moles/Vol] 23.7 mmol/L Normal 21.0-32.0 [facility] Comment on above: Performed By: #### C MIKKI, LIVER #### [facility] [address] [place] [address] Dr. Agueda Wiley Creatinine [Mass/Vol] 1.10 mg/dL Critically high 0.55-1.02 [facility] Comment on above: Performed By: #### C MIKKI, LIVER #### [facility] [address] [address] [address] Agueda Wiley EGFR-AF PALAUAN 60 mL/min/1.73m2 Normal >=60 Th [facility] Comment on above: Performed By: #### C MIKKI, LIVER #### [facility] [address] [place] [address] Dr. Agueda Wiley EGFR-NON AF PALAUAN 50 mL/min/1.73m2 Critically low >=60 [facility] Comment on above: Performed By: #### C MIKKI, LIVER #### [facility] [address] [place] [address] Dr. Agueda Wiley Glucose [Mass/Vol] 126 mg/dL Critically high 74-106 [facility] Comment on above: Performed By: #### C MIKKI, LIVER #### [facility] [address] [place] [address] Dr. Agueda Wiley Potassium [Moles/Vol] 4.0 mmol/L Normal 3.5-5.1 [facility] Comment on above: Performed By: #### C MIKKI, LIVER #### [facility] [address] [place] [address] Dr. Agueda Wiley Sodium [Moles/Vol] 141 mmol/L Normal 136-145 [facility] Comment on above: Performed By: #### C MIKKI, LIVER #### [facility] [address] [place] [address] Dr. Agueda Wiley Urea nitrogen [Mass/Vol] 14.0 mg/dL Normal 7.0-18.0 [facility] Comment on above: Performed By: #### C MIKKI, LIVER #### [facility] [address] [place] [address] Dr. Agueda Wiley Urea nitrogen/Creatinine [Mass ratio] 12.7 mg/mg Normal [facility] Comment on above: Performed By: #### C MIKKI, LIVER #### [facility] [address] [place] [address] Dr. Agueda Wiley XR femur LT 2V*on 05-28-2022 XR femur LT 2V* [facility] [employer] Other XR femur LT 2V* [facility] [place] [facility] [employer] Other XR femur LT 2V* [address] [facility] No [facility] [employer] Other XR femur LT 2V* [place] [address] [address] [facility] [employer] Other XR femur LT 2V* XRay Report [facility] [employer] Other XR femur LT 2V* Signed [facility] [employer] Other XR femur LT 2V* Patient: Reba Gregory MR#: [id number] [facility] [employer] Other XR femur LT 2V* : 1955 Acct:[id number] [employer] Other XR femur LT 2V* Age/Sex: 66 / F ADM Date: 05/28/22 [employer] Other XR femur LT 2V* [facility]: [facility] [place]: Type : [facility] [employer] Other XR femur LT 2V* Attending Dr: Nabor Nelson II, MD [employer] Other XR femur LT 2V* Copies to: Nabor Nelson MD [employer] Other XR femur LT 2V* Ordering Provider: Ragini Nelson MD [employer] Other XR femur LT 2V* Date of Service: 05/28/22 [employer] Other XR femur LT 2V* XR/XR femur LT 2V*: Aftercare following joint replacement surgery [employer] Other XR femur LT 2V* ([id number]) XR/XR tibia fibula LT 2V*: Aftercare following joint replacement surgery [employer] Other XR femur LT 2V* ([id number]) XR/XR knee LT 2V: Aftercare following joint replacement surgery [employer] Other XR femur LT 2V* XR tibia fibula LT 2 V*, XR knee LT 2V, XR femur LT 2V* 05/28/2022 8:18 AM [employer] Other XR femur LT 2V* SIGNS AND SYMPTOMS: Aftercare following joint replacement surgery [employer] Other XR femur LT 2V* PROTOCOL: Frontal radiographs of the left femur, left knee, and left tibia and fibula [employer] Other XR femur LT 2V* COMPARISON: 04/16/2022 [employer] Other XR femur LT 2V* FINDINGS: [facility] [employer] Other XR femur LT 2V* The bones are in val tomic alignment. There is total left knee arthroplasty hardware without [employer] Other XR femur LT 2V* hardware complicatio n or malalignment. No fracture or dislocation. The visualized bony ring of the [employer] Other XR femur LT 2V* pelvis is grossly intact. [employer] Other XR femur LT 2V* X R/XR tibia fibula LT 2V* [employer] Other XR femur LT 2V* IMPRESSION: [email or web address] Other XR femur LT 2V* Status post total le ft knee arthroplasty hardware placement without hardware complication or [employer] Other XR femur LT 2V* malalignment. [employer] Other XR femur LT 2V* Impression dictated by: Michael Benítez M.D.05/28/2022 11:51 AM [employer] Other XR femur LT 2V* Dictation Location: [place] [id number] [employer] Other XR femur LT 2V* Transcribed By: PWS 05/28/22 1151 [employer] Other XR femur LT 2V* Dictated By: Michael Benítez II, MD 05/28/22 1149 [employer] Other XR femur LT 2V* Signed By: [facility] [employer] Other XR femur LT 2V* 05/28/22 1151 [employer] Other CBC W MANUAL DIFFon 05-20-20 22 ATYPICAL LYMPH # Normal [facility] Comment on above: Performed By: #### A NAIFA #### [facility] [address] [place] [address] Dr. Agueda Wiley ATYPICAL LYMPH % Normal [facility] Comment on above: Performed By: #### A NAIFA #### [facility] [address] [place] [address] Dr. Agueda COOK # Normal 0.0-0.3 [facility] Comment on above: Performed By: #### A NAIFA #### [facility] [address] [place] [address] Dr. Agueda COOK % Normal 0-5 [facility] Comment on above: Performed By: #### A NAIFA #### [facility] [address] [place] [address] Dr. Agueda Wiley BASOM # 0.15 103/ul Critically high 0.00-0.10 [facility] Comment on above: Performed By: #### A NAIFA #### [facility] [address] [place] [address] Dr. Agueda ALEJANDRA % 1.0 % Normal 0.2-2.0 [facility] Comment on above: Performed By: #### A NAIFA #### [facility] [address] [place] [address] Dr. Agueda Wiley BLAST # Normal [facility] Comment on above: Performed By: #### A NAIFA #### [facility] [address] [place] [address] Dr. Agueda Wiley BLAST % Normal [facility] Comment on above: Performed By: #### A NAIFA #### [facility] [address] [place] [address] Dr. Agueda Wiley CORRECTED WBC Normal 4.0-11.0 [facility] Comment on above: Performed By: #### A NAIFA #### [facility] [address] [place] [address] Dr. Agueda Wiley EOS # 0.00 103/ul Normal 0.00-0.70 [facility] Comment on above: Performed By: #### A NAIFA #### [facility] [address] [place] [address] Dr. Agueda Wiley EOS% 0.0 % Critically low 0.9-7.0 [facility] Comment on above: Performed By: #### A NAIFA #### [facility] [address] [place] [address] Dr. Agueda Wiley HCT 34.4 % Critically low 36.0-48.0 [facility] Comment on above: Performed By: #### A NAIFA #### [facility] [address] [place] [address] Dr. Agueda Wiley HGB 11.1 g/dl Critically low 12.0-16.0 [facility] Comment on above: Performed By: #### A NAIFA #### [facility] [address] [place] [address] Dr. Agueda Wiley LYMPHM # 2.31 103/ul Normal 1.20-3.80 [facility] Comment on above: Performed By: #### A NAIFA #### [facility] [address] [place] [address] Dr. Agueda Wiley LYMPHM% 15.0 % Critically low 20.5-60.0 [facility] Comment on above: Performed By: #### A NAIFA #### [facility] [address] [place] [address] Dr. Agueda Wiley MCH 29.1 pg Normal 26.7-34.0 [facility] Comment on above: Performed By: #### A NAIFA #### [facility] [address] [place] [address] Dr. Agueda Wiley MCHC 32.3 g/dl Normal 29.9-35.2 [facility] Comment on above: Performed By: #### A NAIFA #### [facility] [address] [place] [address] Dr. Agueda Wiley MCV 90.3 fL Normal 81.0-99.0 [facility] Comment on above: Performed By: #### A NAIFA #### [facility] [address] [place] [address] Dr. Agueda Wiley METAMYELOCYTE # Normal [facility] Comment on above: Performed By: #### A NAIFA #### [facility] [address] [place] [address] Dr. Agueda Wiley METAMYELOCYTE % Normal [facility] Comment on above: Performed By: #### A NAIFA #### [facility] [address] [place] [address] Dr. Agueda Wiley MONOM# 1.39 103/ul Critically high 0.30-0.80 [facility] Comment on above: Performed By: #### A NAIFA #### [facility] [address] [place] [address] Dr. Agueda Wiley MONOM% 9.0 % Normal 1.7-12.0 [facility] Comment on above: Performed By: #### A NAIFA #### [facility] [address] [place] [address] Dr. Agueda Wiley MPV 11.0 fL Normal 9.5-13.5 [facility] Comment on above: Performed By: #### A NAIFA #### [facility] [address] [place] [address] Dr. Agueda Wiley MYELOCYTE # Normal [facility] Comment on above: Performed By: #### A NAIFA #### [facility] [address] [place] [address] Dr. Agueda Wiley MYELOCYTE % Normal [facility] Comment on above: Performed By: #### A NAIFA #### [facility] [address] [address] [address] Agueda Wiley NRBC Normal [facility] Comment on above: Performed By: #### A NAIFA #### [facility] [address] [address] [address] Agueda Wiley PLT 333 103/ul Normal 150-450 [facility] Comment on above: Performed By: #### A NAIFA #### [facility] [address] [address] [address] Agueda Wiley RBC 3.81 106/ul Critically low 4.20-5.40 [facility] Comment on above: Performed By: #### A NAIFA #### [facility] [address] [place] [address] Dr. Agueda Wiley RDW 12.8 % Normal 11.0-15.0 [facility] Comment on above: Performed By: #### A NAIFA #### [facility] [address] [address] [address] Agueda Wiley SEG # 11.55 103/ul Critically high 1.40-6.50 [facility] Comment on above: Performed By: #### A NAIFA #### [facility] [address] [place], [place] [id number] Dr. Agueda Wiley SEG % 75.0 % Normal 43.0-75.0 [facility] Comment on above: Performed By: #### A NAIFA #### [facility] [address] [place] [address] Dr. Agueda Wiley WBC 15.4 103/ul Critically high 4.0-11.0 [facility] Comment on above: Performed By: #### A NAIFA #### [facility] [address] [place] [address] Dr. Agueda Wiley PROF 14(COMP METB)on 022 Albumin [Mass/Vol] 1.9 g/dL Critically low 3.4-5.0 [facility] Comment on above: Performed By: #### R NPAB #### [facility] [address] [address] [address] Agueda Wiley Albumin/Globulin [Mass ratio] 0.7 {ratio} Normal [facility] Comment on above: Performed By: #### R NPAB #### [facility] [address] [address] [address] Agueda Wiley ALP [Catalytic activity/Vol] 75 U/L Normal 46-116 [facility] Comment on above: Performed By: #### R NPAB #### [facility] [address] [address] [address] Agueda Wiley ALT [Catalytic activity/Vol] 18 U/L Normal 14-59 [facility] Comment on above: Performed By: #### R NPAB #### [facility] [address] [place] [address] Dr. Agueda Wiley Anion gap [Moles/Vol] 12.4 mmol/L Normal [facility] Comment on above: Performed By: #### R NPAB #### [facility] [address] [place] [address] Dr. Agueda Wiley AST [Catalytic activity/Vol] 20 U/L Normal 15-37 [facility] Comment on above: Performed By: #### R NPAB #### [facility] [address] [place] [address] Dr. Agueda Wiley Bilirubin [Mass/Vol] 0.2 mg/dL Normal 0.2-1.0 [facility] Comment on above: Performed By: #### R NPAB #### [facility] [address] [place] [address] Dr. Agueda Wiley Calcium [Mass/Vol] 7.7 mg/dL Critically low 8.5-10.1 [facility] Comment on above: Performed By: #### R NPAB #### [facility] [address] [place] [address] Dr. Agueda Wiley Chloride [Moles/Vol] 108 mmol/L Critically high 98-107 [facility] Comment on above: Performed By: #### R NPAB #### [facility] [address] [address] [address] Agueda Wiley CO2 [Moles/Vol] 21.9 mmol/L Normal 21.0-32.0 [facility] Comment on above: Performed By: #### R NPAB #### [facility] [address] [address] [address] Agueda Wiley Creatinine [Mass/Vol] 0.81 mg/dL Normal 0.55-1.02 [facility] Comment on above: Performed By: #### R NPAB #### [facility] [address] [address] [address] Agueda Wiley EGFR-AF PALAUAN >60 Normal >=60 [facility] Comment on above: Performed By: #### R NPAB #### [facility] [address] [place] [address] Dr. Agueda Wiley EGFR-NON AF PALAUAN >60 Normal >=60 [facility] Comment on above: Performed By: #### R NPAB #### [facility] [address] [address] [address] Agueda Wiley Globulin (S) [Mass/Vol] 2.6 g/dL Normal [facility] Comment on above: Performed By: #### R NPAB #### [facility] [address] [place] [address] Dr. Agueda Wiley Glucose [Mass/Vol] 102 mg/dL Normal 74-106 [facility] Comment on above: Performed By: #### R NPAB #### [facility] [address] [address] [address] Agueda Wiley Potassium [Moles/Vol] 3.3 mmol/L Critically low 3.5-5.1 [facility] Comment on above: Performed By: #### R NPAB #### [facility] [address] [address] [address] Agueda Wiley Protein [Mass/Vol] 4.5 g/dL Critically low 6.4-8.2 [facility] Comment on above: Performed By: #### R NPAB #### [facility] [address] [address] [address] Agueda Wiley Sodium [Moles/Vol] 139 mmol/L Normal 136-145 [facility] Comment on above: Performed By: #### R NPAB #### [facility] [address] [address] [address] Agueda Wiley Urea nitrogen [Mass/Vol] 7.0 mg/dL Normal 7.0-18.0 [facility] Comment on above: Performed By: #### R NPAB #### [facility] [address] [place] [address] Dr. Agueda Wiley Urea nitrogen/Creatinine [Mass ratio] 8.6 mg/mg Normal [facility] Comment on above: Performed By: #### R NPAB #### [facility] [address] [place] [address] Dr. Agueda Wiley CBC AUTO DIFFon 05-19-2022 BASO # 0.1 103/ul Normal 0.0-0.1 [facility] Comment on above: Performed By: #### C MIKKI, LIVER #### [facility] [address] [place] [address] Dr. Agueda Wiley Basophils/100 WBC (Bld) 0.4 % Normal 0.2-2.0 [facility] Comment on above: Performed By: #### C MIKKI, LIVER #### [facility] [address] [place] [address] Dr. Agueda Wiley EO # 0.3 103/ul Normal 0.0-0.7 [facility] Comment on above: Performed By: #### C MIKKI, LIVER #### [facility] [address] [place] [address] Dr. Agueda Wiley Eosinophils/100 WBC (Bld) 1.5 % Normal 0.9-7.0 [facility] Comment on above: Performed By: #### C MIKKI, LIVER #### [facility] [address] [place] [address] Dr. Agueda Wiley Erythrocyte distribution width (RBC) [Ratio] 12.5 % Normal 11.0-15.0 [facility] Comment on above: Performed By: #### C MIKKI, LIVER #### [facility] [address] [address] [address] Agueda Wiley Hematocrit (Bld) [Volume fraction] 37.3 % Normal 36.0-48.0 [facility] Comment on above: Performed By: #### C MIKKI, LIVER #### [facility] [address] [place] [address] Dr. Agueda Wiley Hemoglobin (Bld) [Mass/Vol] 12.0 g/dL Normal 12.0-16.0 [facility] Comment on above: Performed By: #### C MIKKI, LIVER #### [facility] [address] [place] [address] Dr. Agueda Wiley IG # 0.59 10e3/ul Critically high 0.00-0.03 [facility] Comment on above: Performed By: #### C MIKKI, LIVER #### [facility] [address] [place] [address] Dr. Agueda Wiley IG % 3.1 % Critically high 0.0-0.5 [facility] Comment on above: Performed By: #### C MIKKI, LIVER #### [facility] [address] [place] [address] Dr. Agueda Wiley LYMPH # 1.7 103/ul Normal 1.2-3.8 [facility] Comment on above: Performed By: #### C MIKKI, LIVER #### [facility] [address] [place] [address] Dr. Agueda Wiley Lymphocytes/100 WBC (Bld) 8.7 % Critically low 20.5-60.0 [facility] Comment on above: Performed By: #### C MIKKI, LIVER #### [facility] [address] [place] [address] Dr. Agueda Wiley MANUAL DIFF REQ NO Normal [facility] Comment on above: Performed By: #### C MIKKI, LIVER #### [facility] [address] [place] [address] Dr. Agueda Wiley MCH (RBC) [Entitic mass] 28.9 pg Normal 26.7-34.0 [facility] Comment on above: Performed By: #### C MIKIK, LIVER #### [facility] [address] [place] [address] Dr. Agueda Wiley MCHC (RBC) [Mass/Vol] 32.2 g/dL Normal 29.9-35.2 [facility] Comment on above: Performed By: #### C MIKKI, LIVER #### [facility] [address] [place] [address] Dr. Agueda Wiley MCV (RBC) [Entitic vol] 89.9 fL Normal 81.0-99.0 [facility] Comment on above: Performed By: #### C MIKKI, LIVER #### [facility] [address] [place] [address] Dr. Agueda Wiley MONO # 1.3 103/ul Critically high 0.3-0.8 [facility] Comment on above: Performed By: #### C MIKKI, LIVER #### [facility] [address] [place] [address] Dr. Agueda Wiley Monocytes/100 WBC (Bld) 6.8 % Normal 1.7-12.0 [facility] Comment on above: Performed By: #### C MIKKI, LIVER #### [facility] [address] [place] [address] Dr. Agueda Wiley NEUT # 15.2 103/ul Critically high 1.4-6.5 [facility] Comment on above: Performed By: #### C MIKKI, LIVER #### [facility] [address] [place] [address] Dr. Agueda Wiley Neutrophils/100 WBC (Bld) 79.5 % Critically high 43.0-75.0 [facility] Comment on above: Performed By: #### C MIKKI, LIVER #### [facility] [address] [place] [address] Dr. Agueda Wiley Platelet mean volume (Bld) [Entitic vol] 10.3 fL Normal 9.5-13.5 [facility] Comment on above: Performed By: #### C MIKKI, LIVER #### [facility] [address] [place] [address] Dr. Agueda Wiley PLT 328 103/ul Normal 150-450 [facility] Comment on above: Performed By: #### C MIKKI, LIVER #### [facility] [address] [place] [address] Dr. Agueda Wiley RBC 4.15 106/ul Critically low 4.20-5.40 [facility] Comment on above: Performed By: #### C MIKKI, LIVER #### [facility] [address] [place] [address] Dr. Agueda Wiley WBC 19.1 103/ul Critically high 4.0-11.0 [facility] Comment on above: Performed By: #### C MIKKI LIVER #### [facility] [address] [place] [address] Dr. Agueda Wiley PROF 14(COMP METB)on 022 Albumin [Mass/Vol] 2.0 g/dL Critically low 3.4-5.0 [facility] Comment on above: Performed By: #### R NPAB #### [facility] [address] [place] [address] Dr. Agueda Wiley Albumin/Globulin [Mass ratio] 0.7 {ratio} Normal [facility] Comment on above: Performed By: #### R NPAB #### [facility] [address] [place] [address] Dr. Agueda Wiley ALP [Catalytic activity/Vol] 94 U/L Normal 46-116 [facility] Comment on above: Performed By: #### R NPAB #### [facility] [address] [place] [address] Dr. Agueda Wiley ALT [Catalytic activity/Vol] 16 U/L Normal 14-59 [facility] Comment on above: Performed By: #### R NPAB #### [facility] [address] [place] [address] Dr. Agueda Wiley Anion gap [Moles/Vol] 13.3 mmol/L Normal [facility] Comment on above: Performed By: #### R NPAB #### [facility] [address] [place] [address] Dr. Agueda Wiley AST [Catalytic activity/Vol] 11 U/L Critically low 15-37 [facility] Comment on above: Performed By: #### R NPAB #### [facility] [address] [place] [address] Dr. Agueda Wiley Bilirubin [Mass/Vol] 0.3 mg/dL Normal 0.2-1.0 [facility] Comment on above: Performed By: #### R NPAB #### [facility] [address] [address] [address] Agueda Wiley Calcium [Mass/Vol] 7.8 mg/dL Critically low 8.5-10.1 [facility] Comment on above: Performed By: #### R NPAB #### [facility] [address] [place] [address] Dr. Agueda Wiley Chloride [Moles/Vol] 107 mmol/L Normal 98-107 [facility] Comment on above: Performed By: #### R NPAB #### [facility] [address] [place] [address] Dr. Agueda Wiley CO2 [Moles/Vol] 20.0 mmol/L Critically low 21.0-32.0 [facility] Comment on above: Performed By: #### R NPAB #### [facility] [address] [place] [address] Dr. Agueda Wiley Creatinine [Mass/Vol] 0.81 mg/dL Normal 0.55-1.02 [facility] Comment on above: Performed By: #### R NPAB #### [facility] [address] [place] [address] Dr. Agueda Wiley EGFR-AF PALAUAN >60 Normal >=60 [facility] Comment on above: Performed By: #### R NPAB #### [facility] [address] [place] [address] Dr. Agueda Wiley EGFR-NON AF PALAUAN >60 Normal >=60 [facility] Comment on above: Performed By: #### R NPAB #### [facility] [address] [place] [address] Dr. Agueda Wiley Globulin (S) [Mass/Vol] 3.0 g/dL Normal [facility] Comment on above: Performed By: #### R NPAB #### [facility] [address] [address] [address] Agueda Wiley Glucose [Mass/Vol] 113 mg/dL Critically high 74-106 [facility] Comment on above: Performed By: #### R NPAB #### [facility] [address] [address] [address] Agueda Wiley Potassium [Moles/Vol] 3.3 mmol/L Critically low 3.5-5.1 [facility] Comment on above: Performed By: #### R NPAB #### [facility] [address] [address] [address] Agueda Wiley Protein [Mass/Vol] 5.0 g/dL Critically low 6.4-8.2 [facility] Comment on above: Performed By: #### R NPAB #### [facility] [address] [address] [address] Agueda Wiley Sodium [Moles/Vol] 137 mmol/L Normal 136-145 [facility] Comment on above: Performed By: #### R NPAB #### [facility] [address] [address] [address] Agueda Wiley Urea nitrogen [Mass/Vol] 11.0 mg/dL Normal 7.0-18.0 [facility] Comment on above: Performed By: #### R NPAB #### [facility] [address] [address] [address] Agueda Wiley Urea nitrogen/Creatinine [Mass ratio] 13.6 mg/mg Normal [facility] Comment on above: Performed By: #### R NPAB #### [facility] [address] [address] [address] Agueda Wiley CBC W MANUAL DIFFon 05-18-20 22 ATYPICAL LYMPH # 0.23 103/ul Normal [facility] Comment on above: Performed By: #### C MIKKI, LIVER #### [facility] [address] [address] [address] Agueda Wiley ATYPICAL LYMPH % 1 % Normal [facility] Comment on above: Performed By: #### C MIKKI, LIVER #### [facility] [address] [place] [address] Dr. Agueda Wiley BAND # 0.0 103/ul Normal 0.0-0.3 [facility] Comment on above: Performed By: #### C MIKKI, LIVER #### [facility] [address] [place] [address] Dr. Ageuda Wiley BAND % 0 % Normal 0-5 [facility] Comment on above: Performed By: #### C MIKKI, LIVER #### [facility] [address] [place] [address] Dr. Agudea Wiley BASOM # 0.00 103/ul Normal 0.00-0.10 [facility] Comment on above: Performed By: #### C MIKKI, LIVER #### [facility] [address] [place] [address] Dr. Agueda Wiley BASOM % 0.0 % Critically low 0.2-2.0 [facility] Comment on above: Performed By: #### C MIKKI, LIVER #### [facility] [address] [place] [address] Dr. Agueda Wiley BLAST # Normal [facility] Comment on above: Performed By: #### C MIKKI, LIVER #### [facility] [address] [place] [address] Dr. Agueda Wiley BLAST % Normal [facility] Comment on above: Performed By: #### C MIKKI, LIVER #### [facility] [address] [place] [address] Dr. Agueda Wiley CORRECTED WBC Normal 4.0-11.0 [facility] Comment on above: Performed By: #### C MIKKI, LIVER #### [facility] [address] [place] [address] Dr. Agueda Wiley EOS # 0.23 103/ul Normal 0.00-0.70 [facility] Comment on above: Performed By: #### C MIKKI, LIVER #### [facility] [address] [place] [address] Dr. Agueda Wiley EOS% 1.0 % Normal 0.9-7.0 [facility] Comment on above: Performed By: #### C MIKKI, LIVER #### [facility] [address] [place] [address] Dr. Agueda Wiley HCT 35.7 % Critically low 36.0-48.0 [facility] Comment on above: Performed By: #### C MIKKI, LIVER #### [facility] [address] [place] [address] Dr. Agueda Wiley HGB 11.6 g/dl Critically low 12.0-16.0 [facility] Comment on above: Performed By: #### C MIKKI, LIVER #### [facility] [address] [place] [address] Dr. Agueda Wiley LYMPHM # 1.41 103/ul Normal 1.20-3.80 [facility] Comment on above: Performed By: #### C MIKKI, LIVER #### [facility] [address] [place] [address] Dr. Agueda Wiley LYMPHM% 6.0 % Critically low 20.5-60.0 [facility] Comment on above: Performed By: #### C MIKKI, LIVER #### [facility] [address] [place] [address] Dr. Agueda Wiley MCH 29.4 pg Normal 26.7-34.0 [facility] Comment on above: Performed By: #### C MIKKI, LIVER #### [facility] [address] [place] [address] Dr. Agueda Wiley MCHC 32.5 g/dl Normal 29.9-35.2 [facility] Comment on above: Performed By: #### C MIKKI, LIVER #### [facility] [address] [place] [address] Dr. Agueda Wiley MCV 90.4 fL Normal 81.0-99.0 [facility] Comment on above: Performed By: #### C MIKKI, LIVER #### [facility] [address] [place] [address] Dr. Agueda Wiley METAMYELOCYTE # Normal [facility] Comment on above: Performed By: #### C MIKKI, LIVER #### [facility] [address] [address] [address] Agueda Wiley METAMYELOCYTE % Normal [facility] Comment on above: Performed By: #### C MIKKI, LIVER #### [facility] [address] [address] [address] Agueda Wiley MONOM# 0.94 103/ul Critically high 0.30-0.80 [facility] Comment on above: Performed By: #### C MIKKI, LIVER #### [facility] [address] [address] [address] Agueda Wiley MONOM% 4.0 % Normal 1.7-12.0 [facility] Comment on above: Performed By: #### C MIKKI, LIVER #### [facility] [address] [place] [address] Dr. Agueda Wiley MPV 10.5 fL Normal 9.5-13.5 [facility] Comment on above: Performed By: #### C MIKKI, LIVER #### [facility] [address] [place] [address] Dr. Agueda Wiley MYELOCYTE # Normal [facility] Comment on above: Performed By: #### C MIKKI, LIVER #### [facility] [address] [place] [address] Dr. Agueda Wiley MYELOCYTE % Normal [facility] Comment on above: Performed By: #### C MIKKI, LIVER #### [facility] [address] [place] [address] Dr. Agueda Wiley NRBC Normal [facility] Comment on above: Performed By: #### C MIKKI, LIVER #### [facility] [address] [place] [address] Dr. Agueda Wiley PLT 306 103/ul Normal 150-450 [facility] Comment on above: Performed By: #### C MIKKI, LIVER #### [facility] [address] [address] [address] Agueda Wiley RBC 3.95 106/ul Critically low 4.20-5.40 [facility] Comment on above: Performed By: #### C MIKKI, LIVER #### [facility] [address] [place] [address] Dr. Agueda Wiley RDW 12.6 % Normal 11.0-15.0 [facility] Comment on above: Performed By: #### C MIKKI, LIVER #### [facility] [address] [place], [place] [id number] Dr. Agueda Wiley SEG # 20.68 103/ul Critically high 1.40-6.50 [facility] Comment on above: Performed By: #### C MIKKI, LIVER #### [facility] [address] [place] [address] Dr. Agueda Wiley SEG % 88.0 % Critically high 43.0-75.0 [facility] Comment on above: Performed By: #### C MIKKI, LIVER #### [facility] [address] [place] [address] Dr. Agueda Wiley WBC 23.5 103/ul Critically high 4.0-11.0 [facility] Comment on above: Performed By: #### C MIKKI, LIVER #### [facility] [address] [place] [address] Dr. Agueda Wiley PROF 14(COMP METB)on 022 Albumin [Mass/Vol] 1.8 g/dL Critically low 3.4-5.0 [facility] Comment on above: Performed By: #### C MIKKI, LIVER #### [facility] [address] [place] [address] Dr. Agueda Wiley Albumin/Globulin [Mass ratio] 0.6 {ratio} Normal [facility] Comment on above: Performed By: #### C MIKKI, LIVER #### [facility] [address] [place] [address] Dr. Agueda Wiley ALP [Catalytic activity/Vol] 107 U/L Normal 46-116 [facility] Comment on above: Performed By: #### C MIKKI, LIVER #### [facility] [address] [place] [address] Dr. Agueda Wiley ALT [Catalytic activity/Vol] 20 U/L Normal 14-59 [facility] Comment on above: Performed By: #### C MIKKI, LIVER #### [facility] [address] [place] [address] Dr. Agueda Wiley Anion gap [Moles/Vol] 14.6 mmol/L Normal [facility] Comment on above: Performed By: #### C MIKKI, LIVER #### [facility] [address] [place] [address] Dr. Agueda Wiley AST [Catalytic activity/Vol] 12 U/L Critically low 15-37 [facility] Comment on above: Performed By: #### C MIKKI, LIVER #### [facility] [address] [place] [address] Dr. Agueda Wiley Bilirubin [Mass/Vol] 0.3 mg/dL Normal 0.2-1.0 [facility] Comment on above: Performed By: #### C MIKKI, LIVER #### [facility] [address] [place] [address] Dr. Agueda Wiley Calcium [Mass/Vol] 7.5 mg/dL Critically low 8.5-10.1 [facility] Comment on above: Performed By: #### C MIKKI, LIVER #### [facility] [address] [place] [address] Dr. Agueda Wiley Chloride [Moles/Vol] 107 mmol/L Normal 98-107 [facility] Comment on above: Performed By: #### C MIKKI, LIVER #### [facility] [address] [place] [address] Dr. Agueda Wiley CO2 [Moles/Vol] 20.4 mmol/L Critically low 21.0-32.0 [facility] Comment on above: Performed By: #### C MIKKI, LIVER #### [facility] [address] [place] [address] Dr. Agueda Wiley Creatinine [Mass/Vol] 0.96 mg/dL Normal 0.55-1.02 [facility] Comment on above: Performed By: #### C MIKKI, LIVER #### [facility] [address] [address] [address] Agueda Wiley EGFR-AF PALAUAN >60 Normal >=60 [facility] Comment on above: Performed By: #### C MIKKI, LIVER #### [facility] [address] [address] [address] Agueda Wiley EGFR-NON AF PALAUAN 58 mL/min/1.73m2 Critically low >=60 [facility] Comment on above: Performed By: #### C MIKKI, LIVER #### [facility] [address] [address] [address] Agueda Wiley Globulin (S) [Mass/Vol] 2.9 g/dL Normal [facility] Comment on above: Performed By: #### C MIKKI, LIVER #### [facility] [address] [place] [address] Dr. Agueda Wiley Glucose [Mass/Vol] 93 mg/dL Normal 74-106 [facility] Comment on above: Performed By: #### C MIKKI, LIVER #### [facility] [address] [place] [address] Dr. Agueda Wiley Potassium [Moles/Vol] 3.0 mmol/L Critically low 3.5-5.1 [facility] Comment on above: Performed By: #### C MIKKI, LIVER #### [facility] [address] [place] [address] Dr. Agueda Wiley Protein [Mass/Vol] 4.7 g/dL Critically low 6.4-8.2 [facility] Comment on above: Performed By: #### C MIKKI, LIVER #### [facility] [address] [place] [address] Dr. Agueda Wiley Sodium [Moles/Vol] 138 mmol/L Normal 136-145 [facility] Comment on above: Performed By: #### C MIKKI, LIVER #### [facility] [address] [place] [address] Dr. Agueda Wiley Urea nitrogen [Mass/Vol] 18.0 mg/dL Normal 7.0-18.0 [facility] Comment on above: Performed By: #### C MIKKI, LIVER #### [facility] [address] [place] [address] Dr. Agueda Wiley Urea nitrogen/Creatinine [Mass ratio] 18.8 mg/mg Normal [facility] Comment on above: Performed By: #### C MIKKI, LIVER #### [facility] [address] [place] [address] Dr. Agueda Wiley AMYLASEon 05-17-2022 Amylase [Catalytic activity/Vol] 79 U/L Normal 25-115 [facility] Comment on above: Performed By: #### C SUITE #### [facility] [address] [place] [address] Dr. Agueda Wiley CBC W MANUAL DIFFon 05-17-20 ATYPICAL LYMPH # Normal [facility] Comment on above: Performed By: #### C MIKKI, LIVER #### [facility] [address] [place] [address] Dr. Agueda Wiley ATYPICAL LYMPH % Normal [facility] Comment on above: Performed By: #### C MIKKI, LIVER #### [facility] [address] [place] [address] Dr. Agueda Wiley BAND # Normal 0.0-0.3 [facility] Comment on above: Performed By: #### C MIKKI, LIVER #### [facility] [address] [place] [address] Dr. Agueda Wiley BAND % Normal 0-5 [facility] Comment on above: Performed By: #### C MIKKI, LIVER #### [facility] [address] [place] [address] Dr. Agueda Wiley BASOM # 0.00 103/ul Normal 0.00-0.10 [facility] Comment on above: Performed By: #### C MIKKI, LIVER #### [facility] [address] [place] [address] Dr. Agueda Wiley BASOM % 0.0 % Critically low 0.2-2.0 [facility] Comment on above: Performed By: #### C MIKKI, LIVER #### [facility] [address] [place] [address] Dr. Agueda Wiley BLAST # Normal [facility] Comment on above: Performed By: #### C MIKKI, LIVER #### [facility] [address] [address] [address] Agueda Wiley BLAST % Normal [facility] Comment on above: Performed By: #### C MIKKI, LIVER #### [facility] [address] [place], [place] [address] Dr. Agueda Wiley CORRECTED WBC Normal 4.0-11.0 [facility] Comment on above: Performed By: #### C MIKKI, LIVER #### [facility] [address] [address] [address] Agueda Wiley EOS # 0.00 103/ul Normal 0.00-0.70 [facility] Comment on above: Performed By: #### C MIKKI, LIVER #### [facility] [address] [place] [address] Dr. Agueda Wiley EOS% 0.0 % Critically low 0.9-7.0 [facility] Comment on above: Performed By: #### C MIKKI, LIVER #### [facility] [address] [place] [address] Dr. Agueda Wiley HCT 43.3 % Normal 36.0-48.0 [facility] Comment on above: Performed By: #### C MIKKI, LIVER #### [facility] [address] [place] [address] Dr. Agueda Wiley HGB 14.4 g/dl Normal 12.0-16.0 [facility] Comment on above: Performed By: #### C MIKKI, LIVER #### [facility] [address] [place] [address] Dr. Agueda Wiley LYMPHM # 2.96 103/ul Normal 1.20-3.80 [facility] Comment on above: Performed By: #### C MIKKI, LIVER #### [facility] [address] [place] [address] Dr. Agueda Wiley LYMPHM% 10.0 % Critically low 20.5-60.0 [facility] Comment on above: Performed By: #### C MIKKI, LIVER #### [facility] [address] [address] [address] Agueda Wiley MCH 29.4 pg Normal 26.7-34.0 [facility] Comment on above: Performed By: #### C MIKKI, LIVER #### [facility] [address] [place] [address] Dr. Agueda Wiley MCHC 33.3 g/dl Normal 29.9-35.2 [facility] Comment on above: Performed By: #### C MIKKI, LIVER #### [facility] [address] [place] [address] Dr. Agueda Wiley MCV 88.5 fL Normal 81.0-99.0 [facility] Comment on above: Performed By: #### C MIKKI, LIVER #### [facility] [address] [place] [address] Dr. Agueda Wiley METAMYELOCYTE # Normal [facility] Comment on above: Performed By: #### C MIKKI, LIVER #### [facility] [address] [place] [address] Dr. Agueda Wiley METAMYELOCYTE % Normal [facility] Comment on above: Performed By: #### C MIKKI, LIVER #### [facility] [address] [place] [address] Dr. Agueda Wiley MONOM# 1.78 103/ul Critically high 0.30-0.80 [facility] Comment on above: Performed By: #### C MIKKI, LIVER #### [facility] [address] [place] [address] Dr. Agueda Wiley MONOM% 6.0 % Normal 1.7-12.0 [facility] Comment on above: Performed By: #### C MIKKI, LIVER #### [facility] [address] [place] [address] Dr. Agueda Wiley MPV 10.6 fL Normal 9.5-13.5 [facility] Comment on above: Performed By: #### C MIKKI, LIVER #### [facility] [address] [place] [address] Dr. Agueda Wiley MYELOCYTE # Normal [facility] Comment on above: Performed By: #### C MIKKI, LIVER #### [facility] [address] [address] [address] Agueda Wiley MYELOCYTE % Normal [facility] Comment on above: Performed By: #### C MIKKI, LIVER #### [facility] [address] [address] [address] Agueda Wiley NRBC Normal [facility] Comment on above: Performed By: #### C MIKKI, LIVER #### [facility] [address] [address] [address] Agueda Wiley PLT 383 103/ul Normal 150-450 [facility] Comment on above: Performed By: #### C MIKKI, LIVER #### [facility] [address] [place] [address] Dr. Agueda Wiley RBC 4.89 106/ul Normal 4.20-5.40 [facility] Comment on above: Performed By: #### C MIKKI, LIVER #### [facility] [address] [place] [address] Dr. Agueda Wiley RDW 12.7 % Normal 11.0-15.0 [facility] Comment on above: Performed By: #### C MIKKI, LIVER #### [facility] [address] [place] [address] Dr. Agueda Wiley SEG # 24.86 103/ul Critically high 1.40-6.50 [facility] Comment on above: Performed By: #### C MIKKI, LIVER #### [facility] [address] [address] [address] Agueda Wiley SEG % 84.0 % Critically high 43.0-75.0 [facility] Comment on above: Performed By: #### C MIKKI, LIVER #### [facility] [address] [place] [address] Dr. Agueda Wiley WBC 29.6 103/ul Critically high 4.0-11.0 [facility] Comment on above: Performed By: #### C MIKKI, LIVER #### [facility] [address] [place] [address] ABD/PELVIS WO CONon [...] FAY BERGERON Date: 2022-05-17 10:55 Normal [facility] CULTURE BLOODon 05-17-2022 Microscopic examination of blood, culture Culture Observations: NO GROWTH AT 5 DAYS. Normal [facility] Comment on above: Performed By: #### C MIKKI LIVER #### [facility] [address] [place], [place] [address] Dr. Agueda Wiley Microscopic examination of blood, culture Culture Observations: NO GROWTH AT 5 DAYS. Normal [facility] Comment on above: Performed By: #### C MIKKI LIVER #### [facility] [address] [place], [place] [address] Dr. Agueda Wiley Covid-19 PCR ([facility])on SARS-CoV-2 (COVID-19) RNA JEREMIAH+probe Ql (Unsp spec) Not detected Normal NOT DETECTED [facility] Comment on above: Result Comment: When diagnostic [...] for this test is supported by the Intensivist of Health and Human Service's declaration that [...] used). Performed By: #### R NPAB #### [facility] [address] [place] [address] Dr. Agueda Wiley ER URINE PROFILEon 2 Bilirubin Ql (U) Negative Normal NEGATIVE [facility] Comment on above: Performed By: #### R NPAB #### [facility] [address] [place] [address] Dr. Agueda Wiley Clarity (U) CLEAR Normal CLEAR [facility] Comment on above: Performed By: #### R NPAB #### [facility] [address] [place] [address] Dr. Agueda Wiley Color (U) YELLOW Normal YELLOW [facility] Comment on above: Performed By: #### R NPAB #### [facility] [address] [place] [address] Dr. Agueda Wiley ERUAHD A micrscopic examina tion will be performed if indicated. Normal [facility] Comment on above: Performed By: #### R NPAB #### [facility] [address] [place] [address] Dr. Agueda Wiley Glucose Ql (U) Negative Normal NEGATIVE [facility] Comment on above: Performed By: #### R NPAB #### [facility] [address] [address] [address] Agueda Wiley Hemoglobin Ql (U) Negative Normal NEGATIVE [facility] Comment on above: Performed By: #### R NPAB #### [facility] [address] [place] [address] Dr. Agueda Wiley Ketones Ql (U) 15 mg/dl Abnormal NEGATIVE [facility] Comment on above: Performed By: #### R NPAB #### [facility] [address] [address] [address] Agueda Wiley LEUKOCYTES Negative Normal NEGATIVE [facility] Comment on above: Performed By: #### R NPAB #### [facility] [address] [place] [address] Dr. Agueda Wiley Nitrite Ql (U) Negative Normal NEGATIVE [facility] Comment on above: Performed By: #### R NPAB #### [facility] [address] [place] [address] Dr. Agueda Wiley pH (U) 6.0 [pH] Normal 5-9 [facility] Comment on above: Performed By: #### R NPAB #### [facility] [address] [place] [address] Dr. Agueda Wiley SPEC GRAVITY 1.015 Normal 1.005-<=1.0 25 [facility] Comment on above: Performed By: #### R NPAB #### [facility] [address] [place] [address] Dr. Agueda Wiley UA PROTEIN Negative Normal NEGATIVE/ TRACE [facility] Comment on above: Performed By: #### R NPAB #### [facility] [address] [place] [address] Dr. Agueda Wiley UR MICRO IND NOT INDICATED Normal [facility] Comment on above: Performed By: #### R NPAB #### [facility] [address] [place] [address] Dr. Agueda Wiley Urobilinogen Qn (U) 0.2 {Charl[place]'U}/dL Normal 0.2 - 1. 0 [facility] Comment on above: Performed By: #### R NPAB #### [facility] [address] [place] [address] Dr. Agueda Wiley GI PANEL (PCR)on 05-17-2022 Adenovirus F 40/41 Not detected Normal NOT DETECTED [facility] Comment on above: Performed By: #### C MIKKI, LIVER #### [facility] [address] [place] [address] Dr. Agueda Wiley Astrovirus Not detected Normal NOT DETECTED [facility] Comment on above: Performed By: #### C MIKKI, LIVER #### [facility] [address] [place] [address] Dr. Agueda Uriostegui. Diff toxin A/B Detected Critically abnormal NOT DETECTED [facility] Comment on above: Performed By: #### C MIKKI, LIVER #### [facility] [address] [place] [address] Dr. Agueda Wiley Campylobacter Not detected Normal NOT DETECTED [facility] Comment on above: Performed By: #### C MIKKI, LIVER #### [facility] [address] [place] [address] Dr. Agueda Wiley Cryptosporidium Not detected Normal NOT DETECTED [facility] Comment on above: Performed By: #### C MIKKI, LIVER #### [facility] [address] [place] [address] Dr. Agueda Wiley Cyclos. Cayetanensis Not detected Normal NOT DETECTED [facility] Comment on above: Performed By: #### C MIKKI, LIVER #### [facility] [address] [place] [address] Dr. Agueda Wiley E. Coli O157 Not Applicable Normal Not Applicable [facility] Comment on above: Performed By: #### C MIKKI, LIVER #### [facility] [address] [place] [address] Dr. Agueda Wiley E. histolytica Not detected Normal NOT DETECTED [facility] Comment on above: Performed By: #### C MIKKI, LIVER #### [facility] [address] [place] [address] Dr. Agueda Wiley EAEC Not detected Normal NOT DETECTED [facility] Comment on above: Performed By: #### C MIKKI, LIVER #### [facility] [address] [address] [address] Agueda Wiley EIEC Not detected Normal NOT DETECTED [facility] Comment on above: Performed By: #### C MIKKI, LIVER #### [facility] [address] [address] [address] Agueda Wiley EPEC Not detected Normal NOT DETECTED [facility] Comment on above: Performed By: #### C MIKKI, LIVER #### [facility] [address] [address] [address] Agueda Wiley ETEC Not detected Normal NOT DETECTED [facility] Comment on above: Performed By: #### C MIKKI, LIVER #### [facility] [address] [place] [address] Dr. Agueda Cormier Not detected Normal NOT DETECTED [facility] Comment on above: Performed By: #### C MIKKI, LIVER #### [facility] [address] [place] [address] Dr. Agueda LERNER CONTROLS PASSED Normal [facility] Comment on above: Performed By: #### C MIKKI, LIVER #### [facility] [address] [address] [address] Agueda [facility] HEAD[facility] GI PANEL BACTERIA Normal [facility] Comment on above: Performed By: #### C MIKKI, LIVER #### [facility] [address] [place] [address] Dr. Agueda ALMEIDA ECOLI GI PANEL DIARRHEAGEN IC E.COLI / SHIGELLA Normal [facility] Comment on above: Performed By: #### C MIKKI, LIVER #### [facility] [address] [place] [address] Dr. Agueda ALMEIDA INFO SEE BELOW Normal [facility] Comment on above: Result Comment: EAEC - Enteroaggregative E. Coli EPEC- Enteropathogenic E. Coli ETEC- Enterotoxigenic E. Coli lt/st STEC- Shigella-like toxin-producing E. Coli stx1/stx2 EIEC- Shigella/Enteroinvasive E. Coli Performed By: #### C MIKKI, LIVER #### [facility] [address] [address] [address] Agueda ALMEIDA PARASITES GI PANEL PARASITES Normal [facility] Comment on above: Performed By: #### C MIKKI, LIVER #### [facility] [address] [address] [address] Agueda ALMEIDA VIRUS GI PANEL VIRUSES Normal [facility] Comment on above: Performed By: #### C MIKKI, LIVER #### [facility] [address] [address] [address] Agueda Wiley Norovirus GI/GII Not detected Normal NOT DETECTED [facility] Comment on above: Performed By: #### C MIKKI, LIVER #### [facility] [address] [place] [address] Dr. Agueda Wiley P. Shigelloides Not detected Normal NOT DETECTED [facility] Comment on above: Performed By: #### C MIKKI, LIVER #### [facility] [address] [address] [address] Agueda Wiley Rotavirus A Not detected Normal NOT DETECTED [facility] Comment on above: Performed By: #### C MIKKI, LIVER #### [facility] [address] [place] [address] Dr. Agueda Wiley Salmonella Not detected Normal NOT DETECTED [facility] Comment on above: Performed By: #### C MIKKI, LIVER #### [facility] [address] [place] [address] Dr. Agueda Wiley Sapovirus Not detected Normal NOT DETECTED [facility] Comment on above: Performed By: #### C MIKKI, LIVER #### [facility] [address] [place] [address] Dr. Agueda Wiley STEC Not detected Normal NOT DETECTED [facility] Comment on above: Performed By: #### C MIKKI, LIVER #### [facility] [address] [place] [address] Dr. Agueda Wiley Vibrio Not detected Normal NOT DETECTED [facility] Comment on above: Performed By: #### C MIKKI, LIVER #### [facility] [address] [place] [address] Dr. Agueda Wiley Vibrio Cholera Not detected Normal NOT DETECTED [facility] Comment on above: Performed By: #### C MIKKI LIVER #### [facility] [address] [place] [address] Dr. Agueda Wiley Y. Enterocolitica Not detected Normal NOT DETECTED [facility] Comment on above: Performed By: #### C MIKKI LIVER #### [facility] [address] [place] [address] Dr. Agueda Wiley LACTATE/LACTIC ACIDon 2021 Lactate [Moles/Vol] 1.3 mmol/L Normal 0.4-1.9 [facility] Comment on above: Performed By: #### A NAIFA #### [facility] [address] [place] [address] Dr. Agueda Wiley LIPASEon 05-17-2022 Lipase [Catalytic activity/Vol] 200.0 U/L Normal 73.0-393.0 [facility] Comment on above: Performed By: #### C SUITE #### [facility] [address] [place] [address] Dr. Agueda Wiley PROF 14(COMP METB)on 022 Albumin [Mass/Vol] 2.3 g/dL Critically low 3.4-5.0 [facility] Comment on above: Performed By: #### C SUITE #### [facility] [address] [place] [address] Dr. Agueda Wiley Albumin/Globulin [Mass ratio] 0.6 {ratio} Normal [facility] Comment on above: Performed By: #### C SUITE #### [facility] [address] [place] [address] Dr. Agueda Wiley ALP [Catalytic activity/Vol] 140 U/L Critically high 46-116 [facility] Comment on above: Performed By: #### C SUITE #### [facility] [address] [place] [address] Dr. Agueda Wiley ALT [Catalytic activity/Vol] 26 U/L Normal 14-59 [facility] Comment on above: Performed By: #### C SUITE #### [facility] [address] [address] [address] Agueda Wiley Anion gap [Moles/Vol] 17.5 mmol/L Normal [facility] Comment on above: Performed By: #### C SUITE #### [facility] [address] [address] [address] Agueda Wiley AST [Catalytic activity/Vol] 15 U/L Normal 15-37 [facility] Comment on above: Performed By: #### C SUITE #### [facility] [address] [place] [address] Dr. Agueda Wiley Bilirubin [Mass/Vol] 0.3 mg/dL Normal 0.2-1.0 [facility] Comment on above: Performed By: #### C SUITE #### [facility] [address] [place] [address] Dr. Agueda Wiley Calcium [Mass/Vol] 8.1 mg/dL Critically low 8.5-10.1 [facility] Comment on above: Performed By: #### C SUITE #### [facility] [address] [place] [address] Dr. Agueda Wiley Chloride [Moles/Vol] 98 mmol/L Normal 98-107 [facility] Comment on above: Performed By: #### C SUITE #### [facility] [address] [place] [address] Dr. Agueda Wiley CO2 [Moles/Vol] 21.9 mmol/L Normal 21.0-32.0 [facility] Comment on above: Performed By: #### C SUITE #### [facility] [address] [place] [address] Dr. Agueda Wiley Creatinine [Mass/Vol] 1.00 mg/dL Normal 0.55-1.02 [facility] Comment on above: Performed By: #### C SUITE #### [facility] [address] [place] [address] Dr. Agueda Wiley EGFR-AF PALAUAN >60 Normal >=60 [facility] Comment on above: Performed By: #### C SUITE #### [facility] [address] [place] [address] Dr. Agueda Wiley EGFR-NON AF PALAUAN 55 mL/min/1.73m2 Critically low >=60 [facility] Comment on above: Performed By: #### C SUITE #### [facility] [address] [place] [address] Dr. Agueda Wiley Globulin (S) [Mass/Vol] 3.8 g/dL Normal [facility] Comment on above: Performed By: #### C SUITE #### [facility] [address] [place] [address] Dr. Agueda Wiley Glucose [Mass/Vol] 119 mg/dL Critically high 74-106 [facility] Comment on above: Performed By: #### C SUITE #### [facility] [address] [place] [address] Dr. Agueda Wiley Potassium [Moles/Vol] 3.4 mmol/L Critically low 3.5-5.1 [facility] Comment on above: Performed By: #### C SUITE #### [facility] [address] [place] [address] Dr. Agueda Wiley Protein [Mass/Vol] 6.1 g/dL Critically low 6.4-8.2 Th [facility] Comment on above: Performed By: #### C SUITE #### [facility] [address] [place] [address] Dr. Agueda Wiley Sodium [Moles/Vol] 134 mmol/L Critically low 136-145 Th [facility] Comment on above: Performed By: #### C SUITE #### [facility] [address] [place] [address] Dr. Agueda Wiley Urea nitrogen [Mass/Vol] 19.0 mg/dL Critically high 7.0-18.0 [facility] Comment on above: Performed By: #### C SUITE #### [facility] [address] [place] [address] Dr. Agueda Wiley Urea nitrogen/Creatinine [Mass ratio] 19.0 mg/mg Normal [facility] Comment on above: Performed By: #### C SUITE #### [facility] [address] [place] [address] Dr. Agueda Wiley PROTIMEon 05-17-2022 INR Coag (PPP) [Relative time] 1.12 {INR} Normal [facility] Comment on above: Performed By: #### C MIKKI, LIVER #### [facility] [address] [place], [place] [address] Dr. Agueda Wliey INR GUIDELINES SEE BELOW Normal [facility] Comment on above: Result Comment: ROSA RED INR: 2.0 - 3.0 CONDITIONS NOT LISTED BELOW 2.5 - 3.5 FOR PROSTHETIC HEART VALVE REPLACEMENT 2.5 - 3.5 RECURRENT THROMBOSIS Performed By: #### C MIKKI, LIVER #### [facility] [address] [place], [place] [address] Dr. Agueda Wiley PT Coag (PPP) [Time] 12.0 s Critically high 9.0-11.6 [facility] Comment on above: Performed By: #### C MIKKI, LIVER #### [facility] [address] [place], [place] [address] Dr. Agueda Wiley PTTon 05-17-2022 aPTT Coag (Bld) [Time] 24.8 s Normal 22.3-36.2 [facility] Comment on above: Performed By: #### C MIKKI, LIVER #### [facility] [address] [place], [place] [address] Dr. Agueda Wiley XR knee LT 3Von 04-16-2022 XR knee LT 3V [facility] [employer] Other XR knee LT 3V [facility] [employer] Other XR knee LT 3V [address] [place] [address] [employer] Other XR knee LT 3V [address] [employer] Other XR knee LT 3V XRay Report [employer] Other XR knee LT 3V Signed [facility] [employer] Other XR knee LT 3V Patient: Reba Gregory MR#: [id number] [facility] [employer] Other XR knee LT 3V : 1955 Acct:[id number] [employer] Other XR knee LT 3V Age/Sex: 66 / F ADM Date: 04/16/22 [employer] Other XR knee LT 3V Loc: [facility] Room: Type : [facility] [employer] Other XR knee LT 3V Attending Dr: Nabor Nelson II, MD [employer] Other XR knee LT 3V Copies to: Nabor Nelson MD [employer] Other XR knee LT 3V Ordering Provider: Ragini Nelson MD [employer] Other XR knee LT 3V Date of Service: 04/16/22 [employer] Other XR knee LT 3V XR/XR knee LT 3V - NOT FOR ER USE: Aftercare following joint replacement [employer] Other XR knee LT 3V surgery [employer] Other XR knee LT 3V LEFT KNEE - 4 views No rt [employer] Other XR knee LT 3V CLINICAL HISTORY: Follow-up left knee surgery. [employer] Other XR knee LT 3V COMPARISON: Left kne e 03/02/2022 [employer] Other XR knee LT 3V FINDINGS: [employer] Other XR knee LT 3V Left knee prosthesis without radiographic complication. No acute bony process. [employer] Other XR knee LT 3V X R/XR knee LT 3V - NOT FOR ER USE [employer] Other XR knee LT 3V IMPRESSION: [employer] Other XR knee LT 3V NO EVIDENCE OF HARDW ARE COMPLICATION. [employer] Other XR knee LT 3V Impression dictated by: Dave Espana Jr., Dalton04/16/2022 10:02 AM [employer] Other XR knee LT 3V Dictation Location: [place] [address] [employer] Other XR knee LT 3V Transcribed By: PWS 04/16/22 1002 [employer] Other XR knee LT 3V Dictated By: Dave Espana Jr, DO 04/16/22 1001 [employer] Other XR knee LT 3V Signed By: [employer] Other XR knee LT 3V 04/16/22 1002 [employer] Other Basophils Auto (Bld) [#/Vol] Ordered By: Nabor Nelson on 03-03-2022 Basophils (Bld) [#/Vol] 0.0 10*3/uL 0.0-0.2 [facility] Basophils/100 WBC Auto (Bld) Ordered By: Nabor Nelson on 03-03-2022 Basophils/100 WBC (Bld) 0.2 % . [facility] Blood hemoglobin measurement (mass/volume)Ordered By: Nabor Nelson on 03-03-2022 Hemoglobin (Bld) [Mass/Vol] 11.4 g/dL 11.8-15.4 [facility] Blood leukocytes automated c ount (number/volume)Ordered By: Nabor Nelson on 03-03-2022 WBC (Bld) [#/Vol] 8.3 10*3/uL 4.5-11.0 [facility] Creatinine and Glomerular fi ltration rate.predicted panel (S/P/Bld)Ordered By: Nabor Nelson on 03-03-2022 Creatinine [Mass/Vol] 0.95 mg/dL 0.44-1.03 [facility] Eosinophils Auto (Bld) [#/Vo l]Ordered By: Nabor Nelson on 03-03-2022 Eosinophils (Bld) [#/Vol] 0.0 10*3/uL 0.0-0.45 [facility] Eosinophils/100 WBC Auto (Bl d)Ordered By: Nabor Nelson on 03-03-2022 Eosinophils/100 WBC (Bld) 0.0 % . [facility] Erythrocyte distribution wid th Auto (RBC) [Ratio]Ordered By: Nabor Nelson on 03-03-2022 Erythrocyte distribution width (RBC) [Ratio] 15.0 % 11.9-15.3 [facility] Estimated glomerular filtrat ion rate (GFR) non- AmericanOrdered By: Nabor Nelson on 03-03-2022 GFR/1.73 sq M.predicted among non-blacks MDRD (S/P/Bld) [Vol rate/Area] 59 mL/Min [facility] Hematocrit Auto (Bld) [Volum e fraction]Ordered By: Nabor Nelson on 03-03-2022 Hematocrit (Bld) [Volume fraction] 33.7 % 34.0-46.4 [facility] Laboratory - Hematology and Cell countsOrdered By: Nabor Nelson on 03-03-2022 Nucleated RBC/100 WBC (Bld) [Ratio] 0.0 % 0-0.5 [facility] Lymphocytes Auto (Bld) [#/Vo l]Ordered By: Nabor Nelson on 03-03-2022 Lymphocytes (Bld) [#/Vol] 0.8 10*3/uL 1.00-4.8 [facility] Lymphocytes/100 WBC Auto (Bl d)Ordered By: Nabor Nelson on 03-03-2022 Lymphocytes/100 WBC (Bld) 9.6 % . [facility] MCH Auto (RBC) [Entitic mass ]Ordered By: Nbaor Nelson on 03-03-2022 MCH (RBC) [Entitic mass] 31.0 pg 24.7-34.3 [facility] MCHC Auto (RBC) [Mass/Vol]Or dered By: Nabor Nelson on 03-03-2022 MCHC (RBC) [Mass/Vol] 33.7 g/dL 32.0-35.0 [facility] MCV Auto (RBC) [Entitic vol] Ordered By: Nabor Nelson on 03-03-2022 MCV (RBC) [Entitic vol] 92.0 fL 80-100 [facility] Monocytes Auto (Bld) [#/Vol] Ordered By: Nabor Nelson on 03-03-2022 Monocytes (Bld) [#/Vol] 1.0 10*3/uL 0.0-0.8 [facility] Monocytes/100 WBC Auto (Bld) Ordered By: Nabor Nelson on 03-03-2022 Monocytes/100 WBC (Bld) 12.6 % . [facility] Neutrophils Auto (Bld) [#/Vo l]Ordered By: Nabor Nelson on 03-03-2022 Neutrophils (Bld) [#/Vol] 6.4 10*3/uL 1.8-7.7 [facility] Neutrophils/100 WBC Auto (Bl d)Ordered By: Nabor Nelson on 03-03-2022 Neutrophils/100 WBC (Bld) 77.6 % . [facility] No Panel InformationOrdered By: Nabor Nelson on 03-03-2022 Estimated GFR () > 60 mL/Min [facility] Comment on above: GFR estimated refere nce range: According to KDOQI guidelines, <60 ml/min/1.73m2 is sufficient to diagnose a patient with chronic kidney disease. Pharmacy Creatinine Clearance (Chem 55.10 [facility] Platelet mean volume Auto (B ld) [Entitic vol]Ordered By: Nabor Nelson on 03-03-2022 Platelet mean volume (Bld) [Entitic vol] 10.5 fL 6.3-10.7 [facility] Platelets Auto (Bld) [#/Vol] Ordered By: Nabor Nelson on 03-03-2022 Platelets (Bld) [#/Vol] 187 10*3/uL 150-450 [facility] RBC Auto (Bld) [#/Vol]Ordere d By: Nabor Nelson on 03-03-2022 RBC (Bld) [#/Vol] 3.66 10*6/uL 3.60-5.00 [facility] Serum or plasma calcium phan urement (mass/volume)Ordered By: Nabor Nelson on 03-03-2022 Calcium [Mass/Vol] 9.2 mg/dL 8.2-10.2 [facility] Serum or plasma chloride wilma surement (moles/volume)Ordered By: Nabor Nelson on 03-03-2022 Chloride [Moles/Vol] 107 mmol/L 95-114 [facility] Serum or plasma glucose phan urement (mass/volume)Ordered By: Nabor Nelson on 03-03-2022 Glucose [Mass/Vol] 157 mg/dL 70-100 [facility] Comment on above: ADA recommended refe rence range Random Glucose Reference Range is dependent on time and content of last meal. Glucose of more than 200 mg/dL in a nonstressed, ambulatory subject supports the diagnosis of Diabetes Mellitus. Serum or plasma potassium me asurement (moles/volume)Ordered By: Nabor Nelson on 03-03-2022 Potassium [Moles/Vol] 4.0 mmol/L 3.5-5.1 [facility] Serum or plasma sodium measu rement (moles/volume)Ordered By: Nabor Nelson on 03-03-2022 Sodium [Moles/Vol] 139 mmol/L 136-146 [facility] Serum or plasma total carbon dioxide measurement (moles/volume)Ordered By: Nabor Nelson on 03-03-2022 CO2 [Moles/Vol] 24.8 mmol/L 22.0-30.0 [facility] Serum or plasma urea nitroge n measurement (mass/volume)Ordered By: Nabor Nelson on 03-03-2022 Urea nitrogen [Mass/Vol] 12 mg/dL 9-23 [facility] COVID-19 Positive/NegativeOr dered By: Nabor Nelson on 02-26-2022 SARS-CoV-2 (COVID-19) N gene JEREMIAH+probe Ql (Resp) Negative Negative [facility] Comment on above: Testing for SARS-CoV -2 by RT-PCR This test was developed and its performance characteristics determined by [employer] ([employer]) and validated at the [facility]. This test has not been FDA [...] 01-30-2022 BASO # 0.0 103/ul Normal 0.0-0.1 [facility] Comment on above: Performed By: #### C MIKKI, LIVER #### [facility] [address] [place] [address] Dr. Agueda Wiley Basophils/100 WBC (Bld) 0.6 % Normal 0.2-2.0 [facility] Comment on above: Performed By: #### Gila KAYE, LIVER #### [facility] [address] [place] [address] Dr. Agueda Wiley EO # 0.2 103/ul Normal 0.0-0.7 [facility] Comment on above: Performed By: #### Gila KAYE, LIVER #### [facility] [address] [place] [address] Dr. Agueda Wiley Eosinophils/100 WBC (Bld) 2.7 % Normal 0.9-7.0 [facility] Comment on above: Performed By: #### Gila KAYE, LIVER #### [facility] [address] [place] [address] Dr. Agueda Wiley Erythrocyte distribution width (RBC) [Ratio] 14.0 % Normal 11.0-15.0 [facility] Comment on above: Performed By: #### Gila KAYE, LIVER #### [facility] [address] [place] [address] Dr. Agueda Wiley Hematocrit (Bld) [Volume fraction] 42.1 % Normal 36.0-48.0 [facility] Comment on above: Performed By: #### Gila KAYE, LIVER #### [facility] [address] [address] [address] Agueda Wiley Hemoglobin (Bld) [Mass/Vol] 13.8 g/dL Normal 12.0-16.0 [facility] Comment on above: Performed By: #### C MIKKI, LIVER #### [facility] [address] [place] [address] Dr. Agueda Wiley IG # 0.02 10e3/ul Normal 0.00-0.03 [facility] Comment on above: Performed By: #### C MIKKI, LIVER #### [facility] [address] [place] [address] Dr. Agueda Wiley IG % 0.3 % Normal 0.0-0.5 [facility] Comment on above: Performed By: #### C MIKKI, LIVER #### [facility] [address] [place] [address] Dr. Agueda Wiley LYMPH # 1.6 103/ul Normal 1.2-3.8 [facility] Comment on above: Performed By: #### C MIKKI, LIVER #### [facility] [address] [place] [address] Dr. Agueda Wiley Lymphocytes/100 WBC (Bld) 23.3 % Normal 20.5-60.0 [facility] Comment on above: Performed By: #### C MIKKI, LIVER #### [facility] [address] [place] [address] Dr. Agueda Wiley MCH (RBC) [Entitic mass] 29.7 pg Normal 26.7-34.0 [facility] Comment on above: Performed By: #### C MIKKI, LIVER #### [facility] [address] [place] [address] Dr. Agueda Wiley MCHC (RBC) [Mass/Vol] 32.8 g/dL Normal 29.9-35.2 [facility] Comment on above: Performed By: #### C MIKKI, LIVER #### [facility] [address] [place] [address] Dr. Agueda Wiley MCV (RBC) [Entitic vol] 90.7 fL Normal 81.0-99.0 [facility] Comment on above: Performed By: #### C MIKKI, LIVER #### [facility] [address] [place] [address] Dr. Agueda Wiley MONO # 0.8 103/ul Normal 0.3-0.8 [facility] Comment on above: Performed By: #### C MIKKI, LIVER #### [facility] [address] [place] [address] Dr. Agueda Wiley Monocytes/100 WBC (Bld) 10.7 % Normal 1.7-12.0 [facility] Comment on above: Performed By: #### C MIKKI, LIVER #### [facility] [address] [place] [address] Dr. Agueda Wiley NEUT # 4.4 103/ul Normal 1.4-6.5 [facility] Comment on above: Performed By: #### C MIKKI, LIVER #### [facility] [address] [place] [address] Dr. Agueda Wiley Neutrophils/100 WBC (Bld) 62.4 % Normal 43.0-75.0 [facility] Comment on above: Performed By: #### C MIKKI, LIVER #### [facility] [address] [place] [address] Dr. Agueda Wiley Platelet mean volume (Bld) [Entitic vol] 11.0 fL Normal 9.5-13.5 [facility] Comment on above: Performed By: #### C MIKKI, LIVER #### [facility] [address] [place] [address] Dr. Agueda Wiley PLT 270 103/ul Normal 150-450 [facility] Comment on above: Performed By: #### C MIKKI, LIVER #### [facility] [address] [place] [address] Dr. Agueda Wiley RBC 4.64 106/ul Normal 4.20-5.40 [facility] Comment on above: Performed By: #### C MIKKI, LIVER #### [facility] [address] [place] [address] Dr. Agueda Wiley WBC 7.0 103/ul Normal 4.0-11.0 [facility] Comment on above: Performed By: #### C MIKKI, LIVER #### [facility] [address] [address] [address] Agueda Wiley SAULO- BMP WITH LIPIDon 2021 Anion gap [Moles/Vol] 12.5 mmol/L Normal [facility] Comment on above: Performed By: #### C MIKKI, LIVER #### [facility] [address] [address] [address] Agueda Wiley Calcium [Mass/Vol] 9.0 mg/dL Normal 8.5-10.1 [facility] Comment on above: Performed By: #### C MIKKI, LIVER #### [facility] [address] [place] [address] Dr. Agueda Wiley Chloride [Moles/Vol] 105 mmol/L Normal 98-107 [facility] Comment on above: Performed By: #### C MIKKI, LIVER #### [facility] [address] [address] [address] Agueda Wiley Cholesterol [Mass/Vol] 246 mg/dL Critically high <=200 [facility] Comment on above: Performed By: #### C MIKKI, LIVER #### [facility] [address] [place] [address] Dr. Agueda Wiley Cholesterol in HDL [Mass/Vol] 84 mg/dL Critically high 40-60 [facility] Comment on above: Performed By: #### C MIKKI, LIVER #### [facility] [address] [place] [address] Dr. Agueda Wiley Cholesterol in LDL [Mass/Vol] 130.6 mg/dL Normal [facility] Comment on above: Performed By: #### C MIKKI, LIVER #### [facility] [address] [place] [address] Dr. Agueda Wiley CO2 [Moles/Vol] 28.4 mmol/L Normal 21.0-32.0 [facility] Comment on above: Performed By: #### C MIKKI, LIVER #### [facility] [address] [place] [address] Dr. Agueda Wiley Creatinine [Mass/Vol] 0.97 mg/dL Normal 0.55-1.02 [facility] Comment on above: Performed By: #### Gila KAYE, LIVER #### [facility] [address] [address] [address] Agueda Wiley EGFR-AF PALAUAN >60 Normal >=60 [facility] Comment on above: Performed By: #### C MIKKI, LIVER #### [facility] [address] [address] [address] Agueda Wiley EGFR-NON AF PALAUAN 57 mL/min/1.73m2 Critically low >=60 [facility] Comment on above: Performed By: #### C MIKKI, LIVER #### [facility] [address] [address] [address] Agueda Wiley Glucose [Mass/Vol] 96 mg/dL Normal 74-106 [facility] Comment on above: Performed By: #### Gila KAYE, LIVER #### [facility] [address] [address] [address] Agueda Wiley HDL NORMAL > or = 60 mg/dl - LO W CARDIOVASCULAR RISK <40 mg/dl - HIGH CARDIOVASCULAR RISK Normal [facility] Comment on above: Performed By: #### Gila KAYE, LIVER #### [facility] [address] [place] [address] Dr. Agueda Wiley LDL CALC NORMAL SEE BELOW Normal [facility] Comment on above: Result Comment: <100 mg/dl OPTIMAL 100 - 129 mg/dl NEAR OR ABOVE OPTIMAL 130 - 159 mg/dl BORDERLINE HIGH 160 - 189 mg/dl HIGH >190 mg/dl VERY HIGH Performed By: #### Gila KAYE, LIVER #### [facility] [address] [address] [address] Agueda Wiley Potassium [Moles/Vol] 3.9 mmol/L Normal 3.5-5.1 [facility] Comment on above: Performed By: #### C MIKKI, LIVER #### [facility] [address] [address] [address] Agueda Wiley Sodium [Moles/Vol] 142 mmol/L Normal 136-145 [facility] Comment on above: Performed By: #### C MIKKI, LIVER #### [facility] [address] [address] [address] Agueda Wiley Triglyceride [Mass/Vol] 157 mg/dL Critically high <=150 [facility] Comment on above: Performed By: #### C MIKKI, LIVER #### [facility] [address] [address] [address] Agueda Wiley Urea nitrogen [Mass/Vol] 19.0 mg/dL Critically high 7.0-18.0 [facility] Comment on above: Performed By: #### C MIKKI, LIVER #### [facility] [address] [address] [address] Agueda Wiley Urea nitrogen/Creatinine [Mass ratio] 19.6 mg/mg Normal [facility] Comment on above: Performed By: #### C MIKKI, LIVER #### [facility] [address] [address] [address] Agueda Wiley VLDL CALC 31.4 mg/dL Normal [facility] Comment on above: Performed By: #### C MIKKI, LIVER #### [facility] [address] [address] [address] Agueda Wiley Vital Signs Date Time Vital Sign Value Performing Clinician Facility 06-08-2024 04:16-0400 Diastolic blood pressure 69 mm[Hg] Georgemaeve Carl DO Work Phone: [facility] 06-08-2024 04:16-0400 Heart rate 67 /min George Carl DO Work Phone: [facility] 06-08-2024 04:16-0400 Respiratory rate 18 /min George Carl DO Work Phone: [facility] 06-08-2024 04:16-0400 SaO2% (BldA) [Mass fraction] 97 % George Carl DO Work Phone: [facility] 06-08-2024 04:16-0400 Systolic blood pressure 129 mm[Hg] George Carl DO Work Phone: [facility] 06-07-2024 22:15-0400 Body temperature 97.11 [degF] George Carl DO Work Phone: [facility] 04-28-2024 08:20-0400 Body height 143.51 cm [facility] 04-28-2024 08:20-0400 Body mass index (BMI) [Ratio] 36.2 kg/m2 [facility] 04-28-2024 08:20-0400 Body weight 74.58 kg [facility] 04-28-2024 08:20-0400 Diastolic blood pressure 78 mm[Hg] [facility] 04-28-2024 08:20-0400 Heart rate 63 /min [facility] 04-28-2024 08:20-0400 Respiratory rate 18 /min [facility] 04-28-2024 08:20-0400 SaO2% (BldA) [Mass fraction] 95 % [facility] 04-28-2024 08:20-0400 Systolic blood pressure 160 mm[Hg] [facility] 03-09-2024 09:05-0400 Body height 143.51 cm [facility] 03-09-2024 09:05-0400 Body mass index (BMI) [Ratio] 36.1 kg/m2 [facility] 03-09-2024 09:05-0400 Body weight 74.44 kg [facility] 03-09-2024 09:05-0400 Diastolic blood pressure 77 mm[Hg] [facility] 03-09-2024 09:05-0400 Heart rate 66 /min [facility] 03-09-2024 09:05-0400 Respiratory rate 12 /min [facility] 03-09-2024 09:05-0400 Systolic blood pressure 184 mm[Hg] [facility] 02-29-2024 09:27-0400 Body height 151.13 cm [facility] 02-29-2024 09:27-0400 Body mass index (BMI) [Ratio] 32.2 kg/m2 [facility] 02-29-2024 09:27-0400 Body weight 73.68 kg [facility] 02-29-2024 09:27-0400 Diastolic blood pressure 87 mm[Hg] [facility] 02-29-2024 09:27-0400 Heart rate 64 /min [facility] 02-29-2024 09:27-0400 Respiratory rate 18 /min [facility] 02-29-2024 09:27-0400 SaO2% (BldA) [Mass fraction] 97 % [facility] 02-29-2024 09:27-0400 Systolic blood pressure 151 mm[Hg] [facility] 01-05-2024 10:32-0400 Body height 151.13 cm [facility] 01-05-2024 10:32-0400 Body mass index (BMI) [Ratio] 32.1 kg/m2 [facility] 01-05-2024 10:32-0400 Body weight 73.48 kg [facility] 01-05-2024 10:32-0400 Diastolic blood pressure 80 mm[Hg] [facility] 01-05-2024 10:32-0400 Heart rate 64 /min [facility] 01-05-2024 10:32-0400 SaO2% (BldA) [Mass fraction] 97 % [facility] 01-05-2024 10:32-0400 Systolic blood pressure 150 mm[Hg] [facility] 12-09-2023 15:06-0400 Body height 151.13 cm DO Jonathan Ball Work Phone: [facility] 12-09-2023 15:06-0400 Body mass index (BMI) [Ratio] 32.3 kg/m2 DO Jonathan Ball Work Phone: [facility] 12-09-2023 15:06-0400 Body weight 73.99 kg DO Jonathan Ball Work Phone: [facility] 12-09-2023 15:06-0400 Diastolic blood pressure 95 mm[Hg] DO Jonathan Ball Work Phone: [facility] 12-09-2023 15:06-0400 Diastolic blood pressure 85 mm[Hg] [facility] 12-09-2023 15:06-0400 Heart rate 65 /min DO Jonathan Ball Work Phone: [facility] 12-09-2023 15:06-0400 Respiratory rate 12 /min DO Jonathan Ball Work Phone: [facility] 12-09-2023 15:06-0400 Systolic blood pressure 171 mm[Hg] DO Jonathan Ball Work Phone: [facility] 12-09-2023 15:06-0400 Systolic blood pressure 155 mm[Hg] [facility] 11-17-2023 08:43-0500 Body height 151.13 cm DO Jonathan Ball Work Phone: [facility] 11-17-2023 08:43-0500 Body mass index (BMI) [Ratio] 32.4 kg/m2 DO Jonathan Ball Work Phone: [facility] 11-17-2023 08:43-0500 Body weight 74.07 kg DO Jonathan Ball Work Phone: [facility] 11-17-2023 08:43-0500 Diastolic blood pressure 78 mm[Hg] DO Jonathan Ball Work Phone: [facility] 11-17-2023 08:43-0500 Heart rate 58 /min DO Jonathan Ball Work Phone: [facility] 11-17-2023 08:43-0500 Respiratory rate 20 /min DO Jonathan Ball Work Phone: [facility] 11-17-2023 08:43-0500 SaO2% (BldA) [Mass fraction] 96 % DO Jonathan Ball Work Phone: [facility] 11-17-2023 08:43-0500 Systolic blood pressure 158 mm[Hg] DO Jonathan Ball Work Phone: [facility] 09-21-2023 11:15-0500 Body height 151.13 cm Massiel Fitt Other [facility] 09-14-2023 11:15-0500 Body height 151.13 cm Massiel Fitt Other [facility] 09-09-2023 09:30-0500 Body height 151.13 cm Jonathan Ball Other [employer] Other 09-09-2023 09:30-0500 Body mass index (BMI) [Ratio] 33.8 kg/m2 Jonathan Ball Other [employer] Other 09-09-2023 09:30-0500 Body weight 77.2 kg Jonathan Ball Other [employer] Other 09-09-2023 09:30-0500 Diastolic blood pressure 80 mm[Hg] Jonathan Ball Other [employer] Other 09-09-2023 09:30-0500 Respiratory rate 12 /min Jonathan Ball Other [facility] Other 09-09-2023 09:30-0500 Systolic blood pressure 169 mm[Hg] Jonathan Ball Other [employer] Other 08-19-2023 08:30-0500 Body height 151.13 cm [facility] Other [facility] Other 08-19-2023 08:30-0500 Body mass index (BMI) [Ratio] 33.6 kg/m2 [facility] Other [facility] Other 08-19-2023 08:30-0500 Body weight 76.75 kg [facility] Other [facility] Other 08-19-2023 08:30-0500 Diastolic blood pressure 97 mm[Hg] [facility] Other [facility] Other 08-19-2023 08:30-0500 Respiratory rate 18 /min Olayinka Ramos Other [facility] Other 08-19-2023 08:30-0500 SaO2% (BldA) [Mass fraction] 96 % Olayinka Ramos Other [facility] Other 08-19-2023 08:30-0500 Systolic blood pressure 128 mm[Hg] Olayinka Ramos Other [facility] Other 08-17-2023 10:45-0500 Body height 151.13 cm Jonathan Ball Other [employer] Other 08-17-2023 10:45-0500 Body mass index (BMI) [Ratio] 33.8 kg/m2 Jonathan Ball Other [employer] Other 08-17-2023 10:45-0500 Body weight 77.2 kg Jonathan Ball Other [employer] Other 08-17-2023 10:45-0500 Diastolic blood pressure 74 mm[Hg] Jonathan Ball Other [facility] Other 08-17-2023 10:45-0500 Respiratory rate 16 /min Jonathan Ball Other [facility] Other 08-17-2023 10:45-0500 Systolic blood pressure 168 mm[Hg] Jonathan Ball Other [facility] Other 08-03-2023 11:15-0500 Body height 151.13 cm Massiel Pereira Other [facility] Other 06-16-2023 08:45-0400 Body height 151.13 cm Olayinka Ramos Other [facility] Other 06-16-2023 08:45-0400 Body mass index (BMI) [Ratio] 35.58 kg/m2 Olayinka [employer] Other [facility] Other 06-16-2023 08:45-0400 Body weight 81.29 kg Olayinka [employer] Other [facility] Other 06-16-2023 08:45-0400 Diastolic blood pressure 76 mm[Hg] [employer] Other [employer] Other 06-16-2023 08:45-0400 Respiratory rate 18 /min [employer] Other [facility] Other 06-16-2023 08:45-0400 SaO2% (BldA) [Mass fraction] 96 % [employer] Other [facility] Other 06-16-2023 08:45-0400 Systolic blood pressure 141 mm[Hg] [employer] Other [facility] Other 06-09-2023 10:00-0400 Body height 151.13 cm Jonathan Ball Other [employer] Other 06-09-2023 10:00-0400 Body mass index (BMI) [Ratio] 35.78 kg/m2 Jonathan Ball Other [employer] Other 06-09-2023 10:00-0400 Body weight 81.74 kg Jonathan Ball Other [facility] Other 06-09-2023 10:00-0400 Diastolic blood pressure 84 mm[Hg] Jonathan Ball Other [employer] Other 06-09-2023 10:00-0400 Respiratory rate 16 /min Jonathan Ball Other [employer] Other 06-09-2023 10:00-0400 Systolic blood pressure 145 mm[Hg] Jonathan Ball Other [facility] Other 05-12-2023 11:15-0400 Body height 151.13 cm Massiel Sunnyosiel Other [employer] Other 05-05-2023 09:15-0400 Body height 151.13 cm Olayinka [employer] Other [facility] Other 05-05-2023 09:15-0400 Body mass index (BMI) [Ratio] 37.51 kg/m2 Olayinka [employer] Other [facility] Other 05-05-2023 09:15-0400 Body weight 85.69 kg Olayinka [employer] Other [facility] Other 05-05-2023 09:15-0400 Diastolic blood pressure 72 mm[Hg] Olayinka [employer] Other [facility] Other 05-05-2023 09:15-0400 Respiratory rate 18 /min Olayinka [employer] Other [facility] Other 05-05-2023 09:15-0400 SaO2% (BldA) [Mass fraction] 97 % Olayinka [employer] Other [facility] Other 05-05-2023 09:15-0400 Systolic blood pressure 147 mm[Hg] Olayinka [employer] Other [facility] Other 08-01-2023 14:00-0400 Body height 151.13 cm Jonathan Ball Other [facility] Other 04-13-2023 14:00-0400 Body mass index (BMI) [Ratio] 39.16 kg/m2 Jonathan Ball Other [facility] Other 04-13-2023 14:00-0400 Body weight 89.45 kg Jonathan Ball Other [facility] Other 04-13-2023 14:00-0400 Diastolic blood pressure 82 mm[Hg] Jonathan Ball Other [employer] Other 04-13-2023 14:00-0400 Respiratory rate 12 /min Jonathan Ball Other [employer] Other 04-13-2023 14:00-0400 Systolic blood pressure 166 mm[Hg] Jonathan Ball Other [facility] Other 04-07-2023 10:00-0400 Body height 151.13 cm [facility] Other [facility] Other 04-07-2023 10:00-0400 Body mass index (BMI) [Ratio] 39.89 kg/m2 [facility] Other [facility] Other 04-07-2023 10:00-0400 Body weight 91.13 kg [facility] Other [facility] Other 04-07-2023 10:00-0400 Diastolic blood pressure 81 mm[Hg] [facility] Other [facility] Other 04-07-2023 10:00-0400 Respiratory rate 18 /min [facility] Other [facility] Other 04-07-2023 10:00-0400 SaO2% (BldA) [Mass fraction] 95 % Olayinka Ramos Other [employer] Other 04-07-2023 10:00-0400 Systolic blood pressure 171 mm[Hg] Olayinak Ramos Other [employer] Other 03-04-2023 11:00-0400 Body height 151.13 cm Jonathan Ball Other [employer] Other 03-04-2023 11:00-0400 Body mass index (BMI) [Ratio] 39.48 kg/m2 Jonathan Ball Other [employer] Other 03-04-2023 11:00-0400 Body weight 90.18 kg Jonathan Ball Other [employer] Other 03-04-2023 11:00-0400 Diastolic blood pressure 83 mm[Hg] Jonathan Ball Other [employer] Other 03-04-2023 11:00-0400 Respiratory rate 12 /min Jonathan Ball Other [employer] Other 03-04-2023 11:00-0400 Systolic blood pressure 149 mm[Hg] Jonathan Ball Other [employer] Other 02-17-2023 08:45-0400 Body height 151.13 cm Nabor Nelson II Other [employer] Other 02-17-2023 08:45-0400 Body mass index (BMI) [Ratio] 38.92 kg/m2 Nabor Stollisle II Other [employer] Other 02-17-2023 08:45-0400 Body weight 88.91 kg Nabor Nelson II Other [employer] Other 11-25-2022 09:30-0400 Body height 151.13 cm Jonathan Ball Other [employer] Other 11-25-2022 09:30-0400 Body mass index (BMI) [Ratio] 39.04 kg/m2 Jonathan Ball Other [employer] Other 11-25-2022 09:30-0400 Body weight 89.18 kg Jonathan Ball Other [employer] Other 11-25-2022 09:30-0400 Diastolic blood pressure 82 mm[Hg] Jonathan Ball Other [employer] Other 11-25-2022 09:30-0400 Respiratory rate 16 /min Jonathan Ball Other [employer] Other 11-25-2022 09:30-0400 SaO2% (BldA) [Mass fraction] 97 % Jonathan Ball Other [employer] Other 11-25-2022 09:30-0400 Systolic blood pressure 144 mm[Hg] Jonathan Ball Other [employer] Other 10-15-2022 10:15-0500 Body height 151.13 cm George Ryan Other [employer] Other 10-15-2022 10:15-0500 Body mass index (BMI) [Ratio] 36.34 kg/m2 George Ryan Other [employer] Other 10-15-2022 10:15-0500 Body temperature 97.8 [degF] George Ryan Other [employer] Other 10-15-2022 10:15-0500 Body weight 83.01 kg George Del Realsj Other [employer] Other 10-15-2022 10:15-0500 Diastolic blood pressure 78 mm[Hg] George Shelby Other [employer] Other 10-15-2022 10:15-0500 SaO2% (BldA) [Mass fraction] 97 % George Del Realsj Other [employer] Other 10-15-2022 10:15-0500 Systolic blood pressure 132 mm[Hg] George Del Realsj Other [employer] Other 10-02-2022 14:45-0500 Body height 151.13 cm Jonathan Ball Other [employer] Other 10-02-2022 14:45-0500 Body mass index (BMI) [Ratio] 36.34 kg/m2 Jonathan Ball Other [employer] Other 10-02-2022 14:45-0500 Body weight 83.01 kg Jonathan Ball Other [employer] Other 10-02-2022 14:45-0500 Diastolic blood pressure 68 mm[Hg] Jonathan Ball Other [employer] Other 10-02-2022 14:45-0500 Respiratory rate 16 /min Jonathan Ball Other [employer] Other 10-02-2022 14:45-0500 Systolic blood pressure 130 mm[Hg] Jonathan Ball Other [employer] Other 10-01-2022 09:45-0500 Body height 151.13 cm George Del Realsj Other [employer] Other 10-01-2022 09:45-0500 Body mass index (BMI) [Ratio] 35.74 kg/m2 George Del Realsj Other [employer] Other 10-01-2022 09:45-0500 Body temperature 97.8 [degF] George Del Realsj Other [employer] Other 10-01-2022 09:45-0500 Body weight 81.65 kg George Del Realsj Other [employer] Other 10-01-2022 09:45-0500 Diastolic blood pressure 84 mm[Hg] George Ryan Other [employer] Other 10-01-2022 09:45-0500 SaO2% (BldA) [Mass fraction] 91 % George Del Realsj Other [employer] Other 10-01-2022 09:45-0500 Systolic blood pressure 148 mm[Hg] George Ryan Other [employer] Other 09-21-2022 10:15-0500 Body height 151.13 cm Jonathan Ball Other [employer] Other 09-21-2022 10:15-0500 Body mass index (BMI) [Ratio] 36.34 kg/m2 Jonathan Ball Other [employer] Other 09-21-2022 10:15-0500 Body weight 83.01 kg Jonathan Ball Other [employer] Other 09-21-2022 10:15-0500 Diastolic blood pressure 90 mm[Hg] Jonathan Ball Other [employer] Other 09-21-2022 10:15-0500 Respiratory rate 16 /min Jonathan Ball Other [employer] Other 09-21-2022 10:15-0500 Systolic blood pressure 148 mm[Hg] Jonathan Ball Other [employer] Other 09-17-2022 13:00-0500 Body height 151.13 cm George Ryan Other [employer] Other 09-17-2022 13:00-0500 Body mass index (BMI) [Ratio] 35.35 kg/m2 George Ryan Other [employer] Other 09-17-2022 13:00-0500 Body temperature 97.1 [degF] George Ryan Other [employer] Other 09-17-2022 13:00-0500 Body weight 80.74 kg George Ryan Other [employer] Other 09-17-2022 13:00-0500 Diastolic blood pressure 82 mm[Hg] George Ryan Other [employer] Other 09-17-2022 13:00-0500 SaO2% (BldA) [Mass fraction] 97 % George Ryan Other [employer] Other 09-17-2022 13:00-0500 Systolic blood pressure 160 mm[Hg] George Ryan Other [employer] Other 05-28-2022 09:15-0400 Body height 151.13 cm Nabor [place] II Other [employer] Other 05-28-2022 09:15-0400 Body mass index (BMI) [Ratio] 35.35 kg/m2 Nabor [place] II Other [employer] Other 05-28-2022 09:15-0400 Body weight 80.74 kg Nabor [place] II Other [employer] Other 04-16-2022 09:15-0400 Body height 151.13 cm Nabor [place] II Other [employer] Other 04-16-2022 09:15-0400 Body mass index (BMI) [Ratio] 35.35 kg/m2 Nabor [place] II Other [employer] Other 04-16-2022 09:15-0400 Body weight 80.74 kg Nabor Omar II Other [employer] Other 03-18-2022 11:45-0400 Body height 151.13 cm Nabor [place] II Other [employer] Other 03-18-2022 11:45-0400 Body mass index (BMI) [Ratio] 35.54 kg/m2 Nabor [place] II Other [employer] Other 03-18-2022 11:45-0400 Body weight 81.19 kg Nabor [place] II Other [employer] Other 03-03-2022 11:53-0400 Heart rate 95 /min DO Jonathan Ball Work Phone: [facility] 03-03-2022 11:53-0400 Respiratory rate 20 /min DO Jonathan Ball Work Phone: [facility] 03-03-2022 11:25-0400 Body temperature 99.2 [degF] DO Jonathan Ball Work Phone: [facility] 03-03-2022 11:25-0400 Diastolic blood pressure 81 mm[Hg] DO Jonathan Ball Work Phone: [facility] 03-03-2022 11:25-0400 Inhaled oxygen flow rate 2 L/min DO Jonathan Ball Work Phone: [facility] 03-03-2022 11:25-0400 SaO2% (BldA) [Mass fraction] 95 % DO Jonathan Ball Work Phone: [facility] 03-03-2022 11:25-0400 Systolic blood pressure 149 mm[Hg] DO Jonathan Ball Work Phone: [facility] 03-03-2022 06:00-0400 Body weight 83.8 kg DO Jonathan Ball Work Phone: [facility] 03-02-2022 10:15-0400 Body height 153.67 cm DO Jonathan Ball Work Phone: [facility] 03-02-2022 10:15-0400 Body mass index (BMI) [Ratio] 35.4 kg/m2 DO Jonathan Ball Work Phone: [facility] 02-11-2022 15:00-0400 Body height 151.13 cm Nabor Nelson II Other [employer] Other 02-11-2022 15:00-0400 Body mass index (BMI) [Ratio] 35.74 kg/m2 Nabor Omar II Other [employer] Other 02-11-2022 15:00-0400 Body weight 81.65 kg Nabor [place] II Other [employer] Other 11-20-2021 14:00-0500 Body height 151.13 cm Nabor Nelson II Other [employer] Other 11-20-2021 14:00-0500 Body mass index (BMI) [Ratio] 36.54 kg/m2 Nabor Nelson II Other [employer] Other 11-20-2021 14:00-0500 Body weight 83.46 kg Nabor Nelson II Other [employer] Other Encounters Encounter Date Encounter Type Care Provider Facility Start: 06-08-2024 End: 06-08-2024 E.D. Visit Carolyn Torres [facility] Social Work Comment on above: Trauma/complex Medic al Situation Start: 06-07-2024 End: 06-08-2024 Emergency department patient visit George Siddhartha DO Work Phone: [facility] Start: 04-28-2024 End: 04-28-2024 ambulatory [facility] Work Phone: Start: 04-28-2024 End: 04-28-2024 Patient encounter procedure [facility] Work Phone: Start: 03-15-2024 Non-patient / Non-visit [facility] Physician [facility] Work Phone: Start: 03-09-2024 End: 03-09-2024 ambulatory [facility] Work Phone: Start: 03-09-2024 End: 03-09-2024 Patient encounter procedure [facility] Physician [facility] Work Phone: Start: 02-29-2024 End: 02-29-2024 ambulatory [facility] Work Phone: Start: 02-29-2024 End: 02-29-2024 Patient encounter procedure [facility] Work Phone: Start: 02-16-2024 End: 02-16-2024 ambulatory [facility] Work Phone: Start: 02-16-2024 End: 02-16-2024 Patient encounter procedure [facility] Physician [facility] Work Phone: Start: 01-26-2024 End: 01-26-2024 ambulatory RAYMOND SAUCEDA Not Available Start: 01-11-2024 Non-patient / Non-visit [facility] Physician [facility] Work Phone: Start: 01-06-2024 End: 01-06-2024 ambulatory [facility] Work Phone: Start: 01-06-2024 End: 01-06-2024 Patient encounter procedure [facility] Work Phone: Start: 01-05-2024 End: 01-05-2024 ambulatory [facility] Work Phone: Start: 01-05-2024 End: 01-05-2024 Patient encounter procedure [facility] Physician [facility] Work Phone: Start: 12-21-2023 Non-patient / Non-visit [facility] Physician [facility] Work Phone: Start: 12-09-2023 End: 12-09-2023 ambulatory DO Jonathan Ball Work Phone: [facility] Work Phone: Start: 12-09-2023 End: 12-09-2023 Patient encounter procedure DO Jonathan Ball Work Phone: [facility] Physician [facility] Work Phone: Start: 12-06-2023 End: 12-06-2023 ambulatory Jonathan Ball Other [facility] [employer] Other Start: 12-06-2023 Telephone encounter Jonathan Ball [facility] Start: 11-23-2023 End: 11-23-2023 Patient encounter procedure DO Jonathan Ball Work Phone: [facility] Work Phone: Start: 11-17-2023 End: 11-17-2023 Patient encounter procedure DO Jonathan Smith Work Phone: [facility] Work Phone: Start: 11-16-2023 Non-patient / Non-visit DO Colton Smith Work Phone: [facility] [employer] Work Phone: Start: 09-21-2023 IBT FOR OBESITY GROU P 2-10 30M Massiel Fitt [facility] Start: 09-21-2023 End: 09-21-2023 ambulatory Jonathan Smith [facility] [employer] Other Start: 09-21-2023 Registered Recurring DO Olu in [place] Work Phone: [facility] Work Phone: Start: 09-21-2023 End: 09-21-2023 Patient encounter procedure DO Jonathan Smith Work Phone: [facility] Work Phone: Start: 09-14-2023 End: 09-14-2023 ambulatory Massiel Fitt Other [facility] [employer] Other Start: 09-14-2023 IBT FOR OBESITY GROU P 2-10 30M Massiel Fitt [facility] Start: 09-14-2023 End: 09-14-2023 Patient encounter procedure DO Jonathan Smith Work Phone: [facility] Work Phone: Start: 09-10-2023 End: 09-10-2023 ambulatory Jonathan Smith Other [employer] Other Start: 09-10-2023 Telephone encounter Jonathan Smith [facility] Start: 09-09-2023 End: 09-09-2023 ambulatory Jonathan Smith Other [employer] Other Start: 09-09-2023 Office outpatient vi sit 25 minutes Jonathan Smith [facility] Start: 08-19-2023 End: 08-19-2023 ambulatory Olayinka Ramos Other [employer] Other Start: 08-19-2023 Follow-up encounter Olayinka Keller [facility] Start: 08-18-2023 End: 08-18-2023 ambulatory Jonathan Smith Other [employer] Other Start: 08-18-2023 Telephone encounter Jonathan CONNELL [facility] Start: 08-17-2023 End: 08-17-2023 ambulatory Jonathan Smith Other [employer] Other Start: 08-17-2023 Office outpatient vi sit 15 minutes Jonathan Smith [facility] Start: 08-03-2023 End: 08-03-2023 ambulatory Massiel Fitt Other [employer] Other Start: 08-03-2023 IBT FOR OBESITY GROU P 2-10 30M [facility] Start: 07-14-2023 End: 07-14-2023 ambulatory Jonathan Smith Other [employer] Other Start: 07-14-2023 Telephone encounter Jonathan CONNELL [facility] Start: 07-08-2023 End: 07-08-2023 ambulatory Olayinka Ramos Other [employer] Other Start: 07-08-2023 Telephone encounter Olayinka Keller betty [facility] Start: 07-06-2023 End: 07-06-2023 ambulatory Massiel Fitt Other [employer] Other Start: 07-06-2023 IBT FOR OBESITY GROU P 2-10 30M [facility] Start: 07-02-2023 End: 07-02-2023 ambulatory Jonathan Smith Other [employer] Other Start: 07-02-2023 Telephone encounter Jonathan CONNELL [facility] Start: 06-16-2023 End: 06-16-2023 ambulatory Olayinka Ramos Other [employer] Other Start: 06-16-2023 Follow-up encounter Olayinkawalt Ramos [facility] Start: 06-09-2023 End: 06-09-2023 ambulatory Jonathan Smith Other [employer] Other Start: 06-09-2023 Office outpatient vi sit 25 minutes Jonathan Smith [facility] Start: 06-09-2023 Telephone encounter Jonathan CONNELL [facility] Start: 06-01-2023 End: 06-01-2023 ambulatory Massiel Fitt Other [employer] Other Start: 06-01-2023 IBT FOR OBESITY GROU P 2-10 30M [facility] Start: 05-25-2023 End: 05-25-2023 ambulatory Jonathan Smith Other [employer] Other Start: 05-25-2023 Telephone encounter Jonathan CONNELL [facility] Start: 05-12-2023 End: 05-12-2023 ambulatory Massiel Fitt Other [employer] Other Start: 05-12-2023 IBT FOR OBESITY GROU P 2-10 30M Massiel [facility] Start: 05-05-2023 End: 05-05-2023 ambulatory Olayinka Ramos Other [employer] Other Start: 05-05-2023 Follow-up encounter Olayinkawalt Ramos Krishna betty [facility] Start: 05-05-2023 Telephone encounter Olayinka Ramos Krishna [facility] Start: 04-24-2023 End: 04-24-2023 ambulatory Jonathan Smith Other [employer] Other Start: 04-24-2023 Telephone encounter Jonathan CONNELL [facility] Start: 04-21-2023 End: 04-21-2023 ambulatory Jonathna Smith Facility:[facility] Start: 04-13-2023 End: 04-13-2023 ambulatory Jonathan Smith Other [employer] Other Start: 04-13-2023 Office outpatient vi sit 25 minutes Jonathan Smith [facility] Start: 04-08-2023 End: 04-08-2023 ambulatory Jonathan Smith Other [employer] Other Start: 04-08-2023 Telephone encounter Jonathan Smith FP [facility] Start: 04-07-2023 End: 04-07-2023 ambulatory Olayinka Ramos Other [employer] Other Start: 04-07-2023 Nutrition therapy Olayinka Ramos [facility] Start: 03-12-2023 End: 03-12-2023 ambulatory Jonathan Smith Other [employer] Other Start: 03-12-2023 Telephone encounter Jonathan CONNELL [facility] Start: 03-04-2023 End: 03-04-2023 ambulatory Jonathan Smith Other [employer] Other Start: 03-04-2023 Patient encounter procedure Jonathan Smith [facility] Start: 03-03-2023 Office outpatient vi sit 15 minutes Kiana Munson [facility] Start: 03-03-2023 End: 03-03-2023 Patient encounter procedure DO Jonathan Smith Work Phone: [facility] Start: 03-03-2023 End: 03-03-2023 ambulatory DO Jonathan Smith Work Phone: [facility] Work Phone: Start: 02-17-2023 End: 02-17-2023 Patient encounter procedure DO Jonathan Smith Work Phone: [facility] Start: 02-17-2023 End: 02-17-2023 ambulatory DO Jonathan Smith Work Phone: [facility] Work Phone: Start: 02-03-2023 End: 02-03-2023 Patient encounter procedure DO Jonathan Smith Work Phone: [facility]-Lab [address] Work Phone: Start: 01-21-2023 End: 01-22-[address] NABOR WILSON Facility: Start: 11-27-2022 Telephone encounter Jonathan Smith [facility] Start: 11-27-2022 End: 11-28-[address] NABOR WILSON [facility] [employer] Other Start: 11-25-2022 End: 11-25-2022 ambulatory Jonathan Smith Other [employer] Other Start: 11-25-2022 Office outpatient vi sit 25 minutes Jonathan Earl [facility] Start: 10-28-2022 End: 10-28-2022 ambulatory Kiana Munson Other [employer] Other Start: 10-28-2022 Office outpatient vi sit 15 minutes Kiana Munson [facility] Start: 10-15-2022 End: 10-15-2022 ambulatory George Ryan Other [employer] Other Start: 10-15-2022 Office outpatient vi sit 10 minutes George Ryan [facility] Start: 10-08-2022 End: 10-08-2022 ambulatory DO Jonathan Smith Work Phone: [facility] Work Phone: Start: 10-08-2022 End: 10-08-2022 Patient encounter procedure DO Jonathan Earl Work Phone: [facility]-Lab [address] [place] Work Phone: Start: 10-07-2022 End: 10-07-2022 ambulatory Kiana Munson Other [employer] Other Start: 10-07-2022 Office outpatient vi sit 15 minutes Kiana Munson [facility] Start: 10-05-2022 End: 10-06-[address] NABOR WILSON Facility: Start: 10-05-2022 End: 10-05-2022 ambulatory DO Jonathan Ball Work Phone: [facility] [email or web address] Work Phone: Start: 10-05-2022 End: 10-05-2022 Patient encounter procedure DO Jonathan Ball Work Phone: [facility]-CT Scan [facility] [place] Work Phone: Start: 10-02-2022 End: 10-02-2022 ambulatory Jonathan Smith Other [employer] Other Start: 10-02-2022 Office outpatient vi sit 15 minutes Jonathan Smith [facility] Start: 10-01-2022 End: 10-01-2022 ambulatory George Ryan Other [employer] Other Start: 10-01-2022 Office outpatient vi sit 25 minutes George Ryan [facility] V[facility] Start: 09-29-[address] Jonathan Smith Facility:[facility] Start: 09-28-2022 End: 09-28-2022 ambulatory Jonathan Smith Other [employer] Other Start: 09-28-2022 Telephone encounter Jonathan Simth [facility] Start: 09-24-2022 End: 09-24-2022 ambulatory DO Jonathan Ball Work Phone: [facility] [email or web address] Work Phone: Start: 09-24-2022 End: 09-24-2022 Patient encounter procedure DO Jonathan Ball Work Phone: [facility]-Electrodiagnostics Work Phone: Start: 09-24-[address] Jonathan Smith Facility:[id number] Start: 09-23-2022 End: 09-23-2022 Patient encounter procedure DO Jonathan Ball Work Phone: [facility] Start: 09-23-2022 End: 09-23-2022 ambulatory DO Jonathan Ball Work Phone: [facility] Work Phone: Start: 09-23-2022 Office outpatient ne w 45 minutes Kiana Munson [facility] Start: 09-21-2022 End: 09-21-2022 ambulatory Jonathan Ball Other [facility] [employer] Other Start: 09-21-2022 Office outpatient vi sit 25 minutes Jonathan Ball [facility] Start: 09-17-2022 Office outpatient vi sit 25 minutes George Ryan [facility] Start: 09-17-2022 End: 09-17-2022 ambulatory DO Jonathan Ball Work Phone: [facility] Work Phone: Start: 09-17-2022 End: 09-17-2022 Patient encounter procedure DO Jonathan Ball Work Phone: [facility] Start: 09-08-2022 End: 09-08-2022 ambulatory DO Jonathan Ball Work Phone: [facility] Work Phone: Start: 09-08-2022 End: 09-08-2022 Patient encounter procedure DO Jonathan Ball Work Phone: [facility]-CT Scan [facility] [place] Work Phone: Start: 08-31-2022 End: 09-01-[address] NABOR WILSON Facility:[facility] Start: 08-24-2022 Adult health examination Olayinka Ramos Other [employer] Other Start: 08-24-2022 Pre-procedure evaluation check Olayinka Ramos Other [employer] Other Start: 08-14-2022 End: 08-14-[address] JONATHAN SMITH Facility:[facility] Start: 08-13-2022 End: 08-14-[address] JONATHAN SMITH Facility:[facility] Start: 08-04-2022 End: 08-05-[address] NABOR WILSON Facility:[facility] Start: 06-09-2022 End: 06-10-[address] JONATHAN SMITH Facility:[facility] Start: 05-28-2022 (Post-Op) Post-Op Nabor [place] II [facility] Start: 05-28-2022 End: 05-28-2022 ambulatory Nabor [place] II Other [employer] Other Start: 05-28-2022 End: 05-28-2022 Patient encounter procedure DO Jonathan Smith Work Phone: [facility] Start: 05-17-2022 End: 05-20-2022 Evaluation and management of inpatient DR YOVANA RG Facility:[facility] Start: 04-16-2022 (Post-Op) Post-Op Nabor [place] II [facility] Start: 04-16-2022 End: 04-16-2022 ambulatory Nabor [place] II Other [employer] Other Start: 04-16-2022 End: 04-16-2022 Patient encounter procedure DO Jonathan Smith Work Phone: [facility] Start: 03-26-2022 (Post-Op) Post-Op Nabor Omar II [facility] Start: 03-26-2022 End: 03-26-2022 ambulatory Nabor Omar II Other [employer] Other Start: 03-24-2022 End: 04-15-[address] JONATHAN SMITH Facility:[facility] Start: 03-18-2022 (Post-Op) Post-Op Nabor Omar II [facility] Start: 03-18-2022 End: 03-18-2022 ambulatory Nabor Omar II Other [employer] Other Start: 03-18-2022 Telephone encounter Nabor [place] II [facility] Start: 03-04-2022 End: 03-04-2022 ambulatory Nabor Nelson II Other [employer] Other Start: 03-04-2022 Telephone encounter Nabor Rodríguezle II [facility] Start: 03-02-2022 End: 03-03-2022 Admission to same day surgery center DO Jonathan Smith Work Phone: [facility]-Surgery Center [facility] [place] Start: 02-27-2022 End: 02-27-2022 ambulatory Nabor Rodríguezle II Other [employer] Other Start: 02-27-2022 Telephone encounter Nabor Rodríguezle II [facility] Start: 02-26-2022 End: 02-26-2022 Patient encounter procedure DO Jonathan Smith Work Phone: [facility]-Pre-Surgical Testing Start: 02-20-2022 (Prolonged) Prolonge d Services Nabor [place] II [facility] Start: 02-20-2022 End: 02-20-2022 ambulatory Nabor [place] II Other [employer] Other Start: 02-11-2022 End: 02-11-2022 ambulatory Nabor [place] II Other [employer] Other Start: 02-11-2022 Patient encounter procedure Nbaor [place] II [facility] Start: 01-30-2022 End: 01-31-2022 ambulatory NONE LISTED REQUEST Facility: Start: 01-15-2022 End: 01-15-2022 ambulatory Nabor Nelson II Other [employer] Other Start: 01-15-2022 Telephone encounter Nabor Nelson II [facility] Start: 11-20-2021 End: 11-20-2021 ambulatory Nabor Nelson II Other [employer] Other Start: 11-20-2021 Office outpatient ne w 60 minutes Nabor Nelson II [facility] Procedures Date Procedure Procedure Detail Performing Clinician Start: 06-07-2024 Ct thoracic spine w/ o contrast material Luis Fernando Marin DO Work Phone: Start: 06-07-2024 Radiology Comparison study - date and time Milvia Rodriguez MD Work Phone: Start: 06-07-2024 Radex hand minimum 3 views Milvia Rodriguez MD Work Phone: Start: 06-07-2024 Assay of lactate Keila Contreras MD Work Phone: Start: 06-07-2024 Blood typing, ABO, R ho(D) and RBC antibody screening Keila Contreras MD Work Phone: Start: 06-07-2024 Drug screen quantita tive alcohols Keila Contreras MD Work Phone: Start: 03-03-2023 Plain X-ray of left wrist [...] Phone: Start: 10-04-2018 Preoperative cardiov ascular examination [employer] Other Start: 10-04-2018 Preoperative pulmona ry examination [employer] Other Start: 06-29-2017 Screening for osteoporosis [facility] Start: 07-08-2015 General examination of patient [employer] Sc[employer] Depression screening [employer] Other Plan of Treatment Date Care Activity Detail Author Start: 05-14-2024 COVID-19 Vaccine ( season) COVID-19 Vaccine ( season) [facility] Start: 05-14-2024 Influenza vaccination Influenza Vacc ine (#1) [facility] Start: 10-08-2022 Hemolytic complement CH50 level [facility] Start: 10-08-2022 [facility] Start: 03-03-2022 [facility] Work Phone: Start: 03-02-2022 Referral to clinical environmental studies faculty member [facility] Work Phone: Start: 03-02-2022 Hospital admission [facility] Work Phone: Start: 01-11-2022 Annual wellness visit Annual W [id number][facility] Start: 12-30-2019 Pneumococcal vaccination Pneum ococcal Vaccine(s) (65+ yrs) (1 of 1 - PCV) [facility] Start: 12-30-2019 Screening for osteoporosis Bone Densitometry [facility] Start: 2014 Hepatitis B (HBV) Vaccine (optional start 60+ years) Hepatitis B (HBV) Vaccine (optional start 60+ years) [facility] Start: 2004 Shingles (RZV) Vacci ne (1 of 2) Shingles (RZV) Vaccine (1 of 2) [facility] Start: 12-30-1999 Lipid panel Cholesterol [facility] Start: 12-30-1999 Screening for malign ant neoplasm of colon [facility] Start: 1994 Screening for malign ant neoplasm of breast Mammography [facility] Start: 1973 Hepatitis A (HAV) Vaccine (optional start 19+ years) Hepatitis A (HAV) Vaccine (optional start 19+ years) [facility] Start: 1972 Hepatitis C screening [facility]atitis [facility] Start: 1972 Tdap Booster Tdap Booster [facility] Start: 1954 Screening for malign ant neoplasm of colon Colonoscopy [facility] End: 06-07-2024 Blood typing serologic abo ABO RH TYPE Lab STAT One time for 1 Occurrences starting 06/07/2024 until 06/07/2024 [facility] Work Phone: Comment on above: One time for 1 Occur rences starting 06/07/2024 until 06/07/2024 Complement C3 [Mass/volume] in Serum or Plasma [facility] Complement C4 [Mass/volume] in Serum or Plasma [facility] Cryofibrinogen [Presence] in Plasma [facility] Cryoglobulin [Presen ce] in Serum [facility] End: 06-07-2024 DOWNLOAD [employer] IMAGES TO [employer] DOWNLOAD [employer] IMAGES TO [employer] Imaging STAT Today for 1 Occurrences starting 06/07/2024 until 06/07/2024 [employer] Work Phone: Comment on above: Today for 1 Occurren irina starting 06/07/2024 until 06/07/2024 IgA [Mass/volume] in Serum or Plasma [facility] IgE [Units/volume] i n Serum or Plasma [facility] IgG [Mass/volume] in Serum or Plasma [facility] IgM [Mass/volume] in Serum or Plasma [facility] Patient referral [facility] Work Phone: [facility] Immunizations Immunization Date Immunization Notes Care Provider Fa cility 07-23-2023 influenza virus vaccine, unspecified formulation DO Jonathan [employer] Work Phone: [facility] 07-23-2023 influenza, high dose seasonal, preservative-free Massiel Sunnyt Other [employer] Other 07-09-2021 COVID-19 mRNA-1273 (Moderna) DO Jonathan [employer] Work Phone: [facility] 06-16-2021 influenza virus vaccine, split virus (incl. purified surface antigen) Olayinka Ramos Other [employer] Other 06-16-2021 influenza virus vaccine, unspecified formulation DO Jonathan [employer] Work Phone: [facility] 10-16-2020 COVID-19 mRNA-1273 (Moderna) DO [employer] Work Phone: [facility] 09-19-2020 COVID-19 mRNA-1273 (Moderna) DO [employer] Work Phone: [facility] 05-21-2020 pneumococcal conjuga te vaccine, 13 valent Olayinka Ramos Other [facility] 06-26-2019 influenza, seasonal, injectable [facility] 06-06-2018 influenza, injectabl e, quadrivalent, preservative free [facility] 09-16-2015 pneumococcal polysaccharide vaccine, 23 valent Jonathan Smith Other [facility] 06-28-2013 tetanus and diphther ia toxoids, adsorbed, preservative free, for adult use (5 Lf of tetanus toxoid and 2 Lf of diphtheria toxoid) Olayinka Ramos Other [facility] 06-14-2012 zoster vaccine, live Whitney Smith Other [facility] 08-07-2009 pneumococcal conjuga te vaccine, 7 valent Jonathan Smith Other [facility] 08-07-2009 pneumococcal Conjuga te, unspecified formulation DO Jonathan Smith Work Phone: [facility] 08-02-2009 novel [id number], preservative-free, injectable [facility] 08-02-2009 influenza virus vaccine, unspecified formulation George Cardenasyves DO Work Phone: [facility] 07-17-2009 pneumococcal polysaccharide vaccine, 23 valent Olayinka Ramos Other [facility] Payers Date Payer Category Payer Self-pay [id number] 2021 Unknown 2021 Medicare MEDICARE MEDICAR E PART A & B [id number] 2021-Present [address] [place] [address] Medicare [id number] 1959 Medicare [id number] 1959 Self-pay [id number] 1959 Unknown [id number] [id number] 1954 Unknown [id number] 2.16.840.1.105734.3.579.2.356 1954 Unknown [id number] 2.16.840.1.686848.3.579.2.593 1954 Unknown [id number] 2.16.840.1.901461.3.579.2.593 1954 Unknown [id number] 2.16.840.1.958553.3.579.2.593 1954 Unknown [id number] 2.16.840.1.631668.3.579.2.593 1954 Unknown [id number] 2.16.840.1.501569.3.579.2.593 1954 Unknown [id number] 2..840.1.922104.3.579.2.593 1954 Unknown [id number] 2.16.840.1.026195.3.579.2.593 1954 Unknown [id number] 2..840.1.287133.3.579.2.593 1954 Unknown [id number] 2..840.1.139189.3.579.2.593 1954 Unknown [id number] 2..840.1.444833.3.579.2.593 1954 Unknown [id number] 2.16.840.1.583964.3.579.2.1259 Unknown [facility] [id number] Unknown [id number] 2.16.840.1.867458.3.579.2.593 Unknown [id number] 2.16.840.1.402179.3.579.2.531 Unknown [id number] 2.16.840.1.858150.3.579.2.531 Unknown [id number] 2.16.840.1.207284.3.579.2.531 Unknown [id number] 2.16.840.1.189545.3.579.2.531 Social History Date Type Detail Facility Unknown if ever smoked [facility] [employer] Other Sex Assigned At [facility] [employer] Other Start: 03-02-2022 End: 03-02-2022 Tobacco smoking status NHIS Ex-smoker (finding) [facility] Start: 1955 Sex Assigned At Female [facility] Start: 11-17-2023 Tobacco smoking status WYIS Never smoked tobacco (finding) [facility] Tobacco smoking status WYIS Tobacco smoking consumption unknown [facility] Start: 1955 [facility] assigned at Not [facility] file [facility] Procedure Code Equipment Code Equipment Origin al Text Equipment Identifier Dates Arthroplasty, knee, total, minimally invasive Orthopaedic cement, non-medicated ()[id number] FDA Start: 03-02-2022 Arthroplasty, knee, total, minimally invasive Orthopaedic cement, non-medicated ()[id number] FDA Start: 03-02-2022 Arthroplasty, knee, total, minimally invasive Uncoated knee femur prosthesis ()[id number] FDA Start: 03-02-2022 Arthroplasty, knee, total, minimally invasive Tibial insert ()[id number] FDA Start: 03-02-2022 Arthroplasty, knee, total, minimally invasive Uncoated knee tibia prosthesis, metallic ()[id number] FDA Start: 03-02-2022 Arthroplasty, knee, total, minimally invasive Polyethylene patella prosthesis ()[id number] FDA Start: 03-02-2022 Arthroplasty, knee, total, minimally invasive Knee stem ()[id number] FDA Start: 03-02-2022 Goals Date Patient Goal Desired Activity /State Functional Status Date Assessment Result Facility 03-03-2022 Functional status Patient at Baseline [facility] Work Phone: Mental Status Date Assessment Result Facility 03-03-2022 Cognitive function Cognitive Sta tus Patient at Baseline [facility] Work Phone: Clinical Notes 11-20-2021 to 06-08-2024 Discharge InstructionsAttaMarkel Chandra MD - 06/08/2024 1:26 AM EDTReCarolyn ojeda LSW - 06/08/2024 1:26 AM Markel Maurice MD - 06/08/2024 1:26 AM EDT Note Date & Type Note Facility 06-08-2024 Hospital Discharg e instructions Luis Fernando Marin DO - 06/08/2024 3:38 AM EDT Tylenol (acetaminophen) Warning: Some medications you have been given today contain Tylenol (acetaminophen). Do not take other medications which contain Tylenol (acetaminophen). Many common over the counter cold and pain medications include Tylenol (acetaminophen) as an ingredient. Please be very careful, and if you are unsure ask your doctor or pharmacist. Do not share your medication with anyone. High Blood Pressure: You were noted to have high blood pressure today. High blood pressure can have serious detrimental effects on your body. It is very important for you to see your Primary Care Physician (or call [phone] if you do not have a PCP) for follow up in the next 5-7 days. TRANSPORTATION TO [facility] FOR AN APPOINTMENT: PLEASE CALL Headache Instructions: Return to the ED if your headache worsens, you develop weakness or numbness on one side of the body or the other, you develop blurred vision or difficulty with speech. Head Injury Instructions: Return to the ED if you have problems seeing, walking, talking, if you vomit more than once, if you are hard to wake up, have unequal pupils, slurred speech, or a seizure. Back Injury Instructions: Return to the ED if you have weakness or numbness in your arms or legs, you are unable to control your bowels or bladder, or you are unable to walk or if you have worsening pain in your back. Procedures done during this visit: None The following attachments cannot be sent through Care Everywhere.Wound Care Discharge Instructions (Guinean)documented in this encounter [facility] 06-08-2024 Procedure note [facility] GENERAL SURGERY Reba Gregory [id number] PROCEDURE NOTE: Laceration Repair Location: Scalp Size: ~12cm Complexity: Intermediate Informed consent, after discussion of the risks, benefits, and alternatives to the procedure, was obtained and the consent form was signed by patient . The patient was identified using two patient identifiers: Yes. The H&P along with required diagnostics are available in Epic: Yes The correct procedure was verified: Yes Procedural site identified: Yes Presence of required equipment verified prior to starting procedure: Yes Patient allergies identified or reviewed: Yes Site marking done: Not indicated A timeout to verify the correct patient, procedure, and site was performed immediately prior to the procedure Procedure: The laceration irrigated with normal saline and scrubbed. Anesthesia was obtained by local infiltration of 15cc Lido 1% with Epinephrine. The wound was explored and no foreign body was noted. Hemostasis was achieved. Laceration was curvilinear shaped, and involved the galea, subcutaneous tissue, and dermis, with exposed skull. The site was then repaired using 3-0 vicryl suture in an interrupted fashion for the galea, 3-0 chromic suture in a simple interrupted fashion for the superficial scalp up to the hairline, and 5-0 fast gut suture in a simple interrupted fashion for the forehead. The wound was dressed with bacitracin. The patient tolerated the procedure well. Wound Care Instructions Provided to Patient: Keep area(s) clean and dry. Do not scrub wound(s), pat dry. Do not submerge wound(s) in standing water until seen back in clinic (no tub bathing, swimming, or hot tubs). No lotions or creams. Return to health care provider or call if wound(s)/surrounding area have increased swelling, pain, warmth, redness, or drainage that is thick, yellow and/or green. Puneet/sutures will NOT need to be removed. Dr. Contreras was present on the unit for the procedure and immediately available for assistance for the duration of the procedure. Markel Fajardo MD, PGY-1 General Surgery Department [facility] Work Phone: 06-08-2024 History of Presen t illness Narrative CAT 2 Pt is a 68 y/o female that presented to the ED via [facility] from [facility] s/p fall w/ head LAC, +thinners, GCS 15, a&ox4. Pt was not able to provide any history regarding her fall. Per EMS, pt was very intoxicated when she arrived at OSH. EMS reported that pt was at home when she fell and hit her head on the door frame. Pt requested for SW to contact her Lobo Gregory [phone]. SW informed of medical care administered to pt. SW also inquired on the mechanism of pt's fall. believe that pt tripped and fell. Pt's fall was not witnessed. reported that he will present to the ED tomorrow 06/09/24. can be reached by phone for additional needs. Plan: Pending AHSAN Garcia LSW ED Social Work documented in this encounter [facility] 06-08-2024 Procedure note [facility] GENERAL SURGERY Reba Colt [id number] PROCEDURE NOTE: Laceration Repair Location: Scalp Size: ~12cm Complexity: Intermediate Informed consent, after discussion of the risks, benefits, and alternatives to the procedure, was obtained and the consent form was signed by patient . The patient was identified using two patient identifiers: Yes. The H&P along with required diagnostics are available in Epic: Yes The correct procedure was verified: Yes Procedural site identified: Yes Presence of required equipment verified prior to starting procedure: Yes Patient allergies identified or reviewed: Yes Site marking done: Not indicated A timeout to verify the correct patient, procedure, and site was performed immediately prior to the procedure Procedure: The laceration irrigated with normal saline and scrubbed. Anesthesia was obtained by local infiltration of 15cc Lido 1% with Epinephrine. The wound was explored and no foreign body was noted. Hemostasis was achieved. Laceration was curvilinear shaped, and involved the galea, subcutaneous tissue, and dermis, with exposed skull. The site was then repaired using 3-0 vicryl suture in an interrupted fashion for the galea, 3-0 chromic suture in a simple interrupted fashion for the superficial scalp up to the hairline, and 5-0 fast gut suture in a simple interrupted fashion for the forehead. The wound was dressed with bacitracin. The patient tolerated the procedure well. Wound Care Instructions Provided to Patient: Keep area(s) clean and dry. Do not scrub wound(s), pat dry. Do not submerge wound(s) in standing water until seen back in clinic (no tub bathing, swimming, or hot tubs). No lotions or creams. Return to health care provider or call if wound(s)/surrounding area have increased swelling, pain, warmth, redness, or drainage that is thick, yellow and/or green. Puneet/sutures will NOT need to be removed. Dr. Contreras was present on the unit for the procedure and immediately available for assistance for the duration of the procedure. Markel Fajardo MD, PGY-1 General Surgery Department documented in this encounter [facility] 06-07-2024 Note Formatting of this n ote is different from the original. Substance Use Assessment 06/07/24, 11:41 PM Reba Gregory 68 year old; 1955 Gender & Sex Assigned at : female; female Current Address/Phone: [address] [place] [address] [address] [facility] [address], Phone numbers Data Unavailable No chief complaint on file. Financial: Hospital Account Acct Number Financial Class [id number] None Primary Payer Payer Patient Insurance ID Group Number MEDICARE [id number] None Plan Plan Number Plan Address Plan Phone [employer] MEDICARE PART A & B [address] [place] [address] None None Secondary Payer Payer Patient Insurance ID Group Number [employer] [id number] Plan Plan Number Plan Address Plan Phone [employer] Phone [employer] [address] / [place] [address] None None : No Consent/Resources Patient declined intervention and resources. DEEDEE met with Pt who stated they was drinking today and black out. Pt is in morning due of of brother, and stated they used alcohol to cope with there brother . DEEDEE and Pt discussed healthy coping strategies. DEEDEE left business card for Pt can follow up. The substance use navigator assessment of the patient is currently Complete Jarret Mohamud [facility] 06-07-2024 Miscellaneous Notes Substance Use Assessment 06/07/24, 11:41 PM Reba Gregory 68 year old; 1955 Gender & Sex Assigned at : female; female Current Address/Phone: [address] [place] [address] [address] [facility] [address], Phone numbers Data Unavailable No chief complaint on file. Financial: Hospital Account Acct Number Financial Class [id number] None Primary Payer Payer Patient Insurance ID Group Number MEDICARE [id number] None Plan Plan Number Plan Address Plan Phone [employer] Phone MEDICARE PART A & B [address] [place] [address] None None Secondary Payer Payer Patient Insurance ID Group Number [employer] [id number] Plan Plan Number Plan Address Plan Phone [employer] [address] / [place] [address] None None : No Consent/Resources Patient declined intervention and resources. DEEDEE met with Pt who stated they was drinking today and black out. Pt is in morning due of of brother, and stated they used alcohol to cope with there brother . DEEDEE and Pt discussed healthy coping strategies. DEEDEE [employer] business card for Pt can follow up. The substance use navigator assessment of the patient is currently Complete Jarret Mohamud documented in this encounter [facility] 06-07-2024 History and physical note Images from the original note were not included. [facility] Department of Surgery Division of Trauma Surgery, Acute Care Surgery, Critical Care, and Abrasm TRAUMA SURGERY HISTORY AND PHYSICAL Rebazen Gregory [id number] BASIC INJURY INFORMATION: Level of activation: Category 2 Trauma Mode of transport: Ambulance: [facility] Mechanism of injury: Fall from ground level Complicating features: Not applicable Protective measures: Not applicable Date of Injury: 10:31 Time of Injury: Patient does not recall Patient origin: Transfer from outside facility HISTORY OF PRESENT INJURY: Reba Gregory is a 68 year old female brought in by EMS following fall from ground level. Patient states she attended her brothers today after which she went to a bar and consumed too much ethanol. Upon returning home she states she blacked out from her alcohol intoxication and doesn't remember falling. Upon falling, called EMS who then transported patient to [place] and subsequently to [facility]. Presents with 12cm scalp laceration over LT cranium and LT 5th finger injury. Loss of consciousness: Unknown Initial interventions: None Hemodynamic status in ED: None applicable PRIMARY SURVEY: Airway: Intact Breathing: Normal Breath Sounds: Breath sounds equal bilaterally. Circulation: Pulses: Normal Skin: Warm Disability: Pupils: PERRL GCS: Best Eyes: 4 Best Verbal: 5 Best Motor: 6 Total: 15 SECONDARY SURVEY: Vitals: BP 119/63 Pulse 63 Temp 97.1 F (36.2 C) Resp 15 SpO2 93% Neurologic: Alert and oriented, appropriate, moves all extremities. HEENT: Head: Obvious deformity, described as: scalp laceration Eyes: PERRLA, conjunctiva/corneas without lesions. Ears: No hemotympanum Nose: No bloody drainage. Throat: Not examined. Neck: No midline tenderness, lacerations, or wounds Chest: No crepitus or pain with palpation; no abrasions or contusions; no gross deformities Pulmonary: Breath sounds clear, symmetrical; no wheezes, rales, or consolidation Cardiovascular: Pulses: Radial: R: normal/ L: normal and DP/PT: R: normal/ L: normal Abdomen: Non-distended; non-tender to palpation; no scars, lacerations, or contusions Rectal: Not performed. Pelvis/Perineum: Pelvis is stable to palpation Musculoskeletal: Back/Spine: Tender upon palpation of lower thoracic spine Extremities: ROM normal, no gross deformities or abnormalities Additional exam findings: Concern for intoxication PAST MEDICAL HISTORY: Congestive heart failure (CHF), Hypertension (HTN), and Other: Roumathoid arthritis PAST SURGICAL HISTORY: LT Knee replacement PRE-ADMISSION MEDICATIONS: No current facility-administered medications on file prior to encounter. No current outpatient medications on file prior to encounter. Anti-platelet use: Yes: Plavix (name) and unknown (date of last use) Anti-coagulant use: No ALLERGIES: Plaquinil: Hives SOCIAL HISTORY: Et-OH use Living status: Home Primary language: Guinean Functional status: Independent Impairments: None Assistive Devices Used: None FAMILY HISTORY: No family history on file. REVIEW OF SYSTEMS: Constitutional: Negative Eyes: Negative Ears/Nose/Mouth/Throat: Positive Respiratory: Negative Cardiovascular: Negative Gastrointestinal: Negative Genitourinary: Negative Musculoskeletal: Positive Neurologic: Negative Psychiatric: Negative Skin/Breast: Positive Endocrine: Negative Rheumatologic: Negative Allergic/Immunologic: Negative Significant positives: MSK BASIC LABS Results for orders placed or performed during the hospital encounter of 06/07/24 ETHANOL, SERUM Collection Time: 06/07/24 10:26 PM Result Value Ref Range Ethanol 194 (H) None Detected mg/dL PARTIAL THROMBOPLASTIN TIME Collection Time: 06/07/24 10:26 PM Result Value Ref Range aPTT 25 25 - 37 sec BASIC METABOLIC PANEL Collection Time: 06/07/24 10:26 PM Result Value Ref Range Glucose 92 74 - 109 mg/dL Sodium 140 136 - 145 mmol/L Potassium 4.1 3.5 - 5.0 mmol/L Carbon Dioxide 22 21 - 31 mmol/L Chloride 105 98 - 107 mmol/L Blood Urea Nitrogen 30 (H) 7 - 25 mg/dL Creatinine 1.33 (H) 0.60 - 1.20 mg/dL Calcium 9.6 8.6 - 10.3 mg/dL Anion Gap 17 10 - 20 Estimated GFR (CKD-EPI) 43 (L) >=60 mL/min/1.73sqm PROTHROMBIN TIME AND INR Collection Time: 06/07/24 10:26 PM Result Value Ref Range Protime 11.6 9.7 - 12.9 sec INR 1.04 0.90 - 1.10 HIV1 HIV2 AGAB SCRN Collection Time: 06/07/24 10:26 PM Result Value Ref Range HIV Ag-Ab Screen Non-Reactive Non-Reactive LACTIC ACID Collection Time: 06/07/24 10:26 PM Result Value Ref Range Lactate 3.3 (HH) 0.5 - 1.6 mmol/L TYPE AND SCREEN Collection Time: 06/07/24 10:26 PM Result Value Ref Range ABO Rh Type A Positive Ab Screen Interp Negative ABO Rh/Carlee/TXRX History No Previous Results CBC WITH DIFFERENTIAL Collection Time: 06/07/24 10:26 PM Result Value Ref Range WBC 11.1 4.5 - 11.5 K/uL RBC 4.08 4.00 - 5.20 M/uL Hemoglobin 12.1 12.0 - 15.0 g/dL Hematocrit 37.7 36.0 - 46.0 % MCV 93 80 - 100 fL MCH 29.8 26.0 - 34.0 pg MCHC 32.2 32.0 - 35.9 g/dL Platelet 191 150 - 400 K/uL RDW-CV 13.7 11.5 - 14.5 % MPV 10.9 7.5 - 11.2 fL Neutrophils 68.7 31.0 - 76.0 % Neutrophil # 7.63 1.50 - 8.00 K/uL Lymphocytes 19.6 (L) 24.0 - 44.0 % Lymphocytes # 2.17 1.00 - 4.80 K/uL Monocytes 10.0 2.0 - 11.0 % Monocyte # 1.11 (H) 0.20 - 1.00 K/uL Eosinophil 1.5 0.1 - 4.0 % Eosinophil # 0.17 0.00 - 0.70 K/uL Basophils 0.3 <=1.9 % Basophil # 0.03 0.00 - 0.20 K/uL MDW [address] T-SPINE W/O CONTRAST Collection Time: 06/07/24 11:04 PM Result Value Ref Range CTDI VOL 35.5 (mGy) PHANTOM TYPE IEC Body Dosimetry Phantom CT DLP 979.94 (mGycm) CT Series Neck,Neck,Neck,Neck RADIOLOGY: Results for orders placed during the hospital encounter of 06/07/24 CT head, CT facial bones w/o con: - No acute intracranial process - A very large left frontal scalp hematoma - No acute maxillofacial fracture CT cervical spine w/o con: - no acute fracture or posttraumatic malalignment is shown - Reversal of cervical lordosis is present - 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 Information might be incomplete. Impression : No left hand fracture or dislocation is identified. There are no abnormal soft tissue calcifications. Mild scattered degenerative changes, stress of the first CMC. Radiopaque ring overlying the proximal fourth digit. Pulse oximeter overlying the distal second digit. Left hand MACRO: None ASSESSMENT: Reba Colt is a 68 year old female who presents from OSH after a fall earlier today. Hit her head with corresponding 12cm scalp laceration as well as LT 5th finger injury. Imaging demonstrate no acute injuries requiring further workup or intervention. Scalp laceration repaired with 3-0 vicryl, forehead up to hairline repaired with 5-0 fast gut and scalp posterior to hairline repaired with 3-0 chromic. Bacitracin ointment applied to repaired wound site INJURIES: - Scalp laceration - LT 5th finger sprain PLAN: - Follow up as outpatient as needed Tertiary: None indicated Wound Care Instructions: Instructions: Wash with soap and water daily staring on 06/10. Apply bacitracin ointment for 5 days after shower to wound. Ralph[ wound area dry. Antibiotics: Discharge antibiotics indicated: Bacitracin ointment Final ED disposition: Discharge from ED Does patient have a traumatic brain injury? NO Patient discussed with Attending Trauma Surgeon, Dr. Contreras. Miliva Rodriguez MD Teaching Physician Note: I saw and evaluated the patient. I personally obtained the herrera and critical portions of the history and physical exam. I reviewed the trainee's documentation and discussed the patient with the trainee. I agree with the trainee's medical decision making as documented in the trainee's note unless otherwise noted by me. This note represents our aggregated findings and impressions. Keila Contreras MD [facility] Division of Trauma, Critical Care, Abrams, and Emergency General Surgery Department of Surgery [facility] [phone] [facility] Work Phone: 06-07-2024 History and physical note Images from the original note were not included. [facility] Department of Surgery Division of Trauma Surgery, Acute Care Surgery, Critical Care, and Abrams TRAUMA SURGERY HISTORY AND PHYSICAL Reba Gregory [id number] BASIC INJURY INFORMATION: Level of activation: Category 2 Trauma Mode of transport: Ambulance: [facility] Mechanism of injury: Fall from ground level Complicating features: Not applicable Protective measures: Not applicable Date of Injury: 10:31 Time of Injury: Patient does not recall Patient origin: Transfer from outside facility HISTORY OF PRESENT INJURY: Reba Gregory is a 68 year old female brought in by EMS following fall from ground level. Patient states she attended her brothers today after which she went to a bar and consumed too much ethanol. Upon returning home she states she blacked out from her alcohol intoxication and doesn't remember falling. Upon falling, called EMS who then transported patient to [place] and subsequently to [facility]. Presents with 12cm scalp laceration over LT cranium and LT 5th finger injury. Loss of consciousness: Unknown Initial interventions: None Hemodynamic status in ED: None applicable PRIMARY SURVEY: Airway: Intact Breathing: Normal Breath Sounds: Breath sounds equal bilaterally. Circulation: Pulses: Normal Skin: Warm Disability: Pupils: PERRL GCS: Best Eyes: 4 Best Verbal: 5 Best Motor: 6 Total: 15 SECONDARY SURVEY: Vitals: BP 119/63 Pulse 63 Temp 97.1 F (36.2 C) Resp 15 SpO2 93% Neurologic: Alert and oriented, appropriate, moves all extremities. HEENT: Head: Obvious deformity, described as: scalp laceration Eyes: PERRLA, conjunctiva/corneas without lesions. Ears: No hemotympanum Nose: No bloody drainage. Throat: Not examined. Neck: No midline tenderness, lacerations, or wounds Chest: No crepitus or pain with palpation; no abrasions or contusions; no gross deformities Pulmonary: Breath sounds clear, symmetrical; no wheezes, rales, or consolidation Cardiovascular: Pulses: Radial: R: normal/ L: normal and DP/PT: R: normal/ L: normal Abdomen: Non-distended; non-tender to palpation; no scars, lacerations, or contusions Rectal: Not performed. Pelvis/Perineum: Pelvis is stable to palpation Musculoskeletal: Back/Spine: Tender upon palpation of lower thoracic spine Extremities: ROM normal, no gross deformities or abnormalities Additional exam findings: Concern for intoxication PAST MEDICAL HISTORY: Congestive heart failure (CHF), Hypertension (HTN), and Other: Roumathoid arthritis PAST SURGICAL HISTORY: LT Knee replacement PRE-ADMISSION MEDICATIONS: No current facility-administered medications on file prior to encounter. No current outpatient medications on file prior to encounter. Anti-platelet use: Yes: Plavix (name) and unknown (date of last use) Anti-coagulant use: No ALLERGIES: Plaquinil: Hives SOCIAL HISTORY: Et-OH use Living status: Home Primary language: Guinean Functional status: Independent Impairments: None Assistive Devices Used: None FAMILY HISTORY: No family history on file. REVIEW OF SYSTEMS: Constitutional: Negative Eyes: Negative Ears/Nose/Mouth/Throat: Positive Respiratory: Negative Cardiovascular: Negative Gastrointestinal: Negative Genitourinary: Negative Musculoskeletal: Positive Neurologic: Negative Psychiatric: Negative Skin/Breast: Positive Endocrine: Negative Rheumatologic: Negative Allergic/Immunologic: Negative Significant positives: MSK BASIC LABS Results for orders placed or performed during the hospital encounter of 06/07/24 ETHANOL, SERUM Collection Time: 06/07/24 10:26 PM Result Value Ref Range Ethanol 194 (H) None Detected mg/dL PARTIAL THROMBOPLASTIN TIME Collection Time: 06/07/24 10:26 PM Result Value Ref Range aPTT 25 25 - 37 sec BASIC METABOLIC PANEL Collection Time: 06/07/24 10:26 PM Result Value Ref Range Glucose 92 74 - 109 mg/dL Sodium 140 136 - 145 mmol/L Potassium 4.1 3.5 - 5.0 mmol/L Carbon Dioxide 22 21 - 31 mmol/L Chloride 105 98 - 107 mmol/L Blood Urea Nitrogen 30 (H) 7 - 25 mg/dL Creatinine 1.33 (H) 0.60 - 1.20 mg/dL Calcium 9.6 8.6 - 10.3 mg/dL Anion Gap 17 10 - 20 Estimated GFR (CKD-EPI) 43 (L) >=60 mL/min/1.73sqm PROTHROMBIN TIME AND INR Collection Time: 06/07/24 10:26 PM Result Value Ref Range Protime 11.6 9.7 - 12.9 sec INR 1.04 0.90 - 1.10 HIV1 HIV2 AGAB SCRN Collection Time: 06/07/24 10:26 PM Result Value Ref Range HIV Ag-Ab Screen Non-Reactive Non-Reactive LACTIC ACID Collection Time: 06/07/24 10:26 PM Result Value Ref Range Lactate 3.3 (HH) 0.5 - 1.6 mmol/L TYPE AND SCREEN Collection Time: 06/07/24 10:26 PM Result Value Ref Range ABO Rh Type A Positive Ab Screen Interp Negative ABO Rh/Carlee/TXRX History No Previous Results CBC WITH DIFFERENTIAL Collection Time: 06/07/24 10:26 PM Result Value Ref Range WBC 11.1 4.5 - 11.5 K/uL RBC 4.08 4.00 - 5.20 M/uL Hemoglobin 12.1 12.0 - 15.0 g/dL Hematocrit 37.7 36.0 - 46.0 % MCV 93 80 - 100 fL MCH 29.8 26.0 - 34.0 pg MCHC 32.2 32.0 - 35.9 g/dL Platelet 191 150 - 400 K/uL RDW-CV 13.7 11.5 - 14.5 % MPV 10.9 7.5 - 11.2 fL Neutrophils 68.7 31.0 - 76.0 % Neutrophil # 7.63 1.50 - 8.00 K/uL Lymphocytes 19.6 (L) 24.0 - 44.0 % Lymphocytes # 2.17 1.00 - 4.80 K/uL Monocytes 10.0 2.0 - 11.0 % Monocyte # 1.11 (H) 0.20 - 1.00 K/uL Eosinophil 1.5 0.1 - 4.0 % Eosinophil # 0.17 0.00 - 0.70 K/uL Basophils 0.3 <=1.9 % Basophil # 0.03 0.00 - 0.20 K/uL MDW [address] T-SPINE W/O CONTRAST Collection Time: 06/07/24 11:04 PM Result Value Ref Range CTDI VOL 35.5 (mGy) PHANTOM TYPE IEC Body Dosimetry Phantom CT DLP 979.94 (mGycm) CT Series Neck,Neck,Neck,Neck RADIOLOGY: Results for orders placed during the hospital encounter of 06/07/24 CT head, CT facial bones w/o con: - No acute intracranial process - A very large left frontal scalp hematoma - No acute maxillofacial fracture CT cervical spine w/o con: - no acute fracture or posttraumatic malalignment is shown - Reversal of cervical lordosis is present - 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 Information might be incomplete. Impression : No left hand fracture or dislocation is identified. There are no abnormal soft tissue calcifications. Mild scattered degenerative changes, stress of the first CMC. Radiopaque ring overlying the proximal fourth digit. Pulse oximeter overlying the distal second digit. Left hand MACRO: None ASSESSMENT: Reba Gregory is a 68 year old female who presents from OSH after a fall earlier today. Hit her head with corresponding 12cm scalp laceration as well as LT 5th finger injury. Imaging demonstrate no acute injuries requiring further workup or intervention. Scalp laceration repaired with 3-0 vicryl, forehead up to hairline repaired with 5-0 fast gut and scalp posterior to hairline repaired with 3-0 chromic. Bacitracin ointment applied to repaired wound site INJURIES: - Scalp laceration - LT 5th finger sprain PLAN: - Follow up as outpatient as needed Tertiary: None indicated Wound Care Instructions: Instructions: Wash with soap and water daily staring on 06/10. Apply bacitracin ointment for 5 days after shower to wound. Ralph[ wound area dry. Antibiotics: Discharge antibiotics indicated: Bacitracin ointment Final ED disposition: Discharge from ED Does patient have a traumatic brain injury? NO Patient discussed with Attending Trauma Surgeon, Dr. Contreras. Milvia Rodriguez MD Teaching Physician Note: I saw and evaluated the patient. I personally obtained the herrera and critical portions of the history and physical exam. I reviewed the trainee's documentation and discussed the patient with the trainee. I agree with the trainee's medical decision making as documented in the trainee's note unless otherwise noted by me. This note represents our aggregated findings and impressions. Keila Contreras MD [facility] Division of Trauma, Critical Care, Abrams, and Emergency General Surgery Department of Surgery [facility] [phone] documented in this encounter [facility] 06-07-2024 Emergency department Note 68 y, f, fall from standing. +thinners +ETOH +head lac Prehospital Medications: none documented in this encounter [facility] 06-07-2024 Emergency department Triage note 68 y, f, fall from standing. +thinners +ETOH +head lac [facility] 06-07-2024 Emergency department Triage note Prehospital Medications: none [facility] 02-29-2024 Evaluation note Authored April 28, 2024 [...] Our exercise program was recommended with our garnett mechanic/obesity exercise group. Handout given. Our free weekly [...] and benefits of prescribed meds discussed. Initial [id number] interview/evaluation. The patient was counseled in detail on the options for weight loss in an individual setting. [ ] minutes was spent caring for the patient, counseling/educating patient on the options for the treatment of obesity and related healthcare issues. The program's treatment goals were reviewed with the patient. Each aspect of the program was discussed with the patient. [facility] Work Phone: [phone]) 189-498701-09-2024 Evaluation note* Encounter Date Diagnosis Assessment Notes [...] impact gut health (D) Probiotics and Prebiotics [employer] Other 01-02-2024 Evaluation note* Encounter Date Diagnosis Assessment Notes Treatment Notes Treatment Clinical Notes Sep, Obesity, unspecified classification, unspecified obesity type, unspecified whether serious comorbidity present (ICD-10 - E66.9) Sep, BMI 33.0-33.9,adult (ICD-10 - Z68.33) Sep, Other Summary of Visi t: (A) Acute vs Chronic Inflammation (B) Inflammation's connection to chronic disease (C) Food's relationship to inflammation (D) Anti Inflammatory foods [employer] Other 2023 Evaluation note* Encounter Date Diagnosis Assessment Notes Treatment Notes Treatment Clinical Notes Aug, Cervical spondylosis (ICD-10 - M47.812) [facility] Other 12-28-2023 Evaluation note* Encounter Date Diagnosis [...] index [BMI] 35.0-35.9, adult (ICD-10 - Z68.35) [employer] Other 12-07-2023 Evaluation note* Encounter Date Diagnosis [...] Patient without side effect-A1c 5.9% February 2023 -[employer] membership, working with equestrian trainer -Follow up in clinic in 12 weeks -Patient reports highest A1c of 6.7% subjectivelyThis note was created with voice recognition software. Please excuse errors in arcade technician. Aug, Dietary surveillance and counseling (ICD-10 - [...] 6.7% subjectivelyContinue with Ozempic. Denies side effects [employer] Other 12-05-2023 Evaluation note* Encounter Date Diagnosis [...] needed. Notify office w/ any s/s infection [employer] Other 11-21-2023 Evaluation note* Encounter Date Diagnosis [...] variety means for them and tip sharing [employer] Other 10-24-2023 Evaluation note* Encounter Date Diagnosis [...] patient set personal goal using given handout. [employer] Other 10-04-2023 Evaluation note* Encounter Date Diagnosis [...] 2 mg once weekly.-A1c 5.9% February 2023 -[employer] membership, working with equestrian trainer -Follow up in clinic in 8 weeks -Patient reports highest A1c of 6.7% subjectivelyThis note was created with voice recognition software. Please excuse errors in arcade technician. Jun, Dietary surveillance and counseling (ICD-10 - [...] 6.7% subjectivelyContinue with Ozempic. Denies side effects [employer] Other 09-27-2023 Evaluation note* Encounter Date Diagnosis [...] [BMI ] 35.0-35.9, adult (ICD-10 - Z68.35) [employer] Other 09-19-2023 Evaluation note* Encounter Date Diagnosis [...] fat, etc.) (D) Identifying whole grain products [employer] Other 09-12-2023 Evaluation note* Encounter Date Diagnosis Assessment Notes Treatment Notes Treatment Clinical Notes May, Mucopurulent chronic bronchitis (ICD-10 - J41.1) [employer] Other 08-30-2023 Evaluation note* Encounter Date Diagnosis [...] Patient set the following goals: NOT REVIEWED [employer] Other 08-23-2023 Evaluation note* Encounter Date Diagnosis [...] titrate up as tolerated-A1c 5.9% February 2023 -[employer] membership -Follow up in clinic in 6 weeks -Patient reports highest A1c of 6.7% subjectivelyThis note was created with voice recognition software. Please excuse errors in arcade technician. Apr, Dietary surveillance and counseling (ICD-10 - [...] with the patient, and documenting clinical information. [employer] Other 08-12-2023 Evaluation note* Encounter Date Diagnosis Assessment Notes Treatment Notes Treatment Clinical Notes Apr, PSVT (paroxysmal supraventricular tachycardia) (ICD-10 - I47.1) [employer] Other 08-01-2023 Evaluation note* Encounter Date Diagnosis [...] PSVT (paroxysmal supraventricular tachycardia) (ICD-10 - I47.1) [employer] Other 07-26-2023 Evaluation note* Encounter Date Diagnosis [...] voice recognition software. Please excuse errors in arcade technician. Mar, Dietary surveillance and counseling (ICD-10 - [...] with the patient, and documenting clinical information. [employer] Other 06-22-2023 Evaluation note* Encounter Date Diagnosis [...] by [ ] under direct supervision of Dr. [ ]. Document reviewed and amended by [...] - Z85.3) B/L mastectomy. No s/s recurrence [employer] Other 06-21-2023 Evaluation note* Encounter Date Diagnosis [...] tolerated the injection well without adverse reaction. [employer] Other 06-07-2023 Evaluation note* Encounter Date Diagnosis Assessment Notes Treatment Notes Treatment Clinical Notes Feb, Aftercare following joint replacement surgery (ICD-10 - Z47.1) Feb, Presence of left artificial knee joint (ICD-10 - Z96.652) Feb, Other [facility] L TKA at [facility] on 03/02/2022 Happy with surgical result Follow up as needed with standing AP and lateral xrays of the left knee Patient instructed to call with any questions or concerns. [employer] Other 03-17-2023 Evaluation note* Encounter Date Diagnosis Assessment Notes Treatment Notes Treatment Clinical Notes Nov, Stage 3a chronic kidney disease (ICD-10 - N18.31) [employer] Other 03-15-2023 Evaluation note* Encounter Date Diagnosis [...] appears to be in remission Restarting biologics. [employer] Other 02-15-2023 Evaluation note* Encounter Date Diagnosis [...] dorsal aspect of her right ring finger. [employer] Other 02-02-2023 Evaluation note* Encounter Date Diagnosis [...] plan. All of her questions were addressed. [employer] Other 01-25-2023 Evaluation note* Encounter Date Diagnosis Assessment Notes Treatment Notes Treatment Clinical Notes Sep, Lesion of finger (ICD-10 - L98.9) Patient is progressing well. Continue local wound care as previously instructed with neosporin. Continue blood thinner as prescribed. Continue to follow up with vascular for blood flow tests and rheumatology. Call with questions/concerns. Sep, Ischemia (ICD-10 - I99.8) [facility] Other 01-20-2023 Evaluation note* Encounter Date Diagnosis [...] otherwise completely resolved. Etiology remains a mystery [facility] Other 01-19-2023 Evaluation note* Encounter Date Diagnosis [...] thrombus. I am recommending she see a shampooer for the severe calcification identified on her [...] specified soft tissue disorders (ICD-10 - M79.89) [employer] Other 01-16-2023 Evaluation note* Encounter Date Diagnosis Assessment Notes Treatment Notes Treatment Clinical Notes Sep, Essential (primary) hypertension (ICD-10 - I10) [employer] Other 01-11-2023 Evaluation note* Encounter Date Diagnosis [...] treatment plan. Sep, Ischemia (ICD-10 - I99.8) [employer] Other 01-09-2023 Evaluation note* Encounter Date Diagnosis [...] prior to bedtime. Weight loss. Continue PPI [employer] Other 01-05-2023 Evaluation note* Encounter Date Diagnosis [...] digits o f hand (ICD-10 - I99.8) [employer] Other 09-15-2022 Evaluation note* Encounter Date Diagnosis Assessment Notes Treatment Notes Treatment Clinical Notes May, Aftercare following joint replacement surgery (ICD-10 - Z47.1) May, Presence of left artificial knee joint (ICD-10 - Z96.652) May, Status post left knee replacement (ICD-10 - Z96.652) May, Other [facility] L TKA at [facility] on 03/02/2022 Doing well. As I explained to her I am comfortable with her restarting her rheumatological medications if her and her safety engineer pressure vessels feel like she needs them. As we [...] to call with any questions or concerns. [employer] Other 08-04-2022 Evaluation note* Encounter Date Diagnosis Assessment Notes Treatment Notes Treatment Clinical Notes Apr, Aftercare following joint replacement surgery (ICD-10 - Z47.1) Apr, Presence of left artificial knee joint (ICD-10 - Z96.652) Apr, Status post left knee replacement (ICD-10 - Z96.652) Apr, Other [facility] TKA at [facility] on 03/02/2022 Doing well. No concerns for incision at this time. I did inform the patient that I be comfortable with her restarting her rheumatoid medications at this point in the postoperative period. However, the patient would like to wait until she comes back from [place]. I think that is perfectly appropriate. Patient may continue activities as tolerated. She recently finished PT and is not planning to continue it at this time. Continue taking emxm-[id number] anti-inflammatories as needed for assistance with swelling and pain associated with the operative extremity. Follow-up in 6 weeks for repeat examination and long standing x-rays. [facility] Other 07-14-2022 Evaluation note* Encounter Date Diagnosis Assessment Notes Treatment Notes Treatment Clinical Notes Mar, Aftercare following joint replacement surgery (ICD-10 - Z47.1) Mar, Presence of left artificial knee joint (ICD-10 - Z96.652) Mar, Status post left knee replacement (ICD-10 - Z96.652) Mar, Other [facility] TKA at [facility] on 03/02/2022 Doing really well. Zipline removed today. As we had discussed preoperatively and as her safety engineer pressure vessels had recommended, we will plan for her [...] 3 view x-rays of the left knee. [employer] Other 07-06-2022 Evaluation note* Encounter Date Diagnosis Assessment Notes Treatment Notes Treatment Clinical Notes Mar, Aftercare following joint replacement surgery (ICD-10 - Z47.1) [employer] Other 07-06-2022 Evaluation note* Encounter Date Diagnosis Assessment Notes Treatment Notes Treatment Clinical Notes Mar, Aftercare following joint replacement surgery (ICD-10 - Z47.1) Mar, Presence of left artificial knee joint (ICD-10 - Z96.652) Mar, Status post left knee replacement (ICD-10 - Z96.652) Mar, Other [facility] L TKA at [facility] on 03/02/2022 Doing well. Given her history [...] 3 view x-rays of the left knee. [facility] Other 06-17-2022 Evaluation note* Encounter Date Diagnosis Assessment Notes Treatment Notes Treatment Clinical Notes Feb, Arthritis of left knee (ICD-10 - M17.12) [employer] Other 06-10-2022 Evaluation note* Encounter Date Diagnosis [...] patient could proceed with surgery safely. The event services manager was vital for surgery timing and [...] plans. 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 Left TKA Home Medications - DVT prophylaxis: Aspirin - NSAID: Celebrex versus prednisone 5 mg x 10-day postop. She tells me she has a history of CKD but we will await her creatinine level from [facility] before making a final decision on NSAID usage perioperatively. - Disposition: Inpatient Joints Meeting Checklist - Pharmacy: [facility] to bed - Approach/Technique: VANESSA - Implants: [...] would be important regarding her immunosuppressant medications. Juan has been recommended by [facility]/Rheumatology guidelines to schedule surgery during week 5 or week 9 after the last dose. In her case, she has been off of it for 3 months. Furthermore, these guidelines recommend continued leflunomide use perioperatively. I discussed these recommendations with the patient and we are going to proceed with surgery on 03/02. [employer] Other 03-10-2022 Evaluation note* Encounter Date Diagnosis Assessment Notes Treatment Notes Treatment Clinical Notes Nov, Acute pain of left knee (ICD-10 - M25.562) Nov, Other osteoporosis without current pathological fracture (ICD-10 - M81.8) Nov, Other intermediate (current) drug therapy (ICD-10 - Z79.899) Nov, [...] or absent clearances could delay their surgery. Herrera points to her surgery will be the [...] consider doing that with leflunomide as well. [employer] Other Evaluation noteNo InformationNortGe[facility] [employer] Other Evaluation note* Diagnosis Onset Date Resolution Status COPD (chronic obstructive pulmonary disease) acute High cholesterol acute Hypertension acute Sleep apnea with use of cont inuous positive airway pressure (CPAP) acute Status post left knee replacement acute [facility] Work Phone: Evaluation noteNo assessment information available [facility] Work Phone: Evaluation note* Diagnosis Onset Date Resolution Status Dietary surveillance and counseling acute Exercise counseling acute Obesity, Class II, BMI 35-39.9 acute Type 2 diabetes mellitus acu [facility] Work Phone: Evaluation note* Diagnosis Onset Date Resolution Status Dietary surveillance and counseling acute Exercise counseling acute Chronic bronchitis, mucopurulent acute Lumbar spondylosis acute Mixed hyperlipidemia acute Obesity acute Primary hypertension acute PSVT (paroxysmal supraventricular tachycardia) acute Type 2 diabetes mellitus with hyperglycemia acute Neck muscle spasm acute Neck pain acute [facility] Work Phone: Evaluation note* Diagnosis Onset Date Resolution Status Chronic bronchitis, mucopurulent acute Lumbar spondylosis acute Mixed hyperlipidemia acute Obesity acute Primary hypertension acute PSVT (paroxysmal supraventricular tachycardia) acute Type 2 diabetes mellitus with hyperglycemia acute Neck muscle spasm acute Neck pain acute [facility] Work Phone: Evaluation note* Diagnosis Onset Date Resolution Status Chronic bronchitis, mucopurulent acute Lumbar spondylosis acute Mixed hyperlipidemia acute Obesity acute Primary hypertension acute PSVT (paroxysmal supraventricular tachycardia) acute Type 2 diabetes mellitus with hyperglycemia acute Neck muscle spasm acute Neck pain acute Dietary surveillance and counseling acute Exercise counseling acute [facility] Work Phone: Evaluation note* Diagnosis Onset Date Resolution Status Neck muscle spasm acute Neck pain acute Dietary surveillance and counseling acute Exercise counseling acute Chronic bronchitis, mucopurulent acute Lumbar spondylosis acute Mixed hyperlipidemia acute Obesity acute Primary hypertension acute PSVT (paroxysmal supraventricular tachycardia) acute Type 2 diabetes mellitus with hyperglycemia acute [facility] Work Phone: Evaluation note* Diagnosis Laceration of scalp, initial encounter- Primary [facility] Type Description Date [...] History Bilateral Myringotomy and Tube Placement 2012 [facility] Other [facility] general Narrative - Reported* Type Description Date [...] Arthroscopy 202 2 Hospitalization History See Above [facility] Other History general Narrative - Reported* Type [...] Augmentation 1 981 Surgical History Complete hysterectomy 1996 Surgical History bilateral carpal tunnel Release 2003 Surgical History Bilateral Mastompexy 2006 Surgical History [...] Arthroplasty 20 22 Hospitalization History See Above [facility] Other History general Narrative - Reported* Type [...] Placement 2012 Surgical History Arthroscopic meniscus repair 19 Surgical History Ganglionectomy Left Wrist 2020 Surgical History Left Total Knee Arthroplasty Hospitalization History See Above [facility] Reason for referral (narrative)* Reason Referral for fractur e of proximal phalanx of 2nd and 3rd toe of the right foot. Diagnosis 1 Closed nondisplaced fracture of proximal phalanx of lesser toe of right foot, initial encounter (S92.546A) Referral Organization [facility] Dali granados Referring Provider First Name Jonathan Referring Provider Last Name Earl Referring Provider Specialty Internal Me dicine Referred Organization [facility] Referred Provider Donta Elias Referred Address [address], [place],[address] Referred Provider Specialty Podiatry - S urgical Chiropody Referral Priority Routine General Notes Patient being referr ed for evaluation and treatment of an acute nondisplaced fracture of the proximal phalanx of the 2nd and 3rd toe of the right foot. There is mention of extension into the joint space [facility] Other Chief Complaint and Reason for Visit [...] FOR VISIT (unrecogniz ed section and content) Reason Comments Trauma/complex Medical Situation Care Teams (unrecognized sec tion and content) [...] End: January 05, 2024 Carolyn Lees APRN SHR[employer] GROWER-C Attending Provider Act toñito Start: January 05, [...] Status: Inactive Member Role Status Dates Jonathan Ball , DO Primary Care Provide r, Attending Provider Active Start: December 09, 2023 End: December 09, 2023 Team Status: Active Member Role Status Dates Jonathan Smith DO Primary Care Provide r, Attending Provider Active Start: November 16, 2023 Team Status: Inactive Member Role Status Dates Jonathan Smith DO Primary Care Provider Active Start: November 17, 2023 End: November 17, 2023 Olayinka Ramos , DO Attending Provider Active St art: November 17, 2023 End: November 17, 2023 Team Status: Inactive Member Role Status Dates Jonathan Smith DO Primary Care Provider Active Nabor Nelson II, MD Attending Provider Active Deidre Moore , MARKUS Other Provider Active Vaishali Howell , RN Other Provider Active Maria E Regalado , RN Other Provider Active Ebony Omalley , RN Other Provider Active Radha Presley , MARKUS Other Provider Active Melvi Gonzalez , MARKUS Other Provider Active Susanne Best , MARKUS Other Provider Active Letty Hurtado MD Other Provider Active Javier Nolen MD Other Provider Active Avis Herndon , OIL PROSPECTING OBSERVER Other Provider Active Nohemy Louis , DO [...] MD Other Provider Active Teagan Fay , SHRUB GROWER-C Other Provider Active Chung Mary MD Other [...] Status Dates Massiel Fitt - Refer , [facility] Attending Provider Active Start: September 14, 2023 End: September 14, 2023 Team Status: Inactive Member Role Status Dates Massiel Fitt - Refer , [facility] Attending Provider Active Start: September 21, 2023 End: September 21, 2023 Team Status: Active Member Role Status Dates Jonathan Smith , DO Primary Care Provider Active Start: September 21, 2023 Olayinka Ramos DO Attending Provider Active St art: September 21, 2023 Goals (unrecognized section and content) Goals may be documented in a n alternate section INFORMATION SOURCE (unrecogn ized section and content) DATE CREATED AUTHOR 11/14/2022 [facility] DATE CREATED AUTHOR AUTHOR'S ORGANIZ ATION [facility]/25/2023 [facility] DATE CREATED AUTHOR AUTHOR'S ORGANIZ ATION 01/28/2024 [facility] DATE CREATED AUTHOR AUTHOR'S ORGANIZ ATION 02/14/2024 [facility] Scheduled Active and Recently Administ ered Medications (unrecognized section and content) Medication Order 06/06/2024 06/07/2024 06/08/2024 lidocaine-epinephrine (XYLOCAINE) 1 %-[id number] injection SOLN (COMPLETED) 20 mL, Injection, ONCE, 1 dose, On Linda 06/08/24 at 0013 0013 (Given by Javy mcpherson During Procedure - Provider: Radha Rose, RN) PRN Medication Order 06/06/2024 06/07/2024 06/08/2024 sodium chloride 0.9 % iv bolus (COMPLETED) Intravenous, PRN CONTINUOUS, Starting on Wed06/07/24 at 2219, Until Wed06/07/24 at 2219 2219 (IV New Bag - Provider: Arabella Nation RN) 0032 (IV Stop - Provider: Michael Heath RN) FOR RECORDS PERTAINING TO PATIENTS WHO ARE [...] BE BASED ON THE PRIMARY CLINICAL RECORDS. [facility] [employer] provides no warranty or guarantee of the accuracy or completeness of information in this document.
--- NOTE | 2024-06-08 17:20 | ED.GENADUL1 ---
HPI HPI - General Adult General Chief complaint: Nausea/Vomiting/Diarrhea Stated complaint: Nausea/Vomiting Time Seen by Provider: 06/08/24 17:07 Source: patient Mode of arrival: walk-in Limitations: no limitations History of Present Illness HPI narrative: 68-year-old female presented for nausea and vomiting. She had hit her head yesterday and sustained a large laceration. She was seen here and then transferred to a hospital in [place]. The patient states they closed her laceration there and she was discharged home about 4 AM, about 13 hours ago. She states she has been nauseous and has not been able to eat or drink anything. No new injury. Related Data Home Medications ?Medication ?Instructions ?Recorded ?Confirmed albuterol sulfate 90 mcg/actuation 2 puff inhalation Q4H PRN 06/07/24 06/07/24 aerosol inhaler shortness of breath or wheezing amlodipine 5 mg tablet 5 mg PO BID 06/07/24 06/07/24 atorvastatin 40 mg tablet 40 mg PO QPM 06/07/24 06/07/24 clopidogrel 75 mg tablet 75 mg PO DAILY 06/07/24 06/07/24 empagliflozin 10 mg tablet 10 mg PO QAM 06/07/24 06/07/24 (Jardiance) fluticasone propionate 50 2 spray intranasal DAILY 06/07/24 06/07/24 mcg/actuation nasal spray,suspension leflunomide 20 mg tablet 20 mg PO .every other day 06/07/24 06/07/24 lisinopril 20 mg tablet 20 mg PO BID 06/07/24 06/07/24 metoprolol succinate 100 mg 100 mg PO DAILY 06/07/24 06/07/24 tablet,extended release 24 hr pantoprazole 40 mg tablet,delayed 40 mg PO DAILY 06/07/24 06/07/24 release semaglutide 2 mg/dose (8 mg/3 mL) 2 mg subcut QWEEK 06/07/24 06/07/24 subcutaneous pen injector (Ozempic) tramadol 50 mg tablet 50 mg PO TID PRN pain 06/07/24 06/07/24 trazodone 50 mg tablet 50 mg PO QPM 06/07/24 06/07/24 umeclidinium 62.5 mcg-vilanterol 1 inh inhalation DAILY 06/07/24 06/07/24 25 mcg/actuation powdr for inhalation (Anoro Ellipta) Previous Rx's ?Medication ?Instructions ?Recorded ondansetron 4 mg disintegrating 4 mg PO Q6H PRN nausea and 06/08/24 tablet vomiting #20 tabs Allergies Allergy/AdvReac Type Severity Reaction Status Date / Time hydroxychloroquine Allergy Severe Unknown Verified 06/07/24 18:40 [From Plaquenil] Opioid HPI Opioid Management Most Recent Opioid Data: Last Pain Scale 6 06/08/24 17:22 Review of Systems ROS Narrative A ten point review of systems is negative except as noted above. [facility] Medical History (Updated 06/08/24 @ 18:38 by Kaushik Sharpe MD) Head injury ?S09.90XA - Unspecified injury of head, initial encounter (ICD-10) Pain ?R52 - Pain, unspecified (ICD-10) High cholesterol ?E78.00 - Pure hypercholesterolemia, unspecified (ICD-10) HTN (hypertension) ?I10 - Essential (primary) hypertension (ICD-10) Exam Narrative Exam Narrative: Nurses note and vital signs reviewed and patient is not hypoxic. General: The patient appears in no apparent distress. Patient is resting comfortably on cart. Skin: Warm, dry, no pallor noted. There is no rash noted. Head: Normocephalic, large sutured laceration present on her anterior scalp. Eye: Normal conjunctiva, no drainage, EOMI. PERRL Ears, Nose, Mouth, and Throat: oral mucosa is moist. Nares patent. Cardiovascular: Regular Rate and Rhythm Respiratory: Patient is in no distress, no accessory muscle use, lungs are clear to auscultation, no wheezing, rales or rhonchi Back: non-tender GI: Soft and nontender Musculoskeletal: The patient has no evidence of calf tenderness, no pitting edema, symmetrical pulses noted bilaterally Neurological: A&O, normal speech Psychiatric: Cooperative Constitutional Vital Signs, click to edit/add: Last Vital Signs Temp 98.4 F 06/08/24 17:08 Pulse 115 H 06/08/24 17:08 Resp 18 06/08/24 17:08 BP 165/95 H 06/08/24 17:08 Pulse Ox 95 06/08/24 17:08 O2 Del Method Room Air 06/08/24 17:08 Course Vital Signs Vital signs: Vital Signs Temperature 98.4 F 06/08/24 17:08 Pulse Rate 115 H 06/08/24 17:08 Respiratory Rate 18 06/08/24 17:08 Blood Pressure 165/95 H 06/08/24 17:08 Pulse Oximetry 95 06/08/24 17:08 Oxygen Delivery Method Room Air 06/08/24 17:08 Temperature 98.4 F 06/08/24 17:08 Pulse Rate 115 H 06/08/24 17:08 Respiratory Rate 18 06/08/24 17:08 Blood Pressure 165/95 H 06/08/24 17:08 Pulse Oximetry 95 06/08/24 17:08 Oxygen Delivery Method Room Air 06/08/24 17:08 Medical Decision Making MDM Narrative Medical decision making narrative: The patient felt much better after IV fluids and IV Zofran and is able to be discharged home. Treatment diagnosis and follow-up were discussed with the patient. Differential Diagnosis Differential Diagnosis: Nausea and vomiting, dehydration, head injury Lab Data Lab results reviewed: Yes I reviewed the patient's lab results Labs: Lab Results 06/08/24 Range/Units 17:17 WBC 10.9 (4.0-11.0) 10^3/uL RBC 3.67 L (4.20-5.40) 10^6/uL Hgb 11.3 L (12.0-16.0) g/dL Hct 33.1 L (36.0-48.0) % MCV 90.2 (81.0-99.0) fL MCH 30.8 (26.7-34.0) pg MCHC 34.1 (29.9-35.2) g/dL RDW 12.9 (11.0-15.0) % Plt Count 206 (150-450) 10^3/uL MPV 12.3 (9.5-13.5) fL Neut % (Auto) 70.9 (43.0-75.0) % Lymph % (Auto) 17.0 L (20.5-60.0) % [place] % (Auto) 11.2 (1.7-12.0) % Eos % (Auto) 0.2 L (0.9-7.0) % Baso % (Auto) 0.4 (0.2-2.0) % Neut # (Auto) 7.7 H (1.4-6.5) 10^3/uL Lymph # (Auto) 1.8 (1.2-3.8) 10^3/uL [place] # (Auto) 1.2 H (0.3-0.8) 10^3/uL Eos # (Auto) 0.0 (0.0-0.7) 10^3/uL Baso # (Auto) 0.0 (0.0-0.1) 10^3/uL Abs Immat Gran (auto) 0.03 (0.00-0.03) 10^3/uL Imm/Tot Granulo (auto) 0.3 (0.0-0.5) % Sodium 136 (136-145) mmol/L Potassium 3.6 (3.5-5.1) mmol/L Chloride 103 (98-107) mmol/L Carbon Dioxide 25.1 (21.0-32.0) mmol/L Anion Gap 11.5 BUN 26.0 H (7.0-18.0) mg/dL Creatinine 1.18 H (0.55-1.02) mg/dL Est GFR ( Amer) 55 L (>=60) Est GFR (Non-Af Amer) 45 L (>=60) BUN/Creatinine Ratio 22.0 Glucose 118 H (74-106) mg/dL Calcium 9.2 (8.5-10.1) mg/dL Discharge Plan Discharge Chief Complaint: Nausea/Vomiting/Diarrhea Clinical Impression: Nausea & vomiting Patient Disposition: Home, Self-Care Time of Disposition Decision: 18:38 Condition: Good Mode of Transportation: Private Vehicle Prescriptions / Home Meds: New ondansetron 4 mg tablet,disintegrating 4 mg PO Q6H PRN (Reason: nausea and vomiting) Qty: 20 0RF No Action albuterol sulfate 90 mcg/actuation HFA aerosol inhaler 2 puff INHALATION Q4H PRN (Reason: shortness of breath or wheezing) amlodipine 5 mg tablet 5 mg PO BID atorvastatin 40 mg tablet 40 mg PO QPM clopidogrel 75 mg tablet 75 mg PO DAILY Jardiance 10 mg tablet 10 mg PO QAM fluticasone propionate 50 mcg/actuation spray,suspension 2 spray INTRANASAL DAILY leflunomide 20 mg tablet 20 mg PO .every other day Patient Comments: Must get standing labs!!! lisinopril 20 mg tablet 20 mg PO BID metoprolol succinate 100 mg tablet extended release 24 hr 100 mg PO DAILY pantoprazole 40 mg tablet,delayed release (DR/EC) 40 mg PO DAILY Ozempic 2 mg/dose (8 mg/3 mL) pen injector 2 mg SUBCUT QWEEK tramadol 50 mg tablet 50 mg PO TID PRN (Reason: pain) trazodone 50 mg tablet 50 mg PO QPM Anoro Ellipta 62.5-25 mcg/actuation blister with device 1 inh INHALATION DAILY Print Language: Iranian Instructions: Acute Nausea and Vomiting (ED) Referrals: Jonathan Elliott DO [Primary Care Provider] - 1 week
[2024-06-08 17:23] LABS: Basophils Percent Auto 0.4 % (0.2-2.0); Eosinophils Percent Auto 0.2 % (0.9-7.0); Hematocrit 33.1 % (36.0-48.0); Hemoglobin 11.3 g/dL (12.0-16.0); Immature Granulocytes Abs Auto 0.03 10^3/uL (0.00-0.03); Immature Granulocytes Pct Auto 0.3 % (0.0-0.5); Lymphocytes Absolute Auto 1.8 10^3/uL (1.2-3.8); Mean Corpuscular HGB Conc 34.1 g/dL (29.9-35.2); Mean Corpuscular Hemoglobin 30.8 pg (26.7-34.0); Mean Corpuscular Volume 90.2 fL (81.0-99.0); Mean Platelet Volume 12.3 fL (9.5-13.5); Monocytes Absolute Auto 1.2 10^3/uL (0.3-0.8); Monocytes Percent Auto 11.2 % (1.7-12.0); Neutrophils Absolute Auto 7.7 10^3/uL (1.4-6.5); Neutrophils Percent Auto 70.9 % (43.0-75.0); Platelet Count 206 10^3/uL (150-450); Red Blood Count 3.67 10^6/uL (4.20-5.40); Red Cell Distribution Width 12.9 % (11.0-15.0); White Blood Count 10.9 10^3/uL (4.0-11.0)
[2024-06-08] MEDS: 0.9 % SODIUM CHLORIDE 1,000 ML 1000 ML IV (17:26)
[2024-06-08] MEDS: ONDANSETRON PF 4 MG/2 ML VIAL IV (17:26)
[2024-06-08 17:31] LABS: Anion Gap 11.5; Calcium 9.2 mg/dL (8.5-10.1); Carbon Dioxide 25.1 mmol/L (21.0-32.0); Chloride 103 mmol/L (98-107); Estimated GFR (African America 55 (>=60); Estimated GFR (Non-African Ame 45 (>=60); Glucose 118 mg/dL (74-106); Potassium 3.6 mmol/L (3.5-5.1); Sodium 136 mmol/L (136-145)
[2024-06-08 18:51] VITALS: BP 170/93; PULSE 96; O2SAT 98
== END 2024-06-08 18:52 | disposition home or self-care (01) ==
PROVIDERS: Emergency Provider Emergency Medicine; PCP Internal Medicine
DX: R11.2 Nausea with vomiting, unspecified (principal)
CPT/HCPCS: 36415; 80048; 85025; 96361; 96374; 99284; J2405

== ENCOUNTER 2024-07-11 12:22 | Outpatient (OUT) | payer MEDICARE, OTHER, SELFPAY ==
--- NOTE | 2024-07-11 12:39 | XR_ITS ---
The [address] [address] Patient Name: XAVIER NEGRON MRN: [id number] date: 1955 Sex: F Assigned Patient Location: [facility] Current Patient Location: Accession/Order Number: [id number] Exam Date: 07/11/2024 12:45 Report Date: 07/14/2024 07:05 At the request of: DARREN ALDANA Procedure: XR finger LT min 2V PROCEDURE: XR finger LT min 2V COMPARISON: 06/07/2024 HISTORY: pain of finger of left hand FINDINGS: BONES:Complex intra-articular subacute fracture base of the fifth middle phalanx with significant interval change including overlapping of the bones and some bone remodeling. No significant bony bridging. SOFT TISSUES:Negative. No visible soft tissue swelling. EFFUSION:None visible. OTHER: Negative. XR/XR finger LT min 2V IMPRESSION: Change in complex intra-articular fracture fifth middle phalanx with no signs of bony bridging Electronically authenticated by: TENZIN GENTILE Date: 07/14/2024 07:05
== END 2024-07-11 12:23 | disposition home or self-care (01) ==
LOC: RAD 12:26
PROVIDERS: PCP Internal Medicine; Visit Provider Internal Medicine
DX: M79.645 Pain in left finger(s) (principal); S62.627D Displaced fracture of middle phalanx of left little finger, subsequent encounter for fracture with routine healing
CPT/HCPCS: 73140

== ENCOUNTER 2024-07-11 12:28 | Outpatient (OUT) | payer MEDICARE, OTHER, SELFPAY ==
[2024-07-11 13:11] LABS: Basophils Absolute Auto 0.1 10^3/uL (0.0-0.1); Basophils Percent Auto 0.7 % (0.2-2.0); Eosinophils Absolute Auto 0.2 10^3/uL (0.0-0.7); Eosinophils Percent Auto 3.3 % (0.9-7.0); Hematocrit 39.4 % (36.0-48.0); Hemoglobin 12.5 g/dL (12.0-16.0); Immature Granulocytes Abs Auto 0.01 10^3/uL (0.00-0.03); Immature Granulocytes Pct Auto 0.1 % (0.0-0.5); Lymphocytes Absolute Auto 2.4 10^3/uL (1.2-3.8); Lymphocytes Percent Auto 34.7 % (20.5-60.0); Mean Corpuscular HGB Conc 31.7 g/dL (29.9-35.2); Mean Corpuscular Hemoglobin 29.8 pg (26.7-34.0); Mean Platelet Volume 12.1 fL (9.5-13.5); Monocytes Absolute Auto 0.7 10^3/uL (0.3-0.8); Monocytes Percent Auto 10.4 % (1.7-12.0); Neutrophils Absolute Auto 3.5 10^3/uL (1.4-6.5); Neutrophils Percent Auto 50.8 % (43.0-75.0); Platelet Count 241 10^3/uL (150-450); Red Blood Count 4.19 10^6/uL (4.20-5.40); Red Cell Distribution Width 12.9 % (11.0-15.0); White Blood Count 6.9 10^3/uL (4.0-11.0)
[2024-07-11 13:14] LABS: Erythrocyte Sedimentation Rate 61 mm/hr (<=30)
[2024-07-11 13:54] LABS: Alanine Aminotransferase 19 U/L (14-59); Albumin Level 3.5 g/dL (3.4-5.0); Alkaline Phosphatase 62 U/L (46-116); Aspartate Amino Transferase 17 U/L (15-37); Bilirubin Direct 0.1 mg/dL (0.0-0.2); Bilirubin Total 0.3 mg/dL (0.2-1.0); Estimated GFR (African America 38 (>=60 mL/min/1.73m^2); Estimated GFR (Non-African Ame 32 (>=60 mL/min/1.73m^2); Globulin 3.4 g/dL; Total Protein 6.9 g/dL (6.4-8.2)
== END 2024-07-11 12:29 | disposition home or self-care (01) ==
LOC: LAB 12:30
PROVIDERS: PCP Internal Medicine; Visit Provider Internal Medicine Rheumatology
DX: M05.79 Rheumatoid arthritis with rheumatoid factor of multiple sites without organ or systems involvement (principal); Z79.899 Other long term (current) drug therapy
CPT/HCPCS: 36415; 80076; 82565; 85025; 85652

== ENCOUNTER 2024-08-29 10:52 | Outpatient (OUT) | payer MEDICARE, OTHER, SELFPAY ==
[2024-08-29 11:16] LABS: Basophils Absolute Auto 0.1 10^3/uL (0.0-0.1); Basophils Percent Auto 0.5 % (0.2-2.0); Eosinophils Absolute Auto 0.2 10^3/uL (0.0-0.7); Eosinophils Percent Auto 1.7 % (0.9-7.0); Hematocrit 41.4 % (36.0-48.0); Hemoglobin 13.7 g/dL (12.0-16.0); Immature Granulocytes Abs Auto 0.03 10^3/uL (0.00-0.03); Immature Granulocytes Pct Auto 0.3 % (0.0-0.5); Lymphocytes Percent Auto 20.2 % (20.5-60.0); Mean Corpuscular HGB Conc 33.1 g/dL (29.9-35.2); Mean Corpuscular Hemoglobin 29.9 pg (26.7-34.0); Mean Corpuscular Volume 90.4 fL (81.0-99.0); Mean Platelet Volume 11.8 fL (9.5-13.5); Monocytes Absolute Auto 0.9 10^3/uL (0.3-0.8); Monocytes Percent Auto 9.4 % (1.7-12.0); Neutrophils Absolute Auto 6.5 10^3/uL (1.4-6.5); Neutrophils Percent Auto 67.9 % (43.0-75.0); Platelet Count 254 10^3/uL (150-450); Red Blood Count 4.58 10^6/uL (4.20-5.40); Red Cell Distribution Width 13.1 % (11.0-15.0); White Blood Count 9.6 10^3/uL (4.0-11.0)
[2024-08-29 11:35] LABS: Alanine Aminotransferase 21 U/L (14-59); Albumin Level 3.5 g/dL (3.4-5.0); Alkaline Phosphatase 62 U/L (46-116); Aspartate Amino Transferase 19 U/L (15-37); Bilirubin Direct 0.1 mg/dL (0.0-0.2); Bilirubin Total 0.5 mg/dL (0.2-1.0); Estimated GFR (African America 48 (>=60 mL/min/1.73m^2); Estimated GFR (Non-African Ame 40 (>=60 mL/min/1.73m^2); Globulin 3.4 g/dL; Total Protein 6.9 g/dL (6.4-8.2)
[2024-08-29 11:47] LABS: Erythrocyte Sedimentation Rate 14 mm/hr (<=30)
== END 2024-08-29 10:53 | disposition home or self-care (01) ==
LOC: LAB 10:55
PROVIDERS: PCP Internal Medicine; Visit Provider Internal Medicine Rheumatology
DX: M05.79 Rheumatoid arthritis with rheumatoid factor of multiple sites without organ or systems involvement (principal); Z79.899 Other long term (current) drug therapy
CPT/HCPCS: 36415; 80076; 82565; 85025; 85652

== ENCOUNTER 2024-10-12 09:56 | Outpatient (RCR) | payer MEDICARE, OTHER, SELFPAY | END 2024-11-02 14:55 | disposition home or self-care (01) | LOC: PT 09:56 | PROVIDERS: PCP Internal Medicine; Visit Provider Internal Medicine Rheumatology | DX: M25.512 Pain in left shoulder (principal) | CPT/HCPCS: 97110; 97162 ==

== ENCOUNTER 2024-10-25 08:46 | Outpatient (OUT) | payer MEDICARE, OTHER, SELFPAY ==
[2024-10-25 09:17] LABS: Basophils Absolute Auto 0.1 10^3/uL (0.0-0.1); Eosinophils Absolute Auto 0.3 10^3/uL (0.0-0.7); Eosinophils Percent Auto 4.9 % (0.9-7.0); Hematocrit 40.2 % (36.0-48.0); Hemoglobin 13.3 g/dL (12.0-16.0); Immature Granulocytes Abs Auto 0.01 10^3/uL (0.00-0.03); Immature Granulocytes Pct Auto 0.2 % (0.0-0.5); Lymphocytes Absolute Auto 1.8 10^3/uL (1.2-3.8); Lymphocytes Percent Auto 30.6 % (20.5-60.0); Mean Corpuscular HGB Conc 33.1 g/dL (29.9-35.2); Mean Corpuscular Hemoglobin 29.8 pg (26.7-34.0); Mean Corpuscular Volume 90.1 fL (81.0-99.0); Mean Platelet Volume 11.8 fL (9.5-13.5); Monocytes Absolute Auto 0.9 10^3/uL (0.3-0.8); Monocytes Percent Auto 14.4 % (1.7-12.0); Neutrophils Absolute Auto 2.9 10^3/uL (1.4-6.5); Neutrophils Percent Auto 48.9 % (43.0-75.0); Platelet Count 276 10^3/uL (150-450); Red Blood Count 4.46 10^6/uL (4.20-5.40); Red Cell Distribution Width 14.9 % (11.0-15.0); White Blood Count 5.9 10^3/uL (4.0-11.0)
[2024-10-25 09:43] LABS: Alanine Aminotransferase 24 U/L (14-59); Albumin Level 3.3 g/dL (3.4-5.0); Alkaline Phosphatase 63 U/L (46-116); Aspartate Amino Transferase 23 U/L (15-37); Bilirubin Direct 0.1 mg/dL (0.0-0.2); Bilirubin Total 0.5 mg/dL (0.2-1.0); Estimated GFR (African America 48 (>=60 mL/min/1.73m^2); Estimated GFR (Non-African Ame 40 (>=60 mL/min/1.73m^2); Globulin 3.4 g/dL; Total Protein 6.7 g/dL (6.4-8.2)
[2024-10-25 09:58] LABS: Erythrocyte Sedimentation Rate 17 mm/hr (<=30)
== END 2024-10-25 08:47 | disposition home or self-care (01) ==
LOC: LAB 08:49
PROVIDERS: PCP Internal Medicine; Visit Provider Internal Medicine Rheumatology
DX: M05.79 Rheumatoid arthritis with rheumatoid factor of multiple sites without organ or systems involvement (principal); Z79.899 Other long term (current) drug therapy
CPT/HCPCS: 36415; 80076; 82565; 85025; 85652

== ENCOUNTER 2024-11-08 08:31 | Outpatient (OUT) | payer MEDICARE, OTHER, SELFPAY ==
--- NOTE | 2024-11-08 09:10 | MR_ITS ---
The [address] [address] Patient Name: XAVIER NEGRON MRN: [id number] date: 1955 Sex: F Assigned Patient Location: MRI Current Patient Location: MRI Accession/Order Number: [id number] Exam Date: 11/08/2024 17:53 Report Date: 11/08/2024 17:59 At the request of: NABOR PEOPLES Procedure: MR shoulder LT wo con MR LEFT SHOULDER CLINICAL INFORMATION: Chronic left shoulder pain, limited range of motion, weakness. COMPARISON: None. PROCEDURE: Axial, oblique coronal, and oblique sagittal long TR images of the shoulder were obtained. FINDINGS: ROTATOR CUFF AND ASSOCIATED STRUCTURES Biceps Tendon: There is a full-thickness tear of the proximal long head of the biceps tendon which is retracted into the proximal biceps groove. Rotator cuff: There is a full-thickness tear of the supraspinatus tendon and infraspinatus tendon with medial retraction of the tendon fibers by at least 3.6 cm. There is unroofing of the humeral head with cranial subluxation of the humerus in respect to the glenoid and near complete loss of the subacromial space. The subscapularis is a partial-thickness bursal surface tear. The teres minor component is intact. Musculature: There is fatty atrophy of the supraspinatus and epididymis musculature suggesting a chronic tear. Bursa: Fluid is noted throughout subacromial bursa. OSSEOUS STRUCTURES Acromioclavicular joint: There are mild degenerative changes of the acromioclavicular joint. A type 2 acromion configuration is noted. There is no anterior or lateral acromial downsloping. Bones: No Hill-Sachs, reverse Hill-Sachs, or bony Bankart lesions are seen. There are no fractures or regions of abnormal bone marrow signal intensity. GLENOHUMERAL JOINT Joint: There is a moderate joint effusion. Cartilage: There is partial thickness chondromalacia on both sides of the joint space Labrum: The labrum is truncated suggesting a chronic labral tear and chronic labral degeneration. Other support structures: No capsular or ligamentous abnormality is seen. MR/MR shoulder LT wo con IMPRESSION: 1. There is a full-thickness tear of the supraspinatus tendon and infraspinatus tendon with medial retraction of the tendon fibers by at least 3.6 cm. There is unroofing of the humeral head with cranial subluxation of the humerus in respect to the glenoid and near complete loss of the subacromial space. 2. The subscapularis is a partial-thickness bursal surface tear. 3. There is a full-thickness tear of the proximal long head of the biceps tendon which is retracted into the proximal biceps groove. 4. The labrum is truncated suggesting a chronic labral tear and chronic labral degeneration. 5. There is partial thickness chondromalacia on both sides of the glenohumeral joint. Impression dictated by: Michael Benítez M.D.11/08/2024 5:59 PM Dictation Location: [place] [address] Electronically authenticated by: [id number] Y Date: 11/08/2024 17:59
== END 2024-11-08 08:32 | disposition home or self-care (01) ==
LOC: MRI 08:31
PROVIDERS: PCP Internal Medicine; Visit Provider Internal Medicine Rheumatology
DX: M25.512 Pain in left shoulder (principal); S46.112A Strain of muscle, fascia and tendon of long head of biceps, left arm, initial encounter; S46.812A Strain of other muscles, fascia and tendons at shoulder and upper arm level, left arm, initial encounter
CPT/HCPCS: 73221

== ENCOUNTER 2025-06-14 10:19 | Outpatient (OUT) | payer MEDICARE, OTHER, SELFPAY ==
--- OUTSIDE RECORDS SUMMARY | 2025-06-11 11:12 | XMS_ITS ---
Author Name Auto Generated Organization OHIP Care Team Providers Care Kick Boxer Name Role Phone Kiana Munson Admitting Unavailable Kiana Munson Attending Unavailable Jonathan Elliott Primary Care Unavailable Rl Wilson Attending Unavailable Jonathan Elliott Primary Care Unavailable Rl Wilson Admitting Unavailable Jonathan Elliott Primary Care Unavailable Rl Wilson Admitting Unavailable Rl Wilson Attending Unavailable Sunita Santos Admitting Unavailable Sunita Santos Attending Unavailable Jonathan Elliott Primary Care Unavailable iKana Munson Admitting Unavailable Kiana Munson Attending Unavailable Jonathan Elliott Primary Care Unavailable Kiana Munson Admitting Unavailable Kiana Munson Attending Unavailable Jonathan Elliott Primary Care Unavailable RAYMOND SAUCEDA Attending Unavailable RAYMOND SAUCEDA Attending Unavailable RAYMOND SAUCEDA Attending Unavailable PROBLEMS DATE TYPE CONDITION / CODE ATTENDING STATUS [facility]INCON 12/28/2024 Unknown 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 / M05.79(ICD-10) [facility] 10/06/2024 Unknown Low back pain, unspecified / M54.50(ICD-10) [facility] 10/04/2024 Unknown Displaced fractu re of middle phalanx of left little finger, initial encounter for closed fracture / S62.627A(ICD-10) Kiana Munson [facility] 07/19/2024 Unknown Pain in left florian d / M79.642(ICD-10) Kiana Munson [facility] PROCEDURES No Procedure Records Found RESULTS COMPREHENSIVE METABOLIC PANEL Collected: 04/26/2025 9 :44 AM Status: F Source: [facility] TYPE CODE TESTS RESULT OUT OF RANGE REFERENCE UNITS LAB GLU Glucose 93 Normal 70-100 mg/dL Result Comment: Random Gluco se Reference Range is dependent on time and content of last meal. Glucose of more than 200 mg/dL in a nonstressed, ambulatory subject supports the diagnosis of Diabetes Mellitus. ADA recommended reference range LAB BUN Blood Urea Nitrogen 58 High 7-25 mg/d L LAB CREATT Creatinine 1.43 High 0.60-1.20 mg/dL LAB GFReNR Estimated GFR 39.456 LAB NA Sodium 136 Normal 136-145 mmol/L LAB K Potassium 4.6 Normal 3.5-5.1 mmol/L LAB CL Chloride 107 Normal 98-107 mmol/L LAB CO2 Carbon Dioxide 22.7 Normal 21.0-31.0 mmol/L LAB GAP Anion Gap 10.9 Normal 6.0-15.0 LAB CA Calcium 9.0 Normal 8.6-10.3 mg/dL LAB TP Total Protein 6.7 Normal 6.4-8.9 g/dL LAB ALB Albumin Level 4.1 Normal 3.5-5.7 g/dL LAB GLOB Globulin 2.6 g/dL LAB AGRATIO Albumin/Globulin Ratio 1.6 LAB BILIT Bilirubin,Total 0.4 Normal 0.3-1.0 mg/dL LAB AST Aspartate Amino Transferase 21 Normal 13-39 U/L LAB ALT Alanine Aminotransferase 15 Normal 7-52 U/L LAB ALP Alkaline Phosphatase 58 Normal 34-104 U/L Result Comment: PERFORMED BY : [place] [address] PATHOLOGIST HUMAN SERVICE COORDINATOR SERGEI FITZGERALD M.D. Performed By: #### CBC, ESR, CMP #### [facility] [address] COMPLETE BLOOD COUNT AUTO DIFF Collected: 04/26/2025 9:44 AM Status: F Source: [facility] TYPE CODE TESTS RESULT OUT OF RANGE REFERENCE UNITS LAB WBC White Blood Count 5.0 Normal 3.8-11.6 [CFU]/mL LAB UNWBC Uncorrected WBC 5.0 Normal 3.8-11.6 10*3/uL LAB RBC Red Blood Count 4.24 Normal 3.60-5.00 10*6/u L LAB HGB Hemoglobin 13.0 Normal 11.8-15.4 g/dL LAB HCT Hematocrit 38.8 Normal 34.0-46.4 % LAB MCV Mean Corpuscular Volume 91.6 Normal 80-100 fL LAB MCH Mean Corpuscular Hemoglobin 30.6 Normal 24.7-34.3 pg LAB MCHC Mean Corpuscular HGB Conc 33.4 Normal 32.0-35.0 g/dL LAB RDW Red Cell Distribution Width 13.5 Normal 11.9-15.3 % LAB PLT Platelet Count 205 Normal 150-450 10*3/uL LAB MPV Mean Platelet Volume 10.3 Normal 6.3-10.7 fL LAB NE% Neutrophils % (Auto) 52.9 . % LAB LY% Lymphocytes % (Auto) 25.9 . % LAB MO% Monocytes % (Auto) 15.3 . % LAB EO% Eosinophils % (Auto) 5.0 . % LAB BA% Basophils % (Auto) 0.9 . % LAB NRBC% NRBC% 0.1 Normal 0-0.5 /100{WBC} LAB NE# Neutrophils # (Auto) 2.7 Normal 1.8-7.7 10*3/uL LAB LY# Lymphocytes # (Auto) 1.3 Normal 1.00-4.8 10*3/uL LAB MO# Monocytes # (Auto) 0.8 Normal 0.0-0.8 10*3/uL LAB EO# Eosinophils # (Auto) 0.3 Normal 0.0-0.45 10*3/uL LAB BA# Basophils # (Auto) 0.0 Normal 0.0-0.2 10*3/uL Performed By: #### CBC, ESR, CMP #### [address] ERYTHROCYTE SEDIMENTATION RATE Collected: 04/26/2025 9:44 AM Status: F Source: [facility] TYPE CODE TESTS RESULT OUT OF RANGE REFERENCE UNITS LAB ESR Erythrocyte Sedimentation Rate 11 Normal 0-29 Result Comment: PERFORMED BY : [place] [address] PATHOLOGIST HUMAN SERVICE COORDINATOR SERGEI FITZGERALD M.D. Performed By: #### CBC, ESR, CMP #### [address] HEPATIC PANEL Collected: 12/28/2024 9:38 AM Status: F Source: [facility] TYPE CODE TESTS RESULT OUT OF RANGE REFERENCE UNITS LAB TP Total Protein 6.5 Normal 6.4-8.9 g/dL LAB ALB Albumin Level 3.9 Normal 3.5-5.7 g/dL LAB GLOB Globulin 2.6 g/dL LAB AGRATIO Albumin/Globulin Ratio 1.5 LAB BILIT Bilirubin,Total 0.4 Normal 0.3-1.0 mg/dL LAB BILID Bilirubin,Direct 0.10 Normal 0.03-0.18 mg/dL LAB BILII Bilirubin,Indirect 0.3 mg/dL LAB AST Aspartate Amino Transferase 22 Normal 13-39 U/L LAB ALT Alanine Aminotransferase 16 Normal 7-52 U/L LAB ALP Alkaline Phosphatase 64 Normal 34-104 U/L Performed By: #### ESR, CREA T, HEPATIC, CBC #### [address] CREATININE Collected: 12/28/2024 9:38 AM Status: F Source: [facility] TYPE CODE TESTS RESULT OUT OF RANGE REFERENCE UNITS LAB CREATT Creatinine 1.12 Normal 0.60-1.20 mg/dL LAB GFReNR Estimated GFR 53.230 mL/Min Result Comment: PERFORMED BY : [facility] [address] [place] [id number] PATHOLOGIST HUMAN SERVICE COORDINATOR ALEXANDRIA JOE M.D. Performed By: #### ESR, CREA T, HEPATIC, CBC #### [facility] [address] COMPLETE BLOOD COUNT AUTO DIFF Collected: 12/28/2024 9:38 AM Status: F Source: [facility] TYPE CODE TESTS RESULT OUT OF RANGE REFERENCE UNITS LAB WBC White Blood Count 7.2 Normal 3.8-11.6 10*3/uL LAB UNWBC Uncorrected WBC 7.2 Normal 3.8-11.6 10*3/uL LAB RBC Red Blood Count 4.17 Normal 3.60-5.00 10*6/u L LAB HGB Hemoglobin 12.7 Normal 11.8-15.4 g/dL LAB HCT Hematocrit 37.9 Normal 34.0-46.4 % LAB MCV Mean Corpuscular Volume 91.0 Normal 80-100 fL LAB MCH Mean Corpuscular Hemoglobin 30.5 Normal 24.7-34.3 pg LAB MCHC Mean Corpuscular HGB Conc 33.5 Normal 32.0-35.0 g/dL LAB RDW Red Cell Distribution Width 13.6 Normal 11.9-15.3 % LAB PLT Platelet Count 245 Normal 150-450 10*3/uL LAB MPV Mean Platelet Volume 10.3 Normal 6.3-10.7 fL LAB NE% Neutrophils % (Auto) 56.2 . % LAB LY% Lymphocytes % (Auto) 24.2 . % LAB MO% Monocytes % (Auto) 13.3 . % LAB EO% Eosinophils % (Auto) 5.6 . % LAB BA% Basophils % (Auto) 0.7 . % LAB NRBC% NRBC% 0.1 Normal 0-0.5 /100{WBC} LAB NE# Neutrophils # (Auto) 4.1 Normal 1.8-7.7 10*3/uL LAB LY# Lymphocytes # (Auto) 1.7 Normal 1.00-4.8 10*3/uL LAB MO# Monocytes # (Auto) 1.0 High 0.0-0.8 10*3/uL LAB EO# Eosinophils # (Auto) 0.4 Normal 0.0-0.45 10*3/uL LAB BA# Basophils # (Auto) 0.1 Normal 0.0-0.2 10*3/uL Performed By: #### ESR, CREA T, HEPATIC, CBC #### [address] ERYTHROCYTE SEDIMENTATION RATE Collected: 12/28/2024 9:38 AM Status: F Source: [facility] TYPE CODE TESTS RESULT OUT OF RANGE REFERENCE UNITS LAB ESR Erythrocyte Sedimentation Rate 22 Normal 0-29 Result Comment: PERFORMED BY : [place] [address] PATHOLOGIST HUMAN SERVICE COORDINATOR ALEXANDRIA JOE M.D. Performed By: #### ESR, CREA T, HEPATIC, CBC #### [address] XR LUMBAR SPINE MIN 4V* Observed: 2024 1:59 PM Status: COMPLETED Source: [facility] [place] [address] XRay Report Signed Patient: Reba Gregory MR#: [id number] : 1955 Acct:[id number] Age/Sex: 68 / F ADM Date: 10/06/24 Loc: XD Room: Type: [facility] Attending Dr: Rl Wilson MD Copies to: Rl Wilson MD Ordering Provider: Rl Wilson MD Date of Service: 10/06/24 XR/XR thoracic spine 3V*: UPPER AND LOW BACK PAIN ([id number]) XR/XR lumbar spine min 4V*: UPPER AND LOWER BACK PAIN THORACIC SPINE - - 3 views, lumbar spine 6 views CLINICAL HISTORY: Left shoulder pain for one year. Pain in upper and lower back for one year. COMPARISON: None FINDINGS: Thoracic spine: Mild scoliosis. Vertebral body heights appear maintained. Bones are grossly demineralized. Scattered degenerative change. Pedicles appear intact. Lumbar spine: Bones are grossly demineralized. Vertebral body heights appear maintained. Diffuse facet joint degenerative changes with severe disc space narrowing L3-L4 as well as approximately 6 mm of anterolisthesis of L4 on L5. SI joints demonstrate degenerative change. XR/XR thoracic spine 3V* IMPRESSION: THORACIC SPINE DEMONSTRATES SCOLIOSIS WITH ASSOCIATED DEGENERATIVE CHANGE. NO ACUTE BONY PROCESS. LUMBAR SPINE DEMONSTRATES DEGENERATIVE CHANGE WITH SEVERE DISC SPACE NARROWING L3-L4. Impression dictated by: Dave Espana Jr., D.O.10/06/2024 2:00 PM Dictation Location: RADIO-PC-23 Transcribed By: TANYA 10/06/24 1400 Dictated By: Dave Espana Jr, DO 10/06/24 1359 Signed By: <Electronically signed by Dave Espana Jr, DO in OV> 10/06/24 1400 XR SHOULDER LT MIN 2V* Observed: 1:55 PM Status: COMPLETED Source: [facility] [place] [address] XRay Report Signed Patient: Reba Gregory MR#: [id number] : 1955 Acct:[id number] Age/Sex: 68 / F ADM Date: 10/06/24 Loc: XD Room: Type: [facility] Attending Dr: Rl Wilson MD Copies to: Rl Wilson MD Ordering Provider: Rl Wilson MD Date of Service: 10/06/24 XR/XR shoulder LT min 2V*: SHOULDER PAIN LEFT SHOULDER - - 3 views CLINICAL HISTORY: Left shoulder pain for one year. COMPARISON: None FINDINGS: Mild degenerative changes of the AC and glenohumeral joints without acute bony process. XR/XR shoulder LT min 2V* IMPRESSION: MILD DEGENERATIVE CHANGES OF THE LEFT SHOULDER WITHOUT ACUTE BONY PROCESS. Impression dictated by: Dave Espana Jr., D.O.10/06/2024 1:55 PM Dictation Location: [facility]IO-PC-23 Transcribed By: TANYA 10/06/24 1355 Dictated By: Dave Espana Jr, DO 10/06/24 1355 Signed By: <Electronically signed by Dave Espana Jr, DO in OV> 10/06/24 1355 XR HAND LT MIN 3V* Observed: 10/04/2024 9:40 AM Status: COMPLETED Source: [facility] [address] [place] [address] XRay Report Signed Patient: Reba Gregory MR#: [id number] : 1955 Acct:[id number] Age/Sex: 68 / F ADM Date: 10/04/24 Loc: [facility] Room: Type: [facility] Attending Dr: Kiana Munson MD Copies to: Kiana Munson MD Ordering Provider: Kiana Munson MD Date of Service: 10/04/24 XR/XR hand LT min 3V*: S62.627A - Displaced fracture of middle phalanx of left l... LEFT HAND - 4 views REASON FOR EXAM: Left fifth middle phalanx fracture. COMPARISON: Left hand series 08/18/2024 FINDINGS: No focal soft tissue abnormality. A fracture line involving the middle phalanx of the fifth digit is no longer visualized. There appears to be erosive changes involving the PIP joint of the fifth digit similar to the prior study. 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 Moderate degenerative changes involving the CMC joint of the thumb. XR/XR hand LT min 3V* IMPRESSION: THE FRACTURE INVOLVING THE MIDDLE PHALANX OF THE FIFTH DIGIT IS NOT VISUALIZED ON TODAY'S STUDY SUGGESTIVE OF HEALING RESPONSE. THERE IS CONTINUED PRESUMED EROSIVE CHANGES INVOLVING THE PIP JOINT OF THE FIFTH DIGIT SIMILAR TO THE PRIOR STUDY. Impression dictated by: Dave Espana Jr., D.O.10/04/2024 9:43 AM Dictation Location: [place] [address] Transcribed By: [facility] 10/04/2443 Dictated By: Dave Espana Jr, DO 10/04/24 0940 Signed By: <Electronically signed by Dave Espana Jr, DO in OV> 10/04/24 0943 XR HAND LT MIN 3V* Observed: 08/18/2024 10:06 AM Status: COMPLETED Source: [facility] [address] [place] [address] XRay Report Signed Patient: Reba Gregory MR#: [id number] : 1955 Acct:[id number] Age/Sex: 68 / F ADM Date: 08/18/24 [facility] Type[facility] Attending Dr: Kiana Munson MD Copies to: Kiana Munson MD Ordering Provider: Kiana Munson MD Date of Service: 08/18/24 XR/XR hand LT min 3V*: S62.627A - Displaced fracture of middle phalanx of left l... LEFT HAND - 4 views CLINICAL DATA: Follow-up fracture at the fifth finger COMPARISON: 07/19/2024 AP, lateral and oblique views were obtained along with supplemental AP view of the thumb. There is redemonstration of intra-articular fracture at the base of the middle phalanx of the fifth finger. No change in alignment is seen. There is no new fracture or dislocation. Degenerative change is again seen at the lateral wrist. There are no significant soft tissue abnormalities. XR/XR hand LT min 3V* IMPRESSION: STABLE FRACTURE AT THE MIDDLE PHALANX OF THE FIFTH FINGER.. Impression dictated by: Lucero Bolton M.D.08/18/2024 10:08 AM Dictation Location: [place] [address] Transcribed By: [facility] 08/18/24 1008 Dictated By: Lucero Bolton MD 08/18/24 1006 Signed By: <Electronically signed by MD Lucero Bolton in OV> 08/18/24 1008 XR HAND LT MIN 3V* Observed: 07/19/2024 3:36 PM Status: COMPLETED Source: [facility] [address] [place] [address] XRay Report Signed Patient: Reba Gregory MR#: [id number] : 1955 Acct:[id number] Age/Sex: 68 / F ADM Date: 07/19/24 Loc: [facility] [place] Room: Type: [facility] Attending Dr: Kiana Munson MD Copies to: Kiana Munson MD Ordering Provider: Kiana Munson MD Date of Service: 07/19/24 XR/XR hand LT min 3V*: M79.642 - Pain in left hand 4 views left hand plain film COMPARISON: 07/11/2024 HISTORY: Status post left fifth middle phalanx fracture ACUTE FINDINGS: Stable fifth middle phalanx fracture. Articular involvement. Similar alignment. DEGENERATIVE CHANGE: Unremarkable SOFT TISSUE FINDINGS: Unremarkable JOINT EFFUSION: None POSTOP CHANGES: None BONY MINERALIZATION: Adequate XR/XR hand LT min 3V* IMPRESSION: Unchanged fifth middle phalanx intra-articular fracture. Impression dictated by: Rome Guerra M.D.07/19/2024 3:37 PM Dictation Location: [facility] Transcribed By: [facility] 07/19/24 1537 Dictated By: Rome Guerra DO 07/19/24 1536 Signed By: <Electronically signed by Rome Guerra DO in OV> 07/19/24 1537 ALLERGIES DATE TYPE / CODE NAME / CODE REACTION SEVERITY SOURCE 04/05/2025 Drug Allergy/4160 21943(SNOMED CT) hydroxychloroqui ne/[id number](RX NORM) Hives, rash Unknown [facility] 04/05/2025 Drug Allergy/4160 21329(SNOMED CT) morphine/T708032 545(RXNORM) Unresponsive Unknown [facility] 04/05/2025 Drug Allergy/4160 95566(SNOMED CT) adhesive tape/K521178010( RXNORM) Redness of Skin, skin tears Unknown [facility] ENCOUNTERS ADMIT/DISCHARGE ACCOUNT NUMBER ADMITTING ENCOUNTER CLASS LOCATION SOURCE 06/11/2025/06/11/20 [id number] Ambulatory Building:[facility] 04/26/2025/04/26/20 25 [id number] [facility] 01/24/2025/01/25/20 [id number] Ambulatory Building:[facility] 12/28/2024/12/29/19 25 [id number] [facility] 10/06/2024/10/06/19 [id number] Rl [facility] 10/04/2024/10/04/19 [id number] [facility] 08/18/2024/08/18/20 24 [id number] [facility] 07/26/2024/07/26/20 [id number] Ambulatory Building:[facility]E [facility] 07/19/2024/07/19/20 [id number] [facility] PAYERS ENCOUNTER GUARANTOR PAYER SUBSCRIBER SOURCE 06/11/2025 REBA Rahel DENGOB: [id number] [address] [place] [phone]: (JM) Primary Insurance:MEDICAREPo licy Number: [id number] Date:8008-08-72Baqy Name:Medicare REBA VILCHISOB: [id number] [place] [id number] [facility] 06/11/2025 Secondary Insurance:MEDICAL MUTUALPolicy Number: [id number] e Date:2022-02-11 REBA PELAYORDOB: [id number] [address] [place] [phone] [place] [address] [facility] 04/26/2025 Reba Rahel [id number] [place] [id number]: (HP) Primary Insurance:MedicarePo licy Number: [id number] Date:2025-04-26 Reba Rahel PiercerDOB: [id number] [address] [place] [phone]: () [facility] 04/26/2025 Secondary Insurance:MMOPolicy Number: [id number] e Date:[id number] [id number] [place] [address]BB: Reba E DarrDOB: [id number], [facility]Djj: (HP) [facility] 04/26/2025 Tertiary Insurance:Self PayPolicy Number: Effective Date:2025-04-26 NOT GIVENUNK [facility] 01/24/2025 REBA E DARRDOB: [id number] [address], [facility]Jdu: () Primary Insurance:MEDICAREPo licy Number: [id number] Date:7396-15-12Wesr Name:Medicare REBA E DARRDOB: [id number], [facility] [facility] EPIC 01/24/2025 Secondary Insurance:MEDICAL MUTUALPolicy Number: [id number] e Date:2022-02-11 REBA E DARRDOB: [id number] [address] [place] [phone] [facility] EPIC 12/28/2024 Reba E Sauv[address], [facility]Kvo: () Primary Insurance:MedicarePo licy Number: [id number] Date:2024-12-28 Reba E DarrDOB: [id number] [place] [address]Tva: () [facility] 12/28/2024 Secondary Insurance:MMOPolicy Number: [id number] e Date:[id number] [id number] [place] [address]MU: Reba E DarrDOB: [id number], [place] [phone]: () [facility] 12/28/2024 Tertiary Insurance:Self PayPolicy Number: Effective Date:2024-12-28 NOT GIVENUNK [facility] 10/06/2024 Reba E [id number] [place] [address]Iab: (HP) Primary Insurance:MedicarePo licy Number: [id number] Date:2024-10-05 Reba E DarrDOB: [id number], [facility]Atf: (HP) [facility] 10/06/2024 Secondary Insurance:MMOPolicy Number: [id number] e Date:4158-52-84HW [phone] [place] [address]YS: Reba E DarrDOB: [id number] [address], [facility]Odu: () [facility] 10/06/2024 Tertiary Insurance:Self PayPolicy Number: Effective Date:2024-10-05 NOT GIVENUNK [facility] 10/04/2024 Reba E Aisj[address] [place] [address]Fvq: (HP) Primary Insurance:MedicarePo licy Number: [id number] Date:2024-10-04 Reba E DarrDOB: [id number] [address] [place] [address]Bfj: (HP) [facility] 10/04/2024 Secondary Insurance:MMOPolicy Number: [id number] e Date:0532-37-91GV [id number] [place] [address]UP: Reba E DarrDOB: [id number] [address]Tel: () [facility] 10/04/2024 Tertiary Insurance:Self PayPolicy Number: Effective Date:2024-10-04 NOT GIVENUNK [facility] 08/18/2024 Reba Rahel PelayoChwh[address], [place] [id number]: () Primary Insurance:MedicarePo licy Number: [id number] Date:2024-08-18 Reba Rahel DarrDOB: [id number], [place] [id number]: () [facility] 08/18/2024 Secondary Insurance:MMOPolicy Number: [id number] e Date:5797-78-93ID [id number] [place] [address]FR: Reba Rahel DarrDOB: [id number] [address]Tel: () [facility] 08/18/2024 Tertiary Insurance:Self PayPolicy Number: Effective Date:2024-08-18 NOT GIVENUNK [facility] 07/26/2024 REBA Rahel DARRDOB: [id number] [address], [facility]Utf: (HP) Primary Insurance:MEDICAREPo licy Number: [id number] Date:9980-13-74Azvl Name:Medicare REBA Rahel DARRDOB: [id number] [place] [address] [facility] EPIC 07/26/2024 Secondary Insurance:MEDICAL MUTUALPolicy Number: [id number] e Date:2022-02-11 REBA PELAYORDOB: [id number] [place] [address] [facility] EP[facility] 07/19/2024 Reba Pelayor[address] [place] [address]Lqp: (HP) Primary Insurance:MedicarePo licy Number: [id number] Date:2024-07-19 Reba PelayorDOB: [id number] [place] [address]Qnu: () [facility] 07/19/2024 Secondary Insurance:MMOPolicy Number: [id number] e Date:1059-61-53EJ [id number] [place] [address]TV: Reba PelayorDOB: [id number] [address]Nzw: () [facility] 07/19/2024 Tertiary Insurance:Self PayPolicy Number: Effective Date:2024-07-19 [facility]
--- OUTSIDE RECORDS SUMMARY | 2025-06-11 11:15 | XMS_ITS | Encounter Summary ---
Author Organization [facility] Address [address] [place] [address] Care Team Providers Care Sander [employer]enc[employer] Name Role Phone Jonathan Elliott DO Primary Care Provider [phone] Encounter Details Date Type Department Care Team (Latest Contact Info) Description 06/11/2025 11:15 AM EDT Clinical Support [facility] [address] [place] [address] Liza Borjas CCC-A [address] [place] [address] Sensorineural hearing loss (SNHL) of both ears (Primary Dx) Social History Tobacco Use Types Packs/Day Years Used Date Smoking Tobacco: Never Assessed Comments Unknown Sex and Gender Information Value Date Recorded Sex Assigned at Not on file Legal Sex Female 6:41 PM EDT Gender Identity Not on file Sexual Orientation Not on file documented as of this encounter Progress Notes * ANGEL Barnard - 06/11/2025 11:15 AM EDT Pt picked up repaired right hearing aid documented in this encounter Plan of Treatment Upcoming Encounters Date Type Department Care Team (Late st Contact Info) Description 07/25/2025 8:00 AM EST Clinical Support [facility] [address] [place] [address] Liza Borjas CCC-A [address] [place] [address] documented as of this encounter Visit Diagnoses Diagnosis Sensorineural hearing loss (SNHL) of both ears- Primary documented in this encounter Care Teams Sander [employer] Relationship Specialty Start Date End Date Jonathan Elliott DO [address] [place] [id number] PCP - General Internal Medicine 01/19/25 documented as of this encounter
--- NOTE | 2025-06-14 | XR_ITS ---
The [address] [address] Patient Name: XAVIER NEGRON MRN: [id number] date: 1955 Sex: F Assigned Patient Location: [facility] Current Patient Location: [facility] Accession/Order Number: [id number] Exam Date: 06/14/2025 10:22 Report Date: 06/14/2025 11:15 At the request of: EMILIE AGUILLON DO Procedure: XR shoulder RT min 2V RIGHT SHOULDER - 4 views CLINICAL HISTORY: Chronic right shoulder pain, without specific injury. M25.511 COMPARISON: None chest x-ray 03/11/2023 and right clavicle 01/10/2019 AP, Y, axillary and Grashey views were obtained. There is osteopenia. There is no acute fracture or dislocation. There is narrowing of the acromiohumeral interval that may indicate rotator cuff disease. There is continued narrowing of the glenohumeral joint space as well as sclerosis and hypertrophy at the humeral head. There is mild hypertrophy at the acromioclavicular joint and some deformity at the distal clavicle which was not present on the 2019 study. There are no significant soft tissue abnormalities. XR/XR shoulder RT min 2V IMPRESSION: OSTEOPENIA AND DEGENERATIVE CHANGES WITH POTENTIAL ROTATOR CUFF DISEASE. Impression dictated by: Lucero Bolton M.D. 06/14/2025 11:15 AM Dictation Location: [place] [address] Electronically authenticated by: [id number] Y Date: 06/14/2025 11:15
--- OUTSIDE RECORDS SUMMARY | 2025-06-14 10:21 | XMS_ITS | Clinical Summary ---
Author Organization [facility] Address [address] [place] [address] Phone Care Team Providers Care Tool Setter Name Role Phone Jonathan Elliott DO Primary Care Provider [phone] Social History Tobacco Use Types Packs/Day Years Used Date Smoking Tobacco: Never Assessed Comments Unknown Sex and Gender Information Value Date Recorded Sex Assigned at Not on file Legal Sex Female 3:00 PM EST Gender Identity Not on file Sexual Orientation Not on file Plan of Treatment Health Maintenance Due Date Last Done Comments CT Colonography 1955 Colonoscopy 1955 Colorectal Cancer Screening 1955 FIT-DNA (Cologuard) 1954 FIT 1954 Lipid Panel 1955 Sigmoidoscopy 1955 Yearly Adult Physical 1955 MMR Vaccines (1 of 1 - Stand russell series) 12/30/1955 Hepatitis C Screening 1972 DTaP/Tdap/Td Vaccines (1 - Tdap) 1976 Mammogram 1994 Pneumococcal Vaccine (1 of 1 - PCV) 2004 Zoster Vaccines (1 of 2) 2004 Bone Density Scan 12/30/2019 COVID-19 Vaccine (1 - 2023-2 5 season) 2025 Influenza Vaccine (#1) 2025 RSV High Risk: (Elderly (60+ ) or Population) (1 - 1-dose 75+ series) 2029 HIB Vaccines Aged Out No longer eligi ble based on patient's age to complete this topic HPV Vaccines Aged Out No longer eligi ble based on patient's age to complete this topic Hepatitis A Vaccines Aged Out No long er eligible based on patient's age to complete this topic Hepatitis B Vaccines Aged Out No long er eligible based on patient's age to complete this topic IPV Vaccines Aged Out No longer eligi ble based on patient's age to complete this topic Meningococcal Vaccine Aged Out No krystyna chris eligible based on patient's age to complete this topic Rotavirus Vaccines Aged Out No longer eligible based on patient's age to complete this topic Care Teams Tool Setter Relationship Specialty Start Date End Date Jonathan Elliott DO PCP - General 09/29/22
--- OUTSIDE RECORDS SUMMARY | 2025-06-14 10:21 | XMS_ITS | Encounter Summary ---
Author Organization [facility] Address [address] [place] [address] Care Team Providers Care Data Collection Technician Name Role Phone Jonathan Elliott DO Primary Care Provider [phone] Encounter Details Date Type Department Care Team (Late Contact Info) Description 08/13/2017 Abstract [facility] [address] [place] [address] Liza Borjas CCC-A [address] [place] [address] Social History Tobacco Use Types Packs/Day Years Used Date Smoking Tobacco: Never Assessed Comments Unknown Sex and Gender Information Value Date Recorded Sex Assigned at Not on file Legal Sex Female 6:41 PM EDT Gender Identity Not on file Sexual Orientation Not on file documented as of this encounter Plan of Treatment Upcoming Encounters Date Type Department Care Team (Late Contact Info) Description 07/25/2025 8:00 AM EST Clinical Support [facility] [address] [facility] [address] [place] [address] Liza Borjas CCC-A [address] [place] [address] documented as of this encounter Visit Diagnoses Not on filedocumented in this encounter Care Teams Data Collection Technician Relationship Specialty Start Date End Date Jonathan Elliott DO [address] [facility] [place] [address] PCP - General Internal Medicine 01/19/25 documented as of this encounter
--- OUTSIDE RECORDS SUMMARY | 2025-06-14 10:21 | XMS_ITS | Encounter Summary ---
Author Organization [facility] Address [address] [place] [address] Care Team Providers Care [employer] Industrial Arts Teacher Name Role Phone Jonathan Elliott DO Primary Care Provider [phone] Encounter Details Date Type Department Care Team (Late Contact Info) Description 01/31/2024 Abstract [facility] [address] [place] [address] Liza Borjas CCC-A [address] [place] [address] Social History Tobacco Use Types Packs/Day Years [...] Support [facility] [address] [facility] [address] [place] [address] Liza Borjas CCC-A [address] [place] [address] documented as of this encounter Visit Diagnoses Not on filedocumented in this encounter Care Teams [employer] Industrial Arts Teacher Relationship Specialty Start Date End Date Jonathan Elliott DO [address] [facility] [place] [address] PCP - General Internal Medicine 01/19/25 documented as of this encounter
--- OUTSIDE RECORDS SUMMARY | 2025-06-14 10:21 | XMS_ITS | Encounter Summary ---
Author Organization [facility] Address [address] [place] [address] Care Team Providers Care Fur Stretcher Name Role Phone Jonathan Elliott DO Primary Care Provider [phone] Encounter Details Date Type Department Care Team (Late st Contact Info) Description 04/13/2023 Abstract [facility] [address] [place] [address] Arlene Smith MA Social History Tobacco Use Types Packs/Day Years [...] Support [facility] [address] [facility] [address] [place] [address] Liza Borjas, [facility] [address] [place] [address] documented as of this encounter Visit Diagnoses Not on filedocumented in this encounter Care Teams Fur Stretcher Relationship Specialty Start Date End Date Jonathan Elliott DO [address] [facility] [place] [address] PCP - General Internal Medicine 01/19/25 documented as of this encounter
--- OUTSIDE RECORDS SUMMARY | 2025-06-14 10:21 | XMS_ITS | Encounter Summary ---
Author Organization [facility] Address [address] [place] [address] Care Team Providers Care Cops Name Role Phone Jonathan Elliott DO Primary Care Provider Encounter Details Date Type Department Care Team (Late Contact Info) Description 05/14/2023 Abstract [facility] [address] [place] [address] Liza Borjas CCC-A [address] [place] [address] Social History Tobacco Use Types Packs/Day Years [...] Support [facility] [address] [facility] [address] [place] [address] Liza Borjas CCC-A [address] [place] [address] documented as of this encounter Visit Diagnoses Not on filedocumented in this encounter Care Teams Cops Relationship Specialty Start Date End Date Jonathan Elliott DO [address] [place] [address] PCP - General Internal Medicine 01/19/25 documented as of this encounter
--- OUTSIDE RECORDS SUMMARY | 2025-06-14 10:21 | XMS_ITS | Encounter Summary ---
Author Organization [facility] Address [address] [place] [address] Care Team Providers Care Automation Controls Engineer Name Role Phone Jonathan Elliott DO Primary Care Provider [phone] Encounter Details Date Type Department Care Team (Late Contact Info) Description 02/26/2021 Abstract [facility] [address] [place] [address] Liza Borjas CCC-A [address] [place] [address] Social History Tobacco Use Types Packs/Day Years [...] [address] [facility] [address] [place] [address] Liza Borjas CCC-A [address] [place] [address] documented as of this encounter Visit Diagnoses Not on filedocumented in this encounter Care Teams Automation Controls Engineer Relationship Specialty Start Date End Date Jonatahn Elliott DO [address] [facility] [place] [address] PCP - General Internal Medicine 01/19/25 documented as of this encounter
--- OUTSIDE RECORDS SUMMARY | 2025-06-14 10:21 | XMS_ITS | Encounter Summary ---
Author Organization [facility] Address [address] [place] [address] Care Team Providers Care Cpas Name Role Phone Jonathan Elliott DO Primary Care Provider [phone] Encounter Details Date Type Department Care Team (Late Contact Info) Description 06/11/2025 Bamboo flowsheet [facility] [address] [facility] [address] [place] [address] Liza Borjas CCC-A [address] [place] [address] Social History Tobacco Use Types Packs/Day Years [...] Description 07/25/2025 8:00 AM EST Clinical Support [facility] [address] [facility] [address] [place] [address] Liza Borjas CCC-A [address] [place], [place] [id number] documented as of this encounter Visit Diagnoses Not on filedocumented in this encounter Care Teams Cpas Relationship Specialty Start Date End Date Jonathan Elliott DO [address] [facility] [address] PCP - General Internal Medicine 01/19/25 documented as of this encounter
--- OUTSIDE RECORDS SUMMARY | 2025-06-14 10:21 | XMS_ITS | Encounter Summary ---
Author Organization [facility] Address [address] [place] [address] Care Team Providers Care Terrazzo Finisher Name Role Phone Jonathan Elliott DO Primary Care Provider [phone] Encounter Details Date Type Department Care Team (Late st Contact Info) Description 05/16/2025 Telephone [facility] [address] [facility] [address] [place] [address] Arlene Smith MA Social History Tobacco Use Types Packs/Day Years Used Date Smoking Tobacco: Never Assessed Comments Unknown Sex and Gender Information Value Date Recorded Sex Assigned at Not on file Legal Sex Female 6:41 PM EDT Gender Identity Not on file Sexual Orientation Not on file documented as of this encounter Miscellaneous Notes * Telephone Encounter - Arlene Smith MA - 06/07/2025 1:02 PM EDT Aid is back from repair and in [place] office. Patient notified that aid is back from repair. Patient was told she could pick the aid up in [place] office on Wednesday. Reviewed office hours. * Telephone Encounter - ANGEL Barnard - 05/25/2025 6:33 PM EDT Right aid does not seem to be repaired. I had aid on laundry technician over 1 hour and there was still no charge to aid and aid would not turn on. Called [employer] - they will ambrocio a repair Reference #[id number]. Will call pt and tell her aid had to go back to repair * Telephone Encounter - ANGEL Barnard - 05/25/2025 3:52 PM EDT Aid back from repair. Called pt and left VM - told her she can vegetable picker aid after 1 in [place] office so I can restore settings to her aid. Cost is $325 at vegetable picker * Telephone Encounter - Arlene Smith MA - 05/17/2025 1:26 PM EDT Aid packaged and sent to [facility]list lab with tracking number [id number] * Telephone Encounter - Arlene Smith MA - 05/16/2025 11:57 AM EDT Patient brought in the right hearing aid stating that it will not charge. Patient states she has tried both sides of the laundry technician. I verified with the office laundry technician and hearing aid displays three redlights. I explained out of warranty service to patient. Patient approved the $325 service fee. Patient to be notified when I get the aid back from service. documented in this encounter Plan of Treatment Upcoming Encounters Date Type Department Care Team (Late st Contact Info) Description 07/25/2025 8:00 AM EST Clinical Support [facility] [address] [facility] [address] [place] [address] Liza Borjas CCC-A [address] [place] [address] documented as of this encounter Visit Diagnoses Not on filedocumented in this encounter Care Teams Terrazzo Finisher Relationship Specialty Start Date End Date Jonathan Elliott DO [address] [place] [address] PCP - General Internal Medicine 01/19/25 documented as of this encounter
--- OUTSIDE RECORDS SUMMARY | 2025-06-14 10:21 | XMS_ITS | Clinical Summary ---
Author Organization [facility] Address [address] [place] [address] Care Team Providers Care Scallop Binder Name Role Phone Jonathan Elliott DO Primary Care Provider [phone] Encounters Date Type Department Care Team Description 06/11/2025 11:15 AM EDT Clinical Support [facility] [address] [facility] [address] [place] [address] Liza Borjas CCC-A Sensorineural hearing loss (SNHL) of both ears (Primary Dx) 06/11/2025 Bamboo flowsheet [facility] [address] [facility] [address] [place] [address] Liza Borjas CCC-A 05/23/2025 Abstract [facility] [address] [facility] [place] [address] Liza Borjas CCC-A 05/16/2025 Telephone [facility] [address] [facility] [address] [place] [address] Arlene Smith MA from Last 3 Months Social History Tobacco Use Types Packs/Day Years Used Date Smoking Tobacco: Never Assessed Comments Unknown Sex and Gender Information Value Date Recorded Sex Assigned at Not on file Legal Sex Female 6:41 PM EDT Gender Identity Not on file Sexual Orientation Not on file Last Filed Vital Signs Vital Sign Reading Time Taken Comments Blood Pressure 140/80 12/19/2021 12:00 PM EDT Pulse - - Temperature - - Respiratory Rate - - Oxygen Saturation - - Inhaled Oxygen Concentration - - Weight 84.4 kg (186 lb) 01/07/2022 12:00 PM EDT Height 149.9 cm (4' 11 ) 12/19/2021 12:00 PM EDT Body Mass Index 37.57 12/19/2021 12:00 PM EDT Plan of Treatment Upcoming Encounters Date Type Department Care Team (Late st Contact Info) Description 07/25/2025 8:00 AM EST Clinical Support [facility] [address] [facility] [address] [place] [address] Liza Borjas, [facility] [address] [facility] [place] [address] Health Maintenance Due Date Last Done Comments CT Colonography 1954 Colonoscopy 1954 Colorectal Cancer Screening 1954 FIT-DNA 1954 FIT 1954 FOBT 1954 Sigmoidoscopy 1954 Mammogram 1994 Pneumococcal Vaccine: 65+ Ye ars (2 of 2 - PCV) 09/16/2016 09/16/2015, 08/07/2009 Influenza Vaccine (#1) 2025 , 06/26/2019, 06/06/2018, Additional history exists Insurance [place]ICARE [place] [place] Care Teams Scallop Binder Relationship Specialty Start Date End Date Jonathan Elliott DO [address] [place] [address] PCP - General Internal Medicine 01/19/25
--- OUTSIDE RECORDS SUMMARY | 2025-06-14 10:21 | XMS_ITS | Encounter Summary ---
Author Organization [facility] Address [address] [place] [address] Care Team Providers Care Road Roller Operator Name Role Phone Jonathan Elliott DO Primary Care Provider [phone] Encounter Details Date Type Department Care Team (Late Contact Info) Description 05/23/2025 Abstract [facility] [address] [place] [address] Liza Borjas CCC-A [address] [place] [address] Social History Tobacco Use Types Packs/Day Years [...] Support [facility] [address] [facility] [address] [place] [address] Liza Borjas CCC-A [address] [place] [address] documented as of this encounter Visit Diagnoses Not on filedocumented in this encounter Care Teams Road Roller Operator Relationship Specialty Start Date End Date Jonathan Elliott DO [address] [facility] [place] [address] PCP - General Internal Medicine 01/19/25 documented as of this encounter
--- OUTSIDE RECORDS SUMMARY | 2025-06-14 10:21 | XMS_ITS | Encounter Summary ---
Author Organization [facility] Address [address] [place] [address] Care Team Providers Care Canteen Operator Name Role Phone Jonathan Elliott DO Primary Care Provider [phone] Encounter Details Date Type Department Care Team (Late Contact Info) Description 07/03/2019 Abstract [facility] [address] [place] [address] Liza Borjas CCC-A [address] [place] [address] Social History Tobacco Use Types Packs/Day Years [...] Support [facility] [address] [facility] [address] [place] [address] Liza Borjas CCC-A [address] [place] [address] documented as of this encounter Visit Diagnoses Not on filedocumented in this encounter Care Teams Canteen Operator Relationship Specialty Start Date End Date Jonathan Elliott DO [address] [facility] [address] PCP - General Internal Medicine 01/19/25 documented as of this encounter
--- OUTSIDE RECORDS SUMMARY | 2025-06-14 10:21 | XMS_ITS | Encounter Summary ---
Author Organization [facility] Address [address] [place] [address] Care Team Providers Care Switch Repairer Name Role Phone Jonathan Elliott DO Primary Care Provider [phone] Encounter Details Date Type Department Care Team (Late Contact Info) Description 06/24/2016 Abstract [facility] [address] [place] [address] Liza Borjas CCC-A [address] [place] [address] Social History Tobacco Use Types Packs/Day Years [...] Support [facility] [address] [facility] [address] [place] [address] Liza Borjas CCC-A [address] [place] [address] documented as of this encounter Visit Diagnoses Not on filedocumented in this encounter Care Teams Switch Repairer Relationship Specialty Start Date End Date Jonathan Elliott DO [address] [facility] [place] [address] PCP - General Internal Medicine 01/19/25 documented as of this encounter
--- OUTSIDE RECORDS SUMMARY | 2025-06-14 10:21 | XMS_ITS | Encounter Summary ---
Author Organization [facility] Address [address] [place] [address] Care Team Providers Care Sanforizing Machine Operator Name Role Phone Jonathan Elliott DO Primary Care Provider [phone] Encounter Details Date Type Department Care Team (Late st Contact Info) Description 04/10/2023 Abstract [facility] [address] [place] [place] [address] Arlene Smith MA Social History [...] Support [facility] [address] [facility] [address] [place] [address] Liza Borjas, [facility] [address] [place] [address] documented as of this encounter Visit Diagnoses Not on filedocumented in this encounter Care Teams Sanforizing Machine Operator Relationship Specialty Start Date End Date Jonathan Elliott DO [address] [facility] [place] [address] PCP - General Internal Medicine 01/19/25 documented as of this encounter
--- OUTSIDE RECORDS SUMMARY | 2025-06-14 10:21 | XMS_ITS | Encounter Summary ---
Author Organization [facility] Address [address] [place] [address] Care Team Providers Care Tree Fruit And Nut Farming Supervisor Name Role Phone Jonathan Elliott DO Primary Care Provider Encounter Details Date Type Department Care Team (Late st Contact Info) Description 04/10/2023 Abstract [facility] [address] [facility] [address] [place] [address] Arlene Smith MA Social History Tobacco Use [...] [facility] [address] [facility] [address] [place] [address] Lzia Borjas, [facility] [address] [facility] [place] [address] documented as of this encounter Visit Diagnoses Not on filedocumented in this encounter Care Teams Tree Fruit And Nut Farming Supervisor Relationship Specialty Start Date End Date Jonathan Elliott DO [address] [facility] [place] [address] PCP - General Internal Medicine 01/19/25 documented as of this encounter
--- OUTSIDE RECORDS SUMMARY | 2025-06-14 10:21 | XMS_ITS | Encounter Summary ---
Author Organization [facility] Address [address] [place] [address] Care Team Providers Care Hotel Server Name Role Phone Jonathan Elliott DO Primary Care Provider [phone] Encounter Details Date Type Department Care Team (Late Contact Info) Description 02/26/2021 Abstract [facility] [address] [place] [address] Liza Borjas CCC-A [address] [place] [address] Social History Tobacco Use Types Packs/Day Years [...] Support [facility] [address] [facility] [address] [place] [address] Liza Borjas CCC-A [address] [place] [address] documented as of this encounter Visit Diagnoses Not on filedocumented in this encounter Care Teams Hotel Server Relationship Specialty Start Date End Date Jonathan Elliott DO [address] [facility] [place] [address] PCP - General Internal Medicine 01/19/25 documented as of this encounter
--- OUTSIDE RECORDS SUMMARY | 2025-06-14 10:22 | XMS_ITS | Clinical Summary ---
Author Organization [facility] Address [address] [place] [address] Care Team Providers Care Drop Wire Aligner Name Role Phone Unavailable Primary Care Provider Unavailabl e Source Comments The following information is NOT included in Care Everywhere downloads:Psychiatric notes, ECG results, Cardiac Rehab notes, Pulmonary Function notes, data from SmartForms (includes but not limited toPregnancy data,audiograms, eye exams, pre-surgical evaluation notes, well-child exam data).[facility] Immunizations Immunization Administration Dates Next Due Influenza, novel O9Y1-93, in jectable, preservative-free (EXG=680) 08/02/2009 Social History Tobacco Use Types Packs/Day Years Used Date Smoking Tobacco: Never Assessed Comments Unknown Sex and Gender Information Value Date Recorded Sex Assigned at Not on file Legal Sex Female 8:10 PM EDT Gender Identity Not on file Sexual Orientation Not on file Last Filed Vital Signs Vital Sign Reading Time Taken Comments Blood Pressure 129/69 06/08/2024 4:16 AM EDT Pulse 67 06/08/2024 4:16 AM EDT Temperature 36.2 C (97.1 F) 06/07/2024 10:15 PM EDT Respiratory Rate 18 06/08/2024 4:16 AM EDT Oxygen Saturation 97% 06/08/2024 4:16 AM EDT Inhaled Oxygen Concentration - - Weight - - Height - - Body Mass Index - - Plan of Treatment Health Maintenance Due Date Last Done Comments Colonoscopy 1954 Hepatitis C Antibody 1972 Tdap Booster 1972 Hepatitis A (HAV) Vaccine (o ptional start 19+ years) 1973 Mammography 1994 CRC Screening 12/30/1999 Cholesterol 12/30/1999 Cologuard (Stool DNA) 12/30/1999 FIT 12/30/1999 Pneumococcal Vaccine(s) (50+ yrs) (1 of 1 - PCV) 2004 Shingles (RZV) Vaccine (1 of 2) 2004 Hepatitis B (HBV) Vaccine (o ptional start 60+ years) 2014 Bone Densitometry 12/30/2019 Annual Wellness Visit (G0438) 01/11/2022 COVID-19 Vaccine (4 - 2024-2 6 season) 2025 07/09/2021, 10/16/2020, 09/19/2020 Influenza Vaccine (#1) 2025 08/02/2009 RSV vaccine (adult) (1 - 1-d ose 75+ series) 2029 Pap Smear Discontinued Insurance [facility] [place] [facility] Address: [address] [place] [address]
--- OUTSIDE RECORDS SUMMARY | 2025-06-14 10:22 | XMS_ITS | Patient Health Record ---
Author Organization [facility] [place] Address [address] [place] [address] Care Team Providers Care Boilermaker Name Role Phone Jonathan Elliott DO Primary Care Provider Unavaila ble Allergies Allergen (clinical drug ingredient) Drug/Non Drug Allergy documented on EMR Reaction Allergy Type Onset Date Status hydroxychloroquine Plaquenil Unknown Drug Allergy Active Tape Unknown Allergy Active morphine Morphine Unknown Drug Allergy Active Reason For Referral No Information Medications Medication SIG (Take, Route, Frequency, Duration) Notes Start Date End Date Status Ozempic Active Pantoprazole Sodium 40 MG 1 tablet Orally Once a day Active amLODIPine Besylate 5 MG 1 tablet Orally Once a day Active Probiotic Active Anoro Ellipta 62.5-25 MCG/ACT 1 puff Inhalation Once a day Active Simponi 50 MG/0.5ML 0.5 mL Subcutaneous Active Aspirin 81 81 MG 1 tablet Orally Once a day Active traMADol HCl 50 MG 1 tablet as needed O rally Once a day Active Atorvastatin Calcium 40 MG 1 tablet Orally Once a day Active traZODone HCl 50 MG 1 tablet at bedtime as needed Orally Once a day Active Calcium 500 MG 1 tablet with meals Orally Twice a day Active Clopidogrel Bisulfate 75 MG 1 tablet Orally Once a day A ctive Fish Oil 1200 MG 1 capsule Orally Onc e a day Active Fluticasone Propionate 50 MCG/ACT 1 spray in each nostril Nasally Once a day Active Lisinopril 20 MG 1 tablet Orally Once a day Active Metoprolol Succinate ER 100 MG 1 tablet Orally Once a day A ctive Social History Tobacco Use: Social History Observation Description Date Details (start date - stop date) Never Smoker NA - NA Tobacco Use/Smoking Question Answer Notes Patient is a nonsmoker Problems Problem Type SNOMED Code ICD Code Onset Dates Problem Status W/U Status Risk Notes Problem Acquired hammer toe of right foot ([id number] [id number]) Other hammer toe(s) (acquired), right foot (M20.41) Active confirmed Plan Of Treatment No Information Insurance Providers Payer Name Payer Address Payer Phone Subscriber Number Group Number Insured Name Patient Relationship to Insured Coverage Start Date Coverage End Date MEDICARE [place] [phone] [id number] Reba Gregory Self - patient is the insured 1 MMO MEDICARE [employer] T [address] [place] [address] [id number] Reba Gregory Self - patient is the insured 2 Medical (General) History Medical History History ICD Code blood clot GERD (gastroesophageal reflux disease) K 21.9 Raynaud phenomenon I73.00 Rheumatoid arthritis M06.9 Hyperlipidemia E78.5 Cervical spondylitis M46.92 Arthropathy, unspecified M12.9 Arthritis M19.90 Hammertoe of left foot M20.42 Hammertoe of right foot M20.41 Sleep apnea G47.30 Chronic bronchitis J42 Surgical History Surgery Date(Month/Year) left total knee replacement left wrist ganglion bilateral myringotomy and tube placement right knee mensicus abdominal scar revision bilateral nipple/areola revision bilateral TRAM reconstruction bilateral ligation bilateral mastompexy bialteral carpal tunnel complete hysterectomy bilateral breast augmentation tubal ligation tonsilectomy
--- OUTSIDE RECORDS SUMMARY | 2025-06-14 10:22 | XMS_ITS | Clinical Summary ---
Author Organization [facility] Address [address], [address] [place] [address] Care Team Providers Care Stunt Driver Name Role Phone Unavailable Primary Care Provider Unavailabl e Allergies Active Allergy Reactions Criticality Noted Date Comments Adhesive Tape 06/30/2011 Demerol 06/30/2011 Medications aspirin 81 MG EC tablet Take 81 mg by mouth daily. Active FISH OIL by Does not apply route. Active fluticasone (FLONASE) 50 MCG/ACT nasal spray 1 spray by Nasal route daily. 1 Bottle 12 09/15/2012 Active pravastatin (PRAVACHOL) 40 MG tablet Take 1 tablet by mouth daily. 90 tablet 1 09/15/2012 Active traMADol (ULTRAM) 50 MG tablet Take 1 tablet by mouth every 6 hours as needed. 90 tablet 09/15/2012 Active lisinopril-hydr ochlorothiazide (PRINZIDE;ZESTO RETIC) 10-12.5 MG per tablet Take 1 tablet by mouth daily. 90 tablet 09/15/2012 Active celecoxib (CELEBREX) 200 MG capsule Take 1 capsule by mouth daily. 90 capsule 09/15/2012 Active omeprazole (PRILOSEC) 20 MG capsule Take 1 capsule by mouth daily. 90 capsule 09/15/2012 Active fluticasone-judith meterol (ADVAIR DISKUS) 250-50 MCG/DOSE AEPB Inhale 1 puff into the lungs every 12 hours. 3 each 1 09/15/2012 Active albuterol (PROVENTIL;VENT JUAN) 90 MCG/ACT inhalerIndicati ons:Chronic airway obstruction, not elsewhere classified Inhale 2 puffs into the lungs every 4 hours as needed for Wheezing. 1 Inhaler 12 09/15/2012 Active Active Problems Problem Noted Date Diagnosed Date OME (otitis media with effusion) 11/10/2012 Chronic airway obstruction, not elsewhere classi fied 06/30/2011 Overview (06/15/2023): Replacing diagnoses that were inactivated after the 06/13/2023 regulatory import Esophageal reflux 06/30/2011 Essential hypertension, benign 06/30/2011 Pure hypercholesterolemia 06/30/2011 Rheumatoid arthritis 06/30/2011 Stricture and stenosis of cervix 06/30/2011 Immunizations Immunization Administration Dates Next Due Influenza Virus Vaccine 05/21/2012 Pneumococcal Conjugate 7-valent (Prevnar7) 08/07 Family History Medical History Relation Name Comments Heart Disease Father High Blood Pressure Mother High Cholesterol Mother Relation Name Status Comments Father Mother Social History Tobacco Use Types Packs/Day Years Used Date Smoking Tobacco: Former Alcohol Use Standard Drinks/Week Comments Yes 0 (1 standard drink = 0.6 oz pur e alcohol) rarely Comments No Sex and Gender Information Value Date Recorded Sex Assigned at Not on file Legal Sex Female 11:45 AM EST Gender Identity Not on file Sexual Orientation Not on file Last Filed Vital Signs Vital Sign Reading Time Taken Comments Blood Pressure 140/70 01/03/2013 10:21 AM EDT Pulse 67 11/10/2012 11:52 AM EST Temperature 36.6 C (97.8 F) 11/10/2012 11:15 AM EST Respiratory Rate 16 11/10/2012 11:52 AM EST Oxygen Saturation 94% 11/10/2012 11:52 AM EST Inhaled Oxygen Concentration - - Weight 99.3 kg (219 lb) 01/03/2013 10:21 AM EDT Height 165.1 cm (5' 5 ) 01/03/2013 10:21 AM EDT Body Mass Index 36.44 01/03/2013 10:21 AM EDT Plan of Treatment Not on file
--- OUTSIDE RECORDS SUMMARY | 2025-06-14 10:22 | XMS_ITS | Encounter Summary ---
Author Organization [facility] Address [address], [address] [place] [address] Care Team Providers Care Flight Readiness Technician Name Role Phone Aydee Wells MD Primary Care Provider [phone] Encounter Details Date Type Department Care Team (Late st Contact Info) Description 11/11/2012 Post-op Telephone [facility] General Surgery [address] [place] [id number] Adela Moise, RN Social History Tobacco Use Types Packs/Day Years [...] as of this encounter Plan of Treatment Not on file documented as of this encounter Visit Diagnoses Not on filedocumented in this encounter Care Teams Flight Readiness Technician Relationship Specialty Start Date End Date Aydee Wells MD [address] [place], [place] [id number] PCP - General Family Medicine 07/04/11 03/14/13 documented as of this encounter
== END 2025-06-14 10:20 | disposition home or self-care (01) ==
LOC: RAD 10:19
PROVIDERS: PCP Internal Medicine; Visit Provider Physician Assistant
DX: M25.511 Pain in right shoulder (principal); M85.88 Other specified disorders of bone density and structure, other site
CPT/HCPCS: 73030